=== PATIENT | female | born 1970 | race Caucasian/White ===

== ENCOUNTER 2019-12-19 11:19 | Emergency (ER) | payer MEDICAID, SELFPAY ==
--- NOTE | 2019-12-19 | ECG_ITS ---
Test Reason : HYPERGLYCEMIA Blood Pressure : / mmHG Vent. Rate : 067 BPM Atrial Rate : 067 BPM P-R Int : 206 ms QRS Dur : 090 ms QT Int : 404 ms P-R-T Axes : 052 -33 033 degrees QTc Int : 426 ms Normal sinus rhythm Left axis deviation Abnormal ECG When compared with ECG of 12-JUL-2019 10:59, QRS axis Shifted left Referred By: Zee Delacruz Electronically Signed By:MEGA DE LEON
[2019-12-19 11:25] VITALS: BP 101/65; BP 138/80; PULSE 68; PULSE 69; RESP 16; TEMP 37.3; O2SAT 94; O2SAT 99; BMI 51.7
--- NOTE | 2019-12-19 11:48 | ED_ITS ---
HPI - Abdominal Pain General Chief Complaint: Abdominal Pain Stated Complaint: hyperglycemia Time Seen by Provider: 12/19/19 11:48 Source: patient Mode of arrival: ambulatory Limitations: no limitations History of Present Illness HPI narrative: sent from Cardiology office BS have been elevated due to steroid injections in back has been running high since yesterday, has known AAA - repair on 01/01 but the patient continues to c/o pain and the patient notes that they want to work her up for gallstones vs stone in pancreas and also control blood sugars MD elicited complaint: abdominal pain Onset (ago): week(s) (2) Pain Consistency: constant Location: epigastric, periumbilical and LUQ Severity: moderate Quality: cramping Migration to: no migration Exacerbating factors: movement Relieving factors: nothing Related Data Previous Rx's Medication Instructions Recorded cyclobenzaprine 10 mg PO TID PRN #14 tab 12/19/19 insulin glargine [Lantus Solostar 20 unit SUBCUT QPM #15 ml 12/19/19 U-100 Insulin] Allergies Allergy/AdvReac Type Severity Reaction Status Date / Time haloperidol [From HALDOL] Allergy Unknown UNKNOWN Unverified 12/05/19 19:46 morphine [MORPHINE] Allergy Unknown UNKNOWN Unverified 12/05/19 19:46 tetracycline Allergy Unknown hives Verified 11/07/19 00:00 duramorph/derivative or Allergy Unknown hives Uncoded 11/07/19 00:00 morphi Review of Systems Review of Systems Constitutional : No Weight loss, No Fever, No Chills ENT/Mouth :No sore throat, No Rhinorrhea Eyes: No Eye Pain, No Swelling Cardiovascular : No Chest Pain, No SOB, No Dyspnea on Exertion, No Orthopnea, No Edema Respiratory : No Cough, No Sputum Gastrointestinal : Positive Nausea, Positive Vomiting, positive Diarrhea, po sitive abdominal Pain, No Hematochezia, No Melena Genitourinary : No Dysuria, No Urinary Frequency No Urgency, No Flank Pain Musculoskeletal : No joint pain, No Myalgias, No Joint Swelling Skin : No Skin Lesions, No rash Neuro : No Weakness, No Numbness, No Headache Psych : No Anxiety/Panic, No Depression Heme/Lymph: No Bruising, No Bleeding,No Lymphadenopathy Endocrine : + elevated blood sugars reading HI Physical Exam Vital Signs and I&O and Narrative: Vital Signs and I&O: Vital Signs Temp 99.1 F 12/19/19 11:25 Pulse 69 12/19/19 11:25 Resp 16 12/19/19 11:25 BP 101/65 12/19/19 11:25 Pulse Ox 94 12/19/19 11:25 Intake & Output 12/18/19 12/19/19 12/19/19 18:59 06:59 18:59 Weight 145.367 kg Body Mass Index 51.7 Const: General: cooperative and no acute distress Nutritional Appearance: obese Orientation/consciousness: patient oriented x3 HENMT: Head: Yes normal to inspection Mouth: Normal oral and palatal mucosa present Eyes: General: appearance normal, both eyes and all related structures Pupils: Equal, round and reactive pupils present Neck: Neck: Yes normal visual inspection Resp: Effort & Inspection: normal respiratory effort and able to speak in complete sentences Auscultation: clear to auscultation bilaterally Cardio: Rate: regular rate Rhythm: regular rhythm Peripheral pulses: Peripheral pulses 2+ throughout GI: Palpation (GI): Soft to palpation and Tenderness to palpation present (GI) (mild RUQ no rebound or guarding) Skin: General skin exam: no rashes or lesions noted Neuro: General: patient oriented x3 Cranial nerves: Yes Equal, round and reactive pupils present Motor exam (neuro): 5/5 motor strength present throughout Sensory Exam: Normal double simultaneous stimulation for sensation Extrem: General: Yes no pedal edema Psych: Appearance: grossly normal Mental Status: mental status grossly normal Course Reevaluation(s) Reevaluation #1: appropriate response to insulin down to 300s, no signs of GB infection, not toxic, wants to eat, will discuss with CM for home VNA services for diabetic teaching, I do not think she has the ability to do sliding scale at this time, will start on 20 units lantus and continue metformin, she has glucometer and test strips at home MDM - Abdominal Pain MDM Narrative Medical decision making narrative: patient with known aortic aneurysm due for repair but her BS have been elevated and she c/o epigastric and RUQ pain sent for BBS control as well as CT scan to evaluate for cholecystitis vs pancreatic duct stone, she is not toxic, abdomen is not acute at this time, IVF, IV insulin, dispo per results and findings Lab Data Result diagrams: 12/19/19 13:03 12/19/19 13:03 Labs: Lab Results 12/19/19 12/19/19 12/19/19 Range/Units 11:49 13:03 13:03 WBC 6.4 (4.8-10.8) X10*3/uL RBC 5.26 (4.20-5.50) X10*6/uL Hgb 14.3 (12.0-16.0) g/dl Hct 45.3 (37-47) % MCV 86.1 (80-98) fL MCH 27.2 (27.0-33.0) pg MCHC 31.6 (31.0-35.0) g/dl RDW 13.8 (11.0-16.0) % Plt Count 294 (160-400) X10*3/uL Immature Gran % (Auto) 1.7 H (0.0-0.4) % Neut % (Auto) 54.4 (45-73) % Lymph % (Auto) 31.0 (20-40) % Luce % (Auto) 10.1 (2-11) % Eos % (Auto) 1.9 (0-4) % Baso % (Auto) 0.9 (0-2) % Neut # (Auto) 3.5 (2.0-8.3) X10*3/uL Lymph # (Auto) 2.0 (1.2-4.9) X10*3/uL Luce # (Auto) 0.7 (0.1-1.2) X10*3/uL Eos # (Auto) 0.1 (0.0-0.4) X10*3/uL Baso # (Auto) 0.1 (0.0-0.2) X10*3/uL Abs Immat Gran (auto) 0.11 H (0.00-0.03) X10*3/uL Absolute Nucleated RBC 0.050 H (0.0-0.012) X10*3/uL Nucleated RBC % (auto) 0.8 H (0.0-0.2) /100WBC Hold Blue Top SEE NOTE Sodium (135-145) mmol/L Potassium (3.3-5.1) mmol/l Chloride (96-108) mmol/L Carbon Dioxide (22-29) mmol/L Anion Gap (12-20) BUN (9-16) mg/dL Creatinine (0.5-1.4) mg/dL Estim Creat Clear Calc Estimated GFR POC Glucose 598 H* (60-115) mg/dL Random Glucose (60-115) mg/dL Lactic Acid (0.5-2.0) mmol/L Calcium (8.4-10.2) mg/dL Magnesium (1.6-2.6) mg/dL Total Bilirubin (0.0-1.0) mg/dL Direct Bilirubin (0.0-0.5) mg/dL AST (5-31) U/L ALT (0-31) U/L Alkaline Phosphatase (39-117) U/L Total Protein (6.5-8.0) g/dL Albumin (3.5-5.0) g/dL Lipase (8-78) U/L Urine Color Urine Appearance Urine pH (5.0-8.0) Ur Specific [place] (1.005-1.025) Urine Protein (NEG-TRACE) MG/DL Urine Glucose (UA) (NEG) MG/DL Urine Ketones (NEG) MG/DL Urine Blood (NEG) Urine Nitrite (NEG) Ur Leukocyte Esterase (NEG) Urine RBC (0) /HPF Urine WBC (0-4) /HPF Ur Squamous Epith Cells /LPF Urine Bacteria /LPF Urine Yeast /HPF Acetone, Qual (Negative) 12/19/19 12/19/19 12/19/19 Range/Units 13:03 13:03 13:13 WBC (4.8-10.8) X10*3/uL RBC (4.20-5.50) X10*6/uL Hgb (12.0-16.0) g/dl Hct (37-47) % MCV (80-98) fL MCH (27.0-33.0) pg MCHC (31.0-35.0) g/dl RDW (11.0-16.0) % Plt Count (160-400) X10*3/uL Immature Gran % (Auto) (0.0-0.4) % Neut % (Auto) (45-73) % Lymph % (Auto) (20-40) % Luce % (Auto) (2-11) % Eos % (Auto) (0-4) % Baso % (Auto) (0-2) % Neut # (Auto) (2.0-8.3) X10*3/uL Lymph # (Auto) (1.2-4.9) X10*3/uL Luce # (Auto) (0.1-1.2) X10*3/uL Eos # (Auto) (0.0-0.4) X10*3/uL Baso # (Auto) (0.0-0.2) X10*3/uL Abs Immat Gran (auto) (0.00-0.03) X10*3/uL Absolute Nucleated RBC (0.0-0.012) X10*3/uL Nucleated RBC % (auto) (0.0-0.2) /100WBC Hold Blue Top Sodium 131 L (135-145) mmol/L Potassium 4.9 (3.3-5.1) mmol/l Chloride 93 L (96-108) mmol/L Carbon Dioxide 28 (22-29) mmol/L Anion Gap 15 (12-20) BUN 13 (9-16) mg/dL Creatinine 1.24 (0.5-1.4) mg/dL Estim Creat Clear Calc 82.0 Estimated GFR 46 POC Glucose (60-115) mg/dL Random Glucose 694 H* (60-115) mg/dL Lactic Acid 1.1 (0.5-2.0) mmol/L Calcium 9.5 (8.4-10.2) mg/dL Magnesium 2.1 (1.6-2.6) mg/dL Total Bilirubin 0.2 (0.0-1.0) mg/dL Direct Bilirubin < 0.2 (0.0-0.5) mg/dL AST 12 (5-31) U/L ALT 13 (0-31) U/L Alkaline Phosphatase 101 (39-117) U/L Total Protein 7.1 (6.5-8.0) g/dL Albumin 3.7 (3.5-5.0) g/dL Lipase 22 (8-78) U/L Urine Color YELLOW Urine Appearance CLEAR Urine pH 6.0 (5.0-8.0) Ur Specific [place] <= 1.005 (1.005-1.025) Urine Protein NEG (NEG-TRACE) MG/DL Urine Glucose (UA) >=1000 H (NEG) MG/DL Urine Ketones 15 (NEG) MG/DL Urine Blood TRACE (NEG) Urine Nitrite NEG (NEG) Ur Leukocyte Esterase NEG (NEG) Urine RBC 5-9 H (0) /HPF Urine WBC 5-9 H (0-4) /HPF Ur Squamous Epith Cells 1+ /LPF Urine Bacteria TRACE /LPF Urine Yeast TRACE /HPF Acetone, Qual Small H (Negative) 12/19/19 12/19/19 Range/Units 14:06 15:35 WBC (4.8-10.8) X10*3/uL RBC (4.20-5.50) X10*6/uL Hgb (12.0-16.0) g/dl Hct (37-47) % MCV (80-98) fL MCH (27.0-33.0) pg MCHC (31.0-35.0) g/dl RDW (11.0-16.0) % Plt Count (160-400) X10*3/uL Immature Gran % (Auto) (0.0-0.4) % Neut % (Auto) (45-73) % Lymph % (Auto) (20-40) % Luce % (Auto) (2-11) % Eos % (Auto) (0-4) % Baso % (Auto) (0-2) % Neut # (Auto) (2.0-8.3) X10*3/uL Lymph # (Auto) (1.2-4.9) X10*3/uL Luce # (Auto) (0.1-1.2) X10*3/uL Eos # (Auto) (0.0-0.4) X10*3/uL Baso # (Auto) (0.0-0.2) X10*3/uL Abs Immat Gran (auto) (0.00-0.03) X10*3/uL Absolute Nucleated RBC (0.0-0.012) X10*3/uL Nucleated RBC % (auto) (0.0-0.2) /100WBC Hold Blue Top Sodium (135-145) mmol/L Potassium (3.3-5.1) mmol/l Chloride (96-108) mmol/L Carbon Dioxide (22-29) mmol/L Anion Gap (12-20) BUN (9-16) mg/dL Creatinine (0.5-1.4) mg/dL Estim Creat Clear Calc Estimated GFR POC Glucose 495 H* 388 H* (60-115) mg/dL Random Glucose (60-115) mg/dL Lactic Acid (0.5-2.0) mmol/L Calcium (8.4-10.2) mg/dL Magnesium (1.6-2.6) mg/dL Total Bilirubin (0.0-1.0) mg/dL Direct Bilirubin (0.0-0.5) mg/dL AST (5-31) U/L ALT (0-31) U/L Alkaline Phosphatase (39-117) U/L Total Protein (6.5-8.0) g/dL Albumin (3.5-5.0) g/dL Lipase (8-78) U/L Urine Color Urine Appearance Urine pH (5.0-8.0) Ur Specific [place] (1.005-1.025) Urine Protein (NEG-TRACE) MG/DL Urine Glucose (UA) (NEG) MG/DL Urine Ketones (NEG) MG/DL Urine Blood (NEG) Urine Nitrite (NEG) Ur Leukocyte Esterase (NEG) Urine RBC (0) /HPF Urine WBC (0-4) /HPF Ur Squamous Epith Cells /LPF Urine Bacteria /LPF Urine Yeast /HPF Acetone, Qual (Negative) ECG Data Attestation: I personally reviewed and interpreted this ECG as follows: ECG interpretation date: 12/19/19 ECG interpretation time: 12:47 Interpretation: NSR at 67 normal p waves 1st degree AVB, normal qrs, left axis, no ischemia, normal ST t waves Discharge Plan Discharge Clinical Impression: Gallstones, Hyperglycemia Patient Disposition: Home, Self-Care Instructions: Gallstones (ED), Diabetic Hyperglycemia (ED) Additional Instructions: check your blood sugars before every meal and hour of sleep, continue your medications, will start on lantus injection to control blood sugars, you need to see your doctor and [employer]. if you feel weak and shaky check your blood sugar and eat a sugary carbohydrate meal, call 911, start your lantus tomorrow night 12/19 Prescriptions: New Lantus Solostar U-100 Insulin 100 unit/mL (3 mL) insulin pen 20 unit subcut QPM Qty: 15 RF: 1 cyclobenzaprine 10 mg tablet 10 mg PO TID PRN (Reason: muscle spasm) Qty: 14 RF: 0 Referrals: [place] [Primary Care Provider] - 12/23/19 [facility] Past Medical History Attestation statement: The following information was validated with the patient. Medical History ADHD Aortic aneurysm Arthritis Asthma Diabetes Gallstone HTN (hypertension) Migraine PTSD (post-traumatic stress disorder) Schizo affective schizophrenia Sleep apnea Umbilical hernia Surgical History Tubal ligation status Social History Social History Alcohol intake: former Smoking Status: Current every day smoker Smoked in Last 30 Days: Yes Use of substances other than those prescribed or required for medical reasons: No Any prior treatment program specific to substance use: No Advance Directives: No Advance Directives Information Provided: No
[2019-12-19 12:40] LABS: Glucose, Whole Blood 598 mg/dL (60-115)
[2019-12-19] MEDS: ondansetron HCL 4 MG/2 ML VIAL IVPUSH (13:22)
[2019-12-19 13:24] LABS: Glucose Urine UA >=1000 MG/DL (NEG); Leukocyte Esterase Urine NEG (NEG); Nitrite Urine NEG (NEG); Specific Gravity - Urine <= 1.005 (1.005-1.025); Urine Blood TRACE (NEG); Urine Ketones 15 MG/DL (NEG); Urine Protein NEG (NEG-TRACE)
[2019-12-19 13:25] LABS: Appearance Urine CLEAR; Color Urine YELLOW
[2019-12-19 13:25] LABS: MANUAL DIFF FLAG SCAN
[2019-12-19 13:27] LABS: Basophils Absolute Auto 0.1 X10*3/uL (0.0-0.2); Basophils Percent Auto 0.9 % (0-2); Eosinophils Absolute Auto 0.1 X10*3/uL (0.0-0.4); Eosinophils Percent Auto 1.9 % (0-4); Hematocrit 45.3 % (37-47); Hemoglobin 14.3 g/dl (12.0-16.0); Imm Gran Abs Auto 0.11 X10*3/uL (0.00-0.03); Imm Gran Pct Auto 1.7 % (0.0-0.4); Mean Corpuscular HGB Conc 31.6 g/dl (31.0-35.0); Mean Corpuscular Hemoglobin 27.2 pg (27.0-33.0); Mean Corpuscular Volume 86.1 fL (80-98); Monocytes Absolute Auto 0.7 X10*3/uL (0.1-1.2); Monocytes Percent Auto 10.1 % (2-11); NRBC Pct Auto 0.8 /100WBC (0.0-0.2); Neutrophils Absolute Auto 3.5 X10*3/uL (2.0-8.3); Neutrophils Percent Auto 54.4 % (45-73); Platelet Count 294 X10*3/uL (160-400); Red Blood Count 5.26 X10*6/uL (4.20-5.50); Red Cell Distribution Width 13.8 % (11.0-16.0); White Blood Count 6.4 X10*3/uL (4.8-10.8)
[2019-12-19 13:32] LABS: PLT ABN DIST 1
[2019-12-19 13:33] LABS: SCAN SMEAR FLAG NO
[2019-12-19 13:49] LABS: Squamous Epithelial Cell Urine 1+ /LPF; UACC CULT YES
[2019-12-19 13:52] LABS: Lactic Acid 1.1 mmol/L (0.5-2.0)
[2019-12-19 14:03] LABS: Alanine Aminotransferase 13 U/L (0-31); Albumin Level 3.7 g/dL (3.5-5.0); Alkaline Phosphatase 101 U/L (39-117); Anion Gap 15 (12-20); Aspartate Amino Transferase 12 U/L (5-31); Bilirubin Direct < 0.2 mg/dL (0.0-0.5); Bilirubin Total 0.2 mg/dL (0.0-1.0); Blood Urea Nitrogen 13 mg/dL (9-16); Calcium 9.5 mg/dL (8.4-10.2); Carbon Dioxide 28 mmol/L (22-29); Chloride 93 mmol/L (96-108); Estimated Glomerular Filt Rate 46; Glucose Random 694 mg/dL (60-115); Lipase 22 U/L (8-78); Magnesium 2.1 mg/dL (1.6-2.6); Potassium 4.9 mmol/l (3.3-5.1); Sodium 131 mmol/L (135-145); Total Protein 7.1 g/dL (6.5-8.0)
[2019-12-19 14:09] LABS: Glucose, Whole Blood 495 mg/dL (60-115)
--- NOTE | 2019-12-19 15:00 | CT_ITS ---
EXAMINATION: CT OF THE ABDOMEN AND PELVIS WITHOUT IV CONTRAST CLINICAL INFORMATION: Abdominal pain COMPARISON: Previous CT of the abdomen and pelvis 12/16/2019 TECHNIQUE: Axial images through the abdomen and pelvis without oral or IV contrast. Sagittal and coronal reconstructions on the technologist workstation were performed. Patient dose 128 7 mg/cm. This CT examination was performed using dose optimization techniques as appropriate, variously including the following: *Automated exposure control *Adjustment of mA and/or kV according to patient size (this includes techniques or standardized protocols for targeted exams where dose is matched to indication/reason for exam; i.e. extremities or head) *Use of iterative reconstruction technique FINDINGS: The lung bases are clear. LIVER, GALLBLADDER, AND BILIARY TREE: Liver is within normal size and smooth in contour. There is no focal hepatic parenchymal lesion or intrahepatic ductal dilatation. There is a large gallstone in the gallbladder. The gallbladder does not appear distended. No gallbladder wall thickening or pericholecystic fluid is seen. PANCREAS: Unremarkable. SPLEEN: Normal in size. Several small splenules left upper quadrant, all under 1 cm. ADRENAL GLANDS: Unremarkable. KIDNEYS AND URETERS: The kidneys are normal in size, shape, and attenuation. No hydronephrosis, hydroureter, or calculi seen. No perinephric stranding. BLADDER: Unremarkable. GASTROINTESTINAL TRACT: There is no bowel obstruction or inflammatory changes in the bowel or mesentery. The appendix is normal. There is no ascites or fluid collection. ABDOMINAL WALL: There is a small umbilical hernia containing fat. There are small inguinal hernias containing fat, left greater than right.. LYMPH NODES: No lymphadenopathy. VASCULAR: There is tortuous abdominal aorta with infrarenal abdominal aortic aneurysm again demonstrated measuring approximately 4.7 x 4.8 cm. This is similar to previous exam. The adjacent soft tissues are normal. PELVIC VISCERA: Unremarkable. OSSEOUS STRUCTURES: No acute bony abnormality. IMPRESSION: Stable appearance to the abdominal aortic aneurysm. Large gallstone in the gallbladder. No CT evidence of cholecystitis.
[2019-12-19 15:27] LABS: Acetone, serum QL Small (Negative)
[2019-12-19 15:33] LABS: Bacteria Urine TRACE /LPF
[2019-12-19 15:40] LABS: Glucose, Whole Blood 388 mg/dL (60-115)
[2019-12-19] MEDS: 0.9 % Sodium Chloride 500 ML 1000 ML IV (15:58)
--- NOTE | 2019-12-19 16:40 | MHC.CM.PN ---
Received case management consult from Dr Delacruz. Patient came to er due to hyperglycemia. Patient was recently diagnosed as diabetic. Met with patient in regards to d/c planning. Patient lives alone, ambulates with a walker/cane, and had no services prior to coming to ER. [place] [facility] [place]. Patient is agreeable to VNA referral. [employer] is down at this time. Will reach out to VNA agencies tomorrow to get VNA arranged. Dr Delacruz aware. Continue to monitor for d/c needs.
[2019-12-19] MEDS: Insulin Glargine,Hum.rec.anlog 100 UNIT/ML 10 ML VIAL 20 UNIT SUBCUT (16:50)
--- NOTE | 2019-12-19 17:50 | PC.NURSE ---
PT FEELING BETTER PLAN IS FOR DISCHARGE
[2019-12-19 17:56] LABS: Glucose, Whole Blood 346 mg/dL (60-115)
--- NOTE | 2019-12-20 09:17 | MHC.CM.ED ---
[facility] Referral broadcasted in [facility] [employer]. [facility] accept patient. . fax: [phone].
--- NOTE | 2019-12-20 10:01 | MHC.CM.ED ---
Received telephone call from [facility]. Patient's insurance will not authorize home care. Anjali at [facility] aware and will follow with up patient.
== END 2019-12-19 18:41 | disposition home or self-care (01) ==
PROVIDERS: Emergency Provider Emergency Medicine
DX: K80.80 Other cholelithiasis without obstruction (principal); E11.65 Type 2 diabetes mellitus with hyperglycemia; I10 Essential (primary) hypertension; F17.200 Nicotine dependence, unspecified, uncomplicated
CPT/HCPCS: 36415; 74176; 80048; 80076; 81001; 82009; 82947; 83605; 83690; 83735; 85025; 87086; 93005; 93010; 96374; 96375; 96376; 99284; 99285; J2405

== ENCOUNTER → 2020-01-02 13:15 | Outpatient (BNVA) | payer MEDICAID, SELFPAY | PROVIDERS: PCP Registered Nurse; Visit Provider Surgery Vascular Surgery | DX: I71.4 Abdominal aortic aneurysm, without rupture (principal) | CPT/HCPCS: 99203 ==

== ENCOUNTER 2020-01-11 07:52 | Emergency (ER) | payer MEDICAID, SELFPAY ==
[2020-01-11 08:00] VITALS: BP 102/67; BP 112/76; PULSE 84; RESP 18; TEMP 37; O2SAT 94; O2SAT 95; BMI 53.4
--- NOTE | 2020-01-11 08:40 | XR_ITS ---
EXAMINATION: XR TIBIA AND FIBULA, RIGHT CLINICAL INFORMATION: Right leg pain status post fall. COMPARISON: None TECHNIQUE: AP and lateral views of the right tibia and fibula were obtained. FINDINGS: There is a nondisplaced oblique spiral type fracture of the proximal fibular metadiaphysis. Mild proximal tibiofibular degenerative joint changes are seen. Mild to moderate right knee degenerative joint changes are seen. The distal fibula and tibia are intact. A round BB overlies the posterior soft tissues of the mid calf without surrounding abnormality. XR/XR tibia fibula RT 2V IMPRESSION: 1. Acute, spiral type fracture of the proximal fibular metadiaphysis without significant displacement. 2. Rounded BB overlying the posterior soft tissues of the mid calf without associated abnormality. 3. Mild to moderate right knee and proximal tibiofibular degenerative joint changes.
--- NOTE | 2020-01-11 08:40 | XR_ITS ---
EXAMINATION: XR FOOT, RIGHT CLINICAL INFORMATION: Right foot pain status post fall. COMPARISON: None TECHNIQUE: AP, lateral, and oblique views of the right foot. FINDINGS: There is no acute fracture or dislocation. The tarsal bones are normally aligned. Small plantar and retrocalcaneal spurs are seen. There is mild soft tissue swelling. XR/XR foot RT min 3V IMPRESSION: Mild soft tissue swelling and small degenerative calcaneal spurs. No acute fracture.
[2020-01-11 09:16] VITALS: PULSE 71; RESP 18; O2SAT 94
[2020-01-11] MEDS: traMADoL HCL 50 MG TABLET PO (09:18)
--- NOTE | 2020-01-11 10:45 | PC.NURSE ---
PATIENT WITH FX R FIBULA. MLP AWARE. PLAN IS TO SPLINT AND DC HOME WITH PAIN MEDS AND CRUTCHES. PT DECLINES REHAB.
--- NOTE | 2020-01-11 11:01 | ED_ITS ---
HPI - Extremity Injury (Lower) General Chief Complaint: Extremity Injury, Lower Stated Complaint[facility],KNEE PAIN Time Seen by Provider: 01/11/20 08:31 Source: patient and EMS Mode of arrival: EMS Limitations: no limitations History of Present Illness HPI Narrative: 49-year-old female presenting to the ED via EMS after she sustained a fall while walking down her stairs she reports her knees lock up and today her knee locked up and she went down a few steps possibly 6 twisting her right knee/leg/ankle/foot. Denies head injury or loss of consciousness or being on any blood thinners. Denies any other injuries complaints or concerns at this time. Related Data Home Medications Medication Instructions Recorded Confirmed amitriptyline 10 mg PO BEDTIME 01/10/20 01/10/20 atenolol 25 mg PO DAILY 01/10/20 01/10/20 atorvastatin 20 mg PO BEDTIME 01/10/20 01/10/20 benztropine 1 mg PO TID 01/10/20 01/10/20 budesonide-formoterol [Symbicort] 2 puff INHALATION BID 01/10/20 01/10/20 divalproex 500 mg PO BID 01/10/20 01/10/20 ergocalciferol (vitamin D2) 1,250 mcg PO QWEEK 01/10/20 01/10/20 [Vitamin D2] escitalopram oxalate 10 mg PO DAILY 01/10/20 01/10/20 famotidine 20 mg PO BID 01/10/20 01/10/20 folic acid 1 mg PO DAILY 01/10/20 01/10/20 glimepiride 3 mg PO DAILY 01/10/20 01/10/20 insulin glargine [Lantus Solostar 26 unit SUBCUT QPM 01/10/20 01/10/20 U-100 Insulin] levothyroxine 137 mcg PO DAILY 01/10/20 01/10/20 lisinopril 10 mg PO DAILY 01/10/20 01/10/20 montelukast 10 mg PO BEDTIME 01/10/20 01/10/20 multivitamin 1 tab PO DAILY 01/10/20 01/10/20 olanzapine 15 mg PO BEDTIME 01/10/20 01/10/20 thiamine HCl (vitamin B1) 100 mg PO DAILY 01/10/20 01/10/20 tiotropium bromide [Spiriva with 1 cap INHALATION DAILY 01/10/20 01/10/20 HandiHaler] tramadol 50 mg PO TID PRN 01/10/20 01/10/20 trazodone 150 mg PO BEDTIME 01/10/20 01/10/20 Previous Rx's Medication Instructions Recorded oxycodone-acetaminophen [Percocet] 1 tab PO Q6H PRN #14 tab NS 01/11/20 Allergies Allergy/AdvReac Type Severity Reaction Status Date / Time metformin Allergy Intermediate Diarrhea Verified 01/10/20 09:45 morphine [MORPHINE] Allergy Intermediate Hives Verified 01/10/20 09:45 tetracycline Allergy Intermediate hives Verified 01/10/20 09:45 haloperidol [From HALDOL] AdvReac Intermediate Irritable Verified 01/10/20 09:45 duramorph/derivative or Allergy Intermediate hives Uncoded 01/10/20 09:45 morphi Review of Systems Review of Systems: Constitutional : No Fever, No Chills, No fatigue Eyes: No Eye Pain, No Swelling, No Foreign Body, No Discharge, No Vision Changes Cardiovascular : No Chest Pain, No SOB, No Dyspnea on Exertion, No Orthopnea, No Edema, No Palpitations Respiratory : No Cough, No Sputum, No Wheezing, No Smoke Exposure, No Dyspnea Gastrointestinal : No Nausea, No Vomiting, No Diarrhea, No abdominal Pain Genitourinary : No Dysuria, No Urinary Frequency, No Hematuria, No Urinary Incontinence, No Urgency, No Flank Pain, No Hesitancy Musculoskeletal : No Myalgias, Skin : No Skin Lesions, No rash Neuro : No Weakness, No Numbness, No Paresthesias, No Loss of Consciousness, No Dizziness, No Headache, Psych : No Anxiety/Panic, No Depression, No SI/HI/AH/VH, No Social Issues, Heme/Lymph: No Lymphadenopathy Yes all other systems are reviewed and are negative [facility] Past Medical History Attestation statement: The following information was validated with the patient. Medical History ADHD Aortic aneurysm Arthritis Asthma Back pain Depression Diabetes Gallstone GERD (gastroesophageal reflux disease) Hepatitis Hernia History of posttraumatic stress disorder (PTSD) HTN (hypertension) Hx of fracture of patella Migraine Morbid obesity Myocardial infarction PTSD (post-traumatic stress disorder) Schizo affective schizophrenia Sleep apnea Umbilical hernia Surgical History History of incision and drainage Hx of knee surgery Hx of tubal ligation Tubal ligation status Social History Social History Alcohol intake: former Smoking Status: Current every day smoker Packs Per Day: 0.5 Cigarettes Per Day: 10.0 Years Smoked: 35 Advance Directives: No Advance Directives Information Provided: No Physical Exam Vital Signs: Vital Signs: Vital Signs Temp Pulse Resp BP Pulse Ox 01/11/20 11:18 98.7 F 16 96 01/11/20 09:16 71 18 94 01/11/20 08:00 98.6 F 84 18 102/67 95 Body Mass Index 53.4 vital signs have been reviewed as normal and appeared to be correct. Blood pressure normal. Heart rate normal. Respiration rate normal. Temperature normal. Oxygen saturation normal. Appearance: Alert. Oriented X3. No acute distress. Head: Normal external exam. Normocephalic. Atraumatic. No Henderson signs noted. No raccoon eyes noted Eyes: PERRLA. EOMI. Conjunctiva and sclera normal. Eyelids normal. ENT: EAC normal. TM's Normal. Pharynx normal. Uvula midline. Moist mucous membranes. No trismus noted. No drooling noted. No muffled voice noted. Neck: Normal inspection. Neck supple. FROM. No adenopathy. Thyroid Normal. No meningeal signs. No neck mass noted. CVS: Normal heart rate and rhythm. Heart sound normal. No murmurs noted. Pulses normal throughout. Respiratory: No respiratory distress. Painless inspiration. Breath sounds normal. No wheezes/rales/rhonchi noted. Chest nontender. No accessory muscle usage noted or decreased air movement noted. Abdomen: Soft and nontender. Bowel sounds normal in all 4 quadrants. No distention noted. No organomegaly noted. No visible injury noted. Back: No CVA tenderness. Full range of motion noted. Skin: Skin warm and dry. Normal skin color. Normal skin turgor. No rashes/lesions/lacerations noted. Extremities: Right knee with superficial abrasion no active bleeding no foreign bodies noted with mild tenderness to palpation at the lateral aspect. Tenderness to palpation at the proximal aspect of the right lower extremity with mild soft tissue swelling. No obvious deformities noted. Patient tender to palpation to right ankle at the medial aspect with mild soft tissue swelling no obvious deformities noted. Patient has full range of motion. All tendons and ligaments intact to the right lower extremity. No lower extremity edema. All other Extremities exhibit normal range of motion and nontender. Neuro: Oriented X 3. No motor deficit. No sensory deficit. Reflexes normal. Course Course Course Narrative: 49-year-old female presenting to the ED via EMS after she sustained a fall while walking down her stairs she reports her knees lock up and today her knee locked up and she went down a few steps possibly 6 twisting her right knee/leg/ankle/foot. Denies head injury or loss of consciousness or being on any blood thinners. Denies any other injuries complaints or concerns at this time. - Xray imaging obtained and revealed fracture to right fibular nondisplaced. - will placed in a posterior long-leg splint and placed in crutches in [place] home with symptomatic treatment. I did offer PT/case management although patient refused. Will DC home with instructions to follow up with Orthopedics to call tomorrow for follow-up within 1 week. Patient understands agrees the plan. Procedures Orthopedic Splinting/Casting Injury #1: Side: right Lower Extremity Injury Location: lower leg Lower Extremity Immobilizer: posterior splint Other Orthopedic Equipment: crutches MDM - Extremity Injury (Lower) Medical Records Attestation: I reviewed the patient's medical records. Imaging Data right lower leg: Attestation: I personally reviewed and interpreted this imaging study as follows: Radiologist's impression: IMPRESSION: 1. Acute, spiral type fracture of the proximal fibular metadiaphysis without significant displacement. 2. Rounded BB overlying the posterior soft tissues of the mid calf without associated abnormality. 3. Mild to moderate right knee and proximal tibiofibular degenerative joint changes. Discharge Plan Discharge Clinical Impression: Fall, Closed fibular fracture Patient Disposition: Home, Self-Care Instructions: Leg Fracture (ED), Crutch Instructions (ED), Splint Care (ED) Prescriptions: New oxycodone-acetaminophen [Percocet] 5-325 mg tablet 1 tab PO Q6H PRN (Reason: pain) Qty: 14 RF: 0 No Action multivitamin Tablet 1 tab PO DAILY RF: 0 levothyroxine 137 mcg Tablet 137 mcg PO DAILY RF: 0 atorvastatin 20 mg Tablet 20 mg PO BEDTIME RF: 0 atenolol 25 mg Tablet 25 mg PO DAILY RF: 0 thiamine HCl (vitamin B1) 100 mg Tablet 100 mg PO DAILY RF: 0 divalproex 500 mg Tablet,Delayed Release (Dr/Ec) 500 mg PO BID RF: 0 tramadol 50 mg Tablet 50 mg PO TID PRN (Reason: Pain) RF: 0 glimepiride 2 mg Tablet 3 mg PO DAILY RF: 0 famotidine 20 mg Tablet 20 mg PO BID RF: 0 amitriptyline 10 mg Tablet 10 mg PO BEDTIME RF: 0 trazodone 150 mg Tablet 150 mg PO BEDTIME RF: 0 lisinopril 10 mg Tablet 10 mg PO DAILY RF: 0 benztropine 1 mg Tablet 1 mg PO TID RF: 0 folic acid 1 mg Tablet 1 mg PO DAILY RF: 0 montelukast 10 mg Tablet 10 mg PO BEDTIME RF: 0 olanzapine 15 mg Tablet 15 mg PO BEDTIME RF: 0 ergocalciferol (vitamin D2) [Vitamin D2] 1,250 mcg (50,000 unit) Capsule 1,250 mcg PO QWEEK RF: 0 escitalopram oxalate 10 mg Tablet 10 mg PO DAILY RF: 0 Spiriva with HandiHaler 18 mcg Capsule, W/Inhalation Device 1 cap INHALATION DAILY RF: 0 budesonide-formoterol [Symbicort] 160-4.5 mcg/actuation Hfa Aerosol Inhaler 2 puff INHALATION BID RF: 0 Lantus Solostar U-100 Insulin 100 unit/mL (3 mL) Insulin Pen 26 unit SUBCUT QPM RF: 0 Referrals: Jessica Begum MD [Physician] - 2 days Print Language: Jordanian
[2020-01-11 11:18] VITALS: RESP 16; TEMP 37.1; O2SAT 96
[2020-01-11 14:00] VITALS: BP 101/66; PULSE 78; RESP 20; O2SAT 95
[2020-01-11] MEDS: oxyCODONE HCl Immed Release 5 MG TABLET PO (14:10)
== END 2020-01-11 14:30 | disposition home or self-care (01) ==
PROVIDERS: Emergency Provider Emergency Medicine; PCP Registered Nurse
DX: S82.401A Unspecified fracture of shaft of right fibula, initial encounter for closed fracture (principal); M79.604 Pain in right leg; M79.671 Pain in right foot; W10.9XXA Fall (on) (from) unspecified stairs and steps, initial encounter; Y93.9 Activity, unspecified; Y92.009 Unspecified place in unspecified non-institutional (private) residence as the place of occurrence of the external cause; F17.200 Nicotine dependence, unspecified, uncomplicated; Z71.6 Tobacco abuse counseling; Z79.899 Other long term (current) drug therapy
CPT/HCPCS: 29505; 73590; 73630; 99283; 99284

== ENCOUNTER 2020-01-20 13:20 | Outpatient (REF) | payer MEDICAID, SELFPAY ==
--- NOTE | 2020-01-20 14:22 | XR_ITS ---
EXAMINATION: XR ANKLE, RIGHT CLINICAL INFORMATION: Right ankle pain. COMPARISON: Right foot 01/11/2020 TECHNIQUE: AP, lateral, and mortise views of the right ankle. FINDINGS: There is moderate lateral malleolar soft tissue swelling. The ankle mortise and subtalar joints are normal. There is a loose body anterior and medial to the distal tibia. XR/XR ankle RT min 3V IMPRESSION: Moderate lateral malleolar soft tissue swelling. No visible acute fracture, dislocation or subluxation seen.
== END 2020-01-20 13:21 | disposition home or self-care (01) ==
LOC: HO.HOSX 13:20
PROVIDERS: PCP Registered Nurse; Referring Provider Registered Nurse; Visit Provider Orthopaedic Surgery
DX: S82.409A Unspecified fracture of shaft of unspecified fibula, initial encounter for closed fracture (principal); I10 Essential (primary) hypertension; Z79.899 Other long term (current) drug therapy; Z79.4 Long term (current) use of insulin
CPT/HCPCS: 73610; 99212

== ENCOUNTER → 2020-01-29 13:22 | Outpatient (BNVA) | payer MEDICAID, SELFPAY | PROVIDERS: PCP Registered Nurse; Referring Provider Registered Nurse; Visit Provider Surgery | DX: Z76.89 Persons encountering health services in other specified circumstances (principal) ==

== ENCOUNTER → 2020-02-12 12:00 | Outpatient (BNVA) | payer MEDICAID, SELFPAY | PROVIDERS: PCP Nurse Practitioner Family; Referring Provider Nurse Practitioner Family; Visit Provider Internal Medicine | DX: Z76.89 Persons encountering health services in other specified circumstances (principal) ==

== ENCOUNTER 2020-05-27 13:31 | Outpatient (REF) | payer MEDICAID, SELFPAY ==
--- NOTE | ~2020-05-27 | MM_ITS ---
EXAMINATION: BONE DENSITOMETRY CLINICAL INDICATION: Screening for osteoporosis. COMPARISON: This is the patient's baseline examination. TECHNIQUE: Using a [employer] Back[employer] DXA System (software version: 13.1) manufactured by [employer], dual-energy x-ray absorptiometry was performed of the lumbar spine and left hip. The images are of good technical quality. Summary results are attached. FINDINGS: AP SPINE L1-L3 (excluding L4): The data of L1-L4 has been changed to exclude the L4 vertebral body, because increased degenerative sclerosis at this level may cause overestimation of lumbar spine density. BMD 1.095 g/cm2, Z-score -1.5, T-score -0.6, normal. LEFT FEMUR, NECK: BMD 0.695 g/cm2, Z-score -2.5, T-score -2.5, osteoporosis. LEFT FEMUR, TOTAL: BMD 0.797 g/cm2, Z-score -2.1, T-score -1.7, osteopenia. IDENTIFIED RISK FACTORS: Height loss, recurrent falls, tobacco use (current smoker), secondary osteoporosis. HISTORY OF FRACTURE: Other. MEDICATIONS: Calcium supplements or multivitamin, vitamin D. MM/XR DEXA axial skeleton IMPRESSION: 1. DIAGNOSIS: Osteoporosis based on the lowest T-score value of -2.5 in the femoral neck applying World Health Organization criteria. 2. 10-YEAR FRACTURE RISK PREDICTION, FRAX: Major osteoporotic fracture (clinical spine, forearm, hip or shoulder) 2.8%. Hip fracture 0.9%. 3. Treatment Recommendations: NOF guidelines recommend consideration for treatment in postmenopausal women and men age 50 and older presenting with the following: -A hip or vertebral (clinical or morphometric) fracture. -T-score less than or equal to -2.5 at the femoral neck or spine after appropriate evaluation to exclude secondary causes. -Low bone mass at the hip or spine and a 10-year fracture probability by FRAX of greater than or equal to 3% for hip fracture or greater than or equal to 20% for major osteoporotic fracture based on the [place] adapted WHO algorithm. 4. Other Recommendations: All treatment decisions require clinical judgment and consideration of individual patient factors, including patient preferences, comorbidities, previous drug use, risk factors not captured in the FRAX model (e.g. frailty, falls, vitamin D deficiency, increased bone turnover, interval significant decline in bone density) and possible under or overestimation of fracture risk by FRAX. Additional medical evaluation for secondary cause of low bone mineral density may be appropriate. FUTURE SCAN RECOMMENDATION: People with diagnosed cases of osteoporosis or at high risk for fracture should have regular bone mineral density tests. For patients eligible for Medicare, routine testing is allowed once every 2 years. The testing frequency can be increased to one year for patients who have rapidly progressing disease, those who are receiving or discontinuing medical therapy to restore bone mass, or have additional risk factors.
== END 2020-05-27 13:32 | disposition home or self-care (01) ==
LOC: HO.MAMMO 13:31
PROVIDERS: PCP Registered Nurse; Visit Provider Registered Nurse
DX: Z13.820 Encounter for screening for osteoporosis (principal); S93.05XA Dislocation of left ankle joint, initial encounter; X58.XXXA Exposure to other specified factors, initial encounter; Y93.9 Activity, unspecified; Y92.9 Unspecified place or not applicable; Y99.8 Other external cause status; R29.890 Loss of height; F17.200 Nicotine dependence, unspecified, uncomplicated; Z91.81 History of falling; Z87.81 Personal history of (healed) traumatic fracture
CPT/HCPCS: 77080

== ENCOUNTER 2020-08-10 08:23 | Emergency (ER) | payer MEDICAID, SELFPAY ==
[2020-08-10 08:34] VITALS: BP 105/76; PULSE 88; O2SAT 98
[2020-08-10 08:35] VITALS: BP 112/72; PULSE 81; RESP 19; TEMP 36.6; O2SAT 98; BMI 53.2
--- NOTE | 2020-08-10 08:41 | ED.GENADULT ---
HPI - General Adult General Chief complaint: General Medical Stated complaint: NAUSEA,HIGH BS 569 PER EMS Time Seen by Provider: 08/10/20 08:41 Source: patient Mode of arrival: EMS Limitations: no limitations History of Present Illness HPI narrative: patients sugars have been reading high, with increased thirst, and lightheadedness with falls Onset (ago): week(s) Radiation: non-radiation Severity: moderate Associated symptoms: nausea/vomiting Related Data Home Medications Medication Instructions Recorded Confirmed amitriptyline 10 mg PO BEDTIME 01/10/20 02/12/20 atenolol 25 mg PO DAILY 01/10/20 02/12/20 atorvastatin 20 mg PO BEDTIME 01/10/20 02/12/20 benztropine 1 mg PO TID 01/10/20 02/12/20 budesonide-formoterol [Symbicort] 2 puff INHALATION BID 01/10/20 02/12/20 divalproex 500 mg PO BID 01/10/20 02/12/20 ergocalciferol (vitamin D2) 1,250 mcg PO QWEEK 01/10/20 02/12/20 [Vitamin D2] escitalopram oxalate 10 mg PO DAILY 01/10/20 02/12/20 famotidine 20 mg PO BID 01/10/20 02/12/20 folic acid 1 mg PO DAILY 01/10/20 02/12/20 glimepiride 3 mg PO DAILY 01/10/20 02/12/20 levothyroxine 137 mcg PO DAILY 01/10/20 02/12/20 lisinopril 10 mg PO DAILY 01/10/20 02/12/20 montelukast 10 mg PO BEDTIME 01/10/20 02/12/20 multivitamin 1 tab PO DAILY 01/10/20 02/12/20 olanzapine 15 mg PO BEDTIME 01/10/20 02/12/20 thiamine HCl (vitamin B1) 100 mg PO DAILY 01/10/20 02/12/20 tiotropium bromide [Spiriva with 1 cap INHALATION DAILY 01/10/20 02/12/20 HandiHaler] trazodone 150 mg PO BEDTIME 01/10/20 02/12/20 quetiapine 300 mg tablet 300 mg PO BEDTIME 02/12/20 02/12/20 Previous Rx's Medication Instructions Recorded leg brace #1 ea 01/22/20 tramadol 50 mg tablet 50 mg PO TID PRN #30 tab 02/19/20 tramadol 50 mg tablet 50 mg PO BID PRN #25 tab 04/21/20 tramadol 50 mg tablet 50 mg PO BID PRN #30 tab 06/11/20 insulin glargine [Lantus Solostar 40 unit SUBCUT QPM #15 ml 08/10/20 U-100 Insulin] insulin regular human 1 sliding scale dose SUBCUT 08/10/20 USEASDIRECTD #10 ml Allergies Allergy/AdvReac Type Severity Reaction Status Date / Time metformin Allergy Intermediate Diarrhea Verified 02/12/20 13:18 morphine [MORPHINE] Allergy Intermediate Hives Verified 02/12/20 13:18 tetracycline Allergy Intermediate hives Verified 02/12/20 13:18 haloperidol [From HALDOL] AdvReac Intermediate Irritable Verified 02/12/20 13:18 duramorph/derivative or Allergy Intermediate hives Uncoded 02/12/20 13:18 morphi Review of Systems Constitutional: Constitutional: Reports no additional constitutional complaints Eyes: Eyes: Reports no additional eye complaints ENT: Denies dizziness Cardiovascular: Cardiovascular: Reports no additional cardiovascular complaints Respiratory: Respiratory: Reports as per HPI Gastrointestinal: Gastrointestinal: Reports no additional gastrointestinal complaints Genitourinary: Genitourinary: Reports no additional female genitourinary complaints Musculoskeletal: Musculoskeletal: Reports no additional musculoskeletal complaints Integumentary/Breasts: Skin/Breast: Denies rash Neurologic: Reports system reviewed and no additional complaints, except as documented, Denies dizziness and Denies Sensory deficit (Neuro) Psychiatric: Psychiatric: Denies anxiety PMFSH Past Medical History Medical History ADHD Aortic aneurysm Arthritis Asthma Back pain Depression Diabetes Diabetes Fibula fracture Gallstone GERD (gastroesophageal reflux disease) Goiter Hepatitis Hernia History of posttraumatic stress disorder (PTSD) HTN (hypertension) Hx of fracture of patella Hypothyroidism Migraine Morbid obesity Myocardial infarction PTSD (post-traumatic stress disorder) Schizo affective schizophrenia Sleep apnea Umbilical hernia Vitamin D deficiency Surgical History History of incision and drainage Hx of knee surgery Hx of tubal ligation Tubal ligation status Family History Family History Father Unknown family medical history Mother No problems noted. Sister Ovarian cancer Social History Social History Alcohol intake: former Smoking Status: Current every day smoker Packs Per Day: 0.5 Cigarettes Per Day: 10.0 Years Smoked: 35 Advance Directives: No Advance Directives Information Provided: No Patient : No Physical Exam Vital Signs: Vital Signs: Last Vital Signs Temp 97.6 F 08/10/20 10:42 Pulse 81 08/10/20 08:35 Resp 19 08/10/20 08:35 BP 112/72 08/10/20 08:35 Pulse Ox 98 08/10/20 08:35 Body Mass Index 53.2 Const: Other: morbidly obese female appearing weak Orientation/consciousness: oriented to person and patient oriented x3 Limitations: no limitations HENMT: Head: Yes normal to inspection Ears: external ears normal General nose exam: Normal external nose present Mouth: Normal oral and palatal mucosa present and oropharynx normal Throat: Yes posterior oropharynx normal Eyes: General: appearance normal, both eyes and all related structures Neck: Other: supple Neck: Yes normal visual inspection Chest: Chest palpation & inspection: normal inspection of the chest Resp: Auscultation: clear to auscultation bilaterally Cardio: Jugular venous distension: no JVD Rate: regular rate Rhythm: regular rhythm Heart sounds: S1 normal heart sound present and S2 normal heart sound present GI: Inspection: Yes normal to inspection Palpation (GI): Soft to palpation, nontender and No hepatosplenomegaly present Auscultation: normal bowel sounds : General: Yes no CVA tenderness Back/Spine/Pelvis: Back: no CVA tenderness Skin: General skin exam: no rashes or lesions noted Neuro: General: oriented to person and patient oriented x3 Cranial nerves: Yes CN's II-XII intact bilaterally Motor exam (neuro): 5/5 motor strength present throughout Sensory Exam: No Sensory deficit (Neuro) Extrem: General: Yes normal to inspection Psych: Appearance: grossly normal Course Course Course Narrative: Insulin drip started and hourly glucose checks done. Sugar down to 200, will increase lantus back to 40 units and start a sliding scale Medical Decision Making Lab Data Result diagrams: 08/10/20 09:18 08/10/20 09:18 Labs: Lab Results 08/10/20 08/10/20 08/10/20 Range/Units 08:36 08:37 09:18 WBC 5.5 (4.8-10.8) X10*3/uL RBC 4.58 (4.20-5.50) X10*6/uL Hgb 13.4 (12.0-16.0) g/dl Hct 41.9 (37-47) % MCV 91.5 (80-98) fL MCH 29.3 (27.0-33.0) pg MCHC 32.0 (31.0-35.0) g/dl RDW 15.3 (11.0-16.0) % Plt Count 201 D (160-400) X10*3/uL MPV 13.0 H (9.4-12.3) fL Immature Gran % (Auto) 3.1 H (0.0-0.4) % Neut % (Auto) 38.5 L (45-73) % Lymph % (Auto) 44.4 H (20-40) % [place] % (Auto) 10.4 (2-11) % Eos % (Auto) 2.7 (0-4) % Baso % (Auto) 0.9 (0-2) % Lymph # (Auto) 2.4 (1.2-4.9) X10*3/uL [place] # (Auto) 0.6 (0.1-1.2) X10*3/uL Eos # (Auto) 0.2 (0.0-0.4) X10*3/uL Baso # (Auto) 0.1 (0.0-0.2) X10*3/uL Abs Immat Gran (auto) 0.17 H (0.00-0.03) X10*3/uL Absolute Neuts (auto) 2.1 (2.0-8.3) X10*3/uL Absolute Nucleated RBC 0.020 H (0.0-0.012) X10*3/uL Nucleated RBC % (auto) 0.4 H (0.0-0.2) /100WBC Sodium (135-145) mmol/L Potassium (3.3-5.1) mmol/L Chloride (96-108) mmol/L Carbon Dioxide (22-29) mmol/L Anion Gap (12-20) BUN (9-16) mg/dL Creatinine (0.5-1.4) mg/dL Estim Creat Clear Calc Estimated GFR POC Glucose > 600 H* > 600 H* (60-115) mg/dL Random Glucose (60-115) mg/dL Calcium (8.4-10.2) mg/dL 08/10/20 08/10/20 08/10/20 Range/Units 09:18 10:25 10:50 WBC (4.8-10.8) X10*3/uL RBC (4.20-5.50) X10*6/uL Hgb (12.0-16.0) g/dl Hct (37-47) % MCV (80-98) fL MCH (27.0-33.0) pg MCHC (31.0-35.0) g/dl RDW (11.0-16.0) % Plt Count (160-400) X10*3/uL MPV (9.4-12.3) fL Immature Gran % (Auto) (0.0-0.4) % Neut % (Auto) (45-73) % Lymph % (Auto) (20-40) % [place] % (Auto) (2-11) % Eos % (Auto) (0-4) % Baso % (Auto) (0-2) % Lymph # (Auto) (1.2-4.9) X10*3/uL [place] # (Auto) (0.1-1.2) X10*3/uL Eos # (Auto) (0.0-0.4) X10*3/uL Baso # (Auto) (0.0-0.2) X10*3/uL Abs Immat Gran (auto) (0.00-0.03) X10*3/uL Absolute Neuts (auto) (2.0-8.3) X10*3/uL Absolute Nucleated RBC (0.0-0.012) X10*3/uL Nucleated RBC % (auto) (0.0-0.2) /100WBC Sodium 128 L (135-145) mmol/L Potassium 5.1 (3.3-5.1) mmol/L Chloride 90 L (96-108) mmol/L Carbon Dioxide 28 (22-29) mmol/L Anion Gap 15 (12-20) BUN 21 H D (9-16) mg/dL Creatinine 1.53 H (0.5-1.4) mg/dL Estim Creat Clear Calc 67.0 Estimated GFR 36 POC Glucose 517 H* 452 H* (60-115) mg/dL Random Glucose 666 H* (60-115) mg/dL Calcium 9.6 (8.4-10.2) mg/dL 08/10/20 08/10/20 08/10/20 Range/Units 11:56 13:06 14:02 WBC (4.8-10.8) X10*3/uL RBC (4.20-5.50) X10*6/uL Hgb (12.0-16.0) g/dl Hct (37-47) % MCV (80-98) fL MCH (27.0-33.0) pg MCHC (31.0-35.0) g/dl RDW (11.0-16.0) % Plt Count (160-400) X10*3/uL MPV (9.4-12.3) fL Immature Gran % (Auto) (0.0-0.4) % Neut % (Auto) (45-73) % Lymph % (Auto) (20-40) % [place] % (Auto) (2-11) % Eos % (Auto) (0-4) % Baso % (Auto) (0-2) % Lymph # (Auto) (1.2-4.9) X10*3/uL [place] # (Auto) (0.1-1.2) X10*3/uL Eos # (Auto) (0.0-0.4) X10*3/uL Baso # (Auto) (0.0-0.2) X10*3/uL Abs Immat Gran (auto) (0.00-0.03) X10*3/uL Absolute Neuts (auto) (2.0-8.3) X10*3/uL Absolute Nucleated RBC (0.0-0.012) X10*3/uL Nucleated RBC % (auto) (0.0-0.2) /100WBC Sodium (135-145) mmol/L Potassium (3.3-5.1) mmol/L Chloride (96-108) mmol/L Carbon Dioxide (22-29) mmol/L Anion Gap (12-20) BUN (9-16) mg/dL Creatinine (0.5-1.4) mg/dL Estim Creat Clear Calc Estimated GFR POC Glucose 301 H 237 H 254 H (60-115) mg/dL Random Glucose (60-115) mg/dL Calcium (8.4-10.2) mg/dL 08/10/20 Range/Units 15:14 WBC (4.8-10.8) X10*3/uL RBC (4.20-5.50) X10*6/uL Hgb (12.0-16.0) g/dl Hct (37-47) % MCV (80-98) fL MCH (27.0-33.0) pg MCHC (31.0-35.0) g/dl RDW (11.0-16.0) % Plt Count (160-400) X10*3/uL MPV (9.4-12.3) fL Immature Gran % (Auto) (0.0-0.4) % Neut % (Auto) (45-73) % Lymph % (Auto) (20-40) % [place] % (Auto) (2-11) % Eos % (Auto) (0-4) % Baso % (Auto) (0-2) % Lymph # (Auto) (1.2-4.9) X10*3/uL [place] # (Auto) (0.1-1.2) X10*3/uL Eos # (Auto) (0.0-0.4) X10*3/uL Baso # (Auto) (0.0-0.2) X10*3/uL Abs Immat Gran (auto) (0.00-0.03) X10*3/uL Absolute Neuts (auto) (2.0-8.3) X10*3/uL Absolute Nucleated RBC (0.0-0.012) X10*3/uL Nucleated RBC % (auto) (0.0-0.2) /100WBC Sodium (135-145) mmol/L Potassium (3.3-5.1) mmol/L Chloride (96-108) mmol/L Carbon Dioxide (22-29) mmol/L Anion Gap (12-20) BUN (9-16) mg/dL Creatinine (0.5-1.4) mg/dL Estim Creat Clear Calc Estimated GFR POC Glucose 223 H (60-115) mg/dL Random Glucose (60-115) mg/dL Calcium (8.4-10.2) mg/dL Critical Care Time Critical Care Time Attestation: I spent 40 minutes of critical care, with interventions, assessments, speaking to patient, consultants, and family. Discharge Plan Discharge Clinical Impression: Hyperglycemia Patient Disposition: Home, Self-Care Instructions: Hyperosmolar Hyperglycemic State (ED) Prescriptions: New Lantus Solostar U-100 Insulin 100 unit/mL (3 mL) insulin pen 40 unit subcut QPM Qty: 15 RF: 0 insulin regular human 100 unit/mL solution 1 sliding scale dose subcut USEASDIRECTD Qty: 10 RF: 0 Discontinued Lantus Solostar U-100 Insulin 100 unit/mL (3 mL) insulin pen 50 unit SUBCUT QPM RF: 0 No Action (DME) Ankle Brace Misc See Rx Instructions .ROUTE .MEDSUPPLY Qty: 1 RF: 0 tramadol 50 mg tablet 50 mg PO TID PRN (Reason: pain) Qty: 30 RF: 0 tramadol 50 mg tablet 50 mg PO BID PRN (Reason: pain) Qty: 25 RF: 0 tramadol 50 mg tablet 50 mg PO BID PRN (Reason: Pain) Qty: 30 RF: 0 multivitamin Tablet 1 tab PO DAILY RF: 0 levothyroxine 137 mcg Tablet 137 mcg PO DAILY RF: 0 atorvastatin 20 mg Tablet 20 mg PO BEDTIME RF: 0 atenolol 25 mg Tablet 25 mg PO DAILY RF: 0 thiamine HCl (vitamin B1) 100 mg Tablet 100 mg PO DAILY RF: 0 divalproex 500 mg Tablet,Delayed Release (Dr/Ec) 500 mg PO BID RF: 0 glimepiride 2 mg Tablet 3 mg PO DAILY RF: 0 famotidine 20 mg Tablet 20 mg PO BID RF: 0 amitriptyline 10 mg Tablet 10 mg PO BEDTIME RF: 0 trazodone 150 mg Tablet 150 mg PO BEDTIME RF: 0 lisinopril 10 mg Tablet 10 mg PO DAILY RF: 0 benztropine 1 mg Tablet 1 mg PO TID RF: 0 folic acid 1 mg Tablet 1 mg PO DAILY RF: 0 montelukast 10 mg Tablet 10 mg PO BEDTIME RF: 0 olanzapine 15 mg Tablet 15 mg PO BEDTIME RF: 0 ergocalciferol (vitamin D2) [Vitamin D2] 1,250 mcg (50,000 unit) Capsule 1,250 mcg PO QWEEK RF: 0 escitalopram oxalate 10 mg Tablet 10 mg PO DAILY RF: 0 Spiriva with HandiHaler 18 mcg Capsule, W/Inhalation Device 1 cap INHALATION DAILY RF: 0 budesonide-formoterol [Symbicort] 160-4.5 mcg/actuation Hfa Aerosol Inhaler 2 puff INHALATION BID RF: 0 quetiapine [Seroquel] 300 mg tablet 300 mg PO BEDTIME RF: 0 Referrals: Maria Esther Quiros, OLD[employer] [Primary Care Provider] - 2 days
[2020-08-10 08:44] LABS: Glucose, Whole Blood > 600 mg/dL (60-115)
[2020-08-10 09:01] LABS: Glucose, Whole Blood > 600 mg/dL (60-115)
[2020-08-10 09:22] LABS: MANUAL DIFF FLAG NO
[2020-08-10 09:25] LABS: Basophils Absolute Auto 0.1 X10*3/uL (0.0-0.2); Basophils Percent Auto 0.9 % (0-2); Eosinophils Absolute Auto 0.2 X10*3/uL (0.0-0.4); Eosinophils Percent Auto 2.7 % (0-4); Hematocrit 41.9 % (37-47); Hemoglobin 13.4 g/dl (12.0-16.0); Imm Gran Abs Auto 0.17 X10*3/uL (0.00-0.03); Imm Gran Pct Auto 3.1 % (0.0-0.4); Lymphocytes Absolute Auto 2.4 X10*3/uL (1.2-4.9); Lymphocytes Percent Auto 44.4 % (20-40); Mean Corpuscular Hemoglobin 29.3 pg (27.0-33.0); Mean Corpuscular Volume 91.5 fL (80-98); Monocytes Absolute Auto 0.6 X10*3/uL (0.1-1.2); Monocytes Percent Auto 10.4 % (2-11); NRBC Pct Auto 0.4 /100WBC (0.0-0.2); Neutrophils Absolute Auto 2.1 X10*3/uL (2.0-8.3); Neutrophils Percent Auto 38.5 % (45-73); Platelet Count 201 X10*3/uL (160-400); Red Blood Count 4.58 X10*6/uL (4.20-5.50); Red Cell Distribution Width 15.3 % (11.0-16.0); White Blood Count 5.5 X10*3/uL (4.8-10.8)
[2020-08-10] MEDS: 0.9 % Sodium Chloride 1,000 ML 999 ML IVCONT ×2 (09:25→10:50)
[2020-08-10] MEDS: Insulin Regular, Human 100 UNIT/ML 3 ML VIAL 15 UNIT IVPUSH (09:26)
[2020-08-10] MEDS: Insulin Regular/NS 100 UNIT/100 ML PLAST..BAG 15 UNIT IVCONT ×2 (09:26→09:41)
[2020-08-10 09:59] LABS: Anion Gap 15 (12-20); Blood Urea Nitrogen 21 mg/dL (9-16); Calcium 9.6 mg/dL (8.4-10.2); Carbon Dioxide 28 mmol/L (22-29); Chloride 90 mmol/L (96-108); Estimated Glomerular Filt Rate 36; Potassium 5.1 mmol/L (3.3-5.1); Sodium 128 mmol/L (135-145)
[2020-08-10 10:07] LABS: Glucose Random 666 mg/dL (60-115)
[2020-08-10 10:28] LABS: Glucose, Whole Blood 517 mg/dL (60-115)
[2020-08-10 10:42] VITALS: TEMP 36.4
[2020-08-10 10:55] LABS: Glucose, Whole Blood 452 mg/dL (60-115)
[2020-08-10 11:59] LABS: Glucose, Whole Blood 301 mg/dL (60-115)
[2020-08-10] MEDS: Insulin Glargine,Hum.rec.anlog 100 UNIT/ML 10 ML VIAL SUBCUT (12:31)
[2020-08-10 13:09] LABS: Glucose, Whole Blood 237 mg/dL (60-115)
[2020-08-10 14:05] LABS: Glucose, Whole Blood 254 mg/dL (60-115)
[2020-08-10 15:18] LABS: Glucose, Whole Blood 223 mg/dL (60-115)
== END 2020-08-10 16:01 | disposition home or self-care (01) ==
PROVIDERS: Emergency Provider Emergency Medicine; PCP Registered Nurse
DX: E11.65 Type 2 diabetes mellitus with hyperglycemia (principal); I10 Essential (primary) hypertension; F17.201 Nicotine dependence, unspecified, in remission
CPT/HCPCS: 36415; 80048; 82947; 85025; 96361; 96365; 96366; 96374; 99284; 99291

== ENCOUNTER 2020-11-20 19:47 | Outpatient (REF) | payer MEDICAID, SELFPAY | END 2020-11-20 19:48 | disposition home or self-care (01) | LOC: HO.MRI 19:47 | PROVIDERS: PCP Registered Nurse; Visit Provider General Practice | DX: Z13.89 Encounter for screening for other disorder (principal) ==

== ENCOUNTER → 2021-02-03 11:20 | Outpatient (BNVA) | payer MEDICAID, SELFPAY | PROVIDERS: PCP Registered Nurse; Referring Provider Registered Nurse; Visit Provider Surgery | DX: K80.20 Calculus of gallbladder without cholecystitis without obstruction (principal) | CPT/HCPCS: 99212 ==

== ENCOUNTER → 2021-03-17 09:19 | Outpatient (BNVA) | payer MEDICAID, SELFPAY | PROVIDERS: Visit Provider Internal Medicine ==

== ENCOUNTER → 2021-04-20 11:11 | Outpatient (BNVA) | payer MEDICAID, SELFPAY | PROVIDERS: PCP Registered Nurse; Visit Provider Nurse Practitioner Gerontology | DX: E11.65 Type 2 diabetes mellitus with hyperglycemia (principal); I10 Essential (primary) hypertension; E78.5 Hyperlipidemia, unspecified; E66.01 Morbid (severe) obesity due to excess calories; Z68.44 Body mass index [BMI] 60.0-69.9, adult | CPT/HCPCS: 36415; 71045; 80048; 80076; 80164; 81001; 82803; 82947; 83036; 83605; 83690; 83735; 84484; 85025; 87635; 93005; 94640; 96361; 96372; 96374; 96376; 99212; 99284; J1815 ==

== ENCOUNTER 2021-04-20 12:41 | Emergency (ER) | payer MEDICAID, SELFPAY ==
[2021-04-20] VITALS (7 sets, daily range): BP systolic 91–127; BP diastolic 52–78; PULSE 71–85; RESP 16–22; TEMP 36.6; O2SAT 79–99; BMI 61.1
--- NOTE | ~2021-04-20 | XR_ITS ---
EXAMINATION: XR CHEST CLINICAL INFORMATION: Dyspnea. COMPARISON: Chest x-ray 07/12/2019 TECHNIQUE: Frontal portable view of the chest was obtained. 2:57 PM FINDINGS: Lung volume is low. This causes prominence of the central bronchovascular markings. Allowing for low inspiratory effort there is no significant pulmonary vascular congestion. There is no focal airspace disease. No pleural effusion or pneumothorax. 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 No acute osseous abnormality. XR/XR chest 1V IMPRESSION: Low inspiratory effort. No acute abnormality of the chest.
--- NOTE | 2021-04-20 13:10 | ECG_ITS ---
Test Reason : DIZZINESS Blood Pressure : / mmHG Vent. Rate : 071 BPM Atrial Rate : 071 BPM P-R Int : 212 ms QRS Dur : 090 ms QT Int : 436 ms P-R-T Axes : 062 -63 014 degrees QTc Int : 473 ms Artifact in tracing Sinus rhythm with 1st degree A-V block Left axis deviation cannot exclude old Inferior infarct , age undetermined Abnormal ECG When compared with ECG of 19-DEC-2019 12:31, No significant change was found Referred By: Zee Delacruz Electronically Signed By:CHRISSY GALLARDO
--- NOTE | 2021-04-20 13:13 | ED_ITS ---
HPI - Dizziness General Chief Complaint: Dizziness Stated Complaint: HIGH BS 430 @ MD OFFICE Time Seen by Provider: 04/20/21 13:09 Source: patient Mode of arrival: EMS Limitations: no limitations History of Present Illness HPI Narrative: 51 yo female with hx of obesity, DM, HLD, sleep apnea, HTN, migraines, SC, jessica izoaffective disorder comes in stating she was just on prednisone 5 days ago for bronchitis and since then her BS have been up. She then tells me she had 4 large cups of coffee with sugar this AM and saw her hand tube winder in the office they gave her insulin 10U but her sugars have been in the 400s since being on prednisone. She also notes she has been urinating more but denies any other complaints such as fevers, cough. She is somewhat sleepy during the interview but notes its because of her sugars and medications. MD elicited complaint: dizziness (elevated BS, polyuria) Pertinent past history: other (DM, recently on prednisone for bronchitis) Onset (ago): day(s) (5+) Timing: gradual onset Severity: moderate (BS in 400s) Description: lightheadedness Context: recent illness (recent medication, also had 4 large coffees for breakfast with sugar) History of similar symptoms: Yes Exacerbating factors: nothing Relieving factors: nothing Associated symptoms: malaise, weakness and other (polyuria) Related Data Home Medications Medication Instructions Recorded Confirmed amitriptyline 10 mg tablet 10 mg PO BEDTIME 01/10/20 04/20/21 atorvastatin 20 mg tablet 20 mg PO BEDTIME 01/10/20 04/20/21 benztropine 1 mg tablet 1 mg PO 1200,2100 01/10/20 04/20/21 budesonide-formoterol HFA 160 2 puff INHALATION BID 01/10/20 03/17/21 mcg-4.5 mcg/actuation aerosol inhaler (Symbicort) divalproex 500 mg 500 mg PO 1200 01/10/20 04/20/21 tablet,delayed release famotidine 20 mg tablet 20 mg PO BID 01/10/20 03/17/21 lisinopril 10 mg tablet 10 mg PO BEDTIME 01/10/20 04/20/21 montelukast 10 mg tablet 10 mg PO BEDTIME 01/10/20 04/20/21 multivitamin 1 tab PO DAILY 01/10/20 04/20/21 olanzapine 15 mg tablet 15 mg PO BEDTIME 01/10/20 03/17/21 thiamine HCl (vitamin B1) 100 100 mg PO DAILY 01/10/20 04/20/21 mg tablet tiotropium bromide 18 mcg 1 cap INHALATION DAILY 01/10/20 03/17/21 capsule with inhalation device (Spiriva with HandiHaler) alendronate 70 mg tablet 1 tab PO QWEEK 04/20/21 atenolol 50 mg tablet 1 tab PO 1200 04/20/21 04/20/21 citalopram 10 mg tablet 1 tab PO QAM 04/20/21 04/20/21 divalproex 500 mg 1,000 mg PO BEDTIME 04/20/21 04/20/21 tablet,extended release 24 hr docusate sodium 100 mg capsule 100 mg PO 1200 04/20/21 04/20/21 ergocalciferol (vitamin D2) 50 50 mcg PO DAILY 04/20/21 04/20/21 mcg (2,000 unit) tablet folic acid 1 mg tablet 1 tab PO QAM 04/20/21 04/20/21 furosemide 40 mg tablet 1 tab PO QAM 04/20/21 04/20/21 glimepiride 4 mg tablet 1 tab PO QPM 04/20/21 hydroxyzine HCl 50 mg tablet 1 tab PO TID PRN 04/20/21 lurasidone 60 mg tablet 1 tab PO QAM 04/20/21 04/20/21 (Latuda) melatonin 5 mg tablet 1 - 2 tab PO BEDTIME PRN 04/20/21 prazosin 5 mg capsule 1 cap PO BEDTIME 04/20/21 04/20/21 quetiapine 400 mg tablet 1 tab PO BEDTIME 04/20/21 04/20/21 Previous Rx's Medication Instructions Recorded leg brace (Ankle Brace) #1 ea 01/22/20 insulin glargine 100 unit/mL (3 40 unit (0.4 mL) SUBCUT QPM #15 ml 08/10/20 mL) subcutaneous pen (Lantus Solostar U-100 Insulin) insulin regular human 100 unit/mL 1 sliding scale dose SUBCUT 08/10/20 injection solution USEASDIRECTD #10 ml levothyroxine 137 mcg tablet 137 mcg PO DAILY 30 Days #30 tab 03/17/21 tramadol 50 mg tablet 50 mg PO BID PRN #30 tab 03/18/21 insulin lispro 100 unit/mL 12 - 18 unit (0.12 - 0.18 mL) 04/20/21 subcutaneous pen (Humalog KwikPen SUBCUT TID 30 Days #15 ml (U-100) Insulin) pen needle, diabetic 32 gauge x #125 ea 04/20/2132 (BD Ultra-Fine Mary Pen Needle) Allergies Allergy/AdvReac Type Severity Reaction Status Date / Time metformin Allergy Intermediate Diarrhea Verified 03/17/21 10:52 morphine [MORPHINE] Allergy Intermediate Hives Verified 03/17/21 10:52 tetracycline Allergy Intermediate hives Verified 03/17/21 10:52 haloperidol [From AdvReac Intermediate Irritable Verified 03/17/21 10:52 HALDOL] duramorph/derivative Allergy Intermediate hives Uncoded 03/17/21 10:52 or morphi Review of Systems Verdana 4l Review of Systems: Verdana 4d Verdana 4d Constitutional : No Weight loss, No Fever, No Chills, No Fatigue, No Malaise ENT/Mouth : No sore throat, No Rhinorrhea Eyes: No Eye Pain, No Swelling, No Redness Cardiovascular : No Chest Pain, No SOB, No Dyspnea on Exertion, No Orthopnea,, No Edema, No Palpitations Respiratory : No Cough, No Sputum, No Wheezing Gastrointestinal : No Nausea, No Vomiting, No Diarrhea, No Constipation, No abdominal Pain, No Hematochezia, No Melena Genitourinary : No Dysuria, No Urinary Frequency, No Hematuria, Musculoskeletal : No joint pain, No Myalgias, No Joint Swelling Skin : No Skin Lesions, No rash Neuro : pos Weakness, No Numbness, pos Dizziness, No Headache Psych : No Anxiety/Panic, No Depression Heme/Lymph: No Bruising, No Bleeding,No Lymphadenopathy Endocrine : pos Polyuria, No Polydipsia All other systems reviewed and are negative [facility] Past Medical History Attestation statement: The following information was validated with the patient. Medical History ADHD Aortic aneurysm Arthritis Asthma Back pain Depression Diabetes Diabetes Fibula fracture Gallstone GERD (gastroesophageal reflux disease) Goiter Hepatitis Hernia History of posttraumatic stress disorder (PTSD) HTN (hypertension) Hx of fracture of patella Hypothyroidism Migraine Morbid obesity Myocardial infarction Obesity due to excess calories PTSD (post-traumatic stress disorder) Schizo affective schizophrenia Sleep apnea Umbilical hernia Vitamin D deficiency Surgical History History of incision and drainage Hx of knee surgery Hx of tubal ligation Tubal ligation status Family History Family History Father Unknown family medical history Mother No problems noted. Sister Ovarian cancer Social History Social History Household Members: None Alcohol intake: never Cigarette Packs Per Day: 0.5 Cigarettes Per Day: 10.0 Years Smoked: 35 Advance Directives: No Advance Directives Information Provided: No Physical Exam Verdana 4l Vital Signs: Verdana 4d Verdana 4d Vital Signs: Verdana 4d Verdana 4Bd Last Vital Signs Verdana 4d Tilesetter New 4d Tilesetter New 4d Temp 97.8 F 04/20/21 13:01 [place]etter New 4d Pulse 72 04/20/21 17:11 [place] New 4d Resp 16 04/20/21 17:11 BP 127/67 04/20/21 17:57 Pulse Ox 99 04/20/21 17:11 BMI result Body Mass Index 61.1 Appearance: Alert. Oriented X3. No acute distress. Eyes: Pupils equal, round and reactive to light. ENT: Pharynx normal. Neck: Normal inspection. Neck supple. CVS: Normal heart rate and rhythm. Pulses normal. Respiratory: No respiratory distress. Breath sounds normal. Abdomen: Soft and non-tender. Obese Skin: Skin warm and dry. Normal skin color. Normal skin turgor. Extremities: No lower extremity edema. No calf ttp Neuro: Oriented X 3. No motor deficit. No sensory deficit. Course Course Course Narrative: lactic acidosis likely due to albuterol/hyperglycemia/dehydration and not infection or severe sepsis BS coming down not retaining - she desaturates with sleep wears CPAP when she sleeps ?polypharmacy from multiple psychoactive drugs VBG not retaining, other than HCO3 her BMP is much better than usual, suspect BP not correct had tech readjust cuff and readings much better. does not need O2 unless she is asleep which fits with her MORGAN, she is alert and oriented x 3, much more awake than on arrival BS has come down nicely, based off her hemoglobin A1c - she is not compliant. 92% while standing states this is normal for her and wants to go home MDM - Dizziness MDM Narrative Medical decision making narrative: 51 yo female with hx of obesity, DM, HLD, sleep apnea, HTN, migraines, SC, schizoaffective disorder comes in stating she was just on prednisone 5 days ago for bronchitis and since then her BS have been up to the 400s at home with polyuria and fatigue. She then tells me she had 4 large cups of coffee with sugar this AM and saw her hand tube winder in the office who gave her insulin 10U referred to the ED for symptoms and lightheadedness. Will obtain basic labs, UA, CXR - rule out infectious sources though the prednisone and her diet are definitely contributing factors. IV insulin and NS ordered. Dispo per results and findings. Lab Data Result diagrams: 04/20/21 14:17 04/20/21 17:00 Labs: Lab Results 04/20/21 04/20/21 04/20/21 Range/Units 13:07 14:17 14:17 WBC 8.1 (4.8-10.8) X10*3/uL RBC 5.15 (4.20-5.50) X10*6/uL Hgb 14.9 (12.0-16.0) g/dl Hct 46.6 (37.0-47.0) % MCV 90.5 (80.0-98.0) fL MCH 28.9 (27.0-33.0) pg MCHC 32.0 (31.0-35.0) g/dl RDW 17.8 H (11.0-16.0) % Plt Count 207 (160-400) X10*3/uL MPV 12.8 H (9.4-12.3) fL Immature Gran % (Auto) 1.4 H (0.0-0.4) % Neut % (Auto) 39.7 L (45-73) % Lymph % (Auto) 47.3 H (20-40) % Harding % (Auto) 8.0 (2-11) % Eos % (Auto) 2.5 (0-4) % Baso % (Auto) 1.1 (0-2) % Lymph # (Auto) 3.8 (1.2-4.9) X10*3/uL Harding # (Auto) 0.7 (0.1-1.2) X10*3/uL Eos # (Auto) 0.2 (0.0-0.4) X10*3/uL Baso # (Auto) 0.1 (0.0-0.2) X10*3/uL Abs Immat Gran (auto) 0.11 H (0.00-0.03) X10*3/uL Absolute Neuts (auto) 3.2 (2.0-8.3) x10*3/uL Absolute Nucleated RBC 0.000 (0.0-0.012) X10*3/uL Nucleated RBC % (auto) 0.0 (0.0-0.2) /100WBC Smear Tech's Comments VERIFIED VBG pH (7.32-7.43) VBG pCO2 mmHg VBG pO2 mmHg VBG HCO3 (22-26) mmol/L VBG O2 Saturation % VBG Base Excess mmol/L Sodium (135-145) mmol/L Potassium (3.3-5.1) mmol/L Chloride (96-108) mmol/L Carbon Dioxide (22-29) mmol/L Anion Gap (12-20) BUN (9-16) mg/dL Creatinine (0.5-1.4) mg/dL Estim Creat Clear Calc Estimated GFR POC Glucose 389 H* (60-115) mg/dL Random Glucose (60-115) mg/dL Lactic Acid 2.8 H* (0.5-2.0) mmol/L Lactic Acid F/U @ 2Hr (0.5-2.0) mmol/L Calcium (8.4-10.2) mg/dL Magnesium (1.6-2.6) mg/dL Total Bilirubin (0.0-1.0) mg/dL Direct Bilirubin (0.0-0.5) mg/dL AST (5-31) U/L ALT (0-31) U/L Alkaline Phosphatase (39-117) U/L Troponin I High Sens (<3.5-17.0) ng/L Total Protein (6.5-8.0) g/dL Albumin (3.5-5.0) g/dL Lipase (8-78) U/L Urine Color Urine Appearance Urine pH (5.0-8.0) Ur Specific [place] (1.005-1.025) Urine Protein (NEG-TRACE) MG/DL Urine Glucose (UA) (NEG) MG/DL Urine Ketones (NEG) MG/DL Urine Blood (NEG) Urine Nitrite (NEG) Ur Leukocyte Esterase (NEG) Urine RBC (0) /HPF Urine WBC (0-4) /HPF Ur Squamous Epith Cells /LPF Urine Bacteria /LPF Urine Yeast /HPF Valproic Acid (50.0-100.0) mcg/mL COVID-19 (JEFFRY) (Negative) COVID-19 Clin Com 04/20/21 04/20/21 04/20/21 Range/Units 14:18 14:23 14:34 WBC (4.8-10.8) X10*3/uL RBC (4.20-5.50) X10*6/uL Hgb (12.0-16.0) g/dl Hct (37.0-47.0) % MCV (80.0-98.0) fL MCH (27.0-33.0) pg MCHC (31.0-35.0) g/dl RDW (11.0-16.0) % Plt Count (160-400) X10*3/uL MPV (9.4-12.3) fL Immature Gran % (Auto) (0.0-0.4) % Neut % (Auto) (45-73) % Lymph % (Auto) (20-40) % Harding % (Auto) (2-11) % Eos % (Auto) (0-4) % Baso % (Auto) (0-2) % Lymph # (Auto) (1.2-4.9) X10*3/uL Harding # (Auto) (0.1-1.2) X10*3/uL Eos # (Auto) (0.0-0.4) X10*3/uL Baso # (Auto) (0.0-0.2) X10*3/uL Abs Immat Gran (auto) (0.00-0.03) X10*3/uL Absolute Neuts (auto) (2.0-8.3) x10*3/uL Absolute Nucleated RBC (0.0-0.012) X10*3/uL Nucleated RBC % (auto) (0.0-0.2) /100WBC Smear Tech's Comments VBG pH 7.51 H (7.32-7.43) VBG pCO2 45 mmHg VBG pO2 92 mmHg VBG HCO3 37 H (22-26) mmol/L VBG O2 Saturation 98.0 % VBG Base Excess 12.3 mmol/L Sodium (135-145) mmol/L Potassium (3.3-5.1) mmol/L Chloride (96-108) mmol/L Carbon Dioxide (22-29) mmol/L Anion Gap (12-20) BUN (9-16) mg/dL Creatinine (0.5-1.4) mg/dL Estim Creat Clear Calc Estimated GFR POC Glucose (60-115) mg/dL Random Glucose (60-115) mg/dL Lactic Acid (0.5-2.0) mmol/L Lactic Acid F/U @ 2Hr (0.5-2.0) mmol/L Calcium (8.4-10.2) mg/dL Magnesium (1.6-2.6) mg/dL Total Bilirubin (0.0-1.0) mg/dL Direct Bilirubin (0.0-0.5) mg/dL AST (5-31) U/L ALT (0-31) U/L Alkaline Phosphatase (39-117) U/L Troponin I High Sens 4.8 (<3.5-17.0) ng/L Total Protein (6.5-8.0) g/dL Albumin (3.5-5.0) g/dL Lipase (8-78) U/L Urine Color Urine Appearance Urine pH (5.0-8.0) Ur Specific [place] (1.005-1.025) Urine Protein (NEG-TRACE) MG/DL Urine Glucose (UA) (NEG) MG/DL Urine Ketones (NEG) MG/DL Urine Blood (NEG) Urine Nitrite (NEG) Ur Leukocyte Esterase (NEG) Urine RBC (0) /HPF Urine WBC (0-4) /HPF Ur Squamous Epith Cells /LPF Urine Bacteria /LPF Urine Yeast /HPF Valproic Acid (50.0-100.0) mcg/mL COVID-19 (JEFFRY) Negative (Negative) COVID-19 Clin Com See Note 04/20/21 04/20/21 04/20/21 Range/Units 14:34 14:53 15:56 WBC (4.8-10.8) X10*3/uL RBC (4.20-5.50) X10*6/uL Hgb (12.0-16.0) g/dl Hct (37.0-47.0) % MCV (80.0-98.0) fL MCH (27.0-33.0) pg MCHC (31.0-35.0) g/dl RDW (11.0-16.0) % Plt Count (160-400) X10*3/uL MPV (9.4-12.3) fL Immature Gran % (Auto) (0.0-0.4) % Neut % (Auto) (45-73) % Lymph % (Auto) (20-40) % Harding % (Auto) (2-11) % Eos % (Auto) (0-4) % Baso % (Auto) (0-2) % Lymph # (Auto) (1.2-4.9) X10*3/uL Harding # (Auto) (0.1-1.2) X10*3/uL Eos # (Auto) (0.0-0.4) X10*3/uL Baso # (Auto) (0.0-0.2) X10*3/uL Abs Immat Gran (auto) (0.00-0.03) X10*3/uL Absolute Neuts (auto) (2.0-8.3) x10*3/uL Absolute Nucleated RBC (0.0-0.012) X10*3/uL Nucleated RBC % (auto) (0.0-0.2) /100WBC Smear Tech's Comments VBG pH (7.32-7.43) VBG pCO2 mmHg VBG pO2 mmHg VBG HCO3 (22-26) mmol/L VBG O2 Saturation % VBG Base Excess mmol/L Sodium (135-145) mmol/L Potassium (3.3-5.1) mmol/L Chloride (96-108) mmol/L Carbon Dioxide (22-29) mmol/L Anion Gap (12-20) BUN (9-16) mg/dL Creatinine (0.5-1.4) mg/dL Estim Creat Clear Calc Estimated GFR POC Glucose 308 H (60-115) mg/dL Random Glucose (60-115) mg/dL Lactic Acid (0.5-2.0) mmol/L Lactic Acid F/U @ 2Hr (0.5-2.0) mmol/L Calcium (8.4-10.2) mg/dL Magnesium (1.6-2.6) mg/dL Total Bilirubin (0.0-1.0) mg/dL Direct Bilirubin (0.0-0.5) mg/dL AST (5-31) U/L ALT (0-31) U/L Alkaline Phosphatase (39-117) U/L Troponin I High Sens (<3.5-17.0) ng/L Total Protein (6.5-8.0) g/dL Albumin (3.5-5.0) g/dL Lipase (8-78) U/L Urine Color STRAW Urine Appearance CLEAR Urine pH 6.0 (5.0-8.0) Ur Specific [place] <= 1.005 (1.005-1.025) Urine Protein NEG (NEG-TRACE) MG/DL Urine Glucose (UA) >=1000 H (NEG) MG/DL Urine Ketones NEG (NEG) MG/DL Urine Blood NEG (NEG) Urine Nitrite NEG (NEG) Ur Leukocyte Esterase NEG (NEG) Urine RBC 1-4 (0) /HPF Urine WBC 0-2 (0-4) /HPF Ur Squamous Epith Cells TRACE /LPF Urine Bacteria TRACE /LPF Urine Yeast TRACE /HPF Valproic Acid 78.9 (50.0-100.0) mcg/mL COVID-19 (JEFFRY) (Negative) COVID-19 Clin Com 04/20/21 04/20/21 Range/Units 17:00 17:00 WBC (4.8-10.8) X10*3/uL RBC (4.20-5.50) X10*6/uL Hgb (12.0-16.0) g/dl Hct (37.0-47.0) % MCV (80.0-98.0) fL MCH (27.0-33.0) pg MCHC (31.0-35.0) g/dl RDW (11.0-16.0) % Plt Count (160-400) X10*3/uL MPV (9.4-12.3) fL Immature Gran % (Auto) (0.0-0.4) % Neut % (Auto) (45-73) % Lymph % (Auto) (20-40) % Harding % (Auto) (2-11) % Eos % (Auto) (0-4) % Baso % (Auto) (0-2) % Lymph # (Auto) (1.2-4.9) X10*3/uL Harding # (Auto) (0.1-1.2) X10*3/uL Eos # (Auto) (0.0-0.4) X10*3/uL Baso # (Auto) (0.0-0.2) X10*3/uL Abs Immat Gran (auto) (0.00-0.03) X10*3/uL Absolute Neuts (auto) (2.0-8.3) x10*3/uL Absolute Nucleated RBC (0.0-0.012) X10*3/uL Nucleated RBC % (auto) (0.0-0.2) /100WBC Smear Tech's Comments VBG pH (7.32-7.43) VBG pCO2 mmHg VBG pO2 mmHg VBG HCO3 (22-26) mmol/L VBG O2 Saturation % VBG Base Excess mmol/L Sodium 132 L (135-145) mmol/L Potassium 4.3 (3.3-5.1) mmol/L Chloride 89 L (96-108) mmol/L Carbon Dioxide 37 H (22-29) mmol/L Anion Gap 10 L (12-20) BUN 14 (9-16) mg/dL Creatinine 0.90 (0.5-1.4) mg/dL Estim Creat Clear Calc 127.2 Estimated GFR > 60 POC Glucose (60-115) mg/dL Random Glucose 261 H D (60-115) mg/dL Lactic Acid (0.5-2.0) mmol/L Lactic Acid F/U @ 2Hr 1.9 (0.5-2.0) mmol/L Calcium 8.8 D (8.4-10.2) mg/dL Magnesium 2.1 (1.6-2.6) mg/dL Total Bilirubin 0.3 (0.0-1.0) mg/dL Direct Bilirubin < 0.2 (0.0-0.5) mg/dL AST 10 (5-31) U/L ALT 7 (0-31) U/L Alkaline Phosphatase 64 D (39-117) U/L Troponin I High Sens (<3.5-17.0) ng/L Total Protein 6.1 L (6.5-8.0) g/dL Albumin 3.3 L (3.5-5.0) g/dL Lipase 13 (8-78) U/L Urine Color Urine Appearance Urine pH (5.0-8.0) Ur Specific [place] (1.005-1.025) Urine Protein (NEG-TRACE) MG/DL Urine Glucose (UA) (NEG) MG/DL Urine Ketones (NEG) MG/DL Urine Blood (NEG) Urine Nitrite (NEG) Ur Leukocyte Esterase (NEG) Urine RBC (0) /HPF Urine WBC (0-4) /HPF Ur Squamous Epith Cells /LPF Urine Bacteria /LPF Urine Yeast /HPF Valproic Acid (50.0-100.0) mcg/mL COVID-19 (JEFFRY) (Negative) COVID-19 Clin Com ECG Data Attestation: I personally reviewed and interpreted this ECG as follows: ECG interpretation date: 04/20/21 ECG interpretation time: 13:38 Interpretation: Rate: 71 Rhythm: NSR with 1st degree AVB Adams: left Normal P waves. Normal KRISTI. Normal QRS complex. ST T wave : no SCARLET< nonspecific qTC: normal prior studies: no acute ischemia The study has been interpreted contemporaneously by me. . Discharge Plan Discharge Clinical Impression: Chronic hyperglycemia Sleep apnea Qualifiers: Sleep apnea type: other type Qualified Code(s): G47.39 - Other sleep apnea Patient Disposition: Home, Self-Care Instructions: Sleep Apnea (DC), Diabetic Hyperglycemia (ED) Additional Instructions: return to ED for any worsening symptoms or concerns Prescriptions: No Action (DME) Ankle Brace Misc See Rx Instructions .ROUTE .MEDSUPPLY Qty: 1 0RF Rx Instructions: AIRSELECT, STANDARD, MEDIUM tramadol 50 mg tablet 50 mg PO BID PRN (Reason: Pain) Qty: 30 0RF multivitamin Tablet 1 tab PO DAILY 0RF atorvastatin 20 mg Tablet 20 mg PO BEDTIME 0RF thiamine HCl (vitamin B1) 100 mg Tablet 100 mg PO DAILY 0RF divalproex 500 mg Tablet,Delayed Release (Dr/Ec) 500 mg PO 1200 0RF famotidine 20 mg Tablet 20 mg PO BID 0RF amitriptyline 10 mg Tablet 10 mg PO BEDTIME 0RF lisinopril 10 mg Tablet 10 mg PO BEDTIME 0RF benztropine 1 mg Tablet 1 mg PO 1200,2100 0RF montelukast 10 mg Tablet 10 mg PO BEDTIME 0RF olanzapine 15 mg Tablet 15 mg PO BEDTIME 0RF Spiriva with HandiHaler 18 mcg Capsule, W/Inhalation Device 1 cap INHALATION DAILY 0RF budesonide-formoterol [Symbicort] 160-4.5 mcg/actuation Hfa Aerosol Inhaler 2 puff INHALATION BID 0RF Lantus Solostar U-100 Insulin 100 unit/mL (3 mL) insulin pen 40 unit subcut QPM Qty: 15 0RF insulin regular human 100 unit/mL solution 1 sliding scale dose subcut USEASDIRECTD Qty: 10 0RF Rx Instructions: Glucose 200-250 4units, 250-300 6units, 300-350 8 units, 350-400 10 units, greater than 400 call your doctor furosemide 40 mg tablet 1 tab PO QAM 0RF citalopram 10 mg tablet 1 tab PO QAM 0RF alendronate 70 mg tablet 1 tab PO QWEEK 0RF hydroxyzine HCl 50 mg tablet 1 tab PO TID PRN (Reason: Anxiety) 0RF prazosin 5 mg capsule 1 cap PO BEDTIME 0RF glimepiride 4 mg tablet 1 tab PO QPM 0RF divalproex 500 mg tablet extended release 24 hr 1,000 mg PO BEDTIME 0RF folic acid 1 mg tablet 1 tab PO QAM 0RF atenolol 50 mg tablet 1 tab PO 1200 0RF melatonin 5 mg tablet 1 - 2 tab PO BEDTIME PRN (Reason: insomnia) 0RF Latuda 60 mg tablet 1 tab PO QAM 0RF docusate sodium 100 mg Capsule 100 mg PO 1200 0RF quetiapine 400 mg tablet 1 tab PO BEDTIME 0RF ergocalciferol (vitamin D2) 50 mcg (2,000 unit) Tablet 50 mcg PO DAILY 0RF insulin lispro [Humalog KwikPen Insulin] 100 unit/mL insulin pen 12 - 18 unit subcut TID 30 Days Qty: 15 6RF (DME) pen needle, diabetic [BD Ultra-Fine Mary Pen Needle] 32 gauge x 5/32 needle See Rx Instructions .ROUTE .MEDSUPPLY Qty: 125 6RF Rx Instructions: As directed four times a day levothyroxine 137 mcg tablet 137 mcg PO DAILY 30 Days Qty: 30 6RF Referrals: Physician,Unknown J [Primary Care Provider] - 2 days
[2021-04-20 13:14] LABS: Glucose, Whole Blood 389 mg/dL (60-115)
[2021-04-20] MEDS: Albuterol Sulfate (0.083%) 2.5 MG/3 ML VIAL.NEB INHALE (13:42)
[2021-04-20 14:28] LABS: Venous Blood Gas Refer to POC result
[2021-04-20 14:29] LABS: VBG Base Excess 12.3 mmol/L; VBG HCO3 37 mmol/L (22-26); VBG pCO2 45 mmHg; VBG pH 7.51 (7.32-7.43); VBG pO2 92 mmHg
[2021-04-20 14:29] LABS: Basophils Absolute Auto 0.1 X10*3/uL (0.0-0.2); Basophils Percent Auto 1.1 % (0-2); Eosinophils Absolute Auto 0.2 X10*3/uL (0.0-0.4); Eosinophils Percent Auto 2.5 % (0-4); Hematocrit 46.6 % (37.0-47.0); Hemoglobin 14.9 g/dl (12.0-16.0); Imm Gran Abs Auto 0.11 X10*3/uL (0.00-0.03); Imm Gran Pct Auto 1.4 % (0.0-0.4); Lymphocytes Absolute Auto 3.8 X10*3/uL (1.2-4.9); Lymphocytes Percent Auto 47.3 % (20-40); MANUAL DIFF FLAG SCAN; Mean Corpuscular Hemoglobin 28.9 pg (27.0-33.0); Mean Corpuscular Volume 90.5 fL (80.0-98.0); Mean Platelet Volume 12.8 fL (9.4-12.3); Monocytes Absolute Auto 0.7 X10*3/uL (0.1-1.2); Neutrophils Absolute Auto 3.2 x10*3/uL (2.0-8.3); Neutrophils Percent Auto 39.7 % (45-73); PLT CLUMP 1; Red Blood Count 5.15 X10*6/uL (4.20-5.50); Red Cell Distribution Width 17.8 % (11.0-16.0); SCAN SMEAR FLAG 1
[2021-04-20] MEDS: 0.9 % Sodium Chloride 1,000 ML 999 ML IVCONT (14:30)
[2021-04-20 14:31] LABS: White Blood Count 8.1 X10*3/uL (4.8-10.8)
[2021-04-20] MEDS: Insulin Regular, Human 100 UNIT/ML 3 ML VIAL IVPUSH ×2 (14:41→17:08)
[2021-04-20 14:52] LABS: COVID-19 Test Negative (Negative); IDNOW Serial# 55D5AD1C
[2021-04-20 14:57] LABS: Troponin-I High Sensitivity 4.8 ng/L (<3.5-17.0); Valproate 78.9 mcg/mL (50.0-100.0)
[2021-04-20 14:58] LABS: Lactic Acid 2.8 mmol/L (0.5-2.0)
[2021-04-20 15:01] LABS: Appearance Urine CLEAR; Color Urine STRAW; Glucose Urine UA >=1000 MG/DL (NEG); Leukocyte Esterase Urine NEG (NEG); Nitrite Urine NEG (NEG); Specific Gravity - Urine <= 1.005 (1.005-1.025); Urine Blood NEG (NEG); Urine Ketones NEG (NEG); Urine Protein NEG (NEG-TRACE)
[2021-04-20 15:13] LABS: WBC Urine 0-2 /HPF (0-4)
[2021-04-20 15:15] LABS: Bacteria Urine TRACE /LPF; Squamous Epithelial Cell Urine TRACE /LPF
[2021-04-20 15:18] LABS: Platelet Count 207 X10*3/uL (160-400)
[2021-04-20 15:19] LABS: SLIDE REVIEW VERIFIED
[2021-04-20] MEDS: 0.9 % Sodium Chloride 1,000 ML 999 ML IV (15:36)
[2021-04-20 16:00] LABS: Glucose, Whole Blood 308 mg/dL (60-115)
[2021-04-20 16:24] LABS: Reflex Lactate? Lactic Acid Added
[2021-04-20 17:24] LABS: ~Lactic Acid-LAB USE ONLY 1.9 mmol/L (0.5-2.0)
[2021-04-20 17:31] LABS: Alanine Aminotransferase 7 U/L (0-31); Albumin Level 3.3 g/dL (3.5-5.0); Alkaline Phosphatase 64 U/L (39-117); Anion Gap 10 (12-20); Aspartate Amino Transferase 10 U/L (5-31); Bilirubin Direct < 0.2 mg/dL (0.0-0.5); Bilirubin Total 0.3 mg/dL (0.0-1.0); Blood Urea Nitrogen 14 mg/dL (9-16); Calcium 8.8 mg/dL (8.4-10.2); Carbon Dioxide 37 mmol/L (22-29); Chloride 89 mmol/L (96-108); Creatinine Clr Calc Pharmacy 127.2; Estimated Glomerular Filt Rate > 60; Glucose Random 261 mg/dL (60-115); Magnesium 2.1 mg/dL (1.6-2.6); Total Protein 6.1 g/dL (6.5-8.0)
[2021-04-20 17:52] LABS: Lipase 13 U/L (8-78); Potassium 4.3 mmol/L (3.3-5.1); Sodium 132 mmol/L (135-145)
--- NOTE | 2021-04-20 18:40 | PHA.MEDREC ---
Pharmacy Consult ? Medication Reconciliation Pharmacy has completed the medication reconciliation. SPOKE TO PATIENT AND USED PILL PACK FOR MEDICATIONS
== END 2021-04-20 18:42 | disposition home or self-care (01) ==
PROVIDERS: Emergency Provider Emergency Medicine
DX: E11.65 Type 2 diabetes mellitus with hyperglycemia (principal); G47.39 Other sleep apnea; Z20.822 Contact with and (suspected) exposure to COVID-19; I10 Essential (primary) hypertension; E78.5 Hyperlipidemia, unspecified; I25.2 Old myocardial infarction; Z79.02 Long term (current) use of antithrombotics/antiplatelets; Z79.4 Long term (current) use of insulin; F17.200 Nicotine dependence, unspecified, uncomplicated
CPT/HCPCS: 36415; 71045; 80048; 80076; 80164; 81001; 81003; 82803; 82947; 83605; 83690; 83735; 84484; 85025; 87635; 93005; 94640; 96361; 96374; 96376; 99284

== ENCOUNTER 2021-04-22 05:26 | Emergency (ER) | payer MEDICAID, SELFPAY ==
[2021-04-22] VITALS (10 sets, daily range): BP systolic 87–125; BP diastolic 52–95; PULSE 92–110; RESP 17–20; TEMP 36.4–36.6; O2SAT 92–96; BMI 61.2
--- NOTE | ~2021-04-22 | XR_ITS ---
EXAMINATION: XR CHEST CLINICAL INFORMATION: Cough question opacity. COMPARISON: Chest 04/22/2021 TECHNIQUE: 2 views of the chest were obtained. FINDINGS: The lungs are hypoexpanded with mild diffuse haziness in the right lung likely pleural effusion with underlying atelectasis. The left lung appears relatively clear. The heart size and pulmonary vascularity is normal. No gross bony abnormality.. XR/XR chest 2V IMPRESSION: Diffuse haziness right lung likely pleural effusion with right lower lobe atelectasis. The lungs are hypoexpanded. The findings are new compared to earlier exam at 6:24 AM
--- NOTE | ~2021-04-22 | XR_ITS ---
EXAMINATION: XR CHEST CLINICAL INFORMATION: Cough COMPARISON: 04/20/2021 TECHNIQUE: Frontal view of the chest was obtained. FINDINGS: The lungs are hypoinflated. There may be mild patchy opacity in the right upper lung. No evidence of pneumothorax or significant pleural effusion. Prominent cardiac silhouette may be accentuated by low lung volumes. No acute osseous findings are seen. XR/XR chest 1V IMPRESSION: Possible mild patchy opacity in the right upper lung, suboptimally assessed in the setting of low lung volumes. If possible, upright PA and lateral radiographs with improved inspiratory effort would be helpful.
--- NOTE | ~2021-04-22 | XR_ITS ---
EXAMINATION: XR KNEE, LEFT CLINICAL INFORMATION: Pain, fall COMPARISON: 04/23/2019 TECHNIQUE: Four views of the left knee. FINDINGS: Osseous alignment is anatomic. There is moderate to severe tricompartmental degenerative change with joint space narrowing and hypertrophic osteophyte formation as well as loose bodies. No acute fracture is seen. Multiple screws are redemonstrated in the distal femur along with mild contour deformity. There is also contour deformity of the proximal fibular diaphysis consistent with healed old fracture. Possible small knee effusion. XR/XR knee LT 3V IMPRESSION: No acute osseous findings identified. Chronic appearing and degenerative changes as noted above.
--- NOTE | ~2021-04-22 | CT_ITS ---
EXAMINATION: CT CHEST WITHOUT CONTRAST CLINICAL INFORMATION: Low O2 sats. COMPARISON: Chest x-ray 04/22/2021. TECHNIQUE: Multidetector volumetric CT imaging of the chest was done. Axial MIP volume rendering provided. Sagittal and coronal reformatted images were obtained. This CT examination was performed using dose optimization techniques as appropriate, variously including the following: *Automated exposure control *Adjustment of mA and/or kV according to patient size (this includes techniques or standardized protocols for targeted exams where dose is matched to indication/reason for exam; i.e. 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 LUNGS: The lungs are hypoexpanded with dependent atelectatic changes in both lung bases. Minimal atelectatic changes also seen in the anterior segment of right upper lobe and lateral segment of left lower lobe. MEDIASTINUM: The thyroid lobes are symmetrical and enlarged. The central trachea and the bronchi widely patent. Heart size is enlarged. The great vessels are normal caliber. There is no pericardial effusion seen. No abnormal-sized mediastinal lymphadenopathy seen. PLEURA: Minimal posterior pleural thickening is seen. No evidence of pleural effusion. AXILLA: No lymphadenopathy. UPPER ABDOMEN: Visualized liver, spleen, pancreas and bilateral adrenal glands are unremarkable. There is a solitary radiopaque 2.9 cm gallstone. No wall thickening seen. OSSEOUS STRUCTURES: There is mild S-shaped scoliosis of the dorsal spine. No lytic or sclerotic process seen. CT/CT chest wo con IMPRESSION: Hypoexpanded lungs with dependent bibasilar atelectasis. No consolidation or mass seen. There are atelectatic changes in the lateral segment of the left lower lobe and anterior segment of the right upper lobe. There is no acute cardiopulmonary process. Fleischner guidelines were followed.
--- NOTE | 2021-04-22 05:42 | ECG_ITS ---
Test Reason : FALLS Blood Pressure : / mmHG Vent. Rate : 113 BPM Atrial Rate : 113 BPM P-R Int : 186 ms QRS Dur : 084 ms QT Int : 332 ms P-R-T Axes : 054 -52 079 degrees QTc Int : 455 ms Sinus tachycardia Left anterior fascicular block Inferior infarct (cited on or before 20-APR-2021) Abnormal ECG When compared with ECG of 20-APR-2021 13:30, Vent. rate has increased BY 42 BPM Nonspecific T wave abnormality no longer evident in Inferior leads Nonspecific T wave abnormality no longer evident in Anterior leads Referred By: Niki Cruz Electronically Signed By:CHRISSY GALLARDO
--- NOTE | 2021-04-22 05:44 | ED_ITS ---
HPI - Fall General Chief Complaint: Fall Stated Complaint: FREQUENT FALLS Time Seen by Provider: 04/22/21 05:41 Source: patient Mode of arrival: EMS History of Present Illness HPI Narrative: 51-year-old female with history of obesity, diabetes, hyperlipidemia, MORGAN, hypertension, migraines, mi and schizoaffective disorder who is brought in by EMS for suffering multiple falls in her apartment with feelings of dizziness but denies any shortness of breath, chest pain, nausea, vomiting, diarrhea or abdominal pain. Patient's primary concern right now is the pain in her knees, left greater than right. EMS states that took for traffic line painter to get the patient out of her small, basement apartment. Related Data Home Medications Medication Instructions Recorded Confirmed amitriptyline 10 mg tablet 10 mg PO BEDTIME 01/10/20 04/20/21 atorvastatin 20 mg tablet 20 mg PO BEDTIME 01/10/20 04/20/21 benztropine 1 mg tablet 1 mg PO 1200,2100 01/10/20 04/20/21 budesonide-formoterol HFA 160 2 puff INHALATION BID 01/10/20 04/20/21 mcg-4.5 mcg/actuation aerosol inhaler (Symbicort) divalproex 500 mg 500 mg PO 1200 01/10/20 04/20/21 tablet,delayed release lisinopril 10 mg tablet 10 mg PO BEDTIME 01/10/20 04/20/21 montelukast 10 mg tablet 10 mg PO BEDTIME 01/10/20 04/20/21 multivitamin 1 tab PO DAILY 01/10/20 04/20/21 thiamine HCl (vitamin B1) 100 100 mg PO DAILY 01/10/20 04/20/21 mg tablet tiotropium bromide 18 mcg 1 cap INHALATION DAILY 01/10/20 04/20/21 capsule with inhalation device (Spiriva with HandiHaler) atenolol 50 mg tablet 1 tab PO 1200 04/20/21 04/20/21 citalopram 10 mg tablet 1 tab PO QAM 04/20/21 04/20/21 divalproex 500 mg 1,000 mg PO BEDTIME 04/20/21 04/20/21 tablet,extended release 24 hr docusate sodium 100 mg capsule 100 mg PO 1200 04/20/21 04/20/21 ergocalciferol (vitamin D2) 50 50 mcg PO DAILY 04/20/21 04/20/21 mcg (2,000 unit) tablet folic acid 1 mg tablet 1 tab PO QAM 04/20/21 04/20/21 furosemide 40 mg tablet 1 tab PO QAM 04/20/21 04/20/21 glimepiride 4 mg tablet 1 tab PO QPM 04/20/21 04/20/21 lurasidone 60 mg tablet 1 tab PO QAM 04/20/21 04/20/21 (Latuda) melatonin 5 mg tablet 1 - 2 tab PO BEDTIME PRN 04/20/21 04/20/21 prazosin 5 mg capsule 1 cap PO BEDTIME 04/20/21 04/20/21 quetiapine 400 mg tablet 1 tab PO BEDTIME 04/20/21 04/20/21 Previous Rx's Medication Instructions Recorded leg brace (Ankle Brace) #1 ea 01/22/20 insulin glargine 100 unit/mL (3 40 unit (0.4 mL) SUBCUT QPM #15 ml 08/10/20 mL) subcutaneous pen (Lantus Solostar U-100 Insulin) insulin regular human 100 unit/mL 1 sliding scale dose SUBCUT 08/10/20 injection solution USEASDIRECTD #10 ml levothyroxine 137 mcg tablet 137 mcg PO DAILY 30 Days #30 tab 03/17/21 tramadol 50 mg tablet 50 mg PO BID PRN #30 tab 03/18/21 pen needle, diabetic 32 gauge x #125 ea 04/20/21 (BD Ultra-Fine Mary Pen Needle) Allergies Allergy/AdvReac Type Severity Reaction Status Date / Time metformin Allergy Intermediate Diarrhea Verified 03/17/21 10:52 morphine [MORPHINE] Allergy Intermediate Hives Verified 03/17/21 10:52 tetracycline Allergy Intermediate hives Verified 03/17/21 10:52 haloperidol [From AdvReac Intermediate Irritable Verified 03/17/21 10:52 HALDOL] duramorph/derivative Allergy Intermediate hives Uncoded 03/17/21 10:52 or morphi Review of Systems Verdana 4l Review of Systems: Verdana 4d Pertinent positives and Verdana 4d negatives as stated in HPI 10 point review of systems is otherwise negative. Verdana 4d PMFSH Past Medical History Source: nursing notes reviewed Medical History ADHD Aortic aneurysm Arthritis Asthma Back pain Depression Diabetes Diabetes Fibula fracture Gallstone GERD (gastroesophageal reflux disease) Goiter Hepatitis Hernia History of posttraumatic stress disorder (PTSD) HTN (hypertension) Hx of fracture of patella Hypothyroidism Migraine Morbid obesity Myocardial infarction Obesity due to excess calories PTSD (post-traumatic stress disorder) Schizo affective schizophrenia Sleep apnea Umbilical hernia Vitamin D deficiency Surgical History History of incision and drainage Hx of knee surgery Hx of tubal ligation Tubal ligation status Family History Family History Father Unknown family medical history Mother No problems noted. Sister Ovarian cancer Social History Social History Household Members: None Alcohol intake: never Cigarette Packs Per Day: 0.5 Cigarettes Per Day: 10.0 Years Smoked: 35 Advance Directives: No Advance Directives Information Provided: No Patient : No Physical Exam Verdana 4l Vital Signs: Verdana 4d Verdana 4d Vital Signs: Verdana 4d Verdana 4Bd Last Vital Signs Verdana 4d Sales And Service Officer New 4d Sales And Service Officer New 4d Temp 97.7 F 04/22/21 05:40 Sales And Service Officer New 4d Resp 20 04/22/21 05:40 Sales And Service Officer New 4d BP 98/58 L 04/22/21 05:40 Pulse Ox 92 04/22/21 05:40 Oxygen Flow Rate 3 04/22/21 05:40 BMI result Body Mass Index 61.2 VITAL SIGNS: Reviewed. GENERAL: Morbidly obese,Chronically ill, appears older than stated age in no acute distress. HEAD: Normocephalic/atraumatic EYES: PERRLA, EOMI OROPHARYNX: no oral lesions noted, posterior pharynx clear NECK: Supple, no adenopathy LUNGS: Normal breath sounds. No adventitious sounds or accessory muscle use. SpO2<92> on 3 L nasal cannula CARDIOVASCULAR: Regular rate and rhythm without noted murmurs, no JVD or lower extremity edema. ABDOMEN: Obese, Soft, non-tender, non-distended with bowel sounds. MUSCULOSKELETAL: No tenderness, deformities, or effusions noted on gross ins pection, bilateral knee tenderness on palpation without obvious effusions/erythema EXTREMITIES: No cyanosis, clubbing or edema. SKIN: Inspection of the skin reveals no rashes NEUROLOGIC: Alert and oriented x 4. Strength and sensation to light touch were grossly intact x 4. Course Course Course Narrative: 51-year-old female with history and clinical presentation consistent with symptoms secondary to hyperglycemia and poor health. The noted slight elevation of lactic acid is likely secondary to patient's underlying CPAP requirement while sleeping as it is no evidence of infection, anemia, or changes on EKG. Patient is not in DKA or HHS although there is a noted mild elevation to her creatinine level. Signed out to Dr Delacruz: f/u remaining labs and knee x-rays. fall Lab Data Result diagrams: 04/22/21 05:59 04/22/21 05:59 Labs: Lab Results 04/22/21 04/22/21 04/22/21 Range/Units 05:45 05:59 05:59 WBC 6.8 (4.8-10.8) X10*3/uL RBC 4.95 (4.20-5.50) X10*6/uL Hgb 14.2 (12.0-16.0) g/dl Hct 45.6 (37.0-47.0) % MCV 92.1 (80.0-98.0) fL MCH 28.7 (27.0-33.0) pg MCHC 31.1 (31.0-35.0) g/dl RDW 18.4 H (11.0-16.0) % Plt Count 192 (160-400) X10*3/uL MPV 13.0 H (9.4-12.3) fL Immature Gran % (Auto) 1.6 H (0.0-0.4) % Neut % (Auto) 55.9 (45-73) % Lymph % (Auto) 30.6 (20-40) % [place] % (Auto) 9.3 (2-11) % Eos % (Auto) 1.9 (0-4) % Baso % (Auto) 0.7 (0-2) % Lymph # (Auto) 2.1 (1.2-4.9) X10*3/uL [place] # (Auto) 0.6 (0.1-1.2) X10*3/uL Eos # (Auto) 0.1 (0.0-0.4) X10*3/uL Baso # (Auto) 0.1 (0.0-0.2) X10*3/uL Abs Immat Gran (auto) 0.11 H (0.00-0.03) X10*3/uL Absolute Neuts (auto) 3.8 (2.0-8.3) x10*3/uL Absolute Nucleated RBC 0.000 (0.0-0.012) X10*3/uL Nucleated RBC % (auto) 0.0 (0.0-0.2) /100WBC PT (9.9-13.0) SEC INR (0.9-1.1) VBG pH (7.32-7.43) VBG pCO2 mmHg VBG pO2 mmHg VBG HCO3 (22-26) mmol/L VBG O2 Saturation % VBG Base Excess mmol/L Sodium 131 L (135-145) mmol/L Potassium 4.8 (3.3-5.1) mmol/L Chloride 88 L (96-108) mmol/L Carbon Dioxide 34 H (22-29) mmol/L Anion Gap 14 (12-20) BUN 15 (9-16) mg/dL Creatinine 1.43 H (0.5-1.4) mg/dL Estim Creat Clear Calc 80.2 Estimated GFR 39 POC Glucose 455 H* (60-115) mg/dL Random Glucose 481 H* (60-115) mg/dL Lactic Acid (0.5-2.0) mmol/L Calcium 9.4 D (8.4-10.2) mg/dL Magnesium 2.3 (1.6-2.6) mg/dL Total Bilirubin 0.4 (0.0-1.0) mg/dL AST 16 D (5-31) U/L ALT 12 (0-31) U/L Alkaline Phosphatase 75 (39-117) U/L Troponin I High Sens (<3.5-17.0) ng/L B-Natriuretic Peptide (<100) pg/mL Total Protein 6.5 (6.5-8.0) g/dL Albumin 3.4 L (3.5-5.0) g/dL Lipase 13 (8-78) U/L Urine Color Urine Appearance Urine pH (5.0-8.0) Ur Specific [place] (1.005-1.025) Urine Protein (NEG-TRACE) MG/DL Urine Glucose (UA) (NEG) MG/DL Urine Ketones (NEG) MG/DL Urine Blood (NEG) Urine Nitrite (NEG) Ur Leukocyte Esterase (NEG) Urine RBC (0) /HPF Urine WBC (0-4) /HPF Ur Squamous Epith Cells /LPF Urine Bacteria /LPF Acetone, Qual Negative (Negative) COVID-19 (JEFFRY) (Negative) COVID-19 Clin Com 04/22/21 04/22/21 04/22/21 Range/Units 05:59 05:59 05:59 WBC (4.8-10.8) X10*3/uL RBC (4.20-5.50) X10*6/uL Hgb (12.0-16.0) g/dl Hct (37.0-47.0) % MCV (80.0-98.0) fL MCH (27.0-33.0) pg MCHC (31.0-35.0) g/dl RDW (11.0-16.0) % Plt Count (160-400) X10*3/uL MPV (9.4-12.3) fL Immature Gran % (Auto) (0.0-0.4) % Neut % (Auto) (45-73) % Lymph % (Auto) (20-40) % [place] % (Auto) (2-11) % Eos % (Auto) (0-4) % Baso % (Auto) (0-2) % Lymph # (Auto) (1.2-4.9) X10*3/uL [place] # (Auto) (0.1-1.2) X10*3/uL Eos # (Auto) (0.0-0.4) X10*3/uL Baso # (Auto) (0.0-0.2) X10*3/uL Abs Immat Gran (auto) (0.00-0.03) X10*3/uL Absolute Neuts (auto) (2.0-8.3) x10*3/uL Absolute Nucleated RBC (0.0-0.012) X10*3/uL Nucleated RBC % (auto) (0.0-0.2) /100WBC PT 10.7 (9.9-13.0) SEC INR 0.9 (0.9-1.1) VBG pH (7.32-7.43) VBG pCO2 mmHg VBG pO2 mmHg VBG HCO3 (22-26) mmol/L VBG O2 Saturation % VBG Base Excess mmol/L Sodium (135-145) mmol/L Potassium (3.3-5.1) mmol/L Chloride (96-108) mmol/L Carbon Dioxide (22-29) mmol/L Anion Gap (12-20) BUN (9-16) mg/dL Creatinine (0.5-1.4) mg/dL Estim Creat Clear Calc Estimated GFR POC Glucose (60-115) mg/dL Random Glucose (60-115) mg/dL Lactic Acid 2.3 H* (0.5-2.0) mmol/L Calcium (8.4-10.2) mg/dL Magnesium (1.6-2.6) mg/dL Total Bilirubin (0.0-1.0) mg/dL AST (5-31) U/L ALT (0-31) U/L Alkaline Phosphatase (39-117) U/L Troponin I High Sens 8.3 D (<3.5-17.0) ng/L B-Natriuretic Peptide 18 (<100) pg/mL Total Protein (6.5-8.0) g/dL Albumin (3.5-5.0) g/dL Lipase (8-78) U/L Urine Color Urine Appearance Urine pH (5.0-8.0) Ur Specific [place] (1.005-1.025) Urine Protein (NEG-TRACE) MG/DL Urine Glucose (UA) (NEG) MG/DL Urine Ketones (NEG) MG/DL Urine Blood (NEG) Urine Nitrite (NEG) Ur Leukocyte Esterase (NEG) Urine RBC (0) /HPF Urine WBC (0-4) /HPF Ur Squamous Epith Cells /LPF Urine Bacteria /LPF Acetone, Qual (Negative) COVID-19 (JEFFRY) (Negative) COVID-19 Clin Com 04/22/21 04/22/21 04/22/21 Range/Units 05:59 05:59 06:11 WBC (4.8-10.8) X10*3/uL RBC (4.20-5.50) X10*6/uL Hgb (12.0-16.0) g/dl Hct (37.0-47.0) % MCV (80.0-98.0) fL MCH (27.0-33.0) pg MCHC (31.0-35.0) g/dl RDW (11.0-16.0) % Plt Count (160-400) X10*3/uL MPV (9.4-12.3) fL Immature Gran % (Auto) (0.0-0.4) % Neut % (Auto) (45-73) % Lymph % (Auto) (20-40) % [place] % (Auto) (2-11) % Eos % (Auto) (0-4) % Baso % (Auto) (0-2) % Lymph # (Auto) (1.2-4.9) X10*3/uL [place] # (Auto) (0.1-1.2) X10*3/uL Eos # (Auto) (0.0-0.4) X10*3/uL Baso # (Auto) (0.0-0.2) X10*3/uL Abs Immat Gran (auto) (0.00-0.03) X10*3/uL Absolute Neuts (auto) (2.0-8.3) x10*3/uL Absolute Nucleated RBC (0.0-0.012) X10*3/uL Nucleated RBC % (auto) (0.0-0.2) /100WBC PT (9.9-13.0) SEC INR (0.9-1.1) VBG pH 7.43 (7.32-7.43) VBG pCO2 58 mmHg VBG pO2 67 mmHg VBG HCO3 39 H (22-26) mmol/L VBG O2 Saturation 93.0 % VBG Base Excess 12.2 mmol/L Sodium (135-145) mmol/L Potassium (3.3-5.1) mmol/L Chloride (96-108) mmol/L Carbon Dioxide (22-29) mmol/L Anion Gap (12-20) BUN (9-16) mg/dL Creatinine (0.5-1.4) mg/dL Estim Creat Clear Calc Estimated GFR POC Glucose (60-115) mg/dL Random Glucose (60-115) mg/dL Lactic Acid (0.5-2.0) mmol/L Calcium (8.4-10.2) mg/dL Magnesium (1.6-2.6) mg/dL Total Bilirubin (0.0-1.0) mg/dL AST (5-31) U/L ALT (0-31) U/L Alkaline Phosphatase (39-117) U/L Troponin I High Sens (<3.5-17.0) ng/L B-Natriuretic Peptide (<100) pg/mL Total Protein (6.5-8.0) g/dL Albumin (3.5-5.0) g/dL Lipase (8-78) U/L Urine Color YELLOW Urine Appearance CLEAR Urine pH 6.5 (5.0-8.0) Ur Specific [place] <= 1.005 (1.005-1.025) Urine Protein NEG (NEG-TRACE) MG/DL Urine Glucose (UA) >=1000 H (NEG) MG/DL Urine Ketones NEG (NEG) MG/DL Urine Blood NEG (NEG) Urine Nitrite NEG (NEG) Ur Leukocyte Esterase NEG (NEG) Urine RBC 0-2 (0) /HPF Urine WBC 0 (0-4) /HPF Ur Squamous Epith Cells TRACE /LPF Urine Bacteria NONE /LPF Acetone, Qual (Negative) COVID-19 (JEFFRY) Negative (Negative) COVID-19 Clin Com See Note ECG Data Attestation: I personally reviewed and interpreted this ECG as follows: Prior ECG tracings: available for review (04/20/2021) Interpretation: Sinus tachycardia, HR-113, no STEMI, CO/QRS/QTC are within normal limits. Discharge Plan Discharge Clinical Impression: Dizziness, Falls frequently Patient Disposition: Still a Patient Prescriptions: No Action (DME) Ankle Brace Misc See Rx Instructions .ROUTE .MEDSUPPLY Qty: 1 0RF Rx Instructions: AIRSELECT, STANDARD, MEDIUM tramadol 50 mg tablet 50 mg PO BID PRN (Reason: Pain) Qty: 30 0RF multivitamin Tablet 1 tab PO DAILY 0RF atorvastatin 20 mg Tablet 20 mg PO BEDTIME 0RF thiamine HCl (vitamin B1) 100 mg Tablet 100 mg PO DAILY 0RF divalproex 500 mg Tablet,Delayed Release (Dr/Ec) 500 mg PO 1200 0RF amitriptyline 10 mg Tablet 10 mg PO BEDTIME 0RF lisinopril 10 mg Tablet 10 mg PO BEDTIME 0RF benztropine 1 mg Tablet 1 mg PO 1200,2100 0RF montelukast 10 mg Tablet 10 mg PO BEDTIME 0RF Spiriva with HandiHaler 18 mcg Capsule, W/Inhalation Device 1 cap INHALATION DAILY 0RF budesonide-formoterol [Symbicort] 160-4.5 mcg/actuation Hfa Aerosol Inhaler 2 puff INHALATION BID 0RF Lantus Solostar U-100 Insulin 100 unit/mL (3 mL) insulin pen 40 unit subcut QPM Qty: 15 0RF insulin regular human 100 unit/mL solution 1 sliding scale dose subcut USEASDIRECTD Qty: 10 0RF Rx Instructions: Glucose 200-250 4units, 250-300 6units, 300-350 8 units, 350-400 10 units, greater than 400 call your doctor furosemide 40 mg tablet 1 tab PO QAM 0RF citalopram 10 mg tablet 1 tab PO QAM 0RF prazosin 5 mg capsule 1 cap PO BEDTIME 0RF glimepiride 4 mg tablet 1 tab PO QPM 0RF divalproex 500 mg tablet extended release 24 hr 1,000 mg PO BEDTIME 0RF folic acid 1 mg tablet 1 tab PO QAM 0RF atenolol 50 mg tablet 1 tab PO 1200 0RF melatonin 5 mg tablet 1 - 2 tab PO BEDTIME PRN (Reason: insomnia) 0RF Latuda 60 mg tablet 1 tab PO QAM 0RF docusate sodium 100 mg Capsule 100 mg PO 1200 0RF quetiapine 400 mg tablet 1 tab PO BEDTIME 0RF ergocalciferol (vitamin D2) 50 mcg (2,000 unit) Tablet 50 mcg PO DAILY 0RF (DME) pen needle, diabetic [BD Ultra-Fine Mary Pen Needle] 32 gauge x 5/32 needle See Rx Instructions .ROUTE .MEDSUPPLY Qty: 125 6RF Rx Instructions: As directed four times a day levothyroxine 137 mcg tablet 137 mcg PO DAILY 30 Days Qty: 30 6RF
[2021-04-22 05:49] LABS: Glucose, Whole Blood 455 mg/dL (60-115)
[2021-04-22] MEDS: Ketorolac Tromethamine 30 MG/ML VIAL 15 MG IVPUSH (06:12)
[2021-04-22] MEDS: Acetaminophen 325 MG TABLET 975 MG PO (06:12)
[2021-04-22 06:13] LABS: MANUAL DIFF FLAG NO
[2021-04-22 06:15] LABS: Appearance Urine CLEAR; Color Urine YELLOW; Glucose Urine UA >=1000 MG/DL (NEG); Leukocyte Esterase Urine NEG (NEG); Nitrite Urine NEG (NEG); PH 6.5 (5.0-8.0); Specific Gravity - Urine <= 1.005 (1.005-1.025); Urine Blood NEG (NEG); Urine Ketones NEG (NEG); Urine Protein NEG (NEG-TRACE)
[2021-04-22 06:16] LABS: Venous Blood Gas Refer to POC result
[2021-04-22 06:17] LABS: VBG Base Excess 12.2 mmol/L; VBG HCO3 39 mmol/L (22-26); VBG pCO2 58 mmHg; VBG pH 7.43 (7.32-7.43); VBG pO2 67 mmHg
[2021-04-22 06:18] LABS: Basophils Absolute Auto 0.1 X10*3/uL (0.0-0.2); Basophils Percent Auto 0.7 % (0-2); Eosinophils Absolute Auto 0.1 X10*3/uL (0.0-0.4); Eosinophils Percent Auto 1.9 % (0-4); Hematocrit 45.6 % (37.0-47.0); Hemoglobin 14.2 g/dl (12.0-16.0); Imm Gran Abs Auto 0.11 X10*3/uL (0.00-0.03); Imm Gran Pct Auto 1.6 % (0.0-0.4); Lymphocytes Absolute Auto 2.1 X10*3/uL (1.2-4.9); Lymphocytes Percent Auto 30.6 % (20-40); Mean Corpuscular HGB Conc 31.1 g/dl (31.0-35.0); Mean Corpuscular Hemoglobin 28.7 pg (27.0-33.0); Mean Corpuscular Volume 92.1 fL (80.0-98.0); Monocytes Absolute Auto 0.6 X10*3/uL (0.1-1.2); Monocytes Percent Auto 9.3 % (2-11); Neutrophils Absolute Auto 3.8 x10*3/uL (2.0-8.3); Neutrophils Percent Auto 55.9 % (45-73); Platelet Count 192 X10*3/uL (160-400); Red Blood Count 4.95 X10*6/uL (4.20-5.50); Red Cell Distribution Width 18.4 % (11.0-16.0); White Blood Count 6.8 X10*3/uL (4.8-10.8)
[2021-04-22 06:21] LABS: Acetone, serum QL Negative (Negative)
[2021-04-22 06:29] LABS: COVID-19 Test Negative (Negative); IDNOW Serial# 9DD0AD1C
[2021-04-22 06:32] LABS: Lactic Acid 2.3 mmol/L (0.5-2.0)
[2021-04-22 06:36] LABS: RBC Urine 0-2 /HPF (0); Squamous Epithelial Cell Urine TRACE /LPF; WBC Urine 0 /HPF (0-4)
[2021-04-22 06:38] LABS: B Type Natriuretic Peptide 18 pg/mL (<100); Troponin-I High Sensitivity 8.3 ng/L (<3.5-17.0)
[2021-04-22 06:40] LABS: INTERNATIONAL NORM RATIO 0.9 (0.9-1.1); Prothrombin Time 10.7 SEC (9.9-13.0)
[2021-04-22 06:42] LABS: Alanine Aminotransferase 12 U/L (0-31); Albumin Level 3.4 g/dL (3.5-5.0); Alkaline Phosphatase 75 U/L (39-117); Anion Gap 14 (12-20); Aspartate Amino Transferase 16 U/L (5-31); Bilirubin Total 0.4 mg/dL (0.0-1.0); Blood Urea Nitrogen 15 mg/dL (9-16); Calcium 9.4 mg/dL (8.4-10.2); Carbon Dioxide 34 mmol/L (22-29); Chloride 88 mmol/L (96-108); Creatinine Clr Calc Pharmacy 80.2; Estimated Glomerular Filt Rate 39; Glucose Random 481 mg/dL (60-115); Lipase 13 U/L (8-78); Magnesium 2.3 mg/dL (1.6-2.6); Potassium 4.8 mmol/L (3.3-5.1); Sodium 131 mmol/L (135-145); Total Protein 6.5 g/dL (6.5-8.0)
[2021-04-22] MEDS: 0.9 % Sodium Chloride 1,000 ML 999 ML IV (07:22)
[2021-04-22] MEDS: Insulin Regular, Human 100 UNIT/ML 3 ML VIAL 10 UNIT IVPUSH (07:24)
[2021-04-22 07:57] LABS: Glucose, Whole Blood 414 mg/dL (60-115)
[2021-04-22 08:11] LABS: Reflex Lactate? Lactic Acid Added
[2021-04-22] MEDS: traMADoL HCL 50 MG TABLET PO (08:35)
[2021-04-22 09:43] LABS: Glucose, Whole Blood 412 mg/dL (60-115)
--- NOTE | 2021-04-22 09:43 | PHA.MEDREC ---
Pharmacy Consult ? Medication Reconciliation Pharmacy has completed the medication reconciliation. Patient use [facility] to get medbox. Confirmed with pharmacy what medication on in medbox. Chantel White, FabioD
[2021-04-22] MEDS: Levothyroxine Sodium 112 MCG TABLET PO (10:00)
[2021-04-22] MEDS: Multivitamin TABLET 1 TAB PO (10:00)
[2021-04-22] MEDS: Folic Acid 1 MG TABLET PO (10:00)
[2021-04-22] MEDS: Levothyroxine Sodium 25 MCG TABLET PO (10:01)
[2021-04-22] MEDS: Albuterol Sulfate (0.083%) 2.5 MG/3 ML VIAL.NEB INHALE ×3 (11:17→19:48)
--- NOTE | 2021-04-22 11:37 | PC.NURSE ---
Pt tolerated repositioning with minimal pain. linnens straightened and pure whick placed. 300ml out.
[2021-04-22 12:25] LABS: Glucose, Whole Blood 461 mg/dL (60-115)
[2021-04-22] MEDS: Insulin Lispro 100 UNIT/ML 3 ML VIAL SUBCUT ×3 (12:28→22:59)
[2021-04-22] MEDS: Thiamine HCL 100 MG TABLET PO (12:29)
[2021-04-22] MEDS: Divalproex Sodium 500 MG TABLET.DR PO (12:29)
[2021-04-22] MEDS: Benztropine Mesylate 1 MG TABLET PO ×2 (12:29→22:57)
--- NOTE | 2021-04-22 15:32 | MHC.CM.ED ---
Received case management consult from Dr Delacruz. Patient came to ER due to fall. Physical therapy eval completed. It is being recommended that patient go to a custodial. Per Lyla PT, patient is agreeable. Patient weighs 389lbs. Copy of HCP requested from [facility]. Patient received Pfizer vaccines on 11/20 and 02/24. Due to patient's weight, she will be difficult to place. Referral broadcasted within 50 miles of patient's residence. No bed offers made yet. Continue to monitor for d/c needs.
[2021-04-22 16:55] LABS: Glucose, Whole Blood 523 mg/dL (60-115)
[2021-04-22] MEDS: Prazosin HCL 5 MG CAPSULE PO (21:00)
[2021-04-22] MEDS: Amitriptyline HCl 10 MG TABLET PO (21:30)
--- NOTE | 2021-04-22 22:20 | PC.NURSE ---
Pt crying in room. pt moved to hospital bed for comfort. VS obtained.
[2021-04-22 22:44] LABS: Glucose, Whole Blood 506 mg/dL (60-115)
[2021-04-22] MEDS: Atorvastatin Calcium 20 MG TABLET PO (22:56)
[2021-04-22] MEDS: Divalproex Sodium ER 500 MG TAB.ER.24H 1000 MG PO (22:57)
[2021-04-22] MEDS: QUEtiapine Fumarate 400 MG TABLET PO (22:58)
[2021-04-22] MEDS: Montelukast Sodium 10 MG TABLET PO (22:58)
[2021-04-22] MEDS: Melatonin 3 MG TABLET 6 MG PO (22:58)
[2021-04-22] MEDS: Insulin Glargine,Hum.rec.anlog 100 UNIT/ML 10 ML VIAL 40 UNIT SUBCUT (22:58)
[2021-04-23 01:00] VITALS: BP 106/81; PULSE 84; RESP 18
--- NOTE | 2021-04-23 01:21 | PC.NURSE ---
pt medicated as per emar.
[2021-04-23 01:36] LABS: Glucose, Whole Blood 363 mg/dL (60-115)
[2021-04-23 06:21] VITALS: BP 127/80; PULSE 104; RESP 18
[2021-04-23] MEDS: Levothyroxine Sodium 112 MCG TABLET PO (06:37)
[2021-04-23] MEDS: Levothyroxine Sodium 25 MCG TABLET PO (06:38)
--- NOTE | 2021-04-23 06:39 | PC.NURSE ---
pt medicated as per emar. VS obtained. pt cleaned up, purwick draining clear yellow urine. canister emptied approx 800ml. yellow urine emptied.
[2021-04-23] MEDS: Albuterol Sulfate (0.083%) 2.5 MG/3 ML VIAL.NEB INHALE (07:31)
[2021-04-23 07:32] VITALS: PULSE 105; RESP 18; O2SAT 98
[2021-04-23 07:35] VITALS: BP 117/75; PULSE 105; RESP 20; TEMP 36.9; O2SAT 96
[2021-04-23 07:50] LABS: Glucose, Whole Blood 337 mg/dL (60-115)
[2021-04-23] MEDS: traMADoL HCL 50 MG TABLET PO (08:48)
[2021-04-23] MEDS: Folic Acid 1 MG TABLET PO (08:48)
[2021-04-23] MEDS: Cholecalciferol (Vitamin D3) 25 MCG TABLET 50 MCG PO (08:48)
[2021-04-23] MEDS: Lurasidone HCl 20 MG TABLET 60 MG PO (08:49)
[2021-04-23] MEDS: Fluticasone Propionate Nasal 16 GM SPRAY 1 SPRAY NOSTRIL-B (08:49)
[2021-04-23] MEDS: Insulin Lispro 100 UNIT/ML 3 ML VIAL SUBCUT ×2 (08:59→12:53)
--- NOTE | 2021-04-23 08:59 | MHC.CM.PN ---
Addendum entered by Angie Qiu 04/23/21 12:03: [facility] IS OFFERING PT A STR BED TODAY. PT WILL TRANSPORT AT 1300 HOURS VIA [facility] NURSE AND PT ARE AWARE. Original Note: PT IN ED06 AWAITING SNF PLACEMENT. CM MET WITH PT TO DISCUSS DC PLANNING. PT REPORTS SHE IS INTERESTED IN STR ONLY, SHE STATES SHE HAS A HOME THAT SHE PLANS TO RETURN TO FOLLOWING REHAB. PT REPORTS SHE WOULD LIKE TO STAY IN [place] HOWEVER SHE HAS BEEN TO [facility] IN THE PAST AND WOULD BE WILLING TO GO THERE AGAIN. REFERRALS WERE UPDATED AND SEVERAL FACILITIES WERE ADDED INCLUDING [facility]. [facility] IS CURRENTLY REVIEWING, AWAITING RESPONSES FROM THE REST OF THE [facility]'S
--- NOTE | 2021-04-23 09:10 | PC.NURSE ---
rn to rn report given to cheryl for the overflow unit. pt aware of plan of care for transfer to overflow unit.
[2021-04-23 09:33] VITALS: BP 103/76; PULSE 111; RESP 20; TEMP 37; O2SAT 96
[2021-04-23] MEDS: Multivitamin TABLET 1 TAB PO (10:27)
[2021-04-23] MEDS: Acetaminophen 325 MG TABLET 650 MG PO (11:38)
--- NOTE | 2021-04-23 11:39 | PC.NURSE ---
Plan for [facility] transfer at 1300
[2021-04-23 11:53] VITALS: O2SAT 92
--- NOTE | 2021-04-23 12:02 | PC.NURSE ---
Called [facility] for nurse to nurse, they will call this RN back after assuring authorization was obtained for admission
--- NOTE | 2021-04-23 12:21 | PC.NURSE ---
Report given to Marleen at [facility]
[2021-04-23 12:38] LABS: Glucose, Whole Blood 325 mg/dL (60-115)
== END 2021-04-23 13:42 | disposition skilled nursing facility (03) ==
PROVIDERS: Student in an Organized Health Care Education/Training Program; Emergency Provider Emergency Medicine; PCP Registered Nurse
DX: R42 Dizziness and giddiness (principal); E11.65 Type 2 diabetes mellitus with hyperglycemia; M25.561 Pain in right knee; M25.562 Pain in left knee; R29.6 Repeated falls; R00.0 Tachycardia, unspecified; Z20.822 Contact with and (suspected) exposure to COVID-19; E78.5 Hyperlipidemia, unspecified; I10 Essential (primary) hypertension; E66.01 Morbid (severe) obesity due to excess calories; F17.200 Nicotine dependence, unspecified, uncomplicated; Z79.4 Long term (current) use of insulin; Z79.02 Long term (current) use of antithrombotics/antiplatelets
CPT/HCPCS: 36415; 51701; 71045; 71046; 71250; 73562; 80053; 81001; 82009; 82803; 82947; 83605; 83690; 83735; 83880; 84484; 85025; 85610; 87040; 87635; 93005; 94640; 96361; 96374; 96375; 97162; 99285; J1885

== ENCOUNTER → 2021-05-04 11:33 | Outpatient (BNVA) | payer MEDICAID, SELFPAY | PROVIDERS: PCP Registered Nurse; Visit Provider Registered Nurse Diabetes Educator | DX: E11.9 Type 2 diabetes mellitus without complications (principal) | CPT/HCPCS: 98968 ==

== ENCOUNTER → 2021-06-18 09:51 | Outpatient (BNVA) | payer MEDICAID, SELFPAY | PROVIDERS: PCP Registered Nurse; Visit Provider Registered Nurse Diabetes Educator | DX: E11.9 Type 2 diabetes mellitus without complications (principal) | CPT/HCPCS: 99211 ==

== ENCOUNTER → 2021-07-20 10:53 | Outpatient (BNVA) | payer MEDICAID, SELFPAY | PROVIDERS: PCP Registered Nurse; Visit Provider Nurse Practitioner Gerontology | DX: E11.65 Type 2 diabetes mellitus with hyperglycemia (principal); I10 Essential (primary) hypertension; E78.5 Hyperlipidemia, unspecified; E66.01 Morbid (severe) obesity due to excess calories; Z68.44 Body mass index [BMI] 60.0-69.9, adult; Z79.4 Long term (current) use of insulin | CPT/HCPCS: 82947; 83036; 96372; J1815 ==

== ENCOUNTER → 2021-09-03 10:51 | Outpatient (BNVA) | payer MEDICAID, SELFPAY | PROVIDERS: Visit Provider Registered Nurse Diabetes Educator | DX: E11.9 Type 2 diabetes mellitus without complications (principal); Z71.89 Other specified counseling | CPT/HCPCS: 99211 ==

== ENCOUNTER 2021-09-08 17:30 | Inpatient (IN) | payer MEDICAID, SELFPAY ==
--- NOTE | ~2021-09-08 | XR_ITS ---
EXAMINATION: XR CHEST CLINICAL INFORMATION: Hypoxia COMPARISON: Chest radiograph and chest CT dated 04/22/2021 TECHNIQUE: Frontal view of the chest was obtained. FINDINGS: Then noted are hypoexpanded lungs with some bibasilar atelectasis. Appearances are actually improved slightly when compared to the 04/22/2021 studies. No focal consolidation, CHF pleural effusions are seen. Has been surgical resection of the distal right clavicle. XR/XR chest 1V IMPRESSION: Hypoexpanded lungs with bibasilar atelectasis. No acute finding.
--- NOTE | ~2021-09-08 | CT_ITS ---
EXAMINATION: CT ANGIOGRAM OF THE CHEST WITH AND WITHOUT CONTRAST (CT PULMONARY ANGIOGRAM FOR PE) CLINICAL INFORMATION: Reason for Exam Tachycardic, hypoxic COMPARISON: CT chest 04/22/2021 TECHNIQUE: Prior to contrast administration, noncontrast localization images were obtained. Subsequently, multidetector volumetric imaging was performed from the thoracic inlet to below the diaphragms following the administration of 100 mL Omnipaque 350 intravenous contrast. No contrast reaction reported Sagittal, coronal, and MIP oblique sagittal reformatted images were obtained on the CT workstation, uploaded to PACS, and reviewed. This CT examination was performed using dose optimization techniques as appropriate, variously including the following: *Automated exposure control *Adjustment of mA and/or kV according to patient size (this includes techniques or standardized protocols for targeted exams where dose is matched to indication/reason for exam; i.e. extremities or head) *Use of iterative reconstruction technique Total exam dose-length product 569 mGy-cm FINDINGS: QUALITY OF STUDY/CONTRAST BOLUS: Satisfactory. PULMONARY ARTERIES: No evidence of filling defects to suggest central or segmental pulmonary emboli. THORACIC AORTA: No aneurysm or dissection. LUNG: Respiratory motion artifact limiting evaluation. Streaky and patchy airspace opacities in the left lower lobe, could reflect atelectasis or inflammatory/infectious process. Mild atelectasis in the right lower lobe.. No dense consolidation right lung. PLEURA: No pleural effusion or pneumothorax. MEDIASTINUM: Heart is enlarged, symmetric. Cardiomegaly. No pericardial effusion. No mediastinal or hilar lymphadenopathy. No evidence of septal bowing or right heart strain. CHEST WALL/AXILLA: No axillary or internal mammary lymphadenopathy. OSSEOUS STRUCTURES: No acute or suspicious osseous abnormality. UPPER ABDOMEN: Unremarkable. No reflux of contrast into the hepatic veins to suggest elevated right heart pressures. CT/CT angio chest PE protocol IMPRESSION: 1. No evidence of filling defects to suggest central or segmental pulmonary emboli . 2. Left basilar opacities could reflect atelectasis versus inflammatory/infectious process. VTE: negative
[2021-09-08 17:35] VITALS: BP 126/84; BP 132/84; PULSE 117; PULSE 120; RESP 26; TEMP 37.6; O2SAT 93; O2SAT 97; BMI 66.6
--- NOTE | 2021-09-08 17:44 | ECG_ITS ---
Test Reason : SOB Blood Pressure : / mmHG Vent. Rate : 113 BPM Atrial Rate : 113 BPM P-R Int : 182 ms QRS Dur : 086 ms QT Int : 320 ms P-R-T Axes : 054 -48 088 degrees QTc Int : 438 ms Sinus tachycardia Left anterior fascicular block Cannot rule out Anterior infarct , age undetermined Abnormal ECG When compared with ECG of 22-APR-2021 05:39, No significant change was found Referred By: Felicita Nicholas Electronically Signed By:FRANSICO CALLEJAS MD
[2021-09-08 18:03] VITALS: O2SAT 93
--- NOTE | 2021-09-08 18:07 | ED.SOB ---
HPI - SOB/Dyspnea General Chief Complaint: Dyspnea Stated Complaint: pneumonia Time Seen by Provider: 09/08/21 17:44 Source: patient and EMS Mode of arrival: EMS Limitations: no limitations History of Present Illness HPI Narrative: 51-year-old wheelchair bound female with history of morbid obesity, BMI 66, restrictive lung disease, MORGAN on CPAP, asthma, diabetes, schizoaffective disorder, PTSD, hypothyroidism, AAA who presents to the ER from her PCPs office via EMS with hypoxia. Patient reports she was been feeling short of breath which has been worsening over the last 1 week. She decided to wait it out because she had a PCP appointment today. At her doctor's office she was hypoxic into the 80s, unknown exact saturation. She was placed on supplemental oxygen and EMS was called. Patient reports over the last 1 week she has had difficulty breathing, especially when lying flat. Last night she was wearing her CPAP and woke up gasping for breath. Her oxygen saturation was 71% despite being on her CPAP and having her 4 L bled in. She got up and went to the bathroom and SpO2 improved to high 80s only. She reports intermittent coughing fits where she cannot catch her breath afterwards. She is not bring up any phlegm. She denies fever or chills. She reports right-sided lung pain for the last 1 week as well. MD elicited complaint: shortness of breath, cough and pain with inspiration Pertinent past history: asthma, congestive heart failure and diabetes Onset (ago): week(s) (1) Timing: constant Severity: moderate Exacerbating factors: lying flat and exertion Relieving factors: oxygen, rest and upright position Known history of: asthma, congestive heart failure and diabetes Associated symptoms: pain with inspiration and cough Treatment prior to arrival: oxygen Related Data Home oxygen amount: delivered by CPAP Home Medications Medication Instructions Recorded Confirmed amitriptyline 10 mg tablet 10 mg PO BEDTIME 01/10/20 09/08/21 atorvastatin 20 mg tablet 20 mg PO DAILY 01/10/20 09/08/21 benztropine 1 mg tablet 1 mg PO BID@1200,2100 01/10/20 09/08/21 divalproex 500 mg tablet,delayed 500 mg PO DAILY@1200 01/10/20 09/08/21 release lisinopril 10 mg tablet 10 mg PO BEDTIME 01/10/20 09/08/21 montelukast 10 mg tablet 10 mg PO BEDTIME 01/10/20 09/08/21 multivitamin 1 tab PO DAILY 01/10/20 09/08/21 thiamine HCl (vitamin B1) 100 mg 100 mg PO DAILY@1200 01/10/20 09/08/21 tablet atenolol 50 mg tablet 50 mg PO DAILY@1200 04/20/21 09/08/21 divalproex 500 mg tablet,extended 1,000 mg PO BEDTIME 04/20/21 09/08/21 release 24 hr docusate sodium 100 mg capsule 100 mg PO DAILY@1200 PRN 04/20/21 09/08/21 Constipation folic acid 1 mg tablet 1 tab PO QAM 04/20/21 09/08/21 furosemide 40 mg tablet 1 tab PO DAILY 04/20/21 09/08/21 glimepiride 4 mg tablet 1 tab PO QPM 04/20/21 09/08/21 lurasidone 60 mg tablet (Latuda) 60 mg PO DAILY 04/20/21 09/08/21 melatonin 5 mg tablet 1 - 2 tab PO BEDTIME PRN insomnia 04/20/21 09/08/21 prazosin 5 mg capsule 1 cap PO BEDTIME 04/20/21 09/08/21 quetiapine 400 mg tablet 400 mg PO BEDTIME 04/20/21 09/08/21 albuterol sulfate 1 amp inhalation QID 04/22/21 09/08/21 alendronate 70 mg tablet 1 tab PO MO@0600 04/22/21 09/08/21 diclofenac sodium 1 % topical gel 2 g topical QID PRN Pain 04/22/21 09/08/21 fluticasone propionate 50 1 spray intranasal DAILY 04/22/21 09/08/21 mcg/actuation nasal spray,suspension hydroxyzine HCl 50 mg tablet 1 tab PO TID PRN Anxiety 04/22/21 09/08/21 quetiapine 25 mg tablet 1 tab PO BID PRN anxiety 04/22/21 09/08/21 cholecalciferol (vitamin D3) 50 50 mcg PO DAILY 07/20/21 09/08/21 mcg (2,000 unit) tablet acetaminophen 500 mg tablet 1,000 mg PO Q6H PRN Pain 09/08/21 09/08/21 albuterol sulfate 90 mcg/actuation 2 puff inhalation Q4H PRN 09/08/21 09/08/21 aerosol inhaler (ProAir HFA) Respiratory Distress insulin degludec 200 unit/mL (3 62 unit subcut BEDTIME 09/08/21 09/08/21 mL) subcutaneous pen (Tresiba FlexTouch U-200 insulin) insulin lispro 100 unit/mL 18 - 24 unit subcut TIDWM 09/08/21 09/08/21 subcutaneous pen (Humalog KwikPen (U-100) Insulin) lidocaine 5 % topical patch 1 patch topical DAILY 09/08/21 09/08/21 jwqoy-qzlse-qnwgspk-pramoxine 3.5 1 appl topical BID 09/08/21 09/08/21 mg-500 unit-10,000 unit/g top oint (Triple Antibiotic Plus) sumatriptan succinate 50 mg tablet 50 mg PO DAILY PRN Migraine 09/08/21 09/08/21 Headache tiotropium bromide 1.25 2 puff inhalation DAILY 09/08/21 09/08/21 mcg/actuation mist for inhalation (Spiriva Respimat) white petrolatum 1 appl topical BID PRN Dry Skin 09/08/21 09/08/21 Previous Rx's Medication Instructions Recorded leg brace (Ankle Brace) #1 ea 01/22/20 tramadol 50 mg tablet 50 mg PO BID PRN Pain #30 tabs 07/27/21 levothyroxine 150 mcg capsule 150 mcg PO DAILY #90 caps 08/02/21 pen needle, diabetic 32 gauge x #125 ea 08/02/21 (BD Ultra-Fine Mary Pen Needle) Allergies Allergy/AdvReac Type Severity Reaction Status Date / Time metformin Allergy Intermediate Diarrhea Verified 07/20/21 11:20 morphine [MORPHINE] Allergy Intermediate Hives Verified 07/20/21 11:20 tetracycline Allergy Intermediate hives Verified 07/20/21 11:20 Latex, Natural Rubber Allergy Rash Verified 09/08/21 17:46 haloperidol [From HALDOL] AdvReac Intermediate Irritable Verified 07/20/21 11:20 duramorph/derivative or Allergy Intermediate hives Uncoded 07/20/21 11:20 morphi Review of Systems Review of Systems: Constitutional: No Fever, No Chills ENT/Mouth: No sore throat, No Rhinorrhea, No Swallowing Difficulty Eyes: No Eye Pain, No Swelling, No Redness Cardiovascular: No Chest Pain, + SOB, + Orthopnea, + Edema Respiratory: + Cough, No Sputum, No Wheezing, + dyspnea Gastrointestinal: No Nausea, No Vomiting, No Diarrhea, No abdominal Pain Genitourinary: No Dysuria, No Urinary Frequency, No Hematuria Musculoskeletal: No joint pain, No Myalgias Skin: No Skin Lesions, No rash Neuro: No Weakness, No Numbness, No Dizziness, No Headache Psych:+ Anxiety/Panic, No Depression Heme/Lymph: No Bruising, No Lymphadenopathy Endocrine: No Polyuria, No Polydipsia [facility] Past Medical History Medical History ADHD Aortic aneurysm Arthritis Asthma Back pain Depression Diabetes Diabetes Fibula fracture Gallstone GERD (gastroesophageal reflux disease) Goiter Hepatitis Hernia History of posttraumatic stress disorder (PTSD) HTN (hypertension) Hx of fracture of patella Hypothyroidism Migraine Morbid obesity Myocardial infarction Obesity due to excess calories PTSD (post-traumatic stress disorder) Schizo affective schizophrenia Sleep apnea Umbilical hernia Vitamin D deficiency Surgical History History of incision and drainage Hx of knee surgery Hx of tubal ligation Tubal ligation status Family History Family History Father Unknown family medical history Mother No problems noted. Sister Ovarian cancer Social History Social History Household Members: None Alcohol intake: never Patient Tobacco Use Status: Current everyday Tobacco user Cigarette Packs Per Day: 0.5 Cigarettes Per Day: 10.0 Years Smoked: 35 Use of substances other than those prescribed or required for medical reasons: No Substance Use Type: Marijuana Advance Directives: No Advance Directives Information Provided: No Patient : No Physical Exam Vital Signs: Vital Signs: Last Vital Signs Temp 99.7 F 09/08/21 17:35 Pulse 117 H 09/08/21 17:35 Resp 26 H 09/08/21 17:35 BP 126/84 09/08/21 17:35 Pulse Ox 93 09/08/21 18:03 O2 Del Method 09/08/21 18:03 O2 Flow Rate 3 09/08/21 18:03 Oxygen Flow Rate 3 09/08/21 17:35 BMI result Body Mass Index 66.6 Appearance: Alert, mobidly obese female laying on the strether with O2 mask on her face. Oriented X3. No acute distress. Eyes: Pupils equal, round and reactive to light. ENT: Pharynx normal. Neck: Normal inspection. Neck supple. CVS: tachycardic, regular rhythm, heart rate 1 tense.Pulses normal. Respiratory: Mild respiratory distress, respiratory rate 23-24.. Breath sounds Diminished throughout but no appreciated wheezes, rhonchi or rales. She is able to speaking complete sentences. Abdomen: Obese and nontender. +BS x4 Skin: Skin warm and dry. Normal skin color. Normal skin turgor. No rashes. Extremities: Trace lower extremity edema, nonpitting Neuro: Oriented X 3. No motor deficit. No sensory deficit. Course Course Course Narrative: 51-year-old female with a history of diabetes, morbid obesity, restrictive lung disease, asthma, hypothyroidism, schizoaffective disorder, migraines, HFpEF, HTN, PTSD, MORGAN on CPAP who presents to the ER with 1 weeks worth of worsening shortness of breath. Hypoxic at her PCPs office today. On arrival to the ER she is tachycardic to the 110s and requiring 3 L of oxygen to maintain saturations of 92%. Concern for possible CHF exacerbation with most of her symptoms being worse when she lays flat. There is likely also component of MORGAN/ ohs and restrictive lung disease playing a role given her body habitus. Will check chest x-ray, EKG, BNP, basic lab workup. She has no wheezing on examination will hold off on nebulizer and steroids for now. Reevaluation(s) Reevaluation #1: 7:30 pm CXR showing hypoexpanded lungs with bibasilar atelectasis. She has no leukocytosis. Her BNP is 20. This could be falsely low in the setting of HFpEF. Na+ 129, question hypervolemic. Will give dose of IV lasix. Lactic acid 2.7, unclear etiology. No evidence of infection at this time. She remains tachycardic with an FiO2 need of 3 L. Will get CTA chest to r/o PE. Reevaluation #2: 8:50 pm - CTA chest without PE. Left base opacities noted which could be due to atelectasis vs infectious process. Will cover with rocephin/azithomycin for possible pneumonia. TT hospitalist for admission. MDM - SOB/Dyspnea Medical Records Attestation: I reviewed the patient's medical records. Lab Data Attestation: I reviewed the patient's lab results. Result diagrams: 09/08/21 18:17 09/08/21 18:17 Labs: Lab Results 09/08/21 09/08/21 09/08/21 Range/Units 18:15 18:17 18:17 WBC 7.4 (4.8-10.8) X10*3/uL RBC 4.92 (4.20-5.50) X10*6/uL Hgb 13.8 (12.0-16.0) g/dl Hct 42.2 (37.0-47.0) % MCV 85.8 (80.0-98.0) fL MCH 28.0 (27.0-33.0) pg MCHC 32.7 (31.0-35.0) g/dl RDW 13.6 (11.0-16.0) % Plt Count 350 D (160-400) X10*3/uL MPV 11.3 (9.4-12.3) fL Immature Gran % (Auto) 3.2 H (0.0-0.4) % Neut % (Auto) 54.6 (45-73) % Lymph % (Auto) 29.2 (20-40) % Williams % (Auto) 7.6 (2-11) % Eos % (Auto) 4.6 H (0-4) % Baso % (Auto) 0.8 (0-2) % Lymph # (Auto) 2.2 (1.2-4.9) X10*3/uL Williams # (Auto) 0.6 (0.1-1.2) X10*3/uL Eos # (Auto) 0.3 (0.0-0.4) X10*3/uL Baso # (Auto) 0.1 (0.0-0.2) X10*3/uL Abs Immat Gran (auto) 0.24 H (0.00-0.03) X10*3/uL Absolute Neuts (auto) 4.0 (2.0-8.3) x10*3/uL Absolute Nucleated RBC 0.000 (0.0-0.012) X10*3/uL Nucleated RBC % (auto) 0.0 (0.0-0.2) /100WBC VBG pH 7.39 (7.32-7.43) VBG pCO2 62 mmHg VBG pO2 80 mmHg VBG HCO3 38 H (22-26) mmol/L VBG O2 Saturation 95.0 % VBG Base Excess 10.4 mmol/L Sodium 129 L (135-145) mmol/L Potassium 4.7 (3.3-5.1) mmol/L Chloride 83 L (96-108) mmol/L Carbon Dioxide 33 H (22-29) mmol/L Anion Gap 18 (12-20) BUN 11 (9-16) mg/dL Creatinine 0.93 (0.5-1.4) mg/dL Estim Creat Clear Calc 126.2 Estimated GFR > 60 Random Glucose 275 H (60-115) mg/dL Lactic Acid (0.5-2.0) mmol/L Calcium 10.1 D (8.4-10.2) mg/dL Magnesium 1.4 L* (1.6-2.6) mg/dL Total Bilirubin 0.3 (0.0-1.0) mg/dL Direct Bilirubin < 0.2 (0.0-0.5) mg/dL AST 16 (5-31) U/L ALT 19 (0-31) U/L Alkaline Phosphatase 96 D (39-117) U/L Troponin I High Sens (<3.5-17.0) ng/L B-Natriuretic Peptide (<100) pg/mL Total Protein 7.1 (6.5-8.0) g/dL Albumin 3.8 (3.5-5.0) g/dL Procalcitonin ng/mL TSH (0.32-4.0) uIU/mL Free T4 (0.71-1.85) ng/dL COVID-19 (JEFFRY) (Negative) COVID-19 Clin Com 09/08/21 09/08/21 09/08/21 Range/Units 18:17 18:17 18:17 WBC (4.8-10.8) X10*3/uL RBC (4.20-5.50) X10*6/uL Hgb (12.0-16.0) g/dl Hct (37.0-47.0) % MCV (80.0-98.0) fL MCH (27.0-33.0) pg MCHC (31.0-35.0) g/dl RDW (11.0-16.0) % Plt Count (160-400) X10*3/uL MPV (9.4-12.3) fL Immature Gran % (Auto) (0.0-0.4) % Neut % (Auto) (45-73) % Lymph % (Auto) (20-40) % Williams % (Auto) (2-11) % Eos % (Auto) (0-4) % Baso % (Auto) (0-2) % Lymph # (Auto) (1.2-4.9) X10*3/uL Williams # (Auto) (0.1-1.2) X10*3/uL Eos # (Auto) (0.0-0.4) X10*3/uL Baso # (Auto) (0.0-0.2) X10*3/uL Abs Immat Gran (auto) (0.00-0.03) X10*3/uL Absolute Neuts (auto) (2.0-8.3) x10*3/uL Absolute Nucleated RBC (0.0-0.012) X10*3/uL Nucleated RBC % (auto) (0.0-0.2) /100WBC VBG pH (7.32-7.43) VBG pCO2 mmHg VBG pO2 mmHg VBG HCO3 (22-26) mmol/L VBG O2 Saturation % VBG Base Excess mmol/L Sodium (135-145) mmol/L Potassium (3.3-5.1) mmol/L Chloride (96-108) mmol/L Carbon Dioxide (22-29) mmol/L Anion Gap (12-20) BUN (9-16) mg/dL Creatinine (0.5-1.4) mg/dL Estim Creat Clear Calc Estimated GFR Random Glucose (60-115) mg/dL Lactic Acid 2.7 H* (0.5-2.0) mmol/L Calcium (8.4-10.2) mg/dL Magnesium (1.6-2.6) mg/dL Total Bilirubin (0.0-1.0) mg/dL Direct Bilirubin (0.0-0.5) mg/dL AST (5-31) U/L ALT (0-31) U/L Alkaline Phosphatase (39-117) U/L Troponin I High Sens 12.8 D (<3.5-17.0) ng/L B-Natriuretic Peptide 20 (<100) pg/mL Total Protein (6.5-8.0) g/dL Albumin (3.5-5.0) g/dL Procalcitonin ng/mL TSH (0.32-4.0) uIU/mL Free T4 (0.71-1.85) ng/dL COVID-19 (JEFFRY) Negative (Negative) COVID-19 Clin Com See Note 09/08/21 09/08/21 Range/Units 18:17 18:17 WBC (4.8-10.8) X10*3/uL RBC (4.20-5.50) X10*6/uL Hgb (12.0-16.0) g/dl Hct (37.0-47.0) % MCV (80.0-98.0) fL MCH (27.0-33.0) pg MCHC (31.0-35.0) g/dl RDW (11.0-16.0) % Plt Count (160-400) X10*3/uL MPV (9.4-12.3) fL Immature Gran % (Auto) (0.0-0.4) % Neut % (Auto) (45-73) % Lymph % (Auto) (20-40) % Williams % (Auto) (2-11) % Eos % (Auto) (0-4) % Baso % (Auto) (0-2) % Lymph # (Auto) (1.2-4.9) X10*3/uL Williams # (Auto) (0.1-1.2) X10*3/uL Eos # (Auto) (0.0-0.4) X10*3/uL Baso # (Auto) (0.0-0.2) X10*3/uL Abs Immat Gran (auto) (0.00-0.03) X10*3/uL Absolute Neuts (auto) (2.0-8.3) x10*3/uL Absolute Nucleated RBC (0.0-0.012) X10*3/uL Nucleated RBC % (auto) (0.0-0.2) /100WBC VBG pH (7.32-7.43) VBG pCO2 mmHg VBG pO2 mmHg VBG HCO3 (22-26) mmol/L VBG O2 Saturation % VBG Base Excess mmol/L Sodium (135-145) mmol/L Potassium (3.3-5.1) mmol/L Chloride (96-108) mmol/L Carbon Dioxide (22-29) mmol/L Anion Gap (12-20) BUN (9-16) mg/dL Creatinine (0.5-1.4) mg/dL Estim Creat Clear Calc Estimated GFR Random Glucose (60-115) mg/dL Lactic Acid (0.5-2.0) mmol/L Calcium (8.4-10.2) mg/dL Magnesium (1.6-2.6) mg/dL Total Bilirubin (0.0-1.0) mg/dL Direct Bilirubin (0.0-0.5) mg/dL AST (5-31) U/L ALT (0-31) U/L Alkaline Phosphatase (39-117) U/L Troponin I High Sens (<3.5-17.0) ng/L B-Natriuretic Peptide (<100) pg/mL Total Protein (6.5-8.0) g/dL Albumin (3.5-5.0) g/dL Procalcitonin 0.02 ng/mL TSH 19.65 H (0.32-4.0) uIU/mL Free T4 0.57 L (0.71-1.85) ng/dL COVID-19 (JEFFRY) (Negative) COVID-19 Clin Com ABG Data ABG results: vbg . Interpretation: chronic compensated hypercapnic respiratory failure ECG Data Attestation: I personally reviewed and interpreted this ECG as follows: ECG interpretation date: 09/08/21 ECG interpretation time: 21:06 Prior ECG tracings: available for review Interpretation: sinus tachycardia, heart rate 113, normal [place] interval, no ST segment elevations or depressions. Left anterior fascicular block. No change from prior. Critical Care Time Critical Care Time Critical Care Time: Yes Total Critical Care Time: 44 Attestation: I have personally provided critical care time exclusive of time spent on separately billable procedures. Time includes review of lab data, radiology results, discussion with consultants, and monitoring for potential decompensation. Intervention performed as documented. Discharge Plan Discharge Clinical Impression: Acute respiratory failure with hypoxia, Community acquired pneumonia, Chronic restrictive lung disease Patient Disposition: Admitted As Inpatient
[2021-09-08 18:28] LABS: Venous Blood Gas Refer to POC result
[2021-09-08 18:28] LABS: MANUAL DIFF FLAG NO
[2021-09-08 18:31] LABS: VBG Base Excess 10.4 mmol/L; VBG HCO3 38 mmol/L (22-26); VBG pCO2 62 mmHg; VBG pH 7.39 (7.32-7.43); VBG pO2 80 mmHg
[2021-09-08 18:34] LABS: Basophils Absolute Auto 0.1 X10*3/uL (0.0-0.2); Basophils Percent Auto 0.8 % (0-2); Eosinophils Absolute Auto 0.3 X10*3/uL (0.0-0.4); Eosinophils Percent Auto 4.6 % (0-4); Hematocrit 42.2 % (37.0-47.0); Hemoglobin 13.8 g/dl (12.0-16.0); Imm Gran Abs Auto 0.24 X10*3/uL (0.00-0.03); Imm Gran Pct Auto 3.2 % (0.0-0.4); Lymphocytes Absolute Auto 2.2 X10*3/uL (1.2-4.9); Lymphocytes Percent Auto 29.2 % (20-40); Mean Corpuscular HGB Conc 32.7 g/dl (31.0-35.0); Mean Corpuscular Volume 85.8 fL (80.0-98.0); Mean Platelet Volume 11.3 fL (9.4-12.3); Monocytes Absolute Auto 0.6 X10*3/uL (0.1-1.2); Monocytes Percent Auto 7.6 % (2-11); Neutrophils Percent Auto 54.6 % (45-73); Platelet Count 350 X10*3/uL (160-400); Red Blood Count 4.92 X10*6/uL (4.20-5.50); Red Cell Distribution Width 13.6 % (11.0-16.0); White Blood Count 7.4 X10*3/uL (4.8-10.8)
[2021-09-08 18:54] LABS: Lactic Acid 2.7 mmol/L (0.5-2.0)
[2021-09-08 18:57] LABS: COVID-19 Test Negative (Negative); IDNOW Serial# 55D5AD1C
[2021-09-08 19:01] LABS: Troponin-I High Sensitivity 12.8 ng/L (<3.5-17.0)
[2021-09-08 19:10] LABS: Alanine Aminotransferase 19 U/L (0-31); Albumin Level 3.8 g/dL (3.5-5.0); Alkaline Phosphatase 96 U/L (39-117); Anion Gap 18 (12-20); Aspartate Amino Transferase 16 U/L (5-31); Bilirubin Direct < 0.2 mg/dL (0.0-0.5); Bilirubin Total 0.3 mg/dL (0.0-1.0); Blood Urea Nitrogen 11 mg/dL (9-16); Calcium 10.1 mg/dL (8.4-10.2); Carbon Dioxide 33 mmol/L (22-29); Chloride 83 mmol/L (96-108); Creatinine Clr Calc Pharmacy 126.2; Estimated Glomerular Filt Rate > 60; Glucose Random 275 mg/dL (60-115); Magnesium 1.4 mg/dL (1.6-2.6); Potassium 4.7 mmol/L (3.3-5.1); Sodium 129 mmol/L (135-145); Total Protein 7.1 g/dL (6.5-8.0)
[2021-09-08 19:12] LABS: B Type Natriuretic Peptide 20 pg/mL (<100)
[2021-09-08 19:16] LABS: TSH reflex Free T4 19.65 uIU/mL (0.32-4.0)
[2021-09-08 19:29] LABS: Procalcitonin 0.02 ng/mL
[2021-09-08] MEDS: Magnesium Sulfate/H2O 2 GM/50 ML PIGGYBACK IV (19:45)
[2021-09-08 19:53] LABS: Free T4 (Free Thyroxine) 0.57 ng/dL (0.71-1.85)
[2021-09-08] MEDS: iohexoL 350 MG/ML 100 ML INFUS..BTL IV (20:18)
[2021-09-08 20:23] LABS: Reflex Lactate? Lactic Acid Added
--- NOTE | 2021-09-08 21:07 | PHA.MEDREC ---
MED REC COMPLETE, NO ISSUES Pharmacy Consult ? Medication Reconciliation Pharmacy has completed the medication reconciliation.
[2021-09-08] MEDS: Furosemide 40 MG/4 ML VIAL IVPUSH (21:13)
[2021-09-08] MEDS: cefTRIAXone sodium 1 GM in 0.9 % Sodium Chloride 50 ML IV (21:14)
[2021-09-08] MEDS: Azithromycin 500 MG in 0.9 % Sodium Chloride 250 ML 125 MG IV (22:07)
[2021-09-08 22:48] VITALS: BP 113/65; PULSE 119; RESP 18; O2SAT 94
[2021-09-08 23:07] LABS: Appearance Urine CLEAR; Color Urine YELLOW; Glucose Urine UA NEG (NEG); Leukocyte Esterase Urine NEG (NEG); Nitrite Urine NEG (NEG); Specific Gravity - Urine <= 1.005 (1.005-1.025); UACC Culture Trigger NO; Urine Blood TRACE (NEG); Urine Ketones NEG (NEG); Urine Protein NEG (NEG-TRACE)
--- NOTE | 2021-09-08 23:16 | P.HPHOSP_ITS ---
History of Present Illness Date of Service: 09/08/21 Chief Complaint: Shortness of breath 51-year-old female with a past medical history of hypertension, hyperlipidemia, diabetes, morbid obesity, BMI 66, COPD/restrictive lung disease, MORGAN on CPAP, hypothyroidism, schizoaffective disorder, PTSD, abdominal aortic aneurysm; presented to the hospital today with a chief complaint of shortness of breath. Patient reports that for the past 1 week she has been having shortness of breath which has been gradually worsening; went to her PCP office where she was noted to have hypoxia to 80% on room air; subsequently EMS was called and sent to the hospital for further management. Mentions that her shortness of breath worsens when lying flat. Also on exertion. Denies any chest pain or palpitations. Denies any cough or sputum production. Denies any recent travel or sick contacts. Review of all other systems is negative except mentioned above ER course: Per ER team patient was reportedly saturating 71% at 1 point; placed on supplemental oxygen with improvement in oxygenation; concern for severe restr ictive lung disease/atelectasis/hypoventilation given morbid obesity contributed to her hypoxia. CT chest showed no evidence of pulmonary embolism but noted possible pneumonia. Given empiric antibiotics. Admitted to the hospital for further management. [facility] Medical History ADHD Aortic aneurysm Arthritis Asthma Back pain Depression Diabetes Diabetes Fibula fracture Gallstone GERD (gastroesophageal reflux disease) Goiter Hepatitis Hernia History of posttraumatic stress disorder (PTSD) HTN (hypertension) Hx of fracture of patella Hypothyroidism Migraine Morbid obesity Myocardial infarction Obesity due to excess calories PTSD (post-traumatic stress disorder) Schizo affective schizophrenia Sleep apnea Umbilical hernia Vitamin D deficiency Family History Father Unknown family medical history Mother No problems noted. Sister Ovarian cancer Surgical History History of incision and drainage Hx of knee surgery Hx of tubal ligation Tubal ligation status Social History Household Members: None Alcohol intake: never Patient Tobacco Use Status: Current everyday Tobacco user Cigarette Packs Per Day: 0.5 Cigarettes Per Day: 10.0 Years Smoked: 35 Use of substances other than those prescribed or required for medical reasons: No Substance Use Type: Marijuana Advance Directives: No Advance Directives Information Provided: No Patient : No Meds Allergies Allergy/AdvReac Type Severity Reaction Status Date / Time metformin Allergy Intermediate Diarrhea Verified 07/20/21 11:20 morphine [MORPHINE] Allergy Intermediate Hives Verified 07/20/21 11:20 tetracycline Allergy Intermediate hives Verified 07/20/21 11:20 Latex, Natural Rubber Allergy Rash Verified 09/08/21 17:46 haloperidol [From HALDOL] AdvReac Intermediate Irritable Verified 07/20/21 11:20 duramorph/derivative or Allergy Intermediate hives Uncoded 07/20/21 11:20 morphi Active Medications: Current Medications Acetaminophen (Acetaminophen 325 Mg Tablet) 650 mg PO Q6H PRN PRN Reason: Pain, Mild (Pain Scale 1-3) Albuterol/Ipratropium (Albuterol/Iprat 2.5/0.5mg 3 Ml Ampul.Neb) 3 ml INHALE RQ4H WHILE AWAKE PRN PRN Reason: Shortness of Breath/Wheezing Azithromycin (Azithromycin 500 Mg Tablet) 500 mg PO Q24H SHARI Enoxaparin Sodium (Enoxaparin Sodium 40 Mg/0.4 Ml Syringe) 40 mg SUBCUT Q12H SHARI Ceftriaxone Sodium 1 gm/ (Sodium Chloride) 100 mls @ 200 mls/hr IV Q24H SHARI Melatonin (Melatonin 3 Mg Tablet) 6 mg PO BEDTIME PRN PRN Reason: Insomnia Pharmacy Consult (Consult Rx Perform Med Rec) 1 each MISCELLANE ONCE PRN PRN Reason: Consult order Senna (Sennosides 8.6 Mg Tablet) 17.2 mg PO BEDTIME PRN PRN Reason: Constipation Sodium Chloride (0.9 % Sodium Chloride Flush 3 Ml Syringe) 3 ml IVFLUSH QSHIFT SHARI Home Medications Medication Instructions Recorded Confirmed Last Taken Type amitriptyline 10 mg tablet 10 mg PO BEDTIME 01/10/20 09/08/21 09/07/21 History atorvastatin 20 mg tablet 20 mg PO DAILY 01/10/20 09/08/21 09/08/21 History benztropine 1 mg tablet 1 mg PO BID@1200,2100 01/10/20 09/08/21 09/08/21 History divalproex 500 mg tablet,delayed 500 mg PO DAILY@1200 01/10/20 09/08/21 09/08/21 History release lisinopril 10 mg tablet 10 mg PO BEDTIME 01/10/20 09/08/21 09/07/21 History montelukast 10 mg tablet 10 mg PO BEDTIME 01/10/20 09/08/21 09/07/21 History multivitamin 1 tab PO DAILY 01/10/20 09/08/21 09/08/21 History thiamine HCl (vitamin B1) 100 mg 100 mg PO DAILY@1200 01/10/20 09/08/21 09/08/21 History tablet atenolol 50 mg tablet 50 mg PO DAILY@1200 04/20/21 09/08/21 09/08/21 History divalproex 500 mg tablet,extended 1,000 mg PO BEDTIME 04/20/21 09/08/21 09/07/21 History release 24 hr docusate sodium 100 mg capsule 100 mg PO DAILY@1200 PRN 04/20/21 09/08/21 Unknown History Constipation folic acid 1 mg tablet 1 tab PO QAM 04/20/21 09/08/21 09/08/21 History furosemide 40 mg tablet 1 tab PO DAILY 04/20/21 09/08/21 09/08/21 History glimepiride 4 mg tablet 1 tab PO QPM 04/20/21 09/08/21 09/07/21 History lurasidone 60 mg tablet (Latuda) 60 mg PO DAILY 04/20/21 09/08/21 09/08/21 History melatonin 5 mg tablet 1 - 2 tab PO BEDTIME PRN insomnia 04/20/21 09/08/21 Unknown History prazosin 5 mg capsule 1 cap PO BEDTIME 04/20/21 09/08/21 09/07/21 History quetiapine 400 mg tablet 400 mg PO BEDTIME 04/20/21 09/08/21 09/07/21 History albuterol sulfate 1 amp inhalation QID 04/22/21 09/08/21 09/08/21 History alendronate 70 mg tablet 1 tab PO MO@0600 04/22/21 09/08/21 Unknown History diclofenac sodium 1 % topical gel 2 g topical QID PRN Pain 04/22/21 09/08/21 Unknown History fluticasone propionate 50 1 spray intranasal DAILY 04/22/21 09/08/21 09/08/21 History mcg/actuation nasal spray,suspension hydroxyzine HCl 50 mg tablet 1 tab PO TID PRN Anxiety 04/22/21 09/08/21 Unknown History quetiapine 25 mg tablet 1 tab PO BID PRN anxiety 04/22/21 09/08/21 Unknown History cholecalciferol (vitamin D3) 50 50 mcg PO DAILY 07/20/21 09/08/21 09/08/21 History mcg (2,000 unit) tablet acetaminophen 500 mg tablet 1,000 mg PO Q6H PRN Pain 09/08/21 09/08/21 Unknown History albuterol sulfate 90 mcg/actuation 2 puff inhalation Q4H PRN 09/08/21 09/08/21 Unknown History aerosol inhaler (ProAir HFA) Respiratory Distress insulin degludec 200 unit/mL (3 62 unit subcut BEDTIME 09/08/21 09/08/21 09/07/21 History mL) subcutaneous pen (Tresiba FlexTouch U-200 insulin) insulin lispro 100 unit/mL 18 - 24 unit subcut TIDWM 09/08/21 09/08/21 Unknown History subcutaneous pen (Humalog KwikPen (U-100) Insulin) lidocaine 5 % topical patch 1 patch topical DAILY 09/08/21 09/08/21 Unknown History esytw-cvjlf-weygtar-pramoxine 3.5 1 appl topical BID 09/08/21 09/08/21 09/08/21 History mg-500 unit-10,000 unit/g top oint (Triple Antibiotic Plus) sumatriptan succinate 50 mg tablet 50 mg PO DAILY PRN Migraine 09/08/21 09/08/21 Unknown History Headache tiotropium bromide 1.25 2 puff inhalation DAILY 09/08/21 09/08/21 09/08/21 History mcg/actuation mist for inhalation (Spiriva Respimat) white petrolatum 1 appl topical BID PRN Dry Skin 09/08/21 09/08/21 Unknown Histo ry Physical Exam Vital Signs and Narrative: Vital Signs: Last Vital Signs Temp 99.7 F 09/08/21 17:35 Pulse 119 H 09/08/21 22:48 Resp 18 09/08/21 22:48 BP 113/65 09/08/21 22:48 Pulse Ox 94 09/08/21 22:48 O2 Del Method 09/08/21 22:48 O2 Flow Rate 3.5 09/08/21 22:48 Oxygen Flow Rate 3 09/08/21 17:35 BMI result Body Mass Index 66.6 Gen: Appears be in no acute distress; obese. On supplemental oxygen. Able to speak in full sentences HEENT: NCAT, Moist mucosa. Pulmonary: Diminished breath sounds CVS: Normal S1-S2 Abdomen: BS+, Soft, Nontender Extremities: Warm well perfused Neuro: Alert and awake. Results Labs CBC and Chem 7: 09/08/21 18:17 09/08/21 18:17 Labs: Laboratory Results - last 24 hr 09/08/21 09/08/21 09/08/21 18:15 18:17 18:17 MCV 85.8 MCH 28.0 MCHC 32.7 RDW 13.6 Plt Count 350 D MPV 11.3 Immature Gran % (Auto) 3.2 H Neut % (Auto) 54.6 Lymph % (Auto) 29.2 [place] % (Auto) 7.6 Eos % (Auto) 4.6 H Baso % (Auto) 0.8 Lymph # (Auto) 2.2 [place] # (Auto) 0.6 Eos # (Auto) 0.3 Baso # (Auto) 0.1 Abs Immat Gran (auto) 0.24 H Absolute Neuts (auto) 4.0 Absolute Nucleated RBC 0.000 Nucleated RBC % (auto) 0.0 VBG pH 7.39 VBG pCO2 62 VBG pO2 80 VBG HCO3 38 H VBG O2 Saturation 95.0 VBG Base Excess 10.4 Anion Gap 18 Estim Creat Clear Calc 126.2 Estimated GFR > 60 Random Glucose 275 H Lactic Acid Calcium 10.1 D Magnesium 1.4 L* Total Bilirubin 0.3 Direct Bilirubin < 0.2 AST 16 ALT 19 Alkaline Phosphatase 96 D Troponin I High Sens B-Natriuretic Peptide Total Protein 7.1 Albumin 3.8 Procalcitonin TSH Free T4 Urine Color Urine Appearance Urine pH Ur Specific [place] Urine Protein Urine Glucose (UA) Urine Ketones Urine Blood Urine Nitrite Ur Leukocyte Esterase COVID-19 (JEFFRY) COVID-19 Clin Com 09/08/21 09/08/21 09/08/21 18:17 18:17 18:17 MCV MCH MCHC RDW Plt Count MPV Immature Gran % (Auto) Neut % (Auto) Lymph % (Auto) [place] % (Auto) Eos % (Auto) Baso % (Auto) Lymph # (Auto) [place] # (Auto) Eos # (Auto) Baso # (Auto) Abs Immat Gran (auto) Absolute Neuts (auto) Absolute Nucleated RBC Nucleated RBC % (auto) VBG pH VBG pCO2 VBG pO2 VBG HCO3 VBG O2 Saturation VBG Base Excess Anion Gap Estim Creat Clear Calc Estimated GFR Random Glucose Lactic Acid 2.7 H* Calcium Magnesium Total Bilirubin Direct Bilirubin AST ALT Alkaline Phosphatase Troponin I High Sens 12.8 D B-Natriuretic Peptide 20 Total Protein Albumin Procalcitonin TSH Free T4 Urine Color Urine Appearance Urine pH Ur Specific [place] Urine Protein Urine Glucose (UA) Urine Ketones Urine Blood Urine Nitrite Ur Leukocyte Esterase COVID-19 (JEFFRY) Negative COVID-19 Clin Com See Note 09/08/21 09/08/21 09/08/21 18:17 18:17 23:00 MCV MCH MCHC RDW Plt Count MPV Immature Gran % (Auto) Neut % (Auto) Lymph % (Auto) [place] % (Auto) Eos % (Auto) Baso % (Auto) Lymph # (Auto) [place] # (Auto) Eos # (Auto) Baso # (Auto) Abs Immat Gran (auto) Absolute Neuts (auto) Absolute Nucleated RBC Nucleated RBC % (auto) VBG pH VBG pCO2 VBG pO2 VBG HCO3 VBG O2 Saturation VBG Base Excess Anion Gap Estim Creat Clear Calc Estimated GFR Random Glucose Lactic Acid Calcium Magnesium Total Bilirubin Direct Bilirubin AST ALT Alkaline Phosphatase Troponin I High Sens B-Natriuretic Peptide Total Protein Albumin Procalcitonin 0.02 TSH 19.65 H Free T4 0.57 L Urine Color YELLOW Urine Appearance CLEAR Urine pH 6.0 Ur Specific [place] <= 1.005 Urine Protein NEG Urine Glucose (UA) NEG Urine Ketones NEG Urine Blood TRACE Urine Nitrite NEG Ur Leukocyte Esterase NEG COVID-19 (JEFFRY) COVID-19 Clin Com Imaging Radiologist's Impressions: Impressions Chest X-Ray 09/08/21 18:33 IMPRESSION: Hypoexpanded lungs with bibasilar atelectasis. No acute finding. Chest CTA 09/08/21 20:15 IMPRESSION: 1. No evidence of filling defects to suggest central or segmental pulmonary emboli . 2. Left basilar opacities could reflect atelectasis versus inflammatory/infectious process. VTE: negative Assessment and Plan (1) Community acquired pneumonia: Status: Acute (2) Acute respiratory failure with hypoxia: Status: Acute Plan 51-year-old female with a past medical history of hypertension, hyperlipidemia, diabetes, CAD, CHF, morbid obesity, BMI 66, COPD/restrictive lung disease, MORGAN on CPAP, hypothyroidism, schizoaffective disorder, PTSD, abdominal aortic aneurysm; presented to the hospital today with a chief complaint of shortness of breath. Acute hypoxic respiratory failure: In the setting of pneumonia/atelectasis/restrictive lung disease in the setting of morbid obesity. On supplemental oxygen. Speaks in full sentences. Not in distress. CT chest negative for pulmonary embolism. Beatrice amor Pulmonology consult Community-acquired pneumonia: Continue ceftriaxone azithromycin. Follow up cultures. Hyponatremia: Sodium levels noted to be one hundred twenty-nine. Appears to be low solute state. Normal saline at 50 cc/hour. History of hypothyroidism: Patient TSH elevated to 19. Unclear if levothyroxine dose is recently changed. Will defer to the day team can to confirm with the patient's PCP and adjust levothyroxine dose. History of diabetes: Insulin sliding scale. Lantus 30 units. Hold home insuli n regimen for now. History of CHF: Continue home Lasix History of schizoaffective disorder/PTSD: Continue home Depakote, benztropine, amitriptyline, Latuda, Seroquel History of hypertension/hyperlipidemia: Continue home lisinopril, atenolol, statin DVT prophylaxis: Lovenox 40 mg subQ b.i.d. Code status: Full code Quality Stroke Does the patient have a stroke diagnosis?: No VTE Prior VTE?: No VTE Risk Level:: Medical - moderate - high VTE Device Contraindication: Treatment Not Indicated VTE Drug Contraindication: N/A - Med Ordered
[2021-09-08 23:22] LABS: Amphetamine Screen Urine Not Detected (Not Detect); Barbiturates, Urine Not Detected (Not Detect); Benzodiazepines Screen Urine Not Detected (Not Detect); Cannabinoid Screen Urine Not Detected (Not Detect); Cocaine Screen Urine Not Detected (Not Detect); Fentanyl, urine Not Detected (Not Detect); Opiate Screen Urine Not Detected (Not Detect); Phencyclidine Screen Urine Not Detected (Not Detect)
[2021-09-08 23:23] LABS: ~Lactic Acid-LAB USE ONLY 2.5 mmol/L (0.5-2.0)
[2021-09-08 23:35] LABS: Bacteria Urine 1+ /LPF; Mucus Urine TRACE /LPF; RBC Urine 0-2 /HPF (0); Squamous Epithelial Cell Urine 2+ /LPF; WBC Urine 0 /HPF (0-4)
--- NOTE | 2021-09-08 23:52 | PC.NURSE ---
reported critical lab to MINA Anderson.
[2021-09-09] VITALS (9 sets, daily range): BP systolic 96–141; BP diastolic 55–88; PULSE 89–113; RESP 14–20; TEMP 36.7–37.1; O2SAT 92–95
--- NOTE | 2021-09-09 | ECG_ITS ---
Test Reason : CP Blood Pressure : / mmHG Vent. Rate : 089 BPM Atrial Rate : 089 BPM P-R Int : 210 ms QRS Dur : 086 ms QT Int : 376 ms P-R-T Axes : 067 -45 055 degrees QTc Int : 457 ms Sinus rhythm with 1st degree A-V block Left axis deviation Abnormal ECG When compared with ECG of 08-SEP-2021 17:57, Left anterior fascicular block is no longer Present Referred By: Edwin Deshpande Electronically Signed By:FRANSICO CALLEJAS MD
[2021-09-09] MEDS: Enoxaparin Sodium 40 MG/0.4 ML SYRINGE SUBCUT ×3 (00:46→23:30)
[2021-09-09] MEDS: 0.9 % Sodium Chloride Flush 3 ML SYRINGE IVFLUSH ×3 (00:50→17:08)
[2021-09-09] MEDS: Melatonin 3 MG TABLET 6 MG PO (00:50)
[2021-09-09 01:07] LABS: Reflex Lactate? 2 Y
[2021-09-09 05:09] LABS: MANUAL DIFF FLAG NO
[2021-09-09 05:10] LABS: Basophils Absolute Auto 0.1 X10*3/uL (0.0-0.2); Basophils Percent Auto 0.6 % (0-2); Eosinophils Absolute Auto 0.4 X10*3/uL (0.0-0.4); Eosinophils Percent Auto 5.5 % (0-4); Hematocrit 40.7 % (37.0-47.0); Hemoglobin 13.1 g/dl (12.0-16.0); Imm Gran Pct Auto 2.5 % (0.0-0.4); Lymphocytes Absolute Auto 2.4 X10*3/uL (1.2-4.9); Lymphocytes Percent Auto 30.4 % (20-40); Mean Corpuscular HGB Conc 32.2 g/dl (31.0-35.0); Mean Corpuscular Hemoglobin 27.6 pg (27.0-33.0); Mean Corpuscular Volume 85.9 fL (80.0-98.0); Mean Platelet Volume 11.1 fL (9.4-12.3); Monocytes Absolute Auto 0.8 X10*3/uL (0.1-1.2); Monocytes Percent Auto 10.2 % (2-11); NRBC Pct Auto 0.3 /100WBC (0.0-0.2); Neutrophils Absolute Auto 4.1 x10*3/uL (2.0-8.3); Neutrophils Percent Auto 50.8 % (45-73); Platelet Count 324 X10*3/uL (160-400); Red Blood Count 4.74 X10*6/uL (4.20-5.50); Red Cell Distribution Width 13.6 % (11.0-16.0)
[2021-09-09 05:27] LABS: Anion Gap 15 (12-20); Blood Urea Nitrogen 8 mg/dL (9-16); Calcium 9.5 mg/dL (8.4-10.2); Carbon Dioxide 34 mmol/L (22-29); Chloride 85 mmol/L (96-108); Creatinine Clr Calc Pharmacy 133.4; Estimated Glomerular Filt Rate > 60; Glucose Random 314 mg/dL (60-115); Potassium 4.3 mmol/L (3.3-5.1); Sodium 130 mmol/L (135-145)
[2021-09-09] MEDS: Levothyroxine Sodium 150 MCG TABLET PO (06:32)
[2021-09-09 07:31] LABS: Glucose, Whole Blood 252 mg/dL (60-115)
[2021-09-09] MEDS: Insulin Lispro 100 UNIT/ML 3 ML VIAL SUBCUT ×4 (07:33→21:18)
[2021-09-09] MEDS: Albuterol Sulfate (0.083%) 2.5 MG/3 ML VIAL.NEB INHALE ×2 (08:16→13:58)
[2021-09-09] MEDS: Furosemide 40 MG TABLET PO (08:24)
[2021-09-09] MEDS: hydrOXYzine HCL 50 MG TABLET PO ×2 (08:24→17:07)
[2021-09-09] MEDS: Cholecalciferol (Vitamin D3) 25 MCG TABLET 50 MCG PO (08:24)
[2021-09-09] MEDS: Multivitamin TABLET 1 TAB PO (08:24)
[2021-09-09] MEDS: Folic Acid 1 MG TABLET PO (08:25)
[2021-09-09] MEDS: Atorvastatin Calcium 20 MG TABLET PO (08:31)
[2021-09-09] MEDS: Lurasidone HCl 40 MG TABLET 60 MG PO (09:26)
--- NOTE | 2021-09-09 10:21 | MHC.CM.PN ---
Addendum entered by Angie Qiu 09/09/21 11:37: PER MD ROUNDS, PT LIKELY TO DC TOMORROW Original Note: PT REPORTS SHE LIVES ALONE AND HAS LAW TUTOR AND VNA SERVICES THROUGH [facility] SHE REPORTS SHE HAS A CANE, WALKER AND SCOOTER, SHE ALSO HAS A CPAP AND NEBULIZER. PT REPORTS SHE IS COVID-19 VACCINATED X 3 PCP: SOPHIE SARKAR PT COMPLETED A HCP TODAY NAMING HER S/O, PRATIK NOWAK ([phone]) HER AGENT CURRENT DC PLAN IS HOME WITH RESUMPTION OF SERVICES S/O TO TRANSPORT
[2021-09-09 11:10] LABS: Glucose, Whole Blood 489 mg/dL (60-115)
[2021-09-09] MEDS: Thiamine HCL 100 MG TABLET PO (11:42)
[2021-09-09] MEDS: Divalproex Sodium 500 MG TABLET.DR PO (11:43)
[2021-09-09] MEDS: atenoloL 50 MG TABLET PO (11:43)
[2021-09-09] MEDS: SUMAtriptan succinate 50 MG TABLET PO (11:43)
[2021-09-09] MEDS: Benztropine Mesylate 1 MG TABLET PO ×2 (11:43→21:19)
--- NOTE | 2021-09-09 12:03 | PC.NURSE ---
pt is A&oX3, c/o 12/27 migraine, pt oob with assist to commode, panel monitor intact, pt medicated per order, call barcenas within reach, will continue to monitor.
--- NOTE | 2021-09-09 12:09 | PC.NURSE ---
Addendum entered by Kae Aiken RN 09/09/21 12:13: pt sinus tach on alarm security or surveillance monitor Original Note: pt poc was 489, dr cat notified, pt medicated with 10u insulin per sliding scale no new orders given at this time.
--- NOTE | 2021-09-09 13:09 | HO.PM.IMPN ---
Subjective Subjective Date of Service: 09/09/21 Interval History: cc: sob interval history: gallbladder hurts Cardiovascular Cardiovascular: Reports no additional cardiovascular complaints Respiratory Respiratory: Reports no additional respiratory complaints Physical Exam Vital Signs: Vital Signs: Last Vital Signs Temp 98.7 F 09/09/21 09:37 Pulse 108 H 09/09/21 09:37 Resp 15 09/09/21 09:37 BP 141/88 H 09/09/21 09:37 Pulse Ox 93 09/09/21 09:37 O2 Del Method 09/09/21 09:37 O2 Flow Rate 2 09/09/21 09:37 Oxygen Flow Rate 3 09/08/21 17:35 BMI result Body Mass Index 66.6 General: AO X 3, no acute distress Resp: diminished bilateral, no accessory muscles used CVS: S1,S2,RRR GI: soft, non tender, non distended Neuro: motor grossly intact, alert Psych: appropriate affect, appropriate insight Objective Data Active Medications Acetaminophen (Acetaminophen 325 Mg Tablet) 650 mg PO Q6H PRN PRN Reason: Pain, Mild (Pain Scale 1-3) Albuterol Sulfate (Albuterol Sulfate (0.083%) 2.5 Mg/3 Ml Vial.Neb) 2.5 mg INHALE RQID [facility] Last Admin: 09/09/21 10:55 Dose: Not Given Documented By: VJ Non-Admin Reason: Patient Asleep Albuterol Sulfate (Albuterol Sulfate 90 Mcg 8 Gm Inhaler) 2 puff INHALE Q4H PRN PRN Reason: Respiratory Distress Albuterol/Ipratropium (Albuterol/Iprat 2.5/0.5mg 3 Ml Ampul.Neb) 3 ml INHALE RQ4H WHILE AWAKE PRN PRN Reason: Shortness of Breath/Wheezing Amitriptyline HCl (Amitriptyline Hcl 10 Mg Tablet) 10 mg PO BEDTIME [facility] Atenolol (Atenolol 50 Mg Tablet) 50 mg PO DAILY@1200 SHARI; Protocol Last Admin: 09/09/21 11:43 Dose: 50 mg Documented By: ELI Atorvastatin Calcium (Atorvastatin Calcium 20 Mg Tablet) 20 mg PO DAILY [facility] Last Admin: 09/09/21 08:31 Dose: 20 mg Documented By: YEHUDA Comments: issues with scanner in overflow Benztropine Mesylate (Benztropine Mesylate 1 Mg Tablet) 1 mg PO BID@1200,2100 [facility] Last Admin: 09/09/21 11:43 Dose: 1 mg Documented By: ELI Dextrose (Dextrose 50 % 25 Gm/50 Ml Syringe) 25 gm IVPUSH Q15M PRN; Protocol PRN Reason: per Hypoglycemia Standing Ord. Divalproex Sodium (Divalproex Sodium 500 Mg Tablet.Dr) 500 mg PO DAILY@1200 [facility] Last Admin: 09/09/21 11:43 Dose: 500 mg Documented By: ELI Divalproex Sodium (Divalproex Sodium Er 500 Mg Tab.Er.24h) 1,000 mg PO BEDTIME [facility] Docusate Sodium (Docusate Sodium 100 Mg Capsule) 100 mg PO DAILY@1200 PRN PRN Reason: Constipation Enoxaparin Sodium (Enoxaparin Sodium 40 Mg/0.4 Ml Syringe) 40 mg SUBCUT Q12H [facility] Last Admin: 09/09/21 11:43 Dose: 40 mg Documented By: ELI Fluticasone Propionate (Fluticasone Propionate Nasal 16 Gm [place]) 1 spray NOSTRIL-B DAILY [facility] Last Admin: 09/09/21 08:26 Dose: Not Given Documented By: YEHUDA Non-Admin Reason: Med Not Available Folic Acid (Folic Acid 1 Mg Tablet) 1 mg PO DAILY [facility] Last Admin: 09/09/21 08:25 Dose: 1 mg Documented By: YEHUDA Furosemide (Furosemide 40 Mg Tablet) 40 mg PO DAILY [facility]; Protocol Last Admin: 09/09/21 08:24 Dose: 40 mg Documented By: YEHUDA Glucose (Glucose Gel 15 Gm Gel..Gram.) 15 gm PO Q15M PRN; Protocol PRN Reason: per Hypoglycemia Standing Ord. Hydroxyzine HCl (Hydroxyzine Hcl 50 Mg Tablet) 50 mg PO TID PRN PRN Reason: Anxiety Last Admin: 09/09/21 08:24 Dose: 50 mg Documented By: YEHUDA Insulin Glargine (Insulin Glargine,Hum.Rec.Anlog 100 Unit/Ml 10 Ml Vial) 30 unit SUBCUT BEDTIME [facility] Insulin Human Lispro (Insulin Lispro 100 Unit/Ml 3 Ml Vial) 0 unit SUBCUT QIDACHS [facility]; Protocol Last Admin: 09/09/21 11:42 Dose: 10 unit Documented By: ELI Levothyroxine Sodium (Levothyroxine Sodium 175 Mcg Tablet) 175 mcg PO DAILY@0630 [facility] Lisinopril (Lisinopril 10 Mg Tablet) 10 mg PO BEDTIME [facility]; Protocol Lurasidone HCl (Lurasidone Hcl 40 Mg Tablet) 60 mg PO DAILY [facility] Last Admin: 09/09/21 09:26 Dose: 60 mg Documented By: YEHUDA Melatonin (Melatonin 3 Mg Tablet) 6 mg PO BEDTIME PRN PRN Reason: Insomnia Last Admin: 09/09/21 00:50 Dose: 6 mg Documented By: EV Montelukast Sodium (Montelukast Sodium 10 Mg Tablet) 10 mg PO BEDTIME [facility] Multivitamins/Vitamin C (Multivitamin Tablet) 1 tab PO DAILY [facility] Last Admin: 09/09/21 08:24 Dose: 1 tab Documented By: YEHUDA Pharmacy Consult (Consult Rx Perform Med Rec) 1 each MISCELLANE ONCE PRN PRN Reason: Consult order Prazosin HCl (Prazosin Hcl 5 Mg Capsule) 5 mg PO BEDTIME [facility]; Protocol Quetiapine Fumarate (Quetiapine Fumarate 25 Mg Tablet) 25 mg PO BID PRN PRN Reason: anxiety Quetiapine Fumarate (Quetiapine Fumarate 400 Mg Tablet) 400 mg PO BEDTIME [facility] Senna (Sennosides 8.6 Mg Tablet) 17.2 mg PO BEDTIME PRN PRN Reason: Constipation Sodium Chloride (0.9 % Sodium Chloride Flush 3 Ml Syringe) 3 ml IVFLUSH QSHIFT [facility] Last Admin: 09/09/21 07:33 Dose: 3 ml Documented By: DMITRIOPEEna Sumatriptan Succinate (Sumatriptan Succinate 50 Mg Tablet) 50 mg PO DAILY PRN PRN Reason: Migraine Headache Last Admin: 09/09/21 11:43 Dose: 50 mg Documented By: ELI Thiamine HCl (Thiamine Hcl 100 Mg Tablet) 100 mg PO DAILY@1200 [facility] Last Admin: 09/09/21 11:42 Dose: 100 mg Documented By: ELI Vitamin D (Cholecalciferol (Vitamin D3) 25 Mcg Tablet) 50 mcg PO DAILY [facility] Last Admin: 09/09/21 08:24 Dose: 50 mcg Documented By: HO.FERSTE Labs CBC & Chem 7: 09/09/21 04:44 09/09/21 04:43 Labs: Laboratory Results - last 24 hr 09/08/21 09/08/21 09/08/21 18:15 18:17 18:17 MCV 85.8 MCH 28.0 MCHC 32.7 RDW 13.6 Plt Count 350 D MPV 11.3 Immature Gran % (Auto) 3.2 H Neut % (Auto) 54.6 Lymph % (Auto) 29.2 [place] % (Auto) 7.6 Eos % (Auto) 4.6 H Baso % (Auto) 0.8 Lymph # (Auto) 2.2 [place] # (Auto) 0.6 Eos # (Auto) 0.3 Baso # (Auto) 0.1 Abs Immat Gran (auto) 0.24 H Absolute Neuts (auto) 4.0 Absolute Nucleated RBC 0.000 Nucleated RBC % (auto) 0.0 VBG pH 7.39 VBG pCO2 62 VBG pO2 80 VBG HCO3 38 H VBG O2 Saturation 95.0 VBG Base Excess 10.4 Anion Gap 18 Estim Creat Clear Calc 126.2 Estimated GFR > 60 POC Glucose Random Glucose 275 H Lactic Acid Lactic Acid F/U @ 2Hr Lactic Acid F/U @ 4Hr Calcium 10.1 D Magnesium 1.4 L* Total Bilirubin 0.3 Direct Bilirubin < 0.2 AST 16 ALT 19 Alkaline Phosphatase 96 D Troponin I High Sens B-Natriuretic Peptide Total Protein 7.1 Albumin 3.8 Procalcitonin TSH Free T4 Urine Color Urine Appearance Urine pH Ur Specific [place] Urine Protein Urine Glucose (UA) Urine Ketones Urine Blood Urine Nitrite Ur Leukocyte Esterase Urine RBC Urine WBC Ur Squamous Epith Cells Urine Bacteria Urine Mucus Urine Yeast Urine Opiates Screen Urine Fentanyl Screen Ur Barbiturates Screen Ur Phencyclidine Scrn Ur Amphetamines Screen U Benzodiazepines Scrn Urine Cocaine Screen U Marijuana (THC) Screen COVID-19 (JEFFRY) COVID-19 Clin Com 09/08/21 09/08/21 09/08/21 18:17 18:17 18:17 MCV MCH MCHC RDW Plt Count MPV Immature Gran % (Auto) Neut % (Auto) Lymph % (Auto) [place] % (Auto) Eos % (Auto) Baso % (Auto) Lymph # (Auto) [place] # (Auto) Eos # (Auto) Baso # (Auto) Abs Immat Gran (auto) Absolute Neuts (auto) Absolute Nucleated RBC Nucleated RBC % (auto) VBG pH VBG pCO2 VBG pO2 VBG HCO3 VBG O2 Saturation VBG Base Excess Anion Gap Estim Creat Clear Calc Estimated GFR POC Glucose Random Glucose Lactic Acid 2.7 H* Lactic Acid F/U @ 2Hr Lactic Acid F/U @ 4Hr Calcium Magnesium Total Bilirubin Direct Bilirubin AST ALT Alkaline Phosphatase Troponin I High Sens 12.8 D B-Natriuretic Peptide 20 Total Protein Albumin Procalcitonin TSH Free T4 Urine Color Urine Appearance Urine pH Ur Specific [place] Urine Protein Urine Glucose (UA) Urine Ketones Urine Blood Urine Nitrite Ur Leukocyte Esterase Urine RBC Urine WBC Ur Squamous Epith Cells Urine Bacteria Urine Mucus Urine Yeast Urine Opiates Screen Urine Fentanyl Screen Ur Barbiturates Screen Ur Phencyclidine Scrn Ur Amphetamines Screen U Benzodiazepines Scrn Urine Cocaine Screen U Marijuana (THC) Screen COVID-19 (JEFFRY) Negative COVID-19 Clin Com See Note 09/08/21 09/08/21 09/08/21 18:17 18:17 23:00 MCV MCH MCHC RDW Plt Count MPV Immature Gran % (Auto) Neut % (Auto) Lymph % (Auto) [place] % (Auto) Eos % (Auto) Baso % (Auto) Lymph # (Auto) [place] # (Auto) Eos # (Auto) Baso # (Auto) Abs Immat Gran (auto) Absolute Neuts (auto) Absolute Nucleated RBC Nucleated RBC % (auto) VBG pH VBG pCO2 VBG pO2 VBG HCO3 VBG O2 Saturation VBG Base Excess Anion Gap Estim Creat Clear Calc Estimated GFR POC Glucose Random Glucose Lactic Acid Lactic Acid F/U @ 2Hr Lactic Acid F/U @ 4Hr Calcium Magnesium Total Bilirubin Direct Bilirubin AST ALT Alkaline Phosphatase Troponin I High Sens B-Natriuretic Peptide Total Protein Albumin Procalcitonin 0.02 TSH 19.65 H Free T4 0.57 L Urine Color YELLOW Urine Appearance CLEAR Urine pH 6.0 Ur Specific [place] <= 1.005 Urine Protein NEG Urine Glucose (UA) NEG Urine Ketones NEG Urine Blood TRACE Urine Nitrite NEG Ur Leukocyte Esterase NEG Urine RBC 0-2 Urine WBC 0 Ur Squamous Epith Cells 2+ Urine Bacteria 1+ Urine Mucus TRACE Urine Yeast 1+ Urine Opiates Screen Urine Fentanyl Screen Ur Barbiturates Screen Ur Phencyclidine Scrn Ur Amphetamines Screen U Benzodiazepines Scrn Urine Cocaine Screen U Marijuana (THC) Screen COVID-19 (JEFFRY) COVID-19 Clin Com 09/08/21 09/08/21 09/09/21 23:00 23:05 01:28 MCV MCH MCHC RDW Plt Count MPV Immature Gran % (Auto) Neut % (Auto) Lymph % (Auto) [place] % (Auto) Eos % (Auto) Baso % (Auto) Lymph # (Auto) [place] # (Auto) Eos # (Auto) Baso # (Auto) Abs Immat Gran (auto) Absolute Neuts (auto) Absolute Nucleated RBC Nucleated RBC % (auto) VBG pH VBG pCO2 VBG pO2 VBG HCO3 VBG O2 Saturation VBG Base Excess Anion Gap Estim Creat Clear Calc Estimated GFR POC Glucose Random Glucose Lactic Acid Lactic Acid F/U @ 2Hr 2.5 H* Lactic Acid F/U @ 4Hr 2.0 Calcium Magnesium Total Bilirubin Direct Bilirubin AST ALT Alkaline Phosphatase Troponin I High Sens B-Natriuretic Peptide Total Protein Albumin Procalcitonin TSH Free T4 Urine Color Urine Appearance Urine pH Ur Specific [place] Urine Protein Urine Glucose (UA) Urine Ketones Urine Blood Urine Nitrite Ur Leukocyte Esterase Urine RBC Urine WBC Ur Squamous Epith Cells Urine Bacteria Urine Mucus Urine Yeast Urine Opiates Screen Not Detected Urine Fentanyl Screen Not Detected Ur Barbiturates Screen Not Detected Ur Phencyclidine Scrn Not Detected Ur Amphetamines Screen Not Detected U Benzodiazepines Scrn Not Detected Urine Cocaine Screen Not Detected U Marijuana (THC) Screen Not Detected COVID-19 (JEFFRY) COVID-19 Clin Com 09/09/21 09/09/21 09/09/21 04:43 04:44 07:26 MCV 85.9 MCH 27.6 MCHC 32.2 RDW 13.6 Plt Count 324 MPV 11.1 Immature Gran % (Auto) 2.5 H Neut % (Auto) 50.8 Lymph % (Auto) 30.4 [place] % (Auto) 10.2 Eos % (Auto) 5.5 H Baso % (Auto) 0.6 Lymph # (Auto) 2.4 [place] # (Auto) 0.8 Eos # (Auto) 0.4 Baso # (Auto) 0.1 Abs Immat Gran (auto) 0.20 H Absolute Neuts (auto) 4.1 Absolute Nucleated RBC 0.020 H Nucleated RBC % (auto) 0.3 H VBG pH VBG pCO2 VBG pO2 VBG HCO3 VBG O2 Saturation VBG Base Excess Anion Gap 15 Estim Creat Clear Calc 133.4 Estimated GFR > 60 POC Glucose 252 H Random Glucose 314 H Lactic Acid Lactic Acid F/U @ 2Hr Lactic Acid F/U @ 4Hr Calcium 9.5 Magnesium Total Bilirubin Direct Bilirubin AST ALT Alkaline Phosphatase Troponin I High Sens B-Natriuretic Peptide Total Protein Albumin Procalcitonin TSH Free T4 Urine Color Urine Appearance Urine pH Ur Specific [place] Urine Protein Urine Glucose (UA) Urine Ketones Urine Blood Urine Nitrite Ur Leukocyte Esterase Urine RBC Urine WBC Ur Squamous Epith Cells Urine Bacteria Urine Mucus Urine Yeast Urine Opiates Screen Urine Fentanyl Screen Ur Barbiturates Screen Ur Phencyclidine Scrn Ur Amphetamines Screen U Benzodiazepines Scrn Urine Cocaine Screen U Marijuana (THC) Screen COVID-19 (JEFFRY) COVID-19 [employer] 09/09/21 11:07 MCV MCH MCHC RDW Plt Count MPV Immature Gran % (Auto) Neut % (Auto) Lymph % (Auto) [place] % (Auto) Eos % (Auto) Baso % (Auto) Lymph # (Auto) [place] # (Auto) Eos # (Auto) Baso # (Auto) Abs Immat Gran (auto) Absolute Neuts (auto) Absolute Nucleated RBC Nucleated RBC % (auto) VBG pH VBG pCO2 VBG pO2 VBG HCO3 VBG O2 Saturation VBG Base Excess Anion Gap Estim Creat Clear Calc Estimated GFR POC Glucose 489 H* Random Glucose Lactic Acid Lactic Acid F/U @ 2Hr Lactic Acid F/U @ 4Hr Calcium Magnesium Total Bilirubin Direct Bilirubin AST ALT Alkaline Phosphatase Troponin I High Sens B-Natriuretic Peptide Total Protein Albumin Procalcitonin TSH Free T4 Urine Color Urine Appearance Urine pH Ur Specific [place] Urine Protein Urine Glucose (UA) Urine Ketones Urine Blood Urine Nitrite Ur Leukocyte Esterase Urine RBC Urine WBC Ur Squamous Epith Cells Urine Bacteria Urine Mucus Urine Yeast Urine Opiates Screen Urine Fentanyl Screen Ur Barbiturates Screen Ur Phencyclidine Scrn Ur Amphetamines Screen U Benzodiazepines Scrn Urine Cocaine Screen U Marijuana (THC) Screen COVID-19 (JEFFRY) COVID-19 [employer] Assessment and Plan (1) Acute respiratory failure with hypoxia: Status: Acute Plan 51F presented with sob Acute hypoxic respiratory failure due to MORGAN/ohs Wean O2 as tolerated, follow-up pulmonary No evidence of bacterial infection will discontinue antibiotics Hyponatremia Likely mild, component of pseudohyponatremia from hyperglycemia and diuretic use Monitor BMP Diabetes with hyperglycemia Basal bolus insulin, monitor sugars Super Morbid obesity Weight loss strongly recommended Chronic diastolic CHF Continue Lasix Schizoaffective disorder Depakote, benztropine, amitriptyline, Latuda, Seroquel Hypertension Lisinopril, atenolol Hyperlipidemia Continue statin Hypothyroidism Changed to 150 mcg about 1 month ago, TSH still elevated at 19, will increase to 175 DVT prophylaxis- Lovenox 40mg b.i.d. due to weight Full code reason for continued hospitalization:glucose contorl, work up of hypoxia Quality Stroke Does the patient have a stroke diagnosis?: No VTE Prior VTE?: No VTE Risk Level:: Medical - moderate - high VTE Device Contraindication: Treatment Not Indicated VTE Drug Contraindication: N/A - Med Ordered
--- NOTE | 2021-09-09 13:28 | PC.NURSE ---
pt c/o mid sternal chest pain, pt stated feel like something is crushing my chest , dr. Deshpande was notified, ekg and labs ordered, respiratory called for updraft, pt is now eating her lunch, will continue to monitor.
--- NOTE | 2021-09-09 13:47 | PC.NURSE ---
ekg performed, dr cat notified of ekg
[2021-09-09 14:50] LABS: Troponin-I High Sensitivity 9.6 ng/L (<3.5-17.0)
[2021-09-09] MEDS: Loperamide HCl 2 MG CAPSULE PO (17:07)
[2021-09-09] MEDS: Acetaminophen 325 MG TABLET 650 MG PO (17:07)
--- NOTE | 2021-09-09 17:24 | PM.CNPUL ---
History of Present Illness History of Present Illness Consult date: 09/09/21 Reason for consult: dyspnea and obstructive sleep apnea Chief complaint: Hypoxia Narrative: This 51 years old female has come to the emergency room which chief complaint of increased shortness of breath, and found to have hypoxemia. Previously she had been at a rehab facility, but currently she is coming from home. Denies fever chills or any expectoration. Denies any chest pain. In the last few days she has been more short of breath than usual, She does not have oxygen at home. She does use CPAP regularly every night. In the emergency room was found to have low O2 sat, actually in low 70 and has required oxygen supplementation at 2 L/minute. Past medical history includes mom super morbid obesity for many years, hypothyroidism, chronic Schizophrenia , obstructive sleep apnea, using CPAP at home. Review of Systems Review of Systems: Yes all other systems are reviewed and are negative [facility] Past Medical History Medical History Diabetes Hernia Morbid obesity Family History Family History Father Unknown family medical history Mother No problems noted. Sister Ovarian cancer Surgical History Surgical History History of incision and drainage Hx of knee surgery Hx of tubal ligation Tubal ligation status Social History Social History Household Members: None Alcohol intake: never Patient Tobacco Use Status: Current everyday Tobacco user Cigarette Packs Per Day: 0.5 Cigarettes Per Day: 10.0 Years Smoked: 35 Use of substances other than those prescribed or required for medical reasons: No Substance Use Type: Marijuana Advance Directives: No Advance Directives Information Provided: No Patient : No service: No Current occupational status: unemployed Meds Allergies Allergy/AdvReac Type Severity Reaction Status Date / Time metformin Allergy Intermediate Diarrhea Verified 07/20/21 11:20 morphine [MORPHINE] Allergy Intermediate Hives Verified 07/20/21 11:20 tetracycline Allergy Intermediate hives Verified 07/20/21 11:20 Latex, Natural Rubber Allergy Rash Verified 09/08/21 17:46 haloperidol [From HALDOL] AdvReac Intermediate Irritable Verified 07/20/21 11:20 duramorph/derivative or Allergy Intermediate hives Uncoded 07/20/21 11:20 morphi Active Medications: Current Medications Acetaminophen (Acetaminophen 325 Mg Tablet) 650 mg PO Q6H PRN PRN Reason: Pain, Mild (Pain Scale 1-3) Last Admin: 09/09/21 17:07 Dose: 650 mg Albuterol Sulfate (Albuterol Sulfate (0.083%) 2.5 Mg/3 Ml Vial.Neb) 2.5 mg INHALE RQID [facility] Last Admin: 09/09/21 13:58 Dose: 2.5 mg Albuterol Sulfate (Albuterol Sulfate 90 Mcg 8 Gm Inhaler) 2 puff INHALE Q4H PRN PRN Reason: Respiratory Distress Albuterol/Ipratropium (Albuterol/Iprat 2.5/0.5mg 3 Ml Ampul.Neb) 3 ml INHALE RQ4H WHILE AWAKE PRN PRN Reason: Shortness of Breath/Wheezing Amitriptyline HCl (Amitriptyline Hcl 10 Mg Tablet) 10 mg PO BEDTIME [facility] Atenolol (Atenolol 50 Mg Tablet) 50 mg PO DAILY@1200 SHARI; Protocol Last Admin: 09/09/21 11:43 Dose: 50 mg Atorvastatin Calcium (Atorvastatin Calcium 20 Mg Tablet) 20 mg PO DAILY [facility] Last Admin: 09/09/21 08:31 Dose: 20 mg Benztropine Mesylate (Benztropine Mesylate 1 Mg Tablet) 1 mg PO BID@1200,2100 [facility] Last Admin: 09/09/21 11:43 Dose: 1 mg Dextrose (Dextrose 50 % 25 Gm/50 Ml Syringe) 25 gm IVPUSH Q15M PRN; Protocol PRN Reason: per Hypoglycemia Standing Ord. Divalproex Sodium (Divalproex Sodium 500 Mg Tablet.Dr) 500 mg PO DAILY@1200 [facility] Last Admin: 09/09/21 11:43 Dose: 500 mg Divalproex Sodium (Divalproex Sodium Er 500 Mg Tab.Er.24h) 1,000 mg PO BEDTIME [facility] Docusate Sodium (Docusate Sodium 100 Mg Capsule) 100 mg PO DAILY@1200 PRN PRN Reason: Constipation Enoxaparin Sodium (Enoxaparin Sodium 40 Mg/0.4 Ml Syringe) 40 mg SUBCUT Q12H [facility] Last Admin: 09/09/21 11:43 Dose: 40 mg Fluticasone Propionate (Fluticasone Propionate Nasal 16 Gm [place]) 1 spray NOSTRIL-B DAILY [facility] Last Admin: 09/09/21 08:26 Dose: Not Given Folic Acid (Folic Acid 1 Mg Tablet) 1 mg PO DAILY [facility] Last Admin: 09/09/21 08:25 Dose: 1 mg Furosemide (Furosemide 40 Mg Tablet) 40 mg PO DAILY SHARI; Protocol Last Admin: 09/09/21 08:24 Dose: 40 mg Glucose (Glucose Gel 15 Gm Gel..Gram.) 15 gm PO Q15M PRN; Protocol PRN Reason: per Hypoglycemia Standing Ord. Hydroxyzine HCl (Hydroxyzine Hcl 50 Mg Tablet) 50 mg PO TID PRN PRN Reason: Anxiety Last Admin: 09/09/21 17:07 Dose: 50 mg Insulin Glargine (Insulin Glargine,Hum.Rec.Anlog 100 Unit/Ml 10 Ml Vial) 50 unit SUBCUT BEDTIME [facility] Insulin Human Lispro (Insulin Lispro 100 Unit/Ml 3 Ml Vial) 0 unit SUBCUT QIDACHS [facility]; Protocol Last Admin: 09/09/21 11:42 Dose: 10 unit Levothyroxine Sodium (Levothyroxine Sodium 175 Mcg Tablet) 175 mcg PO DAILY@0630 [facility] Lisinopril (Lisinopril 10 Mg Tablet) 10 mg PO BEDTIME SHARI; Protocol Loperamide HCl (Loperamide Hcl 2 Mg Capsule) 2 mg PO Q6H PRN PRN Reason: idarrhea Last Admin: 09/09/21 17:07 Dose: 2 mg Lurasidone HCl (Lurasidone Hcl 40 Mg Tablet) 60 mg PO DAILY [facility] Last Admin: 09/09/21 09:26 Dose: 60 mg Melatonin (Melatonin 3 Mg Tablet) 6 mg PO BEDTIME PRN PRN Reason: Insomnia Last Admin: 09/09/21 00:50 Dose: 6 mg Montelukast Sodium (Montelukast Sodium 10 Mg Tablet) 10 mg PO BEDTIME [facility] Multivitamins/Vitamin C (Multivitamin Tablet) 1 tab PO DAILY [facility] Last Admin: 09/09/21 08:24 Dose: 1 tab Pharmacy Consult (Consult Rx Perform Med Rec) 1 each MISCELLANE ONCE PRN PRN Reason: Consult order Prazosin HCl (Prazosin Hcl 5 Mg Capsule) 5 mg PO BEDTIME SHARI; Protocol Quetiapine Fumarate (Quetiapine Fumarate 25 Mg Tablet) 25 mg PO BID PRN PRN Reason: anxiety Quetiapine Fumarate (Quetiapine Fumarate 400 Mg Tablet) 400 mg PO BEDTIME [facility] Senna (Sennosides 8.6 Mg Tablet) 17.2 mg PO BEDTIME PRN PRN Reason: Constipation Sodium Chloride (0.9 % Sodium Chloride Flush 3 Ml Syringe) 3 ml IVFLUSH QSHIFT [facility] Last Admin: 09/09/21 17:08 Dose: 3 ml Sumatriptan Succinate (Sumatriptan Succinate 50 Mg Tablet) 50 mg PO DAILY PRN PRN Reason: Migraine Headache Last Admin: 09/09/21 11:43 Dose: 50 mg Thiamine HCl (Thiamine Hcl 100 Mg Tablet) 100 mg PO DAILY@1200 [facility] Last Admin: 09/09/21 11:42 Dose: 100 mg Vitamin D (Cholecalciferol (Vitamin D3) 25 Mcg Tablet) 50 mcg PO DAILY [facility] Last Admin: 09/09/21 08:24 Dose: 50 mcg Home Medications Medication Instructions Recorded Confirmed Last Taken Type amitriptyline 10 mg tablet 10 mg PO BEDTIME 01/10/20 09/08/21 09/07/21 History atorvastatin 20 mg tablet 20 mg PO DAILY 01/10/20 09/08/21 09/08/21 History benztropine 1 mg tablet 1 mg PO BID@1200,2100 01/10/20 09/08/21 09/08/21 History divalproex 500 mg tablet,delayed 500 mg PO DAILY@1200 01/10/20 09/08/21 09/08/21 History release lisinopril 10 mg tablet 10 mg PO BEDTIME 01/10/20 09/08/21 09/07/21 History montelukast 10 mg tablet 10 mg PO BEDTIME 01/10/20 09/08/21 09/07/21 History multivitamin 1 tab PO DAILY 01/10/20 09/08/21 09/08/21 History thiamine HCl (vitamin B1) 100 mg 100 mg PO DAILY@1200 01/10/20 09/08/21 09/08/21 History tablet atenolol 50 mg tablet 50 mg PO DAILY@1200 04/20/21 09/08/21 09/08/21 History divalproex 500 mg tablet,extended 1,000 mg PO BEDTIME 04/20/21 09/08/21 09/07/21 History release 24 hr docusate sodium 100 mg capsule 100 mg PO DAILY@1200 PRN 04/20/21 09/08/21 Unknown History Constipation folic acid 1 mg tablet 1 tab PO QAM 04/20/21 09/08/21 09/08/21 History furosemide 40 mg tablet 1 tab PO DAILY 04/20/21 09/08/21 09/08/21 History glimepiride 4 mg tablet 1 tab PO QPM 04/20/21 09/08/21 09/07/21 History lurasidone 60 mg tablet (Latuda) 60 mg PO DAILY 04/20/21 09/08/21 09/08/21 History melatonin 5 mg tablet 1 - 2 tab PO BEDTIME PRN insomnia 04/20/21 09/08/21 Unknown History prazosin 5 mg capsule 1 cap PO BEDTIME 04/20/21 09/08/21 09/07/21 History quetiapine 400 mg tablet 400 mg PO BEDTIME 04/20/21 09/08/21 09/07/21 History albuterol sulfate 1 amp inhalation QID 04/22/21 09/08/21 09/08/21 History alendronate 70 mg tablet 1 tab PO MO@0600 04/22/21 09/08/21 Unknown History diclofenac sodium 1 % topical gel 2 g topical QID PRN Pain 04/22/21 09/08/21 Unknown History fluticasone propionate 50 1 spray intranasal DAILY 04/22/21 09/08/21 09/08/21 History mcg/actuation nasal spray,suspension hydroxyzine HCl 50 mg tablet 1 tab PO TID PRN Anxiety 04/22/21 09/08/21 Unknown History quetiapine 25 mg tablet 1 tab PO BID PRN anxiety 04/22/21 09/08/21 Unknown History cholecalciferol (vitamin D3) 50 50 mcg PO DAILY 07/20/21 09/08/21 09/08/21 History mcg (2,000 unit) tablet acetaminophen 500 mg tablet 1,000 mg PO Q6H PRN Pain 09/08/21 09/08/21 Unknown History albuterol sulfate 90 mcg/actuation 2 puff inhalation Q4H PRN 09/08/21 09/08/21 Unknown History aerosol inhaler (ProAir HFA) Respiratory Distress insulin degludec 200 unit/mL (3 62 unit subcut BEDTIME 09/08/21 09/08/21 09/07/21 History mL) subcutaneous pen (Tresiba FlexTouch U-200 insulin) insulin lispro 100 unit/mL 18 - 24 unit subcut TIDWM 09/08/21 09/08/21 Unknown History subcutaneous pen (Humalog KwikPen (U-100) Insulin) lidocaine 5 % topical patch 1 patch topical DAILY 09/08/21 09/08/21 Unknown History embmo-zxrsl-fjfrssi-pramoxine 3.5 1 appl topical BID 09/08/21 09/08/21 09/08/21 History mg-500 unit-10,000 unit/g top oint (Triple Antibiotic Plus) sumatriptan succinate 50 mg tablet 50 mg PO DAILY PRN Migraine 09/08/21 09/08/21 Unknown History Headache tiotropium bromide 1.25 2 puff inhalation DAILY 09/08/21 09/08/21 09/08/21 History mcg/actuation mist for inhalation (Spiriva Respimat) white petrolatum 1 appl topical BID PRN Dry Skin 09/08/21 09/08/21 Unknown History Physical Exam Vital Signs: Vital Signs: Last Vital Signs Temp 98.1 F 09/09/21 15:29 Pulse 89 09/09/21 15:29 Resp 15 09/09/21 15:29 BP 107/73 09/09/21 15:29 Pulse Ox 95 09/09/21 15:29 O2 Del Method 09/09/21 15:29 O2 Flow Rate 2 09/09/21 15:29 Oxygen Flow Rate 3 09/08/21 17:35 BMI result Body Mass Index 66.6 Const: Other: This patient is mom grossly obese, with a very round face very short neck, in addition to her generalized obesity. General: comfortable, no acute distress, alert and awake Orientation/consciousness: patient oriented x3 HEENT: Head: Yes normal to inspection General nose exam: No nasal polyps present and No nasal discharge present Face and sinus: Yes sinuses nontender Mouth: oropharynx normal Throat: No posterior oropharynx normal (Oropharynx is very narrow and crowded, Mallampati class 4) Eyes: General: appearance normal, both eyes and all related structures Neck: Neck: Yes no lymphadenopathy, Yes trachea midline, Yes no JVD and Yes other (Very short and obese neck) Thyroid: Thyroid normal Chest: Chest palpation & inspection: normal inspection of the chest, normal palpation of entire chest wall and no tenderness Resp: Other: Percussion note not perceptible because of the thick chest wall, breath sounds are diminished all over especially over the basilar areas. No crepitation or wheezes are heard. Cardio: Palpation: PMI not normal (Not palpable) Rate: regular rate Rhythm: regular rhythm Heart sounds: no gallops and no murmurs GI: Palpation (GI): Soft to palpation, Tenderness to palpation present (GI), No hepatosplenomegaly present and Palpable mass present Auscultation: normal bowel sounds Back/Spine/Pelvis: Thoracic/Lumbar Spine: thoracic and lumbar spine normal to inspection Skin: General skin exam: no rashes or lesions noted Neuro: General: patient oriented x3 and no focal motor deficits Cranial nerves: Yes CN's II-XII intact bilaterally Extrem: General: Yes normal to inspection, Yes no clubbing, cyanosis or edema and Yes no calf tenderness Psych: Speech and movement: Normal speech and movement present Results Laboratory Findings CBC and BMP: 09/09/21 04:44 09/09/21 04:43 Abnormal lab findings: Abnormal Labs 09/08/21 09/08/21 09/08/21 18:15 18:17 18:17 Immature Gran % (Auto) 3.2 H Eos % (Auto) 4.6 H Abs Immat Gran (auto) 0.24 H Absolute Nucleated RBC Nucleated RBC % (auto) VBG HCO3 38 H Sodium 129 L Chloride 83 L Carbon Dioxide 33 H BUN POC Glucose Random Glucose 275 H Lactic Acid Lactic Acid F/U @ 2Hr Magnesium 1.4 L* TSH Free T4 09/08/21 09/08/21 09/08/21 18:17 18:17 23:05 Immature Gran % (Auto) Eos % (Auto) Abs Immat Gran (auto) Absolute Nucleated RBC Nucleated RBC % (auto) VBG HCO3 Sodium Chloride Carbon Dioxide BUN POC Glucose Random Glucose Lactic Acid 2.7 H* Lactic Acid F/U @ 2Hr 2.5 H* Magnesium TSH 19.65 H Free T4 0.57 L 09/09/21 09/09/21 09/09/21 04:43 04:44 07:26 Immature Gran % (Auto) 2.5 H Eos % (Auto) 5.5 H Abs Immat Gran (auto) 0.20 H Absolute Nucleated RBC 0.020 H Nucleated RBC % (auto) 0.3 H VBG HCO3 Sodium 130 L Chloride 85 L Carbon Dioxide 34 H BUN 8 L POC Glucose 252 H Random Glucose 314 H Lactic Acid Lactic Acid F/U @ 2Hr Magnesium TSH Free T4 09/09/21 11:07 Immature Gran % (Auto) Eos % (Auto) Abs Immat Gran (auto) Absolute Nucleated RBC Nucleated RBC % (auto) VBG HCO3 Sodium Chloride Carbon Dioxide BUN POC Glucose 489 H* Random Glucose Lactic Acid Lactic Acid F/U @ 2Hr Magnesium TSH Free T4 Diagnostic Findings Chest x-ray: report reviewed and image reviewed CT scan - chest: report reviewed and image reviewed Assessment and Plan (1) Morbid (severe) obesity due to excess calories: Status: Acute (2) Acute respiratory failure with hypoxia: Status: Acute (3) MORGAN on CPAP: Status: Acute (4) Chronic restrictive lung disease: Status: Acute (5) Mild bibasilar atelectasis: Status: Acute Plan This patient has super morbid obesity, BMI 66.7 She is a case of severe obstructive sleep apnea., claims that she uses her CPAP regularly at home. She also has evidence of hypoventilation with chronic hypercapnia, / compensated chronic respiratory failure. She has bibasilar atelectasis, which is most likely the cause of her hypoxemia. I do not think she has any active pneumonia. Recc . We need to get report of her previous sleep study and also the current to setting of her CPAP. She should be using BiPAP instead of CPAP. She needs to use her BiPAP every night for but least 6-8 hours, and may be a few hours during the daytime as well. Oxygen supplementation by nasal cannula to keep O2 sat above 89%. Patient needs to be encouraged to do deep breathing exercises with incentive spirometry and also pursed lip breathing technique. She needs to be closely followed as outpatient, for her ongoing management. Procedures Date of Service Date of Service: 09/09/21
[2021-09-09 18:21] LABS: Glucose, Whole Blood 348 mg/dL (60-115)
--- NOTE | 2021-09-09 18:48 | PC.NURSE ---
Resumed patient care at 1500- Patient alert and oriented, VVS, 90-94% on 2L, lung sounds diminished throughout. Patient c/o having diarrhea x6. Dr. Deshpande made aware imodium ordered and given per EMAR. Patient also c/o headache/migraine. Tylenol given. Dinner POC 348, given 8 units SSI. All needs met at this time.
--- NOTE | 2021-09-09 19:25 | PC.NURSE ---
Addendum entered by Carissa Roman 09/10/21 06:48: Report given to MINA Ragland Addendum entered by Carissa Roman 09/09/21 21:09: bS [id number] provider notify Addendum entered by Carissa Roman 09/09/21 19:48: pt resting in bed. no signs of acute distress notice. breathing equally unlabored. pt on continuos cardiac monitoring Original Note: report received from MINA Deal
[2021-09-09 20:34] LABS: Glucose, Whole Blood 380 mg/dL (60-115)
[2021-09-09] MEDS: Insulin Glargine,Hum.rec.anlog 100 UNIT/ML 10 ML VIAL 50 UNIT SUBCUT (21:18)
[2021-09-09] MEDS: Prazosin HCL 5 MG CAPSULE PO (21:19)
[2021-09-09] MEDS: QUEtiapine Fumarate 400 MG TABLET PO (21:19)
[2021-09-09] MEDS: Amitriptyline HCl 10 MG TABLET PO (21:19)
[2021-09-09] MEDS: lisinopriL 10 MG TABLET PO (21:19)
[2021-09-09] MEDS: Montelukast Sodium 10 MG TABLET PO (21:19)
[2021-09-09] MEDS: Divalproex Sodium ER 500 MG TAB.ER.24H 1000 MG PO (21:19)
--- NOTE | 2021-09-09 22:42 | PC.RT ---
Assisted pt with home CPAP unit. In good working condition, distilled water added. Pt applied unit for bedtime.
--- NOTE | 2021-09-09 22:42 | PM.EVENT ---
Event Note Date of Service: 09/09/21 Event Note: pt blood work grew gram positive cocci in clusters. likely contaminant but will order vancomycin and rpt cultures
--- NOTE | 2021-09-09 22:57 | PHA.PROG ---
Admission Date/Time: September 08, 2021 22:56 Indication: BACTEREMIA Weight in k.334 kg Adjusted body weight in Kg: [place] body weight in Kg: Obesity Dosing Indication % IBW: Serum Creatinine - Last 168 Hours 09/08/21 09/09/21 18:17 04:43 Creatinine 0.93 0.88 Estimated CrCl and GFR - Last 168 Hours 09/08/21 09/09/21 18:17 04:43 Estim Creat Clear Calc 126.2 133.4 Estimated GFR > 60 > 60 Vancomycin Loading Dose: 2000 Current Vancomycin Dosing Regimen: 1250 MG Q 12 HOURS Vancomycin Monitoring using AUC goal of 400 - 600 range with trough as surrogate marker: Date and Time for next Vancomycin Level to be drawn: Pharmacist Comments on Vancomycin Plan:WILL CHECK A LEVEL AFTER 2 DOSES FOR TOXICITY, PREDICTED AUC 555 Vancomycin dosing will take advantage of [employer] as a clinical decision support tool that uses Bayesian modeling to calculate individual patient's pharmacokinetic parameters and forecast the patient's drug concentration time course with the target goal AUC 24 range of 400 - 600 mg/L/hr.
[2021-09-10 04:57] LABS: Hematocrit 41.4 % (37.0-47.0); Hemoglobin 13.1 g/dl (12.0-16.0); Mean Corpuscular HGB Conc 31.6 g/dl (31.0-35.0); Mean Corpuscular Hemoglobin 28.1 pg (27.0-33.0); Mean Corpuscular Volume 88.8 fL (80.0-98.0); Mean Platelet Volume 12.8 fL (9.4-12.3); NRBC Pct Auto 0.3 /100WBC (0.0-0.2); Platelet Count 145 X10*3/uL (160-400); Red Blood Count 4.66 X10*6/uL (4.20-5.50); Red Cell Distribution Width 13.9 % (11.0-16.0); White Blood Count 6.7 X10*3/uL (4.8-10.8)
[2021-09-10 05:44] VITALS: BP 96/52; PULSE 94; RESP 13; TEMP 36.6; O2SAT 95
[2021-09-10] MEDS: Levothyroxine Sodium 175 MCG TABLET PO (05:56)
[2021-09-10 07:23] LABS: Anion Gap 19 (12-20); Blood Urea Nitrogen 12 mg/dL (9-16); Calcium 8.9 mg/dL (8.4-10.2); Carbon Dioxide 30 mmol/L (22-29); Chloride 84 mmol/L (96-108); Creatinine Clr Calc Pharmacy 66.3; Estimated Glomerular Filt Rate 30; Glucose Fasting 396 mg/dL (60-99); Potassium 4.2 mmol/L (3.3-5.1); Sodium 129 mmol/L (135-145)
[2021-09-10 08:00] VITALS: BP 94/60; PULSE 93; RESP 14; TEMP 36.4; O2SAT 91
[2021-09-10] MEDS: Cholecalciferol (Vitamin D3) 25 MCG TABLET 50 MCG PO (08:02)
[2021-09-10] MEDS: Folic Acid 1 MG TABLET PO (08:02)
[2021-09-10] MEDS: Furosemide 40 MG TABLET PO (08:02)
[2021-09-10] MEDS: Lurasidone HCl 20 MG TABLET 60 MG PO (08:02)
[2021-09-10] MEDS: Fluticasone Propionate Nasal 16 GM SPRAY 1 SPRAY NOSTRIL-B (08:02)
[2021-09-10] MEDS: Atorvastatin Calcium 20 MG TABLET PO (08:02)
[2021-09-10] MEDS: Insulin Lispro 100 UNIT/ML 3 ML VIAL SUBCUT ×6 (08:02→20:12)
[2021-09-10] MEDS: 0.9 % Sodium Chloride Flush 3 ML SYRINGE IVFLUSH ×2 (08:03→20:13)
[2021-09-10] MEDS: Multivitamin TABLET 1 TAB PO (08:03)
[2021-09-10 08:13] LABS: Glucose, Whole Blood 357 mg/dL (60-115)
--- NOTE | 2021-09-10 09:44 | HO.PM.IMPN ---
Subjective Subjective Date of Service: 09/10/21 Interval History: cc: sob interval history: cold Cardiovascular Cardiovascular: Reports no additional cardiovascular complaints Respiratory Respiratory: Reports no additional respiratory complaints Physical Exam Vital Signs: Vital Signs: Last Vital Signs Temp 97.5 F 09/10/21 08:00 Pulse 93 09/10/21 08:00 Resp 14 09/10/21 08:00 BP 94/60 09/10/21 08:00 Pulse Ox 91 L 09/10/21 08:00 O2 Del Method 09/10/21 08:00 O2 Flow Rate 2 09/10/21 08:00 Oxygen Flow Rate 3 09/08/21 17:35 BMI result Body Mass Index 66.6 General: AO X 3, no acute distress Resp: diminished bilateral, no accessory muscles used CVS: S1,S2,RRR GI: soft, non tender, non distended Neuro: motor grossly intact, alert Psych: appropriate affect, appropriate insight Objective Data Active Medications Acetaminophen (Acetaminophen 325 Mg Tablet) 650 mg PO Q6H PRN PRN Reason: Pain, Mild (Pain Scale 1-3) Last Admin: 09/09/21 17:07 Dose: 650 mg Documented By: YOSEPH Albuterol Sulfate (Albuterol Sulfate (0.083%) 2.5 Mg/3 Ml Vial.Neb) 2.5 mg INHALE RQID ON LICENSE OF [facility] Last Admin: 09/10/21 08:16 Dose: Not Given Documented By: VJ Non-Admin Reason: pt unavail Albuterol Sulfate (Albuterol Sulfate 90 Mcg 8 Gm Inhaler) 2 puff INHALE Q4H PRN PRN Reason: Respiratory Distress Albuterol/Ipratropium (Albuterol/Iprat 2.5/0.5mg 3 Ml Ampul.Neb) 3 ml INHALE RQ4H WHILE AWAKE PRN PRN Reason: Shortness of Breath/Wheezing Amitriptyline HCl (Amitriptyline Hcl 10 Mg Tablet) 10 mg PO BEDTIME ON LICENSE OF [facility] Last Admin: 09/09/21 21:19 Dose: 10 mg Documented By: KANNAN-ANICL Atenolol (Atenolol 50 Mg Tablet) 50 mg PO DAILY@1200 SHARI; Protocol Last Admin: 09/09/21 11:43 Dose: 50 mg Documented By: ELI Atorvastatin Calcium (Atorvastatin Calcium 20 Mg Tablet) 20 mg PO DAILY ON LICENSE OF [facility] Last Admin: 09/10/21 08:02 Dose: 20 mg Documented By: RADHA Benztropine Mesylate (Benztropine Mesylate 1 Mg Tablet) 1 mg PO BID@1200,2100 ON LICENSE OF [facility] Last Admin: 09/09/21 21:19 Dose: 1 mg Documented By: GWENDOLYN Dextrose (Dextrose 50 % 25 Gm/50 Ml Syringe) 25 gm IVPUSH Q15M PRN; Protocol PRN Reason: per Hypoglycemia Standing Ord. Divalproex Sodium (Divalproex Sodium 500 Mg Tablet.Dr) 500 mg PO DAILY@1200 ON LICENSE OF [facility] Last Admin: 09/09/21 11:43 Dose: 500 mg Documented By: ELI Divalproex Sodium (Divalproex Sodium Er 500 Mg Tab.Er.24h) 1,000 mg PO BEDTIME ON LICENSE OF [facility] Last Admin: 09/09/21 21:19 Dose: 1,000 mg Documented By: GWENDOLYN Docusate Sodium (Docusate Sodium 100 Mg Capsule) 100 mg PO DAILY@1200 PRN PRN Reason: Constipation Enoxaparin Sodium (Enoxaparin Sodium 40 Mg/0.4 Ml Syringe) 40 mg SUBCUT Q12H ON LICENSE OF [facility] Last Admin: 09/09/21 23:30 Dose: 40 mg Documented By: GWENDOLYN Fluticasone Propionate (Fluticasone Propionate Nasal 16 Gm [place]) 1 spray NOSTRIL-B DAILY ON LICENSE OF [facility] Last Admin: 09/10/21 08:02 Dose: 1 spray Documented By: RADHA Folic Acid (Folic Acid 1 Mg Tablet) 1 mg PO DAILY ON LICENSE OF [facility] Last Admin: 09/10/21 08:02 Dose: 1 mg Documented By: RADHA Glucose (Glucose Gel 15 Gm Gel..Gram.) 15 gm PO Q15M PRN; Protocol PRN Reason: per Hypoglycemia Standing Ord. Hydroxyzine HCl (Hydroxyzine Hcl 50 Mg Tablet) 50 mg PO TID PRN PRN Reason: Anxiety Last Admin: 09/09/21 17:07 Dose: 50 mg Documented By: YOSEPH Sodium Chloride (Ns) 1,000 mls @ 80 mls/hr IVCONT .[id number] ON LICENSE OF [facility] Stop: 09/11/21 10:44 Insulin Glargine (Insulin Glargine,Hum.Rec.Anlog 100 Unit/Ml 10 Ml Vial) 50 unit SUBCUT BEDTIME ON LICENSE OF [facility] Last Admin: 09/09/21 21:18 Dose: 50 unit Documented By: GWENDOLYN Comments: Insulin Human Lispro (Insulin Lispro 100 Unit/Ml 3 Ml Vial) 0 unit SUBCUT QIDACHS SHARI; Protocol Last Admin: 09/10/21 08:02 Dose: 10 unit Documented By: RADHA Levothyroxine Sodium (Levothyroxine Sodium 175 Mcg Tablet) 175 mcg PO DAILY@0630 ON LICENSE OF [facility] Last Admin: 09/10/21 05:56 Dose: 175 mcg Documented By: GWENDOLYN Lisinopril (Lisinopril 10 Mg Tablet) 10 mg PO BEDTIME ON LICENSE OF [facility]; Protocol Last Admin: 09/09/21 21:19 Dose: 10 mg Documented By: GWENDOLYN Loperamide HCl (Loperamide Hcl 2 Mg Capsule) 2 mg PO Q6H PRN PRN Reason: idarrhea Last Admin: 09/09/21 17:07 Dose: 2 mg Documented By: YOSEPH Lurasidone HCl (Lurasidone Hcl 20 Mg Tablet) 60 mg PO DAILY ON LICENSE OF [facility] Last Admin: 09/10/21 08:02 Dose: 60 mg Documented By: RADHA Melatonin (Melatonin 3 Mg Tablet) 6 mg PO BEDTIME PRN PRN Reason: Insomnia Last Admin: 09/09/21 00:50 Dose: 6 mg Documented By: EV Montelukast Sodium (Montelukast Sodium 10 Mg Tablet) 10 mg PO BEDTIME ON LICENSE OF [facility] Last Admin: 09/09/21 21:19 Dose: 10 mg Documented By: GWENDOLYN Multivitamins/Vitamin C (Multivitamin Tablet) 1 tab PO DAILY ON LICENSE OF [facility] Last Admin: 09/10/21 08:03 Dose: 1 tab Documented By: RADHA Pharmacy Consult (Consult Rx Perform Med Rec) 1 each MISCELLANE ONCE PRN PRN Reason: Consult order Pharmacy Consult (Consult Rx Vancomycin Dosing) 1 each MISCELLANE DAILY PRN PRN Reason: Consult order Prazosin HCl (Prazosin Hcl 5 Mg Capsule) 5 mg PO BEDTIME ON LICENSE OF [facility]; Protocol Last Admin: 09/09/21 21:19 Dose: 5 mg Documented By: GWENDOLYN Quetiapine Fumarate (Quetiapine Fumarate 25 Mg Tablet) 25 mg PO BID PRN PRN Reason: anxiety Quetiapine Fumarate (Quetiapine Fumarate 400 Mg Tablet) 400 mg PO BEDTIME ON LICENSE OF [facility] Last Admin: 09/09/21 21:19 Dose: 400 mg Documented By: GWENDOLYN Senna (Sennosides 8.6 Mg Tablet) 17.2 mg PO BEDTIME PRN PRN Reason: Constipation Sodium Chloride (0.9 % Sodium Chloride Flush 3 Ml Syringe) 3 ml IVFLUSH QSHIFT ON LICENSE OF [facility] Last Admin: 09/10/21 08:03 Dose: 3 ml Documented By: RADHA Sumatriptan Succinate (Sumatriptan Succinate 50 Mg Tablet) 50 mg PO DAILY PRN PRN Reason: Migraine Headache Last Admin: 09/09/21 11:43 Dose: 50 mg Documented By: ELI Thiamine HCl (Thiamine Hcl 100 Mg Tablet) 100 mg PO DAILY@1200 ON LICENSE OF [facility] Last Admin: 09/09/21 11:42 Dose: 100 mg Documented By: ELI Vitamin D (Cholecalciferol (Vitamin D3) 25 Mcg Tablet) 50 mcg PO DAILY ON LICENSE OF [facility] Last Admin: 09/10/21 08:02 Dose: 50 mcg Documented By: RADHA Labs CBC & Chem 7: 09/10/21 04:30 09/10/21 06:27 Labs: Laboratory Results - last 24 hr 09/09/21 09/09/21 09/09/21 11:07 14:23 18:15 MCV MCH MCHC RDW Plt Count MPV Absolute Nucleated RBC Nucleated RBC % (auto) Anion Gap Estim Creat Clear Calc Estimated GFR POC Glucose 489 H* 348 H Fasting Glucose Calcium Troponin I High Sens 9.6 09/09/21 09/10/21 09/10/21 20:29 04:30 06:27 MCV 88.8 MCH 28.1 MCHC 31.6 RDW 13.9 Plt Count 145 L D MPV 12.8 H Absolute Nucleated RBC 0.020 H Nucleated RBC % (auto) 0.3 H Anion Gap 19 Estim Creat Clear Calc 66.3 Estimated GFR 30 POC Glucose 380 H* Fasting Glucose 396 H* Calcium 8.9 D Troponin I High Sens 09/10/21 07:51 MCV MCH MCHC RDW Plt Count MPV Absolute Nucleated RBC Nucleated RBC % (auto) Anion Gap Estim Creat Clear Calc Estimated GFR POC Glucose 357 H* Fasting Glucose Calcium Troponin I High Sens Microbiology Microbiology Results: Microbiology 09/08/21 18:17 Blood Culture - Preliminary Blood - Venous Prelim: GPC Gram Stain only 09/08/21 18:24 Blood Culture - Preliminary Blood - Venous No growth after 24 hours. Assessment and Plan (1) Acute respiratory failure with hypoxia: Status: Acute Plan 51F presented with sob Acute hypoxic respiratory failure due to MORGAN/ohs Wean O2 as tolerated, follow-up pulmonary No evidence of bacterial infection MAYLIN suspect prerenal, will hold lasix, start ivf and monitor Hyponatremia Likely mild, component of pseudohyponatremia from hyperglycemia and diuretic use Monitor BMP, will give NS, monitor Diabetes with hyperglycemia Basal bolus insulin, monitor sugars Super Morbid obesity Weight loss strongly recommended Chronic diastolic CHF comfortably lying supine without sob, holding lasix, will gently hydrate for maylin Schizoaffective disorder Depakote, benztropine, amitriptyline, Latuda, Seroquel Hypertension Lisinopril, atenolol Hyperlipidemia Continue statin Hypothyroidism Changed to 150 mcg about 1 month ago, TSH still elevated at 19, increased to 175mcg daily DVT prophylaxis- Lovenox 40mg b.i.d. due to weight Full code reason for continued hospitalization:glucose control, maylin Quality Stroke Does the patient have a stroke diagnosis?: No VTE Prior VTE?: No VTE Risk Level:: Medical - moderate - high VTE Device Contraindication: Treatment Not Indicated VTE Drug Contraindication: N/A - Med Ordered
--- NOTE | 2021-09-10 10:41 | PM.PNPUL ---
Subjective Subjective Date of Service: 09/10/21 Principal diagnosis: MORGAN/Hypovent Interval history: This 51 years old female with morbid obesity and definite diagnosis of MORGAN hypoventilation syndrome, Was admitted with hypoxemia which is corrected by oxygen supplementation 2 L/minute. She is doing well and seems to be at her baseline. Her baseline situation is not very good, she is extremely debilitated an incapacitated, staying in the bed, which is not good for. She is more alert and oriented. She is eager to use her CPAP at night, but actually she should be on BiPAP settings. She wants to try with full face mask, which she has at home is nasal mask which is not adequate for her. Chest auscultation reveals very distant breath sounds, especially diminished over the basilar areas consistent with bibasilar atelectasis. I would recommend that she uses BiPAP at night at least for 8 hours, may also be educated to use it for 2-3 hours during the daytime. BiPAP settings suggested or 15/6 cm. She should also be on oxygen supplementation 2 L/minute along with the BiPAP. Encourage patient to be sitting up in the recliner most of the day. Encouraged her to do deep breathing exercises. Check venous blood gas daily, until pH is normalized and pCO2 is down into low 60s. Objective Data Labs CBC & Chem 7: 09/10/21 04:30 09/10/21 06:27 Labs: Laboratory Results - last 24 hr 09/09/21 09/09/21 09/09/21 11:07 14:23 18:15 WBC RBC Hgb Hct MCV MCH MCHC RDW Plt Count MPV Absolute Nucleated RBC Nucleated RBC % (auto) Sodium Potassium Chloride Carbon Dioxide Anion Gap BUN Creatinine Estim Creat Clear Calc Estimated GFR POC Glucose 489 H* 348 H Fasting Glucose Calcium Troponin I High Sens 9.6 09/09/21 09/10/21 09/10/21 20:29 04:30 06:27 WBC 6.7 RBC 4.66 Hgb 13.1 Hct 41.4 MCV 88.8 MCH 28.1 MCHC 31.6 RDW 13.9 Plt Count 145 L D MPV 12.8 H Absolute Nucleated RBC 0.020 H Nucleated RBC % (auto) 0.3 H Sodium 129 L Potassium 4.2 Chloride 84 L Carbon Dioxide 30 H Anion Gap 19 BUN 12 Creatinine 1.77 H Estim Creat Clear Calc 66.3 Estimated GFR 30 POC Glucose 380 H* Fasting Glucose 396 H* Calcium 8.9 D Troponin I High Sens 09/10/21 07:51 WBC RBC Hgb Hct MCV MCH MCHC RDW Plt Count MPV Absolute Nucleated RBC Nucleated RBC % (auto) Sodium Potassium Chloride Carbon Dioxide Anion Gap BUN Creatinine Estim Creat Clear Calc Estimated GFR POC Glucose 357 H* Fasting Glucose Calcium Troponin I High Sens Microbiology Microbiology Results: Microbiology 09/08/21 18:17 Blood - Venous Blood Culture - Preliminary Prelim: GPC Gram Stain only 09/08/21 18:24 Blood - Venous Blood Culture - Preliminary No growth after 24 hours. Physical Exam Vital Signs: Vital Signs: Last Vital Signs Temp 97.5 F 09/10/21 08:00 Pulse 93 09/10/21 08:00 Resp 14 09/10/21 08:00 BP 94/60 09/10/21 08:00 Pulse Ox 91 L 09/10/21 08:00 O2 Del Method 09/10/21 08:00 O2 Flow Rate 2 09/10/21 08:00 Oxygen Flow Rate 3 09/08/21 17:35 BMI result Body Mass Index 66.6 Procedures Date of Service Date of Service: 09/10/21 Assessment and Plan Assessment and plan (1) Morbid (severe) obesity due to excess calories: Status: Acute (2) MORGAN on CPAP: Status: Acute (3) Mild bibasilar atelectasis: Status: Acute (4) Acute respiratory failure with hypoxia: Status: Acute Plan RECC. I would recommend that she uses BiPAP at night at least for 8 hours, may also be educated to use it for 2-3 hours during the daytime. BiPAP settings suggested or 15/6 cm. She should also be on oxygen supplementation 2 L/minute along with the BiPAP. Encourage patient to be sitting up in the recliner most of the day. Encouraged her to do deep breathing exercises. Check venous blood gas daily, until pH is normalized and pCO2 is down into low 60s. Time Spent With Patient Time: Total time spent is greater than 50% in coordination of care (as documented) at patient's floor/unit and/or counseling patient: Progress Note: Quality Stroke Does the patient have a stroke diagnosis?: No
[2021-09-10 11:48] LABS: Glucose, Whole Blood 369 mg/dL (60-115)
[2021-09-10 12:17] LABS: VBG Base Excess 15.8 mmol/L; VBG HCO3 44 mmol/L (22-26); VBG pCO2 68 mmHg; VBG pH 7.41 (7.32-7.43); VBG pO2 61 mmHg
[2021-09-10 12:20] LABS: Venous Blood Gas Refer to POC result
[2021-09-10] MEDS: Loperamide HCl 2 MG CAPSULE PO (12:50)
[2021-09-10] MEDS: hydrOXYzine HCL 50 MG TABLET PO (12:52)
[2021-09-10 15:10] VITALS: BP 94/59; PULSE 97; RESP 19; TEMP 36.8; O2SAT 96
[2021-09-10] MEDS: Acetaminophen 325 MG TABLET 650 MG PO (15:36)
[2021-09-10] MEDS: Thiamine HCL 100 MG TABLET PO (15:36)
[2021-09-10] MEDS: Enoxaparin Sodium 40 MG/0.4 ML SYRINGE SUBCUT ×2 (15:36→23:53)
[2021-09-10] MEDS: Benztropine Mesylate 1 MG TABLET PO ×2 (15:36→20:11)
[2021-09-10] MEDS: Divalproex Sodium 500 MG TABLET.DR PO (15:40)
[2021-09-10] MEDS: 0.9 % Sodium Chloride 1,000 ML 80 ML IVCONT (15:40)
[2021-09-10 15:44] VITALS: BMI 66.9
[2021-09-10] MEDS: Albuterol Sulfate (0.083%) 2.5 MG/3 ML VIAL.NEB INHALE (15:56)
[2021-09-10 15:57] LABS: Glucose, Whole Blood 371 mg/dL (60-115)
[2021-09-10 15:58] VITALS: PULSE 97; RESP 18; O2SAT 94
[2021-09-10] MEDS: Nicotine 21 MG PATCH.TD24 TRANSDERMA (16:13)
[2021-09-10] MEDS: SUMAtriptan succinate 50 MG TABLET PO (16:13)
[2021-09-10 19:32] VITALS: BP 119/72; PULSE 93; RESP 18; TEMP 36.2; O2SAT 95
[2021-09-10 19:41] LABS: Glucose, Whole Blood 313 mg/dL (60-115)
[2021-09-10] MEDS: QUEtiapine Fumarate 400 MG TABLET PO (20:11)
[2021-09-10] MEDS: lisinopriL 10 MG TABLET PO (20:11)
[2021-09-10] MEDS: Amitriptyline HCl 10 MG TABLET PO (20:11)
[2021-09-10] MEDS: Montelukast Sodium 10 MG TABLET PO (20:11)
[2021-09-10] MEDS: Divalproex Sodium ER 500 MG TAB.ER.24H 1000 MG PO (20:11)
[2021-09-10] MEDS: Prazosin HCL 5 MG CAPSULE PO (20:11)
[2021-09-10] MEDS: Insulin Glargine,Hum.rec.anlog 100 UNIT/ML 10 ML VIAL 50 UNIT SUBCUT (20:12)
[2021-09-10 23:22] VITALS: BP 110/68; PULSE 92; RESP 18; TEMP 36.6; O2SAT 95
[2021-09-11] MEDS: 0.9 % Sodium Chloride 1,000 ML 80 ML IVCONT (03:08)
[2021-09-11] MEDS: Acetaminophen 325 MG TABLET 650 MG PO ×2 (03:44→10:55)
[2021-09-11 04:02] VITALS: BP 105/59; PULSE 93; RESP 22; TEMP 36.5; O2SAT 93
[2021-09-11] MEDS: Levothyroxine Sodium 175 MCG TABLET PO (05:31)
[2021-09-11 05:45] LABS: Hematocrit 37.1 % (37.0-47.0); Hemoglobin 11.8 g/dl (12.0-16.0); Mean Corpuscular HGB Conc 31.8 g/dl (31.0-35.0); Mean Corpuscular Volume 88.1 fL (80.0-98.0); Mean Platelet Volume 11.6 fL (9.4-12.3); Platelet Count 270 X10*3/uL (160-400); Red Blood Count 4.21 X10*6/uL (4.20-5.50); Red Cell Distribution Width 13.7 % (11.0-16.0); White Blood Count 6.7 X10*3/uL (4.8-10.8)
[2021-09-11 06:09] LABS: Anion Gap 14 (12-20); Blood Urea Nitrogen 13 mg/dL (9-16); Calcium 8.9 mg/dL (8.4-10.2); Carbon Dioxide 34 mmol/L (22-29); Chloride 85 mmol/L (96-108); Creatinine Clr Calc Pharmacy 117.7; Estimated Glomerular Filt Rate 59; Glucose Fasting 344 mg/dL (60-99); Sodium 129 mmol/L (135-145)
[2021-09-11 08:00] VITALS: BP 114/64; PULSE 111; RESP 20; TEMP 36.3; O2SAT 92
[2021-09-11 08:01] LABS: Glucose, Whole Blood 316 mg/dL (60-115)
[2021-09-11] MEDS: Cholecalciferol (Vitamin D3) 25 MCG TABLET 50 MCG PO (08:08)
[2021-09-11] MEDS: Insulin Lispro 100 UNIT/ML 3 ML VIAL SUBCUT ×4 (08:08→12:24)
[2021-09-11] MEDS: Multivitamin TABLET 1 TAB PO (08:09)
[2021-09-11] MEDS: Nicotine 21 MG PATCH.TD24 TRANSDERMA (08:09)
[2021-09-11] MEDS: Atorvastatin Calcium 20 MG TABLET PO (08:09)
[2021-09-11] MEDS: Folic Acid 1 MG TABLET PO (08:09)
[2021-09-11] MEDS: Lurasidone HCl 20 MG TABLET 60 MG PO (08:18)
[2021-09-11] MEDS: 0.9 % Sodium Chloride Flush 3 ML SYRINGE IVFLUSH (08:20)
[2021-09-11] MEDS: Albuterol Sulfate (0.083%) 2.5 MG/3 ML VIAL.NEB INHALE (09:16)
[2021-09-11] MEDS: Fluticasone Propionate Nasal 16 GM SPRAY 1 SPRAY NOSTRIL-B (10:22)
--- NOTE | 2021-09-11 10:29 | P.DS_ITS ---
DS: Providers Provider Date of Service: 09/11/21 Date of admission: 09/08/21 22:56 Primary care physician: LOUIE Finley Consults: 09/08/21 23:01 Consult to Pulmonology Routine Consulting Provider: Elian Maradiaga Reason for consultation: Hypoxia DS: Diagnosis Discharge Diagnosis (1) Morbid (severe) obesity due to excess calories: Status: Acute (2) MORGAN on CPAP: Status: Acute (3) Mild bibasilar atelectasis: Status: Acute (4) Acute respiratory failure with hypoxia: Status: Acute DS: Summary Hospital Course Hospital Course: form initial hpi: Chief Complaint: Shortness of breath 51-year-old female with a past medical history of hypertension, hyperlipidemia, diabetes, morbid obesity, BMI 66, COPD/restrictive lung disease, MORGAN on CPAP, hypothyroidism, schizoaffective disorder, PTSD, abdominal aortic aneurysm; presented to the hospital today with a chief complaint of shortness of breath.? Patient reports that for the past 1 week she has been having shortness of breath which has been gradually worsening; went to her PCP office where she was noted to have hypoxia to 80% on room air; subsequently EMS was called and sent to the hospital for further management.? Mentions that her shortness of breath worsens when lying flat.? Also on exertion.? Denies any chest pain or palpitations.? Denies any cough or sputum production.? Denies any recent travel or sick contacts.? Review of all other systems is negative except mentioned above ER course: Per ER team patient was reportedly saturating 71% at 1 point; placed on supplemental oxygen with improvement in oxygenation; concern for severe restrictive lung disease/atelectasis/hypoventilation given morbid obesity contributed to her hypoxia.? CT chest showed no evidence of pulmonary embolism but noted possible pneumonia.? Given empiric antibiotics.? Admitted to the hospital for further management. hospital course: Patient was admitted for acute hypoxic respiratory failure secondary to MORGAN/ohs. She was weaned down to 2 L. She was seen by Pulmonary who recommended using BiPAP at night 12/6 under for couple hours during the day. There was no evidence of bacterial infection. Course was complicated by acute kidney injury and hyponatremia this improved with IV fluids. Patient had diabetes with hy perglycemia and was improved with insulin. She has super morbid obesity weight loss is strongly recommended. For chronic diastolic CHF patient was lying comfortably supine and was likely more on the dry side. On discharge she will continue maintenance Lasix. For schizoaffective disorder she will continue Depakote, benztropine, amitriptyline, Latuda, Seroquel. For hypertension she will continue lisinopril and atenolol. For hyperlipidemia she will continue statin. For hypothyroidism her TSH was still elevated at 19, she had been on 150 mcg for about 1 month, it was increased to 175 mcg and should be followed up in about 1 month. Time Spent with Patient Time attestation: Total time spent providing and/or coordinating discharge services: Discharge coordination time: Greater than 30 minutes Quality: Safe Use of Opioids Does Pt have an Active Cancer Diagnosis on the Problem List?: No Quality: Stroke Does the patient have a stroke diagnosis?: No Physical Exam Vital Signs: Vital Signs: Last Vital Signs Temp 97.3 F 09/11/21 08:00 Pulse 111 H 09/11/21 08:00 Resp 20 09/11/21 08:00 BP 114/64 09/11/21 08:00 Pulse Ox 92 09/11/21 08:00 O2 Del Method 09/11/21 08:00 O2 Flow Rate 2.0 09/11/21 08:00 Oxygen Flow Rate 3 09/08/21 17:35 BMI result Body Mass Index 66.9 General: AO X 3, no acute distress Resp:? diminished bilateral, no accessory muscles used CVS: S1,S2,RRR GI: soft, non tender, non distended Neuro:? motor grossly intact, alert Psych: appropriate affect, appropriate insight? DS: Data Data Completed and Pending Labs on day of discharge: Laboratory Results - last 24 hr 09/10/21 09/10/21 09/10/21 11:44 12:12 15:11 WBC RBC Hgb Hct MCV MCH MCHC RDW Plt Count MPV Absolute Nucleated RBC Nucleated RBC % (auto) VBG pH 7.41 VBG pCO2 68 VBG pO2 61 VBG HCO3 44 H VBG O2 Saturation 88.0 VBG Base Excess 15.8 Sodium Potassium Chloride Carbon Dioxide Anion Gap BUN Creatinine Estim Creat Clear Calc Estimated GFR POC Glucose 369 H* 371 H* Fasting Glucose Calcium 09/10/21 09/11/21 09/11/21 19:29 04:44 04:44 WBC 6.7 RBC 4.21 Hgb 11.8 L Hct 37.1 MCV 88.1 MCH 28.0 MCHC 31.8 RDW 13.7 Plt Count 270 D MPV 11.6 Absolute Nucleated RBC 0.000 Nucleated RBC % (auto) 0.0 VBG pH VBG pCO2 VBG pO2 VBG HCO3 VBG O2 Saturation VBG Base Excess Sodium 129 L Potassium 4.0 Chloride 85 L Carbon Dioxide 34 H Anion Gap 14 BUN 13 Creatinine 1.00 Estim Creat Clear Calc 117.7 Estimated GFR 59 POC Glucose 313 H Fasting Glucose 344 H Calcium 8.9 09/11/21 07:34 WBC RBC Hgb Hct MCV MCH MCHC RDW Plt Count MPV Absolute Nucleated RBC Nucleated RBC % (auto) VBG pH VBG pCO2 VBG pO2 VBG HCO3 VBG O2 Saturation VBG Base Excess Sodium Potassium Chloride Carbon Dioxide Anion Gap BUN Creatinine Estim Creat Clear Calc Estimated GFR POC Glucose 316 H Fasting Glucose Calcium Preliminary micro results at discharge 09/09/21 23:02 Blood Culture - Preliminary Blood - Venous No growth after 24 hours. 09/09/21 23:02 Blood Culture - Preliminary Blood - Venous No growth after 24 hours. 09/08/21 18:24 Blood Culture - Preliminary Blood - Venous No growth after 48 hours. Discharge Plan Discharge Patient Disposition: Home, Self-Care Discharge Diagnosis: jhon Referrals: Toyin Pollard FNP [Primary Care Provider] - 1 Week Discharge Medications: Continued (DME) Ankle Brace Misc See Rx Instructions .ROUTE .MEDSUPPLY Qty: 1 0RF Rx Instructions: AIRSELECT, STANDARD, MEDIUM tramadol 50 mg tablet 50 mg PO BID PRN (Reason: Pain) Qty: 30 0RF levothyroxine 150 mcg capsule 150 mcg PO DAILY Qty: 90 1RF (DME) pen needle, diabetic [BD Ultra-Fine Mary Pen Needle] 32 gauge x 5/32 needle See Rx Instructions .ROUTE .MEDSUPPLY Qty: 125 6RF Rx Instructions: As directed four times a day multivitamin Tablet 1 tab PO DAILY atorvastatin 20 mg Tablet 20 mg PO DAILY thiamine HCl (vitamin B1) 100 mg Tablet 100 mg PO DAILY@1200 divalproex 500 mg Tablet,Delayed Release (Dr/Ec) 500 mg PO DAILY@1200 amitriptyline 10 mg Tablet 10 mg PO BEDTIME lisinopril 10 mg Tablet 10 mg PO BEDTIME benztropine 1 mg Tablet 1 mg PO BID@1200,2100 montelukast 10 mg Tablet 10 mg PO BEDTIME furosemide 40 mg tablet 1 tab PO DAILY prazosin 5 mg capsule 1 cap PO BEDTIME glimepiride 4 mg tablet 1 tab PO QPM divalproex 500 mg tablet extended release 24 hr 1,000 mg PO BEDTIME folic acid 1 mg tablet 1 tab PO QAM atenolol 50 mg tablet 50 mg PO DAILY@1200 melatonin 5 mg tablet 1 - 2 tab PO BEDTIME PRN (Reason: insomnia) Latuda 60 mg tablet 60 mg PO DAILY docusate sodium 100 mg Capsule 100 mg PO DAILY@1200 PRN (Reason: Constipation) quetiapine 400 mg tablet 400 mg PO BEDTIME quetiapine 25 mg tablet 1 tab PO BID PRN (Reason: anxiety) albuterol sulfate 2.5 mg /3 mL (0.083 %) solution for nebulization 1 amp inhalation QID alendronate 70 mg tablet 1 tab PO MO@0600 hydroxyzine HCl 50 mg tablet 1 tab PO TID PRN (Reason: Anxiety) fluticasone propionate 50 mcg/actuation spray,suspension 1 spray intranasal DAILY diclofenac sodium 1 % gel 2 g topical QID PRN (Reason: Pain) Protocol: Apply to: Apply to: KNEE, ANKLE, BACK lidocaine 5 % Adhesive Patch,Medicated 1 patch TOPICAL DAILY Protocol: Apply to: Apply to: KNEES AND BACK Rx Instructions: leave on most painful area for up to 12 hrs albuterol sulfate [ProAir HFA] 90 mcg/actuation Hfa Aerosol Inhaler 2 puff INHALATION Q4H PRN (Reason: Respiratory Distress) Triple Antibiotic Plus 3.5-500-10,000 [id number] Ointment 1 appl TOPICAL BID Protocol: Apply to: Apply to: ELBOW Tresiba FlexTouch U-200 200 unit/mL (3 mL) insulin pen 62 unit subcut BEDTIME acetaminophen 500 mg Tablet 1,000 mg PO Q6H PRN (Reason: Pain) white petrolatum Ointment 1 appl TOPICAL BID PRN (Reason: Dry Skin) sumatriptan succinate 50 mg Tablet 50 mg PO DAILY PRN (Reason: Migraine Headache) Rx Instructions: do not exceed 4 doses per 24 hrs insulin lispro [Humalog KwikPen Insulin] 100 unit/mL insulin pen 18 - 24 unit subcut TIDWM Spiriva Respimat 1.25 mcg/actuation Mist 2 puff INHALATION DAILY cholecalciferol (vitamin D3) 50 mcg (2,000 unit) tablet 50 mcg PO DAILY Discharge Orders: Discharge Order (Routine); Ordered 09/11/21 Ordered By: Edwin Deshpande Diet: advance to usual diet Activity on Discharge: As tolerated Stand Alone Forms: Patient Portal Discharge page Care Plan Goals: recovery Health Concerns: morgan Plan of Treatment: recommend that she uses BiPAP at night at least for 8 hours, may also be educated to use it for 2-3 hours during the daytime. BiPAP settings suggested or 15/6 cm. She should also be on oxygen supplementation 2 L/minute along with the BiPAP.? Encourage patient to be sitting up in the recliner most of the day. Encouraged her to do deep breathing exercises. Assessment: see above
[2021-09-11] MEDS: hydrOXYzine HCL 50 MG TABLET PO (10:55)
[2021-09-11 12:00] VITALS: BP 128/71; PULSE 104; RESP 18; TEMP 36.5; O2SAT 92
[2021-09-11 12:17] LABS: Glucose, Whole Blood 326 mg/dL (60-115)
[2021-09-11] MEDS: Benztropine Mesylate 1 MG TABLET PO (12:23)
[2021-09-11] MEDS: atenoloL 50 MG TABLET PO (12:23)
[2021-09-11] MEDS: Thiamine HCL 100 MG TABLET PO (12:23)
[2021-09-11] MEDS: Divalproex Sodium 500 MG TABLET.DR PO (12:23)
== END 2021-09-11 13:14 | disposition home or self-care (01) | DRG 143 ==
LOC: HO.ED 21:10 → HO.EDOVER 23:31 → HO.IMC 09-10 06:47 → HO.S3 09-11 03:26
PROVIDERS: Internal Medicine; Physician Assistant; Admitting Provider Hospitalist; Emergency Provider Internal Medicine; PCP Registered Nurse; Visit Provider Internal Medicine
DX: E66.2 Morbid (severe) obesity with alveolar hypoventilation (principal); J96.01 Acute respiratory failure with hypoxia; I11.0 Hypertensive heart disease with heart failure; I50.32 Chronic diastolic (congestive) heart failure; E87.1 Hypo-osmolality and hyponatremia; F25.9 Schizoaffective disorder, unspecified; E03.9 Hypothyroidism, unspecified; Z98.51 Tubal ligation status; I25.2 Old myocardial infarction; Z68.44 Body mass index [BMI] 60.0-69.9, adult; Z20.822 Contact with and (suspected) exposure to COVID-19; F17.210 Nicotine dependence, cigarettes, uncomplicated; F43.10 Post-traumatic stress disorder, unspecified; J98.11 Atelectasis; J98.4 Other disorders of lung; Z71.6 Tobacco abuse counseling; E11.65 Type 2 diabetes mellitus with hyperglycemia; Z88.5 Allergy status to narcotic agent; Z88.6 Allergy status to analgesic agent; Z91.040 Latex allergy status; Z79.4 Long term (current) use of insulin; Z79.51 Long term (current) use of inhaled steroids; Z79.890 Hormone replacement therapy; Z79.899 Other long term (current) drug therapy
CPT/HCPCS: 36415; 71045; 71275; 80048; 80076; 80307; 81001; 82803; 82947; 83605; 83735; 83880; 84145; 84439; 84443; 84484; 85025; 85027; 87040; 87076; 87147; 87185; 87205; 87635; 93005; 94640; 96365; 96366; 96375; 99285; J0456; J0696; J1650; J1940; J3370; J3475; Q9967

== ENCOUNTER 2021-09-14 22:37 | Inpatient (IN) | payer MEDICAID, SELFPAY ==
--- NOTE | ~2021-09-14 | XR_ITS ---
EXAMINATION: XR CHEST CLINICAL INFORMATION: Chest pain. COMPARISON: Chest radiograph dated from 09/15/2021. TECHNIQUE: AP view of the chest was obtained. FINDINGS: Stable appearance of the cardiomediastinal silhouette. Numerous EKG wires overlie the chest. Redemonstration of multifocal airspace opacities, similar to minimally increased on the right lung when compared to yesterday. No pleural effusion. No pneumothorax. No acute osseous abnormalities. XR/XR chest 1V IMPRESSION: Multifocal airspace opacities are similar to slightly progressed in the right lung when compared to the study from yesterday.
--- NOTE | ~2021-09-14 | XR_ITS ---
EXAMINATION: XR CHEST CLINICAL INFORMATION: Shortness of breath COMPARISON: Chest radiograph and CT angiography chest 09/08/2021 TECHNIQUE: Frontal view of the chest was obtained. FINDINGS: Since the prior study, there's been a deterioration findings and multifocal infiltrates have progressed in the right lung changes are only minimally worse in the left lung.. Lungs remain hypoinflated. Heart size upper limits of normal. No pleural effusions are seen. XR/XR chest 1V IMPRESSION: Worsening of multifocal pulmonary infiltrates, right greater than left.
[2021-09-14 22:46] VITALS: BP 137/82; PULSE 100; O2SAT 99
[2021-09-14 22:56] VITALS: BP 91/47; PULSE 108; RESP 18; TEMP 36.9; O2SAT 91; BMI 67.3
--- NOTE | 2021-09-14 23:11 | ED.SOB ---
HPI - SOB/Dyspnea General Chief Complaint: General Medical Stated Complaint: SOB Time Seen by Provider: 09/14/21 23:10 Source: patient Mode of arrival: EMS Limitations: no limitations History of Present Illness HPI Narrative: Patient 51 years old with history of hypertension, hyperlipidemia, deep diabetes, morbid obesity BMI 66, COPD/restrictive lung disease, Pickwickian syndrome, MORGAN on CPAP and hypothyroidism, schizophrenia and PTSD just discharged on 09/11 for acute respiratory failure with hypoxia comes back again today as patient while on CPAP noticed her pulse ox dropped to 71% patient was awake and alert at that time slightly is tired patient is supposed to be discharged on 2 L of oxygen which was never done and supposed to change to BiPAP when patient was admitted on 09/08 she had the same situation patient is supposed to be on BiPAP with setting of 01/09 and supposed to be on supplemental oxygen via BiPAP which she does not have. Also patient blood culture grew coagulase-negative Staph fusobacterium on 09/08 culture repeat culture on 09/09 was negative Related Data Home Medications Medication Instructions Recorded Confirmed amitriptyline 10 mg tablet 10 mg PO BEDTIME 01/10/20 09/15/21 atorvastatin 20 mg tablet 20 mg PO DAILY 01/10/20 09/15/21 benztropine 1 mg tablet 1 mg PO BID@1200,2100 01/10/20 09/15/21 divalproex 500 mg tablet,delayed 500 mg PO DAILY@1200 01/10/20 09/15/21 release lisinopril 10 mg tablet 10 mg PO BEDTIME 01/10/20 09/15/21 montelukast 10 mg tablet 10 mg PO BEDTIME 01/10/20 09/15/21 multivitamin 1 tab PO DAILY 01/10/20 09/15/21 thiamine HCl (vitamin B1) 100 mg 100 mg PO DAILY@1200 01/10/20 09/15/21 tablet atenolol 50 mg tablet 50 mg PO DAILY@1200 04/20/21 09/15/21 divalproex 500 mg tablet,extended 1,000 mg PO BEDTIME 04/20/21 09/15/21 release 24 hr docusate sodium 100 mg capsule 100 mg PO DAILY@1200 PRN 04/20/21 09/15/21 Constipation folic acid 1 mg tablet 1 tab PO QAM 04/20/21 09/15/21 furosemide 40 mg tablet 1 tab PO DAILY 04/20/21 09/15/21 glimepiride 4 mg tablet 1 tab PO QPM 04/20/21 09/15/21 lurasidone 60 mg tablet (Latuda) 60 mg PO DAILY 04/20/21 09/15/21 melatonin 5 mg tablet 1 - 2 tab PO BEDTIME PRN insomnia 04/20/21 09/15/21 prazosin 5 mg capsule 1 cap PO BEDTIME 04/20/21 09/15/21 quetiapine 400 mg tablet 400 mg PO BEDTIME 04/20/21 09/15/21 albuterol sulfate 1 amp inhalation QID 04/22/21 09/15/21 alendronate 70 mg tablet 1 tab PO MO@0600 04/22/21 09/15/21 diclofenac sodium 1 % topical gel 2 g topical QID PRN Pain 04/22/21 09/15/21 fluticasone propionate 50 1 spray intranasal DAILY 04/22/21 09/15/21 mcg/actuation nasal spray,suspension hydroxyzine HCl 50 mg tablet 1 tab PO TID PRN Anxiety 04/22/21 09/15/21 quetiapine 25 mg tablet 1 tab PO BID PRN anxiety 04/22/21 09/15/21 cholecalciferol (vitamin D3) 50 50 mcg PO DAILY 07/20/21 09/15/21 mcg (2,000 unit) tablet acetaminophen 500 mg tablet 1,000 mg PO Q6H PRN Pain 09/08/21 09/15/21 albuterol sulfate 90 mcg/actuation 2 puff inhalation Q4H PRN 09/08/21 09/15/21 aerosol inhaler (ProAir HFA) Respiratory Distress insulin degludec 200 unit/mL (3 62 unit subcut BEDTIME 09/08/21 09/15/21 mL) subcutaneous pen (Tresiba FlexTouch U-200 insulin) insulin lispro 100 unit/mL 18 - 24 unit subcut TIDWM 09/08/21 09/15/21 subcutaneous pen (Humalog KwikPen (U-100) Insulin) lidocaine 5 % topical patch 1 patch topical DAILY 09/08/21 09/15/21 ewjwx-dcweq-yammxvo-pramoxine 3.5 1 appl topical BID 06/22/22 06/29/22 mg-500 unit-10,000 unit/g top oint (Triple Antibiotic Plus) sumatriptan succinate 50 mg tablet 50 mg PO DAILY PRN Migraine 09/08/21 09/15/21 Headache tiotropium bromide 1.25 2 puff inhalation DAILY 09/08/21 09/15/21 mcg/actuation mist for inhalation (Spiriva Respimat) white petrolatum 1 appl topical BID PRN Dry Skin 09/08/21 09/15/21 Previous Rx's Medication Instructions Recorded leg brace (Ankle Brace) #1 ea 01/22/20 tramadol 50 mg tablet 50 mg PO BID PRN Pain #30 tabs 07/27/21 pen needle, diabetic 32 gauge x #125 ea 08/02/21 (BD Ultra-Fine Mary Pen Needle) levothyroxine 175 mcg tablet 175 mcg PO DAILY@0630 #30 tabs 09/11/21 Allergies Allergy/AdvReac Type Severity Reaction Status Date / Time metformin Allergy Intermediate Diarrhea Verified 07/20/21 11:20 morphine [MORPHINE] Allergy Intermediate Hives Verified 07/20/21 11:20 tetracycline Allergy Intermediate hives Verified 07/20/21 11:20 Latex, Natural Rubber Allergy Rash Verified 09/08/21 17:46 haloperidol [From HALDOL] AdvReac Intermediate Irritable Verified 07/20/21 11:20 duramorph/derivative or Allergy Intermediate hives Uncoded 07/20/21 11:20 morphi Review of Systems Review of Systems: Yes all other systems are reviewed and are negative PMFSH Past Medical History Medical History (Updated 09/15/21 @ 19:47 by Jacob Morrow MD) AAA (abdominal aortic aneurysm) without rupture ADHD Aortic aneurysm Arthritis Asthma Back pain Chronic restrictive lung disease Depression Diabetes Diabetes DM2 (diabetes mellitus, type 2) Fibula fracture Gallstone GERD (gastroesophageal reflux disease) Goiter Hepatitis Hernia History of posttraumatic stress disorder (PTSD) HLD (hyperlipidemia) HTN (hypertension) Hx of fracture of patella Hypothyroidism Migraine Morbid (severe) obesity due to excess calories Morbid obesity Myocardial infarction Obesity due to excess calories MORGAN on CPAP PTSD (post-traumatic stress disorder) Schizo affective schizophrenia Sleep apnea Umbilical hernia Vitamin D deficiency Surgical History History of incision and drainage Hx of knee surgery Hx of tubal ligation Tubal ligation status Family History Family History Father Unknown family medical history Mother No problems noted. 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) Alcohol intake: never Patient Tobacco Use Status: Current everyday Tobacco user Tobacco use type: Cigarette Cigarette Packs Per Day: 0.5 Cigarettes Per Day: 10.0 Years Smoked: 35 e-Cigarette/Vaping Use: Currently Using Use of substances other than those prescribed or required for medical reasons: No Substance Use Type: Marijuana Advance Directives: Yes Advance Directives on File: Yes Advance Directives Date on File: 09/09/21 Patient : No service: No Current occupational status: unemployed Physical Exam Vital Signs: Vital Signs: Last Vital Signs Temp 99.3 F 09/15/21 17:02 Pulse 105 H 09/15/21 19:41 Resp 18 09/15/21 19:41 BP 141/85 H 09/15/21 17:02 Pulse Ox 89 L 09/15/21 17:02 O2 Del Method 09/15/21 17:02 O2 Flow Rate 9 09/15/21 17:02 Oxygen Flow Rate 4 09/14/21 22:56 BMI result Body Mass Index 67.3 Appearance: Alert. Oriented X3. No acute distress. Morbidly obese Eyes: No pallor or icterus ENT: Pharynx normal. Oral Mucosa moist Neck: Normal inspection. Neck supple. CVS: Normal heart rate and rhythm. Pulses normal. Respiratory: No respiratory distress. Equal air entry bilateral, no wheezing/rales/rhonchi decreased air entry bilateral Abdomen: Soft and nontender. Bowel sounds are present, no mass palpable, no CVA tenderness Skin: Skin warm and dry. Normal skin color. Normal skin turgor. Extremities: No lower extremity edema. No calf tenderness Neuro: Oriented X 3. No motor deficit. No sensory deficit. MDM - SOB/Dyspnea MDM Narrative Medical decision making narrative: 233;Patient morbidly obese with chronic hypoxia patient is supposed to be discharged on BiPAP and 2 L oxygen with BiPAP which according to patient never received and still has CPAP at the time of discharge. Will keep the patient in the ER for observation try to arrange tomorrow BiPAP and oxygen and discharge patient home. Labs are pending chest x-ray with bilateral infiltrates COVID is pending case discussed with hospitalist will admit the patient for bilateral pneumonia with hypoxia 00:45 pt with b/l pneumonia, awaiting for lactic acid , blood c/s reordered, patient had transient low blood pressure 82/54 improved after rechecking to 96/50. Likely error . Medical Records Attestation: I reviewed the patient's medical records. Lab Data Attestation: I reviewed the patient's lab results. Result diagrams: 09/15/21 04:47 09/15/21 00:43 Labs: Lab Results 09/15/21 09/15/21 09/15/21 Range/Units 00:43 00:43 00:43 WBC 10.0 (4.8-10.8) X10*3/uL RBC 4.35 (4.20-5.50) X10*6/uL Hgb 12.2 (12.0-16.0) g/dl Hct 38.1 (37.0-47.0) % MCV 87.6 (80.0-98.0) fL MCH 28.0 (27.0-33.0) pg MCHC 32.0 (31.0-35.0) g/dl RDW 14.5 (11.0-16.0) % Plt Count 236 (160-400) X10*3/uL MPV 11.5 (9.4-12.3) fL Immature Gran % (Auto) 1.3 H (0.0-0.4) % Neut % (Auto) 53.3 (45-73) % Lymph % (Auto) 34.1 (20-40) % [place] % (Auto) 6.6 (2-11) % Eos % (Auto) 3.9 (0-4) % Baso % (Auto) 0.8 (0-2) % Lymph # (Auto) 3.4 (1.2-4.9) X10*3/uL [place] # (Auto) 0.7 (0.1-1.2) X10*3/uL Eos # (Auto) 0.4 (0.0-0.4) X10*3/uL Baso # (Auto) 0.1 (0.0-0.2) X10*3/uL Abs Immat Gran (auto) 0.13 H (0.00-0.03) X10*3/uL Absolute Neuts (auto) 5.3 (2.0-8.3) x10*3/uL Absolute Nucleated RBC 0.320 H (0.0-0.012) X10*3/uL Nucleated RBC % (auto) 3.2 H (0.0-0.2) /100WBC VBG pH (7.32-7.43) VBG pCO2 mmHg VBG pO2 mmHg VBG HCO3 (22-26) mmol/L VBG O2 Saturation % VBG Base Excess mmol/L Sodium 134 L (135-145) mmol/L Potassium 4.0 (3.3-5.1) mmol/L Chloride 87 L (96-108) mmol/L Carbon Dioxide 37 H (22-29) mmol/L Anion Gap 14 (12-20) BUN 13 (9-16) mg/dL Creatinine 1.45 H (0.5-1.4) mg/dL Estim Creat Clear Calc 81.5 Estimated GFR 38 Random Glucose 312 H (60-115) mg/dL Calcium 8.7 (8.4-10.2) mg/dL Total Bilirubin 0.3 (0.0-1.0) mg/dL AST 15 (5-31) U/L ALT 15 (0-31) U/L Alkaline Phosphatase 99 (39-117) U/L Troponin I High Sens 15.6 D (<3.5-17.0) ng/L B-Natriuretic Peptide 172 H (<100) pg/mL Total Protein 6.2 L (6.5-8.0) g/dL Albumin 3.3 L (3.5-5.0) g/dL COVID-19 (JEFFRY) (Negative) COVID-19 Clin Com 09/15/21 09/15/21 Range/Units 00:43 00:48 WBC (4.8-10.8) X10*3/uL RBC (4.20-5.50) X10*6/uL Hgb (12.0-16.0) g/dl Hct (37.0-47.0) % MCV (80.0-98.0) fL MCH (27.0-33.0) pg MCHC (31.0-35.0) g/dl RDW (11.0-16.0) % Plt Count (160-400) X10*3/uL MPV (9.4-12.3) fL Immature Gran % (Auto) (0.0-0.4) % Neut % (Auto) (45-73) % Lymph % (Auto) (20-40) % [place] % (Auto) (2-11) % Eos % (Auto) (0-4) % Baso % (Auto) (0-2) % Lymph # (Auto) (1.2-4.9) X10*3/uL [place] # (Auto) (0.1-1.2) X10*3/uL Eos # (Auto) (0.0-0.4) X10*3/uL Baso # (Auto) (0.0-0.2) X10*3/uL Abs Immat Gran (auto) (0.00-0.03) X10*3/uL Absolute Neuts (auto) (2.0-8.3) x10*3/uL Absolute Nucleated RBC (0.0-0.012) X10*3/uL Nucleated RBC % (auto) (0.0-0.2) /100WBC VBG pH 7.40 (7.32-7.43) VBG pCO2 68 mmHg VBG pO2 107 mmHg VBG HCO3 43 H (22-26) mmol/L VBG O2 Saturation 99.0 % VBG Base Excess 14.6 mmol/L Sodium (135-145) mmol/L Potassium (3.3-5.1) mmol/L Chloride (96-108) mmol/L Carbon Dioxide (22-29) mmol/L Anion Gap (12-20) BUN (9-16) mg/dL Creatinine (0.5-1.4) mg/dL Estim Creat Clear Calc Estimated GFR Random Glucose (60-115) mg/dL Calcium (8.4-10.2) mg/dL Total Bilirubin (0.0-1.0) mg/dL AST (5-31) U/L ALT (0-31) U/L Alkaline Phosphatase (39-117) U/L Troponin I High Sens (<3.5-17.0) ng/L B-Natriuretic Peptide (<100) pg/mL Total Protein (6.5-8.0) g/dL Albumin (3.5-5.0) g/dL COVID-19 (JEFFRY) Negative (Negative) COVID-19 Clin Com See Note ECG Data Attestation: I personally reviewed and interpreted this ECG as follows: Interpretation: sinus tachycardia with heart rate 108 beats per minute left axis deviation no acute ST wave and no acute ischemia Discharge Plan Discharge Clinical Impression: Chronic restrictive lung disease, MORGAN on CPAP, Acute and chronic respiratory failure with hypoxia, Pneumonia Patient Disposition: Admitted As Inpatient
--- NOTE | 2021-09-14 23:21 | ECG_ITS ---
Test Reason : SOB Blood Pressure : / mmHG Vent. Rate : 108 BPM Atrial Rate : 108 BPM P-R Int : 186 ms QRS Dur : 092 ms QT Int : 298 ms P-R-T Axes : 048 -31 062 degrees QTc Int : 399 ms Sinus tachycardia Left axis deviation Low voltage QRS Nonspecific T wave abnormality Abnormal ECG When compared with ECG of 09-SEP-2021 13:33, Nonspecific T wave abnormality now evident in Lateral leads Referred By: Pollo Valladares Electronically Signed By:CHRISSY GALLARDO
[2021-09-14] MEDS: Albuterol Sulfate (0.083%) 2.5 MG/3 ML VIAL.NEB 5 MG INHALE (23:27)
[2021-09-14] MEDS: Albuterol/Iprat 2.5/0.5MG 3 ML AMPUL.NEB INHALE (23:27)
[2021-09-14 23:50] VITALS: PULSE 111; RESP 21; O2SAT 90
[2021-09-15] VITALS (11 sets, daily range): BP systolic 82–154; BP diastolic 54–106; PULSE 91–117; RESP 15–21; TEMP 36.6–37.4; O2SAT 87–100
[2021-09-15] MEDS: cefTRIAXone sodium 2 GM in 0.9 % Sodium Chloride 50 ML IV (00:45)
[2021-09-15 00:48] LABS: MANUAL DIFF FLAG NO
[2021-09-15 00:50] LABS: Basophils Absolute Auto 0.1 X10*3/uL (0.0-0.2); Basophils Percent Auto 0.8 % (0-2); Eosinophils Absolute Auto 0.4 X10*3/uL (0.0-0.4); Eosinophils Percent Auto 3.9 % (0-4); Hematocrit 38.1 % (37.0-47.0); Hemoglobin 12.2 g/dl (12.0-16.0); Imm Gran Abs Auto 0.13 X10*3/uL (0.00-0.03); Imm Gran Pct Auto 1.3 % (0.0-0.4); Lymphocytes Absolute Auto 3.4 X10*3/uL (1.2-4.9); Lymphocytes Percent Auto 34.1 % (20-40); Mean Corpuscular Volume 87.6 fL (80.0-98.0); Mean Platelet Volume 11.5 fL (9.4-12.3); Monocytes Absolute Auto 0.7 X10*3/uL (0.1-1.2); Monocytes Percent Auto 6.6 % (2-11); NRBC Pct Auto 3.2 /100WBC (0.0-0.2); Neutrophils Absolute Auto 5.3 x10*3/uL (2.0-8.3); Neutrophils Percent Auto 53.3 % (45-73); Platelet Count 236 X10*3/uL (160-400); Red Blood Count 4.35 X10*6/uL (4.20-5.50); Red Cell Distribution Width 14.5 % (11.0-16.0)
[2021-09-15 00:52] LABS: VBG Base Excess 14.6 mmol/L; VBG HCO3 43 mmol/L (22-26); VBG pCO2 68 mmHg; VBG pO2 107 mmHg
[2021-09-15 00:54] LABS: Venous Blood Gas Refer to POC result
--- NOTE | 2021-09-15 00:58 | P.HPHOSP_ITS ---
History of Present Illness Date of Service: 09/15/21 Chief Complaint: Shortness of breath This is a 51-year-old female with past medical history of hypertension hyperlipidemia, diabetes, morbid obesity, COPD/restrictive lung disease on CPAP, MORGAN, schizoaffective disorder, hypothyroidism, PTSD, among others who presents to the hospital stating worsening shortness of breath. Patient was discharged from the hospital on 09/11 after being treated for hypoxic respiratory failure secondary to hypoventilation/severe restrictive lung disease, As well as pneumonia. She required oxygen during the hospital stay but was able to be weaned down to 2 L, she was seen by pulmonology who recommended using BiPAP at night as well as for few hours during the day, and was supposed to be sent home on oxygen. Patient reports that she never got her oxygen at home and since being discharged from the hospital she did not feel any better and has been feeling progressively worse. Patient reports increased shortness of breath, cough, as well as sputum production, she has chills, no fever, no chest pain, no abdominal pain nausea or vomiting, no diarrhea constipation, no urinary symptoms and no lower extremity edema. Goes to the ED patient was noted to be hypoxic on her BiPAP machine satting down to mid 80s. She is currently on 4 L of oxygen satting 88% Labs are significant for WBC count of 10, hemoglobin of 12.2, medical 38.1, pH of 7.40, pCO2 of 68, sodium 134, chloride of 87, creatinine of 1.45 with 1 on previous admission, lactic acid of 2.8, BNP of 172, Chest x-ray reveals worsening multifocal pulmonary infiltrates right greater than left Patient will be admitted for further management Review of Systems Review of Systems: Yes all other systems are reviewed and are negative [facility] Medical History AAA (abdominal aortic aneurysm) without rupture Asthma Chronic restrictive lung disease Depression Diabetes DM2 (diabetes mellitus, type 2) Hernia HLD (hyperlipidemia) Hypothyroidism Morbid (severe) obesity due to excess calories Morbid obesity Obesity due to excess calories MORGAN on CPAP Vitamin D deficiency Family History Father Unknown family medical history Mother No problems noted. 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) Alcohol intake: never Patient Tobacco Use Status: Current everyday Tobacco user Tobacco use type: Cigarette Cigarette Packs Per Day: 0.5 Cigarettes Per Day: 10.0 Years Smoked: 35 e-Cigarette/Vaping Use: Currently Using Use of substances other than those prescribed or required for medical reasons: No Substance Use Type: Marijuana Advance Directives: Yes Advance Directives on File: Yes Advance Directives Date on File: 09/09/21 Patient : No service: No Current occupational status: unemployed Meds Allergies Allergy/AdvReac Type Severity Reaction Status Date / Time metformin Allergy Intermediate Diarrhea Verified 07/20/21 11:20 morphine [MORPHINE] Allergy Intermediate Hives Verified 07/20/21 11:20 tetracycline Allergy Intermediate hives Verified 07/20/21 11:20 Latex, Natural Rubber Allergy Rash Verified 09/08/21 17:46 haloperidol [From HALDOL] AdvReac Intermediate Irritable Verified 07/20/21 11:20 duramorph/derivative or Allergy Intermediate hives Uncoded 07/20/21 11:20 morphi Active Medications: Current Medications Azithromycin 500 mg/ Sodium (Chloride) 250 mls @ 125 mls/hr IV ONCE ONE Stop: 09/15/21 02:55 Home Medications Medication Instructions Recorded Confirmed Last Taken Type amitriptyline 10 mg tablet 10 mg PO BEDTIME 01/10/20 09/08/21 09/07/21 History atorvastatin 20 mg tablet 20 mg PO DAILY 01/10/20 09/08/21 09/08/21 History benztropine 1 mg tablet 1 mg PO BID@1200,2100 01/10/20 09/08/21 09/08/21 History divalproex 500 mg tablet,delayed 500 mg PO DAILY@1200 01/10/20 09/08/21 09/08/21 History release lisinopril 10 mg tablet 10 mg PO BEDTIME 01/10/20 09/08/21 09/07/21 History montelukast 10 mg tablet 10 mg PO BEDTIME 01/10/20 09/08/21 09/07/21 History multivitamin 1 tab PO DAILY 01/10/20 09/08/21 09/08/21 History thiamine HCl (vitamin B1) 100 mg 100 mg PO DAILY@1200 01/10/20 09/08/21 09/08/21 History tablet atenolol 50 mg tablet 50 mg PO DAILY@1200 04/20/21 09/08/21 09/08/21 History divalproex 500 mg tablet,extended 1,000 mg PO BEDTIME 04/20/21 09/08/21 09/07/21 History release 24 hr docusate sodium 100 mg capsule 100 mg PO DAILY@1200 PRN 04/20/21 09/08/21 Unknown History Constipation folic acid 1 mg tablet 1 tab PO QAM 04/20/21 09/08/21 09/08/21 History furosemide 40 mg tablet 1 tab PO DAILY 04/20/21 09/08/21 09/08/21 History glimepiride 4 mg tablet 1 tab PO QPM 04/20/21 09/08/21 09/07/21 History lurasidone 60 mg tablet (Latuda) 60 mg PO DAILY 04/20/21 09/08/21 09/08/21 History melatonin 5 mg tablet 1 - 2 tab PO BEDTIME PRN insomnia 04/20/21 09/08/21 Unknown History prazosin 5 mg capsule 1 cap PO BEDTIME 04/20/21 09/08/21 09/07/21 History quetiapine 400 mg tablet 400 mg PO BEDTIME 04/20/21 09/08/21 09/07/21 History albuterol sulfate 1 amp inhalation QID 04/22/21 09/08/21 09/08/21 History alendronate 70 mg tablet 1 tab PO MO@0600 04/22/21 09/08/21 Unknown History diclofenac sodium 1 % topical gel 2 g topical QID PRN Pain 04/22/21 09/08/21 Unknown History fluticasone propionate 50 1 spray intranasal DAILY 04/22/21 09/08/21 09/08/21 History mcg/actuation nasal spray,suspension hydroxyzine HCl 50 mg tablet 1 tab PO TID PRN Anxiety 04/22/21 09/08/21 Unknown History quetiapine 25 mg tablet 1 tab PO BID PRN anxiety 04/22/21 09/08/21 Unknown History cholecalciferol (vitamin D3) 50 50 mcg PO DAILY 07/20/21 09/08/21 09/08/21 History mcg (2,000 unit) tablet acetaminophen 500 mg tablet 1,000 mg PO Q6H PRN Pain 09/08/21 09/08/21 Unknown History albuterol sulfate 90 mcg/actuation 2 puff inhalation Q4H PRN 09/08/21 09/08/21 Unknown History aerosol inhaler (ProAir HFA) Respiratory Distress insulin degludec 200 unit/mL (3 62 unit subcut BEDTIME 09/08/21 09/08/21 09/07/21 History mL) subcutaneous pen (Tresiba FlexTouch U-200 insulin) insulin lispro 100 unit/mL 18 - 24 unit subcut TIDWM 09/08/21 09/08/21 Unknown History subcutaneous pen (Humalog KwikPen (U-100) Insulin) lidocaine 5 % topical patch 1 patch topical DAILY 09/08/21 09/08/21 Unknown History eyqbl-suiwk-ifmuetr-pramoxine 3.5 1 appl topical BID 09/08/21 09/08/21 09/08/21 History mg-500 unit-10,000 unit/g top oint (Triple Antibiotic Plus) sumatriptan succinate 50 mg tablet 50 mg PO DAILY PRN Migraine 09/08/21 09/08/21 Unknown History Headache tiotropium bromide 1.25 2 puff inhalation DAILY 09/08/21 09/08/21 09/08/21 History mcg/actuation mist for inhalation (Spiriva Respimat) white petrolatum 1 appl topical BID PRN Dry Skin 09/08/21 09/08/21 Unknown History Physical Exam Vital Signs and Narrative: Vital Signs: Last Vital Signs Temp 97.9 F 09/15/21 00:03 Pulse 117 H 09/15/21 00:03 Resp 15 09/15/21 00:03 BP 82/54 L 09/15/21 00:03 Pulse Ox 90 L 09/15/21 00:03 O2 Del Method 09/15/21 00:03 O2 Flow Rate 4 09/15/21 00:03 Oxygen Flow Rate 4 09/14/21 22:56 BMI result Body Mass Index 67.3 Const: Other: Significantly obese patient, with short obese neck General: cooperative Orientation/consciousness: patient oriented x3 Eyes: General: appearance normal, both eyes and all related structures Resp: Other: Increased respiratory effort Distant breath sounds, Crackles bilaterally Effort & Inspection: Actively coughing and labored Cardio: Rate: regular rate Rhythm: regular rhythm GI: Palpation (GI): Soft to palpation Auscultation: normal bowel sounds Skin: General skin exam: no rashes or lesions noted Neuro: General: patient oriented x3 Cognition (Neuro): normal cognition Extrem: General: Yes normal to inspection and Yes no pedal edema Results Labs CBC and Chem 7: 09/15/21 04:47 09/15/21 00:43 Labs: Laboratory Results - last 24 hr 09/15/21 09/15/21 00:43 00:48 MCV 87.6 MCH 28.0 MCHC 32.0 RDW 14.5 Plt Count 236 MPV 11.5 Immature Gran % (Auto) 1.3 H Neut % (Auto) 53.3 Lymph % (Auto) 34.1 [place] % (Auto) 6.6 Eos % (Auto) 3.9 Baso % (Auto) 0.8 Lymph # (Auto) 3.4 [place] # (Auto) 0.7 Eos # (Auto) 0.4 Baso # (Auto) 0.1 Abs Immat Gran (auto) 0.13 H Absolute Neuts (auto) 5.3 Absolute Nucleated RBC 0.320 H Nucleated RBC % (auto) 3.2 H VBG pH 7.40 VBG pCO2 68 VBG pO2 107 VBG HCO3 43 H VBG O2 Saturation 99.0 VBG Base Excess 14.6 Imaging Radiologist's Impressions: Impressions Chest X-Ray 09/15/21 00:05 IMPRESSION: Worsening of multifocal pulmonary infiltrates, right greater than left. Assessment and Plan (1) Acute and chronic respiratory failure with hypoxia: Status: Acute (2) Pneumonia: Status: Acute Plan 51-year-old female with past medical history of chronic respiratory failure, on BiPAP at night as well as supposed to be discharged on oxygen presents to the hospital with complaints of worsening shortness of breath found to have worsening pneumonia # acute on chronic hypoxic respiratory failure - patient was discharged from the hospital in July, reports that she was supposed to go home on oxygen but never received oxygen - reports compliance with BiPAP - hypoxic on 4 L of oxygen - continue O2 supplement as required - treat underlying restrictive lung disease/BiPAP at bedtime and 2-3 hours during the day as recommended by some nausea on previous admission # pneumonia - worsening infiltrate on chest x-ray - patient reports increased cough and sputum production - will treat with broad-spectrum IV antibiotic - follow cultures # restrictive lung disease, hypoventilation syndrome - BiPAP at bedtime as well as 2-3 hrs intermittently duering the day # DM - LDSSI - diabetic diet # hypertension - stale - will continue home meds DVT ppx: heparin subq Given the acute hypoxic respiratory failure as well as worsening pneumonia patient required minimum 2 night hospital stay for IV antibiotics and oxygen Quality Stroke Does the patient have a stroke diagnosis?: No VTE Prior VTE?: No VTE Risk Level:: Medical - moderate - high VTE Device Contraindication: Treatment Not Indicated VTE Drug Contraindication: N/A - Med Ordered
[2021-09-15 01:04] LABS: Alanine Aminotransferase 15 U/L (0-31); Albumin Level 3.3 g/dL (3.5-5.0); Alkaline Phosphatase 99 U/L (39-117); Anion Gap 14 (12-20); Aspartate Amino Transferase 15 U/L (5-31); Bilirubin Total 0.3 mg/dL (0.0-1.0); Blood Urea Nitrogen 13 mg/dL (9-16); Calcium 8.7 mg/dL (8.4-10.2); Carbon Dioxide 37 mmol/L (22-29); Chloride 87 mmol/L (96-108); Creatinine Clr Calc Pharmacy 81.5; Estimated Glomerular Filt Rate 38; Glucose Random 312 mg/dL (60-115); Sodium 134 mmol/L (135-145); Total Protein 6.2 g/dL (6.5-8.0)
[2021-09-15 04:47] LABS: COVID-19 Test Negative (Negative)
[2021-09-15] MEDS: Heparin Sodium,Porcine 5,000 UNIT/ML VIAL 5000 UNIT SUBCUT ×3 (04:50→17:33)
[2021-09-15] MEDS: Azithromycin 500 MG in 0.9 % Sodium Chloride 250 ML 125 MG IV (04:50)
[2021-09-15] MEDS: Piperacillin Sodium/Tazobactam 3.375 GM in 0.9 % Sodium Chloride 50 ML IV ×4 (04:50→19:17)
[2021-09-15 04:55] LABS: MANUAL DIFF FLAG NO
[2021-09-15 04:56] LABS: Basophils Absolute Auto 0.1 X10*3/uL (0.0-0.2); Basophils Percent Auto 0.6 % (0-2); Eosinophils Absolute Auto 0.4 X10*3/uL (0.0-0.4); Eosinophils Percent Auto 4.2 % (0-4); Hematocrit 37.6 % (37.0-47.0); Hemoglobin 11.7 g/dl (12.0-16.0); Imm Gran Abs Auto 0.16 X10*3/uL (0.00-0.03); Imm Gran Pct Auto 1.9 % (0.0-0.4); Lymphocytes Absolute Auto 1.9 X10*3/uL (1.2-4.9); Lymphocytes Percent Auto 22.6 % (20-40); Mean Corpuscular HGB Conc 31.1 g/dl (31.0-35.0); Mean Corpuscular Hemoglobin 27.3 pg (27.0-33.0); Mean Corpuscular Volume 87.6 fL (80.0-98.0); Mean Platelet Volume 11.8 fL (9.4-12.3); Monocytes Absolute Auto 0.7 X10*3/uL (0.1-1.2); Monocytes Percent Auto 8.2 % (2-11); Neutrophils Absolute Auto 5.2 x10*3/uL (2.0-8.3); Neutrophils Percent Auto 62.5 % (45-73); Platelet Count 233 X10*3/uL (160-400); Red Blood Count 4.29 X10*6/uL (4.20-5.50); Red Cell Distribution Width 14.7 % (11.0-16.0); White Blood Count 8.3 X10*3/uL (4.8-10.8)
[2021-09-15 04:57] LABS: NRBC Pct Auto 2.7 /100WBC (0.0-0.2)
[2021-09-15 04:58] LABS: VBG Base Excess 12.3 mmol/L; VBG HCO3 38 mmol/L (22-26); VBG pCO2 55 mmHg; VBG pH 7.45 (7.32-7.43); VBG pO2 49 mmHg
[2021-09-15 05:01] LABS: Venous Blood Gas Refer to POC result
[2021-09-15 05:13] LABS: B Type Natriuretic Peptide 172 pg/mL (<100)
--- NOTE | 2021-09-15 05:14 | PC.NURSE ---
Pt began de-satting into the 70's while sleeping with the bipap on. Pt refused to sit upright and continued to lay supine on her bed. O2 was applied via NC at 4 LPM and sat increased to the high 80's/low 90's. Will continue to monitor respiratory status.
[2021-09-15 05:23] LABS: Lactic Acid 2.8 mmol/L (0.5-2.0)
[2021-09-15 05:24] LABS: Troponin-I High Sensitivity 15.6 ng/L (<3.5-17.0)
[2021-09-15 06:52] LABS: Reflex Lactate? Lactic Acid Added
[2021-09-15 07:15] LABS: Venous Blood Gas Refer to POC result
[2021-09-15 07:15] LABS: VBG Base Excess 12.6 mmol/L; VBG HCO3 40 mmol/L (22-26); VBG pCO2 65 mmHg; VBG pH 7.39 (7.32-7.43); VBG pO2 70 mmHg
[2021-09-15 07:27] LABS: ~Lactic Acid-LAB USE ONLY 2.4 mmol/L (0.5-2.0)
--- NOTE | 2021-09-15 07:40 | PHA.MEDREC ---
Pharmacy Consult ? Medication Reconciliation Pharmacy has reviewed the medication reconciliation. Patient was admitted about 5 days ago, complete medical reconciliation was done then by [facility].
[2021-09-15] MEDS: methylPREDNISolone Sod Succ 40 MG/ML VIAL IVPUSH ×2 (07:41→19:17)
[2021-09-15 07:47] LABS: Glucose, Whole Blood 336 mg/dL (60-115)
[2021-09-15] MEDS: Insulin Lispro 100 UNIT/ML 3 ML VIAL SUBCUT ×4 (08:01→21:08)
[2021-09-15] MEDS: Albuterol/Iprat 2.5/0.5MG 3 ML AMPUL.NEB INHALE ×4 (08:50→19:39)
[2021-09-15 09:12] LABS: Reflex Lactate? 2 Y
[2021-09-15 10:01] LABS: ~Lactic Acid-LAB USE ONLY 2.2 mmol/L (0.5-2.0)
--- NOTE | 2021-09-15 10:28 | PHA.PROG ---
Admission Date/Time: September 15, 2021 00:55 Indication: Pneumonia Weight in k.2 kg Adjusted body weight in K.26 kg [place] body weight in K.3 kg Obesity Dosing Indication % IBW: 319 % Serum Creatinine - Last 168 Hours 09/15/21 00:43 Creatinine 1.45 H Estimated CrCl and GFR - Last 168 Hours 09/15/21 00:43 Estim Creat Clear Calc 81.5 Estimated GFR 38 Vancomycin Loading Dose: 2000 mg Current Vancomycin Dosing Regimen: 750 mg Q12H Date and Time for next Vancomycin Level to be drawn: 09/16 @ 1900 Pharmacist Comments on Vancomycin Plan: Patient is morbidly obese therefore requires carefully monitoring as vancomycin can be unpredicatable. Patent was order 2000 mg over night however was documented not given. A second order for vancomycin 2000 mg was enter in the morning for a loading dose and was given at 0900. Maintenance dose vancomycin 750 mg Q12H schedule to start 09/15 @ 2100. Expected AUC 486 with a trough of 15.3. Pharmacy to monitor renal fucntion daily Trough to be drawn prior to 4th dose Pharmacy Vancomycin dosing will take advantage of Datalot as a clinical decision support tool that uses Bayesian modeling to calculate individual patient's pharmacokinetic parameters and forecast the patient's drug concentration time course with the target goal AUC 24 range of 400 - 600 mg/L/hr.
--- NOTE | 2021-09-15 12:19 | PM.EVENT ---
Event Note Date of Service: 09/15/21 Event Note: Patient was seen and evaluated this morning Reports feeling better today after treatment Continue to be in you IV, to wean down oxygen as tolerated Pending evaluation by the pulmonology
[2021-09-15 12:23] LABS: Glucose, Whole Blood 307 mg/dL (60-115)
--- NOTE | 2021-09-15 13:02 | MHC.CM.PN ---
Met with patient to discuss dc planning. She reports she lives alone, (with pet aubriet) and her boyfriend visits frequently. She is on service with [facility] and would like to continue those services. 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 She has a PT1 for transportation and boyfriend drives at times as well. She has a RW with a bench and a w/c. She has CPAP at home, but no oxygen. Anticipate home with resumption of current services. Discussed with MD and RT, plan for O2 continuous monitoring overnight while patient on CPAP and Blood Gas in the morning to determine if patient needs O2 at night with CPAP. Referral sent back to [facility], Ride home by boyfriend or set up through PT1.
[2021-09-15 15:06] LABS: Glucose, Whole Blood 345 mg/dL (60-115)
[2021-09-15 17:08] LABS: Glucose, Whole Blood 405 mg/dL (60-115)
--- NOTE | 2021-09-15 19:40 | P.CONPL_ITS ---
History of Present Illness History of Present Illness Consult date: 09/15/21 Chief complaint: Hypoxic resp failure, worsening PNA Narrative: this is an inpatient pulmonary consultation. The patient is a 51-year-old female with past medical history of hypertension hyperlipidemia, diabetes, morbid obesity, COPD/restrictive lung disease on CPAP, MORGAN, who initially presented to the hospital back in September 08 with worsening shortness of breath.? Patient was discharged from the hospital on 09/11 after being treated for hypoxic respiratory failure secondary to hypoventilation/severe restrictive lung disease,? As well as pneumonia.? She required oxygen during the hospital stay but was able to be weaned down to 2 L, she was seen by pulmonology who recommended using BiPAP at night as well as for few hours during the day, and was supposed to be sent home on oxygen.? Patient reports that she never got her oxygen at home and since being discharged from the hospital she did not feel any better and has been feeling progressively worse.? therefore the patient returned to the hospital with worsening respiratory symptoms. In the ED patient was noted to be hypoxic on her BiPAP machine satting down to mid 80s.? She is currently on 4 L of oxygen satting 88% Labs are significant for WBC count of 10, hemoglobin of 12.2, medical 38.1, pH of 7.40, pCO2 of 68, sodium 134, chloride of 87, creatinine of 1.45 with 1 on previous admission, lactic acid of 2.8, BNP of 172, Chest x-ray reveals worsening multifocal pulmonary infiltrates right greater than left. The patient is also using CPAP at nighttime. I did increase her pressure is because her AHI was still elevated around 12. Review of Systems Review of Systems: Constitutional: No Fever, No Chills ENT/Mouth: No sore throat, No Rhinorrhea, No Swallowing Difficulty Eyes: No Eye Pain, No Swelling, No Redness Cardiovascular: No Chest Pain, + SOB, + Orthopnea, + Edema Respiratory: + Cough, No Sputum, No Wheezing, + dyspnea Gastrointestinal: No Nausea, No Vomiting, No Diarrhea, No abdominal Pain Genitourinary: No Dysuria, No Urinary Frequency, No Hematuria Musculoskeletal: No joint pain, No Myalgias Skin: No Skin Lesions, No rash Neuro: No Weakness, No Numbness, No Dizziness, No Headache Psych:+ Anxiety/Panic, No Depression Heme/Lymph: No Bruising, No Lymphadenopathy Endocrine: No Polyuria, No Polydipsia [facility] Past Medical History Medical History (Updated 09/15/21 @ 19:47 by Jacob Morrow MD) AAA (abdominal aortic aneurysm) without rupture ADHD Aortic aneurysm Arthritis Asthma Back pain Chronic restrictive lung disease Depression Diabetes Diabetes DM2 (diabetes mellitus, type 2) Fibula fracture Gallstone GERD (gastroesophageal reflux disease) Goiter Hepatitis Hernia History of posttraumatic stress disorder (PTSD) HLD (hyperlipidemia) HTN (hypertension) Hx of fracture of patella Hypothyroidism Migraine Morbid (severe) obesity due to excess calories Morbid obesity Myocardial infarction Obesity due to excess calories MORGAN on CPAP PTSD (post-traumatic stress disorder) Schizo affective schizophrenia Sleep apnea Umbilical hernia Vitamin D deficiency Family History Family History Father Unknown family medical history Mother No problems noted. Sister Ovarian cancer Surgical History Surgical History History of incision and drainage Hx of knee surgery Hx of tubal ligation Tubal ligation status Social History Social History Household Members: None Housing: Apartment Are you a primary child care worker to a significant other at home: No Do you presently have visiting nurse or other home services: Yes ([employer]CH[employer]) Alcohol intake: never Patient Tobacco Use Status: Current everyday Tobacco user Tobacco use type: Cigarette Cigarette Packs Per Day: 0.5 Cigarettes Per Day: 10.0 Years Smoked: 35 e-Cigarette/Vaping Use: Currently Using Use of substances other than those prescribed or required for medical reasons: No Substance Use Type: Marijuana Advance Directives: Yes Advance Directives on File: Yes Advance Directives Date on File: 09/09/21 Patient : No service: No Current occupational status: unemployed Meds Allergies Allergy/AdvReac Type Severity Reaction Status Date / Time metformin Allergy Intermediate Diarrhea Verified 07/20/21 11:20 morphine [MORPHINE] Allergy Intermediate Hives Verified 07/20/21 11:20 tetracycline Allergy Intermediate hives Verified 07/20/21 11:20 Latex, Natural Rubber Allergy Rash Verified 09/08/21 17:46 haloperidol [From HALDOL] AdvReac Intermediate Irritable Verified 07/20/21 11:20 duramorph/derivative or Allergy Intermediate hives Uncoded 07/20/21 11:20 morphi Active Medications: Current Medications Acetaminophen (Acetaminophen 325 Mg Tablet) 650 mg PO Q6H PRN PRN Reason: Pain, Mild (Pain Scale 1-3) Albuterol/Ipratropium (Albuterol/Iprat 2.5/0.5mg 3 Ml Ampul.Neb) 3 ml INHALE Q4H PRN PRN Reason: Shortness of Breath/Wheezing Albuterol/Ipratropium (Albuterol/Iprat 2.5/0.5mg 3 Ml Ampul.Neb) 3 ml INHALE RQ4H WHILE AWAKE [facility] Last Admin: 09/15/21 19:39 Dose: 3 ml Docusate Sodium (Docusate Sodium 100 Mg Capsule) 100 mg PO DAILY PRN PRN Reason: Constipation Heparin Sodium (Porcine) (Heparin Sodium,Porcine 5,000 Unit/Ml Vial) 5,000 unit SUBCUT Q8H [facility] Last Admin: 09/15/21 17:33 Dose: 5,000 unit Piperacillin Sod/Tazobactam (Sod 3.375 gm/ Sodium Chloride) 50 mls @ 100 mls/hr IV Q6H [facility] Last Admin: 09/15/21 19:17 Dose: 100 mls/hr Vancomycin HCl 750 mg/ Sodium (Chloride) 265 mls @ 265 mls/hr IV Q12H [facility] Insulin Human Lispro (Insulin Lispro 100 Unit/Ml 3 Ml Vial) 0 unit SUBCUT QIDACHS [facility]; Protocol Last Admin: 09/15/21 17:35 Dose: 10 unit Methylprednisolone Sodium Succinate (Methylprednisolone Sod Succ 40 Mg/Ml Vial) 40 mg IVPUSH Q12H [facility] Last Admin: 09/15/21 19:17 Dose: 40 mg Ondansetron HCl (Ondansetron Hcl 4 Mg/2 Ml Vial) 4 mg IVPUSH Q8H PRN PRN Reason: Nausea and Vomiting Pharmacy Consult (Consult Rx Vancomycin Dosing) 1 each MISCELLANE DAILY PRN PRN Reason: Consult order Home Medications Medication Instructions Recorded Confirmed Last Taken Type amitriptyline 10 mg tablet 10 mg PO BEDTIME 01/10/20 09/15/21 09/07/21 History atorvastatin 20 mg tablet 20 mg PO DAILY 01/10/20 09/15/21 09/08/21 History benztropine 1 mg tablet 1 mg PO BID@1200,2100 01/10/20 09/15/21 09/08/21 History divalproex 500 mg tablet,delayed 500 mg PO DAILY@1200 01/10/20 09/15/21 09/08/21 History release lisinopril 10 mg tablet 10 mg PO BEDTIME 01/10/20 09/15/21 09/07/21 History montelukast 10 mg tablet 10 mg PO BEDTIME 01/10/20 09/15/21 09/07/21 History multivitamin 1 tab PO DAILY 01/10/20 09/15/21 09/08/21 History thiamine HCl (vitamin B1) 100 mg 100 mg PO DAILY@1200 01/10/20 09/15/21 09/08/21 History tablet atenolol 50 mg tablet 50 mg PO DAILY@1200 04/20/21 09/15/21 09/08/21 History divalproex 500 mg tablet,extended 1,000 mg PO BEDTIME 04/20/21 09/15/21 09/07/21 History release 24 hr docusate sodium 100 mg capsule 100 mg PO DAILY@1200 PRN 04/20/21 09/15/21 U nknown History Constipation folic acid 1 mg tablet 1 tab PO QAM 04/20/21 09/15/21 09/08/21 History furosemide 40 mg tablet 1 tab PO DAILY 04/20/21 09/15/21 09/08/21 History glimepiride 4 mg tablet 1 tab PO QPM 04/20/21 09/15/21 09/07/21 History lurasidone 60 mg tablet (Latuda) 60 mg PO DAILY 04/20/21 09/15/21 09/08/21 History melatonin 5 mg tablet 1 - 2 tab PO BEDTIME PRN insomnia 04/20/21 09/15/21 Unknown History prazosin 5 mg capsule 1 cap PO BEDTIME 04/20/21 09/15/21 09/07/21 History quetiapine 400 mg tablet 400 mg PO BEDTIME 04/20/21 09/15/21 09/07/21 History albuterol sulfate 1 amp inhalation QID 04/22/21 09/15/21 09/08/21 History alendronate 70 mg tablet 1 tab PO MO@0600 04/22/21 09/15/21 Unknown History diclofenac sodium 1 % topical gel 2 g topical QID PRN Pain 04/22/21 09/15/21 Unknown History fluticasone propionate 50 1 spray intranasal DAILY 04/22/21 09/15/21 09/08/21 History mcg/actuation nasal spray,suspension hydroxyzine HCl 50 mg tablet 1 tab PO TID PRN Anxiety 04/22/21 09/15/21 Unknown History quetiapine 25 mg tablet 1 tab PO BID PRN anxiety 04/22/21 09/15/21 Unknown History cholecalciferol (vitamin D3) 50 50 mcg PO DAILY 07/20/21 09/15/21 09/08/21 History mcg (2,000 unit) tablet acetaminophen 500 mg tablet 1,000 mg PO Q6H PRN Pain 09/08/21 09/15/21 Unknown History albuterol sulfate 90 mcg/actuation 2 puff inhalation Q4H PRN 09/08/21 09/15/21 Unknown History aerosol inhaler (ProAir HFA) Respiratory Distress insulin degludec 200 unit/mL (3 62 unit subcut BEDTIME 09/08/21 09/15/21 09/07/21 History mL) subcutaneous pen (Tresiba FlexTouch U-200 insulin) insulin lispro 100 unit/mL 18 - 24 unit subcut TIDWM 09/08/21 09/15/21 Unknown History subcutaneous pen (Humalog KwikPen (U-100) Insulin) lidocaine 5 % topical patch 1 patch topical DAILY 09/08/21 09/15/21 Unknown Hist ory kabaz-mpazv-vmpgpjz-pramoxine 3.5 1 appl topical BID 09/08/21 09/15/21 09/08/21 History mg-500 unit-10,000 unit/g top oint (Triple Antibiotic Plus) sumatriptan succinate 50 mg tablet 50 mg PO DAILY PRN Migraine 09/08/21 09/15/21 Unknown History Headache tiotropium bromide 1.25 2 puff inhalation DAILY 09/08/21 09/15/21 09/08/21 History mcg/actuation mist for inhalation (Spiriva Respimat) white petrolatum 1 appl topical BID PRN Dry Skin 09/08/21 09/15/21 Unknown History Physical Exam Vital Signs: Vital Signs: Last Vital Signs Temp 99.3 F 09/15/21 17:02 Pulse 100 09/15/21 17:02 Resp 18 09/15/21 17:02 BP 141/85 H 09/15/21 17:02 Pulse Ox 89 L 09/15/21 17:02 O2 Del Method 09/15/21 17:02 O2 Flow Rate 9 09/15/21 17:02 Oxygen Flow Rate 4 09/14/21 22:56 BMI result Body Mass Index 67.3 Const: General: alert and awake Orientation/consciousness: patient oriented x3 HEENT: Head: Yes normal to inspection General nose exam: No nasal polyps present and No nasal discharge present Face and sinus: Yes sinuses nontender Mouth: oropharynx normal Throat: No posterior oropharynx normal (Oropharynx is very narrow and crowded, Mallampati class 4) Eyes: General: appearance normal, both eyes and all related structures Neck: Neck: Yes no lymphadenopathy, Yes trachea midline, Yes no JVD and Yes other (Very short and obese neck) Thyroid: Thyroid normal Chest: Chest palpation & inspection: normal inspection of the chest, normal palpation of entire chest wall and no tenderness Resp: Other: Percussion note not perceptible because of the thick chest wall, breath sounds are diminished all over especially over the basilar areas. No crepitation or wheezes are heard. Auscultation: crackles on the right and diminished lung sounds Cardio: Palpation: PMI not normal (Not palpable) Rate: regular rate Rhythm: regular rhythm Heart sounds: no gallops and no murmurs GI: Palpation (GI): Soft to palpation, Tenderness to palpation present (GI), No hepatosplenomegaly present and Palpable mass present Auscultation: normal bowel sounds Back/Spine/Pelvis: Thoracic/Lumbar Spine: thoracic and lumbar spine normal to inspection Skin: General skin exam: no rashes or lesions noted Neuro: General: patient oriented x3 and no focal motor deficits Cranial nerves: Yes CN's II-XII intact bilaterally Extrem: General: Yes normal to inspection and Yes no calf tenderness Psych: Speech and movement: Normal speech and movement present Results Laboratory Findings CBC and BMP: 09/15/21 04:47 09/15/21 00:43 Abnormal lab findings: Abnormal Labs 09/15/21 09/15/21 09/15/21 00:43 00:43 00:43 Hgb Immature Gran % (Auto) 1.3 H Eos % (Auto) Abs Immat Gran (auto) 0.13 H Absolute Nucleated RBC 0.320 H Nucleated RBC % (auto) 3.2 H VBG pH VBG HCO3 Sodium 134 L Chloride 87 L Carbon Dioxide 37 H Creatinine 1.45 H POC Glucose Random Glucose 312 H Lactic Acid Lactic Acid F/U @ 2Hr Lactic Acid F/U @ 4Hr B-Natriuretic Peptide 172 H Total Protein 6.2 L Albumin 3.3 L 09/15/21 09/15/21 09/15/21 00:48 04:47 04:47 Hgb 11.7 L Immature Gran % (Auto) 1.9 H Eos % (Auto) 4.2 H Abs Immat Gran (auto) 0.16 H Absolute Nucleated RBC 0.220 H Nucleated RBC % (auto) 2.7 H VBG pH VBG HCO3 43 H Sodium Chloride Carbon Dioxide Creatinine POC Glucose Random Glucose Lactic Acid 2.8 H* Lactic Acid F/U @ 2Hr Lactic Acid F/U @ 4Hr B-Natriuretic Peptide Total Protein Albumin 09/15/21 09/15/21 09/15/21 04:52 07:06 07:11 Hgb Immature Gran % (Auto) Eos % (Auto) Abs Immat Gran (auto) Absolute Nucleated RBC Nucleated RBC % (auto) VBG pH 7.45 H VBG HCO3 38 H 40 H Sodium Chloride Carbon Dioxide Creatinine POC Glucose Random Glucose Lactic Acid Lactic Acid F/U @ 2Hr 2.4 H* Lactic Acid F/U @ 4Hr B-Natriuretic Peptide Total Protein Albumin 09/15/21 09/15/21 09/15/21 07:31 09:35 12:13 Hgb Immature Gran % (Auto) Eos % (Auto) Abs Immat Gran (auto) Absolute Nucleated RBC Nucleated RBC % (auto) VBG pH VBG HCO3 Sodium Chloride Carbon Dioxide Creatinine POC Glucose 336 H 307 H Random Glucose Lactic Acid Lactic Acid F/U @ 2Hr Lactic Acid F/U @ 4Hr 2.2 H* B-Natriuretic Peptide Total Protein Albumin 09/15/21 09/15/21 14:15 17:05 Hgb Immature Gran % (Auto) Eos % (Auto) Abs Immat Gran (auto) Absolute Nucleated RBC Nucleated RBC % (auto) VBG pH VBG HCO3 Sodium Chloride Carbon Dioxide Creatinine POC Glucose 345 H 405 H* Random Glucose Lactic Acid Lactic Acid F/U @ 2Hr Lactic Acid F/U @ 4Hr B-Natriuretic Peptide Total Protein Albumin Microbiology: Microbiology 09/15/21 00:54 Blood - Venous Blood Culture - Final 09/15/21 00:54 Blood - Venous Blood Culture - Final Assessment and Plan (1) Acute and chronic respiratory failure with hypoxia: Status: Acute (2) Pneumonia: Status: Acute Plan Respiratory pathogen panel Strep and Legionella urine ag Continue Zosyn/vanco APPA at night Oxygen to keep pox >90% Procedures Date of Service Date of Service: 09/15/21
--- NOTE | 2021-09-15 20:41 | PC.NURSE ---
pt requesting medication for heartburn aware
[2021-09-15 21:04] LABS: Glucose, Whole Blood 434 mg/dL (60-115)
[2021-09-15] MEDS: vancomycin HCL 750 MG in 0.9 % Sodium Chloride 250 ML 265 MG IV (21:06)
--- NOTE | 2021-09-15 21:38 | PC.NURSE ---
pt note secondary to pt care. this RN attempt to administer pt scheduled meds, pt IV pulled out of pt arm, this RN placed another IV, all safety measures maintained
[2021-09-16] VITALS (10 sets, daily range): BP systolic 117–163; BP diastolic 76–104; PULSE 75–107; RESP 16–24; TEMP 36.7–37.2; O2SAT 89–100
[2021-09-16] MEDS: Piperacillin Sodium/Tazobactam 3.375 GM in 0.9 % Sodium Chloride 50 ML IV ×4 (00:38→19:50)
[2021-09-16] MEDS: Heparin Sodium,Porcine 5,000 UNIT/ML VIAL 5000 UNIT SUBCUT ×3 (00:39→19:52)
--- NOTE | 2021-09-16 00:42 | PC.RT ---
Pt refused to wear CPAP for overnight oximetry test. RN states pt took off CPAP and was then placed back on OxyMask.
--- NOTE | 2021-09-16 00:47 | PC.NURSE ---
pt ripped off cpap stating its suffocating me aware, pt placed on 10L oxymaks. pt states I'm having an anxiety attack I need my pysc meds pt reports taking seroquel at night, aware.
[2021-09-16] MEDS: Divalproex Sodium ER 500 MG TAB.ER.24H 1000 MG PO ×2 (01:07→21:51)
[2021-09-16] MEDS: hydrOXYzine HCL 50 MG TABLET PO ×2 (01:08→19:50)
[2021-09-16] MEDS: QUEtiapine Fumarate 25 MG TABLET PO (01:10)
[2021-09-16] MEDS: Folic Acid 1 MG TABLET PO ×2 (01:10→10:08)
[2021-09-16] MEDS: Prazosin HCL 5 MG CAPSULE PO ×2 (01:29→21:48)
[2021-09-16] MEDS: QUEtiapine Fumarate 400 MG TABLET PO ×2 (01:29→21:50)
[2021-09-16 01:57] LABS: ABG Base Excess 11.6 mmol/L; ABG HCO3 39 mmol/L (22-26); ABG pCO2 65 mmHg (32-45); ABG pH 7.39 (7.35-7.45); ABG pO2 58 mmHg (83-108)
[2021-09-16 01:58] LABS: ABG Refer to POC result
[2021-09-16] MEDS: traMADoL HCL 50 MG TABLET PO ×2 (02:18→10:07)
--- NOTE | 2021-09-16 02:25 | PC.NURSE ---
pt called this RN into room screaming I need help I can't roll over in the bed and I need something to drink! pt moving extremities wildly and crying, this RN and EDT repositioned pt in bed an gave water, pt provided with verbal reassurance and medicated per MAR.
[2021-09-16 04:04] LABS: Creatinine Clr Calc Pharmacy 93.1; Estimated Glomerular Filt Rate 45
[2021-09-16 04:07] LABS: Anion Gap 18 (12-20); Blood Urea Nitrogen 17 mg/dL (9-16); Calcium 8.4 mg/dL (8.4-10.2); Carbon Dioxide 32 mmol/L (22-29); Chloride 85 mmol/L (96-108); Creatinine Clr Calc Pharmacy 93.8; Estimated Glomerular Filt Rate 45; Glucose Random 479 mg/dL (60-115); Potassium 5.6 mmol/L (3.3-5.1); Sodium 129 mmol/L (135-145)
--- NOTE | 2021-09-16 04:17 | PC.NURSE ---
pt BS 475, made aware
[2021-09-16] MEDS: Insulin Lispro 100 UNIT/ML 3 ML VIAL 10 UNIT SUBCUT ×3 (04:30→21:52)
[2021-09-16 06:01] LABS: Glucose, Whole Blood 407 mg/dL (60-115)
[2021-09-16] MEDS: Insulin Lispro 100 UNIT/ML 3 ML VIAL SUBCUT ×3 (07:46→21:53)
[2021-09-16] MEDS: methylPREDNISolone Sod Succ 40 MG/ML VIAL IVPUSH ×2 (07:49→19:52)
--- NOTE | 2021-09-16 08:18 | HE.PHANOTE ---
SINTIA VIRK CONTINUE CURRENT DOSE , TROUGH DUE 09/16 @1900
[2021-09-16] MEDS: Albuterol/Iprat 2.5/0.5MG 3 ML AMPUL.NEB INHALE ×4 (08:52→19:45)
--- NOTE | 2021-09-16 09:52 | PM.PNPUL ---
Subjective Subjective Date of Service: 09/16/21 Interval history: The patient was seen on exam. The patient 7 significant pleuritic discomfort to the left chest. Having significant shortness of breath. She is on a nasal cannula. She tried using the CPAP last night for 4 hours. She took it off ago she was very anxious. Objective Data Labs CBC & Chem 7: 09/15/21 04:47 09/16/21 03:32 Labs: Laboratory Results - last 24 hr 09/15/21 09/15/21 09/15/21 04:47 09:35 12:13 Smear Path Review SEE NOTE O2 Saturation ABG pH at Pt Temp ABG pCO2 at Pt Temp ABG pO2 at Pt Temp ABG HCO3 ABG Base Excess (Actual) Sodium Potassium Chloride Carbon Dioxide Anion Gap BUN Creatinine Estim Creat Clear Calc Estimated GFR POC Glucose 307 H Random Glucose Lactic Acid F/U @ 4Hr 2.2 H* Calcium 09/15/21 09/15/21 09/15/21 14:15 17:05 21:01 Smear Path Review O2 Saturation ABG pH at Pt Temp ABG pCO2 at Pt Temp ABG pO2 at Pt Temp ABG HCO3 ABG Base Excess (Actual) Sodium Potassium Chloride Carbon Dioxide Anion Gap BUN Creatinine Estim Creat Clear Calc Estimated GFR POC Glucose 345 H 405 H* 434 H* Random Glucose Lactic Acid F/U @ 4Hr Calcium 09/16/21 09/16/21 09/16/21 01:52 03:32 03:32 Smear Path Review O2 Saturation 84.0 ABG pH at Pt Temp 7.39 ABG pCO2 at Pt Temp 65 H* ABG pO2 at Pt Temp 58 L ABG HCO3 39 H ABG Base Excess (Actual) 11.6 Sodium 129 L Potassium 5.6 H D Chloride 85 L Carbon Dioxide 32 H Anion Gap 18 BUN 17 H Creatinine 1.26 1.27 Estim Creat Clear Calc 93.8 93.1 Estimated GFR 45 45 POC Glucose Random Glucose 479 H* Lactic Acid F/U @ 4Hr Calcium 8.4 09/16/21 05:52 Smear Path Review O2 Saturation ABG pH at Pt Temp ABG pCO2 at Pt Temp ABG pO2 at Pt Temp ABG HCO3 ABG Base Excess (Actual) Sodium Potassium Chloride Carbon Dioxide Anion Gap BUN Creatinine Estim Creat Clear Calc Estimated GFR POC Glucose 407 H* Random Glucose Lactic Acid F/U @ 4Hr Calcium Microbiology Microbiology Results: Microbiology 09/15/21 04:47 Blood - Venous Blood Culture - Preliminary No growth after 24 hours. 09/15/21 04:47 Blood - Venous Blood Culture - Preliminary No growth after 24 hours. 09/15/21 00:54 Blood - Venous Blood Culture - Final 09/15/21 00:54 Blood - Venous Blood Culture - Final Review of Systems Review of Systems Constitutional: No Fever, No Chills ENT/Mouth: No sore throat, No Rhinorrhea, No Swallowing Difficulty Eyes: No Eye Pain, No Swelling, No Redness Cardiovascular: + Chest Pain, + SOB, + Orthopnea, + Edema Respiratory: + Cough, No Sputum, No Wheezing, + dyspnea Gastrointestinal: No Nausea, No Vomiting, No Diarrhea, No abdominal Pain Genitourinary: No Dysuria, No Urinary Frequency, No Hematuria Musculoskeletal: No joint pain, No Myalgias Skin: No Skin Lesions, No rash Neuro: No Weakness, No Numbness, No Dizziness, No Headache Psych:+ Anxiety/Panic, No Depression Heme/Lymph: No Bruising, No Lymphadenopathy Endocrine: No Polyuria, No Polydipsia Physical Exam Vital Signs: Vital Signs: Last Vital Signs Temp 99.3 F 09/15/21 17:02 Pulse 97 09/16/21 09:12 Resp 19 09/16/21 09:12 BP 130/93 H 09/16/21 08:13 Pulse Ox 92 09/16/21 08:13 O2 Del Method 09/16/21 08:13 O2 Flow Rate 5 09/16/21 08:13 Oxygen Flow Rate 4 09/14/21 22:56 BMI result Body Mass Index 67.3 Const: General: alert and awake; No comfortable Orientation/consciousness: patient oriented x3 HEENT: Head: Yes normal to inspection General nose exam: No nasal polyps present and No nasal discharge present Face and sinus: Yes sinuses nontender Mouth: oropharynx normal Throat: No posterior oropharynx normal (Oropharynx is very narrow and crowded, Mallampati class 4) Eyes: General: appearance normal, both eyes and all related structures Neck: Neck: Yes no lymphadenopathy, Yes trachea midline, Yes no JVD and Yes other (Very short and obese neck) Thyroid: Thyroid normal Chest: Chest palpation & inspection: normal inspection of the chest, normal palpation of entire chest wall and no tenderness Resp: Other: Percussion note not perceptible because of the thick chest wall, breath sounds are diminished all over especially over the basilar areas. No crepitation or wheezes are heard. Auscultation: crackles on the right and diminished lung sounds Cardio: Palpation: PMI not normal (Not palpable) Rate: regular rate Rhythm: regular rhythm Heart sounds: no gallops and no murmurs GI: Palpation (GI): Soft to palpation, Tenderness to palpation present (GI), No hepatosplenomegaly present and Palpable mass present Auscultation: normal bowel sounds Back/Spine/Pelvis: Thoracic/Lumbar Spine: thoracic and lumbar spine normal to inspection Skin: General skin exam: no rashes or lesions noted Neuro: General: patient oriented x3 and no focal motor deficits Cranial nerves: Yes CN's II-XII intact bilaterally Extrem: General: Yes normal to inspection and Yes no calf tenderness Psych: Speech and movement: Normal speech and movement present Procedures Date of Service Date of Service: 09/16/21 Assessment and Plan Assessment and plan (1) Acute and chronic respiratory failure with hypoxia: Status: Acute (2) Pneumonia: Status: Acute (3) Pleuritic chest pain: Status: Acute (4) MORGAN on CPAP: Status: Acute Plan continue broad-spectrum antibiotics I did request a respiratory viral panel in addition to urine Legionella streptococcal antigen. They are still pending Toradol IV x1 for discomfort repeat chest x-ray if is not helpful repeating the CTA may be warranted. The patient is high risk for thromboembolic disease continue CPAP at nighttime. Will benefit from BiPAP based on her chronic respiratory acidosis Time Spent With Patient Time: Total time spent is greater than 50% in coordination of care (as documented) at patient's floor/unit and/or counseling patient: Progress Note: Quality Stroke Does the patient have a stroke diagnosis?: No
[2021-09-16] MEDS: vancomycin HCL 750 MG in 0.9 % Sodium Chloride 250 ML 265 MG IV (10:05)
[2021-09-16] MEDS: Cholecalciferol (Vitamin D3) 25 MCG TABLET 50 MCG PO (10:06)
[2021-09-16] MEDS: Lidocaine 4 % Patch ADH..PATCH 1 PATCH TRANSDERMA (10:08)
[2021-09-16] MEDS: Furosemide 40 MG TABLET PO (10:08)
[2021-09-16] MEDS: Atorvastatin Calcium 20 MG TABLET PO (10:08)
[2021-09-16] MEDS: Multivitamin TABLET 1 TAB PO (10:08)
[2021-09-16] MEDS: Ketorolac Tromethamine 15 MG/ML VIAL IVPUSH (10:10)
[2021-09-16] MEDS: Insulin Glargine,Hum.rec.anlog 100 UNIT/ML 10 ML VIAL 10 UNIT SUBCUT (10:12)
[2021-09-16] MEDS: Levothyroxine Sodium 175 MCG TABLET PO (10:12)
[2021-09-16] MEDS: Sodium Polystyrene Sulfon/Sorb 15 GM/60 ML ORAL.SUSP 30 GM PO (10:12)
[2021-09-16] MEDS: Benzonatate 100 MG CAPSULE 200 MG PO ×3 (13:04→21:51)
[2021-09-16 13:12] LABS: Glucose, Whole Blood 431 mg/dL (60-115)
[2021-09-16] MEDS: atenoloL 50 MG TABLET PO (13:54)
[2021-09-16] MEDS: Thiamine HCL 100 MG TABLET PO (13:54)
[2021-09-16] MEDS: Benztropine Mesylate 1 MG TABLET PO ×2 (13:54→21:50)
[2021-09-16] MEDS: Divalproex Sodium 500 MG TABLET.DR PO (13:55)
[2021-09-16] MEDS: Lurasidone HCl 20 MG TABLET 60 MG PO (14:06)
[2021-09-16] MEDS: Acetaminophen 325 MG TABLET 650 MG PO (15:13)
--- NOTE | 2021-09-16 16:00 | P.PNIM_ITS ---
Subjective Subjective Date of Service: 09/16/21 Interval History: the patient was seen and evaluated this morning Laying in bed, feels mild improvement but still having significant cough Denies any fever, chills or chest pain No reported other overnight events. Systemic review: No fever, chills or weakness No chest pain, palpitation reporting cough and dyspnea with ambulation No abdominal pain, nausea or vomiting No urinary symptoms No any rash or wounds Physical Exam Vital Signs: Vital Signs: Last Vital Signs Temp 98.1 F 09/16/21 15:52 Pulse 80 09/16/21 15:52 Resp 18 09/16/21 15:52 BP 147/104 H 09/16/21 15:52 Pulse Ox 92 09/16/21 15:52 O2 Del Method 09/16/21 15:52 O2 Flow Rate 5 09/16/21 08:13 Oxygen Flow Rate 4 09/14/21 22:56 BMI result Body Mass Index 67.3 Const: Other: Constitutional : Alert, interactive, morbidly obese, not in distress Neck : Normal inspection, Supple Cardiovascular : RRR, no JVP, no lower extremity edema Respiratory : decreased bilateral air entry, no crackles, bilateral scattered wheezes Gastrointestinal: soft, lax, Normal bowel sounds, Non tender Skin : Warm, Dry Neurological : Alert & oriented x3, No focal deficit , CN 2-12 within normal Objective Data Active Medications Acetaminophen (Acetaminophen 325 Mg Tablet) 650 mg PO Q6H PRN PRN Reason: Pain, Mild (Pain Scale 1-3) Last Admin: 09/16/21 15:13 Dose: 650 mg Documented By: YARDE Albuterol/Ipratropium (Albuterol/Iprat 2.5/0.5mg 3 Ml Ampul.Neb) 3 ml INHALE Q4H PRN PRN Reason: Shortness of Breath/Wheezing Albuterol/Ipratropium (Albuterol/Iprat 2.5/0.5mg 3 Ml Ampul.Neb) 3 ml INHALE RQ4H WHILE AWAKE [facility] Last Admin: 09/16/21 15:18 Dose: 3 ml Documented By: FLORY Amitriptyline HCl (Amitriptyline Hcl 10 Mg Tablet) 10 mg PO BEDTIME [facility] Last Admin: 09/16/21 03:32 Dose: Not Given Documented By: TA Non-Admin Reason: Patient Refused Atenolol (Atenolol 50 Mg Tablet) 50 mg PO DAILY@1200 SHARI; Protocol Last Admin: 09/16/21 13:54 Dose: 50 mg Documented By: YARED Atorvastatin Calcium (Atorvastatin Calcium 20 Mg Tablet) 20 mg PO DAILY [facility] Last Admin: 09/16/21 10:08 Dose: 20 mg Documented By: YARED Benzonatate (Benzonatate 100 Mg Capsule) 200 mg PO TID [facility] Last Admin: 09/16/21 15:13 Dose: 200 mg Documented By: YARED Benztropine Mesylate (Benztropine Mesylate 1 Mg Tablet) 1 mg PO BID@1200,2100 [facility] Last Admin: 09/16/21 13:54 Dose: 1 mg Documented By: YARED Divalproex Sodium (Divalproex Sodium 500 Mg Tablet.Dr) 500 mg PO DAILY@1200 [facility] Last Admin: 09/16/21 13:55 Dose: 500 mg Documented By: YARED Divalproex Sodium (Divalproex Sodium Er 500 Mg Tab.Er.24h) 1,000 mg PO BEDTIME [facility] Last Admin: 09/16/21 01:07 Dose: 1,000 mg Documented By: TA Docusate Sodium (Docusate Sodium 100 Mg Capsule) 100 mg PO DAILY PRN PRN Reason: Constipation Folic Acid (Folic Acid 1 Mg Tablet) 1 mg PO DAILY [facility] Last Admin: 09/16/21 10:08 Dose: 1 mg Documented By: YARED Furosemide (Furosemide 40 Mg Tablet) 40 mg PO DAILY [facility]; Protocol Last Admin: 09/16/21 10:08 Dose: 40 mg Documented By: YARED Heparin Sodium (Porcine) (Heparin Sodium,Porcine 5,000 Unit/Ml Vial) 5,000 unit SUBCUT Q8H [facility] Last Admin: 09/16/21 10:09 Dose: 5,000 unit Documented By: YARED Hydroxyzine HCl (Hydroxyzine Hcl 50 Mg Tablet) 50 mg PO TID PRN PRN Reason: Anxiety Last Admin: 09/16/21 01:08 Dose: 50 mg Documented By: TA Piperacillin Sod/Tazobactam (Sod 3.375 gm/ Sodium Chloride) 50 mls @ 100 mls/hr IV Q6H [facility] Last Infusion: 09/16/21 15:07 Dose: 0 mls/hr Documented By: YARED Vancomycin HCl 750 mg/ Sodium (Chloride) 265 mls @ 265 mls/hr IV Q12H SHARI Last Infusion: 09/16/21 14:10 Dose: 0 mls/hr Documented By: YARED Insulin Glargine (Insulin Glargine,Hum.Rec.Anlog 100 Unit/Ml 10 Ml Vial) 50 unit SUBCUT BEDTIME SHARI Insulin Human Lispro (Insulin Lispro 100 Unit/Ml 3 Ml Vial) 0 unit SUBCUT QIDACHS [facility]; Protocol Last Admin: 09/16/21 13:55 Dose: 10 unit Documented By: YARED Levothyroxine Sodium (Levothyroxine Sodium 175 Mcg Tablet) 175 mcg PO DAILY@629 [facility] Last Admin: 09/16/21 10:12 Dose: 175 mcg Documented By: YARED Lidocaine (Lidocaine 4 % Patch Adh..Patch) 1 patch TRANSDERMA DAILY [facility] Last Admin: 09/16/21 10:08 Dose: 1 patch Documented By: YARED Lisinopril (Lisinopril 10 Mg Tablet) 10 mg PO BEDTIME [facility]; Protocol Lurasidone HCl (Lurasidone Hcl 20 Mg Tablet) 60 mg PO DAILY [facility] Last Admin: 09/16/21 14:06 Dose: 60 mg Documented By: YARED Methylprednisolone Sodium Succinate (Methylprednisolone Sod Succ 40 Mg/Ml Vial) 40 mg IVPUSH Q12H [facility] Last Admin: 09/16/21 07:49 Dose: 40 mg Documented By: YARED Montelukast Sodium (Montelukast Sodium 10 Mg Tablet) 10 mg PO BEDTIME [facility] Multivitamins/Vitamin C (Multivitamin Tablet) 1 tab PO DAILY [facility] Last Admin: 09/16/21 10:08 Dose: 1 tab Documented By: YARED Neomycin/Polymyxin/Bacitracin (Neomy/Polymyx/Bacit/Ointment 1 Each Oint.Pack) 1 appl TOPICAL BID [facility] Last Admin: 09/16/21 10:11 Dose: 1 appl Documented By: YARED Ondansetron HCl (Ondansetron Hcl 4 Mg/2 Ml Vial) 4 mg IVPUSH Q8H PRN PRN Reason: Nausea and Vomiting Pharmacy Consult (Consult Rx Vancomycin Dosing) 1 each MISCELLANE DAILY PRN PRN Reason: Consult order Prazosin HCl (Prazosin Hcl 5 Mg Capsule) 5 mg PO BEDTIME [facility]; Protocol Last Admin: 09/16/21 01:29 Dose: 5 mg Documented By: TA Quetiapine Fumarate (Quetiapine Fumarate 25 Mg Tablet) 25 mg PO BID PRN PRN Reason: anxiety Last Admin: 09/16/21 01:10 Dose: 25 mg Documented By: TA Quetiapine Fumarate (Quetiapine Fumarate 400 Mg Tablet) 400 mg PO BEDTIME [facility] Last Admin: 09/16/21 01:29 Dose: 400 mg Documented By: TA Sumatriptan Succinate (Sumatriptan Succinate 50 Mg Tablet) 50 mg PO DAILY PRN PRN Reason: Migraine Headache Thiamine HCl (Thiamine Hcl 100 Mg Tablet) 100 mg PO DAILY@1200 [facility] Last Admin: 09/16/21 13:54 Dose: 100 mg Documented By: YARED Tiotropium [place] (Tiotropium [place] 18 Mcg Cap.W.Dev) 1 puff INHALE RDAILY [facility] Last Admin: 09/16/21 10:12 Dose: Not Given Documented By: YARED Non-Admin Reason: Patient Refused Tramadol HCl (Tramadol Hcl 50 Mg Tablet) 50 mg PO Q6H PRN PRN Reason: Pain, Severe (Pain Scale 7-10) Vitamin D (Cholecalciferol (Vitamin D3) 25 Mcg Tablet) 50 mcg PO DAILY [facility] Last Admin: 09/16/21 10:06 Dose: 50 mcg Documented By: YARED Labs CBC & Chem 7: 09/15/21 04:47 09/16/21 03:32 Labs: Laboratory Results - last 24 hr 09/15/21 09/15/21 09/16/21 17:05 21:01 01:52 O2 Saturation 84.0 ABG pH at Pt Temp 7.39 ABG pCO2 at Pt Temp 65 H* ABG pO2 at Pt Temp 58 L ABG HCO3 39 H ABG Base Excess (Actual) 11.6 Anion Gap Estim Creat Clear Calc Estimated GFR POC Glucose 405 H* 434 H* Random Glucose Calcium 09/16/21 09/16/21 09/16/21 03:32 03:32 05:52 O2 Saturation ABG pH at Pt Temp ABG pCO2 at Pt Temp ABG pO2 at Pt Temp ABG HCO3 ABG Base Excess (Actual) Anion Gap 18 Estim Creat Clear Calc 93.8 93.1 Estimated GFR 45 45 POC Glucose 407 H* Random Glucose 479 H* Calcium 8.4 09/16/21 13:08 O2 Saturation ABG pH at Pt Temp ABG pCO2 at Pt Temp ABG pO2 at Pt Temp ABG HCO3 ABG Base Excess (Actual) Anion Gap Estim Creat Clear Calc Estimated GFR POC Glucose 431 H* Random Glucose Calcium Microbiology Microbiology Results: Microbiology 09/15/21 04:47 Blood Culture - Preliminary Blood - Venous No growth after 24 hours. 09/15/21 04:47 Blood Culture - Preliminary Blood - Venous No growth after 24 hours. Assessment and Plan (1) Acute and chronic respiratory failure with hypoxia: Status: Acute (2) Pneumonia: Status: Acute Plan 51-year-old female with past medical history of chronic respiratory failure, on BiPAP at night as well as supposed to be discharged on oxygen presents to the hospital with complaints of worsening shortness of breath found to have worsening pneumonia # acute on chronic hypoxic respiratory failure # pneumonia was supposed to go home on oxygen but never received oxygen continue O2 supplement as required worsening infiltrate on chest x-ray Continue broad-spectrum IV antibiotic follow cultures pulmonology input appreciated overnight pulse oximetry done # restrictive lung disease, hypoventilation syndrome BiPAP at bedtime as well as 2-3 hrs intermittently duering the day # DM LDSSI diabetic diet # hypertension continue home meds DVT ppx: heparin subq Given the acute hypoxic respiratory failure as well as worsening pneumonia patient required Overnight hospital stay for IV antibiotics and oxygen Quality Stroke Does the patient have a stroke diagnosis?: No VTE Prior VTE?: No VTE Risk Level:: Medical - moderate - high VTE Device Contraindication: Treatment Not Indicated VTE Drug Contraindication: N/A - Med Ordered
[2021-09-16 19:25] LABS: Vancomycin Trough 11.9 mcg/mL (10.0-20.0)
[2021-09-16 19:35] LABS: Glucose, Whole Blood 440 mg/dL (60-115)
--- NOTE | 2021-09-16 19:40 | PHA.PROG ---
Vancomycin Dosing Addendum Indication: Pneumonia Weight in k.2 kg Adjusted body weight in K.26 kg Kress body weight in K.3 kg Obesity Dosing Indication % IBW: 319 % Serum Creatinine - Last 168 Hours 09/15/21 09/16/21 09/16/21 00:43 03:32 03:32 Creatinine 1.45 H 1.26 1.27 Estimated CrCl and GFR - Last 168 Hours 09/15/21 09/16/21 09/16/21 00:43 03:32 03:32 Estim Creat Clear Calc 81.5 93.8 93.1 Estimated GFR 38 45 45 Vancomycin Loading Dose: 2000 mg Current Vancomycin Dosing Regimen: 750 mg Q12H Vancomycin Trough 11.9 mcg/mL (10.0-20.0) 09/16/21 18:58 Pharmacist Comments on Vancomycin Plan: Patient is morbidly obese therefore requires carefully monitoring as vancomycin can be unpredictable. Patient's renal function has slightly improved after initiating vancomycin. Trough today is 11.7 which is therapeutic most likely due to patient's loading dose. However, current regimen is expected to become subtherpatuic decreasing to trough of 8.5. Will increase dose to 1000 mg Q12H. New expected AUC of 448 with a trough of 11.3 Will draw trough in 24 hours to assess for safety. Trough due 09/17/21 @ 1900 Pharmacy to monitor renal function daily Chantel White, Joe Vancomycin dosing will take advantage of [employer] as a clinical decision support tool that uses Bayesian modeling to calculate individual patient's pharmacokinetic parameters and forecast the patient's drug concentration time course with the target goal AUC 24 range of 400 - 600 mg/L/hr.
[2021-09-16 21:18] LABS: Glucose, Whole Blood 446 mg/dL (60-115)
--- NOTE | 2021-09-16 21:29 | PM.EVENT ---
Event Note Date of Service: 09/16/21 Event Note: Pt significantly hyperglyceimic, requiring multiple extra doses of lispro
[2021-09-16] MEDS: vancomycin HCL 1,000 MG in 0.9 % Sodium Chloride 250 ML 270 MG IV (21:49)
[2021-09-16] MEDS: lisinopriL 10 MG TABLET PO (21:50)
[2021-09-16] MEDS: Amitriptyline HCl 10 MG TABLET PO (21:51)
[2021-09-16] MEDS: Montelukast Sodium 10 MG TABLET PO (21:52)
[2021-09-16] MEDS: Insulin Glargine,Hum.rec.anlog 100 UNIT/ML 10 ML VIAL 50 UNIT SUBCUT (21:54)
[2021-09-16] MEDS: NeoMY/Polymyx/Bacit/Ointment 14 GM Tube TOPICAL (23:03)
[2021-09-17] VITALS (10 sets, daily range): BP systolic 136–180; BP diastolic 77–99; PULSE 72–108; RESP 16–24; TEMP 36–36.4; O2SAT 84–95
[2021-09-17] MEDS: Heparin Sodium,Porcine 5,000 UNIT/ML VIAL 5000 UNIT SUBCUT ×3 (00:43→17:07)
[2021-09-17] MEDS: Piperacillin Sodium/Tazobactam 3.375 GM in 0.9 % Sodium Chloride 50 ML IV ×2 (00:43→06:19)
[2021-09-17] MEDS: traMADoL HCL 50 MG TABLET PO ×3 (00:47→20:55)
[2021-09-17 05:53] LABS: Hematocrit 37.4 % (37.0-47.0); Mean Corpuscular HGB Conc 32.1 g/dl (31.0-35.0); Mean Corpuscular Hemoglobin 28.3 pg (27.0-33.0); Mean Corpuscular Volume 88.2 fL (80.0-98.0); NRBC Pct Auto 1.7 /100WBC (0.0-0.2); Platelet Count 266 X10*3/uL (160-400); Red Blood Count 4.24 X10*6/uL (4.20-5.50); Red Cell Distribution Width 14.4 % (11.0-16.0); White Blood Count 7.6 X10*3/uL (4.8-10.8)
[2021-09-17] MEDS: Levothyroxine Sodium 175 MCG TABLET PO (06:18)
[2021-09-17] MEDS: methylPREDNISolone Sod Succ 40 MG/ML VIAL IVPUSH (06:19)
[2021-09-17 06:28] LABS: Anion Gap 13 (12-20); Blood Urea Nitrogen 23 mg/dL (9-16); Calcium 9.1 mg/dL (8.4-10.2); Carbon Dioxide 38 mmol/L (22-29); Chloride 85 mmol/L (96-108); Creatinine Clr Calc Pharmacy 102.8; Estimated Glomerular Filt Rate 50; Glucose Random 394 mg/dL (60-115); Potassium 5.7 mmol/L (3.3-5.1); Sodium 130 mmol/L (135-145)
--- NOTE | 2021-09-17 07:12 | HE.PHANOTE ---
SINTIA VIRK Continue current dose, trough due at 1900
[2021-09-17] MEDS: Albuterol/Iprat 2.5/0.5MG 3 ML AMPUL.NEB INHALE ×4 (07:32→20:45)
[2021-09-17 07:45] LABS: Glucose, Whole Blood 429 mg/dL (60-115)
[2021-09-17] MEDS: Lidocaine 4 % Patch ADH..PATCH 1 PATCH TRANSDERMA (08:35)
[2021-09-17] MEDS: Lurasidone HCl 20 MG TABLET 60 MG PO (08:36)
[2021-09-17] MEDS: Furosemide 40 MG TABLET PO (08:36)
[2021-09-17] MEDS: Atorvastatin Calcium 20 MG TABLET PO (08:36)
[2021-09-17] MEDS: Multivitamin TABLET 1 TAB PO (08:36)
[2021-09-17] MEDS: Folic Acid 1 MG TABLET PO (08:36)
[2021-09-17] MEDS: Cholecalciferol (Vitamin D3) 25 MCG TABLET 50 MCG PO (08:36)
[2021-09-17] MEDS: Benzonatate 100 MG CAPSULE 200 MG PO ×3 (08:37→20:40)
[2021-09-17] MEDS: Insulin Lispro 100 UNIT/ML 3 ML VIAL SUBCUT ×5 (08:37→20:42)
[2021-09-17] MEDS: Insulin Glargine,Hum.rec.anlog 100 UNIT/ML 10 ML VIAL 10 UNIT SUBCUT (08:38)
[2021-09-17] MEDS: NeoMY/Polymyx/Bacit/Ointment 14 GM Tube TOPICAL (08:39)
[2021-09-17] MEDS: vancomycin HCL 1,000 MG in 0.9 % Sodium Chloride 250 ML 270 MG IV (08:39)
--- NOTE | 2021-09-17 09:53 | P.PNPL_ITS ---
Subjective Subjective Date of Service: 09/17/21 Interval history: The patient was seen on exam. Clinically the patient does feel better. She is currently on 4 L nasal cannula. Her chest discomfort is improved. Unfortunately her chest x-ray that she had yesterday appear to be with interval worsening airspace disease. No evidence of any pleural effusions. She did uses CPAP last night with a pressure of 12-20. Her AHI was down to 2 which is reassuring. She is doing well on the 4 L. the patient would like to go home. Objective Data Labs CBC & Chem 7: 09/17/21 05:20 09/17/21 05:20 Labs: Laboratory Results - last 24 hr 09/16/21 09/16/21 09/16/21 13:08 18:58 19:30 WBC RBC Hgb Hct MCV MCH MCHC RDW Plt Count MPV Absolute Nucleated RBC Nucleated RBC % (auto) Sodium Potassium Chloride Carbon Dioxide Anion Gap BUN Creatinine Estim Creat Clear Calc Estimated GFR POC Glucose 431 H* 440 H* Random Glucose Calcium Vancomycin Trough 11.9 09/16/21 09/17/21 09/17/21 21:12 05:20 05:20 WBC 7.6 RBC 4.24 Hgb 12.0 Hct 37.4 MCV 88.2 MCH 28.3 MCHC 32.1 RDW 14.4 Plt Count 266 MPV 12.0 Absolute Nucleated RBC 0.130 H Nucleated RBC % (auto) 1.7 H Sodium Potassium Chloride Carbon Dioxide Anion Gap BUN Creatinine Cancelled Estim Creat Clear Calc Cancelled Estimated GFR Cancelled POC Glucose 446 H* Random Glucose Calcium Vancomycin Trough 09/17/21 09/17/21 05:20 07:27 WBC RBC Hgb Hct MCV MCH MCHC RDW Plt Count MPV Absolute Nucleated RBC Nucleated RBC % (auto) Sodium 130 L Potassium 5.7 H Chloride 85 L Carbon Dioxide 38 H Anion Gap 13 BUN 23 H Creatinine 1.15 Estim Creat Clear Calc 102.8 Estimated GFR 50 POC Glucose 429 H* Random Glucose 394 H* Calcium 9.1 D Vancomycin Trough Microbiology Microbiology Results: Microbiology 09/15/21 04:47 Blood - Venous Blood Culture - Preliminary No growth after 48 hours. 09/15/21 04:47 Blood - Venous Blood Culture - Preliminary No growth after 48 hours. 09/15/21 00:54 Blood - Venous Blood Culture - Final 09/15/21 00:54 Blood - Venous Blood Culture - Final Review of Systems Review of Systems Constitutional: No Fever, No Chills ENT/Mouth: No sore throat, No Rhinorrhea, No Swallowing Difficulty Eyes: No Eye Pain, No Swelling, No Redness Cardiovascular: + Chest Pain, + SOB, + Orthopnea, + Edema Respiratory: + Cough, No Sputum, No Wheezing, + dyspnea Gastrointestinal: No Nausea, No Vomiting, No Diarrhea, No abdominal Pain Genitourinary: No Dysuria, No Urinary Frequency, No Hematuria Musculoskeletal: No joint pain, No Myalgias Skin: No Skin Lesions, No rash Neuro: No Weakness, No Numbness, No Dizziness, No Headache Psych:+ Anxiety/Panic, No Depression Heme/Lymph: No Bruising, No Lymphadenopathy Endocrine: No Polyuria, No Polydipsia Physical Exam Vital Signs: Vital Signs: Last Vital Signs Temp 97.5 F 09/17/21 07:23 Pulse 72 09/17/21 07:35 Resp 23 H 09/17/21 07:35 BP 146/95 H 09/17/21 07:23 Pulse Ox 95 09/17/21 07:23 O2 Del Method 09/17/21 07:23 O2 Flow Rate 6 09/17/21 07:23 Oxygen Flow Rate 4 09/14/21 22:56 BMI result Body Mass Index 67.3 Const: Other: Constitutional : Alert, interactive, morbidly obese, not in distress Neck : Normal inspection, Supple Cardiovascular : RRR, no JVP, no lower extremity edema Respiratory : decreased bilateral air entry, no crackles, bilateral scattered wheezes Gastrointestinal: soft, lax, Normal bowel sounds, Non tender Skin : Warm, Dry Neurological : Alert & oriented x3, No focal deficit , CN 2-12 within normal Procedures Date of Service Date of Service: 09/17/21 Assessment and Plan Assessment and plan (1) MORGAN on CPAP: Status: Acute (2) Acute and chronic respiratory failure with hypoxia: Status: Acute (3) Pneumonia: Status: Acute (4) Mild bibasilar atelectasis: Status: Acute Plan Okay to switch to p.o. antibiotics, Augmentin and doxycycline to complete a total 14 day course Continue oxygen supplementation to maintain a pulse ox above 90% Continue respiratory therapy Continue CPAP at night pressures 12-20 In view of the patient's worsening chest x-ray she will benefit from additional day of IV antibiotics. If however she is reluctant to stay and she would like to go home then she can go home on oral antibiotics and will need a oxygen evaluation for oxygen set up at home the patient will also be set up with an ou tpatient pulmonary follow-up. Time Spent With Patient Time: Total time spent is greater than 50% in coordination of care (as documented) at patient's floor/unit and/or counseling patient: Progress Note: Quality Stroke Does the patient have a stroke diagnosis?: No
[2021-09-17] MEDS: hydrOXYzine HCL 50 MG TABLET PO (10:38)
[2021-09-17 11:53] LABS: Glucose, Whole Blood 476 mg/dL (60-115)
--- NOTE | 2021-09-17 12:18 | P.PNIM_ITS ---
Subjective Subjective Date of Service: 09/17/21 Interval History: the patient was seen and evaluated this morning Laying in bed, feels significant improvement still having significant cough and requiring oxygen supplement Denies any fever, chills or chest pain No reported other overnight events. Systemic review: No fever, chills or weakness No chest pain, palpitation reporting cough and dyspnea with ambulation No abdominal pain, nausea or vomiting No urinary symptoms No any rash or wounds Physical Exam Vital Signs: Vital Signs: Last Vital Signs Temp 97.3 F 09/17/21 11:24 Pulse 87 09/17/21 11:24 Resp 16 09/17/21 11:24 BP 180/97 H 09/17/21 11:24 Pulse Ox 93 09/17/21 11:24 O2 Del Method 09/17/21 11:24 O2 Flow Rate 6 09/17/21 11:24 Oxygen Flow Rate 4 09/14/21 22:56 BMI result Body Mass Index 67.3 Const: Other: Constitutional : Alert, interactive, morbidly obese, not in distress Neck : Normal inspection, Supple Cardiovascular : RRR, no JVP, no lower extremity edema Respiratory : improved but still decreased bilateral air entry, no crackles, bilateral scattered wheezes, oxygen supplement Gastrointestinal: soft, lax, Normal bowel sounds, Non tender Skin : Warm, Dry Neurological : Alert & oriented x3, No focal deficit , CN 2-12 within normal Objective Data Active Medications Acetaminophen (Acetaminophen 325 Mg Tablet) 650 mg PO Q6H PRN PRN Reason: Pain, Mild (Pain Scale 1-3) Last Admin: 09/16/21 15:13 Dose: 650 mg Documented By: YARED Albuterol/Ipratropium (Albuterol/Iprat 2.5/0.5mg 3 Ml Ampul.Neb) 3 ml INHALE Q4H PRN PRN Reason: Shortness of Breath/Wheezing Albuterol/Ipratropium (Albuterol/Iprat 2.5/0.5mg 3 Ml Ampul.Neb) 3 ml INHALE RQ4H WHILE AWAKE [facility] Last Admin: 09/17/21 07:32 Dose: 3 ml Documented By: KETAN Amitriptyline HCl (Amitriptyline Hcl 10 Mg Tablet) 10 mg PO BEDTIME [facility] Last Admin: 09/16/21 21:51 Dose: 10 mg Documented By: BERNARDO Atenolol (Atenolol 50 Mg Tablet) 50 mg PO DAILY@1200 [facility]; Protocol Last Admin: 09/16/21 13:54 Dose: 50 mg Documented By: YARED Atorvastatin Calcium (Atorvastatin Calcium 20 Mg Tablet) 20 mg PO DAILY [facility] Last Admin: 09/17/21 08:36 Dose: 20 mg Documented By: JOSÉ MIGUEL Benzonatate (Benzonatate 100 Mg Capsule) 200 mg PO TID [facility] Last Admin: 09/17/21 08:37 Dose: 200 mg Documented By: JOSÉ MIGUEL Benztropine Mesylate (Benztropine Mesylate 1 Mg Tablet) 1 mg PO BID@1200,2100 [facility] Last Admin: 09/16/21 21:50 Dose: 1 mg Documented By: BERNARDO Divalproex Sodium (Divalproex Sodium 500 Mg Tablet.Dr) 500 mg PO DAILY@1200 [facility] Last Admin: 09/16/21 13:55 Dose: 500 mg Documented By: YARED Divalproex Sodium (Divalproex Sodium Er 500 Mg Tab.Er.24h) 1,000 mg PO BEDTIME [facility] Last Admin: 09/16/21 21:51 Dose: 1,000 mg Documented By: BERNARDO Docusate Sodium (Docusate Sodium 100 Mg Capsule) 100 mg PO DAILY PRN PRN Reason: Constipation Folic Acid (Folic Acid 1 Mg Tablet) 1 mg PO DAILY [facility] Last Admin: 09/17/21 08:36 Dose: 1 mg Documented By: JOSÉ MIGUEL Furosemide (Furosemide 40 Mg Tablet) 40 mg PO DAILY [facility]; Protocol Last Admin: 09/17/21 08:36 Dose: 40 mg Documented By: JOSÉ MIGUEL Heparin Sodium (Porcine) (Heparin Sodium,Porcine 5,000 Unit/Ml Vial) 5,000 unit SUBCUT Q8H [facility] Last Admin: 09/17/21 08:38 Dose: 5,000 unit Documented By: JOSÉ MIGUEL Hydroxyzine HCl (Hydroxyzine Hcl 50 Mg Tablet) 50 mg PO TID PRN PRN Reason: Anxiety Last Admin: 09/17/21 10:38 Dose: 50 mg Documented By: JOSÉ MIGUEL Piperacillin Sod/Tazobactam (Sod 3.375 gm/ Sodium Chloride) 50 mls @ 100 mls/hr IV Q6H [facility] Last Infusion: 09/17/21 07:40 Dose: 0 mls/hr Documented By: JOSÉ MIGUEL Vancomycin HCl 1,000 mg/ (Sodium Chloride) 270 mls @ 270 mls/hr IV Q12H [facility] Last Infusion: 09/17/21 12:03 Dose: 0 mls/hr Documented By: JOSÉ MIGUEL Insulin Glargine (Insulin Glargine,Hum.Rec.Anlog 100 Unit/Ml 10 Ml Vial) 60 unit SUBCUT BEDTIME SHARI Insulin Human Lispro (Insulin Lispro 100 Unit/Ml 3 Ml Vial) 0 unit SUBCUT QIDACHS [facility]; Protocol Last Admin: 09/17/21 08:37 Dose: 10 unit Documented By: JOSÉ MIGUEL Levothyroxine Sodium (Levothyroxine Sodium 175 Mcg Tablet) 175 mcg PO DAILY@0630 [facility] Last Admin: 09/17/21 06:18 Dose: 175 mcg Documented By: BERNARDO Lidocaine (Lidocaine 4 % Patch Adh..Patch) 1 patch TRANSDERMA DAILY [facility] Last Admin: 09/17/21 08:35 Dose: 1 patch Documented By: JOSÉ MIGUEL Lisinopril (Lisinopril 10 Mg Tablet) 10 mg PO BEDTIME [facility]; Protocol Last Admin: 09/16/21 21:50 Dose: 10 mg Documented By: BERNARDO Lurasidone HCl (Lurasidone Hcl 20 Mg Tablet) 60 mg PO DAILY [facility] Last Admin: 09/17/21 08:36 Dose: 60 mg Documented By: JOSÉ MIGUEL Methylprednisolone Sodium Succinate (Methylprednisolone Sod Succ 40 Mg/Ml Vial) 40 mg IVPUSH Q12H [facility] Last Admin: 09/17/21 06:19 Dose: 40 mg Documented By: BERNARDO Montelukast Sodium (Montelukast Sodium 10 Mg Tablet) 10 mg PO BEDTIME [facility] Last Admin: 09/16/21 21:52 Dose: 10 mg Documented By: BERNARDO Multivitamins/Vitamin C (Multivitamin Tablet) 1 tab PO DAILY [facility] Last Admin: 09/17/21 08:36 Dose: 1 tab Documented By: JOSÉ MIGUEL Neomycin/Polymyxin/Bacitracin (Neomy/Polymyx/Bacit/Ointment 14 Gm Tube) 1 gm TOPICAL BID [facility] Last Admin: 09/17/21 08:39 Dose: 1 gm Documented By: JOSÉ MIGUEL Nicotine (Nicotine 14 Mg Patch.Td24) 14 mg TRANSDERMA DAILY [facility] Ondansetron HCl (Ondansetron Hcl 4 Mg/2 Ml Vial) 4 mg IVPUSH Q8H PRN PRN Reason: Nausea and Vomiting Pharmacy Consult (Consult Rx Vancomycin Dosing) 1 each MISCELLANE DAILY PRN PRN Reason: Consult order Prazosin HCl (Prazosin Hcl 5 Mg Capsule) 5 mg PO BEDTIME [facility]; Protocol Last Admin: 09/16/21 21:48 Dose: 5 mg Documented By: BERNARDO Quetiapine Fumarate (Quetiapine Fumarate 25 Mg Tablet) 25 mg PO BID PRN PRN Reason: anxiety Last Admin: 09/16/21 01:10 Dose: 25 mg Documented By: TA Quetiapine Fumarate (Quetiapine Fumarate 400 Mg Tablet) 400 mg PO BEDTIME [facility] Last Admin: 09/16/21 21:50 Dose: 400 mg Documented By: BERNARDO Sumatriptan Succinate (Sumatriptan Succinate 50 Mg Tablet) 50 mg PO DAILY PRN PRN Reason: Migraine Headache Thiamine HCl (Thiamine Hcl 100 Mg Tablet) 100 mg PO DAILY@1200 [facility] Last Admin: 09/16/21 13:54 Dose: 100 mg Documented By: YARED Tiotropium [place] (Tiotropium [place] 18 Mcg Cap.W.Dev) 1 puff INHALE RDAILY [facility] Last Admin: 09/17/21 09:09 Dose: 1 puff Documented By: KETAN Tramadol HCl (Tramadol Hcl 50 Mg Tablet) 50 mg PO Q6H PRN PRN Reason: Pain, Severe (Pain Scale 7-10) Last Admin: 09/17/21 10:38 Dose: 50 mg Documented By: JOSÉ MIGUEL Vitamin D (Cholecalciferol (Vitamin D3) 25 Mcg Tablet) 50 mcg PO DAILY [facility] Last Admin: 09/17/21 08:36 Dose: 50 mcg Documented By: JOSÉ MIGUEL Labs CBC & Chem 7: 09/17/21 05:20 09/17/21 05:20 Labs: Laboratory Results - last 24 hr 09/16/21 09/16/21 09/16/21 13:08 18:58 19:30 MCV MCH MCHC RDW Plt Count MPV Absolute Nucleated RBC Nucleated RBC % (auto) Anion Gap Estim Creat Clear Calc Estimated GFR POC Glucose 431 H* 440 H* Random Glucose Calcium Vancomycin Trough 11.9 09/16/21 09/17/21 09/17/21 21:12 05:20 05:20 MCV 88.2 MCH 28.3 MCHC 32.1 RDW 14.4 Plt Count 266 MPV 12.0 Absolute Nucleated RBC 0.130 H Nucleated RBC % (auto) 1.7 H Anion Gap Estim Creat Clear Calc Cancelled Estimated GFR Cancelled POC Glucose 446 H* Random Glucose Calcium Vancomycin Trough 09/17/21 09/17/21 09/17/21 05:20 07:27 11:22 MCV MCH MCHC RDW Plt Count MPV Absolute Nucleated RBC Nucleated RBC % (auto) Anion Gap 13 Estim Creat Clear Calc 102.8 Estimated GFR 50 POC Glucose 429 H* 476 H* Random Glucose 394 H* Calcium 9.1 D Vancomycin Trough Microbiology Microbiology Results: Microbiology 09/15/21 04:47 Blood Culture - Preliminary Blood - Venous No growth after 48 hours. 09/15/21 04:47 Blood Culture - Preliminary Blood - Venous No growth after 48 hours. Assessment and Plan (1) MORGAN on CPAP: Status: Acute (2) Acute and chronic respiratory failure with hypoxia: Status: Acute (3) Pneumonia: Status: Acute Plan 51-year-old female with past medical history of chronic respiratory failure, on BiPAP at night as well as supposed to be discharged on oxygen presents to the hospital with complaints of worsening shortness of breath found to have worsening pneumonia # acute on chronic hypoxic respiratory failure # pneumonia continue O2 supplement as required worsening infiltrate on chest x-ray at admission DC broad-spectrum IV antibiotic, changed to p.o. Augmentin and doxycycline follow cultures, negative for now pulmonology input appreciated overnight pulse oximetry done , will be discharged on home oxygen # restrictive lung disease, hypoventilation syndrome BiPAP at bedtime as well as 2-3 hrs intermittently duering the day continue nebulizers DC IV steroids , start p.o. prednisone # Hyperglycemia secondary to DM LDSSI increase Lantus insulin to 60 units at bedtime diabetic diet # Hyperkalemia Potassium of 5.7 Give Kayexalate and repeat BMP # hypertension continue home meds DVT ppx: heparin subq Given the acute hypoxic respiratory failure as well as worsening pneumonia patient required Overnight hospital stay continue wean down oxygen prevent possible decompensation Quality Stroke Does the patient have a stroke diagnosis?: No VTE Prior VTE?: No VTE Risk Level:: Medical - moderate - high VTE Device Contraindication: Treatment Not Indicated VTE Drug Contraindication: N/A - Med Ordered
[2021-09-17] MEDS: Furosemide 40 MG/4 ML VIAL IVPUSH (13:02)
[2021-09-17] MEDS: Sodium Polystyrene Sulfon/Sorb 15 GM/60 ML ORAL.SUSP 30 GM PO (13:03)
[2021-09-17] MEDS: Nicotine 14 MG PATCH.TD24 TRANSDERMA (13:03)
[2021-09-17] MEDS: Insulin Lispro 100 UNIT/ML 3 ML VIAL 10 UNIT SUBCUT ×2 (13:05→17:07)
[2021-09-17] MEDS: Benztropine Mesylate 1 MG TABLET PO ×2 (13:07→20:41)
[2021-09-17] MEDS: atenoloL 50 MG TABLET PO (13:07)
[2021-09-17] MEDS: Thiamine HCL 100 MG TABLET PO (13:07)
[2021-09-17] MEDS: Divalproex Sodium 500 MG TABLET.DR PO (13:07)
--- NOTE | 2021-09-17 13:45 | MHC.CM.PN ---
PATIENT IS EXPECTED TO RETURN HOME Monday09/18/21 WITH [employer] RESUMPTION AND RESUMPTION OF [facility]. HOME O2 EVAL COMPLETED AND ARRANGED
[2021-09-17 16:28] LABS: Glucose, Whole Blood 433 mg/dL (60-115)
[2021-09-17] MEDS: Sodium Zirconium Cyclosilicate 5 GM POWD.PACK PO (17:06)
[2021-09-17 18:17] LABS: Vancomycin Trough 15.9 mcg/mL (10.0-20.0)
[2021-09-17] MEDS: Divalproex Sodium ER 500 MG TAB.ER.24H 1000 MG PO (20:40)
[2021-09-17] MEDS: Amitriptyline HCl 10 MG TABLET PO (20:40)
[2021-09-17] MEDS: Amoxicillin/Potassium Clav 875 MG TABLET PO (20:40)
[2021-09-17] MEDS: lisinopriL 10 MG TABLET PO (20:40)
[2021-09-17] MEDS: Montelukast Sodium 10 MG TABLET PO (20:40)
[2021-09-17] MEDS: Azithromycin 500 MG TABLET PO (20:41)
[2021-09-17] MEDS: QUEtiapine Fumarate 400 MG TABLET PO (20:41)
[2021-09-17] MEDS: Insulin Glargine,Hum.rec.anlog 100 UNIT/ML 10 ML VIAL 60 UNIT SUBCUT (20:41)
[2021-09-17] MEDS: Prazosin HCL 5 MG CAPSULE PO (20:41)
[2021-09-17 21:03] LABS: Glucose, Whole Blood 344 mg/dL (60-115)
[2021-09-18] VITALS: BP 127/75; PULSE 81; RESP 16; TEMP 36.2; O2SAT 93
[2021-09-18] MEDS: Heparin Sodium,Porcine 5,000 UNIT/ML VIAL 5000 UNIT SUBCUT ×2 (02:59→08:24)
[2021-09-18 03:53] VITALS: BP 140/87; PULSE 83; RESP 18; TEMP 36.3; O2SAT 92
[2021-09-18] MEDS: Levothyroxine Sodium 175 MCG TABLET PO (06:19)
[2021-09-18 07:38] LABS: Glucose, Whole Blood 301 mg/dL (60-115)
[2021-09-18 07:40] LABS: Anion Gap 12 (12-20); Blood Urea Nitrogen 22 mg/dL (9-16); Calcium 9.2 mg/dL (8.4-10.2); Carbon Dioxide 41 mmol/L (22-29); Chloride 82 mmol/L (96-108); Creatinine Clr Calc Pharmacy 119.3; Estimated Glomerular Filt Rate 59; Glucose Random 323 mg/dL (60-115); Sodium 131 mmol/L (135-145)
[2021-09-18 07:58] VITALS: BP 125/81; PULSE 90; RESP 18; TEMP 36.3; O2SAT 96
[2021-09-18] MEDS: Furosemide 40 MG TABLET PO (08:08)
[2021-09-18] MEDS: Cholecalciferol (Vitamin D3) 25 MCG TABLET 50 MCG PO (08:08)
[2021-09-18] MEDS: predniSONE 20 MG TABLET 40 MG PO (08:08)
[2021-09-18] MEDS: Benzonatate 100 MG CAPSULE 200 MG PO (08:08)
[2021-09-18] MEDS: Multivitamin TABLET 1 TAB PO (08:09)
[2021-09-18] MEDS: Folic Acid 1 MG TABLET PO (08:09)
[2021-09-18] MEDS: Lurasidone HCl 20 MG TABLET 60 MG PO (08:09)
[2021-09-18] MEDS: Atorvastatin Calcium 20 MG TABLET PO (08:10)
[2021-09-18] MEDS: Insulin Lispro 100 UNIT/ML 3 ML VIAL SUBCUT ×2 (08:10→11:46)
[2021-09-18] MEDS: Amoxicillin/Potassium Clav 875 MG TABLET PO (08:10)
[2021-09-18] MEDS: Nicotine 14 MG PATCH.TD24 TRANSDERMA (08:11)
[2021-09-18] MEDS: Lidocaine 4 % Patch ADH..PATCH 1 PATCH TRANSDERMA (08:18)
[2021-09-18] MEDS: NeoMY/Polymyx/Bacit/Ointment 14 GM Tube TOPICAL (08:20)
[2021-09-18] MEDS: traMADoL HCL 50 MG TABLET PO (08:23)
[2021-09-18 08:27] VITALS: PULSE 80; RESP 16; O2SAT 92
[2021-09-18] MEDS: Albuterol/Iprat 2.5/0.5MG 3 ML AMPUL.NEB INHALE ×2 (08:27→11:50)
[2021-09-18] MEDS: acetaZOLAMIDE 250 MG TABLET PO (09:04)
--- NOTE | 2021-09-18 09:37 | MHC.CM.PN ---
CM CONTACTED [facility] AT 9:30AM [phone] TO LET THEM KNOW OF PT'S ANTIC D/C TODAY THEY DO NOT RESPOND VIA [facility] ADN OFFICE IS CLOSED UNTIL MONDAY. ANSWERING SERVICE/PER SON WHO ANSWERED THE PHONE WILL LET A NURSE KNOW. ANTIC D/C TODAY W/RESUMP OF [facility] [employer] [facility] AND [facility], PT'S S.O. WILL BRING PT'S SCOOTER FOR TRANSPORT
[2021-09-18 09:43] LABS: Adenovirus PCR Not Detected (Not Detect.); Bordetella parapertussis PCR Not Detected (Not Detect.); Bordetella pertussis PCR Not Detected (Not Detect.); Chlamydia pneumoniae PCR Not Detected (Not Detect.); Coronavirus 229E PCR Not Detected (Not Detect.); Coronavirus HKU1 PCR Not Detected (Not Detect.); Coronavirus NL63 PCR Not Detected (Not Detect.); Coronavirus OC43 PCR Not Detected (Not Detect.); Human metapneumovirus PCR Not Detected (Not Detect.); Influenza A PCR Not Detected (Not Detect.); Influenza B PCR Not Detected (Not Detect.); Mycoplasma pneumoniae PCR Not Detected (Not Detect.); Parainfluenza 1 PCR Not Detected (Not Detect.); Parainfluenza 2 PCR Not Detected (Not Detect.); Parainfluenza 3 PCR Not Detected (Not Detect.); Parainfluenza 4 PCR Not Detected (Not Detect.); RSV PCR Not Detected (Not Detect.); Rhino/Enterovirus PCR Not Detected (Not Detect.); SARS-CoV-2 PCR Not Detected (Not Detect.)
[2021-09-18] MEDS: Divalproex Sodium 500 MG TABLET.DR PO (11:04)
[2021-09-18] MEDS: Thiamine HCL 100 MG TABLET PO (11:04)
[2021-09-18] MEDS: Furosemide 40 MG/4 ML VIAL IVPUSH (11:04)
[2021-09-18] MEDS: atenoloL 50 MG TABLET PO (11:04)
[2021-09-18] MEDS: Benztropine Mesylate 1 MG TABLET PO (11:04)
[2021-09-18 11:28] LABS: Glucose, Whole Blood 413 mg/dL (60-115)
--- NOTE | 2021-09-18 11:41 | P.F2F_ITS ---
Service Date Service Date: 09/18/21 Encounter Date of encounter: 09/18/21 Reasons for Services Signs and symptoms assessed: Respiratory failure with new oxygen at home Reason for penitentiary: teach disease management Reason for physical therapy: home safety and mobility Homebound: Leaving the home is medically contraindicated at this time without the asist of a device and/or another person due th the listed conditions above and below. Reason homebound: shortness of breath with minimal effort Certification: Based on the above findings, I certify that this patient is confined to the home and needs intermittent penitentiary care, physical therapy and/or speech therapy, or continues to need occupational therapy. The patient is under my care, and I have initiated the establishment of the plan of care. The patient will be followed by a physician who will periodically review the plan of care.
--- NOTE | 2021-09-18 11:42 | PM.DS ---
DS: Providers Provider Date of Service: 09/18/21 Date of admission: 09/15/21 00:55 Primary care physician: Unknown Physician Consults: 09/15/21 07:55 Consult to Pulmonology Routine Consulting Provider: Jacob Morrow Reason for consultation: recurrent respiratory failure, DS: Diagnosis Discharge Diagnosis (1) MORGAN on CPAP: Status: Acute (2) Acute and chronic respiratory failure with hypoxia: Status: Acute (3) Pneumonia: Status: Acute (4) Mild bibasilar atelectasis: Status: Acute (5) Smoker: Status: Acute DS: Summary Hospital Course Hospital Course: admission note HPI This is a 51-year-old female with past medical history of hypertension hyperlipidemia, diabetes, morbid obesity, COPD/restrictive lung disease on CPAP, MORGAN, schizoaffective disorder, hypothyroidism, PTSD, among others who presents to the hospital stating worsening shortness of breath.? Patient was discharged from the hospital on 09/11 after being treated for hypoxic respiratory failure secondary to hypoventilation/severe restrictive lung disease,? As well as pneumonia.? She required oxygen during the hospital stay but was able to be weaned down to 2 L, she was seen by pulmonology who recommended using BiPAP at night as well as for few hours during the day, and was supposed to be sent home on oxygen.? Patient reports that she never got her oxygen at home and since being discharged from the hospital she did not feel any better and has been feeling progressively worse.? Patient reports increased shortness of breath, cough, as well as sputum production, she has chills, no fever, no chest pain, no abdominal pain nausea or vomiting, no diarrhea constipation, no urinary symptoms and no lower extremity edema. Goes to the ED patient was noted to be hypoxic on her BiPAP machine satting down to mid 80s.? She is currently on 4 L of oxygen satting 88% Labs are significant for WBC count of 10, hemoglobin of 12.2, medical 38.1, pH of 7.40, pCO2 of 68, sodium 134, chloride of 87, creatinine of 1.45 with 1 on previous admission, lactic acid of 2.8, BNP of 172, Chest x-ray reveals worsening multifocal pulmonary infiltrates right greater than left Patient will be admitted for further management Hospital course The patient was admitted to the hospital for treatment of acute on chronic hypoxic respiratory failure secondary to worsening pneumonia per chest images. Started on broad-spectrum IV antibiotics and oxygen supplement as the blood cultures remain negative. Evaluated by pulmonology team who recommended to continue antibiotics at time of discharge and to follow-up as outpatient in clinic. She was evaluated for home oxygen and will need 5 L with CPAP at bedtime and up to 10 L upon ambulation. She received IV Lasix for fluid overload in her lower extremities with good response. With increase her home Lasix at time of discharge. Noticed to have hyperkalemia that was corrected with usage of Kayexalate and Lokelma. Had elevated blood sugar level secondary to diabetes and being on steroids. Required more than her usual dose of insulin during the hospital stay. Will be discharged on 1 more week of oral antibiotics, 3 more days of prednisone and nicotine supplement as she was advised to quit smoking. Continue azithromycin and Augmentin as prescribed Finished prednisone as prescribed Use oxygen during the day and nighttime with CPAP Wean down oxygen as tolerated We advise you to quit smoking completely. Nicotine patches and gums prescribed. To follow-up with pulmonology as outpatient. Time Spent with Patient Time attestation: Total time spent providing and/or coordinating discharge services: Discharge coordination time: Greater than 30 minutes Quality: Safe Use of Opioids Does Pt have an Active Cancer Diagnosis on the Problem List?: No Quality: Stroke Does the patient have a stroke diagnosis?: No Physical Exam Vital Signs: Vital Signs: Last Vital Signs Temp 97.4 F 09/18/21 07:58 Pulse 80 09/18/21 08:27 Resp 16 09/18/21 08:27 BP 125/81 09/18/21 07:58 Pulse Ox 96 09/18/21 07:58 O2 Del Method 09/18/21 07:58 O2 Flow Rate 6 09/18/21 07:58 Oxygen Flow Rate 4 09/14/21 22:56 BMI result Body Mass Index 67.3 Const: Other: Constitutional : Alert, interactive, morbidly obese, not in distress Neck : Normal inspection, Supple Cardiovascular : RRR, no JVP, no lower extremity edema Respiratory : fair but overall decreased bilateral air entry, no crackles, Improved bilateral scattered wheezes, oxygen supplement Gastrointestinal: soft, lax, Normal bowel sounds, Non tender Skin : Warm, Dry Neurological : Alert & oriented x3, No focal deficit , CN 2-12 within normal DS: Data Data Completed and Pending Labs on day of discharge: Laboratory Results - last 24 hr 09/17/21 09/17/21 09/17/21 11:22 15:35 17:25 Sodium Potassium Chloride Carbon Dioxide Anion Gap BUN Creatinine Estim Creat Clear Calc Estimated GFR POC Glucose 476 H* 433 H* Random Glucose Calcium Vancomycin Trough Respiratory Panel [place] See Note Adenovirus (Rapid PCR) Not Detected B.pert (TEM-PCR) Not Detected B.parapertussis DNA PCR Not Detected C. pneumoniae DNA (PCR) Not Detected Coronavirus OC43 (PCR) Not Detected Coronavirus HKU1 (PCR) Not Detected Coronavirus 229E (PCR) Not Detected Coronavirus NL63 (PCR) Not Detected Human Metapneumovir PCR Not Detected Influenza A (RT-PCR) Not Detected Influenza B (RT-PCR) Not Detected M. pneumoniae (PCR) Not Detected Parainfluenza 1 (PCR) Not Detected Parainfluenza 2 (PCR) Not Detected Parainfluenza 3 (PCR) Not Detected Parainfluenza 4 (PCR) Not Detected RSV (PCR) Not Detected Entero/Rhino (PCR) Not Detected SARS-CoV-2 RNA (RT-PCR) Not Detected 09/17/21 09/17/21 09/18/21 17:38 20:04 06:02 Sodium 131 L Potassium 4.0 D Chloride 82 L Carbon Dioxide 41 H* Anion Gap 12 BUN 22 H Creatinine 0.99 Estim Creat Clear Calc 119.3 Estimated GFR 59 POC Glucose 344 H Random Glucose 323 H Calcium 9.2 Vancomycin Trough 15.9 Respiratory Panel [place] Adenovirus (Rapid PCR) B.pert (TEM-PCR) B.parapertussis DNA PCR C. pneumoniae DNA (PCR) Coronavirus OC43 (PCR) Coronavirus HKU1 (PCR) Coronavirus 229E (PCR) Coronavirus NL63 (PCR) Human Metapneumovir PCR Influenza A (RT-PCR) Influenza B (RT-PCR) M. pneumoniae (PCR) Parainfluenza 1 (PCR) Parainfluenza 2 (PCR) Parainfluenza 3 (PCR) Parainfluenza 4 (PCR) RSV (PCR) Entero/Rhino (PCR) SARS-CoV-2 RNA (RT-PCR) 09/18/21 09/18/21 09/18/21 06:02 07:14 11:23 Sodium Potassium Chloride Carbon Dioxide Anion Gap BUN Creatinine Cancelled Estim Creat Clear Calc Cancelled Estimated GFR Cancelled POC Glucose 301 H 413 H* Random Glucose Calcium Vancomycin Trough Respiratory Panel [place] Adenovirus (Rapid PCR) B.pert (TEM-PCR) B.parapertussis DNA PCR C. pneumoniae DNA (PCR) Coronavirus OC43 (PCR) Coronavirus HKU1 (PCR) Coronavirus 229E (PCR) Coronavirus NL63 (PCR) Human Metapneumovir PCR Influenza A (RT-PCR) Influenza B (RT-PCR) M. pneumoniae (PCR) Parainfluenza 1 (PCR) Parainfluenza 2 (PCR) Parainfluenza 3 (PCR) Parainfluenza 4 (PCR) RSV (PCR) Entero/Rhino (PCR) SARS-CoV-2 RNA (RT-PCR) Preliminary micro results at discharge 09/15/21 04:47 Blood Culture - Preliminary Blood - Venous No growth after 48 hours. 09/15/21 04:47 Blood Culture - Preliminary Blood - Venous No growth after 48 hours. Discharge Plan Discharge Patient Disposition: Home Health Service Discharge Diagnosis: hypoxic respiratory failure Pneumonia Obstructive sleep apnea Referrals: [facility] [Outside] - 1 Day (RESUMPTION OF SERVICES) Physician,Unknown J [Primary Care Provider] - 1 Week Discharge Medications: New nicotine 14 mg/24 hr Patch 24 Hour 14 mg transdermal DAILY 30 Days Qty: 28 0RF prednisone 20 mg Tablet 40 mg PO DAILY 3 Days Qty: 6 0RF benzonatate 100 mg Capsule 200 mg PO TID 7 Days Qty: 42 0RF amoxicillin-pot clavulanate 875-125 mg Tablet 875 mg PO Q12H 7 Days Qty: 13 0RF azithromycin 500 mg Tablet 500 mg PO Q24H 7 Days Qty: 7 0RF nicotine (polacrilex) 2 mg gum 2 mg buccal Q2H Qty: 50 1RF Continued (DME) Ankle Brace Misc See Rx Instructions .ROUTE .MEDSUPPLY Qty: 1 0RF Rx Instructions: AIRSELECT, STANDARD, MEDIUM tramadol 50 mg tablet 50 mg PO BID PRN (Reason: Pain) Qty: 30 0RF (DME) pen needle, diabetic [BD Ultra-Fine Mary Pen Needle] 32 gauge x 5/32 needle See Rx Instructions .ROUTE .MEDSUPPLY Qty: 125 6RF Rx Instructions: As directed four times a day multivitamin Tablet 1 tab PO DAILY atorvastatin 20 mg Tablet 20 mg PO DAILY thiamine HCl (vitamin B1) 100 mg Tablet 100 mg PO DAILY@1200 divalproex 500 mg Tablet,Delayed Release (Dr/Ec) 500 mg PO DAILY@1200 amitriptyline 10 mg Tablet 10 mg PO BEDTIME lisinopril 10 mg Tablet 10 mg PO BEDTIME benztropine 1 mg Tablet 1 mg PO BID@1200,2100 montelukast 10 mg Tablet 10 mg PO BEDTIME furosemide 40 mg tablet 1 tab PO DAILY prazosin 5 mg capsule 1 cap PO BEDTIME glimepiride 4 mg tablet 1 tab PO QPM divalproex 500 mg tablet extended release 24 hr 1,000 mg PO BEDTIME folic acid 1 mg tablet 1 tab PO QAM atenolol 50 mg tablet 50 mg PO DAILY@1200 melatonin 5 mg tablet 1 - 2 tab PO BEDTIME PRN (Reason: insomnia) Latuda 60 mg tablet 60 mg PO DAILY docusate sodium 100 mg Capsule 100 mg PO DAILY@1200 PRN (Reason: Constipation) quetiapine 400 mg tablet 400 mg PO BEDTIME quetiapine 25 mg tablet 1 tab PO BID PRN (Reason: anxiety) albuterol sulfate 2.5 mg /3 mL (0.083 %) solution for nebulization 1 amp inhalation QID alendronate 70 mg tablet 1 tab PO MO@0600 hydroxyzine HCl 50 mg tablet 1 tab PO TID PRN (Reason: Anxiety) fluticasone propionate 50 mcg/actuation spray,suspension 1 spray intranasal DAILY diclofenac sodium 1 % gel 2 g topical QID PRN (Reason: Pain) Protocol: Apply to: Apply to: KNEE, ANKLE, BACK lidocaine 5 % Adhesive Patch,Medicated 1 patch TOPICAL DAILY Protocol: Apply to: Apply to: KNEES AND BACK Rx Instructions: leave on most painful area for up to 12 hrs albuterol sulfate [ProAir HFA] 90 mcg/actuation Hfa Aerosol Inhaler 2 puff INHALATION Q4H PRN (Reason: Respiratory Distress) Triple Antibiotic Plus 3.5-500-10,000 [id number] Ointment 1 appl TOPICAL BID Protocol: Apply to: Apply to: ELBOW Tresiba FlexTouch U-200 200 unit/mL (3 mL) insulin pen 62 unit subcut BEDTIME acetaminophen 500 mg Tablet 1,000 mg PO Q6H PRN (Reason: Pain) white petrolatum Ointment 1 appl TOPICAL BID PRN (Reason: Dry Skin) sumatriptan succinate 50 mg Tablet 50 mg PO DAILY PRN (Reason: Migraine Headache) Rx Instructions: do not exceed 4 doses per 24 hrs insulin lispro [Humalog KwikPen Insulin] 100 unit/mL insulin pen 18 - 24 unit subcut TIDWM Spiriva Respimat 1.25 mcg/actuation Mist 2 puff INHALATION DAILY levothyroxine 175 mcg Tablet 175 mcg PO DAILY@0630 Qty: 30 0RF cholecalciferol (vitamin D3) 50 mcg (2,000 unit) tablet 50 mcg PO DAILY Discharge Orders: Discharge Order (Routine); Ordered 09/18/21 Ordered By: Jessica Brock Activity on Discharge: As tolerated Stand Alone Forms: Patient Portal Discharge page Care Plan Goals: Read below Health Concerns: Read below Plan of Treatment: Read below Assessment: you were admitted to the hospital for evaluation of difficulty breathing. Found to have worsening pneumonia. Treated with IV antibiotics, steroids and nebulizers with good response as you were evaluated by lung specialist Dr. Morrow who recommended an outpatient follow-up. You were evaluated for home oxygen and found to require oxygen supplement at home. That will be delivered to you today. Continue azithromycin and Augmentin as prescribed Finished prednisone as prescribed Use oxygen during the day and nighttime with CPAP Wean down oxygen as tolerated We advise you to quit smoking completely. Nicotine patches and gums prescribed. To follow-up with pulmonology as outpatient. Discharge Date/Time: 09/18/21 13:26
[2021-09-18] MEDS: Insulin Lispro 100 UNIT/ML 3 ML VIAL 10 UNIT SUBCUT (11:45)
[2021-09-18 11:52] VITALS: PULSE 84; RESP 20; TEMP 36.3; O2SAT 92
[2021-09-18 11:53] VITALS: PULSE 97; RESP 20; O2SAT 95
[2021-09-22 15:50] LABS: Strep Pneumo Ag urine Not Detected (Not Detected)
[2021-09-22 17:33] LABS: Legionella Ag Urine Not Detected (Not Detected)
== END 2021-09-18 13:26 | disposition home health service (06) | DRG 139 ==
LOC: HO.ED 09-15 00:56 → HO.EDOVER 09-15 00:59 → HO.S3 09-16 19:59
PROVIDERS: Hospitalist; Admitting Provider Internal Medicine; Emergency Provider Internal Medicine; PCP Registered Nurse; Visit Provider Student in an Organized Health Care Education/Training Program
DX: J18.9 Pneumonia, unspecified organism (principal); J96.21 Acute and chronic respiratory failure with hypoxia; E87.2 Acidosis; E66.2 Morbid (severe) obesity with alveolar hypoventilation; Z68.44 Body mass index [BMI] 60.0-69.9, adult; Z99.81 Dependence on supplemental oxygen; F43.10 Post-traumatic stress disorder, unspecified; Z91.19 Patient's noncompliance with other medical treatment and regimen; Z98.51 Tubal ligation status; F17.210 Nicotine dependence, cigarettes, uncomplicated; E78.5 Hyperlipidemia, unspecified; E03.9 Hypothyroidism, unspecified; E87.5 Hyperkalemia; E11.65 Type 2 diabetes mellitus with hyperglycemia; I10 Essential (primary) hypertension; Z71.6 Tobacco abuse counseling; Z20.822 Contact with and (suspected) exposure to COVID-19; J98.11 Atelectasis; Z91.040 Latex allergy status; Z88.5 Allergy status to narcotic agent; Z88.8 Allergy status to other drugs, medicaments and biological substances; Z79.51 Long term (current) use of inhaled steroids; Z79.4 Long term (current) use of insulin; Z79.890 Hormone replacement therapy; Z79.899 Other long term (current) drug therapy
CPT/HCPCS: 36415; 36600; 71045; 80048; 80053; 80202; 82565; 82803; 82947; 83605; 83880; 84484; 85025; 85027; 87040; 87449; 87633; 87635; 87899; 93005; 94640; 94644; 96365; 96366; 96367; 99285; J0456; J0696; J1885; J1940; J2543; J2920; J3370

== ENCOUNTER → 2021-11-11 15:08 | Outpatient (BNVA) | payer MEDICAID, SELFPAY | PROVIDERS: PCP Registered Nurse; Visit Provider Hospitalist | DX: R91.8 Other nonspecific abnormal finding of lung field (principal); J18.9 Pneumonia, unspecified organism; J96.11 Chronic respiratory failure with hypoxia; J96.12 Chronic respiratory failure with hypercapnia; J44.9 Chronic obstructive pulmonary disease, unspecified; F17.210 Nicotine dependence, cigarettes, uncomplicated; Z99.81 Dependence on supplemental oxygen | CPT/HCPCS: 99212 ==

== ENCOUNTER 2021-11-30 14:35 | Outpatient (REF) | payer MEDICAID, SELFPAY ==
--- NOTE | ~2021-11-30 | CT_ITS ---
EXAMINATION: CT CHEST WITHOUT CONTRAST CLINICAL INFORMATION: Pulmonary nodules COMPARISON: Previous chest x-ray August [address] most recent August 2021 TECHNIQUE: Multidetector volumetric CT imaging of the chest was done. Axial MIP volume rendering provided. Sagittal and coronal reformatted images were obtained. This CT examination was performed using dose optimization techniques as appropriate, variously including the following: *Automated exposure control *Adjustment of mA and/or kV according to patient size (this includes techniques or standardized protocols for targeted exams where dose is matched to indication/reason for exam; i.e. extremities or head) *Use of iterative reconstruction technique DLP: 854 mGy-cm FINDINGS: Exam is limited due to patient body habitus. LUNGS: There is volume loss to the left hemithorax with shift of the central mediastinal structures. This is similar to previous exam. There are scattered areas of ground glass attenuation and areas of atelectasis or small infiltrate seen. Largest areas are in the left upper lobe. This does not appear appreciably changed. No endobronchial or endotracheal lesion. MEDIASTINUM: The thyroid gland appears prominent. There is mild coronary artery calcification.. The heart is enlarged. No pericardial effusion. No obvious lymphadenopathy. PLEURA: There is no pleural effusion. No pleural mass or thickening. AXILLA: No lymphadenopathy. UPPER ABDOMEN: The liver appears enlarged. OSSEOUS STRUCTURES: There are degenerative changes of the spine, and shoulder joints, and mild scoliosis.. CT/CT chest wo IV con IMPRESSION: Limited exam. Volume loss to the left hemithorax and scattered areas of groundglass attenuation and denser atelectasis or small infiltrates not appreciably changed from August 2021. Enlarged thyroid gland. Fleischner guidelines were followed.
== END 2021-11-30 14:36 | disposition home or self-care (01) ==
LOC: HO.CT 14:35
PROVIDERS: PCP Nurse Practitioner Primary Care; Visit Provider Hospitalist
DX: J18.9 Pneumonia, unspecified organism (principal); R91.8 Other nonspecific abnormal finding of lung field
CPT/HCPCS: 71250

== ENCOUNTER → 2021-12-30 12:37 | Outpatient (BNVA) | payer MEDICAID, SELFPAY | PROVIDERS: PCP Registered Nurse; Visit Provider Physician Assistant | DX: E66.01 Morbid (severe) obesity due to excess calories (principal); E11.9 Type 2 diabetes mellitus without complications; I71.9 Aortic aneurysm of unspecified site, without rupture; K21.9 Gastro-esophageal reflux disease without esophagitis; K75.9 Inflammatory liver disease, unspecified; I10 Essential (primary) hypertension; G43.909 Migraine, unspecified, not intractable, without status migrainosus; I21.9 Acute myocardial infarction, unspecified; F25.9 Schizoaffective disorder, unspecified; G47.30 Sleep apnea, unspecified; J44.9 Chronic obstructive pulmonary disease, unspecified; Z99.81 Dependence on supplemental oxygen; F17.210 Nicotine dependence, cigarettes, uncomplicated; Z71.6 Tobacco abuse counseling; Z68.44 Body mass index [BMI] 60.0-69.9, adult | CPT/HCPCS: 99202 ==

== ENCOUNTER → 2022-01-14 09:21 | Outpatient (BNVA) | payer MEDICAID, SELFPAY | PROVIDERS: PCP Registered Nurse; Visit Provider Hospitalist | DX: Z23 Encounter for immunization (principal); R91.8 Other nonspecific abnormal finding of lung field; J96.11 Chronic respiratory failure with hypoxia; J96.12 Chronic respiratory failure with hypercapnia; J18.9 Pneumonia, unspecified organism; J44.9 Chronic obstructive pulmonary disease, unspecified; F17.210 Nicotine dependence, cigarettes, uncomplicated | CPT/HCPCS: 90471; 90686; 99212 ==

== ENCOUNTER 2022-02-14 | Outpatient (REF) | payer MEDICAID, SELFPAY | END 2022-02-14 00:01 | disposition home or self-care (01) | LOC: CF | PROVIDERS: Visit Provider Internal Medicine | DX: E11.65 Type 2 diabetes mellitus with hyperglycemia (principal); E78.5 Hyperlipidemia, unspecified; I10 Essential (primary) hypertension; E04.2 Nontoxic multinodular goiter; E03.9 Hypothyroidism, unspecified; Z79.899 Other long term (current) drug therapy; Z79.4 Long term (current) use of insulin | CPT/HCPCS: 82947; 99212 ==

== ENCOUNTER 2022-02-14 12:29 | Outpatient (REF) | payer MEDICAID, SELFPAY ==
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
== END 2022-02-14 12:30 | disposition home or self-care (01) ==
LOC: HO.HAP 12:29
PROVIDERS: Visit Provider General Practice
DX: Z46.1 Encounter for fitting and adjustment of hearing aid (principal); H90.3 Sensorineural hearing loss, bilateral
CPT/HCPCS: 82947; 92590; 99212

== ENCOUNTER 2022-02-15 06:28 | Outpatient (REF) | payer MEDICAID, SELFPAY ==
[2022-02-15 07:57] LABS: Cortisol Random 13.2 ug/dL
[2022-02-16 18:28] LABS: Adrenocorticotropic Hormone 32 pg/mL (6-50)
== END 2022-02-15 06:29 | disposition home or self-care (01) ==
LOC: HO.LAB 06:28
PROVIDERS: PCP Registered Nurse; Visit Provider Internal Medicine
DX: E03.9 Hypothyroidism, unspecified (principal)
CPT/HCPCS: 36415; 82024; 82533

== ENCOUNTER 2022-03-09 13:41 | Outpatient (REF) | payer MEDICAID, SELFPAY ==
--- NOTE | 2022-03-09 14:37 | MHC.AU.HA2 ---
Hearing Instrument Fitting- Adult- Binaural Date of Visit: 03/09/22 Hearing Instruments Dispensed: Left Ear: Make, Model, Color, Serial Number: Bruce Hurto P70-R Color: Silver Bennett [id number] [employer] Repair Warranty: 05/17/2025 [employer] Car[employer] Loss and Damage Warranty: 05/17/2025 [facility] Service Plan: 03/09/2023 Battery Size: Rechargeable Roto Rooter Operator/Slim Tube: 1M Earmold/Dome/CShell/SlimTip: Small vented dome Type of Wax Guard: CeruSheild Accessories/Assistive Technology: Phonak Mobile Tester Case Combi Summary of Fitting: Performed feedback account manager education and real ear measurements. Decreased overall gain level to 90% and occlusion compensation to weak due to perceived loudness. Discussed care, use, and rechargeability including manually turning on/off, volume control use, and cleaning. Explained the importance of daily, consistent use and acclimatization period. Paired to cell phone and confirmed successful connection. Recommendations: Elle reported that it is difficult for her to get to appointments and requested future appointments be remote, if possible. Gave information to download Flash Auto Detailing devorah to set up remote support. A hearing instrument follow-up was scheduled to be a remote session. Diagnosis Code(s): Primary Diagnosis: H90.3 Bilateral Sensorineural Hearing Loss Signature: Provider: Caden Del Angel, [facility]
== END 2022-03-09 13:42 | disposition home or self-care (01) ==
LOC: HO.HAP 13:41
PROVIDERS: Visit Provider Registered Nurse
DX: Z46.1 Encounter for fitting and adjustment of hearing aid (principal); H90.3 Sensorineural hearing loss, bilateral
CPT/HCPCS: V5011; V5020; V5241; V5257

== ENCOUNTER → 2022-03-25 12:40 | Outpatient (BNVA) | payer MEDICAID, SELFPAY | PROVIDERS: PCP Registered Nurse; Visit Provider Hospitalist | DX: R91.8 Other nonspecific abnormal finding of lung field (principal); J18.9 Pneumonia, unspecified organism; J44.9 Chronic obstructive pulmonary disease, unspecified; J96.11 Chronic respiratory failure with hypoxia; J96.12 Chronic respiratory failure with hypercapnia; F17.210 Nicotine dependence, cigarettes, uncomplicated | CPT/HCPCS: 99212 ==

== ENCOUNTER 2022-03-25 15:21 | Outpatient (REF) | payer MEDICAID, SELFPAY | END 2022-03-25 15:22 | disposition home or self-care (01) | LOC: HO.HAP 15:21 | PROVIDERS: Visit Provider Registered Nurse | DX: Z13.89 Encounter for screening for other disorder (principal) ==

== ENCOUNTER 2022-04-06 13:30 | Outpatient (REF) | payer MEDICAID, SELFPAY ==
--- NOTE | 2022-04-06 15:16 | MHC.AU.HA3 ---
Hearing Instrument Follow-Up- Binaural Date of Visit: 04/06/22 Left Ear: Make, Model, Color, Serial Number: Samariaak Audeo P70-R Color: Silver Bennett [id number] Layer Up Repair Warranty: 05/17/2025 Layer Up Loss and Damage Warranty: 05/17/2025 [facility] Service Plan: 03/09/2023 Battery Size: Rechargeable Employment Officer/Slim Tube: 1M Earmold/Dome/CShell/SlimTip: Small vented dome Type of Wax Guard: CeruSheild Dispensed By: [facility] Date of Fittin03/09/2022 Follow-Up Summary: Elle reported that about one week ago, the hearing aid began to sound weak. Increased acclimatization manager leasing back to 100% and turned off occlusion compensation. Elle noted significant improvement of sound quality in office. Paired hearing aid to Bix devorah and able to successfully connect to a practice remote session in office. Pawan'ed to Elle how to navigate to a remote session through the devorah for future appointments, if needed. Elle also reported a perceived change in hearing in her right ear, as speech and environmental sounds are now more muffled. Recommendations: Hearing instrument maintenance in 6 months, or sooner if needed. Recommendations (Other): Elle will obtain a doctor's order for an updated hearing test from her primary care physician due to a suspected change in hearing in her right ear. Diagnosis Code(s): Primary Diagnosis: H90.3 Bilateral Sensorineural Hearing Loss Signature: Provider: Caden Del Angel, [facility]
== END 2022-04-06 13:31 | disposition home or self-care (01) ==
LOC: HO.HAP 13:30
PROVIDERS: Visit Provider Registered Nurse
DX: Z13.89 Encounter for screening for other disorder (principal)

== ENCOUNTER → 2022-04-11 08:05 | Outpatient (BNVA) | payer MEDICAID, SELFPAY | PROVIDERS: PCP Registered Nurse; Visit Provider Registered Nurse Diabetes Educator | DX: E11.65 Type 2 diabetes mellitus with hyperglycemia (principal); Z79.4 Long term (current) use of insulin | CPT/HCPCS: 99211 ==

== ENCOUNTER → 2022-07-11 07:31 | Outpatient (BNVA) | payer MEDICAID, SELFPAY | PROVIDERS: PCP Registered Nurse; Visit Provider Internal Medicine | DX: E03.9 Hypothyroidism, unspecified (principal) | CPT/HCPCS: 36415 ==

== ENCOUNTER 2022-07-11 07:40 | Outpatient (REF) | payer MEDICAID, SELFPAY ==
[2022-07-11 11:20] LABS: Free T4 (Free Thyroxine) 0.53 ng/dL (0.71-1.85); Thyroid Stimulating Hormone 30.77 uIU/mL (0.32-4.0)
[2022-07-11 11:21] LABS: Free T4 (Free Thyroxine) 0.75 ng/dL (0.71-1.85); Thyroid Stimulating Hormone 26.91 uIU/mL (0.32-4.0)
[2022-07-11 17:29] LABS: Free T4 (Free Thyroxine) 1.01 ng/dL (0.71-1.85)
== END 2022-07-11 07:41 | disposition home or self-care (01) ==
LOC: HO.10HDL 07:40
PROVIDERS: Hospitalist; Nurse Practitioner Gerontology; Physician Assistant; Visit Provider Internal Medicine
DX: E66.01 Morbid (severe) obesity due to excess calories (principal); E03.9 Hypothyroidism, unspecified; E04.2 Nontoxic multinodular goiter; E11.9 Type 2 diabetes mellitus without complications; J18.9 Pneumonia, unspecified organism; R91.8 Other nonspecific abnormal finding of lung field
CPT/HCPCS: 36415; 84439; 84443

== ENCOUNTER 2022-08-11 15:03 | Outpatient (REF) | payer MEDICAID, SELFPAY | END 2022-08-11 15:04 | disposition home or self-care (01) | LOC: HO.SH 15:03 | PROVIDERS: Visit Provider Registered Nurse | DX: Z01.118 Encounter for examination of ears and hearing with other abnormal findings (principal); H69.93 Unspecified Eustachian tube disorder, bilateral | CPT/HCPCS: 92567 ==

== ENCOUNTER → 2022-08-18 14:52 | Outpatient (BNVA) | payer MEDICAID, SELFPAY | PROVIDERS: PCP Registered Nurse; Visit Provider Hospitalist | DX: J44.0 Chronic obstructive pulmonary disease with (acute) lower respiratory infection (principal); J18.9 Pneumonia, unspecified organism; J96.11 Chronic respiratory failure with hypoxia; J96.12 Chronic respiratory failure with hypercapnia; R91.8 Other nonspecific abnormal finding of lung field; F17.210 Nicotine dependence, cigarettes, uncomplicated; Z99.81 Dependence on supplemental oxygen | CPT/HCPCS: 99212 ==

== ENCOUNTER 2022-09-04 10:44 | Emergency (ER) | payer MEDICAID, SELFPAY ==
--- NOTE | ~2022-09-04 | XR_ITS ---
EXAMINATION: XR CHEST CLINICAL INFORMATION: Reason for Exam chest pain COMPARISON: Chest radiograph 09/16/2021 TECHNIQUE: 2 views of the chest FINDINGS: Lines and tubes: EKG leads overlie the patient. Low lung volumes with perihilar and bibasilar consolidation with air bronchograms possibly reflective of aspiration or infection although in the setting of low lung volumes bronchovascular crowding could be a contributing factor. No pleural effusion. No pneumothorax. Normal cardiomediastinal silhouette. XR/XR chest 2V IMPRESSION: Low lung volumes with perihilar and bibasilar consolidation with air bronchograms possibly reflective of aspiration or infection although in the setting of low lung volumes bronchovascular crowding could be a contributing factor.
--- NOTE | 2022-09-04 10:49 | ECG_ITS ---
Test Reason : CHESTPAIN Blood Pressure : / mmHG Vent. Rate : 079 BPM Atrial Rate : 079 BPM P-R Int : 206 ms QRS Dur : 092 ms QT Int : 394 ms P-R-T Axes : 051 -18 054 degrees QTc Int : 451 ms Normal sinus rhythm Normal ECG When compared with ECG of 15-SEP-2021 00:08, Nonspecific T wave abnormality no longer evident in Lateral leads Referred By: Generic ED Physician Electronically Signed By:CHRISSY GALLARDO
--- NOTE | 2022-09-04 11:11 | ED_ITS ---
HPI - General Adult General Chief complaint: Headache Stated complaint: migraine, chest pain Time Seen by Provider: 09/04/22 11:08 Source: patient Mode of arrival: ambulatory Limitations: physical limitation History of Present Illness HPI narrative: Patient is a 52-year-old female with history of migraines, COPD, MORGAN on CPAP, morbid obesity, T2DM, HLD, prior DE presenting with headache, nausea, and photophobia for the past two days. Has taken her prescribed Imitrex without relief. Reports photophobia but denies double vision, blurred vision, or other vision changes. Denies abdominal pain, vomiting, constipation or diarrhea. Has not tried any OTC medications for her symptoms. Denies any falls or other t rauma. Denies syncope or dizziness. Denies neck pain or stiffness. Denies sudden onset headache, not worst at onset. Patient also reports feeling as though she is having palpitations while sleeping and then has to control her breathing after waking up to decrease sensation of palpitations. Patient wears CPAP and reports compliance with this. States she has also continued to be successful with cessation of smoking cigarettes. Denies current chest pain. MD complaint: headache Onset (ago): day(s) Location: head Radiation: non-radiation Severity: severe Pain Consistency: constant Relieving factors: none Exacerbating factors: other (lights) Associated symptoms: nausea/vomiting (reports nausea, denies vomiting) Treatments prior to arrival: other (imitrex) Related Data Home Medications Medication Instructions Recorded Confirmed amitriptyline 10 mg tablet 10 mg PO BEDTIME 01/10/20 02/14/22 benztropine 1 mg tablet 1 mg PO BID@1200,2100 01/10/20 02/14/22 divalproex 500 mg tablet,delayed 500 mg PO DAILY@1200 01/10/20 02/14/22 release lisinopril 10 mg tablet 10 mg PO BEDTIME 01/10/20 02/14/22 montelukast 10 mg tablet 10 mg PO BEDTIME 01/10/20 02/14/22 multivitamin 1 tab PO DAILY 01/10/20 02/14/22 thiamine HCl (vitamin B1) 100 mg 100 mg PO DAILY@1200 01/10/20 02/14/22 tablet atenolol 50 mg tablet 50 mg PO DAILY@1200 04/20/21 02/14/22 docusate sodium 100 mg capsule 100 mg PO DAILY@1200 PRN 04/20/21 02/14/22 Constipation folic acid 1 mg tablet 1 tab PO QAM 04/20/21 02/14/22 furosemide 40 mg tablet 1 tab PO DAILY 04/20/21 02/14/22 lurasidone 60 mg tablet (Latuda) 60 mg PO DAILY 04/20/21 02/14/22 melatonin 5 mg tablet 1 - 2 tab PO BEDTIME PRN insomnia 04/20/21 02/14/22 prazosin 5 mg capsule 1 cap PO BEDTIME 04/20/21 02/14/22 albuterol sulfate 2.5 mg/3 mL 1 amp inhalation QID 04/22/21 02/14/22 (0.083 %) solution for nebulization alendronate 70 mg tablet 1 tab PO MO@0600 04/22/21 02/14/22 diclofenac sodium 1 % topical gel 2 g topical QID PRN Pain 04/22/21 02/14/22 fluticasone propionate 50 1 spray intranasal DAILY 04/22/21 02/14/22 mcg/actuation nasal spray,suspension hydroxyzine HCl 50 mg tablet 1 tab PO TID PRN Anxiety 04/22/21 02/14/22 cholecalciferol (vitamin D3) 50 50 mcg PO DAILY 07/20/21 02/14/22 mcg (2,000 unit) tablet acetaminophen 500 mg tablet 1,000 mg PO Q6H PRN Pain 09/08/21 02/14/22 albuterol sulfate 90 mcg/actuation 2 puff inhalation Q4H PRN 09/08/21 02/14/22 aerosol inhaler (ProAir HFA) Respiratory Distress lidocaine 5 % topical patch 1 patch topical DAILY 09/08/21 02/14/22 nnhip-ksmdv-inorptd-pramoxine 3.5 1 appl topical BID 09/08/21 02/14/22 mg-500 unit-10,000 unit/g top oint (Triple Antibiotic Plus) sumatriptan succinate 50 mg tablet 50 mg PO DAILY PRN Migraine 09/08/21 02/14/22 Headache white petrolatum 1 appl topical BID PRN Dry Skin 09/08/21 02/14/22 alendronate 70 mg tablet (Fosamax) 70 mg PO QWEEK 12/30/21 02/14/22 calcium carbonate 200 mg calcium 200 mg PO TID 12/30/21 02/14/22 (500 mg) chewable tablet (Antacid (calcium carbonate)) ciprofloxacin 0.2 %-hydrocortisone 3 drp otic (ears) Q12H 12/30/21 02/14/22 1 % ear drops,suspension (Cipro HC) docusate sodium 100 mg capsule 100 mg PO DAILY 12/30/21 02/14/22 (Colace) nystatin 100,000 unit/gram topical topical BID 12/30/21 02/14/22 powder white petrolatum 41 % topical 1 appl topical DAILY PRN 12/30/21 02/14/22 ointment (Aquaphor Baby Healing) white petrolatum 42 % topical topical BID 12/30/21 02/14/22 ointment Oxygen Home Use 03/25/22 nebulizers 03/25/22 quetiapine 25 mg tablet 100 mg PO .AM PRN anxiety 08/18/22 quetiapine 400 mg tablet 600 mg PO BEDTIME 08/18/22 Previous Rx's Medication Instructions Recorded leg brace (Ankle Brace) #1 ea 01/22/20 tramadol 50 mg tablet 50 mg PO BID PRN Pain #30 tabs 07/27/21 nicotine (polacrilex) 2 mg gum 2 mg buccal Q2H #50 ea 09/18/21 nicotine 14 mg/24 hr daily 14 mg transdermal DAILY 30 days 09/18/21 transdermal patch #28 ea iron,carbonyl 65 mg-vitamin C 125 1 tab PO BEDTIME #30 tabs 02/08/22 mg tablet,delayed release (Vitron-C) varenicline 0.5 mg (11)-1 mg (42) See Rx Instructions PO PER PKG DIR 03/25/22 tablets in a dose pack (Chantix #42 ea Starting Month Box) insulin glargine U-300 conc 300 100 unit (0.3333 mL) subcut DAILY 03/28/22 unit/mL (3 mL) subcutaneous pen 30 days #9.999 mL (Toujeo Max U-300 SoloStar) pen needle, diabetic 32 gauge x #125 ea 04/01/22 (BD Ultra-Fine Mary Pen Needle) dulaglutide 0.75 mg/0.5 mL 0.75 mg (0.5 mL) subcut QWEEK 30 05/18/22 subcutaneous pen injector days #2.5 mL (Trulicity) levothyroxine 200 mcg tablet 200 mcg PO DAILY 30 days #30 tabs 06/27/22 levothyroxine 50 mcg tablet 50 mcg PO DAILY 30 days #30 tabs 06/27/22 levothyroxine 200 mcg tablet 1,000 mcg PO ONCE #5 tabs 06/29/22 insulin lispro 100 unit/mL 40 unit (0.4 mL) subcut TIDWMEAL 07/06/22 subcutaneous pen (Humalog KwikPen 30 days #36 mL (U-100) Insulin) atorvastatin 40 mg tablet 40 mg PO DAILY 30 days #30 tabs 07/21/22 budesonide 160 mcg-glycopyr 9 2 inh inhalation BID 30 days #10.7 08/18/22 mcg-formot 4.8 mcg/actuation HFA grams inhaler (Breztri Aerosphere) sumatriptan succinate 50 mg tablet See Rx Instructions PO .COMPLEX 09/04/22 (Imitrex) #10 tabs Allergies Allergy/AdvReac Type Severity Reaction Status Date / Time metformin Allergy Intermediate Diarrhea Verified 08/18/22 15:01 tetracycline Allergy Intermediate hives Verified 08/18/22 15:01 Latex, Natural Rubber Allergy Rash Verified 08/18/22 15:01 haloperidol [From HALDOL] AdvReac Intermediate Irritable Verified 08/18/22 15:01 duramorph/derivative or Allergy Intermediate hives Uncoded 08/18/22 15:01 morphi Review of Systems Review of Systems: As per HPI. Yes all other systems are reviewed and are negative Constitutional: Constitutional: Reports as per HPI Neurologic: Denies Abnormal speech present [facility] Past Medical History Medical History AAA (abdominal aortic aneurysm) without rupture Acute and chronic respiratory failure with hypoxia ADHD Aortic aneurysm Arthritis Asthma Back pain Chronic respiratory failure Chronic restrictive lung disease COPD (chronic obstructive pulmonary disease) Depression Diabetes Diabetes DM2 (diabetes mellitus, type 2) Fibula fracture Gallstone GERD (gastroesophageal reflux disease) Goiter Hepatitis Hernia History of posttraumatic stress disorder (PTSD) HLD (hyperlipidemia) HLD (hyperlipidemia) HTN (hypertension) Hx of fracture of patella Hypothyroidism Hypothyroidism Migraine Morbid (severe) obesity due to excess calories Morbid obesity Multinodular thyroid Myocardial infarction Obesity due to excess calories MORGAN on CPAP Pneumonia Pneumonitis PTSD (post-traumatic stress disorder) Pulmonary nodules Schizo affective schizophrenia Sleep apnea T2DM (type 2 diabetes mellitus) Umbilical hernia Vitamin D deficiency Surgical History History of incision and drainage Hx of knee surgery Hx of tubal ligation Tubal ligation status Family History Family History Father Unknown family medical history Mother Unknown family medical history Sister Ovarian cancer Son No problems noted. Son Depression Son Asthma Bipolar 1 disorder ADHD Daughter No problems noted. Daughter Unknown family medical history Daughter Unknown family medical history Daughter No problems noted. Social History Social History Household Members: None Housing: Apartment Are you a primary technical healthcare consultant to a significant other at home: No Do you presently have visiting nurse or other home services: Yes (vna and [employer]ftsman) Alcohol intake: never Patient Tobacco Use Status: Current everyday Tobacco user Tobacco use type: Cigarette Cigarette Packs Per Day: 6 Years Smoked: 35 Smoked in Last 30 Days: No e-Cigarette/Vaping Use: Currently Using Use of substances other than those prescribed or required for medical reasons: No Substance Use Type: Marijuana Advance Directives: Yes Advance Directives on File: Yes Advance Directives Date on File: 09/13/21 service: No Current occupational status: unemployed Physical Exam ED Vital Signs: Vital Signs - 24 hr 09/04/22 11:20 Temperature 97.6 F Pulse Rate 83 Respiratory Rate 22 H Blood Pressure 131/87 Pulse Oximetry 95 Oxygen Delivery Method Nasal Cannula BMI result Body Mass Index 73.8 Vital signs have been reviewed and appear to be correct. Blood pressure normal. Heart rate normal. Respiratory rate slightly elevated. Temperature normal. Oxygen saturation normal. Const General: no acute distress and alert; No acute distress Nutritional Appearance: obese morbidly obese Orientation/consciousness: patient oriented x3 Limitations: physical limitations HENMT Head: Yes normocephalic and Yes atraumatic Ears: external ears normal General nose exam: Normal external nose present Face and sinus: Yes face symmetric Mouth: oropharynx normal and moist mucous membranes Throat: Yes uvula midline Eyes Pupils: Equal, round and reactive pupils present Neck Neck: Yes normal visual inspection, Yes no meningeal signs and Yes supple Resp Effort & Inspection: normal respiratory effort and able to speak in complete sentences Auscultation: clear to auscultation bilaterally and diminished lung sounds diffuse Cardio Rate: regular rate Rhythm: regular rhythm Heart sounds: S1 normal heart sound present and S2 normal heart sound present GI Palpation (GI): Soft to palpation and nontender Auscultation: normoactive bowel sounds General: Yes no CVA tenderness Back/Spine/Pelvis Back: no CVA tenderness Skin General skin exam: elasticity normal and turgor normal Neuro General: patient oriented x3, tone normal, moves all extremities, no meningeal signs and CN's II-XI intact bilaterally Cranial nerves: Yes Equal, round and reactive pupils present Cognition (Neuro): normal cognition Speech: No Abnormal speech present Motor exam (neuro): Normal motor muscle tone present throughout Sensory Exam: Normal double simultaneous stimulation for sensation Extrem General: Yes full ROM and Yes no calf tenderness Psych Mental Status: mental status grossly normal Affect: normal affect Thought process: Normal thought process present Course Course Course Narrative: 13:01 Labs relatively unchanged from baseline. Patient reports improvement in headache, pain now 7/10. Will order ketorolac and additional fluids, reassess. Troponin negative. 14:00 TSH elevated, free T4 low. Discussed with patient who states she recently did an absorption test. She did not realize that she was supposed to be taking her synthroid 2 hours apart from food, and just recently starting taking this the correct way. She reports that she also occasionally forgets and eats shortly after taking the medication. PCP is aware. Patient states that her headache is better, and she feels ready for discharge home. Discussed with patient that her palpitations are likely related to her MORGAN, and that she could have a leak around her face mask for her CPAP. Instructed her to follow up with executive secretary social welfare regarding this. All results discussed and all questions answered. Return precautions discussed. Patient is requesting refill of Imitrex, will prescribe small supply and advised her to follow up with PCP. Medications Administered Discontinued Medications Generic Name Dose Route Start Last Admin Trade Name Freq PRN Reason Stop Dose Admin Diphenhydramine HCl 25 mg 09/04/22 11:51 09/04/22 12:08 Diphenhydramine Hcl 50 Mg/Ml Vial IVPUSH 09/04/22 11:52 25 mg ONCE ONE Administration Sodium Chloride 250 mls @ 999 mls/hr 09/04/22 12:00 09/04/22 12:45 Ns IV 09/04/22 12:15 Infused .Q16M SHARI Infusion Sodium Chloride 500 mls @ 999 mls/hr 09/04/22 13:15 09/04/22 13:52 Ns IV 09/04/22 13:45 Infused .Q31M SHARI Infusion Ketorolac Tromethamine 15 mg 09/04/22 12:59 09/04/22 13:18 Ketorolac Tromethamine 15 Mg/Ml Vial IVPUSH 09/04/22 13:00 15 mg ONCE ONE Administration Metoclopramide HCl 10 mg 09/04/22 11:51 09/04/22 12:09 Metoclopramide Hcl 10 Mg/2 Ml Vial IVPUSH 09/04/22 11:52 10 mg ONCE ONE Administration Medical Decision Making Medical Decision Making [facility] Narrative: Patient is a 52-year-old female with history of migraines, COPD, MORGAN on CPAP, morbid obesity, T2DM, HLD, prior DE presenting with headache, nausea, and photophobia for the past two days. On exam patient is awake, A+Ox3, VS WNL, requiring 5lpm via NC which is her baseline, normal neurological exam without focal deficits, LS diminished but clear throughout, abd soft and nontender. No red flag findings on exam. Concern for migraine versus tension headache. Unlikely acute angle closure glaucoma, carotid artery dissection, encephalitis, meningitis, pseudotumor cerebrii, SAH/ICH, temporal/giant cell arteritis. EKG is normal sinus rhythm, rate of 79. Regarding palpitations, differential includes ACS, electrolyte abnormality, dysrhythmia. Plan: Labs including troponin, TSH, CXR, pain control, reassess Please refer to course for remaining clinical decision making. Differential Diagnosis Differential Diagnoses: The differential diagnosis associated with the presentation includes As above. Lab Data [facility] Lab Attestation statement: I reviewed the patient's lab results. 09/04/22 11:57 09/04/22 11:58 Labs: Lab Results 09/04/22 09/04/22 09/04/22 Range/Units 11:57 11:58 11:58 WBC 6.9 (4.8-10.8) X10*3/uL RBC 3.82 L (4.20-5.50) X10*6/uL Hgb 10.5 L (12.0-16.0) g/dl Hct 33.8 L (37.0-47.0) % MCV 88.5 (80.0-98.0) fL MCH 27.5 (27.0-33.0) pg MCHC 31.1 (31.0-35.0) g/dl RDW 14.3 (11.0-16.0) % Plt Count 230 (160-400) X10*3/uL MPV 11.5 (9.4-12.3) fL Immature Gran % (Auto) 2.9 H (0.0-0.4) % Neut % (Auto) 50.2 (45-73) % Lymph % (Auto) 34.1 (20-40) % [place] % (Auto) 9.5 (2-11) % Eos % (Auto) 2.6 (0-4) % Baso % (Auto) 0.7 (0-2) % Lymph # (Auto) 2.3 (1.2-4.9) X10*3/uL [place] # (Auto) 0.7 (0.1-1.2) X10*3/uL Eos # (Auto) 0.2 (0.0-0.4) X10*3/uL Baso # (Auto) 0.1 (0.0-0.2) X10*3/uL Abs Immat Gran (auto) 0.20 H (0.00-0.03) X10*3/uL Absolute Neuts (auto) 3.4 (2.0-8.3) x10*3/uL Absolute Nucleated RBC 0.020 H (0.0-0.012) X10*3/uL Nucleated RBC % (auto) 0.3 H (0.0-0.2) /100WBC PT 11.3 (10.0-13.1) SEC INR 1.0 (0.9-1.1) Sodium 131 L (135-145) mmol/L Potassium 4.9 D (3.3-5.1) mmol/L Chloride 83 L (96-108) mmol/L Carbon Dioxide 33 H (22-29) mmol/L Anion Gap 20 (12-20) BUN 17 H (9-16) mg/dL Creatinine 0.92 (0.5-1.4) mg/dL Estim Creat Clear Calc 135.3 Estimated GFR > 60 Random Glucose 228 H (60-115) mg/dL Calcium 9.8 D (8.4-10.2) mg/dL Total Bilirubin 0.3 (0.0-1.0) mg/dL AST 24 (5-31) U/L ALT 12 (0-31) U/L Alkaline Phosphatase 52 (39-117) U/L Troponin I High Sens (<3.5-17.0) ng/L Total Protein 7.5 (6.5-8.0) g/dL Albumin 3.9 (3.5-5.0) g/dL Lipase 7 L (8-78) U/L TSH (0.32-4.0) uIU/mL Free T4 (0.71-1.85) ng/dL Beta HCG, Quant mIU/mL 09/04/22 09/04/22 09/04/22 Range/Units 11:58 11:58 11:58 WBC (4.8-10.8) X10*3/uL RBC (4.20-5.50) X10*6/uL Hgb (12.0-16.0) g/dl Hct (37.0-47.0) % MCV (80.0-98.0) fL MCH (27.0-33.0) pg MCHC (31.0-35.0) g/dl RDW (11.0-16.0) % Plt Count (160-400) X10*3/uL MPV (9.4-12.3) fL Immature Gran % (Auto) (0.0-0.4) % Neut % (Auto) (45-73) % Lymph % (Auto) (20-40) % [place] % (Auto) (2-11) % Eos % (Auto) (0-4) % Baso % (Auto) (0-2) % Lymph # (Auto) (1.2-4.9) X10*3/uL [place] # (Auto) (0.1-1.2) X10*3/uL Eos # (Auto) (0.0-0.4) X10*3/uL Baso # (Auto) (0.0-0.2) X10*3/uL Abs Immat Gran (auto) (0.00-0.03) X10*3/uL Absolute Neuts (auto) (2.0-8.3) x10*3/uL Absolute Nucleated RBC (0.0-0.012) X10*3/uL Nucleated RBC % (auto) (0.0-0.2) /100WBC PT (10.0-13.1) SEC INR (0.9-1.1) Sodium (135-145) mmol/L Potassium (3.3-5.1) mmol/L Chloride (96-108) mmol/L Carbon Dioxide (22-29) mmol/L Anion Gap (12-20) BUN (9-16) mg/dL Creatinine (0.5-1.4) mg/dL Estim Creat Clear Calc Estimated GFR Random Glucose (60-115) mg/dL Calcium (8.4-10.2) mg/dL Total Bilirubin (0.0-1.0) mg/dL AST (5-31) U/L ALT (0-31) U/L Alkaline Phosphatase (39-117) U/L Troponin I High Sens 3.1 (<3.5-17.0) ng/L Total Protein (6.5-8.0) g/dL Albumin (3.5-5.0) g/dL Lipase (8-78) U/L TSH 20.93 H (0.32-4.0) uIU/mL Free T4 0.69 L (0.71-1.85) ng/dL Beta HCG, Quant < 2 mIU/mL Independent Interpretation I performed an independent interpretation of an: EKG and Plain X-Ray Interpretation: EKG: normal sinus rhythm, rate 79 bpm, normal QRS duration, no evidence of STEMI I independently reviewed the x-ray and agree with the radiologist's interpretation. Radiology Impression Discussion of test interpretation with radiology: I have reviewed the radiologist's reading. Radiologist Impression: FINDINGS: Lines and tubes: EKG leads overlie the patient. Low lung volumes with perihilar and bibasilar consolidation with air bronchograms possibly reflective of aspiration or infection although in the setting of low lung volumes bronchovascular crowding could be a contributing factor. No pleural effusion. No pneumothorax. Normal cardiomediastinal silhouette. XR/XR chest 2V IMPRESSION: Low lung volumes with perihilar and bibasilar consolidation with air bronchograms possibly reflective of aspiration or infection although in the setting of low lung volumes bronchovascular crowding could be a contributing factor. External Record Review External record reviewed: Inpatient record, Office record and Outpatient record Prescription Management I considered prescription management with: Pain Medication Chronic Conditions Patient?s care impacted by: Diabetes and Hypertension Discharge Plan Discharge Clinical Impression: Headache, Palpitation Patient Disposition: Home, Self-Care Instructions: Heart Palpitations (DC), Acute Headache (DC) Additional Instructions: Please follow up with your PCP and executive secretary social welfare regarding your palpitations. Your CPAP mask may need adjustment. You are also being referred to a yield analyst for further evaluation of your palpitations. You are being prescribed a small supply of sumatriptan, please follow up with PCP for additional refills. Return to the emergency department for worsening or uncont rolled pain, vision changes, recurrent vomiting, difficulty with normal activities, abnormal behavior, numbness, weakness, lightheadedness, shortness of breath, or any other concerning symptoms. Prescriptions: New sumatriptan succinate [Imitrex] 50 mg tablet See Rx Instructions .ROUTE .COMPLEX Qty: 10 0RF Rx Instructions: take 1 tab at onset of headache; if no relief may repeat 1 tab after at least 2 hrs; max = 2 tabs/24 hr No Action (DME) Ankle Brace Misc See Rx Instructions .ROUTE .MEDSUPPLY Qty: 1 0RF Rx Instructions: AIRSELECT, STANDARD, MEDIUM tramadol 50 mg tablet 50 mg PO BID PRN (Reason: Pain) Qty: 30 0RF Vitron-C 65 mg iron- 125 mg tablet,delayed release (DR/EC) 1 tab PO BEDTIME Qty: 30 5RF Toujeo Max U-300 SoloStar 300 unit/mL (3 mL) insulin pen 100 unit subcut DAILY 30 Days Qty: 9.999 6RF (DME) pen needle, diabetic [BD Ultra-Fine Mary Pen Needle] 32 gauge x 5/32 needle See Rx Instructions .ROUTE .MEDSUPPLY Qty: 125 6RF Rx Instructions: As directed four times a day Trulicity 0.75 mg/0.5 mL pen injector 0.75 mg subcut QWEEK 30 Days Qty: 2.5 11RF levothyroxine 200 mcg tablet 200 mcg PO DAILY 30 Days Qty: 30 3RF levothyroxine 50 mcg tablet 50 mcg PO DAILY 30 Days Qty: 30 3RF levothyroxine 200 mcg tablet 1,000 mcg PO ONCE Qty: 5 0RF insulin lispro [Humalog KwikPen Insulin] 100 unit/mL insulin pen 40 unit subcut TIDWMEAL 30 Days Qty: 36 11RF atorvastatin 40 mg tablet 40 mg PO DAILY 30 Days Qty: 30 11RF multivitamin Tablet 1 tab PO DAILY thiamine HCl (vitamin B1) 100 mg Tablet 100 mg PO DAILY@1200 divalproex 500 mg Tablet,Delayed Release (Dr/Ec) 500 mg PO DAILY@1200 amitriptyline 10 mg Tablet 10 mg PO BEDTIME lisinopril 10 mg Tablet 10 mg PO BEDTIME benztropine 1 mg Tablet 1 mg PO BID@1200,2100 montelukast 10 mg Tablet 10 mg PO BEDTIME furosemide 40 mg tablet 1 tab PO DAILY prazosin 5 mg capsule 1 cap PO BEDTIME folic acid 1 mg tablet 1 tab PO QAM atenolol 50 mg tablet 50 mg PO DAILY@1200 melatonin 5 mg tablet 1 - 2 tab PO BEDTIME PRN (Reason: insomnia) Latuda 60 mg tablet 60 mg PO DAILY docusate sodium 100 mg Capsule 100 mg PO DAILY@1200 PRN (Reason: Constipation) quetiapine 400 mg tablet 600 mg PO BEDTIME albuterol sulfate 2.5 mg /3 mL (0.083 %) solution for nebulization 1 amp inhalation QID alendronate 70 mg tablet 1 tab PO MO@0600 hydroxyzine HCl 50 mg tablet 1 tab PO TID PRN (Reason: Anxiety) fluticasone propionate 50 mcg/actuation spray,suspension 1 spray intranasal DAILY diclofenac sodium 1 % gel 2 g topical QID PRN (Reason: Pain) Protocol: Apply to: Apply to: KNEE, ANKLE, BACK quetiapine 25 mg tablet 100 mg PO .AM PRN (Reason: anxiety) lidocaine 5 % Adhesive Patch,Medicated 1 patch TOPICAL DAILY Protocol: Apply to: Apply to: KNEES AND BACK Rx Instructions: leave on most painful area for up to 12 hrs albuterol sulfate [ProAir HFA] 90 mcg/actuation Hfa Aerosol Inhaler 2 puff INHALATION Q4H PRN (Reason: Respiratory Distress) Triple Antibiotic Plus 3.5-500-10,000 [id number]-[id number] Ointment 1 appl TOPICAL BID Protocol: Apply to: Apply to: ELBOW acetaminophen 500 mg Tablet 1,000 mg PO Q6H PRN (Reason: Pain) white petrolatum Ointment 1 appl TOPICAL BID PRN (Reason: Dry Skin) sumatriptan succinate 50 mg Tablet 50 mg PO DAILY PRN (Reason: Migraine Headache) Rx Instructions: do not exceed 4 doses per 24 hrs nicotine 14 mg/24 hr Patch 24 Hour 14 mg transdermal DAILY 30 Days Qty: 28 0RF nicotine (polacrilex) 2 mg gum 2 mg buccal Q2H Qty: 50 1RF (DME) nebulizers [facility] [place] See Rx Instructions .ROUTE Rx Instructions: As directed (DME) Oxygen Home Use Kit See Rx Instructions .ROUTE Rx Instructions: As directed varenicline [Chantix Starting Month Box] 0.5 mg (11)- 1 mg (42) tablets,dose pack See Rx Instructions PO PER PKG DIR Qty: 42 0RF Rx Instructions: PO PER PKG DIR cholecalciferol (vitamin D3) 50 mcg (2,000 unit) tablet 50 mcg PO DAILY nystatin 100,000 unit/gram powder topical BID white petrolatum 42 % ointment topical BID calcium carbonate [Antacid (calcium carbonate)] 200 mg calcium (500 mg) tablet,chewable 200 mg PO TID docusate sodium [Colace] 100 mg capsule 100 mg PO DAILY Cipro HC 0.2-1 % drops,suspension 3 drp otic (ears) Q12H Aquaphor Baby Healing 41 % ointment 1 appl topical DAILY PRN alendronate [Fosamax] 70 mg tablet 70 mg PO QWEEK Breztri Aerosphere 160-9-4.8 mcg/actuation HFA aerosol inhaler 2 inh inhalation BID 30 Days Qty: 10.7 11RF Referrals: [facility] [place] [facility] [Provider Group]
[2022-09-04 11:20] VITALS: BP 131/87; PULSE 83; RESP 22; TEMP 36.4; O2SAT 95; BMI 73.8
[2022-09-04 12:04] LABS: MANUAL DIFF FLAG NO
[2022-09-04 12:05] LABS: Basophils Absolute Auto 0.1 X10*3/uL (0.0-0.2); Basophils Percent Auto 0.7 % (0-2); Eosinophils Absolute Auto 0.2 X10*3/uL (0.0-0.4); Eosinophils Percent Auto 2.6 % (0-4); Hematocrit 33.8 % (37.0-47.0); Hemoglobin 10.5 g/dl (12.0-16.0); Imm Gran Pct Auto 2.9 % (0.0-0.4); Lymphocytes Absolute Auto 2.3 X10*3/uL (1.2-4.9); Lymphocytes Percent Auto 34.1 % (20-40); Mean Corpuscular HGB Conc 31.1 g/dl (31.0-35.0); Mean Corpuscular Hemoglobin 27.5 pg (27.0-33.0); Mean Corpuscular Volume 88.5 fL (80.0-98.0); Mean Platelet Volume 11.5 fL (9.4-12.3); Monocytes Absolute Auto 0.7 X10*3/uL (0.1-1.2); Monocytes Percent Auto 9.5 % (2-11); NRBC Pct Auto 0.3 /100WBC (0.0-0.2); Neutrophils Absolute Auto 3.4 x10*3/uL (2.0-8.3); Neutrophils Percent Auto 50.2 % (45-73); Platelet Count 230 X10*3/uL (160-400); Red Blood Count 3.82 X10*6/uL (4.20-5.50); Red Cell Distribution Width 14.3 % (11.0-16.0); White Blood Count 6.9 X10*3/uL (4.8-10.8)
[2022-09-04] MEDS: 0.9 % Sodium Chloride 250 ML 999 ML IV (12:08)
[2022-09-04] MEDS: diphenhydrAMINE HCL 50 MG/ML VIAL 25 MG IVPUSH (12:08)
[2022-09-04] MEDS: Metoclopramide HCl 10 MG/2 ML VIAL IVPUSH (12:09)
--- NOTE | 2022-09-04 12:14 | PC.NURSE ---
pt aox4, reporting 9/10 migraine pain x2 days. labs drawn, iv inserted, monitor on. pt on 6L O2 (baseline at home) sat 95% medicated per mar
[2022-09-04 12:24] LABS: Prothrombin Time 11.3 SEC (10.0-13.1); Troponin-I High Sensitivity 3.1 ng/L (<3.5-17.0)
[2022-09-04 12:29] LABS: Alanine Aminotransferase 12 U/L (0-31); Albumin Level 3.9 g/dL (3.5-5.0); Alkaline Phosphatase 52 U/L (39-117); Anion Gap 20 (12-20); Aspartate Amino Transferase 24 U/L (5-31); Bilirubin Total 0.3 mg/dL (0.0-1.0); Blood Urea Nitrogen 17 mg/dL (9-16); Calcium 9.8 mg/dL (8.4-10.2); Carbon Dioxide 33 mmol/L (22-29); Chloride 83 mmol/L (96-108); Creatinine Clr Calc Pharmacy 135.3; Estimated Glomerular Filt Rate > 60; Glucose Random 228 mg/dL (60-115); HCG Quantitative < 2 mIU/mL; Lipase 7 U/L (8-78); Potassium 4.9 mmol/L (3.3-5.1); Sodium 131 mmol/L (135-145); Total Protein 7.5 g/dL (6.5-8.0)
[2022-09-04 12:38] LABS: TSH reflex Free T4 20.93 uIU/mL (0.32-4.0)
[2022-09-04] MEDS: 0.9 % Sodium Chloride 500 ML 999 ML IV (13:18)
[2022-09-04] MEDS: Ketorolac Tromethamine 15 MG/ML VIAL IVPUSH (13:18)
[2022-09-04 13:32] LABS: Free T4 (Free Thyroxine) 0.69 ng/dL (0.71-1.85)
[2022-09-04 14:25] VITALS: BP 123/66; PULSE 78; RESP 20; O2SAT 92
== END 2022-09-04 14:52 | disposition home or self-care (01) ==
PROVIDERS: Registered Nurse Emergency; Emergency Provider Student in an Organized Health Care Education/Training Program
DX: R51.9 Headache, unspecified (principal); R00.2 Palpitations; E11.9 Type 2 diabetes mellitus without complications; E78.5 Hyperlipidemia, unspecified; E66.9 Obesity, unspecified; Z68.45 Body mass index [BMI] 70 or greater, adult; F17.210 Nicotine dependence, cigarettes, uncomplicated; Z79.899 Other long term (current) drug therapy; Z79.4 Long term (current) use of insulin; Z79.02 Long term (current) use of antithrombotics/antiplatelets
CPT/HCPCS: 36415; 71046; 80053; 83690; 84439; 84443; 84484; 84702; 85025; 85610; 93005; 96361; 96374; 96375; 99284; 99285; J1200; J1885; J2765

== ENCOUNTER 2022-09-08 17:59 | Inpatient (IN) | payer MEDICAID, SELFPAY ==
[2022-09-08] VITALS (7 sets, daily range): BP systolic 104–139; BP diastolic 69–90; PULSE 86–105; RESP 16–24; TEMP 36.5–38.8; O2SAT 90–95; BMI 72.7
--- NOTE | ~2022-09-08 | XR_ITS ---
EXAMINATION: XR CHEST CLINICAL INFORMATION: Altered mental status. Shortness of breath. COMPARISON: Chest radiograph 09/04/2022. TECHNIQUE: Frontal view of the chest was obtained. FINDINGS: Very limited essentially nondiagnostic examination secondary to patient body habitus and underexposure of the film. Cardiomediastinal silhouette appears grossly stable. No large lobar pulmonary opacity. No large pleural effusion or pneumothorax. Redemonstration of deformity of the right distal clavicle and right humeral neck. XR/XR chest 1V IMPRESSION: Very limited essentially nondiagnostic examination as above, recommend correlation with the already ordered CTA of the chest.
--- NOTE | ~2022-09-08 | US_ITS ---
EXAMINATION: Ultrasound-guided biopsy liver CLINICAL INFORMATION: Rule out liver abscess COMPARISON: Previous ultrasound and CT of the abdomen 09/12/2022 TECHNIQUE: Procedure and risks and benefits including bleeding and infection were discussed with the patient and informed consent was obtained. Using ultrasound guidance and a coaxial system, access to a hypoechoic area in the left lobe of the liver was obtained. 3 20-gauge core biopsies were obtained. Specimen was sent for pathology and microbiology studies. FINDINGS: Liver echotexture is heterogeneous with hyper and hypoechoic areas. This has a geographic pattern and is most suggestive of fatty infiltration with areas of focal fatty sparing. Large hypoechoic area in the lateral segment of the left lobe of the liver measuring approximately 2.5 x 6 cm was targeted for biopsy. US/US biopsy liver IMPRESSION: Ultrasound guided liver biopsy.
--- NOTE | ~2022-09-08 | US_ITS ---
EXAMINATION: US ABDOMEN LIMITED CLINICAL INFORMATION: Question liver abscess. COMPARISON: Previous CT of the abdomen and pelvis from earlier the same day TECHNIQUE: Real-time imaging of the right upper quadrant abdominal viscera. Limited due to body habitus. FINDINGS: PANCREAS: Not seen due to bowel gas. LIVER: The liver is enlarged. Liver echotexture is increased suggestive of fatty relation. There is heterogeneous appearance of the left lobe of the liver irregularly-shaped geographic areas of decreased attenuation questionable for areas of focal fatty sparing. No biliary duct dilatation. GALLBLADDER: Gallstone measuring 1.9 cm. The gallbladder is otherwise normal. COMMON BILE DUCT: Normal in caliber measuring 0.3 cm in diameter. RIGHT KIDNEY: The right kidney is enlarged. There is a 1.6 x 0.9 x 1.9 cm cyst in the mid to lower pole.. No hydronephrosis. No renal calculi. The kidney measures 14.5 cm in maximum dimension. FREE FLUID: None. US/US abdomen limited IMPRESSION: Limited exam. Enlarged echogenic liver probably representing fatty infiltration. Multiple hypoechoic areas in the left the liver with geographic margins. Appearance is questionable areas of focal fatty sparing. Follow-up liver MRI recommended. Gallstone.
--- NOTE | ~2022-09-08 | CT_ITS ---
EXAMINATION: CT HEAD WITHOUT CONTRAST CLINICAL INFORMATION: Altered mental status. COMPARISON: No similar priors. TECHNIQUE: Contiguous axial imaging was performed from the skull base to vertex without intravenous administration of contrast. This CT examination was performed using dose optimization techniques as appropriate, variously including the following: *Automated exposure control *Adjustment of mA and/or kV according to patient size (this includes techniques or standardized protocols for targeted exams where dose is matched to indication/reason for exam; i.e. extremities or head) *Use of iterative reconstruction technique DLP: 288 mGy-cm FINDINGS: Evaluation is limited by motion and patient body habitus. No discrete acute intracranial hemorrhage or edematous territorial infarction are noted. No evidence of obstructive hydrocephalus or midline shift. No extra-axial collections. No acute soft tissue or osseous abnormalities. Bilateral mastoid opacification. Paranasal sinuses are clear. CT/CT head/brain wo IV con IMPRESSION: Evaluation is limited by motion and patient body habitus. However, accounting for these limitations, no discrete acute intracranial abnormalities are identified. Correlation with an MRI of the brain could be obtained as clinically indicated.
--- NOTE | ~2022-09-08 | CT_ITS ---
EXAMINATION: CT ANGIOGRAM OF THE CHEST WITH AND WITHOUT CONTRAST (CT PULMONARY ANGIOGRAM FOR PE) CLINICAL INFORMATION: Reason for Exam tachcyardic, syncope, hypoxic fever COMPARISON: CT chest without contrast from 11/30/2021 TECHNIQUE: Prior to contrast administration, noncontrast localization images were obtained. Subsequently, multidetector volumetric imaging was performed from the thoracic inlet to below the diaphragms following the administration of 100 mL Omnipaque 350 intravenous contrast. No contrast reaction reported Sagittal, coronal, and MIP oblique sagittal reformatted images were obtained on the CT workstation, uploaded to PACS, and reviewed. This CT examination was performed using dose optimization techniques as appropriate, variously including the following: *Automated exposure control *Adjustment of mA and/or kV according to patient size (this includes techniques or standardized protocols for targeted exams where dose is matched to indication/reason for exam; i.e. extremities or head) *Use of iterative reconstruction technique Total exam dose-length product 2982 mGy-cm FINDINGS: QUALITY OF STUDY/CONTRAST BOLUS: Satisfactory. PULMONARY ARTERIES: While the contrast bolus is of adequate opacity, evaluation is suboptimal due to artifactual from patient body habitus. No large central pulmonary embolus is seen. Evaluation of the subsegmental branches is markedly suboptimal. THORACIC AORTA: No aneurysm. LUNG: Dependent atelectasis seen in the bilateral lower lobes. There is mild air trapping and groundglass changes seen in the left upper lobe which is grossly unchanged compared to the prior exam with some linear scarring present. There are no focal acute airspace lesions PLEURA: No pleural effusion or pneumothorax. MEDIASTINUM: Normal heart size. No pericardial effusion. No hilar or mediastinal lymphadenopathy. No evidence of septal bowing or right heart strain. CORONARY ARTERY CALCIFICATION: None visualized on this study. CHEST WALL/AXILLA: No axillary or internal mammary lymphadenopathy. OSSEOUS STRUCTURES: No acute or suspicious osseous abnormality. UPPER ABDOMEN: Unremarkable. No reflux of contrast into the hepatic veins to suggest elevated right heart pressures. CT/CT angio chest PE protocol IMPRESSION: No evidence of acute pulmonary embolus. Evaluation is suboptimal due to artifact from patient body habitus and therefore evaluation of the subsegmental branches is nondiagnostic. Bibasilar atelectasis. Air trapping and scarring seen in the left upper lobe. VTE: negative
--- NOTE | ~2022-09-08 | CT_ITS ---
EXAMINATION: CT ABDOMEN AND PELVIS WITH CONTRAST CLINICAL INFORMATION: COMPARISON: Previous chest CTA August 2022 and abdominal and pelvic CT scans most recent from 2019 TECHNIQUE: Multidetector volumetric images were obtained from the superior aspect of the liver through the pubic symphysis following administration 85 mL of Omnipaque 350 intravenous contrast. Sagittal and coronal reformatted images were obtained on the technologist's workstation. Oral contrast: Yes This CT examination was performed using dose optimization techniques as appropriate, variously including the following: *Automated exposure control *Adjustment of mA and/or kV according to patient size (this includes techniques or standardized protocols for targeted exams where dose is matched to indication/reason for exam; i.e. extremities or head) *Use of iterative reconstruction technique DLP: 1591 mGy-cm FINDINGS: LUNG BASES: Atelectasis or infiltrates at the lung bases. LIVER, GALLBLADDER, AND BILIARY TREE: The liver is enlarged. There are multiple new peripheral low-attenuation areas seen in the liver. Largest is located in the medial segment of the left lobe of the liver adjacent to the gallbladder. 1 x 2 cm gallstone. The gallbladder is otherwise unremarkable. No biliary duct dilatation. PANCREAS: Unremarkable. SPLEEN: Unremarkable. ADRENAL GLANDS: Unremarkable. KIDNEYS AND URETERS: The kidneys are normal in size, shape, and attenuation. No hydronephrosis, hydroureter, or calculi seen. No perinephric stranding. 1 cm low-attenuation right renal lesion probably representing a cyst. BLADDER: Unremarkable. GASTROINTESTINAL TRACT: Constipation. The small and large bowel are otherwise unremarkable. The appendix is unremarkable. ABDOMINAL WALL: Local hernia containing fat. LYMPH NODES: Normal. VASCULAR: There is an aneurysm of the abdominal aorta. This measures 4.8 x 5.2 cm. This is increased in size from [address] December 2021. PELVIC VISCERA: Unremarkable. OSSEOUS STRUCTURES: Degenerative changes of the spine. Probable bilateral femoral head AVN, left greater than right. CT/CT abdomen pelvis w IV con IMPRESSION: 5 cm abdominal aortic aneurysm. This is increased in size from December 2019 exam. Vascular surgery consultation recommended. Enlarged liver. New peripheral low-attenuation areas in the liver. This may represent atypical appearance of fatty infiltration. Liver infarcts or abscesses should also be considered. Follow-up MR of liver may be helpful. Gallstone. Constipation. Atelectasis or small infiltrates at the lung bases. Findings will be communicated by the [place] work flow epidemiologist. Fleischner guidelines were followed.
--- NOTE | 2022-09-08 18:08 | ECG_ITS ---
Test Reason : SHORTNESS OF BREATH Blood Pressure : / mmHG Vent. Rate : 103 BPM Atrial Rate : 103 BPM P-R Int : 190 ms QRS Dur : 092 ms QT Int : 344 ms P-R-T Axes : 045 -16 047 degrees QTc Int : 450 ms Sinus tachycardia Otherwise normal ECG When compared with ECG of 04-SEP-2022 10:52, No significant change was found Referred By: Tasneem Delacruz Electronically Signed By:CHRISSY GALLARDO
--- NOTE | 2022-09-08 18:16 | ED.AMS ---
HPI - Altered Mental Status General Chief Complaint: Dyspnea Stated Complaint: FALL Time Seen by Provider: 09/08/22 18:01 Source: patient, EMS and old records reviewed Mode of arrival: EMS Limitations: no limitations History of Present Illness HPI narrative: 52 yo female with PMH of HTN, hyperlipidemia, DM, morbid obesity, COPD/restrictive lung disease on CPAP last admission states 10L ambulation and 5L during the day, MORGAN, schizoaffective disorder, hypothyroidism, PTSD who was brought in by EMS after a fall and found to be 76% on 10L NC. She tells us that she had a headache today and took tylenol PM and then reportedly tried to get up and fell. EMS was called. I have tried to reach her partner but his phone was off. She is here on NRB - I am attempting to wean her down she appears sedated I see no signs of head trauma. She just occasionally states ow. MD complaint: confusion and other (hypoxia, fall) Onset (ago): unknown Timing confirmed by: other (EMS) Severity: moderate Consistency of symptoms: waxing and waning Context: other (possibly after taking tylenol PM) Associated symptoms: headaches and difficulty walking Treatments prior to arrival: oxygen Related Data Home Medications Medication Instructions Recorded Confirmed amitriptyline 10 mg tablet 10 mg PO BEDTIME 01/10/20 02/14/22 benztropine 1 mg tablet 1 mg PO BID@1200,2100 01/10/20 02/14/22 lisinopril 10 mg tablet 10 mg PO BEDTIME 01/10/20 02/14/22 montelukast 10 mg tablet 10 mg PO BEDTIME 01/10/20 02/14/22 multivitamin 1 tab PO DAILY 01/10/20 02/14/22 thiamine HCl (vitamin B1) 100 mg 100 mg PO DAILY@1200 01/10/20 02/14/22 tablet atenolol 50 mg tablet 50 mg PO DAILY@1200 04/20/21 02/14/22 docusate sodium 100 mg capsule 100 mg PO DAILY@1200 PRN 04/20/21 02/14/22 Constipation folic acid 1 mg tablet 1 tab PO QAM 04/20/21 02/14/22 furosemide 40 mg tablet 1 tab PO DAILY 04/20/21 02/14/22 lurasidone 60 mg tablet (Latuda) 60 mg PO DAILY@0700 04/20/21 02/14/22 melatonin 5 mg tablet 10 mg PO BEDTIME PRN insomnia 04/20/21 02/14/22 prazosin 5 mg capsule 1 cap PO BEDTIME 04/20/21 02/14/22 alendronate 70 mg tablet 1 tab PO MO@0600 04/22/21 02/14/22 diclofenac sodium 1 % topical gel 2 g topical QID PRN Pain 04/22/21 02/14/22 fluticasone propionate 50 1 spray intranasal DAILY 04/22/21 02/14/22 mcg/actuation nasal spray,suspension hydroxyzine HCl 50 mg tablet 1 tab PO TID PRN Anxiety 04/22/21 02/14/22 cholecalciferol (vitamin D3) 50 50 mcg PO DAILY 07/20/21 02/14/22 mcg (2,000 unit) tablet acetaminophen 500 mg tablet 1,000 mg PO Q6H PRN Pain 09/08/21 02/14/22 albuterol sulfate 90 mcg/actuation 2 puff inhalation Q4H PRN 09/08/21 02/14/22 aerosol inhaler (ProAir HFA) Respiratory Distress lidocaine 5 % topical patch 1 patch topical DAILY 09/08/21 02/14/22 white petrolatum 1 appl topical BID PRN Dry Skin 09/08/21 02/14/22 Oxygen Home Use 03/25/22 nebulizers 03/25/22 quetiapine 25 mg tablet 100 mg PO DAILY PRN anxiety 08/18/22 quetiapine 400 mg tablet 600 mg PO BEDTIME 08/18/22 cetirizine 10 mg tablet 10 mg PO DAILY PRN allergies 09/08/22 divalproex 250 mg tablet,extended 750 mg PO DAILY@1200 09/08/22 release 24 hr divalproex 500 mg tablet,extended 1,000 mg PO BEDTIME 09/08/22 release 24 hr fluticasone furoate 200 1 ea inhalation DAILY 09/08/22 mcg-vilanterol 25 mcg/dose inhalation powder (Breo Ellipta) nicotine (polacrilex) 4 mg gum 4 mg PO Q2H PRN Nicotine Cravings 09/08/22 prazosin 1 mg capsule 1 mg PO BEDTIME 09/08/22 09/08/22 umeclidinium 62.5 mcg/actuation 1 inh inhalation DAILY 09/08/22 blister powder for inhalation (Incruse Ellipta) Previous Rx's Medication Instructions Recorded leg brace (Ankle Brace) #1 ea 01/22/20 tramadol 50 mg tablet 50 mg PO BID PRN Pain #30 tabs 07/27/21 insulin glargine U-300 conc 300 100 unit (0.3333 mL) subcut DAILY 03/28/22 unit/mL (3 mL) subcutaneous pen 30 days #9.999 mL (Toujeo Max U-300 SoloStar) pen needle, diabetic 32 gauge x #125 ea 04/01/22 (BD Ultra-Fine Mary Pen Needle) dulaglutide 0.75 mg/0.5 mL 0.75 mg (0.5 mL) subcut QWEEK 30 05/18/22 subcutaneous pen injector days #2.5 mL (Trulicity) levothyroxine 200 mcg tablet 200 mcg PO DAILY 30 days #30 tabs 06/27/22 levothyroxine 50 mcg tablet 50 mcg PO DAILY 30 days #30 tabs 06/27/22 insulin lispro 100 unit/mL 40 unit (0.4 mL) subcut TIDWMEAL 07/06/22 subcutaneous pen (Humalog KwikPen 30 days #36 mL (U-100) Insulin) atorvastatin 40 mg tablet 40 mg PO DAILY 30 days #30 tabs 07/21/22 budesonide 160 mcg-glycopyr 9 2 inh inhalation BID 30 days #10.7 08/18/22 mcg-formot 4.8 mcg/actuation HFA grams inhaler (Breztri Aerosphere) Allergies Allergy/AdvReac Type Severity Reaction Status Date / Time metformin Allergy Intermediate Diarrhea Verified 08/18/22 15:01 tetracycline Allergy Intermediate hives Verified 08/18/22 15:01 Latex, Natural Rubber Allergy Rash Verified 08/18/22 15:01 haloperidol [From HALDOL] AdvReac Intermediate Irritable Verified 08/18/22 15:01 duramorph/derivative or Allergy Intermediate hives Uncoded 08/18/22 15:01 morphi Review of Systems Review of Systems: ROS unable to be obtained due to altered mental status PMFSH Past Medical History Attestation statement: The following information was validated with the patient. Source: old records reviewed Medical History AAA (abdominal aortic aneurysm) without rupture Acute and chronic respiratory failure with hypoxia ADHD Aortic aneurysm Arthritis Asthma Back pain Chronic respiratory failure Chronic restrictive lung disease COPD (chronic obstructive pulmonary disease) Depression Diabetes Diabetes DM2 (diabetes mellitus, type 2) Fibula fracture Gallstone GERD (gastroesophageal reflux disease) Goiter Hepatitis Hernia History of posttraumatic stress disorder (PTSD) HLD (hyperlipidemia) HLD (hyperlipidemia) HTN (hypertension) Hx of fracture of patella Hypothyroidism Hypothyroidism Migraine Morbid (severe) obesity due to excess calories Morbid obesity Multinodular thyroid Myocardial infarction Obesity due to excess calories MORGAN on CPAP Pneumonia Pneumonitis PTSD (post-traumatic stress disorder) Pulmonary nodules Schizo affective schizophrenia Sleep apnea T2DM (type 2 diabetes mellitus) Umbilical hernia Vitamin D deficiency Surgical History History of incision and drainage Hx of knee surgery Hx of tubal ligation Tubal ligation status Family History Family History Father Unknown family medical history Mother Unknown family medical history Sister Ovarian cancer Son No problems noted. Son Depression Son Asthma Bipolar 1 disorder ADHD Daughter No problems noted. Daughter Unknown family medical history Daughter Unknown family medical history Daughter No problems noted. Social History Social History Household Members: None Housing: Apartment Are you a primary daycare assistant to a significant other at home: No Do you presently have visiting nurse or other home services: Yes (vna and computer patternmaker) Alcohol intake: never Patient Tobacco Use Status: Current everyday Tobacco user Tobacco use type: Cigarette Cigarette Packs Per Day: 6 Years Smoked: 35 e-Cigarette/Vaping Use: Currently Using Substance Use Type: Marijuana Advance Directives: Yes Advance Directives on File: Yes Advance Directives Date on File: 09/13/21 service: No Current occupational status: unemployed Physical Exam ED Vital Signs: Vital Signs - 24 hr 09/08/22 18:20 09/08/22 18:38 09/08/22 18:43 Temperature 101.8 F H Pulse Rate 88 105 H 104 H Respiratory Rate 20 24 H 20 Blood Pressure 139/80 131/90 H Pulse Oximetry 93 93 Oxygen Delivery Method Oxymask Oxymask Oxygen Flow Rate 8 09/08/22 20:26 09/08/22 21:36 Temperature 99.6 F Pulse Rate 103 H Respiratory Rate 18 16 Blood Pressure 104/69 Pulse Oximetry 92 Oxygen Delivery Method Venturi Mask Oxygen Flow Rate 7 BMI result Body Mass Index 72.7 Appearance: Somnolent but wakes to voice Oriented X2 . Moderate acute distress. Eyes: Pupils equal, round and reactive to light. 3mm ENT: Pharynx normal. atraumatic Neck: Normal inspection. Neck supple. CVS: Normal heart rate and rhythm. Pulses normal. Respiratory: Mild respiratory distress. Breath sounds very diminished Abdomen: Soft and nontender. Obese Skin: Skin warm and dry. Normal skin color. Normal skin turgor. Extremities: No lower extremity edema. moved arms and legs no grimace no obvious deformity Neuro: Oriented X 2. No motor deficit. No sensory deficit. Course Course Course Narrative: + fever - IV ceftriaxone and PO tylenol ordered has already had lactic acid and cultures - fever just found 645pm. the patient now reports she has had increased trouble breathing and was walking and tonight she thinks she collapsed. has felt sick not feeling well with cough Reevaluation(s) Reevaluation #1: hx of low Na but this is lower than baseline of 128 Medications Administered Generic Name Dose Route Start Last Admin Trade Name Freq PRN Reason Stop Dose Admin Sodium Chloride 500 mls @ 500 mls/hr 09/08/22 21:09 09/08/22 21:21 Ns IV 09/08/22 22:08 500 mls/hr .Q1H ONE Administration Discontinued Medications Generic Name Dose Route Start Last Admin Trade Name Freq PRN Reason Stop Dose Admin Acetaminophen 650 mg 09/08/22 18:45 09/08/22 18:56 Acetaminophen 325 Mg Tablet PO 09/08/22 18:46 650 mg ONCE ONE Administration Albuterol/Ipratropium 3 ml 09/08/22 18:07 09/08/22 18:18 Albuterol/Iprat 2.5/0.5mg 3 Ml Ampul.Neb INHALE 09/08/22 18:08 3 ml ONCE ONE Administration Ceftriaxone Sodium 1 gm/ 50 mls @ 100 mls/hr 09/08/22 18:45 09/08/22 20:11 Sodium Chloride IV 09/08/22 19:14 Infused ONCE ONE Infusion Azithromycin 500 mg/ Sodium 250 mls @ 125 mls/hr 09/08/22 19:17 09/08/22 20:09 Chloride IV 09/08/22 21:16 125 mls/hr ONCE ONE Administration Iohexol 100 ml 09/08/22 19:55 09/08/22 19:56 Iohexol 350 Mg/Ml 100 Ml Infus..Btl IV 09/08/22 19:56 100 ml ONCE ONE Administration Methylprednisolone Sodium Succinate 60 mg 09/08/22 18:07 09/08/22 18:30 Methylprednisolone Sod Succ 125 Mg/2 Ml Vial IVPUSH 09/08/22 18:08 60 mg ONCE ONE Administration Ondansetron HCl 4 mg 09/08/22 19:43 09/08/22 19:50 Ondansetron Hcl 4 Mg/2 Ml Vial IVPUSH 09/08/22 19:44 4 mg ONCE ONE Administration Medical Decision Making Medical Decision Making MDM Narrative: 52 yo female with PMH of hypertension hyperlipidemia, diabetes, morbid obesity, COPD/restrictive lung disease on CPAP, MORGAN, schizoaffective disorder, hypothyroidism, PTSD here with reported headache today which she suffers from migraines - took a tylenol PM then needed help going to the bathroom and fell. Partner needed help to get her up and the patient was found on the floor hypoxic in 70s she was on her 10L of oxygen. I do not see trauma to the head but the patient is somnolent and oriented x 2 I suspect due to hypercarbia. Labs, CXR ordered if she does not improve I will order CT head. Differential Diagnosis Differential Diagnoses: The differential diagnosis associated with the presentation includes hypercapneic and hypoxic respiratory failure, pneumonia, polypharmacy, aspiration Admission/Observation Consideration of admission/observation: Escalation of care including admission/observation considered Consult Healthcare Provider Management of the patient was discussed with: Hospitalist Lab Data [facility] Lab Attestation statement: I reviewed the patient's lab results. 09/08/22 18:24 09/08/22 18:24 Labs: Lab Results 09/08/22 09/08/22 09/08/22 Range/Units 18:24 18:24 18:24 WBC (4.8-10.8) X10*3/uL RBC (4.20-5.50) X10*6/uL Hgb (12.0-16.0) g/dl Hct (37.0-47.0) % MCV (80.0-98.0) fL MCH (27.0-33.0) pg MCHC (31.0-35.0) g/dl RDW (11.0-16.0) % Plt Count (160-400) X10*3/uL MPV (9.4-12.3) fL Immature Gran % (Auto) (0.0-0.4) % Neut % (Auto) (45-73) % Lymph % (Auto) (20-40) % [place] % (Auto) (2-11) % Eos % (Auto) (0-4) % Baso % (Auto) (0-2) % Lymph # (Auto) (1.2-4.9) X10*3/uL [place] # (Auto) (0.1-1.2) X10*3/uL Eos # (Auto) (0.0-0.4) X10*3/uL Baso # (Auto) (0.0-0.2) X10*3/uL Abs Immat Gran (auto) (0.00-0.03) X10*3/uL Absolute Neuts (auto) (2.0-8.3) x10*3/uL Absolute Nucleated RBC (0.0-0.012) X10*3/uL Nucleated RBC % (auto) (0.0-0.2) /100WBC PT (10.0-13.1) SEC INR (0.9-1.1) VBG pH (7.32-7.43) VBG pCO2 mmHg VBG pO2 mmHg VBG HCO3 (22-26) mmol/L VBG O2 Saturation % VBG Base Excess mmol/L Sodium 122 L (135-145) mmol/L Potassium 4.5 (3.3-5.1) mmol/L Chloride 76 L (96-108) mmol/L Carbon Dioxide 31 H (22-29) mmol/L Anion Gap 20 (12-20) BUN 13 (9-16) mg/dL Creatinine 0.87 (0.5-1.4) mg/dL Estim Creat Clear Calc 146.4 Estimated GFR > 60 Random Glucose 142 H (60-115) mg/dL Lactic Acid (0.5-2.0) mmol/L Calcium 9.9 (8.4-10.2) mg/dL Magnesium 1.7 (1.6-2.6) mg/dL Total Bilirubin 0.5 (0.0-1.0) mg/dL Direct Bilirubin 0.2 (0.0-0.5) mg/dL AST 30 (5-31) U/L ALT 17 (0-31) U/L Alkaline Phosphatase 77 (39-117) U/L Ammonia 52 (13-55) umol/L Total Creatine Kinase 253 H (26-140) U/L B-Natriuretic Peptide 65 (<100) pg/mL Total Protein 7.8 (6.5-8.0) g/dL Albumin 4.0 (3.5-5.0) g/dL Lipase < 4 L (8-78) U/L Procalcitonin 0.18 ng/mL Ethyl Alcohol mg/dL COVID-19 (JEFFRY) (Negative) COVID-19 Clin Com Influenza Type A (LEOBARDO) (Negative) Influenza Type B (LEOBARDO) (Negative) Influenza A & B Note 09/08/22 09/08/22 09/08/22 Range/Units 18:24 18:24 18:24 WBC 10.1 (4.8-10.8) X10*3/uL RBC 4.07 L (4.20-5.50) X10*6/uL Hgb 11.3 L (12.0-16.0) g/dl Hct 34.4 L (37.0-47.0) % MCV 84.5 (80.0-98.0) fL MCH 27.8 (27.0-33.0) pg MCHC 32.8 (31.0-35.0) g/dl RDW 13.8 (11.0-16.0) % Plt Count 196 (160-400) X10*3/uL MPV 11.6 (9.4-12.3) fL Immature Gran % (Auto) 1.4 H (0.0-0.4) % Neut % (Auto) 73.8 H (45-73) % Lymph % (Auto) 12.4 L (20-40) % [place] % (Auto) 11.8 H (2-11) % Eos % (Auto) 0.1 (0-4) % Baso % (Auto) 0.5 (0-2) % Lymph # (Auto) 1.3 (1.2-4.9) X10*3/uL [place] # (Auto) 1.2 (0.1-1.2) X10*3/uL Eos # (Auto) 0.0 (0.0-0.4) X10*3/uL Baso # (Auto) 0.1 (0.0-0.2) X10*3/uL Abs Immat Gran (auto) 0.14 H (0.00-0.03) X10*3/uL Absolute Neuts (auto) 7.4 (2.0-8.3) x10*3/uL Absolute Nucleated RBC 0.020 H (0.0-0.012) X10*3/uL Nucleated RBC % (auto) 0.2 (0.0-0.2) /100WBC PT 12.8 (10.0-13.1) SEC INR 1.1 (0.9-1.1) VBG pH (7.32-7.43) VBG pCO2 mmHg VBG pO2 mmHg VBG HCO3 (22-26) mmol/L VBG O2 Saturation % VBG Base Excess mmol/L Sodium (135-145) mmol/L Potassium (3.3-5.1) mmol/L Chloride (96-108) mmol/L Carbon Dioxide (22-29) mmol/L Anion Gap (12-20) BUN (9-16) mg/dL Creatinine (0.5-1.4) mg/dL Estim Creat Clear Calc Estimated GFR Random Glucose (60-115) mg/dL Lactic Acid 1.9 (0.5-2.0) mmol/L Calcium (8.4-10.2) mg/dL Magnesium (1.6-2.6) mg/dL Total Bilirubin (0.0-1.0) mg/dL Direct Bilirubin (0.0-0.5) mg/dL AST (5-31) U/L ALT (0-31) U/L Alkaline Phosphatase (39-117) U/L Ammonia (13-55) umol/L Total Creatine Kinase (26-140) U/L B-Natriuretic Peptide (<100) pg/mL Total Protein (6.5-8.0) g/dL Albumin (3.5-5.0) g/dL Lipase (8-78) U/L Procalcitonin ng/mL Ethyl Alcohol mg/dL COVID-19 (JEFFRY) (Negative) COVID-19 Clin Com Influenza Type A (LEOBARDO) (Negative) Influenza Type B (LEOBARDO) (Negative) Influenza A & B Note 09/08/22 09/08/22 09/08/22 Range/Units 18:24 18:26 19:07 WBC (4.8-10.8) X10*3/uL RBC (4.20-5.50) X10*6/uL Hgb (12.0-16.0) g/dl Hct (37.0-47.0) % MCV (80.0-98.0) fL MCH (27.0-33.0) pg MCHC (31.0-35.0) g/dl RDW (11.0-16.0) % Plt Count (160-400) X10*3/uL MPV (9.4-12.3) fL Immature Gran % (Auto) (0.0-0.4) % Neut % (Auto) (45-73) % Lymph % (Auto) (20-40) % [place] % (Auto) (2-11) % Eos % (Auto) (0-4) % Baso % (Auto) (0-2) % Lymph # (Auto) (1.2-4.9) X10*3/uL [place] # (Auto) (0.1-1.2) X10*3/uL Eos # (Auto) (0.0-0.4) X10*3/uL Baso # (Auto) (0.0-0.2) X10*3/uL Abs Immat Gran (auto) (0.00-0.03) X10*3/uL Absolute Neuts (auto) (2.0-8.3) x10*3/uL Absolute Nucleated RBC (0.0-0.012) X10*3/uL Nucleated RBC % (auto) (0.0-0.2) /100WBC PT (10.0-13.1) SEC INR (0.9-1.1) VBG pH 7.57 H (7.32-7.43) VBG pCO2 42 mmHg VBG pO2 77 mmHg VBG HCO3 39 H (22-26) mmol/L VBG O2 Saturation 97.0 % VBG Base Excess 15.9 mmol/L Sodium (135-145) mmol/L Potassium (3.3-5.1) mmol/L Chloride (96-108) mmol/L Carbon Dioxide (22-29) mmol/L Anion Gap (12-20) BUN (9-16) mg/dL Creatinine (0.5-1.4) mg/dL Estim Creat Clear Calc Estimated GFR Random Glucose (60-115) mg/dL Lactic Acid (0.5-2.0) mmol/L Calcium (8.4-10.2) mg/dL Magnesium (1.6-2.6) mg/dL Total Bilirubin (0.0-1.0) mg/dL Direct Bilirubin (0.0-0.5) mg/dL AST (5-31) U/L ALT (0-31) U/L Alkaline Phosphatase (39-117) U/L Ammonia (13-55) umol/L Total Creatine Kinase (26-140) U/L B-Natriuretic Peptide (<100) pg/mL Total Protein (6.5-8.0) g/dL Albumin (3.5-5.0) g/dL Lipase (8-78) U/L Procalcitonin ng/mL Ethyl Alcohol < 10 mg/dL COVID-19 (JEFFRY) (Negative) COVID-19 Clin Com Influenza Type A (LEOBARDO) Negative (Negative) Influenza Type B (LEOBARDO) Negative (Negative) Influenza A & B Note See Note 09/08/22 Range/Units 19:07 WBC (4.8-10.8) X10*3/uL RBC (4.20-5.50) X10*6/uL Hgb (12.0-16.0) g/dl Hct (37.0-47.0) % MCV (80.0-98.0) fL MCH (27.0-33.0) pg MCHC (31.0-35.0) g/dl RDW (11.0-16.0) % Plt Count (160-400) X10*3/uL MPV (9.4-12.3) fL Immature Gran % (Auto) (0.0-0.4) % Neut % (Auto) (45-73) % Lymph % (Auto) (20-40) % [place] % (Auto) (2-11) % Eos % (Auto) (0-4) % Baso % (Auto) (0-2) % Lymph # (Auto) (1.2-4.9) X10*3/uL [place] # (Auto) (0.1-1.2) X10*3/uL Eos # (Auto) (0.0-0.4) X10*3/uL Baso # (Auto) (0.0-0.2) X10*3/uL Abs Immat Gran (auto) (0.00-0.03) X10*3/uL Absolute Neuts (auto) (2.0-8.3) x10*3/uL Absolute Nucleated RBC (0.0-0.012) X10*3/uL Nucleated RBC % (auto) (0.0-0.2) /100WBC PT (10.0-13.1) SEC INR (0.9-1.1) VBG pH (7.32-7.43) VBG pCO2 mmHg VBG pO2 mmHg VBG HCO3 (22-26) mmol/L VBG O2 Saturation % VBG Base Excess mmol/L Sodium (135-145) mmol/L Potassium (3.3-5.1) mmol/L Chloride (96-108) mmol/L Carbon Dioxide (22-29) mmol/L Anion Gap (12-20) BUN (9-16) mg/dL Creatinine (0.5-1.4) mg/dL Estim Creat Clear Calc Estimated GFR Random Glucose (60-115) mg/dL Lactic Acid (0.5-2.0) mmol/L Calcium (8.4-10.2) mg/dL Magnesium (1.6-2.6) mg/dL Total Bilirubin (0.0-1.0) mg/dL Direct Bilirubin (0.0-0.5) mg/dL AST (5-31) U/L ALT (0-31) U/L Alkaline Phosphatase (39-117) U/L Ammonia (13-55) umol/L Total Creatine Kinase (26-140) U/L B-Natriuretic Peptide (<100) pg/mL Total Protein (6.5-8.0) g/dL Albumin (3.5-5.0) g/dL Lipase (8-78) U/L Procalcitonin ng/mL Ethyl Alcohol mg/dL COVID-19 (JEFFRY) Negative (Negative) COVID-19 Clin Com See Note Influenza Type A (LEOBARDO) (Negative) Influenza Type B (LEOBARDO) (Negative) Influenza A & B Note ABG Data Attestation ABG: I personally reviewed and interpreted this ABG as follows: (VBG) Independent Interpretation I performed an independent interpretation of an: EKG and Plain X-Ray Interpretation: Rate: 103 Rhythm: sinus tachycardia [place]: left Normal P waves. Normal KRISTI. Normal QRS complex. ST T wave : normal no SCARLET qTC: normal prior studies: no acute ischemia The study has been interpreted contemporaneously by me. . Radiology Impression Discussion of test interpretation with radiology: I have reviewed the radiologist's reading. Independent Historian Clinical information obtained from an independent historian. History obtained from or confirmed by: EMS unable to reach partner - phone number listed is out of service External Record Review External record reviewed: Inpatient record O2 recommendations from last discharge Chronic Conditions Patient?s care impacted by: Other Discharge Plan Discharge Clinical Impression: Acute febrile illness, Hypoxia, Acute hyponatremia Pneumonia Qualifiers: Pneumonia type: due to unspecified organism Laterality: left Lung location: unspecified part of lung Qualified Code(s): J18.9 - Pneumonia, unspecified organism Patient Disposition: Admitted As Inpatient
[2022-09-08] MEDS: Albuterol/Iprat 2.5/0.5MG 3 ML AMPUL.NEB INHALE (18:18)
[2022-09-08 18:30] LABS: MANUAL DIFF FLAG NO
[2022-09-08] MEDS: methylPREDNISolone Sod Succ 125 MG/2 ML VIAL 60 MG IVPUSH (18:30)
[2022-09-08 18:31] LABS: Venous Blood Gas Refer to POC result
[2022-09-08 18:33] LABS: Basophils Absolute Auto 0.1 X10*3/uL (0.0-0.2); Basophils Percent Auto 0.5 % (0-2); Eosinophils Percent Auto 0.1 % (0-4); Hematocrit 34.4 % (37.0-47.0); Hemoglobin 11.3 g/dl (12.0-16.0); Imm Gran Abs Auto 0.14 X10*3/uL (0.00-0.03); Imm Gran Pct Auto 1.4 % (0.0-0.4); Lymphocytes Absolute Auto 1.3 X10*3/uL (1.2-4.9); Lymphocytes Percent Auto 12.4 % (20-40); Mean Corpuscular HGB Conc 32.8 g/dl (31.0-35.0); Mean Corpuscular Hemoglobin 27.8 pg (27.0-33.0); Mean Corpuscular Volume 84.5 fL (80.0-98.0); Mean Platelet Volume 11.6 fL (9.4-12.3); Monocytes Absolute Auto 1.2 X10*3/uL (0.1-1.2); Monocytes Percent Auto 11.8 % (2-11); NRBC Pct Auto 0.2 /100WBC (0.0-0.2); Neutrophils Absolute Auto 7.4 x10*3/uL (2.0-8.3); Neutrophils Percent Auto 73.8 % (45-73); Platelet Count 196 X10*3/uL (160-400); Red Blood Count 4.07 X10*6/uL (4.20-5.50); Red Cell Distribution Width 13.8 % (11.0-16.0); White Blood Count 10.1 X10*3/uL (4.8-10.8)
[2022-09-08 18:34] LABS: VBG Base Excess 15.9 mmol/L; VBG HCO3 39 mmol/L (22-26); VBG pCO2 42 mmHg; VBG pH 7.57 (7.32-7.43); VBG pO2 77 mmHg
[2022-09-08 18:37] LABS: INTERNATIONAL NORM RATIO 1.1 (0.9-1.1); Prothrombin Time 12.8 SEC (10.0-13.1)
[2022-09-08 18:47] LABS: Lactic Acid 1.9 mmol/L (0.5-2.0)
--- NOTE | 2022-09-08 18:49 | PC.NURSE ---
pt becoming more alert and oriented at this time. pt reports just collapsing at home today, reporting LOC. states she was wearing her oxygen today but has been sick at home. awake to verbal stimuli. iv established, labs drawn and sent. pending ct scan.
[2022-09-08 18:50] LABS: Ammonia 52 umol/L (13-55)
[2022-09-08] MEDS: cefTRIAXone sodium 1 GM in 0.9 % Sodium Chloride 50 ML IV (18:53)
[2022-09-08] MEDS: Acetaminophen 325 MG TABLET 650 MG PO (18:56)
--- NOTE | 2022-09-08 18:58 | PC.NURSE ---
antibiotics infusing, medicated per the mar for fever. pt able to swallow Tylenol with no issue
[2022-09-08 18:59] LABS: B Type Natriuretic Peptide 65 pg/mL (<100)
[2022-09-08 19:14] LABS: Alanine Aminotransferase 17 U/L (0-31); Alkaline Phosphatase 77 U/L (39-117); Anion Gap 20 (12-20); Aspartate Amino Transferase 30 U/L (5-31); Bilirubin Direct 0.2 mg/dL (0.0-0.5); Bilirubin Total 0.5 mg/dL (0.0-1.0); Blood Urea Nitrogen 13 mg/dL (9-16); Calcium 9.9 mg/dL (8.4-10.2); Carbon Dioxide 31 mmol/L (22-29); Chloride 76 mmol/L (96-108); Creatinine Clr Calc Pharmacy 146.4; Estimated Glomerular Filt Rate > 60; Ethanol < 10 mg/dL; Glucose Random 142 mg/dL (60-115); Lipase < 4 U/L (8-78); Magnesium 1.7 mg/dL (1.6-2.6); Potassium 4.5 mmol/L (3.3-5.1); Sodium 122 mmol/L (135-145); Total Protein 7.8 g/dL (6.5-8.0)
[2022-09-08 19:19] LABS: Procalcitonin 0.18 ng/mL
[2022-09-08 19:29] LABS: COVID-19 Test Negative (Negative); IDNOW Serial# BCCEAD1C
[2022-09-08 19:31] LABS: IDNOW Serial# 9DB6401D; Influenza A Negative (Negative); Influenza B2 Negative (Negative)
[2022-09-08] MEDS: ondansetron HCL 4 MG/2 ML VIAL IVPUSH (19:50)
[2022-09-08] MEDS: iohexoL 350 MG/ML 100 ML INFUS..BTL IV (19:56)
[2022-09-08] MEDS: Azithromycin 500 MG in 0.9 % Sodium Chloride 250 ML 125 MG IV (20:09)
--- NOTE | 2022-09-08 21:03 | PM.IMHP ---
History of Present Illness Date of Service: 09/08/22 Attending physician on admission: Carolyn Perera Chief Complaint: SOB Pt is a 52-year-old female with a PMH significant for?COPD/restrictive lung disease on CPAP, HTN, HLD, insulin-dependent diabetes type 2, morbid obesity, MORGAN, schizoaffective disorder, hypothyroidism, and PTSD who presents to the ED with?after a fall at and found to be satting at 76% on 10 L NC by EMS. Patient somnolent and on BiPAP at time of interview and examination, incapable of providing accurate HPI or ROS. HPI mainly provided by chart and provider review. Apparently patient had a headache earlier today and took Tylenol p.m. for the pain. Patient then apparently needed help going to the bathroom but fell and partner could not get patient up on her own so called EMS for help. Patient also reports that she has had trouble breathing while walking lately, has felt generally unwell and had a cough. Patient was noted to spike a fever in the ED at around 18:45. In the ED patient was febrile to 101.8, tachycardic up to 105, tachypneic up to 24, satting at 93% O2 on 8 L OxyMask. Labs were significant for H&H of 11.3/34.4, sodium of 122, chloride of 76, lipase <4. Patient tested negative for COVID, influenza type a and B. VBG pH 7.57 with bicarb 39. CXR was very limited and essentially nondiagnostic due to patient body habitus and under exposure of the film. CT?of head likewise limited by motion and patient body habitus, though found no discrete acute intracranial abnormalities. CTA negative for pulmonary embolus but found mild air trapping ground-glass changes in the left upper lobe. EKG demonstrated sinus tachycardia without evidence of ST elevations or depressions. Pt was treated with DuoNebs, Solu-Medrol, ceftriaxone, azithromycin, acetaminophen, ondansetron, and IVF. Pt will be admitted to the hospital for acute on chronic hypoxic respiratory failure in the setting of likely pneumonia. Review of Systems Review of Systems: Patient on BiPAP and somnolent, ROS unable to obtain [facility] Medical History AAA (abdominal aortic aneurysm) without rupture Acute and chronic respiratory failure with hypoxia ADHD Aortic aneurysm Arthritis Asthma Back pain Chronic respiratory failure Chronic restrictive lung disease COPD (chronic obstructive pulmonary disease) Depression Diabetes Diabetes DM2 (diabetes mellitus, type 2) Fibula fracture Gallstone GERD (gastroesophageal reflux disease) Goiter Hepatitis Hernia History of posttraumatic stress disorder (PTSD) HLD (hyperlipidemia) HLD (hyperlipidemia) HTN (hypertension) Hx of fracture of patella Hypothyroidism Hypothyroidism Migraine Morbid (severe) obesity due to excess calories Morbid obesity Multinodular thyroid Myocardial infarction Obesity due to excess calories MORGAN on CPAP Pneumonia Pneumonitis PTSD (post-traumatic stress disorder) Pulmonary nodules Schizo affective schizophrenia Sleep apnea T2DM (type 2 diabetes mellitus) Umbilical hernia Vitamin D deficiency Family History Father Unknown family medical history Mother Unknown family medical history Sister Ovarian cancer Son No problems noted. Son Depression Son Asthma Bipolar 1 disorder ADHD Daughter No problems noted. Daughter Unknown family medical history Daughter Unknown family medical history Daughter No problems noted. Surgical History History of incision and drainage Hx of knee surgery Hx of tubal ligation Tubal ligation status Social History Household Members: None Housing: Apartment Are you a primary animal daycare provider to a significant other at home: No Do you presently have visiting nurse or other home services: Yes (vna and wiping rag washer) Alcohol intake: never Patient Tobacco Use Status: Current everyday Tobacco user Tobacco use type: Cigarette Cigarette Packs Per Day: 6 Years Smoked: 35 e-Cigarette/Vaping Use: Currently Using Substance Use Type: Marijuana Advance Directives: Yes Advance Directives on File: Yes Advance Directives Date on File: 09/13/21 service: No Current occupational status: unemployed Meds Allergies Allergy/AdvReac Type Severity Reaction Status Date / Time metformin Allergy Intermediate Diarrhea Verified 08/18/22 15:01 tetracycline Allergy Intermediate hives Verified 08/18/22 15:01 Latex, Natural Rubber Allergy Rash Verified 08/18/22 15:01 haloperidol [From HALDOL] AdvReac Intermediate Irritable Verified 08/18/22 15:01 duramorph/derivative or Allergy Intermediate hives Uncoded 08/18/22 15:01 morphi Active Medications: Current Medications Azithromycin 500 mg/ Sodium (Chloride) 250 mls @ 125 mls/hr IV ONCE ONE Stop: 09/08/22 21:16 Last Admin: 09/08/22 20:09 Dose: 125 mls/hr Pharmacy Consult (Consult Rx Perform Med Rec) 1 each MISCELLANE ONCE PRN PRN Reason: Consult order Home Medications Medication Instructions Recorded Confirmed Last Taken Type amitriptyline 10 mg tablet 10 mg PO BEDTIME 01/10/20 02/14/22 09/07/21 History benztropine 1 mg tablet 1 mg PO BID@1200,2100 01/10/20 02/14/22 09/08/21 History lisinopril 10 mg tablet 10 mg PO BEDTIME 01/10/20 02/14/22 09/07/21 History montelukast 10 mg tablet 10 mg PO BEDTIME 01/10/20 02/14/22 09/07/21 History multivitamin 1 tab PO DAILY 01/10/20 02/14/22 09/08/21 History thiamine HCl (vitamin B1) 100 mg 100 mg PO DAILY@1200 01/10/20 02/14/22 09/08/21 History tablet atenolol 50 mg tablet 50 mg PO DAILY@1200 04/20/21 02/14/22 09/08/21 History docusate sodium 100 mg capsule 100 mg PO DAILY@1200 PRN 04/20/21 02/14/22 Unknown History Constipation folic acid 1 mg tablet 1 tab PO QAM 04/20/21 02/14/22 09/08/21 History furosemide 40 mg tablet 1 tab PO DAILY 04/20/21 02/14/22 09/08/21 History lurasidone 60 mg tablet (Latuda) 60 mg PO DAILY@0700 04/20/21 02/14/22 09/08/21 History melatonin 5 mg tablet 10 mg PO BEDTIME PRN insomnia 04/20/21 02/14/22 Unknown History prazosin 5 mg capsule 1 cap PO BEDTIME 04/20/21 02/14/22 09/07/21 History alendronate 70 mg tablet 1 tab PO MO@0600 04/22/21 02/14/22 Unknown History diclofenac sodium 1 % topical gel 2 g topical QID PRN Pain 04/22/21 02/14/22 Unknown History fluticasone propionate 50 1 spray intranasal DAILY 04/22/21 02/14/22 09/08/21 History mcg/actuation nasal spray,suspension hydroxyzine HCl 50 mg tablet 1 tab PO TID PRN Anxiety 04/22/21 02/14/22 Unknown History cholecalciferol (vitamin D3) 50 50 mcg PO DAILY 07/20/21 02/14/22 09/08/21 History mcg (2,000 unit) tablet acetaminophen 500 mg tablet 1,000 mg PO Q6H PRN Pain 09/08/21 02/14/22 Unknown History albuterol sulfate 90 mcg/actuation 2 puff inhalation Q4H PRN 09/08/21 02/14/22 Unknown History aerosol inhaler (ProAir HFA) Respiratory Distress lidocaine 5 % topical patch 1 patch topical DAILY 09/08/21 02/14/22 Unknown History white petrolatum 1 appl topical BID PRN Dry Skin 09/08/21 02/14/22 Unknown History Oxygen Home Use 03/25/22 Unknown History nebulizers 03/25/22 Unknown History quetiapine 25 mg tablet 100 mg PO DAILY PRN anxiety 08/18/22 Unknown History quetiapine 400 mg tablet 600 mg PO BEDTIME 08/18/22 Unknown History cetirizine 10 mg tablet 10 mg PO DAILY PRN allergies 09/08/22 Unknown History divalproex 250 mg tablet,extended 750 mg PO DAILY@1200 09/08/22 Unknown History release 24 hr divalproex 500 mg tablet,extended 1,000 mg PO BEDTIME 09/08/22 Unknown History release 24 hr fluticasone furoate 200 1 ea inhalation DAILY 09/08/22 Unknown History mcg-vilanterol 25 mcg/dose inhalation powder (Breo Ellipta) nicotine (polacrilex) 4 mg gum 4 mg PO Q2H PRN Nicotine Cravings 09/08/22 Unknown History prazosin 1 mg capsule 1 mg PO BEDTIME 09/08/22 09/08/22 Unknown History umeclidinium 62.5 mcg/actuation 1 inh inhalation DAILY 09/08/22 Unknown History blister powder for inhalation (Incruse Ellipta) Physical Exam Vital Signs and Narrative: Vital Signs: Last Vital Signs Temp 99.6 F 09/08/22 20:26 Pulse 103 H 09/08/22 20:26 Resp 18 09/08/22 20:26 BP 104/69 09/08/22 20:26 Pulse Ox 92 09/08/22 20:26 O2 Del Method Venturi Mask 09/08/22 20:26 O2 Flow Rate 7 09/08/22 20:26 Oxygen Flow Rate 8 09/08/22 18:38 BMI result Body Mass Index 72.7 Difficult to assess due to pt's somnolence and body habitus General: Patient is somnolent, eyes closed, responds briefly to verbal stimuli, on BiPAP Resp: Difficult to assess due to pt's body habitus and lying on her back and being on BiPAP CVS: S1, S2, body habitus limits auscultation GI: +BS, NT, obese, no distention Skin: No rash Extremities: No pitting edema Results Labs 09/08/22 18:24 09/08/22 18:24 Labs: Laboratory Results - last 24 hr 09/08/22 09/08/22 09/08/22 18:24 18:24 18:24 MCV MCH MCHC RDW Plt Count MPV Immature Gran % (Auto) Neut % (Auto) Lymph % (Auto) Cuming % (Auto) Eos % (Auto) Baso % (Auto) Lymph # (Auto) Cuming # (Auto) Eos # (Auto) Baso # (Auto) Abs Immat Gran (auto) Absolute Neuts (auto) Absolute Nucleated RBC Nucleated RBC % (auto) PT INR VBG pH VBG pCO2 VBG pO2 VBG HCO3 VBG O2 Saturation VBG Base Excess Anion Gap 20 Estim Creat Clear Calc 146.4 Estimated GFR > 60 Random Glucose 142 H Lactic Acid Calcium 9.9 Magnesium 1.7 Total Bilirubin 0.5 Direct Bilirubin 0.2 AST 30 ALT 17 Alkaline Phosphatase 77 Ammonia 52 Total Creatine Kinase 253 H B-Natriuretic Peptide 65 Total Protein 7.8 Albumin 4.0 Lipase < 4 L Procalcitonin 0.18 Ethyl Alcohol COVID-19 (JEFFRY) COVID-19 Clin Com Influenza Type A (LEOBARDO) Influenza Type B (LEOBARDO) Influenza A & B Note 09/08/22 09/08/22 09/08/22 18:24 18:24 18:24 MCV 84.5 MCH 27.8 MCHC 32.8 RDW 13.8 Plt Count 196 MPV 11.6 Immature Gran % (Auto) 1.4 H Neut % (Auto) 73.8 H Lymph % (Auto) 12.4 L Cuming % (Auto) 11.8 H Eos % (Auto) 0.1 Baso % (Auto) 0.5 Lymph # (Auto) 1.3 Cuming # (Auto) 1.2 Eos # (Auto) 0.0 Baso # (Auto) 0.1 Abs Immat Gran (auto) 0.14 H Absolute Neuts (auto) 7.4 Absolute Nucleated RBC 0.020 H Nucleated RBC % (auto) 0.2 PT 12.8 INR 1.1 VBG pH VBG pCO2 VBG pO2 VBG HCO3 VBG O2 Saturation VBG Base Excess Anion Gap Estim Creat Clear Calc Estimated GFR Random Glucose Lactic Acid 1.9 Calcium Magnesium Total Bilirubin Direct Bilirubin AST ALT Alkaline Phosphatase Ammonia Total Creatine Kinase B-Natriuretic Peptide Total Protein Albumin Lipase Procalcitonin Ethyl Alcohol COVID-19 (JEFFRY) COVID-19 Clin Com Influenza Type A (LEOBARDO) Influenza Type B (LEOBARDO) Influenza A & B Note 09/08/22 09/08/22 09/08/22 18:24 18:26 19:07 MCV MCH MCHC RDW Plt Count MPV Immature Gran % (Auto) Neut % (Auto) Lymph % (Auto) Cuming % (Auto) Eos % (Auto) Baso % (Auto) Lymph # (Auto) Cuming # (Auto) Eos # (Auto) Baso # (Auto) Abs Immat Gran (auto) Absolute Neuts (auto) Absolute Nucleated RBC Nucleated RBC % (auto) PT INR VBG pH 7.57 H VBG pCO2 42 VBG pO2 77 VBG HCO3 39 H VBG O2 Saturation 97.0 VBG Base Excess 15.9 Anion Gap Estim Creat Clear Calc Estimated GFR Random Glucose Lactic Acid Calcium Magnesium Total Bilirubin Direct Bilirubin AST ALT Alkaline Phosphatase Ammonia Total Creatine Kinase B-Natriuretic Peptide Total Protein Albumin Lipase Procalcitonin Ethyl Alcohol < 10 COVID-19 (JEFFRY) COVID-19 Clin Com Influenza Type A (LEOBARDO) Negative Influenza Type B (LEOBARDO) Negative Influenza A & B Note See Note 09/08/22 19:07 MCV MCH MCHC RDW Plt Count MPV Immature Gran % (Auto) Neut % (Auto) Lymph % (Auto) Cuming % (Auto) Eos % (Auto) Baso % (Auto) Lymph # (Auto) Cuming # (Auto) Eos # (Auto) Baso # (Auto) Abs Immat Gran (auto) Absolute Neuts (auto) Absolute Nucleated RBC Nucleated RBC % (auto) PT INR VBG pH VBG pCO2 VBG pO2 VBG HCO3 VBG O2 Saturation VBG Base Excess Anion Gap Estim Creat Clear Calc Estimated GFR Random Glucose Lactic Acid Calcium Magnesium Total Bilirubin Direct Bilirubin AST ALT Alkaline Phosphatase Ammonia Total Creatine Kinase B-Natriuretic Peptide Total Protein Albumin Lipase Procalcitonin Ethyl Alcohol COVID-19 (JEFFRY) Negative COVID-19 Clin Com See Note Influenza Type A (LEOBARDO) Influenza Type B (LEOBARDO) Influenza A & B Note Imaging Radiologist's Impressions: Impressions Chest X-Ray 09/08/22 18:44 IMPRESSION: Very limited essentially nondiagnostic examination as above, recommend correlation with the already ordered CTA of the chest. Assessment and Plan (1) Pneumonia: Qualifiers: Laterality: left Lung location: unspecified part of lung Pneumonia type: due to unspecified organism Qualified Code(s): J18.9 - Pneumonia, unspecified organism Status: Acute (2) Morbid (severe) obesity due to excess calories: Status: Acute (3) Acute respiratory failure with hypoxia: Status: Acute Plan Pt is a 52-year-old female with a PMH significant for?COPD/restrictive lung disease on Trilogy, HTN, HLD, insulin-dependent diabetes type 2, morbid obesity, MORGAN, schizoaffective disorder, hypothyroidism, and PTSD who presents to the ED with?after a fall at and found to be satting at 76% on 10 L NC by EMS. Pt will be admitted to the hospital for acute on chronic hypoxic respiratory failure in the setting of likely pneumonia. Acute on chronic hypoxic respiratory failure in the setting of likely pneumonia Patient found satting at 76% O2 on 10 L home O2 by EMS CTA negative for pulmonary embolism, but showed mild air trapping and ground-glass changes in the left upper lobe Patient meets sepsis criteria: Fever, tachypnea, tachycardia Patient given IVF in the ED, and started on broad-spectrum antibiotics Will treat with ceftriaxone and azithromycin, started 09/08/2022 Patient placed on BiPAP, will continue BiPAP at night and as needed Patient on home O2: 10L with ambulation and 5L at rest DuoNebs p.r.n. Pulmonology consult Follow cultures UA still pending Metabolic encephalopathy Likely secondary to pneumonia Treat as above Monitor mentation Hyponatremia Sodium 122 at time of admission Patient given IVF in ED Will check urine sodium, osmolality, and creatinine Follow BMP Insulin-dependent diabetes type [address] Place on sliding scale, Lantus Diabetic diet Hypothyroidism Continue levothyroxine HTN Continue home meds HLD Continue statin Schizoaffective disorder Continue Depakote, benztropine, amitriptyline, Latuda, Seroquel Full Code Attending:?Dr. Perera DVT Prophylaxis: Lovenox Pt will require a hospitalization of at least two nights for treatment of? with . Time Spent With Patient Time: Total time managing care of this patient today ____ minutes. Quality Stroke Does the patient have a stroke diagnosis?: No VTE Prior VTE?: No VTE Risk Level:: Medical - moderate - high VTE Device Contraindication: Treatment Not Indicated VTE Drug Contraindication: N/A - Med Ordered
--- NOTE | 2022-09-08 21:13 | PC.NURSE ---
Pt placed on CPAP per respiratory at this time.
[2022-09-08] MEDS: 0.9 % Sodium Chloride 500 ML IV (21:21)
[2022-09-08 22:09] LABS: Osmolality, Serum 261 mosm/kg (281-305)
--- NOTE | 2022-09-08 22:48 | PHA.MEDREC ---
Pharmacy Consult ? Medication Reconciliation Pharmacy has completed the medication reconciliation. Done using claim history and med box claims. patient unable to speak at time of med rec. called contacts with no response. pay attention to the depakote and seroquel rxs since there are multiple. Claim history was complete from [facility]
[2022-09-08] MEDS: Enoxaparin Sodium 40 MG/0.4 ML SYRINGE SUBCUT (23:35)
[2022-09-08] MEDS: 0.9 % Sodium Chloride Flush 3 ML SYRINGE IVFLUSH (23:37)
[2022-09-09] VITALS (9 sets, daily range): BP systolic 121–137; BP diastolic 62–83; PULSE 70–113; RESP 12–24; TEMP 35.9–37.1; O2SAT 91–97; BMI 72.6
[2022-09-09 04:21] LABS: Amphetamine Screen Urine Not Detected (Not Detect); Barbiturates, Urine Not Detected (Not Detect); Benzodiazepines Screen Urine Not Detected (Not Detect); Cannabinoid Screen Urine Not Detected (Not Detect); Cocaine Screen Urine Not Detected (Not Detect); Fentanyl, urine Not Detected (Not Detect); Opiate Screen Urine Not Detected (Not Detect); Phencyclidine Screen Urine Not Detected (Not Detect)
[2022-09-09 04:27] LABS: Creatinine Urine 22.01 mg/dL; Sodium Urine Random < 20.0 mmol/L
[2022-09-09 05:37] LABS: Osmolality Urine 218 mosm/kg (373-1093)
[2022-09-09 05:59] LABS: MANUAL DIFF FLAG NO
[2022-09-09 06:16] LABS: Anion Gap 14 (12-20); Blood Urea Nitrogen 12 mg/dL (9-16); Calcium 9.6 mg/dL (8.4-10.2); Carbon Dioxide 36 mmol/L (22-29); Chloride 80 mmol/L (96-108); Estimated Glomerular Filt Rate > 60; Glucose Random 252 mg/dL (60-115); Potassium 4.4 mmol/L (3.3-5.1); Sodium 126 mmol/L (135-145)
[2022-09-09 06:23] LABS: Basophils Percent Auto 0.4 % (0-2); Eosinophils Absolute Auto 0.1 X10*3/uL (0.0-0.4); Eosinophils Percent Auto 0.8 % (0-4); Hematocrit 33.6 % (37.0-47.0); Imm Gran Abs Auto 0.22 X10*3/uL (0.00-0.03); Imm Gran Pct Auto 2.4 % (0.0-0.4); Lymphocytes Percent Auto 10.7 % (20-40); Mean Corpuscular HGB Conc 32.7 g/dl (31.0-35.0); Mean Corpuscular Hemoglobin 28.3 pg (27.0-33.0); Mean Corpuscular Volume 86.4 fL (80.0-98.0); Mean Platelet Volume 11.7 fL (9.4-12.3); Monocytes Absolute Auto 0.3 X10*3/uL (0.1-1.2); Monocytes Percent Auto 3.1 % (2-11); Neutrophils Absolute Auto 7.5 x10*3/uL (2.0-8.3); Neutrophils Percent Auto 82.6 % (45-73); Platelet Count 200 X10*3/uL (160-400); Red Blood Count 3.89 X10*6/uL (4.20-5.50); Red Cell Distribution Width 14.1 % (11.0-16.0)
[2022-09-09 07:21] LABS: Glucose, Whole Blood 260 mg/dL (60-115)
--- NOTE | 2022-09-09 08:17 | PC.RT ---
RT called to assess pt currently on bipap. Pt was placed on bipap in ER for hypoxia. Continued to floor and overnight on fio2 of 60%. Concerns of bipap being used in a rescue capacity to be addressed. Pt was awake and coop, aware of her surroundings. Home baseline o2 use ranges from 5 lpm n/c to 10lpm. Given the nature of these flows pt was trialed off on 7 lpm oxymask and linda well with spo2 in the mid 90's. Pt was noted to desat as she would remove oxymask to eat. Oxymask then transitioned to 8 lpm luke cannula with noted desaturations to the low 80s while eating. Luke increased to [address] Lau contacted.
[2022-09-09] MEDS: Insulin Lispro 100 UNIT/ML 3 ML VIAL SUBCUT ×4 (08:30→20:48)
[2022-09-09] MEDS: 0.9 % Sodium Chloride Flush 3 ML SYRINGE IVFLUSH ×2 (08:32→16:58)
--- NOTE | 2022-09-09 08:32 | PM.CNPUL ---
History of Present Illness History of Present Illness Consult date: 09/09/22 Chief complaint: dyspnea Review of Systems Review of Systems: Constitutional: No Fever, No Chills ENT/Mouth: No sore throat, No Rhinorrhea, No Swallowing Difficulty Eyes: No Eye Pain, No Swelling, No Redness Cardiovascular: + Chest Pain, + SOB, + Orthopnea, + Edema Respiratory: + Cough, No Sputum, No Wheezing, + dyspnea Gastrointestinal: No Nausea, No Vomiting, No Diarrhea, No abdominal Pain Genitourinary: No Dysuria, No Urinary Frequency, No Hematuria Musculoskeletal: No joint pain, No Myalgias Skin: No Skin Lesions, No rash Neuro: No Weakness, No Numbness, No Dizziness, No Headache Psych:+ Anxiety/Panic, No Depression Heme/Lymph: No Bruising, No Lymphadenopathy Endocrine: No Polyuria, No Polydipsia [facility] Past Medical History Medical History AAA (abdominal aortic aneurysm) without rupture Acute and chronic respiratory failure with hypoxia ADHD Aortic aneurysm Arthritis Asthma Back pain Chronic respiratory failure Chronic restrictive lung disease COPD (chronic obstructive pulmonary disease) Depression Diabetes Diabetes DM2 (diabetes mellitus, type 2) Fibula fracture Gallstone GERD (gastroesophageal reflux disease) Goiter Hepatitis Hernia History of posttraumatic stress disorder (PTSD) HLD (hyperlipidemia) HLD (hyperlipidemia) HTN (hypertension) Hx of fracture of patella Hypothyroidism Hypothyroidism Migraine Morbid (severe) obesity due to excess calories Morbid obesity Multinodular thyroid Myocardial infarction Obesity due to excess calories MORGAN on CPAP Pneumonia Pneumonitis PTSD (post-traumatic stress disorder) Pulmonary nodules Schizo affective schizophrenia Sleep apnea T2DM (type 2 diabetes mellitus) Umbilical hernia Vitamin D deficiency Family History Family History Father Unknown family medical history Mother Unknown family medical history Sister Ovarian cancer Son No problems noted. Son Depression Son Asthma Bipolar 1 disorder ADHD Daughter No problems noted. Daughter Unknown family medical history Daughter Unknown family medical history Daughter No problems noted. Surgical History Surgical History History of incision and drainage Hx of knee surgery Hx of tubal ligation Tubal ligation status Social History Social History Household Members: None Caregiver staying overnight: No Housing: Apartment Are you a primary rn progressive care unit to a significant other at home: No Do you presently have visiting nurse or other home services: No 75 years or older and lives alone: No Unable to assess alcohol history related to: Unable to respond Alcohol intake: never Patient Tobacco Use Status: Current everyday Tobacco user Tobacco use type: Cigarette Cigarette Packs Per Day: 6 Years Smoked: 35 e-Cigarette/Vaping Use: Currently Using Substance Use Type: Marijuana Advance Directives Date on File: 09/13/21 service: No Current occupational status: unemployed Meds Allergies Allergy/AdvReac Type Severity Reaction Status Date / Time metformin Allergy Intermediate Diarrhea Verified 08/18/22 15:01 tetracycline Allergy Intermediate hives Verified 08/18/22 15:01 Latex, Natural Rubber Allergy Rash Verified 08/18/22 15:01 haloperidol [From HALDOL] AdvReac Intermediate Irritable Verified 08/18/22 15:01 duramorph/derivative or Allergy Intermediate hives Uncoded 08/18/22 15:01 morphi Active Medications: Current Medications Acetaminophen (Acetaminophen 325 Mg Tablet) 650 mg PO Q6H PRN PRN Reason: Pain, Mild (Pain Scale 1-3) Dextrose (Dextrose 50 % 25 Gm/50 Ml Syringe) 25 gm IVPUSH Q15M PRN; Protocol PRN Reason: per Hypoglycemia Standing Ord. Enoxaparin Sodium (Enoxaparin Sodium 40 Mg/0.4 Ml Syringe) 40 mg SUBCUT Q12H [facility] Last Admin: 09/08/22 23:35 Dose: 40 mg Glucose (Glucose Gel 15 Gm Gel..Gram.) 15 gm PO Q15M PRN; Protocol PRN Reason: per Hypoglycemia Standing Ord. Ceftriaxone Sodium 1 gm/ (Sodium Chloride) 50 mls @ 100 mls/hr IV Q24H [facility] Azithromycin 500 mg/ Sodium (Chloride) 250 mls @ 125 mls/hr IV Q24H [facility] Insulin Human Lispro (Insulin Lispro 100 Unit/Ml 3 Ml Vial) 0 unit SUBCUT QIDACHS [facility]; Protocol Last Admin: 09/09/22 08:30 Dose: 6 unit Melatonin (Melatonin 3 Mg Tablet) 6 mg PO BEDTIME PRN PRN Reason: Insomnia Ondansetron HCl (Ondansetron Hcl 4 Mg/2 Ml Vial) 4 mg IVPUSH Q8H PRN PRN Reason: Nausea and Vomiting Pharmacy Consult (Consult Rx Perform Med Rec) 1 each MISCELLANE ONCE PRN PRN Reason: Consult order Sodium Chloride (0.9 % Sodium Chloride Flush 3 Ml Syringe) [facility] Last Admin: 09/09/22 08:32 Dose: 3 ml Home Medications Medication Instructions Recorded Confirmed Last Taken Type amitriptyline 10 mg tablet 10 mg PO BEDTIME 01/10/20 02/14/22 09/07/21 History benztropine 1 mg tablet 1 mg PO BID@1200,2100 01/10/20 02/14/22 09/08/21 History lisinopril 10 mg tablet 10 mg PO BEDTIME 01/10/20 02/14/22 09/07/21 History montelukast 10 mg tablet 10 mg PO BEDTIME 01/10/20 02/14/22 09/07/21 History multivitamin 1 tab PO DAILY 01/10/20 02/14/22 09/08/21 History thiamine HCl (vitamin B1) 100 mg 100 mg PO DAILY@1200 01/10/20 02/14/22 09/08/21 History tablet atenolol 50 mg tablet 50 mg PO DAILY@1200 04/20/21 02/14/22 09/08/21 History docusate sodium 100 mg capsule 100 mg PO DAILY@1200 PRN 04/20/21 02/14/22 Unknown History Constipation folic acid 1 mg tablet 1 tab PO QAM 04/20/21 02/14/22 09/08/21 History furosemide 40 mg tablet 1 tab PO DAILY 04/20/21 02/14/22 09/08/21 History lurasidone 60 mg tablet (Latuda) 60 mg PO DAILY@0700 04/20/21 02/14/22 09/08/21 History melatonin 5 mg tablet 10 mg PO BEDTIME PRN insomnia 04/20/21 02/14/22 Unknown History prazosin 5 mg capsule 1 cap PO BEDTIME 04/20/21 02/14/22 09/07/21 History alendronate 70 mg tablet 1 tab PO MO@0600 04/22/21 02/14/22 Unknown History diclofenac sodium 1 % topical gel 2 g topical QID PRN Pain 04/22/21 02/14/22 Unknown History fluticasone propionate 50 1 spray intranasal DAILY 04/22/21 02/14/22 09/08/21 History mcg/actuation nasal spray,suspension hydroxyzine HCl 50 mg tablet 1 tab PO TID PRN Anxiety 04/22/21 02/14/22 Unknown History cholecalciferol (vitamin D3) 50 50 mcg PO DAILY 07/20/21 02/14/22 09/08/21 History mcg (2,000 unit) tablet acetaminophen 500 mg tablet 1,000 mg PO Q6H PRN Pain 09/08/21 02/14/22 Unknown History albuterol sulfate 90 mcg/actuation 2 puff inhalation Q4H PRN 09/08/21 02/14/22 Unknown History aerosol inhaler (ProAir HFA) Respiratory Distress lidocaine 5 % topical patch 1 patch topical DAILY 09/08/21 02/14/22 Unknown History white petrolatum 1 appl topical BID PRN Dry Skin 09/08/21 02/14/22 Unknown History Oxygen Home Use 03/25/22 Unknown History nebulizers 03/25/22 Unknown History quetiapine 25 mg tablet 100 mg PO DAILY PRN anxiety 08/18/22 Unknown History quetiapine 400 mg tablet 600 mg PO BEDTIME 08/18/22 Unknown History cetirizine 10 mg tablet 10 mg PO DAILY PRN allergies 09/08/22 Unknown History divalproex 250 mg tablet,extended 750 mg PO DAILY@1200 09/08/22 Unknown History release 24 hr divalproex 500 mg tablet,extended 1,000 mg PO BEDTIME 09/08/22 Unknown History release 24 hr fluticasone furoate 200 1 ea inhalation DAILY 09/08/22 Unknown History mcg-vilanterol 25 mcg/dose inhalation powder (Breo Ellipta) nicotine (polacrilex) 4 mg gum 4 mg PO Q2H PRN Nicotine Cravings 09/08/22 Unknown History prazosin 1 mg capsule 1 mg PO BEDTIME 09/08/22 09/08/22 Unknown History umeclidinium 62.5 mcg/actuation 1 inh inhalation DAILY 09/08/22 Unknown History blister powder for inhalation (Incruse Ellipta) Physical Exam Vital Signs: Vital Signs: Last Vital Signs Temp 98.8 F 09/09/22 07:14 Pulse 93 09/09/22 07:14 Resp 12 09/09/22 07:14 BP 121/77 09/09/22 07:14 Pulse Ox 97 09/09/22 07:14 O2 Del Method BiPAP 09/09/22 07:14 O2 Flow Rate 7 09/08/22 20:26 Oxygen Flow Rate 8 09/08/22 18:38 BMI result Body Mass Index 72.6 Const: General: tired appearing Neck: Neck: Yes trachea midline and Yes supple Chest: Chest palpation & inspection: normal inspection of the chest Resp: Effort & Inspection: normal respiratory effort and other (on BIPAP) Auscultation: diminished lung sounds Cardio: Heart sounds: S1 normal heart sound present and S2 normal heart sound present GI: Inspection: Yes obesity Palpation (GI): Soft to palpation Skin: General skin exam: no rashes or lesions noted Extrem: General: No clubbing and No cyanosis Results Laboratory Findings 09/09/22 05:34 09/09/22 05:34 ABG, PT/INR, D-dimer: PT/INR, D-dimer PT 12.8 SEC (10.0-13.1) 09/08/22 18:24 INR 1.1 (0.9-1.1) 09/08/22 18:24 Abnormal lab findings: Abnormal Labs 09/08/22 09/08/22 09/08/22 18:24 18:24 18:26 RBC 4.07 L Hgb 11.3 L Hct 34.4 L Immature Gran % (Auto) 1.4 H Neut % (Auto) 73.8 H Lymph % (Auto) 12.4 L [place] % (Auto) 11.8 H Lymph # (Auto) Abs Immat Gran (auto) 0.14 H Absolute Nucleated RBC 0.020 H VBG pH 7.57 H VBG HCO3 39 H Sodium 122 L Chloride 76 L Carbon Dioxide 31 H POC Glucose Random Glucose 142 H Osmolality Total Creatine Kinase 253 H Lipase < 4 L Urine Osmolality 09/08/22 09/09/22 09/09/22 21:21 03:48 05:34 RBC 3.89 L Hgb 11.0 L Hct 33.6 L Immature Gran % (Auto) 2.4 H Neut % (Auto) 82.6 H Lymph % (Auto) 10.7 L [place] % (Auto) Lymph # (Auto) 1.0 L Abs Immat Gran (auto) 0.22 H Absolute Nucleated RBC VBG pH VBG HCO3 Sodium Chloride Carbon Dioxide POC Glucose Random Glucose Osmolality 261 L Total Creatine Kinase Lipase Urine Osmolality 218 L 06/23/23 06/23/23 05:34 07:09 RBC Hgb Hct Immature Gran % (Auto) Neut % (Auto) Lymph % (Auto) [place] % (Auto) Lymph # (Auto) Abs Immat Gran (auto) Absolute Nucleated RBC VBG pH VBG HCO3 Sodium 126 L Chloride 80 L Carbon Dioxide 36 H POC Glucose 260 H Random Glucose 252 H Osmolality Total Creatine Kinase Lipase Urine Osmolality Assessment and Plan (1) Acute and chronic respiratory failure: Qualifiers: Respiratory failure complication: hypoxia Qualified Code(s): J96.21 - Acute and chronic respiratory failure with hypoxia Status: Acute (2) Acute febrile illness: Status: Acute (3) Pneumonia: Qualifiers: Laterality: left Lung location: unspecified part of lung Pneumonia type: due to unspecified organism Qualified Code(s): J18.9 - Pneumonia, unspecified organism Status: Acute (4) COPD (chronic obstructive pulmonary disease): Status: Acute Plan The patient is presenting with a febrile illness and syncope fall found to have acute on chronic hypoxic respiratory failure. CT scan suggesting airspace disease on the left side although her CO2 has been at baseline. Today she is sleepy while on BiPAP physical to assess her mental status at this time. Currently on treatment for community-acquired pneumonia. REC: Continue abx regimen Respiratory viral panel and bloodwork requested continue BIPAP while sleeping reassess mental status, if no better then recheck ABG Assess for other infectious etiologies if no better Time Spent With Patient Time: Total time managing care of this patient today ____ minutes. Procedures Date of Service Date of Service: 09/09/22
--- NOTE | 2022-09-09 09:42 | MHC.CLN ---
NUTRITION DIABETIC THERAPEUTIC DIET ADDED. DIET=DIABETIC 2000 KCALS, CARDIAC.
[2022-09-09] MEDS: Enoxaparin Sodium 40 MG/0.4 ML SYRINGE SUBCUT ×2 (10:42→22:31)
--- NOTE | 2022-09-09 10:46 | MHC.CM.PN ---
PATIENT HAS [employer] SERVICES IN THE HOME. NO LONGER HAS A BETTER LIFE VNA, SHE FEELS SHE IS ABLE TO MANAGE HER OWN MEDICATIONS. SHE IS OPEN TO SERVICES IF INDICATED AT TIME OF DISCHARGE. PATIENT DOES RELY ON A CPAP BUT DOES NOT RECALL HER SETTINGS. HER MOBILITY SCOOTER IS IN ROOM SHE PLANS TO USE THIS TO GET HOME AT TIME OF DC. [employer] ALSO IN ROOM. COPY OF HCP REQUESTED PATIENT STATES THAT SHE USES [facility] FOR HER MEDICAL NEEDS.
[2022-09-09 11:12] LABS: Glucose, Whole Blood 367 mg/dL (60-115)
[2022-09-09] MEDS: Acetaminophen 325 MG TABLET 650 MG PO ×2 (11:48→20:46)
--- NOTE | 2022-09-09 15:03 | P.PNIM_ITS ---
Subjective Subjective Date of Service: 09/09/22 Interval History: Tolerating BiPAP overnight. After review of chart; patient at baseline appears Review of Systems Denies chest pain Denies shortness of breath Denies nausea vomiting diarrhea Denies fever chills Physical Exam Vital Signs: Vital Signs: Last Vital Signs Temp 98.1 F 09/09/22 12:00 Pulse 99 09/09/22 12:00 Resp 24 H 09/09/22 12:00 BP 137/83 09/09/22 12:00 Pulse Ox 94 09/09/22 12:00 O2 Del Method Nasal Cannula 09/09/22 12:00 O2 Flow Rate 10 09/09/22 12:00 Oxygen Flow Rate 8 09/08/22 18:38 BMI result Body Mass Index 72.6 Const: Other: Obese no acute distress Resp: Other: Diminished bilaterally Cardio: Other: No S4; positive S1-S2; no S3 murmurs rubs or gallops Extrem: Other: Positive edema bilaterally Objective Data Active Medications Acetaminophen (Acetaminophen 325 Mg Tablet) 650 mg PO Q6H PRN PRN Reason: Pain, Mild (Pain Scale 1-3) Last Admin: 09/09/22 11:48 Dose: 650 mg Documented By: TATO Dextrose (Dextrose 50 % 25 Gm/50 Ml Syringe) 25 gm IVPUSH Q15M PRN; Protocol PRN Reason: per Hypoglycemia Standing Ord. Enoxaparin Sodium (Enoxaparin Sodium 40 Mg/0.4 Ml Syringe) 40 mg SUBCUT Q12H COUNT INCLUDES THE [facility] Last Admin: 09/09/22 10:42 Dose: 40 mg Documented By: TATO Glucose (Glucose Gel 15 Gm Gel..Gram.) 15 gm PO Q15M PRN; Protocol PRN Reason: per Hypoglycemia Standing Ord. Ceftriaxone Sodium 1 gm/ (Sodium Chloride) 50 mls @ 100 mls/hr IV Q24H SHARI Azithromycin 500 mg/ Sodium (Chloride) 250 mls @ 125 mls/hr IV Q24H COUNT INCLUDES THE [facility] Insulin Human Lispro (Insulin Lispro 100 Unit/Ml 3 Ml Vial) 0 unit SUBCUT QIDACHS COUNT INCLUDES THE [facility]; Protocol Last Admin: 09/09/22 11:48 Dose: 10 unit Documented By: TATO Melatonin (Melatonin 3 Mg Tablet) 6 mg PO BEDTIME PRN PRN Reason: Insomnia Ondansetron HCl (Ondansetron Hcl 4 Mg/2 Ml Vial) 4 mg IVPUSH Q8H PRN PRN Reason: Nausea and Vomiting Pharmacy Consult (Consult Rx Perform Med Rec) 1 each MISCELLANE ONCE PRN PRN Reason: Consult order Sodium Chloride (0.9 % Sodium Chloride Flush 3 Ml Syringe) [facility] Last Admin: 09/09/22 08:32 Dose: 3 ml Documented By: TATO Sodium Chloride (0.9 % Sodium Chloride Flush 3 Ml Syringe) 3 ml IVFLUSH [facility] Labs 09/09/22 05:34 09/09/22 05:34 Labs: Laboratory Results - last 24 hr 09/08/22 09/08/22 09/08/22 18:24 18:24 18:24 MCV MCH MCHC RDW Plt Count MPV Immature Gran % (Auto) Neut % (Auto) Lymph % (Auto) [place] % (Auto) Eos % (Auto) Baso % (Auto) Lymph # (Auto) [place] # (Auto) Eos # (Auto) Baso # (Auto) Abs Immat Gran (auto) Absolute Neuts (auto) Absolute Nucleated RBC Nucleated RBC % (auto) PT INR VBG pH VBG pCO2 VBG pO2 VBG HCO3 VBG O2 Saturation VBG Base Excess Anion Gap 20 Estim Creat Clear Calc 146.4 Estimated GFR > 60 POC Glucose Random Glucose 142 H Osmolality Lactic Acid Calcium 9.9 Magnesium 1.7 Total Bilirubin 0.5 Direct Bilirubin 0.2 AST 30 ALT 17 Alkaline Phosphatase 77 Ammonia 52 Total Creatine Kinase 253 H B-Natriuretic Peptide 65 Total Protein 7.8 Albumin 4.0 Lipase < 4 L Procalcitonin 0.18 Urine Osmolality Ur Random Sodium Urine Creatinine Urine Opiates Screen Urine Fentanyl Screen Ur Barbiturates Screen Ur Phencyclidine Scrn Ur Amphetamines Screen U Benzodiazepines Scrn Urine Cocaine Screen U Marijuana (THC) Screen Ethyl Alcohol COVID-19 (JEFFRY) COVID-19 Clin Com Influenza Type A (LEOBARDO) Influenza Type B (LEOBARDO) Influenza A & B Note 09/08/22 09/08/22 09/08/22 18:24 18:24 18:24 MCV 84.5 MCH 27.8 MCHC 32.8 RDW 13.8 Plt Count 196 MPV 11.6 Immature Gran % (Auto) 1.4 H Neut % (Auto) 73.8 H Lymph % (Auto) 12.4 L [place] % (Auto) 11.8 H Eos % (Auto) 0.1 Baso % (Auto) 0.5 Lymph # (Auto) 1.3 [place]olls # (Auto) 1.2 Eos # (Auto) 0.0 Baso # (Auto) 0.1 Abs Immat Gran (auto) 0.14 H Absolute Neuts (auto) 7.4 Absolute Nucleated RBC 0.020 H Nucleated RBC % (auto) 0.2 PT 12.8 INR 1.1 VBG pH VBG pCO2 VBG pO2 VBG HCO3 VBG O2 Saturation VBG Base Excess Anion Gap Estim Creat Clear Calc Estimated GFR POC Glucose Random Glucose Osmolality Lactic Acid 1.9 Calcium Magnesium Total Bilirubin Direct Bilirubin AST ALT Alkaline Phosphatase Ammonia Total Creatine Kinase B-Natriuretic Peptide Total Protein Albumin Lipase Procalcitonin Urine Osmolality Ur Random Sodium Urine Creatinine Urine Opiates Screen Urine Fentanyl Screen Ur Barbiturates Screen Ur Phencyclidine Scrn Ur Amphetamines Screen U Benzodiazepines Scrn Urine Cocaine Screen U Marijuana (THC) Screen Ethyl Alcohol COVID-19 (JEFFRY) COVID-19 Clin Com Influenza Type A (LEOBARDO) Influenza Type B (LEOBARDO) Influenza A & B Note 09/08/22 09/08/22 09/08/22 18:24 18:26 19:07 MCV MCH MCHC RDW Plt Count MPV Immature Gran % (Auto) Neut % (Auto) Lymph % (Auto) [place] % (Auto) Eos % (Auto) Baso % (Auto) Lymph # (Auto) [place] # (Auto) Eos # (Auto) Baso # (Auto) Abs Immat Gran (auto) Absolute Neuts (auto) Absolute Nucleated RBC Nucleated RBC % (auto) PT INR VBG pH 7.57 H VBG pCO2 42 VBG pO2 77 VBG HCO3 39 H VBG O2 Saturation 97.0 VBG Base Excess 15.9 Anion Gap Estim Creat Clear Calc Estimated GFR POC Glucose Random Glucose Osmolality Lactic Acid Calcium Magnesium Total Bilirubin Direct Bilirubin AST ALT Alkaline Phosphatase Ammonia Total Creatine Kinase B-Natriuretic Peptide Total Protein Albumin Lipase Procalcitonin Urine Osmolality Ur Random Sodium Urine Creatinine Urine Opiates Screen Urine Fentanyl Screen Ur Barbiturates Screen Ur Phencyclidine Scrn Ur Amphetamines Screen U Benzodiazepines Scrn Urine Cocaine Screen U Marijuana (THC) Screen Ethyl Alcohol < 10 COVID-19 (JEFFRY) COVID-19 Clin Com Influenza Type A (LEOBARDO) Negative Influenza Type B (LEOBARDO) Negative Influenza A & B Note See Note 09/08/22 09/08/22 09/09/22 19:07 21:21 03:48 MCV MCH MCHC RDW Plt Count MPV Immature Gran % (Auto) Neut % (Auto) Lymph % (Auto) [place] % (Auto) Eos % (Auto) Baso % (Auto) Lymph # (Auto) [place] # (Auto) Eos # (Auto) Baso # (Auto) Abs Immat Gran (auto) Absolute Neuts (auto) Absolute Nucleated RBC Nucleated RBC % (auto) PT INR VBG pH VBG pCO2 VBG pO2 VBG HCO3 VBG O2 Saturation VBG Base Excess Anion Gap Estim Creat Clear Calc Estimated GFR POC Glucose Random Glucose Osmolality 261 L Lactic Acid Calcium Magnesium Total Bilirubin Direct Bilirubin AST ALT Alkaline Phosphatase Ammonia Total Creatine Kinase B-Natriuretic Peptide Total Protein Albumin Lipase Procalcitonin Urine Osmolality 218 L Ur Random Sodium Urine Creatinine Urine Opiates Screen Urine Fentanyl Screen Ur Barbiturates Screen Ur Phencyclidine Scrn Ur Amphetamines Screen U Benzodiazepines Scrn Urine Cocaine Screen U Marijuana (THC) Screen Ethyl Alcohol COVID-19 (JEFFRY) Negative COVID-19 Clin Com See Note Influenza Type A (LEOBARDO) Influenza Type B (LEOBARDO) Influenza A & B Note 09/09/22 09/09/22 09/09/22 03:48 03:48 05:34 MCV 86.4 MCH 28.3 MCHC 32.7 RDW 14.1 Plt Count 200 MPV 11.7 Immature Gran % (Auto) 2.4 H Neut % (Auto) 82.6 H Lymph % (Auto) 10.7 L [place] % (Auto) 3.1 Eos % (Auto) 0.8 Baso % (Auto) 0.4 Lymph # (Auto) 1.0 L [place] # (Auto) 0.3 Eos # (Auto) 0.1 Baso # (Auto) 0.0 Abs Immat Gran (auto) 0.22 H Absolute Neuts (auto) 7.5 Absolute Nucleated RBC 0.000 Nucleated RBC % (auto) 0.0 PT INR VBG pH VBG pCO2 VBG pO2 VBG HCO3 VBG O2 Saturation VBG Base Excess Anion Gap Estim Creat Clear Calc Estimated GFR POC Glucose Random Glucose Osmolality Lactic Acid Calcium Magnesium Total Bilirubin Direct Bilirubin AST ALT Alkaline Phosphatase Ammonia Total Creatine Kinase B-Natriuretic Peptide Total Protein Albumin Lipase Procalcitonin Urine Osmolality Ur Random Sodium < 20.0 Urine Creatinine 22.01 Urine Opiates Screen Not Detected Urine Fentanyl Screen Not Detected Ur Barbiturates Screen Not Detected Ur Phencyclidine Scrn Not Detected Ur Amphetamines Screen Not Detected U Benzodiazepines Scrn Not Detected Urine Cocaine Screen Not Detected U Marijuana (THC) Screen Not Detected Ethyl Alcohol COVID-19 (JEFFRY) COVID-19 Clin Com Influenza Type A (LEOBARDO) Influenza Type B ([facility]OBARDO) Influenza A & B Note 09/09/22 09/09/22 09/09/22 05:34 07:09 11:07 MCV MCH MCHC RDW Plt Count MPV Immature Gran % (Auto) Neut % (Auto) Lymph % (Auto) [place] % (Auto) Eos % (Auto) Baso % (Auto) Lymph # (Auto) [place] # (Auto) Eos # (Auto) Baso # (Auto) Abs Immat Gran (auto) Absolute Neuts (auto) Absolute Nucleated RBC Nucleated RBC % (auto) PT INR VBG pH VBG pCO2 VBG pO2 VBG HCO3 VBG O2 Saturation VBG Base Excess Anion Gap 14 Estim Creat Clear Calc 159.0 Estimated GFR > 60 POC Glucose 260 H 367 H* Random Glucose 252 H Osmolality Lactic Acid Calcium 9.6 Magnesium Total Bilirubin Direct Bilirubin AST ALT Alkaline Phosphatase Ammonia Total Creatine Kinase B-Natriuretic Peptide Total Protein Albumin Lipase Procalcitonin Urine Osmolality Ur Random Sodium Urine Creatinine Urine Opiates Screen Urine Fentanyl Screen Ur Barbiturates Screen Ur Phencyclidine Scrn Ur Amphetamines Screen U Benzodiazepines Scrn Urine Cocaine Screen U Marijuana (THC) Screen Ethyl Alcohol COVID-19 (JEFFRY) COVID-19 Clin Com Influenza Type A (LEOBARDO) Influenza Type B (LEOBARDO) Influenza A & B Note Microbiology Microbiology Results: Microbiology 09/08/22 18:23 Blood Culture - Preliminary Blood - Venous Prelim: GNR Gram Stain only 09/08/22 18:23 Blood Culture - Preliminary Blood - Venous Prelim: GNR Gram Stain only Assessment and Plan (1) Pneumonia: Status: Acute (2) Acute and chronic respiratory failure: Status: Acute (3) Acute hyponatremia: Status: Acute (4) T2DM (type 2 diabetes mellitus): Status: Acute Plan Pt is a 52-year-old female with a PMH significant for?COPD/restrictive lung disease on Trilogy, HTN, HLD, insulin-dependent diabetes type 2, morbid obesity, MORGAN, schizoaffective disorder, hypothyroidism, and PTSD who presents to the ED with?after a fall at and found to be satting at 76% on 10 L NC by EMS. Pt will be admitted to the hospital for acute on chronic hypoxic respiratory failure in the setting of likely pneumonia. Of note patient is on 5 L O2 at rest at home and can be on 10 L with ambulation. 1.Acute on chronic hypoxic respiratory in backdrop of pneumonia -ceftriaxone/azithromycin (2) -continue supplemental O2 L flow as per home -Avisbs p.r.n. -continue BiPAP at night 2.Hyponatremia -self correcting -follow renals/divalents 3.Insulin-dependent diabetes type 2 -Resume home insulin dosing -lispro correctional scale -adjust as indicated 4.HTN -acceptable control on current therapies - 5.Schizoaffective disorder -Continue Depakote, benztropine, amitriptyline, Latuda, Seroquel Full Code Lovenox Patient will require ongoing hospitalization for IV antibiotics to treat community-acquired pneumonia Time Spent With Patient Time: Total time managing care of this patient today ____ minutes. Quality Stroke Does the patient have a stroke diagnosis?: No VTE Prior VTE?: No VTE Risk Level:: Medical - moderate - high VTE Device Contraindication: Treatment Not Indicated VTE Drug Contraindication: N/A - Med Ordered
[2022-09-09 15:55] LABS: Glucose, Whole Blood 338 mg/dL (60-115)
[2022-09-09 16:14] LABS: Appearance Urine Clear; Color Urine Yellow; Glucose Urine UA >=1000 mg/dL (Negative); Leukocyte Esterase Urine Negative (Negative); Nitrite Urine Negative (Negative); UMIC TRIGGER UACC YES; Urine Blood Trace (Negative); Urine Ketones Trace mg/dL (Negative); Urine Protein Negative (Neg-Trace)
[2022-09-09 17:25] LABS: Chloride 82 mmol/L (96-108); Potassium 4.1 mmol/L (3.3-5.1); Sodium 132 mmol/L (135-145)
[2022-09-09 17:26] LABS: Adenovirus PCR Not Detected (Not Detect.); Bordetella parapertussis PCR Not Detected (Not Detect.); Bordetella pertussis PCR Not Detected (Not Detect.); Chlamydia pneumoniae PCR Not Detected (Not Detect.); Coronavirus 229E PCR Not Detected (Not Detect.); Coronavirus HKU1 PCR Not Detected (Not Detect.); Coronavirus NL63 PCR Not Detected (Not Detect.); Coronavirus OC43 PCR Not Detected (Not Detect.)
[2022-09-09 17:27] LABS: Human metapneumovirus PCR Not Detected (Not Detect.); Influenza A PCR Not Detected (Not Detect.); Influenza B PCR Not Detected (Not Detect.); Mycoplasma pneumoniae PCR Not Detected (Not Detect.); Parainfluenza 1 PCR Not Detected (Not Detect.); Parainfluenza 2 PCR Not Detected (Not Detect.); Parainfluenza 3 PCR Not Detected (Not Detect.); Parainfluenza 4 PCR Not Detected (Not Detect.); RSV PCR Not Detected (Not Detect.); Rhino/Enterovirus PCR Not Detected (Not Detect.); SARS-CoV-2 PCR Not Detected (Not Detect.)
[2022-09-09 18:54] LABS: Bacteria Urine None Seen (None Seen); Hyaline Casts Urine 0-2 /LPF (0-2); RBC Urine 0-2 /HPF (0-2); WBC Urine 0-5 /HPF (0-5)
[2022-09-09 20:06] LABS: HIV AB/AG Nonreactive (Nonreactive); HIV Num 1 0.06 S/CO (0.00-0.99)
[2022-09-09 20:13] LABS: Glucose, Whole Blood 364 mg/dL (60-115)
[2022-09-09] MEDS: Azithromycin 500 MG in 0.9 % Sodium Chloride 250 ML 125 MG IV (20:43)
[2022-09-09] MEDS: Melatonin 3 MG TABLET 6 MG PO (20:46)
[2022-09-09 21:02] LABS: Anion Gap 19 (12-20)
[2022-09-09 21:54] LABS: Carbon Dioxide 35 mmol/L (22-29)
[2022-09-09] MEDS: cefTRIAXone sodium 1 GM in 0.9 % Sodium Chloride 50 ML IV (22:38)
[2022-09-10] VITALS (10 sets, daily range): BP systolic 98–162; BP diastolic 50–92; PULSE 78–113; RESP 11–20; TEMP 36–38.1; O2SAT 90–96
--- NOTE | 2022-09-10 00:41 | CONS_ITS ---
DATE OF SERVICE: 09/09/2022 Asked to see the patient to assist in evaluation and management of the patient's hyponatremia as reflected by a serum sodium of 122 yesterday at 6 p.m. and then repeat this morning was 126. HISTORY OF PRESENT ILLNESS: In summary, the patient is a 52-year-old morbidly obese female with respiratory COPD and restrictive lung disease, hypertension, hyperlipidemia, diabetes, obstructive sleep apnea, schizoaffective disorder, hypothyroidism, posttraumatic stress disorder, who came to the emergency room, noted to be hypoxic requiring lot of oxygen. The patient had labs done, showed a sodium of 122. The patient admits to a lot of fluid intake on a routine basis. She is overall feeling better now. Her hospital course included the CTA negative for PE. She has been treated for her COPD exacerbation with steroids. PAST MEDICAL HISTORY: As noted above. MEDICATIONS: Her medications on admission are noted in the admitting notes and in particular, she is not on a thiazide diuretic. Current medications are noted in the MAR. ALLERGIES: SHE HAS MULTIPLE ALLERGIES LISTED IN ELECTRONIC MEDICAL RECORD. FAMILY HISTORY: Noncontributory. REVIEW OF SYSTEMS: As noted above. PHYSICAL EXAMINATION: GENERAL: Morbidly obese patient. VITAL SIGNS: Blood pressure 130/74 with a heart rate in the 90s. HEAD: Atraumatic. NECK: Unable to assess for JVD. She has short round neck. LUNGS: Decreased air movements with some wheezes and rhonchi noted. CARDIAC: Distant heart sounds. ABDOMEN: Obese, soft, nontender. EXTREMITIES: Shows 1+ edema. LABORATORY DATA: Showed hemoglobin 11, hematocrit 33.6, white blood cell count 9. This morning sodium 126, potassium 4.4, chloride 80, bicarb 36, blood sugar 252. Yesterday at 6 p.m. her sodium was 122. Reviewing her serum sodiums in the past, they have ranged in the 128 to 135 range. She had urine studies done which showed a urine sodium of less than 20, urine osmolality of 218. The blood sugar when she came into the hospital yesterday was 260. IMPRESSION: A 52-YEAR-OLD MORBIDLY OBESE, THE PATIENT CAME WITH THIS BREATHING EXACERBATION OF HER CHRONIC OBSTRUCTIVE PULMONARY DISEASE WITH HYPONATREMIA AND A HISTORY OF HEAVY FLUID INTAKE. 1. Hyponatremia. This is most likely due to combination of factors including aggressive p.o. fluid intake along with a respiratory decompensation. Respiratory illnesses sometimes can be associated with increased ADH release. She is also on some medications that can be associated with increased ADH release. Her serum sodium is already improving as reflected by the increase in serum sodium. Interestingly when she first got admitted her urine specific gravity was 1.005, also consistent with that she was making very dilute urine and would be consistent with spontaneous correction. 2. Other considerations such as hypothyroidism needs to be ruled out, but seem unlikely as well as adrenal insufficiency but she is on steroids, so we cannot check for adrenal insufficiency. 3. Recommendation at this time includes, I will continue her on p.o. fluid restriction. Monitor serum sodium so we make sure her serum sodium . We will check an a.m. thyroid panel. We will follow the patient with the team. MD RAMONA High/ARABELLA / [id number]
[2022-09-10 06:19] LABS: MANUAL DIFF FLAG NO
[2022-09-10 06:25] LABS: Basophils Percent Auto 0.2 % (0-2); Eosinophils Percent Auto 0.1 % (0-4); Hemoglobin 10.6 g/dl (12.0-16.0); Imm Gran Abs Auto 0.12 X10*3/uL (0.00-0.03); Imm Gran Pct Auto 1.5 % (0.0-0.4); Lymphocytes Absolute Auto 1.1 X10*3/uL (1.2-4.9); Lymphocytes Percent Auto 13.2 % (20-40); Mean Corpuscular HGB Conc 31.2 g/dl (31.0-35.0); Mean Corpuscular Hemoglobin 27.6 pg (27.0-33.0); Mean Corpuscular Volume 88.5 fL (80.0-98.0); Mean Platelet Volume 11.6 fL (9.4-12.3); Monocytes Absolute Auto 1.2 X10*3/uL (0.1-1.2); Neutrophils Absolute Auto 5.8 x10*3/uL (2.0-8.3); Platelet Count 188 X10*3/uL (160-400); Red Blood Count 3.84 X10*6/uL (4.20-5.50); Red Cell Distribution Width 14.3 % (11.0-16.0); White Blood Count 8.3 X10*3/uL (4.8-10.8)
[2022-09-10 06:43] LABS: Alanine Aminotransferase 18 U/L (0-31); Albumin Level 3.9 g/dL (3.5-5.0); Alkaline Phosphatase 66 U/L (39-117); Anion Gap 16 (12-20); Aspartate Amino Transferase 22 U/L (5-31); Bilirubin Total 0.2 mg/dL (0.0-1.0); Blood Urea Nitrogen 22 mg/dL (9-16); Calcium 10.3 mg/dL (8.4-10.2); Carbon Dioxide 38 mmol/L (22-29); Chloride 85 mmol/L (96-108); Creatinine Clr Calc Pharmacy 115.7; Estimated Glomerular Filt Rate 52; Glucose Fasting 235 mg/dL (60-99); Potassium 4.3 mmol/L (3.3-5.1); Sodium 135 mmol/L (135-145); Total Protein 7.4 g/dL (6.5-8.0)
[2022-09-10 07:50] LABS: Glucose, Whole Blood 284 mg/dL (60-115)
[2022-09-10] MEDS: Acetaminophen 325 MG TABLET 650 MG PO ×3 (08:12→23:35)
[2022-09-10] MEDS: Insulin Lispro 100 UNIT/ML 3 ML VIAL SUBCUT ×4 (08:12→23:30)
[2022-09-10] MEDS: 0.9 % Sodium Chloride Flush 3 ML SYRINGE IVFLUSH ×3 (08:13→23:32)
[2022-09-10] MEDS: Enoxaparin Sodium 40 MG/0.4 ML SYRINGE SUBCUT ×2 (09:36→23:29)
[2022-09-10] MEDS: Cholecalciferol (Vitamin D3) 25 MCG TABLET 50 MCG PO (10:57)
[2022-09-10] MEDS: Folic Acid 1 MG TABLET PO (10:58)
[2022-09-10] MEDS: SUMAtriptan succinate 50 MG TABLET PO (10:58)
[2022-09-10] MEDS: Levothyroxine Sodium 50 MCG TABLET PO (10:58)
[2022-09-10] MEDS: Furosemide 40 MG TABLET PO (10:58)
[2022-09-10] MEDS: Atorvastatin Calcium 40 MG TABLET PO (10:58)
[2022-09-10] MEDS: Levothyroxine Sodium 200 MCG TABLET PO (10:58)
--- NOTE | 2022-09-10 10:59 | HO.PM.IMPN ---
Subjective Subjective Date of Service: 09/10/22 Interval History: Feels better this a.m.. Breathing at baseline Review of Systems Denies chest pain Denies shortness of breath Denies nausea vomiting diarrhea Denies fever chills Physical Exam Vital Signs: Vital Signs: Last Vital Signs Temp 98.9 F 09/10/22 09:36 Pulse 106 H 09/10/22 07:29 Resp 20 09/10/22 07:29 BP 134/65 09/10/22 07:29 Pulse Ox 92 09/10/22 07:29 O2 Del Method Nasal Cannula 09/10/22 07:29 O2 Flow Rate 11 09/10/22 07:29 Oxygen Flow Rate 8 09/08/22 18:38 BMI result Body Mass Index 72.6 Const: Other: Obese no acute distress Resp: Other: Diminished bilaterally Cardio: Other: No S4; positive S1-S2; no S3 murmurs rubs or gallops Extrem: Other: Positive edema bilaterally Objective Data Active Medications Acetaminophen (Acetaminophen 325 Mg Tablet) 650 mg PO Q6H PRN PRN Reason: Pain, Mild (Pain Scale 1-3) Last Admin: 09/10/22 08:12 Dose: 650 mg Documented By: TRIPP Albuterol Sulfate (Albuterol Sulfate 90 Mcg 8 Gm Inhaler) 2 puff INHALE Q4H PRN PRN Reason: Respiratory Distress Amitriptyline HCl (Amitriptyline Hcl 10 Mg Tablet) 10 mg PO BEDTIME [facility] Atenolol (Atenolol 50 Mg Tablet) 50 mg PO DAILY@1200 SHARI; Protocol Atorvastatin Calcium (Atorvastatin Calcium 40 Mg Tablet) 40 mg PO DAILY [facility] Last Admin: 09/10/22 10:58 Dose: 40 mg Documented By: TRIPP Benztropine Mesylate (Benztropine Mesylate 1 Mg Tablet) 1 mg PO BID@1200,2100 [facility] Dextrose (Dextrose 50 % 25 Gm/50 Ml Syringe) 25 gm IVPUSH Q15M PRN; Protocol PRN Reason: per Hypoglycemia Standing Ord. Divalproex Sodium (Divalproex Sodium Er 250 Mg Tab.Er.24h) 750 mg PO DAILY@1200 [facility] Divalproex Sodium (Divalproex Sodium Er 500 Mg Tab.Er.24h) 1,000 mg PO BEDTIME [facility] Docusate Sodium (Docusate Sodium 100 Mg Capsule) 100 mg PO DAILY@1200 PRN PRN Reason: Constipation Enoxaparin Sodium (Enoxaparin Sodium 40 Mg/0.4 Ml Syringe) 40 mg SUBCUT Q12H [facility] Last Admin: 09/10/22 09:36 Dose: 40 mg Documented By: TRIPP Fluticasone Propionate (Fluticasone Propionate Nasal 16 Gm [place]) 1 spray NOSTRIL-B DAILY [facility] Last Admin: 09/10/22 10:58 Dose: Not Given Documented By: TRIPP Non-Admin Reason: Patient Refused Folic Acid (Folic Acid 1 Mg Tablet) 1 mg PO DAILY [facility] Last Admin: 09/10/22 10:58 Dose: 1 mg Documented By: TRIPP Furosemide (Furosemide 40 Mg Tablet) 40 mg PO DAILY [facility]; Protocol Last Admin: 09/10/22 10:58 Dose: 40 mg Documented By: TRIPP Glucose (Glucose Gel 15 Gm Gel..Gram.) 15 gm PO Q15M PRN; Protocol PRN Reason: per Hypoglycemia Standing Ord. Hydroxyzine HCl (Hydroxyzine Hcl 50 Mg Tablet) 50 mg PO TID PRN PRN Reason: Anxiety Azithromycin 500 mg/ Sodium (Chloride) 250 mls @ 125 mls/hr IV Q24H [facility] Last Infusion: 09/09/22 22:39 Dose: 0 mls/hr Documented By: JULIANN Ceftriaxone Sodium 2 gm/ (Sodium Chloride) 50 mls @ 100 mls/hr IV Q24H [facility] Insulin Human Lispro (Insulin Lispro 100 Unit/Ml 3 Ml Vial) 0 unit SUBCUT QIDACHS [facility]; Protocol Last Admin: 09/10/22 08:12 Dose: 6 unit Documented By: TRIPP Levothyroxine Sodium (Levothyroxine Sodium 50 Mcg Tablet) 50 mcg PO DAILY@0600 [facility] Last Admin: 09/10/22 10:58 Dose: 50 mcg Documented By: TRIPP Levothyroxine Sodium (Levothyroxine Sodium 200 Mcg Tablet) 200 mcg PO DAILY@0600 [facility] Last Admin: 09/10/22 10:58 Dose: 200 mcg Documented By: TRIPP Lisinopril (Lisinopril 10 Mg Tablet) 10 mg PO BEDTIME [facility]; Protocol Loratadine (Loratadine 10 Mg Tablet) 10 mg PO DAILY PRN PRN Reason: allergies Lurasidone HCl (Lurasidone Hcl 20 Mg Tablet) 60 mg PO DAILY@0700 [facility] Melatonin (Melatonin 3 Mg Tablet) 6 mg PO BEDTIME PRN PRN Reason: Insomnia Last Admin: 09/09/22 20:46 Dose: 6 mg Documented By: JULIANN Montelukast Sodium (Montelukast Sodium 10 Mg Tablet) 10 mg PO BEDTIME [facility] Multivitamins/Vitamin C (Multivitamin Tablet) 1 tab PO DAILY [facility] Ondansetron HCl (Ondansetron Hcl 4 Mg/2 Ml Vial) 4 mg IVPUSH Q8H PRN PRN Reason: Nausea and Vomiting Pharmacy Consult (Consult Rx Perform Med Rec) 1 each MISCELLANE ONCE PRN PRN Reason: Consult order Pharmacy Consult (Consult Rx Perform Med Rec) 1 each MISCELLANE ONCE PRN PRN Reason: Consult order Prazosin HCl (Prazosin Hcl 1 Mg Capsule) 1 mg PO BEDTIME [facility]; Protocol Prazosin HCl (Prazosin Hcl 5 Mg Capsule) 5 mg PO BEDTIME [facility]; Protocol Quetiapine Fumarate (Quetiapine Fumarate 100 Mg Tablet) 100 mg PO DAILY PRN PRN Reason: anxiety Quetiapine Fumarate (Quetiapine Fumarate 300 Mg Tablet) 600 mg PO BEDTIME [facility] Sodium Chloride (0.9 % Sodium Chloride Flush 3 Ml Syringe) [facility] Last Admin: 09/10/22 08:13 Dose: 3 ml Documented By: TRIPP Sodium Chloride (0.9 % Sodium Chloride Flush 3 Ml Syringe) 3 ml IVFLUSH QSHIFT [facility] Last Admin: 09/10/22 08:13 Dose: Not Given Documented By: TRIPP Non-Admin Reason: Duplicate Order Sumatriptan Succinate (Sumatriptan Succinate 50 Mg Tablet) 50 mg PO DAILY MRX1 PRN PRN Reason: Headache Last Admin: 09/10/22 10:58 Dose: 50 mg Documented By: TRIPP Thiamine HCl (Thiamine Hcl 100 Mg Tablet) 100 mg PO DAILY@1200 [facility] Vitamin D (Cholecalciferol (Vitamin D3) 25 Mcg Tablet) 50 mcg PO DAILY [facility] Last Admin: 09/10/22 10:57 Dose: 50 mcg Documented By: TRIPP Labs 09/10/22 06:05 09/10/22 06:05 Labs: Laboratory Results - last 24 hr 09/09/22 09/09/22 09/09/22 11:07 15:36 15:36 MCV MCH MCHC RDW Plt Count MPV Immature Gran % (Auto) Neut % (Auto) Lymph % (Auto) Andrews % (Auto) Eos % (Auto) Baso % (Auto) Lymph # (Auto) Andrews # (Auto) Eos # (Auto) Baso # (Auto) Abs Immat Gran (auto) Absolute Neuts (auto) Absolute Nucleated RBC Nucleated RBC % (auto) Anion Gap 19 Estim Creat Clear Calc Estimated GFR POC Glucose 367 H* Fasting Glucose Calcium Total Bilirubin AST ALT Alkaline Phosphatase Total Protein Albumin Urine Color Urine Appearance Urine pH Ur Specific [place] Urine Protein Urine Glucose (UA) Urine Ketones Urine Blood Urine Nitrite Ur Leukocyte Esterase Urine RBC Urine WBC Ur Squamous Epith Cells Urine Bacteria Hyaline Casts Respiratory Panel [place] Adenovirus (Rapid PCR) B.pert (TEM-PCR) B.parapertussis DNA PCR C. pneumoniae DNA (PCR) Coronavirus OC43 (PCR) Coronavirus HKU1 (PCR) Coronavirus 229E (PCR) Coronavirus NL63 (PCR) HIV 1&2 Ab/P24 Ag 4thGn Nonreactive Human Metapneumovir PCR Influenza A (RT-PCR) Influenza B (RT-PCR) M. pneumoniae (PCR) Parainfluenza 1 (PCR) Parainfluenza 2 (PCR) Parainfluenza 3 (PCR) Parainfluenza 4 (PCR) RSV (PCR) Entero/Rhino (PCR) SARS-CoV-2 RNA (RT-PCR) 09/09/22 09/09/22 09/09/22 15:41 15:41 15:48 MCV MCH MCHC RDW Plt Count MPV Immature Gran % (Auto) Neut % (Auto) Lymph % (Auto) Andrews % (Auto) Eos % (Auto) Baso % (Auto) Lymph # (Auto) Andrews # (Auto) Eos # (Auto) Baso # (Auto) Abs Immat Gran (auto) Absolute Neuts (auto) Absolute Nucleated RBC Nucleated RBC % (auto) Anion Gap Estim Creat Clear Calc Estimated GFR POC Glucose 338 H Fasting Glucose Calcium Total Bilirubin AST ALT Alkaline Phosphatase Total Protein Albumin Urine Color Yellow Urine Appearance Clear Urine pH 6.0 Ur Specific [place] 1.020 Urine Protein Negative Urine Glucose (UA) >=1000 H Urine Ketones Trace Urine Blood Trace H Urine Nitrite Negative Ur Leukocyte Esterase Negative Urine RBC 0-2 Urine WBC 0-5 Ur Squamous Epith Cells 3-5 Urine Bacteria None Seen Hyaline Casts 0-2 Respiratory Panel [place] See Note Adenovirus (Rapid PCR) Not Detected B.pert (TEM-PCR) Not Detected B.parapertussis DNA PCR Not Detected C. pneumoniae DNA (PCR) Not Detected Coronavirus OC43 (PCR) Not Detected Coronavirus HKU1 (PCR) Not Detected Coronavirus 229E (PCR) Not Detected Coronavirus NL63 (PCR) Not Detected HIV 1&2 Ab/P24 Ag 4thGn Human Metapneumovir PCR Not Detected Influenza A (RT-PCR) Not Detected Influenza B (RT-PCR) Not Detected M. pneumoniae (PCR) Not Detected Parainfluenza 1 (PCR) Not Detected Parainfluenza 2 (PCR) Not Detected Parainfluenza 3 (PCR) Not Detected Parainfluenza 4 (PCR) Not Detected RSV (PCR) Not Detected Entero/Rhino (PCR) Not Detected SARS-CoV-2 RNA (RT-PCR) Not Detected 09/09/22 09/10/22 09/10/22 20:06 06:05 06:05 MCV 88.5 MCH 27.6 MCHC 31.2 RDW 14.3 Plt Count 188 MPV 11.6 Immature Gran % (Auto) 1.5 H Neut % (Auto) 70.0 Lymph % (Auto) 13.2 L Andrews % (Auto) 15.0 H Eos % (Auto) 0.1 Baso % (Auto) 0.2 Lymph # (Auto) 1.1 L Andrews # (Auto) 1.2 Eos # (Auto) 0.0 Baso # (Auto) 0.0 Abs Immat Gran (auto) 0.12 H Absolute Neuts (auto) 5.8 Absolute Nucleated RBC 0.000 Nucleated RBC % (auto) 0.0 Anion Gap 16 Estim Creat Clear Calc 115.7 Estimated GFR 52 POC Glucose 364 H* Fasting Glucose 235 H Calcium 10.3 H D Total Bilirubin 0.2 AST 22 ALT 18 Alkaline Phosphatase 66 Total Protein 7.4 Albumin 3.9 Urine Color Urine Appearance Urine pH Ur Specific [place] Urine Protein Urine Glucose (UA) Urine Ketones Urine Blood Urine Nitrite Ur Leukocyte Esterase Urine RBC Urine WBC Ur Squamous Epith Cells Urine Bacteria Hyaline Casts Respiratory Panel [place] Adenovirus (Rapid PCR) B.pert (TEM-PCR) B.parapertussis DNA PCR C. pneumoniae DNA (PCR) Coronavirus OC43 (PCR) Coronavirus HKU1 (PCR) Coronavirus 229E (PCR) Coronavirus NL63 (PCR) HIV 1&2 Ab/P24 Ag 4thGn Human Metapneumovir PCR Influenza A (RT-PCR) Influenza B (RT-PCR) M. pneumoniae (PCR) Parainfluenza 1 (PCR) Parainfluenza 2 (PCR) Parainfluenza 3 (PCR) Parainfluenza 4 (PCR) RSV (PCR) Entero/Rhino (PCR) SARS-CoV-2 RNA (RT-PCR) 09/10/22 07:31 MCV MCH MCHC RDW Plt Count MPV Immature Gran % (Auto) Neut % (Auto) Lymph % (Auto) Andrews % (Auto) Eos % (Auto) Baso % (Auto) Lymph # (Auto) Andrews # (Auto) Eos # (Auto) Baso # (Auto) Abs Immat Gran (auto) Absolute Neuts (auto) Absolute Nucleated RBC Nucleated RBC % (auto) Anion Gap Estim Creat Clear Calc Estimated GFR POC Glucose 284 H Fasting Glucose Calcium Total Bilirubin AST ALT Alkaline Phosphatase Total Protein Albumin Urine Color Urine Appearance Urine pH Ur Specific [place] Urine Protein Urine Glucose (UA) Urine Ketones Urine Blood Urine Nitrite Ur Leukocyte Esterase Urine RBC Urine WBC Ur Squamous Epith Cells Urine Bacteria Hyaline Casts Respiratory Panel [place] Adenovirus (Rapid PCR) B.pert (TEM-PCR) B.parapertussis DNA PCR C. pneumoniae DNA (PCR) Coronavirus OC43 (PCR) Coronavirus HKU1 (PCR) Coronavirus 229E (PCR) Coronavirus NL63 (PCR) HIV 1&2 Ab/P24 Ag 4thGn Human Metapneumovir PCR Influenza A (RT-PCR) Influenza B (RT-PCR) M. pneumoniae (PCR) Parainfluenza 1 (PCR) Parainfluenza 2 (PCR) Parainfluenza 3 (PCR) Parainfluenza 4 (PCR) RSV (PCR) Entero/Rhino (PCR) SARS-CoV-2 RNA (RT-PCR) Microbiology Microbiology Results: Microbiology 09/08/22 18:23 Blood Culture - Preliminary Blood - Venous Gram negative george 09/08/22 18:23 Blood Culture - Preliminary Blood - Venous Gram negative george Assessment and Plan (1) Acute and chronic respiratory failure: Status: Acute (2) Pneumonia: Status: Acute (3) Acute hyponatremia: Status: Acute (4) T2DM (type 2 diabetes mellitus): Status: Acute Plan Pt is a 52-year-old female with a PMH significant for?COPD/restrictive lung disease on Trilogy, HTN, HLD, insulin-dependent diabetes type 2, morbid obesity, MORGAN, schizoaffective disorder, hypothyroidism, and PTSD who presents to the ED with?after a fall at and found to be satting at 76% on 10 L NC by EMS. Pt will be admitted to the hospital for acute on chronic hypoxic respiratory failure in the setting of likely pneumonia. Of note patient is on 5 L O2 at rest at home and can be on 10 L with ambulation. 1.Acute on chronic hypoxic respiratory in backdrop of pneumonia -ceftriaxone/azithromycin (3) -continue supplemental O2 L flow as per home -DuoNebs p.r.n. -continue BiPAP at night 2. GNR bacteremia -continue ceftriaxone as white count stable -await cultures 2.Hyponatremia -self correcting -follow renals/divalents 3.Insulin-dependent diabetes type 2 -Resume home insulin dosing -lispro correctional scale -adjust as indicated 4.HTN -acceptable control on current therapies - 5.Schizoaffective disorder -Continue Depakote, benztropine, amitriptyline, Latuda, Seroquel Full Code Lovenox Patient will require ongoing hospitalization for IV antibiotics to treat community-acquired pneumonia Time Spent With Patient Time: Total time managing care of this patient today ____ minutes. Quality Stroke Does the patient have a stroke diagnosis?: No VTE Prior VTE?: No VTE Risk Level:: Medical - moderate - high VTE Device Contraindication: Treatment Not Indicated VTE Drug Contraindication: N/A - Med Ordered
[2022-09-10 11:37] LABS: Glucose, Whole Blood 382 mg/dL (60-115)
[2022-09-10] MEDS: Thiamine HCL 100 MG TABLET PO (12:24)
[2022-09-10] MEDS: Docusate Sodium 100 MG CAPSULE PO (12:24)
[2022-09-10] MEDS: Benztropine Mesylate 1 MG TABLET PO ×2 (12:25→23:29)
[2022-09-10] MEDS: atenoloL 50 MG TABLET PO (12:25)
[2022-09-10] MEDS: Divalproex Sodium ER 250 MG TAB.ER.24H 750 MG PO (12:25)
[2022-09-10] MEDS: hydrOXYzine HCL 50 MG TABLET PO (13:11)
[2022-09-10] MEDS: QUEtiapine Fumarate 100 MG TABLET PO (13:11)
[2022-09-10 16:20] LABS: Glucose, Whole Blood 321 mg/dL (60-115)
[2022-09-10 19:34] LABS: Glucose, Whole Blood 264 mg/dL (60-115)
[2022-09-10 23:01] LABS: Glucose, Whole Blood 235 mg/dL (60-115)
--- NOTE | 2022-09-10 23:15 | PC.RT ---
pt refusing ot wear Bipap tonight. Remains on 6l n/c . no resp distress noted.
[2022-09-10] MEDS: Azithromycin 500 MG in 0.9 % Sodium Chloride 250 ML 125 MG IV (23:25)
[2022-09-10] MEDS: lisinopriL 10 MG TABLET PO (23:26)
[2022-09-10] MEDS: Amitriptyline HCl 10 MG TABLET PO (23:26)
[2022-09-10] MEDS: Divalproex Sodium ER 500 MG TAB.ER.24H 1000 MG PO (23:26)
[2022-09-10] MEDS: Prazosin HCL 1 MG CAPSULE PO (23:27)
[2022-09-10] MEDS: QUEtiapine Fumarate 300 MG TABLET 600 MG PO (23:27)
[2022-09-10] MEDS: Prazosin HCL 5 MG CAPSULE PO (23:30)
[2022-09-10] MEDS: Montelukast Sodium 10 MG TABLET PO (23:31)
[2022-09-10] MEDS: cefTRIAXone sodium 2 GM in 0.9 % Sodium Chloride 50 ML IV (23:32)
[2022-09-11] VITALS (9 sets, daily range): BP systolic 94–123; BP diastolic 52–82; PULSE 77–104; RESP 15–20; TEMP 36.1–37.2; O2SAT 92–99
[2022-09-11] MEDS: Lurasidone HCl 20 MG TABLET 60 MG PO (06:47)
[2022-09-11] MEDS: Levothyroxine Sodium 50 MCG TABLET PO (06:47)
[2022-09-11] MEDS: Levothyroxine Sodium 200 MCG TABLET PO (06:47)
[2022-09-11 07:47] LABS: Glucose, Whole Blood 227 mg/dL (60-115)
[2022-09-11] MEDS: Folic Acid 1 MG TABLET PO (08:30)
[2022-09-11] MEDS: Acetaminophen 325 MG TABLET 650 MG PO ×2 (08:30→20:14)
[2022-09-11] MEDS: Insulin Lispro 100 UNIT/ML 3 ML VIAL SUBCUT ×4 (08:30→20:13)
[2022-09-11] MEDS: Cholecalciferol (Vitamin D3) 25 MCG TABLET 50 MCG PO (08:30)
[2022-09-11] MEDS: Multivitamin TABLET 1 TAB PO (08:30)
[2022-09-11] MEDS: Atorvastatin Calcium 40 MG TABLET PO (08:31)
[2022-09-11] MEDS: Furosemide 40 MG TABLET PO (08:31)
[2022-09-11] MEDS: Enoxaparin Sodium 40 MG/0.4 ML SYRINGE SUBCUT ×2 (11:01→22:09)
--- NOTE | 2022-09-11 11:27 | HO.PM.IMPN ---
Subjective Subjective Date of Service: 09/11/22 Interval History: Remains afebrile. Breathing at baseline Review of Systems Denies chest pain Denies shortness of breath Denies nausea vomiting diarrhea Denies fever chills Physical Exam Vital Signs: Vital Signs: Last Vital Signs Temp 98.5 F 09/11/22 11:13 Pulse 83 09/11/22 11:13 Resp 20 09/11/22 11:13 BP 106/62 09/11/22 11:13 Pulse Ox 95 09/11/22 11:13 O2 Del Method Nasal Cannula 09/11/22 11:13 O2 Flow Rate 8 09/11/22 11:13 Oxygen Flow Rate 8 09/08/22 18:38 BMI result Body Mass Index 72.6 Const: Other: Obese no acute distress Resp: Other: Diminished bilaterally Cardio: Other: No S4; positive S1-S2; no S3 murmurs rubs or gallops Extrem: Other: Positive edema bilaterally Objective Data Active Medications Acetaminophen (Acetaminophen 325 Mg Tablet) 650 mg PO Q6H PRN PRN Reason: Pain, Mild (Pain Scale 1-3) Last Admin: 09/11/22 08:30 Dose: 650 mg Documented By: TRIPP Albuterol Sulfate (Albuterol Sulfate 90 Mcg 8 Gm Inhaler) 2 puff INHALE Q4H PRN PRN Reason: Respiratory Distress Amitriptyline HCl (Amitriptyline Hcl 10 Mg Tablet) 10 mg PO BEDTIME [facility] Last Admin: 09/10/22 23:26 Dose: 10 mg Documented By: JULIANN Atenolol (Atenolol 50 Mg Tablet) 50 mg PO DAILY@1200 [facility]; Protocol Last Admin: 09/10/22 12:25 Dose: 50 mg Documented By: TRIPP Atorvastatin Calcium (Atorvastatin Calcium 40 Mg Tablet) 40 mg PO DAILY [facility] Last Admin: 09/11/22 08:31 Dose: 40 mg Documented By: TRIPP Benztropine Mesylate (Benztropine Mesylate 1 Mg Tablet) 1 mg PO BID@1200,2100 [facility] Last Admin: 09/10/22 23:29 Dose: 1 mg Documented By: JULIANN Dextrose (Dextrose 50 % 25 Gm/50 Ml Syringe) 25 gm IVPUSH Q15M PRN; Protocol PRN Reason: per Hypoglycemia Standing Ord. Divalproex Sodium (Divalproex Sodium Er 250 Mg Tab.Er.24h) 750 mg PO DAILY@1200 [facility] Last Admin: 09/10/22 12:25 Dose: 750 mg Documented By: TRIPP Divalproex Sodium (Divalproex Sodium Er 500 Mg Tab.Er.24h) 1,000 mg PO BEDTIME [facility] Last Admin: 09/10/22 23:26 Dose: 1,000 mg Documented By: JULIANN Docusate Sodium (Docusate Sodium 100 Mg Capsule) 100 mg PO DAILY@1200 PRN PRN Reason: Constipation Last Admin: 09/10/22 12:24 Dose: 100 mg Documented By: TRIPP Enoxaparin Sodium (Enoxaparin Sodium 40 Mg/0.4 Ml Syringe) 40 mg SUBCUT Q12H [facility] Last Admin: 09/11/22 11:01 Dose: 40 mg Documented By: TRIPP Fluticasone Propionate (Fluticasone Propionate Nasal 16 Gm [place]) 1 spray NOSTRIL-B DAILY [facility] Last Admin: 09/11/22 08:32 Dose: Not Given Documented By: TRIPP Non-Admin Reason: Patient Refused Folic Acid (Folic Acid 1 Mg Tablet) 1 mg PO DAILY [facility] Last Admin: 09/11/22 08:30 Dose: 1 mg Documented By: TRIPP Furosemide (Furosemide 40 Mg Tablet) 40 mg PO DAILY [facility]; Protocol Last Admin: 09/11/22 08:31 Dose: 40 mg Documented By: TRIPP Glucose (Glucose Gel 15 Gm Gel..Gram.) 15 gm PO Q15M PRN; Protocol PRN Reason: per Hypoglycemia Standing Ord. Hydroxyzine HCl (Hydroxyzine Hcl 50 Mg Tablet) 50 mg PO TID PRN PRN Reason: Anxiety Last Admin: 09/10/22 13:11 Dose: 50 mg Documented By: TRIPP Azithromycin 500 mg/ Sodium (Chloride) 250 mls @ 125 mls/hr IV Q24H [facility] Last Infusion: 09/11/22 01:55 Dose: 0 mls/hr Documented By: JULIANN Ceftriaxone Sodium 2 gm/ (Sodium Chloride) 50 mls @ 100 mls/hr IV Q24H [facility] Last Infusion: 09/11/22 00:05 Dose: 0 mls/hr Documented By: JULIANN Insulin Human Lispro (Insulin Lispro 100 Unit/Ml 3 Ml Vial) 0 unit SUBCUT QIDACHS [facility]; Protocol Last Admin: 09/11/22 08:30 Dose: 4 unit Documented By: TRIPP Levothyroxine Sodium (Levothyroxine Sodium 50 Mcg Tablet) 50 mcg PO DAILY@0600 [facility] Last Admin: 09/11/22 06:47 Dose: 50 mcg Documented By: JULIANN Levothyroxine Sodium (Levothyroxine Sodium 200 Mcg Tablet) 200 mcg PO DAILY@0600 [facility] Last Admin: 09/11/22 06:47 Dose: 200 mcg Documented By: JULIANN Lisinopril (Lisinopril 10 Mg Tablet) 10 mg PO BEDTIME [facility]; Protocol Last Admin: 09/10/22 23:26 Dose: 10 mg Documented By: JULIANN Loratadine (Loratadine 10 Mg Tablet) 10 mg PO DAILY PRN PRN Reason: allergies Lurasidone HCl (Lurasidone Hcl 20 Mg Tablet) 60 mg PO DAILY@0700 [facility] Last Admin: 09/11/22 06:47 Dose: 60 mg Documented By: JULIANN Melatonin (Melatonin 3 Mg Tablet) 6 mg PO BEDTIME PRN PRN Reason: Insomnia Last Admin: 09/09/22 20:46 Dose: 6 mg Documented By: JULIANN Montelukast Sodium (Montelukast Sodium 10 Mg Tablet) 10 mg PO BEDTIME [facility] Last Admin: 09/10/22 23:31 Dose: 10 mg Documented By: JULIANN Multivitamins/Vitamin C (Multivitamin Tablet) 1 tab PO DAILY [facility] Last Admin: 09/11/22 08:30 Dose: 1 tab Documented By: TRIPP Ondansetron HCl (Ondansetron Hcl 4 Mg/2 Ml Vial) 4 mg IVPUSH Q8H PRN PRN Reason: Nausea and Vomiting Pharmacy Consult (Consult Rx Perform Med Rec) 1 each MISCELLANE ONCE PRN PRN Reason: Consult order Pharmacy Consult (Consult Rx Perform Med Rec) 1 each MISCELLANE ONCE PRN PRN Reason: Consult order Prazosin HCl (Prazosin Hcl 1 Mg Capsule) 1 mg PO BEDTIME [facility]; Protocol Last Admin: 09/10/22 23:27 Dose: 1 mg Documented By: JULIANN Prazosin HCl (Prazosin Hcl 5 Mg Capsule) 5 mg PO BEDTIME [facility]; Protocol Last Admin: 09/10/22 23:30 Dose: 5 mg Documented By: JULIANN Quetiapine Fumarate (Quetiapine Fumarate 100 Mg Tablet) 100 mg PO DAILY PRN PRN Reason: anxiety Last Admin: 09/10/22 13:11 Dose: 100 mg Documented By: TRIPP Quetiapine Fumarate (Quetiapine Fumarate 300 Mg Tablet) 600 mg PO BEDTIME [facility] Last Admin: 09/10/22 23:27 Dose: 600 mg Documented By: JULIANN Sodium Chloride (0.9 % Sodium Chloride Flush 3 Ml Syringe) 3 ml IVFLUSH QSWYFT [facility] Last Admin: 09/11/22 08:31 Dose: Not Given Documented By: TRIPP Non-Admin Reason: Previously Administered Sodium Chloride (0.9 % Sodium Chloride Flush 3 Ml Syringe) 3 ml IVFLUSH QSWYFT [facility] Last Admin: 09/11/22 08:31 Dose: Not Given Documented By: TRIPP Non-Admin Reason: Duplicate Order Sumatriptan Succinate (Sumatriptan Succinate 50 Mg Tablet) 50 mg PO DAILY MRX1 PRN PRN Reason: Headache Last Admin: 09/10/22 10:58 Dose: 50 mg Documented By: TRIPP Thiamine HCl (Thiamine Hcl 100 Mg Tablet) 100 mg PO DAILY@1200 [facility] Last Admin: 09/10/22 12:24 Dose: 100 mg Documented By: TRIPP Vitamin D (Cholecalciferol (Vitamin D3) 25 Mcg Tablet) 50 mcg PO DAILY [facility] Last Admin: 09/11/22 08:30 Dose: 50 mcg Documented By: TRIPP Labs 09/10/22 06:05 09/10/22 06:05 Labs: Laboratory Results - last 24 hr 09/10/22 09/10/22 09/10/22 11:23 16:12 19:28 POC Glucose 382 H* 321 H 264 H 09/10/22 09/11/22 22:56 07:20 POC Glucose 235 H 227 H Microbiology Microbiology Results: Microbiology 09/08/22 18:23 Blood Culture - Final Blood - Venous Escherichia coli 09/08/22 18:23 Blood Culture - Final Blood - Venous Escherichia coli Assessment and Plan (1) E coli bacteremia: Status: Acute (2) Acute and chronic respiratory failure: Status: Acute (3) Acute hyponatremia: Status: Acute (4) T2DM (type 2 diabetes mellitus): Status: Acute Plan Pt is a 52-year-old female with a PMH significant for?COPD/restrictive lung disease on Trilogy, HTN, HLD, insulin-dependent diabetes type 2, morbid obesity, MORGAN, schizoaffective disorder, hypothyroidism, and PTSD who presents to the ED with?after a fall at and found to be satting at 76% on 10 L NC by EMS. Pt will be admitted to the hospital for acute on chronic hypoxic respiratory failure in the setting of likely pneumonia. Of note patient is on 5 L O2 at rest at home and can be on 10 L with ambulation. 1.Acute on chronic hypoxic respiratory in backdrop of pneumonia(given E coli bacteremia unlikely pneumonia) -ceftriaxone/azithromycin (4) -continue supplemental O2 L flow as per home -Beatrice p.r.n. -continue BiPAP at night 2. E coli bacteremia -continue ceftriaxone -CT abdomen pelvis -Id consult in a.m. 2.Hyponatremia -self correcting -follow renals/divalents 3.Insulin-dependent diabetes type 2 -Resume home insulin dosing -lispro correctional scale -adjust as indicated 4.HTN -acceptable control on current therapies - 5.Schizoaffective disorder -Continue Depakote, benztropine, amitriptyline, Latuda, Seroquel Full Code Lovenox Patient will require ongoing hospitalization for IV antibiotics to treat community-acquired pneumonia Time Spent With Patient Time: Total time managing care of this patient today ____ minutes. Quality Stroke Does the patient have a stroke diagnosis?: No VTE Prior VTE?: No VTE Risk Level:: Medical - moderate - high VTE Device Contraindication: Treatment Not Indicated VTE Drug Contraindication: N/A - Med Ordered
[2022-09-11 11:40] LABS: Glucose, Whole Blood 362 mg/dL (60-115)
[2022-09-11] MEDS: Thiamine HCL 100 MG TABLET PO (12:04)
[2022-09-11] MEDS: Divalproex Sodium ER 250 MG TAB.ER.24H 750 MG PO (12:04)
[2022-09-11] MEDS: atenoloL 50 MG TABLET PO (12:04)
[2022-09-11] MEDS: Benztropine Mesylate 1 MG TABLET PO ×2 (12:04→20:16)
[2022-09-11 16:15] LABS: Glucose, Whole Blood 408 mg/dL (60-115)
[2022-09-11] MEDS: 0.9 % Sodium Chloride Flush 3 ML SYRINGE IVFLUSH (17:04)
[2022-09-11] MEDS: Nystatin Powder 15 GM BOTTLE 1 APPL TOPICAL ×2 (17:04→20:16)
[2022-09-11] MEDS: Azithromycin 500 MG in 0.9 % Sodium Chloride 250 ML 125 MG IV (20:03)
[2022-09-11 20:08] LABS: Glucose, Whole Blood 286 mg/dL (60-115)
[2022-09-11] MEDS: Prazosin HCL 1 MG CAPSULE PO (20:15)
[2022-09-11] MEDS: Prazosin HCL 5 MG CAPSULE PO (20:15)
[2022-09-11] MEDS: QUEtiapine Fumarate 300 MG TABLET 600 MG PO (20:15)
[2022-09-11] MEDS: Montelukast Sodium 10 MG TABLET PO (20:15)
[2022-09-11] MEDS: lisinopriL 10 MG TABLET PO (20:15)
[2022-09-11] MEDS: Divalproex Sodium ER 500 MG TAB.ER.24H 1000 MG PO (20:16)
[2022-09-11] MEDS: Amitriptyline HCl 10 MG TABLET PO (20:16)
[2022-09-12] VITALS (8 sets, daily range): BP systolic 100–138; BP diastolic 56–80; PULSE 76–97; RESP 15–20; TEMP 36.3–37; O2SAT 84–98
[2022-09-12] MEDS: cefTRIAXone sodium 2 GM in 0.9 % Sodium Chloride 50 ML IV ×2 (00:08→22:17)
[2022-09-12] MEDS: 0.9 % Sodium Chloride Flush 3 ML SYRINGE IVFLUSH ×2 (00:09→07:59)
[2022-09-12] MEDS: Levothyroxine Sodium 50 MCG TABLET PO (06:45)
[2022-09-12] MEDS: Levothyroxine Sodium 200 MCG TABLET PO (06:45)
[2022-09-12 07:01] LABS: MANUAL DIFF FLAG NO
[2022-09-12 07:06] LABS: Basophils Absolute Auto 0.1 X10*3/uL (0.0-0.2); Eosinophils Absolute Auto 0.1 X10*3/uL (0.0-0.4); Eosinophils Percent Auto 1.6 % (0-4); Hematocrit 30.9 % (37.0-47.0); Hemoglobin 9.7 g/dl (12.0-16.0); Imm Gran Abs Auto 0.16 X10*3/uL (0.00-0.03); Imm Gran Pct Auto 2.8 % (0.0-0.4); Lymphocytes Absolute Auto 2.1 X10*3/uL (1.2-4.9); Lymphocytes Percent Auto 36.9 % (20-40); Mean Corpuscular HGB Conc 31.4 g/dl (31.0-35.0); Mean Corpuscular Hemoglobin 27.8 pg (27.0-33.0); Mean Corpuscular Volume 88.5 fL (80.0-98.0); Mean Platelet Volume 11.8 fL (9.4-12.3); Monocytes Absolute Auto 0.9 X10*3/uL (0.1-1.2); Neutrophils Absolute Auto 2.4 x10*3/uL (2.0-8.3); Neutrophils Percent Auto 41.7 % (45-73); Platelet Count 209 X10*3/uL (160-400); Red Blood Count 3.49 X10*6/uL (4.20-5.50); Red Cell Distribution Width 14.4 % (11.0-16.0); White Blood Count 5.7 X10*3/uL (4.8-10.8)
[2022-09-12 07:16] LABS: Glucose, Whole Blood 226 mg/dL (60-115)
[2022-09-12] MEDS: Fluticasone Propionate Nasal 16 GM SPRAY 1 SPRAY NOSTRIL-B (07:57)
[2022-09-12] MEDS: Lurasidone HCl 20 MG TABLET 60 MG PO (07:58)
[2022-09-12] MEDS: Furosemide 40 MG TABLET PO (07:58)
[2022-09-12] MEDS: Folic Acid 1 MG TABLET PO (07:58)
[2022-09-12] MEDS: Atorvastatin Calcium 40 MG TABLET PO (07:58)
[2022-09-12] MEDS: Multivitamin TABLET 1 TAB PO (07:59)
[2022-09-12] MEDS: Insulin Lispro 100 UNIT/ML 3 ML VIAL SUBCUT ×4 (07:59→20:45)
[2022-09-12] MEDS: Cholecalciferol (Vitamin D3) 25 MCG TABLET 50 MCG PO (07:59)
[2022-09-12] MEDS: Nicotine 14 MG PATCH.TD24 TRANSDERMA (08:35)
[2022-09-12] MEDS: Nicotine Polacrilex 2 MG GUM BUCCAL ×4 (08:35→21:05)
[2022-09-12 08:44] LABS: Alanine Aminotransferase 17 U/L (0-31); Albumin Level 3.6 g/dL (3.5-5.0); Alkaline Phosphatase 61 U/L (39-117); Anion Gap 13 (12-20); Aspartate Amino Transferase 18 U/L (5-31); Bilirubin Total 0.3 mg/dL (0.0-1.0); Blood Urea Nitrogen 16 mg/dL (9-16); Calcium 9.6 mg/dL (8.4-10.2); Chloride 81 mmol/L (96-108); Creatinine Clr Calc Pharmacy 151.5; Estimated Glomerular Filt Rate > 60; Glucose Fasting 215 mg/dL (60-99); Potassium 3.7 mmol/L (3.3-5.1); Sodium 135 mmol/L (135-145); Total Protein 6.9 g/dL (6.5-8.0)
[2022-09-12 09:17] LABS: Carbon Dioxide 43 mmol/L (22-29)
[2022-09-12] MEDS: Enoxaparin Sodium 40 MG/0.4 ML SYRINGE SUBCUT ×2 (09:51→22:17)
[2022-09-12] MEDS: Insulin Glargine,Hum.rec.anlog 100 UNIT/ML 10 ML VIAL 50 UNIT SUBCUT (09:51)
[2022-09-12] MEDS: Acetaminophen 325 MG TABLET 650 MG PO ×2 (10:00→21:07)
[2022-09-12 10:15] LABS: Procalcitonin 0.06 ng/mL
--- NOTE | 2022-09-12 11:22 | P.PNNP_ITS ---
Subjective Subjective Date of Service: 09/12/22 Interval history: Remains afebrile. Breathing at baseline Physical Exam Vital Signs: Vital Signs: Last Vital Signs Temp 97.9 F 09/12/22 07:18 Pulse 83 09/12/22 07:18 Resp 17 09/12/22 07:18 BP 106/56 L 09/12/22 07:18 Pulse Ox 91 L 09/12/22 07:18 O2 Del Method Nasal Cannula 09/12/22 07:18 O2 Flow Rate 8 09/12/22 07:18 Oxygen Flow Rate 8 09/08/22 18:38 BMI result Body Mass Index 72.6 Comfortable Morbidly obese Neck is supple Lung: Air entry equal Heart: S1,S2, normal. No rub Abd: Soft. BS + NS : Alert.No asterexis Ext: + edema Objective Data Labs 09/12/22 06:08 09/12/22 06:08 Labs: Laboratory Results - last 24 hr 09/11/22 09/11/22 09/11/22 11:14 16:10 19:53 WBC RBC Hgb Hct MCV MCH MCHC RDW Plt Count MPV Immature Gran % (Auto) Neut % (Auto) Lymph % (Auto) [place] % (Auto) Eos % (Auto) Baso % (Auto) Lymph # (Auto) [place] # (Auto) Eos # (Auto) Baso # (Auto) Abs Immat Gran (auto) Absolute Neuts (auto) Absolute Nucleated RBC Nucleated RBC % (auto) Sodium Potassium Chloride Carbon Dioxide Anion Gap BUN Creatinine Estim Creat Clear Calc Estimated GFR POC Glucose 362 H* 408 H* 286 H Fasting Glucose Calcium Total Bilirubin AST ALT Alkaline Phosphatase Total Protein Albumin Procalcitonin 09/12/22 09/12/22 09/12/22 06:08 06:08 07:10 WBC 5.7 RBC 3.49 L Hgb 9.7 L Hct 30.9 L MCV 88.5 MCH 27.8 MCHC 31.4 RDW 14.4 Plt Count 209 MPV 11.8 Immature Gran % (Auto) 2.8 H Neut % (Auto) 41.7 L Lymph % (Auto) 36.9 [place] % (Auto) 16.0 H Eos % (Auto) 1.6 Baso % (Auto) 1.0 Lymph # (Auto) 2.1 [place] # (Auto) 0.9 Eos # (Auto) 0.1 Baso # (Auto) 0.1 Abs Immat Gran (auto) 0.16 H Absolute Neuts (auto) 2.4 Absolute Nucleated RBC 0.000 Nucleated RBC % (auto) 0.0 Sodium 135 Potassium 3.7 Chloride 81 L Carbon Dioxide 43 H* Anion Gap 13 BUN 16 Creatinine 0.84 Estim Creat Clear Calc 151.5 Estimated GFR > 60 POC Glucose 226 H Fasting Glucose 215 H Calcium 9.6 D Total Bilirubin 0.3 AST 18 ALT 17 Alkaline Phosphatase 61 Total Protein 6.9 Albumin 3.6 Procalcitonin 0.06 Microbiology Microbiology Results: Microbiology 09/08/22 18:23 Blood - Venous Blood Culture - Final Escherichia coli 09/08/22 18:23 Blood - Venous Blood Culture - Final Escherichia coli Procedures Date of Service Date of Service: 09/12/22 Assessment & Plan Assessment and plan (1) Acute hyponatremia: Status: Acute Plan Hyponatremia due to decreased free water clearance. Serum sodium has normalized. Keep her on oral free water restriction. Avoid thiazide diuretics. Respiratory acidosis with metabolic compensation. Anemia multifactorial. Renal function stable at baseline. Time Spent With Patient Time: Total time managing care of this patient today ____ minutes. Progress Note: Quality Stroke Does the patient have a stroke diagnosis?: No
[2022-09-12] MEDS: iohexoL 350 MG/ML 100 ML INFUS..BTL IV (12:02)
[2022-09-12] MEDS: Barium Sulfate Oral (Vanilla) 450 ML ORAL.SUSP 900 ML PO (12:03)
[2022-09-12 12:05] LABS: Glucose, Whole Blood 313 mg/dL (60-115)
[2022-09-12] MEDS: Benztropine Mesylate 1 MG TABLET PO ×2 (12:07→20:45)
[2022-09-12] MEDS: atenoloL 50 MG TABLET PO (12:07)
[2022-09-12] MEDS: Thiamine HCL 100 MG TABLET PO (12:07)
[2022-09-12] MEDS: Divalproex Sodium ER 250 MG TAB.ER.24H 750 MG PO (12:07)
[2022-09-12 12:21] LABS: Venous Blood Gas Refer to POC result
[2022-09-12 12:21] LABS: VBG Base Excess 27.1 mmol/L; VBG HCO3 52 mmol/L (22-26); VBG pCO2 54 mmHg; VBG pH 7.59 (7.32-7.43); VBG pO2 170 mmHg
--- NOTE | 2022-09-12 13:31 | HO.PM.IMPN ---
Subjective Subjective Date of Service: 09/12/22 Interval History: breathing at baseline no fever Review of Systems Review of Systems: Yes all other systems are reviewed and are negative Physical Exam Vital Signs: Vital Signs: Last Vital Signs Temp 98.6 F 09/12/22 12:00 Pulse 86 09/12/22 12:00 Resp 18 09/12/22 12:00 BP 117/70 09/12/22 12:00 Pulse Ox 92 09/12/22 12:00 O2 Del Method Nasal Cannula 09/12/22 12:00 O2 Flow Rate 8 09/12/22 12:00 Oxygen Flow Rate 8 09/08/22 18:38 BMI result Body Mass Index 72.6 Gen: in no acute distress HEENT: sclera anicteric, moist mucus membranes Neck: supple Lungs: diminished Heart: regular rate and rhythm, no murmurs Abd: soft, non-tender, non-distended, morbid obesity Ext: no edema Skin: warm/well-perfused Neuro: alert and oriented x3, no focal findings Psych: appropriate affect Objective Data Active Medications Acetaminophen (Acetaminophen 325 Mg Tablet) 650 mg PO Q6H PRN PRN Reason: Pain, Mild (Pain Scale 1-3) Last Admin: 09/12/22 10:00 Dose: 650 mg Documented By: KVNG Albuterol Sulfate (Albuterol Sulfate 90 Mcg 8 Gm Inhaler) 2 puff INHALE Q4H PRN PRN Reason: Respiratory Distress Amitriptyline HCl (Amitriptyline Hcl 10 Mg Tablet) 10 mg PO BEDTIME [facility] Last Admin: 09/11/22 20:16 Dose: 10 mg Documented By: CASSIDY Atenolol (Atenolol 50 Mg Tablet) 50 mg PO DAILY@1200 SHARI; Protocol Last Admin: 09/12/22 12:07 Dose: 50 mg Documented By: GENARO Atorvastatin Calcium (Atorvastatin Calcium 40 Mg Tablet) 40 mg PO DAILY [facility] Last Admin: 09/12/22 07:58 Dose: 40 mg Documented By: EGNARO Benztropine Mesylate (Benztropine Mesylate 1 Mg Tablet) 1 mg PO BID@1200,2100 SHARI Last Admin: 09/12/22 12:07 Dose: 1 mg Documented By: GENARO Dextrose (Dextrose 50 % 25 Gm/50 Ml Syringe) 25 gm IVPUSH Q15M PRN; Protocol PRN Reason: per Hypoglycemia Standing Ord. Divalproex Sodium (Divalproex Sodium Er 250 Mg Tab.Er.24h) 750 mg PO DAILY@1200 SHARI Last Admin: 09/12/22 12:07 Dose: 750 mg Documented By: GENARO Divalproex Sodium (Divalproex Sodium Er 500 Mg Tab.Er.24h) 1,000 mg PO BEDTIME [facility] Last Admin: 09/11/22 20:16 Dose: 1,000 mg Documented By: CASSIDY Docusate Sodium (Docusate Sodium 100 Mg Capsule) 100 mg PO DAILY@1200 PRN PRN Reason: Constipation Last Admin: 09/10/22 12:24 Dose: 100 mg Documented By: TRIPP Enoxaparin Sodium (Enoxaparin Sodium 40 Mg/0.4 Ml Syringe) 40 mg SUBCUT Q12H [facility] Last Admin: 09/12/22 09:51 Dose: 40 mg Documented By: GENARO Fluticasone Propionate (Fluticasone Propionate Nasal 16 Gm [place]) 1 spray NOSTRIL-B DAILY [facility] Last Admin: 09/12/22 07:57 Dose: 1 spray Documented By: GENARO Folic Acid (Folic Acid 1 Mg Tablet) 1 mg PO DAILY [facility] Last Admin: 09/12/22 07:58 Dose: 1 mg Documented By: GENARO Furosemide (Furosemide 40 Mg Tablet) 40 mg PO DAILY [facility]; Protocol Last Admin: 09/12/22 07:58 Dose: 40 mg Documented By: GENARO Glucose (Glucose Gel 15 Gm Gel..Gram.) 15 gm PO Q15M PRN; Protocol PRN Reason: per Hypoglycemia Standing Ord. Hydroxyzine HCl (Hydroxyzine Hcl 50 Mg Tablet) 50 mg PO TID PRN PRN Reason: Anxiety Last Admin: 09/10/22 13:11 Dose: 50 mg Documented By: TRIPP Azithromycin 500 mg/ Sodium (Chloride) 250 mls @ 125 mls/hr IV Q24H [facility] Last Infusion: 09/12/22 00:08 Dose: 0 mls/hr Documented By: CASSIDY Ceftriaxone Sodium 2 gm/ (Sodium Chloride) 50 mls @ 100 mls/hr IV Q24H [facility] Last Infusion: 09/12/22 00:40 Dose: 100 mls/hr Documented By: JOE Insulin Glargine (Insulin Glargine,Hum.Rec.Anlog 100 Unit/Ml 10 Ml Vial) 50 unit SUBCUT DAILY [facility] Last Admin: 09/12/22 09:51 Dose: 50 unit Documented By: GENARO Insulin Human Lispro (Insulin Lispro 100 Unit/Ml 3 Ml Vial) 0 unit SUBCUT QIDACHS [facility]; Protocol Last Admin: 09/12/22 12:07 Dose: 8 unit Documented By: GENARO Levothyroxine Sodium (Levothyroxine Sodium 50 Mcg Tablet) 50 mcg PO DAILY@0600 [facility] Last Admin: 09/12/22 06:45 Dose: 50 mcg Documented By: JOE Levothyroxine Sodium (Levothyroxine Sodium 200 Mcg Tablet) 200 mcg PO DAILY@0600 [facility] Last Admin: 09/12/22 06:45 Dose: 200 mcg Documented By: JOE Lisinopril (Lisinopril 10 Mg Tablet) 10 mg PO BEDTIME [facility]; Protocol Last Admin: 09/11/22 20:15 Dose: 10 mg Documented By: CASSIDY Loratadine (Loratadine 10 Mg Tablet) 10 mg PO DAILY PRN PRN Reason: allergies Lurasidone HCl (Lurasidone Hcl 20 Mg Tablet) 60 mg PO DAILY@0700 [facility] Last Admin: 09/12/22 07:58 Dose: 60 mg Documented By: GENARO Melatonin (Melatonin 3 Mg Tablet) 6 mg PO BEDTIME PRN PRN Reason: Insomnia Last Admin: 09/09/22 20:46 Dose: 6 mg Documented By: JULIANN Montelukast Sodium (Montelukast Sodium 10 Mg Tablet) 10 mg PO BEDTIME [facility] Last Admin: 09/11/22 20:15 Dose: 10 mg Documented By: CASSIDY Multivitamins/Vitamin C (Multivitamin Tablet) 1 tab PO DAILY [facility] Last Admin: 09/12/22 07:59 Dose: 1 tab Documented By: GENARO Nicotine (Nicotine 14 Mg Patch.Td24) 14 mg TRANSDERMA DAILY [facility] Last Admin: 09/12/22 08:35 Dose: 14 mg Documented By: GENARO Nicotine Polacrilex (Nicotine Polacrilex 2 Mg Gum) 2 mg BUCCAL Q1H PRN PRN Reason: tob Last Admin: 09/12/22 12:10 Dose: 2 mg Documented By: GENARO Nystatin (Nystatin Powder 15 Gm Bottle) 1 appl TOPICAL TID SHARI; Protocol Last Admin: 09/12/22 08:37 Dose: Not Given Documented By: GENARO Non-Admin Reason: Med Not Available Ondansetron HCl (Ondansetron Hcl 4 Mg/2 Ml Vial) 4 mg IVPUSH Q8H PRN PRN Reason: Nausea and Vomiting Pharmacy Consult (Consult Rx Perform Med Rec) 1 each MISCELLANE ONCE PRN PRN Reason: Consult order Pharmacy Consult (Consult Rx Perform Med Rec) 1 each MISCELLANE ONCE PRN PRN Reason: Consult order Prazosin HCl (Prazosin Hcl 1 Mg Capsule) 1 mg PO BEDTIME [facility]; Protocol Last Admin: 09/11/22 20:15 Dose: 1 mg Documented By: CASSIDY Prazosin HCl (Prazosin Hcl 5 Mg Capsule) 5 mg PO BEDTIME [facility]; Protocol Last Admin: 09/11/22 20:15 Dose: 5 mg Documented By: CASSIDY Quetiapine Fumarate (Quetiapine Fumarate 100 Mg Tablet) 100 mg PO DAILY PRN PRN Reason: anxiety Last Admin: 09/10/22 13:11 Dose: 100 mg Documented By: TRIPP Quetiapine Fumarate (Quetiapine Fumarate 300 Mg Tablet) 600 mg PO BEDTIME [facility] Last Admin: 09/11/22 20:15 Dose: 600 mg Documented By: CASSIDY Sodium Chloride (0.9 % Sodium Chloride Flush 3 Ml Syringe) [facility] Last Admin: 09/12/22 07:59 Dose: 3 ml Documented By: GENARO Sodium Chloride (0.9 % Sodium Chloride Flush 3 Ml Syringe) 3 ml IVFLUSH QSMEFT [facility] Last Admin: 09/12/22 07:59 Dose: Not Given Documented By: GENARO Non-Admin Reason: Duplicate Order Sumatriptan Succinate (Sumatriptan Succinate 50 Mg Tablet) 50 mg PO DAILY MRX1 PRN PRN Reason: Headache Last Admin: 09/10/22 10:58 Dose: 50 mg Documented By: TRIPP Thiamine HCl (Thiamine Hcl 100 Mg Tablet) 100 mg PO DAILY@1200 [facility] Last Admin: 09/12/22 12:07 Dose: 100 mg Documented By: GENARO Vitamin D (Cholecalciferol (Vitamin D3) 25 Mcg Tablet) 50 mcg PO DAILY [facility] Last Admin: 09/12/22 07:59 Dose: 50 mcg Documented By: GENARO Labs 09/12/22 06:08 09/12/22 06:08 Labs: Laboratory Results - last 24 hr 09/11/22 09/11/22 09/12/22 16:10 19:53 06:08 MCV 88.5 MCH 27.8 MCHC 31.4 RDW 14.4 Plt Count 209 MPV 11.8 Immature Gran % (Auto) 2.8 H Neut % (Auto) 41.7 L Lymph % (Auto) 36.9 [place] % (Auto) 16.0 H Eos % (Auto) 1.6 Baso % (Auto) 1.0 Lymph # (Auto) 2.1 [place] # (Auto) 0.9 Eos # (Auto) 0.1 Baso # (Auto) 0.1 Abs Immat Gran (auto) 0.16 H Absolute Neuts (auto) 2.4 Absolute Nucleated RBC 0.000 Nucleated RBC % (auto) 0.0 VBG pH VBG pCO2 VBG pO2 VBG HCO3 VBG O2 Saturation VBG Base Excess Anion Gap Estim Creat Clear Calc Estimated GFR POC Glucose 408 H* 286 H Fasting Glucose Calcium Total Bilirubin AST ALT Alkaline Phosphatase Total Protein Albumin Procalcitonin 09/12/22 09/12/22 09/12/22 06:08 07:10 12:01 MCV MCH MCHC RDW Plt Count MPV Immature Gran % (Auto) Neut % (Auto) Lymph % (Auto) [place] % (Auto) Eos % (Auto) Baso % (Auto) Lymph # (Auto) [place] # (Auto) Eos # (Auto) Baso # (Auto) Abs Immat Gran (auto) Absolute Neuts (auto) Absolute Nucleated RBC Nucleated RBC % (auto) VBG pH VBG pCO2 VBG pO2 VBG HCO3 VBG O2 Saturation VBG Base Excess Anion Gap 13 Estim Creat Clear Calc 151.5 Estimated GFR > 60 POC Glucose 226 H 313 H Fasting Glucose 215 H Calcium 9.6 D Total Bilirubin 0.3 AST 18 ALT 17 Alkaline Phosphatase 61 Total Protein 6.9 Albumin 3.6 Procalcitonin 0.06 09/12/22 12:12 MCV MCH MCHC RDW Plt Count MPV Immature Gran % (Auto) Neut % (Auto) Lymph % (Auto) [place] % (Auto) Eos % (Auto) Baso % (Auto) Lymph # (Auto) [place] # (Auto) Eos # (Auto) Baso # (Auto) Abs Immat Gran (auto) Absolute Neuts (auto) Absolute Nucleated RBC Nucleated RBC % (auto) VBG pH 7.59 H VBG pCO2 54 VBG pO2 170 VBG HCO3 52 H VBG O2 Saturation 100.0 VBG Base Excess 27.1 Anion Gap Estim Creat Clear Calc Estimated GFR POC Glucose Fasting Glucose Calcium Total Bilirubin AST ALT Alkaline Phosphatase Total Protein Albumin Procalcitonin Assessment and Plan (1) E coli bacteremia: Status: Acute (2) Acute hyponatremia: Status: Acute (3) T2DM (type 2 diabetes mellitus): Status: Acute Plan d#5 52yo F with COPD, restrictive lung disease and MORGAN on home NIV, HTN, HLD, DM2, schizoaffective disorder, morbid obesity, hypothyroidism, and PTSD who fell at home and was found to have hypoxia, SaO2 76% on 10L NC (usually on 5-10L via NC) found to have PNA + E coli bacteremia # acute/chronic hypoxic/hypercarbic resp failure due to PNA - continue O2 as per home regimen - hypercarbia is metabolically compesnated - continue biPAP at night, on NIV at home - d#5 ceftriaxone/azithro, PCT low - continue nebs # E coli bacteremia [R amp, gent, levoflox] - ?source. ceftriaxone d#5, ID consult pending. # hypoNa - corrected with fluid restriction # DM2 - add back basal insulin, continue correction-dose lispro # HTN - continue atenolol, lisinopril, furosemide # schizoaffective - continue valproate, benztropine, amitriptyline, quetiapine, lurasidone, prazosin # hypothyroid - LT4 # tob abuse - NRT # VTE ppx: LMWH # dispo: anticipate home with [facility] in next 1-2d In my clinical judgment, the patient requires continued inpatient hospitalization for the following reasons: IV ABX Time Spent With Patient Time: Total time managing care of this patient today ___45_ minutes. Quality Stroke Does the patient have a stroke diagnosis?: No VTE Prior VTE?: No VTE Risk Level:: Medical - moderate - high VTE Device Contraindication: Treatment Not Indicated VTE Drug Contraindication: N/A - Med Ordered
[2022-09-12] MEDS: SUMAtriptan succinate 50 MG TABLET PO (13:55)
--- NOTE | 2022-09-12 14:03 | MHC.CM.PN ---
Home/Resume services is the goal pending ID Consult. CM will follow.
[2022-09-12 15:33] LABS: Glucose, Whole Blood 268 mg/dL (60-115)
[2022-09-12] MEDS: metroNIDAZOLE/NS 500 MG/100 ML PIGGYBACK 100 MG IV ×2 (15:46→22:52)
--- NOTE | 2022-09-12 16:18 | W.PM.IDCN ---
History of Present Illness Data of Consult Service Date: 09/12/22 Requesting physician: Deonte Pitts Primary Care Provider: LOUIE Filney HPI Reason for consult: right lung abscess She presents to hospital with shortness of breath and cough. She has high BMI and is on 10 liters oxygen. She has blood E coli CT scan shows possible liver abscess. Urine culture negative. Review of Systems Review of Systems: Yes all other systems are reviewed and are negative [facility] Past Medical History Medical History AAA (abdominal aortic aneurysm) without rupture Acute and chronic respiratory failure with hypoxia ADHD Aortic aneurysm Arthritis Asthma Back pain Chronic respiratory failure Chronic restrictive lung disease COPD (chronic obstructive pulmonary disease) Depression Diabetes Diabetes DM2 (diabetes mellitus, type 2) Fibula fracture Gallstone GERD (gastroesophageal reflux disease) Goiter Hepatitis Hernia History of posttraumatic stress disorder (PTSD) HLD (hyperlipidemia) HLD (hyperlipidemia) HTN (hypertension) Hx of fracture of patella Hypothyroidism Hypothyroidism Migraine Morbid (severe) obesity due to excess calories Morbid obesity Multinodular thyroid Myocardial infarction Obesity due to excess calories MORGAN on CPAP Pneumonia Pneumonitis PTSD (post-traumatic stress disorder) Pulmonary nodules Schizo affective schizophrenia Sleep apnea T2DM (type 2 diabetes mellitus) Umbilical hernia Vitamin D deficiency Family History Family History Father Unknown family medical history Mother Unknown family medical history Sister Ovarian cancer Son No problems noted. Son Depression Son Asthma Bipolar 1 disorder ADHD Daughter No problems noted. Daughter Unknown family medical history Daughter Unknown family medical history Daughter No problems noted. Family history: reviewed and not pertinent Surgical History Surgical History History of incision and drainage Hx of knee surgery Hx of tubal ligation Tubal ligation status Social History Social History Household Members: None Caregiver staying overnight: No Housing: Apartment Are you a primary patient care associate to a significant other at home: No Do you presently have visiting nurse or other home services: No 75 years or older and lives alone: No Unable to assess alcohol history related to: Unable to respond Alcohol intake: never Patient Tobacco Use Status: Current everyday Tobacco user Tobacco use type: Cigarette Cigarette Packs Per Day: 6 Years Smoked: 35 e-Cigarette/Vaping Use: Currently Using Substance Use Type: Marijuana Advance Directives Date on File: 09/13/21 service: No Current occupational status: unemployed Meds Allergies Allergy/AdvReac Type Severity Reaction Status Date / Time metformin Allergy Intermediate Diarrhea Verified 08/18/22 15:01 tetracycline Allergy Intermediate hives Verified 08/18/22 15:01 Latex, Natural Rubber Allergy Rash Verified 08/18/22 15:01 haloperidol [From HALDOL] AdvReac Intermediate Irritable Verified 08/18/22 15:01 duramorph/derivative or Allergy Intermediate hives Uncoded 08/18/22 15:01 morphi Active Medications: Current Medications Acetaminophen (Acetaminophen 325 Mg Tablet) 650 mg PO Q6H PRN PRN Reason: Pain, Mild (Pain Scale 1-3) Last Admin: 09/12/22 10:00 Dose: 650 mg Albuterol Sulfate (Albuterol Sulfate 90 Mcg 8 Gm Inhaler) 2 puff INHALE Q4H PRN PRN Reason: Respiratory Distress Amitriptyline HCl (Amitriptyline Hcl 10 Mg Tablet) 10 mg PO BEDTIME [facility], [facility] Last Admin: 09/11/22 20:16 Dose: 10 mg Atenolol (Atenolol 50 Mg Tablet) 50 mg PO DAILY@1200 SHARI; Protocol Last Admin: 09/12/22 12:07 Dose: 50 mg Atorvastatin Calcium (Atorvastatin Calcium 40 Mg Tablet) 40 mg PO DAILY [facility], [facility] Last Admin: 09/12/22 07:58 Dose: 40 mg Benztropine Mesylate (Benztropine Mesylate 1 Mg Tablet) 1 mg PO BID@1200,2100 SHARI Last Admin: 09/12/22 12:07 Dose: 1 mg Dextrose (Dextrose 50 % 25 Gm/50 Ml Syringe) 25 gm IVPUSH Q15M PRN; Protocol PRN Reason: per Hypoglycemia Standing Ord. Divalproex Sodium (Divalproex Sodium Er 250 Mg Tab.Er.24h) 750 mg PO DAILY@1200 SHARI Last Admin: 09/12/22 12:07 Dose: 750 mg Divalproex Sodium (Divalproex Sodium Er 500 Mg Tab.Er.24h) 1,000 mg PO BEDTIME [facility], [facility] Last Admin: 09/11/22 20:16 Dose: 1,000 mg Docusate Sodium (Docusate Sodium 100 Mg Capsule) 100 mg PO DAILY@1200 PRN PRN Reason: Constipation Last Admin: 09/10/22 12:24 Dose: 100 mg Enoxaparin Sodium (Enoxaparin Sodium 40 Mg/0.4 Ml Syringe) 40 mg SUBCUT Q12H [facility] Last Admin: 09/12/22 09:51 Dose: 40 mg Fluticasone Propionate (Fluticasone Propionate Nasal 16 Gm Doole) 1 spray NOSTRIL-B DAILY [facility] Last Admin: 09/12/22 07:57 Dose: 1 spray Folic Acid (Folic Acid 1 Mg Tablet) 1 mg PO DAILY [facility] Last Admin: 09/12/22 07:58 Dose: 1 mg Furosemide (Furosemide 40 Mg Tablet) 40 mg PO DAILY [facility], [facility]; Protocol Last Admin: 09/12/22 07:58 Dose: 40 mg Glucose (Glucose Gel 15 Gm Gel..Gram.) 15 gm PO Q15M PRN; Protocol PRN Reason: per Hypoglycemia Standing Ord. Hydroxyzine HCl (Hydroxyzine Hcl 50 Mg Tablet) 50 mg PO TID PRN PRN Reason: Anxiety Last Admin: 09/10/22 13:11 Dose: 50 mg Azithromycin 500 mg/ Sodium (Chloride) 250 mls @ 125 mls/hr IV Q24H [facility] Last Infusion: 09/12/22 00:08 Dose: Infused Ceftriaxone Sodium 2 gm/ (Sodium Chloride) 50 mls @ 100 mls/hr IV Q24H [facility] Last Infusion: 09/12/22 00:40 Dose: Infused Metronidazole (Flagyl) 500 mg in 100 mls @ 100 mls/hr IV Q8H [facility] Last Admin: 09/12/22 15:46 Dose: 100 mls/hr Insulin Glargine (Insulin Glargine,Hum.Rec.Anlog 100 Unit/Ml 10 Ml Vial) 50 unit SUBCUT DAILY [facility] Last Admin: 09/12/22 09:51 Dose: 50 unit Insulin Human Lispro (Insulin Lispro 100 Unit/Ml 3 Ml Vial) 0 unit SUBCUT QIDACHS [facility], [facility]; Protocol Last Admin: 09/12/22 12:07 Dose: 8 unit Levothyroxine Sodium (Levothyroxine Sodium 50 Mcg Tablet) 50 mcg PO DAILY@0600 [facility] Last Admin: 09/12/22 06:45 Dose: 50 mcg Levothyroxine Sodium (Levothyroxine Sodium 200 Mcg Tablet) 200 mcg PO DAILY@0600 [facility] Last Admin: 09/12/22 06:45 Dose: 200 mcg Lisinopril (Lisinopril 10 Mg Tablet) 10 mg PO BEDTIME SHARI; Protocol Last Admin: 09/11/22 20:15 Dose: 10 mg Loratadine (Loratadine 10 Mg Tablet) 10 mg PO DAILY PRN PRN Reason: allergies Lurasidone HCl (Lurasidone Hcl 20 Mg Tablet) 60 mg PO DAILY@0700 [facility] Last Admin: 09/12/22 07:58 Dose: 60 mg Melatonin (Melatonin 3 Mg Tablet) 6 mg PO BEDTIME PRN PRN Reason: Insomnia Last Admin: 09/09/22 20:46 Dose: 6 mg Montelukast Sodium (Montelukast Sodium 10 Mg Tablet) 10 mg PO BEDTIME SHARI Last Admin: 09/11/22 20:15 Dose: 10 mg Multivitamins/Vitamin C (Multivitamin Tablet) 1 tab PO DAILY SHARI Last Admin: 09/12/22 07:59 Dose: 1 tab Nicotine (Nicotine 14 Mg Patch.Td24) 14 mg TRANSDERMA DAILY [facility] Last Admin: 09/12/22 08:35 Dose: 14 mg Nicotine Polacrilex (Nicotine Polacrilex 2 Mg Gum) 2 mg BUCCAL Q1H PRN PRN Reason: tob Last Admin: 09/12/22 12:10 Dose: 2 mg Nystatin (Nystatin Powder 15 Gm Bottle) 1 appl TOPICAL TID [facility]; Protocol Last Admin: 09/12/22 15:53 Dose: Not Given Ondansetron HCl (Ondansetron Hcl 4 Mg/2 Ml Vial) 4 mg IVPUSH Q8H PRN PRN Reason: Nausea and Vomiting Pharmacy Consult (Consult Rx Perform Med Rec) 1 each MISCELLANE ONCE PRN PRN Reason: Consult order Pharmacy Consult (Consult Rx Perform Med Rec) 1 each MISCELLANE ONCE PRN PRN Reason: Consult order Prazosin HCl (Prazosin Hcl 1 Mg Capsule) 1 mg PO BEDTIME SHARI; Protocol Last Admin: 09/11/22 20:15 Dose: 1 mg Prazosin HCl (Prazosin Hcl 5 Mg Capsule) 5 mg PO BEDTIME SHARI; Protocol Last Admin: 09/11/22 20:15 Dose: 5 mg Quetiapine Fumarate (Quetiapine Fumarate 100 Mg Tablet) 100 mg PO DAILY PRN PRN Reason: anxiety Last Admin: 09/10/22 13:11 Dose: 100 mg Quetiapine Fumarate (Quetiapine Fumarate 300 Mg Tablet) 600 mg PO BEDTIME [facility] Last Admin: 09/11/22 20:15 Dose: 600 mg Sodium Chloride (0.9 % Sodium Chloride Flush 3 Ml Syringe) 3 ml IVFLUSH [facility] Last Admin: 09/12/22 15:53 Dose: Not Given Sodium Chloride (0.9 % Sodium Chloride Flush 3 Ml Syringe) 3 ml IVFLUSH [facility] Last Admin: 09/12/22 15:53 Dose: Not Given Sumatriptan Succinate (Sumatriptan Succinate 50 Mg Tablet) 50 mg PO DAILY MRX1 PRN PRN Reason: Headache Last Admin: 09/12/22 13:55 Dose: 50 mg Thiamine HCl (Thiamine Hcl 100 Mg Tablet) 100 mg PO DAILY@1200 [facility] Last Admin: 09/12/22 12:07 Dose: 100 mg Vitamin D (Cholecalciferol (Vitamin D3) 25 Mcg Tablet) 50 mcg PO DAILY [facility] Last Admin: 09/12/22 07:59 Dose: 50 mcg Home Medications Medication Instructions Recorded Confirmed Last Taken Type amitriptyline 10 mg tablet 10 mg PO BEDTIME 01/10/20 09/09/22 09/07/21 History benztropine 1 mg tablet 1 mg PO BID@1200,2100 01/10/20 09/09/22 09/08/21 History lisinopril 10 mg tablet 10 mg PO BEDTIME 01/10/20 09/09/22 09/07/21 History montelukast 10 mg tablet 10 mg PO BEDTIME 01/10/20 09/09/22 09/07/21 History multivitamin 1 tab PO DAILY 01/10/20 09/09/22 09/08/21 History thiamine HCl (vitamin B1) 100 mg 100 mg PO DAILY@1200 01/10/20 09/09/22 09/08/21 History tablet atenolol 50 mg tablet 50 mg PO DAILY@1200 04/20/21 09/09/22 09/08/21 History docusate sodium 100 mg capsule 100 mg PO DAILY@1200 PRN 04/20/21 09/09/22 Unknown History Constipation folic acid 1 mg tablet 1 tab PO QAM 04/20/21 09/09/22 09/08/21 History furosemide 40 mg tablet 1 tab PO DAILY 04/20/21 09/09/22 09/08/21 History lurasidone 60 mg tablet (Latuda) 60 mg PO DAILY@0700 04/20/21 09/09/22 09/08/21 History melatonin 5 mg tablet 10 mg PO BEDTIME PRN insomnia 04/20/21 09/09/22 Unknown History prazosin 5 mg capsule 1 cap PO BEDTIME 04/20/21 09/09/22 09/07/21 History alendronate 70 mg tablet 1 tab PO MO@0600 04/22/21 09/09/22 Unknown History diclofenac sodium 1 % topical gel 2 g topical QID PRN Pain 04/22/21 09/09/22 Unknown History fluticasone propionate 50 1 spray intranasal DAILY 04/22/21 09/09/22 09/08/21 History mcg/actuation nasal spray,suspension hydroxyzine HCl 50 mg tablet 1 tab PO TID PRN Anxiety 04/22/21 09/09/22 Unknown History cholecalciferol (vitamin D3) 50 50 mcg PO DAILY 07/20/21 09/09/22 09/08/21 History mcg (2,000 unit) tablet acetaminophen 500 mg tablet 1,000 mg PO Q6H PRN Pain 09/08/21 09/09/22 Unknown History albuterol sulfate 90 mcg/actuation 2 puff inhalation Q4H PRN 09/08/21 09/09/22 Unknown History aerosol inhaler (ProAir HFA) Respiratory Distress lidocaine 5 % topical patch 1 patch topical DAILY 09/08/21 09/09/22 Unknown History white petrolatum 1 appl topical BID PRN Dry Skin 09/08/21 09/09/22 Unknown History Oxygen Home Use 03/25/22 09/09/22 Unknown History nebulizers 03/25/22 09/09/22 Unknown History quetiapine 25 mg tablet 100 mg PO DAILY PRN anxiety 08/18/22 09/09/22 Unknown History quetiapine 400 mg tablet 600 mg PO BEDTIME 08/18/22 09/09/22 Unknown History cetirizine 10 mg tablet 10 mg PO DAILY PRN allergies 09/08/22 09/09/22 Unknown History divalproex 250 mg tablet,extended 750 mg PO DAILY@1200 09/08/22 09/09/22 Unknown History release 24 hr divalproex 500 mg tablet,extended 1,000 mg PO BEDTIME 09/08/22 09/09/22 Unknown History release 24 hr nicotine (polacrilex) 4 mg gum 4 mg PO Q2H PRN Nicotine Cravings 09/08/22 09/09/22 Unknown History prazosin 1 mg capsule 1 mg PO BEDTIME 09/08/22 09/09/22 Unknown History Physical Exam Vital Signs: Vital Signs: Last Vital Signs Temp 97.9 F 09/12/22 15:15 Pulse 78 09/12/22 15:15 Resp 20 09/12/22 15:15 BP 129/69 09/12/22 15:15 Pulse Ox 95 09/12/22 15:15 O2 Del Method BiPAP 09/12/22 15:15 O2 Flow Rate 8 09/12/22 12:00 Oxygen Flow Rate 8 09/08/22 18:38 BMI result Body Mass Index 72.6 Const: Other: sleepy HEENT: Head: Yes normal to inspection Face and sinus: Yes normal facial exam Mouth: Normal oral and palatal mucosa present Teeth and gingiva: dentition normal Eyes: General: appearance normal, both eyes and all related structures Pupils: Equal, round and reactive pupils present Resp: Effort & Inspection: normal respiratory effort Cardio: Rate: regular rate Rhythm: regular rhythm GI: Palpation (GI): Soft to palpation and nontender : General: Yes no CVA tenderness Back/Spine/Pelvis: Back: no CVA tenderness Skin: General skin exam: no rashes or lesions noted Neuro: General: moves all extremities Cranial nerves: Yes Equal, round and reactive pupils present Extrem: General: Yes normal to inspection Psych: Appearance: grossly normal Results Labs 09/12/22 06:08 09/12/22 06:08 Labs: Short CBC 09/12/22 Range/Units 06:08 WBC 5.7 (4.8-10.8) X10*3/uL Hgb 9.7 L (12.0-16.0) g/dl Hct 30.9 L (37.0-47.0) % Plt Count 209 (160-400) X10*3/uL BMP 09/12/22 06:08 Sodium 135 Potassium 3.7 Chloride 81 L Carbon Dioxide 43 H* BUN 16 Creatinine 0.84 Calcium 9.6 D Liver Function 09/12/22 Range/Units 06:08 Total Bilirubin 0.3 (0.0-1.0) mg/dL AST 18 (5-31) U/L ALT 17 (0-31) U/L Alkaline Phosphatase 61 (39-117) U/L Albumin 3.6 (3.5-5.0) g/dL Microbiology Microbiology Results: Microbiology 09/08/22 18:23 Blood - Venous Blood Culture - Final Escherichia coli 09/08/22 18:23 Blood - Venous Blood Culture - Final Escherichia coli Assessment and Plan (1) E coli bacteremia: Status: Acute She has possible liver abscess She has E coli bacteremia,possible liver (2) Acute and chronic respiratory failure: Qualifiers: Respiratory failure complication: hypoxia Qualified Code(s): J96.21 - Acute and chronic respiratory failure with hypoxia Status: Acute Plan Check MRI abdomen Add Flagyl to Ceftriaxone Stop Zithromax. Time Spent With Patient Time: Total time managing care of this patient today ____ minutes.
[2022-09-12 20:18] LABS: Glucose, Whole Blood 192 mg/dL (60-115)
[2022-09-12 20:19] LABS: Glucose, Whole Blood 202 mg/dL (60-115)
[2022-09-12] MEDS: lisinopriL 10 MG TABLET PO (20:43)
[2022-09-12] MEDS: Divalproex Sodium ER 500 MG TAB.ER.24H 1000 MG PO (20:43)
[2022-09-12] MEDS: QUEtiapine Fumarate 300 MG TABLET 600 MG PO (20:44)
[2022-09-12] MEDS: Prazosin HCL 1 MG CAPSULE PO (20:45)
[2022-09-12] MEDS: Amitriptyline HCl 10 MG TABLET PO (20:45)
[2022-09-12] MEDS: Montelukast Sodium 10 MG TABLET PO (20:45)
--- NOTE | 2022-09-12 21:08 | PC.NURSE ---
Patient taken off bipap to medicate, patient requesting to take it off for a while while awake, states I just slept eight hours . Pt educated to call when ready to sleep so bipap can go back on.
[2022-09-12] MEDS: Nystatin Powder 15 GM BOTTLE 1 APPL TOPICAL (22:17)
[2022-09-13] VITALS (8 sets, daily range): BP systolic 108–130; BP diastolic 57–72; PULSE 76–86; RESP 15–20; TEMP 36.2–36.7; O2SAT 93–97
[2022-09-13] MEDS: metroNIDAZOLE/NS 500 MG/100 ML PIGGYBACK 100 MG IV ×3 (06:33→22:58)
[2022-09-13] MEDS: Levothyroxine Sodium 200 MCG TABLET PO (06:37)
[2022-09-13] MEDS: Levothyroxine Sodium 50 MCG TABLET PO (06:37)
[2022-09-13] MEDS: Lurasidone HCl 20 MG TABLET 60 MG PO (06:37)
[2022-09-13 06:42] LABS: Venous Blood Gas Refer to POC result
[2022-09-13 06:43] LABS: VBG Base Excess 31.7 mmol/L; VBG HCO3 59 mmol/L (22-26); VBG pCO2 67 mmHg; VBG pH 7.55 (7.32-7.43); VBG pO2 204 mmHg
[2022-09-13 06:50] LABS: Hematocrit 32.8 % (37.0-47.0); Hemoglobin 10.2 g/dl (12.0-16.0); Mean Corpuscular HGB Conc 31.1 g/dl (31.0-35.0); Mean Corpuscular Volume 90.1 fL (80.0-98.0); Platelet Count 222 X10*3/uL (160-400); Red Blood Count 3.64 X10*6/uL (4.20-5.50); Red Cell Distribution Width 14.4 % (11.0-16.0); White Blood Count 5.3 X10*3/uL (4.8-10.8)
[2022-09-13 07:10] LABS: Blood Urea Nitrogen 11 mg/dL (9-16); Calcium 9.6 mg/dL (8.4-10.2); Creatinine Clr Calc Pharmacy 187.1; Estimated Glomerular Filt Rate > 60; Glucose Random 179 mg/dL (60-115)
[2022-09-13 07:16] LABS: Anion Gap 17 (12-20)
[2022-09-13 07:25] LABS: Carbon Dioxide 42 mmol/L (22-29); Chloride 84 mmol/L (96-108); Potassium 3.8 mmol/L (3.3-5.1); Sodium 139 mmol/L (135-145)
[2022-09-13] MEDS: Furosemide 40 MG TABLET PO (08:17)
[2022-09-13] MEDS: Nicotine Polacrilex 2 MG GUM BUCCAL (08:17)
[2022-09-13] MEDS: Nicotine 14 MG PATCH.TD24 TRANSDERMA (08:17)
[2022-09-13] MEDS: Atorvastatin Calcium 40 MG TABLET PO (08:17)
[2022-09-13] MEDS: Cholecalciferol (Vitamin D3) 25 MCG TABLET 50 MCG PO (08:17)
[2022-09-13] MEDS: Multivitamin TABLET 1 TAB PO (08:17)
[2022-09-13] MEDS: Insulin Lispro 100 UNIT/ML 3 ML VIAL SUBCUT ×4 (08:18→20:34)
[2022-09-13] MEDS: Folic Acid 1 MG TABLET PO (08:18)
[2022-09-13] MEDS: Insulin Glargine,Hum.rec.anlog 100 UNIT/ML 10 ML VIAL 50 UNIT SUBCUT (08:18)
[2022-09-13] MEDS: Nystatin Powder 15 GM BOTTLE 1 APPL TOPICAL ×3 (08:19→20:45)
[2022-09-13] MEDS: Enoxaparin Sodium 40 MG/0.4 ML SYRINGE SUBCUT (08:19)
[2022-09-13] MEDS: 0.9 % Sodium Chloride Flush 3 ML SYRINGE IVFLUSH ×3 (08:23→20:37)
[2022-09-13] MEDS: Fluticasone Propionate Nasal 16 GM SPRAY 1 SPRAY NOSTRIL-B (08:30)
[2022-09-13 10:54] LABS: Glucose, Whole Blood 198 mg/dL (60-115)
[2022-09-13 11:06] LABS: Glucose, Whole Blood 339 mg/dL (60-115)
[2022-09-13] MEDS: Benztropine Mesylate 1 MG TABLET PO ×2 (12:02→20:33)
[2022-09-13] MEDS: atenoloL 50 MG TABLET PO (12:02)
[2022-09-13] MEDS: Divalproex Sodium ER 250 MG TAB.ER.24H 750 MG PO (12:02)
[2022-09-13] MEDS: Thiamine HCL 100 MG TABLET PO (12:02)
--- NOTE | 2022-09-13 13:17 | HO.PM.IMPN ---
Subjective Subjective Date of Service: 09/13/22 Interval History: pt breathing at baseline, feeling stronger no fever Review of Systems Review of Systems: Yes all other systems are reviewed and are negative Physical Exam Vital Signs: Vital Signs: Last Vital Signs Temp 98.1 F 09/13/22 11:25 Pulse 80 09/13/22 11:25 Resp 20 09/13/22 11:25 BP 126/65 09/13/22 11:25 Pulse Ox 94 09/13/22 11:25 O2 Del Method Nasal Cannula 09/13/22 11:25 O2 Flow Rate 6 09/13/22 11:25 Oxygen Flow Rate 8 09/08/22 18:38 BMI result Body Mass Index 72.6 Gen: in no acute distress HEENT: sclera anicteric, moist mucus membranes Neck: supple Lungs: diminished Heart: regular rate and rhythm, no murmurs Abd: soft, non-tender, non-distended, morbid obesity Ext: no edema Skin: warm/well-perfused Neuro: alert and oriented x3, no focal findings Psych: appropriate affect Objective Data Active Medications Acetaminophen (Acetaminophen 325 Mg Tablet) 650 mg PO Q6H PRN PRN Reason: Pain, Mild (Pain Scale 1-3) Last Admin: 09/12/22 21:07 Dose: 650 mg Documented By: TERRY Albuterol Sulfate (Albuterol Sulfate 90 Mcg 8 Gm Inhaler) 2 puff INHALE Q4H PRN PRN Reason: Respiratory Distress Amitriptyline HCl (Amitriptyline Hcl 10 Mg Tablet) 10 mg PO BEDTIME [facility] Last Admin: 09/12/22 20:45 Dose: 10 mg Documented By: TERRY Atenolol (Atenolol 50 Mg Tablet) 50 mg PO DAILY@1200 [facility]; Protocol Last Admin: 09/13/22 12:02 Dose: 50 mg Documented By: GENARO Atorvastatin Calcium (Atorvastatin Calcium 40 Mg Tablet) 40 mg PO DAILY [facility] Last Admin: 09/13/22 08:17 Dose: 40 mg Documented By: GENARO Benztropine Mesylate (Benztropine Mesylate 1 Mg Tablet) 1 mg PO BID@1200,2100 [facility] Last Admin: 09/13/22 12:02 Dose: 1 mg Documented By: GENARO Dextrose (Dextrose 50 % 25 Gm/50 Ml Syringe) 25 gm IVPUSH Q15M PRN; Protocol PRN Reason: per Hypoglycemia Standing Ord. Divalproex Sodium (Divalproex Sodium Er 250 Mg Tab.Er.24h) 750 mg PO DAILY@1200 [facility] Last Admin: 09/13/22 12:02 Dose: 750 mg Documented By: GENARO Divalproex Sodium (Divalproex Sodium Er 500 Mg Tab.Er.24h) 1,000 mg PO BEDTIME [facility] Last Admin: 09/12/22 20:43 Dose: 1,000 mg Documented By: TERRY Docusate Sodium (Docusate Sodium 100 Mg Capsule) 100 mg PO DAILY@1200 PRN PRN Reason: Constipation Last Admin: 09/10/22 12:24 Dose: 100 mg Documented By: TRIPP Enoxaparin Sodium (Enoxaparin Sodium 40 Mg/0.4 Ml Syringe) 40 mg SUBCUT Q12H [facility] Last Admin: 09/13/22 08:19 Dose: 40 mg Documented By: GENARO Fluticasone Propionate (Fluticasone Propionate Nasal 16 Gm [place]) 1 spray NOSTRIL-B DAILY [facility] Last Admin: 09/13/22 08:30 Dose: 1 spray Documented By: GENARO Folic Acid (Folic Acid 1 Mg Tablet) 1 mg PO DAILY [facility] Last Admin: 09/13/22 08:18 Dose: 1 mg Documented By: GENARO Furosemide (Furosemide 40 Mg Tablet) 40 mg PO DAILY [facility]; Protocol Last Admin: 09/13/22 08:17 Dose: 40 mg Documented By: GENARO Glucose (Glucose Gel 15 Gm Gel..Gram.) 15 gm PO Q15M PRN; Protocol PRN Reason: per Hypoglycemia Standing Ord. Hydroxyzine HCl (Hydroxyzine Hcl 50 Mg Tablet) 50 mg PO TID PRN PRN Reason: Anxiety Last Admin: 09/10/22 13:11 Dose: 50 mg Documented By: TRIPP Ceftriaxone Sodium 2 gm/ (Sodium Chloride) 50 mls @ 100 mls/hr IV Q24H [facility] Last Infusion: 09/12/22 22:50 Dose: 0 mls/hr Documented By: TERRY Metronidazole (Flagyl) 500 mg in 100 mls @ 100 mls/hr IV Q8H [facility] Last Infusion: 09/13/22 08:26 Dose: 0 mls/hr Documented By: GENARO Insulin Glargine (Insulin Glargine,Hum.Rec.Anlog 100 Unit/Ml 10 Ml Vial) 50 unit SUBCUT DAILY [facility] Last Admin: 09/13/22 08:18 Dose: 50 unit Documented By: GENARO Insulin Human Lispro (Insulin Lispro 100 Unit/Ml 3 Ml Vial) 0 unit SUBCUT QIDACHS [facility]; Protocol Last Admin: 09/13/22 12:02 Dose: 8 unit Documented By: GENARO Levothyroxine Sodium (Levothyroxine Sodium 50 Mcg Tablet) 50 mcg PO DAILY@0600 [facility] Last Admin: 09/13/22 06:37 Dose: 50 mcg Documented By: NEAL Levothyroxine Sodium (Levothyroxine Sodium 200 Mcg Tablet) 200 mcg PO DAILY@0600 [facility] Last Admin: 09/13/22 06:37 Dose: 200 mcg Documented By: NEAL Lisinopril (Lisinopril 10 Mg Tablet) 10 mg PO BEDTIME [facility]; Protocol Last Admin: 09/12/22 20:43 Dose: 10 mg Documented By: TERRY Loratadine (Loratadine 10 Mg Tablet) 10 mg PO DAILY PRN PRN Reason: allergies Lurasidone HCl (Lurasidone Hcl 20 Mg Tablet) 60 mg PO DAILY@0700 [facility] Last Admin: 09/13/22 06:37 Dose: 60 mg Documented By: NEAL Melatonin (Melatonin 3 Mg Tablet) 6 mg PO BEDTIME PRN PRN Reason: Insomnia Last Admin: 09/09/22 20:46 Dose: 6 mg Documented By: JULIANN Montelukast Sodium (Montelukast Sodium 10 Mg Tablet) 10 mg PO BEDTIME [facility] Last Admin: 09/12/22 20:45 Dose: 10 mg Documented By: TERRY Multivitamins/Vitamin C (Multivitamin Tablet) 1 tab PO DAILY [facility] Last Admin: 09/13/22 08:17 Dose: 1 tab Documented By: GENARO Nicotine (Nicotine 14 Mg Patch.Td24) 14 mg TRANSDERMA DAILY [facility] Last Admin: 09/13/22 08:17 Dose: 14 mg Documented By: GENARO Nicotine Polacrilex (Nicotine Polacrilex 2 Mg Gum) 2 mg BUCCAL Q1H PRN PRN Reason: tob Last Admin: 09/13/22 08:17 Dose: 2 mg Documented By: GENARO Nystatin (Nystatin Powder 15 Gm Bottle) 1 appl TOPICAL TID [facility]; Protocol Last Admin: 09/13/22 08:19 Dose: 1 appl Documented By: GENARO Ondansetron HCl (Ondansetron Hcl 4 Mg/2 Ml Vial) 4 mg IVPUSH Q8H PRN PRN Reason: Nausea and Vomiting Pharmacy Consult (Consult Rx Perform Med Rec) 1 each MISCELLANE ONCE PRN PRN Reason: Consult order Pharmacy Consult (Consult Rx Perform Med Rec) 1 each MISCELLANE ONCE PRN PRN Reason: Consult order Prazosin HCl (Prazosin Hcl 1 Mg Capsule) 1 mg PO BEDTIME [facility]; Protocol Last Admin: 09/12/22 20:45 Dose: 1 mg Documented By: TERRY Quetiapine Fumarate (Quetiapine Fumarate 100 Mg Tablet) 100 mg PO DAILY PRN PRN Reason: anxiety Last Admin: 09/10/22 13:11 Dose: 100 mg Documented By: TRIPP Quetiapine Fumarate (Quetiapine Fumarate 300 Mg Tablet) 600 mg PO BEDTIME [facility] Last Admin: 09/12/22 20:44 Dose: 600 mg Documented By: TERRY Sodium Chloride (0.9 % Sodium Chloride Flush 3 Ml Syringe) 3 ml IVFLUSH [facility] Last Admin: 09/13/22 08:23 Dose: 3 ml Documented By: GENARO Sodium Chloride (0.9 % Sodium Chloride Flush 3 Ml Syringe) 3 ml IVFLUSH [facility] Last Admin: 09/13/22 08:23 Dose: Not Given Documented By: GENARO Non-Admin Reason: Duplicate Order Sumatriptan Succinate (Sumatriptan Succinate 50 Mg Tablet) 50 mg PO DAILY MRX1 PRN PRN Reason: Headache Last Admin: 09/12/22 13:55 Dose: 50 mg Documented By: GENARO Thiamine HCl (Thiamine Hcl 100 Mg Tablet) 100 mg PO DAILY@1200 [facility] Last Admin: 09/13/22 12:02 Dose: 100 mg Documented By: GENARO Vitamin D (Cholecalciferol (Vitamin D3) 25 Mcg Tablet) 50 mcg PO DAILY [facility] Last Admin: 09/13/22 08:17 Dose: 50 mcg Documented By: GENARO Labs 09/13/22 06:29 09/13/22 06:29 Labs: Laboratory Results - last 24 hr 09/12/22 09/12/22 09/12/22 15:27 20:13 20:16 MCV MCH MCHC RDW Plt Count MPV Absolute Nucleated RBC Nucleated RBC % (auto) VBG pH VBG pCO2 VBG pO2 VBG HCO3 VBG O2 Saturation VBG Base Excess Anion Gap Estim Creat Clear Calc Estimated GFR POC Glucose 268 H 192 H 202 H Random Glucose Calcium 09/13/22 09/13/22 09/13/22 06:29 06:29 06:35 MCV 90.1 MCH 28.0 MCHC 31.1 RDW 14.4 Plt Count 222 MPV 11.0 Absolute Nucleated RBC 0.000 Nucleated RBC % (auto) 0.0 VBG pH 7.55 H VBG pCO2 67 VBG pO2 204 VBG HCO3 59 H VBG O2 Saturation 100.0 VBG Base Excess 31.7 Anion Gap 17 Estim Creat Clear Calc 187.1 Estimated GFR > 60 POC Glucose Random Glucose 179 H Calcium 9.6 09/13/22 09/13/22 07:18 11:02 MCV MCH MCHC RDW Plt Count MPV Absolute Nucleated RBC Nucleated RBC % (auto) VBG pH VBG pCO2 VBG pO2 VBG HCO3 VBG O2 Saturation VBG Base Excess Anion Gap Estim Creat Clear Calc Estimated GFR POC Glucose 198 H 339 H Random Glucose Calcium CT A/P 09/12/22 5 cm abdominal aortic aneurysm. This is increased in size from December 2019 exam. Vascular surgery consultation recommended. Enlarged liver. New peripheral low-attenuation areas in the liver. This may represent atypical appearance of fatty infiltration. Liver infarcts or abscesses should also be considered. Follow-up MR of liver may be helpful. Gallstone. Constipation. Atelectasis or small infiltrates at the lung bases. Assessment and Plan (1) E coli bacteremia: Status: Acute (2) Acute hyponatremia: Status: Acute (3) T2DM (type 2 diabetes mellitus): Status: Acute Plan d#6 52yo F with COPD, restrictive lung disease and MORGAN on home NIV, HTN, HLD, DM2, schizoaffective disorder, morbid obesity, hypothyroidism, and PTSD who fell at home and was found to have hypoxia, SaO2 76% on 10L [place] (usually on 5-10L via NC) found to have PNA + E coli bacteremia # acute/chronic hypoxic/hypercarbic resp failure due to PNA - continue O2 as per home regimen - hypercarbia is metabolically compesnated - continue biPAP at night, on NIV at home - completed 5 days of ceftriaxone + azithromycin - continue nebs # E coli bacteremia [R amp, gent, levoflox] - ?source. ceftriaxone d#6, ID consulted # liver lesions, r/o abscesses - discussed with IR. Pt does not fit in our MRI. They are able to offer a needle biopsy of one of the lesions in the left lobe. Pt agrees to procedure, will make NPO # AAA - 2019->2022 grew from 3 to 5 cm. needs Vascular Surg consult [can be outpt] # hypoNa - corrected with fluid restriction # DM2 - add back basal insulin, continue correction-dose lispro # HTN - continue atenolol, lisinopril, furosemide # schizoaffective - continue valproate, benztropine, amitriptyline, quetiapine, lurasidone, prazosin # hypothyroid - LT4 # tob abuse - NRT # VTE ppx: LMWH held for biopsy # dispo: anticipate home with VNA in next 1-2d In my clinical judgment, the patient requires continued inpatient hospitalization for the following reasons: IV ABX, r/o abscess Time Spent With Patient Time: Total time managing care of this patient today __55__ minutes. Quality Stroke Does the patient have a stroke diagnosis?: No VTE Prior VTE?: No VTE Risk Level:: Medical - moderate - high VTE Device Contraindication: Treatment Not Indicated VTE Drug Contraindication: N/A - Med Ordered
[2022-09-13] MEDS: Acetaminophen 325 MG TABLET 650 MG PO ×2 (14:46→20:33)
[2022-09-13 16:18] LABS: Glucose, Whole Blood 269 mg/dL (60-115)
[2022-09-13 20:02] LABS: Glucose, Whole Blood 243 mg/dL (60-115)
[2022-09-13] MEDS: Montelukast Sodium 10 MG TABLET PO (20:33)
[2022-09-13] MEDS: Prazosin HCL 1 MG CAPSULE PO (20:33)
[2022-09-13] MEDS: Amitriptyline HCl 10 MG TABLET PO (20:33)
[2022-09-13] MEDS: QUEtiapine Fumarate 300 MG TABLET 600 MG PO (20:34)
[2022-09-13] MEDS: Divalproex Sodium ER 500 MG TAB.ER.24H 1000 MG PO (20:34)
[2022-09-13] MEDS: lisinopriL 10 MG TABLET PO (20:34)
[2022-09-13] MEDS: cefTRIAXone sodium 2 GM in 0.9 % Sodium Chloride 50 ML IV (22:20)
[2022-09-14] VITALS (7 sets, daily range): BP systolic 95–125; BP diastolic 54–77; PULSE 69–92; RESP 16–20; TEMP 36.1–37.1; O2SAT 92–99
[2022-09-14] MEDS: metroNIDAZOLE/NS 500 MG/100 ML PIGGYBACK 100 MG IV ×3 (06:31→23:28)
[2022-09-14 06:48] LABS: Hematocrit 32.8 % (37.0-47.0); Hemoglobin 10.2 g/dl (12.0-16.0); Mean Corpuscular HGB Conc 31.1 g/dl (31.0-35.0); Mean Corpuscular Hemoglobin 27.6 pg (27.0-33.0); Mean Corpuscular Volume 88.9 fL (80.0-98.0); Mean Platelet Volume 11.4 fL (9.4-12.3); Platelet Count 240 X10*3/uL (160-400); Red Blood Count 3.69 X10*6/uL (4.20-5.50); Red Cell Distribution Width 14.3 % (11.0-16.0); White Blood Count 6.3 X10*3/uL (4.8-10.8)
[2022-09-14 06:57] LABS: INTERNATIONAL NORM RATIO 1.1 (0.9-1.1); Prothrombin Time 12.3 SEC (10.0-13.1)
[2022-09-14 06:59] LABS: Partial Thromboplastin Time 27.6 SEC (26.0-36.4)
[2022-09-14 07:06] LABS: Glucose, Whole Blood 224 mg/dL (60-115)
[2022-09-14] MEDS: Multivitamin TABLET 1 TAB PO (07:43)
[2022-09-14] MEDS: Lurasidone HCl 20 MG TABLET 60 MG PO (07:43)
[2022-09-14] MEDS: Nicotine Polacrilex 2 MG GUM BUCCAL ×5 (07:43→22:43)
[2022-09-14] MEDS: Acetaminophen 325 MG TABLET 650 MG PO ×2 (07:43→22:40)
[2022-09-14] MEDS: Furosemide 40 MG TABLET PO (07:44)
[2022-09-14] MEDS: Nicotine 14 MG PATCH.TD24 TRANSDERMA (07:44)
[2022-09-14] MEDS: hydrOXYzine HCL 50 MG TABLET PO (07:44)
[2022-09-14] MEDS: Folic Acid 1 MG TABLET PO (07:45)
[2022-09-14] MEDS: QUEtiapine Fumarate 100 MG TABLET PO (07:45)
[2022-09-14] MEDS: Atorvastatin Calcium 40 MG TABLET PO (07:45)
[2022-09-14] MEDS: Insulin Lispro 100 UNIT/ML 3 ML VIAL SUBCUT ×3 (07:45→22:45)
[2022-09-14] MEDS: Cholecalciferol (Vitamin D3) 25 MCG TABLET 50 MCG PO (07:45)
[2022-09-14] MEDS: Loratadine 10 MG TABLET PO (07:45)
[2022-09-14] MEDS: Insulin Glargine,Hum.rec.anlog 100 UNIT/ML 10 ML VIAL 50 UNIT SUBCUT (07:46)
[2022-09-14] MEDS: 0.9 % Sodium Chloride Flush 3 ML SYRINGE IVFLUSH ×5 (07:47→22:46)
[2022-09-14] MEDS: Nystatin Powder 15 GM BOTTLE 1 APPL TOPICAL ×3 (07:47→22:50)
[2022-09-14 10:00] LABS: Glucose, Whole Blood 190 mg/dL (60-115)
--- NOTE | 2022-09-14 10:28 | MHC.CM.PN ---
Per ROUNDS discussion, Patient is having a Liver Biopsy today and is not yet medically cleared for dc; Patient may benefit from a PT eval to assist with disposition. CM will follow.
--- NOTE | 2022-09-14 10:58 | P.PNIM_ITS ---
Subjective Subjective Date of Service: 09/14/22 Interval History: no fever no dyspnea uses BiPAP at night Review of Systems Review of Systems: Yes all other systems are reviewed and are negative Physical Exam Vital Signs: Vital Signs: Last Vital Signs Temp 98.7 F 09/14/22 07:16 Pulse 69 09/14/22 07:16 Resp 20 09/14/22 07:16 BP 99/54 L 09/14/22 07:16 Pulse Ox 97 09/14/22 07:16 O2 Del Method BiPAP 09/14/22 07:16 O2 Flow Rate 6 09/13/22 23:31 Oxygen Flow Rate 8 09/08/22 18:38 BMI result Body Mass Index 72.6 Gen: in no acute distress HEENT: sclera anicteric, moist mucus membranes Neck: supple Lungs: diminished Heart: regular rate and rhythm, no murmurs Abd: soft, non-tender, non-distended, morbid obesity Ext: no edema Skin: warm/well-perfused Neuro: alert and oriented x3, no focal findings Psych: appropriate affect Objective Data Active Medications Acetaminophen (Acetaminophen 325 Mg Tablet) 650 mg PO Q6H PRN PRN Reason: Pain, Mild (Pain Scale 1-3) Last Admin: 09/14/22 07:43 Dose: 650 mg Documented By: MACRINA Albuterol Sulfate (Albuterol Sulfate 90 Mcg 8 Gm Inhaler) 2 puff INHALE Q4H PRN PRN Reason: Respiratory Distress Amitriptyline HCl (Amitriptyline Hcl 10 Mg Tablet) 10 mg PO BEDTIME [facility] Last Admin: 09/13/22 20:33 Dose: 10 mg Documented By: NEAL Atenolol (Atenolol 50 Mg Tablet) 50 mg PO DAILY@1200 [facility]; Protocol Last Admin: 09/13/22 12:02 Dose: 50 mg Documented By: GENARO Atorvastatin Calcium (Atorvastatin Calcium 40 Mg Tablet) 40 mg PO DAILY [facility] Last Admin: 09/14/22 07:45 Dose: 40 mg Documented By: MACRINA Benztropine Mesylate (Benztropine Mesylate 1 Mg Tablet) 1 mg PO BID@1200,2100 [facility] Last Admin: 09/13/22 20:33 Dose: 1 mg Documented By: TERRY Dextrose (Dextrose 50 % 25 Gm/50 Ml Syringe) 25 gm IVPUSH Q15M PRN; Protocol PRN Reason: per Hypoglycemia Standing Ord. Divalproex Sodium (Divalproex Sodium Er 250 Mg Tab.Er.24h) 750 mg PO DAILY@1200 [facility] Last Admin: 09/13/22 12:02 Dose: 750 mg Documented By: GENARO Divalproex Sodium (Divalproex Sodium Er 500 Mg Tab.Er.24h) 1,000 mg PO BEDTIME [facility] Last Admin: 09/13/22 20:34 Dose: 1,000 mg Documented By: TERRY Docusate Sodium (Docusate Sodium 100 Mg Capsule) 100 mg PO DAILY@1200 PRN PRN Reason: Constipation Last Admin: 09/10/22 12:24 Dose: 100 mg Documented By: TRIPP Enoxaparin Sodium (Enoxaparin Sodium 40 Mg/0.4 Ml Syringe) 40 mg SUBCUT Q12H [facility] Last Admin: 09/13/22 08:19 Dose: 40 mg Documented By: GENARO Fluticasone Propionate (Fluticasone Propionate Nasal 16 Gm [place]) 1 spray NOSTRIL-B DAILY [facility] Last Admin: 09/14/22 08:02 Dose: Not Given Documented By: MACRINA Non-Admin Reason: Patient Refused Folic Acid (Folic Acid 1 Mg Tablet) 1 mg PO DAILY [facility] Last Admin: 09/14/22 07:45 Dose: 1 mg Documented By: MACRINA Furosemide (Furosemide 40 Mg Tablet) 40 mg PO DAILY [facility]; Protocol Last Admin: 09/14/22 07:44 Dose: 40 mg Documented By: MACRINA Glucose (Glucose Gel 15 Gm Gel..Gram.) 15 gm PO Q15M PRN; Protocol PRN Reason: per Hypoglycemia Standing Ord. Hydroxyzine HCl (Hydroxyzine Hcl 50 Mg Tablet) 50 mg PO TID PRN PRN Reason: Anxiety Last Admin: 09/14/22 07:44 Dose: 50 mg Documented By: MACRINA Ceftriaxone Sodium 2 gm/ (Sodium Chloride) 50 mls @ 100 mls/hr IV Q24H [facility] Last Infusion: 09/13/22 22:53 Dose: 0 mls/hr Documented By: TERYR Metronidazole (Flagyl) 500 mg in 100 mls @ 100 mls/hr IV Q8H [facility] Last Infusion: 09/14/22 07:59 Dose: 0 mls/hr Documented By: MACRINA Insulin Glargine (Insulin Glargine,Hum.Rec.Anlog 100 Unit/Ml 10 Ml Vial) 50 unit SUBCUT DAILY [facility] Last Admin: 09/14/22 07:46 Dose: 50 unit Documented By: MACRINA Insulin Human Lispro (Insulin Lispro 100 Unit/Ml 3 Ml Vial) 0 unit SUBCUT QIDACHS [facility]; Protocol Last Admin: 09/14/22 10:16 Dose: Not Given Documented By: MACRINA Non-Admin Reason: NPO Levothyroxine Sodium (Levothyroxine Sodium 50 Mcg Tablet) 50 mcg PO DAILY@0600 [facility] Last Admin: 09/14/22 05:47 Dose: Not Given Documented By: TERRY Non-Admin Reason: NPO Levothyroxine Sodium (Levothyroxine Sodium 200 Mcg Tablet) 200 mcg PO DAILY@0600 [facility] Last Admin: 09/14/22 08:01 Dose: Not Given Lisinopril (Lisinopril 10 Mg Tablet) 10 mg PO BEDTIME [facility]; Protocol Last Admin: 09/13/22 20:34 Dose: 10 mg Documented By: TERRY Loratadine (Loratadine 10 Mg Tablet) 10 mg PO DAILY PRN PRN Reason: allergies Last Admin: 09/14/22 07:45 Dose: 10 mg Documented By: MACRINA Lurasidone HCl (Lurasidone Hcl 20 Mg Tablet) 60 mg PO DAILY@0700 [facility] Last Admin: 09/14/22 07:43 Dose: 60 mg Documented By: MACRINA Melatonin (Melatonin 3 Mg Tablet) 6 mg PO BEDTIME PRN PRN Reason: Insomnia Last Admin: 09/09/22 20:46 Dose: 6 mg Documented By: JULIANN Montelukast Sodium (Montelukast Sodium 10 Mg Tablet) 10 mg PO BEDTIME [facility] Last Admin: 09/13/22 20:33 Dose: 10 mg Documented By: TERRY Multivitamins/Vitamin C (Multivitamin Tablet) 1 tab PO DAILY [facility] Last Admin: 09/14/22 07:43 Dose: 1 tab Documented By: MACRINA Nicotine (Nicotine 14 Mg Patch.Td24) 14 mg TRANSDERMA DAILY [facility] Last Admin: 09/14/22 07:44 Dose: 14 mg Documented By: MACRINA Nicotine Polacrilex (Nicotine Polacrilex 2 Mg Gum) 2 mg BUCCAL Q1H PRN PRN Reason: tob Last Admin: 09/14/22 07:43 Dose: 2 mg Documented By: MACRINA Nystatin (Nystatin Powder 15 Gm Bottle) 1 appl TOPICAL TID [facility]; Protocol Last Admin: 09/14/22 07:47 Dose: 1 appl Documented By: MACRINA Ondansetron HCl (Ondansetron Hcl 4 Mg/2 Ml Vial) 4 mg IVPUSH Q8H PRN PRN Reason: Nausea and Vomiting Pharmacy Consult (Consult Rx Perform Med Rec) 1 each MISCELLANE ONCE PRN PRN Reason: Consult order Pharmacy Consult (Consult Rx Perform Med Rec) 1 each MISCELLANE ONCE PRN PRN Reason: Consult order Prazosin HCl (Prazosin Hcl 1 Mg Capsule) 1 mg PO BEDTIME [facility]; Protocol Last Admin: 09/13/22 20:33 Dose: 1 mg Documented By: TERRY Quetiapine Fumarate (Quetiapine Fumarate 100 Mg Tablet) 100 mg PO DAILY PRN PRN Reason: anxiety Last Admin: 09/14/22 07:45 Dose: 100 mg Documented By: MACRINA Quetiapine Fumarate (Quetiapine Fumarate 300 Mg Tablet) 600 mg PO BEDTIME [facility] Last Admin: 09/13/22 20:34 Dose: 600 mg Documented By: TERRY Sodium Chloride (0.9 % Sodium Chloride Flush 3 Ml [facility]ringe) [facility] Last Admin: 09/14/22 07:47 Dose: 3 ml Documented By: MACRINA Sodium Chloride (0.9 % Sodium Chloride Flush 3 Ml Syringe) 3 ml IVFLUSH [facility] Last Admin: 09/14/22 07:47 Dose: 3 ml Documented By: MACRINA Sumatriptan Succinate (Sumatriptan Succinate 50 Mg Tablet) 50 mg PO DAILY MRX1 PRN PRN Reason: Headache Last Admin: 09/12/22 13:55 Dose: 50 mg Documented By: GENARO Thiamine HCl (Thiamine Hcl 100 Mg Tablet) 100 mg PO DAILY@1200 [facility] Last Admin: 09/13/22 12:02 Dose: 100 mg Documented By: GENARO Vitamin D (Cholecalciferol (Vitamin D3) 25 Mcg Tablet) 50 mcg PO DAILY [facility] Last Admin: 09/14/22 07:45 Dose: 50 mcg Documented By: KANNAN-RIVLA Labs 09/14/22 06:10 09/13/22 06:29 Labs: Laboratory Results - last 24 hr 09/13/22 09/13/22 09/13/22 11:02 16:04 19:52 MCV MCH MCHC RDW Plt Count MPV Absolute Nucleated RBC Nucleated RBC % (auto) PT INR APTT POC Glucose 339 H 269 H 243 H 09/14/22 09/14/22 09/14/22 06:10 06:10 07:03 MCV 88.9 MCH 27.6 MCHC 31.1 RDW 14.3 Plt Count 240 MPV 11.4 Absolute Nucleated RBC 0.000 Nucleated RBC % (auto) 0.0 PT 12.3 INR 1.1 APTT 27.6 POC Glucose 224 H 09/14/22 09:57 MCV MCH MCHC RDW Plt Count MPV Absolute Nucleated RBC Nucleated RBC % (auto) PT INR APTT POC Glucose 190 H Assessment and Plan (1) E coli bacteremia: Status: Acute (2) Acute hyponatremia: Status: Acute (3) T2DM (type 2 diabetes mellitus): Status: Acute Plan d#7 52yo F with COPD, restrictive lung disease and MORGAN on home NIV, HTN, HLD, DM2, schizoaffective disorder, morbid obesity, hypothyroidism, and PTSD who fell at home and was found to have hypoxia, SaO2 76% on 10L [place] (usually on 5-10L via [place]) found to have PNA + E coli bacteremia # acute/chronic hypoxic/hypercarbic resp failure due to PNA - continue O2 as per home regimen - hypercarbia is metabolically compesnated - continue biPAP at night, on NIV at home - completed 5 days of ceftriaxone + azithromycin - continue nebs # E coli bacteremia [R amp, gent, levoflox] - ?source. ceftriaxone d#7, ID consulted and recommends ruling out liver abscess # liver lesions, r/o abscesses - discussed with IR. Pt does not fit in our MRI. They are able to offer a needle biopsy of one of the lesions in the left lobe. Pt agrees to procedure, to be done today # AAA - 2019->2022 grew from 3 to 5 cm. needs Vascular Surg consult [can be outpt] # hypoNa - corrected with fluid restriction # DM2 - add back basal insulin, continue correction-dose lispro # HTN - continue atenolol, lisinopril, furosemide # schizoaffective - continue valproate, benztropine, amitriptyline, quetiapine, lurasidone, prazosin # hypothyroid - LT4 # tob abuse - NRT # VTE ppx: LMWH held for biopsy # dispo: anticipate home with VNA in next 1-2d In my clinical judgment, the patient requires continued inpatient hospitalization for the following reasons: IV ABX, r/o abscess Time Spent With Patient Time: Total time managing care of this patient today __40__ minutes. Quality Stroke Does the patient have a stroke diagnosis?: No VTE Prior VTE?: No VTE Risk Level:: Medical - moderate - high VTE Device Contraindication: Treatment Not Indicated VTE Drug Contraindication: N/A - Med Ordered
[2022-09-14] MEDS: Divalproex Sodium ER 250 MG TAB.ER.24H 750 MG PO (11:07)
[2022-09-14] MEDS: Benztropine Mesylate 1 MG TABLET PO ×2 (11:08→22:45)
[2022-09-14] MEDS: Thiamine HCL 100 MG TABLET PO (11:08)
[2022-09-14] MEDS: atenoloL 50 MG TABLET PO (11:08)
--- NOTE | 2022-09-14 12:19 | P.CONGS_ITS ---
History of Present Illness Consult details Consult date: 09/14/22 Reason for consult: other (AAA) Narrative: Morbidly obese 52-year-old female who presented to the hospital with acute on chronic respiratory failure E coli bacteremia and acute febrile illness was wo rked up. Upon workup was noted to have a 5 cm abdominal aortic aneurysm which was noted at the time of CT scan. She now presents for vascular evaluation. Review of Systems Review of Systems: Yes all other systems are reviewed and are negative Constitutional: Comments: Morbidly obese ENT: Reports Normal hearing present Cardiovascular: Cardiovascular: Denies chest pain, Denies chest pain at rest, Denies chest pain with activity and Denies pedal edema Respiratory: Respiratory: Denies cough Musculoskeletal: Musculoskeletal: Denies abnormal gait, Denies muscle cramps and Denies radiating pain into limb Integumentary/Breasts: Skin/Breast: Denies skin ulcer and Denies wounds Neurologic: Reports Normal hearing present and Denies abnormal gait Psychiatric: Psychiatric: Reports no additional psychiatric complaints [facility] Past Medical History Medical History AAA (abdominal aortic aneurysm) without rupture Acute and chronic respiratory failure with hypoxia ADHD Aortic aneurysm Arthritis Asthma Back pain Chronic respiratory failure Chronic restrictive lung disease COPD (chronic obstructive pulmonary disease) Depression Diabetes Diabetes DM2 (diabetes mellitus, type 2) Fibula fracture Gallstone GERD (gastroesophageal reflux disease) Goiter Hepatitis Hernia History of posttraumatic stress disorder (PTSD) HLD (hyperlipidemia) HLD (hyperlipidemia) HTN (hypertension) Hx of fracture of patella Hypothyroidism Hypothyroidism Migraine Morbid (severe) obesity due to excess calories Morbid obesity Multinodular thyroid Myocardial infarction Obesity due to excess calories MORGAN on CPAP Pneumonia Pneumonitis PTSD (post-traumatic stress disorder) Pulmonary nodules Schizo affective schizophrenia Sleep apnea T2DM (type 2 diabetes mellitus) Umbilical hernia Vitamin D deficiency Family History Family History Father Unknown family medical history Mother Unknown family medical history Sister Ovarian cancer Son No problems noted. Son Depression Son Asthma Bipolar 1 disorder ADHD Daughter No problems noted. Daughter Unknown family medical history Daughter Unknown family medical history Daughter No problems noted. Family history: reviewed and not pertinent Surgical History Surgical History History of incision and drainage Hx of knee surgery Hx of tubal ligation Tubal ligation status Social History Social History Household Members: None Caregiver staying overnight: No Housing: Apartment Are you a primary assurance services manager health care to a significant other at home: No Do you presently have visiting nurse or other home services: No 75 years or older and lives alone: No Unable to assess alcohol history related to: Unable to respond Alcohol intake: never Patient Tobacco Use Status: Current everyday Tobacco user Tobacco use type: Cigarette Cigarette Packs Per Day: 6 Years Smoked: 35 e-Cigarette/Vaping Use: Currently Using Substance Use Type: Marijuana Advance Directives Date on File: 09/13/21 service: No Current occupational status: unemployed Meds Allergies Allergy/AdvReac Type Severity Reaction Status Date / Time metformin Allergy Intermediate Diarrhea Verified 08/18/22 15:01 tetracycline Allergy Intermediate hives Verified 08/18/22 15:01 Latex, Natural Rubber Allergy Rash Verified 08/18/22 15:01 haloperidol [From HALDOL] AdvReac Intermediate Irritable Verified 08/18/22 15:01 duramorph/derivative or Allergy Intermediate hives Uncoded 08/18/22 15:01 morphi Active Medications: Current Medications Acetaminophen (Acetaminophen 325 Mg Tablet) 650 mg PO Q6H PRN PRN Reason: Pain, Mild (Pain Scale 1-3) Last Admin: 09/14/22 07:43 Dose: 650 mg Albuterol Sulfate (Albuterol Sulfate 90 Mcg 8 Gm Inhaler) 2 puff INHALE Q4H PRN PRN Reason: Respiratory Distress Amitriptyline HCl (Amitriptyline Hcl 10 Mg Tablet) 10 mg PO BEDTIME [facility] Last Admin: 09/13/22 20:33 Dose: 10 mg Atenolol (Atenolol 50 Mg Tablet) 50 mg PO DAILY@1200 SHARI; Protocol Last Admin: 09/14/22 11:08 Dose: 50 mg Atorvastatin Calcium (Atorvastatin Calcium 40 Mg Tablet) 40 mg PO DAILY [facility] Last Admin: 09/14/22 07:45 Dose: 40 mg Benztropine Mesylate (Benztropine Mesylate 1 Mg Tablet) 1 mg PO BID@1200,2100 SHARI Last Admin: 09/14/22 11:08 Dose: 1 mg Dextrose (Dextrose 50 % 25 Gm/50 Ml Syringe) 25 gm IVPUSH Q15M PRN; Protocol PRN Reason: per Hypoglycemia Standing Ord. Divalproex Sodium (Divalproex Sodium Er 250 Mg Tab.Er.24h) 750 mg PO DAILY@1200 SHARI Last Admin: 09/14/22 11:07 Dose: 750 mg Divalproex Sodium (Divalproex Sodium Er 500 Mg Tab.Er.24h) 1,000 mg PO BEDTIME SHARI Last Admin: 09/13/22 20:34 Dose: 1,000 mg Docusate Sodium (Docusate Sodium 100 Mg Capsule) 100 mg PO DAILY@1200 PRN PRN Reason: Constipation Last Admin: 09/10/22 12:24 Dose: 100 mg Enoxaparin Sodium (Enoxaparin Sodium 40 Mg/0.4 Ml Syringe) 40 mg SUBCUT Q12H [facility] Last Admin: 09/13/22 08:19 Dose: 40 mg Fluticasone Propionate (Fluticasone Propionate Nasal 16 Gm [place]) 1 spray NOSTRIL-B DAILY [facility] Last Admin: 09/14/22 08:02 Dose: Not Given Folic Acid (Folic Acid 1 Mg Tablet) 1 mg PO DAILY [facility] Last Admin: 09/14/22 07:45 Dose: 1 mg Furosemide (Furosemide 40 Mg Tablet) 40 mg PO DAILY [facility]; Protocol Last Admin: 09/14/22 07:44 Dose: 40 mg Glucose (Glucose Gel 15 Gm Gel..Gram.) 15 gm PO Q15M PRN; Protocol PRN Reason: per Hypoglycemia Standing Ord. Hydroxyzine HCl (Hydroxyzine Hcl 50 Mg Tablet) 50 mg PO TID PRN PRN Reason: Anxiety Last Admin: 09/14/22 07:44 Dose: 50 mg Ceftriaxone Sodium 2 gm/ (Sodium Chloride) 50 mls @ 100 mls/hr IV Q24H [facility] Last Infusion: 09/13/22 22:53 Dose: Infused Metronidazole (Flagyl) 500 mg in 100 mls @ 100 mls/hr IV Q8H [facility] Last Infusion: 09/14/22 07:59 Dose: Infused Insulin Glargine (Insulin Glargine,Hum.Rec.Anlog 100 Unit/Ml 10 Ml Vial) 50 unit SUBCUT DAILY [facility] Last Admin: 09/14/22 07:46 Dose: 50 unit Insulin Human Lispro (Insulin Lispro 100 Unit/Ml 3 Ml Vial) 0 unit SUBCUT QIDACHS [facility]; Protocol Last Admin: 09/14/22 10:16 Dose: Not Given Levothyroxine Sodium (Levothyroxine Sodium 50 Mcg Tablet) 50 mcg PO DAILY@0600 [facility] Last Admin: 09/14/22 05:47 Dose: Not Given Levothyroxine Sodium (Levothyroxine Sodium 200 Mcg Tablet) 200 mcg PO DAILY@0600 [facility] Last Admin: 09/14/22 08:01 Dose: Not Given Lisinopril (Lisinopril 10 Mg Tablet) 10 mg PO BEDTIME [facility]; Protocol Last Admin: 09/13/22 20:34 Dose: 10 mg Loratadine (Loratadine 10 Mg Tablet) 10 mg PO DAILY PRN PRN Reason: allergies Last Admin: 09/14/22 07:45 Dose: 10 mg Lurasidone HCl (Lurasidone Hcl 20 Mg Tablet) 60 mg PO DAILY@0700 [facility] Last Admin: 09/14/22 07:43 Dose: 60 mg Melatonin (Melatonin 3 Mg Tablet) 6 mg PO BEDTIME PRN PRN Reason: Insomnia Last Admin: 09/09/22 20:46 Dose: 6 mg Montelukast Sodium (Montelukast Sodium 10 Mg Tablet) 10 mg PO BEDTIME [facility] Last Admin: 09/13/22 20:33 Dose: 10 mg Multivitamins/Vitamin C (Multivitamin Tablet) 1 tab PO DAILY [facility] Last Admin: 09/14/22 07:43 Dose: 1 tab Nicotine (Nicotine 14 Mg Patch.Td24) 14 mg TRANSDERMA DAILY [facility] Last Admin: 09/14/22 07:44 Dose: 14 mg Nicotine Polacrilex (Nicotine Polacrilex 2 Mg Gum) 2 mg BUCCAL Q1H PRN PRN Reason: tob Last Admin: 09/14/22 11:11 Dose: 2 mg Nystatin (Nystatin Powder 15 Gm Bottle) 1 appl TOPICAL TID [facility]; Protocol Last Admin: 09/14/22 07:47 Dose: 1 appl Ondansetron HCl (Ondansetron Hcl 4 Mg/2 Ml Vial) 4 mg IVPUSH Q8H PRN PRN Reason: Nausea and Vomiting Pharmacy Consult (Consult Rx Perform Med Rec) 1 each MISCELLANE ONCE PRN PRN Reason: Consult order Pharmacy Consult (Consult Rx Perform Med Rec) 1 each MISCELLANE ONCE PRN PRN Reason: Consult order Prazosin HCl (Prazosin Hcl 1 Mg Capsule) 1 mg PO BEDTIME [facility]; Protocol Last Admin: 09/13/22 20:33 Dose: 1 mg Quetiapine Fumarate (Quetiapine Fumarate 100 Mg Tablet) 100 mg PO DAILY PRN PRN Reason: anxiety Last Admin: 09/14/22 07:45 Dose: 100 mg Quetiapine Fumarate (Quetiapine Fumarate 300 Mg Tablet) 600 mg PO BEDTIME [facility] Last Admin: 09/13/22 20:34 Dose: 600 mg Sodium Chloride (0.9 % Sodium Chloride Flush 3 Ml Syringe) 3 ml IVFLUSH [facility] Last Admin: 09/14/22 07:47 Dose: 3 ml Sodium Chloride (0.9 % Sodium Chloride Flush 3 Ml Syringe) 3 ml IVFLUSH [facility] Last Admin: 09/14/22 07:47 Dose: 3 ml Sumatriptan Succinate (Sumatriptan Succinate 50 Mg Tablet) 50 mg PO DAILY MRX1 PRN PRN Reason: Headache Last Admin: 09/12/22 13:55 Dose: 50 mg Thiamine HCl (Thiamine Hcl 100 Mg Tablet) 100 mg PO DAILY@1200 [facility] Last Admin: 09/14/22 11:08 Dose: 100 mg Vitamin D (Cholecalciferol (Vitamin D3) 25 Mcg Tablet) 50 mcg PO DAILY [facility] Last Admin: 09/14/22 07:45 Dose: 50 mcg Home Medications Medication Instructions Recorded Confirmed Last Taken Type amitriptyline 10 mg tablet 10 mg PO BEDTIME 01/10/20 09/09/22 09/07/21 History benztropine 1 mg tablet 1 mg PO BID@1200,2100 01/10/20 09/09/22 09/08/21 History lisinopril 10 mg tablet 10 mg PO BEDTIME 01/10/20 09/09/22 09/07/21 History montelukast 10 mg tablet 10 mg PO BEDTIME 01/10/20 09/09/22 09/07/21 History multivitamin 1 tab PO DAILY 01/10/20 09/09/22 09/08/21 History thiamine HCl (vitamin B1) 100 mg 100 mg PO DAILY@1200 01/10/20 09/09/22 09/08/21 History tablet atenolol 50 mg tablet 50 mg PO DAILY@1200 04/20/21 09/09/22 09/08/21 History docusate sodium 100 mg capsule 100 mg PO DAILY@1200 PRN 04/20/21 09/09/22 Unknown History Constipation folic acid 1 mg tablet 1 tab PO QAM 04/20/21 09/09/22 09/08/21 History furosemide 40 mg tablet 1 tab PO DAILY 04/20/21 09/09/22 09/08/21 History lurasidone 60 mg tablet (Latuda) 60 mg PO DAILY@0700 04/20/21 09/09/22 09/08/21 History melatonin 5 mg tablet 10 mg PO BEDTIME PRN insomnia 04/20/21 09/09/22 Unknown History prazosin 5 mg capsule 1 cap PO BEDTIME 04/20/21 09/09/22 09/07/21 History alendronate 70 mg tablet 1 tab PO MO@0600 04/22/21 09/09/22 Unknown History diclofenac sodium 1 % topical gel 2 g topical QID PRN Pain 04/22/21 09/09/22 Unknown History fluticasone propionate 50 1 spray intranasal DAILY 04/22/21 09/09/22 09/08/21 History mcg/actuation nasal spray,suspension hydroxyzine HCl 50 mg tablet 1 tab PO TID PRN Anxiety 04/22/21 09/09/22 Unknown History cholecalciferol (vitamin D3) 50 50 mcg PO DAILY 07/20/21 09/09/22 09/08/21 History mcg (2,000 unit) tablet acetaminophen 500 mg tablet 1,000 mg PO Q6H PRN Pain 09/08/21 09/09/22 Unknown History albuterol sulfate 90 mcg/actuation 2 puff inhalation Q4H PRN 09/08/21 09/09/22 Unknown History aerosol inhaler (ProAir HFA) Respiratory Distress lidocaine 5 % topical patch 1 patch topical DAILY 09/08/21 09/09/22 Unknown History white petrolatum 1 appl topical BID PRN Dry Skin 09/08/21 09/09/22 Unknown History Oxygen Home Use 03/25/22 09/09/22 Unknown History nebulizers 03/25/22 09/09/22 Unknown History quetiapine 25 mg tablet 100 mg PO DAILY PRN anxiety 08/18/22 09/09/22 Unknown History quetiapine 400 mg tablet 600 mg PO BEDTIME 08/18/22 09/09/22 Unknown History cetirizine 10 mg tablet 10 mg PO DAILY PRN allergies 09/08/22 09/09/22 Unknown H istory divalproex 250 mg tablet,extended 750 mg PO DAILY@1200 09/08/22 09/09/22 Unknown History release 24 hr divalproex 500 mg tablet,extended 1,000 mg PO BEDTIME 09/08/22 09/09/22 Unknown History release 24 hr nicotine (polacrilex) 4 mg gum 4 mg PO Q2H PRN Nicotine Cravings 09/08/22 09/09/22 Unknown History prazosin 1 mg capsule 1 mg PO BEDTIME 09/08/22 09/09/22 Unknown History Physical Exam Vital Signs: Vital Signs: Last Vital Signs Temp 97.0 F 09/14/22 11:00 Pulse 77 09/14/22 11:00 Resp 20 09/14/22 11:00 BP 115/60 09/14/22 11:00 Pulse Ox 93 09/14/22 11:00 O2 Del Method Nasal Cannula 09/14/22 11:00 O2 Flow Rate 6 09/14/22 11:00 Oxygen Flow Rate 8 09/08/22 18:38 BMI result Body Mass Index 72.6 Const: General: cooperative, healthy appearing and comfortable Orientation/consciousness: oriented to person, oriented to place and oriented to time HEENT: Head: Yes normal to inspection Neck: Neck: Yes normal visual inspection Carotids: no bruits Chest: Chest palpation & inspection: normal inspection of the chest Resp: Effort & Inspection: normal respiratory effort and able to speak in complete sentences Auscultation: clear to auscultation bilaterally, no crackles, no rales, no rhonchi and no wheezes Cardio: Other: No obvious pulsatile masses Rate: regular rate Rhythm: regular rhythm Heart sounds: S1 normal heart sound present and S2 normal heart sound present Bruits: no carotid bruits Peripheral pulses: Peripheral pulses 2+ throughout GI: Inspection: Yes normal to inspection Skin: Wounds: no wounds Hair: normal Neuro: General: oriented to person, oriented to place and oriented to time Cranial nerves: Yes CN's II-XII intact bilaterally and Yes Normal hearing present Cognition (Neuro): normal cognition Motor exam (neuro): 5/5 motor strength present throughout Extrem: Other: venous exam: No significant superficial varicosities or spider telangiectasias, minimal edema General: No clubbing, No cyanosis and No edema Psych: Appearance: grossly normal Mental Status: mental status grossly normal Speech and movement: Normal speech and movement present Results Labs 09/14/22 06:10 09/13/22 06:29 Labs: Abnormal lab results 09/13/22 09/13/22 09/14/22 Range/Units 16:04 19:52 06:10 RBC 3.69 L (4.20-5.50) X10*6/uL Hgb 10.2 L (12.0-16.0) g/dl Hct 32.8 L (37.0-47.0) % POC Glucose 269 H 243 H (60-115) mg/dL 09/14/22 09/14/22 Range/Units 07:03 09:57 RBC (4.20-5.50) X10*6/uL Hgb (12.0-16.0) g/dl Hct (37.0-47.0) % POC Glucose 224 H 190 H (60-115) mg/dL Short CBC 09/14/22 Range/Units 06:10 WBC 6.3 (4.8-10.8) X10*3/uL Hgb 10.2 L (12.0-16.0) g/dl Hct 32.8 L (37.0-47.0) % Plt Count 240 (160-400) X10*3/uL Urine 09/09/22 Range/Units 15:41 Urine Color Yellow Urine Appearance Clear Urine pH 6.0 (5.0-9.0) Ur Specific [place] 1.020 (1.005-1.025) Urine Protein Negative (Neg-Trace) mg/dL Urine Glucose (UA) >=1000 H (Negative) mg/dL All other labs normal. Assessment and Plan (1) Aortic aneurysm: Status: Acute Plan At the current time her issues are not related to her aortic aneurysm. Would like bacteremia and sepsis to resolve. If aneurysm repair is required would have to be planned at a tertiary care institution as I do not believe are equipment can handle the BMI of roughly 73. Once again stable from a vascular perspective and should aneurysm repair be required will be able to assist in coordinating transfer of care to a tertiary care institution as an outpatient Time Spent With Patient Time: Total time managing care of this patient today ____ minutes. Procedures Date of Service Date of Service: 09/14/22
--- NOTE | 2022-09-14 12:54 | PC.NURSE ---
Patient off of floor at this time via stretcher and IR transport aid.
[2022-09-14 13:33] LABS: Glucose, Whole Blood 193 mg/dL (60-115)
[2022-09-14] MEDS: Lidocaine HCl 1 % MPF 5 ML VIAL SUBCUT (15:12)
[2022-09-14 15:48] LABS: Creatinine Clr Calc Pharmacy 174.3; Estimated Glomerular Filt Rate > 60
[2022-09-14] MEDS: SUMAtriptan succinate 50 MG TABLET PO (15:49)
[2022-09-14 15:50] LABS: Glucose, Whole Blood 218 mg/dL (60-115)
[2022-09-14] MEDS: vancomycin/NS 2,000 MG/500 ML PLAST..BAG 250 MG IV (16:58)
--- NOTE | 2022-09-14 17:07 | PHA.PROG ---
Admission Date/Time: September 08, 2022 21:47 Indication: BACTEREMIA Weight in k.4 kg Adjusted body weight in Kg: [place] body weight in Kg: Obesity Dosing Indication % IBW: Serum Creatinine - Last 168 Hours 09/08/22 09/09/22 09/10/22 18:24 05:34 06:05 Creatinine 0.87 0.80 1.10 09/12/22 09/13/22 09/14/22 06:08 06:29 15:18 Creatinine 0.84 0.68 0.73 Estimated CrCl and GFR - Last 168 Hours 09/08/22 09/09/22 09/10/22 18:24 05:34 06:05 Estim Creat Clear Calc 146.4 159.0 115.7 Estimated GFR > 60 > 60 52 09/12/22 09/13/22 09/14/22 06:08 06:29 15:18 Estim Creat Clear Calc 151.5 187.1 174.3 Estimated GFR > 60 > 60 > 60 Vancomycin Loading Dose: 2000 MG Current Vancomycin Dosing Regimen: 1250MG Q12H Vancomycin Monitoring using AUC goal of 400 - 600 range with trough as surrogate marker: AUC 555, TROUGH 15.5 Date and Time for next Vancomycin Level to be drawn: 09/16 @0500 Pharmacist Comments on Vancomycin Plan: Vancomycin dosing will take advantage of [employer] as a clinical decision support tool that uses Bayesian modeling to calculate individual patient's pharmacokinetic parameters and forecast the patient's drug concentration time course with the target goal AUC 24 range of 400 - 600 mg/L/hr.
[2022-09-14 17:44] LABS: Strep Pneumo Ag urine Not Detected (Not Detected)
[2022-09-14 19:06] LABS: Glucose, Whole Blood 267 mg/dL (60-115)
[2022-09-14 22:17] LABS: Glucose, Whole Blood 257 mg/dL (60-115)
[2022-09-14] MEDS: Divalproex Sodium ER 500 MG TAB.ER.24H 1000 MG PO (22:42)
[2022-09-14] MEDS: Montelukast Sodium 10 MG TABLET PO (22:42)
[2022-09-14] MEDS: lisinopriL 10 MG TABLET PO (22:43)
[2022-09-14] MEDS: QUEtiapine Fumarate 300 MG TABLET 600 MG PO (22:43)
[2022-09-14] MEDS: Amitriptyline HCl 10 MG TABLET PO (22:45)
[2022-09-14] MEDS: Prazosin HCL 1 MG CAPSULE PO (22:46)
[2022-09-14] MEDS: cefTRIAXone sodium 2 GM in 0.9 % Sodium Chloride 50 ML IV (22:47)
[2022-09-15] VITALS (8 sets, daily range): BP systolic 97–136; BP diastolic 53–87; PULSE 77–88; RESP 16–20; TEMP 36.2–36.7; O2SAT 94–98
[2022-09-15 06:46] LABS: Hemoglobin 10.3 g/dl (12.0-16.0); Mean Corpuscular HGB Conc 31.2 g/dl (31.0-35.0); Mean Corpuscular Hemoglobin 28.1 pg (27.0-33.0); Mean Corpuscular Volume 89.9 fL (80.0-98.0); Mean Platelet Volume 10.8 fL (9.4-12.3); Platelet Count 261 X10*3/uL (160-400); Red Blood Count 3.67 X10*6/uL (4.20-5.50); Red Cell Distribution Width 14.5 % (11.0-16.0); White Blood Count 6.2 X10*3/uL (4.8-10.8)
[2022-09-15 06:47] LABS: Venous Blood Gas Refer to POC result
[2022-09-15 06:48] LABS: VBG Base Excess 30.4 mmol/L; VBG HCO3 58 mmol/L (22-26); VBG pCO2 69 mmHg; VBG pH 7.53 (7.32-7.43); VBG pO2 80 mmHg
[2022-09-15 07:14] LABS: Glucose, Whole Blood 195 mg/dL (60-115)
[2022-09-15 07:26] LABS: Anion Gap 14 (12-20); Blood Urea Nitrogen 13 mg/dL (9-16); Calcium 10.2 mg/dL (8.4-10.2); Carbon Dioxide 47 mmol/L (22-29); Chloride 83 mmol/L (96-108); Creatinine Clr Calc Pharmacy 174.3; Estimated Glomerular Filt Rate > 60; Glucose Random 195 mg/dL (60-115); Potassium 3.8 mmol/L (3.3-5.1); Sodium 140 mmol/L (135-145)
[2022-09-15] MEDS: Lurasidone HCl 20 MG TABLET 60 MG PO (07:51)
[2022-09-15] MEDS: metroNIDAZOLE/NS 500 MG/100 ML PIGGYBACK 100 MG IV (07:51)
[2022-09-15] MEDS: Levothyroxine Sodium 200 MCG TABLET PO (07:51)
[2022-09-15] MEDS: Levothyroxine Sodium 50 MCG TABLET PO (07:51)
--- NOTE | 2022-09-15 07:51 | HE.PHANOTE ---
Vancomycin Dosing Renal function stable. Continue current regimen vancomycin 1250 mg Q24H. Level schedule for 09/16 @ 0500. Fabio ArredondoD
[2022-09-15] MEDS: Folic Acid 1 MG TABLET PO (08:29)
[2022-09-15] MEDS: Cholecalciferol (Vitamin D3) 25 MCG TABLET 50 MCG PO (08:29)
[2022-09-15] MEDS: Furosemide 40 MG TABLET PO (08:29)
[2022-09-15] MEDS: Atorvastatin Calcium 40 MG TABLET PO (08:29)
[2022-09-15] MEDS: Multivitamin TABLET 1 TAB PO (08:29)
[2022-09-15] MEDS: Nicotine 14 MG PATCH.TD24 TRANSDERMA (08:30)
[2022-09-15] MEDS: Nicotine Polacrilex 2 MG GUM BUCCAL ×6 (08:30→21:28)
[2022-09-15] MEDS: Insulin Glargine,Hum.rec.anlog 100 UNIT/ML 10 ML VIAL 50 UNIT SUBCUT (08:31)
[2022-09-15] MEDS: Docusate Sodium 100 MG CAPSULE PO (08:31)
[2022-09-15] MEDS: Insulin Lispro 100 UNIT/ML 3 ML VIAL SUBCUT ×4 (08:32→21:19)
[2022-09-15] MEDS: acetaZOLAMIDE 250 MG TABLET PO ×3 (09:06→21:20)
[2022-09-15] MEDS: Nystatin Powder 15 GM BOTTLE 1 APPL TOPICAL ×2 (09:07→21:25)
[2022-09-15] MEDS: Acetaminophen 325 MG TABLET 650 MG PO ×3 (09:09→21:23)
--- NOTE | 2022-09-15 10:45 | P.PNIM_ITS ---
Subjective Subjective Date of Service: 09/15/22 Interval History: liver biopsy done yesterday. minimal pain no fever was off BiPAP a few times last night Review of Systems Review of Systems: Yes all other systems are reviewed and are negative Physical Exam Vital Signs: Vital Signs: Last Vital Signs Temp 97.5 F 09/15/22 08:00 Pulse 84 09/15/22 08:00 Resp 20 09/15/22 08:00 BP 120/66 09/15/22 08:00 Pulse Ox 94 09/15/22 08:00 O2 Del Method Nasal Cannula 09/15/22 08:00 O2 Flow Rate 6 09/15/22 08:00 Oxygen Flow Rate 8 09/08/22 18:38 BMI result Body Mass Index 72.6 Gen: in no acute distress HEENT: sclera anicteric, moist mucus membranes Neck: supple Lungs: diminished Heart: regular rate and rhythm, no murmurs Abd: soft, non-tender, non-distended, morbid obesity Ext: no edema Skin: warm/well-perfused Neuro: alert and oriented x3, no focal findings Psych: appropriate affect Objective Data Active Medications Acetaminophen (Acetaminophen 325 Mg Tablet) 650 mg PO Q6H PRN PRN Reason: Pain, Mild (Pain Scale 1-3) Last Admin: 09/15/22 09:09 Dose: 650 mg Documented By: EDDIE Acetazolamide (Acetazolamide 250 Mg Tablet) 250 mg PO TID [facility] Last Admin: 09/15/22 09:06 Dose: 250 mg Documented By: EDDIE Albuterol Sulfate (Albuterol Sulfate 90 Mcg 8 Gm Inhaler) 2 puff INHALE Q4H PRN PRN Reason: Respiratory Distress Amitriptyline HCl (Amitriptyline Hcl 10 Mg Tablet) 10 mg PO BEDTIME [facility] Last Admin: 09/14/22 22:45 Dose: 10 mg Documented By: JULIANN Atenolol (Atenolol 50 Mg Tablet) 50 mg PO DAILY@1200 SHARI; Protocol Last Admin: 09/14/22 11:08 Dose: 50 mg Documented By: MACRINA Atorvastatin Calcium (Atorvastatin Calcium 40 Mg Tablet) 40 mg PO DAILY [facility] Last Admin: 09/15/22 08:29 Dose: 40 mg Documented By: EDDIE Benztropine Mesylate (Benztropine Mesylate 1 Mg Tablet) 1 mg PO BID@1200,2100 [facility] Last Admin: 09/14/22 22:45 Dose: 1 mg Documented By: JULIANN Cefuroxime Axetil (Cefuroxime Axetil 500 Mg Tablet) 500 mg PO Q12H [facility] Last Admin: 09/15/22 09:06 Dose: 500 mg Documented By: EDDIE Dextrose (Dextrose 50 % 25 Gm/50 Ml Syringe) 25 gm IVPUSH Q15M PRN; Protocol PRN Reason: per Hypoglycemia Standing Ord. Divalproex Sodium (Divalproex Sodium Er 250 Mg Tab.Er.24h) 750 mg PO DAILY@1200 [facility] Last Admin: 09/14/22 11:07 Dose: 750 mg Documented By: MACRINA Divalproex Sodium (Divalproex Sodium Er 500 Mg Tab.Er.24h) 1,000 mg PO BEDTIME [facility] Last Admin: 09/14/22 22:42 Dose: 1,000 mg Documented By: JULIANN Docusate Sodium (Docusate Sodium 100 Mg Capsule) 100 mg PO DAILY@1200 PRN PRN Reason: Constipation Last Admin: 09/15/22 08:31 Dose: 100 mg Documented By: EDDIE Enoxaparin Sodium (Enoxaparin Sodium 40 Mg/0.4 Ml Syringe) 40 mg SUBCUT Q12H [facility] Last Admin: 09/13/22 08:19 Dose: 40 mg Documented By: GENARO Fluticasone Propionate (Fluticasone Propionate Nasal 16 Gm [place]) 1 spray NOSTRIL-B DAILY [facility] Last Admin: 09/15/22 09:07 Dose: Not Given Documented By: EDDIE Non-Admin Reason: Patient Refused Folic Acid (Folic Acid 1 Mg Tablet) 1 mg PO DAILY [facility] Last Admin: 09/15/22 08:29 Dose: 1 mg Documented By: EDDIE Furosemide (Furosemide 40 Mg Tablet) 40 mg PO DAILY [facility]; Protocol Last Admin: 09/15/22 08:29 Dose: 40 mg Documented By: EDDIE Glucose (Glucose Gel 15 Gm Gel..Gram.) 15 gm PO Q15M PRN; Protocol PRN Reason: per Hypoglycemia Standing Ord. Hydroxyzine HCl (Hydroxyzine Hcl 50 Mg Tablet) 50 mg PO TID PRN PRN Reason: Anxiety Last Admin: 09/14/22 07:44 Dose: 50 mg Documented By: MACRINA Insulin Glargine (Insulin Glargine,Hum.Rec.Anlog 100 Unit/Ml 10 Ml Vial) 50 unit SUBCUT DAILY [facility] Last Admin: 09/15/22 08:31 Dose: 50 unit Documented By: EDDIE Insulin Human Lispro (Insulin Lispro 100 Unit/Ml 3 Ml Vial) 0 unit SUBCUT QIDACHS [facility]; Protocol Last Admin: 09/15/22 08:32 Dose: 2 unit Documented By: EDDIE Levothyroxine Sodium (Levothyroxine Sodium 50 Mcg Tablet) 50 mcg PO DAILY@0600 [facility] Last Admin: 09/15/22 07:51 Dose: 50 mcg Documented By: JULIANN Levothyroxine Sodium (Levothyroxine Sodium 200 Mcg Tablet) 200 mcg PO DAILY@0600 [facility] Last Admin: 09/15/22 07:51 Dose: 200 mcg Documented By: JULIANN Lisinopril (Lisinopril 10 Mg Tablet) 10 mg PO BEDTIME [facility]; Protocol Last Admin: 09/14/22 22:43 Dose: 10 mg Documented By: JULIANN Loratadine (Loratadine 10 Mg Tablet) 10 mg PO DAILY PRN PRN Reason: allergies Last Admin: 09/14/22 07:45 Dose: 10 mg Documented By: MACRINA Lurasidone HCl (Lurasidone Hcl 20 Mg Tablet) 60 mg PO DAILY@0700 [facility] Last Admin: 09/15/22 07:51 Dose: 60 mg Documented By: JULIANN Melatonin (Melatonin 3 Mg Tablet) 6 mg PO BEDTIME PRN PRN Reason: Insomnia Last Admin: 09/09/22 20:46 Dose: 6 mg Documented By: JULIANN Metronidazole (Metronidazole 500 Mg Tablet) 500 mg PO Q8H [facility] Montelukast Sodium (Montelukast Sodium 10 Mg Tablet) 10 mg PO BEDTIME [facility] Last Admin: 09/14/22 22:42 Dose: 10 mg Documented By: JULIANN Multivitamins/Vitamin C (Multivitamin Tablet) 1 tab PO DAILY [facility] Last Admin: 09/15/22 08:29 Dose: 1 tab Documented By: EDDIE Nicotine (Nicotine 14 Mg Patch.Td24) 14 mg TRANSDERMA DAILY [facility] Last Admin: 09/15/22 08:30 Dose: 14 mg Documented By: EDDIE Nicotine Polacrilex (Nicotine Polacrilex 2 Mg Gum) 2 mg BUCCAL Q1H PRN PRN Reason: tob Last Admin: 09/15/22 08:30 Dose: 2 mg Documented By: EDDIE Nystatin (Nystatin Powder 15 Gm Bottle) 1 appl TOPICAL TID [facility]; Protocol Last Admin: 09/15/22 09:07 Dose: 1 appl Documented By: EDDIE Ondansetron HCl (Ondansetron Hcl 4 Mg/2 Ml Vial) 4 mg IVPUSH Q8H PRN PRN Reason: Nausea and Vomiting Pharmacy Consult (Consult Rx Perform Med Rec) 1 each MISCELLANE ONCE PRN PRN Reason: Consult order Pharmacy Consult (Consult Rx Perform Med Rec) 1 each MISCELLANE ONCE PRN PRN Reason: Consult order Prazosin HCl (Prazosin Hcl 1 Mg Capsule) 1 mg PO BEDTIME [facility]; Protocol Last Admin: 09/14/22 22:46 Dose: 1 mg Documented By: JULIANN Quetiapine Fumarate (Quetiapine Fumarate 100 Mg Tablet) 100 mg PO DAILY PRN PRN Reason: anxiety Last Admin: 09/14/22 07:45 Dose: 100 mg Documented By: MACRINA Quetiapine Fumarate (Quetiapine Fumarate 300 Mg Tablet) 600 mg PO BEDTIME [facility] Last Admin: 09/14/22 22:43 Dose: 600 mg Documented By: JULIANN Sodium Chloride (0.9 % Sodium Chloride Flush 3 Ml Syringe) 3 ml IVFLUSH [facility] Last Admin: 09/15/22 08:22 Dose: Not Given Documented By: EDDIE Non-Admin Reason: IV Running Sodium Chloride (0.9 % Sodium Chloride Flush 3 Ml Syringe) 3 ml IVFLUSH [facility] Last Admin: 09/15/22 08:22 Dose: Not Given Documented By: EDDIE Non-Admin Reason: IV Running Sumatriptan Succinate (Sumatriptan Succinate 50 Mg Tablet) 50 mg PO DAILY MRX1 PRN PRN Reason: Headache Last Admin: 09/14/22 15:49 Dose: 50 mg Documented By: FILIPE Thiamine HCl (Thiamine Hcl 100 Mg Tablet) 100 mg PO DAILY@1200 [facility] Last Admin: 09/14/22 11:08 Dose: 100 mg Documented By: KANNAN-ERENDIRA Vitamin D (Cholecalciferol (Vitamin D3) 25 Mcg Tablet) 50 mcg PO DAILY [facility] Last Admin: 09/15/22 08:29 Dose: 50 mcg Documented By: NOLAPE Labs 09/15/22 06:38 09/15/22 06:38 Labs: Laboratory Results - last 24 hr 09/09/22 09/14/22 09/14/22 15:41 13:30 15:18 MCV MCH MCHC RDW Plt Count MPV Absolute Nucleated RBC Nucleated RBC % (auto) VBG pH VBG pCO2 VBG pO2 VBG HCO3 VBG O2 Saturation VBG Base Excess Anion Gap Estim Creat Clear Calc 174.3 Estimated GFR > 60 POC Glucose 193 H Random Glucose Calcium Ur Strep pneumoniae Ag Not Detected 09/14/22 09/14/22 09/14/22 15:26 18:36 22:14 MCV MCH MCHC RDW Plt Count MPV Absolute Nucleated RBC Nucleated RBC % (auto) VBG pH VBG pCO2 VBG pO2 VBG HCO3 VBG O2 Saturation VBG Base Excess Anion Gap Estim Creat Clear Calc Estimated GFR POC Glucose 218 H 267 H 257 H Random Glucose Calcium Ur Strep pneumoniae Ag 09/15/22 09/15/22 09/15/22 06:38 06:38 06:41 MCV 89.9 MCH 28.1 MCHC 31.2 RDW 14.5 Plt Count 261 MPV 10.8 Absolute Nucleated RBC 0.000 Nucleated RBC % (auto) 0.0 VBG pH 7.53 H VBG pCO2 69 VBG pO2 80 VBG HCO3 58 H VBG O2 Saturation 96.0 VBG Base Excess 30.4 Anion Gap 14 Estim Creat Clear Calc 174.3 Estimated GFR > 60 POC Glucose Random Glucose 195 H Calcium 10.2 D Ur Strep pneumoniae Ag 09/15/22 07:06 MCV MCH MCHC RDW Plt Count MPV Absolute Nucleated RBC Nucleated RBC % (auto) VBG pH VBG pCO2 VBG pO2 VBG HCO3 VBG O2 Saturation VBG Base Excess Anion Gap Estim Creat Clear Calc Estimated GFR POC Glucose 195 H Random Glucose Calcium Ur Strep pneumoniae Ag Microbiology Microbiology Results: Microbiology 09/13/22 08:15 Blood Culture - Final Blood - Venous Coag negative Staphylococcus 09/14/22 14:37 Gram Stain - Final Liver 09/13/22 08:15 Blood Culture - Preliminary Blood - Venous No growth after 24 hours. Assessment and Plan (1) E coli bacteremia: Status: Acute (2) Acute hyponatremia: Status: Acute (3) T2DM (type 2 diabetes mellitus): Status: Acute Plan d#8 52yo F with COPD, restrictive lung disease and MORGAN on home NIV, HTN, HLD, DM2, schizoaffective disorder, morbid obesity, hypothyroidism, and PTSD who fell at home and was found to have hypoxia, SaO2 76% on 10L NC (usually on 5-10L via NC) found to have PNA + E coli bacteremia # acute/chronic hypoxic/hypercarbic resp failure due to PNA - continue O2 as per home regimen - has profound metabolic alkalosis, probably post-hypercapneic. will give acetazolamide and recheck BMP + VBG in AM - continue biPAP at night; on NIV at home - completed 5 days of ceftriaxone + azithromycin - continue nebs # E coli bacteremia [R amp, gent, levoflox] - unknown source. got 7 days of IV ceftriaxone and just lost IV access; will change to cefuroxime PO to give 7 more days - ID consulted and recommends ruling out liver abscess; biopsy done 09/14; also added metronidazole 09/12- # liver lesions, r/o abscesses but could just be focal fatty sparing - discussed with IR. pt does not fit in our MRI. biopsy of one of the lesions in the left lobe done 09/14/22. follow culture and discuss with IR tomorrow procedural findings # AAA - 2019->2022 grew from 3 to 5 cm. outpt [facility] at [facility] due to her BMI # hypoNa - corrected with fluid restriction # DM2 - basal insulin, correction-dose lispro # HTN - continue atenolol, lisinopril, furosemide # schizoaffective - continue valproate, benztropine, amitriptyline, quetiapine, lurasidone, prazosin # hypothyroid - LT4 # tob abuse - NRT # VTE ppx: LMWH held for biopsy # dispo: anticipate home with VNA likely tomorrow if no evidence of liver abscess In my clinical judgment, the patient requires continued inpatient hospitalization for the following reasons: bacteremia, r/o liver abscess Time Spent With Patient Time: Total time managing care of this patient today ___45_ minutes. Quality Stroke Does the patient have a stroke diagnosis?: No VTE Prior VTE?: No VTE Risk Level:: Medical - moderate - high VTE Device Contraindication: Treatment Not Indicated VTE Drug Contraindication: N/A - Med Ordered
[2022-09-15 11:01] LABS: Glucose, Whole Blood 330 mg/dL (60-115)
[2022-09-15] MEDS: Benztropine Mesylate 1 MG TABLET PO ×2 (11:46→21:21)
[2022-09-15] MEDS: Divalproex Sodium ER 250 MG TAB.ER.24H 750 MG PO (11:46)
[2022-09-15] MEDS: Thiamine HCL 100 MG TABLET PO (11:46)
[2022-09-15] MEDS: atenoloL 50 MG TABLET PO (11:46)
[2022-09-15] MEDS: Albuterol Sulfate 90 MCG 8 GM INHALER 2 PUFF INHALE (12:17)
[2022-09-15] MEDS: Lidocaine 4 % Patch ADH..PATCH 1 PATCH TRANSDERMA (12:54)
[2022-09-15 15:31] LABS: Glucose, Whole Blood 299 mg/dL (60-115)
[2022-09-15] MEDS: metroNIDAZOLE 500 MG TABLET PO (17:04)
[2022-09-15 20:54] LABS: Glucose, Whole Blood 357 mg/dL (60-115)
[2022-09-15] MEDS: Amitriptyline HCl 10 MG TABLET PO (21:20)
[2022-09-15] MEDS: Montelukast Sodium 10 MG TABLET PO (21:22)
[2022-09-15] MEDS: Divalproex Sodium ER 500 MG TAB.ER.24H 1000 MG PO (21:22)
[2022-09-15] MEDS: lisinopriL 10 MG TABLET PO (21:22)
[2022-09-15] MEDS: Prazosin HCL 1 MG CAPSULE PO (21:23)
[2022-09-15] MEDS: QUEtiapine Fumarate 300 MG TABLET 600 MG PO (21:23)
[2022-09-15] MEDS: Melatonin 3 MG TABLET 6 MG PO (21:24)
[2022-09-16] VITALS: BP 107/55; PULSE 92; RESP 20; TEMP 36.2
[2022-09-16] MEDS: metroNIDAZOLE 500 MG TABLET PO ×2 (00:34→07:59)
[2022-09-16 04:00] VITALS: BP 110/57; PULSE 82; RESP 20; TEMP 36.4; O2SAT 99
[2022-09-16 06:03] LABS: Legionella Ag Urine Not Detected (Not Detected)
[2022-09-16 06:44] LABS: Venous Blood Gas Refer to POC result
[2022-09-16 06:44] LABS: VBG Base Excess 17.5 mmol/L; VBG HCO3 45 mmol/L (22-26); VBG pCO2 67 mmHg; VBG pH 7.43 (7.32-7.43); VBG pO2 210 mmHg
[2022-09-16] MEDS: Levothyroxine Sodium 50 MCG TABLET PO (06:48)
[2022-09-16] MEDS: Lurasidone HCl 20 MG TABLET 60 MG PO (06:48)
[2022-09-16] MEDS: Levothyroxine Sodium 200 MCG TABLET PO (06:48)
[2022-09-16 07:15] LABS: Anion Gap 15 (12-20); Blood Urea Nitrogen 16 mg/dL (9-16); Calcium 10.6 mg/dL (8.4-10.2); Carbon Dioxide 36 mmol/L (22-29); Chloride 89 mmol/L (96-108); Creatinine Clr Calc Pharmacy 176.7; Estimated Glomerular Filt Rate > 60; Glucose Random 236 mg/dL (60-115); Potassium 3.7 mmol/L (3.3-5.1); Sodium 136 mmol/L (135-145)
[2022-09-16 07:23] LABS: Glucose, Whole Blood 244 mg/dL (60-115)
[2022-09-16] MEDS: SUMAtriptan succinate 50 MG TABLET PO (07:58)
[2022-09-16] MEDS: Lidocaine 4 % Patch ADH..PATCH 1 PATCH TRANSDERMA (07:59)
[2022-09-16] MEDS: Multivitamin TABLET 1 TAB PO (07:59)
[2022-09-16] MEDS: Folic Acid 1 MG TABLET PO (07:59)
[2022-09-16] MEDS: acetaZOLAMIDE 250 MG TABLET PO (07:59)
[2022-09-16] MEDS: Nicotine 14 MG PATCH.TD24 TRANSDERMA (07:59)
[2022-09-16] MEDS: Atorvastatin Calcium 40 MG TABLET PO (07:59)
[2022-09-16] MEDS: Furosemide 40 MG TABLET PO (07:59)
[2022-09-16] MEDS: Cholecalciferol (Vitamin D3) 25 MCG TABLET 50 MCG PO (07:59)
[2022-09-16 08:00] VITALS: BP 116/65; PULSE 96; RESP 19; TEMP 36.3; O2SAT 93
[2022-09-16] MEDS: Insulin Lispro 100 UNIT/ML 3 ML VIAL SUBCUT ×3 (08:00→11:42)
[2022-09-16] MEDS: Insulin Glargine,Hum.rec.anlog 100 UNIT/ML 10 ML VIAL 50 UNIT SUBCUT (08:00)
[2022-09-16] MEDS: Nystatin Powder 15 GM BOTTLE 1 APPL TOPICAL (08:01)
[2022-09-16] MEDS: Nicotine Polacrilex 2 MG GUM BUCCAL ×3 (08:23→11:36)
--- NOTE | 2022-09-16 10:32 | MHC.CM.PN ---
Per ROUNDS discussion, Cultures are pending and Patient may benefit from a PT eval to assist with disposition. CM will follow.
[2022-09-16 11:15] LABS: Glucose, Whole Blood 377 mg/dL (60-115)
--- NOTE | 2022-09-16 11:22 | P.DS_ITS ---
DS: Providers Provider Date of Service: 09/16/22 Date of admission: 09/08/22 21:47 Primary care physician: LOUIE Finley Consults: 09/08/22 22:25 Consult to Pulmonology Routine Consulting Provider: [facility] [place] [facility] Reason for consultation: Acute on chronic hypoxic resp failure, pt on BiPAP, 10L home O2 09/09/22 07:14 Consult to Nephrology Routine Consulting Provider: Migel Woodward Reason for consultation: Hyponatremia Has provider been notified: No 09/12/22 10:37 Consult to Infectious Diseases Routine Consulting Provider: [facility] [place] Reason for consultation: E coli bacteremia ?source 09/12/22 14:48 Consult to Vascular Surgery Routine Consulting Provider: [facility] [place] [facility] Reason for consultation: 5 cm AAA DS: Diagnosis Discharge Diagnosis (1) E coli bacteremia: Status: Acute (2) Acute hyponatremia: Status: Acute (3) T2DM (type 2 diabetes mellitus): Status: Acute (4) Acute and chronic respiratory failure: Status: Acute (5) Acute febrile illness: Status: Acute (6) Hypoxia: Status: Acute (7) Pneumonia: Status: Acute (8) Morbid (severe) obesity due to excess calories: Status: Acute DS: Summary Hospital Course Hospital Course: Admission note HPI Pt is a 52-year-old female with a PMH significant for?COPD/restrictive lung disease on CPAP, HTN, HLD, insulin-dependent diabetes type 2, morbid obesity, MORGAN, schizoaffective disorder, hypothyroidism, and PTSD who presents to the ED with?after a fall at and found to be satting at 76% on 10 L NC by EMS.? Patient somnolent and on BiPAP at time of interview and examination, incapable of providing accurate HPI or ROS.? HPI mainly provided by chart and provider review.? Apparently patient had a headache earlier today and took Tylenol p.m. for the pain.? Patient then apparently needed help going to the bathroom but fell and partner could not get patient up on her own so called EMS for help.? Patient also reports that she has had trouble breathing while walking lately, has felt generally unwell and had a cough.? Patient was noted to spike a fever in the ED at around 18:45. In the ED patient was febrile to 101.8, tachycardic up to 105, tachypneic up to 24, satting at 93% O2 on 8 L OxyMask. Labs were significant for H&H of 11.3/34.4, sodium of 122, chloride of 76, lipase <4.? Patient tested negative for COVID, influenza type a and B. VBG pH 7.57 with bicarb 39. CXR was very limited and essentially nondiagnostic due to patient body habitus and under exposure of the film. CT?of head likewise limited by motion and patient body habitus, though found no discrete acute intracranial abnormalities.? CTA negative for pulmonary embolus but found mild air trapping ground-glass changes in the left upper lobe. EKG demonstrated sinus tachycardia without evidence of ST elevations or depressions. Pt was treated with DuoNebs, Solu-Medrol, ceftriaxone, azithromycin, acetaminophen, ondansetron, and IVF. Pt will be admitted to the hospital for acute on chronic hypoxic respiratory failure in the setting of likely pneumonia. Hospital course The patient was admitted and treated for acute on chronic hypoxic/hypercarbic resp failure due to PNA with IV antibiotics, BiPAP, O2 supplement. Hypercarbia improved with Bipap and usage of acetazolamide as blood work was repeated in patient. Had biPAP at night; on NIV at home. completed 5 days of ceftriaxone + azithromycin. To continue nebs at time of discharge as she was weaned down to her home O2 level and was able to ambulate with no reported SOB. Noted to have E coli bacteremia with unknown source.?Liver abscess suspected but the culture from that area did not grow any bacteria up to day of discharge. treated with IV ceftriaxone and changed to cefuroxime PO to finish total of 14 days of antibiotics as she was evaluated by ID specialist who recommended Ceftin only on discharge. CT and US reported liver lesions, which had biopsy done to r/o abscesses as could just be focal fatty sparing. The patient does not fit in our MRI >200kg. biopsy of one of the lesions in the left lobe done 09/14/22 with no reported growth in cultures. To do MRI as outpatient, referred to PCP. Noted to have enlarging AAA between 2019->2022 grew from 3 to 5 cm.?will outpt Vasc Surg at tertiary care center\follow with dr Canales as OP due to her BMI. continue oxygen and non-invasive ventilation take cefuroxime 500 mg twice daily for 9 days follow up with primary care doctor within 1 week. PCP to order MRI of the liver to be done at [facility] where weight can be accomodated. See Dr Canales in 2-4 weeks to discuss management of AAA Time Spent with Patient Time attestation: Total time managing care of this patient today ____ minutes. Discharge coordination time: Greater than 30 minutes Quality: Safe Use of Opioids Does Pt have an Active Cancer Diagnosis on the Problem List?: No Quality: Stroke Does the patient have a stroke diagnosis?: No Physical Exam Vital Signs: Vital Signs: Last Vital Signs Temp 97.4 F 09/16/22 08:00 Pulse 96 09/16/22 08:00 Resp 19 09/16/22 08:00 BP 116/65 09/16/22 08:00 Pulse Ox 93 09/16/22 08:00 O2 Del Method Nasal Cannula 09/16/22 08:00 O2 Flow Rate 8 09/16/22 08:00 Oxygen Flow Rate 8 09/08/22 18:38 BMI result Body Mass Index 72.6 Const: Other: Constitutional : Awake, interactive, morbidly obese, not in distress Neck : Normal inspection, Supple Cardiovascular : RRR, no JVP, trace lower extremity edema Respiratory : fair bilateral air entry, no crackles, no wheezes or rhonchi, on oxygen supplement Gastrointestinal: soft, lax, Normal bowel sounds, Non tender Skin : Warm, Dry Neurological : Alert & oriented x3, No focal deficit DS: Data Data Completed and Pending Completed studies during hospitalization [Text1]: Procedures Assistance with Respiratory Ventilation, Less than 24 Consecutive Hours, Continuous Positive Airway Pressure (09/15/21) Pending studies at discharge: Pending at discharge 09/14/22 14:44 Surgical Path [Surgical] [PTH] Routine Labs on day of discharge: Laboratory Results - last 24 hr 09/09/22 09/15/22 09/15/22 15:41 15:27 20:47 VBG pH VBG pCO2 VBG pO2 VBG HCO3 VBG O2 Saturation VBG Base Excess Sodium Potassium Chloride Carbon Dioxide Anion Gap BUN Creatinine Estim Creat Clear Calc Estimated GFR POC Glucose 299 H 357 H* Random Glucose Calcium Ur L.pneumophila Ag Not Detected 09/16/22 09/16/22 09/16/22 06:34 06:37 07:19 VBG pH 7.43 VBG pCO2 67 VBG pO2 210 VBG HCO3 45 H VBG O2 Saturation 100.0 VBG Base Excess 17.5 Sodium 136 Potassium 3.7 Chloride 89 L Carbon Dioxide 36 H Anion Gap 15 BUN 16 Creatinine 0.72 Estim Creat Clear Calc 176.7 Estimated GFR > 60 POC Glucose 244 H Random Glucose 236 H Calcium 10.6 H Ur L.pneumophila Ag 09/16/22 11:09 VBG pH VBG pCO2 VBG pO2 VBG HCO3 VBG O2 Saturation VBG Base Excess Sodium Potassium Chloride Carbon Dioxide Anion Gap BUN Creatinine Estim Creat Clear Calc Estimated GFR POC Glucose 377 H* Random Glucose Calcium Ur L.pneumophila Ag Preliminary micro results at discharge 09/14/22 14:37 Routine Culture - Preliminary Liver No growth to date. Anaerobic Culture - Preliminary No growth to date. 09/13/22 08:15 Blood Culture - Preliminary Blood - Venous No growth after 48 hours. Imaging Chest x-ray: Radiologist's impression: ITS Impressions Chest X-Ray 09/08/22 18:44 IMPRESSION: Very limited essentially nondiagnostic examination as above, recommend correlation with the already ordered CTA of the chest. Chest CTA 09/08/22 19:50 IMPRESSION: No evidence of acute pulmonary embolus. Evaluation is suboptimal due to artifact from patient body habitus and therefore evaluation of the subsegmental branches is nondiagnostic. Bibasilar atelectasis. Air trapping and scarring seen in the left upper lobe. VTE: negative Head CT 09/08/22 19:50 IMPRESSION: Evaluation is limited by motion and patient body habitus. However, accounting for these limitations, no discrete acute intracranial abnormalities are identified. Correlation with an MRI of the brain could be obtained as clinically indicated. Abdomen/Pelvis CT 09/12/22 12:00 IMPRESSION: 5 cm abdominal aortic aneurysm. This is increased in size from December 2019 exam. Vascular surgery consultation recommended. Enlarged liver. New peripheral low-attenuation areas in the liver. This may represent atypical appearance of fatty infiltration. Liver infarcts or abscesses should also be considered. Follow-up MR of liver may be helpful. Gallstone. Constipation. Atelectasis or small infiltrates at the lung bases. Findings will be communicated by the [place] work flow rim roller operator. Fleischner guidelines were followed. Abdomen Ultrasound 09/12/22 17:44 IMPRESSION: Limited exam. Enlarged echogenic liver probably representing fatty infiltration. Multiple hypoechoic areas in the left the liver with geographic margins. Appearance is questionable areas of focal fatty sparing. Follow-up liver MRI recommended. Gallstone. Liver Biopsy Ultrasound 09/14/22 14:45 IMPRESSION: Ultrasound guided liver biopsy. Discharge Plan Discharge Anticipated Discharge Date/Time: 09/13/22 12:47 Patient Disposition: Home, Self-Care Discharge Diagnosis: acute/chronic hypoxic/hypercarbic resp failure due to pneumonia E coli bacteremia abdominal aortic aneurysm Referrals: Austin Canales MD [Physician] - 2 Weeks (5 cm AAA) Toyin Pollard FNP [Primary Care Provider] - 1 Week Discharge Medications: New cefuroxime axetil 500 mg tablet 500 mg PO BID Qty: 18 0RF Continued (DME) Ankle Brace Misc See Rx Instructions .ROUTE .MEDSUPPLY Qty: 1 0RF Rx Instructions: AIRSELECT, STANDARD, MEDIUM tramadol 50 mg tablet 50 mg PO BID PRN (Reason: Pain) Qty: 30 0RF Toujeo Max U-300 SoloStar 300 unit/mL (3 mL) insulin pen 100 unit subcut DAILY 30 Days Qty: 9.999 6RF (DME) pen needle, diabetic [BD Ultra-Fine Mary Pen Needle] 32 gauge x 5/32 needle See Rx Instructions .ROUTE .MEDSUPPLY Qty: 125 6RF Rx Instructions: As directed four times a day Trulicity 0.75 mg/0.5 mL pen injector 0.75 mg subcut QWEEK 30 Days Qty: 2.5 11RF levothyroxine 200 mcg tablet 200 mcg PO DAILY 30 Days Qty: 30 3RF levothyroxine 50 mcg tablet 50 mcg PO DAILY 30 Days Qty: 30 3RF insulin lispro [Humalog KwikPen Insulin] 100 unit/mL insulin pen 40 unit subcut TIDWMEAL 30 Days Qty: 36 11RF atorvastatin 40 mg tablet 40 mg PO DAILY 30 Days Qty: 30 11RF multivitamin Tablet 1 tab PO DAILY thiamine HCl (vitamin B1) 100 mg Tablet 100 mg PO DAILY@1200 amitriptyline 10 mg Tablet 10 mg PO BEDTIME lisinopril 10 mg Tablet 10 mg PO BEDTIME benztropine 1 mg Tablet 1 mg PO BID@1200,2100 montelukast 10 mg Tablet 10 mg PO BEDTIME furosemide 40 mg tablet 1 tab PO DAILY prazosin 5 mg capsule 1 cap PO BEDTIME folic acid 1 mg tablet 1 tab PO QAM atenolol 50 mg tablet 50 mg PO DAILY@1200 melatonin 5 mg tablet 10 mg PO BEDTIME PRN (Reason: insomnia) lurasidone [Latuda] 60 mg tablet 60 mg PO DAILY@0700 Rx Instructions: WITH 350 CALORIE MEAL docusate sodium 100 mg Capsule 100 mg PO DAILY@1200 PRN (Reason: Constipation) quetiapine 400 mg tablet 600 mg PO BEDTIME Rx Instructions: 1 400MG AND 2 100 MG alendronate 70 mg tablet 1 tab PO MO@0600 hydroxyzine HCl 50 mg tablet 1 tab PO TID PRN (Reason: Anxiety) fluticasone propionate 50 mcg/actuation spray,suspension 1 spray intranasal DAILY diclofenac sodium 1 % gel 2 g topical QID PRN (Reason: Pain) Protocol: Apply to: Apply to: KNEE, ANKLE, BACK quetiapine 25 mg tablet 100 mg PO DAILY PRN (Reason: anxiety) lidocaine 5 % Adhesive Patch,Medicated 1 patch TOPICAL DAILY Protocol: Apply to: Apply to: KNEES AND BACK Rx Instructions: leave on most painful area for up to 12 hrs albuterol sulfate [ProAir HFA] 90 mcg/actuation Hfa Aerosol Inhaler 2 puff INHALATION Q4H PRN (Reason: Respiratory Distress) acetaminophen 500 mg Tablet 1,000 mg PO Q6H PRN (Reason: Pain) white petrolatum Ointment 1 appl TOPICAL BID PRN (Reason: Dry Skin) nicotine (polacrilex) 4 mg gum 4 mg PO Q2H PRN (Reason: Nicotine Cravings) prazosin 1 mg capsule 1 mg PO BEDTIME Rx Instructions: tdd 6mg divalproex 500 mg tablet extended release 24 hr 1,000 mg PO BEDTIME divalproex 250 mg tablet extended release 24 hr 750 mg PO DAILY@1200 cetirizine 10 mg tablet 10 mg PO DAILY PRN (Reason: allergies) (DME) nebulizers Misc See Rx Instructions .ROUTE Rx Instructions: As directed (DME) Oxygen Home Use Kit See Rx Instructions .ROUTE Rx Instructions: As directed cholecalciferol (vitamin D3) 50 mcg (2,000 unit) tablet 50 mcg PO DAILY Breztri Aerosphere 160-9-4.8 mcg/actuation HFA aerosol inhaler 2 inh inhalation BID 30 Days Qty: 10.7 11RF Discharge Orders: Discharge Order (Routine); Ordered 09/16/22 Ordered By: Jessica Brock Diet: Diabetic diet Activity on Discharge: As tolerated Stand Alone Forms: Patient Portal Discharge page Care Plan Goals: resolution of infection surveillance/management of abdominal aortic aneurysm Health Concerns: acute/chronic hypoxic/hypercarbic resp failure due to pneumonia E coli bacteremia abdominal aortic aneurysm Plan of Treatment: continue oxygen and non-invasive ventilation take cefuroxime 500 mg twice daily for 9 days Please follow up with your primary care doctor within 1 week. Return to the hospital if you experience recurrent or worsening symptoms. Please ask your PCP to order MRI of the liver to be done at [facility] where your weight can be accomodated. See Dr Canales in 2-4 weeks to discuss management of AAA Assessment: See Discharge Summary. Discharge Date/Time: 09/16/22 11:59
--- NOTE | 2022-09-16 11:31 | MHC.CM.PN ---
Patient has been medically cleared for dc to home today, self care.
[2022-09-16] MEDS: Benztropine Mesylate 1 MG TABLET PO (11:32)
[2022-09-16] MEDS: atenoloL 50 MG TABLET PO (11:32)
[2022-09-16] MEDS: Thiamine HCL 100 MG TABLET PO (11:32)
[2022-09-16] MEDS: Divalproex Sodium ER 250 MG TAB.ER.24H 750 MG PO (11:33)
== END 2022-09-16 11:59 | disposition home or self-care (01) | DRG 139 ==
LOC: HO.ED 20:20 → HO.EDOVER 21:54 → HO.S3 22:06 → HO.IMC 09-09 12:23
PROVIDERS: Emergency Medicine; Family Medicine; Hospitalist; Internal Medicine Nephrology; Radiology Diagnostic Radiology; Admitting Provider Student in an Organized Health Care Education/Training Program; Emergency Provider Emergency Medicine Emergency Medical Services; PCP Registered Nurse; Visit Provider Student in an Organized Health Care Education/Training Program
PROC: 0FB23ZX Excision of Left Lobe Liver, Percutaneous Approach, Diagnostic (ICD-10-PCS; principal; 2022-09-14 13:30)
DX: J18.9 Pneumonia, unspecified organism (principal); J96.21 Acute and chronic respiratory failure with hypoxia; K75.0 Abscess of liver; G93.41 Metabolic encephalopathy; R78.81 Bacteremia; E87.1 Hypo-osmolality and hyponatremia; J44.0 Chronic obstructive pulmonary disease with (acute) lower respiratory infection; Z68.45 Body mass index [BMI] 70 or greater, adult; E78.5 Hyperlipidemia, unspecified; E03.9 Hypothyroidism, unspecified; K21.9 Gastro-esophageal reflux disease without esophagitis; I25.2 Old myocardial infarction; F43.10 Post-traumatic stress disorder, unspecified; J44.1 Chronic obstructive pulmonary disease with (acute) exacerbation; E66.01 Morbid (severe) obesity due to excess calories; F17.210 Nicotine dependence, cigarettes, uncomplicated; Z71.6 Tobacco abuse counseling; J96.22 Acute and chronic respiratory failure with hypercapnia; B96.20 Unspecified Escherichia coli [E. coli] as the cause of diseases classified elsewhere; I71.40 Abdominal aortic aneurysm, without rupture, unspecified; E87.29 Other acidosis; D64.9 Anemia, unspecified; F25.9 Schizoaffective disorder, unspecified; G47.33 Obstructive sleep apnea (adult) (pediatric); Z20.822 Contact with and (suspected) exposure to COVID-19; Z16.11 Resistance to penicillins; Z16.29 Resistance to other single specified antibiotic; Z16.23 Resistance to quinolones and fluoroquinolones; Z99.81 Dependence on supplemental oxygen; Z91.040 Latex allergy status; Z79.51 Long term (current) use of inhaled steroids; Z79.4 Long term (current) use of insulin; Z79.899 Other long term (current) drug therapy
CPT/HCPCS: 36415; 47000; 70450; 71045; 71275; 74177; 76705; 76942; 80048; 80051; 80053; 80076; 80307; 81001; 82140; 82550; 82565; 82803; 82947; 83605; 83690; 83735; 83880; 83930; 83935; 84145; 84300; 85025; 85027; 85610; 85730; 87040; 87070; 87073; 87077; 87147; 87186; 87205; 87389; 87449; 87502; 87633; 87635; 87899; 88307; 88313; 93005; 94640; 94660; 99285; J0456; J0696; J1650; J2405; J2930; J3370; Q9967

== ENCOUNTER 2022-09-29 13:11 | Outpatient (AMB) | payer MEDICAID, SELFPAY ==
--- NOTE | 2022-09-29 13:12 | A.OFFVIS_ITS ---
Intake Intake Visit Reasons: dm Allergies metformin Allergy (Intermediate, Verified 09/29/22 13:46) Diarrhea tetracycline Allergy (Intermediate, Verified 09/29/22 13:46) hives Latex, Natural Rubber Allergy (Verified 09/29/22 13:46) Rash haloperidol [From HALDOL] Adverse Reaction (Intermediate, Verified 09/29/22 13:46) Irritable duramorph/derivative or morphi Allergy (Intermediate, Uncoded 09/29/22 13:46) hives Medication List - Last Reconciled 09/29/22 by Monse Kinsey DO acetaminophen 1,000 mg PO Q6H PRN albuterol sulfate 90 mcg/actuation (ProAir HFA) 2 puffs inhalation Q4H PRN alendronate 1 tab PO MO@0600 amitriptyline 10 mg PO BEDTIME atenolol 50 mg PO DAILY@1200 atorvastatin 40 mg PO DAILY 30 days benztropine 1 mg PO BID@1200,2100 [id number] 160-9-4.8 mcg/actuation (Breztri Aerosphere) 2 inhalations inhalation BID 30 days cetirizine 10 mg PO DAILY PRN cholecalciferol (vitamin D3) 50 mcg PO DAILY diclofenac sodium 1% 2 grams See Protocol topical QID PRN divalproex ER 1,000 mg PO BEDTIME divalproex ER 750 mg PO DAILY@1200 docusate sodium 100 mg PO DAILY@1200 PRN dulaglutide (Trulicity) 0.75 mg (0.5 mL) subcut QWEEK 30 days fluticasone propionate 50 mcg/actuation 1 spray intranasal DAILY folic acid 1 tab PO QAM furosemide 1 tab PO DAILY hydroxyzine HCl 1 tab PO TID PRN insulin glargine U-300 conc (Toujeo Max U-300 SoloStar) 100 units (0.3333 mL) subcut DAILY 30 days insulin lispro (Humalog KwikPen (U-100) Insulin) 40 units (0.4 mL) subcut TIDWMEAL 30 days leg brace (Ankle Brace) AIRSELECT, STANDARD, MEDIUM levothyroxine 200 mcg PO DAILY 30 days levothyroxine 50 mcg PO DAILY 30 days lidocaine 5% 1 patch See Protocol topical DAILY lisinopril 10 mg PO BEDTIME lurasidone (Latuda) 60 mg PO DAILY@0700 melatonin 10 mg PO BEDTIME PRN montelukast 10 mg PO BEDTIME multivitamin 1 tab PO DAILY nebulizers As directed nicotine (polacrilex) 4 mg PO Q2H PRN Oxygen Home Use As directed pen needle, diabetic (BD Ultra-Fine Mary Pen Needle) As directed four times a day prazosin 1 cap PO BEDTIME prazosin 1 mg PO BEDTIME quetiapine 100 mg PO DAILY PRN quetiapine 600 mg PO BEDTIME thiamine HCl (vitamin B1) 100 mg PO DAILY@1200 tramadol 50 mg PO BID PRN white petrolatum 1 appl topical BID PRN HPI HPI Comments History of Present Illness Details 52 YO F with PMHx who is seen in F/U for T2DM and a NTMNG and hypothyroidism. Diabetes will not be addressed today. 1) T2DM: Initially diagnosed with T2DM in 2020. Was initially started on treatment with Metformin. She was unable to tolerate this due to GI distress.. Current regimen Lantus 40 units qHS and Humalog 12 units AC and glimepiride 4 mg PO daily. Uses CGM myJambi Todd. 14 days of data downloaded and interpreted from 02/01/2022 through 02/14/2022. This reveals an average glucose of 282, with GMI 10.1%. She is at goal 3% of the time, above goal 97% of the time, and below goal 0% of the time. Reports low sugars rarely. Treats according to the rule of 15's. Most recent A1C: 8.0% 01/27/2022. A1C is inaccurate due to CKD with GFR of 61. Family history of T2DM in her Sister. Has eyes checked yearly, last eye exam early 2020, denies retinopathy. Denies neuropathy, last foot exam 02/14/2022. Denies nephropathy, on Lisinopril 10 mg PO daily. No recent UAC on file. Has HLD, on Atorvastatin 20 mg PO daily. Last LDL 100 as measured on 01/27/2022. Has CAD. Diet: High in simple carbohydrates. Weight: Stable Has had diabetes education. 2) Thyroid Nodule: After her initial visit with me I had asked her to have a full set of TFTs completed, as well as a CT of the neck and a barium swallow. She initially failed to do this.? She has not had her labs repeated, but did have her CT which revealed an enlarged R lobe of the thyroid with mass effect on the esophagus as well as the hypopharynx.? She was referred to Dr. Read for a surgical thyroidectomy.? He reviewed her US and felt that the gland was not significantly enlarged enough to be causing compressive symptoms and recommended against a surgical thyroidectomy. In terms of her hypothyroidism, she was first diagnosed with Hypothyroidism many years ago. Her dose of Levothyroxine has been steadily increased to her current dose of 250 mcg PO daily.? She is spacing this appropriately from her iron and reports good compliance. She completed a levothyroxine absorption test and this was WNL. After that she did admit to poor compliance. She now reports good compliance with her levothyroxine, but levels have not yet been reassessed. ? 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 CT Neck: 11/18/2019 FINDINGS: ? ? This examination is limited without contrast. The thyroid gland is ? ? enlarged and soft tissue contiguous with the upper pole of the right ? ? thyroid lobe extends lateral and posterior to the hypopharynx lower ? ? cervical esophagus, inseparable from the structures for example on ? ? image 67 of series 2. This could reflect an exophytic thyroid tissue ? ? alternative pathology to be better assessed with postcontrast CT or a ? ? neck MRI with and without IV contrast. Suspected mass effect on the ? ? hypopharynx and cervical esophagus by this soft tissue. The trachea ? ? remains midline and patent. Artifact precludes assessment of the ? ? inferior extent of the thyroid lobe including the substernal region ? ? which is not included on this exam. ? ? Possible retropharyngeal course of the internal carotid arteries ? ? bilaterally that should be further assessed with postcontrast CT ? ? imaging or a neck MRA prior to any cervical surgical intervention. ? ? Superficial mucosal spaces not diagnostically assessed without ? ? contrast. ? ? Reversal of the cervical lordosis and multilevel cervical spondylosis. ? ? Metallic nails project through the skin of the lower lips which can be ? ? clinically correlated for piercings in these areas. If considering a ? ? MRI, MR compatibility would need to be determined. Labs: Laboratory Tests 09/04/22 11:58 TSH 20.93 H Free T4 0.69 L PFSH Medical History AAA (abdominal aortic aneurysm) without rupture Acute and chronic respiratory failure with hypoxia ADHD Aortic aneurysm Arthritis Asthma Back pain Chronic respiratory failure Chronic restrictive lung disease COPD (chronic obstructive pulmonary disease) Depression Diabetes Diabetes DM2 (diabetes mellitus, type 2) Fibula fracture Gallstone GERD (gastroesophageal reflux disease) Goiter Hepatitis Hernia History of posttraumatic stress disorder (PTSD) HLD (hyperlipidemia) HLD (hyperlipidemia) HTN (hypertension) Hx of fracture of patella Hypothyroidism Hypothyroidism Migraine Morbid (severe) obesity due to excess calories Morbid obesity Multinodular thyroid Myocardial infarction Obesity due to excess calories MORGAN on CPAP Pneumonia Pneumonitis PTSD (post-traumatic stress disorder) Pulmonary nodules Schizo affective schizophrenia Sleep apnea T2DM (type 2 diabetes mellitus) Umbilical hernia Vitamin D deficiency Surgical History History of incision and drainage Hx of knee surgery Hx of tubal ligation Tubal ligation status Family History Father Unknown family medical history Mother Unknown family medical history Sister Ovarian cancer Son No problems noted. Son Depression Son Asthma Bipolar 1 disorder ADHD Daughter No problems noted. Daughter Unknown family medical history Daughter Unknown family medical history Daughter No problems noted. Social History Household Members: None Caregiver staying overnight: No Housing: Apartment Are you a primary cattle care worker to a significant other at home: No Do you presently have visiting nurse or other home services: No 75 years or older and lives alone: No Unable to assess alcohol history related to: Unable to respond Alcohol intake: never Patient Tobacco Use Status: Never used Tobacco Tobacco use type: Cigarette Cigarette Packs Per Day: 6 Years Smoked: 35 e-Cigarette/Vaping Use: Currently Using Substance Use Type: Marijuana Advance Directives Date on File: 09/13/21 service: No Current occupational status: unemployed Assessment & Plan Assessment & Plan (1) Hypothyroidism: Code(s): E03.9 - Hypothyroidism, unspecified Plan: Will repeat TFTs now and I will call her with adjustments. She will come back for a dedicated Diabetes visit with Dr. Brennan. All questions were answered. She is in agreement with this plan of care. I spent 20 minutes in reviewing the record, seeing the patient and documenting in the medical record, including 5 minutes on the phone with the Patient. Orders: Orders Free T4 (Free Thyroxine) Today E03.9 - Hypothyroidism, unspecified Thyroid Stimulating Hormone Today E03.9 - Hypothyroidism, unspecified Telehealth Telehealth Location of provider rendering services: practice address Location of patient: address on file Patient Identification confirmed using: Name, : Yes Telehealth method: voice only Patient verbally consented to treatment: Yes Patient verbally consented to billing insurance company: Yes Patient informed of any privacy concerns related to visit: Yes Coding Level of Care Code Est Pt Level 3 (47691) Diagnoses Hypothyroidism E03.9
== END 2022-09-29 16:33 | disposition home or self-care (01) ==
LOC: HO.ENCR 13:11
PROVIDERS: PCP Registered Nurse; Visit Provider Internal Medicine
DX: E03.9 Hypothyroidism, unspecified (principal)
CPT/HCPCS: 99213

== ENCOUNTER → 2022-09-29 13:11 | Outpatient (BNVA) | payer MEDICAID, SELFPAY | PROVIDERS: PCP Registered Nurse; Visit Provider Internal Medicine | DX: E03.9 Hypothyroidism, unspecified (principal); E11.9 Type 2 diabetes mellitus without complications; Z79.4 Long term (current) use of insulin | CPT/HCPCS: 99212 ==

== ENCOUNTER 2022-09-30 13:19 | Outpatient (AMB) | payer MEDICAID, SELFPAY ==
[2022-09-30 13:25] VITALS: PULSE 88; O2SAT 93; BMI 65.7
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
[2022-10-02 23:43] VITALS: PULSE 89; O2SAT 82
== END 2022-09-30 13:45 | disposition home or self-care (01) ==
PROVIDERS: PCP Registered Nurse; Visit Provider Hospitalist
DX: J44.9 Chronic obstructive pulmonary disease, unspecified (principal); R91.8 Other nonspecific abnormal finding of lung field; F17.210 Nicotine dependence, cigarettes, uncomplicated; J96.11 Chronic respiratory failure with hypoxia; J96.12 Chronic respiratory failure with hypercapnia; J18.9 Pneumonia, unspecified organism
CPT/HCPCS: 94618; 99214

== ENCOUNTER → 2022-09-30 13:19 | Outpatient (BNVA) | payer MEDICAID, SELFPAY | PROVIDERS: PCP Registered Nurse; Visit Provider Hospitalist | DX: J44.9 Chronic obstructive pulmonary disease, unspecified (principal); J96.11 Chronic respiratory failure with hypoxia; J96.12 Chronic respiratory failure with hypercapnia; J18.9 Pneumonia, unspecified organism; R91.8 Other nonspecific abnormal finding of lung field; F17.210 Nicotine dependence, cigarettes, uncomplicated | CPT/HCPCS: 94618; 99212 ==

== ENCOUNTER → 2022-10-20 08:27 | Outpatient (BNVA) | payer MEDICAID, SELFPAY | PROVIDERS: PCP Registered Nurse; Visit Provider Internal Medicine ==

== ENCOUNTER 2022-10-24 11:57 | Outpatient (REF) | payer MEDICAID, SELFPAY ==
[2022-10-24 15:11] LABS: Free T4 (Free Thyroxine) 0.65 ng/dL (0.71-1.85)
[2022-10-24 15:12] LABS: Alanine Aminotransferase 12 U/L (0-31); Albumin Level 4.3 g/dL (3.5-5.0); Alkaline Phosphatase 66 U/L (39-117); Anion Gap 14 (12-20); Aspartate Amino Transferase 12 U/L (5-31); Bilirubin Total 0.2 mg/dL (0.0-1.0); Blood Urea Nitrogen 15 mg/dL (9-16); Calcium 10.1 mg/dL (8.4-10.2); Carbon Dioxide 38 mmol/L (22-29); Chloride 90 mmol/L (96-108); Cholesterol 156 mg/dL; Estimated Glomerular Filt Rate > 60; Glucose Random 162 mg/dL (60-115); HDL Cholesterol 44 mg/dL; LDL Cholesterol Calculated 68 mg/dl; Potassium 4.8 mmol/L (3.3-5.1); Sodium 137 mmol/L (135-145); Total Protein 7.8 g/dL (6.5-8.0); Triglycerides 222 mg/dL
[2022-10-24 15:17] LABS: Estimated Average Glucose 203 mg/dL; Hemoglobin A1c % 8.7 %
[2022-10-25 13:24] LABS: LDL Cholesterol Direct 72 mg/dL (<100)
== END 2022-10-24 11:58 | disposition home or self-care (01) ==
LOC: HO.10HDL 11:57
PROVIDERS: Visit Provider Internal Medicine
DX: E11.9 Type 2 diabetes mellitus without complications (principal); E03.9 Hypothyroidism, unspecified; J18.9 Pneumonia, unspecified organism
CPT/HCPCS: 36415; 80053; 80061; 83036; 83721; 84439; 84443

== ENCOUNTER 2022-11-04 11:25 | Outpatient (REF) | payer MEDICAID, SELFPAY ==
--- NOTE | 2022-11-04 12:22 | PFT_ITS ---
Forced vital capacity 39%, FEV1 34%. FEV1/FVC ratio is 72. [id number] 12% and MVV 34%. Post bronchodilator therapy, significant improvement in [id number] is noted. There is disturbance in inspiratory effort and which may be accounting for numbers. Lung volumes: TLC 68%, residual volume 137%, and diffusion capacity is 42%. CONCLUSION: Severe obstructive airway disorder. There is some improvement in the small airway function after bronchodilator therapy indicating some degree of bronchospasm. Clinical correlation is recommended. Elian Maradiaga MD MSB/MODL / [phone]
== END 2022-11-04 11:26 | disposition home or self-care (01) ==
LOC: HO.RESP 11:25
PROVIDERS: Visit Provider Hospitalist
DX: J44.9 Chronic obstructive pulmonary disease, unspecified (principal)
CPT/HCPCS: 94010; 94727; 94729

== ENCOUNTER → 2022-11-04 12:22 | Outpatient (BNV) | payer MEDICAID, SELFPAY | PROVIDERS: Visit Provider Internal Medicine | DX: J44.9 Chronic obstructive pulmonary disease, unspecified (principal); G47.33 Obstructive sleep apnea (adult) (pediatric); R91.8 Other nonspecific abnormal finding of lung field | CPT/HCPCS: 94060; 94727; 94729 ==

== ENCOUNTER 2023-01-06 15:15 | Outpatient (AMB) | payer MEDICAID, SELFPAY ==
[2023-01-06 15:27] VITALS: PULSE 89; O2SAT 94; BMI 65.7
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
== END 2023-01-06 15:54 | disposition home or self-care (01) ==
PROVIDERS: PCP Registered Nurse; Visit Provider Hospitalist
DX: J44.1 Chronic obstructive pulmonary disease with (acute) exacerbation (principal); R91.8 Other nonspecific abnormal finding of lung field; F17.200 Nicotine dependence, unspecified, uncomplicated; J96.11 Chronic respiratory failure with hypoxia; J96.12 Chronic respiratory failure with hypercapnia; J18.9 Pneumonia, unspecified organism
CPT/HCPCS: 99214

== ENCOUNTER → 2023-01-06 15:15 | Outpatient (BNVA) | payer MEDICAID, SELFPAY | PROVIDERS: PCP Registered Nurse; Visit Provider Hospitalist | DX: J44.1 Chronic obstructive pulmonary disease with (acute) exacerbation (principal); J98.4 Other disorders of lung; G47.33 Obstructive sleep apnea (adult) (pediatric); F17.210 Nicotine dependence, cigarettes, uncomplicated; Z99.81 Dependence on supplemental oxygen; Z99.89 Dependence on other enabling machines and devices | CPT/HCPCS: 99212 ==

== ENCOUNTER 2023-02-06 10:11 | Outpatient (RCR) | payer MEDICAID, SELFPAY | END 2023-02-17 15:06 | disposition home or self-care (01) | LOC: HO.PR 10:11 | PROVIDERS: PCP Registered Nurse; Visit Provider Hospitalist | DX: J96.10 Chronic respiratory failure, unspecified whether with hypoxia or hypercapnia (principal); J44.9 Chronic obstructive pulmonary disease, unspecified | CPT/HCPCS: 99215 ==

== ENCOUNTER 2023-03-01 13:58 | Outpatient (REF) | payer MEDICAID, SELFPAY ==
[2023-03-01 14:30] LABS: Appearance Urine Cloudy; Color Urine Yellow; Glucose Urine UA >=1000 mg/dL (Negative); Leukocyte Esterase Urine Moderate (2+) (Negative); Nitrite Urine Negative (Negative); PH 6.5 (5.0-9.0); UMIC TRIGGER UA YES; Urine Blood Small (1+) (Negative); Urine Ketones Negative (Negative); Urine Protein Negative (Neg-Trace)
[2023-03-01 14:56] LABS: Bacteria Urine 4+ (None Seen); Hyaline Casts Urine 0-2 /LPF (0-2); Squamous Epithelial Cell Urine 0-2 /HPF (0-2); WBC Urine >50 /HPF (0-5)
== END 2023-03-01 13:59 | disposition home or self-care (01) ==
LOC: HO.HHCLNP 13:58
PROVIDERS: Visit Provider Registered Nurse
DX: N30.90 Cystitis, unspecified without hematuria (principal)
CPT/HCPCS: 81001; 81003; 87086; 87088; 87186

== ENCOUNTER 2023-03-03 09:03 | Outpatient (REF) | payer MEDICAID, SELFPAY ==
--- NOTE | 2023-03-03 12:53 | MHC.AU.MED ---
Medical Clearance for Hearing Instrumentation Date: 03/03/23 Patient Name: Elle Lopez Date of : 1970 Primary Care Provider: LOUIE Finley We have seen your patient on 03/03/23 and have determined that they are a candidate for amplification (See accompanying report). Specifically, they would benefit from: Hearing aid use in both ears There is a statute that addresses Medical Evaluation Requirements prior to fitting a patient with a hearing aid. According to [place] statute [facility] CMR:6.03(1), (a) General. Except as provided in 265 CMR 6.03(1)(b), a visual education director shall not sell a hearing aid unless the prospective user has presented to the visual education director a written statement signed by a licensed physician that states that the patient's hearing loss has been medically evaluated and the patient may be considered a candidate for a hearing aid. The medical evaluation must have taken place within the preceding six months. Please note: Due to the [place] Statute referenced above, we cannot accept a signature other than that of a licensed physician. MACHINE STAMPER and PA signatures cannot be accepted. I am in agreement with the above recommendation. There is no medical contraindication for hearing instrumentation. Physician Signature Date Physician Name (Printed)
--- NOTE | 2023-03-07 11:39 | MHC.AU.HA3 ---
Hearing Instrument Follow-Up- Binaural Date of Visit: 03/03/23 Left Ear: Make, Model, Color, Serial Number: Bruce Shields P70-R SN: [id number] Color: Silver Bennett In Processing Instructor Repair Warranty: 05/17/2025 In Processing Instructor Loss and Damage Warranty: 05/17/2025 [facility] Service Plan: 03/09/2023 Battery Size: Rechargeable Reclamation Supervisor/Slim Tube: 1M Earmold/Dome/CShell/SlimTip: Small vented dome (no retention tail) Type of Wax Guard: CeruSheild Dispensed By: [facility] Date of Fittin03/09/2022 Follow-Up Summary: Elle reported that her hearing aid is not working. upon arrival due to no charge. Elle reported she charged it fully last night and saw the green light today. After charging in office, hearing aid was functioning. Cleaned hearing aid and vacuumed microphones. Replaced dome and wax guard. A listening check demonstrated hearing aid is amplifying clearly. Elle will monitor battery status and will readdress at next appointment. Given mild hearing loss in right ear, will fit new right hearing aid with slim tip ear mold pending medical clearance. Will also add slim tip ear mold to left hearing aid. See separate Hearing Aid Evaluation report. Recommendations: Hearing instrument follow-up or maintenance as needed. Please contact our clinic with any questions or concerns. Diagnosis Code(s): Primary Diagnosis: H90.A21 SNHL, Unilateral Right Ear, W/Restricted Contralateral Hearing Secondary Diagnosis: H90.A32 Mixed HL, Unilateral, Left Ear, W/Restricted Contralateral Signature: Provider: Caden Del Angel, [facility]
--- NOTE | 2023-03-07 11:52 | MHC.AU.HA1 ---
Hearing Aid Evaluation Date of Visit: 03/03/23 Historical Information: Description of Hearing: Right Ear: Mild hearing loss; Left Ear: Moderate to moderately-severe hearing loss Current personal amplification information: Phonak Audeo P70-R in left ear Summary: Elle was fit with a left-sided hearing aid in February 2022. Although she has a mild hearing loss in her right ear, medical clearance was provided for the left ear only at that time. Since then, Elle has noticed a change in hearing in her right ear. The hearing in her right ear has decreased slightly in the presence of middle ear dysfunction compared to her last evaluation at [facility] in January 2022. However, bone conduction could not be tested to due space constraints with her motorized scooter. Elle will follow up with the ENT for persistent right-sided middle ear dysfunction and for bone conduction testing. In the meantime, medical clearance will be requested from her PCP for a right-sided hearing aid. Impressions were taken, bilaterally, for slim tip ear molds. Will add left ear mold to current hearing aid. Hearing Aid Prescription: Based on the individual?s shared listening needs, communication environments, dexterity, desire for connectivity, and personal preferences, the following prescription for amplification has been made: Right ear: Make, Model, Color: Phonak Audeo P70-R Color: Silver Bennett Battery Size: Rechargeable Electronic Commerce Specialist/Slim Tube: 1M Type of Earmold/Dome/CShell/SlimTip: Phonak SlimTip ear mold Left ear: Current Hearing Aid fit in February 2022 (Will add slim tip ear mold) Make, Model, Color: Phonak Audeo P70-R SN: [id number] Color: Silver Bennett Battery Size: Rechargeable Electronic Commerce Specialist/Slim Tube: 1M Type of Earmold/Dome/CShell/SlimTip: Small vented dome (no retention tail) Accessories/Assistive Technology: Water Systems Engineer Plan of Care: Patient wishes to purchase hearing aids as prescribed Action Taken/Action Needed: Earmold Impressions Taken. Medical Clearance to be requested from PCP/ENT. Hearing Instrument Fitting to be scheduled when materials arrive Comments: Right hearing aid and both left and right slim tip ear molds will be ordered once medical clearance is received. Primary Diagnosis: H90.A21 SNHL, Unilateral Right Ear, W/Restricted Contralateral Hearing Secondary Diagnosis: H90.A32 Mixed HL, Unilateral, Left Ear, W/Restricted Contralateral Signature: Provider: Caden Del Angel, [facility]
== END 2023-03-03 09:04 | disposition home or self-care (01) ==
LOC: HO.SH 09:03
PROVIDERS: Visit Provider Registered Nurse
DX: Z01.118 Encounter for examination of ears and hearing with other abnormal findings (principal); Z46.1 Encounter for fitting and adjustment of hearing aid; H90.A21 Sensorineural hearing loss, unilateral, right ear, with restricted hearing on the contralateral side; H90.A32 Mixed conductive and sensorineural hearing loss, unilateral, left ear with restricted hearing on the contralateral side
CPT/HCPCS: 92552; 92556; 92567; 92590; 92592; 99499

== ENCOUNTER 2023-03-03 10:43 | Outpatient (REF) | payer MEDICAID, SELFPAY ==
[2023-03-03 13:35] LABS: Free T4 (Free Thyroxine) 0.59 ng/dL (0.71-1.85); Thyroid Stimulating Hormone 24.99 uIU/mL (0.32-4.0)
== END 2023-03-03 10:44 | disposition home or self-care (01) ==
LOC: HO.10HDL 10:43
PROVIDERS: Visit Provider Internal Medicine
DX: E03.9 Hypothyroidism, unspecified (principal)
CPT/HCPCS: 36415; 84439; 84443

== ENCOUNTER 2023-03-09 17:28 | Outpatient (REF) | payer MEDICAID, SELFPAY | END 2023-03-09 17:29 | disposition home or self-care (01) | LOC: HO.HHCLNP 17:28 | PROVIDERS: Visit Provider Family Medicine | DX: N30.00 Acute cystitis without hematuria (principal) | CPT/HCPCS: 87086; 87088; 87186 ==

== ENCOUNTER 2023-03-27 17:29 | Outpatient (REF) | payer MEDICAID, SELFPAY | END 2023-03-27 17:30 | disposition home or self-care (01) | LOC: HO.HHCLNP 17:29 | PROVIDERS: Visit Provider Registered Nurse | DX: N30.90 Cystitis, unspecified without hematuria (principal) | CPT/HCPCS: 87086; 87088; 87186 ==

== ENCOUNTER 2023-03-30 10:46 | Outpatient (AMB) | payer MEDICAID, SELFPAY ==
--- NOTE | 2023-03-30 11:05 | MHC.OFFVIS ---
Intake Vital Signs 03/30/23 11:21 Height 5 ft 6 in BMI Reason not done Patient refused/unable BP 92/68 Blood Pressure Location Lt radial Position Sitting Pulse 78 Pulse Source Pulse Oximeter Intake Visit Reasons: DM/CONFIRMED Intake Note: Patient present today to follow up on Type 2 Diabetes Mellitus. Previously managed by Dr. Angel. Patient receives DME supplies through: At the moment patient is not receiving supplies. Last Diabetic Eye exam: 2021 Last Podiatry Visit: Does not see one at the moment Random Glucose: 162mg/dl HgA1C: 10.4% Ham Boner Required: No Accompanied by: Spouse Allergies metformin Allergy (Intermediate, Verified 03/30/23 11:23) Diarrhea tetracycline Allergy (Intermediate, Verified 03/30/23 11:23) hives Latex, Natural Rubber Allergy (Verified 03/30/23 11:23) Rash haloperidol [From HALDOL] Adverse Reaction (Intermediate, Verified 03/30/23 11:23) Irritable duramorph/derivative or morphi Allergy (Intermediate, Uncoded 03/30/23 11:23) hives HPI HPI Comments History of Present Illness Details 52 YO F with PMHx who is seen in F/U for T2DM and a NTMNG and hypothyroidism. The patient last saw Dr. Angel on 09/29/2022 1) T2DM: Initially diagnosed with T2DM in 2020. Was initially started on treatment with Metformin. She was unable to tolerate this due to GI distress.. Current regimen Lantus 100 units qHS and Humalog 40 units AC and stopped glimepiride 4 mg PO daily. Unfortunately, patient did not bring her Todd or glucometer to follow-up visit Reports low sugars rarely. Treats according to the rule of 15's. . Family history of T2DM in her Sister. Has eyes checked yearly, last eye exam 1 1/2 yrs . Needs to make appt , denies retinopathy. Denies neuropathy, last foot exam 02/14/2022. Denies nephropathy, on Lisinopril 10 mg PO daily. No recent UAC on file. Has HLD, on Atorvastatin 20 mg PO daily. Last LDL 100 as measured on 01/27/2022. Has CAD. Diet: High in simple carbohydrates. Weight: Stable Has had diabetes education. 2) Thyroid Nodule: After her initial visit with me I had asked her to have a full set of TFTs completed, as well as a CT of the neck and a barium swallow. She initially failed to do this.? She has not had her labs repeated, but did have her CT which revealed an enlarged R lobe of the thyroid with mass effect on the esophagus as well as the hypopharynx.? She was referred to Dr. Read for a surgical thyroidectomy.? He reviewed her US and felt that the gland was not significantly enlarged enough to be causing compressive symptoms and recommended against a surgical thyroidectomy. In terms of her hypothyroidism, she was first diagnosed with Hypothyroidism many years ago. Her dose of Levothyroxine has been steadily increased to her current dose of 250 mcg PO daily.? She is spacing this appropriately from her iron and reports good compliance. She completed a levothyroxine absorption test and this was WNL. After that she did admit to poor compliance. She now reports good compliance with her levothyroxine, but levels have not yet been reassessed. ? 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 CT Neck: 11/18/2019 FINDINGS: ? ? This examination is limited without contrast. The thyroid gland is ? ? enlarged and soft tissue contiguous with the upper pole of the right ? ? thyroid lobe extends lateral and posterior to the hypopharynx lower ? ? cervical esophagus, inseparable from the structures for example on ? ? image 67 of series 2. This could reflect an exophytic thyroid tissue ? ? alternative pathology to be better assessed with postcontrast CT or a ? ? neck MRI with and without IV contrast. Suspected mass effect on the ? ? hypopharynx and cervical esophagus by this soft tissue. The trachea ? ? remains midline and patent. Artifact precludes assessment of the ? ? inferior extent of the thyroid lobe including the substernal region ? ? which is not included on this exam. ? ? Possible retropharyngeal course of the internal carotid arteries ? ? bilaterally that should be further assessed with postcontrast CT ? ? imaging or a neck MRA prior to any cervical surgical intervention. ? ? Superficial mucosal spaces not diagnostically assessed without ? ? contrast. ? ? Reversal of the cervical lordosis and multilevel cervical spondylosis. ? ? Metallic nails project through the skin of the lower lips which can be ? ? clinically correlated for piercings in these areas. If considering a ? ? MRI, MR compatibility would need to be determined. Labs: Laboratory Tests 09/04/22 11:58 TSH 20.93 H Free T4 0.69 L her levothyroxine was recently switched to Tirosint 300 mcg but she has not been taking the 100 mcg component [facility] Medical History (Updated 01/09/23 @ 08:27 by Jacob Morrow MD) COPD (chronic obstructive pulmonary disease) Hypothyroidism Multinodular thyroid HLD (hyperlipidemia) T2DM (type 2 diabetes mellitus) Pneumonitis Chronic respiratory failure Pulmonary nodules Pneumonia Acute and chronic respiratory failure with hypoxia MORGAN on CPAP Morbid (severe) obesity due to excess calories Chronic restrictive lung disease Obesity due to excess calories DM2 (diabetes mellitus, type 2) HLD (hyperlipidemia) Diabetes Goiter Vitamin D deficiency Hypothyroidism Fibula fracture Hx of fracture of patella Back pain GERD (gastroesophageal reflux disease) Hepatitis History of posttraumatic stress disorder (PTSD) Depression Myocardial infarction AAA (abdominal aortic aneurysm) without rupture Morbid obesity Hernia Umbilical hernia PTSD (post-traumatic stress disorder) ADHD Schizo affective schizophrenia Arthritis Migraine Diabetes HTN (hypertension) Gallstone Aortic aneurysm Sleep apnea Asthma Surgical History Hx of knee surgery Hx of tubal ligation History of incision and drainage Tubal ligation status Family History Father Unknown family medical history Mother Unknown family medical history Sister Ovarian cancer Son No problems noted. Son Depression Son Asthma Bipolar 1 disorder ADHD Daughter No problems noted. Daughter Unknown family medical history Daughter Unknown family medical history Daughter No problems noted. Social History Household Members: None Caregiver staying overnight: No Housing: Apartment Are you a primary healthcare or medical to a significant other at home: No Do you presently have visiting nurse or other home services: No 75 years or older and lives alone: No Unable to assess alcohol history related to: Unable to respond Alcohol intake: never Patient Tobacco Use Status: Never used Tobacco Tobacco use type: Cigarette Cigarette Packs Per Day: 6 Years Smoked: 35 e-Cigarette/Vaping Use: Currently Using Substance Use Type: Marijuana Advance Directives Date on File: 09/13/21 service: No Current occupational status: unemployed Physical Exam Vital Signs: Last Vital Signs Pulse 78 03/30/23 11:21 BP 92/68 03/30/23 11:21 Absence of Cushingoid features. Patient is wheelchair-bound and morbidly obese Absence of acromegalic features. Neck exam reveals nl size thyroid about 15 gms. No thyroid nodules palpable. No carotid bruits present. Lungs CTA. Heart S1 S2, Reg R/R. No M/R/ G. Skin exam reveals absence of vitiligo or acanthosis nigricans. Abdominal exam reveals Soft NT/ND with NA BS. No organomegaly present. Neck Other: . Extrem Other: Visual exam of foot performed. No ulcerations or open lesions. No onchomycosis, no callouses.Pulses 2 + distally Sensation intact to monofilament exam. Vibratory sensation sensed is intact with 128 Hz tuning fork Results AMB Hemoglobin A1c AMB Hemoglobin A1c 10.4 % Last Edit by NOEMI Worrell on 03/30/23 11:57 Results Reviewed Results Reviewed: Laboratory Last Values Glucose (Clinic) 162 mg/dL (60-115) H 03/30/23 11:41 Assessment & Plan Assessment & Plan (1) Diabetes: Comment: new dx 11/2019-glucose usually [id number] being adjusted-currently taking glimiperide and lantus Code(s): E11.9 - Type 2 diabetes mellitus without complications Plan: This is a 53-year-old female with a history of type 2 diabetes being treated with basal-bolus insulin with poor glycemic control and no known microvascular or macrovascular complications. Plan is to talk to the patient about either scanning with the Todd will checking her fingersticks pre and post meals and bring them with her to future appointments. Can not make any adjustments in the insulin regimen today because of lack of data. Explained to patient relationship a poor glycemic control to development and progression of complications. Will have patient check microalbumin to creatinine ratio (2) Hypothyroidism: Code(s): E03.9 - Hypothyroidism, unspecified Plan: Medication was recently changed to Tirosint brand 300 mcg. Recheck TSH and free T4 in 6 weeks time after restarting 300 mcg and urge patient to be compliant with medication Orders: Orders Microalbumin, Random (w Creat) Today E11.9 - Type 2 diabetes mellitus without complications AMB Hemoglobin A1c Today E11.9 - Type 2 diabetes mellitus without complications Medications: Refilled flash glucose sensor (FreeStyle Todd 2 Sensor kit) As directed change every 14 days 2 ea 5RF Coding Level of Care Code Est Pt Level 4 (16280) Diagnoses Diabetes E11.9 Hypothyroidism E03.9
[2023-03-30 11:21] VITALS: BP 92/68; PULSE 78
[2023-03-30 11:49] LABS: Glucose, Whole Blood 162 mg/dL (60-115)
== END 2023-03-30 12:10 | disposition home or self-care (01) ==
PROVIDERS: PCP Registered Nurse; Visit Provider Internal Medicine Endocrinology, Diabetes & Metabolism
DX: E11.9 Type 2 diabetes mellitus without complications (principal); E03.9 Hypothyroidism, unspecified
CPT/HCPCS: 99214

== ENCOUNTER → 2023-03-30 10:46 | Outpatient (BNVA) | payer MEDICAID, SELFPAY | PROVIDERS: PCP Registered Nurse; Visit Provider Internal Medicine Endocrinology, Diabetes & Metabolism | DX: E11.9 Type 2 diabetes mellitus without complications (principal); E03.9 Hypothyroidism, unspecified | CPT/HCPCS: 82947; 83036; 99212 ==

== ENCOUNTER 2023-04-12 10:49 | Outpatient (AMB) | payer MEDICAID, SELFPAY ==
--- NOTE | 2023-04-12 11:21 | A.OFFVIS_ITS ---
Intake Intake Visit Reasons: DM/CONFIRMED Shift Coordinator Required: No Accompanied by: Spouse Allergies metformin Allergy (Intermediate, Verified 03/30/23 11:23) Diarrhea tetracycline Allergy (Intermediate, Verified 03/30/23 11:23) hives Latex, Natural Rubber Allergy (Verified 03/30/23 11:23) Rash haloperidol [From HALDOL] Adverse Reaction (Intermediate, Verified 03/30/23 11:23) Irritable duramorph/derivative or morphi Allergy (Intermediate, Uncoded 03/30/23 11:23) hives HPI Comprehensive Diabetes Asmnt Most Recent Diabetes Results: No Data to Display [facility] Medical History (Updated 01/09/23 @ 08:27 by Jacob Morrow MD) COPD (chronic obstructive pulmonary disease) Hypothyroidism Multinodular thyroid HLD (hyperlipidemia) T2DM (type 2 diabetes mellitus) Pneumonitis Chronic respiratory failure Pulmonary nodules Pneumonia Acute and chronic respiratory failure with hypoxia MORGAN on CPAP Morbid (severe) obesity due to excess calories Chronic restrictive lung disease Obesity due to excess calories DM2 (diabetes mellitus, type 2) HLD (hyperlipidemia) Diabetes Goiter Vitamin D deficiency Hypothyroidism Fibula fracture Hx of fracture of patella Back pain GERD (gastroesophageal reflux disease) Hepatitis History of posttraumatic stress disorder (PTSD) Depression Myocardial infarction AAA (abdominal aortic aneurysm) without rupture Morbid obesity Hernia Umbilical hernia PTSD (post-traumatic stress disorder) ADHD Schizo affective schizophrenia Arthritis Migraine Diabetes HTN (hypertension) Gallstone Aortic aneurysm Sleep apnea Asthma Surgical History Hx of knee surgery Hx of tubal ligation History of incision and drainage Tubal ligation status Family History Father Unknown family medical history Mother Unknown family medical history Sister Ovarian cancer Son No problems noted. Son Depression Son Asthma Bipolar 1 disorder ADHD Daughter No problems noted. Daughter Unknown family medical history Daughter Unknown family medical history Daughter No problems noted. Social History Household Members: None Caregiver staying overnight: No Housing: Apartment Are you a primary skin care instructor to a significant other at home: No Do you presently have visiting nurse or other home services: No 75 years or older and lives alone: No Unable to assess alcohol history related to: Unable to respond Alcohol intake: never Patient Tobacco Use Status: Never used Tobacco Tobacco use type: Cigarette Cigarette Packs Per Day: 6 Years Smoked: 35 e-Cigarette/Vaping Use: Currently Using Substance Use Type: Marijuana Advance Directives Date on File: 09/13/21 service: No Current occupational status: unemployed Assessment & Plan Assessment & Plan (1) Diabetes: Comment: new dx 11/2019-glucose usually [id number] being adjusted-currently taking glimiperide and lantus Code(s): E11.9 - Type 2 diabetes mellitus without complications Plan: Learning objectives: The patient was provided with verbal and written education on the following topics as outlined below. Assess patient education level/literacy/barriers Patient questions/concerns, patient has not restarted using Todd 2 sensor, although she does have approval in patient chart. Message sent to Dr. Brennan to send new prescription to [facility] [place] pharmacy so she can poultry picker Todd 2 sensor. Reviewed with patient how to use Todd 2 sensor Patient also complains that Trulicity 0.75 mg causes pain at injection site, reviewed with patient appropriate injection sites for GLP 1 and insulin. Recommended to patient she let GLP 1 warmup to room temperature before injecting, to see if that alleviates discomfort. In addition discussed with patient switching from Trulicity 0.75 to Mounjaro 2.5mg The patient met all learning objectives and was able to verbalize understanding and provide teach back of education topics discussed . The patient was provided with the opportunity to ask questions and all questions were answered. Topics covered in today?s session included: Insulin/Injectables (If applicable) * Storage/care of insulin?? * Injection sites? * Site rotation? * Onset, peak, duration * Drawing up insulin? * Injecting insulin/other injectables? * Sharps disposal Continuous blood glucose monitoring (if applicable) Assess for concerns re: insurance coverage, cost, barriers to compliance Hypoglycemia and Hyperglycemia * Signs and symptoms? * Causes?? * Treatment? * Preventing hypoglycemia? * When to seek medical attention * Blood glucose targets and how you feel when your blood glucose is in and out of your target ranges. * Monitoring and knowing your A1C. * What can make blood glucose go up and down and preventing high and low blood glucose. * Review of blood sugar targets in expected goal range and outside of expected goal range. * Problem solving and preventing hyper/hypoglycemia. ?Patient was receptive to information provided and participated in the discussion. Asked?appropriate questions and demonstrated good understanding of the topics discussed.? ? Patient Response to instructions: Comprehension of Instructions: fair Readiness to make changes:? pre-contemplation How confident they feel about making changes:poor Patient Instructions: Patient will follow-up with breastfeeding educator in 6 weeks Coding Level of Care Code Est Pt Level 1 (91705) Diagnoses Diabetes E11.9
== END 2023-04-12 11:25 | disposition home or self-care (01) ==
PROVIDERS: PCP Registered Nurse; Visit Provider Registered Nurse Diabetes Educator
DX: E11.9 Type 2 diabetes mellitus without complications (principal)

== ENCOUNTER → 2023-04-12 10:49 | Outpatient (BNVA) | payer MEDICAID, SELFPAY | PROVIDERS: PCP Registered Nurse; Visit Provider Registered Nurse Diabetes Educator | DX: E11.9 Type 2 diabetes mellitus without complications (principal) | CPT/HCPCS: 99211 ==

== ENCOUNTER 2023-05-12 14:50 | Outpatient (REF) | payer MEDICAID, SELFPAY ==
--- NOTE | 2023-05-12 15:48 | MHC.AU.HA2 ---
Hearing Instrument Fitting- Adult- Binaural Date of Visit: 05/12/23 Hearing Instruments Dispensed: Right Ear: Make, Model, Color, Serial Number: Bruce Ahneo [id number]-[id number] Color: Silver Bennett Animation Camera Operator Repair Warranty: 05/23/2026 Animation Camera Operator Loss and Damage Warranty: 05/23/2026 [facility] Service Plan: 05/12/2024 Battery Size: Rechargeable Hydraulic Assembler/Slim Tube: 1M Earmold/Dome/CShell/SlimTip: Acrylic Canal SlimTip SN: [id number] Mary: 07/22/2023 Type of Wax Guard: CeruShield on receiver/laborer; No wax protection on mold Left Ear: Hearing aid fit February 2022; Fit new slim tip ear mold today Make, Model, Color, Serial Number: Bruce Hurto [id number]-[id number] SN: [id number] Color: Silver Bennett Animation Camera Operator Repair Warranty: 05/17/2025 Animation Camera Operator Loss and Damage Warranty: 05/17/2025 [facility] Service Plan: 03/09/2023 Battery Size: Rechargeable Hydraulic Assembler/Slim Tube: 1M Earmold/Dome/CShell/SlimTip: Acrylic Canal SlimTip SN: [id number] Mary: 07/22/2023 Type of Wax Guard: CeruShield on receiver/laborer; No wax protection on mold Accessories/Assistive Technology: Phonak marine firer case combi SN: [id number] Summary of Fitting: Fit new right hearing aid and slim tip ear mold as well as left slim tip ear mold on current hearing aid. Programmed to initial NAL-NL2 settings. Did not have access to real ear equipment as Elle needed to stay in her electric scooter for the appointment, which did not fit in the hearing aid rooms due to space constraints. Used small pablo room for appointment. Elle was happy with overall sound quality and fit of the devices. Some difficulty inserting the hearing aids but will have 's help. Reviewed care and use including cleaning slim tip ear molds, volume control use, rechargeability, and manually turning on/off. Elle had her old marine firer from her left hearing aid, which she reports is not working. Advised to use new marine firer for both hearing aids. Due to difficulty getting to appointments, Elle opted to not schedule a follow up at this time. She will call if any issues arise. Recommendations: Patient does not feel follow-up is necessary at this time. Please call our clinic with any questions or concerns. Diagnosis Code(s): Primary Diagnosis: H90.3 Bilateral Sensorineural Hearing Loss Signature: Provider: Caden Del Angel, CCC-A
== END 2023-05-12 14:51 | disposition home or self-care (01) ==
LOC: HO.HAP 14:50
PROVIDERS: Visit Provider Registered Nurse
DX: Z46.1 Encounter for fitting and adjustment of hearing aid (principal); H90.3 Sensorineural hearing loss, bilateral
CPT/HCPCS: V5011; V5241; V5257; V5264

== ENCOUNTER 2023-05-24 10:08 | Outpatient (AMB) | payer MEDICAID, SELFPAY ==
--- NOTE | 2023-05-24 10:41 | MHC.AMDMED ---
Intake Intake Visit Reasons: 60 min Allergies metformin Allergy (Intermediate, Verified 03/30/23 11:23) Diarrhea tetracycline Allergy (Intermediate, Verified 03/30/23 11:23) hives Latex, Natural Rubber Allergy (Verified 03/30/23 11:23) Rash haloperidol [From HALDOL] Adverse Reaction (Intermediate, Verified 03/30/23 11:23) Irritable duramorph/derivative or morphi Allergy (Intermediate, Uncoded 03/30/23 11:23) hives HPI Comprehensive Diabetes Asmnt Most Recent Diabetes Results: Hemoglobin A1c 5.9 % 07/12/19 Cholesterol 156 mg/dL 10/24/22 HDL Cholesterol 44 mg/dL 10/24/22 Triglycerides 222 mg/dL 10/24/22 Creatinine 0.86 mg/dL (0.5-1.4) 10/24/22 Blood Urea Nitrogen 15 mg/dL (9-16) 10/24/22 Sodium 137 mmol/L (135-145) 10/24/22 Potassium 4.8 mmol/L (3.3-5.1) 10/24/22 Chloride 90 mmol/L (96-108) L 10/24/22 Carbon Dioxide 38 mmol/L (22-29) H 10/24/22 Calcium 10.1 mg/dL (8.4-10.2) 10/24/22 AST 12 U/L (5-31) 10/24/22 ALT 12 U/L (0-31) 10/24/22 Total Protein 7.8 g/dL (6.5-8.0) 10/24/22 Albumin 4.3 g/dL (3.5-5.0) 10/24/22 [facility] Medical History (Updated 01/09/23 @ 08:27 by Jacob Morrow MD) COPD (chronic obstructive pulmonary disease) Hypothyroidism Multinodular thyroid HLD (hyperlipidemia) T2DM (type 2 diabetes mellitus) Pneumonitis Chronic respiratory failure Pulmonary nodules Pneumonia Acute and chronic respiratory failure with hypoxia MORGAN on CPAP Morbid (severe) obesity due to excess calories Chronic restrictive lung disease Obesity due to excess calories DM2 (diabetes mellitus, type 2) HLD (hyperlipidemia) Diabetes Goiter Vitamin D deficiency Hypothyroidism Fibula fracture Hx of fracture of patella Back pain GERD (gastroesophageal reflux disease) Hepatitis History of posttraumatic stress disorder (PTSD) Depression Myocardial infarction AAA (abdominal aortic aneurysm) without rupture Morbid obesity Hernia Umbilical hernia PTSD (post-traumatic stress disorder) ADHD Schizo affective schizophrenia Arthritis Migraine Diabetes HTN (hypertension) Gallstone Aortic aneurysm Sleep apnea Asthma Surgical History Hx of knee surgery Hx of tubal ligation History of incision and drainage Tubal ligation status Family History Father Unknown family medical history Mother Unknown family medical history Sister Ovarian cancer Son No problems noted. Son Depression Son Asthma Bipolar 1 disorder ADHD Daughter No problems noted. Daughter Unknown family medical history Daughter Unknown family medical history Daughter No problems noted. Social History Household Members: None Housing: Apartment Are you a primary care partner to a significant other at home: No Do you presently have visiting nurse or other home services: No Unable to assess alcohol history related to: Unable to respond Alcohol intake: never Patient Tobacco Use Status: Never used Tobacco Tobacco use type: Cigarette Cigarette Packs Per Day: 6 Years Smoked: 35 e-Cigarette/Vaping Use: Currently Using Substance Use Type: Marijuana Advance Directives Date on File: 09/13/21 service: No Current occupational status: unemployed Assessment & Plan Assessment & Plan (1) Diabetes: Comment: new dx 11/2019-glucose usually [id number] being adjusted-currently taking glimiperide and lantus Code(s): E11.9 - Type 2 diabetes mellitus without complications Plan: Personal Continuous Glucose Monitor: Patients CGM information reviewed Reviewed patient's sensor data: Hypoglycemia: ?1% Hyperglycemia:? 3% Time in Range:? 96% Average glucose for the last 2 weeks? 130 mg/dL Patient started on Mounjaro 2.5mg approximately 3 weeks ago Patient's glucose is significantly improved. Patient reports reduction in appetite. Patient has had several postprandial hypoglycemic events Reviewed with patient how to treat hypoglycemia with rule of 15s Recommended to patient she reduce Humalog 40 units before meals, to Humalog 30 units before meals In addition discussed with Dr. Brennan increasing Mounjaro 2 5 mg weekly Reviewed how to interpret trend arrows Reminded patient that to check finger sticks if symptoms do not match sensor reading. Discussed lag time between finger stick and sensor data.? Patient able to insert sensor independently at home without issue.? Medications: New tirzepatide (Mounjaro) 5 mg (0.5 mL) subcut QWEEK 2 mL 6RF Changed From insulin lispro (Humalog KwikPen (U-100) Insulin) 40 units (0.4 mL) subcut TIDWMEAL 30 days 36 mL 11RF E11.9 - Type 2 diabetes mellitus without complications To insulin lispro (Humalog KwikPen (U-100) Insulin) 30 units (0.3 mL) subcut TIDWMEAL 30 days 27 mL 11RF E11.9 - Type 2 diabetes mellitus without complications Discontinued tirzepatide (Mounjaro) Discontinued Reason: Doctor's Order 2.5 mg (0.5 mL) subcut QWEEK 4 weeks 2 mL 0RF Patient Instructions: Patient will follow-up with Diabetes Education nurse in 5 weeks Patient will contact Diabetes Education nurse if hypoglycemia continues Coding Level of Care Code Est Pt Level 1 (88919) Diagnoses Diabetes E11.9
== END 2023-05-24 10:55 | disposition home or self-care (01) ==
PROVIDERS: PCP Registered Nurse; Visit Provider Registered Nurse Diabetes Educator
DX: E11.9 Type 2 diabetes mellitus without complications (principal)

== ENCOUNTER → 2023-05-24 10:08 | Outpatient (BNVA) | payer MEDICAID, SELFPAY | PROVIDERS: PCP Registered Nurse; Visit Provider Registered Nurse Diabetes Educator | DX: E11.9 Type 2 diabetes mellitus without complications (principal) | CPT/HCPCS: 99211 ==

== ENCOUNTER 2023-05-24 10:56 | Outpatient (REF) | payer MEDICAID, SELFPAY ==
[2023-05-24 14:10] LABS: Free T4 (Free Thyroxine) < 0.42 ng/dL (0.71-1.85); Thyroid Stimulating Hormone 47.05 uIU/mL (0.32-4.0)
== END 2023-05-24 10:57 | disposition home or self-care (01) ==
LOC: HO.10HDL 10:56
PROVIDERS: Visit Provider Internal Medicine Endocrinology, Diabetes & Metabolism
DX: E03.9 Hypothyroidism, unspecified (principal)
CPT/HCPCS: 36415; 84439; 84443

== ENCOUNTER 2023-06-05 17:13 | Emergency (ER) | payer MEDICAID, SELFPAY ==
--- NOTE | ~2023-06-05 | XR_ITS ---
EXAMINATION: XR CHEST CLINICAL INFORMATION: Shortness of breath. COMPARISON: CTA chest 09/08/2022. Chest radiograph 09/08/2022. TECHNIQUE: Frontal view of the chest was obtained. FINDINGS: Very limited examination secondary to patient body habitus and poor inspiratory effort. Bibasilar airspace opacities. No significant pleural effusion or pneumothorax. Stable prominence of the cardiomediastinal silhouette that correlates with a combination of cardiomegaly and epicardial fat pad on the prior CTA. Chronic right clavicular and right humeral fractures. XR/XR chest 1V IMPRESSION: 1. Very limited examination secondary to patient body habitus and poor inspiratory effort. 2. Bibasilar airspace opacities are nonspecific and could be related with subsegmental atelectasis, aspiration or pneumonia.
--- NOTE | 2023-06-05 17:25 | ED_ITS ---
HPI - SOB/Dyspnea General Chief Complaint: Dyspnea Stated Complaint: Diff breathing Time Seen by Provider: 06/05/23 17:24 Source: patient and EMS Mode of arrival: EMS Limitations: no limitations History of Present Illness HPI Narrative: Patient 53 years obese history of sleep apnea COPD on home oxygen 6 L at rest and 8 L on ambulation comes here for increased shortness of breath started earlier today use inhaler and nebulizer treatment was saturating 76% on 6 L when EMS arrived patient was on low 80s placed on CPAP improved to 97% after arrival patient is breathing much better on 6 L saturating 92% patient received 1 DuoNeb treatment by EMS it does have a dry cough no fever no chills no chest pain Related Data Home Medications Medication Instructions Recorded Confirmed amitriptyline 10 mg tablet 10 mg PO BEDTIME 01/10/20 09/29/22 benztropine 1 mg tablet 1 mg PO BID@1200,2100 01/10/20 09/29/22 lisinopril 10 mg tablet 10 mg PO BEDTIME 01/10/20 09/29/22 montelukast 10 mg tablet 10 mg PO BEDTIME 01/10/20 09/29/22 multivitamin 1 tab PO DAILY 01/10/20 09/29/22 thiamine HCl (vitamin B1) 100 mg 100 mg PO DAILY@1200 01/10/20 09/29/22 tablet atenolol 50 mg tablet 50 mg PO DAILY@1200 04/20/21 09/29/22 docusate sodium 100 mg capsule 100 mg PO DAILY@1200 PRN 04/20/21 09/29/22 Constipation folic acid 1 mg tablet 1 tab PO QAM 04/20/21 09/29/22 furosemide 40 mg tablet 1 tab PO DAILY 04/20/21 09/29/22 lurasidone 60 mg tablet (Latuda) 60 mg PO DAILY@0700 04/20/21 09/29/22 melatonin 5 mg tablet 10 mg PO BEDTIME PRN insomnia 04/20/21 09/29/22 prazosin 5 mg capsule 1 cap PO BEDTIME 04/20/21 09/29/22 alendronate 70 mg tablet 1 tab PO MO@0600 04/22/21 09/29/22 diclofenac sodium 1 % topical gel 2 g topical QID PRN Pain 04/22/21 09/29/22 fluticasone propionate 50 1 spray intranasal DAILY 04/22/21 09/29/22 mcg/actuation nasal spray,suspension hydroxyzine HCl 50 mg tablet 1 tab PO TID PRN Anxiety 04/22/21 09/29/22 cholecalciferol (vitamin D3) 50 50 mcg PO DAILY 07/20/21 09/29/22 mcg (2,000 unit) tablet acetaminophen 500 mg tablet 1,000 mg PO Q6H PRN Pain 09/08/21 09/29/22 albuterol sulfate 90 mcg/actuation 2 puff inhalation Q4H PRN 09/08/21 09/29/22 aerosol inhaler (ProAir HFA) Respiratory Distress lidocaine 5 % topical patch 1 patch topical DAILY 09/08/21 09/29/22 white petrolatum 1 appl topical BID PRN Dry Skin 09/08/21 09/29/22 Oxygen Home Use 03/25/22 09/29/22 nebulizers 03/25/22 09/29/22 quetiapine 25 mg tablet 100 mg PO DAILY PRN anxiety 08/18/22 09/29/22 quetiapine 400 mg tablet 600 mg PO BEDTIME 08/18/22 09/29/22 cetirizine 10 mg tablet 10 mg PO DAILY PRN allergies 09/08/22 09/29/22 divalproex 250 mg tablet,extended 750 mg PO DAILY@1200 09/08/22 09/29/22 release 24 hr divalproex 500 mg tablet,extended 1,000 mg PO BEDTIME 09/08/22 09/29/22 release 24 hr nicotine (polacrilex) 4 mg gum 4 mg PO Q2H PRN Nicotine Cravings 09/08/22 09/29/22 prazosin 1 mg capsule 1 mg PO BEDTIME 09/08/22 09/29/22 cyclobenzaprine 10 mg tablet 10 mg PO TID 01/06/23 econazole 1 % topical cream appl topical BID 03/30/23 nitrofurantoin 1 cap PO BID 03/30/23 monohydrate/macrocrystals 100 mg capsule phenazopyridine 100 mg tablet 100 mg PO TID PRN bladder muscle 03/30/23 dysfunction Previous Rx's Medication Instructions Recorded leg brace (Ankle Brace) #1 ea 01/22/20 tramadol 50 mg tablet 50 mg PO BID PRN Pain #30 tabs 07/27/21 pen needle, diabetic 32 gauge x #125 ea 04/01/22 (BD Ultra-Fine Mary Pen Needle) atorvastatin 40 mg tablet 40 mg PO DAILY 30 days #30 tabs 07/21/22 budesonide 160 mcg-glycopyr 9 2 inh inhalation BID 30 days #10.7 08/18/22 mcg-formot 4.8 mcg/actuation HFA grams inhaler (Breztri Aerosphere) insulin glargine U-300 conc 300 100 unit (0.3333 mL) subcut DAILY 11/28/22 unit/mL (3 mL) subcutaneous pen #12 mL (Toujeo Max U-300 SoloStar) blood sugar diagnostic (FreeStyle #100 ea 11/29/22 Precision Ronny Strips) azithromycin 500 mg tablet 500 mg PO DAILY 5 days #5 tabs 01/06/23 benzonatate 200 mg capsule 200 mg PO BID PRN cough 30 days 01/06/23 #60 caps fluconazole 100 mg tablet 100 mg PO DAILY 7 days #7 tabs 01/06/23 prednisone 20 mg tablet See Rx Instructions PO DAILY 10 01/06/23 days #15 tabs Tirosint 100 mcg capsule 100 mcg PO DAILY #30 caps 03/06/23 (levothyroxine) Tirosint 200 mcg capsule 200 mcg PO DAILY #30 caps 03/06/23 (levothyroxine) flash glucose sensor (FreeStyle #2 ea 04/05/23 Todd 2 Sensor kit) blood-glucose sensor (FreeStyle #2 ea 04/12/23 Todd 3 Sensor device) insulin lispro 100 unit/mL 30 unit (0.3 mL) subcut TIDWMEAL 05/24/23 subcutaneous pen (Humalog KwikPen 30 days #27 mL (U-100) Insulin) tirzepatide 5 mg/0.5 mL 5 mg (0.5 mL) subcut QWEEK #2 mL 05/24/23 subcutaneous pen injector (Bree) cefuroxime axetil 500 mg tablet 500 mg PO BID 10 days #20 tabs 06/05/23 prednisone 20 mg tablet 60 mg (3 x 20 mg) PO DAILY #15 tabs 06/05/23 Allergies Allergy/AdvReac Type Severity Reaction Status Date / Time metformin Allergy Intermediate Diarrhea Verified 03/30/23 11:23 tetracycline Allergy Intermediate hives Verified 03/30/23 11:23 Latex, Natural Rubber Allergy Rash Verified 03/30/23 11:23 haloperidol [From HALDOL] AdvReac Intermediate Irritable Verified 03/30/23 11:23 duramorph/derivative or Allergy Intermediate hives Uncoded 03/30/23 11:23 morphi Review of Systems 2 Review of Systems: Yes all other systems are reviewed and are negative [facility] Past Medical History Medical History (Updated 06/05/23 @ 20:18 by Pollo Valladares MD) COPD (chronic obstructive pulmonary disease) Hypothyroidism Multinodular thyroid HLD (hyperlipidemia) T2DM (type 2 diabetes mellitus) Pneumonitis Chronic respiratory failure Pulmonary nodules Pneumonia Acute and chronic respiratory failure with hypoxia MORGAN on CPAP Morbid (severe) obesity due to excess calories Chronic restrictive lung disease Obesity due to excess calories DM2 (diabetes mellitus, type 2) HLD (hyperlipidemia) Diabetes Goiter Vitamin D deficiency Hypothyroidism Fibula fracture Hx of fracture of patella Back pain GERD (gastroesophageal reflux disease) Hepatitis History of posttraumatic stress disorder (PTSD) Depression Myocardial infarction AAA (abdominal aortic aneurysm) without rupture Morbid obesity Hernia Umbilical hernia PTSD (post-traumatic stress disorder) ADHD Schizo affective schizophrenia Arthritis Migraine Diabetes HTN (hypertension) Gallstone Aortic aneurysm Sleep apnea Asthma Surgical History Hx of knee surgery Hx of tubal ligation History of incision and drainage Tubal ligation status Family History Family History Father Unknown family medical history Mother Unknown family medical history Sister Ovarian cancer Son No problems noted. Son Depression Son Asthma Bipolar 1 disorder ADHD Daughter No problems noted. Daughter Unknown family medical history Daughter Unknown family medical history Daughter No problems noted. Social History Social History Household Members: None Housing: Apartment Are you a primary career advisor to a significant other at home: No Do you presently have visiting nurse or other home services: No Unable to assess alcohol history related to: Unable to respond Alcohol intake: never Patient Tobacco Use Status: Never used Tobacco Tobacco use type: Cigarette Cigarette Packs Per Day: 6 Years Smoked: 35 e-Cigarette/Vaping Use: Currently Using Substance Use Type: Marijuana Advance Directives: Yes Advance Directives on File: Yes Advance Directives Date on File: 09/13/21 service: No Current occupational status: unemployed Physical Exam 2 Vital Signs: Vital Signs: Last Vital Signs Temp 98.8 F 06/05/23 20:27 Pulse 93 06/05/23 20:27 Resp 20 06/05/23 20:27 BP 128/71 06/05/23 20:27 Pulse Ox 92 06/05/23 20:27 O2 Del Method Nasal Cannula 06/05/23 20:27 O2 Flow Rate 6 06/05/23 20:27 Oxygen Flow Rate 6 06/05/23 17:58 BMI result Body Mass Index 65.7 Appearance: Alert. Oriented X3. Morbidly Obese on 6 L nasal cannula oxygen saturating 92% Eyes: PERRLA, ENT: Pharynx normal. Oral Mucosa moist Neck: Normal inspection. Neck supple. CVS: Normal heart rate and rhythm. Pulses normal. Respiratory: No respiratory distress. Equal air entry bilateral, prolonged expiration no rales Abdomen: Soft and nontender. Skin: Skin warm and dry. Normal skin color. Normal skin turgor. Extremities: No lower extremity edema. No calf tenderness Neuro: Oriented X 3. No motor deficit. Medications Administered Discontinued Medications Generic Name Dose Route Start Last Admin Trade Name Freq PRN Reason Stop Dose Admin Cefuroxime Axetil 500 mg 06/05/23 20:25 06/05/23 20:34 Cefuroxime Axetil 500 Mg Tablet PO 06/05/23 20:26 500 mg ONCE ONE Administration Albuterol Sulfate 5 mg/ 0 mg 06/05/23 18:00 06/05/23 18:03 Albuterol/Ipratropium 3 ml INHALE 06/05/23 18:01 1 each ONCE ONE Administration Dexamethasone Sodium Phosphate 10 mg 06/05/23 17:58 06/05/23 19:18 Dexamethasone Sod Phosphate 10 Mg/Ml Vial IVPUSH 06/05/23 17:59 10 mg ONCE ONE Administration Medical Decision Making Medical Decision Making [facility] Narrative: Patient morbidly obese with sleep apnea and Pickwickian syndrome came for acute shortness of breath improved after nebulizer treatment and oxygen was given Decadron will discharge patient home on prednisone advised to continue her oxygen on prednisone will give a short course of Ceftin Differential Diagnosis Differential Diagnoses: The differential diagnosis associated with the presentation includes COPD/Pickwickian syndrome/MORGAN/pneumonia/chf Admission/Observation Consideration of admission/observation: Escalation of care including admission/observation considered Lab Data MDM Lab Attestation statement: I reviewed the patient's lab results. 06/05/23 18:14 06/05/23 18:14 Labs: Lab Results 06/05/23 06/05/23 Range/Units 18:14 18:15 WBC 4.5 L (4.8-10.8) X10*3/uL RBC 3.72 L (4.20-5.50) X10*6/uL Hgb 10.3 L (12.0-16.0) g/dl Hct 32.6 L (37.0-47.0) % MCV 87.6 (80.0-98.0) fL MCH 27.7 (27.0-33.0) pg MCHC 31.6 (31.0-35.0) g/dl RDW 14.8 (11.0-16.0) % Plt Count 290 (160-400) X10*3/uL MPV 10.9 (9.4-12.3) fL Immature Gran % (Auto) 1.3 H (0.0-0.4) % Neut % (Auto) 56.2 (45-73) % Lymph % (Auto) 38.3 (20-40) % Warrick % (Auto) 3.1 (2-11) % Eos % (Auto) 0.4 (0-4) % Baso % (Auto) 0.7 (0-2) % Lymph # (Auto) 1.7 (1.2-4.9) X10*3/uL Warrick # (Auto) 0.1 (0.1-1.2) X10*3/uL Eos # (Auto) 0.0 (0.0-0.4) X10*3/uL Baso # (Auto) 0.0 (0.0-0.2) X10*3/uL Abs Immat Gran (auto) 0.06 H (0.00-0.03) X10*3/uL Absolute Neuts (auto) 2.5 (2.0-8.3) x10*3/uL Absolute Nucleated RBC 0.000 (0.0-0.012) X10*3/uL Nucleated RBC % (auto) 0.0 (0.0-0.2) /100WBC VBG pH 7.41 (7.32-7.43) VBG pCO2 73 mmHg VBG pO2 99 mmHg VBG HCO3 47 H (22-26) mmol/L VBG O2 Saturation 100.0 % VBG Base Excess 18.7 mmol/L Sodium 132 L (135-145) mmol/L Potassium 4.8 (3.3-5.1) mmol/L Chloride 78 L (96-108) mmol/L Carbon Dioxide 40 H* (22-29) mmol/L Anion Gap 19 (12-20) BUN 17 H (9-16) mg/dL Creatinine 1.20 (0.5-1.4) mg/dL Estim Creat Clear Calc 94.7 Estimated GFR 47 Random Glucose 198 H (60-115) mg/dL Calcium 10.2 (8.4-10.2) mg/dL Total Bilirubin 0.2 (0.0-1.0) mg/dL AST 31 (5-31) U/L ALT 17 (0-31) U/L Alkaline Phosphatase 40 (39-117) U/L Total Protein 7.5 (6.5-8.0) g/dL Albumin 4.3 (3.5-5.0) g/dL COVID-19 (JEFFRY) Negative (Negative) COVID-19 Clin Com See Note Independent Interpretation I performed an independent interpretation of an: Plain X-Ray Radiology Impression Discussion of test interpretation with radiology: I have reviewed the radiologist's reading. Discharge Plan Discharge Clinical Impression: Acute bronchitis with chronic obstructive pulmonary disease (COPD) Patient Disposition: Home, Self-Care Instructions: Acute Bronchitis (ED), COPD (Chronic Obstructive Pulmonary Disease) (ED) Additional Instructions: Continue nebulizer and oxygen as advised Prednisone and antibiotic as prescribed Follow-up with your lung especially Prescriptions: New prednisone 20 mg tablet 60 mg PO DAILY Qty: 15 0RF cefuroxime axetil 500 mg tablet 500 mg PO BID 10 Days Qty: 20 0RF No Action (DME) Ankle Brace Misc See Rx Instructions .ROUTE .MEDSUPPLY Qty: 1 0RF Rx Instructions: AIRSELECT, STANDARD, MEDIUM tramadol 50 mg tablet 50 mg PO BID PRN (Reason: Pain) Qty: 30 0RF (DME) pen needle, diabetic [BD Ultra-Fine Mary Pen Needle] 32 gauge x 5/32 needle See Rx Instructions .ROUTE .MEDSUPPLY Qty: 125 6RF Rx Instructions: As directed four times a day atorvastatin 40 mg tablet 40 mg PO DAILY 30 Days Qty: 30 11RF Toujeo Max U-300 SoloStar 300 unit/mL (3 mL) insulin pen 100 unit subcut DAILY Qty: 12 6RF (DME) FreeStyle Precision Ronny Strips Strip See Rx Instructions .Route Qty: 100 5RF Rx Instructions: As directed checks 4 times a day levothyroxine [Tirosint] 100 mcg capsule 100 mcg PO DAILY Qty: 30 4RF Rx Instructions: take 100 mcg and 200 mcg =300 mcg QD levothyroxine [Tirosint] 200 mcg capsule 200 mcg PO DAILY Qty: 30 5RF Rx Instructions: take 100 mcg and 200 mcg =300 mcg QD (DME) FreeStyle Todd 2 Sensor Kit See Rx Instructions .Route Qty: 2 5RF Rx Instructions: As directed change every 14 days (DME) FreeStyle Todd 3 Sensor Device See Rx Instructions .Route Qty: 2 4RF Rx Instructions: As directed change every 14 days multivitamin Tablet 1 tab PO DAILY thiamine HCl (vitamin B1) 100 mg Tablet 100 mg PO DAILY@1200 amitriptyline 10 mg Tablet 10 mg PO BEDTIME lisinopril 10 mg Tablet 10 mg PO BEDTIME benztropine 1 mg Tablet 1 mg PO BID@1200,2100 montelukast 10 mg Tablet 10 mg PO BEDTIME furosemide 40 mg tablet 1 tab PO DAILY prazosin 5 mg capsule 1 cap PO BEDTIME folic acid 1 mg tablet 1 tab PO QAM atenolol 50 mg tablet 50 mg PO DAILY@1200 melatonin 5 mg tablet 10 mg PO BEDTIME PRN (Reason: insomnia) lurasidone [Latuda] 60 mg tablet 60 mg PO DAILY@0700 Rx Instructions: WITH 350 CALORIE MEAL docusate sodium 100 mg Capsule 100 mg PO DAILY@1200 PRN (Reason: Constipation) quetiapine 400 mg tablet 600 mg PO BEDTIME Rx Instructions: 1 400MG AND 2 100 MG alendronate 70 mg tablet 1 tab PO MO@0600 hydroxyzine HCl 50 mg tablet 1 tab PO TID PRN (Reason: Anxiety) fluticasone propionate 50 mcg/actuation spray,suspension 1 spray intranasal DAILY diclofenac sodium 1 % gel 2 g topical QID PRN (Reason: Pain) Protocol: Apply to: Apply to: KNEE, ANKLE, BACK quetiapine 25 mg tablet 100 mg PO DAILY PRN (Reason: anxiety) lidocaine 5 % Adhesive Patch,Medicated 1 patch TOPICAL DAILY Protocol: Apply to: Apply to: KNEES AND BACK Rx Instructions: leave on most painful area for up to 12 hrs albuterol sulfate [ProAir HFA] 90 mcg/actuation Hfa Aerosol Inhaler 2 puff INHALATION Q4H PRN (Reason: Respiratory Distress) acetaminophen 500 mg Tablet 1,000 mg PO Q6H PRN (Reason: Pain) white petrolatum Ointment 1 appl TOPICAL BID PRN (Reason: Dry Skin) nicotine (polacrilex) 4 mg gum 4 mg PO Q2H PRN (Reason: Nicotine Cravings) prazosin 1 mg capsule 1 mg PO BEDTIME Rx Instructions: tdd 6mg divalproex 500 mg tablet extended release 24 hr 1,000 mg PO BEDTIME divalproex 250 mg tablet extended release 24 hr 750 mg PO DAILY@1200 cetirizine 10 mg tablet 10 mg PO DAILY PRN (Reason: allergies) (DME) nebulizers [facility] See Rx Instructions .Route Rx Instructions: As directed (DME) Oxygen Home Use Kit See Rx Instructions .Route Rx Instructions: As directed cholecalciferol (vitamin D3) 50 mcg (2,000 unit) tablet 50 mcg PO DAILY cyclobenzaprine 10 mg tablet 10 mg PO TID fluconazole 100 mg tablet 100 mg PO DAILY 7 Days Qty: 7 0RF benzonatate 200 mg capsule 200 mg PO BID PRN (Reason: cough) 30 Days Qty: 60 0RF azithromycin 500 mg tablet 500 mg PO DAILY 5 Days Qty: 5 0RF prednisone 20 mg tablet See Rx Instructions PO DAILY 10 Days Qty: 15 0RF Rx Instructions: PO daily; Take 2 tabs daily x 5 days, then 1 tablet daily x 5 days Breztri Aerosphere 160-9-4.8 mcg/actuation HFA aerosol inhaler 2 inh inhalation BID 30 Days Qty: 10.7 11RF nitrofurantoin monohyd/m-cryst 100 mg capsule 1 cap PO BID phenazopyridine 100 mg tablet 100 mg PO TID PRN (Reason: bladder muscle dysfunction) econazole 1 % cream topical BID insulin lispro [Humalog KwikPen Insulin] 100 unit/mL insulin pen 30 unit subcut TIDWMEAL 30 Days Qty: 27 11RF Mounjaro 5 mg/0.5 mL pen injector 5 mg subcut QWEEK Qty: 2 6RF Interventions: ED Discharge Assessment Last Done: 06/05/23 20:27 Discharge Date/Time: 06/05/23 20:37
[2023-06-05 17:58] VITALS: BP 110/80; BP 126/81; PULSE 79; PULSE 86; RESP 16; TEMP 37.1; O2SAT 93; O2SAT 97; BMI 65.7
[2023-06-05] MEDS: Albuterol Sulfate 5 MG, Albuterol/Iprat 2.5/0.5MG 3 ML 3 ML INHALE (18:03)
[2023-06-05 18:05] VITALS: PULSE 82; RESP 26; O2SAT 94
[2023-06-05 18:19] LABS: MANUAL DIFF FLAG NO
[2023-06-05 18:22] LABS: Basophils Percent Auto 0.7 % (0-2); Eosinophils Percent Auto 0.4 % (0-4); Hematocrit 32.6 % (37.0-47.0); Hemoglobin 10.3 g/dl (12.0-16.0); Imm Gran Abs Auto 0.06 X10*3/uL (0.00-0.03); Imm Gran Pct Auto 1.3 % (0.0-0.4); Lymphocytes Absolute Auto 1.7 X10*3/uL (1.2-4.9); Lymphocytes Percent Auto 38.3 % (20-40); Mean Corpuscular HGB Conc 31.6 g/dl (31.0-35.0); Mean Corpuscular Hemoglobin 27.7 pg (27.0-33.0); Mean Corpuscular Volume 87.6 fL (80.0-98.0); Mean Platelet Volume 10.9 fL (9.4-12.3); Monocytes Absolute Auto 0.1 X10*3/uL (0.1-1.2); Monocytes Percent Auto 3.1 % (2-11); Neutrophils Absolute Auto 2.5 x10*3/uL (2.0-8.3); Neutrophils Percent Auto 56.2 % (45-73); Platelet Count 290 X10*3/uL (160-400); Red Blood Count 3.72 X10*6/uL (4.20-5.50); Red Cell Distribution Width 14.8 % (11.0-16.0); White Blood Count 4.5 X10*3/uL (4.8-10.8)
[2023-06-05 18:27] LABS: VBG Base Excess 18.7 mmol/L; VBG HCO3 47 mmol/L (22-26); VBG pCO2 73 mmHg; VBG pH 7.41 (7.32-7.43); VBG pO2 99 mmHg
[2023-06-05 18:28] LABS: Venous Blood Gas Refer to POC result
[2023-06-05 18:39] LABS: COVID-19 Test Negative (Negative); IDNOW Serial# 08D9AD1C
[2023-06-05 18:47] LABS: Alanine Aminotransferase 17 U/L (0-31); Albumin Level 4.3 g/dL (3.5-5.0); Alkaline Phosphatase 40 U/L (39-117); Anion Gap 19 (12-20); Aspartate Amino Transferase 31 U/L (5-31); Bilirubin Total 0.2 mg/dL (0.0-1.0); Blood Urea Nitrogen 17 mg/dL (9-16); Calcium 10.2 mg/dL (8.4-10.2); Carbon Dioxide 40 mmol/L (22-29); Chloride 78 mmol/L (96-108); Creatinine Clr Calc Pharmacy 94.7; Estimated Glomerular Filt Rate 47; Glucose Random 198 mg/dL (60-115); Potassium 4.8 mmol/L (3.3-5.1); Sodium 132 mmol/L (135-145); Total Protein 7.5 g/dL (6.5-8.0)
[2023-06-05] MEDS: dexAMETHasone sod phosphate 10 MG/ML VIAL IVPUSH (19:18)
[2023-06-05 20:18] VITALS: BP 128/71; PULSE 93; RESP 18; O2SAT 93
[2023-06-05 20:20] VITALS: TEMP 37.1
[2023-06-05 20:27] VITALS: BP 128/71; PULSE 93; RESP 20; TEMP 37.1; O2SAT 92
[2023-06-05] MEDS: cefuroxime axetiL 500 MG TABLET PO (20:34)
== END 2023-06-05 20:37 | disposition home or self-care (01) ==
PROVIDERS: Emergency Provider Internal Medicine; PCP Registered Nurse
DX: J44.0 Chronic obstructive pulmonary disease with (acute) lower respiratory infection (principal); J20.9 Acute bronchitis, unspecified; J96.10 Chronic respiratory failure, unspecified whether with hypoxia or hypercapnia; E11.9 Type 2 diabetes mellitus without complications; I10 Essential (primary) hypertension; Z99.81 Dependence on supplemental oxygen; Z11.52 Encounter for screening for COVID-19
CPT/HCPCS: 71045; 80053; 82803; 85025; 87635; 94640; 99284; 99285; J1100

== ENCOUNTER 2023-06-12 18:23 | Outpatient (REF) | payer MEDICAID, SELFPAY ==
[2023-06-13 07:22] LABS: CT PCR NOT DETECTED (Not Detect.); NG PCR NOT DETECTED (Not Detect.)
[2023-06-13 11:56] LABS: BV Int Neg Control Negative (Negative); BV Int Pos Control Positive (Positive)
== END 2023-06-12 18:24 | disposition home or self-care (01) ==
LOC: HO.HHCLNP 18:23
PROVIDERS: Visit Provider Student in an Organized Health Care Education/Training Program
DX: N89.8 Other specified noninflammatory disorders of vagina (principal)
CPT/HCPCS: 0353U; 87480; 87510; 87660

== ENCOUNTER 2023-07-17 16:07 | Outpatient (REF) | payer MEDICAID, SELFPAY ==
[2023-07-17 18:26] LABS: Alanine Aminotransferase 19 U/L (0-31); Albumin Level 4.8 g/dL (3.5-5.0); Alkaline Phosphatase 64 U/L (39-117); Anion Gap 26 (12-20); Aspartate Amino Transferase 28 U/L (5-31); Bilirubin Total 0.3 mg/dL (0.0-1.0); Blood Urea Nitrogen 17 mg/dL (9-16); Calcium 10.3 mg/dL (8.4-10.2); Carbon Dioxide 34 mmol/L (22-29); Chloride 76 mmol/L (96-108); Cholesterol 176 mg/dL (<200); Estimated Glomerular Filt Rate 43; Glucose Random 132 mg/dL (60-115); HDL Cholesterol 65 mg/dL (>40); LDL Cholesterol Calculated 77 mg/dL (<100); Potassium 5.7 mmol/L (3.3-5.1); Sodium 130 mmol/L (135-145); Total Protein 8.5 g/dL (6.5-8.0); Triglycerides 171 mg/dL (<150)
== END 2023-07-17 16:08 | disposition home or self-care (01) ==
LOC: HO.HHCL 16:07
PROVIDERS: Visit Provider General Practice
DX: E11.69 Type 2 diabetes mellitus with other specified complication (principal); Z79.4 Long term (current) use of insulin
CPT/HCPCS: 36415; 80053; 80061

== ENCOUNTER 2023-07-17 16:53 | Emergency (ER) | payer MEDICAID, SELFPAY ==
--- NOTE | ~2023-07-17 | XR_ITS ---
EXAMINATION: XR HAND/WRIST, RIGHT CLINICAL INFORMATION: Right ring finger pain. COMPARISON: No similar priors TECHNIQUE: Four views of the right hand and wrist. FINDINGS: No fracture or subluxation. Mild multifocal degenerative osteoarthritis. Nonspecific diffuse soft tissue thickening. No unexpected radiopaque foreign bodies. XR/XR hand wrist RT IMPRESSION: 1. No acute fracture or malalignment. 2. Mild multifocal degenerative osteoarthritis. 3. Nonspecific diffuse soft tissue thickening.
[2023-07-17 17:11] VITALS: BP 93/45; PULSE 84; RESP 24; TEMP 36.8; O2SAT 87
[2023-07-17 17:15] VITALS: BP 122/64; BP 95/45; PULSE 100; O2SAT 98
[2023-07-17 17:16] VITALS: BP 93/45; PULSE 84; RESP 24; TEMP 36.8; O2SAT 87; BMI 41.9
--- NOTE | 2023-07-17 17:24 | ED.GENADULT ---
HPI - General Adult General Chief complaint: Fall Stated complaint: FALL OUT OF WHEELCHAIR Time Seen by Provider: 07/17/23 17:24 Source: patient, EMS and RN notes reviewed Mode of arrival: EMS Limitations: no limitations History of Present Illness HPI narrative: Patient is a 53-year-old female with history of morbid obesity, COPD on chronic oxygen via nasal cannula, hypothyroidism, T2 DM, chronic respiratory failure, PA x3, depression, PTSD, ADHD, schizoaffective schizophrenia, asthma, migraines presenting to the emergency department with complaint of pain to right 4th and 5th fingers since prior to arrival. Patient states that she was leaving her primary care office after an appointment and was on her scooter. She states that she asked someone to help open the door but the door began to close wall she was going through the doorway on her scooter and it pushed her onto the ground. Due to her obesity, patient was unable to get herself back up to a standing position and onto her scooter. EMS was called and an airbag was used to lift patient off the ground. She denies head strike or loss of consciousness. Denies neck or back pain. States only complaint is pain to right 4th and 5th fingers. MD complaint: finger pain Onset (ago): hour(s) Severity: mild Quality: aching Associated symptoms: denies other symptoms Treatments prior to arrival: none Related Data Home Medications ?Medication ?Instructions ?Recorded ?Confirmed amitriptyline 10 mg tablet 10 mg PO BEDTIME 01/10/20 09/29/22 benztropine 1 mg tablet 1 mg PO BID@1200,2100 01/10/20 09/29/22 lisinopril 10 mg tablet 10 mg PO BEDTIME 01/10/20 09/29/22 montelukast 10 mg tablet 10 mg PO BEDTIME 01/10/20 09/29/22 multivitamin 1 tab PO DAILY 01/10/20 09/29/22 thiamine HCl (vitamin B1) 100 mg 100 mg PO DAILY@1200 01/10/20 09/29/22 tablet atenolol 50 mg tablet 50 mg PO DAILY@1200 04/20/21 09/29/22 docusate sodium 100 mg capsule 100 mg PO DAILY@1200 PRN 04/20/21 09/29/22 Constipation folic acid 1 mg tablet 1 tab PO QAM 04/20/21 09/29/22 furosemide 40 mg tablet 1 tab PO DAILY 04/20/21 09/29/22 lurasidone 60 mg tablet (Latuda) 60 mg PO DAILY@0700 04/20/21 09/29/22 melatonin 5 mg tablet 10 mg PO BEDTIME PRN insomnia 04/20/21 09/29/22 prazosin 5 mg capsule 1 cap PO BEDTIME 04/20/21 09/29/22 alendronate 70 mg tablet 1 tab PO MO@0600 04/22/21 09/29/22 diclofenac sodium 1 % topical gel 2 g topical QID PRN Pain 04/22/21 09/29/22 fluticasone propionate 50 1 spray intranasal DAILY 04/22/21 09/29/22 mcg/actuation nasal spray,suspension hydroxyzine HCl 50 mg tablet 1 tab PO TID PRN Anxiety 04/22/21 09/29/22 cholecalciferol (vitamin D3) 50 50 mcg PO DAILY 07/20/21 09/29/22 mcg (2,000 unit) tablet acetaminophen 500 mg tablet 1,000 mg PO Q6H PRN Pain 09/08/21 09/29/22 albuterol sulfate 90 mcg/actuation 2 puff inhalation Q4H PRN 09/08/21 09/29/22 aerosol inhaler (ProAir HFA) Respiratory Distress lidocaine 5 % topical patch 1 patch topical DAILY 09/08/21 09/29/22 white petrolatum 1 appl topical BID PRN Dry Skin 09/08/21 09/29/22 Oxygen Home Use 03/25/22 09/29/22 nebulizers 03/25/22 09/29/22 quetiapine 25 mg tablet 100 mg PO DAILY PRN anxiety 08/18/22 09/29/22 quetiapine 400 mg tablet 600 mg PO BEDTIME 08/18/22 09/29/22 cetirizine 10 mg tablet 10 mg PO DAILY PRN allergies 09/08/22 09/29/22 divalproex 250 mg tablet,extended 750 mg PO DAILY@1200 09/08/22 09/29/22 release 24 hr divalproex 500 mg tablet,extended 1,000 mg PO BEDTIME 09/08/22 09/29/22 release 24 hr nicotine (polacrilex) 4 mg gum 4 mg PO Q2H PRN Nicotine Cravings 09/08/22 09/29/22 prazosin 1 mg capsule 1 mg PO BEDTIME 09/08/22 09/29/22 cyclobenzaprine 10 mg tablet 10 mg PO TID 01/06/23 econazole 1 % topical cream appl topical BID 03/30/23 nitrofurantoin 1 cap PO BID 03/30/23 monohydrate/macrocrystals 100 mg capsule phenazopyridine 100 mg tablet 100 mg PO TID PRN bladder muscle 03/30/23 dysfunction Previous Rx's ?Medication ?Instructions ?Recorded leg brace (Ankle Brace) #1 ea 01/22/20 tramadol 50 mg tablet 50 mg PO BID PRN Pain #30 tabs 07/27/21 pen needle, diabetic 32 gauge x #125 ea 04/01/22 (BD Ultra-Fine Mary Pen Needle) budesonide 160 mcg-glycopyr 9 2 inh inhalation BID 30 days #10.7 08/18/22 mcg-formot 4.8 mcg/actuation HFA grams inhaler (Breztri Aerosphere) insulin glargine U-300 conc 300 100 unit (0.3333 mL) subcut DAILY 11/28/22 unit/mL (3 mL) subcutaneous pen #12 mL (Toujeo Max U-300 SoloStar) blood sugar diagnostic (FreeStyle #100 ea 11/29/22 Precision Ronny Strips) azithromycin 500 mg tablet 500 mg PO DAILY 5 days #5 tabs 01/06/23 benzonatate 200 mg capsule 200 mg PO BID PRN cough 30 days 01/06/23 #60 caps fluconazole 100 mg tablet 100 mg PO DAILY 7 days #7 tabs 01/06/23 prednisone 20 mg tablet See Rx Instructions PO DAILY 10 01/06/23 days #15 tabs Tirosint 200 mcg capsule 200 mcg PO DAILY #30 caps 03/06/23 (levothyroxine) flash glucose sensor (FreeStyle #2 ea 04/05/23 Todd 2 Sensor kit) blood-glucose sensor (FreeStyle #2 ea 04/12/23 Todd 3 Sensor device) insulin lispro 100 unit/mL 30 unit (0.3 mL) subcut TIDWMEAL 05/24/23 subcutaneous pen (Humalog KwikPen 30 days #27 mL (U-100) Insulin) tirzepatide 5 mg/0.5 mL 5 mg (0.5 mL) subcut QWEEK #2 mL 05/24/23 subcutaneous pen injector (Bree) cefuroxime axetil 500 mg tablet 500 mg PO BID 10 days #20 tabs 06/05/23 prednisone 20 mg tablet 60 mg (3 x 20 mg) PO DAILY #15 tabs 06/05/23 Tirosint 100 mcg capsule 100 mcg PO DAILY #30 caps 06/21/23 (levothyroxine) atorvastatin 40 mg tablet 40 mg PO QAM #90 tabs 06/26/23 Allergies Allergy/AdvReac Type Severity Reaction Status Date / Time metformin Allergy Intermediate Diarrhea Verified 07/17/23 17:18 tetracycline Allergy Intermediate hives Verified 07/17/23 17:18 Latex, Natural Rubber Allergy Rash Verified 07/17/23 17:18 haloperidol [From HALDOL] AdvReac Intermediate Irritable Verified 07/17/23 17:18 Review of Systems Review of Systems: As per HPI. Yes all other systems are reviewed and are negative PMFSH Past Medical History Medical History (Updated 07/17/23 @ 18:27 by Oralia Guzman NP) COPD (chronic obstructive pulmonary disease) Hypothyroidism Multinodular thyroid HLD (hyperlipidemia) T2DM (type 2 diabetes mellitus) Pneumonitis Chronic respiratory failure Pulmonary nodules Pneumonia Acute and chronic respiratory failure with hypoxia MORGAN on CPAP Morbid (severe) obesity due to excess calories Chronic restrictive lung disease Obesity due to excess calories DM2 (diabetes mellitus, type 2) HLD (hyperlipidemia) Diabetes Goiter Vitamin D deficiency Hypothyroidism Fibula fracture Hx of fracture of patella Back pain GERD (gastroesophageal reflux disease) Hepatitis History of posttraumatic stress disorder (PTSD) Depression Myocardial infarction AAA (abdominal aortic aneurysm) without rupture Morbid obesity Hernia Umbilical hernia PTSD (post-traumatic stress disorder) ADHD Schizo affective schizophrenia Arthritis Migraine Diabetes HTN (hypertension) Gallstone Aortic aneurysm Sleep apnea Asthma Surgical History Hx of knee surgery Hx of tubal ligation History of incision and drainage Tubal ligation status Family History Family History Father Unknown family medical history Mother Unknown family medical history Sister Ovarian cancer Son No problems noted. Son Depression Son Asthma Bipolar 1 disorder ADHD Daughter No problems noted. Daughter Unknown family medical history Daughter Unknown family medical history Daughter No problems noted. Social History Social History Household Members: None Housing: Apartment Are you a primary respiratory care practitioner to a significant other at home: No Do you presently have visiting nurse or other home services: No Unable to assess alcohol history related to: Unable to respond Alcohol intake: never Patient Tobacco Use Status: Never used Tobacco Tobacco use type: Cigarette Cigarette Packs Per Day: 6 Years Smoked: 35 Smoked in Last 30 Days: Yes e-Cigarette/Vaping Use: Currently Using Use of substances other than those prescribed or required for medical reasons: No Substance Use Type: Marijuana Advance Directives: Yes Advance Directives on File: Yes Advance Directives Date on File: 09/13/21 Do you have a plan to hurt others: No Plan Patient : No service: No Current occupational status: unemployed Physical Exam ED Vital Signs: Vital Signs - 24 hr 07/17/23 17:11 07/17/23 17:15 07/17/23 17:16 Temperature 98.3 F 98.3 F Pulse Rate 84 84 Respiratory Rate 24 H 24 H Blood Pressure 93/45 L 95/45 L 93/45 L Pulse Oximetry 87 L 87 L Oxygen Delivery Method Nasal Cannula Nasal Cannula Oxygen Flow Rate 5 BMI result Body Mass Index 41.9 Vital signs have been reviewed and appear to be correct. Blood pressure low, appears to be baseline. Heart rate normal. Respiratory rate normal. Temperature normal. Oxygen saturation low, appears to be baseline. Const General: cooperative, no acute distress, alert and awake Nutritional Appearance: obese morbidly obese Orientation/consciousness: patient oriented x3 Limitations: physical limitations [facility] Head: Yes normocephalic and Yes atraumatic Ears: hearing grossly normal bilaterally General nose exam: Normal external nose present Mouth: Normal oral and palatal mucosa present Throat: Yes posterior oropharynx normal and Yes uvula midline Eyes Pupils: Equal, round and reactive pupils present Neck Neck: Yes normal visual inspection and Yes full ROM Chest Chest palpation & inspection: normal inspection of the chest and normal palpation of entire chest wall Resp Effort & Inspection: normal respiratory effort Auscultation: diminished lung sounds diffuse Cardio Rate: regular rate Rhythm: regular rhythm Heart sounds: S1 normal heart sound present and S2 normal heart sound present Peripheral pulses: Peripheral pulses 2+ throughout GI Inspection: Yes normal to inspection Palpation (GI): Soft to palpation and nontender Auscultation: normoactive bowel sounds Back/Spine/Pelvis Cervical Spine: normal cervical lordosis, No Cervical spine tenderness and No step off deformity Thoracic/Lumbar Spine: thoracic and lumbar spine normal to inspection, No thoracic spinal tenderness, No lumbar spinal tenderness and other (ROM limited due to habitus) Skin General skin exam: elasticity normal and turgor normal Neuro General: patient oriented x3, tone normal, moves all extremities, Normal light touch and pain sensation, no focal motor deficits and CN's II-XI intact bilaterally Cranial nerves: Yes Equal, round and reactive pupils present Extrem General: Yes normal to inspection, Yes full ROM, Yes capillary refill normal and Yes normal exam except as noted Right upper extremity: Extremity exam: right hand (minor abrasion dorsal aspect over 4th PIP) Details: normal to inspection, normal capillary refill, neuromotor exam normal, neurosensory exam normal, tenderness Location: of the 4th digit Location: at the PIP joint and of the 5th digit Location: at the PIP joint and normal ROM of fingers Psych Appearance: grossly normal Mental Status: mental status grossly normal Speech and movement: Normal speech and movement present Attitude: cooperative Thought process: Normal thought process present Medical Decision Making Medical Decision Making MDM Narrative: Patient is a 53-year-old female with history of morbid obesity, COPD on chronic oxygen via nasal cannula, hypothyroidism, T2 DM, chronic respiratory failure, PA x3, depression, PTSD, ADHD, schizoaffective schizophrenia, asthma, migraines presenting to the emergency department with complaint of pain to right 4th and 5th fingers since prior to arrival. On exam patient is awake, A+Ox3, VS WNL, afebrile, normal neurological exam without focal deficits, physical exam findings as above. Given reported symptoms and physical exam findings, initial differential includes right 4th and 5th finger contusion, abrasion, strain, sprain, fracture. X-ray notable for no acute fracture R hand. My interpretation is in agreement with the radiologist's interpretation. Patient stating that her is on his way to bring her home. Feel patient is at baseline and stable for discharge home at this time. Instructed patient to follow-up with her primary care provider. Return precautions discussed at bedside. Patient verbalized understanding of and agreement with plan. Differential Diagnosis Differential Diagnoses: The differential diagnosis associated with the presentation includes As per MDM. Independent Interpretation I performed an independent interpretation of an: Plain X-Ray Interpretation: No acute fractures right-hand Radiology Impression Discussion of test interpretation with radiology: I have reviewed the radiologist's reading. Radiologist Impression: XR/XR hand wrist RT IMPRESSION: 1. No acute fracture or malalignment. 2. Mild multifocal degenerative osteoarthritis. 3. Nonspecific diffuse soft tissue thickening. External Record Review External record reviewed: Inpatient record, Office record and Outpatient record Discharge Plan Discharge Clinical Impression: Abrasion of right ring finger Patient Disposition: Home, Self-Care Instructions: Abrasion (ED) Additional Instructions: You were evaluated in the emergency department today for right hand pain after a fall. Your x-ray did not show evidence of any fractures. You do have a minor abrasion noted on exam. We recommend that you clean the area daily with soap and water and assess for signs of infection including increasing redness, swelling, drainage and to return to the emergency department if these occur. Please follow-up with your primary care provider. Return to the emergency department with any new or concerning symptoms. Prescriptions: No Action (DME) Ankle Brace Misc See Rx Instructions .ROUTE .MEDSUPPLY Qty: 1 0RF Rx Instructions: AIRSELECT, STANDARD, MEDIUM tramadol 50 mg tablet 50 mg PO BID PRN (Reason: Pain) Qty: 30 0RF (DME) pen needle, diabetic [BD Ultra-Fine Mary Pen Needle] 32 gauge x 5/32 needle See Rx Instructions .ROUTE .MEDSUPPLY Qty: 125 6RF Rx Instructions: As directed four times a day Toujeo Max U-300 SoloStar 300 unit/mL (3 mL) insulin pen 100 unit subcut DAILY Qty: 12 6RF (DME) FreeStyle Precision Ronny Strips Strip See Rx Instructions .Route Qty: 100 5RF Rx Instructions: As directed checks 4 times a day levothyroxine [Tirosint] 200 mcg capsule 200 mcg PO DAILY Qty: 30 5RF Rx Instructions: take 100 mcg and 200 mcg =300 mcg QD (DME) FreeStyle Todd 2 Sensor Kit See Rx Instructions .Route Qty: 2 5RF Rx Instructions: As directed change every 14 days (DME) FreeStyle Todd 3 Sensor Device See Rx Instructions .Route Qty: 2 4RF Rx Instructions: As directed change every 14 days levothyroxine [Tirosint] 100 mcg capsule 100 mcg PO DAILY Qty: 30 4RF Rx Instructions: take 100 mcg and 200 mcg =300 mcg QD atorvastatin 40 mg tablet 40 mg PO QAM Qty: 90 3RF multivitamin Tablet 1 tab PO DAILY thiamine HCl (vitamin B1) 100 mg Tablet 100 mg PO DAILY@1200 amitriptyline 10 mg Tablet 10 mg PO BEDTIME lisinopril 10 mg Tablet 10 mg PO BEDTIME benztropine 1 mg Tablet 1 mg PO BID@1200,2100 montelukast 10 mg Tablet 10 mg PO BEDTIME furosemide 40 mg tablet 1 tab PO DAILY prazosin 5 mg capsule 1 cap PO BEDTIME folic acid 1 mg tablet 1 tab PO QAM atenolol 50 mg tablet 50 mg PO DAILY@1200 melatonin 5 mg tablet 10 mg PO BEDTIME PRN (Reason: insomnia) lurasidone [Latuda] 60 mg tablet 60 mg PO DAILY@0700 Rx Instructions: WITH 350 CALORIE MEAL docusate sodium 100 mg Capsule 100 mg PO DAILY@1200 PRN (Reason: Constipation) quetiapine 400 mg tablet 600 mg PO BEDTIME Rx Instructions: 1 400MG AND 2 100 MG alendronate 70 mg tablet 1 tab PO MO@0600 hydroxyzine HCl 50 mg tablet 1 tab PO TID PRN (Reason: Anxiety) fluticasone propionate 50 mcg/actuation spray,suspension 1 spray intranasal DAILY diclofenac sodium 1 % gel 2 g topical QID PRN (Reason: Pain) Protocol: Apply to: Apply to: KNEE, ANKLE, BACK quetiapine 25 mg tablet 100 mg PO DAILY PRN (Reason: anxiety) lidocaine 5 % Adhesive Patch,Medicated 1 patch TOPICAL DAILY Protocol: Apply to: Apply to: KNEES AND BACK Rx Instructions: leave on most painful area for up to 12 hrs albuterol sulfate [ProAir HFA] 90 mcg/actuation Hfa Aerosol Inhaler 2 puff INHALATION Q4H PRN (Reason: Respiratory Distress) acetaminophen 500 mg Tablet 1,000 mg PO Q6H PRN (Reason: Pain) white petrolatum Ointment 1 appl TOPICAL BID PRN (Reason: Dry Skin) prednisone 20 mg tablet 60 mg PO DAILY Qty: 15 0RF cefuroxime axetil 500 mg tablet 500 mg PO BID 10 Days Qty: 20 0RF nicotine (polacrilex) 4 mg gum 4 mg PO Q2H PRN (Reason: Nicotine Cravings) prazosin 1 mg capsule 1 mg PO BEDTIME Rx Instructions: tdd 6mg divalproex 500 mg tablet extended release 24 hr 1,000 mg PO BEDTIME divalproex 250 mg tablet extended release 24 hr 750 mg PO DAILY@1200 cetirizine 10 mg tablet 10 mg PO DAILY PRN (Reason: allergies) (DME) nebulizers Misc See Rx Instructions .Route Rx Instructions: As directed (DME) Oxygen Home Use Kit See Rx Instructions .Route Rx Instructions: As directed cholecalciferol (vitamin D3) 50 mcg (2,000 unit) tablet 50 mcg PO DAILY cyclobenzaprine 10 mg tablet 10 mg PO TID fluconazole 100 mg tablet 100 mg PO DAILY 7 Days Qty: 7 0RF benzonatate 200 mg capsule 200 mg PO BID PRN (Reason: cough) 30 Days Qty: 60 0RF azithromycin 500 mg tablet 500 mg PO DAILY 5 Days Qty: 5 0RF prednisone 20 mg tablet See Rx Instructions PO DAILY 10 Days Qty: 15 0RF Rx Instructions: PO daily; Take 2 tabs daily x 5 days, then 1 tablet daily x 5 days Breztri Aerosphere 160-9-4.8 mcg/actuation HFA aerosol inhaler 2 inh inhalation BID 30 Days Qty: 10.7 11RF nitrofurantoin monohyd/m-cryst 100 mg capsule 1 cap PO BID phenazopyridine 100 mg tablet 100 mg PO TID PRN (Reason: bladder muscle dysfunction) econazole 1 % cream topical BID insulin lispro [Humalog KwikPen Insulin] 100 unit/mL insulin pen 30 unit subcut TIDWMEAL 30 Days Qty: 27 11RF Mounjaro 5 mg/0.5 mL pen injector 5 mg subcut QWEEK Qty: 2 6RF Print Language: Setswana
[2023-07-17 18:27] LABS: Glucose, Whole Blood 94 mg/dL (60-115)
[2023-07-17 19:24] VITALS: BP 111/69; PULSE 102; RESP 20; TEMP 37; O2SAT 90
[2023-07-17 19:25] VITALS: BP 111/69; PULSE 102; RESP 20; TEMP 37; O2SAT 90
== END 2023-07-17 19:27 | disposition home or self-care (01) ==
PROVIDERS: Emergency Provider Emergency Medicine
DX: S60.414A Abrasion of right ring finger, initial encounter (principal); M79.601 Pain in right arm; M79.641 Pain in right hand; W05.0XXA Fall from non-moving wheelchair, initial encounter; Y93.9 Activity, unspecified; Y92.9 Unspecified place or not applicable; Y99.8 Other external cause status
CPT/HCPCS: 73110; 73130; 82947; 99283; 99284

== ENCOUNTER 2023-07-19 12:15 | Outpatient (REF) | payer MEDICAID, SELFPAY ==
[2023-07-19 13:38] LABS: Free T4 (Free Thyroxine) 0.51 ng/dL (0.71-1.85); Thyroid Stimulating Hormone 38.18 uIU/mL (0.32-4.0)
[2023-07-20 08:35] LABS: HIV AB/AG Nonreactive (Nonreactive); HIV Num 1 0.05 S/CO (0.00-0.99); ~HepC Num1 0.14 S/CO (0.00-0.79); ~Hepatitis C Antibody Nonreactive (Nonreactive)
== END 2023-07-19 12:16 | disposition home or self-care (01) ==
LOC: HO.10HDL 12:15
PROVIDERS: General Practice; Visit Provider Internal Medicine Endocrinology, Diabetes & Metabolism
DX: Z00.00 Encounter for general adult medical examination without abnormal findings (principal); E03.9 Hypothyroidism, unspecified; E04.2 Nontoxic multinodular goiter; E11.9 Type 2 diabetes mellitus without complications; Z79.4 Long term (current) use of insulin
CPT/HCPCS: 36415; 84439; 84443; 86803; 87389; 99211

== ENCOUNTER 2023-07-19 12:37 | Outpatient (AMB) | payer MEDICAID, SELFPAY ==
--- NOTE | 2023-07-19 12:52 | A.OFFVIS_ITS ---
Intake Intake Visit Reasons: DM 60 min/ Allergies metformin Allergy (Intermediate, Verified 07/17/23 17:18) Diarrhea tetracycline Allergy (Intermediate, Verified 07/17/23 17:18) hives Latex, Natural Rubber Allergy (Verified 07/17/23 17:18) Rash haloperidol [From HALDOL] Adverse Reaction (Intermediate, Verified 07/17/23 17:18) Irritable HPI Comprehensive Diabetes Asmnt Most Recent Diabetes Results: Hemoglobin A1c 5.9 % 07/12/19 Cholesterol 176 mg/dL (<200) 07/17/23 HDL Cholesterol 65 mg/dL (>40) 07/17/23 Triglycerides 171 mg/dL (<150) H 07/17/23 Creatinine 1.29 mg/dL (0.5-1.4) 07/17/23 Blood Urea Nitrogen 17 mg/dL (9-16) H 07/17/23 Sodium 130 mmol/L (135-145) L 07/17/23 Potassium 5.7 mmol/L (3.3-5.1) H 07/17/23 Chloride 76 mmol/L (96-108) L 07/17/23 Carbon Dioxide 34 mmol/L (22-29) H 07/17/23 Calcium 10.3 mg/dL (8.4-10.2) H 07/17/23 AST 28 U/L (5-31) 07/17/23 ALT 19 U/L (0-31) 07/17/23 Total Protein 8.5 g/dL (6.5-8.0) H 07/17/23 Albumin 4.8 g/dL (3.5-5.0) 07/17/23 [facility] Medical History (Updated 07/18/23 @ 00:01 by Background Lizbeth) COPD (chronic obstructive pulmonary disease) Hypothyroidism Multinodular thyroid HLD (hyperlipidemia) T2DM (type 2 diabetes mellitus) Pneumonitis Chronic respiratory failure Pulmonary nodules Pneumonia Acute and chronic respiratory failure with hypoxia MORGAN on CPAP Morbid (severe) obesity due to excess calories Chronic restrictive lung disease Obesity due to excess calories DM2 (diabetes mellitus, type 2) HLD (hyperlipidemia) Diabetes Goiter Vitamin D deficiency Hypothyroidism Fibula fracture Hx of fracture of patella Back pain GERD (gastroesophageal reflux disease) Hepatitis History of posttraumatic stress disorder (PTSD) Depression Myocardial infarction AAA (abdominal aortic aneurysm) without rupture Morbid obesity Hernia Umbilical hernia PTSD (post-traumatic stress disorder) ADHD Schizo affective schizophrenia Arthritis Migraine Diabetes HTN (hypertension) Gallstone Aortic aneurysm Sleep apnea Asthma Surgical History Hx of knee surgery Hx of tubal ligation History of incision and drainage Tubal ligation status Family History Father Unknown family medical history Mother Unknown family medical history Sister Ovarian cancer Son No problems noted. Son Depression Son Asthma Bipolar 1 disorder ADHD Daughter No problems noted. Daughter Unknown family medical history Daughter Unknown family medical history Daughter No problems noted. Social History Household Members: None Caregiver staying overnight: No Housing: Apartment Are you a primary intensive care medicine specialist to a significant other at home: No Do you presently have visiting nurse or other home services: No 75 years or older and lives alone: No Unable to assess alcohol history related to: Unable to respond Alcohol intake: never Patient Tobacco Use Status: Never used Tobacco Tobacco use type: Cigarette Cigarette Packs Per Day: 6 Years Smoked: 35 e-Cigarette/Vaping Use: Currently Using Substance Use Type: Marijuana Advance Directives Date on File: 09/13/21 service: No Current occupational status: unemployed Assessment & Plan Assessment & Plan (1) Diabetes: Comment: new dx 11/2019-glucose usually [id number] being adjusted-currently taking glimiperide and lantus Code(s): E11.9 - Type 2 diabetes mellitus without complications Plan: Personal Continuous Glucose Monitor: Patients CGM information reviewed Reviewed patient's sensor data: Hypoglycemia: ? 10% Hyperglycemia:? 0% Time in Range:? 90% Average glucose for the last 2 weeks?96 mg/dL Patient is taking Mounjaro 5 mg weekly Toujeo max 100 units daily Humalog 20 units before each meal Patient is having mid day hypoglycemia, instructed patient to reduce Toujeo dose from 100 units to 70 units daily. Reviewed how to treat low blood sugars with the rule of 15s, patient reports using fruit juice to treat hypoglycemia Request sent to Dr. Brennan to increase Mounjaro to 7.5 mg weekly Patient able to insert sensor independently at home without issue.? At today's visit as patient's partner to bring [employer] reader to download in 1 month for review Patient does have visit with Dr. Brennan in approximately 2 weeks Patient Instructions: Reduce Toujeo from 100 units to 70 units daily Follow-up with Dr. Brennan on 07/31/2023 In 1 month bring [employer] in for download Coding Level of Care Code Est Pt Level 1 (42102) Diagnoses Diabetes E11.9
== END 2023-07-19 12:59 | disposition home or self-care (01) ==
PROVIDERS: PCP Registered Nurse; Visit Provider Registered Nurse Diabetes Educator
DX: E11.9 Type 2 diabetes mellitus without complications (principal)

== ENCOUNTER 2023-07-19 13:16 | Emergency (ER) | payer MEDICAID, SELFPAY ==
--- NOTE | ~2023-07-19 | XR_ITS ---
EXAMINATION: XR CHEST CLINICAL INFORMATION: Shortness of breath COMPARISON: Previous chest x-ray most recent May 2023 TECHNIQUE: Frontal view of the chest was obtained. FINDINGS: The cardiac silhouette is slightly enlarged. There are increased central bronchovascular markings. Lungs are otherwise clear. No pleural effusion or pneumothorax. Degenerative changes to the spine. Old trauma or surgery to the right distal clavicle. XR/XR chest 1V IMPRESSION: Enlarged cardiac silhouette and increased central bronchovascular markings. Differential would include mild CHF and airways disease. Clinical correlation recommended.
[2023-07-19 14:04] VITALS: BP 124/96; PULSE 81; RESP 20; TEMP 35.7; O2SAT 91; BMI 65.7
--- NOTE | 2023-07-19 14:10 | ED_ITS ---
HPI - General Adult General Chief complaint: Weakness Stated complaint: Leg numbness Time Seen by Provider: 07/19/23 22:49 History of Present Illness HPI narrative: The patient is a 53-year-old woman who was at her endocrinology office today when she felt weak. She felt that she had numbness in both of her feet. She was concerned that something was wrong and she asked her spouse to bring her to the emergency department. The patient is morbidly obese. She is on 24 hour nasal oxygen at home. She wears CPAP a lot at home. The patient gets around using an electronic scooter. She says that 2 days ago she fell while riding on her electronic scooter an injured her right hand. She came to the emergency room and had a negative x-ray and was discharged. Today she went to her endocrinology office for scheduled appointment. When she was leaving she felt unwell with a sense of numbness in both of her feet. There has been a long wait in the emergency room to be seen by an emergency room physician. At this point the symptoms that brought her to the emergency room have resolved. She has no ongoing numbness in her feet. She says that she feels well except that she feels she has a missed multiple medications and this makes her feel very anxious and nervous. She has had no fever, sweats, chills. No cough or sputum. Related Data Home Medications ?Medication ?Instructions ?Recorded ?Confirmed amitriptyline 10 mg tablet 10 mg PO BEDTIME 01/10/20 09/29/22 benztropine 1 mg tablet 1 mg PO BID@1200,2100 01/10/20 09/29/22 lisinopril 10 mg tablet 10 mg PO BEDTIME 01/10/20 09/29/22 montelukast 10 mg tablet 10 mg PO BEDTIME 01/10/20 09/29/22 multivitamin 1 tab PO DAILY 01/10/20 09/29/22 thiamine HCl (vitamin B1) 100 mg 100 mg PO DAILY@1200 01/10/20 09/29/22 tablet atenolol 50 mg tablet 50 mg PO DAILY@1200 04/20/21 09/29/22 docusate sodium 100 mg capsule 100 mg PO DAILY@1200 PRN 04/20/21 09/29/22 Constipation folic acid 1 mg tablet 1 tab PO QAM 04/20/21 09/29/22 furosemide 40 mg tablet 1 tab PO DAILY 04/20/21 09/29/22 lurasidone 60 mg tablet (Latuda) 60 mg PO DAILY@0700 04/20/21 09/29/22 melatonin 5 mg tablet 10 mg PO BEDTIME PRN insomnia 04/20/21 09/29/22 prazosin 5 mg capsule 1 cap PO BEDTIME 04/20/21 09/29/22 alendronate 70 mg tablet 1 tab PO MO@0600 04/22/21 09/29/22 diclofenac sodium 1 % topical gel 2 g topical QID PRN Pain 04/22/21 09/29/22 fluticasone propionate 50 1 spray intranasal DAILY 04/22/21 09/29/22 mcg/actuation nasal spray,suspension hydroxyzine HCl 50 mg tablet 1 tab PO TID PRN Anxiety 04/22/21 09/29/22 cholecalciferol (vitamin D3) 50 50 mcg PO DAILY 07/20/21 09/29/22 mcg (2,000 unit) tablet acetaminophen 500 mg tablet 1,000 mg PO Q6H PRN Pain 09/08/21 09/29/22 albuterol sulfate 90 mcg/actuation 2 puff inhalation Q4H PRN 09/08/21 09/29/22 aerosol inhaler (ProAir HFA) Respiratory Distress lidocaine 5 % topical patch 1 patch topical DAILY 09/08/21 09/29/22 white petrolatum 1 appl topical BID PRN Dry Skin 09/08/21 09/29/22 Oxygen Home Use 03/25/22 09/29/22 nebulizers 03/25/22 09/29/22 quetiapine 25 mg tablet 100 mg PO DAILY PRN anxiety 08/18/22 09/29/22 quetiapine 400 mg tablet 600 mg PO BEDTIME 08/18/22 09/29/22 cetirizine 10 mg tablet 10 mg PO DAILY PRN allergies 09/08/22 09/29/22 divalproex 250 mg tablet,extended 750 mg PO DAILY@1200 09/08/22 09/29/22 release 24 hr divalproex 500 mg tablet,extended 1,000 mg PO BEDTIME 09/08/22 09/29/22 release 24 hr nicotine (polacrilex) 4 mg gum 4 mg PO Q2H PRN Nicotine Cravings 09/08/22 09/29/22 prazosin 1 mg capsule 1 mg PO BEDTIME 09/08/22 09/29/22 cyclobenzaprine 10 mg tablet 10 mg PO TID 01/06/23 econazole 1 % topical cream appl topical BID 03/30/23 nitrofurantoin 1 cap PO BID 03/30/23 monohydrate/macrocrystals 100 mg capsule phenazopyridine 100 mg tablet 100 mg PO TID PRN bladder muscle 03/30/23 dysfunction Previous Rx's ?Medication ?Instructions ?Recorded leg brace (Ankle Brace) #1 ea 01/22/20 tramadol 50 mg tablet 50 mg PO BID PRN Pain #30 tabs 07/27/21 pen needle, diabetic 32 gauge x #125 ea 04/01/22 (BD Ultra-Fine Mary Pen Needle) budesonide 160 mcg-glycopyr 9 2 inh inhalation BID 30 days #10.7 08/18/22 mcg-formot 4.8 mcg/actuation HFA grams inhaler (Breztri Aerosphere) insulin glargine U-300 conc 300 100 unit (0.3333 mL) subcut DAILY 11/28/22 unit/mL (3 mL) subcutaneous pen #12 mL (Toujeo Max U-300 SoloStar) blood sugar diagnostic (FreeStyle #100 ea 11/29/22 Precision Ronny Strips) azithromycin 500 mg tablet 500 mg PO DAILY 5 days #5 tabs 01/06/23 benzonatate 200 mg capsule 200 mg PO BID PRN cough 30 days 01/06/23 #60 caps fluconazole 100 mg tablet 100 mg PO DAILY 7 days #7 tabs 01/06/23 prednisone 20 mg tablet See Rx Instructions PO DAILY 10 01/06/23 days #15 tabs Tirosint 200 mcg capsule 200 mcg PO DAILY #30 caps 03/06/23 (levothyroxine) flash glucose sensor (FreeStyle #2 ea 04/05/23 Todd 2 Sensor kit) blood-glucose sensor (FreeStyle #2 ea 04/12/23 Todd 3 Sensor device) insulin lispro 100 unit/mL 30 unit (0.3 mL) subcut TIDWMEAL 05/24/23 subcutaneous pen (Humalog KwikPen 30 days #27 mL (U-100) Insulin) cefuroxime axetil 500 mg tablet 500 mg PO BID 10 days #20 tabs 06/05/23 prednisone 20 mg tablet 60 mg (3 x 20 mg) PO DAILY #15 tabs 06/05/23 Tirosint 100 mcg capsule 100 mcg PO DAILY #30 caps 06/21/23 (levothyroxine) atorvastatin 40 mg tablet 40 mg PO QAM #90 tabs 06/26/23 tirzepatide 7.5 mg/0.5 mL 7.5 mg (0.5 mL) subcut QWEEK #2 mL 07/19/23 subcutaneous pen injector (Mounjaro) Allergies Allergy/AdvReac Type Severity Reaction Status Date / Time metformin Allergy Intermediate Diarrhea Verified 07/19/23 14:08 tetracycline Allergy Intermediate hives Verified 07/19/23 14:08 Latex, Natural Rubber Allergy Rash Verified 07/19/23 14:08 haloperidol [From HALDOL] AdvReac Intermediate Irritable Verified 07/19/23 14:08 Review of Systems 2 Review of Systems: Yes all other systems are reviewed and are negative PMFSH Past Medical History Medical History (Updated 07/19/23 @ 23:09 by Matthew Steele MD) COPD (chronic obstructive pulmonary disease) Hypothyroidism Multinodular thyroid HLD (hyperlipidemia) T2DM (type 2 diabetes mellitus) Pneumonitis Chronic respiratory failure Pulmonary nodules Pneumonia Acute and chronic respiratory failure with hypoxia MORGAN on CPAP Morbid (severe) obesity due to excess calories Chronic restrictive lung disease Obesity due to excess calories DM2 (diabetes mellitus, type 2) HLD (hyperlipidemia) Diabetes Goiter Vitamin D deficiency Hypothyroidism Fibula fracture Hx of fracture of patella Back pain GERD (gastroesophageal reflux disease) Hepatitis History of posttraumatic stress disorder (PTSD) Depression Myocardial infarction AAA (abdominal aortic aneurysm) without rupture Morbid obesity Hernia Umbilical hernia PTSD (post-traumatic stress disorder) ADHD Schizo affective schizophrenia Arthritis Migraine Diabetes HTN (hypertension) Gallstone Aortic aneurysm Sleep apnea Asthma Surgical History Hx of knee surgery Hx of tubal ligation History of incision and drainage Tubal ligation status Family History Family History Father Unknown family medical history Mother Unknown family medical history Sister Ovarian cancer Son No problems noted. Son Depression Son Asthma Bipolar 1 disorder ADHD Daughter No problems noted. Daughter Unknown family medical history Daughter Unknown family medical history Daughter No problems noted. Social History Social History Household Members: None Caregiver staying overnight: No Housing: Apartment Are you a primary animal care service worker to a significant other at home: No Do you presently have visiting nurse or other home services: No 75 years or older and lives alone: No Unable to assess alcohol history related to: Unable to respond Alcohol intake: never Patient Tobacco Use Status: Never used Tobacco Tobacco use type: Cigarette Cigarette Packs Per Day: 6 Years Smoked: 35 e-Cigarette/Vaping Use: Currently Using Substance Use Type: Marijuana Advance Directives Date on File: 09/13/21 service: No Current occupational status: unemployed Physical Exam ED Vital Signs: Vital Signs - 24 hr 07/19/23 14:04 07/19/23 20:45 07/20/23 01:08 Temperature 96.2 F L 98.9 F 98.2 F Pulse Rate 81 76 76 Respiratory Rate 20 18 16 Blood Pressure 124/96 H 100/60 94/67 Pulse Oximetry 91 L 96 94 Oxygen Delivery Method Nasal Cannula Nasal Cannula Nasal Cannula Oxygen Flow Rate 4 4 BMI result Body Mass Index 65.7 Const Other: The patient is a morbidly obese 53-year-old. Her BMI is 65. She was sleeping when I entered the room. She was wearing nasal oxygen which is baseline for her. She awoke and seemed very anxious and said that I had startled her. She did not seem obviously ill. HENMT Other: Face is symmetrical. Mucous membranes moist. Airway is clear. Eyes Other: Pupils are round equal, conjunctivae clear Neck Other: The patient has a thick neck. No apparent JVD. Resp Other: No wheezes Effort & Inspection: normal respiratory effort Auscultation: clear to auscultation bilaterally Cardio Rate: regular rate Rhythm: regular rhythm Heart sounds: S1 normal heart sound present and S2 normal heart sound present GI Other: Abdomen is soft and nontender Skin Other: Skin is dry and unremarkable Neuro Other: The patient was awake and alert with an anxious affect. Face was symmetrical. Speech is clear. She is moving her extremities symmetrically. She seems to have normal sensation in the feet. Extrem Other: No pitting edema. Course Course Course Narrative: RME- 53-year-old female with past medical history significant for COPD on chronic 5 L, morbid obesity presents for evaluation of ?leg numbness. ? Patient reports feeling lightheaded with leg numbness. Denies any chest pain or shortness of breath. She reports her oxygen was low today in the 80s. Her oxygen saturation is 91% on 6 L. plan for cardiac workup Medical Decision Making Medical Decision Making MDM Narrative: The patient is a 53-year-old woman who came to the hospital after she felt somewhat dizzy and had bilateral numbness in her feet. The patient is chronically ill. While waiting to be seen her symptoms have resolved. She was very eager to go home so that she can take all of her usual medications. She was very anxious that she had missed multiple medications during a 9 hour wait in the emergency room. She felt that her leg symptoms have entirely resolved and that she was comfortable going home. This part of her workup she had an EKG that showed normal sinus rhythm at 82 beats per minute. No definite acute changes on her EKG. Her chest x-ray was read as showing an enlarged cardiac silhouette with increased central bronchovascular markings. The radiologist felt the differential included mild CHF or airways disease. I suspect that these changes are probably more related to chronic airways disease than CHF. Labs showed an unremarkable white count and differential. Her hemoglobin is 9.5, previous hemoglobin 10.3. Her metabolic panel shows chronic carbon dioxide elevation. Troponin is normal. Overall I do not think there is a significant acute process at work. I have some suspicion that there may have been some degree of hyperventilation causing bilateral numbness. Lab Data 07/19/23 14:58 07/19/23 14:58 Labs: Lab Results 07/19/23 Range/Units 14:58 WBC 7.5 (4.8-10.8) X10*3/uL RBC 3.39 L (4.20-5.50) X10*6/uL Hgb 9.5 L (12.0-16.0) g/dl Hct 30.4 L (37.0-47.0) % MCV 89.7 (80.0-98.0) fL MCH 28.0 (27.0-33.0) pg MCHC 31.3 (31.0-35.0) g/dl RDW 17.6 H (11.0-16.0) % Plt Count 199 D (160-400) X10*3/uL MPV 10.4 (9.4-12.3) fL Immature Gran % (Auto) 4.1 H (0.0-0.4) % Neut % (Auto) 57.7 (45-73) % Lymph % (Auto) 28.7 (20-40) % Charlton % (Auto) 7.1 (2-11) % Eos % (Auto) 1.7 (0-4) % Baso % (Auto) 0.7 (0-2) % Lymph # (Auto) 2.2 (1.2-4.9) X10*3/uL Charlton # (Auto) 0.5 (0.1-1.2) X10*3/uL Eos # (Auto) 0.1 (0.0-0.4) X10*3/uL Baso # (Auto) 0.1 (0.0-0.2) X10*3/uL Abs Immat Gran (auto) 0.31 H (0.00-0.03) X10*3/uL Absolute Neuts (auto) 4.3 (2.0-8.3) x10*3/uL Absolute Nucleated RBC 0.020 H (0.0-0.012) X10*3/uL Nucleated RBC % (auto) 0.3 H (0.0-0.2) /100WBC Sodium 133 L (135-145) mmol/L Potassium 4.4 D (3.3-5.1) mmol/L Chloride 79 L (96-108) mmol/L Carbon Dioxide 39 H (22-29) mmol/L Anion Gap 19 (12-20) BUN 15 (9-16) mg/dL Creatinine 1.27 (0.5-1.4) mg/dL Estim Creat Clear Calc 89.5 Estimated GFR 44 Random Glucose 125 H (60-115) mg/dL Calcium 10.2 (8.4-10.2) mg/dL Total Bilirubin 0.2 (0.0-1.0) mg/dL AST 29 (5-31) U/L ALT 20 (0-31) U/L Alkaline Phosphatase 55 (39-117) U/L Troponin I High Sens 2.8 (<3.5-17.0) ng/L B-Natriuretic Peptide 25 (<100) pg/mL Total Protein 7.7 (6.5-8.0) g/dL Albumin 4.6 (3.5-5.0) g/dL Lipase 6 L (8-78) U/L Discharge Plan Discharge Clinical Impression: Numbness and tingling of both feet Patient Disposition: Home, Self-Care Additional Instructions: Your testing in the emergency room today is not showing any acutely concerning findings. Please resume your normal medications. Please plan on following up with your regular doctor. Return to the emergency room if you feel significantly worse. Prescriptions: No Action (DME) Ankle Brace Misc See Rx Instructions .ROUTE .MEDSUPPLY Qty: 1 0RF Rx Instructions: AIRSELECT, STANDARD, MEDIUM tramadol 50 mg tablet 50 mg PO BID PRN (Reason: Pain) Qty: 30 0RF (DME) pen needle, diabetic [BD Ultra-Fine Mary Pen Needle] 32 gauge x 5/32 needle See Rx Instructions .ROUTE .MEDSUPPLY Qty: 125 6RF Rx Instructions: As directed four times a day Toujeo Max U-300 SoloStar 300 unit/mL (3 mL) insulin pen 100 unit subcut DAILY Qty: 12 6RF (DME) FreeStyle Precision Ronny Strips Strip See Rx Instructions .Route Qty: 100 5RF Rx Instructions: As directed checks 4 times a day levothyroxine [Tirosint] 200 mcg capsule 200 mcg PO DAILY Qty: 30 5RF Rx Instructions: take 100 mcg and 200 mcg =300 mcg QD (DME) FreeStyle Todd 2 Sensor Kit See Rx Instructions .Route Qty: 2 5RF Rx Instructions: As directed change every 14 days (DME) FreeStyle Todd 3 Sensor Device See Rx Instructions .Route Qty: 2 4RF Rx Instructions: As directed change every 14 days levothyroxine [Tirosint] 100 mcg capsule 100 mcg PO DAILY Qty: 30 4RF Rx Instructions: take 100 mcg and 200 mcg =300 mcg QD atorvastatin 40 mg tablet 40 mg PO QAM Qty: 90 3RF Mounjaro 7.5 mg/0.5 mL pen injector 7.5 mg subcut QWEEK Qty: 2 5RF multivitamin Tablet 1 tab PO DAILY thiamine HCl (vitamin B1) 100 mg Tablet 100 mg PO DAILY@1200 amitriptyline 10 mg Tablet 10 mg PO BEDTIME lisinopril 10 mg Tablet 10 mg PO BEDTIME benztropine 1 mg Tablet 1 mg PO BID@1200,2100 montelukast 10 mg Tablet 10 mg PO BEDTIME furosemide 40 mg tablet 1 tab PO DAILY prazosin 5 mg capsule 1 cap PO BEDTIME folic acid 1 mg tablet 1 tab PO QAM atenolol 50 mg tablet 50 mg PO DAILY@1200 melatonin 5 mg tablet 10 mg PO BEDTIME PRN (Reason: insomnia) lurasidone [Latuda] 60 mg tablet 60 mg PO DAILY@0700 Rx Instructions: WITH 350 CALORIE MEAL docusate sodium 100 mg Capsule 100 mg PO DAILY@1200 PRN (Reason: Constipation) quetiapine 400 mg tablet 600 mg PO BEDTIME Rx Instructions: 1 400MG AND 2 100 MG alendronate 70 mg tablet 1 tab PO MO@0600 hydroxyzine HCl 50 mg tablet 1 tab PO TID PRN (Reason: Anxiety) fluticasone propionate 50 mcg/actuation spray,suspension 1 spray intranasal DAILY diclofenac sodium 1 % gel 2 g topical QID PRN (Reason: Pain) Protocol: Apply to: Apply to: KNEE, ANKLE, BACK quetiapine 25 mg tablet 100 mg PO DAILY PRN (Reason: anxiety) lidocaine 5 % Adhesive Patch,Medicated 1 patch TOPICAL DAILY Protocol: Apply to: Apply to: KNEES AND BACK Rx Instructions: leave on most painful area for up to 12 hrs albuterol sulfate [ProAir HFA] 90 mcg/actuation Hfa Aerosol Inhaler 2 puff INHALATION Q4H PRN (Reason: Respiratory Distress) acetaminophen 500 mg Tablet 1,000 mg PO Q6H PRN (Reason: Pain) white petrolatum Ointment 1 appl TOPICAL BID PRN (Reason: Dry Skin) prednisone 20 mg tablet 60 mg PO DAILY Qty: 15 0RF cefuroxime axetil 500 mg tablet 500 mg PO BID 10 Days Qty: 20 0RF nicotine (polacrilex) 4 mg gum 4 mg PO Q2H PRN (Reason: Nicotine Cravings) prazosin 1 mg capsule 1 mg PO BEDTIME Rx Instructions: tdd 6mg divalproex 500 mg tablet extended release 24 hr 1,000 mg PO BEDTIME divalproex 250 mg tablet extended release 24 hr 750 mg PO DAILY@1200 cetirizine 10 mg tablet 10 mg PO DAILY PRN (Reason: allergies) (DME) nebulizers Misc See Rx Instructions .Route Rx Instructions: As directed (DME) Oxygen Home Use Kit See Rx Instructions .Route Rx Instructions: As directed cholecalciferol (vitamin D3) 50 mcg (2,000 unit) tablet 50 mcg PO DAILY cyclobenzaprine 10 mg tablet 10 mg PO TID fluconazole 100 mg tablet 100 mg PO DAILY 7 Days Qty: 7 0RF benzonatate 200 mg capsule 200 mg PO BID PRN (Reason: cough) 30 Days Qty: 60 0RF azithromycin 500 mg tablet 500 mg PO DAILY 5 Days Qty: 5 0RF prednisone 20 mg tablet See Rx Instructions PO DAILY 10 Days Qty: 15 0RF Rx Instructions: PO daily; Take 2 tabs daily x 5 days, then 1 tablet daily x 5 days Breztri Aerosphere 160-9-4.8 mcg/actuation HFA aerosol inhaler 2 inh inhalation BID 30 Days Qty: 10.7 11RF nitrofurantoin monohyd/m-cryst 100 mg capsule 1 cap PO BID phenazopyridine 100 mg tablet 100 mg PO TID PRN (Reason: bladder muscle dysfunction) econazole 1 % cream topical BID insulin lispro [Humalog KwikPen Insulin] 100 unit/mL insulin pen 30 unit subcut TIDWMEAL 30 Days Qty: 27 11RF Referrals: Toyin Pollard FNP [Primary Care Provider] - (Bilateral foot numbness, resolved) Interventions: ED Discharge Assessment Last Done: 07/20/23 01:08 Discharge Date/Time: 07/20/23 01:11 Print Language: [place]
--- NOTE | 2023-07-19 14:11 | ECG_ITS ---
Test Reason : PAIN Blood Pressure : / mmHG Vent. Rate : 082 BPM Atrial Rate : 082 BPM P-R Int : 194 ms QRS Dur : 092 ms QT Int : 378 ms P-R-T Axes : 041 -25 022 degrees QTc Int : 441 ms Normal sinus rhythm Low voltage QRS Nonspecific T wave abnormality Abnormal ECG When compared with ECG of 08-SEP-2022 18:48, Nonspecific T wave abnormality now evident in Anterior leads Referred By: Trace Gray Electronically Signed By:CHRISSY GALLARDO
[2023-07-19 15:04] LABS: MANUAL DIFF FLAG NO
[2023-07-19 15:06] LABS: Basophils Absolute Auto 0.1 X10*3/uL (0.0-0.2); Basophils Percent Auto 0.7 % (0-2); Eosinophils Absolute Auto 0.1 X10*3/uL (0.0-0.4); Eosinophils Percent Auto 1.7 % (0-4); Hematocrit 30.4 % (37.0-47.0); Hemoglobin 9.5 g/dl (12.0-16.0); Imm Gran Abs Auto 0.31 X10*3/uL (0.00-0.03); Imm Gran Pct Auto 4.1 % (0.0-0.4); Lymphocytes Absolute Auto 2.2 X10*3/uL (1.2-4.9); Lymphocytes Percent Auto 28.7 % (20-40); Mean Corpuscular HGB Conc 31.3 g/dl (31.0-35.0); Mean Corpuscular Volume 89.7 fL (80.0-98.0); Mean Platelet Volume 10.4 fL (9.4-12.3); Monocytes Absolute Auto 0.5 X10*3/uL (0.1-1.2); Monocytes Percent Auto 7.1 % (2-11); NRBC Pct Auto 0.3 /100WBC (0.0-0.2); Neutrophils Absolute Auto 4.3 x10*3/uL (2.0-8.3); Neutrophils Percent Auto 57.7 % (45-73); Platelet Count 199 X10*3/uL (160-400); Red Blood Count 3.39 X10*6/uL (4.20-5.50); Red Cell Distribution Width 17.6 % (11.0-16.0); White Blood Count 7.5 X10*3/uL (4.8-10.8)
[2023-07-19 15:30] LABS: B Type Natriuretic Peptide 25 pg/mL (<100)
[2023-07-19 15:33] LABS: Troponin-I High Sensitivity 2.8 ng/L (<3.5-17.0)
[2023-07-19 16:02] LABS: Anion Gap 19 (12-20)
[2023-07-19 16:12] LABS: Alanine Aminotransferase 20 U/L (0-31); Albumin Level 4.6 g/dL (3.5-5.0); Alkaline Phosphatase 55 U/L (39-117); Aspartate Amino Transferase 29 U/L (5-31); Bilirubin Total 0.2 mg/dL (0.0-1.0); Blood Urea Nitrogen 15 mg/dL (9-16); Calcium 10.2 mg/dL (8.4-10.2); Carbon Dioxide 39 mmol/L (22-29); Chloride 79 mmol/L (96-108); Creatinine Clr Calc Pharmacy 89.5; Estimated Glomerular Filt Rate 44; Glucose Random 125 mg/dL (60-115); Lipase 6 U/L (8-78); Potassium 4.4 mmol/L (3.3-5.1); Sodium 133 mmol/L (135-145); Total Protein 7.7 g/dL (6.5-8.0)
[2023-07-19 20:45] VITALS: BP 100/60; PULSE 76; RESP 18; TEMP 37.2; O2SAT 96
[2023-07-20 01:08] VITALS: BP 94/67; PULSE 76; RESP 16; TEMP 36.8; O2SAT 94
== END 2023-07-20 01:11 | disposition home or self-care (01) ==
PROVIDERS: Physician Assistant; Emergency Provider Emergency Medicine; PCP Registered Nurse
DX: R20.0 Anesthesia of skin (principal); R20.2 Paresthesia of skin; R53.1 Weakness; R06.02 Shortness of breath; J44.9 Chronic obstructive pulmonary disease, unspecified; J96.21 Acute and chronic respiratory failure with hypoxia; E11.9 Type 2 diabetes mellitus without complications; I10 Essential (primary) hypertension; E78.5 Hyperlipidemia, unspecified; F12.90 Cannabis use, unspecified, uncomplicated; G47.33 Obstructive sleep apnea (adult) (pediatric); E66.01 Morbid (severe) obesity due to excess calories; Z68.44 Body mass index [BMI] 60.0-69.9, adult; Z87.891 Personal history of nicotine dependence; Z99.89 Dependence on other enabling machines and devices; Z99.81 Dependence on supplemental oxygen; Z79.4 Long term (current) use of insulin; Z79.899 Other long term (current) drug therapy; Z79.02 Long term (current) use of antithrombotics/antiplatelets
CPT/HCPCS: 36415; 71045; 80053; 83690; 83880; 84484; 85025; 93005; 99283; 99284

== ENCOUNTER → 2023-07-19 14:11 | Outpatient (BNV) | payer MEDICAID, SELFPAY | PROVIDERS: PCP Registered Nurse; Visit Provider Internal Medicine | DX: R94.31 Abnormal electrocardiogram [ECG] [EKG] (principal) | CPT/HCPCS: 93010 ==

== ENCOUNTER 2023-07-29 16:41 | Emergency (ER) | payer MEDICAID, SELFPAY ==
--- NOTE | ~2023-07-29 | XR_ITS ---
EXAMINATION: XR CHEST CLINICAL INFORMATION: Cough COMPARISON: None available. TECHNIQUE: Frontal view of the chest was obtained. FINDINGS: Markedly low lung volumes accentuate the pulmonary interstitial markings and limits assessment. No confluent consolidation. No significant pleural effusion or pneumothorax. Cardiomediastinal silhouette is unchanged, given differences in lung volumes. XR/XR chest 1V IMPRESSION: Markedly low lung volumes accentuate the pulmonary interstitial markings and limits assessment. No confluent consolidation to suggest pneumonia.
[2023-07-29 16:59] VITALS: BP 122/54; BP 128/76; PULSE 77; PULSE 81; RESP 20; TEMP 36.9; O2SAT 94; O2SAT 98; BMI 96.8
--- NOTE | 2023-07-29 17:12 | ECG_ITS ---
Test Reason : PAIN Blood Pressure : / mmHG Vent. Rate : 076 BPM Atrial Rate : 076 BPM P-R Int : 232 ms QRS Dur : 090 ms QT Int : 404 ms P-R-T Axes : 066 -08 044 degrees QTc Int : 454 ms Sinus rhythm with 1st degree A-V block Low voltage QRS Borderline ECG When compared with ECG of 19-JUL-2023 14:46, UT interval has increased Referred By: Trace Gray Electronically Signed By:Doug Lua
[2023-07-29 17:31] LABS: MANUAL DIFF FLAG NO
[2023-07-29 17:33] LABS: Basophils Percent Auto 0.9 % (0-2); Eosinophils Absolute Auto 0.2 X10*3/uL (0.0-0.4); Eosinophils Percent Auto 3.6 % (0-4); Hemoglobin 9.3 g/dl (12.0-16.0); Imm Gran Abs Auto 0.06 X10*3/uL (0.00-0.03); Imm Gran Pct Auto 1.3 % (0.0-0.4); Lymphocytes Absolute Auto 1.8 X10*3/uL (1.2-4.9); Lymphocytes Percent Auto 39.7 % (20-40); Mean Corpuscular HGB Conc 33.2 g/dl (31.0-35.0); Mean Corpuscular Hemoglobin 29.1 pg (27.0-33.0); Mean Corpuscular Volume 87.5 fL (80.0-98.0); Mean Platelet Volume 10.8 fL (9.4-12.3); Monocytes Absolute Auto 0.5 X10*3/uL (0.1-1.2); Monocytes Percent Auto 11.7 % (2-11); NRBC Pct Auto 0.4 /100WBC (0.0-0.2); Neutrophils Absolute Auto 1.9 x10*3/uL (2.0-8.3); Neutrophils Percent Auto 42.8 % (45-73); Platelet Count 264 X10*3/uL (160-400); Red Cell Distribution Width 18.3 % (11.0-16.0); White Blood Count 4.5 X10*3/uL (4.8-10.8)
[2023-07-29 17:36] LABS: Venous Blood Gas Refer to POC result
[2023-07-29 17:36] LABS: VBG Base Excess 18.7 mmol/L; VBG HCO3 47 mmol/L (22-26); VBG pCO2 80 mmHg; VBG pH 7.38 (7.32-7.43); VBG pO2 52 mmHg
[2023-07-29 18:03] LABS: Alanine Aminotransferase 16 U/L (0-31); Albumin Level 4.2 g/dL (3.5-5.0); Alkaline Phosphatase 44 U/L (39-117); Anion Gap 14 (12-20); Aspartate Amino Transferase 16 U/L (5-31); Bilirubin Total 0.2 mg/dL (0.0-1.0); Blood Urea Nitrogen 14 mg/dL (9-16); Calcium 9.7 mg/dL (8.4-10.2); Carbon Dioxide 39 mmol/L (22-29); Chloride 82 mmol/L (96-108); Creatinine Clr Calc Pharmacy 176.5; Estimated Glomerular Filt Rate > 60; Glucose Random 87 mg/dL (60-115); Lipase 5 U/L (8-78); Potassium 4.6 mmol/L (3.3-5.1); Sodium 130 mmol/L (135-145)
[2023-07-29 18:07] LABS: B Type Natriuretic Peptide 59 pg/mL (<100)
[2023-07-29 18:24] LABS: Influenza A PCR NEGATIVE (Negative); Influenza B PCR NEGATIVE (Negative); Resp Syncy Virus RNA Qual PCR NEGATIVE (Negative); SARS COV2 PCR INHOUSE NEGATIVE (Negative)
[2023-07-29 19:36] VITALS: BP 106/63; PULSE 84; RESP 22; TEMP 36.9; O2SAT 97
--- NOTE | 2023-07-29 19:38 | ED_ITS ---
HPI - General Adult General Chief complaint: Anxiety Stated complaint: anxiety x3days, 6lpm o2 @baseline Time Seen by Provider: 07/29/23 16:58 Source: patient, family, EMS, RN notes reviewed and old records reviewed Mode of arrival: EMS Limitations: no limitations History of Present Illness HPI narrative: 53-year-old female with complex past medical history including COPD on 6 L via nasal cannula at baseline, CPAP at night, thyroidism, hyperlipidemia, morbid obesity, schizoaffective disorder, PTSD, coronary artery disease, hypertension, hepatitis, GERD, diabetes presents for evaluation of ?anxiety. ? Patient reports for the last 3 days she has been having difficulty sleeping. 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 not show any lorazepam or other benzos She denies any cough, shortness of breath, chest pain, abdominal pain, nausea vomiting Patient reports that she sees her psychiatrist on Monday but was unable to wait that long Related Data Home Medications ?Medication ?Instructions ?Recorded ?Confirmed amitriptyline 10 mg tablet 10 mg PO BEDTIME 01/10/20 09/29/22 benztropine 1 mg tablet 1 mg PO BID@1200,2100 01/10/20 09/29/22 lisinopril 10 mg tablet 10 mg PO BEDTIME 01/10/20 09/29/22 montelukast 10 mg tablet 10 mg PO BEDTIME 01/10/20 09/29/22 multivitamin 1 tab PO DAILY 01/10/20 09/29/22 thiamine HCl (vitamin B1) 100 mg 100 mg PO DAILY@1200 01/10/20 09/29/22 tablet atenolol 50 mg tablet 50 mg PO DAILY@1200 04/20/21 09/29/22 docusate sodium 100 mg capsule 100 mg PO DAILY@1200 PRN 04/20/21 09/29/22 Constipation folic acid 1 mg tablet 1 tab PO QAM 04/20/21 09/29/22 furosemide 40 mg tablet 1 tab PO DAILY 04/20/21 09/29/22 lurasidone 60 mg tablet (Latuda) 60 mg PO DAILY@0700 04/20/21 09/29/22 melatonin 5 mg tablet 10 mg PO BEDTIME PRN insomnia 04/20/21 09/29/22 prazosin 5 mg capsule 1 cap PO BEDTIME 04/20/21 09/29/22 alendronate 70 mg tablet 1 tab PO MO@0600 04/22/21 09/29/22 diclofenac sodium 1 % topical gel 2 g topical QID PRN Pain 04/22/21 09/29/22 fluticasone propionate 50 1 spray intranasal DAILY 04/22/21 09/29/22 mcg/actuation nasal spray,suspension hydroxyzine HCl 50 mg tablet 1 tab PO TID PRN Anxiety 04/22/21 09/29/22 cholecalciferol (vitamin D3) 50 50 mcg PO DAILY 07/20/21 09/29/22 mcg (2,000 unit) tablet acetaminophen 500 mg tablet 1,000 mg PO Q6H PRN Pain 09/08/21 09/29/22 albuterol sulfate 90 mcg/actuation 2 puff inhalation Q4H PRN 09/08/21 09/29/22 aerosol inhaler (ProAir HFA) Respiratory Distress lidocaine 5 % topical patch 1 patch topical DAILY 09/08/21 09/29/22 white petrolatum 1 appl topical BID PRN Dry Skin 09/08/21 09/29/22 Oxygen Home Use 03/25/22 09/29/22 nebulizers 03/25/22 09/29/22 quetiapine 25 mg tablet 100 mg PO DAILY PRN anxiety 08/18/22 09/29/22 quetiapine 400 mg tablet 600 mg PO BEDTIME 08/18/22 09/29/22 cetirizine 10 mg tablet 10 mg PO DAILY PRN allergies 09/08/22 09/29/22 divalproex 250 mg tablet,extended 750 mg PO DAILY@1200 09/08/22 09/29/22 release 24 hr divalproex 500 mg tablet,extended 1,000 mg PO BEDTIME 09/08/22 09/29/22 release 24 hr nicotine (polacrilex) 4 mg gum 4 mg PO Q2H PRN Nicotine Cravings 09/08/22 09/29/22 prazosin 1 mg capsule 1 mg PO BEDTIME 09/08/22 09/29/22 cyclobenzaprine 10 mg tablet 10 mg PO TID 01/06/23 econazole 1 % topical cream appl topical BID 03/30/23 nitrofurantoin 1 cap PO BID 03/30/23 monohydrate/macrocrystals 100 mg capsule phenazopyridine 100 mg tablet 100 mg PO TID PRN bladder muscle 03/30/23 dysfunction Previous Rx's ?Medication ?Instructions ?Recorded leg brace (Ankle Brace) #1 ea 01/22/20 tramadol 50 mg tablet 50 mg PO BID PRN Pain #30 tabs 07/27/21 pen needle, diabetic 32 gauge x #125 ea 04/01/22 (BD Ultra-Fine Mary Pen Needle) budesonide 160 mcg-glycopyr 9 2 inh inhalation BID 30 days #10.7 08/18/22 mcg-formot 4.8 mcg/actuation HFA grams inhaler (Breztri Aerosphere) insulin glargine U-300 conc 300 100 unit (0.3333 mL) subcut DAILY 11/28/22 unit/mL (3 mL) subcutaneous pen #12 mL (Toujeo Max U-300 SoloStar) blood sugar diagnostic (FreeStyle #100 ea 11/29/22 Precision Ronny Strips) azithromycin 500 mg tablet 500 mg PO DAILY 5 days #5 tabs 01/06/23 benzonatate 200 mg capsule 200 mg PO BID PRN cough 30 days 01/06/23 #60 caps fluconazole 100 mg tablet 100 mg PO DAILY 7 days #7 tabs 01/06/23 prednisone 20 mg tablet See Rx Instructions PO DAILY 10 01/06/23 days #15 tabs Tirosint 200 mcg capsule 200 mcg PO DAILY #30 caps 03/06/23 (levothyroxine) flash glucose sensor (FreeStyle #2 ea 04/05/23 Todd 2 Sensor kit) blood-glucose sensor (FreeStyle #2 ea 04/12/23 Todd 3 Sensor device) insulin lispro 100 unit/mL 30 unit (0.3 mL) subcut TIDWMEAL 05/24/23 subcutaneous pen (Humalog KwikPen 30 days #27 mL (U-100) Insulin) cefuroxime axetil 500 mg tablet 500 mg PO BID 10 days #20 tabs 06/05/23 prednisone 20 mg tablet 60 mg (3 x 20 mg) PO DAILY #15 tabs 06/05/23 atorvastatin 40 mg tablet 40 mg PO QAM #90 tabs 04/08/24 tirzepatide 7.5 mg/0.5 mL 7.5 mg (0.5 mL) subcut QWEEK #2 mL 07/19/23 subcutaneous pen injector (Bree) Tirosint 150 mcg capsule 150 mcg PO DAILY #30 caps 07/21/23 (levothyroxine) lorazepam 1 mg tablet (Ativan) 1 mg PO BID PRN agitation #6 tabs 07/29/23 Allergies Allergy/AdvReac Type Severity Reaction Status Date / Time metformin Allergy Intermediate Diarrhea Verified 07/29/23 17:01 tetracycline Allergy Intermediate hives Verified 07/29/23 17:01 Latex, Natural Rubber Allergy Rash Verified 07/29/23 17:01 haloperidol [From HALDOL] AdvReac Intermediate Irritable Verified 07/29/23 17:01 Review of Systems 2 Constitutional: Constitutional: Denies body ache(s), Denies chills and Denies headache(s) Eyes: Eyes: Denies blurry vision ENT: Denies headache(s) Cardiovascular: Cardiovascular: Denies chest pain and Denies dyspnea Respiratory: Respiratory: Denies cough and Denies dyspnea Gastrointestinal: Gastrointestinal: Denies abdominal pain, Denies nausea and Denies vomiting Musculoskeletal: Musculoskeletal: Denies back pain Integumentary/Breasts: Skin/Breast: Denies rash Neurologic: Denies headache(s) Psychiatric: Psychiatric: Reports abnormal sleep pattern and Reports anxiety PMFSH Past Medical History Medical History (Updated 07/29/23 @ 20:09 by Trace Gray) COPD (chronic obstructive pulmonary disease) Hypothyroidism Multinodular thyroid HLD (hyperlipidemia) T2DM (type 2 diabetes mellitus) Pneumonitis Chronic respiratory failure Pulmonary nodules Pneumonia Acute and chronic respiratory failure with hypoxia MORGAN on CPAP Morbid (severe) obesity due to excess calories Chronic restrictive lung disease Obesity due to excess calories DM2 (diabetes mellitus, type 2) HLD (hyperlipidemia) Diabetes Goiter Vitamin D deficiency Hypothyroidism Fibula fracture Hx of fracture of patella Back pain GERD (gastroesophageal reflux disease) Hepatitis History of posttraumatic stress disorder (PTSD) Depression Myocardial infarction AAA (abdominal aortic aneurysm) without rupture Morbid obesity Hernia Umbilical hernia PTSD (post-traumatic stress disorder) ADHD Schizo affective schizophrenia Arthritis Migraine Diabetes HTN (hypertension) Gallstone Aortic aneurysm Sleep apnea Asthma Surgical History Hx of knee surgery Hx of tubal ligation History of incision and drainage Tubal ligation status Family History Family History Father Unknown family medical history Mother Unknown family medical history Sister Ovarian cancer Son No problems noted. Son Depression Son Asthma Bipolar 1 disorder ADHD Daughter No problems noted. Daughter Unknown family medical history Daughter Unknown family medical history Daughter No problems noted. Social History Social History Household Members: None Housing: Apartment Are you a primary health and social care teacher to a significant other at home: No Do you presently have visiting nurse or other home services: No Unable to assess alcohol history related to: Unable to respond Alcohol intake: never Patient Tobacco Use Status: Never used Tobacco Tobacco use type: Cigarette Cigarette Packs Per Day: 6 Years Smoked: 35 Smoked in Last 30 Days: No e-Cigarette/Vaping Use: Currently Using Use of substances other than those prescribed or required for medical reasons: No Substance Use Type: Marijuana Advance Directives: Yes Advance Directives on File: Yes Advance Directives Date on File: 09/13/21 Do you have a plan to hurt others: No Plan Patient : No service: No Current occupational status: unemployed Physical Exam ED Vital Signs: Vital Signs - 24 hr 07/29/23 16:59 07/29/23 19:36 Temperature 98.4 F 98.5 F Pulse Rate 81 84 Respiratory Rate 20 22 H Blood Pressure 122/54 L 106/63 Pulse Oximetry 98 97 Oxygen Delivery Method Room Air Nasal Cannula Oxygen Flow Rate 6 BMI result Body Mass Index 96.8 Const General: healthy appearing, comfortable, no acute distress, alert and awake Nutritional Appearance: well nourished and obese morbidly obese Orientation/consciousness: patient oriented x3 HENMT Head: Yes normocephalic and Yes atraumatic Eyes Eyelids: Yes eyelids normal Conjunctivae: conjunctivae normal Sclerae: sclerae normal Corneas: corneas normal Pupils: Equal, round and reactive pupils present EOM: EOMs intact bilaterally Neck Neck: Yes full ROM Resp Other: Breath sounds diminished due to body habitus, but otherwise clear to auscultation Effort & Inspection: normal respiratory effort, able to speak in complete sentences, no audible wheezes and not labored Auscultation: clear to auscultation bilaterally Cardio Rate: regular rate Rhythm: regular rhythm GI Inspection: No distended Palpation (GI): Soft to palpation, not firm, nontender, no guarding and not rigid Skin General skin exam: elasticity normal Neuro General: patient oriented x3 Cranial nerves: Yes CN's II-XII intact bilaterally, Yes Equal, round and reactive pupils present and Yes Bilaterally intact EOM present Cognition (Neuro): normal cognition Extrem Other: Moving all extremities well without any obvious deformities Medications Administered Discontinued Medications Generic Name Dose Route Start Last Admin Trade Name Lianet PRN Reason Stop Dose Admin Lorazepam 1 mg 07/29/23 19:11 07/29/23 19:40 Lorazepam 1 Mg Tablet PO 07/29/23 19:12 1 mg ONCE ONE Administration Medical Decision Making Medical Decision Making [facility] Narrative: 3-year-old female with complex past medical history presents for evaluation of reported anxiety. She is quite comfortable on exam, her vital signs are stable. I ordered basic labs, VBG to evaluate for hypercapnia. The patient is on 6 L via nasal cannula at baseline which she is currently on. A mild anemia consistent with her recent baseline. This is normocytic. Her white count is slightly below normal at 4.5. Patient's sodium is low at 130 which is slightly below her baseline which is likely related to furosemide use. I am hesitant to treat with IV fluids given the heart failure. I discussed the patient fluid restriction is about a way to treat this. Shows bicarb of 47 and a pCO2 of 80, both consistent with her baseline. No overt signs of hypercapnia. The patient's anxiety with Ativan p.r.n. till she sees her doctor in 2 days Differential Diagnosis Differential Diagnoses: The differential diagnosis associated with the presentation includes Anxiety COPD Hypercapnia Pneumonia Bronchitis Upper respiratory infection Lab Data [facility] Lab Attestation statement: I reviewed the patient's lab results. See above 07/29/23 17:25 07/29/23 17:25 Labs: Lab Results 07/29/23 07/29/23 Range/Units 17:25 17:28 WBC 4.5 L (4.8-10.8) X10*3/uL RBC 3.20 L (4.20-5.50) X10*6/uL Hgb 9.3 L (12.0-16.0) g/dl Hct 28.0 L (37.0-47.0) % MCV 87.5 (80.0-98.0) fL MCH 29.1 (27.0-33.0) pg MCHC 33.2 (31.0-35.0) g/dl RDW 18.3 H (11.0-16.0) % Plt Count 264 D (160-400) X10*3/uL MPV 10.8 (9.4-12.3) fL Immature Gran % (Auto) 1.3 H (0.0-0.4) % Neut % (Auto) 42.8 L (45-73) % Lymph % (Auto) 39.7 (20-40) % Rankin % (Auto) 11.7 H (2-11) % Eos % (Auto) 3.6 (0-4) % Baso % (Auto) 0.9 (0-2) % Lymph # (Auto) 1.8 (1.2-4.9) X10*3/uL Rankin # (Auto) 0.5 (0.1-1.2) X10*3/uL Eos # (Auto) 0.2 (0.0-0.4) X10*3/uL Baso # (Auto) 0.0 (0.0-0.2) X10*3/uL Abs Immat Gran (auto) 0.06 H (0.00-0.03) X10*3/uL Absolute Neuts (auto) 1.9 L (2.0-8.3) x10*3/uL Absolute Nucleated RBC 0.020 H (0.0-0.012) X10*3/uL Nucleated RBC % (auto) 0.4 H (0.0-0.2) /100WBC VBG pH 7.38 (7.32-7.43) VBG pCO2 80 mmHg VBG pO2 52 mmHg VBG HCO3 47 H (22-26) mmol/L VBG O2 Saturation 83.0 % VBG Base Excess 18.7 mmol/L Sodium 130 L (135-145) mmol/L Potassium 4.6 (3.3-5.1) mmol/L Chloride 82 L (96-108) mmol/L Carbon Dioxide 39 H (22-29) mmol/L Anion Gap 14 (12-20) BUN 14 (9-16) mg/dL Creatinine 0.85 (0.5-1.4) mg/dL Estim Creat Clear Calc 176.5 Estimated GFR > 60 Random Glucose 87 (60-115) mg/dL Calcium 9.7 (8.4-10.2) mg/dL Total Bilirubin 0.2 (0.0-1.0) mg/dL AST 16 (5-31) U/L ALT 16 (0-31) U/L Alkaline Phosphatase 44 (39-117) U/L B-Natriuretic Peptide 59 (<100) pg/mL Total Protein 7.0 (6.5-8.0) g/dL Albumin 4.2 (3.5-5.0) g/dL Lipase 5 L (8-78) U/L Influenza Type A (PCR) NEGATIVE (Negative) Influenza Type B (PCR) NEGATIVE (Negative) RSV RNA Qual (PCR) NEGATIVE (Negative) SARS-CoV-2 RNA (RT-PCR) NEGATIVE (Negative) Independent Interpretation I performed an independent interpretation of an: Plain X-Ray (Poor exam quality, but otherwise VS abnormalities) Discharge Plan Discharge Clinical Impression: Anxiety Patient Disposition: Home, Self-Care Instructions: Anxiety (ED) Additional Instructions: Your workup in the ED was reassuring. This includes your blood work, viral swabs and chest x-ray. Take Ativan as needed for anxiety Follow-up with your primary doctor and return for new or worsening symptoms Prescriptions: New lorazepam [Ativan] 1 mg tablet 1 mg PO BID PRN (Reason: agitation) Qty: 6 0RF No Action (DME) Ankle Brace Misc See Rx Instructions .ROUTE .MEDSUPPLY Qty: 1 0RF Rx Instructions: AIRSELECT, STANDARD, MEDIUM tramadol 50 mg tablet 50 mg PO BID PRN (Reason: Pain) Qty: 30 0RF (DME) pen needle, diabetic [BD Ultra-Fine Mary Pen Needle] 32 gauge x 5/32 needle See Rx Instructions .ROUTE .MEDSUPPLY Qty: 125 6RF Rx Instructions: As directed four times a day Toujeo Max U-300 SoloStar 300 unit/mL (3 mL) insulin pen 100 unit subcut DAILY Qty: 12 6RF (DME) FreeStyle Precision Ronny Strips Strip See Rx Instructions .Route Qty: 100 5RF Rx Instructions: As directed checks 4 times a day levothyroxine [Tirosint] 200 mcg capsule 200 mcg PO DAILY Qty: 30 5RF Rx Instructions: take 100 mcg and 200 mcg =300 mcg QD (DME) FreeStyle Todd 2 Sensor Kit See Rx Instructions .Route Qty: 2 5RF Rx Instructions: As directed change every 14 days (DME) FreeStyle Todd 3 Sensor Device See Rx Instructions .Route Qty: 2 4RF Rx Instructions: As directed change every 14 days atorvastatin 40 mg tablet 40 mg PO QAM Qty: 90 3RF Mounjaro 7.5 mg/0.5 mL pen injector 7.5 mg subcut QWEEK Qty: 2 5RF levothyroxine [Tirosint] 150 mcg capsule 150 mcg PO DAILY Qty: 30 4RF multivitamin Tablet 1 tab PO DAILY thiamine HCl (vitamin B1) 100 mg Tablet 100 mg PO DAILY@1200 amitriptyline 10 mg Tablet 10 mg PO BEDTIME lisinopril 10 mg Tablet 10 mg PO BEDTIME benztropine 1 mg Tablet 1 mg PO BID@1200,2100 montelukast 10 mg Tablet 10 mg PO BEDTIME furosemide 40 mg tablet 1 tab PO DAILY prazosin 5 mg capsule 1 cap PO BEDTIME folic acid 1 mg tablet 1 tab PO QAM atenolol 50 mg tablet 50 mg PO DAILY@1200 melatonin 5 mg tablet 10 mg PO BEDTIME PRN (Reason: insomnia) lurasidone [Latuda] 60 mg tablet 60 mg PO DAILY@0700 Rx Instructions: WITH 350 CALORIE MEAL docusate sodium 100 mg Capsule 100 mg PO DAILY@1200 PRN (Reason: Constipation) quetiapine 400 mg tablet 600 mg PO BEDTIME Rx Instructions: 1 400MG AND 2 100 MG alendronate 70 mg tablet 1 tab PO MO@0600 hydroxyzine HCl 50 mg tablet 1 tab PO TID PRN (Reason: Anxiety) fluticasone propionate 50 mcg/actuation spray,suspension 1 spray intranasal DAILY diclofenac sodium 1 % gel 2 g topical QID PRN (Reason: Pain) Protocol: Apply to: Apply to: KNEE, ANKLE, BACK quetiapine 25 mg tablet 100 mg PO DAILY PRN (Reason: anxiety) lidocaine 5 % Adhesive Patch,Medicated 1 patch TOPICAL DAILY Protocol: Apply to: Apply to: KNEES AND BACK Rx Instructions: leave on most painful area for up to 12 hrs albuterol sulfate [ProAir HFA] 90 mcg/actuation Hfa Aerosol Inhaler 2 puff INHALATION Q4H PRN (Reason: Respiratory Distress) acetaminophen 500 mg Tablet 1,000 mg PO Q6H PRN (Reason: Pain) white petrolatum Ointment 1 appl TOPICAL BID PRN (Reason: Dry Skin) prednisone 20 mg tablet 60 mg PO DAILY Qty: 15 0RF cefuroxime axetil 500 mg tablet 500 mg PO BID 10 Days Qty: 20 0RF nicotine (polacrilex) 4 mg gum 4 mg PO Q2H PRN (Reason: Nicotine Cravings) prazosin 1 mg capsule 1 mg PO BEDTIME Rx Instructions: tdd 6mg divalproex 500 mg tablet extended release 24 hr 1,000 mg PO BEDTIME divalproex 250 mg tablet extended release 24 hr 750 mg PO DAILY@1200 cetirizine 10 mg tablet 10 mg PO DAILY PRN (Reason: allergies) (DME) nebulizers Misc See Rx Instructions .Route Rx Instructions: As directed (DME) Oxygen Home Use Kit See Rx Instructions .Route Rx Instructions: As directed cholecalciferol (vitamin D3) 50 mcg (2,000 unit) tablet 50 mcg PO DAILY cyclobenzaprine 10 mg tablet 10 mg PO TID fluconazole 100 mg tablet 100 mg PO DAILY 7 Days Qty: 7 0RF benzonatate 200 mg capsule 200 mg PO BID PRN (Reason: cough) 30 Days Qty: 60 0RF azithromycin 500 mg tablet 500 mg PO DAILY 5 Days Qty: 5 0RF prednisone 20 mg tablet See Rx Instructions PO DAILY 10 Days Qty: 15 0RF Rx Instructions: PO daily; Take 2 tabs daily x 5 days, then 1 tablet daily x 5 days Breztri Aerosphere 160-9-4.8 mcg/actuation HFA aerosol inhaler 2 inh inhalation BID 30 Days Qty: 10.7 11RF nitrofurantoin monohyd/m-cryst 100 mg capsule 1 cap PO BID phenazopyridine 100 mg tablet 100 mg PO TID PRN (Reason: bladder muscle dysfunction) econazole 1 % cream topical BID insulin lispro [Humalog KwikPen Insulin] 100 unit/mL insulin pen 30 unit subcut TIDWMEAL 30 Days Qty: 27 11RF Print Language: Setswana
--- NOTE | 2023-07-29 19:38 | MHC.EDTECH ---
This tech assumed care for this patient at 19:00. Introduced myself to the patient,Helped patient to commode and back to the bed safely. Commode has be cleaned and bag replaced, Vitals obtained. Patient is resting comfortably.
[2023-07-29] MEDS: LORazepam 1 MG TABLET PO (19:40)
--- NOTE | 2023-07-29 19:44 | PC.NURSE ---
this rn assumed care of pt, pt resting in stretcher, no acute distress noted. respirations even and unlabored. pt medicated per mar for anxiety , pt tolerated well with water.
[2023-07-29 21:01] VITALS: BP 136/94; PULSE 82; RESP 21; TEMP 36.7; O2SAT 95
--- NOTE | 2023-07-29 21:03 | PC.NURSE ---
ems at bedside to transport pt home.
[2023-07-29 21:31] VITALS: BP 136/94; PULSE 82; RESP 21; TEMP 36.7; O2SAT 95
== END 2023-07-29 21:31 | disposition home or self-care (01) ==
PROVIDERS: Physician Assistant; Emergency Provider Emergency Medicine
DX: F41.9 Anxiety disorder, unspecified (principal); E78.5 Hyperlipidemia, unspecified; I25.10 Atherosclerotic heart disease of native coronary artery without angina pectoris; I10 Essential (primary) hypertension; K21.9 Gastro-esophageal reflux disease without esophagitis; E11.9 Type 2 diabetes mellitus without complications; D64.9 Anemia, unspecified; Z03.818 Encounter for observation for suspected exposure to other biological agents ruled out
CPT/HCPCS: 0241U; 71045; 80053; 82803; 83690; 83880; 85025; 93005; 99283; 99284

== ENCOUNTER → 2023-07-29 17:12 | Outpatient (BNV) | payer MEDICAID, SELFPAY | PROVIDERS: Emergency Provider Emergency Medicine; Visit Provider Internal Medicine Cardiovascular Disease | DX: I44.0 Atrioventricular block, first degree (principal) | CPT/HCPCS: 93010 ==

== ENCOUNTER 2023-08-03 11:18 | Outpatient (REF) | payer MEDICAID, SELFPAY ==
[2023-08-03 12:53] LABS: Amphetamine Screen Urine Not Detected (Not Detect); Barbiturates, Urine Not Detected (Not Detect); Benzodiazepines Screen Urine Not Detected (Not Detect); Buprenorphine Scr Not Detected (Not Detect); Cannabinoid Screen Urine Not Detected (Not Detect); Cocaine Screen Urine Not Detected (Not Detect); Fentanyl, urine Not Detected (Not Detect); Methadone Screen, Urine Not Detected (Not Detect); Opiate Screen Urine Not Detected (Not Detect); Oxycodone Screen Urine Not Detected (Not Detect); Phencyclidine Screen Urine Not Detected (Not Detect)
== END 2023-08-03 11:19 | disposition home or self-care (01) ==
LOC: HO.HHCLNP 11:18
PROVIDERS: Visit Provider Registered Nurse
DX: G89.29 Other chronic pain (principal); F41.9 Anxiety disorder, unspecified
CPT/HCPCS: 80307

== ENCOUNTER 2023-08-22 10:44 | Outpatient (RCR) | payer MEDICAID, SELFPAY ==
--- NOTE | 2023-08-23 12:55 | MHC.PT.EP ---
[facility] [place] [facility] [place] [facility] [place] [facility] [address] Evelina Borja [address] [phone] F: [phone] F: [phone] F: [phone] F: [phone] Physical Therapy Plan of Care Date of Evaluation: 08/22/23 Date of Surgery: Diagnosis: Gait instability Assessment: MARY IS A 53 YO FEMALE WHO ARRIVES IN MOTORIZED WHEELCHAIR ACCOMPANIED BY HER . SHE HAS AN EXTREMELY COMPLEX MEDICAL HISTORY AND IS ON A EXTENSIVE MEDICATION REGIME. SHE REPORTS THAT ABOUT 2 YEARS AGO SHE FRACTURED HER RIGHT FEMUR AND THEN A FEW MONTHS LATER HER LEFT TIBIA AND ANKLE. SHE STATES THAT SINCE THEN HER MOBILITY HAS BEEN STEADILY DECLINING. HAD SOME HOME PT, UNCLEAR OF WHY THIS WAS DISCONTINUED. SHE STATES AT HOME SHE IS ABLE TO STAND FROM W/C FOR ABOUT 1-2 MINUTES AND CAN AMBULATE APROX 5 FEET WITH W/W. USING COMMODE FOR TOILETING. AND CANVASSING MANAGER ASSIST WITH ALMOST ALL CARE TASKS. DURING EVAL, Pt SLIDING OUT OF W/C REQUIRING FREQUENT REPOSITIONING, MINIMAL PARTICIPATION IN ACTIVITY, PERFORMING ALL REPOSITIONING TASKS Pt WAS UNWILLING. MARY HAS EXTREMELY POOR ACTIVITY TOLERANCE AND WOULD BENEFIT FROM HOME CARE AT THIS TIME FOR THE FOLLOWING REASONS: TRANSPORTATION TO HOSPITAL IS EXTREMELY DIFFICULT FOR FAMILY TO PROVIDE, Pt IS UNABLE TO TOLERATE EVEN MINIMAL ACTIVITY AND WILL NOT BE ABLE TO PARTICIPATE IN THE OUT PATIENT SETTING FOR 30-60 MINS OF ACTIVITY, THIS FACILITY DOES NOT HAVE BARIATRIC EQUIPMENT FOR SAFE TRANSFERS AND GAIT TRAINING. HOME THERAPY WOULD BE ABLE TO PROVIDE BETTER ASSISTANCE FOR FUNCTIONAL TRANSFERS, HOME W/C MOBILITY AND STANDING/GAIT TRAINING WITH HOME EQUIPMENT. Pt IS NOT A CANDIDATE FOR SKILLED OUTPt PT AT THIS TIME. RECOMMENDATION IS PT IN THE HOME SETTING. Electronically signed by: ERLINDA ARTIS PT DPT Please sign and return to therapist.
== END 2023-09-15 08:46 | disposition home or self-care (01) ==
LOC: HO.PT 10:44
PROVIDERS: PCP Registered Nurse; Visit Provider Registered Nurse
DX: R26.81 Unsteadiness on feet (principal); E66.01 Morbid (severe) obesity due to excess calories
CPT/HCPCS: 97163

== ENCOUNTER 2023-11-01 02:39 | Inpatient (IN) | payer MEDICAID, SELFPAY ==
[2023-11-01] VITALS (16 sets, daily range): BP systolic 49–147; BP diastolic 32–114; PULSE 67–92; RESP 8–18; TEMP 35.9–37.1; O2SAT 89–99; BMI 79.5
--- NOTE | ~2023-11-01 | XR_ITS ---
Indication: Trauma EXAMINATION: Right ankle, right tib-fib. 2 views of the right ankle are compared to previous study from 01/20/2020. Comminuted fracture of the distal metadiaphysis of the fibula. There is distraction of fracture fragments. Surrounding edema is noted. Mild angulation at the fracture apex noted. 2 views of the more proximal tib-fib demonstrates a rounded foreign body similar to previous study from 01/11/2020. There is degeneration in the right knee but no proximal fracture is seen. There is mixed sclerotic and lucent change involving the proximal tibia of uncertain etiology. Underlying bony lesion cannot be excluded. XR/XR ankle RT min 3V IMPRESSION: Comminuted fracture of the distal fibula as described. Foreign body present on previous study from 2019 in the mid calf region. Developing lucency and sclerosis of the proximal tibia of uncertain etiology. This could represent bone infarct or possibly underlying bony lesion or sequela of degenerative changes. If further evaluation is warranted recommend MR
--- NOTE | ~2023-11-01 | XR_ITS ---
EXAMINATION: XR CHEST CLINICAL INFORMATION: Shortness of breath COMPARISON: 07/29/2023 TECHNIQUE: Frontal view of the chest was obtained. FINDINGS: Very low lung volumes. Right lung is comparable to previous. Density at the right medial base may be an area of atelectasis or infiltrate. The left lung there is felt to be volume loss with probable atelectasis or infiltrate and perihilar opacity which is similar to previous. There is increasing opacity at the left apex this may be consistent with an area of atelectasis or infiltrate. There is no obvious failure. Mild increasing left lateral basilar opacities XR/XR chest 1V IMPRESSION: Low lung volumes and as described volume loss in the left lung with perihilar opacity emanating into the left lower lobe. This appears similar to previous but there is increasing density in the left upper lung consistent with increasing atelectasis or infiltrate. Continued follow-up recommended
--- NOTE | ~2023-11-01 | XR_ITS ---
Indication: Trauma EXAMINATION: Right ankle, right tib-fib. 2 views of the right ankle are compared to previous study from 01/20/2020. Comminuted fracture of the distal metadiaphysis of the fibula. There is distraction of fracture fragments. Surrounding edema is noted. Mild angulation at the fracture apex noted. 2 views of the more proximal tib-fib demonstrates a rounded foreign body similar to previous study from 01/11/2020. There is degeneration in the right knee but no proximal fracture is seen. There is mixed sclerotic and lucent change involving the proximal tibia of uncertain etiology. Underlying bony lesion cannot be excluded. XR/XR tibia fibula RT 2V IMPRESSION: Comminuted fracture of the distal fibula as described. Foreign body present on previous study from 2019 in the mid calf region. Developing lucency and sclerosis of the proximal tibia of uncertain etiology. This could represent bone infarct or possibly underlying bony lesion or sequela of degenerative changes. If further evaluation is warranted recommend MR
--- NOTE | 2023-11-01 03:20 | ED_ITS ---
HPI - General Adult General Chief complaint: Altered Mental Status Stated complaint: uti sepsis r ankle pain Time Seen by Provider: 11/01/23 03:20 History of Present Illness ED Provider: Cedric JO narrative: The patient is a 53-year-old female with morbid obesity. Apparently her boyfriend called an ambulance tonight because he felt that the patient seemed to have been exhibiting an altered mental status since yesterday. Apparently paramedics found the patient lying in urine and that there was a foul odor. The patient says that she fell the other day and injured her right ankle. The patient does not think she has had a fever. She is a poor historian. Related Data Home Medications ?Medication ?Instructions ?Recorded ?Confirmed amitriptyline 10 mg tablet 10 mg PO BEDTIME 01/10/20 09/29/22 benztropine 1 mg tablet 1 mg PO BID@1200,2100 01/10/20 09/29/22 lisinopril 10 mg tablet 10 mg PO BEDTIME 01/10/20 09/29/22 montelukast 10 mg tablet 10 mg PO BEDTIME 01/10/20 09/29/22 multivitamin 1 tab PO DAILY 01/10/20 09/29/22 thiamine HCl (vitamin B1) 100 mg 100 mg PO DAILY@1200 01/10/20 09/29/22 tablet atenolol 50 mg tablet 50 mg PO DAILY@1200 04/20/21 09/29/22 docusate sodium 100 mg capsule 100 mg PO DAILY@1200 PRN 04/20/21 09/29/22 Constipation folic acid 1 mg tablet 1 tab PO QAM 04/20/21 09/29/22 furosemide 40 mg tablet 1 tab PO DAILY 04/20/21 09/29/22 lurasidone 60 mg tablet (Latuda) 60 mg PO DAILY@0700 04/20/21 09/29/22 melatonin 5 mg tablet 10 mg PO BEDTIME PRN insomnia 04/20/21 09/29/22 prazosin 5 mg capsule 1 cap PO BEDTIME 04/20/21 09/29/22 alendronate 70 mg tablet 1 tab PO MO@0600 04/22/21 09/29/22 diclofenac sodium 1 % topical gel 2 g topical QID PRN Pain 04/22/21 09/29/22 fluticasone propionate 50 1 spray intranasal DAILY 04/22/21 09/29/22 mcg/actuation nasal spray,suspension hydroxyzine HCl 50 mg tablet 1 tab PO TID PRN Anxiety 04/22/21 09/29/22 cholecalciferol (vitamin D3) 50 50 mcg PO DAILY 07/20/21 09/29/22 mcg (2,000 unit) tablet acetaminophen 500 mg tablet 1,000 mg PO Q6H PRN Pain 09/08/21 09/29/22 albuterol sulfate 90 mcg/actuation 2 puff inhalation Q4H PRN 09/08/21 09/29/22 aerosol inhaler (ProAir HFA) Respiratory Distress lidocaine 5 % topical patch 1 patch topical DAILY 09/08/21 09/29/22 Oxygen Home Use 03/25/22 09/29/22 nebulizers 03/25/22 09/29/22 quetiapine 25 mg tablet 100 mg PO DAILY PRN anxiety 08/18/22 09/29/22 quetiapine 400 mg tablet 600 mg PO BEDTIME 08/18/22 09/29/22 cetirizine 10 mg tablet 10 mg PO DAILY PRN allergies 09/08/22 09/29/22 divalproex 250 mg tablet,extended 750 mg PO DAILY@1200 09/08/22 09/29/22 release 24 hr divalproex 500 mg tablet,extended 1,000 mg PO BEDTIME 09/08/22 09/29/22 release 24 hr nicotine (polacrilex) 4 mg gum 4 mg PO Q2H PRN Nicotine Cravings 09/08/22 09/29/22 prazosin 1 mg capsule 1 mg PO BEDTIME 09/08/22 09/29/22 cyclobenzaprine 10 mg tablet 10 mg PO TID 01/06/23 econazole 1 % topical cream appl topical BID 03/30/23 nitrofurantoin 1 cap PO BID 03/30/23 monohydrate/macrocrystals 100 mg capsule Previous Rx's ?Medication ?Instructions ?Recorded leg brace (Ankle Brace) #1 ea 01/22/20 tramadol 50 mg tablet 50 mg PO BID PRN Pain #30 tabs 07/27/21 pen needle, diabetic 32 gauge x #125 ea 04/01/22 (BD Ultra-Fine Mary Pen Needle) budesonide 160 mcg-glycopyr 9 2 inh inhalation BID 30 days #10.7 08/18/22 mcg-formot 4.8 mcg/actuation HFA grams inhaler (Breztri Aerosphere) azithromycin 500 mg tablet 500 mg PO DAILY 5 days #5 tabs 01/06/23 fluconazole 100 mg tablet 100 mg PO DAILY 7 days #7 tabs 01/06/23 blood-glucose sensor (FreeStyle #2 ea 04/12/23 Todd 3 Sensor device) insulin lispro 100 unit/mL 30 unit (0.3 mL) subcut TIDWMEAL 05/24/23 subcutaneous pen (Humalog KwikPen 30 days #27 mL (U-100) Insulin) cefuroxime axetil 500 mg tablet 500 mg PO BID 10 days #20 tabs 06/05/23 prednisone 20 mg tablet 60 mg (3 x 20 mg) PO DAILY #15 tabs 06/05/23 atorvastatin 40 mg tablet 40 mg PO QAM #90 tabs 06/26/23 tirzepatide 7.5 mg/0.5 mL 7.5 mg (0.5 mL) subcut QWEEK #2 mL 07/19/23 subcutaneous pen injector (Bree) Tirosint 150 mcg capsule 150 mcg PO DAILY #30 caps 07/21/23 (levothyroxine) lorazepam 1 mg tablet (Ativan) 1 mg PO TID PRN anxiety #6 tabs 07/29/23 blood sugar diagnostic (FreeStyle #100 strips 08/25/23 Precision Ronny Strips) insulin glargine U-300 conc 300 100 unit (0.3333 mL) subcut DAILY 09/05/23 unit/mL (3 mL) subcutaneous pen #12 mL (Toujeo Max U-300 SoloStar) flash glucose sensor (FreeStyle #2 kits 10/02/23 Todd 2 Sensor kit) levothyroxine 200 mcg capsule 200 mcg PO DAILY #30 caps 10/02/23 (Tirosint) Allergies Allergy/AdvReac Type Severity Reaction Status Date / Time metformin Allergy Intermediate Diarrhea Verified 11/01/23 02:57 tetracycline Allergy Intermediate hives Verified 11/01/23 02:57 Latex, Natural Rubber Allergy Rash Verified 11/01/23 02:57 haloperidol [From HALDOL] AdvReac Intermediate Irritable Verified 11/01/23 02:57 Review of Systems 2 Review of Systems: Yes all other systems are reviewed and are negative [facility] Past Medical History Medical History (Updated 11/01/23 @ 06:42 by Matthew Steele MD) COPD (chronic obstructive pulmonary disease) Hypothyroidism Multinodular thyroid HLD (hyperlipidemia) T2DM (type 2 diabetes mellitus) Pneumonitis Chronic respiratory failure Pulmonary nodules Pneumonia Acute and chronic respiratory failure with hypoxia MORGAN on CPAP Morbid (severe) obesity due to excess calories Chronic restrictive lung disease Obesity due to excess calories DM2 (diabetes mellitus, type 2) HLD (hyperlipidemia) Diabetes Goiter Vitamin D deficiency Hypothyroidism Fibula fracture Hx of fracture of patella Back pain GERD (gastroesophageal reflux disease) Hepatitis History of posttraumatic stress disorder (PTSD) Depression Myocardial infarction AAA (abdominal aortic aneurysm) without rupture Morbid obesity Hernia Umbilical hernia PTSD (post-traumatic stress disorder) ADHD Schizo affective schizophrenia Arthritis Migraine Diabetes HTN (hypertension) Gallstone Aortic aneurysm Sleep apnea Asthma Surgical History Hx of knee surgery Hx of tubal ligation History of incision and drainage Tubal ligation status Family History Family History Father Unknown family medical history Mother Unknown family medical history Sister Ovarian cancer Son No problems noted. Son Depression Son Asthma Bipolar 1 disorder ADHD Daughter No problems noted. Daughter Unknown family medical history Daughter Unknown family medical history Daughter No problems noted. Social History Social History Household Members: None Housing: Apartment Are you a primary acute care occupational therapist to a significant other at home: No Do you presently have visiting nurse or other home services: No Unable to assess alcohol history related to: Unable to respond Alcohol intake: never Patient Tobacco Use Status: Never used Tobacco Tobacco use type: Cigarette Cigarette Packs Per Day: 6 Years Smoked: 35 Smoked in Last 30 Days: No e-Cigarette/Vaping Use: Currently Using Use of substances other than those prescribed or required for medical reasons: No Substance Use Type: Marijuana Advance Directives: Yes Advance Directives on File: Yes Advance Directives Date on File: 09/13/21 Do you have a plan to hurt others: No Plan service: No Current occupational status: unemployed Physical Exam ED Vital Signs: Vital Signs - 24 hr 11/01/23 02:49 11/01/23 02:50 11/01/23 03:08 Temperature 97.6 F 97.6 F Pulse Rate 75 75 72 Respiratory Rate 15 8 L Blood Pressure 136/108 H 136/108 H 71/37 L Pulse Oximetry 89 L 95 Oxygen Delivery Method Room Air Nasal Cannula Oxymask Oxygen Flow Rate 6 12 11/01/23 03:45 11/01/23 03:55 11/01/23 05:23 Temperature 96.8 F Pulse Rate 77 70 Respiratory Rate 15 8 L Blood Pressure 49/32 L 146/114 H 108/64 Pulse Oximetry 90 L 92 Oxygen Delivery Method Oxymask CPAP Oxygen Flow Rate 12 11/01/23 05:28 11/01/23 06:00 11/01/23 06:06 Temperature 96.7 F L Pulse Rate 68 Respiratory Rate 12 12 15 Blood Pressure 120/70 Pulse Oximetry 98 Oxygen Delivery Method BiPAP Oxygen Flow Rate 11/01/23 06:50 Temperature Pulse Rate 72 Respiratory Rate 10 L Blood Pressure 120/67 Pulse Oximetry 92 Oxygen Delivery Method Nasal Cannula Oxygen Flow Rate 8 BMI result Body Mass Index 79.5 Const Other: The patient is a morbidly obese 53-year-old. She is 5 ft 6 and 223 kg. BMI is 79.5. She seemed sleepy but responsive. She looks quite chronically ill. She had some bruising in the medial aspect of the right ankle. HENMT Other: No signs of trauma to the head or the face. No raccoon eyes. No dominique sign. Eyes Other: Pupils are round equal, conjunctivae are clear, extraocular movements intact. Neck Other: No C-spine tenderness, moving her neck easily, C-spine is clinically clear. The neck is quite thick. No JVD apparent. Resp Other: Diminished air entry bilaterally. No definite crackles or wheezes. Cardio Other: The patient has a regular rate and rhythm with no murmur. GI Other: Abdomen is large. It is soft and nontender. Skin Other: There is bruising to the medial aspect of the right foot and ankle. The skin is intact. Neuro Other: The patient is awake and alert and seems oriented although she seems somewhat drowsy possibly somewhat intoxicated. Pupils are round equal, extraocular movements intact, face is symmetrical. The patient did not seem to have aphasia or dysarthria. She moves her arms appropriately. She had a lot of pain with moving the right leg. Extrem Other: The patient has a lot of tenderness around the right ankle where there is bruising at the medial aspect of the right foot. Medications Administered Generic Name Dose Route Start Last Admin Trade Name Freq PRN Reason Stop Dose Admin Heparin Sodium (Porcine) 5,000 unit 11/01/23 07:30 11/01/23 08:32 Heparin Sodium,Porcine 5,000 Unit/Ml Vial SUBCUT 5,000 unit Q12H SHARI Administration Sodium Chloride 3 ml 11/01/23 08:00 11/01/23 08:28 0.9 % Sodium Chloride Flush 3 Ml Syringe IVFLUSH Not Given QSHIFT SHARI Discontinued Medications Generic Name Dose Route Start Last Admin Trade Name Freq PRN Reason Stop Dose Admin Ceftriaxone Sodium 2 gm/ 50 mls @ 100 mls/hr 11/01/23 05:13 11/01/23 06:14 Sodium Chloride IV 11/01/23 05:42 Infused ONCE ONE Infusion Lactated Ringer's 1,000 mls @ 999 mls/hr 11/01/23 06:15 11/01/23 08:27 Lr IV 11/01/23 07:15 Infused .Q1H1M SHARI Infusion Medical Decision Making Medical Decision Making [facility] Narrative: The patient is a morbidly obese 53-year-old who comes to the emergency room having injured her right ankle. She also seems somewhat sedated, possibly from drug use. She also had significantly foul-smelling urine. The patient's evaluation is complicated by a somewhat sedated demeanor and her morbid obesity. The patient was able to say that she injured her ankle when she fell. She did not think she hit her head. She does not feel she has had a fever. The patient's labs show a white count of 5.7, hemoglobin 10.2, platelet count 238, differential on the white count shows 55% neutrophils and 32% lymphocytes. Basic metabolic panel shows sodium of 128, potassium 4.7, chloride 76, carbon dioxide of 40. The carbon dioxide of 40 is likely suggestive of chronic obesity hypoventilation syndrome. BUN is 8. Creatinine 1.27. GFR 44. A lactate has been done (although patient was not found to have a fever) her lactate was 2.6. A repeat lactate was 1.9. CRP slightly elevated at 3.43 Urinalysis is suggestive of UTI. She is positive nitrites, 3+ leukocyte esterase and greater than 50 white cells. 4+ bacteria. Urine tox screen is positive for barbiturates. Venous blood gas showed a pH of 7.41 pCO2 of 78, with VBG bicarb of 50. I believe the patient's labs demonstrate a chronic and compensated respiratory acidosis. The patient was given IV ceftriaxone for UTI. The patient had an x-ray of the right ankle that showed a fracture of the distal fibula above the lateral malleolus. The patient was placed on CPAP which she has at home. Her right ankle was splinted with a posterior splint which I applied using cast padding, Orthoglass, and David bandages. Given the patient's obesity, her UTI, and her ankle fracture I felt that the patient would likely require hospitalization. The patient was therefore admitted to the hospitalist service. Orthopedics was notified. Lab Data 11/01/23 03:52 11/01/23 04:01 Labs: Lab Results 11/01/23 11/01/23 11/01/23 Range/Units 03:35 03:52 04:01 WBC 5.7 (4.8-10.8) X10*3/uL RBC 3.74 L (4.20-5.50) X10*6/uL Hgb 10.2 L (12.0-16.0) g/dl Hct 31.2 L (37.0-47.0) % MCV 83.4 (80.0-98.0) fL MCH 27.3 (27.0-33.0) pg MCHC 32.7 (31.0-35.0) g/dl RDW 13.7 (11.0-16.0) % Plt Count 238 (160-400) X10*3/uL MPV 10.1 (9.4-12.3) fL Immature Gran % (Auto) 0.5 H (0.0-0.4) % Neut % (Auto) 55.0 (45-73) % Lymph % (Auto) 32.5 (20-40) % [place] % (Auto) 8.9 (2-11) % Eos % (Auto) 2.4 (0-4) % Baso % (Auto) 0.7 (0-2) % Lymph # (Auto) 1.9 (1.2-4.9) X10*3/uL [place] # (Auto) 0.5 (0.1-1.2) X10*3/uL Eos # (Auto) 0.1 (0.0-0.4) X10*3/uL Baso # (Auto) 0.0 (0.0-0.2) X10*3/uL Abs Immat Gran (auto) 0.03 (0.00-0.03) X10*3/uL Absolute Neuts (auto) 3.1 (2.0-8.3) x10*3/uL Absolute Nucleated RBC 0.000 (0.0-0.012) X10*3/uL Nucleated RBC % (auto) 0.0 (0.0-0.2) /100WBC PT 12.0 (11.1-13.3) SEC INR 1.0 (0.9-1.1) VBG pH 7.41 (7.32-7.43) VBG pCO2 78 mmHg VBG pO2 48 mmHg VBG HCO3 50 H (22-26) mmol/L VBG O2 Saturation 78.0 % VBG Base Excess 21.4 mmol/L Sodium 128 L (135-145) mmol/L Potassium 4.7 (3.3-5.1) mmol/L Chloride 76 L (96-108) mmol/L Carbon Dioxide 40 H* (22-29) mmol/L Anion Gap 17 (12-20) BUN 8 L (9-16) mg/dL Creatinine 1.27 (0.5-1.4) mg/dL Estim Creat Clear Calc 102.2 Estimated GFR 44 Random Glucose 106 (60-115) mg/dL Lactic Acid (0.5-2.0) mmol/L Calcium 9.7 (8.4-10.2) mg/dL Magnesium 2.2 (1.6-2.6) mg/dL Total Bilirubin 0.2 (0.0-1.0) mg/dL Direct Bilirubin < 0.2 (0.0-0.5) mg/dL AST 23 (5-31) U/L ALT 15 (0-31) U/L Alkaline Phosphatase 54 (39-117) U/L Troponin I High Sens 5.2 D (<3.5-17.0) ng/L C-Reactive Protein 3.43 H (< or = 0.50) mg/dL B-Natriuretic Peptide 45 (<100) pg/mL Total Protein 6.8 (6.5-8.0) g/dL Albumin 4.0 (3.5-5.0) g/dL Lipase < 4 L (8-78) U/L Beta HCG, Quant < 2 mIU/mL Urine Color Yellow Urine Appearance Turbid Urine pH 7.0 (5.0-9.0) Ur Specific [place] <= 1.005 (1.005-1.025) Urine Protein Negative (Neg-Trace) mg/dL Urine Glucose (UA) Negative (Negative) mg/dL Urine Ketones Negative (Negative) mg/dL Urine Blood Trace H (Negative) Urine Nitrite Positive H (Negative) Ur Leukocyte Esterase Large (3+) H (Negative) Urine RBC 0-2 (0-2) /HPF Urine WBC >50 H (0-5) /HPF Ur Squamous Epith Cells 0-2 (0-2) /HPF Urine Bacteria 4+ (None Seen) Hyaline Casts 0-2 (0-2) /LPF Urine Opiates Screen Not Detected (Not Detect) Ur Buprenorphine Scrn Not Detected (Not Detect) ng/mL Ur Oxycodone Screen Not Detected (Not Detect) ng/mL Urine Methadone Screen Not Detected (Not Detect) ng/mL Urine Fentanyl Screen Not Detected (Not Detect) Ur Barbiturates Screen POSITIVE H (Not Detect) Ur Phencyclidine Scrn Not Detected (Not Detect) Ur Amphetamines Screen Not Detected (Not Detect) U Benzodiazepines Scrn Not Detected (Not Detect) Urine Cocaine Screen Not Detected (Not Detect) U Marijuana (THC) Screen Not Detected (Not Detect) Ethyl Alcohol < 10 mg/dL Influenza Type A (PCR) NEGATIVE (Negative) Influenza Type B (PCR) NEGATIVE (Negative) RSV RNA Qual (PCR) NEGATIVE (Negative) SARS-CoV-2 RNA (RT-PCR) NEGATIVE (Negative) 11/01/23 Range/Units 05:16 WBC (4.8-10.8) X10*3/uL RBC (4.20-5.50) X10*6/uL Hgb (12.0-16.0) g/dl Hct (37.0-47.0) % MCV (80.0-98.0) fL MCH (27.0-33.0) pg MCHC (31.0-35.0) g/dl RDW (11.0-16.0) % Plt Count (160-400) X10*3/uL MPV (9.4-12.3) fL Immature Gran % (Auto) (0.0-0.4) % Neut % (Auto) (45-73) % Lymph % (Auto) (20-40) % [place] % (Auto) (2-11) % Eos % (Auto) (0-4) % Baso % (Auto) (0-2) % Lymph # (Auto) (1.2-4.9) X10*3/uL [place] # (Auto) (0.1-1.2) X10*3/uL Eos # (Auto) (0.0-0.4) X10*3/uL Baso # (Auto) (0.0-0.2) X10*3/uL Abs Immat Gran (auto) (0.00-0.03) X10*3/uL Absolute Neuts (auto) (2.0-8.3) x10*3/uL Absolute Nucleated RBC (0.0-0.012) X10*3/uL Nucleated RBC % (auto) (0.0-0.2) /100WBC PT (11.1-13.3) SEC INR (0.9-1.1) VBG pH (7.32-7.43) VBG pCO2 mmHg VBG pO2 mmHg VBG HCO3 (22-26) mmol/L VBG O2 Saturation % VBG Base Excess mmol/L Sodium (135-145) mmol/L Potassium (3.3-5.1) mmol/L Chloride (96-108) mmol/L Carbon Dioxide (22-29) mmol/L Anion Gap (12-20) BUN (9-16) mg/dL Creatinine (0.5-1.4) mg/dL Estim Creat Clear Calc Estimated GFR Random Glucose (60-115) mg/dL Lactic Acid 2.6 H* (0.5-2.0) mmol/L Calcium (8.4-10.2) mg/dL Magnesium (1.6-2.6) mg/dL Total Bilirubin (0.0-1.0) mg/dL Direct Bilirubin (0.0-0.5) mg/dL AST (5-31) U/L ALT (0-31) U/L Alkaline Phosphatase (39-117) U/L Troponin I High Sens (<3.5-17.0) ng/L C-Reactive Protein (< or = 0.50) mg/dL B-Natriuretic Peptide (<100) pg/mL Total Protein (6.5-8.0) g/dL Albumin (3.5-5.0) g/dL Lipase (8-78) U/L Beta HCG, Quant mIU/mL Urine Color Urine Appearance Urine pH (5.0-9.0) Ur Specific [place] (1.005-1.025) Urine Protein (Neg-Trace) mg/dL Urine Glucose (UA) (Negative) mg/dL Urine Ketones (Negative) mg/dL Urine Blood (Negative) Urine Nitrite (Negative) Ur Leukocyte Esterase (Negative) Urine RBC (0-2) /HPF Urine WBC (0-5) /HPF Ur Squamous Epith Cells (0-2) /HPF Urine Bacteria (None Seen) Hyaline Casts (0-2) /LPF Urine Opiates Screen (Not Detect) Ur Buprenorphine Scrn (Not Detect) ng/mL Ur Oxycodone Screen (Not Detect) ng/mL Urine Methadone Screen (Not Detect) ng/mL Urine Fentanyl Screen (Not Detect) Ur Barbiturates Screen (Not Detect) Ur Phencyclidine Scrn (Not Detect) Ur Amphetamines Screen (Not Detect) U Benzodiazepines Scrn (Not Detect) Urine Cocaine Screen (Not Detect) U Marijuana (THC) Screen (Not Detect) Ethyl Alcohol mg/dL Influenza Type A (PCR) (Negative) Influenza Type B (PCR) (Negative) RSV RNA Qual (PCR) (Negative) SARS-CoV-2 RNA (RT-PCR) (Negative) Discharge Plan Discharge Clinical Impression: UTI (urinary tract infection), Fracture of right ankle, Hypercapnia Patient Disposition: Admitted As Inpatient
--- NOTE | 2023-11-01 03:21 | ECG_ITS ---
Test Reason : altered Blood Pressure : / mmHG Vent. Rate : 067 BPM Atrial Rate : 067 BPM P-R Int : 228 ms QRS Dur : 098 ms QT Int : 382 ms P-R-T Axes : 051 -36 042 degrees QTc Int : 403 ms Sinus rhythm with 1st degree A-V block Left axis deviation Low voltage QRS Nonspecific ST and T wave abnormality Abnormal ECG When compared with ECG of 29-JUL-2023 18:06, Nonspecific T wave abnormality, worse in Inferior leads Nonspecific T wave abnormality now evident in Lateral leads Referred By: Matthew Steele Electronically Signed By:CHRISSY GALLARDO
--- NOTE | 2023-11-01 03:46 | PC.NURSE ---
MD aware of blood pressures
[2023-11-01 03:53] LABS: Appearance Urine Turbid; Color Urine Yellow; Glucose Urine UA Negative (Negative); Leukocyte Esterase Urine Large (3+) (Negative); Nitrite Urine Positive (Negative); Specific Gravity - Urine <= 1.005 (1.005-1.025); UMIC TRIGGER UACC YES; Urine Blood Trace (Negative); Urine Ketones Negative (Negative); Urine Protein Negative (Neg-Trace)
[2023-11-01 03:55] LABS: MANUAL DIFF FLAG NO
[2023-11-01 03:56] LABS: Basophils Percent Auto 0.7 % (0-2); Eosinophils Absolute Auto 0.1 X10*3/uL (0.0-0.4); Eosinophils Percent Auto 2.4 % (0-4); Hematocrit 31.2 % (37.0-47.0); Hemoglobin 10.2 g/dl (12.0-16.0); Imm Gran Abs Auto 0.03 X10*3/uL (0.00-0.03); Imm Gran Pct Auto 0.5 % (0.0-0.4); Lymphocytes Absolute Auto 1.9 X10*3/uL (1.2-4.9); Lymphocytes Percent Auto 32.5 % (20-40); Mean Corpuscular HGB Conc 32.7 g/dl (31.0-35.0); Mean Corpuscular Hemoglobin 27.3 pg (27.0-33.0); Mean Corpuscular Volume 83.4 fL (80.0-98.0); Mean Platelet Volume 10.1 fL (9.4-12.3); Monocytes Absolute Auto 0.5 X10*3/uL (0.1-1.2); Monocytes Percent Auto 8.9 % (2-11); Neutrophils Absolute Auto 3.1 x10*3/uL (2.0-8.3); Platelet Count 238 X10*3/uL (160-400); Red Blood Count 3.74 X10*6/uL (4.20-5.50); Red Cell Distribution Width 13.7 % (11.0-16.0); White Blood Count 5.7 X10*3/uL (4.8-10.8)
--- NOTE | 2023-11-01 03:59 | PC.NURSE ---
blood pressure cuff size changed, BP improved, MD aware
[2023-11-01 04:00] LABS: Bacteria Urine 4+ (None Seen); Hyaline Casts Urine 0-2 /LPF (0-2); RBC Urine 0-2 /HPF (0-2); Squamous Epithelial Cell Urine 0-2 /HPF (0-2); UACC Culture Trigger YES; WBC Urine >50 /HPF (0-5)
[2023-11-01 04:08] LABS: Amphetamine Screen Urine Not Detected (Not Detect); Barbiturates, Urine POSITIVE (Not Detect); Benzodiazepines Screen Urine Not Detected (Not Detect); Buprenorphine Scr Not Detected (Not Detect); Cannabinoid Screen Urine Not Detected (Not Detect); Cocaine Screen Urine Not Detected (Not Detect); Fentanyl, urine Not Detected (Not Detect); Methadone Screen, Urine Not Detected (Not Detect); Opiate Screen Urine Not Detected (Not Detect); Oxycodone Screen Urine Not Detected (Not Detect); Phencyclidine Screen Urine Not Detected (Not Detect)
[2023-11-01 04:08] LABS: Venous Blood Gas Refer to POC result
[2023-11-01 04:10] LABS: VBG Base Excess 21.4 mmol/L; VBG HCO3 50 mmol/L (22-26); VBG pCO2 78 mmHg; VBG pH 7.41 (7.32-7.43); VBG pO2 48 mmHg
[2023-11-01 04:15] LABS: Troponin-I High Sensitivity 5.2 ng/L (<3.5-17.0)
[2023-11-01 04:28] LABS: B Type Natriuretic Peptide 45 pg/mL (<100)
[2023-11-01 04:31] LABS: Alanine Aminotransferase 15 U/L (0-31); Alkaline Phosphatase 54 U/L (39-117); Anion Gap 17 (12-20); Aspartate Amino Transferase 23 U/L (5-31); Bilirubin Direct < 0.2 mg/dL (0.0-0.5); Bilirubin Total 0.2 mg/dL (0.0-1.0); Blood Urea Nitrogen 8 mg/dL (9-16); C Reactive Protein 3.43 mg/dL (< or = 0.50); Calcium 9.7 mg/dL (8.4-10.2); Carbon Dioxide 40 mmol/L (22-29); Chloride 76 mmol/L (96-108); Creatinine Clr Calc Pharmacy 102.2; Estimated Glomerular Filt Rate 44; Ethanol < 10 mg/dL; Glucose Random 106 mg/dL (60-115); HCG Quantitative < 2 mIU/mL; Lipase < 4 U/L (8-78); Magnesium 2.2 mg/dL (1.6-2.6); Potassium 4.7 mmol/L (3.3-5.1); Sodium 128 mmol/L (135-145); Total Protein 6.8 g/dL (6.5-8.0)
--- NOTE | 2023-11-01 04:36 | PC.NURSE ---
this RN resumed care of pt at 0645. pt presenting w/ altered mental status. aware of name/follows some simple commands but to an extent. unable to follow all commands/answer questions appropriately. speech is incomprehensible at times. pt continuously yelling out to staff. pt currently resides on on 11L via oxymask - resting between 92%-93%. pt is on 8L via NC baseline. wob shown. pt continuously asking everyone to lay her flat. pt educated that laying flat at this time is not beneficial but more so dangerous with her current state and how she is currently presenting. pt repositioned upright to promote patent airway. plan of care ongoing. call barcenas placed within reach.
[2023-11-01 04:43] LABS: Influenza A PCR NEGATIVE (Negative); Influenza B PCR NEGATIVE (Negative); Resp Syncy Virus RNA Qual PCR NEGATIVE (Negative); SARS COV2 PCR INHOUSE NEGATIVE (Negative)
--- NOTE | 2023-11-01 05:03 | PC.NURSE ---
pt placed on CPAP via RT at this time. settings set at 8 @ 35%. pt resting at 88% on CPAP settings. HR 77bpm.
--- NOTE | 2023-11-01 05:35 | PC.NURSE ---
critical lab value - lactic of 2.6 received at this time. dr. wiggins notified/aware.
[2023-11-01 05:36] LABS: Lactic Acid 2.6 mmol/L (0.5-2.0)
[2023-11-01] MEDS: cefTRIAXone sodium 2 GM in 0.9 % Sodium Chloride 50 ML IV (05:44)
--- NOTE | 2023-11-01 05:44 | PC.NURSE ---
new 20gIV placed in pt's right forearm - patent/intact. cultures obtained/sent to lab. abx administered per provider order. pt remains on same CPAP settings - resting in no apparent distress. call barcenas placed within reach.
--- NOTE | 2023-11-01 06:05 | PC.NURSE ---
pt noted to have decreased respirations - approx. 5-6 breaths per minute while on CPAP. RT/MD notified/aware. pt now transitioned to BIPAP - settings placed at 14/7 w/ a rate of 12 @ 35%. otherwise vss and up to date. nsr on the research home economist. pt also noted pt to have vape in hand attempting to inhale/take off CPAP mask prior to being transitioned to BIPAP. vape confiscated/brought to security.
--- NOTE | 2023-11-01 06:06 | MHC.EDTECH ---
pt pulled out a vape while laying in bed on BIPAP and attempted to use vape. Pt attempted to hide the vape but this tech found the vape and placed it in a bag with patient label and brought to security
[2023-11-01] MEDS: Lactated Ringers 1,000 ML 999 ML IV (06:10)
--- NOTE | 2023-11-01 06:10 | PC.NURSE ---
LR administered per provider order.
--- NOTE | 2023-11-01 06:20 | PC.NURSE ---
splint applied to pt's right ankle by d/t xray results. pt tolerated well.
--- NOTE | 2023-11-01 06:48 | PC.NURSE ---
pt removed BIPAP/discontinued on her own. pt more awake/alert/oriented but seemingly restless. pt placed back on 8L via NC (baseline). resting at 88%-92%. wob noted only w/ exertion. otherwise resting in no apparent distress. provider/RT aware of BIPAP removal. plan of care ongoing.
[2023-11-01 07:19] LABS: Reflex Lactate? Lactic Acid Added
--- NOTE | 2023-11-01 07:32 | PM.IMHP ---
History of Present Illness Date of Service: 11/01/23 Chief Complaint: Fall 53 year old women admitted after a fall at home. Apparently her boyfriend said that the patient was more weak than usual and seems altered. She was found lying on the ground at her home with a urine odor. According to the patient she fell a few days ago. She had not taken any new medications or street drugs. She stated that she has balance issues because of her weight but does use and cane and walker. She denied recent illness, sick contacts, fever, chills, nausea. She uses cpap at bedtime and during the day as needed. She came in the ED and was encephalopathic. In the ED, chest x-ray negative for consolidation or effusion, imaging of ankle showed comminuted fracture of the distal fibula, sodium 128, initial lactic acid of 2.6, positive urinalysis, barbiturates positive. She was placed on 8 L OxyMask with oxygen saturation of 99%. CPAP placed as well. She received a dose of Rocephin in the ER. Encephalopathy improved. Plan is to admit for acute on chronic respiratory failure and ankle fracture. Review of Systems Review of Systems: Denies any recent fever chills or decrease in appetite respiratory see HPI cardiovascular denied chest pain gastrointestinal denies any dysphagia abdominal pain nausea vomiting or diarrhea genitourinary denies any dysuria frequency or hematuria musculoskeletal right ankle pain neuropsych denies any weakness or seizures all other systems reviewed are negative [facility] Medical History (Updated 11/01/23 @ 06:42 by Matthew Steele MD) COPD (chronic obstructive pulmonary disease) Hypothyroidism Multinodular thyroid HLD (hyperlipidemia) T2DM (type 2 diabetes mellitus) Pneumonitis Chronic respiratory failure Pulmonary nodules Pneumonia Acute and chronic respiratory failure with hypoxia MORGAN on CPAP Morbid (severe) obesity due to excess calories Chronic restrictive lung disease Obesity due to excess calories DM2 (diabetes mellitus, type 2) HLD (hyperlipidemia) Diabetes Goiter Vitamin D deficiency Hypothyroidism Fibula fracture Hx of fracture of patella Back pain GERD (gastroesophageal reflux disease) Hepatitis History of posttraumatic stress disorder (PTSD) Depression Myocardial infarction AAA (abdominal aortic aneurysm) without rupture Morbid obesity Hernia Umbilical hernia PTSD (post-traumatic stress disorder) ADHD Schizo affective schizophrenia Arthritis Migraine Diabetes HTN (hypertension) Gallstone Aortic aneurysm Sleep apnea Asthma Family History Father Unknown family medical history Mother Unknown family medical history Sister Ovarian cancer Son No problems noted. Son Depression Son Asthma Bipolar 1 disorder ADHD Daughter No problems noted. Daughter Unknown family medical history Daughter Unknown family medical history Daughter No problems noted. Surgical History Hx of knee surgery Hx of tubal ligation History of incision and drainage Tubal ligation status Social History Household Members: None Housing: Apartment Are you a primary veterinarian laboratory animal care to a significant other at home: No Do you presently have visiting nurse or other home services: No Unable to assess alcohol history related to: Unable to respond Alcohol intake: never Patient Tobacco Use Status: Never used Tobacco Tobacco use type: Cigarette Cigarette Packs Per Day: 6 Years Smoked: 35 Smoked in Last 30 Days: No e-Cigarette/Vaping Use: Currently Using Use of substances other than those prescribed or required for medical reasons: No Substance Use Type: Marijuana Advance Directives: Yes Advance Directives on File: Yes Advance Directives Date on File: 09/13/21 Do you have a plan to hurt others: No Plan Nutrition Risks: No Nutritional Risk service: No Current occupational status: unemployed Meds Allergies Allergy/AdvReac Type Severity Reaction Status Date / Time metformin Allergy Intermediate Diarrhea Verified 11/01/23 02:57 tetracycline Allergy Intermediate hives Verified 11/01/23 02:57 Latex, Natural Rubber Allergy Rash Verified 11/01/23 02:57 haloperidol [From HALDOL] AdvReac Intermediate Irritable Verified 11/01/23 02:57 Active Medications: Current Medications Acetaminophen (Acetaminophen 325 Mg Tablet) 650 mg PO Q6H PRN PRN Reason: Pain, Mild (Pain Scale 1-3), fever or headache Calcium Carbonate (Calcium Carbonate 750 Mg Tab.Chew) 750 mg PO Q4H PRN PRN Reason: Heartburn Heparin Sodium (Porcine) (Heparin Sodium,Porcine 5,000 Unit/Ml Vial) 5,000 unit SUBCUT Q12H SHARI Magnesium Hydroxide (Milk Of Magnesia 30 Ml Oral.Susp) 30 ml PO DAILY PRN PRN Reason: Constipation Melatonin (Melatonin 3 Mg Tablet) 6 mg PO BEDTIME PRN PRN Reason: Insomnia Ondansetron HCl (Ondansetron Hcl 4 Mg/2 Ml Vial) 4 mg IVPUSH Q8H PRN PRN Reason: Nausea and Vomiting Polyethylene Glycol (Polyethylene Glycol 3350 17 Gm Powd.Pack) 17 gm PO DAILY PRN PRN Reason: Constipation Sodium Chloride (0.9 % Sodium Chloride Flush 3 Ml Syringe) [facility] Medications ?Medication ?Instructions ?Recorded ?Confirmed ?Last Taken ?Type amitriptyline 10 mg tablet 10 mg PO BEDTIME 01/10/20 11/01/23 10/30/23 History benztropine 1 mg tablet 1 mg PO BID@1200,2100 01/10/20 11/01/23 10/30/23 History lisinopril 10 mg tablet 10 mg PO BEDTIME 01/10/20 11/01/23 10/30/23 History montelukast 10 mg tablet 10 mg PO BEDTIME 01/10/20 11/01/23 10/30/23 History multivitamin 1 tab PO DAILY@1200 01/10/20 11/01/23 10/30/23 History atenolol 50 mg tablet 50 mg PO DAILY@1200 04/20/21 11/01/23 10/30/23 History docusate sodium 100 mg capsule 100 mg PO DAILY PRN Constipation 04/20/21 11/01/23 Unknown History folic acid 1 mg tablet 1 tab PO DAILY 04/20/21 11/01/23 10/31/23 History furosemide 40 mg tablet 1 tab PO DAILY 04/20/21 11/01/23 10/31/23 History lurasidone 60 mg tablet (Latuda) 60 mg PO DAILY@0700 04/20/21 11/01/23 10/31/23 History melatonin 5 mg tablet 10 mg PO BEDTIME PRN insomnia 04/20/21 11/01/23 Unknown History prazosin 5 mg capsule 1 cap PO BEDTIME 04/20/21 11/01/23 10/30/23 History alendronate 70 mg tablet 1 tab PO MO@0600 04/22/21 11/01/23 10/30/23 History diclofenac sodium 1 % topical gel 2 g topical BID Pain 04/22/21 11/01/23 10/31/23 History fluticasone propionate 50 1 spray intranasal DAILY PRN 04/22/21 11/01/23 09/08/21 History mcg/actuation nasal ALLERGIES spray,suspension hydroxyzine HCl 50 mg tablet 1 tab PO TID PRN Anxiety 04/22/21 11/01/23 Unknown History cholecalciferol (vitamin D3) 50 50 mcg PO DAILY 07/20/21 11/01/23 10/31/23 History mcg (2,000 unit) tablet acetaminophen 500 mg tablet 500 mg PO Q6H PRN Pain 09/08/21 11/01/23 Unknown History lidocaine 5 % topical patch 1 patch topical DAILY 09/08/21 11/01/23 Unknown History Oxygen Home Use 03/25/22 09/29/22 Unknown History nebulizers 03/25/22 09/29/22 Unknown History quetiapine 25 mg tablet 100 mg PO DAILY@1200 PRN anxiety 08/18/22 11/01/23 Unknown History quetiapine 400 mg tablet 600 mg PO BEDTIME 08/18/22 11/01/23 10/30/23 History cetirizine 10 mg tablet 10 mg PO DAILY PRN allergies 09/08/22 11/01/23 Unknown History divalproex 250 mg tablet,extended 750 mg PO DAILY@1200 09/08/22 11/01/23 10/30/23 History release 24 hr divalproex 500 mg tablet,extended 1,000 mg PO BEDTIME 09/08/22 11/01/23 10/30/23 History release 24 hr nicotine (polacrilex) 4 mg gum 4 mg PO Q2H PRN Nicotine Cravings 09/08/22 11/01/23 Unknown History prazosin 1 mg capsule 1 mg PO BEDTIME 09/08/22 11/01/23 10/30/23 History econazole 1 % topical cream 1 appl topical BID 03/30/23 11/01/23 Unknown History albuterol sulfate 90 mcg/actuation 2 puff inhalation Q4H PRN 11/01/23 11/01/23 Unknown History aerosol inhaler (Ventolin HFA) Shortness Of Breath Or Wheezing ammonium lactate 12 % lotion 1 appl topical DAILY PRN Dry Skin 11/01/23 11/01/23 Unknown History atorvastatin 40 mg tablet 40 mg PO DAILY 11/01/23 11/01/23 10/31/23 History insulin glargine U-300 conc 300 70 unit subcut DAILY 11/01/23 11/01/23 Unknown History unit/mL (3 mL) subcutaneous pen (Toujeo Max U-300 SoloStar) lorazepam 1 mg tablet 1 mg PO DAILY PRN panic attack 11/01/23 11/01/23 Unknown History naproxen 500 mg tablet 500 mg PO BID 11/01/23 11/01/23 Unknown History nystatin 100,000 unit/gram topical 1 appl topical BID 11/01/23 11/01/23 Unknown History powder rimegepant 75 mg disintegrating 75 mg PO NEEDED migraine 11/01/23 11/01/23 Unknown History tablet (Nurtec ODT) tirzepatide 7.5 mg/0.5 mL 7.5 mg subcut MO 11/01/23 11/01/23 10/30/23 History subcutaneous pen injector (Bree) topiramate 50 mg tablet 50 mg PO DAILY 11/01/23 11/01/23 Unknown History tramadol 50 mg tablet 50 mg PO DAILY PRN Pain 11/01/23 11/01/23 Unknown History Physical Exam Vital Signs and Narrative: Vital Signs: Last Vital Signs Temp 96.7 F L 11/01/23 06:00 Pulse 72 11/01/23 06:50 Resp 10 L 11/01/23 06:50 BP 120/67 11/01/23 06:50 Pulse Ox 92 11/01/23 06:50 O2 Del Method Nasal Cannula 11/01/23 06:50 O2 Flow Rate 8 11/01/23 06:50 BMI result Body Mass Index 79.5 Appearing in no acute distress head is normocephalic atraumatic eyes pupils are PERRLA sclera is anicteric mouth throat mucous membranes are intact and moist neck is supple no lymphadenopathy, no JVD noted lung sounds are clear to auscultation heart regular rate rhythm, clear S1, S2 positive bowel sounds, abdomen is soft, nontender, obese neuro patient is alert x3, no focal deficits Results Labs 11/01/23 03:52 11/01/23 04:01 Labs: Laboratory Results - last 24 hr 11/01/23 11/01/23 11/01/23 03:35 03:52 04:01 MCV 83.4 MCH 27.3 MCHC 32.7 RDW 13.7 Plt Count 238 MPV 10.1 Immature Gran % (Auto) 0.5 H Neut % (Auto) 55.0 Lymph % (Auto) 32.5 [place] % (Auto) 8.9 Eos % (Auto) 2.4 Baso % (Auto) 0.7 Lymph # (Auto) 1.9 [place] # (Auto) 0.5 Eos # (Auto) 0.1 Baso # (Auto) 0.0 Abs Immat Gran (auto) 0.03 Absolute Neuts (auto) 3.1 Absolute Nucleated RBC 0.000 Nucleated RBC % (auto) 0.0 PT 12.0 INR 1.0 VBG pH 7.41 VBG pCO2 78 VBG pO2 48 VBG HCO3 50 H VBG O2 Saturation 78.0 VBG Base Excess 21.4 Anion Gap 17 Estim Creat Clear Calc 102.2 Estimated GFR 44 Random Glucose 106 Lactic Acid Calcium 9.7 Magnesium 2.2 Total Bilirubin 0.2 Direct Bilirubin < 0.2 AST 23 ALT 15 Alkaline Phosphatase 54 Troponin I High Sens 5.2 D C-Reactive Protein 3.43 H B-Natriuretic Peptide 45 Total Protein 6.8 Albumin 4.0 Lipase < 4 L Beta HCG, Quant < 2 Urine Color Yellow Urine Appearance Turbid Urine pH 7.0 Ur Specific [place] <= 1.005 Urine Protein Negative Urine Glucose (UA) Negative Urine Ketones Negative Urine Blood Trace H Urine Nitrite Positive H Ur Leukocyte Esterase Large (3+) H Urine RBC 0-2 Urine WBC >50 H Ur Squamous Epith Cells 0-2 Urine Bacteria 4+ Hyaline Casts 0-2 Urine Opiates Screen Not Detected Ur Buprenorphine Scrn Not Detected Ur Oxycodone Screen Not Detected Urine Methadone Screen Not Detected Urine Fentanyl Screen Not Detected Ur Barbiturates Screen POSITIVE H Ur Phencyclidine Scrn Not Detected Ur Amphetamines Screen Not Detected U Benzodiazepines Scrn Not Detected Urine Cocaine Screen Not Detected U Marijuana (THC) Screen Not Detected Ethyl Alcohol < 10 Influenza Type A (PCR) NEGATIVE Influenza Type B (PCR) NEGATIVE RSV RNA Qual (PCR) NEGATIVE SARS-CoV-2 RNA (RT-PCR) NEGATIVE 11/01/23 05:16 MCV MCH MCHC RDW Plt Count MPV Immature Gran % (Auto) Neut % (Auto) Lymph % (Auto) [place] % (Auto) Eos % (Auto) Baso % (Auto) Lymph # (Auto) [place] # (Auto) Eos # (Auto) Baso # (Auto) Abs Immat Gran (auto) Absolute Neuts (auto) Absolute Nucleated RBC Nucleated RBC % (auto) PT INR VBG pH VBG pCO2 VBG pO2 VBG HCO3 VBG O2 Saturation VBG Base Excess Anion Gap Estim Creat Clear Calc Estimated GFR Random Glucose Lactic Acid 2.6 H* Calcium Magnesium Total Bilirubin Direct Bilirubin AST ALT Alkaline Phosphatase Troponin I High Sens C-Reactive Protein B-Natriuretic Peptide Total Protein Albumin Lipase Beta HCG, Quant Urine Color Urine Appearance Urine pH Ur Specific [place] Urine Protein Urine Glucose (UA) Urine Ketones Urine Blood Urine Nitrite Ur Leukocyte Esterase Urine RBC Urine WBC Ur Squamous Epith Cells Urine Bacteria Hyaline Casts Urine Opiates Screen Ur Buprenorphine Scrn Ur Oxycodone Screen Urine Methadone Screen Urine Fentanyl Screen Ur Barbiturates Screen Ur Phencyclidine Scrn Ur Amphetamines Screen U Benzodiazepines Scrn Urine Cocaine Screen U Marijuana (THC) Screen Ethyl Alcohol Influenza Type A (PCR) Influenza Type B (PCR) RSV RNA Qual (PCR) SARS-CoV-2 RNA (RT-PCR) Imaging Radiologist's Impressions: Impressions Chest X-Ray 11/01/23 03:36 IMPRESSION: Low lung volumes and as described volume loss in the left lung with perihilar opacity emanating into the left lower lobe. This appears similar to previous but there is increasing density in the left upper lung consistent with increasing atelectasis or infiltrate. Continued follow-up recommended Assessment and Plan (1) Fracture of right ankle: Status: Acute Plan 53 year old women admitted for ankle fracture after a fall at home and also noted to have UTI Fall, ankle fx mechanical fall imaging showing comminuted fx of distal fibula pain control as needed seen by orthopedic surgery> no surgical intervention, NWB RLE, splint, f/u ortho 1-2 weeks Acute on chronic respiratory failure secondary to MORGAN and hypoventilation syndrome from obesity On home oxygen and CPAP Continue supplemental oxygen and titrate for oxygen saturation greater than 90% UTI Rocephin follow urine cx encephalopathy. Resolved pt verbalizing reports [place] Hyponatremia seems chronic 128 today urine studies pending Mild fungal infection noted under abdominal folds nystatin HTN lasix, atenolol, lisinopril Compensated respiratory acidosis with hx of MORGAN with supermorbid obesity. BMI 79.5 cpap in the ED, continue at bedtime and as needed Discussed importance of weight management as this may be contributing to worsening of other comorbidities lactic acidosis likely secondary to MORGAN no sepsis CKD3 baseline COPD no exacerbation albuterol as needed DM2 ss, ada diet long acting insulin Smoker NRT HLD statin Mental health Hypothyroidism DVT prophylaxis with heparin full code Quality Stroke Does the patient have a stroke diagnosis?: No VTE Prior VTE?: No VTE Risk Level:: Medical - moderate - high VTE Device Contraindication: Treatment Not Indicated VTE Drug Contraindication: N/A - Med Ordered
[2023-11-01 07:46] LABS: Glucose, Whole Blood 113 mg/dL (60-115)
[2023-11-01 08:20] LABS: ~Lactic Acid-LAB USE ONLY 1.9 mmol/L (0.5-2.0)
[2023-11-01] MEDS: Heparin Sodium,Porcine 5,000 UNIT/ML VIAL 5000 UNIT SUBCUT ×2 (08:32→19:27)
--- NOTE | 2023-11-01 08:53 | PC.NURSE ---
pt transitioned to bariatric bed. pt repositioned to comfort. pt remains on 8L via oxymask at this time - O2 at 92%. pt positioned upright to promote patent airway. no sob/wob noted. at this time. pt pending waiting for bed assignment at this time.
--- NOTE | 2023-11-01 11:11 | PHA.MEDREC ---
Addendum entered by Daryn Noonan [facility] 11/01/23 12:57: She also takes topiramate 50 mg once a day. Addendum entered by Daryn Noonan [facility] 11/01/23 12:54: Went to talk to patient again, she was more alert and was able to say that she uses 70 units of toujeo daily and she's still taking naproxen for her broken leg/ankle. Original Note: Pharmacy Consult ? Medication Reconciliation Pharmacy has completed the medication reconciliation. Spoke to patient, she had slurred speech and was hard to understand. She was able to tell that she uses alendronate and Mounjaro on Mondays, she still uses Breztri inhaler and she last had her medications yesterday (10/31/23) morning. She said she uses [facility] so pharmacy claims was used for med rec.
--- NOTE | 2023-11-01 11:26 | PM.EVENT ---
Event Note Date of Service: 11/01/23 Event Note: case reviewed Images reviewed No acute orthopedic intervention needed at this time - July followup out patient Splint - keep c/d/i NWB RLE f/u with ortho in 1-2 weeks outpatient Time Spent With Patient Time: Total time managing care of this patient today ____ minutes.
--- NOTE | 2023-11-01 13:09 | PC.NURSE ---
Admitting provider ordered elctrolyte urine test, called lab spoke to Livia asked if test could be added on to previous sample. Lab is able to add on test, will run after add on order placed. Add on order placed. Patient refused purewick insertion, grossly incontinent of urine, full bed bath/linen change done with max assist x 3.
[2023-11-01 13:33] LABS: Potassium Urine Random 14.8 mmol/L
[2023-11-01 13:47] LABS: Glucose, Whole Blood 155 mg/dL (60-115)
--- NOTE | 2023-11-01 15:19 | MHC.CM.PN ---
Pt. lives with S.O. some of the time (he does not always stay with her), and he is HCP: Steve Flores. Pt. has one hour a day [employer] services, she does not have VNA or been to [facility]. For DME she has: home O2 and CPAP from [employer], electric w/c, scooter, cane walker with wheels. She said her PCP is Dr. Dietrich at [facility]. She will need ambulance to transport her home. DCP: home with services. CM to follow and assist with DC plan.
[2023-11-01 15:39] LABS: Chloride Urine Random < 20.0 mmol/L; Potassium Urine Random 17.6 mmol/L; Sodium Urine Random < 20.0 mmol/L
[2023-11-01 18:01] LABS: Glucose, Whole Blood 129 mg/dL (60-115)
[2023-11-01] MEDS: Amitriptyline HCl 10 MG TABLET PO (20:30)
[2023-11-01] MEDS: Benztropine Mesylate 1 MG TABLET PO (20:30)
[2023-11-01] MEDS: QUEtiapine Fumarate 300 MG TABLET 600 MG PO (20:30)
[2023-11-01] MEDS: Divalproex Sodium ER 500 MG TAB.ER.24H 1000 MG PO (20:32)
[2023-11-01] MEDS: lisinopriL 10 MG TABLET PO (20:32)
[2023-11-01] MEDS: Montelukast Sodium 10 MG TABLET PO (20:32)
[2023-11-01] MEDS: hydrOXYzine HCL 50 MG TABLET PO (20:47)
[2023-11-01] MEDS: Prazosin HCL 5 MG CAPSULE PO (20:47)
[2023-11-01] MEDS: Prazosin HCL 1 MG CAPSULE PO (20:47)
[2023-11-01 21:01] LABS: Glucose, Whole Blood 133 mg/dL (60-115)
[2023-11-01] MEDS: Nicotine Polacrilex 2 MG GUM 4 MG BUCCAL (21:10)
[2023-11-01] MEDS: traMADoL HCL 50 MG TABLET PO (22:59)
[2023-11-02] VITALS (10 sets, daily range): BP systolic 102–146; BP diastolic 57–79; PULSE 75–106; RESP 14–20; TEMP 36–37.9; O2SAT 90–98
[2023-11-02] MEDS: Acetaminophen 325 MG TABLET 650 MG PO (01:34)
[2023-11-02] MEDS: Morphine Sulfate 2 MG/ML CARTRIDGE 1 MG IVPUSH (04:46)
[2023-11-02] MEDS: Levothyroxine Sodium 150 MCG TABLET PO (04:54)
[2023-11-02] MEDS: Nicotine Polacrilex 2 MG GUM 4 MG BUCCAL ×4 (04:54→20:31)
[2023-11-02 06:45] LABS: Hematocrit 29.6 % (37.0-47.0); Hemoglobin 9.7 g/dl (12.0-16.0); Mean Corpuscular HGB Conc 32.8 g/dl (31.0-35.0); Mean Corpuscular Hemoglobin 26.9 pg (27.0-33.0); Mean Corpuscular Volume 82.2 fL (80.0-98.0); Mean Platelet Volume 10.8 fL (9.4-12.3); Platelet Count 270 X10*3/uL (160-400); Red Cell Distribution Width 14.1 % (11.0-16.0); White Blood Count 4.9 X10*3/uL (4.8-10.8)
[2023-11-02 07:14] LABS: Alanine Aminotransferase 14 U/L (0-31); Albumin Level 3.9 g/dL (3.5-5.0); Alkaline Phosphatase 56 U/L (39-117); Anion Gap 11 (12-20); Aspartate Amino Transferase 21 U/L (5-31); Bilirubin Total 0.2 mg/dL (0.0-1.0); Blood Urea Nitrogen 9 mg/dL (9-16); Calcium 9.4 mg/dL (8.4-10.2); Carbon Dioxide 43 mmol/L (22-29); Chloride 79 mmol/L (96-108); Estimated Glomerular Filt Rate > 60; Glucose Random 121 mg/dL (60-115); Potassium 5.1 mmol/L (3.3-5.1); Sodium 128 mmol/L (135-145); Total Protein 6.7 g/dL (6.5-8.0)
[2023-11-02 07:22] LABS: Glucose, Whole Blood 126 mg/dL (60-115)
[2023-11-02] MEDS: Folic Acid 1 MG TABLET PO (08:07)
[2023-11-02] MEDS: Lurasidone HCl 20 MG TABLET 60 MG PO (08:07)
[2023-11-02] MEDS: Furosemide 40 MG TABLET PO (08:07)
[2023-11-02] MEDS: Cholecalciferol (Vitamin D3) 25 MCG TABLET 50 MCG PO (08:07)
[2023-11-02] MEDS: Atorvastatin Calcium 40 MG TABLET PO (08:07)
[2023-11-02] MEDS: 0.9 % Sodium Chloride Flush 3 ML SYRINGE IVFLUSH ×3 (08:09→15:50)
[2023-11-02] MEDS: Insulin Glargine,Hum.rec.anlog 100 UNIT/ML 10 ML VIAL 56 UNIT SUBCUT (08:10)
[2023-11-02] MEDS: Heparin Sodium,Porcine 5,000 UNIT/ML VIAL 5000 UNIT SUBCUT ×2 (08:10→20:30)
[2023-11-02] MEDS: Nystatin Powder 15 GM BOTTLE 1 APPL TOPICAL ×2 (08:10→20:30)
[2023-11-02] MEDS: Lidocaine 4 % Patch ADH..PATCH 1 PATCH TRANSDERMA (08:10)
[2023-11-02 11:50] LABS: Glucose, Whole Blood 156 mg/dL (60-115)
[2023-11-02] MEDS: Benztropine Mesylate 1 MG TABLET PO ×2 (11:56→20:32)
[2023-11-02] MEDS: Divalproex Sodium ER 250 MG TAB.ER.24H 750 MG PO (11:56)
[2023-11-02] MEDS: Insulin Lispro 100 UNIT/ML 3 ML VIAL SUBCUT (11:56)
[2023-11-02] MEDS: traMADoL HCL 50 MG TABLET PO ×2 (11:56→20:31)
[2023-11-02] MEDS: Multivitamin TABLET 1 TAB PO (11:56)
[2023-11-02] MEDS: acetaZOLAMIDE 250 MG TABLET PO ×2 (11:56→20:31)
[2023-11-02] MEDS: atenoloL 50 MG TABLET PO (11:57)
[2023-11-02] MEDS: cefTRIAXone sodium 1 GM in 0.9 % Sodium Chloride 50 ML IV (11:59)
[2023-11-02] MEDS: Sodium Phosphate,Mono-Dibasic 133 ML ENEMA PR (12:15)
--- NOTE | 2023-11-02 12:35 | P.PNIM_ITS ---
Subjective Subjective Date of Service: 11/02/23 Interval History: Seen and examined this morning Follow-up for right ankle fracture, possible UTI Pain controlled, no shortness of breath, reporting constipation Review of Systems Review of Systems: Yes all other systems are reviewed and are negative Constitutional Constitutional: Denies chills Cardiovascular Cardiovascular: Denies chest pain Physical Exam 2 Vital Signs: Vital Signs: Last Vital Signs Temp 97.9 F 11/02/23 11:31 Pulse 106 H 11/02/23 11:31 Resp 20 11/02/23 11:31 BP 114/66 11/02/23 11:31 Pulse Ox 95 11/02/23 11:31 O2 Del Method Nasal Cannula 11/02/23 11:31 O2 Flow Rate 6 11/02/23 11:31 BMI result Body Mass Index 79.5 Const: General: cooperative, comfortable, alert and awake Nutritional Appearance: obese Orientation/consciousness: patient oriented x3 Resp: Other: dim Effort & Inspection: normal respiratory effort, able to speak in complete sentences, no respiratory distress and no use of accessory muscles Cardio: Rate: regular rate GI: Inspection: No distended and Yes obesity Palpation (GI): Soft to palpation and nontender : Other: Chambers in place draining clear yellow urine Neuro: General: patient oriented x3 and moves all extremities Extrem: Other: RLE splint in place, toes warm Objective Data Active Medications Acetaminophen (Acetaminophen 325 Mg Tablet) 650 mg PO Q6H PRN PRN Reason: Pain, Mild (Pain Scale 1-3), fever or headache Last Admin: 11/02/23 01:34 Dose: 650 mg Documented By: JOSE Acetazolamide (Acetazolamide 250 Mg Tablet) 250 mg PO BID [facility] Stop: 11/04/23 11:34 Last Admin: 11/02/23 11:56 Dose: 250 mg Documented By: LAURA Albuterol Sulfate (Albuterol Sulfate 90 Mcg 8 Gm Inhaler) 2 puff INHALE Q4H PRN PRN Reason: Shortness Of Breath Or Wheezing Amitriptyline HCl (Amitriptyline Hcl 10 Mg Tablet) 10 mg PO BEDTIME [facility] Last Admin: 11/01/23 20:30 Dose: 10 mg Documented By: JOSE Atenolol (Atenolol 50 Mg Tablet) 50 mg PO DAILY@1200 [facility]; Protocol Last Admin: 11/02/23 11:57 Dose: 50 mg Documented By: LAURA Atorvastatin Calcium (Atorvastatin Calcium 40 Mg Tablet) 40 mg PO DAILY [facility] Last Admin: 11/02/23 08:07 Dose: 40 mg Documented By: LAURA Benztropine Mesylate (Benztropine Mesylate 1 Mg Tablet) 1 mg PO BID@1200,2100 [facility] Last Admin: 11/02/23 11:56 Dose: 1 mg Documented By: LAURA Bisacodyl (Bisacodyl 5 Mg Tablet.Dr) 10 mg PO DAILY [facility] Last Admin: 11/02/23 11:52 Dose: Not Given Documented By: LAURA Non-Admin Reason: Patient Refused Calcium Carbonate (Calcium Carbonate 750 Mg Tab.Chew) 750 mg PO Q4H PRN PRN Reason: Heartburn Divalproex Sodium (Divalproex Sodium Er 250 Mg Tab.Er.24h) 750 mg PO DAILY@1200 [facility] Last Admin: 11/02/23 11:56 Dose: 750 mg Documented By: LAURA Divalproex Sodium (Divalproex Sodium Er 500 Mg Tab.Er.24h) 1,000 mg PO BEDTIME [facility] Last Admin: 11/01/23 20:32 Dose: 1,000 mg Documented By: JOSE Docusate Sodium (Docusate Sodium 100 Mg Capsule) 100 mg PO DAILY PRN PRN Reason: Constipation Folic Acid (Folic Acid 1 Mg Tablet) 1 mg PO DAILY [facility] Last Admin: 11/02/23 08:07 Dose: 1 mg Documented By: LAURA Furosemide (Furosemide 40 Mg Tablet) 40 mg PO DAILY [facility]; Protocol Last Admin: 11/02/23 08:07 Dose: 40 mg Documented By: LAURA Glucose (Glucose Gel 15 Gm Gel..Gram.) 15 gm PO Q15M PRN; Protocol PRN Reason: per Hypoglycemia Standing Ord. Heparin Sodium (Porcine) (Heparin Sodium,Porcine 5,000 Unit/Ml Vial) 5,000 unit SUBCUT Q12H [facility] Last Admin: 11/02/23 08:10 Dose: 5,000 unit Documented By: LAURA Hydroxyzine HCl (Hydroxyzine Hcl 50 Mg Tablet) 50 mg PO TID PRN PRN Reason: Anxiety Last Admin: 11/01/23 20:47 Dose: 50 mg Documented By: JOSE Dextrose (D10) 250 mls @ 750 mls/hr IV Q15M PRN; Protocol PRN Reason: per Hypoglycemia Standing Ord. Ceftriaxone Sodium 1 gm/ (Sodium Chloride) 50 mls @ 100 mls/hr IV Q24H [facility] Last Admin: 11/02/23 11:59 Dose: 100 mls/hr Documented By: LAURA Insulin Glargine (Insulin Glargine,Hum.Rec.Anlog 100 Unit/Ml 10 Ml Vial) 56 unit SUBCUT DAILY [facility] Last Admin: 11/02/23 08:10 Dose: 56 unit Documented By: LAURA Insulin Human Lispro (Insulin Lispro 100 Unit/Ml 3 Ml Vial) 0 unit SUBCUT QIDACHS [facility]; Protocol Last Admin: 11/02/23 11:56 Dose: 2 unit Documented By: LAURA Levothyroxine Sodium (Levothyroxine Sodium 150 Mcg Tablet) 150 mcg PO DAILY@0600 [facility] Last Admin: 11/02/23 04:54 Dose: 150 mcg Documented By: KARISHMA Lidocaine (Lidocaine 4 % Patch Adh..Patch) 1 patch TRANSDERMA DAILY [facility] Last Admin: 11/02/23 08:10 Dose: 1 patch Documented By: LAURA Lisinopril (Lisinopril 10 Mg Tablet) 10 mg PO BEDTIME [facility]; Protocol Last Admin: 11/01/23 20:32 Dose: 10 mg Documented By: JOSE Loratadine (Loratadine 10 Mg Tablet) 10 mg PO DAILY PRN PRN Reason: allergies Lorazepam (Lorazepam 1 Mg Tablet) 1 mg PO DAILY PRN PRN Reason: panic attack Lurasidone HCl (Lurasidone Hcl 20 Mg Tablet) 60 mg PO DAILY@0700 [facility] Last Admin: 11/02/23 08:07 Dose: 60 mg Documented By: LAURA Magnesium Hydroxide (Milk Of Magnesia 30 Ml Oral.Susp) 30 ml PO DAILY PRN PRN Reason: Constipation Melatonin (Melatonin 3 Mg Tablet) 6 mg PO BEDTIME PRN PRN Reason: Insomnia Montelukast Sodium (Montelukast Sodium 10 Mg Tablet) 10 mg PO BEDTIME [facility] Last Admin: 11/01/23 20:32 Dose: 10 mg Documented By: JOSE Multivitamins/Vitamin C (Multivitamin Tablet) 1 tab PO DAILY@1200 [facility] Last Admin: 11/02/23 11:56 Dose: 1 tab Documented By: LAURA Nicotine Polacrilex (Nicotine Polacrilex 2 Mg Gum) 4 mg BUCCAL Q2H PRN PRN Reason: Nicotine Cravings Last Admin: 11/02/23 11:56 Dose: 4 mg Documented By: LAURA Nystatin (Nystatin Powder 15 Gm Bottle) 1 appl TOPICAL BID [facility]; Protocol Last Admin: 11/02/23 08:10 Dose: 1 appl Documented By: LAURA Ondansetron HCl (Ondansetron Hcl 4 Mg/2 Ml Vial) 4 mg IVPUSH Q8H PRN PRN Reason: Nausea and Vomiting Polyethylene Glycol (Polyethylene Glycol 3350 17 Gm Powd.Pack) 17 gm PO DAILY PRN PRN Reason: Constipation Prazosin HCl (Prazosin Hcl 1 Mg Capsule) 1 mg PO BEDTIME [facility]; Protocol Last Admin: 11/01/23 20:47 Dose: 1 mg Documented By: JOSE Prazosin HCl (Prazosin Hcl 5 Mg Capsule) 5 mg PO BEDTIME [facility] Last Admin: 11/01/23 20:47 Dose: 5 mg Documented By: JOSE Quetiapine Fumarate (Quetiapine Fumarate 100 Mg Tablet) 100 mg PO DAILY@1200 PRN PRN Reason: anxiety Quetiapine Fumarate (Quetiapine Fumarate 300 Mg Tablet) 600 mg PO BEDTIME [facility] Last Admin: 11/01/23 20:30 Dose: 600 mg Documented By: JOSE Sodium Chloride (0.9 % Sodium Chloride Flush 3 Ml Syringe) 3 ml IVFLUSH QSHIFT [facility] Last Admin: 11/02/23 08:09 Dose: 3 ml Documented By: LAURA Tramadol HCl (Tramadol Hcl 50 Mg Tablet) 50 mg PO Q6H PRN PRN Reason: Pain, Severe (Pain Scale 7-10) Last Admin: 11/02/23 11:56 Dose: 50 mg Documented By: LAURA Vitamin D (Cholecalciferol (Vitamin D3) 25 Mcg Tablet) 50 mcg PO DAILY [facility] Last Admin: 11/02/23 08:07 Dose: 50 mcg Documented By: LAURA Labs 11/02/23 06:16 11/02/23 06:16 Labs: Laboratory Results - last 24 hr 11/01/23 11/01/23 11/01/23 03:35 13:42 14:58 MCV MCH MCHC RDW Plt Count MPV Absolute Nucleated RBC Nucleated RBC % (auto) Anion Gap Estim Creat Clear Calc Estimated GFR POC Glucose 155 H Random Glucose Calcium Total Bilirubin AST ALT Alkaline Phosphatase Total Protein Albumin Ur Random Sodium 49.0 < 20.0 Ur Random Potassium 14.8 17.6 Ur Random Chloride 50.0 < 20.0 11/01/23 11/01/23 11/02/23 17:56 20:51 06:16 MCV 82.2 MCH 26.9 L MCHC 32.8 RDW 14.1 Plt Count 270 MPV 10.8 Absolute Nucleated RBC 0.000 Nucleated RBC % (auto) 0.0 Anion Gap 11 L Estim Creat Clear Calc 138.0 Estimated GFR > 60 POC Glucose 129 H 133 H Random Glucose 121 H Calcium 9.4 Total Bilirubin 0.2 AST 21 ALT 14 Alkaline Phosphatase 56 Total Protein 6.7 Albumin 3.9 Ur Random Sodium Ur Random Potassium Ur Random Chloride 11/02/23 11/02/23 07:18 11:41 MCV MCH MCHC RDW Plt Count MPV Absolute Nucleated RBC Nucleated RBC % (auto) Anion Gap Estim Creat Clear Calc Estimated GFR POC Glucose 126 H 156 H Random Glucose Calcium Total Bilirubin AST ALT Alkaline Phosphatase Total Protein Albumin Ur Random Sodium Ur Random Potassium Ur Random Chloride Microbiology Microbiology Results: Microbiology 11/01/23 05:30 Blood Culture - Preliminary Blood - Venous No growth after 24 hours. 11/01/23 05:16 Blood Culture - Preliminary Blood - Venous No growth after 24 hours. Assessment and Plan (1) Fracture of right ankle: Status: Acute (2) Hypercapnia: Status: Acute (3) UTI (urinary tract infection): Status: Acute Plan 53 year old women admitted for ankle fracture after a fall at home and also noted to have UTI Fall, ankle fx due to mechanical fall imaging showing comminuted fx of distal fibula pain control as needed seen by orthopedic surgery> no surgical intervention, NWB RLE, splint, f/u ortho 1-2 weeks will likely need short-term rehab - PT eval pending Acute on chronic respiratory failure with hypoxia and hypercapnia secondary to MORGAN and hypoventilation syndrome from obesity On home oxygen and CPAP 6L at baseline - on baseline supplemental oxygen Continue supplemental oxygen and titrate for oxygen saturation greater than 90% Increasing bicarb UTI Continue IV Rocephin follow urine cx Blood cultures negative to date encephalopathy. Resolved pt verbalizing reports [place] Hyponatremia seems chronic 128 today urine studies pending Follow BMP Mild fungal infection noted under abdominal folds nystatin HTN lasix, atenolol, lisinopril Compensated respiratory acidosis with hx of MORGAN with supermorbid obesity. BMI 79.5 cpap in the ED, continue at bedtime and as needed Discussed importance of weight management as this may be contributing to worsening of other comorbidities acute lactic acidosis likely secondary to MORGAN/breathing treatments no sepsis CKD3 baseline COPD no exacerbation albuterol as needed DM2 ss, ada diet long acting insulin Smoker NRT HLD statin Mental health Hypothyroidism DVT prophylaxis with heparin full code Requires ongoing inpatient stay for safe disposition, management of UTI with IV antibiotics Quality Stroke Does the patient have a stroke diagnosis?: No VTE Prior VTE?: No VTE Risk Level:: Medical - moderate - high VTE Device Contraindication: Treatment Not Indicated VTE Drug Contraindication: N/A - Med Ordered
[2023-11-02 15:49] LABS: Glucose, Whole Blood 146 mg/dL (60-115)
--- NOTE | 2023-11-02 15:59 | MHC.CM.PN ---
PT rec STR, pt. is non wt bearing for 2 weeks. referrals out, none accepting, pt has barriers of increased care needs due to weight and none wt bearing status. CM expanded referral.
[2023-11-02] MEDS: Divalproex Sodium ER 500 MG TAB.ER.24H 1000 MG PO (20:30)
[2023-11-02] MEDS: QUEtiapine Fumarate 300 MG TABLET 600 MG PO (20:31)
[2023-11-02] MEDS: Amitriptyline HCl 10 MG TABLET PO (20:31)
[2023-11-02] MEDS: Prazosin HCL 5 MG CAPSULE PO (20:32)
[2023-11-02] MEDS: Prazosin HCL 1 MG CAPSULE PO (20:32)
[2023-11-02] MEDS: lisinopriL 10 MG TABLET PO (20:32)
[2023-11-02] MEDS: Montelukast Sodium 10 MG TABLET PO (20:33)
[2023-11-02 20:39] LABS: Glucose, Whole Blood 163 mg/dL (60-115)
[2023-11-03] VITALS (9 sets, daily range): BP systolic 93–114; BP diastolic 55–67; PULSE 75–96; RESP 16–20; TEMP 36.1–36.9; O2SAT 92–97
[2023-11-03 07:04] LABS: Anion Gap 16 (12-20); Blood Urea Nitrogen 11 mg/dL (9-16); Calcium 9.7 mg/dL (8.4-10.2); Carbon Dioxide 37 mmol/L (22-29); Chloride 79 mmol/L (96-108); Creatinine Clr Calc Pharmacy 127.2; Estimated Glomerular Filt Rate 57; Glucose Random 136 mg/dL (60-115); Potassium 4.4 mmol/L (3.3-5.1); Sodium 128 mmol/L (135-145)
[2023-11-03 08:18] LABS: Glucose, Whole Blood 127 mg/dL (60-115)
[2023-11-03] MEDS: Heparin Sodium,Porcine 5,000 UNIT/ML VIAL 5000 UNIT SUBCUT ×2 (08:30→16:07)
[2023-11-03] MEDS: Lurasidone HCl 20 MG TABLET 60 MG PO (08:30)
[2023-11-03] MEDS: Folic Acid 1 MG TABLET PO (08:30)
[2023-11-03] MEDS: bisacodyL 5 MG TABLET.DR 10 MG PO (08:31)
[2023-11-03] MEDS: acetaZOLAMIDE 250 MG TABLET PO ×2 (08:31→20:29)
[2023-11-03] MEDS: Furosemide 40 MG TABLET PO (08:31)
[2023-11-03] MEDS: Cholecalciferol (Vitamin D3) 25 MCG TABLET 50 MCG PO (08:31)
[2023-11-03] MEDS: Atorvastatin Calcium 40 MG TABLET PO (08:31)
[2023-11-03] MEDS: Insulin Glargine,Hum.rec.anlog 100 UNIT/ML 10 ML VIAL 56 UNIT SUBCUT (08:31)
[2023-11-03] MEDS: Nystatin Powder 15 GM BOTTLE 1 APPL TOPICAL ×2 (08:33→20:40)
[2023-11-03] MEDS: 0.9 % Sodium Chloride Flush 3 ML SYRINGE IVFLUSH ×3 (08:33→16:07)
[2023-11-03] MEDS: Lidocaine 4 % Patch ADH..PATCH 1 PATCH TRANSDERMA (08:33)
[2023-11-03] MEDS: Nicotine Polacrilex 2 MG GUM 4 MG BUCCAL ×2 (08:42→20:57)
[2023-11-03 11:41] LABS: Glucose, Whole Blood 160 mg/dL (60-115)
[2023-11-03] MEDS: Divalproex Sodium ER 250 MG TAB.ER.24H 750 MG PO (12:02)
[2023-11-03] MEDS: Insulin Lispro 100 UNIT/ML 3 ML VIAL SUBCUT ×2 (12:02→20:30)
[2023-11-03] MEDS: Multivitamin TABLET 1 TAB PO (12:02)
[2023-11-03] MEDS: atenoloL 50 MG TABLET PO (12:02)
[2023-11-03] MEDS: Benztropine Mesylate 1 MG TABLET PO ×2 (12:03→20:29)
[2023-11-03] MEDS: cefTRIAXone sodium 1 GM in 0.9 % Sodium Chloride 50 ML IV (12:03)
[2023-11-03] MEDS: traMADoL HCL 50 MG TABLET PO ×2 (12:09→20:30)
--- NOTE | 2023-11-03 15:02 | HO.PM.IMPN ---
Subjective Subjective Date of Service: 11/03/23 Interval History: Seen and examined this morning Follow-up for right distal fibula fracture No overnight events Remains nonweightbearing, pain controlled Review of Systems Review of Systems: Yes all other systems are reviewed and are negative Constitutional Constitutional: Denies chills and Denies fever(s) Physical Exam Vital Signs: Vital Signs: Last Vital Signs Temp 98 F 11/03/23 11:34 Pulse 79 11/03/23 11:34 Resp 20 11/03/23 11:34 BP 112/65 11/03/23 11:34 Pulse Ox 93 11/03/23 11:34 O2 Del Method Nasal Cannula 11/03/23 11:34 O2 Flow Rate 6 11/03/23 11:34 FiO2 45 11/03/23 03:58 BMI result Body Mass Index 79.5 Const: General: cooperative, comfortable, alert and awake Nutritional Appearance: obese Orientation/consciousness: patient oriented x3 Resp: Other: dim Effort & Inspection: normal respiratory effort, able to speak in complete sentences, no respiratory distress and no use of accessory muscles Cardio: Rate: regular rate GI: Inspection: No distended and Yes obesity Palpation (GI): Soft to palpation and nontender : Other: Chambers in place draining clear yellow urine Neuro: General: patient oriented x3 and moves all extremities Extrem: Other: RLE splint in place, toes warm Objective Data Active Medications Acetaminophen (Acetaminophen 325 Mg Tablet) 650 mg PO Q6H PRN PRN Reason: Pain, Mild (Pain Scale 1-3), fever or headache Last Admin: 11/02/23 01:34 Dose: 650 mg Documented By: JOSE Acetazolamide (Acetazolamide 250 Mg Tablet) 250 mg PO BID [facility] Stop: 11/04/23 11:34 Last Admin: 11/03/23 08:31 Dose: 250 mg Documented By: KVNG Albuterol Sulfate (Albuterol Sulfate 90 Mcg 8 Gm Inhaler) 2 puff INHALE Q4H PRN PRN Reason: Shortness Of Breath Or Wheezing Amitriptyline HCl (Amitriptyline Hcl 10 Mg Tablet) 10 mg PO BEDTIME [facility] Last Admin: 11/02/23 20:31 Dose: 10 mg Documented By: JOSE Atenolol (Atenolol 50 Mg Tablet) 50 mg PO DAILY@1200 [facility]; Protocol Last Admin: 11/03/23 12:02 Dose: 50 mg Documented By: KVNG Atorvastatin Calcium (Atorvastatin Calcium 40 Mg Tablet) 40 mg PO DAILY [facility] Last Admin: 11/03/23 08:31 Dose: 40 mg Documented By: KVNG Benztropine Mesylate (Benztropine Mesylate 1 Mg Tablet) 1 mg PO BID@1200,2100 [facility] Last Admin: 11/03/23 12:03 Dose: 1 mg Documented By: KVNG Bisacodyl (Bisacodyl 5 Mg Tablet.Dr) 10 mg PO DAILY [facility] Last Admin: 11/03/23 08:31 Dose: 10 mg Documented By: KVNG Calcium Carbonate (Calcium Carbonate 750 Mg Tab.Chew) 750 mg PO Q4H PRN PRN Reason: Heartburn Divalproex Sodium (Divalproex Sodium Er 250 Mg Tab.Er.24h) 750 mg PO DAILY@1200 [facility] Last Admin: 11/03/23 12:02 Dose: 750 mg Documented By: KVNG Divalproex Sodium (Divalproex Sodium Er 500 Mg Tab.Er.24h) 1,000 mg PO BEDTIME [facility] Last Admin: 11/02/23 20:30 Dose: 1,000 mg Documented By: JOSE Docusate Sodium (Docusate Sodium 100 Mg Capsule) 100 mg PO DAILY PRN PRN Reason: Constipation Folic Acid (Folic Acid 1 Mg Tablet) 1 mg PO DAILY [facility] Last Admin: 11/03/23 08:30 Dose: 1 mg Documented By: KVNG Furosemide (Furosemide 40 Mg Tablet) 40 mg PO DAILY [facility]; Protocol Last Admin: 11/03/23 08:31 Dose: 40 mg Documented By: KVNG Glucose (Glucose Gel 15 Gm Gel..Gram.) 15 gm PO Q15M PRN; Protocol PRN Reason: per Hypoglycemia Standing Ord. Heparin Sodium (Porcine) (Heparin Sodium,Porcine 5,000 Unit/Ml Vial) 5,000 unit SUBCUT Q12H [facility] Last Admin: 11/03/23 08:30 Dose: 5,000 unit Documented By: KVNG Hydroxyzine HCl (Hydroxyzine Hcl 50 Mg Tablet) 50 mg PO TID PRN PRN Reason: Anxiety Last Admin: 11/01/23 20:47 Dose: 50 mg Documented By: JOSE Dextrose (D10) 250 mls @ 750 mls/hr IV Q15M PRN; Protocol PRN Reason: per Hypoglycemia Standing Ord. Ceftriaxone Sodium 1 gm/ (Sodium Chloride) 50 mls @ 100 mls/hr IV Q24H [facility] Last Infusion: 11/03/23 12:33 Dose: Infused Documented By: KVNG Insulin Glargine (Insulin Glargine,Hum.Rec.Anlog 100 Unit/Ml 10 Ml Vial) 56 unit SUBCUT DAILY [facility] Last Admin: 11/03/23 08:31 Dose: 56 unit Documented By: KVNG Insulin Human Lispro (Insulin Lispro 100 Unit/Ml 3 Ml Vial) 0 unit SUBCUT QIDACHS [facility]; Protocol Last Admin: 11/03/23 12:02 Dose: 2 unit Documented By: KVNG Levothyroxine Sodium (Levothyroxine Sodium 150 Mcg Tablet) 150 mcg PO DAILY@0600 [facility] Last Admin: 11/03/23 06:46 Dose: Not Given Documented By: JOSE Non-Admin Reason: Patient Refused Lidocaine (Lidocaine 4 % Patch Adh..Patch) 1 patch TRANSDERMA DAILY [facility] Last Admin: 11/03/23 08:33 Dose: 1 patch Documented By: KVNG Lisinopril (Lisinopril 10 Mg Tablet) 10 mg PO BEDTIME [facility]; Protocol Last Admin: 11/02/23 20:32 Dose: 10 mg Documented By: JOSE Loratadine (Loratadine 10 Mg Tablet) 10 mg PO DAILY PRN PRN Reason: allergies Lorazepam (Lorazepam 1 Mg Tablet) 1 mg PO DAILY PRN PRN Reason: panic attack Lurasidone HCl (Lurasidone Hcl 20 Mg Tablet) 60 mg PO DAILY@0700 [facility] Last Admin: 11/03/23 08:30 Dose: 60 mg Documented By: KVNG Magnesium Hydroxide (Milk Of Magnesia 30 Ml Oral.Susp) 30 ml PO DAILY PRN PRN Reason: Constipation Melatonin (Melatonin 3 Mg Tablet) 6 mg PO BEDTIME PRN PRN Reason: Insomnia Montelukast Sodium (Montelukast Sodium 10 Mg Tablet) 10 mg PO BEDTIME [facility] Last Admin: 11/02/23 20:33 Dose: 10 mg Documented By: JOSE Multivitamins/Vitamin C (Multivitamin Tablet) 1 tab PO DAILY@1200 [facility] Last Admin: 11/03/23 12:02 Dose: 1 tab Documented By: KVNG Nicotine Polacrilex (Nicotine Polacrilex 2 Mg Gum) 4 mg BUCCAL Q2H PRN PRN Reason: Nicotine Cravings Last Admin: 11/03/23 08:42 Dose: 4 mg Documented By: KVNG Nystatin (Nystatin Powder 15 Gm Bottle) 1 appl TOPICAL BID [facility]; Protocol Last Admin: 11/03/23 08:33 Dose: 1 appl Documented By: KVNG Ondansetron HCl (Ondansetron Hcl 4 Mg/2 Ml Vial) 4 mg IVPUSH Q8H PRN PRN Reason: Nausea and Vomiting Polyethylene Glycol (Polyethylene Glycol 3350 17 Gm Powd.Pack) 17 gm PO DAILY PRN PRN Reason: Constipation Prazosin HCl (Prazosin Hcl 1 Mg Capsule) 1 mg PO BEDTIME [facility]; Protocol Last Admin: 11/02/23 20:32 Dose: 1 mg Documented By: JOSE Prazosin HCl (Prazosin Hcl 5 Mg Capsule) 5 mg PO BEDTIME [facility] Last Admin: 11/02/23 20:32 Dose: 5 mg Documented By: JOSE Quetiapine Fumarate (Quetiapine Fumarate 100 Mg Tablet) 100 mg PO DAILY@1200 PRN PRN Reason: anxiety Quetiapine Fumarate (Quetiapine Fumarate 300 Mg Tablet) 600 mg PO BEDTIME [facility] Last Admin: 11/02/23 20:31 Dose: 600 mg Documented By: JOSE Sodium Chloride (0.9 % Sodium Chloride Flush 3 Ml Syringe) 3 ml IVFLUSH QSHIFT [facility] Last Admin: 11/03/23 08:33 Dose: 3 ml Documented By: KVNG Tramadol HCl (Tramadol Hcl 50 Mg Tablet) 50 mg PO Q6H PRN PRN Reason: Pain, Severe (Pain Scale 7-10) Last Admin: 11/03/23 12:09 Dose: 50 mg Documented By: KVNG Vitamin D (Cholecalciferol (Vitamin D3) 25 Mcg Tablet) 50 mcg PO DAILY [facility] Last Admin: 11/03/23 08:31 Dose: 50 mcg Documented By: KVNG Labs 11/02/23 06:16 11/03/23 06:24 Labs: Laboratory Results - last 24 hr 11/02/23 11/02/23 11/03/23 15:45 20:23 06:24 Anion Gap 16 Estim Creat Clear Calc 127.2 Estimated GFR 57 POC Glucose 146 H 163 H Random Glucose 136 H Calcium 9.7 11/03/23 11/03/23 08:10 11:37 Anion Gap Estim Creat Clear Calc Estimated GFR POC Glucose 127 H 160 H Random Glucose Calcium Microbiology Microbiology Results: Microbiology 11/01/23 Unknown Urine Culture - Preliminary Urine clean catch - Clean Catch Midstream Escherichia coli Streptococcus viridans group 11/01/23 05:30 Blood Culture - Preliminary Blood - Venous No growth after 48 hours. 11/01/23 05:16 Blood Culture - Preliminary Blood - Venous No growth after 48 hours. Assessment and Plan (1) Fracture of right ankle: Status: Acute (2) UTI (urinary tract infection): Status: Acute (3) COPD (chronic obstructive pulmonary disease): Status: Acute Plan 53 year old women admitted for ankle fracture after a fall at home and also noted to have UTI Right distal fibula fracture due to mechanical fall pain control as needed seen by orthopedic surgery> no surgical intervention, NWB RLE (for 6 wks), splint, f/u ortho 1-2 weeks will likely need short-term rehab - PT eval pending Acute on chronic respiratory failure with hypoxia and hypercapnia. resolved secondary to MORGAN and hypoventilation syndrome from obesity On home oxygen and CPAP 6L at baseline - on baseline supplemental oxygen Continue supplemental oxygen and titrate for oxygen saturation greater than 90% Increasing bicarb, started on diamox, now starting to trend down UTI initially treated with IV Rocephin urine cx growing e.coli - concern for ESBL per lab, will change to IV meropenem until cultures finalized Blood cultures negative to date encephalopathy. Resolved mild Hyponatremia seems chronic 129 Follow BMP Mild fungal infection noted under abdominal folds nystatin HTN lasix, atenolol, lisinopril Compensated respiratory acidosis with hx of MORGAN with supermorbid obesity. BMI 79.5 cpap in the ED, continue at bedtime and as needed Discussed importance of weight management as this may be contributing to worsening of other comorbidities acute lactic acidosis likely secondary to MORGAN/breathing treatments no sepsis CKD3 baseline COPD no exacerbation albuterol as needed DM2 ss, ada diet long acting insulin Smoker NRT HLD statin Mental health Hypothyroidism DVT prophylaxis with heparin full code Requires ongoing inpatient stay for safe disposition, management of UTI with IV antibiotics Quality Stroke Does the patient have a stroke diagnosis?: No VTE Prior VTE?: No VTE Risk Level:: Medical - moderate - high VTE Device Contraindication: Treatment Not Indicated VTE Drug Contraindication: N/A - Med Ordered
[2023-11-03 16:04] LABS: Glucose, Whole Blood 150 mg/dL (60-115)
[2023-11-03] MEDS: LORazepam 1 MG TABLET PO (16:08)
[2023-11-03] MEDS: hydrOXYzine HCL 50 MG TABLET PO ×2 (16:08→20:29)
[2023-11-03] MEDS: Melatonin 3 MG TABLET 6 MG PO (19:34)
[2023-11-03] MEDS: Trolamine Salicylate 10 % Cream 85 GM TUBE 1 APPL TOPICAL (19:34)
[2023-11-03] MEDS: Acetaminophen 325 MG TABLET 650 MG PO (19:34)
[2023-11-03] MEDS: Milk of Magnesia 30 ML ORAL.SUSP PO (19:34)
[2023-11-03] MEDS: Docusate Sodium 100 MG CAPSULE PO (19:34)
[2023-11-03] MEDS: polyethylene glycoL 3350 17 GM POWD.PACK PO (19:34)
[2023-11-03 20:20] LABS: Glucose, Whole Blood 204 mg/dL (60-115)
[2023-11-03] MEDS: Simethicone 80 MG TAB.CHEW 160 MG PO (20:26)
[2023-11-03] MEDS: Divalproex Sodium ER 500 MG TAB.ER.24H 1000 MG PO (20:29)
[2023-11-03] MEDS: Prazosin HCL 5 MG CAPSULE PO (20:29)
[2023-11-03] MEDS: Amitriptyline HCl 10 MG TABLET PO (20:29)
[2023-11-03] MEDS: Prazosin HCL 1 MG CAPSULE PO (20:30)
[2023-11-03] MEDS: Calcium Carbonate 750 MG TAB.CHEW PO (20:30)
[2023-11-03] MEDS: Montelukast Sodium 10 MG TABLET PO (20:30)
[2023-11-03] MEDS: lisinopriL 10 MG TABLET PO (20:30)
[2023-11-03] MEDS: QUEtiapine Fumarate 300 MG TABLET 600 MG PO (20:30)
[2023-11-04] MEDS: 0.9 % Sodium Chloride Flush 3 ML SYRINGE IVFLUSH ×2 (00:53→08:31)
[2023-11-04] MEDS: Heparin Sodium,Porcine 5,000 UNIT/ML VIAL 5000 UNIT SUBCUT ×2 (00:54→08:31)
[2023-11-04 03:27] VITALS: BP 104/54; PULSE 82; RESP 16; TEMP 36.8; O2SAT 93
[2023-11-04 03:40] VITALS: PULSE 79; RESP 16; O2SAT 91
[2023-11-04] MEDS: Acetaminophen 325 MG TABLET 650 MG PO (04:59)
[2023-11-04] MEDS: Nicotine Polacrilex 2 MG GUM 4 MG BUCCAL ×2 (05:02→12:06)
[2023-11-04] MEDS: Levothyroxine Sodium 150 MCG TABLET PO (06:28)
[2023-11-04 07:37] VITALS: BP 129/64; PULSE 81; RESP 18; TEMP 36.9; O2SAT 98
[2023-11-04 07:46] LABS: Glucose, Whole Blood 154 mg/dL (60-115)
[2023-11-04] MEDS: Atorvastatin Calcium 40 MG TABLET PO (08:29)
[2023-11-04] MEDS: Cholecalciferol (Vitamin D3) 25 MCG TABLET 50 MCG PO (08:29)
[2023-11-04] MEDS: Folic Acid 1 MG TABLET PO (08:29)
[2023-11-04] MEDS: bisacodyL 5 MG TABLET.DR 10 MG PO (08:29)
[2023-11-04] MEDS: acetaZOLAMIDE 250 MG TABLET PO (08:29)
[2023-11-04] MEDS: Lurasidone HCl 20 MG TABLET 60 MG PO (08:29)
[2023-11-04] MEDS: Furosemide 40 MG TABLET PO (08:29)
[2023-11-04] MEDS: Insulin Glargine,Hum.rec.anlog 100 UNIT/ML 10 ML VIAL 56 UNIT SUBCUT (08:30)
[2023-11-04] MEDS: Insulin Lispro 100 UNIT/ML 3 ML VIAL SUBCUT (08:30)
[2023-11-04] MEDS: Lidocaine 4 % Patch ADH..PATCH 1 PATCH TRANSDERMA (08:32)
[2023-11-04] MEDS: traMADoL HCL 50 MG TABLET PO (08:33)
[2023-11-04] MEDS: Nystatin Powder 15 GM BOTTLE 1 APPL TOPICAL (08:34)
[2023-11-04 11:18] VITALS: BP 108/70; PULSE 75; RESP 17; TEMP 36.2; O2SAT 93
[2023-11-04 11:45] LABS: Glucose, Whole Blood 146 mg/dL (60-115)
--- NOTE | 2023-11-04 11:50 | MHC.CM.PN ---
Addendum entered by Sharon Torres 11/04/23 15:50: BLS arrived with 1 crew. The dispatcher in [place] did not provide the local dispatcher the patient weight; which is 490lbs. 1st crew waiting on site for the 2nd crew with the Bariatric Stretcher. Addendum entered by Sharon Torres 11/04/23 12:33: Transport is booked via BLS 3pm cone picker. [facility] was notified of the referral in [facility], via phone VM as well as spoke with DIRECTOR [employer]ACE[employer]. DC info sent to agency. Original Note: Met with patient to discuss discharge. The patient does not want to go to [facility]. She want to discharge to home with resumption of [employer] services. A referral was sent to the agency to increase home services with SN. Patient will transport via BLS to home today.
[2023-11-04] MEDS: atenoloL 50 MG TABLET PO (11:53)
[2023-11-04] MEDS: Multivitamin TABLET 1 TAB PO (11:54)
[2023-11-04] MEDS: Divalproex Sodium ER 250 MG TAB.ER.24H 750 MG PO (11:54)
[2023-11-04] MEDS: Benztropine Mesylate 1 MG TABLET PO (11:54)
[2023-11-04] MEDS: hydrOXYzine HCL 50 MG TABLET PO (11:58)
[2023-11-04] MEDS: LORazepam 1 MG TABLET PO (11:58)
--- NOTE | 2023-11-04 13:05 | P.DS_ITS ---
DS: Providers Provider Date of Service: 11/04/23 Date of admission: 11/01/23 07:30 Primary care physician: LOUIE Finley Consults: 11/01/23 07:31 Consult to Orthopedics Routine Consulting Provider: [facility] Reason for consultation: ankle fx DS: Diagnosis Discharge Diagnosis (1) Fracture of right ankle: Status: Acute (2) UTI (urinary tract infection): Status: Acute (3) COPD (chronic obstructive pulmonary disease): Status: Acute DS: Summary Hospital Course Hospital Course: History and physical as per admitting provider. 53 year old women admitted after a fall at home. Apparently her boyfriend said that the patient was more weak than usual and seems altered. She was found lying on the ground at her home with a urine odor. According to the patient she fell a few days ago. She had not taken any new medications or street drugs. She stated that she has balance issues because of her weight but does use and cane and walker. She denied recent illness, sick contacts, fever, chills, nausea. She uses cpap at bedtime and during the day as needed. She came in the ED and was encephalopathic. In the ED, chest x-ray negative for consolidation or effusion, imaging of ankle showed comminuted fracture of the distal fibula, sodium 128, initial lactic acid of 2.6, positive urinalysis, barbiturates positive. She was placed on 8 L OxyMask with oxygen saturation of 99%. CPAP placed as well. She received a dose of Rocephin in the ER. Encephalopathy improved. Plan is to admit for acute on chronic respiratory failure and ankle fracture. 53-year-old woman treated for ankle fracture after a mechanical fall. She was noted to have right distal fibula fracture, was seen by Orthopedic surgery with recommendation for no surgical intervention, nonweightbearing for total of 6 weeks, continue wearing splint and follow up with Orthopedics in the office in 1-2 weeks. Patient was also treated for acute on chronic respiratory failure with hypoxia and hypercapnia secondary to MORGAN and obesity hypoventilation syndrome. Patient is on baseline 6 L of oxygen at home and CPAP at nighttime. She was treated with supplemental oxygen and oxygen saturation stayed above 90%. She was started on Diamox for increase in bicarb. She was also treated for urinary tract infection which turned out to be E coli, ESBL. She was initially treated with IV ertapenem and switched to Bactrim which it was sensitive for and will be for total of 14 days. She was noted to have some encephalopathy likely secondary to the respiratory failure but this did improve significantly after admission. Mild fungal infection noted under abdominal folds. Treated with nystatin powder Hypertension. Continue Lasix labetalol lisinopril. Compensated respiratory acidosis with history of MORGAN with super morbid obesity and BMI of 79.5. Continued CPAP at bedtime. Discussed importance of weight management as this may be contributing to worsening of other comorbidities Acute lactic acidosis. Likely secondary to MORGAN/breathing treatments and not sepsis CKD stage 3. At baseline COPD. No exacerbation during hospitalization. Continue albuterol Diabetes mellitus type 2. Continue home medications Smoking. Treated with nicotine replacement therapy during hospitalization. Educated on the importance of smoking cessation Hyperlipidemia. Continue statin Mental health. Continue home medication Time Attestation Discharge Coordination Time (in mins): 40 Quality: Safe Use of Opioids Does Pt have an Active Cancer Diagnosis on the Problem List?: No Quality: Stroke Does the patient have a stroke diagnosis?: No Physical Exam Vital Signs: Vital Signs: Last Vital Signs Temp 97.2 F 11/04/23 11:18 Pulse 75 11/04/23 11:18 Resp 17 11/04/23 11:18 BP 108/70 11/04/23 11:18 Pulse Ox 93 11/04/23 11:18 O2 Del Method Nasal Cannula 11/04/23 11:18 O2 Flow Rate 7 11/04/23 11:18 FiO2 45 11/03/23 03:58 BMI result Body Mass Index 79.5 Appearing in no acute distress head is normocephalic atraumatic eyes pupils are PERRLA sclera is anicteric mouth throat mucous membranes are intact and moist neck is supple no lymphadenopathy, no JVD noted lung sounds are clear to auscultation heart regular rate rhythm, clear S1, S2 positive bowel sounds, abdomen is soft, nontender, obesity neuro patient is alert x3, no focal deficits DS: Data Data Completed and Pending Completed studies during hospitalization [Text1]: Procedures Assistance with Respiratory Ventilation, Less than 24 Consecutive Hours, Continuous Positive Airway Pressure (09/08/22) Excision of Left Lobe Liver, Percutaneous Approach, Diagnostic (09/08/22) Labs on day of discharge: Laboratory Results - last 24 hr 11/03/23 11/03/23 11/04/23 15:59 20:10 07:36 POC Glucose 150 H 204 H 154 H 11/04/23 11:39 POC Glucose 146 H Preliminary micro results at discharge 11/01/23 05:30 Blood Culture - Preliminary Blood - Venous No growth after 48 hours. 11/01/23 05:16 Blood Culture - Preliminary Blood - Venous No growth after 48 hours. Discharge Plan Discharge Anticipated Discharge Date/Time: 11/04/23 12:52 Patient Disposition: Home Health Service Discharge Diagnosis: ESBL UTI Right distal fibula fracture Acute on chronic respiratory failure with hypoxia and hypercapnia Encephalopathy Hyponatremia Acute lactic acidosis Referrals: [facility] [Outside] - 1 Week Joseluis Fragoso MD [Physician] - 1 Week Toyin Pollard FNP [Primary Care Provider] - 1 Week Discharge Medications: New sulfamethoxazole-trimethoprim [Bactrim DS] 800-160 mg tablet 1 tab PO BID Qty: 28 0RF Continued (DME) Ankle Brace Misc See Rx Instructions .ROUTE .MEDSUPPLY Qty: 1 0RF Rx Instructions: AIRSELECT, STANDARD, MEDIUM (DME) pen needle, diabetic [BD Ultra-Fine Mary Pen Needle] 32 gauge x 5/32 needle See Rx Instructions .ROUTE .MEDSUPPLY Qty: 125 6RF Rx Instructions: As directed four times a day (DME) FreeStyle Todd 3 Sensor Device See Rx Instructions .Route Qty: 2 4RF Rx Instructions: As directed change every 14 days levothyroxine [Tirosint] 150 mcg capsule 150 mcg PO DAILY Qty: 30 4RF (DME) FreeStyle Precision Ronny Strips Strip See Rx Instructions .ROUTE .COMPLEX Qty: 100 5RF Dose Instruction: TEST BLOOD SUGAR 4 TIMES A DAY DIRECTED Rx Instructions: TEST BLOOD SUGAR 4 TIMES A DAY DIRECTED (DME) FreeStyle Todd 2 Sensor Kit See Rx Instructions .ROUTE .COMPLEX Qty: 2 5RF Dose Instruction: USE DIRECTED CHANGE EVERY 14 DAYS Rx Instructions: USE DIRECTED CHANGE EVERY 14 DAYS multivitamin Tablet 1 tab PO DAILY@1200 amitriptyline 10 mg Tablet 10 mg PO BEDTIME lisinopril 10 mg Tablet 10 mg PO BEDTIME benztropine 1 mg Tablet 1 mg PO BID@1200,2100 montelukast 10 mg Tablet 10 mg PO BEDTIME furosemide 40 mg tablet 1 tab PO DAILY prazosin 5 mg capsule 1 cap PO BEDTIME folic acid 1 mg tablet 1 tab PO DAILY atenolol 50 mg tablet 50 mg PO DAILY@1200 melatonin 5 mg tablet 10 mg PO BEDTIME PRN (Reason: insomnia) lurasidone [Latuda] 60 mg tablet 60 mg PO DAILY@0700 Rx Instructions: WITH 350 CALORIE MEAL docusate sodium 100 mg Capsule 100 mg PO DAILY PRN (Reason: Constipation) quetiapine 400 mg tablet 600 mg PO BEDTIME Rx Instructions: 1 400MG AND 2 100 MG alendronate 70 mg tablet 1 tab PO MO@0600 hydroxyzine HCl 50 mg tablet 1 tab PO TID PRN (Reason: Anxiety) fluticasone propionate 50 mcg/actuation spray,suspension 1 spray intranasal DAILY PRN (Reason: ALLERGIES) diclofenac sodium 1 % gel 2 g topical BID Protocol: Apply to: Apply to: KNEE, ANKLE, BACK quetiapine 25 mg tablet 100 mg PO DAILY@1200 PRN (Reason: anxiety) lidocaine 5 % Adhesive Patch,Medicated 1 patch TOPICAL DAILY Protocol: Apply to: Apply to: KNEES AND BACK Rx Instructions: leave on most painful area for up to 12 hrs acetaminophen 500 mg Tablet 500 mg PO Q6H PRN (Reason: Pain) nicotine (polacrilex) 4 mg gum 4 mg PO Q2H PRN (Reason: Nicotine Cravings) prazosin 1 mg capsule 1 mg PO BEDTIME Rx Instructions: tdd 6mg divalproex 500 mg tablet extended release 24 hr 1,000 mg PO BEDTIME divalproex 250 mg tablet extended release 24 hr 750 mg PO DAILY@1200 cetirizine 10 mg tablet 10 mg PO DAILY PRN (Reason: allergies) atorvastatin 40 mg tablet 40 mg PO DAILY Mounjaro 7.5 mg/0.5 mL pen injector 7.5 mg subcut MO Nurtec ODT 75 mg tablet,disintegrating 75 mg PO NEEDED nystatin 100,000 unit/gram powder 1 appl topical BID ammonium lactate 12 % lotion 1 appl topical DAILY PRN (Reason: Dry Skin) lorazepam 1 mg tablet 1 mg PO DAILY PRN (Reason: panic attack) albuterol sulfate [Ventolin HFA] 90 mcg/actuation HFA aerosol inhaler 2 puff INHALATION Q4H PRN (Reason: Shortness Of Breath Or Wheezing) insulin glargine U-300 conc [Toujeo Max U-300 SoloStar] 300 unit/mL (3 mL) insulin pen 70 unit subcut DAILY naproxen 500 mg tablet 500 mg PO BID topiramate 50 mg tablet 50 mg PO DAILY tramadol 50 mg tablet 50 mg PO BID PRN (Reason: Pain) Qty: 60 0RF (DME) nebulizers Misc See Rx Instructions .Route Rx Instructions: As directed (DME) Oxygen Home Use Kit See Rx Instructions .Route Rx Instructions: As directed cholecalciferol (vitamin D3) 50 mcg (2,000 unit) tablet 50 mcg PO DAILY Breztri Aerosphere 160-9-4.8 mcg/actuation HFA aerosol inhaler 2 inh inhalation BID 30 Days Qty: 10.7 11RF econazole 1 % cream 1 appl topical BID insulin lispro [Humalog KwikPen Insulin] 100 unit/mL insulin pen 30 unit subcut TIDWMEAL 30 Days Qty: 27 11RF Discharge Orders: Discharge Order (Routine); Ordered 11/04/23 Ordered By: Savannah Morrow Diet: Advance to usual diet Activity on Discharge: As tolerated Stand Alone Forms: Patient Portal Discharge page Print Language: Japanese Care Plan Goals: Nonweightbearing to right lower extremity for 6 weeks Continue splint Follow up with Orthopedics in 1-2 weeks Health Concerns: ESBL UTI Right distal fibula fracture Acute on chronic respiratory failure with hypoxia and hypercapnia Encephalopathy Hyponatremia Acute lactic acidosis Plan of Treatment: Follow-up with primary care provider as needed Take all medications as prescribed Assessment: See discharge summary
[2023-11-04] MEDS: Sulfamethox/Trimeth 800/160 TABLET 1 TAB PO (16:07)
--- NOTE | 2023-11-04 16:12 | W.MHC.F2F ---
Service Date Service Date: 11/04/23 Encounter Date of encounter: 11/04/23 Reasons for Services Signs and symptoms assessed: Right distal fibula fracture Acute on chronic respiratory failure with hypoxia and hypercapnia UTI-ESBL Encephalopathy Reason for assisted: CV/CP assess and/or care Reason for physical therapy: home safety and mobility and therapeutic exercises Homebound: Leaving the home is medically contraindicated at this time without the asist of a device and/or another person due th the listed conditions above and below. Reason homebound: unsteady gait / fall risk, poor balance / fall risk (fibula fracture ) and weakness related to hospital stay Certification: Based on the above findings, I certify that this patient is confined to the home and needs intermittent assisted care, physical therapy and/or speech therapy, or continues to need occupational therapy. The patient is under my care, and I have initiated the establishment of the plan of care. The patient will be followed by a physician who will periodically review the plan of care. Time Spent With Patient Time: Total time managing care of this patient today ____ minutes.
--- OUTSIDE RECORDS SUMMARY | 2023-11-08 05:59 | XMS_ITS | Continuity of Care Document ---
Author Organization [facility] Address [address] [place] [address]- Care Team Providers Care Slubber Runner Name Role Phone Dawson SLOAN, Becka Primary Care Physician [phone] Encounter [facility] Date(s): 06/07/19 - [facility] [address] [place] [address] [facility] Attending Physician: Shy Arora MD Admitting Physician: Ulysses SLOAN, Shy Referring Physician: Antonia BARRETO, Maria Esther Almeida Allergies, Adverse Reactions, Alerts Substance Reaction Severity Status morphine Active Medications albuterol 0.083% inhalation solution USE 1 AMPULE USING A NEBULIZER FOUR TIMES DAILY Start Date: 04/16/19 Status: Ordered atenolol 50 mg oral tablet TAKE 1 TABLET EVERY DAY Start Date: 04/16/19 Status: Ordered benztropine 1 mg oral tablet TAKE 1 TABLET BY MOUTH TWICE DAILY Start Date: 04/16/19 Status: Ordered CPAP Machine See Instructions, # 1 each, Refills 11, Tot. Refills 11, Maintenance, E0601 AutoCPAP 8-20cm A4604 Heated Tubing/Climate line or A7037 Tubing A7038 or A7039 Filters A7036 Chin strap A7046 Humidifier Chamber A7035 Headgear A7027, A7030, A7031, A... Start Date: 07/03/19 Status: Ordered divalproex sodium 500 mg oral tablet, extended release TAKE 1 TABLET BY MOUTH DAILY Start Date: 04/16/19 Status: Ordered escitalopram 10 mg oral tablet TAKE 1 TABLET BY MOUTH EVERY DAY Start Date: 04/16/19 Status: Ordered Flonase 50 mcg/inh nasal spray 2 times a day, 0 Refills, Maintenance, 07/01/19 7:37:00 EDT Start Date: 07/01/19 Status: Ordered hydrOXYzine hydrochloride 50 mg oral tablet TAKE 1 TABLET THREE TIMES DAILY NEEDED Start Date: 04/16/19 Status: Ordered lisinopril 10 mg oral tablet TAKE 1 TABLET BY MOUTH EVERY DAY Start Date: 04/16/19 Status: Ordered Metoprolol ER Metoprolol ER, 25 mg, By Mouth, Daily, Refills 0, Maintenance, 04/16/19 8:31:00 EST, Compound Start Date: 04/16/19 Status: Ordered naproxen sodium 550 mg oral tablet TAKE 1 TABLET BY MOUTH EVERY TWELVE HOURS NEEDED Start Date: 04/16/19 Status: Ordered O2 Sat Monitor See Instructions, # 1 each, Refills 11, Tot. Refills 11, Maintenance, E0570 Nebulizer A7003 Neb Disp Set A7014 Neb non-Disp Filter A7005 Neb Non-Disp set A7015 Aerosol Mask A7013 Neb Disp Filter Length of need: lifetime 99 months Dx:Asthma J45.9... Start Date: 08/19/19 Status: Ordered olanzapine 5 mg oral tablet TAKE 1 TABLET BY MOUTH DAILY Start Date: 04/16/19 Status: Ordered prazosin 2 mg oral capsule TAKE 1 CAPSULE BY MOUTH AT BEDTIME Start Date: 04/16/19 Status: Ordered Spiriva Respimat 1.25 mcg/inh inhalation aerosol 2 puffs, Inhalation, Daily, # 1 each, 5 Refills, Maintenance, 07/03/19 13:50:00 EDT, Aerosol, [facility], asthma j45.9, 168, cm, 07/01/19 7:35:00 EDT, Height Start Date: 07/03/19 Stop Date: 12/30/19 Status: Ordered Symbicort 160mcg/4.5mcg Inhaler INHALE 2 PUFFS TWICE DAILY IN THE MORNING AND IN THE EVENING RINSE MOUTH AFTER USING. Start Date: 04/16/19 Status: Ordered traZODone 100 mg oral tablet TAKE 1 TABLET BY MOUTH AT BEDTIME Start Date: 04/16/19 Status: Ordered Ventolin 90 mcg Inhaler Inhalation, prn, Refills 0, Maintenance, 04/16/19 8:30:00 EST Start Date: 04/16/19 Status: Ordered Problem List Condition Effective Dates Status Health Status Inform ant Anxiety disorder(Confirmed) Active PTSD (post-traumatic stress disorder)(Confirmed) Active Schizoaffective disorder(Confirmed) Active Social History Social History Type Response Tobacco Use: Current smoker. . Sex
--- OUTSIDE RECORDS SUMMARY | 2023-11-08 05:59 | XMS_ITS | Continuity of Care Document ---
Author Organization [facility] Address [address] [address]- Care Team Providers Care Advertising Sales Assistant Name Role Phone Dawson SLOAN, Becka Primary Care Physician Encounter [facility] [place] Date(s): 04/16/19 - 07/31/19 [facility] [address] [place] [id number] [facility] Attending Physician: Mook Sorensne MD Admitting Physician: Mook Sorensen MD Allergies, Adverse Reactions, Alerts Substance Reaction Severity [...] HOURS NEEDED Start Date: 04/16/19 Status: Ordered olanzapine 5 mg oral tablet TAKE 1 TABLET BY MOUTH DAILY Start Date: 04/16/19 Status: Ordered prazosin 2 mg oral capsule TAKE 1 CAPSULE BY MOUTH AT BEDTIME Start Date: 04/16/19 Status: Ordered Spiriva Respimat 1.25 mcg/inh inhalation aerosol 2 puffs, Inhalation, Daily, # 1 each, 5 Refills, Maintenance, 07/03/19 13:50:00 EDT, Aerosol, [facility], asthma j45.9, 168, cm, 07/01/19 7:35:00 [...]
--- OUTSIDE RECORDS SUMMARY | 2023-11-08 05:59 | XMS_ITS | Continuity of Care Document ---
Author Organization [facility] Address [address] [place] [address]- Care Team Providers Care Director [facility] Name Role Phone Becka Osman MD Primary Care Physician [phone] Encounter [facility] [place] Date(s): 10/06/20 - 11/05/20 [facility] [address] [place] [address]- Allergies, Adverse Reactions, Alerts Substance Reaction Severity Status Haldol Active Latex Active metFORMIN Active Medications acetaminophen 325 mg oral tablet 1-2 tablet, By Mouth, Every 4 hours, PRN, pain Start Date: 02/24/20 Status: Ordered albuterol 0.083% inhalation solution USE 1 AMPULE USING A NEBULIZER FOUR TIMES DAILY Start Date: 04/16/19 Status: Ordered amitriptyline 10 mg oral tablet 10 mg, 1, tablet, By Mouth, Daily at bedtime, Refills 0, Maintenance, 02/11/20 8:54:00 EST, Partialfill upon patient request Start Date: 02/11/20 Status: Ordered atenolol 50 mg oral tablet 50 mg, 1, tablet, By Mouth, Daily, Hold for SBP< 100 Start Date: 04/16/19 Status: Ordered atorvastatin 20 mg oral tablet 1 tablet = 20 mg, By Mouth, Daily, Maintenance, 02/24/20 18:42:00 EST, Tablet, Partial fill upon patient request if the prescription is for a schedule II opioid drug. Start Date: 02/24/20 Status: Ordered benztropine 2 mg oral tablet 1 tablet = 2 mg, By Mouth, 2 times a day, Maintenance, 02/24/20 18:34:00 EST, Tablet, Partial fill upon patient request if the prescription is for a schedule II opioid drug. Start Date: 02/24/20 Status: Ordered cholecalciferol 2000 intl units oral capsule 1 capsule = 2,000 International_Units, By Mouth, Daily, Maintenance, 02/24/20 18:34:00 EST, Capsule, Partial fill upon patient request if the prescription is for a schedule II opioid drug. Start Date: 02/24/20 Status: Ordered CPAP Machine See Instructions, # 1 each, Refills 11, Tot. Refills 11, Maintenance, E0601 AutoCPAP 8-20cm A4604 Heated Tubing/Climate line or A7037 Tubing A7038 or A7039 Filters A7036 Chin strap A7046 Humidifier Chamber A7035 Headgear A7027, A7030, A7031, A... Start Date: 07/03/19 Status: Ordered Daily Multiple Vitamins oral tablet 1 tablet, By Mouth, Daily Start Date: 02/24/20 Status: Ordered divalproex sodium 500 mg oral tablet, extended release 1 tablet = 500 mg, By Mouth, Daily, at noon, Maintenance, 02/24/20 18:35:00 EST, ER Tablet, Partialfill upon patient request if the prescription is for a schedule II opioid drug. Start Date: 02/24/20 Status: Ordered DOK sodium 100 mg oral capsule 1 capsule = 100 mg, By Mouth, Daily Start Date: 02/24/20 Status: Ordered escitalopram 10 mg oral tablet 1 tablet = 10 mg, By Mouth, Daily Start Date: 04/16/19 Status: Ordered Flonase 50 mcg/inh nasal spray 2 times a day, 0 Refills, Maintenance, 07/01/19 7:37:00 EDT Start Date: 07/01/19 Status: Ordered folic acid 1 mg oral tablet 1 mg, 1, tablet, By Mouth, Daily, Maintenance, 02/24/20 18:42:00 EST, Partial fill upon patient request if the prescription is for a schedule II opioid drug. Start Date: 02/24/20 Status: Ordered Fosamax 70 mg oral tablet 1 tablet = 70 mg, By Mouth, Every week, # 12 tablet, 0 Refills, Maintenance, 10/15/20 10:02:00 EDT,Tablet, Partial fill upon patient request if the prescription is for a schedule II opioid drug. Start Date: 10/15/20 Status: Ordered furosemide 40 mg oral tablet 40 mg, 1, tablet, By Mouth, Daily, Refills 0, Maintenance, 03/06/20 10:43:00 EST, Partial fill uponpatient request if the prescription is for a schedule II opioid drug. Start Date: 03/06/20 Status: Ordered glimepiride 1 mg oral tablet 1 tablet = 1 mg, By Mouth, Daily in AM, Maintenance, 02/24/20 18:45:00 EST, Tablet, Partial fill upon patient request if the prescription is for a schedule II opioid drug. Start Date: 02/24/20 Status: Ordered hydrOXYzine hydrochloride 50 mg oral tablet 1 tablet = 50 mg, By Mouth, 3 times a day, PRN as needed Start Date: 04/16/19 Status: Ordered Lantus Solostar Pen 100 units/mL subcutaneous solution = 20 units, Subcutaneous Injection, Daily at bedtime, Maintenance, 02/24/20 18:49:00 EST, Solution,Partial fill upon patient request if the prescription is for a schedule II opioid drug. Start Date: 02/24/20 Status: Ordered Latuda = 50 mg, By Mouth, Daily, 0 Refills, Maintenance, 02/11/20 8:40:00 EST, Partial fill upon patient request Start Date: 02/11/20 Status: Ordered levothyroxine 0.137 mg oral tablet 1 tablet = 137 mcg, By Mouth, Daily, Maintenance, 02/24/20 18:37:00 EST, Tablet, Partial fill upon patient request if the prescription is for a schedule II opioid drug. Start Date: 02/24/20 Status: Ordered lisinopril 10 mg oral tablet 10 mg, 1, tablet, By Mouth, Daily Start Date: 04/16/19 Status: Ordered montelukast 10 mg oral tablet 10 mg, 1, tablet, By Mouth, Daily, Maintenance, 02/24/20 18:42:00 EST, Partial fill upon patient request if the prescription is for a schedule II opioid drug. Start Date: 02/24/20 Status: Ordered Nystatin Powder 1 applicator, Topically, 2 times a day, 0 Refills, Maintenance, Powder Start Date: 03/06/20 Status: Ordered prazosin 2 mg oral capsule 2 capsule = 4 mg, By Mouth, Daily at bedtime Start Date: 04/16/19 Status: Ordered QUEtiapine 300 mg oral tablet 1 tablet = 300 mg, By Mouth, Daily at bedtime, Maintenance, 02/24/20 18:42:00 EST, Tablet, Partial fill upon patient request if the prescription is for a schedule II opioid drug. Start Date: 02/24/20 Status: Ordered Spiriva Respimat 1.25 mcg/inh inhalation aerosol 2 puffs, Inhalation, Daily, # 1 each, 5 Refills, Maintenance, 07/03/19 13:50:00 EDT, Aerosol, [facility], asthma j45.9, 168, cm, 07/01/19 7:35:00 EDT, Height Start Date: 07/03/19 Stop Date: 12/30/19 Status: Ordered Symbicort 160mcg/4.5mcg Inhaler INHALE 2 PUFFS TWICE DAILY IN THE MORNING AND IN THE EVENING RINSE MOUTH AFTER USING. Start Date: 04/16/19 Status: Ordered traMADol 50 mg oral tablet 1 tablet = 50 mg, By Mouth, Every 12 hours, PRN for pain, # 30 tablet, 0 Refills, Maintenance, 10/15/20 10:02:00 EDT, Tablet, Partial fill upon patient request if the prescription is for a schedule II opioid drug. Start Date: 10/15/20 Status: Ordered traZODone 50 mg oral tablet 1-2 tablet, By Mouth, Daily at bedtime Start Date: 02/24/20 Status: Ordered Ventolin 90 mcg Inhaler Inhalation, prn, Refills 0, Maintenance, 04/16/19 8:30:00 EST Start Date: 04/16/19 Status: Ordered Vitamin B1 100 mg oral tablet 100 mg, 1, tablet, By Mouth, Daily Start Date: 02/24/20 Status: Ordered Problem List Condition Effective Dates Status Health Status Inform ant Anxiety disorder(Confirmed) Active Sacroiliac joint dysfunction of both sides(Confirmed) Active PTSD (post-traumatic stress disorder)(Confirmed) Active Schizoaffective disorder(Confirmed) Active Social History Social History Type Response Tobacco Use: Current smoker. . Sex
--- OUTSIDE RECORDS SUMMARY | 2023-11-08 05:59 | XMS_ITS | Continuity of Care Document ---
Author Organization [facility] Address [address] [place] [address]- Care Team Providers Care Wet Roaster Name Role Phone Becka Osman MD Primary Care Physician [place] [facility] [place] [id number] Date(s): 06/17/19 - 06/27/[address] [address]- [facility] Attending Physician: Raimundo Duncan Admitting Physician: Raimundo Duncan Referring Physician: AdmtrRaimundo Allergies, Adverse Reactions, Alerts Substance Reaction Severity Status morphine Active Medications albuterol 0.083% inhalation solution USE 1 AMPULE USING A NEBULIZER FOUR TIMES DAILY Start Date: 04/16/19 Status: Ordered atenolol 50 mg oral tablet TAKE 1 TABLET EVERY DAY Start Date: 04/16/19 Status: Ordered benztropine 1 mg oral tablet TAKE 1 TABLET BY MOUTH TWICE DAILY Start Date: 04/16/19 Status: Ordered divalproex sodium 500 mg oral tablet, extended release TAKE 1 TABLET BY MOUTH DAILY Start Date: 04/16/19 Status: Ordered escitalopram 10 mg oral tablet TAKE 1 TABLET BY MOUTH EVERY DAY Start Date: 04/16/19 Status: Ordered hydrOXYzine hydrochloride 50 mg oral [...] AT BEDTIME Start Date: 04/16/19 Status: Ordered Symbicort 160mcg/4.5mcg Inhaler INHALE 2 PUFFS TWICE DAILY IN THE MORNING AND IN THE EVENING RINSE MOUTH AFTER USING. Start Date: 04/16/19 Status: Ordered traZODone 100 mg oral tablet TAKE 1 TABLET BY MOUTH AT BEDTIME Start Date: 04/16/19 Status: Ordered Ventolin 90 mcg Inhaler Inhalation, prn, Refills 0, Maintenance, 04/16/19 8:30:00 EST Start Date: 04/16/19 Status: Ordered Social History Social History Type Response Tobacco Use: Current smoker. . Sex
--- OUTSIDE RECORDS SUMMARY | 2023-11-08 05:59 | XMS_ITS | Continuity of Care Document ---
Author Organization [facility] Address [address] [place] [address]- Care Team Providers Care Substitute Bus Driver Name Role Phone Becka Osman MD Primary Care Physician Encounter [facility] [place] Date(s): 01/25/21 - 06/13/21 [facility] [address] [place] [address]- Attending Physician: Lauren Cheung DO Admitting Physician: Lauren Cheung DO Allergies, Adverse Reactions, Alerts Substance Reaction Severity Status Haldol Active metFORMIN Active Latex Active Medications acetaminophen 325 mg oral tablet [...] 5 Refills, Maintenance, 07/03/19 13:50:00 EDT, Aerosol, [facility], asthma j45.9, 168, cm, 07/01/19 [...] (post-traumatic stress disorder)(Confirmed) Active Schizoaffective disorder(Confirmed) Active Severe obesity(Confirmed) Active Social History Social History Type Response Tobacco Use: Current smoker. . Sex
--- OUTSIDE RECORDS SUMMARY | 2023-11-08 05:59 | XMS_ITS | Continuity of Care Document ---
Author Organization [facility] Address [address] [place] [address]- Care Team Providers Care Insurance Compliance Analyst Name Role Phone Dawson SLOAN, Becka Primary Care Physician [place] [facility] [place]19 - 07/10/19 [facility] [address] [place] [address]- [facility] Encounter Diagnosis Moderate asthma(Discharge Diagnosis) - 07/03/19 MORGAN (obstructive sleep apnea)(Discharge Diagnosis) - 07/03/19 Attending Physician: Molina Rock MD Allergies, Adverse Reactions, Alerts Substance Reaction [...] 5 Refills, Maintenance, 07/03/19 13:50:00 EDT, Aerosol, [facility], asthma j45.9, 168, cm, 07/01/19 [...] (post-traumatic stress disorder)(Confirmed) Active Schizoaffective disorder(Confirmed) Active Diagnosis Diagnosis Type Effective Dates Health Status Cl inical Service Informant Moderate asthma Discharge Diagnosis 07/03/19 Non-Specified MORGAN (obstructive sleep apnea) Discharge Diagnosis 07/03/19 Social History Social History Type Response Tobacco Use: Current smoker. . Sex
--- OUTSIDE RECORDS SUMMARY | 2023-11-08 05:59 | XMS_ITS | Continuity of Care Document ---
Author Organization [facility] Address Unknown Care Team Providers Care Slasher Runner Name Role Phone Dawson SLOAN, Becka Primary Care Physician [phone] [place] [facility] [place] Date(s): 02/24/21 - 06/05/21 [facility] Attending Physician: Jacek SLOAN, Sabi Referring Physician: Atul BARRETO, Toyin Arauz Allergies, Adverse Reactions, Alerts Substance Reaction Severity [...] 5 Refills, Maintenance, 07/03/19 13:50:00 EDT, Aerosol, [facility], asthma j45.9, 168, cm, 07/01/19 [...]
--- OUTSIDE RECORDS SUMMARY | 2023-11-08 05:59 | XMS_ITS | Continuity of Care Document ---
Author Organization [facility] Address Unknown Care Team Providers Care Experimental Outboard Motors Mechanic Name Role Phone Becka Osman MD Primary Care Physician Encounter [facility] [place] Date(s): 03/18/21 - 06/19/21 [facility] Attending Physician: Jacek SLOAN, Sabi Referring Physician: Monse Kinsey DO Allergies, Adverse Reactions, Alerts Substance Reaction Severity Status metFORMIN Active Latex Active Haldol Active Medications acetaminophen 325 mg oral tablet [...] 5 Refills, Maintenance, 07/03/19 13:50:00 EDT, Aerosol, [facility], asthma j45.9, 168, cm, 07/01/19 7:35:00 [...]
--- OUTSIDE RECORDS SUMMARY | 2023-11-08 05:59 | XMS_ITS | Continuity of Care Document ---
Author Organization [facility] Address Unknown Care Team Providers Care Senior Care Provider Name Role Phone Atul BARRETO, Toyin Arauz Primary Care Physicia n Encounter [facility] [place] ACCT R [id number] Date(s): 09/23/21 - 09/30/21 [facility] Attending Physician: Jacek SLOAN, Sabi Referring Physician: Becka Osman MD Allergies, Adverse Reactions, Alerts Substance Reaction [...] 5 Refills, Maintenance, 07/03/19 13:50:00 EDT, Aerosol, [facility], asthma j45.9, 168, cm, 07/01/19 [...] Active Schizoaffective disorder(Confirmed) Active Severe obesity(Confirmed) Active Vital Signs Most recent to oldest [Reference Range]: 1 Height 170 cm (09/23/21 2:52 PM) Pulse Rate [55-90 bpm] 78 bpm (09/23/21 2:52 PM) Blood Pressure [90-138/55-84 mm Hg] 118/ 78mm Hg (09/23/21 2:52 PM) Respiratory Rate [16-30 br/min] 16 br/mi n (09/23/21 2:52 PM) Temperature [96.8-100.4 DegF] 97.8 DegF (09/23/21 2:52 PM) Blood pressure sites Arm, left (09/23/21 2:52 PM) Temperature Route Temporal (09/23/21 2:52 PM) Social History Social History Type Response Tobacco Use: Current smoker. . Other: 2-3 cigarettes per day. Sex
--- OUTSIDE RECORDS SUMMARY | 2023-11-08 05:59 | XMS_ITS | Continuity of Care Document ---
Author Organization [facility] Address [address] [place] [address] [address] [place] [address]- Care Team Providers Care Ring Conductor Name Role Phone Becka Osman MD Primary Care Physician [place] [facility] [place] 05/23/20 [facility] [address] [place] [address]- Attending Physician: Raimundo Duncan Admitting Physician: Raimundo [...] opioid drug. Start Date: 02/24/20 Status: Ordered chlorhexidine topical 0.12% liquid 15 mL = 0.018 Gm, By Mouth, 3 times a day Start Date: 02/24/20 Status: Ordered cholecalciferol 2000 [...] opioid drug. Start Date: 02/24/20 Status: Ordered divalproex sodium 500 mg oral tablet, extended release 2 tablet = 1,000 mg, By Mouth, Daily at bedtime Start Date: 04/16/19 Status: Ordered DOK sodium 100 mg oral [...] opioid drug. Start Date: 02/24/20 Status: Ordered furosemide 40 mg oral tablet 40 mg, 1, tablet, By Mouth, Daily, Refills 0, Maintenance, 03/06/20 10:43:00 EST, Partial fill uponpatient request if the prescription is for a schedule II opioid drug. Start Date: 03/06/20 Status: Ordered glimepiride 1 mg oral tablet 4 tablet = 4 mg, By Mouth, Daily before dinner Start Date: 02/24/20 Status: Ordered glimepiride 1 mg oral tablet [...] USING. Start Date: 04/16/19 Status: Ordered traZODone 50 mg oral tablet [...]
--- OUTSIDE RECORDS SUMMARY | 2023-11-08 05:59 | XMS_ITS | Continuity of Care Document ---
Author Organization [facility] Address [address] [place] [address]- Care Team Providers Care District Superintendent Name Role Phone Atul BARRETO, Toyin Arauz Primary Care Physicia n Encounter [facility] [place] Date(s): 11/28/22 - 12/30/[address] [address]- Attending Physician: Toyin Pollard NP Admitting Physician: Atul BARRETO, Toyin Arauz Referring Physician: Toyin Pollard NP Allergies, Adverse Reactions, Alerts Substance Reaction Severity [...] 5 Refills, Maintenance, 07/03/19 13:50:00 EDT, Aerosol, [facility], asthma j45.9, 168, cm, 07/01/19 [...] Date: 02/24/20 Status: Ordered Problem List Condition Confirmation Course Effective Dates Status H ealt Status Informant Anxiety disorder Confirmed Active Sacroiliac joint dysfunction of both sides Confirmed Active PTSD (post-traumatic stress disorder) Confirmed Active Schizoaffective disorder Confirmed Active Severe obesity Confirmed Active Social History Social History Type Response Tobacco Use: Current smoker. . Other: 2-3 cigarettes per day. Sex Patient Care team information Care Team Personnel Name: Maribell Mcrae RN Position: S RN Member Role: Primary Care Nurse Name: Onesimo Brown RN [facility]: [facility] RN W/OE and Tasks Member Role: Primary Care Nurse Name: Yvette Salmon RN Position: S ED RN W/OE and Tasks Member Role: Primary Care Nurse Name: Atul BARRETO, Toyin Arauz Position: Reference Physician Member Role: PCP Address: Address: [address] [place] [address]- Care Team Related Persons Name: PRATIK HICKS Address: home [address] [place] [address]
--- OUTSIDE RECORDS SUMMARY | 2023-11-08 05:59 | XMS_ITS | Continuity of Care Document ---
Author Organization [facility] Address [address] [place] [address]- Care Team Providers Care Product Handler Name Role Phone Dawson SLOAN, Becka Primary Care Physician [phone] [place] [facility] [place](s): 07/01/19 - 07/08/19 [facility] [address] [place] [address]- [facility] Attending Physician: Molina Rock MD Allergies, Adverse [...] 5 Refills, Maintenance, 07/03/19 13:50:00 EDT, Aerosol, [facility], asthma j45.9, 168, cm, [...] (post-traumatic stress disorder)(Confirmed) Active Schizoaffective disorder(Confirmed) Active Vital Signs Most recent to oldest [Reference Range]: 1 Height 168 cm (07/01/19 7:35 AM) Weight 139.09 kg (07/01/19 7:35 AM) Body Mass Index [18.5-24.99] 49.28 *>HHI* (07/01/19 7:35 AM) Weight Obtained Via Patient/family state d (07/01/19 7:35 AM) Social History Social History Type Response Tobacco Use: Current smoker. . Sex
--- OUTSIDE RECORDS SUMMARY | 2023-11-08 05:59 | XMS_ITS | Continuity of Care Document ---
Author Organization [facility] Address [address] [place] [address]- Care Team Providers Care Waste Salvager Name Role Phone Atul BARRETO, Toyin Arauz Primary Care Physicia n Encounter [facility] Date(s): 11/10/21 - 12/10/21 [facility] [address] [place] [address] Attending Physician: Raimundo Duncan Admitting Physician: AdmRaimundo hernández Referring Physician: AdmtrRaimundo Allergies, Adverse Reactions, Alerts [...] 5 Refills, Maintenance, 07/03/19 13:50:00 EDT, Aerosol, [facility], asthma j45.9, 168, cm, 07/01/19 7:35:00 [...] . Other: 2-3 cigarettes per day. Sex Care Team Personnel Name: Toyin Pollard NP Address: [address] [place] [address]
--- OUTSIDE RECORDS SUMMARY | 2023-11-08 05:59 | XMS_ITS | Continuity of Care Document ---
Author Organization [facility] Address [address] [place] [address]- Care Team Providers Care Tray Setter Name Role Phone Becka Osman MD Primary Care Physician [phone] [facility] [place] Date(s): 06/14/19 - 07/17/19 [facility] [address] [address]- [facility] Attending Physician: Bishnu Dsouza MD Admitting Physician: Bishnu Dsouza MD Referring Physician: Mook Sorensen MD Allergies, Adverse Reactions, [...] 5 Refills, Maintenance, 07/03/19 13:50:00 EDT, Aerosol, [facility], asthma j45.9, 168, cm, 07/01/19 [...]
--- OUTSIDE RECORDS SUMMARY | 2023-11-08 05:59 | XMS_ITS | Continuity of Care Document ---
Author Organization [facility] Address [address] [place] [address]- Care Team Providers Care Grain Sampler Name Role Phone Atul BARRETO, Toyin Arauz Primary Care Physicia n En[place] [facility] [place] Date(s): 10/03/22 - 11/02/[address] [address]- Attending Physician: Jose Foley MD Admitting Physician: Jose Foley MD Referring Physician: Name Jose SLOAN Allergies, Adverse Reactions, Alerts Substance Reaction Severity [...] 5 Refills, Maintenance, 07/03/19 13:50:00 EDT, Aerosol, [facility], asthma j45.9, 168, cm, [...] Condition Confirmation Course Effective Dates Status H ealth Status Informant Anxiety disorder Confirmed Active Sacroiliac [...] Care Nurse Name: Onesimo Brown RN Position: [facility] ED RN W/OE and Tasks Member Role: Primary Care Nurse Name: Yvette Salmon RN Position: [facility] ED RN W/OE and Tasks Member Role: Primary Care Nurse Name: Atul BARRETO, Toyin Arauz Position: Reference Physician Member Role: PCP Address: Address: [address] [place] [address]- Care Team Related Persons Name: PRATIK HICKS Address: home [address] [place] [address]
--- OUTSIDE RECORDS SUMMARY | 2023-11-08 05:59 | XMS_ITS | Continuity of Care Document ---
Author Organization [facility] Address Unknown Care Team Providers Care Station Helper Name Role Phone Atul BARRETO, Toyin Arauz Primary Care Physicia n Encounter [facility] Date(s): 09/23/21 - 10/23/21 [facility] Attending Physician: Raimundo Duncan Admitting Physician: AdmRaimundo [...] 5 Refills, Maintenance, 07/03/19 13:50:00 EDT, Aerosol, [facility], asthma j45.9, 168, cm, 07/01/19 [...]
--- OUTSIDE RECORDS SUMMARY | 2023-11-08 05:59 | XMS_ITS | Continuity of Care Document ---
Author Organization [facility] Address Unknown Care Team Providers Care Dust Collector Ore Crushing Name Role Phone Atul BARRETO, Toyinwilfrid Arauz Primary Care Physicia n En[place] [facility] [place] [id number] Date(s): 05/21/21 - 10/10/21 [facility] Attending Physician: Sabi Read MD Referring Physician: Monse Kinsey DO Allergies, Adverse [...] 5 Refills, Maintenance, 07/03/19 13:50:00 EDT, Aerosol, [facility], asthma j45.9, 168, cm, 07/01/19 [...]
--- OUTSIDE RECORDS SUMMARY | 2023-11-08 05:59 | XMS_ITS | Continuity of Care Document ---
Author Organization [facility] Address [address] [place] [address]- Care Team Providers Care Customer Success Intern Name Role Phone Atul BARRETO, Toyin Arauz Primary Care Physicia n Encounter [facility] [place] Date(s): 01/17/23 - 03/19/[address] [address]- Encounter Diagnosis Morbid (severe) obesity due to excess calories(Final) - Discharge Disposition: A-D/C Home Attending Physician: Toyin Pollard NP Admitting Physician: Toyin Pollard NP Referring Physician: Toyin Pollard NP Allergies, Adverse [...] 5 Refills, Maintenance, 07/03/19 13:50:00 EDT, Aerosol, [facility], asthma j45.9, 168, cm, 07/01/19 7:35:00 [...] Care team information Care Team Personnel Name: Clementina ENRIQUEZ, Maribell Position: [facility] RN Member Role: Primary Care Nurse Name: Onesimo Brown RN Position: [facility] ED RN W/OE and Tasks Member Role: Primary Care Nurse Name: Yvette Salmon RN Position: [facility] ED RN W/OE and Tasks Member Role: Primary Care Nurse Name: Toyin Pollard NP Position: Reference Physician Member Role: PCP Address: Address: [address] [place] [address]- Care Team Related Persons Name: PRATIK HIKCS Address: home [address] [place] [address]
--- OUTSIDE RECORDS SUMMARY | 2023-11-08 05:59 | XMS_ITS | Continuity of Care Document ---
Author Organization [facility] Address [address] [address]- Care Team Providers Care Jamb Cutter Name Role Phone Becka Osman MD Primary Care Physician [phone] En[facility] [place] [id number] Date(s): 10/19/20 - 12/12/20 [facility] [address] [address]- Attending Physician: Felipa Ivory MD Admitting Physician: Felipa Ivory MD Referring Physician: Antonia BARRETO, Maria Esther Almeida [...] 5 Refills, Maintenance, 07/03/19 13:50:00 EDT, Aerosol, [facility], asthma j45.9, 168, cm, [...]
--- OUTSIDE RECORDS SUMMARY | 2023-11-08 05:59 | XMS_ITS | Continuity of Care Document ---
Author Organization [facility] Address [address] [place] [address]- Care Team Providers Care Senior Php Web Developer Name Role Phone Dawson SLOAN, Becka Primary Care Physician [phone] [id number] Date(s[facility] 08/15/19 - 10/11/19 [facility] [address] [place] [address]- [facility] Attending Physician: Natali SLOAN, Donita Admitting Physician: Natali SLOAN, Donita Referring Physician: Antonia BARRETO, Maria Esther Almeida [...] 5 Refills, Maintenance, 07/03/19 13:50:00 EDT, Aerosol, [facility], asthma j45.9, 168, cm, 07/01/19 7:35:00 EDT, Height Start Date: 07/03/19 Stop Date: 12/30/19 Status: Ordered Symbicort 160mcg/4.5mcg Inhaler INHALE 2 PUFFS TWICE DAILY IN THE MORNING AND IN THE EVENING RINSE MOUTH AFTER USING. Start Date: 04/16/19 Status: Ordered Synthroid By Mouth, Daily, Refills 0, Maintenance, 09/27/19 15:39:00 EDT Start Date: 09/27/19 Status: Ordered traMADol 50 mg oral tablet 1 tablet = 50 mg, By Mouth, 3 times a day, 0 Refills, Maintenance, 09/27/19 15:39:00 EDT Start Date: 09/27/19 Status: Ordered traZODone 100 mg oral tablet TAKE 1 TABLET BY MOUTH AT BEDTIME Start Date: 04/16/19 Status: Ordered twice a week for 6-8 weeks twice a week for 6-8 weeks, See Instructions, # 1 each, Refills 0, Tot. Refills 0, Maintenance, Aqua therapy, 09/27/19 16:28:00 EDT, Supply Start Date: 09/27/19 Status: Ordered Ventolin 90 mcg Inhaler Inhalation, prn, Refills 0, Maintenance, 04/16/19 8:30:00 EST Start Date: 04/16/19 Status: Ordered Vitamin D3 = 50 mg, By Mouth, Daily, 0 Refills, Maintenance, 09/27/19 15:38:00 EDT Start Date: 09/27/19 Status: Ordered Problem List Condition Effective Dates Status Health Status Inform ant Anxiety disorder(Confirmed) Active PTSD (post-traumatic stress disorder)(Confirmed) Active Schizoaffective disorder(Confirmed) Active Social History Social History Type Response Tobacco Use: Current smoker. . Sex
--- OUTSIDE RECORDS SUMMARY | 2023-11-08 05:59 | XMS_ITS | Continuity of Care Document ---
Author Organization [facility] Address [address] [place] [address]- Care Team Providers Care Procurement Forester Name Role Phone Atul BARRETO, Toyin Arauz Primary Care Physicia n [place] [facility] [place] 08/25/21 - 12/10/21 [facility] [address] [place] [address] Attending Physician: Ryan Dietz MD Admitting Physician: Ryan Dietz MD Referring Physician: Natanael Sommers MD Allergies, Adverse Reactions, Alerts Substance Reaction [...] Refills, Maintenance, 07/03/19 13:50:00 EDT, Aerosol, [facility], asthma j45.9, 168, cm, 07/01/19 [...] Team Personnel Name: Toyin Pollard NP Address: [address] [place] [address]
--- OUTSIDE RECORDS SUMMARY | 2023-11-08 05:59 | XMS_ITS | Continuity of Care Document ---
Author Organization [facility] Address [address] [address]- Care Team Providers Care Kiosk Sales Representative Name Role Phone Becka Osman MD Primary Care Physician En[place] [facility] [place] Date(s): 11/08/19 - 12/08/19 [facility] [address] [facility] [address] [place] [address]- [facility] Allergies, Adverse Reactions, Alerts Substance Reaction Severity [...] 5 Refills, Maintenance, 07/03/19 13:50:00 EDT, Aerosol, [facility], asthma j45.9, 168, cm, 07/01/19 [...]
--- OUTSIDE RECORDS SUMMARY | 2023-11-08 05:59 | XMS_ITS | Continuity of Care Document ---
Author Organization [facility] Address [address] [address]- Care Team Providers Care Lead Java Software Engineer Name Role Phone Dawson SLOAN, Becka Primary Care Physician Encounter [facility] [place] Date(s): 07/03/19 - 07/13/19 [facility] [address] [address]- [facility] Attending Physician: Raimundo Duncan Admitting Physician: Admtr, Ar8 Referring Physician: Admtr, Ar8 Allergies, Adverse Reactions, Alerts Substance Reaction Severity [...] 5 Refills, Maintenance, 07/03/19 13:50:00 EDT, Aerosol, [facility], asthma j45.9, 168, cm, 07/01/19 [...]
--- OUTSIDE RECORDS SUMMARY | 2023-11-08 05:59 | XMS_ITS | Continuity of Care Document ---
Author Organization [facility] Address [address] [place] [address] ve [address] [place] [address]- Care Team Providers Care Cash Shortage Investigator Name Role Phone Becka Osman MD Primary Care Physician [place] [facility] [place](s): 02/21/20 - 05/23/20 [facility] [address] [place] [address]- Attending Physician: Jacek SLOAN, Sabi Referring Physician: [...] 5 Refills, Maintenance, 07/03/19 13:50:00 EDT, Aerosol, [facility], asthma j45.9, 168, cm, 07/01/19 [...]
--- OUTSIDE RECORDS SUMMARY | 2023-11-08 05:59 | XMS_ITS | Continuity of Care Document ---
Author Organization [facility] Address [address] [place] [address]- Care Team Providers Care Mis Manager Name Role Phone Becka Osman MD Primary Care Physician [place] [facility] [place](s): 04/16/19 - 08/14/19 [facility] [address] [address]- [facility] Attending Physician: Bishnu Dsouza MD Admitting Physician: [...] 5 Refills, Maintenance, 07/03/19 13:50:00 EDT, Aerosol, [facility], asthma j45.9, 168, cm, [...]
--- OUTSIDE RECORDS SUMMARY | 2023-11-08 05:59 | XMS_ITS | Continuity of Care Document ---
Author Organization [facility] Address [address] [address]- Care Team Providers Care Paraoptometric Name Role Phone Becka Osman MD Primary Care Physician Encounter [facility] [place]s): 11/12/20 - 12/12/20 [facility] [address] [facility] [address] [place] [id number] Attending Physician: Raimundo Duncan Admitting Physician: Raimundo [...] 5 Refills, Maintenance, 07/03/19 13:50:00 EDT, Aerosol, [facility], asthma j45.9, 168, cm, 07/01/19 [...]
--- OUTSIDE RECORDS SUMMARY | 2023-11-08 05:59 | XMS_ITS | Continuity of Care Document ---
Author Organization [facility] Address [address] [address]- Care Team Providers Care Preparation Room Manager Name Role Phone Dawson SLOAN, Becka Primary Care Physician Encounter [facility] [place] Date(s): 08/19/19 - 09/18/19 [facility] [address] [place] [address]- [facility] Attending Physician: Raimundo Duncan Admitting Physician: Admtr, [...] 5 Refills, Maintenance, 07/03/19 13:50:00 EDT, Aerosol, [facility], asthma j45.9, 168, cm, 07/01/19 [...]
--- OUTSIDE RECORDS SUMMARY | 2023-11-08 05:59 | XMS_ITS | Continuity of Care Document ---
Author Organization [facility] Address [address] [place] [address]- Care Team Providers Care Electroplating Technician Name Role Phone Atul BARRETO, Toyin Arauz Primary Care Physicia n Encounter [facility] [place] Date(s): 08/06/21 - 11/14/21 [facility] [address] [place] [address]- Attending Physician: Lauren Cheung DO Admitting Physician: [...] 5 Refills, Maintenance, 07/03/19 13:50:00 EDT, Aerosol, [facility], asthma j45.9, 168, cm, 07/01/19 [...] Team Personnel Name: Toyin Pollard NP Address: [address] [place] [address]
--- OUTSIDE RECORDS SUMMARY | 2023-11-08 05:59 | XMS_ITS | Continuity of Care Document ---
Author Organization [facility] ter Address [address] [place] [address]- Care Team Providers Care Wood Heel Finisher Name Role Phone Dawson SLOAN, Becka Primary Care Physician [phone] Encounter [facility] [place] Date(s): 04/16/19 - 07/03/[address] [address]- [facility] Attending Physician: Mook Sorensen MD Admitting Physician: Mook Sorensen MD Referring Physician: Mook Sorensen MD Allergies, [...] 5 Refills, Maintenance, 07/03/19 13:50:00 EDT, Aerosol, [facility], asthma j45.9, 168, cm, [...]
--- OUTSIDE RECORDS SUMMARY | 2023-11-08 05:59 | XMS_ITS | Continuity of Care Document ---
Author Organization [facility] Address [address] [place] [address]- Care Team Providers Care Wool Mixer Name Role Phone Atul BARRETO, Toyin Arauz Primary Care Physicia n Encounter [facility] [place] Date(s): 01/17/23 - 02/16/[address] [address]- Attending Physician: Raimundo Duncan Admitting Physician: AdmtrRaimundo Referring Physician: Admtr, Ar8 Allergies, Adverse Reactions, [...] 5 Refills, Maintenance, 07/03/19 13:50:00 EDT, Aerosol, [facility], asthma j45.9, 168, cm, 07/01/19 [...] Care Nurse Name: Onesimo Brown RN Position: S ED RN W/OE and Tasks Member Role: Primary Care Nurse Name: Yvette Salmon RN Position: [facility] ED RN W/OE and Tasks Member Role: Primary Care Nurse Name: Atul BARRETO, Toyin Arauz Position: Reference Physician Member Role: PCP Address: Address: [address] [place] [address]- Care Team Related Persons Name: PRATIK HICKS Address: home [address] [place] [address]
--- OUTSIDE RECORDS SUMMARY | 2023-11-08 06:00 | XMS_ITS | Continuity of Care Document ---
Author Organization [facility] ter Address [address] [place] [address]- Care Team Providers Care Component Design Engineer Name Role Phone Becka Osman MD Primary Care Physician Encounter [facility] Date(s): 02/24/20 - 03/06/[address] [address]- Encounter Diagnosis Fall(Final) - 02/24/20 Fall(Final) - 02/25/20 Discharge Disposition: A-Transfer SNF Attending Physician: Nicolasa Chan MD Admitting Physician: Bello Fernandez DO Referring Physician: Not on Staff, Referring MD Allergies, Adverse Reactions, Alerts Substance Reaction [...] Maintenance, Powder Start Date: 03/06/20 Status: Ordered oxyCODONE 5 mg oral tablet 5 mg, Tablet, By Mouth, Every 4 hours, PRN for Pain , Moderate, Routine, 02/24/20 18:53:00 EST Start Date: 02/24/20 Stop Date: 03/07/20 Status: Discontinued oxyCODONE 5 mg oral tablet 5 mg, 1, tablet, By Mouth, Every 4 hours, PRN, for 5 days, # 20 tablet, Refills 0, Tot. Refills 0, Acute 03/11/20 11:09:00 EST, pain, 03/06/20 11:09:00 EST, Print Requisition, Partial fill upon patient request if the prescription is for a schedule II... Start Date: 03/06/20 Stop Date: 03/11/20 Status: Ordered prazosin 2 mg oral capsule [...] 5 Refills, Maintenance, 07/03/19 13:50:00 EDT, Aerosol, [facility], asthma j45.9, 168, cm, 07/01/19 [...] (post-traumatic stress disorder)(Confirmed) Active Schizoaffective disorder(Confirmed) Active Results Radiology Reports * Exam Date Time Procedure Performing Provider Status 03/03/20 2:40 PM Ankle Min 3 Views Left Theodore Christian; Auth (Verified) Notes: (Ankle Min 3 Views Left) Reason For Exam: Other: RESULT: Ankle Min 3 Views Left Ankle Min 3 Views Left Reason: Other:; Clinical Question(s): Position Fixation. COMPARISON: Left ankle radiographs dated and . FINDINGS: An overlying splint partially layers bony detail. Again seen is a medial malleolar fracture which appears comminuted with displacement some of the fracture fragments. There is a distal fibular diaphyseal fracture with near anatomic alignment. There is unchanged mild displacement of a fracture through the posterior malleolus. A small fracture fragment is also seen anterior to the tibial plafond. No evidence of tibiotalar dislocation. Soft tissue swelling is seen lateral greater than medial malleoli, decreased as compared to the prior exam. IMPRESSION: Trimalleolar fracture as above with the widening of the ankle mortise and no evidence of tibiotalardistal at this time. WSN: [id number] Ordering Physician: Shelly Mansfield Dictated By: Sobia Ramos MD Dictated Date/Time: 03/03/20 2:50 pm Reviewed By: Sobia Ramos MD Signed By: Sobia Ramos MD Signed Date/Time: 03/03/20 2:50 pm Transcribed By: JAE Transcribed Date/Time: 03/03/20 2:46 pm * Exam Date Time Procedure Performing Provider Status 02/27/20 11:46 AM Chest Portable EkCandi kaur ; Auth (Verified) Notes: (Chest Portable) Reason For Exam: CHF RESULT: Chest Portable Chest Portable Reason: CHF; Clinical Question(s): CHF COMPARISON: 02/25/2020 FINDINGS: LINES AND TUBES: None. LUNGS AND PLEURA: Improved aeration of the lungs. No pleural effusion. No pneumothorax. HEART, MEDIASTINUM AND DELMI: Heart is normal in size. Normal upper mediastinal and hilar contour. BONES AND SOFT TISSUES: Unchanged right clavicle fracture. IMPRESSION: Improving pulmonary aeration. WSN: [id number] Ordering Physician: Tyshawn Handley Dictated By: July Aiken MD Dictated Date/Time: 02/27/20 2:31 pm Reviewed By: July Aiken MD Signed By: July Aiken MD Signed Date/Time: 02/27/20 2:31 pm Transcribed By: JAE Transcribed Date/Time: 02/27/20 2:30 pm * Exam Date Time Procedure Performing Provider Status 02/25/20 1:16 PM Chest Portable Grelha , Trish; Auth (V erified) Notes: (Chest Portable) Reason For Exam: Persistent hypoxia;Shortness of Breath RESULT: Chest Portable Chest Portable REASON: Acute CHF exacerbation COMPARISON: 02/24/2020. FINDINGS: LINES AND TUBES: None. LUNGS AND PLEURA: Partial resolution of bilateral airspace disease. Residual right perihilar and peripheral lung opacities, although, improved since yesterday morning. Elevated right hemidiaphragm. No obvious pleural effusion, although, right effusion difficult to completely exclude. No pneumothorax or other airleak complications. HEART, MEDIASTINUM AND DELMI: Unchanged. No gross cardiomegaly. BONES AND SOFT TISSUES: Acute, mildly comminuted right distal clavicular fracture. Anterior displacement of distal fracturefragment by greater than the shaft diameter. No other fracture appreciated on this single view portable chest. Right shoulder arthritic changes. IMPRESSION: 1. Rapidly resolving bilateral airspace disease, possible pulmonary edema, with residual right lungopacities. Presence or absence of right pleural effusion difficult to ascertain. 2. Acute, mildly comminuted right clavicular fracture, not previously reported. The results have been sent by [employer] to Dr. Chan on 02/25/2020 at 2:10 p.m. Receipt of Cortext confirmed at 2:11 p.m. I have personally reviewed the images and I agree with this report. WSN: [id number] Ordering Physician: Nicolasa Chan Dictated By: Mario Dunn MD Dictated Date/Time: 02/25/20 2:15 pm Reviewed By: Eulalio Prather MD Signed By: Eulalio Prather MD Signed Date/Time: 02/25/20 2:20 pm Transcribed By: JAE Transcribed Date/Time: 02/25/20 1:28 pm * Exam Date Time Procedure Performing Provider Status 02/24/20 4:07 AM Ankle Min 3 Views Left Guy Galvin son; Auth (Verified) Notes: (Ankle Min 3 Views Left) Reason For Exam: with Pain;Pain RESULT: Ankle Min 3 Views Left Ankle Min 3 Views Left Reason: Pain; with Pain; Clinical Question(s): Other:; post reduction. COMPARISON: February 22 FINDINGS: Bone and soft tissue visualization suboptimal due to overlying cast. Fractures of distal tibia and fibula again noted. Areas of angulation and displacement be remain, but the fracture fragments are in better alignment than on pre reduction study. IMPRESSION: Fractures distal tibia and fibula again noted. Areas of angulation and displacement remain. WSN: [id number] Ordering Physician: Bishnu Guerra Dictated By: Satish Menendez MD Dictated Date/Time: 02/24/20 8:20 am Reviewed By: Satish Menendez MD Signed By: Satish Menendez MD Signed Date/Time: 02/24/20 8:20 am Transcribed By: JAE Transcribed Date/Time: 02/24/20 8:18 am * Exam Date Time Procedure Performing Provider Status 02/24/20 1:45 AM Chest Portable GalvinDesiree watt; Angel h (Verified) Notes: (Chest Portable) Reason For Exam: Shortness of Breath RESULT: Chest Portable Chest Portable Hx of Present Illness: pt reports was walking to the refrigerator at home and slipped and rolled L ankle and it was dangling and I couldn't control it so I had my boyfriend put on a boot I had from my other ankle injury ; Reason: Shortness of Breath; Clinical Question(s): CHF COMPARISON: None. FINDINGS: LINES AND TUBES: None. LUNGS AND PLEURA: Diffuse bilateral airspace disease as well as groundglass opacities No pleural effusion. No pneumothorax. HEART, MEDIASTINUM AND DELMI: Heart is normal in size. Normal upper mediastinal and hilar contour. BONES AND SOFT TISSUES: No acute abnormality. IMPRESSION: Diffuse airspace disease can reflect diffuse pneumonia, or possibly pulmonary edema although there are no pleural effusions. Findings are already known on review of the EMR at time of this dictation. WSN: [id number] Ordering Physician: Bishnu Guerra Dictated By: July Aiken MD Dictated Date/Time: 02/24/20 8:09 am Reviewed By: July Aiken MD Signed By: July Aiken MD Signed Date/Time: 02/24/20 8:09 am Transcribed By: JAE Transcribed Date/Time: 02/24/20 8:07 am * Exam Date Time Procedure Performing Provider Status 02/24/20 6:42 AM Knee 1 or 2 Views Left Guy Galvin son; Auth (Verified) Notes: (Knee 1 or 2 Views Left) Reason For Exam: Trauma RESULT: Knee 1 or 2 Views Left Knee 1 or 2 Views Left, 2 views Reason: Trauma; Clinical Question(s): Fracture Multiple threaded screws related to distal femur, which are likely secondary to prior surgery. These appear unremarkable, no evidence of loosening or abnormality. IMPRESSION: Comminuted fractures proximal fibula. WSN: [id number] Ordering Physician: Akosua Toscano Dictated By: Satish Menendez MD Dictated Date/Time: 02/24/20 8:05 am Reviewed By: Satish Menendez MD Signed By: Satish Menendez MD Signed Date/Time: 02/24/20 8:05 am Transcribed By: JAE Transcribed Date/Time: 02/24/20 8:03 am * Exam Date Time Procedure Performing Provider Status 02/23/20 11:43 PM Ankle Min 3 Views Left Shannan Stanford; Auth (Verified) Notes: (Ankle Min 3 Views Left) Reason For Exam: with Pain;Trauma RESULT: Ankle Min 3 Views Left Ankle Min 3 Views Left CLINICAL INDICATION: Hx of Present Illness: pt reports was walking to the refrigerator at home and slipped and rolled L ankle and it was dangling and I couldn't control it so I had my boyfriend put on a boot I had from my other ankle injury ; Reason: Trauma; with Pain; Clinical Question(s): Fracture; Special Instructions: This is a protocol film and radiologist should call any findings to the Charge Nurse COMPARISONS: None TECHNIQUE: AP, lateral and stress views of the right ankle were obtained. FINDINGS: Posterior dislocation at the right ankle with displaced trimalleolar fracture. The ankle mortise is disrupted. No retained foreign body is identified. Hindfoot midfoot alignment is normal. IMPRESSION: Posterior ankle dislocation and displaced trimalleolar fracture. A [place] message has been communicated via the [employer] system on 02/23/2020 11:54 PM, Message ID [id number]. WSN: [id number] Ordering Physician: Laura Dobson Dictated By: Piter Lawrence MD Dictated Date/Time: 02/23/20 11:54 p Reviewed By: Piter Lawrence MD Signed By: Piter Lawrence MD Signed Date/Time: 02/23/20 11:54 pm Transcribed By: JAE Transcribed Date/Time: 02/23/20 11:45 pm Vital Signs Most recent to oldest [Reference Range]: 1 2 3 Height 170 cm (03/06/20 12:00 PM) 170 cm (03/06/20 7:47 AM) 170 cm (03/06/20 12:01 AM) Weight 141.3 kg (03/05/20 6:44 AM) 142.1 kg (03/03/20 6:02 AM) 143.5 kg (03/01/20 5:58 AM) Oxygen Saturation [94-100 %] 95 % (03/06/20 12:00 PM) 91 % *L* (03/06/20 7:47 AM) 100 % (03/06/20 4:00 AM) Pulse Rate [55-90 bpm] 103 bpm *H* (03/06/20 12:00 PM) 71 bpm (03/06/20 7:47 AM) 88 bpm (03/06/20 4:00 AM) Body Mass Index [18.5-24.99] 51.21 *>HHI* (02/25/20 10:37 PM) Blood Pressure [90-138/55-84 mm Hg] 110/71mm Hg (03/06/20 12:00 PM) 104/69mm Hg (03/06/20 7:47 AM) 108/76mm Hg (03/06/20 4:00 AM) Respiratory Rate [16-30 br/min] 20 br/min (03/06/20 12:00 PM) 18 br/min (03/06/20 7:47 AM) 18 br/min (03/06/20 4:39 AM) Temperature [96.8-100.4 DegF] 97.9 DegF (03/06/20 12:00 PM) 97.7 DegF (03/06/20 7:47 AM) 97.9 DegF (03/06/20 4:00 AM) Liters per Minute 2 L/min (02/27/20 4:00 AM) 2 L/min (02/27/20 1:00 AM) 2 L/min (02/26/20 10:00 PM) Mode of Delivery (Oxygen) Room air (03/06/20 12:00 PM) Room air (03/06/20 7:47 AM) Room air (03/06/20 4:00 AM) Blood pressure sites Arm, left (03/06/20 12:00 PM) Arm, left (03/06/20 7:47 AM) Arm, left (03/06/20 12:01 AM) Temperature Route Oral (03/06/20 12:00 PM) Oral (03/06/20 7:47 AM) Oral (03/06/20 4:00 AM) Dry Weight 148 kg (02/25/20 10:37 PM) Weight Obtained Via Bed scale (03/05/20 6:44 AM) Bed scale (03/03/20 6:02 AM) Bed scale (02/25/20 10:37 PM) Dry Weight Obtained Via Bed scale (02/25/20 10:37 PM) Social History Social History Type Response Tobacco Use: Current smoker. . Sex
--- OUTSIDE RECORDS SUMMARY | 2023-11-08 06:00 | XMS_ITS | Continuity of Care Document ---
Author Organization [facility] Address [address] [place] [address]- Care Team Providers Care Package Yarns Drying Machine Operator Name Role Phone Dawson SLOAN, Becka Primary Care Physician [phone] Encounter [facility] [place] Date(s): 11/04/19 - 12/04/19 [facility] [address] [place] [address] [facility] Attending Physician: Raimundo Duncan Admitting Physician: Raimundo Duncan Referring Physician: Raimundo Duncan Allergies, Adverse Reactions, Alerts Substance Reaction Severity [...] 5 Refills, Maintenance, 07/03/19 13:50:00 EDT, Aerosol, [facility], asthma j45.9, 168, cm, [...]
--- OUTSIDE RECORDS SUMMARY | 2023-11-08 06:00 | XMS_ITS | Continuity of Care Document ---
Author Organization [facility] Address [address] [place] [address]- Care Team Providers Care Financial Foundations Representative Name Role Phone Atul BARRETO, Toyin Arauz Primary Care Physicia n Encounter [facility] [place] ACCT R [id number] Date(s): 10/15/21 - 11/14/21 [facility] [address] [place] [address]- Attending Physician: Raimundo Duncan Admitting Physician: Raimundo [...] Team Personnel Name: Toyin Pollard NP Address: [address] [place] [address]
== END 2023-11-04 16:16 | disposition home health service (06) | DRG 463 ==
LOC: HO.ED 06:42 → HO.EDOVER 13:19 → HO.IMC 19:06
PROVIDERS: Physician Assistant Medical; Admitting Provider Nurse Practitioner Acute Care; Emergency Provider Emergency Medicine; PCP Registered Nurse; Visit Provider Nurse Practitioner Acute Care
DX: N39.0 Urinary tract infection, site not specified (principal); J96.21 Acute and chronic respiratory failure with hypoxia; G93.49 Other encephalopathy; E66.2 Morbid (severe) obesity with alveolar hypoventilation; E87.1 Hypo-osmolality and hyponatremia; E87.21 Acute metabolic acidosis; B36.9 Superficial mycosis, unspecified; E03.9 Hypothyroidism, unspecified; Z68.45 Body mass index [BMI] 70 or greater, adult; E11.22 Type 2 diabetes mellitus with diabetic chronic kidney disease; Z99.81 Dependence on supplemental oxygen; J96.22 Acute and chronic respiratory failure with hypercapnia; J44.9 Chronic obstructive pulmonary disease, unspecified; B96.20 Unspecified Escherichia coli [E. coli] as the cause of diseases classified elsewhere; Z16.12 Extended spectrum beta lactamase (ESBL) resistance; E78.5 Hyperlipidemia, unspecified; I12.9 Hypertensive chronic kidney disease with stage 1 through stage 4 chronic kidney disease, or unspecified chronic kidney disease; F17.210 Nicotine dependence, cigarettes, uncomplicated; S82.831A Other fracture of upper and lower end of right fibula, initial encounter for closed fracture; W19.XXXA Unspecified fall, initial encounter; N18.30 Chronic kidney disease, stage 3 unspecified; F43.10 Post-traumatic stress disorder, unspecified; Z20.822 Contact with and (suspected) exposure to COVID-19; Z71.6 Tobacco abuse counseling; Z91.040 Latex allergy status; Z79.4 Long term (current) use of insulin; Z79.899 Other long term (current) drug therapy
CPT/HCPCS: 0241U; 36415; 71045; 73590; 73610; 80048; 80053; 80076; 80307; 81001; 82436; 82803; 82947; 83605; 83690; 83735; 83880; 84133; 84300; 84484; 84702; 85025; 85027; 85610; 86140; 87040; 87086; 87088; 87186; 93005; 94660; 97162; 99285; C1758; J0696; J1644; J2185; J2270; J7120

== ENCOUNTER → 2023-11-01 03:21 | Outpatient (BNV) | payer MEDICAID, SELFPAY | PROVIDERS: Admitting Provider Nurse Practitioner Acute Care; Emergency Provider Emergency Medicine; PCP Registered Nurse; Visit Provider Internal Medicine | DX: R94.31 Abnormal electrocardiogram [ECG] [EKG] (principal) | CPT/HCPCS: 93010 ==

== ENCOUNTER → 2023-11-01 07:29 | Outpatient (BNV) | payer MEDICAID, SELFPAY | PROVIDERS: Admitting Provider Nurse Practitioner Acute Care; Emergency Provider Emergency Medicine; Visit Provider Nurse Practitioner Acute Care | DX: S82.891A Other fracture of right lower leg, initial encounter for closed fracture (principal); N39.0 Urinary tract infection, site not specified; J44.1 Chronic obstructive pulmonary disease with (acute) exacerbation | CPT/HCPCS: 99223; 99233; 99239; G0180 ==

== ENCOUNTER 2023-11-30 15:11 | Outpatient (AMB) | payer MEDICAID, SELFPAY ==
--- NOTE | 2023-11-30 07:08 | A.OFFVIS_ITS ---
Intake Visit Reasons: T2DM w/Beverly and hypothyroidism/ok per Donna Intake Note: Patient presents today via telephone visit to re-establish treatment for Type 2 Diabetes Mellitus & Hypothyroidism: Last Diabetic eye exam was on: DUE Last Podiatry exam was on: Does not see a Setter Off Most recent HbA1c: OVER DUE Orderlies Teacher Required: No Accompanied by: Self / Same As Patient Allergies metformin Allergy (Intermediate, Verified 12/01/23 13:01) Diarrhea tetracycline Allergy (Intermediate, Verified 12/01/23 13:01) hives Latex, Natural Rubber Allergy (Verified 12/01/23 13:01) Rash haloperidol [From HALDOL] Adverse Reaction (Intermediate, Verified 12/01/23 13:01) Irritable HPI Comments Details: 53 YO F with PMHx who has agreed to this telehealth visit which was set up at her request. Both patient and provider are in the [facility] and patient is in agreement to have the telehealth appt and is in a safe and secure environment. She is homebound. Today's visit is for F/U for T2DM and a NTMNG and hypothyroidism. The patient last saw March 2023 and Alison GUSTAFSON at which time her Toujeo was reduced to 70 units per day and an increase in Mounjaro. 1) T2DM: Initially diagnosed with T2DM in 2020. Was initially started on treatment with Metformin. She was unable to tolerate this due to GI distress. Glimepiride: ineffective Current regimen TOUJEO 300UNIT/ML 70 units qHS Humalog 30 units TID before meals AC Mounjaro 7.5mg weekly She is on a Freestyle Beverly 3 sensor period for 2 weeks beginning November 09 and ending Nov 23, 2023 Freestyle beverly sensor 3 average glucose: [107 ] 14 day continuous glucose sensor report reviewed Glucose Management indicator [ 5.9] % Time CGM active [58 ] % TIme in ranges: 0 % very high (above 250) 0 % high (181-250) 97 % in range (70-180] Three % low (69-55) 0 % very low (below 54) 16.9 Glucose variability [ ] (target <36%) Interpretation of CGMS well-controlled glucose was some lows from 3-5 in the afternoon Treats according to the rule of 15's. Family history of T2DM in her Sister. Has eyes checked yearly, last eye exam 1 1/2 yrs . Needs to make appt denies retinopathy. Denies neuropathy, last foot exam 03/[address] Brennan's appt. She does not see a senior field service engineer. 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 Denies nephropathy, on Lisinopril 10 mg PO daily. No recent UAC on file. She was seen by Nephrology 09/09 Dr. Davis for resolved hyponatremia due to decreased free water clearance. He recommended avoiding thiazide diuretics and free water restriction. Has HLD, on Atorvastatin 20 mg PO daily. Last LDL 77 as measured on 06/2023 Has CAD. She was evaluated by vascular 09/09. She does have an aortic aneurysm and should she need surgical treatment per vascular at [facility] this would need to be done at a tertiary care facility as her BMI exceeds the equipment at [facility] She has fatty liver and one gallstone 1.8cm. She has a AAA; last imagin.7 if 5.8 She has osteoporosis on Aldendronate managed by: Diet: High in simple carbohydrates. Weight: Stable Has had diabetes education. Thyroid most recent TSH 38.18 on 08/10 at which time she was advised by telephone encounter to Increase the Tirosint to 350 ug (200 ug and 150 ug )and recheck TSH and free T4 in 6 wks. She has not yet had this blood work done Information from last appt with Dr. Brennan was carried forward for continuity of care. 2) Thyroid Nodule:After her initial visit in Endocrine visit she was asked her to have a full set of TFTs completed, as well as a CT of the neck and a barium swallow. She initially failed to do this.? She did have her CT which revealed an enlarged R lobe of the thyroid with mass effect on the esophagus as well as the hypopharynx.? She was referred to Dr. Read for a surgical thyroidectomy.? He reviewed her US and felt that the gland was not significantly enlarged enough to be causing compressive symptoms and recommended against a surgical thyroidectomy. In terms of her hypothyroidism, she was first diagnosed with Hypothyroidism many years ago. Her dose of Levothyroxine had been steadily increased to 250 mcg PO daily.? She had reported she was spacing this appropriately from her iron and reports good compliance. She completed a levothyroxine absorption test and this was WNL. After that she did admit to poor compliance. She was switched to Tirosint. ? 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 CT Neck: 11/18/2019FINDINGS: ? ? This examination is limited without contrast. The thyroid gland is ? ? enlarged and soft tissue contiguous with the upper pole of the right ? ? thyroid lobe extends lateral and posterior to the hypopharynx lower ? ? cervical esophagus, inseparable from the structures for example on ? ? image 67 of series 2. This could reflect an exophytic thyroid tissue ? ? alternative pathology to be better assessed with postcontrast CT or a ? ? neck MRI with and without IV contrast. Suspected mass effect on the ? ? hypopharynx and cervical esophagus by this soft tissue. The trachea ? ? remains midline and patent. Artifact precludes assessment of the ? ? inferior extent of the thyroid lobe including the substernal region ? ? which is not included on this exam. ? ? Possible retropharyngeal course of the internal carotid arteries ? ? bilaterally that should be further assessed with postcontrast CT ? ? imaging or a neck MRA prior to any cervical surgical intervention. ? ? Superficial mucosal spaces not diagnostically assessed without ? ? contrast. ? ? Reversal of the cervical lordosis and multilevel cervical spondylosis. ? ? Metallic nails project through the skin of the lower lips which can be ? ? clinically correlated for piercings in these areas. If considering a ? ? MRI, MR compatibility would need to be determined. [facility] Medical History Osteoporosis Hypercapnia COPD (chronic obstructive pulmonary disease) Hypothyroidism Multinodular thyroid HLD (hyperlipidemia) T2DM (type 2 diabetes mellitus) Pneumonitis Chronic respiratory failure Pulmonary nodules Pneumonia Acute and chronic respiratory failure with hypoxia MORGAN on CPAP Morbid (severe) obesity due to excess calories Chronic restrictive lung disease Obesity due to excess calories DM2 (diabetes mellitus, type 2) HLD (hyperlipidemia) Diabetes Goiter Vitamin D deficiency Hypothyroidism Fibula fracture Hx of fracture of patella Back pain GERD (gastroesophageal reflux disease) Hepatitis History of posttraumatic stress disorder (PTSD) Depression Myocardial infarction AAA (abdominal aortic aneurysm) without rupture Morbid obesity Hernia Umbilical hernia PTSD (post-traumatic stress disorder) ADHD Schizo affective schizophrenia Arthritis Migraine Diabetes HTN (hypertension) Gallstone Aortic aneurysm Sleep apnea Asthma Surgical History Hx of knee surgery Hx of tubal ligation History of incision and drainage Tubal ligation status Family History Father Unknown family medical history Mother Unknown family medical history Sister Ovarian cancer Son No problems noted. Son Depression Son Asthma Bipolar 1 disorder ADHD Daughter No problems noted. Daughter Unknown family medical history Daughter Unknown family medical history Daughter No problems noted. Social History Household Members: Spouse Housing: Apartment Are you a primary care coordination manager to a significant other at home: No Do you presently have visiting nurse or other home services: No Unable to assess alcohol history related to: Unable to respond Alcohol intake: never Patient Tobacco Use Status: Current someday Tobacco user Tobacco use type: Cigarette Cigarette Packs Per Day: 6 Years Smoked: 35 e-Cigarette/Vaping Use: Currently Using Substance Use Type: Marijuana Advance Directives Date on File: 09/13/21 service: No Current occupational status: unemployed Telehealth Telehealth Telehealth Platform: [facility] Location of provider rendering services: practice address Location of patient: address on file Patient Identification confirmed using: Name, : Yes Telehealth method: voice only Patient verbally consented to treatment: Yes Patient verbally consented to billing insurance company: Yes Patient informed of any privacy concerns related to visit: Yes Minutes spent on Phone/Video with Pt.: 30 Results Reviewed Results Reviewed: Laboratory Tests 07/20/21 03/30/23 07/17/23 11:02 11:56 16:09 Creatinine Estim Creat Clear Calc Estimated GFR Random Glucose Hgb A1c (Clinic) 13.4 H 10.4 H Calcium Triglycerides 171 H Cholesterol 176 LDL Cholesterol, Calc 77 HDL Cholesterol 65 TSH 07/19/23 11/02/23 12:30 06:16 Creatinine 0.94 Estim Creat Clear Calc 138.0 Estimated GFR > 60 Random Glucose 121 H Hgb A1c (Clinic) Calcium 9.4 Triglycerides Cholesterol LDL Cholesterol, Calc HDL Cholesterol TSH 38.18 H Assessment & Plan Assessment & Plan (1) Diabetes: Code(s): E11.9 - Type 2 diabetes mellitus without complications Category: Medical Plan: 53-year-old type 2 diabetic with multiple comorbidities who participates in telehealth visit today. Based on her freestyle readings her numbers are in good range. She was counseled to continue her current doses of medications and to have blood work done in the lab to check A1c. She will schedule an office visit for 3 months. (2) Hypothyroidism: Code(s): E03.9 - Hypothyroidism, unspecified Category: Medical Plan: Continue current dosing and have TSH free T4 done. Orders: Orders Thyroid Stimulating Hormone 11/30/23 E03.9 - Hypothyroidism, unspecified Creatinine Urine 11/30/23 E11.9 - Type 2 diabetes mellitus without complications Hemoglobin A1c 1 Week E11.9 - Type 2 diabetes mellitus without complications Free T4 (Free Thyroxine) 11/30/23 E03.9 - Hypothyroidism, unspecified Basic Metabolic Panel 11/30/23 E11.9 - Type 2 diabetes mellitus without complications Lipid Panel 11/30/23 E11.9 - Type 2 diabetes mellitus without complications Microalbumin, Random (w Creat) 11/30/23 E11.9 - Type 2 diabetes mellitus without complications Medications: Refilled blood sugar diagnostic (FreeStyle Precision Ronny Strips) TEST BLOOD SUGAR 4 TIMES A DAY DIRECTED 100 strips 5RF Coding Level of Care Code Tele Est Pt Level 4 (01279) Diagnoses Diabetes E11.9 Hypothyroidism E03.9 Time Spent (min) 30 Comment Time spent reviewing labs/provider notes, call time, chart doc
== END 2023-11-30 16:24 | disposition home or self-care (01) ==
LOC: HO.ENCR 15:11
PROVIDERS: PCP Registered Nurse; Visit Provider Nurse Practitioner Adult Health
DX: E11.9 Type 2 diabetes mellitus without complications (principal); E03.9 Hypothyroidism, unspecified
CPT/HCPCS: 99214

== ENCOUNTER → 2023-11-30 15:11 | Outpatient (BNVA) | payer MEDICAID, SELFPAY | PROVIDERS: PCP Registered Nurse; Visit Provider Nurse Practitioner Adult Health ==

== ENCOUNTER 2023-12-01 09:03 | Outpatient (REF) | payer MEDICAID, SELFPAY | END 2023-12-01 09:04 | disposition home or self-care (01) | LOC: HO.HOSX 09:03 | PROVIDERS: Visit Provider Physician Assistant | DX: S82.401D Unspecified fracture of shaft of right fibula, subsequent encounter for closed fracture with routine healing (principal) | CPT/HCPCS: 27786; 99212 ==

== ENCOUNTER 2023-12-01 12:28 | Emergency (ER) | payer MEDICAID, SELFPAY ==
[2023-12-01 12:42] VITALS: BP 113/66; PULSE 72; O2SAT 94
--- NOTE | 2023-12-01 12:49 | ED_ITS ---
HPI - General Adult General Chief complaint: General Medical Stated complaint: r ankle pain Time Seen by Provider: 12/01/23 12:41 Source: patient and EMS Mode of arrival: EMS Limitations: other (very upset and agitated) History of Present Illness ED Provider: BRANDO JO narrative: 53 yo female with PMH of schizoaffective disorder, pneumonia, recent R ankle fracture in splint, HLD, pneumonitis, PTSD, chronic O2 use here after she needed to go to orthopedic appointment she forgot to call her regular [facility] ambulance ride so she called 911. They had to bring her to the ED on arrival she is y elling at us and stating we don't know anything about anything. She then demands to leave and refuses care in the ED. Patient states she only wants her papers and is going to the orthopedics office MD complaint: wants to get to orthopedics office Onset (ago): day(s) (today 1230pm) Location: right and lower extremity Radiation: non-radiation Severity: moderate Relieving factors: none Exacerbating factors: none Associated symptoms: denies other symptoms Treatments prior to arrival: none Related Data Home Medications ?Medication ?Instructions ?Recorded ?Confirmed amitriptyline 10 mg tablet 10 mg PO BEDTIME 01/10/20 11/01/23 benztropine 1 mg tablet 1 mg PO BID@1200,2100 01/10/20 11/01/23 lisinopril 10 mg tablet 10 mg PO BEDTIME 01/10/20 11/01/23 montelukast 10 mg tablet 10 mg PO BEDTIME 01/10/20 11/01/23 multivitamin 1 tab PO DAILY@1200 01/10/20 11/01/23 atenolol 50 mg tablet 50 mg PO DAILY@1200 04/20/21 11/01/23 docusate sodium 100 mg capsule 100 mg PO DAILY PRN Constipation 04/20/21 11/01/23 folic acid 1 mg tablet 1 tab PO DAILY 04/20/21 11/01/23 furosemide 40 mg tablet 1 tab PO DAILY 04/20/21 11/01/23 lurasidone 60 mg tablet (Latuda) 60 mg PO DAILY@0700 04/20/21 11/01/23 melatonin 5 mg tablet 10 mg PO BEDTIME PRN insomnia 04/20/21 11/01/23 prazosin 5 mg capsule 1 cap PO BEDTIME 04/20/21 11/01/23 alendronate 70 mg tablet 1 tab PO MO@0600 04/22/21 11/01/23 diclofenac sodium 1 % topical gel 2 g topical BID Pain 04/22/21 11/01/23 fluticasone propionate 50 1 spray intranasal DAILY PRN 04/22/21 11/01/23 mcg/actuation nasal ALLERGIES spray,suspension hydroxyzine HCl 50 mg tablet 1 tab PO TID PRN Anxiety 04/22/21 11/01/23 cholecalciferol (vitamin D3) 50 50 mcg PO DAILY 07/20/21 11/01/23 mcg (2,000 unit) tablet acetaminophen 500 mg tablet 500 mg PO Q6H PRN Pain 09/08/21 11/01/23 lidocaine 5 % topical patch 1 patch topical DAILY 09/08/21 11/01/23 Oxygen Home Use 03/25/22 09/29/22 nebulizers 03/25/22 09/29/22 quetiapine 25 mg tablet 100 mg PO DAILY@1200 PRN anxiety 08/18/22 11/01/23 quetiapine 400 mg tablet 600 mg PO BEDTIME 08/18/22 11/01/23 cetirizine 10 mg tablet 10 mg PO DAILY PRN allergies 09/08/22 11/01/23 divalproex 250 mg tablet,extended 750 mg PO DAILY@1200 09/08/22 11/01/23 release 24 hr divalproex 500 mg tablet,extended 1,000 mg PO BEDTIME 09/08/22 11/01/23 release 24 hr nicotine (polacrilex) 4 mg gum 4 mg PO Q2H PRN Nicotine Cravings 09/08/22 11/01/23 prazosin 1 mg capsule 1 mg PO BEDTIME 09/08/22 11/01/23 econazole 1 % topical cream 1 appl topical BID 03/30/23 11/01/23 albuterol sulfate 90 mcg/actuation 2 puff inhalation Q4H PRN 11/01/23 11/01/23 aerosol inhaler (Ventolin HFA) Shortness Of Breath Or Wheezing ammonium lactate 12 % lotion 1 appl topical DAILY PRN Dry Skin 11/01/23 11/01/23 atorvastatin 40 mg tablet 40 mg PO DAILY 11/01/23 11/01/23 insulin glargine U-300 conc 300 70 unit subcut DAILY 11/01/23 11/01/23 unit/mL (3 mL) subcutaneous pen (Toujeo Max U-300 SoloStar) lorazepam 1 mg tablet 1 mg PO DAILY PRN panic attack 11/01/23 11/01/23 naproxen 500 mg tablet 500 mg PO BID 11/01/23 11/01/23 nystatin 100,000 unit/gram topical 1 appl topical BID 11/01/23 11/01/23 powder rimegepant 75 mg disintegrating 75 mg PO NEEDED migraine 11/01/23 11/01/23 tablet ([facility] O[facility]) tirzepatide 7.5 mg/0.5 mL 7.5 mg subcut MO 11/01/23 11/01/23 subcutaneous pen injector (Bree) topiramate 50 mg tablet 50 mg PO DAILY 11/01/23 11/01/23 Previous Rx's ?Medication ?Instructions ?Recorded leg brace (Ankle Brace) #1 ea 01/22/20 pen needle, diabetic 32 gauge x #125 ea 04/01/22 (BD Ultra-Fine Mary Pen Needle) budesonide 160 mcg-glycopyr 9 2 inh inhalation BID 30 days #10.7 08/18/22 mcg-formot 4.8 mcg/actuation HFA grams inhaler (Breztri Aerosphere) blood-glucose sensor (FreeStyle #2 ea 04/12/23 Todd 3 Sensor device) insulin lispro 100 unit/mL 30 unit (0.3 mL) subcut TIDWMEAL 05/24/23 subcutaneous pen (Humalog KwikPen 30 days #27 mL (U-100) Insulin) Tirosint 150 mcg capsule 150 mcg PO DAILY #30 caps 07/21/23 (levothyroxine) flash glucose sensor (FreeStyle #2 kits 10/02/23 Todd 2 Sensor kit) sulfamethoxazole 800 1 tab PO BID #28 tabs 11/04/23 mg-trimethoprim 160 mg tablet (Bactrim DS) tramadol 50 mg tablet 50 mg PO BID PRN Pain #60 tabs 11/04/23 blood sugar diagnostic (FreeStyle #100 strips 11/30/23 Precision Ronny Strips) Allergies Allergy/AdvReac Type Severity Reaction Status Date / Time metformin Allergy Intermediate Diarrhea Verified 12/01/23 13:01 tetracycline Allergy Intermediate hives Verified 12/01/23 13:01 Latex, Natural Rubber Allergy Rash Verified 12/01/23 13:01 haloperidol [From HALDOL] AdvReac Intermediate Irritable Verified 12/01/23 13:01 Review of Systems Review of Systems: ROS unable to be obtained due to agitation PMFSH Past Medical History Attestation statement: The following information was validated with the patient. Source: old records reviewed Medical History Osteoporosis Hypercapnia COPD (chronic obstructive pulmonary disease) Hypothyroidism Multinodular thyroid HLD (hyperlipidemia) T2DM (type 2 diabetes mellitus) Pneumonitis Chronic respiratory failure Pulmonary nodules Pneumonia Acute and chronic respiratory failure with hypoxia MORGAN on CPAP Morbid (severe) obesity due to excess calories Chronic restrictive lung disease Obesity due to excess calories DM2 (diabetes mellitus, type 2) HLD (hyperlipidemia) Diabetes Goiter Vitamin D deficiency Hypothyroidism Fibula fracture Hx of fracture of patella Back pain GERD (gastroesophageal reflux disease) Hepatitis History of posttraumatic stress disorder (PTSD) Depression Myocardial infarction AAA (abdominal aortic aneurysm) without rupture Morbid obesity Hernia Umbilical hernia PTSD (post-traumatic stress disorder) ADHD Schizo affective schizophrenia Arthritis Migraine Diabetes HTN (hypertension) Gallstone Aortic aneurysm Sleep apnea Asthma Surgical History Hx of knee surgery Hx of tubal ligation History of incision and drainage Tubal ligation status Family History Family History Father Unknown family medical history Mother Unknown family medical history Sister Ovarian cancer Son No problems noted. Son Depression Son Asthma Bipolar 1 disorder ADHD Daughter No problems noted. Daughter Unknown family medical history Daughter Unknown family medical history Daughter No problems noted. Social History Social History Household Members: Spouse Caregiver staying overnight: No Housing: Apartment Are you a primary healthcare account manager to a significant other at home: No Do you presently have visiting nurse or other home services: No 75 years or older and lives alone: No Unable to assess alcohol history related to: Unable to respond Alcohol intake: never Patient Tobacco Use Status: Current someday Tobacco user Tobacco use type: Cigarette Cigarette Packs Per Day: 6 Years Smoked: 35 e-Cigarette/Vaping Use: Currently Using Substance Use Type: Marijuana Advance Directives Date on File: 09/13/21 service: No Current occupational status: unemployed Physical Exam ED Vital Signs: Vital Signs - 24 hr 12/01/23 12:54 Temperature 98.0 F Pulse Rate 73 Respiratory Rate 18 Blood Pressure 96/57 L Pulse Oximetry 97 Oxygen Delivery Method Nasal Cannula Oxygen Flow Rate 6 BMI result Body Mass Index 78.3 Appearance: Alert. Oriented X3. agitated, rude and aggressive, no acute distress. Eyes: Pupils equal, round and reactive to light. ENT: Pharynx normal. Neck: Normal inspection. Neck supple. CVS: Pulses normal. Respiratory: No respiratory distress. Abdomen: Soft and non-tender. obese Skin: Skin warm and dry. Normal skin color. Neuro: Oriented X 3. No motor deficit. No sensory deficit. Medical Decision Making Medical Decision Making MDM Narrative: 53 yo female with PMH of schizoaffective disorder, pneumonia, recent R ankle fracture in splint, HLD, pneumonitis, PTSD, chronic O2 use here now here demanding we get her to orthopedics clinic she is incredibly rude yelling at us we are trying to help her but she wants no help at this time. She is demanding her papers and is asking to leave and get a wheelchair I can barely get an exam or interview in because she is so angry with us that EMS brought her to the ED and not to the ortho appointment. Differential Diagnosis Differential Diagnoses: The differential diagnosis associated with the presentation includes poor social support Independent Historian Clinical information obtained from an independent historian. History obtained from or confirmed by: EMS External Record Review External record reviewed: Inpatient record Discharge Plan Discharge Clinical Impression: Ankle fracture, right Qualifiers: Encounter type: sequela Fracture type: closed Qualified Code(s): S82.891S - Other fracture of right lower leg, sequela Patient Disposition: Home, Self-Care Instructions: Ankle Fracture (ED) Additional Instructions: please go to your appointment you refused any care in the ED other than wheelchair up to orthopedics return for any worsening symptoms or concerns Prescriptions: No Action (DME) Ankle Brace Misc See Rx Instructions .ROUTE .MEDSUPPLY Qty: 1 0RF Rx Instructions: AIRSELECT, STANDARD, MEDIUM (DME) pen needle, diabetic [BD Ultra-Fine Mary Pen Needle] 32 gauge x 5/32 needle See Rx Instructions .ROUTE .MEDSUPPLY Qty: 125 6RF Rx Instructions: As directed four times a day (DME) FreeStyle Todd 3 Sensor Device See Rx Instructions .Route Qty: 2 4RF Rx Instructions: As directed change every 14 days levothyroxine [Tirosint] 150 mcg capsule 150 mcg PO DAILY Qty: 30 4RF (DME) FreeStyle Todd 2 Sensor Kit See Rx Instructions .ROUTE .COMPLEX Qty: 2 5RF Dose Instruction: USE DIRECTED CHANGE EVERY 14 DAYS Rx Instructions: USE DIRECTED CHANGE EVERY 14 DAYS multivitamin Tablet 1 tab PO DAILY@1200 amitriptyline 10 mg Tablet 10 mg PO BEDTIME lisinopril 10 mg Tablet 10 mg PO BEDTIME benztropine 1 mg Tablet 1 mg PO BID@1200,2100 montelukast 10 mg Tablet 10 mg PO BEDTIME furosemide 40 mg tablet 1 tab PO DAILY prazosin 5 mg capsule 1 cap PO BEDTIME folic acid 1 mg tablet 1 tab PO DAILY atenolol 50 mg tablet 50 mg PO DAILY@1200 melatonin 5 mg tablet 10 mg PO BEDTIME PRN (Reason: insomnia) lurasidone [Latuda] 60 mg tablet 60 mg PO DAILY@0700 Rx Instructions: WITH 350 CALORIE MEAL docusate sodium 100 mg Capsule 100 mg PO DAILY PRN (Reason: Constipation) quetiapine 400 mg tablet 600 mg PO BEDTIME Rx Instructions: 1 400MG AND 2 100 MG alendronate 70 mg tablet 1 tab PO MO@0600 hydroxyzine HCl 50 mg tablet 1 tab PO TID PRN (Reason: Anxiety) fluticasone propionate 50 mcg/actuation spray,suspension 1 spray intranasal DAILY PRN (Reason: ALLERGIES) diclofenac sodium 1 % gel 2 g topical BID Protocol: Apply to: Apply to: KNEE, ANKLE, BACK quetiapine 25 mg tablet 100 mg PO DAILY@1200 PRN (Reason: anxiety) lidocaine 5 % Adhesive Patch,Medicated 1 patch TOPICAL DAILY Protocol: Apply to: Apply to: KNEES AND BACK Rx Instructions: leave on most painful area for up to 12 hrs acetaminophen 500 mg Tablet 500 mg PO Q6H PRN (Reason: Pain) nicotine (polacrilex) 4 mg gum 4 mg PO Q2H PRN (Reason: Nicotine Cravings) prazosin 1 mg capsule 1 mg PO BEDTIME Rx Instructions: tdd 6mg divalproex 500 mg tablet extended release 24 hr 1,000 mg PO BEDTIME divalproex 250 mg tablet extended release 24 hr 750 mg PO DAILY@1200 cetirizine 10 mg tablet 10 mg PO DAILY PRN (Reason: allergies) atorvastatin 40 mg tablet 40 mg PO DAILY Mounjaro 7.5 mg/0.5 mL pen injector 7.5 mg subcut MO Nurtec ODT 75 mg tablet,disintegrating 75 mg PO NEEDED nystatin 100,000 unit/gram powder 1 appl topical BID ammonium lactate 12 % lotion 1 appl topical DAILY PRN (Reason: Dry Skin) lorazepam 1 mg tablet 1 mg PO DAILY PRN (Reason: panic attack) albuterol sulfate [Ventolin HFA] 90 mcg/actuation HFA aerosol inhaler 2 puff INHALATION Q4H PRN (Reason: Shortness Of Breath Or Wheezing) insulin glargine U-300 conc [Toujeo Max U-300 SoloStar] 300 unit/mL (3 mL) insulin pen 70 unit subcut DAILY naproxen 500 mg tablet 500 mg PO BID topiramate 50 mg tablet 50 mg PO DAILY sulfamethoxazole-trimethoprim [Bactrim DS] 800-160 mg tablet 1 tab PO BID Qty: 28 0RF tramadol 50 mg tablet 50 mg PO BID PRN (Reason: Pain) Qty: 60 0RF (DME) nebulizers Misc See Rx Instructions .Route Rx Instructions: As directed (DME) Oxygen Home Use Kit See Rx Instructions .Route Rx Instructions: As directed cholecalciferol (vitamin D3) 50 mcg (2,000 unit) tablet 50 mcg PO DAILY Breztri Aerosphere 160-9-4.8 mcg/actuation HFA aerosol inhaler 2 inh inhalation BID 30 Days Qty: 10.7 11RF econazole 1 % cream 1 appl topical BID insulin lispro [Humalog KwikPen Insulin] 100 unit/mL insulin pen 30 unit subcut TIDWMEAL 30 Days Qty: 27 11RF (DME) FreeStyle Precision Ronny Strips Strip See Rx Instructions .ROUTE .COMPLEX Qty: 100 5RF Dose Instruction: TEST BLOOD SUGAR 4 TIMES A DAY DIRECTED Rx Instructions: TEST BLOOD SUGAR 4 TIMES A DAY DIRECTED Print Language: Welsh
[2023-12-01 12:54] VITALS: BP 96/57; PULSE 73; RESP 18; TEMP 36.7; O2SAT 97
[2023-12-01 12:57] VITALS: BMI 78.3
[2023-12-01 13:28] VITALS: BP 96/57; PULSE 73; RESP 18; TEMP 36.7; O2SAT 97
== END 2023-12-01 13:30 | disposition home or self-care (01) ==
PROVIDERS: Emergency Provider Emergency Medicine; PCP Registered Nurse
DX: S82.891D Other fracture of right lower leg, subsequent encounter for closed fracture with routine healing (principal); X58.XXXD Exposure to other specified factors, subsequent encounter
CPT/HCPCS: 99282

== ENCOUNTER 2023-12-01 13:05 | Outpatient (AMB) | payer MEDICAID, SELFPAY ==
--- NOTE | 2023-12-01 14:21 | MHC.OFFVIS ---
Intake Visit Reasons: FC- Right fibula FX, DOI 11/01/23 Allergies metformin Allergy (Intermediate, Verified 12/01/23 13:01) Diarrhea tetracycline Allergy (Intermediate, Verified 12/01/23 13:01) hives Latex, Natural Rubber Allergy (Verified 12/01/23 13:01) Rash haloperidol [From HALDOL] Adverse Reaction (Intermediate, Verified 12/01/23 13:01) Irritable HPI HPI FC- Right fibula FX, DOI 11/01/23: Details: 53-year-old female who presents in the office today, as a new patient, for an evaluation of right ankle pain. The patient presented to the?ED via EMS on 11/01/23 status post her boyfriend reporting her being in an altered mental status. The patient was found in urine with a foul odor. She reported she had fallen ?the other day? and injured the right ankle. X-rays were obtained.?The patient?s right ankle was splinted with a posterior splint which was?applied by using cast padding, Orthoglass, and EMILIE bandages. She was instructed to remain non-weight bearing. She was admitted to the hospital and discharged on 11/04/23.? ? Patient has a significant medical history of morbid obesity and type 2 diabetes mellitus. ? ? Patient has a weight of 492 and BMI of 79.5 as of 11/01/23.? A1c is 10.4 as of 03/30/23.? PFSH Medical History Osteoporosis Hypercapnia COPD (chronic obstructive pulmonary disease) Hypothyroidism Multinodular thyroid HLD (hyperlipidemia) T2DM (type 2 diabetes mellitus) Pneumonitis Chronic respiratory failure Pulmonary nodules Pneumonia Acute and chronic respiratory failure with hypoxia MORGAN on CPAP Morbid (severe) obesity due to excess calories Chronic restrictive lung disease Obesity due to excess calories DM2 (diabetes mellitus, type 2) HLD (hyperlipidemia) Diabetes Goiter Vitamin D deficiency Hypothyroidism Fibula fracture Hx of fracture of patella Back pain GERD (gastroesophageal reflux disease) Hepatitis History of posttraumatic stress disorder (PTSD) Depression Myocardial infarction AAA (abdominal aortic aneurysm) without rupture Morbid obesity Hernia Umbilical hernia PTSD (post-traumatic stress disorder) ADHD Schizo affective schizophrenia Arthritis Migraine Diabetes HTN (hypertension) Gallstone Aortic aneurysm Sleep apnea Asthma Surgical History Hx of knee surgery Hx of tubal ligation History of incision and drainage Tubal ligation status Family History Father Unknown family medical history Mother Unknown family medical history Sister Ovarian cancer Son No problems noted. Son Depression Son Asthma Bipolar 1 disorder ADHD Daughter No problems noted. Daughter Unknown family medical history Daughter Unknown family medical history Daughter No problems noted. Social History Household Members: Spouse Housing: Apartment Are you a primary career services director to a significant other at home: No Do you presently have visiting nurse or other home services: No Unable to assess alcohol history related to: Unable to respond Alcohol intake: never Patient Tobacco Use Status: Current someday Tobacco user Tobacco use type: Cigarette Cigarette Packs Per Day: 6 Years Smoked: 35 e-Cigarette/Vaping Use: Currently Using Substance Use Type: Marijuana Advance Directives Date on File: 09/13/21 service: No Current occupational status: unemployed Review of Systems Const All systems reviewed & are unremarkable except as noted in HPI and below Physical Exam Const General: cooperative and no acute distress Orientation/consciousness: patient oriented x3 Resp Effort & Inspection: normal respiratory effort and able to speak in complete sentences Cardio Peripheral pulses: Peripheral pulses 2+ throughout Skin General skin exam: no rashes or lesions noted Neuro General: patient oriented x3 Extrem Other: Right ankle: Skin is intact. Mild edema. Patient is able to flex and extend all digits. Reports numbness in all digits. Pedal pulse intact. Office Procedures Casting/Splints 07807-Anrop Leg Cast Application Procedure code (CPT) selection complete Fracture Care Fracture Billing Code: Fracture Billing Code Assessment & Plan Assessment & Plan (1) Right fibular fracture: Code(s): S82.401A - Unspecified fracture of shaft of right fibula, initial encounter for closed fracture Category: Medical Plan Ms. Lopez is a 53-year-old female who presents in the office today, as a new patient, for an evaluation of right ankle pain. The patient presented to the?ED via EMS on 11/01/23 status post her boyfriend reporting her being in an altered mental status. The patient was found in urine with a foul odor. She reported she had fallen ?the other day? and injured the right ankle. X-rays were obtained.?The patient?s right ankle was splinted with a posterior splint which was?applied by using cast padding, Orthoglass, and EMILIE bandages. She was instructed to remain non-weight bearing. She was admitted to the hospital and discharged on 11/04/23.? ? Patient has a significant medical history of morbid obesity and type 2 diabetes mellitus. ? ? Patient has a weight of 492 and BMI of 79.5 as of 11/01/23.? A1c is 10.4 as of 03/30/23.? ? The patient presented to the ED via EMS prior to her appointment in our office. She did not wish to be treated and was discharged due to no emergent medical concerns. She was transported to the x-ray facility where the patient was seen by me. Upon presentation she was in a posterior splint that was clean, dry, and intact. She is in a wheelchair and unable to weight bear or ambulate. ?? ? She was placed into a custom-made short leg cast. She will remain non-weight bearing. Follow-up will be in four weeks with repeat x-rays out of the cast, or sooner if needed. ? ? X-rays of the right ankle which were obtained while in the office today and were reviewed by me, Loraine Greer PA-C, revealed routine healing of a right fibular fracture. ? ? X-rays of the right lower extremity, obtained 11/01/23, revealed:? 1. Comminuted fracture of the distal metadiaphysis of the fibula. There is distraction of fracture fragments. Surrounding edema is noted. Mild angulation at the fracture apex noted.? 2. Two views of the more proximal tib-fib demonstrates a rounded foreign body similar to previous study from 01/11/2020. There is degeneration in the right knee but no proximal fracture is seen.? 3. There is mixed sclerotic and lucent change involving the proximal tibia of uncertain etiology. Underlying bony lesion cannot be excluded.? Orders: Orders XR ankle RT min 3V Today Loraine Greer PA-C M25.579 - Pain in unspecified ankle and joints of unspecified foot XR ankle RT min 3V Today Keira Cottrell PA-C M25.571 - Pain in right ankle and joints of right foot Patient Instructions: Scribed by Felicita Emerson, infertility medical assistant, for Loraine Greer PA-C on 12/01/2023 at 2:27 pm, EST.? Coding Level of Care Code New Pt Level 4 (04800) Complex EM visit Add On G2211 Diagnoses Right fibular fracture S82.401A CPT Codes Casting - CPT: 59820-Jeiom Leg Cast Application ([id number]) Fracture Care - Fracture Billing Code: Fracture Billing Code ([id number])
== END 2023-12-01 14:24 | disposition home or self-care (01) ==
PROVIDERS: PCP Registered Nurse; Visit Provider Physician Assistant
DX: S82.401A Unspecified fracture of shaft of right fibula, initial encounter for closed fracture (principal)
CPT/HCPCS: 27786; 99204

== ENCOUNTER 2023-12-01 13:20 | Outpatient (REF) | payer MEDICAID, SELFPAY ==
--- NOTE | ~2023-12-01 | XR_ITS ---
EXAMINATION: XR ANKLE, RIGHT CLINICAL INFORMATION: Pain right ankle COMPARISON: X-ray right ankle October 2023. TECHNIQUE: AP, lateral, and mortise views of the right ankle. FINDINGS: Demonstration of the subtle comminuted fractures of the distal diaphysis of the fibula located 3.6 cm proximal to the level of the mortise. Alignment unchanged. There is some new callus formation increased compared to prior. No additional fractures. Mild generalized soft tissue swelling Amorphous calcification in the anterior soft tissues proximal to the tibiotalar joint likely unrelated to the fracture perhaps related to old soft tissue trauma. Calcaneal spurs. XR/XR ankle RT min 3V IMPRESSION: Healing distal fibular fracture. No change in alignment. Electronically signed by: Bello Perry MD 12/07/2023 08:03 PM EDT
== END 2023-12-01 13:21 | disposition home or self-care (01) ==
LOC: HO.XRAY 13:20
PROVIDERS: PCP Registered Nurse; Visit Provider Physician Assistant
DX: M25.571 Pain in right ankle and joints of right foot (principal)
CPT/HCPCS: 73610

== ENCOUNTER 2023-12-04 10:09 | Outpatient (REF) | payer MEDICAID, SELFPAY | END 2023-12-04 10:10 | disposition home or self-care (01) | LOC: HO.HAP 10:09 | PROVIDERS: Visit Provider Registered Nurse | DX: Z13.89 Encounter for screening for other disorder (principal) ==

== ENCOUNTER 2023-12-06 09:53 | Outpatient (REF) | payer MEDICAID, SELFPAY | END 2023-12-06 09:54 | disposition home or self-care (01) | LOC: HO.HAP 09:53 | PROVIDERS: Visit Provider Registered Nurse | DX: Z13.89 Encounter for screening for other disorder (principal) ==

== ENCOUNTER 2023-12-15 09:57 | Outpatient (REF) | payer MEDICAID, SELFPAY | END 2023-12-15 09:58 | disposition home or self-care (01) | LOC: HO.HAP 09:57 | PROVIDERS: Visit Provider Registered Nurse | DX: Z46.1 Encounter for fitting and adjustment of hearing aid (principal); H90.3 Sensorineural hearing loss, bilateral | CPT/HCPCS: V5264 ==

== ENCOUNTER 2023-12-21 20:01 | Inpatient (IN) | payer MEDICAID, SELFPAY ==
[2023-12-21] VITALS (8 sets, daily range): BP systolic 87–116; BP diastolic 57–74; PULSE 82–88; RESP 12–16; TEMP 36.6–37.2; O2SAT 72–95; BMI 72.6
--- NOTE | ~2023-12-21 | XR_ITS ---
EXAMINATION: XR CHEST CLINICAL INFORMATION: Shortness of breath COMPARISON: Chest 11/01/2023 TECHNIQUE: Frontal view of the chest was obtained. FINDINGS: The lungs are hypoexpanded with left lower lobe patchy opacity question underlying infiltrates or atelectasis. Heart size is barely visible. Pulmonary vascularity appears normal. No gross bony abnormality. XR/XR chest 1V IMPRESSION: Hypoexpanded lungs with left lower lobe patchy opacity question underlying infiltrate or atelectasis. Similar findings were seen on previous exam 11/01/2023 Electronically signed by: Roderick Dela Cruz MD 12/21/2023 09:57 PM EDT
--- NOTE | 2023-12-21 20:16 | ECG_ITS ---
Test Reason : SOB Blood Pressure : / mmHG Vent. Rate : 084 BPM Atrial Rate : 084 BPM P-R Int : 212 ms QRS Dur : 096 ms QT Int : 326 ms P-R-T Axes : 054 -31 084 degrees QTc Int : 385 ms Sinus rhythm with 1st degree A-V block Left axis deviation Low voltage QRS Nonspecific T wave abnormality Abnormal ECG When compared with ECG of 01-NOV-2023 06:07, No significant change was found Referred By: Mary Busch Electronically Signed By:MEGA DE LEON
[2023-12-21] MEDS: 0.9 % Sodium Chloride 2,000 ML 999 ML IVCONT (20:58)
[2023-12-21] MEDS: cefTRIAXone sodium 1 GM in 0.9 % Sodium Chloride 50 ML IV (20:59)
[2023-12-21 21:01] LABS: MANUAL DIFF FLAG NO
[2023-12-21] MEDS: Azithromycin 500 MG in 0.9 % Sodium Chloride 250 ML 125 MG IV (21:03)
[2023-12-21 21:05] LABS: Basophils Percent Auto 0.6 % (0-2); Eosinophils Absolute Auto 0.1 X10*3/uL (0.0-0.4); Eosinophils Percent Auto 1.7 % (0-4); Hematocrit 28.4 % (37.0-47.0); Hemoglobin 8.7 g/dl (12.0-16.0); Imm Gran Abs Auto 0.23 X10*3/uL (0.00-0.03); Imm Gran Pct Auto 4.2 % (0.0-0.4); Lymphocytes Absolute Auto 1.8 X10*3/uL (1.2-4.9); Lymphocytes Percent Auto 33.4 % (20-40); Mean Corpuscular HGB Conc 30.6 g/dl (31.0-35.0); Mean Corpuscular Hemoglobin 26.3 pg (27.0-33.0); Mean Corpuscular Volume 85.8 fL (80.0-98.0); Mean Platelet Volume 10.7 fL (9.4-12.3); Monocytes Absolute Auto 0.5 X10*3/uL (0.1-1.2); Monocytes Percent Auto 9.4 % (2-11); Neutrophils Absolute Auto 2.8 x10*3/uL (2.0-8.3); Neutrophils Percent Auto 50.7 % (45-73); Platelet Count 251 X10*3/uL (160-400); Red Blood Count 3.31 X10*6/uL (4.20-5.50); Red Cell Distribution Width 18.1 % (11.0-16.0); White Blood Count 5.4 X10*3/uL (4.8-10.8)
[2023-12-21 21:09] LABS: INTERNATIONAL NORM RATIO 1.1 (0.9-1.1); Prothrombin Time 12.8 SEC (10.9-12.4)
[2023-12-21 21:19] LABS: Lactic Acid 1.4 mmol/L (0.5-2.0)
[2023-12-21 21:27] LABS: B Type Natriuretic Peptide 12 pg/mL (<100)
[2023-12-21 21:36] LABS: Alanine Aminotransferase 12 U/L (0-31); Albumin Level 3.8 g/dL (3.5-5.0); Alkaline Phosphatase 47 U/L (39-117); Anion Gap 15 (12-20); Aspartate Amino Transferase 14 U/L (5-31); Bilirubin Direct < 0.2 mg/dL (0.0-0.5); Bilirubin Total 0.2 mg/dL (0.0-1.0); Blood Urea Nitrogen 8 mg/dL (9-16); Calcium 9.6 mg/dL (8.4-10.2); Carbon Dioxide 42 mmol/L (22-29); Chloride 77 mmol/L (96-108); Estimated Glomerular Filt Rate > 60; Glucose Random 143 mg/dL (60-115); Magnesium 1.9 mg/dL (1.6-2.6); Sodium 129 mmol/L (135-145); Total Protein 6.7 g/dL (6.5-8.0)
[2023-12-21 21:37] LABS: Troponin-I High Sensitivity < 2.7 ng/L (<3.5-17.0)
[2023-12-21 21:41] LABS: Influenza A PCR NEGATIVE (Negative); Influenza B PCR NEGATIVE (Negative); Resp Syncy Virus RNA Qual PCR NEGATIVE (Negative); SARS COV2 PCR INHOUSE NEGATIVE (Negative)
[2023-12-21 21:55] LABS: VBG Base Excess 28.2 mmol/L; VBG HCO3 57 mmol/L (22-26); VBG pCO2 79 mmHg; VBG pH 7.45 (7.32-7.43); VBG pO2 77 mmHg
[2023-12-21 21:58] LABS: Venous Blood Gas Refer to POC result
[2023-12-21 22:07] LABS: Appearance Urine Clear; Color Urine Yellow; Glucose Urine UA Negative (Negative); Leukocyte Esterase Urine Negative (Negative); Nitrite Urine Negative (Negative); Specific Gravity - Urine 1.015 (1.005-1.025); Urine Blood Negative (Negative); Urine Ketones Negative (Negative); Urine Protein Negative (Neg-Trace)
[2023-12-21 22:21] LABS: Ethanol < 10 mg/dL
[2023-12-21 22:35] LABS: TSH reflex Free T4 30.14 uIU/mL (0.32-4.0)
[2023-12-21 23:00] LABS: Amphetamine Screen Urine Not Detected (Not Detect); Barbiturates, Urine Not Detected (Not Detect); Benzodiazepines Screen Urine Not Detected (Not Detect); Buprenorphine Scr Not Detected (Not Detect); Cannabinoid Screen Urine Not Detected (Not Detect); Cocaine Screen Urine Not Detected (Not Detect); Fentanyl, urine Not Detected (Not Detect); Methadone Screen, Urine Not Detected (Not Detect); Opiate Screen Urine Not Detected (Not Detect); Phencyclidine Screen Urine Not Detected (Not Detect)
[2023-12-21 23:07] LABS: Free T4 (Free Thyroxine) < 0.42 ng/dL (0.71-1.85)
[2023-12-22] VITALS (31 sets, daily range): BP systolic 83–131; BP diastolic 48–78; PULSE 79–95; RESP 10–23; TEMP 36.1–37; O2SAT 87–95; BMI 78.4; BMI 77.1
[2023-12-22 00:08] LABS: Oxycodone Screen Urine Not Detected (Not Detect)
--- NOTE | 2023-12-22 01:11 | ED.GENADULT ---
HPI - General Adult General Chief complaint: Altered Mental Status Stated complaint: low o2 *78% on Ra now 88% on nrb , uti? Source: EMS Mode of arrival: EMS Limitations: altered mental status History of Present Illness ED Provider: Dr. Mary Busch HPI narrative: Patient comes to the emergency room by EMS. According to EMS, patient's significant other called because the patient was not making any sense and had ?low blood pressure at home. When EMS arrived, patient was saturating 78% on 2 L which is the patient's home oxygen dose. The with the patient on a non-rebreather at 15 L and oxygen increased to 93%. Patient arrived very somnolent, arousable to sternal rub. Patient is very hard of hearing at baseline. When patient came, we tried weaning the patient down off of the non-rebreather but patient's oxygen saturation quickly dropped to the high 70s. Patient was put back on the non-rebreather to keep an oxygen saturation in the high 80s/low 90s. Patient is not able to answer any questions Related Data Home Medications ?Medication ?Instructions ?Recorded ?Confirmed amitriptyline 10 mg tablet 10 mg PO BEDTIME 01/10/20 11/01/23 benztropine 1 mg tablet 1 mg PO BID@1200,2100 01/10/20 11/01/23 lisinopril 10 mg tablet 10 mg PO BEDTIME 01/10/20 11/01/23 montelukast 10 mg tablet 10 mg PO BEDTIME 01/10/20 11/01/23 multivitamin 1 tab PO DAILY@1200 01/10/20 11/01/23 atenolol 50 mg tablet 50 mg PO DAILY@1200 04/20/21 11/01/23 docusate sodium 100 mg capsule 100 mg PO DAILY PRN Constipation 04/20/21 11/01/23 folic acid 1 mg tablet 1 tab PO DAILY 04/20/21 11/01/23 furosemide 40 mg tablet 1 tab PO DAILY 04/20/21 11/01/23 lurasidone 60 mg tablet (Latuda) 60 mg PO DAILY@0700 04/20/21 11/01/23 melatonin 5 mg tablet 10 mg PO BEDTIME PRN insomnia 04/20/21 11/01/23 prazosin 5 mg capsule 1 cap PO BEDTIME 04/20/21 11/01/23 alendronate 70 mg tablet 1 tab PO MO@0600 04/22/21 11/01/23 diclofenac sodium 1 % topical gel 2 g topical BID Pain 04/22/21 11/01/23 fluticasone propionate 50 1 spray intranasal DAILY PRN 04/22/21 11/01/23 mcg/actuation nasal ALLERGIES spray,suspension hydroxyzine HCl 50 mg tablet 1 tab PO TID PRN Anxiety 04/22/21 11/01/23 cholecalciferol (vitamin D3) 50 50 mcg PO DAILY 07/20/21 11/01/23 mcg (2,000 unit) tablet acetaminophen 500 mg tablet 500 mg PO Q6H PRN Pain 09/08/21 11/01/23 lidocaine 5 % topical patch 1 patch topical DAILY 09/08/21 11/01/23 Oxygen Home Use 03/25/22 09/29/22 nebulizers 03/25/22 09/29/22 quetiapine 25 mg tablet 100 mg PO DAILY@1200 PRN anxiety 08/18/22 11/01/23 quetiapine 400 mg tablet 600 mg PO BEDTIME 08/18/22 11/01/23 cetirizine 10 mg tablet 10 mg PO DAILY PRN allergies 09/08/22 11/01/23 divalproex 250 mg tablet,extended 750 mg PO DAILY@1200 09/08/22 11/01/23 release 24 hr divalproex 500 mg tablet,extended 1,000 mg PO BEDTIME 09/08/22 11/01/23 release 24 hr nicotine (polacrilex) 4 mg gum 4 mg PO Q2H PRN Nicotine Cravings 09/08/22 11/01/23 prazosin 1 mg capsule 1 mg PO BEDTIME 09/08/22 11/01/23 econazole 1 % topical cream 1 appl topical BID 03/30/23 11/01/23 albuterol sulfate 90 mcg/actuation 2 puff inhalation Q4H PRN 11/01/23 11/01/23 aerosol inhaler (Ventolin HFA) Shortness Of Breath Or Wheezing ammonium lactate 12 % lotion 1 appl topical DAILY PRN Dry Skin 11/01/23 11/01/23 atorvastatin 40 mg tablet 40 mg PO DAILY 11/01/23 11/01/23 insulin glargine U-300 conc 300 70 unit subcut DAILY 11/01/23 11/01/23 unit/mL (3 mL) subcutaneous pen (Toujeo Max U-300 SoloStar) lorazepam 1 mg tablet 1 mg PO DAILY PRN panic attack 11/01/23 11/01/23 naproxen 500 mg tablet 500 mg PO BID 11/01/23 11/01/23 nystatin 100,000 unit/gram topical 1 appl topical BID 11/01/23 11/01/23 powder rimegepant 75 mg disintegrating 75 mg PO NEEDED migraine 11/01/23 11/01/23 tablet (Nurtec ODT) tirzepatide 7.5 mg/0.5 mL 7.5 mg subcut MO 11/01/23 11/01/23 subcutaneous pen injector (Bree) topiramate 50 mg tablet 50 mg PO DAILY 11/01/23 11/01/23 Previous Rx's ?Medication ?Instructions ?Recorded leg brace (Ankle Brace) #1 ea 01/22/20 pen needle, diabetic 32 gauge x #125 ea 04/01/22 (BD Ultra-Fine Mary Pen Needle) budesonide 160 mcg-glycopyr 9 2 inh inhalation BID 30 days #10.7 08/18/22 mcg-formot 4.8 mcg/actuation HFA grams inhaler (Breztri Aerosphere) blood-glucose sensor (FreeStyle #2 ea 04/12/23 Todd 3 Sensor device) insulin lispro 100 unit/mL 30 unit (0.3 mL) subcut TIDWMEAL 05/24/23 subcutaneous pen (Humalog KwikPen 30 days #27 mL (U-100) Insulin) Tirosint 150 mcg capsule 150 mcg PO DAILY #30 caps 07/21/23 (levothyroxine) flash glucose sensor (FreeStyle #2 kits 10/02/23 Todd 2 Sensor kit) sulfamethoxazole 800 1 tab PO BID #28 tabs 11/04/23 mg-trimethoprim 160 mg tablet (Bactrim DS) tramadol 50 mg tablet 50 mg PO BID PRN Pain #60 tabs 11/04/23 blood sugar diagnostic (FreeStyle #100 strips 11/30/23 Precision Ronny Strips) Allergies Allergy/AdvReac Type Severity Reaction Status Date / Time metformin Allergy Intermediate Diarrhea Verified 12/21/23 20:12 tetracycline Allergy Intermediate hives Verified 12/21/23 20:12 Latex, Natural Rubber Allergy Rash Verified 12/21/23 20:12 haloperidol [From HALDOL] AdvReac Intermediate Irritable Verified 12/21/23 20:12 Review of Systems Review of Systems: Yes Unobtainable due to mental condition and Unobtainable due to mental status [facility] Past Medical History Medical History Osteoporosis Hypercapnia COPD (chronic obstructive pulmonary disease) Hypothyroidism Multinodular thyroid HLD (hyperlipidemia) T2DM (type 2 diabetes mellitus) Pneumonitis Chronic respiratory failure Pulmonary nodules Pneumonia Acute and chronic respiratory failure with hypoxia MORGAN on CPAP Morbid (severe) obesity due to excess calories Chronic restrictive lung disease Obesity due to excess calories DM2 (diabetes mellitus, type 2) HLD (hyperlipidemia) Diabetes Goiter Vitamin D deficiency Hypothyroidism Fibula fracture Hx of fracture of patella Back pain GERD (gastroesophageal reflux disease) Hepatitis History of posttraumatic stress disorder (PTSD) Depression Myocardial infarction AAA (abdominal aortic aneurysm) without rupture Morbid obesity Hernia Umbilical hernia PTSD (post-traumatic stress disorder) ADHD Schizo affective schizophrenia Arthritis Migraine Diabetes HTN (hypertension) Gallstone Aortic aneurysm Sleep apnea Asthma Surgical History Hx of knee surgery Hx of tubal ligation History of incision and drainage Tubal ligation status Family History Family History Father Unknown family medical history Mother Unknown family medical history Sister Ovarian cancer Son No problems noted. Son Depression Son Asthma Bipolar 1 disorder ADHD Daughter No problems noted. Daughter Unknown family medical history Daughter Unknown family medical history Daughter No problems noted. Social History Social History Household Members: Spouse Housing: Apartment Are you a primary lawn caretaker to a significant other at home: No Do you presently have visiting nurse or other home services: No Unable to assess alcohol history related to: Unable to respond Alcohol intake: never Patient Tobacco Use Status: Current someday Tobacco user Tobacco use type: Cigarette Cigarette Packs Per Day: 6 Years Smoked: 35 e-Cigarette/Vaping Use: Currently Using Substance Use Type: Marijuana Advance Directives: Yes Advance Directives on File: Yes Advance Directives Date on File: 09/13/21 Do you have a plan to hurt others: No Plan service: No Current occupational status: unemployed Physical Exam ED Vital Signs: Vital Signs - 24 hr 12/21/23 20:12 12/21/23 20:58 12/21/23 21:53 Temperature 98.9 F 98.8 F 98.6 F Pulse Rate 85 85 84 Respiratory Rate 16 13 12 Blood Pressure 87/57 L 94/63 93/60 Pulse Oximetry 72 L 95 91 L Oxygen Delivery Method Room Air Non-Rebreather Mask Nasal Cannula Oxygen Flow Rate 15 3 12/21/23 22:00 12/21/23 23:35 12/21/23 23:58 Temperature 98.4 F 98.1 F 97.9 F Pulse Rate 85 84 82 Respiratory Rate 13 14 14 Blood Pressure 98/58 L 116/70 100/62 Pulse Oximetry 89 L 90 L 92 Oxygen Delivery Method Nasal Cannula CPAP CPAP Oxygen Flow Rate 5 12/22/23 00:15 Temperature Pulse Rate Respiratory Rate 14 Blood Pressure Pulse Oximetry Oxygen Delivery Method Oxygen Flow Rate BMI result Body Mass Index 72.6 Const Other: Appearance: Somnolent, arousable to painful stimuli Eyes: Pupils equal, round and reactive to light. ENT: Pharynx normal. Neck: Normal inspection. Neck supple. No lymph nodes noted. No crepitus CVS: Normal heart rate and rhythm. Pulses normal. Normal S1 and S2 Respiratory: No respiratory distress. Bilateral rales, more on the left side, no wheezing Abdomen: Soft and nontender. No rigidity. No distention. Skin: Skin warm and dry. Normal skin color. Normal skin turgor. Extremities: No lower extremity edema. No Lacerations. No Rash Neuro: Very somnolent Psych: Very somnolent Course Course Course Narrative: Patient received 2 L of fluid, based on ideal weight of 55 kg, patient is morbidly obese Also, patient received IV antibiotics Patient is too heavy to go to CT scan, only x-rays can be done Medications Administered Discontinued Medications Generic Name Dose Route Start Last Admin Trade Name Freq PRN Reason Stop Dose Admin Sodium Chloride 2,000 mls @ 999 mls/hr 12/21/23 20:32 12/21/23 23:34 Ns IVCONT 12/21/23 22:32 Infused .Q2H1M ONE Infusion Ceftriaxone Sodium 1 gm/ 50 mls @ 100 mls/hr 12/21/23 20:32 10/03/24 21:37 Sodium Chloride IV 12/21/23 21:01 Infused ONCE ONE Infusion Azithromycin 500 mg/ Sodium 250 mls @ 125 mls/hr 12/21/23 20:32 12/21/23 23:05 Chloride IV 12/21/23 22:31 Infused ONCE ONE Infusion Medical Decision Making Medical Decision Making [facility] Narrative: Patient was put on BiPAP, maintaining an oxygen saturation between 90 and 92%. -my interpretation of labs: Patient's hemoglobin 8.7, slightly lower than patient's average, but does have chronic anemia. PH of venous gases 7.45, pCO2 79, bicarb 57. Seems compensated blood pCO2 a bit higher than usual, patient on BiPAP already. Patient's sodium 129, TSH 30, free T4 nearly undetectable. Urine negative for UTI, U tox negative, alcohol level negative, serology negative My interpretation of chest x-ray: Possible left lower lobe pneumonia, difficult to read due to patient's body habitus -we can not do a CT scan of the chest due to patient's weight -we tried weaning the patient off of BiPAP but she did not well without it. Patient was put back on BiPAP -I discussed the patient with Dr. Cifuentes, patient being admitted Focused exam was done at 1 30 a.m. -overall patient is improving, stable vitals, a bit more awake Differential Diagnosis Differential Diagnoses: The differential diagnosis associated with the presentation includes (Pneumonia, respiratory failure) Admission/Observation Consideration of admission/observation: Escalation of care including admission/observation considered Consult Healthcare Provider Management of the patient was discussed with: Hospitalist and Religious Ritual Slaughterer Lab Data [facility] Lab Attestation statement: I reviewed the patient's lab results. 12/21/23 20:53 12/21/23 20:53 Labs: Lab Results 12/21/23 12/21/23 12/21/23 Range/Units 20:52 20:53 21:58 WBC 5.4 (4.8-10.8) X10*3/uL RBC 3.31 L (4.20-5.50) X10*6/uL Hgb 8.7 L (12.0-16.0) g/dl Hct 28.4 L (37.0-47.0) % MCV 85.8 (80.0-98.0) fL MCH 26.3 L (27.0-33.0) pg MCHC 30.6 L (31.0-35.0) g/dl RDW 18.1 H (11.0-16.0) % Plt Count 251 (160-400) X10*3/uL MPV 10.7 (9.4-12.3) fL Immature Gran % (Auto) 4.2 H (0.0-0.4) % Neut % (Auto) 50.7 (45-73) % Lymph % (Auto) 33.4 (20-40) % [place] % (Auto) 9.4 (2-11) % Eos % (Auto) 1.7 (0-4) % Baso % (Auto) 0.6 (0-2) % Lymph # (Auto) 1.8 (1.2-4.9) X10*3/uL [place] # (Auto) 0.5 (0.1-1.2) X10*3/uL Eos # (Auto) 0.1 (0.0-0.4) X10*3/uL Baso # (Auto) 0.0 (0.0-0.2) X10*3/uL Abs Immat Gran (auto) 0.23 H (0.00-0.03) X10*3/uL Absolute Neuts (auto) 2.8 (2.0-8.3) x10*3/uL Absolute Nucleated RBC 0.000 (0.0-0.012) X10*3/uL Nucleated RBC % (auto) 0.0 (0.0-0.2) /100WBC PT 12.8 H (10.9-12.4) SEC INR 1.1 (0.9-1.1) VBG pH 7.45 H (7.32-7.43) VBG pCO2 79 mmHg VBG pO2 77 mmHg VBG HCO3 57 H (22-26) mmol/L VBG O2 Saturation 97.0 % VBG Base Excess 28.2 mmol/L Sodium 129 L (135-145) mmol/L Potassium 5.0 (3.3-5.1) mmol/L Chloride 77 L (96-108) mmol/L Carbon Dioxide 42 H* (22-29) mmol/L Anion Gap 15 (12-20) BUN 8 L (9-16) mg/dL Creatinine 0.90 (0.5-1.4) mg/dL Estim Creat Clear Calc 141.0 Estimated GFR > 60 Random Glucose 143 H (60-115) mg/dL Lactic Acid 1.4 (0.5-2.0) mmol/L Calcium 9.6 (8.4-10.2) mg/dL Magnesium 1.9 (1.6-2.6) mg/dL Total Bilirubin 0.2 (0.0-1.0) mg/dL Direct Bilirubin < 0.2 (0.0-0.5) mg/dL AST 14 (5-31) U/L ALT 12 (0-31) U/L Alkaline Phosphatase 47 (39-117) U/L Troponin I High Sens < 2.7 (<3.5-17.0) ng/L B-Natriuretic Peptide 12 (<100) pg/mL Total Protein 6.7 (6.5-8.0) g/dL Albumin 3.8 (3.5-5.0) g/dL TSH Cancelled 30.14 H Free T4 < 0.42 L (0.71-1.85) ng/dL Urine Color Yellow Urine Appearance Clear Urine pH 6.0 (5.0-9.0) Ur Specific [place] 1.015 (1.005-1.025) Urine Protein Negative (Neg-Trace) mg/dL Urine Glucose (UA) Negative (Negative) mg/dL Urine Ketones Negative (Negative) mg/dL Urine Blood Negative (Negative) Urine Nitrite Negative (Negative) Ur Leukocyte Esterase Negative (Negative) Urine Opiates Screen Not Detected (Not Detect) Ur Buprenorphine Scrn Not Detected (Not Detect) ng/mL Ur Oxycodone Screen Not Detected (Not Detect) ng/mL Urine Methadone Screen Not Detected (Not Detect) ng/mL Urine Fentanyl Screen Not Detected (Not Detect) Ur Barbiturates Screen Not Detected (Not Detect) Ur Phencyclidine Scrn Not Detected (Not Detect) Ur Amphetamines Screen Not Detected (Not Detect) U Benzodiazepines Scrn Not Detected (Not Detect) Urine Cocaine Screen Not Detected (Not Detect) U Marijuana (THC) Screen Not Detected (Not Detect) Ethyl Alcohol Cancelled < 10 Influenza Type A (PCR) NEGATIVE (Negative) Influenza Type B (PCR) NEGATIVE (Negative) RSV RNA Qual (PCR) NEGATIVE (Negative) SARS-CoV-2 RNA (RT-PCR) NEGATIVE (Negative) Independent Interpretation I performed an independent interpretation of an: Plain X-Ray Radiology Impression Discussion of test interpretation with radiology: I have reviewed the radiologist's reading. Radiologist Impression: The lungs are hypoexpanded with left lower lobe patchy opacity question underlying infiltrates or atelectasis. Heart size is barely visible. Pulmonary vascularity appears normal. No gross bony abnormality. XR/XR chest 1V IMPRESSION: Hypoexpanded lungs with left lower lobe patchy opacity question underlying infiltrate or atelectasis. Critical Care Time Critical Care Time Critical Care Time: Yes Total Critical Care Time: 90 Attestation: I have personally provided critical care time. Time includes review of lab data, radiology results, discussion with consultants, and monitoring for potential decompensation. Intervention performed as documented. Discharge Plan Discharge Clinical Impression: Pneumonia, Respiratory failure Patient Disposition: Admitted As Inpatient
[2023-12-22] MEDS: Levothyroxine Sodium 100 MCG/5 ML VIAL IVPUSH (02:02)
--- NOTE | 2023-12-22 02:15 | PC.NURSE ---
Report called to keely in ICU. Patient transferred with Respiratory due to patient on continuous CPAP
--- NOTE | 2023-12-22 02:26 | P.HPCC_ITS ---
History of Present Illness Date of Service: 12/22/23 Attending physician on admission: Sukhdev Crawford Chief Complaint: AMS The patient is a 53-year-old female with a past medical history of COPD? ( on 2 L at home), MORGAN, morbid obesity, schizoaffective disorder, hyperlipidemia, and recent? right fibular fracture with cast placed on 12/01/2023 who presented to the emergency department? via EMS with altered mental status.? According to EMS, patient's significant other called because the patient was not making any sense and had ?low blood pressure at home.? When EMS arrived, patient was saturating 78% on 2 L which is the patient's home oxygen.? She was placed on non- rebreather? for transfer.? On arrival to the emergency department? patient is somnolent, ? arousable to painful stimuli,? ED staff attempted to wean down non-rebreather per patient is satting in the 70s,? required? BiPAP support.? Blood pressure 87/57? on arrival.? Laboratory data significant for venous blood gas? 7.45/79/77/57,? serum sodium 129, chloride 77, bicarb 42, TSH 30,? free T4<.42 ? Imaging:? ?Chest x-ray concerning for pulmonary edema ? ED course: ?Patient received 2 L bolus, ceftriaxone and? azithromycin Review of Systems 2 Review of Systems: Yes Unobtainable due to mental status PMFSH Past Medical History Medical History Osteoporosis Hypercapnia COPD (chronic obstructive pulmonary disease) Hypothyroidism Multinodular thyroid HLD (hyperlipidemia) T2DM (type 2 diabetes mellitus) Pneumonitis Chronic respiratory failure Pulmonary nodules Pneumonia Acute and chronic respiratory failure with hypoxia MORGAN on CPAP Morbid (severe) obesity due to excess calories Chronic restrictive lung disease Obesity due to excess calories DM2 (diabetes mellitus, type 2) HLD (hyperlipidemia) Diabetes Goiter Vitamin D deficiency Hypothyroidism Fibula fracture Hx of fracture of patella Back pain GERD (gastroesophageal reflux disease) Hepatitis History of posttraumatic stress disorder (PTSD) Depression Myocardial infarction AAA (abdominal aortic aneurysm) without rupture Morbid obesity Hernia Umbilical hernia PTSD (post-traumatic stress disorder) ADHD Schizo affective schizophrenia Arthritis Migraine Diabetes HTN (hypertension) Gallstone Aortic aneurysm Sleep apnea Asthma Family History Family History Father Unknown family medical history Mother Unknown family medical history Sister Ovarian cancer Son No problems noted. Son Depression Son Asthma Bipolar 1 disorder ADHD Daughter No problems noted. Daughter Unknown family medical history Daughter Unknown family medical history Daughter No problems noted. Surgical History Surgical History Hx of knee surgery Hx of tubal ligation History of incision and drainage Tubal ligation status Social History Social History Household Members: Unknown / Unable to assess Housing: Unknown / Unable to assess Are you a primary day care supervisor to a significant other at home: No Do you presently have visiting nurse or other home services: No Unable to assess alcohol history related to: Unable to respond Alcohol intake: never Patient Tobacco Use Status: Tobacco use Unknown Tobacco use type: Cigarette Cigarette Packs Per Day: 6 Years Smoked: 35 e-Cigarette/Vaping Use: Currently Using Use of substances other than those prescribed or required for medical reasons: Unable to respond Substance Use Type: Marijuana Currently Displaying Signs/Symptoms of Drug Intoxication Withdrawal: No Advance Directives: Yes Advance Directives on File: Yes Advance Directives Date on File: 09/13/21 Do you have a plan to hurt others: No Plan Recently lost weight without trying: Unsure Patient : No service: No Current occupational status: unemployed Meds Allergies Allergy/AdvReac Type Severity Reaction Status Date / Time metformin Allergy Intermediate Diarrhea Verified 12/21/23 20:12 tetracycline Allergy Intermediate hives Verified 12/21/23 20:12 Latex, Natural Rubber Allergy Rash Verified 12/21/23 20:12 haloperidol [From HALDOL] AdvReac Intermediate Irritable Verified 12/21/23 20:12 Active Medications: Current Medications Enoxaparin Sodium (Enoxaparin Sodium 30 Mg/0.3 Ml Syringe) 30 mg SUBCUT Q24H SHARI Home Medications ?Medication ?Instructions ?Recorded ?Confirmed ?Last Taken ?Type amitriptyline 10 mg tablet 10 mg PO BEDTIME 01/10/20 11/01/23 10/30/23 History benztropine 1 mg tablet 1 mg PO BID@1200,2100 01/10/20 11/01/23 10/30/23 History lisinopril 10 mg tablet 10 mg PO BEDTIME 10/11/01/23 10/30/23 History montelukast 10 mg tablet 10 mg PO BEDTIME 01/10/20 11/01/23 10/30/23 History multivitamin 1 tab PO DAILY@1200 01/10/20 11/01/23 10/30/23 History atenolol 50 mg tablet 50 mg PO DAILY@1200 04/20/21 11/01/23 10/30/23 History docusate sodium 100 mg capsule 100 mg PO DAILY PRN Constipation 04/20/21 11/01/23 Unknown History folic acid 1 mg tablet 1 tab PO DAILY 04/20/21 11/01/23 10/31/23 History furosemide 40 mg tablet 1 tab PO DAILY 04/20/21 11/01/23 10/31/23 History lurasidone 60 mg tablet (Latuda) 60 mg PO DAILY@0700 04/20/21 11/01/23 10/31/23 History melatonin 5 mg tablet 10 mg PO BEDTIME PRN insomnia 04/20/21 11/01/23 Unknown History prazosin 5 mg capsule 1 cap PO BEDTIME 04/20/21 11/01/23 10/30/23 History alendronate 70 mg tablet 1 tab PO MO@0600 04/22/21 11/01/23 10/30/23 History diclofenac sodium 1 % topical gel 2 g topical BID Pain 04/22/21 11/01/23 10/31/23 History fluticasone propionate 50 1 spray intranasal DAILY PRN 04/22/21 11/01/23 09/08/21 History mcg/actuation nasal ALLERGIES spray,suspension hydroxyzine HCl 50 mg tablet 1 tab PO TID PRN Anxiety 04/22/21 11/01/23 Unknown History cholecalciferol (vitamin D3) 50 50 mcg PO DAILY 07/20/21 11/01/23 10/31/23 History mcg (2,000 unit) tablet acetaminophen 500 mg tablet 500 mg PO Q6H PRN Pain 09/08/21 11/01/23 Unknown History lidocaine 5 % topical patch 1 patch topical DAILY 09/08/21 11/01/23 Unknown History Oxygen Home Use 03/25/22 09/29/22 Unknown History nebulizers 03/25/22 09/29/22 Unknown History quetiapine 25 mg tablet 100 mg PO DAILY@1200 PRN anxiety 08/18/22 11/01/23 Unknown History quetiapine 400 mg tablet 600 mg PO BEDTIME 08/18/22 11/01/23 10/30/23 History cetirizine 10 mg tablet 10 mg PO DAILY PRN allergies 09/08/22 11/01/23 Unknown History divalproex 250 mg tablet,extended 750 mg PO DAILY@1200 09/08/22 11/01/23 10/30/23 History release 24 hr divalproex 500 mg tablet,extended 1,000 mg PO BEDTIME 09/08/22 11/01/23 10/30/23 History release 24 hr nicotine (polacrilex) 4 mg gum 4 mg PO Q2H PRN Nicotine Cravings 09/08/22 11/01/23 Unknown History prazosin 1 mg capsule 1 mg PO BEDTIME 09/08/22 11/01/23 10/30/23 History econazole 1 % topical cream 1 appl topical BID 03/30/23 11/01/23 Unknown History albuterol sulfate 90 mcg/actuation 2 puff inhalation Q4H PRN 11/01/23 11/01/23 Unknown History aerosol inhaler (Ventolin HFA) Shortness Of Breath Or Wheezing ammonium lactate 12 % lotion 1 appl topical DAILY PRN Dry Skin 11/01/23 11/01/23 Unknown History atorvastatin 40 mg tablet 40 mg PO DAILY 11/01/23 11/01/23 10/31/23 History insulin glargine U-300 conc 300 70 unit subcut DAILY 11/01/23 11/01/23 Unknown History unit/mL (3 mL) subcutaneous pen (Toujeo Max U-300 SoloStar) lorazepam 1 mg tablet 1 mg PO DAILY PRN panic attack 11/01/23 11/01/23 Unknown History naproxen 500 mg tablet 500 mg PO BID 11/01/23 11/01/23 Unknown History nystatin 100,000 unit/gram topical 1 appl topical BID 11/01/23 11/01/23 Unknown History powder rimegepant 75 mg disintegrating 75 mg PO NEEDED migraine 11/01/23 11/01/23 Unknown History tablet (Nurtec ODT) tirzepatide 7.5 mg/0.5 mL 7.5 mg subcut MO 11/01/23 11/01/23 10/30/23 History subcutaneous pen injector (Bree) topiramate 50 mg tablet 50 mg PO DAILY 11/01/23 11/01/23 Unknown History Physical Exam 2 Vital Signs: Vital Signs: Last Vital Signs Temp 97.9 F 12/22/23 02:00 Pulse 79 12/22/23 02:00 Resp 14 12/22/23 02:00 BP 123/72 12/22/23 02:00 Pulse Ox 88 L 12/22/23 02:00 O2 Del Method CPAP 12/22/23 02:00 O2 Flow Rate 5 12/21/23 22:00 BMI result Body Mass Index 72.6 ?General:? Obtunded, responds to painful stimuli, and some verbal command ?HEENT:? Head is normocephalic, atraumatic, pupils equal round reactive to light accommodation bilaterally.? Extraocular movements appear intact.? Buccal mucosa is dry, Neck is supple ?Cardiac:? Clear S1-S2, no murmurs rubs or gallops. ?Pulmonary:? Rhonchorous throughout.? No wheezing.? on BiPAP ?Abdomen: ? Abdomen soft, non-tender, non-distended. Normal bowel sounds. No pulsatile mass. No hepatosplenomegaly. ?Musculoskeletal:? Moving all 4 extremities randomly. Right lower extremity cast ?Neurologic:? No focal deficits noted.Motor strength as above.?? ?Skin:? Intact, no lesions, clubbing or cyanosis.? No ulcers. Vascular:? 2+ pulses upper and lower extremities distally.? Lower extremity edema noted on left extremity Results Labs 12/22/23 04:35 12/22/23 04:35 Labs: Laboratory Results - last 24 hr 12/21/23 12/21/23 12/21/23 20:52 20:53 21:58 MCV 85.8 MCH 26.3 L MCHC 30.6 L RDW 18.1 H Plt Count 251 MPV 10.7 Immature Gran % (Auto) 4.2 H Neut % (Auto) 50.7 Lymph % (Auto) 33.4 [place] % (Auto) 9.4 Eos % (Auto) 1.7 Baso % (Auto) 0.6 Lymph # (Auto) 1.8 [place] # (Auto) 0.5 Eos # (Auto) 0.1 Baso # (Auto) 0.0 Abs Immat Gran (auto) 0.23 H Absolute Neuts (auto) 2.8 Absolute Nucleated RBC 0.000 Nucleated RBC % (auto) 0.0 PT 12.8 H INR 1.1 VBG pH 7.45 H VBG pCO2 79 VBG pO2 77 VBG HCO3 57 H VBG O2 Saturation 97.0 VBG Base Excess 28.2 Anion Gap 15 Estim Creat Clear Calc 141.0 Estimated GFR > 60 Random Glucose 143 H Lactic Acid 1.4 Calcium 9.6 Magnesium 1.9 Total Bilirubin 0.2 Direct Bilirubin < 0.2 AST 14 ALT 12 Alkaline Phosphatase 47 Troponin I High Sens < 2.7 B-Natriuretic Peptide 12 Total Protein 6.7 Albumin 3.8 TSH Cancelled 30.14 H Free T4 < 0.42 L Urine Color Yellow Urine Appearance Clear Urine pH 6.0 Ur Specific [place] 1.015 Urine Protein Negative Urine Glucose (UA) Negative Urine Ketones Negative Urine Blood Negative Urine Nitrite Negative Ur Leukocyte Esterase Negative Urine Opiates Screen Not Detected Ur Buprenorphine Scrn Not Detected Ur Oxycodone Screen Not Detected Urine Methadone Screen Not Detected Urine Fentanyl Screen Not Detected Ur Barbiturates Screen Not Detected Ur Phencyclidine Scrn Not Detected Ur Amphetamines Screen Not Detected U Benzodiazepines Scrn Not Detected Urine Cocaine Screen Not Detected U Marijuana (THC) Screen Not Detected Ethyl Alcohol Cancelled < 10 Influenza Type A (PCR) NEGATIVE Influenza Type B (PCR) NEGATIVE RSV RNA Qual (PCR) NEGATIVE SARS-CoV-2 RNA (RT-PCR) NEGATIVE Imaging Radiologist's Impressions: Impressions Chest X-Ray 12/21/23 21:00 IMPRESSION: Hypoexpanded lungs with left lower lobe patchy opacity question underlying infiltrate or atelectasis. Similar findings were seen on previous exam 11/01/2023 Electronically signed by: Roderick Dela Cruz MD 12/21/2023 09:57 PM EDT Assessment and Plan (1) Acute respiratory failure with hypoxia and hypercapnia: Status: Acute (2) Pulmonary edema: Status: Acute (3) Right fibular fracture: Status: Acute (4) Hypothyroidism: Status: Acute (5) Hypotension: Status: Acute Plan 53-year-old female with a past medical history of COPD? ( on 2 L at home), MORGAN, morbid obesity, schizoaffective disorder, hyperlipidemia, and recent? right fibular fracture with cast? admitted for acute hypoxic hypercapnic respiratory failure secondary to pulmonary edema Plan: Neuro:? No acute issues. Cardiac:?? Pulmonary edema:? chest x-ray with evidence of some pulmonary congestion. ? No echo in the chart.? Patient?s serum bicarb is elevated,? will diurese with Diamox.? Monitor diuresing.? Echo in the morning Hypotension: From diuresing, no evidence of sepsis. Will start Levo. Pulmonary:?? Acute hypoxic and hypercapnic respiratory failure secondary to pulmonary edema,? unable to do chest CT due to patient body habitus.? Will continue diuresing.? Wean off BiPAP as tolerated Renal:? No acute issues.?? Endo:? ?Hypothyroidism:? patient?s TSH is 30.14 and free T4 <.42,? from chart review? from previous endocrine appointment patient is noncompliant with medication.? Will give IV levothyroxine.? GI:?? No acute issues ID:? ??No acute issues Heme/Onc:? No acute issues. Psych: ? no acute issues Miscellaneous:? No acute issues. Prophylaxis:? lovenox? Diet: NPO while on BIPAP? CODE: FULL CODE Critical care time spent:? 60 minutes Case discussed with attending Dr Crawford
[2023-12-22] MEDS: acetaZOLAMIDE sodium 500 MG VIAL IVPUSH ×3 (02:34→20:19)
[2023-12-22] MEDS: Norepinephrine Bitartrate/D5W 8 MG/250 ML PLAST..BAG 20.66 MG IVCONT (03:10)
[2023-12-22 04:43] LABS: Venous Blood Gas Refer to POC result
[2023-12-22 04:44] LABS: Hemoglobin 8.7 g/dl (12.0-16.0); PLT CLUMP 1
[2023-12-22 04:46] LABS: Hematocrit 27.6 % (37.0-47.0); Mean Corpuscular HGB Conc 31.5 g/dl (31.0-35.0); Mean Corpuscular Hemoglobin 26.9 pg (27.0-33.0); Mean Corpuscular Volume 85.4 fL (80.0-98.0); Mean Platelet Volume 11.1 fL (9.4-12.3); Red Blood Count 3.23 X10*6/uL (4.20-5.50); Red Cell Distribution Width 18.3 % (11.0-16.0); White Blood Count 4.7 X10*3/uL (4.8-10.8)
[2023-12-22 04:52] LABS: VBG HCO3 53 mmol/L (22-26); VBG pCO2 95 mmHg; VBG pH 7.35 (7.32-7.43); VBG pO2 79 mmHg
[2023-12-22 05:06] LABS: B Type Natriuretic Peptide 11 pg/mL (<100)
[2023-12-22 05:09] LABS: Atypical Lymphs Percent Manual 1 % (0-6); Band Neutrophils Percent 28 % (3-5); Basophils Abs Manual 0.1 X10*3/uL (0.0-0.2); Basophils Percent Manual 2 % (0-2); Lymphocytes Absolute Manual 1.5 X10*3/uL (1.2-4.9); Lymphocytes Percent Manual 32 % (20-40); Metamyelocytes Absolute 0.2 X10*3/uL; Metamyelocytes Percent 5 %; Monocytes Absolute Manual 0.4 X10*3/uL (0.1-1.2); Monocytes Percent Manual 8 % (2-11); Myelocytes Percent 1 %; Neutrophils Absolute Manual 2.4 X10*3/uL (2.0-8.3); Neutrophils Percent Manual 23 % (45-73)
[2023-12-22 05:10] LABS: Nucleated Red Blood Cells 1 /100WBC (0-0); RBC Morphology NOTED
[2023-12-22 05:11] LABS: Hypochromasia 1+ (5-14) /OIF; Platelet Estimate DECREASED (NORMAL); Stomatocytes 2+ (15-30) /OIF; Tear Drop Cells 1+ (0-2) /OIF
[2023-12-22 05:12] LABS: Platelet Morphology Comment NOTE
[2023-12-22 05:18] LABS: Alanine Aminotransferase 11 U/L (0-31); Albumin Level 3.8 g/dL (3.5-5.0); Alkaline Phosphatase 48 U/L (39-117); Anion Gap 15 (12-20); Aspartate Amino Transferase 15 U/L (5-31); Bilirubin Total 0.2 mg/dL (0.0-1.0); Blood Urea Nitrogen 8 mg/dL (9-16); Calcium 8.9 mg/dL (8.4-10.2); Carbon Dioxide 43 mmol/L (22-29); Chloride 79 mmol/L (96-108); Creatinine Clr Calc Pharmacy 154.9; Estimated Glomerular Filt Rate > 60; Glucose Random 135 mg/dL (60-115); Magnesium 1.9 mg/dL (1.6-2.6); Phosphorus 5.3 mg/dL (2.7-4.5); Potassium 4.6 mmol/L (3.3-5.1); Sodium 132 mmol/L (135-145); Total Protein 6.7 g/dL (6.5-8.0)
[2023-12-22 05:25] LABS: T4 Thyroxine < 3.0 ug/dL (4.5-12.0)
--- NOTE | 2023-12-22 07:00 | CA_ITS ---
Transthoracic Echocardiogram Patient (Last, First, Middle): Elle Lopez, Gender: Female Date of : 1970 Age: 53 Procedure Date: 12/22/2023 Procedure Type: Transthoracic Echocardiogram Location: ICU Height: 167.64 cm Weight: 216.37 kg BSA: 2.89 m2 Heart Rate: bpm BP: 104 / 59 mmHg Sodium Chlorite Operator: TONNY Referring MD: Meera Coates NP Symptoms: Pulmonary edema Study Quality: Technically Difficult due to body habitus ECG Rhythm: Sinus Conclusions: - Normal left ventricular size and systolic function. There is mildly increased left ventricular wall thickness. The visually estimated ejection fraction is between 55-60%. Regional wall motion abnormalities can not be excluded due to suboptimal endocardial definition. Diastolic function is normal for age. - Normal right ventricular cavity size and systolic function. - There is mild dilatation of the ascending aorta measuring 3.40 cm. Findings Procedure Information Contrast agent, definity, is being given per protocol without apparent complications. Left Ventricle Normal left ventricular size and systolic function. There is mildly increased left ventricular wall thickness. The visually estimated ejection fraction is between 55-60%. Regional wall motion abnormalities can not be excluded due to suboptimal endocardial definition. Diastolic function is normal for age. Right Ventricle Normal right ventricular cavity size and systolic function. Atria The left atrium was not well visualized. Aortic Valve Normal aortic valve structure and function. There is no aortic valve stenosis. There is no aortic valve regurgitation. Mitral Valve Likely normal mitral valve structure and function. There is no mitral valve regurgitation. There is no mitral valve stenosis. Pulmonic Valve The pulmonic valve was not well visualized. Tricuspid Valve Normal tricuspid valve structure. There is no tricuspid valve regurgitation. Normal right atrial pressure. There is no evidence of pulmonary hypertension. Great Vessels There is mild dilatation of the ascending aorta measuring 3.40 cm. Venous The inferior vena cava is normal in size and collapses greater than 50% with inspiration. Pericardium/Pleural There is no evidence of pericardial effusion. Prior Study Comparison No prior study available for comparison. Measurements 2D Linear Measurements IVSd: 1.29 0.6-0.9/0.6-1.0 cm LVIDd: 5.78 3.9-5.3/4.2-5.9 cm LVIDd Index: 2.00 2.4-3.2/2.2-3.1 cm/m2 LVIDs: 4.26 2.0-3.6 cm LVPWd: 1.25 0.7-1.1 cm Ao Root: 3.80 2.1-3.5 cm LA Diam: 3.90 2.7-3.8/3.0-4.0 cm LAIDs Index: 1.35 1.5-2.3 cm/m2 LV Mass: 398.14 67-162/88-224 g LV Mass Index: 137.77 43-95/49-115 g/m2 LVOT Diam: 2.40 3.0+(-)1.3 cm Mitral Valve MV Pk E: 0.91 MV Decel Time: 268.00 E'Lateral: 8.70 E'Medial: 11.50 E/E' Med: 7.90 E/E' Lat: 10.50 PHT: 78.00 MVA PHT: 2.82 Decel [place]: 3.41 Aortic Valve AoV Pk Chris: 1.23 AoV Mn Chris: 0.86 AoV VTI: 0.22 AoV Pk Grad: 6.00 Aov Mn Grad: 4.00 FRANCO Cont.VTI: 3.04 LVOT LVOT Pk Chris: 0.83 LVOT Mn Chris: 0.56 LVOT VTI: 0.15 LVOT Pk Grad: 3.00 LVOT Mn Grad: 1.00 LVOT Diam: 2.40 LVOT Area: 4.52 Diastolic Function MV Pk E: 0.91 E'Medial: 11.50 E/E' Med: 7.90 E' Laterial: 8.70 E/E' Lat: 10.50 Tricuspid Valve TR Pk Chris: 2.24 TR Pk Grad: 20.00 RA Press: 3.00 RVSP: 23.00 Great Vessels Aorta Ao Root-2D: 3.80 2.0-3.7 cm Ao Asc: 3.40 2.1-3.4 cm Pulmonary Valve PV Pk Chris: 0.91 Peak PV Grad: 3.00 Updated in Other Vendor System with Status of Final Doug Lua MD electronically signed on 12/22/2023 3:31:30 PM with status of Final
[2023-12-22 07:28] LABS: Venous Blood Gas Refer to POC result
[2023-12-22 07:29] LABS: VBG Base Excess 24.4 mmol/L; VBG HCO3 55 mmol/L (22-26); VBG pCO2 104 mmHg; VBG pH 7.33 (7.32-7.43); VBG pO2 35 mmHg
[2023-12-22] MEDS: Hydrocortisone Sod Succ/PF 100 MG VIAL IVPUSH (08:26)
[2023-12-22] MEDS: Levothyroxine Sodium 100 MCG/5 ML VIAL 200 MCG IVPUSH (08:26)
[2023-12-22] MEDS: Enoxaparin Sodium 30 MG/0.3 ML SYRINGE 40 MG SUBCUT ×2 (08:27→20:21)
[2023-12-22] MEDS: Insulin Glargine,Hum.rec.anlog 100 UNIT/ML 10 ML VIAL 50 UNIT SUBCUT ×2 (08:27→20:19)
[2023-12-22 08:30] LABS: ABG Base Excess 25.8 mmol/L; ABG HCO3 55 mmol/L (22-26); ABG pCO2 83 mmHg (32-45); ABG pH 7.42 (7.35-7.45); ABG pO2 63 mmHg (83-108)
[2023-12-22 10:55] LABS: ABG Refer to POC result
--- NOTE | 2023-12-22 11:30 | PC.RT ---
Pt taken off Bipap and placed on 4L NC per MD order. Pt SATs 84% ETCO2 reading 60s-70s, MD aware.
[2023-12-22] MEDS: Nystatin Powder 15 GM BOTTLE 1 APPL TOPICAL (11:36)
--- NOTE | 2023-12-22 12:18 | PHA.MEDREC ---
Addendum entered by Kathy Adkins 12/25/23 20:27: Steve never called and phone not in service. Original Note: Pharmacy Consult ? Medication Reconciliation Pharmacy has completed the medication reconciliation. Pt was unable to speak, spoke with significant other (Steve) in person, who will call us when he returns home to confirm medication with bottles at home. Confirmed medications based on claims and pharmacy list. If Steve does not call back during my shift I have asked next med rec team to follow up on Day of the week for alendronate and mounjaro, Breztri inhaler, Tirosint, Topiramate and insulin dosing for Toujeo.
[2023-12-22 12:32] LABS: Glucose, Whole Blood 161 mg/dL (60-115)
[2023-12-22] MEDS: Insulin Lispro 100 UNIT/ML 3 ML VIAL SUBCUT (12:36)
[2023-12-22 13:52] LABS: ABG Base Excess 23.1 mmol/L; ABG HCO3 52 mmol/L (22-26); ABG pCO2 89 mmHg (32-45); ABG pH 7.37 (7.35-7.45); ABG pO2 67 mmHg (83-108)
--- NOTE | 2023-12-22 15:32 | MHC.CM.PN ---
Attempted to meet with pt to discuss d/c planning needs: pt with oxygen mask and difficult to understand: dyspenic at times: Attempted to contact pt's HCP, Steve at numbers listed in EMR under contacts and on HCP - both are no longer in service. Per review of EMR and discussion with ICU care team, pt resides w/Steve and has home O2 (unknown supplier) Pt has limited mobility and requires physical assistance to transfer and change position. Will refer pt for VNA and SNF in the event she requires additional supports. BLS bariatric transport to home HCP on file: PCP LOUIE Avendaño. CM to follow
--- NOTE | 2023-12-22 16:16 | PM.EVENT ---
Event Note Date of Service: 12/22/23 Event Note: The patient is a 53-year-old female with a past medical history of COPD, MORGAN, morbid obesity, schizoaffective disorder, hyperlipidemia, and recent right fibular fracture who presented to the emergency department via EMS with altered mental status.? According to EMS, patient's significant other called because the patient was not making any sense and had ?low blood pressure at home.? When EMS arrived, patient was saturating 78% and She was placed on non-rebreather?and admitted to the ICU for bipap and management of acute on chronic hypercarbic respiratory failure and CHF. She was weaned off BiPAP and downgraded later in the afternoon on the day of admission. further management per ICU note Time Spent With Patient Time: Total time managing care of this patient today ____ minutes.
[2023-12-22 16:32] LABS: Glucose, Whole Blood 140 mg/dL (60-115)
[2023-12-22 16:40] LABS: ABG Refer to POC result
[2023-12-22 22:08] LABS: Glucose, Whole Blood 130 mg/dL (60-115)
[2023-12-23] VITALS (9 sets, daily range): BP systolic 105–131; BP diastolic 54–78; PULSE 86–97; RESP 17–21; TEMP 36–37.1; O2SAT 90–100; BMI 78.3
[2023-12-23 01:20] LABS: Glucose, Whole Blood 105 mg/dL (60-115)
[2023-12-23 05:22] LABS: Glucose, Whole Blood 122 mg/dL (60-115)
[2023-12-23] MEDS: Insulin Lispro 100 UNIT/ML 3 ML VIAL SUBCUT ×2 (05:51→21:53)
[2023-12-23] MEDS: Levothyroxine Sodium 150 MCG TABLET PO (05:51)
[2023-12-23] MEDS: Acetaminophen 325 MG TABLET 975 MG PO (05:51)
[2023-12-23 06:07] LABS: Hemoglobin 8.9 g/dl (12.0-16.0); Mean Corpuscular Hemoglobin 26.8 pg (27.0-33.0); Mean Corpuscular Volume 81.3 fL (80.0-98.0); Mean Platelet Volume 10.7 fL (9.4-12.3); NRBC Pct Auto 0.3 /100WBC (0.0-0.2); Platelet Count 252 X10*3/uL (160-400); Red Blood Count 3.32 X10*6/uL (4.20-5.50); Red Cell Distribution Width 18.2 % (11.0-16.0); White Blood Count 6.3 X10*3/uL (4.8-10.8)
[2023-12-23 06:13] LABS: Venous Blood Gas Refer to POC result
[2023-12-23 06:14] LABS: VBG Base Excess 24.1 mmol/L; VBG HCO3 47 mmol/L (22-26); VBG pCO2 42 mmHg; VBG pH 7.65 (7.32-7.43); VBG pO2 233 mmHg
[2023-12-23 06:28] LABS: Alanine Aminotransferase 11 U/L (0-31); Albumin Level 4.1 g/dL (3.5-5.0); Alkaline Phosphatase 50 U/L (39-117); Anion Gap 16 (12-20); Aspartate Amino Transferase 16 U/L (5-31); Bilirubin Total 0.3 mg/dL (0.0-1.0); Blood Urea Nitrogen 7 mg/dL (9-16); Calcium 9.8 mg/dL (8.4-10.2); Carbon Dioxide 38 mmol/L (22-29); Chloride 81 mmol/L (96-108); Creatinine Clr Calc Pharmacy 151.1; Estimated Glomerular Filt Rate > 60; Glucose Random 118 mg/dL (60-115); Magnesium 1.8 mg/dL (1.6-2.6); Phosphorus 2.4 mg/dL (2.7-4.5); Potassium 3.5 mmol/L (3.3-5.1); Sodium 131 mmol/L (135-145); Total Protein 7.3 g/dL (6.5-8.0)
[2023-12-23 07:08] LABS: Glucose, Whole Blood 110 mg/dL (60-115)
[2023-12-23 07:26] LABS: Atypical Lymph Absolute Manual 0.1 x10*3/uL; Atypical Lymphs Percent Manual 2 % (0-6); Band Neutrophils Percent 23 % (3-5); Lymphocytes Absolute Manual 2.3 X10*3/uL (1.2-4.9); Lymphocytes Percent Manual 36 % (20-40); Metamyelocytes Absolute 0.2 X10*3/uL; Metamyelocytes Percent 3 %; Monocytes Absolute Manual 0.2 X10*3/uL (0.1-1.2); Monocytes Percent Manual 3 % (2-11); Neutrophils Absolute Manual 3.5 X10*3/uL (2.0-8.3); Neutrophils Percent Manual 33 % (45-73); Nucleated Red Blood Cells 1 /100WBC (0-0); RBC Morphology NOTED
[2023-12-23 07:27] LABS: Ovalocytes 1+ (5-14) /OIF
[2023-12-23 07:29] LABS: Stomatocytes 1+ (5-14) /OIF; Target Cells 1+ (5-14) /OIF
[2023-12-23 07:30] LABS: Hypochromasia 1+ (5-14) /OIF
[2023-12-23 07:31] LABS: Platelet Estimate NORMAL (NORMAL); Tear Drop Cells 1+ (0-2) /OIF
[2023-12-23 07:33] LABS: Large Platelet PRESENT; Platelet Morphology Comment NOTED
[2023-12-23] MEDS: acetaZOLAMIDE sodium 500 MG VIAL IVPUSH ×2 (09:31→21:52)
[2023-12-23] MEDS: Insulin Glargine,Hum.rec.anlog 100 UNIT/ML 10 ML VIAL 50 UNIT SUBCUT ×2 (09:31→21:52)
[2023-12-23] MEDS: Furosemide 40 MG TABLET PO (09:31)
[2023-12-23] MEDS: Folic Acid 1 MG TABLET PO (09:31)
[2023-12-23] MEDS: Atorvastatin Calcium 40 MG TABLET PO (09:31)
[2023-12-23] MEDS: Lidocaine 4 % Patch ADH..PATCH 1 PATCH TRANSDERMA (09:32)
[2023-12-23] MEDS: Nystatin Powder 15 GM BOTTLE 1 APPL TOPICAL ×2 (09:33→21:00)
[2023-12-23] MEDS: Enoxaparin Sodium 30 MG/0.3 ML SYRINGE 40 MG SUBCUT ×2 (10:16→21:52)
[2023-12-23 11:05] LABS: Glucose, Whole Blood 117 mg/dL (60-115)
[2023-12-23] MEDS: Benztropine Mesylate 1 MG TABLET PO ×2 (12:43→21:52)
[2023-12-23] MEDS: traMADoL HCL 50 MG TABLET PO (12:43)
[2023-12-23] MEDS: Divalproex Sodium ER 500 MG TAB.ER.24H PO ×2 (12:43→21:52)
--- NOTE | 2023-12-23 15:15 | P.PNIM_ITS ---
Subjective Subjective Date of Service: 12/23/23 Interval History: seen and examined this morning follow up respiratory failure, CO2 narcosis awake and alert this am no sob Review of Systems Review of Systems: Yes all other systems are reviewed and are negative Constitutional Constitutional: Denies chills and Denies fever(s) ENT Ears, Nose, Mouth, and Throat: Denies dizziness Cardiovascular Cardiovascular: Denies chest pain and Denies dyspnea Respiratory Respiratory: Denies dyspnea Gastrointestinal Gastrointestinal: Denies abdominal pain Neurologic Neurologic: Denies dizziness Physical Exam 2 Vital Signs: Vital Signs: Last Vital Signs Temp 98.8 F 12/23/23 11:17 Pulse 89 12/23/23 11:17 Resp 20 12/23/23 15:14 BP 127/70 12/23/23 11:17 Pulse Ox 94 12/23/23 11:17 O2 Del Method Oxymask 12/23/23 11:17 O2 Flow Rate 5 12/23/23 11:17 FiO2 50 12/23/23 08:00 BMI result Body Mass Index 78.3 Const: General: comfortable, alert and awake Nutritional Appearance: obese Orientation/consciousness: patient oriented x3 Resp: Other: diminished, clear Effort & Inspection: normal respiratory effort, able to speak in complete sentences, no respiratory distress and no use of accessory muscles Cardio: Rate: regular rate GI: Inspection: No distended and Yes obesity Palpation (GI): Soft to palpation and nontender Neuro: General: patient oriented x3 and moves all extremities Extrem: Other: right ankle in cast Objective Data Active Medications Acetaminophen (Acetaminophen 325 Mg Tablet) 975 mg PO Q6H PRN PRN Reason: right leg pain Last Admin: 12/23/23 05:51 Dose: 975 mg Documented By: MAKEDA Acetazolamide (Acetazolamide Sodium 500 Mg Vial) 500 mg IVPUSH BID [facility] Last Admin: 12/23/23 09:31 Dose: 500 mg Documented By: ASH Albuterol Sulfate (Albuterol Sulfate 90 Mcg 8 Gm Inhaler) 2 puff INHALE Q4H PRN PRN Reason: Shortness Of Breath Or Wheezing Atorvastatin Calcium (Atorvastatin Calcium 40 Mg Tablet) 40 mg PO DAILY [facility] Last Admin: 12/23/23 09:31 Dose: 40 mg Documented By: ASH Benztropine Mesylate (Benztropine Mesylate 1 Mg Tablet) 1 mg PO BID@1200,2100 [facility] Last Admin: 12/23/23 12:43 Dose: 1 mg Documented By: ASH Divalproex Sodium (Divalproex Sodium Er 500 Mg Tab.Er.24h) 500 mg PO BEDTIME [facility] Divalproex Sodium (Divalproex Sodium Er 500 Mg Tab.Er.24h) 500 mg PO DAILY@1200 [facility] Last Admin: 12/23/23 12:43 Dose: 500 mg Documented By: ASH Docusate Sodium (Docusate Sodium 100 Mg Capsule) 100 mg PO DAILY PRN PRN Reason: Constipation Enoxaparin Sodium (Enoxaparin Sodium 30 Mg/0.3 Ml Syringe) 40 mg SUBCUT BID [facility] Last Admin: 12/23/23 10:16 Dose: 40 mg Documented By: ASH Folic Acid (Folic Acid 1 Mg Tablet) 1 mg PO DAILY [facility] Last Admin: 12/23/23 09:31 Dose: 1 mg Documented By: ASH Furosemide (Furosemide 40 Mg Tablet) 40 mg PO DAILY [facility]; Protocol Last Admin: 12/23/23 09:31 Dose: 40 mg Documented By: ASH Insulin Glargine (Insulin Glargine,Hum.Rec.Anlog 100 Unit/Ml 10 Ml Vial) 50 unit SUBCUT BID [facility] Last Admin: 12/23/23 09:31 Dose: 50 unit Documented By: ASH Insulin Human Lispro (Insulin Lispro 100 Unit/Ml 3 Ml Vial) 0 unit SUBCUT Q6H [facility]; Protocol Last Admin: 12/23/23 12:43 Dose: Not Given Documented By: ASH Non-Admin Reason: No Insulin Coverage Lactic Acid (Ammonium Lactate 12 % Lotion 226 Gm Bottle) 1 appl TOPICAL DAILY PRN; Protocol PRN Reason: Dry Skin Levothyroxine Sodium (Levothyroxine Sodium 150 Mcg Tablet) 150 mcg PO DAILY@0600 [facility] Last Admin: 12/23/23 05:51 Dose: 150 mcg Documented By: MAKEDA Lidocaine (Lidocaine 4 % Patch Adh..Patch) 1 patch TRANSDERMA DAILY [facility] Last Admin: 12/23/23 09:32 Dose: 1 patch Documented By: ASH Lurasidone HCl (Lurasidone Hcl 20 Mg Tablet) 60 mg PO DAILY@0800 [facility] Last Admin: 12/23/23 09:33 Dose: Not Given Documented By: ASH Non-Admin Reason: no 350 romana diet Montelukast Sodium (Montelukast Sodium 10 Mg Tablet) 10 mg PO BEDTIME [facility] Nicotine Polacrilex (Nicotine Polacrilex 2 Mg Gum) 4 mg BUCCAL Q2H PRN PRN Reason: Nicotine Cravings Nystatin (Nystatin Powder 15 Gm Bottle) 1 appl TOPICAL BID [facility]; Protocol Last Admin: 12/23/23 09:33 Dose: 1 appl Documented By: ASH Prazosin HCl (Prazosin Hcl 5 Mg Capsule) 5 mg PO BEDTIME [facility]; Protocol Prazosin HCl (Prazosin Hcl 1 Mg Capsule) 1 mg PO BEDTIME [facility]; Protocol Quetiapine Fumarate (Quetiapine Fumarate 200 Mg Tablet) 200 mg PO BEDTIME [facility] Tramadol HCl (Tramadol Hcl 50 Mg Tablet) 50 mg PO BID PRN PRN Reason: Pain, Moderate(Pain Scale 4-6) Last Admin: 12/23/23 12:43 Dose: 50 mg Documented By: ASH Labs 12/23/23 05:57 12/23/23 05:57 Labs: Laboratory Results - last 24 hr 12/22/23 12/22/23 12/23/23 16:29 20:40 01:15 MCV MCH MCHC RDW Plt Count MPV Immature Gran % (Auto) Neut % (Auto) Lymph % (Auto) Mercer % (Auto) Eos % (Auto) Baso % (Auto) Lymph # (Auto) Mercer # (Auto) Eos # (Auto) Baso # (Auto) Abs Immat Gran (auto) Absolute Neuts (auto) Absolute Nucleated RBC Nucleated RBC % (auto) Neutrophils % (Manual) Band Neutrophils % Lymphocytes % (Manual) Atypical Lymphs % (Man) Monocytes % (Manual) Metamyelocytes % Abs Neuts (Manual) Lymphocytes # (Manual) Atyp Lymphs # (Manual) Monocytes # (Manual) Metamyelocytes # Nucleated RBCs Platelet Estimate Large Platelets Plt Morphology Comment RBC Morphology Hypochromasia Target Cells Tear Drop Cells Ovalocytes Stomatocytes VBG pH VBG pCO2 VBG pO2 VBG HCO3 VBG O2 Saturation VBG Base Excess Anion Gap Estim Creat Clear Calc Estimated GFR POC Glucose 140 H 130 H 105 Random Glucose Calcium Phosphorus Magnesium Total Bilirubin AST ALT Alkaline Phosphatase Total Protein Albumin 12/23/23 12/23/2312/22/24 05:15 05:57 06:06 MCV 81.3 MCH 26.8 L MCHC 33.0 RDW 18.2 H Plt Count 252 MPV 10.7 Immature Gran % (Auto) Cancelled Neut % (Auto) Cancelled Lymph % (Auto) Cancelled Mercer % (Auto) Cancelled Eos % (Auto) Cancelled Baso % (Auto) Cancelled Lymph # (Auto) Cancelled Mercer # (Auto) Cancelled Eos # (Auto) Cancelled Baso # (Auto) Cancelled Abs Immat Gran (auto) Cancelled Absolute Neuts (auto) Cancelled Absolute Nucleated RBC 0.020 H Nucleated RBC % (auto) 0.3 H Neutrophils % (Manual) 33 L Band Neutrophils % 23 H Lymphocytes % (Manual) 36 Atypical Lymphs % (Man) 2 Monocytes % (Manual) 3 Metamyelocytes % 3 Abs Neuts (Manual) 3.5 Lymphocytes # (Manual) 2.3 Atyp Lymphs # (Manual) 0.1 Monocytes # (Manual) 0.2 Metamyelocytes # 0.2 Nucleated RBCs 1 H Platelet Estimate NORMAL Large Platelets PRESENT Plt Morphology Comment NOTED RBC Morphology NOTED Hypochromasia 1+ (5-14) Target Cells 1+ (5-14) Tear Drop Cells 1+ (0-2) Ovalocytes 1+ (5-14) Stomatocytes 1+ (5-14) VBG pH 7.65 H* VBG pCO2 42 VBG pO2 233 VBG HCO3 47 H VBG O2 Saturation 100.0 VBG Base Excess 24.1 Anion Gap 16 Estim Creat Clear Calc 151.1 Estimated GFR > 60 POC Glucose 122 H Random Glucose 118 H Calcium 9.8 D Phosphorus 2.4 L Magnesium 1.8 Total Bilirubin 0.3 AST 16 ALT 11 Alkaline Phosphatase 50 Total Protein 7.3 Albumin 4.1 12/23/23 12/23/23 07:05 11:01 MCV MCH MCHC RDW Plt Count MPV Immature Gran % (Auto) Neut % (Auto) Lymph % (Auto) Mercer % (Auto) Eos % (Auto) Baso % (Auto) Lymph # (Auto) Mercer # (Auto) Eos # (Auto) Baso # (Auto) Abs Immat Gran (auto) Absolute Neuts (auto) Absolute Nucleated RBC Nucleated RBC % (auto) Neutrophils % (Manual) Band Neutrophils % Lymphocytes % (Manual) Atypical Lymphs % (Man) Monocytes % (Manual) Metamyelocytes % Abs Neuts (Manual) Lymphocytes # (Manual) Atyp Lymphs # (Manual) Monocytes # (Manual) Metamyelocytes # Nucleated RBCs Platelet Estimate Large Platelets Plt Morphology Comment RBC Morphology Hypochromasia Target Cells Tear Drop Cells Ovalocytes Stomatocytes VBG pH VBG pCO2 VBG pO2 VBG HCO3 VBG O2 Saturation VBG Base Excess Anion Gap Estim Creat Clear Calc Estimated GFR POC Glucose 110 117 H Random Glucose Calcium Phosphorus Magnesium Total Bilirubin AST ALT Alkaline Phosphatase Total Protein Albumin Microbiology Microbiology Results: Microbiology 12/21/23 20:57 Blood Culture - Preliminary Blood - Venous No growth after 24 hours. 12/21/23 20:57 Blood Culture - Preliminary Blood - Venous No growth after 24 hours. Assessment and Plan (1) Respiratory failure: Status: Acute (2) Acute respiratory failure with hypoxia and hypercapnia: Status: Acute (3) Pulmonary edema: Status: Acute Plan This is a 53-year-old female with history of COPD/restrictive lung disease on CPAP, oxygen at baseline, type 2 diabetes, morbid obesity, MORGAN, schizoaffective hypothyroidism, PTSD who presented to the ED Acute on chronic respiratory failure with hypoxia and hypercapnia secondary to MORGAN/obesity hypoventilation syndrome and pulmonary edema On home oxygen 6L and CPAP at baseline elevated bicarb, started on diamox, now starting to trend down Mental health will re-introduce 50% dose of mental health meds to prevent over-sedation as pt admitted for co2 retention chronic mild Hyponatremia 131 Hypothyroidism likely noncompliant, TSH elevated resume Synthroid HTN lasix atenolol, lisinopril on hold COPD no exacerbation albuterol as needed DM2 ss, ada diet long acting insulin - dose reduced from baseline right ankle fracture continue tramadol HLD statin dvt ppx - lovenox Quality Stroke Does the patient have a stroke diagnosis?: No VTE Prior VTE?: No VTE Risk Level:: Medical - moderate - high VTE Device Contraindication: N/A - Device Ordered VTE Drug Contraindication: N/A - Med Ordered
[2023-12-23 16:26] LABS: Glucose, Whole Blood 140 mg/dL (60-115)
[2023-12-23] MEDS: Trolamine Salicylate 10 % Cream 85 GM TUBE 1 APPL TOPICAL (21:00)
[2023-12-23 21:15] LABS: Glucose, Whole Blood 160 mg/dL (60-115)
[2023-12-23] MEDS: Prazosin HCL 5 MG CAPSULE PO (21:51)
[2023-12-23] MEDS: Prazosin HCL 1 MG CAPSULE PO (21:52)
[2023-12-23] MEDS: QUEtiapine Fumarate 200 MG TABLET PO (21:52)
[2023-12-23] MEDS: Montelukast Sodium 10 MG TABLET PO (21:52)
[2023-12-24] VITALS (7 sets, daily range): BP systolic 104–147; BP diastolic 63–81; PULSE 85–104; RESP 16–23; TEMP 36.1–36.9; O2SAT 91–98
[2023-12-24] MEDS: Levothyroxine Sodium 150 MCG TABLET PO (05:51)
[2023-12-24 07:08] LABS: Glucose, Whole Blood 138 mg/dL (60-115)
[2023-12-24] MEDS: acetaZOLAMIDE sodium 500 MG VIAL IVPUSH (08:00)
[2023-12-24] MEDS: Insulin Glargine,Hum.rec.anlog 100 UNIT/ML 10 ML VIAL 50 UNIT SUBCUT ×2 (08:03→20:50)
[2023-12-24] MEDS: Lurasidone HCl 20 MG TABLET 60 MG PO (08:03)
[2023-12-24] MEDS: Folic Acid 1 MG TABLET PO (08:03)
[2023-12-24] MEDS: Atorvastatin Calcium 40 MG TABLET PO (08:03)
[2023-12-24] MEDS: Furosemide 40 MG TABLET PO (08:04)
[2023-12-24] MEDS: Nystatin Powder 15 GM BOTTLE 1 APPL TOPICAL ×2 (08:04→20:49)
[2023-12-24] MEDS: Lidocaine 4 % Patch ADH..PATCH 1 PATCH TRANSDERMA (08:04)
[2023-12-24] MEDS: Enoxaparin Sodium 30 MG/0.3 ML SYRINGE 40 MG SUBCUT ×2 (10:07→20:50)
--- NOTE | 2023-12-24 10:28 | MHC.CM.PN ---
Per LIZZETH/Patricia, Patient is medically cleared for dc to SNF today. 2 SNFs ([facility] and [facility]) have been following; referrals have been updated and CM awaits response. CM will follow.
[2023-12-24 10:53] LABS: Glucose, Whole Blood 154 mg/dL (60-115)
[2023-12-24] MEDS: Divalproex Sodium ER 500 MG TAB.ER.24H PO (12:08)
[2023-12-24] MEDS: Benztropine Mesylate 1 MG TABLET PO ×2 (12:08→20:52)
[2023-12-24] MEDS: Insulin Lispro 100 UNIT/ML 3 ML VIAL SUBCUT ×3 (12:09→20:50)
[2023-12-24] MEDS: Docusate Sodium 100 MG CAPSULE PO (12:31)
--- NOTE | 2023-12-24 15:30 | P.PNIM_ITS ---
Subjective Subjective Date of Service: 12/24/23 Interval History: Seen and examined this morning Follow-up for acute on chronic respiratory failure Breathing stable, no shortness of breath Review of Systems Review of Systems: Yes all other systems are reviewed and are negative Constitutional Constitutional: Denies chills and Denies fever(s) Cardiovascular Cardiovascular: Denies chest pain and Denies dyspnea Respiratory Respiratory: Denies dyspnea Gastrointestinal Gastrointestinal: Denies abdominal pain, Denies nausea and Denies vomiting Physical Exam 2 Vital Signs: Vital Signs: Last Vital Signs Temp 97.1 F 12/24/23 11:13 Pulse 88 12/24/23 11:13 Resp 20 12/24/23 11:13 BP 114/67 12/24/23 11:13 Pulse Ox 92 12/24/23 11:13 O2 Del Method Nasal Cannula 12/24/23 11:13 O2 Flow Rate 5 12/24/23 11:13 FiO2 50 12/23/23 08:00 BMI result Body Mass Index 78.3 Const: General: comfortable, alert and awake Nutritional Appearance: obese Orientation/consciousness: patient oriented x3 Resp: Other: diminished, clear Effort & Inspection: normal respiratory effort, able to speak in complete sentences, no respiratory distress and no use of accessory muscles Cardio: Rate: regular rate GI: Inspection: No distended and Yes obesity Palpation (GI): Soft to palpation and nontender Neuro: General: patient oriented x3 and moves all extremities Extrem: Other: right ankle in cast Objective Data Active Medications Acetaminophen (Acetaminophen 325 Mg Tablet) 975 mg PO Q6H PRN PRN Reason: right leg pain Last Admin: 12/23/23 05:51 Dose: 975 mg Documented By: MAKEDA Acetazolamide (Acetazolamide Sodium 500 Mg Vial) 500 mg IVPUSH BID [facility] Last Admin: 12/24/23 08:00 Dose: 500 mg Documented By: ASH Albuterol Sulfate (Albuterol Sulfate 90 Mcg 8 Gm Inhaler) 2 puff INHALE Q4H PRN PRN Reason: Shortness Of Breath Or Wheezing Atorvastatin Calcium (Atorvastatin Calcium 40 Mg Tablet) 40 mg PO DAILY [facility] Last Admin: 12/24/23 08:03 Dose: 40 mg Documented By: ASH Benztropine Mesylate (Benztropine Mesylate 1 Mg Tablet) 1 mg PO BID@1200,2100 [facility] Last Admin: 12/24/23 12:08 Dose: 1 mg Documented By: ASH Divalproex Sodium (Divalproex Sodium Er 250 Mg Tab.Er.24h) 750 mg PO BEDTIME [facility] Divalproex Sodium (Divalproex Sodium Er 250 Mg Tab.Er.24h) 750 mg PO DAILY@1200 [facility] Docusate Sodium (Docusate Sodium 100 Mg Capsule) 100 mg PO DAILY PRN PRN Reason: Constipation Last Admin: 12/24/23 12:31 Dose: 100 mg Documented By: ASH Enoxaparin Sodium (Enoxaparin Sodium 30 Mg/0.3 Ml Syringe) 40 mg SUBCUT BID [facility] Last Admin: 12/24/23 10:07 Dose: 40 mg Documented By: ASH Folic Acid (Folic Acid 1 Mg Tablet) 1 mg PO DAILY [facility] Last Admin: 12/24/23 08:03 Dose: 1 mg Documented By: ASH Furosemide (Furosemide 40 Mg Tablet) 40 mg PO DAILY [facility]; Protocol Last Admin: 12/24/23 08:04 Dose: 40 mg Documented By: ASH Insulin Glargine (Insulin Glargine,Hum.Rec.Anlog 100 Unit/Ml 10 Ml Vial) 50 unit SUBCUT BID [facility] Last Admin: 12/24/23 08:03 Dose: 50 unit Documented By: ASH Insulin Human Lispro (Insulin Lispro 100 Unit/Ml 3 Ml Vial) 0 unit SUBCUT QIDACHS [facility]; Protocol Last Admin: 12/24/23 12:09 Dose: 2 unit Documented By: ASH Lactic Acid (Ammonium Lactate 12 % Lotion 226 Gm Bottle) 1 appl TOPICAL DAILY PRN; Protocol PRN Reason: Dry Skin Levothyroxine Sodium (Levothyroxine Sodium 150 Mcg Tablet) 150 mcg PO DAILY@0600 [facility] Last Admin: 12/24/23 05:51 Dose: 150 mcg Documented By: OR[place]O Lidocaine (Lidocaine 4 % Patch Adh..Patch) 1 patch TRANSDERMA DAILY [facility] Last Admin: 12/24/23 08:04 Dose: 1 patch Documented By: ASH Lurasidone HCl (Lurasidone Hcl 20 Mg Tablet) 60 mg PO DAILY@0800 [facility] Last Admin: 12/24/23 08:03 Dose: 60 mg Documented By: ASH Montelukast Sodium (Montelukast Sodium 10 Mg Tablet) 10 mg PO BEDTIME [facility] Last Admin: 12/23/23 21:52 Dose: 10 mg Documented By: OR[place]O Nicotine Polacrilex (Nicotine Polacrilex 2 Mg Gum) 4 mg BUCCAL Q2H PRN PRN Reason: Nicotine Cravings Nystatin (Nystatin Powder 15 Gm Bottle) 1 appl TOPICAL BID [facility]; Protocol Last Admin: 12/24/23 08:04 Dose: 1 appl Documented By: ASH Polyethylene Glycol (Polyethylene Glycol 3350 17 Gm Powd.Pack) 17 gm PO DAILY [facility] Prazosin HCl (Prazosin Hcl 5 Mg Capsule) 5 mg PO BEDTIME [facility]; Protocol Last Admin: 12/23/23 21:51 Dose: 5 mg Documented By: OR[place]O Prazosin HCl (Prazosin Hcl 1 Mg Capsule) 1 mg PO BEDTIME [facility]; Protocol Last Admin: 12/23/23 21:52 Dose: 1 mg Documented By: [place] Quetiapine Fumarate (Quetiapine Fumarate 300 Mg Tablet) 300 mg PO BEDTIME [facility] Tramadol HCl (Tramadol Hcl 50 Mg Tablet) 50 mg PO BID PRN PRN Reason: Pain, Moderate(Pain Scale 4-6) Last Admin: 12/23/23 12:43 Dose: 50 mg Documented By: ASH Trolamine Salicylate (Trolamine Salicylate 10 % Cream 85 Gm Tube) 1 appl TOPICAL BID [facility]; Protocol Last Admin: 12/24/23 10:19 Dose: Not Given Documented By: ASH Non-Admin Reason: Patient Refused Labs 12/23/23 05:57 12/23/23 05:57 Labs: Laboratory Results - last 24 hr 12/23/23 12/23/23 12/24/23 16:23 21:12 06:56 POC Glucose 140 H 160 H 138 H 12/24/23 10:46 POC Glucose 154 H Microbiology Microbiology Results: Microbiology 12/21/23 20:57 Blood Culture - Preliminary Blood - Venous No growth after 48 hours. 12/21/23 20:57 Blood Culture - Preliminary Blood - Venous No growth after 48 hours. Assessment and Plan (1) Pulmonary edema: Status: Acute (2) Acute respiratory failure with hypoxia and hypercapnia: Status: Acute Plan This is a 53-year-old female with history of COPD/restrictive lung disease on CPAP, oxygen at baseline, type 2 diabetes, morbid obesity, MORGAN, schizoaffective hypothyroidism, PTSD who presented to the ED Acute on chronic respiratory failure with hypoxia and hypercapnia secondary to MORGAN/obesity hypoventilation syndrome and pulmonary edema On home oxygen 6L and CPAP at baseline elevated bicarb, started on diamox, stop diamox Mood initially re-introduce 50% dose of depakote to prevent over-sedation as pt admitted for co2 retention - increase to 750 bid increase Seroquel to 300 (baseline 600) Continue Latuda, Minipress, Cogentin Ativan on hold chronic mild Hyponatremia 131 Hypothyroidism likely noncompliant, TSH elevated resume Synthroid HTN lasix atenolol, lisinopril on hold COPD no exacerbation albuterol as needed DM2 ss, ada diet long acting insulin - dose reduced from baseline right ankle fracture continue tramadol fu with ortho on 11/30 - plan for 4 more weeks weight bearing HLD statin dvt ppx - lovenox dispo - possible return home with services vs rehab Quality Stroke Does the patient have a stroke diagnosis?: No VTE Prior VTE?: No VTE Risk Level:: Medical - moderate - high VTE Device Contraindication: N/A - Device Ordered VTE Drug Contraindication: N/A - Med Ordered
[2023-12-24] MEDS: polyethylene glycoL 3350 17 GM POWD.PACK PO (15:54)
[2023-12-24 17:04] LABS: Glucose, Whole Blood 185 mg/dL (60-115)
[2023-12-24] MEDS: Sodium Phosphate,Mono-Dibasic 133 ML ENEMA PR (17:30)
[2023-12-24 20:47] LABS: Glucose, Whole Blood 155 mg/dL (60-115)
[2023-12-24] MEDS: Trolamine Salicylate 10 % Cream 85 GM TUBE 1 APPL TOPICAL (20:49)
[2023-12-24] MEDS: Montelukast Sodium 10 MG TABLET PO (20:51)
[2023-12-24] MEDS: Prazosin HCL 1 MG CAPSULE PO (20:51)
[2023-12-24] MEDS: Divalproex Sodium ER 250 MG TAB.ER.24H 750 MG PO (20:51)
[2023-12-24] MEDS: QUEtiapine Fumarate 300 MG TABLET PO (20:52)
[2023-12-24] MEDS: Prazosin HCL 5 MG CAPSULE PO (20:52)
[2023-12-25] VITALS (11 sets, daily range): BP systolic 96–135; BP diastolic 53–73; PULSE 66–98; RESP 15–20; TEMP 35.9–37.1; O2SAT 90–99
[2023-12-25] MEDS: Levothyroxine Sodium 150 MCG TABLET PO (05:39)
[2023-12-25 07:19] LABS: Glucose, Whole Blood 135 mg/dL (60-115)
[2023-12-25] MEDS: Insulin Glargine,Hum.rec.anlog 100 UNIT/ML 10 ML VIAL 50 UNIT SUBCUT ×2 (08:14→20:32)
[2023-12-25] MEDS: Folic Acid 1 MG TABLET PO (08:15)
[2023-12-25] MEDS: Enoxaparin Sodium 30 MG/0.3 ML SYRINGE 40 MG SUBCUT ×2 (08:15→20:32)
[2023-12-25] MEDS: Atorvastatin Calcium 40 MG TABLET PO (08:15)
[2023-12-25] MEDS: Furosemide 40 MG TABLET PO (08:15)
[2023-12-25] MEDS: Lurasidone HCl 20 MG TABLET 60 MG PO (08:15)
[2023-12-25] MEDS: polyethylene glycoL 3350 17 GM POWD.PACK PO (08:16)
[2023-12-25] MEDS: Nystatin Powder 15 GM BOTTLE 1 APPL TOPICAL ×2 (10:59→20:32)
[2023-12-25 11:11] LABS: Glucose, Whole Blood 179 mg/dL (60-115)
[2023-12-25] MEDS: Divalproex Sodium ER 250 MG TAB.ER.24H 750 MG PO ×2 (11:27→20:31)
[2023-12-25] MEDS: Benztropine Mesylate 1 MG TABLET PO ×2 (11:27→20:31)
[2023-12-25] MEDS: Insulin Lispro 100 UNIT/ML 3 ML VIAL SUBCUT ×3 (11:30→20:32)
--- NOTE | 2023-12-25 11:48 | P.PNIM_ITS ---
Subjective Subjective Date of Service: 12/25/23 Interval History: Seen and examined this morning Follow-up for acute on chronic respiratory failure Breathing stable, no shortness of breath Review of Systems Review of Systems: Yes all other systems are reviewed and are negative Constitutional Constitutional: Denies chills and Denies fever(s) Cardiovascular Cardiovascular: Denies chest pain and Denies dyspnea Respiratory Respiratory: Denies dyspnea Gastrointestinal Gastrointestinal: Denies abdominal pain, Denies nausea and Denies vomiting Physical Exam 2 Vital Signs: Vital Signs: Last Vital Signs Temp 97.5 F 12/25/23 07:51 Pulse 89 12/25/23 07:51 Resp 20 12/25/23 07:51 BP 115/70 12/25/23 07:51 Pulse Ox 90 L 12/25/23 07:51 O2 Del Method Nasal Cannula 12/25/23 07:51 O2 Flow Rate 6 12/25/23 07:51 FiO2 50 12/23/23 08:00 BMI result Body Mass Index 78.3 Appearing in no acute distress lung sounds are clear to auscultation heart regular rate rhythm, clear S1, S2 positive bowel sounds, abdomen is soft, nontender. obese neuro patient is alert x3, no focal deficits Objective Data Active Medications Acetaminophen (Acetaminophen 325 Mg Tablet) 975 mg PO Q6H PRN PRN Reason: right leg pain Last Admin: 12/23/23 05:51 Dose: 975 mg Documented By: MAKEDA Albuterol Sulfate (Albuterol Sulfate 90 Mcg 8 Gm Inhaler) 2 puff INHALE Q4H PRN PRN Reason: Shortness Of Breath Or Wheezing Atorvastatin Calcium (Atorvastatin Calcium 40 Mg Tablet) 40 mg PO DAILY [facility] Last Admin: 12/25/23 08:15 Dose: 40 mg Documented By: ASH Benztropine Mesylate (Benztropine Mesylate 1 Mg Tablet) 1 mg PO BID@1200,2100 [facility] Last Admin: 12/25/23 11:27 Dose: 1 mg Documented By: ASH Divalproex Sodium (Divalproex Sodium Er 250 Mg Tab.Er.24h) 750 mg PO BEDTIME [facility] Last Admin: 12/24/23 20:51 Dose: 750 mg Documented By: MAKEDA Divalproex Sodium (Divalproex Sodium Er 250 Mg Tab.Er.24h) 750 mg PO DAILY@1200 [facility] Last Admin: 12/25/23 11:27 Dose: 750 mg Documented By: ASH Docusate Sodium (Docusate Sodium 100 Mg Capsule) 100 mg PO DAILY PRN PRN Reason: Constipation Last Admin: 12/24/23 12:31 Dose: 100 mg Documented By: ASH Enoxaparin Sodium (Enoxaparin Sodium 30 Mg/0.3 Ml Syringe) 40 mg SUBCUT BID [facility] Last Admin: 12/25/23 08:15 Dose: 40 mg Documented By: ASH Folic Acid (Folic Acid 1 Mg Tablet) 1 mg PO DAILY [facility] Last Admin: 12/25/23 08:15 Dose: 1 mg Documented By: ASH Furosemide (Furosemide 40 Mg Tablet) 40 mg PO DAILY [facility]; Protocol Last Admin: 12/25/23 08:15 Dose: 40 mg Documented By: ASH Insulin Glargine (Insulin Glargine,Hum.Rec.Anlog 100 Unit/Ml 10 Ml Vial) 50 unit SUBCUT BID [facility] Last Admin: 12/25/23 08:14 Dose: 50 unit Documented By: ASH Insulin Human Lispro (Insulin Lispro 100 Unit/Ml 3 Ml Vial) 0 unit SUBCUT QIDACHS [facility]; Protocol Last Admin: 12/25/23 11:30 Dose: 4 unit Documented By: ASH Lactic Acid (Ammonium Lactate 12 % Lotion 226 Gm Bottle) 1 appl TOPICAL DAILY PRN; Protocol PRN Reason: Dry Skin Levothyroxine Sodium (Levothyroxine Sodium 150 Mcg Tablet) 150 mcg PO DAILY@0600 [facility] Last Admin: 12/25/23 05:39 Dose: 150 mcg Documented By: MAKEDA Lidocaine (Lidocaine 4 % Patch Adh..Patch) 1 patch TRANSDERMA DAILY [facility] Last Admin: 12/25/23 08:17 Dose: Not Given Documented By: ASH Non-Admin Reason: patient refused Lurasidone HCl (Lurasidone Hcl 20 Mg Tablet) 60 mg PO DAILY@0800 [facility] Last Admin: 12/25/23 08:15 Dose: 60 mg Documented By: ASH Montelukast Sodium (Montelukast Sodium 10 Mg Tablet) 10 mg PO BEDTIME [facility] Last Admin: 12/24/23 20:51 Dose: 10 mg Documented By: MAKEDA Nicotine Polacrilex (Nicotine Polacrilex 2 Mg Gum) 4 mg BUCCAL Q2H PRN PRN Reason: Nicotine Cravings Nystatin (Nystatin Powder 15 Gm Bottle) 1 appl TOPICAL BID [facility]; Protocol Last Admin: 12/25/23 10:59 Dose: 1 appl Documented By: ASH Polyethylene Glycol (Polyethylene Glycol 3350 17 Gm Powd.Pack) 17 gm PO DAILY [facility] Last Admin: 12/25/23 08:16 Dose: 17 gm Documented By: ASH Prazosin HCl (Prazosin Hcl 5 Mg Capsule) 5 mg PO BEDTIME [facility]; Protocol Last Admin: 12/24/23 20:52 Dose: 5 mg Documented By: MAKEDA Prazosin HCl (Prazosin Hcl 1 Mg Capsule) 1 mg PO BEDTIME [facility]; Protocol Last Admin: 12/24/23 20:51 Dose: 1 mg Documented By: MAKEDA Quetiapine Fumarate (Quetiapine Fumarate 300 Mg Tablet) 300 mg PO BEDTIME [facility] Last Admin: 12/24/23 20:52 Dose: 300 mg Documented By: MAKEDA Tramadol HCl (Tramadol Hcl 50 Mg Tablet) 50 mg PO BID PRN PRN Reason: Pain, Moderate(Pain Scale 4-6) Last Admin: 12/23/23 12:43 Dose: 50 mg Documented By: ASH Trolamine Salicylate (Trolamine Salicylate 10 % Cream 85 Gm Tube) 1 appl TOPICAL BID [facility]; Protocol Last Admin: 12/25/23 10:59 Dose: Not Given Documented By: ASH Non-Admin Reason: Patient Refused Labs 12/23/23 05:57 12/23/23 05:57 Labs: Laboratory Results - last 24 hr 12/24/23 12/24/23 12/25/23 16:52 20:44 07:14 POC Glucose 185 H 155 H 135 H 12/25/23 11:08 POC Glucose 179 H Assessment and Plan (1) Pulmonary edema: Status: Acute (2) Acute respiratory failure with hypoxia and hypercapnia: Status: Acute Plan This is a 53-year-old female with history of COPD/restrictive lung disease on CPAP, oxygen at baseline, type 2 diabetes, morbid obesity, MORGAN, schizoaffective hypothyroidism, PTSD who presented to the ED Acute on chronic respiratory failure with hypoxia and hypercapnia secondary to MORGAN/obesity hypoventilation syndrome and pulmonary edema On home oxygen 6L and CPAP at baseline elevated bicarb, s/p diamox Mood initially re-introduce 50% dose of depakote to prevent over-sedation as pt admitted for co2 retention - increase to 750 bid increase Seroquel to 300 (baseline 600) Continue Latuda, Minipress, Cogentin Ativan on hold chronic mild Hyponatremia 131 Hypothyroidism likely noncompliant, TSH elevated resume Synthroid HTN lasix atenolol, lisinopril on hold COPD no exacerbation albuterol as needed DM2 ss, ada diet long acting insulin - dose reduced from baseline right ankle fracture continue tramadol fu with ortho on 11/30 - plan for 4 more weeks weight bearing HLD statin dvt ppx - lovenox Attending Dr. Robertson dispo - possible return home with services vs rehab Quality Stroke Does the patient have a stroke diagnosis?: No VTE Prior VTE?: No VTE Risk Level:: Medical - moderate - high VTE Device Contraindication: N/A - Device Ordered VTE Drug Contraindication: N/A - Med Ordered
--- NOTE | 2023-12-25 12:39 | MHC.CM.PN ---
This CM met with pt to discuss discharge plans, pt states she doesn't want to go to rehab, she wants to go home. Plan will be for pt to discharge home with new VNA services, anticipating she will be ready for discharge tomorrow 12/25.
[2023-12-25 15:26] LABS: Glucose, Whole Blood 176 mg/dL (60-115)
[2023-12-25 20:22] LABS: Glucose, Whole Blood 178 mg/dL (60-115)
[2023-12-25] MEDS: Prazosin HCL 5 MG CAPSULE PO (20:31)
[2023-12-25] MEDS: Prazosin HCL 1 MG CAPSULE PO (20:31)
[2023-12-25] MEDS: QUEtiapine Fumarate 300 MG TABLET PO (20:31)
[2023-12-25] MEDS: Montelukast Sodium 10 MG TABLET PO (20:31)
[2023-12-26 03:35] VITALS: BP 113/62; PULSE 94; RESP 15; TEMP 36.2; O2SAT 95
[2023-12-26 03:39] VITALS: BP 113/62; PULSE 94; RESP 15; TEMP 36.5; O2SAT 95
[2023-12-26 05:00] VITALS: PULSE 90; RESP 18; O2SAT 98
[2023-12-26] MEDS: Levothyroxine Sodium 150 MCG TABLET PO (05:54)
[2023-12-26 07:39] LABS: Glucose, Whole Blood 156 mg/dL (60-115)
--- NOTE | 2023-12-26 07:59 | PM.DS ---
DS: Providers Provider Date of Service: 12/26/23 Date of admission: 12/22/23 01:19 Primary care physician: LOUIE Finley DS: Diagnosis Discharge Diagnosis (1) Pulmonary edema: Status: Acute (2) Acute respiratory failure with hypoxia and hypercapnia: Status: Acute DS: Summary Hospital Course Hospital Course: History and physical as per admitting provider. The patient is a 53-year-old female with a past medical history of COPD? ( on 2 L at home), MORGAN, morbid obesity, schizoaffective disorder, hyperlipidemia, and recent? right fibular fracture with cast placed on 12/01/2023 who presented to the emergency department? via EMS with altered mental status.? According to EMS, patient's significant other called because the patient was not making any sense and had ?low blood pressure at home.? When EMS arrived, patient was saturating 78% on 2 L which is the patient's home oxygen.? She was placed on non-rebreather? for transfer.?On arrival to the emergency department? patient is somnolent, ? arousable to painful stimuli,? ED staff attempted to wean down non-rebreather per patient is satting in the 70s,? required? BiPAP support.? Blood pressure 87/57? on arrival.?Laboratory data significant for venous blood gas? 7.45/79/77/57,? serum sodium 129, chloride 77, bicarb 42, TSH 30,? free T4<.42 Imaging:?Chest x-ray concerning for pulmonary edema ED course: Patient received 2 L bolus, ceftriaxone and? azithromycin 53-year-old woman treated for acute on chronic respiratory failure with hypoxia and hypercapnia secondary to obesity hypoventilation syndrome and mild pulmonary edema. She was initially admitted to the ICU for BiPAP for oxygen saturation of 78% she was weaned off BiPAP and downgraded later in the day of admission to medical tele floor. She is on 6 L of oxygen at home and CPAP at baseline. She was noted to have an elevated bicarb and has been started Diamox which is completed. She has chronic mild hyponatremia. Initially she had some altered mental status/encephalopathy and her psychiatric medications were put on hold to avoid sedation. Her psychiatric medications have now been restarted and mildly decreased in dose to avoid over-sedation. Patient requested a hospital bed, she will be sent home with a prescription for a bariatric bed, she is aware that she has to take it to a medical supply store. Plan is to discharge patient home and she is in agreement with this. Time Attestation Discharge Coordination Time (in mins): 39 Quality: Safe Use of Opioids Does Pt have an Active Cancer Diagnosis on the Problem List?: No Quality: Stroke Does the patient have a stroke diagnosis?: No Physical Exam Vital Signs: Vital Signs: Last Vital Signs Temp 97.7 F 12/26/23 03:39 Pulse 94 12/26/23 03:39 Resp 18 12/26/23 05:00 BP 113/62 12/26/23 03:39 Pulse Ox 95 12/26/23 03:39 O2 Del Method BiPAP 12/26/23 03:39 O2 Flow Rate 6 12/25/23 19:34 FiO2 50 12/23/23 08:00 BMI result Body Mass Index 78.3 Appearing in no acute distress head is normocephalic atraumatic eyes pupils are PERRLA sclera is anicteric mouth throat mucous membranes are intact and moist neck is supple no lymphadenopathy, no JVD noted lung sounds are clear to auscultation heart regular rate rhythm, clear S1, S2 positive bowel sounds, abdomen is soft, nontender neuro patient is alert x3, no focal deficits DS: Data Data Completed and Pending Completed studies during hospitalization [Text1]: Procedures Assistance with Respiratory Ventilation, Less than 24 Consecutive Hours, Continuous Positive Airway Pressure (11/01/23) Excision of Left Lobe Liver, Percutaneous Approach, Diagnostic (09/08/22) Labs on day of discharge: Laboratory Results - last 24 hr 12/25/23 12/25/23 12/25/23 11:08 15:23 20:15 POC Glucose 179 H 176 H 178 H 12/26/23 07:27 POC Glucose 156 H Preliminary micro results at discharge 12/21/23 20:57 Blood Culture - Preliminary Blood - Venous No growth after 48 hours. 12/21/23 20:57 Blood Culture - Preliminary Blood - Venous No growth after 48 hours. Discharge Plan Discharge Anticipated Discharge Date/Time: 12/26/23 07:54 Patient Disposition: Home Health Service Discharge Diagnosis: Acute on chronic respiratory failure with hypoxia and hypercapnia Obesity hypoventilation syndrome Referrals: Toyin Pollard FNP [Primary Care Provider] - 1 Week Discharge Medications: New quetiapine 300 mg Tablet 300 mg PO BEDTIME Qty: 30 0RF divalproex 250 mg Tablet Extended Release 24 Hr 750 mg PO BEDTIME Qty: 90 0RF (DME) hospital bed Kit See Rx Instructions .Route Qty: 1 0RF Rx Instructions: Bariatric bed Continued (DME) Ankle Brace Misc See Rx Instructions .ROUTE .MEDSUPPLY Qty: 1 0RF Rx Instructions: AIRSELECT, STANDARD, MEDIUM (DME) pen needle, diabetic [BD Ultra-Fine Mary Pen Needle] 32 gauge x 5/32 needle See Rx Instructions .ROUTE .MEDSUPPLY Qty: 125 6RF Rx Instructions: As directed four times a day (DME) FreeStyle Todd 3 Sensor Device See Rx Instructions .Route Qty: 2 4RF Rx Instructions: As directed change every 14 days levothyroxine [Tirosint] 150 mcg capsule 150 mcg PO DAILY Qty: 30 4RF (DME) FreeStyle Todd 2 Sensor Kit See Rx Instructions .ROUTE .COMPLEX Qty: 2 5RF Dose Instruction: USE DIRECTED CHANGE EVERY 14 DAYS Rx Instructions: USE DIRECTED CHANGE EVERY 14 DAYS multivitamin Tablet 1 tab PO DAILY@1200 amitriptyline 10 mg Tablet 10 mg PO BEDTIME lisinopril 10 mg Tablet 10 mg PO BEDTIME benztropine 1 mg Tablet 1 mg PO BID@1200,2100 montelukast 10 mg Tablet 10 mg PO BEDTIME furosemide 40 mg tablet 1 tab PO DAILY prazosin 5 mg capsule 1 cap PO BEDTIME folic acid 1 mg tablet 1 tab PO DAILY atenolol 50 mg tablet 50 mg PO DAILY@1200 melatonin 5 mg tablet 10 mg PO BEDTIME PRN (Reason: insomnia) lurasidone [Latuda] 60 mg tablet 60 mg PO DAILY@0800 Rx Instructions: WITH 350 CALORIE MEAL docusate sodium 100 mg Capsule 100 mg PO DAILY PRN (Reason: Constipation) alendronate 70 mg tablet 1 tab PO MO@0600 hydroxyzine HCl 50 mg tablet 1 - 2 tab PO TID PRN (Reason: Anxiety, Sleep, Agitation) fluticasone propionate 50 mcg/actuation spray,suspension 1 spray intranasal DAILY PRN (Reason: ALLERGIES) diclofenac sodium 1 % gel 2 g topical BID Protocol: Apply to: Apply to: KNEE, ANKLE, BACK lidocaine 5 % Adhesive Patch,Medicated 1 patch TOPICAL DAILY Protocol: Apply to: Apply to: KNEES AND BACK Rx Instructions: leave on most painful area for up to 12 hrs acetaminophen 500 mg Tablet 500 mg PO Q6H PRN (Reason: Pain) quetiapine 100 mg Tablet 100 mg PO DAILY@1200 PRN (Reason: Anxiety) nicotine (polacrilex) 4 mg gum 4 mg PO Q2H PRN (Reason: Nicotine Cravings) prazosin 1 mg capsule 1 mg PO BEDTIME Rx Instructions: tdd 6mg divalproex 250 mg tablet extended release 24 hr 750 mg PO DAILY@1200 cetirizine 10 mg tablet 10 mg PO DAILY PRN (Reason: allergies) atorvastatin 40 mg tablet 40 mg PO DAILY Mounjaro 7.5 mg/0.5 mL pen injector 7.5 mg subcut MO Nurtec ODT 75 mg tablet,disintegrating 75 mg PO NEEDED Rx Instructions: no more than 1 tablet per 24 hours nystatin 100,000 unit/gram powder 1 appl topical BID ammonium lactate 12 % lotion 1 appl topical DAILY PRN (Reason: Dry Skin) Rx Instructions: 1 APPLICATION = 2 GRAMS lorazepam 1 mg tablet 1 mg PO DAILY PRN (Reason: panic attack) albuterol sulfate [Ventolin HFA] 90 mcg/actuation HFA aerosol inhaler 2 puff INHALATION Q4H PRN (Reason: Shortness Of Breath Or Wheezing) insulin glargine U-300 conc [Toujeo Max U-300 SoloStar] 300 unit/mL (3 mL) insulin pen 70 unit subcut DAILY naproxen 500 mg tablet 500 mg PO BID topiramate 50 mg tablet 50 mg PO DAILY tramadol 50 mg tablet 50 mg PO BID PRN (Reason: Pain) Qty: 60 0RF (DME) nebulizers Misc See Rx Instructions .Route Rx Instructions: As directed (DME) Oxygen Home Use Kit See Rx Instructions .Route Rx Instructions: As directed cholecalciferol (vitamin D3) 50 mcg (2,000 unit) tablet 50 mcg PO DAILY Breztri Aerosphere 160-9-4.8 mcg/actuation HFA aerosol inhaler 2 inh inhalation BID 30 Days Qty: 10.7 11RF econazole 1 % cream 1 appl topical BID insulin lispro [Humalog KwikPen Insulin] 100 unit/mL insulin pen 30 unit subcut TIDWMEAL 30 Days Qty: 27 11RF (DME) FreeStyle Precision Ronny Strips Strip See Rx Instructions .ROUTE .COMPLEX Qty: 100 5RF Dose Instruction: TEST BLOOD SUGAR 4 TIMES A DAY DIRECTED Rx Instructions: TEST BLOOD SUGAR 4 TIMES A DAY DIRECTED Discontinued quetiapine 400 mg tablet 600 mg PO BEDTIME Rx Instructions: 1 400MG AND 2 100 MG divalproex 500 mg tablet extended release 24 hr 1,000 mg PO BEDTIME Discharge Orders: Discharge Order (Routine); Ordered 12/26/23 Ordered By: Savannah Morrow Diet: Advance to usual diet Activity on Discharge: As tolerated Stand Alone Forms: Patient Portal Discharge page Print Language: Tristanian Care Plan Goals: Some of her psychiatric medications were mildly decreased to avoid sedation Health Concerns: Acute on chronic respiratory failure with hypoxia and hypercapnia Obesity hypoventilation syndrome Plan of Treatment: Follow-up with primary care provider as needed Take all medications as prescribed Assessment: See discharge summary
[2023-12-26 08:00] VITALS: BP 103/55; PULSE 94; RESP 20; TEMP 36.4; O2SAT 98
[2023-12-26] MEDS: Insulin Glargine,Hum.rec.anlog 100 UNIT/ML 10 ML VIAL 50 UNIT SUBCUT (08:22)
[2023-12-26 08:23] VITALS: BP 113/62
[2023-12-26] MEDS: Insulin Lispro 100 UNIT/ML 3 ML VIAL SUBCUT ×2 (08:23→12:13)
[2023-12-26] MEDS: Lurasidone HCl 20 MG TABLET 60 MG PO (08:23)
[2023-12-26] MEDS: Folic Acid 1 MG TABLET PO (08:23)
[2023-12-26] MEDS: Furosemide 40 MG TABLET PO (08:23)
[2023-12-26] MEDS: Atorvastatin Calcium 40 MG TABLET PO (08:23)
[2023-12-26] MEDS: polyethylene glycoL 3350 17 GM POWD.PACK PO (08:24)
[2023-12-26] MEDS: Lidocaine 4 % Patch ADH..PATCH 1 PATCH TRANSDERMA (08:24)
[2023-12-26] MEDS: Nystatin Powder 15 GM BOTTLE 1 APPL TOPICAL (08:29)
[2023-12-26 09:18] LABS: Blood Urea Nitrogen 6 mg/dL (9-16); Calcium 9.7 mg/dL (8.4-10.2); Creatinine Clr Calc Pharmacy 166.7; Estimated Glomerular Filt Rate > 60; Glucose Random 138 mg/dL (60-115)
[2023-12-26 09:28] LABS: Anion Gap 12 (12-20)
[2023-12-26 09:38] LABS: Carbon Dioxide 40 mmol/L (22-29); Chloride 83 mmol/L (96-108); Potassium 3.2 mmol/L (3.3-5.1); Sodium 132 mmol/L (135-145)
[2023-12-26] MEDS: Enoxaparin Sodium 40 MG/0.4 ML SYRINGE SUBCUT (10:10)
[2023-12-26] MEDS: Albuterol Sulfate 90 MCG 8 GM INHALER 2 PUFF INHALE (10:11)
--- NOTE | 2023-12-26 11:32 | MHC.CM.PN ---
Pt has been medically cleared for DC, she will go home via BLS this afternoon and have [facility] services from [facility].
[2023-12-26 11:59] LABS: Glucose, Whole Blood 144 mg/dL (60-115)
[2023-12-26 12:00] VITALS: BP 109/55; PULSE 94; RESP 18; TEMP 36; O2SAT 94
[2023-12-26] MEDS: Benztropine Mesylate 1 MG TABLET PO (12:14)
[2023-12-26] MEDS: Divalproex Sodium ER 250 MG TAB.ER.24H 750 MG PO (12:14)
--- NOTE | 2023-12-26 13:34 | P.F2F_ITS ---
Service Date Service Date: 12/26/23 Encounter Date of encounter: 12/26/23 Reasons for Services Signs and symptoms assessed: Acute on Chronic hypoxic and hypercarbic respiratory failure MORGAN Obesity hypoventilation syndrome Reason for half-way: CV/CP assess and/or care Homebound: Leaving the home is medically contraindicated at this time without the asist of a device and/or another person due th the listed conditions above and below. Reason homebound: bedbound/chairbound Certification: Based on the above findings, I certify that this patient is confined to the home and needs intermittent half-way care, physical therapy and/or speech therapy, or continues to need occupational therapy. The patient is under my care, and I have initiated the establishment of the plan of care. The patient will be followed by a physician who will periodically review the plan of care. Time Spent With Patient Time: Total time managing care of this patient today ____ minutes.
== END 2023-12-26 16:30 | disposition home health service (06) | DRG 143 ==
LOC: HO.ED 20:53 → HO.EDOVER 12-22 01:40 → HO.ICU 12-22 02:01 → HO.IMC 12-22 18:09
PROVIDERS: Internal Medicine Pulmonary Disease; Physician Assistant Medical; Admitting Provider Registered Nurse Community Health; Emergency Provider Emergency Medicine; PCP Registered Nurse; Visit Provider Nurse Practitioner Acute Care
DX: J81.1 Chronic pulmonary edema (principal); J96.21 Acute and chronic respiratory failure with hypoxia; G93.40 Encephalopathy, unspecified; Z99.81 Dependence on supplemental oxygen; F25.9 Schizoaffective disorder, unspecified; E03.9 Hypothyroidism, unspecified; E87.1 Hypo-osmolality and hyponatremia; J44.9 Chronic obstructive pulmonary disease, unspecified; E11.9 Type 2 diabetes mellitus without complications; E66.2 Morbid (severe) obesity with alveolar hypoventilation; Z68.45 Body mass index [BMI] 70 or greater, adult; E78.5 Hyperlipidemia, unspecified; J96.22 Acute and chronic respiratory failure with hypercapnia; Z20.822 Contact with and (suspected) exposure to COVID-19; Z79.4 Long term (current) use of insulin; Z79.890 Hormone replacement therapy; Z79.899 Other long term (current) drug therapy
CPT/HCPCS: 0241U; 36415; 36600; 71045; 80048; 80053; 80076; 80307; 81003; 82803; 82947; 83605; 83735; 83880; 84100; 84436; 84439; 84443; 84484; 85007; 85025; 85027; 85610; 87040; 93005; 93306; 94660; 97162; 99285; C1758; J0456; J0651; J0696; J1120; J1650; J1720; Q9957

== ENCOUNTER 2023-12-22 01:19 | Outpatient (BNV) | payer MEDICAID, SELFPAY | END 2023-12-22 07:00 | PROVIDERS: Admitting Provider Registered Nurse Community Health; Emergency Provider Emergency Medicine; PCP Registered Nurse; Visit Provider Internal Medicine Cardiovascular Disease | DX: J81.0 Acute pulmonary edema (principal); I77.810 Thoracic aortic ectasia | CPT/HCPCS: 93306 ==

== ENCOUNTER → 2023-12-22 01:19 | Outpatient (BNV) | payer MEDICAID, SELFPAY | PROVIDERS: Admitting Provider Registered Nurse Community Health; Emergency Provider Emergency Medicine; PCP Registered Nurse; Visit Provider Physician Assistant Medical | DX: J96.01 Acute respiratory failure with hypoxia (principal); J96.02 Acute respiratory failure with hypercapnia; J81.1 Chronic pulmonary edema | CPT/HCPCS: 99232; 99239; 99499; G0180 ==

== ENCOUNTER → 2023-12-22 01:19 | Outpatient (BNV) | payer MEDICAID, SELFPAY | PROVIDERS: Admitting Provider Registered Nurse Community Health; Emergency Provider Emergency Medicine; PCP Registered Nurse; Visit Provider Registered Nurse Community Health | DX: J96.01 Acute respiratory failure with hypoxia (principal); J96.02 Acute respiratory failure with hypercapnia; J81.1 Chronic pulmonary edema; S82.401A Unspecified fracture of shaft of right fibula, initial encounter for closed fracture | CPT/HCPCS: 99291 ==

== ENCOUNTER 2023-12-26 14:08 | Outpatient (REF) | payer MEDICAID, SELFPAY | END 2023-12-26 14:09 | disposition home or self-care (01) | LOC: HO.HOSX 14:08 | PROVIDERS: Visit Provider Physician Assistant | DX: Z13.89 Encounter for screening for other disorder (principal) ==

== ENCOUNTER 2023-12-29 12:24 | Outpatient (REF) | payer MEDICAID, SELFPAY | END 2023-12-29 12:25 | disposition home or self-care (01) | LOC: HO.HOSX 12:24 | PROVIDERS: Visit Provider Physician Assistant | DX: Z13.89 Encounter for screening for other disorder (principal) ==

== ENCOUNTER 2024-01-10 14:30 | Outpatient (AMB) | payer MEDICAID, SELFPAY ==
--- NOTE | 2024-01-10 08:34 | A.OFFVIS_ITS ---
Intake Visit Reasons: T2DM/TH ok per Donna/CONFIRMED Allergies metformin Allergy (Intermediate, Verified 12/21/23 20:12) Diarrhea tetracycline Allergy (Intermediate, Verified 12/21/23 20:12) hives Latex, Natural Rubber Allergy (Verified 12/21/23 20:12) Rash haloperidol [From HALDOL] Adverse Reaction (Intermediate, Verified 12/21/23 20:12) Irritable HPI Comments Details: 53 YO F with PMHx who has agreed to this telehealth visit which was set up at her request. Both patient and provider are in the [facility] and patient is in agreement to have the telehealth appt and is in a safe and secure environment. Today's visit is for F/U for T2DM, NTMNG and hypothyroidism. The patient was last seen by myself 6 weeks ago and which time no change in insulin dosing was made as her freestyle numbers were in good range. Blood work was ordered which was done before she restarted tirosingt. She was hospitalized several weeks ago with acute on chronic resp failure. 1) T2DM: Initially diagnosed with T2DM in 2020. Was initially started on treatment with Metformin. She was unable to tolerate this due to GI distress. Glimepiride: ineffective Current regimen TOUJEO 300UNIT/ML 70 units qHS Humalog 14 units TID before meals AC Mounjaro 7.5mg weekly Per patient she is having some readings in the morning 70-80. Her will stop by the clinic tomorrow with her freestyle meter for review I Treats according to the rule of 15's. Family history of T2DM in her Sister. Denies retinopathy: last eye exam 1 1/2 yrs . Needs to make appt Denies neuropathy, last foot exam 03/[address] Brennan's appt. 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 Denies nephropathy, on Lisinopril 10 mg PO daily. No recent UAC on file. She was seen by Nephrology 09/09 Dr. Davis for resolved hyponatremia due to decreased free water clearance. He recommended avoiding thiazide diuretics and free water restriction. Has HLD, on Atorvastatin 20 mg PO daily. Last LDL 77 as measured on 06/2023 Has CAD. She was evaluated by vascular 09/09. She does have an aortic aneurysm and should she need surgical treatment per vascular at [facility] this would need to be done at a tertiary care facility as her BMI exceeds the equipment at [facility] She has fatty liver and one gallstone 1.8cm. She has a AAA; last imagin.7 if 5.8 She has osteoporosis on Aldendronate managed by: not managed by Endo. Diet: High in simple carbohydrates. Weight: Stable Has had diabetes education. Information from last appt with Dr. Brennan was carried forward for continuity of care. Most recent TSH 29.9. She reports she just started tirosint yesterday. 2) Thyroid Nodule:After her initial visit in Endocrine visit she was asked her to have a full set of TFTs completed, as well as a CT of the neck and a barium swallow. She initially failed to do this.? She did have her CT which revealed an enlarged R lobe of the thyroid with mass effect on the esophagus as well as the hypopharynx.? She was referred to Dr. Read for a surgical thyroidectomy.? He reviewed her US and felt that the gland was not significantly enlarged enough to be causing compressive symptoms and recommended against a surgical thyroidectomy. In terms of her hypothyroidism, she was first diagnosed with Hypothyroidism many years ago. Her dose of Levothyroxine had been steadily increased to 250 mcg PO daily.? She had reported she was spacing this appropriately from her iron and reports good compliance. She completed a levothyroxine absorption test and this was WNL. After that she did admit to poor compliance. She was switched to Tirosint. ? 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 CT Neck: 11/18/2019FINDINGS: ? ? This examination is limited without contrast. The thyroid gland is ? ? enlarged and soft tissue contiguous with the upper pole of the right ? ? thyroid lobe extends lateral and posterior to the hypopharynx lower ? ? cervical esophagus, inseparable from the structures for example on ? ? image 67 of series 2. This could reflect an exophytic thyroid tissue ? ? alternative pathology to be better assessed with postcontrast CT or a ? ? neck MRI with and without IV contrast. Suspected mass effect on the ? ? hypopharynx and cervical esophagus by this soft tissue. The trachea ? ? remains midline and patent. Artifact precludes assessment of the ? ? inferior extent of the thyroid lobe including the substernal region ? ? which is not included on this exam. ? ? Possible retropharyngeal course of the internal carotid arteries ? ? bilaterally that should be further assessed with postcontrast CT ? ? imaging or a neck MRA prior to any cervical surgical intervention. ? ? Superficial mucosal spaces not diagnostically assessed without ? ? contrast. ? ? Reversal of the cervical lordosis and multilevel cervical spondylosis. ? ? Metallic nails project through the skin of the lower lips which can be ? ? clinically correlated for piercings in these areas. If considering a ? ? MRI, MR compatibility would need to be determined. [facility] Medical History (Updated 01/03/24 @ 00:02 by Mahesh Nieves) Right fibular fracture Obesity Osteoporosis Hypercapnia COPD (chronic obstructive pulmonary disease) Hypothyroidism Multinodular thyroid HLD (hyperlipidemia) T2DM (type 2 diabetes mellitus) Pneumonitis Chronic respiratory failure Pulmonary nodules Pneumonia Acute and chronic respiratory failure with hypoxia MORGAN on CPAP Morbid (severe) obesity due to excess calories Chronic restrictive lung disease Obesity due to excess calories DM2 (diabetes mellitus, type 2) HLD (hyperlipidemia) Diabetes Goiter Vitamin D deficiency Hypothyroidism Fibula fracture Hx of fracture of patella Back pain GERD (gastroesophageal reflux disease) Hepatitis History of posttraumatic stress disorder (PTSD) Depression Myocardial infarction AAA (abdominal aortic aneurysm) without rupture Morbid obesity Hernia Umbilical hernia PTSD (post-traumatic stress disorder) ADHD Schizo affective schizophrenia Arthritis Migraine Diabetes HTN (hypertension) Gallstone Aortic aneurysm Sleep apnea Asthma Surgical History Hx of knee surgery Hx of tubal ligation History of incision and drainage Tubal ligation status Family History Father Unknown family medical history Mother Unknown family medical history Sister Ovarian cancer Son No problems noted. Son Depression Son Asthma Bipolar 1 disorder ADHD Daughter No problems noted. Daughter Unknown family medical history Daughter Unknown family medical history Daughter No problems noted. Social History Household Members: Unknown / Unable to assess Caregiver staying overnight: No Housing: Unknown / Unable to assess Are you a primary career services representative to a significant other at home: No Do you presently have visiting nurse or other home services: No 75 years or older and lives alone: No Unable to assess alcohol history related to: Unable to respond Alcohol intake: never Patient Tobacco Use Status: Tobacco use Unknown Tobacco use type: Cigarette Cigarette Packs Per Day: 6 Years Smoked: 35 e-Cigarette/Vaping Use: Currently Using Substance Use Type: Marijuana Advance Directives Date on File: 09/13/21 service: No Current occupational status: unemployed Assessment & Plan Assessment & Plan (1) Diabetes: Code(s): E11.9 - Type 2 diabetes mellitus without complications Category: Medical Plan: Patient with type 2 diabetes presents for telehealth visit which was completed as a telephone call. She reports her glucose numbers have been slightly low 70- 80 in the morning and she was advised to decrease her Toujeo to 64 units and continue all other doses the same. She will have her stop by the clinic so that I can view the freestyle reading but she was asked to schedule her next appointment as a regular follow up History of noncompliance with Tirosint and she was counseled that she must take this on a daily basis and that low thyroid could place her at risk for serious complications. She was asked to repeat her thyroid blood work in 4 weeks She was asked to follow up with her primary care provider for low potassium in the hospital and I will see her back in person in a month Orders: Orders TSH reflex Free T4 4 Weeks E11.9 - Type 2 diabetes mellitus without complications Medications: Changed From insulin lispro (Humalog KwikPen (U-100) Insulin) 30 units (0.3 mL) subcut TIDWMEAL 30 days 27 mL 11RF E11.9 - Type 2 diabetes mellitus without complications To insulin lispro (Humalog KwikPen (U-100) Insulin) 14 units (0.14 mL) subcut TIDWMEAL 30 days 15 mL 4RF E11.9 - Type 2 diabetes mellitus without complications Coding Level of Care Code Tele New Pt Level 4 (56286) Complex EM visit Add On G2211 Diagnoses Diabetes E11.9 Time Spent (min) 30 Comment encounter I am just finishing up right now I
== END 2024-01-10 15:51 | disposition home or self-care (01) ==
LOC: HO.ENCR 14:30
PROVIDERS: PCP Registered Nurse; Visit Provider Nurse Practitioner Adult Health
DX: E11.9 Type 2 diabetes mellitus without complications (principal)
CPT/HCPCS: 99214

== ENCOUNTER → 2024-01-10 14:30 | Outpatient (BNVA) | payer MEDICAID, SELFPAY | PROVIDERS: PCP Registered Nurse; Visit Provider Nurse Practitioner Adult Health | DX: E11.9 Type 2 diabetes mellitus without complications (principal) ==

== ENCOUNTER 2024-01-22 12:56 | Emergency (ER) | payer MEDICAID, SELFPAY ==
--- NOTE | ~2024-01-22 | XR_ITS ---
EXAMINATION: XR TIBIA AND FIBULA, RIGHT CLINICAL INFORMATION: Prior fibula fracture cast removed. COMPARISON: X-ray of the right ankle November 2023 and x-rays of the right tibia fibula October 2023 TECHNIQUE: AP and lateral views of the right tibia and fibula were obtained. FINDINGS: The mildly comminuted distal fibular fracture is redemonstrated with unchanged alignment. Slight osseous bridging noted along the lateral aspect of the fracture which is more evident compared to previous. Minimal ossification along the dorsal aspect of the talonavicular joint unchanged likely representing reactive with degenerative changes of the capsule unchanged versus ossicle. Calcaneal spurs unchanged. XR/XR tibia fibula RT 2V IMPRESSION: Healing distal fibular fracture unchanged in alignment compared with prior. Electronically signed by: Bello Perry MD 01/22/2024 04:20 PM SCARLETT SETH
[2024-01-22 13:13] VITALS: BP 100/0; PULSE 82; PULSE 84; RESP 18; TEMP 36.7; O2SAT 96; O2SAT 98; BMI 77.0
--- NOTE | 2024-01-22 13:39 | ED.GENADULT ---
HPI - General Adult General Chief complaint: Extremity Injury, Lower Stated complaint: RT ANKLE PAIN,KNOWN FRACTURE PER EMS Time Seen by Provider: 01/22/24 12:58 Source: patient, EMS and old records reviewed Mode of arrival: EMS Limitations: physical limitation History of Present Illness ED Provider: Megan HPI narrative: Patient is a 53-year-old female with morbid obesity with a BMI of 77, osteoporosis, COPD, hypothyroidism, HLD, T2 DM, chronic respiratory failure, ND x3, AAA, schizoaffective schizophrenia, PTSD presenting to the emergency department with complaint of right ankle pain and numbness to toes due to her cast. Patient missed her follow up appointment with orthopedics due to transportation issues. States she was unable to get onto her scooter for ADA transportation. Denies any recent falls or other trauma. MD complaint: right ankle pain Onset (ago): day(s) Related Data Home Medications ?Medication ?Instructions ?Recorded ?Confirmed amitriptyline 10 mg tablet 10 mg PO BEDTIME 01/10/20 12/22/23 benztropine 1 mg tablet 1 mg PO BID@1200,2100 01/10/20 12/22/23 lisinopril 10 mg tablet 10 mg PO BEDTIME 01/10/20 12/22/23 montelukast 10 mg tablet 10 mg PO BEDTIME 01/10/20 12/22/23 multivitamin 1 tab PO DAILY@1200 01/10/20 12/22/23 atenolol 50 mg tablet 50 mg PO DAILY@1200 04/20/21 12/22/23 docusate sodium 100 mg capsule 100 mg PO DAILY PRN Constipation 04/20/21 12/22/23 folic acid 1 mg tablet 1 tab PO DAILY 04/20/21 12/22/23 furosemide 40 mg tablet 1 tab PO DAILY 04/20/21 12/22/23 lurasidone 60 mg tablet (Latuda) 60 mg PO DAILY@0800 04/20/21 12/22/23 melatonin 5 mg tablet 10 mg PO BEDTIME PRN insomnia 04/20/21 12/22/23 prazosin 5 mg capsule 1 cap PO BEDTIME 04/20/21 12/22/23 alendronate 70 mg tablet 1 tab PO MO@0600 04/22/21 12/22/23 diclofenac sodium 1 % topical gel 2 g topical BID Pain 04/22/21 12/22/23 fluticasone propionate 50 1 spray intranasal DAILY PRN 04/22/21 12/22/23 mcg/actuation nasal ALLERGIES spray,suspension hydroxyzine HCl 50 mg tablet 1 - 2 tab PO TID PRN Anxiety, 04/22/21 12/22/23 Sleep, Agitation cholecalciferol (vitamin D3) 50 50 mcg PO DAILY 07/20/21 12/22/23 mcg (2,000 unit) tablet acetaminophen 500 mg tablet 500 mg PO Q6H PRN Pain 09/08/21 12/22/23 lidocaine 5 % topical patch 1 patch topical DAILY 09/08/21 12/22/23 Oxygen Home Use 03/25/22 09/29/22 nebulizers 03/25/22 09/29/22 cetirizine 10 mg tablet 10 mg PO DAILY PRN allergies 09/08/22 12/22/23 divalproex 250 mg tablet,extended 750 mg PO DAILY@1200 09/08/22 12/22/23 release 24 hr nicotine (polacrilex) 4 mg gum 4 mg PO Q2H PRN Nicotine Cravings 09/08/22 12/22/23 prazosin 1 mg capsule 1 mg PO BEDTIME 09/08/22 12/22/23 econazole 1 % topical cream 1 appl topical BID 03/30/23 11/01/23 albuterol sulfate 90 mcg/actuation 2 puff inhalation Q4H PRN 11/01/23 12/22/23 aerosol inhaler (Ventolin HFA) Shortness Of Breath Or Wheezing ammonium lactate 12 % lotion 1 appl topical DAILY PRN Dry Skin 11/01/23 12/22/23 atorvastatin 40 mg tablet 40 mg PO DAILY 11/01/23 12/22/23 lorazepam 1 mg tablet 1 mg PO DAILY PRN panic attack 11/01/23 12/22/23 naproxen 500 mg tablet 500 mg PO BID 11/01/23 12/22/23 nystatin 100,000 unit/gram topical 1 appl topical BID 11/01/23 12/22/23 powder rimegepant 75 mg disintegrating 75 mg PO NEEDED migraine 11/01/23 12/22/23 tablet (Nurtec ODT) topiramate 50 mg tablet 50 mg PO DAILY 11/01/23 11/01/23 quetiapine 100 mg tablet 100 mg PO DAILY@1200 PRN Anxiety 12/22/23 12/22/23 insulin glargine U-300 conc 300 64 unit subcut DAILY 01/10/24 01/10/24 unit/mL (3 mL) subcutaneous pen (Toujeo Max U-300 SoloStar) Previous Rx's ?Medication ?Instructions ?Recorded leg brace (Ankle Brace) #1 ea 01/22/20 pen needle, diabetic 32 gauge x #125 ea 04/01/22 (BD Ultra-Fine Mary Pen Needle) budesonide 160 mcg-glycopyr 9 2 inh inhalation BID 30 days #10.7 08/18/22 mcg-formot 4.8 mcg/actuation HFA grams inhaler (Breztri Aerosphere) blood-glucose sensor (FreeStyle #2 ea 04/12/23 Todd 3 Sensor device) tramadol 50 mg tablet 50 mg PO BID PRN Pain #60 tabs 11/04/23 blood sugar diagnostic (FreeStyle #100 strips 11/30/23 Precision Ronny Strips) divalproex 250 mg tablet,extended 750 mg (3 x 250 mg) PO BEDTIME #90 12/26/23 release 24 hr tabs hospital bed #1 ea 12/26/23 quetiapine 300 mg tablet 300 mg PO BEDTIME #30 tabs 12/26/23 tirzepatide 7.5 mg/0.5 mL 7.5 mg (0.5 mL) subcut QWEEK 28 12/26/23 subcutaneous pen injector days #2 mL (Mounjaro) Tirosint 150 mcg capsule 150 mcg PO DAILY #30 caps 01/04/24 (levothyroxine) flash glucose sensor (FreeStyle #2 kits 01/04/24 Todd 2 Sensor kit) insulin lispro 100 unit/mL 14 unit (0.14 mL) subcut TIDWMEAL 01/10/24 subcutaneous pen (Humalog KwikPen 30 days #15 mL (U-100) Insulin) Allergies Allergy/AdvReac Type Severity Reaction Status Date / Time metformin Allergy Intermediate Diarrhea Verified 01/22/24 13:14 tetracycline Allergy Intermediate hives Verified 01/22/24 13:14 Latex, Natural Rubber Allergy Rash Verified 01/22/24 13:14 haloperidol [From HALDOL] AdvReac Intermediate Irritable Verified 01/22/24 13:14 Review of Systems Review of Systems: as per hpi Yes all other systems are reviewed and are negative Constitutional: Constitutional: Reports as per HPI [facility] Past Medical History Medical History (Updated 01/22/24 @ 16:23 by Oralia Guzman NP) Right fibular fracture Obesity Osteoporosis Hypercapnia COPD (chronic obstructive pulmonary disease) Hypothyroidism Multinodular thyroid HLD (hyperlipidemia) T2DM (type 2 diabetes mellitus) Pneumonitis Chronic respiratory failure Pulmonary nodules Pneumonia Acute and chronic respiratory failure with hypoxia MORGAN on CPAP Morbid (severe) obesity due to excess calories Chronic restrictive lung disease Obesity due to excess calories DM2 (diabetes mellitus, type 2) HLD (hyperlipidemia) Diabetes Goiter Vitamin D deficiency Hypothyroidism Fibula fracture Hx of fracture of patella Back pain GERD (gastroesophageal reflux disease) Hepatitis History of posttraumatic stress disorder (PTSD) Depression Myocardial infarction AAA (abdominal aortic aneurysm) without rupture Morbid obesity Hernia Umbilical hernia PTSD (post-traumatic stress disorder) ADHD Schizo affective schizophrenia Arthritis Migraine Diabetes HTN (hypertension) Gallstone Aortic aneurysm Sleep apnea Asthma Surgical History Hx of knee surgery Hx of tubal ligation History of incision and drainage Tubal ligation status Family History Family History Father Unknown family medical history Mother Unknown family medical history Sister Ovarian cancer Son No problems noted. Son Depression Son Asthma Bipolar 1 disorder ADHD Daughter No problems noted. Daughter Unknown family medical history Daughter Unknown family medical history Daughter No problems noted. Social History Social History Household Members: Unknown / Unable to assess Housing: Unknown / Unable to assess Are you a primary career guidance technician to a significant other at home: No Do you presently have visiting nurse or other home services: No Unable to assess alcohol history related to: Unable to respond Alcohol intake: never Patient Tobacco Use Status: Tobacco use Unknown Tobacco use type: Cigarette Cigarette Packs Per Day: 6 Years Smoked: 35 e-Cigarette/Vaping Use: Currently Using Substance Use Type: Marijuana Advance Directives: Yes Advance Directives on File: Yes Advance Directives Date on File: 09/13/21 service: No Current occupational status: unemployed Physical Exam ED Vital Signs: Vital Signs - 24 hr 01/22/24 13:13 01/22/24 16:13 Temperature 98.1 F 98.8 F Pulse Rate 82 78 Respiratory Rate 18 20 Blood Pressure 97/56 L Pulse Oximetry 96 96 Oxygen Delivery Method Nasal Cannula Nasal Cannula Oxygen Flow Rate 6.5 BMI result Body Mass Index 77.0 Vital signs have been reviewed and appear to be correct. Blood pressure normal. Heart rate normal. Respiratory rate normal. Temperature normal. Oxygen saturation normal. Const General: cooperative and no acute distress Nutritional Appearance: obese morbidly obese Orientation/consciousness: oriented to person, oriented to place, oriented to time and patient oriented x3 Limitations: no limitations HENMT Head: Yes normocephalic and Yes atraumatic Ears: external ears normal General nose exam: Normal external nose present Face and sinus: Yes face symmetric Mouth: oropharynx normal and moist mucous membranes Throat: Yes uvula midline Eyes Pupils: Equal, round and reactive pupils present Neck Neck: Yes normal visual inspection and Yes supple Resp Effort & Inspection: normal respiratory effort and able to speak in complete sentences Auscultation: clear to auscultation bilaterally Cardio Rate: regular rate Rhythm: regular rhythm Heart sounds: S1 normal heart sound present and S2 normal heart sound present GI Palpation (GI): Soft to palpation and nontender Auscultation: normoactive bowel sounds General: Yes no CVA tenderness Back/Spine/Pelvis Back: no CVA tenderness Skin General skin exam: elasticity normal and turgor normal Neuro General: oriented to person, oriented to place, oriented to time, patient oriented x3, moves all extremities, no focal motor deficits and CN's II-XI intact bilaterally Cranial nerves: Yes Equal, round and reactive pupils present Cognition (Neuro): normal cognition Extrem General: Yes full ROM and Yes no calf tenderness Right lower extremity: ankle (cast) and foot Details: normal capillary refill, toes with normal ROM and motor-sensory exam Details: two point discrimination normal Location: in all toes, light-touch normal Location: in all toes and pin-prick normal Location: in all toes Psych Mental Status: mental status grossly normal Affect: normal affect Thought process: Normal thought process present Procedures Cast Removal Reason for procedure: missed appointment Cut saw used: Yes Cast procedure: removal Post Removal Neuro Exam: intact Post Removal Vascular Exam: intact Patient Tolerated Procedure: well and no complications Medical Decision Making Medical Decision Making MDM Narrative: Patient is a 53-year-old female with morbid obesity with a BMI of 77, osteoporosis, COPD, hypothyroidism, HLD, T2 DM, chronic respiratory failure, ND x3, AAA, schizoaffective schizophrenia, PTSD presenting to the emergency department with complaint of right ankle pain and numbness to toes due to her cast. On exam patient is awake, A+Ox3, VS WNL, afebrile, normal neurological exam without focal deficits, physical exam findings as above. Given reported symptoms and physical exam findings, initial differential includes pain related to fracture, irritation from cast. Do not suspect compartment syndrome or other vascular compromise. Review of EMR shows that patient was supposed to follow up with ortho one month from 11/30 for cast removal and repeat imaging. Case discussed with Dr. Swenson, who recommends removing the cast, repeating x-rays, and discharging patient home in walking boot. Differential Diagnosis Differential Diagnoses: The differential diagnosis associated with the presentation includes As per MDM Consult Healthcare Provider Management of the patient was discussed with: Hot Braider (Dr. Swenson) Independent Interpretation I performed an independent interpretation of an: Plain X-Ray Interpretation: Healing distal fibular fx unchanged from prior Radiology Impression Discussion of test interpretation with radiology: I have reviewed the radiologist's reading. Radiologist Impression: XR/XR tibia fibula RT 2V IMPRESSION: Healing distal fibular fracture unchanged in alignment compared with prior. External Record Review External record reviewed: Inpatient record, Office record and Outpatient record Discharge Plan Discharge Clinical Impression: Ankle pain, right Patient Disposition: Home, Self-Care Additional Instructions: You were evaluated in the emergency department today for right ankle pain. Your cast was removed at the recommendation of Orthopedics. You are being discharged home in a walking boot and should remain nonweightbearing until you follow-up with orthopedics. Please call their office to schedule follow up appointment, they will not call you. Return to the emergency department with new or concerning symptoms. Prescriptions: No Action (DME) Ankle Brace Misc See Rx Instructions .ROUTE .MEDSUPPLY Qty: 1 0RF Rx Instructions: AIRSELECT, STANDARD, MEDIUM (DME) pen needle, diabetic [BD Ultra-Fine Mary Pen Needle] 32 gauge x 5/32 needle See Rx Instructions .ROUTE .MEDSUPPLY Qty: 125 6RF Rx Instructions: As directed four times a day (DME) FreeStyle Todd 3 Sensor Device See Rx Instructions .Route Qty: 2 4RF Rx Instructions: As directed change every 14 days Mounjaro 7.5 mg/0.5 mL pen injector 7.5 mg subcut QWEEK 28 Days Qty: 2 5RF levothyroxine [Tirosint] 150 mcg capsule 150 mcg PO DAILY Qty: 30 4RF (DME) FreeStyle Tdod 2 Sensor Kit See Rx Instructions .ROUTE .COMPLEX Qty: 2 5RF Dose Instruction: USE DIRECTED CHANGE EVERY 14 DAYS Rx Instructions: USE DIRECTED CHANGE EVERY 14 DAYS multivitamin Tablet 1 tab PO DAILY@1200 amitriptyline 10 mg Tablet 10 mg PO BEDTIME lisinopril 10 mg Tablet 10 mg PO BEDTIME benztropine 1 mg Tablet 1 mg PO BID@1200,2100 montelukast 10 mg Tablet 10 mg PO BEDTIME furosemide 40 mg tablet 1 tab PO DAILY prazosin 5 mg capsule 1 cap PO BEDTIME folic acid 1 mg tablet 1 tab PO DAILY atenolol 50 mg tablet 50 mg PO DAILY@1200 melatonin 5 mg tablet 10 mg PO BEDTIME PRN (Reason: insomnia) lurasidone [Latuda] 60 mg tablet 60 mg PO DAILY@0800 Rx Instructions: WITH 350 CALORIE MEAL docusate sodium 100 mg Capsule 100 mg PO DAILY PRN (Reason: Constipation) alendronate 70 mg tablet 1 tab PO MO@0600 hydroxyzine HCl 50 mg tablet 1 - 2 tab PO TID PRN (Reason: Anxiety, Sleep, Agitation) fluticasone propionate 50 mcg/actuation spray,suspension 1 spray intranasal DAILY PRN (Reason: ALLERGIES) diclofenac sodium 1 % gel 2 g topical BID Protocol: Apply to: Apply to: KNEE, ANKLE, BACK lidocaine 5 % Adhesive Patch,Medicated 1 patch TOPICAL DAILY Protocol: Apply to: Apply to: KNEES AND BACK Rx Instructions: leave on most painful area for up to 12 hrs acetaminophen 500 mg Tablet 500 mg PO Q6H PRN (Reason: Pain) quetiapine 100 mg Tablet 100 mg PO DAILY@1200 PRN (Reason: Anxiety) quetiapine 300 mg Tablet 300 mg PO BEDTIME Qty: 30 0RF divalproex 250 mg Tablet Extended Release 24 Hr 750 mg PO BEDTIME Qty: 90 0RF (DME) hospital bed Kit See Rx Instructions .Route Qty: 1 0RF Rx Instructions: Bariatric bed nicotine (polacrilex) 4 mg gum 4 mg PO Q2H PRN (Reason: Nicotine Cravings) prazosin 1 mg capsule 1 mg PO BEDTIME Rx Instructions: tdd 6mg divalproex 250 mg tablet extended release 24 hr 750 mg PO DAILY@1200 cetirizine 10 mg tablet 10 mg PO DAILY PRN (Reason: allergies) atorvastatin 40 mg tablet 40 mg PO DAILY Nurtec ODT 75 mg tablet,disintegrating 75 mg PO NEEDED Rx Instructions: no more than 1 tablet per 24 hours nystatin 100,000 unit/gram powder 1 appl topical BID ammonium lactate 12 % lotion 1 appl topical DAILY PRN (Reason: Dry Skin) Rx Instructions: 1 APPLICATION = 2 GRAMS lorazepam 1 mg tablet 1 mg PO DAILY PRN (Reason: panic attack) albuterol sulfate [Ventolin HFA] 90 mcg/actuation HFA aerosol inhaler 2 puff INHALATION Q4H PRN (Reason: Shortness Of Breath Or Wheezing) naproxen 500 mg tablet 500 mg PO BID topiramate 50 mg tablet 50 mg PO DAILY tramadol 50 mg tablet 50 mg PO BID PRN (Reason: Pain) Qty: 60 0RF (DME) nebulizers [facility] [place] See Rx Instructions .Route Rx Instructions: As directed (DME) Oxygen Home Use Kit See Rx Instructions .Route Rx Instructions: As directed cholecalciferol (vitamin D3) 50 mcg (2,000 unit) tablet 50 mcg PO DAILY insulin lispro [Humalog KwikPen Insulin] 100 unit/mL insulin pen 14 unit subcut TIDWMEAL 30 Days Qty: 15 4RF insulin glargine U-300 conc [Toujeo Max U-300 SoloStar] 300 unit/mL (3 mL) insulin pen 64 unit subcut DAILY Breztri Aerosphere 160-9-4.8 mcg/actuation HFA aerosol inhaler 2 inh inhalation BID 30 Days Qty: 10.7 11RF econazole 1 % cream 1 appl topical BID (DME) FreeStyle Precision Ronny Strips Strip See Rx Instructions .ROUTE .COMPLEX Qty: 100 5RF Dose Instruction: TEST BLOOD SUGAR 4 TIMES A DAY DIRECTED Rx Instructions: TEST BLOOD SUGAR 4 TIMES A DAY DIRECTED Referrals: [facility] [Provider Group] - 1 week (Cast removed in ED, placed in walking boot) Print Language: Luxembourger
--- NOTE | 2024-01-22 15:26 | PC.NURSE ---
Cast removed at bedside with provider, awaiting Xray at this time
[2024-01-22 16:13] VITALS: BP 97/56; PULSE 78; RESP 20; TEMP 37.1; O2SAT 96
[2024-01-22 19:23] VITALS: BP 100/71; PULSE 81; RESP 24; TEMP 36.8; O2SAT 97
[2024-01-22 20:38] VITALS: BP 112/68; PULSE 89; RESP 20; TEMP 36.8; O2SAT 98
== END 2024-01-22 20:39 | disposition home or self-care (01) ==
PROVIDERS: Emergency Provider Student in an Organized Health Care Education/Training Program
DX: M25.571 Pain in right ankle and joints of right foot (principal); E11.9 Type 2 diabetes mellitus without complications; I10 Essential (primary) hypertension; E78.5 Hyperlipidemia, unspecified; F17.210 Nicotine dependence, cigarettes, uncomplicated; F12.90 Cannabis use, unspecified, uncomplicated; E66.9 Obesity, unspecified; Z68.45 Body mass index [BMI] 70 or greater, adult; Z79.02 Long term (current) use of antithrombotics/antiplatelets; Z79.4 Long term (current) use of insulin; Z79.899 Other long term (current) drug therapy; J44.9 Chronic obstructive pulmonary disease, unspecified
CPT/HCPCS: 73590; 99283; 99284

== ENCOUNTER 2024-02-13 08:08 | Outpatient (REF) | payer MEDICAID, SELFPAY | END 2024-02-13 08:09 | disposition home or self-care (01) | LOC: HO.HOSX 08:08 | PROVIDERS: Visit Provider Physician Assistant | DX: Z13.89 Encounter for screening for other disorder (principal) ==

== ENCOUNTER 2024-04-04 16:17 | Emergency (ER) | payer MEDICAID, SELFPAY ==
--- NOTE | ~2024-04-04 | XR_ITS ---
CLINICAL HISTORY: pain 3 view right ankle Comparison: None Findings: Subacute fracture with remodeling at distal fibula diaphysis. Age indeterminate fracture fragments medial malleolus are also likely subacute to chronic with remodeling. Additional small fragments about dorsal talus. Moderate osteoarthritis is favored to represent posttraumatic osteoarthritis of the ankle mortise without dislocation. Large effusion is present. Diffuse soft tissue swelling noted. Please refer to separate report for included foot. IMPRESSION: 1. Likely subacute to chronic fractures given callus formation including distal fibula, distal tibia, and dorsal distal tibia. 2. 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 3. Effusion present with soft tissue swelling. This document has been electronically signed by: Keny Gonzalez MD on 04/04/2024 19:05:17
--- NOTE | ~2024-04-04 | XR_ITS ---
CLINICAL HISTORY: pain 3 view right foot Comparison: Right foot x-rays from 01/11/2020 Findings: New dorsal fragment of the distal calcaneus. Please refer to separate report for additional ankle details with soft tissue swelling and effusion and new deformity of the imaged ankle. Osteoarthritis of the imaged foot is moderate and markedly greater than expected for age. Low bone mineralization suggested. Sclerosis and remodeling about imaged Lisfranc joint without definite acute malalignment. Soft tissue swelling is nonspecific. No radiopaque retained foreign body in the [id number]. IMPRESSION: 1. Fragments about imaged ankle are new when compared to 2020. Please refer to separate report for ankle details and distal fibula fracture. 2. 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 Differential considerations include posttraumatic osteoarthritis. With remodeling about imaged Lisfranc joint by radiographs. Consider CT or MRI, as clinically indicated. 3. Nonspecific soft tissue swelling. This document has been electronically signed by: Keny Gonzalez MD on 04/04/2024 19:08:43
[2024-04-04 16:41] VITALS: BP 109/69; BP 118/68; PULSE 62; PULSE 78; RESP 18; TEMP 36.6; O2SAT 95; O2SAT 99
[2024-04-04 16:50] VITALS: BP 109/69; PULSE 78; RESP 18; TEMP 36.6; O2SAT 94; BMI 72.6
--- NOTE | 2024-04-04 19:34 | ED_ITS ---
HPI - Extremity Injury (Lower) General Chief Complaint: Extremity Injury, Lower Stated Complaint: r ankle pain Time Seen by Provider: 04/04/24 18:02 Source: patient Limitations: no limitations History of Present Illness ED Provider: Layne Chambers PA-C HPI Narrative: 54-year-old female with a history of morbid obesity, osteoporosis, osteoarthritis, hyperlipidemia, hypertension, diabetes, coronary artery disease, acute on chronic respiratory failure on supplemental oxygen at home, tobacco abuse, schizo effective, PTSD, recent right ankle fracture, March 08, 2024 in a walking boot, presents with right ankle pain. Patient states she felt a ?pop?, in the ankle while moving in bed. Related Data Home Medications ?Medication ?Instructions ?Recorded ?Confirmed amitriptyline 10 mg tablet 10 mg PO BEDTIME 01/10/20 12/22/23 benztropine 1 mg tablet 1 mg PO BID@1200,2100 01/10/20 12/22/23 lisinopril 10 mg tablet 10 mg PO BEDTIME 01/10/20 12/22/23 montelukast 10 mg tablet 10 mg PO BEDTIME 01/10/20 12/22/23 multivitamin 1 tab PO DAILY@1200 01/10/20 12/22/23 atenolol 50 mg tablet 50 mg PO DAILY@1200 04/20/21 12/22/23 docusate sodium 100 mg capsule 100 mg PO DAILY PRN Constipation 04/20/21 12/22/23 folic acid 1 mg tablet 1 tab PO DAILY 04/20/21 12/22/23 furosemide 40 mg tablet 1 tab PO DAILY 04/20/21 12/22/23 lurasidone 60 mg tablet (Latuda) 60 mg PO DAILY@0800 04/20/21 12/22/23 melatonin 5 mg tablet 10 mg PO BEDTIME PRN insomnia 04/20/21 12/22/23 prazosin 5 mg capsule 1 cap PO BEDTIME 04/20/21 12/22/23 alendronate 70 mg tablet 1 tab PO MO@0600 04/22/21 12/22/23 diclofenac sodium 1 % topical gel 2 g topical BID Pain 04/22/21 12/22/23 fluticasone propionate 50 1 spray intranasal DAILY PRN 04/22/21 12/22/23 mcg/actuation nasal ALLERGIES spray,suspension hydroxyzine HCl 50 mg tablet 1 - 2 tab PO TID PRN Anxiety, 04/22/21 12/22/23 Sleep, Agitation cholecalciferol (vitamin D3) 50 50 mcg PO DAILY 07/20/21 12/22/23 mcg (2,000 unit) tablet acetaminophen 500 mg tablet 500 mg PO Q6H PRN Pain 09/08/21 12/22/23 lidocaine 5 % topical patch 1 patch topical DAILY 09/08/21 12/22/23 Oxygen Home Use 03/25/22 09/29/22 nebulizers 03/25/22 09/29/22 cetirizine 10 mg tablet 10 mg PO DAILY PRN allergies 09/08/22 12/22/23 divalproex 250 mg tablet,extended 750 mg PO DAILY@1200 09/08/22 12/22/23 release 24 hr nicotine (polacrilex) 4 mg gum 4 mg PO Q2H PRN Nicotine Cravings 09/08/22 12/22/23 prazosin 1 mg capsule 1 mg PO BEDTIME 09/08/22 12/22/23 econazole 1 % topical cream 1 appl topical BID 03/30/23 11/01/23 ammonium lactate 12 % lotion 1 appl topical DAILY PRN Dry Skin 11/01/23 12/22/23 atorvastatin 40 mg tablet 40 mg PO DAILY 11/01/23 12/22/23 lorazepam 1 mg tablet 1 mg PO DAILY PRN panic attack 11/01/23 12/22/23 naproxen 500 mg tablet 500 mg PO BID 11/01/23 12/22/23 nystatin 100,000 unit/gram topical 1 appl topical BID 11/01/23 12/22/23 powder rimegepant 75 mg disintegrating 75 mg PO NEEDED migraine 11/01/23 12/22/23 tablet ([facility] ODT) topiramate 50 mg tablet 50 mg PO DAILY 11/01/23 11/01/23 quetiapine 100 mg tablet 100 mg PO DAILY@1200 PRN Anxiety 12/22/23 12/22/23 insulin glargine U-300 conc 300 64 unit subcut DAILY 01/10/24 01/10/24 unit/mL (3 mL) subcutaneous pen (Toujeo Max U-300 SoloStar) Previous Rx's ?Medication ?Instructions ?Recorded leg brace (Ankle Brace) #1 ea 01/22/20 pen needle, diabetic 32 gauge x #125 ea 04/01/22/32 (BD Ultra-Fine Mary Pen Needle) blood-glucose sensor (FreeStyle #2 ea 04/12/23 Todd 3 Sensor device) tramadol 50 mg tablet 50 mg PO BID PRN Pain #60 tabs 11/04/23 blood sugar diagnostic (FreeStyle #100 strips 11/30/23 Precision Ronny Strips) divalproex 250 mg tablet,extended 750 mg (3 x 250 mg) PO BEDTIME #90 12/26/23 release 24 hr tabs hospital bed #1 ea 12/26/23 quetiapine 300 mg tablet 300 mg PO BEDTIME #30 tabs 12/26/23 tirzepatide 7.5 mg/0.5 mL 7.5 mg (0.5 mL) subcut QWEEK 28 12/26/23 subcutaneous pen injector days #2 mL (Mounjaro) flash glucose sensor (FreeStyle #2 kits 01/04/24 Todd 2 Sensor kit) insulin lispro 100 unit/mL 14 unit (0.14 mL) subcut TIDWMEAL 01/10/24 subcutaneous pen (Humalog KwikPen 30 days #15 mL (U-100) Insulin) albuterol sulfate 90 mcg/actuation 2 puff inhalation Q4H PRN 01/29/24 aerosol inhaler (Ventolin HFA) Shortness Of Breath Or Wheezing 30 days #8.5 grams budesonide 160 mcg-glycopyr 9 2 inh inhalation BID 30 days #10.7 01/29/24 mcg-formot 4.8 mcg/actuation HFA grams inhaler (Breztri Aerosphere) Tirosint 150 mcg capsule 150 mcg PO DAILY #30 caps 04/02/24 (levothyroxine) Allergies Allergy/AdvReac Type Severity Reaction Status Date / Time metformin Allergy Intermediate Diarrhea Verified 04/04/24 17:10 tetracycline Allergy Intermediate hives Verified 01/22/24 13:14 Latex, Natural Rubber Allergy Rash Verified 01/22/24 13:14 haloperidol [From HALDOL] AdvReac Intermediate Irritable Verified 01/22/24 13:14 Review of Systems Review of Systems: Yes all other systems are reviewed and are negative Constitutional: Constitutional: Denies fatigue and Denies fever(s) Cardiovascular: Cardiovascular: Denies chest pain and Denies dyspnea Respiratory: Respiratory: Denies dyspnea Musculoskeletal: Musculoskeletal: Reports arthralgias, Denies joint swelling, Denies numbness and Denies tingling Neurologic: Denies numbness and Denies tingling Endocrine: Endocrine: Denies fatigue [facility] Past Medical History Attestation statement: The following information was validated with the patient. Medical History (Updated 04/05/24 @ 00:02 by Mahesh Nieves) Right fibular fracture Obesity Osteoporosis Hypercapnia COPD (chronic obstructive pulmonary disease) Hypothyroidism Multinodular thyroid HLD (hyperlipidemia) T2DM (type 2 diabetes mellitus) Pneumonitis Chronic respiratory failure Pulmonary nodules Pneumonia Acute and chronic respiratory failure with hypoxia MORGAN on CPAP Morbid (severe) obesity due to excess calories Chronic restrictive lung disease Obesity due to excess calories DM2 (diabetes mellitus, type 2) HLD (hyperlipidemia) Diabetes Goiter Vitamin D deficiency Hypothyroidism Fibula fracture Hx of fracture of patella Back pain GERD (gastroesophageal reflux disease) Hepatitis History of posttraumatic stress disorder (PTSD) Depression Myocardial infarction AAA (abdominal aortic aneurysm) without rupture Morbid obesity Hernia Umbilical hernia PTSD (post-traumatic stress disorder) ADHD Schizo affective schizophrenia Arthritis Migraine Diabetes HTN (hypertension) Gallstone Aortic aneurysm Sleep apnea Asthma Surgical History Hx of knee surgery Hx of tubal ligation History of incision and drainage Tubal ligation status Family History Family History (Reviewed 03/30/23 @ 11:33 by Isabella Frazier [facility]) Father Unknown family medical history Mother Unknown family medical history Sister Ovarian cancer Son No problems noted. Son Depression Son Asthma Bipolar 1 disorder ADHD Daughter No problems noted. Daughter Unknown family medical history Daughter Unknown family medical history Daughter No problems noted. Social History Social History Household Members: Unknown / Unable to assess Caregiver staying overnight: No Housing: Unknown / Unable to assess Are you a primary home care rn to a significant other at home: No Do you presently have visiting nurse or other home services: No 75 years or older and lives alone: No Unable to assess alcohol history related to: Unable to respond Alcohol intake: never Patient Tobacco Use Status: Tobacco use Unknown Tobacco use type: Cigarette Cigarette Packs Per Day: 6 Years Smoked: 35 e-Cigarette/Vaping Use: Currently Using Substance Use Type: Marijuana Advance Directives Date on File: 09/13/21 service: No Current occupational status: unemployed Physical Exam Vital Signs: Vital Signs: Last Vital Signs Temp 97.9 F 04/04/24 22:30 Pulse 80 04/04/24 22:30 Resp 18 04/04/24 22:30 BP 103/64 04/04/24 22:30 Pulse Ox 94 04/04/24 22:30 O2 Del Method Nasal Cannula 04/04/24 22:30 O2 Flow Rate 8 04/04/24 20:01 Oxygen Flow Rate 8 04/04/24 16:50 BMI result Body Mass Index 72.6 Const: Other: Alert, appears older than stated age Orientation/consciousness: patient oriented x3 Resp: Effort & Inspection: normal respiratory effort Cardio: Other: Normal peripheral perfusion Skin: Other: Warm dry no rash Neuro: General: patient oriented x3, no focal motor deficits and CN's II-XI intact bilaterally Extrem: Other: No deformity or overt swelling or ecchymosis noted over the right ankle, there was no pain elicited while taking off her walking boot., the limb is warm and well perfused Psych: Other: Cooperative Medical Decision Making Medical Decision Making MDM Narrative: 54-year-old female with a history of morbid obesity, osteoporosis, osteoarthritis, hyperlipidemia, hypertension, diabetes, coronary artery disease, acute on chronic respiratory failure on supplemental oxygen at home, tobacco abuse, schizo effective, PTSD, recent right ankle fracture, March 08, 2024 in a walking boot, presents with right ankle pain. Patient states she felt a ?pop?, in the ankle while moving in bed. Problem: Essentially bed-bound, morbid obesity, osteoporosis, known right ankle fracture History: Per patient I have considered the following differential diagnoses: Fracture, dislocation Plan: X-rays already ordered of the foot and the ankle, I am holding off on labs, they may not be clinically indicated. I have independently reviewed the following tests: X-ray right foot: IMPRESSION: 1. Fragments about imaged ankle are new when compared to 2019. Please refer to separate report for ankle details and distal fibula fracture. 2. 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 Differential considerations include posttraumatic osteoarthritis. With remodeling about imaged Lisfranc joint by radiographs. Consider CT or MRI, as clinically indicated. 3. Nonspecific soft tissue swelling. This document has been electronically signed by: Keny Gonzalez MD on 04/04/2024 19:08:43 X-ray right ankle:IMPRESSION: 1. Likely subacute to chronic fractures given callus formation including distal fibula, distal tibia, and dorsal distal tibia. 2. 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 3. Effusion present with soft tissue swelling. This document has been electronically signed by: Keny Gonzalez MD on 04/04/2024 19:05:17 Attestation Attending Attestation: I was personally present and available for consultation in the ED. I have reviewed everything on the chart that is available and agree with the documentation provided by the [facility] including discussion about the assessment, treatment plan and discussion. Based on medical record the care appears appropriate. Mikel Villagomez MD [facility] Emergency Medicine Discharge Plan Discharge Clinical Impression: Ankle fracture, right Patient Disposition: Home, Self-Care Instructions: Leg Fracture (ED) Additional Instructions: No new injury was sustained. Keep using your walking boot and follow up with your orthopedic surgeon as directed. Prescriptions: No Action (DME) Ankle Brace Misc See Rx Instructions .ROUTE .MEDSUPPLY Qty: 1 0RF Rx Instructions: AIRSELECT, STANDARD, MEDIUM (DME) pen needle, diabetic [BD Ultra-Fine Mary Pen Needle] 32 gauge x 5/32 needle See Rx Instructions .ROUTE .MEDSUPPLY Qty: 125 6RF Rx Instructions: As directed four times a day (DME) FreeStyle Todd 3 Sensor Device See Rx Instructions .Route Qty: 2 4RF Rx Instructions: As directed change every 14 days Mounjaro 7.5 mg/0.5 mL pen injector 7.5 mg subcut QWEEK 28 Days Qty: 2 5RF (DME) FreeStyle Todd 2 Sensor Kit See Rx Instructions .ROUTE .COMPLEX Qty: 2 5RF Dose Instruction: USE DIRECTED CHANGE EVERY 14 DAYS Rx Instructions: USE DIRECTED CHANGE EVERY 14 DAYS Breztri Aerosphere 160-9-4.8 mcg/actuation HFA aerosol inhaler 2 inh inhalation BID 30 Days Qty: 10.7 2RF albuterol sulfate [Ventolin HFA] 90 mcg/actuation HFA aerosol inhaler 2 puff INHALATION Q4H PRN (Reason: Shortness Of Breath Or Wheezing) 30 Days Qty: 8.5 1RF levothyroxine [Tirosint] 150 mcg capsule 150 mcg PO DAILY Qty: 30 1RF multivitamin Tablet 1 tab PO DAILY@1200 amitriptyline 10 mg Tablet 10 mg PO BEDTIME lisinopril 10 mg Tablet 10 mg PO BEDTIME benztropine 1 mg Tablet 1 mg PO BID@1200,2100 montelukast 10 mg Tablet 10 mg PO BEDTIME furosemide 40 mg tablet 1 tab PO DAILY prazosin 5 mg capsule 1 cap PO BEDTIME folic acid 1 mg tablet 1 tab PO DAILY atenolol 50 mg tablet 50 mg PO DAILY@1200 melatonin 5 mg tablet 10 mg PO BEDTIME PRN (Reason: insomnia) lurasidone [Latuda] 60 mg tablet 60 mg PO DAILY@0800 Rx Instructions: WITH 350 CALORIE MEAL docusate sodium 100 mg Capsule 100 mg PO DAILY PRN (Reason: Constipation) alendronate 70 mg tablet 1 tab PO MO@0600 hydroxyzine HCl 50 mg tablet 1 - 2 tab PO TID PRN (Reason: Anxiety, Sleep, Agitation) fluticasone propionate 50 mcg/actuation spray,suspension 1 spray intranasal DAILY PRN (Reason: ALLERGIES) diclofenac sodium 1 % gel 2 g topical BID Protocol: Apply to: Apply to: KNEE, ANKLE, BACK lidocaine 5 % Adhesive Patch,Medicated 1 patch TOPICAL DAILY Protocol: Apply to: Apply to: KNEES AND BACK Rx Instructions: leave on most painful area for up to 12 hrs acetaminophen 500 mg Tablet 500 mg PO Q6H PRN (Reason: Pain) quetiapine 100 mg Tablet 100 mg PO DAILY@1200 PRN (Reason: Anxiety) quetiapine 300 mg Tablet 300 mg PO BEDTIME Qty: 30 0RF divalproex 250 mg Tablet Extended Release 24 Hr 750 mg PO BEDTIME Qty: 90 0RF (DME) hospital bed Kit See Rx Instructions .Route Qty: 1 0RF Rx Instructions: Bariatric bed nicotine (polacrilex) 4 mg gum 4 mg PO Q2H PRN (Reason: Nicotine Cravings) prazosin 1 mg capsule 1 mg PO BEDTIME Rx Instructions: tdd 6mg divalproex 250 mg tablet extended release 24 hr 750 mg PO DAILY@1200 cetirizine 10 mg tablet 10 mg PO DAILY PRN (Reason: allergies) atorvastatin 40 mg tablet 40 mg PO DAILY Nurtec ODT 75 mg tablet,disintegrating 75 mg PO NEEDED Rx Instructions: no more than 1 tablet per 24 hours nystatin 100,000 unit/gram powder 1 appl topical BID ammonium lactate 12 % lotion 1 appl topical DAILY PRN (Reason: Dry Skin) Rx Instructions: 1 APPLICATION = 2 GRAMS lorazepam 1 mg tablet 1 mg PO DAILY PRN (Reason: panic attack) naproxen 500 mg tablet 500 mg PO BID topiramate 50 mg tablet 50 mg PO DAILY tramadol 50 mg tablet 50 mg PO BID PRN (Reason: Pain) Qty: 60 0RF (DME) nebulizers Misc See Rx Instructions .Route Rx Instructions: As directed (DME) Oxygen Home Use Kit See Rx Instructions .Route Rx Instructions: As directed cholecalciferol (vitamin D3) 50 mcg (2,000 unit) tablet 50 mcg PO DAILY insulin lispro [Humalog KwikPen Insulin] 100 unit/mL insulin pen 14 unit subcut TIDWMEAL 30 Days Qty: 15 4RF insulin glargine U-300 conc [Toujeo Max U-300 SoloStar] 300 unit/mL (3 mL) insulin pen 64 unit subcut DAILY econazole 1 % cream 1 appl topical BID (DME) FreeStyle Precision Ronny Strips Strip See Rx Instructions .ROUTE .COMPLEX Qty: 100 5RF Dose Instruction: TEST BLOOD SUGAR 4 TIMES A DAY DIRECTED Rx Instructions: TEST BLOOD SUGAR 4 TIMES A DAY DIRECTED Interventions: ED Discharge Assessment Last Done: 04/04/24 22:30 Discharge Date/Time: 04/04/24 22:47 Print Language: Wolof
[2024-04-04 20:01] VITALS: BP 103/64; PULSE 80; RESP 18; TEMP 36.6; O2SAT 94
[2024-04-04 22:30] VITALS: BP 103/64; PULSE 80; RESP 18; TEMP 36.6; O2SAT 94
== END 2024-04-04 22:47 | disposition home or self-care (01) ==
PROVIDERS: Emergency Provider Emergency Medicine
DX: S82.891A Other fracture of right lower leg, initial encounter for closed fracture (principal); M25.571 Pain in right ankle and joints of right foot; I25.10 Atherosclerotic heart disease of native coronary artery without angina pectoris; E66.01 Morbid (severe) obesity due to excess calories; J96.90 Respiratory failure, unspecified, unspecified whether with hypoxia or hypercapnia; E11.9 Type 2 diabetes mellitus without complications; F17.210 Nicotine dependence, cigarettes, uncomplicated; X58.XXXA Exposure to other specified factors, initial encounter; Y93.89 Activity, other specified; Y92.89 Other specified places as the place of occurrence of the external cause; Y99.8 Other external cause status; Z68.45 Body mass index [BMI] 70 or greater, adult; Z99.81 Dependence on supplemental oxygen; Z79.4 Long term (current) use of insulin; Z79.899 Other long term (current) drug therapy
CPT/HCPCS: 73610; 73630; 99283; 99284

== ENCOUNTER → 2024-04-04 18:00 | Outpatient (BNV) | payer MEDICAID, SELFPAY | PROVIDERS: Emergency Provider Emergency Medicine; Visit Provider Radiology Neuroradiology | DX: M25.571 Pain in right ankle and joints of right foot (principal); M19.171 Post-traumatic osteoarthritis, right ankle and foot; M25.471 Effusion, right ankle | CPT/HCPCS: 73610; 73630 ==

== ENCOUNTER 2024-05-01 18:23 | Emergency (ER) | payer MEDICAID, SELFPAY ==
--- NOTE | ~2024-05-01 | XR_ITS ---
CLINICAL HISTORY: pain, fx? Pelvis, 1 view COMPARISON: Portions of CT/SR - CT ABDOMEN PELVIS W IV CON - 09/12/22 11:37 EDT FINDINGS: No acute fracture. No dislocation. Unremarkable soft tissues. IMPRESSION: No acute findings. This document has been electronically signed by: Eren Tolbert MD on 05/02/2024 00:07:20
[2024-05-01 18:44] VITALS: BP 110/75; BP 120/90; PULSE 73; PULSE 96; RESP 20; TEMP 37.1; O2SAT 91; O2SAT 96; BMI 65.2
[2024-05-01 18:47] VITALS: BP 110/75; PULSE 73; RESP 20; TEMP 37.1; O2SAT 96
--- OUTSIDE RECORDS SUMMARY | 2024-05-01 19:06 | XMS_ITS | Encounter Summary ---
Author Organization [employer] Address [address] [place] [address] Care Team Providers Care Inbound Sales Advisor Name Role Phone Toyin Pollard Primary Care Provider Satish Brennan MD Unavailable [phone] Jacob Morrow Unavailable [phone] Nicolasa Escobar MD Unavailable Shen Davis MD Unavailable [phone] Encounter Details Date Type Department Care Team (Late st Contact Info) Description 04/22/2024 Telephone [facility] MEDICINE [address] [place], [place] [phone] Toyin Pollard FNP [address] [place], [place] [id number] Social History Tobacco Use Types Packs/Day Years Used Date Smoking Tobacco: Former Cigarettes Passive Smoke Exposure: Past Smokeless Tobacco: Never Alcohol Use Standard Drinks/Week Comments Never 0 (1 standard drink = 0.6 oz pur e alcohol) Depression Answer Date Recorded Patient Health Questionnaire-9 Score 13 08/02/2023 Patient Health Questionnaire-9 Score 13 08/02/2023 Last PHQ-9: Questionnaire Data Not on file 0 08/02/2023 Housing Stability Answer Date Recorded What is your housing situation today? I have cesar andersen 01/02/[address] you li ve. Do you have problems with any of the following? None of the above 01/02/2023 Food Insecurity Answer Date Recorded Within the past 12 months, y ou worried that your food would run out before you got money to buy more: Never True 01/02/2023 Within the past 12 months,th e food you bought just didn't last and you didn't have enough money to get more: Never True Transportation Answer Date Recorded In the past 12 months, has l ack of transportation kept you from medical appts, meetings, work or from getting things needed for daily living? No 01/02/2023 Utilities Answer Date Recorded In the past 12 months, has t he electric, gas, oil or water company threatened to shut off services in your home? No 01/02/2023 Depression Answer Date Recorded Patient Health Questionnaire-2 Score 4 08/02/2023 Comments Unknown Sex and Gender Information Value Date Recorded Sex Assigned at Female 01/17/2022 10:36 AM EDT Legal Sex Female 10:36 AM EDT Gender Identity Female 01/17/2022 10:36 AM EDT Sexual Orientation Straight 01/17/2022 10 :36 AM EDT documented as of this encounter Plan of Treatment Upcoming Encounters Date Type Department Care Team (Late st Contact Info) Description 05/21/2024 2:30 PM EST Clinical Support [facility] MED & PEDS [address] [place] [address] 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, RN [address] [place] [address] documented as of this encounter Goals Goal Patient Goal Type Associated Problems Recent Progress Patient-Stated? Author Hemoglobin A1c < 7 Result Component 6.4(08/02/2023 4:30 PM EDT) No Michelle Alegria, PharmD documented as of this encounter Visit Diagnoses Not on filedocumented in this encounter Additional Health Concerns Assessment Noted Time PHQ-9 Depression Total Score: 13 024 4:37 PM EDT documented as of this encounter Care Teams Inbound Sales Advisor Relationship Specialty Start Date End Date Toyin Pollard FNP [address] [place] [address] PCP - General Family Medicine 01/11/21 Satish Brennan MD [address] [place] [address] Endocrinology 02/22/24 Jacob Morrow [address] [place] [phone] Pulmonary Disease 02/22/24 Nicolasa Escobar MD [address] [place] [address] [address] Neurology 02/22/24 Shen Davis MD [address] [place] [address] Nephrology 02/22/24 Ellyn Connolly Stock SorterSenior Research Project Manager 08/17/23 [facility] 01/11/24 documented as of this encounter
--- OUTSIDE RECORDS SUMMARY | 2024-05-01 19:06 | XMS_ITS | Encounter Summary ---
Author Organization [employer] Address [address] [place] [address] Care Team Providers Care Project Finance Analyst Name Role Phone Toyin Pollard Primary Care Provider Satish Brennan MD Unavailable [phone] Jacob Morrow Unavailable [phone] Nicolasa Escobar MD Unavailable Shen Davis MD Unavailable [phone] Reason for Visit * Reason Comments Med Refill Encounter Details Date Type Department Care Team (Late st Contact Info) Description 04/19/2024 Refill [facility] MEDICINE [address] [place] [address] Toyin Pollard FNP [address] [place], [place] [phone] Dizziness, nonspecific Social History Tobacco Use Types Packs/Day Years [...] Description 05/21/2024 2:30 PM EST Clinical Support [facility] MED & PEDS [address] [place] [address] 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, MIN[place] [address] [place] [address] documented as of this encounter Goals Goal Patient Goal Type Associated Problems Recent Progress Patient-Stated? Author Hemoglobin A1c < 7 Result Component 6.4(08/02/2023 4:30 PM EDT) No Michelle Alegria, PharmD documented as of this encounter Visit Diagnoses Diagnosis Dizziness, nonspecific Dizziness and giddiness documented in this encounter Additional Health Concerns Assessment Noted Time PHQ-9 Depression Total Score: 13 024 4:37 PM EDT documented as of this encounter Care Teams Project Finance Analyst Relationship Specialty Start Date End Date Toyin Pollard FNP [address] [place] [address] PCP - General Family Medicine 01/11/21 Satish Brennan MD [address] [place] [address] Endocrinology 02/22/24 Jacob Morrow [address] [place] [address] Pulmonary Disease 02/22/24 Nicolasa Escobar MD [address] [place] [address] [address] [place] [address] Neurology 02/22/24 Shen Davis MD [address] [place] [address] Nephrology 02/22/24 Ellyn Connolly Workers Compensation CoordinatorManagement Liaison 08/17/23 [facility] 01/11/24 documented as of this encounter
--- OUTSIDE RECORDS SUMMARY | 2024-05-01 19:06 | XMS_ITS | Encounter Summary ---
Author Organization [employer] Address [address] [facility] 7t [place] [address] Care Team Providers Care Top Edge Beveler Name Role Phone Toyin Pollard LOUIE Primary Care Provider [phone] Satish Brennan MD Unavailable [phone] Jacob Morrow Unavailable [phone] Nicolasa Escobar MD Unavailable Shen Davis MD Unavailable [phone] Encounter Details Date Type Department Care Team (Latest Contact Info) Description 04/15/2024 Travel Social History Tobacco Use Types Packs/Day Years [...] Description 05/21/2024 2:30 PM EST Clinical Support [facility] MED & PEDS 505 [place] [address] 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 RN 505 [place] [address] documented as of this encounter Goals Goal Patient Goal Type Associated Problems Recent Progress Patient-Stated? Author Hemoglobin A1c < 7 Result Component 6.4(08/02/2023 4:30 PM EDT) No Michelle Alegria, FabioD documented as of this encounter Visit Diagnoses Not on filedocumented in this encounter Additional Health Concerns Assessment Noted Time PHQ-9 Depression Total Score: 13 024 4:37 PM EDT documented as of this encounter Care Teams Top Edge Beveler Relationship Specialty Start Date End Date Toyin Pollard FNP [address] [place] [address] PCP - General Family Medicine 01/11/21 Satish Brennan MD [address] [place] [address] Endocrinology 02/22/24 Jacob Morrow 5 [place] [address] Pulmonary Disease 02/22/24 Nicolasa Escobar MD [address] [place] [address] Dr [address] [place] [address] Neurology 02/22/24 Shen Davis MD [address] [place] [address] Drive [address] [place] [address] Nephrology 02/22/24 Ellyn Connolly KinesiotherapistGoldbeater 08/17/23 [facility] 01/11/24 documented as of this encounter
--- OUTSIDE RECORDS SUMMARY | 2024-05-01 19:06 | XMS_ITS | Encounter Summary ---
Author Organization [employer] Address [address] [facility] 7t [place] [address] Care Team Providers Care Peoplesoft Functional Analyst Name Role Phone Toyin Pollard Primary Care Provider Satish Brennan MD Unavailable Jacob Morrow Unavailable [phone] Nicolasa Escobar MD Unavailable [phone] Shen Davis MD Unavailable [phone] Reason for Visit * Reason Onset Date Comments Hospital Follow-up 09/19/2022 Encounter Details Date Type Department Care Team (Late st Contact Info) Description 09/19/2022 Telephone [facility] MEDICINE [address] [place] [address] Toyin Pollard FNP 505 [place], [place] [id number] Hospital Follow-up Social History Tobacco Use Types Packs/Day Years Used Date Smoking Tobacco: Unknown Comments Unknown Sex and Gender Information Value Date Recorded Sex Assigned at Female 01/17/2022 10:36 AM EDT Legal Sex Female 10:36 AM EDT Gender Identity Female 01/17/2022 10:36 AM EDT Sexual Orientation Straight 01/17/2022 10 :36 AM EDT documented as of this encounter Miscellaneous Notes * Telephone Encounter - Lele Ponce RN - 09/21/2022 4:17 PM EDT RN consulted with PCP, PCP aware of recent admission. PCP requested in person appointment. Pt was called by RN and patient agreed to come in person on 09/22/22 at 9 am * Telephone Encounter - Clara Simmons - 09/19/2022 1:48 PM EDT Tc from pt requesting a HDF appt. Pt was admitted at [facility] on 09/08/22 and discharged on 09/16/22. Pt was diagnosed with pneumonia. Please contact dionisio at [phone] documented in this encounter Plan of Treatment Upcoming Encounters Date Type Department Care Team (Late st Contact Info) Description 05/21/2024 2:30 PM EST Clinical Support [facility] MED & PEDS 505 [place] [address] 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 RN 505 [place] [address] documented as of this encounter Visit Diagnoses Not on filedocumented in this encounter Care Teams Peoplesoft Functional Analyst Relationship Specialty Start Date End Date Toyin Pollard FNP [address] [place] [address] PCP - General Family Medicine 01/11/21 Satish Brennan MD 10 [facility] 104 [place] [address] Endocrinology 02/22/24 Jacob Morrow 5 [place] [address] Pulmonary Disease 02/22/24 Nicolasa Escobar MD [address] [place] [address] Dr Kameron 140 [place] [address] Neurology 02/22/24 Shen Davis MD [address] [facility] [address] [place] [address] Nephrology 02/22/24 Ellyn Connolly Acquisition AdvisorSolar Lab Technician 08/17/23 [facility] 01/11/24 01/21/24 [facility] 01/11/24 documented as of this encounter
--- OUTSIDE RECORDS SUMMARY | 2024-05-01 19:06 | XMS_ITS | Encounter Summary ---
Author Organization [employer] Address [address] [facility] 7t [place] [address] Care Team Providers Care Grain Mill Products Inspector Name Role Phone Toyin Pollard Primary Care Provider [phone] Satish Brennan MD Unavailable Jacob Morrow Unavailable [phone] Nicolasa Escobar MD Unavailable Shen Davis MD Unavailable [phone] Reason for Visit * Reason Comments Med Refill Encounter Details Date Type Department Care Team (Late st Contact Info) Description 04/30/2024 Refill [facility] MEDICINE 230 [place] [address] Toyin Pollard FNP 505 [place], [place] [phone] Smokes cigarettes Social History Tobacco Use Types Packs/Day Years [...] Description 05/21/2024 2:30 PM EST Clinical Support [facility] MED & PEDS 505 [place] [address] 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, MINA 505 [place] [address] documented as of this encounter Goals Goal Patient Goal Type Associated Problems Recent Progress Patient-Stated? Author Hemoglobin A1c < 7 Result Component 6.4(08/02/2023 4:30 PM EDT) No Michelle Alegria, PharmD documented as of this encounter Visit Diagnoses Diagnosis Smokes cigarettes documented in this encounter Additional Health Concerns Assessment Noted Time PHQ-9 Depression Total Score: 13 024 4:37 PM EDT documented as of this encounter Care Teams Grain Mill Products Inspector Relationship Specialty Start Date End Date Toyin Pollard FNP 230 [place] [address] PCP - General Family Medicine 01/11/21 Satish Brennan MD [address] [place] [address] Endocrinology 02/22/24 Jacob Morrow [address] [facility] [place] [address] Pulmonary Disease 02/22/24 Nicolasa Escobar MD [address] [place] [address] [address] Neurology 02/22/24 Shen Davis MD [address] [place] [address] Nephrology 02/22/24 Ellyn Connolly Spring InternFinancial Recording Clerk 08/17/23 [facility] 01/11/24 documented as of this encounter
--- OUTSIDE RECORDS SUMMARY | 2024-05-01 19:07 | XMS_ITS | Encounter Summary ---
Author Organization [employer] Address [address] [facility] 7t [place] [address] Care Team Providers Care Software Controls Engineer Name Role Phone Toyin Pollard LOUIE Primary Care Provider [phone] Satish Brennan MD Unavailable [phone] Jacbo Morrow Unavailable [phone] Nicolasa Escobar MD Unavailable Shen Davis MD Unavailable [phone] Encounter Details Date Type Department Care Team (Late st Contact Info) Description 06/15/2022 Orders Only [facility] MED & PEDS 505 [place] [address] Ellyn Chery LPN Social History Tobacco Use Types Packs/Day Years Used Date Smoking Tobacco: Never Assessed Comments Unknown Sex and Gender Information Value Date Recorded Sex Assigned at Female 01/17/2022 10:36 AM EDT Legal Sex Female 10:36 AM EDT Gender Identity Female 01/17/2022 10:36 AM EDT Sexual Orientation Straight 01/17/2022 10 :36 AM EDT documented as of this encounter Plan of Treatment Upcoming Encounters Date Type Department Care Team (Late Contact Info) Description 05/21/2024 2:30 PM EST Clinical Support [facility] MED & PEDS 505 [place] [address] 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, RN 505 [place] [address] documented as of this encounter Visit Diagnoses Not on filedocumented in this encounter Care Teams Software Controls Engineer Relationship Specialty Start Date End Date Toyin Pollard FNP 230 [place] [address] PCP - General Family Medicine 01/11/21 Satish Brennan MD [address] [place] [address] Endocrinology 02/22/24 Jacob Morrow 5 [place] [address] Pulmonary Disease 02/22/24 Nicolasa Escobar MD [address] [place] [address] Dr [facility] 140 [place] [address] Neurology 02/22/24 Shen Davis MD [address] [place] [address] Nephrology 02/22/24 Ellyn Connolly Client Care RepresentativeNitric Acid Concentrator Operator 08/17/23 [facility] 01/11/24 01/21/24 [facility] 01/11/24 documented as of this encounter
--- OUTSIDE RECORDS SUMMARY | 2024-05-01 19:07 | XMS_ITS | Encounter Summary ---
Author Organization [employer] Address [address] [facility] 7t [place] [address] Care Team Providers Care Screw Machine Repairer Name Role Phone JuddToyin barry LOUIE Primary Care Provider Satish Brennan MD Unavailable Jacob Morrow Unavailable [phone] Nicolasa Escobar MD Unavailable Shen Davis MD Unavailable [phone] Encounter Details Date Type Department Care Team (Late st Contact Info) Description 07/20/2023 Orders Only [facility] MEDICINE 230 [place], [place] [phone] Agustina Toribio MD 230 [place], [place] [phone] Hyperkalemia (Primary Dx) Social History Tobacco Use Types Packs/Day Years Used Date Smoking Tobacco: Former Cigarettes Passive Smoke Exposure: Past Smokeless Tobacco: Never Alcohol Use Standard Drinks/Week Comments Never 0 (1 standard drink = 0.6 oz pur e alcohol) Depression Answer Date Recorded Patient Health Questionnaire-9 Score 0 09/28/2022 Housing Stability Answer Date Recorded What is [...] Answer Date Recorded Patient Health Questionnaire-2 Score 0 09/28/2022 Comments Unknown Sex and Gender Information Value [...] Description 05/21/2024 2:30 PM EST Clinical Support [facility] MED & PEDS 505 [place] [address] 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 RN 505 [place] [address] Scheduled Orders Name Type Priority Associated Diagnoses Orde r Schedule Basic Metabolic Panel Lab Routine Hyperkalemia Expected: 07/20/2023 (Approximate), Expires: 07/19/2024 documented as of this encounter Goals Goal Patient Goal Type Associated Problems Recent Progress Patient-Stated? Author Hemoglobin A1c < 7 Result Component 6.4(08/02/2023 4:30 PM EDT) No Michelle Alegria, PharmD documented as of this encounter Visit Diagnoses Diagnosis Hyperkalemia- Primary Hyperpotassemia documented in this encounter Additional Health Concerns Assessment Noted Time PHQ-9 Depression Total Score: 0 09/29/19 23 2:03 PM EDT documented as of this encounter Care Teams Screw Machine Repairer Relationship Specialty Start Date End Date Toyin Pollard FNP 230 [place] [address] PCP - General Family Medicine 01/11/21 Satish Brennan MD [address] [place] [address] Endocrinology 02/22/24 Jacob Morrow [address] [place] [address] Pulmonary Disease 02/22/24 Nicolasa Escobar MD [address] [place] [address] [id number] Neurology 02/22/24 Shen Davis MD [address] [place] [address] Nephrology 02/22/24 Ellyn Connolly Photo Offset PrinterBrick And Tile Making Machine Operator 08/17/23 [facility] 01/11/24 01/21/24 [facility] 01/11/24 documented as of this encounter
--- OUTSIDE RECORDS SUMMARY | 2024-05-01 19:07 | XMS_ITS | Encounter Summary ---
Author Organization [employer] Address [address] [facility] 7t [place] [address] Care Team Providers Care Domestic Housekeeper Name Role Phone JuddToyin barry LOUIE Primary Care Provider [phone] Satish Brennan MD Unavailable [phone] Jacob Morrow Unavailable [phone] Nicolasa Escobar MD Unavailable Shen Davis MD Unavailable [phone] Encounter Details Date Type Department Care Team (Late st Contact Info) Description 04/04/2024 Orders Only [facility] External Provider, [facility] Social History Tobacco Use Types Packs/Day Years [...] Upcoming Encounters Date Type Department Care Team ([facility] st Contact Info) Description 05/21/2024 2:30 PM EST Clinical Support [facility] MED & PEDS 505 [place] [address] 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, RN 505 [place] [address] documented as of this encounter Goals Goal Patient Goal Type Associated Problems Recent Progress Patient-Stated? Author Hemoglobin A1c < 7 Result Component 6.4(08/02/2023 4:30 PM EDT) No Michelle Alegria, PharmD documented as of this encounter Procedures Procedure Name Priority Date/Time Associated Diagnosis Comments XR FOOT 3+ VIEWS RIGHT Routine 04/04/2024 7:08 PM EST XR ANKLE 3+ VIEWS RIGHT Routine 04/04/2024 7:05 PM EST documented in this encounter Results * XR Foot 3+ Views Right (04/04/2024 7:08 PM EST) Anatomical Region Laterality Modality Lower Extremities, Foot Right Radiogra phic Imaging 04/04/2024 7:08 PM EST Narrative 04/04/2024 7:10 PM EST ? [facility] [place] [facility] ?[address] ?[place] [address] ?XRay Report ? Signed ? Patient: John,Elle ?MR#: [id number] ?? 57 ? : 1970 ?Acct:[id number] ? Age/Sex: 54 / F ?ADM Date: 04/04/24 ? Loc: HO.ED ? Attending Dr: ? Ordering Physician: Silvia Jose ?? Date of Service: 04/04/24 ?? Procedure(s): XR foot RT min 3V ?? Accession Number(s): [id number] ? cc: [facility]; Silvia Jose ? CLINICAL HISTORY: pain ? 3 view right foot ? Comparison: Right foot x-rays from 01/11/2020 ? Findings: ?? New dorsal fragment of the distal calcaneus. Please refer to separate ?? report for additional ankle details with soft tissue swelling and effusion ?? and new deformity of the imaged ankle. ?? Osteoarthritis of the imaged foot is moderate and markedly greater than ?? expected for age. Low bone mineralization suggested. Sclerosis and ?? remodeling about imaged Lisfranc joint without definite acute ?? malalignment. Soft tissue swelling is nonspecific. No radiopaque retained ?? foreign body in the mnswj-qj-eitw. ? IMPRESSION: ?? 1. Fragments about imaged ankle are new when compared to 2019. Please ?? refer to separate report for ankle details and distal fibula fracture. ?? 2. 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 ?? Differential considerations include posttraumatic osteoarthritis. With ?? remodeling about imaged Lisfranc joint by radiographs. Consider CT or MRI, ?? as clinically indicated. ?? 3. Nonspecific soft tissue swelling. ? This document has been electronically signed by: Keny Gonzalez MD on ?? 04/04/2024 19:08:43 ? Dictated By: ?Keny Gonzalez MD ? Signed By: ?<Electronically signed by Keny Gonzalez MD in OV> ? 04/04/241908 ? DD/ 07 ? TD/TT: 04/04/241907 ? Boiler Fitter: ? Procedure Note Anoop Babcock - 04/04/[address] [address] XRay Report Signed Patient: Elle LopezMR#: [id number] 57 : 1970Acct:[id number] Age/Sex: 54 / FADM Date: 04/04/24 Loc: HO.ED Attending Dr: Ordering Physician: Silvia Jose Date of Service: 04/04/24 Procedure(s): XR foot RT min 3V Accession Number(s): [id number] cc: [facility]; Silvia Jose CLINICAL HISTORY: pain 3 view right foot Comparison: Right foot x-rays from 01/11/2020 Findings: New dorsal fragment of the distal calcaneus. Please refer to separate report for additional ankle details with soft tissue swelling and effusion and new deformity of the imaged ankle. Osteoarthritis of the imaged foot is moderate and markedly greater than expected for age. Low bone mineralization suggested. Sclerosis and remodeling about imaged Lisfranc joint without definite acute malalignment. Soft tissue swelling is nonspecific. No radiopaque retained foreign body in the uflee-xg-hgfu. IMPRESSION: 1. Fragments about imaged ankle are new when compared to 2019. Please refer to separate report for ankle details and distal fibula fracture. 2. 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 Differential considerations include posttraumatic osteoarthritis. With remodeling about imaged Lisfranc joint by radiographs. Consider CT or MRI, as clinically indicated. 3. Nonspecific soft tissue swelling. This document has been electronically signed by: Keny Gonzalez MD on 04/04/2024 19:08:43 Dictated By: Keny Gonzalez MD Signed By: <Electronically signed by Keny Gonzalez MD in OV> 04/04/241908 DD/ 07 TD/TT: 04/04/241907 Boiler Fitter: [facility] External Provider IMG XR PROCEDURES Final Result * XR Ankle 3+ Views Right (04/04/2024 7:05 PM EST) Anatomical Region Laterality Modality Lower Extremities, Ankle Right Radiogr aphic Imaging 04/04/2024 7:05 PM EST Narrative 04/04/2024 7:06 PM EST ? [facility] ?[address] ?[place] [address] ?XRay Report ? Signed ? Patient: John,Elle ?MR#: [id number] ?? 57 ? : 1970 ?Acct:[id number] ? Age/Sex: 54 / F ?ADM Date: 01/16/25 ? Loc: HO.ED ? Attending Dr: ? Ordering Physician: Silvia Jose ?? Date of Service: 04/04/24 ?? Procedure(s): XR ankle RT min 3V ?? Accession Number(s): [id number] ? cc: [facility]; Silvia Jose ? CLINICAL HISTORY: pain ? 3 view right ankle ? Comparison: None ? Findings: ?? Subacute fracture with remodeling at distal fibula diaphysis. Age ?? indeterminate fracture fragments medial malleolus are also likely subacute ?? to chronic with remodeling. Additional small fragments about dorsal talus. ?? Moderate osteoarthritis is favored to represent posttraumatic ?? osteoarthritis of the ankle mortise without dislocation. ?? Large effusion is present. Diffuse soft tissue swelling noted. Please ?? refer to separate report for included foot. ? IMPRESSION: ?? 1. Likely subacute to chronic fractures given callus formation including ?? distal fibula, distal tibia, and dorsal distal tibia. ?? 2. 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 without dislocation. ?? 3. Effusion present with soft tissue swelling. ? This document has been electronically signed by: Keny Gonzalez MD on ?? 04/04/2024 19:05:17 ? Dictated By: ?Keny Gonzalez MD ? Signed By: ?<Electronically signed by Keny Gonzalez MD in OV> ? 04/04/241905 ? DD/ 04 ? TD/TT: 04/04/241904 ? Boiler Fitter: ? Procedure Note Anoop Babcock - 04/04/2024 [place] [address] XRay Report Signed Patient: Elle LopezMR#: [id number] 57 : 1970Acct:[id number] Age/Sex: 54 / FADM Date: 04/04/24 Loc: HO.ED Attending Dr: Ordering Physician: Silvia Jose Date of Service: 04/04/24 Procedure(s): XR ankle RT min 3V Accession Number(s): [id number] cc: [facility]; Silvia Jose CLINICAL HISTORY: pain 3 view right ankle Comparison: None Findings: Subacute fracture with remodeling at distal fibula diaphysis. Age indeterminate fracture fragments medial malleolus are also likely subacute to chronic with remodeling. Additional small fragments about dorsal talus. Moderate osteoarthritis is favored to represent posttraumatic osteoarthritis of the ankle mortise without dislocation. Large effusion is present. Diffuse soft tissue swelling noted. Please refer to separate report for included foot. IMPRESSION: 1. Likely subacute to chronic fractures given callus formation including distal fibula, distal tibia, and dorsal distal tibia. 2. 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 3. Effusion present with soft tissue swelling. This document has been electronically signed by: Keny Gonzalez MD on 04/04/2024 19:05:17 Dictated By: Keny Gonzalez MD Signed By: <Electronically signed by Keny Gonzalez MD in OV> 04/04/241905 DD/ 04 TD/TT: 04/04/241904 Boiler Fitter: [facility] External Provider IMG XR PROCEDURES Final Result documented in this encounter Visit Diagnoses Not on filedocumented in this encounter Additional Health Concerns Assessment Noted Time PHQ-9 Depression Total Score: 13 024 4:37 PM EDT documented as of this encounter Care Teams Domestic Housekeeper Relationship Specialty Start Date End Date Toyin Pollard FNP [address] [place] [address] PCP - General Family Medicine 01/11/21 Satish Brennan MD [address] [facility] [address] [place] [address] Endocrinology 02/22/24 Jacob Morrow 5 [place] [address] Pulmonary Disease 02/22/24 Nicolasa Escobar MD [address] [place] [address] [address] Neurology 02/22/24 Shen Davis MD [address] [facility] [address] [facility] [address] [place] [address] Nephrology 02/22/24 Ellyn Connolly Membership AdministratorOrthopedic Specialist 08/17/23 [facility] 01/11/24 documented as of this encounter
--- OUTSIDE RECORDS SUMMARY | 2024-05-01 19:07 | XMS_ITS | Encounter Summary ---
Author Organization [employer] Address [address] [facility] 7[address] [place] [address] Care Team Providers Care Accounting Manager Name Role Phone Toyin Pollard Primary Care Provider Satish Brennan MD Unavailable Jacob Morrow Unavailable [phone] Nicolasa Escobar MD Unavailable [phone] Shen Davis MD Unavailable [phone] Reason for Visit * Reason Onset Date Comments PT1 11/02/2022 Encounter Details Date Type Department Care Team (Late st Contact Info) Description 11/02/2022 Telephone [facility] MEDICINE 230 [place], [place] [phone] Toyin Pollard FNP 505 [place], [place] [phone] PT1 Social History Tobacco Use Types Packs/Day Years Used Date Smoking Tobacco: Former Cigarettes Smokeless Tobacco: Never Alcohol Use Standard Drinks/Week Comments Never 0 (1 standard drink = 0.6 oz pur e alcohol) Depression Answer Date Recorded Patient Health Questionnaire-9 Score 0 09/28/2022 Depression Answer Date Recorded Patient Health Questionnaire-2 Score 0 09/28/2022 Comments Unknown Sex and Gender Information Value Date Recorded Sex Assigned at Female 01/17/2022 10:36 AM EDT Legal Sex Female 10:36 AM EDT Gender Identity Female 01/17/2022 10:36 AM EDT Sexual Orientation Straight 01/17/2022 10 :36 AM EDT documented as of this encounter Miscellaneous Notes * Telephone Encounter - Hemalatha Minor - 11/02/2022 3:03 PM EDT [facility] a PT1 Location: [facility] Specialty: Provider or clinic appts Date&Time:n/A Woodworking Machine Setter:N/a documented in this encounter Plan of Treatment Upcoming Encounters Date Type Department Care Team (Late st Contact Info) Description 05/21/2024 2:30 PM EST Clinical Support [facility] MED & PEDS 505 [place] [address] 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, RN 505 [place] [address] documented as of this encounter Visit Diagnoses Not on filedocumented in this encounter Additional Health Concerns Assessment Noted Time PHQ-9 Depression Total Score: 0 09/29/19 23 2:03 PM EDT documented as of this encounter Care Teams Accounting Manager Relationship Specialty Start Date End Date Toyin Pollard FNP 230 [place] [address] PCP - General Family Medicine 01/11/21 Satish Brennan MD [address] [place] [address] Endocrinology 02/22/24 Jacob Morrow 5 [place] [address] Pulmonary Disease 02/22/24 Nicolasa Escobar MD [address] [place] [address] Dr Kameron [address] [place] [address] Neurology 02/22/24 Shen Davis MD [address] [place] [address] Nephrology 02/22/24 Ellyn Connolly Adjunct Mathematics InstructorEfficiency Engineer 08/17/23 [facility] 01/11/24 01/21/24 [facility] 01/11/24 documented as of this encounter
--- OUTSIDE RECORDS SUMMARY | 2024-05-01 19:07 | XMS_ITS | Encounter Summary ---
Author Organization [employer] Address [address] [facility] 7t [place] [address] Care Team Providers Care Domestic Maid Name Role Phone JuddToyin barry LOUIE Primary Care Provider [phone] Satish Brennan MD Unavailable Jacob Morrow Unavailable [phone] Nicolasa Escobar MD Unavailable Shen Davis MD Unavailable [phone] Reason for Visit * Reason Onset Date Comments Appointment 12/27/2022 Encounter Details Date Type Department Care Team ([facility] st Contact Info) Description 12/27/2022 Telephone [facility] [address] [place], [place] [phone] Nestor Varela DDS [address] [place], [place] [phone] Appointment Social History Tobacco Use Types Packs/Day Years Used Date Smoking Tobacco: Former Cigarettes Smokeless Tobacco: Never Alcohol Use Standard Drinks/Week Comments Never 0 (1 standard drink = 0.6 oz pur e alcohol) Depression Answer Date Recorded Patient Health Questionnaire-9 Score 0 09/28/2022 Housing Stability Answer Date Recorded What is your housing situation today? I have cesar andersen 12/26/[address] you li ve. Do you have problems with any of the following? None of the above 12/26/2022 Food Insecurity Answer Date Recorded Within the past 12 months, y ou worried that your food would run out before you got money to buy more: Never True 12/26/2022 Within the past 12 months,th e food you bought just didn't last and you didn't have enough money to get more: Never True 11/2022 Transportation Answer Date Recorded In the past 12 months, has l ack of transportation kept you from medical appts, meetings, work or from getting things needed for daily living? No 12/26/2022 Utilities Answer Date Recorded In the past 12 months, has t he electric, gas, oil or water company threatened to shut off services in your home? No 12/26/2022 Depression Answer Date Recorded Patient Health Questionnaire-2 Score 0 09/28/2022 Comments Unknown Sex and Gender Information Value Date Recorded Sex Assigned at Female 01/17/2022 10:36 AM EDT Legal Sex Female 10:36 AM EDT Gender Identity Female 01/17/2022 10:36 AM EDT Sexual Orientation Straight 01/17/2022 10 :36 AM EDT documented as of this encounter Miscellaneous Notes * Telephone Encounter - Tammy Cagle - 12/27/2022 3:56 PM EDT Patient is looking for an appt adjustment of meghan dentures. She states she has never been able to wear them without pain or becoming sore. She would like a Monday morning DR documented in this encounter Plan of Treatment Upcoming Encounters Date Type Department Care Team (Late st Contact Info) Description 05/21/2024 2:30 PM EST Clinical Support [facility] 505 [place] [address] 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, MINA 505 [place] [address] documented as of this encounter Visit Diagnoses Not on filedocumented in this encounter Additional Health Concerns Assessment Noted Time PHQ-9 Depression Total Score: 0 09/29/19 23 2:03 PM EDT documented as of this encounter Care Teams Domestic Maid Relationship Specialty Start Date End Date Toyin Pollard FNP [address] [place] [address] PCP - General Family Medicine 01/11/21 Satish Brennan MD [address] [place] [address] Endocrinology 02/22/24 Jacob Morrow [address] [place] [address] Pulmonary Disease 02/22/24 Nicolasa Escobar MD [address] [place] [address] Dr [facility] 140 [place], [place] [phone] Neurology 02/22/24 Shen Davis MD [address] [place] [address] Nephrology 02/22/24 Ellyn Connolly Poultry Field Service TechnicianArchitectural Engineering Teacher 08/17/23 [facility] 01/11/24 01/21/24 [facility] 01/11/24 documented as of this encounter
--- OUTSIDE RECORDS SUMMARY | 2024-05-01 19:07 | XMS_ITS | Clinical Summary ---
Author Organization [facility] Address [address] [facility] [address] 0 [place] [address] Phone Care Team Providers Care Site Lead Name Role Phone Toyin Pollard LOUIE Primary Care Provider [phone] Social History Tobacco Use Types Packs/Day Years Used Date Smoking Tobacco: Never Assessed Comments Unknown Sex and Gender Information Value Date Recorded Sex Assigned at Not on file Legal Sex Female 8:09 AM EDT Gender Identity Not on file Sexual Orientation Not on file Plan of Treatment Health Maintenance Due Date Last Done Comments Breast Cancer Screening 1971 Hepatitis B Vaccine (1 of 3 - 19+ 3-dose series) 1990 Colorectal Cancer Screening: Annual FOBT 02/17/2020 Colorectal Cancer Screening: Colonoscopy 02/17/2020 Colorectal Cancer Screening: Sigmoidoscopy 02/17/2020 Influenza Vaccine (#1) 2023 Pneumococcal Vaccine: Pediat rics (0 to 5 Years) and At-Risk Patients (6 to 64 Years) Aged Out No longer eligible b ased on patient's age to complete this topic [place] Care Teams Site Lead Relationship Specialty Start Date End Date Toyin Pollard FNP 230 [place] [address] PCP - General 09/13/22
--- OUTSIDE RECORDS SUMMARY | 2024-05-01 19:07 | XMS_ITS | Encounter Summary ---
Author Organization [employer] Address 75 [facility] 7t [place] [address] Care Team Providers Care Naturalist Name Role Phone Toyin Pollard Primary Care Provider Satish Brennan MD Unavailable Jacob Morrow Unavailable [phone] Nicolasa Escobar MD Unavailable Shen Davis MD Unavailable [phone] Reason for Visit * Reason Comments Med Refill Encounter Details Date Type Department Care Team ([facility] st Contact Info) Description 04/14/2024 Refill [facility] 230 [place] [address] Toyin Pollard FNP 505 [place], [place] [phone] Social History Tobacco Use Types Packs/Day Years [...] Description 05/21/2024 2:30 PM EST Clinical Support [facility] 505 [place] [address] 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, MINA 505 [place] [address] documented as of this encounter Goals Goal [...] documented as of this encounter Care Teams Naturalist Relationship Specialty Start Date End Date Toyin Pollard FNP 230 [place] [address] PCP - General Family Medicine 01/11/21 Satish Brennan MD [address] [place] [address] Endocrinology 02/22/24 Jacob Morrow [address] [facility] [place] [address] Pulmonary Disease 02/22/24 Nicolasa Escobar MD [address] [place] [address] Dr Kameron [address] [place] [address] Neurology 02/22/24 Shen Davis MD [address] [place] [address] Nephrology 02/22/24 Ellyn Connolly Surface HydrologistDrafter Detail 08/17/23 [facility] 01/11/24 documented as of this encounter
--- OUTSIDE RECORDS SUMMARY | 2024-05-01 19:07 | XMS_ITS | Encounter Summary ---
Author Organization [employer] Address 75 [facility] 7t [place] [address] Care Team Providers Care Document Controller Name Role Phone Toyin Pollard Primary Care Provider Satish Brennan MD Unavailable Jacob Morrow Unavailable [phone] Nicolasa Escobar MD Unavailable [phone] Shen Davis MD Unavailable [phone] Reason for Visit * Reason Onset Date Comments Durable Medical Equipment 02/19/2024 Encounter Details Date Type Department Care Team (Late st Contact Info) Description 02/19/2024 Telephone [facility] 230 [place], [place] [phone] Toyin Pollard FNP 505 [place], [place] [phone] Durable Medical Equipment Social History Tobacco Use Types Packs/Day Years [...] encounter Miscellaneous Notes * Telephone Encounter - Mona Ivory LPN - 02/20/2024 10:21 AM EST Hr Business Partner did see Rx was sent to [phone] pt has current RX no need for updates, gag writer Parisa at number below. However no answer and mail box full . Pt has appt tomorrow pt should discussthis need sending to PCP as FYI . Tc from [facility] ([employer]) requesting a new order for pt to be sent over for Poise sanitary pads , adult diapers oversized . Any questions please get in contact with [facility] at the callback number above. Callback [phone] * Telephone Encounter - Christina Paul - 02/19/2024 3:28 PM EST Tc from [facility] ([employer]) requesting a new order for pt to be sent over for Poise sanitary pads , adult diapers oversized . Any questions please get in contact with [facility] at the callback number above. Callback [phone] documented in this encounter Plan of Treatment Upcoming Encounters Date Type Department Care Team ([facility] st Contact Info) Description 05/21/2024 2:30 PM EST Clinical Support [facility] MED & PED[facility] 505 [place] [address] 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, RN 505 [place], [place] documented as of this encounter Goals Goal [...] documented as of this encounter Care Teams Document Controller Relationship Specialty Start Date End Date Toyin Pollard FNP [address] [place] [address] PCP - General Family Medicine 01/11/21 Satish Brennan MD [address] [place] [address] Endocrinology 02/22/24 Jacob Morrow 5 [place] [address] Pulmonary Disease 02/22/24 Nicolasa Escobar MD [address] [place] [address] Dr [address] 140 [place] [address] Neurology 02/22/24 Shen Davis MD [address] [facility] [address] [place] [address] Nephrology 02/22/24 Ellyn Connolly Director Of RehabilitationMedical Lab Specialist 5/30/24 [facility] 01/11/24 documented as of this encounter
--- OUTSIDE RECORDS SUMMARY | 2024-05-01 19:07 | XMS_ITS | Encounter Summary ---
Author Organization [employer] Address [address] [place] [address] 7t [place] [address] Care Team Providers Care Chandelier Maker Name Role Phone Toyin Pollard Primary Care Provider Satish Brennan MD Unavailable Jacob Morrow Unavailable [phone] Nicolasa Escobar MD Unavailable Shen Davis MD Unavailable [phone] Encounter Details Date Type Department Care Team (Late st Contact Info) Description 04/26/2022 Abstract [facility] MEDICINE [address] [place], [place] [phone] Toyin Pollard FNP 505 [place] [address] Social History Tobacco Use Types Packs/Day Years [...] Description 05/21/2024 2:30 PM EST Clinical Support [facility] & PEDS 505 [place], [place] [phone] 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, RN 505 [place], [place] [phone] documented as of this encounter Visit Diagnoses Not on filedocumented in this encounter Care Teams Chandelier Maker Relationship Specialty Start Date End Date Toyin Pollard FNP 230 [place] [address] PCP - General Family Medicine 01/11/21 Satish Brennan MD [address] [place] [address] Endocrinology 02/22/24 Jacob Morrow 5 [place] [address] Pulmonary Disease 02/22/24 Nicolasa Escobar MD [address] [place] [address] Neurology 02/22/24 Shen Davis MD [address] [place] [address] Nephrology 02/22/24 Ellyn Connolly Pleating Machine OperatorWater Pipe Installer 08/17/23 [facility] 01/11/24 01/21/24 [facility] 01/11/24 documented as of this encounter
--- OUTSIDE RECORDS SUMMARY | 2024-05-01 19:07 | XMS_ITS | Encounter Summary ---
Author Organization [employer] Address [address] [facility] [address]t [place] [address] Care Team Providers Care Meat Department Manager Name Role Phone Toyin Pollard Primary Care Provider Satish Brennan MD Unavailable Jacob Morrow Unavailable [phone] Nicolasa Escobar MD Unavailable Shen Davis MD Unavailable [phone] Reason for Visit * Reason Comments Med Refill Encounter Details Date Type Department Care Team ([facility] st Contact Info) Description 01/24/2023 Refill [facility]EDS 505 [place], [place] [phone] Toyin Pollard FNP 505 [place], [place] [phone] Pain Social History Tobacco Use Types Packs/Day Years [...] 2:30 PM EST Clinical Support [facility] 505 [place] [address] 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 RN 505 [place] [address] documented as of this encounter Goals Goal Patient Goal Type Associated Problems Recent Progress Patient-Stated? Author Hemoglobin A1c < 7 Result Component 6.4(08/02/2023 4:30 PM EDT) No Michelle Alegria, PharmD documented as of this encounter Visit Diagnoses Diagnosis Pain Generalized pain documented in this encounter Additional Health Concerns Assessment Noted Time PHQ-9 Depression Total Score: 0 09/29/19 23 2:03 PM EDT documented as of this encounter Care Teams Meat Department Manager Relationship Specialty Start Date End Date Toyin Pollard FNP 230 [place] [address] PCP - General Family Medicine 01/11/21 Satish Brennan MD [address] [place] [address] Endocrinology 02/22/24 Jacob Morrow [address] [facility] [address] [place] [address] Pulmonary Disease 02/22/24 Nicolasa Escobar MD [address] [place] [address] [phone] Neurology 02/22/24 Shen Davis MD [address] [facility] [place] [address] Nephrology 02/22/24 Ellyn Connolly Openstack Cloud Consulting ArchitectEnterprise Application Administrator 08/17/23 [facility] 01/11/24 01/21/24 [facility] 01/11/24 documented as of this encounter
--- OUTSIDE RECORDS SUMMARY | 2024-05-01 19:07 | XMS_ITS | Encounter Summary ---
Author Organization [employer] Address [address] [place] [address] 7t [place] [address] Care Team Providers Care Director Of Event Management Name Role Phone Toyin Pollard Primary Care Provider Satish Brennan MD Unavailable Jacob Morrow Unavailable [phone] Nicolasa Escobar MD Unavailable Shen Davis MD Unavailable [phone] Encounter Details Date Type Department Care Team (Late st Contact Info) Description 07/13/2022 Orders Only [facility] MEDICINE 230 [place] [address] Toyin Pollard FNP 505 [place] [address] Social History Tobacco Use Types Packs/Day Years [...] Description 05/21/2024 2:30 PM EST Clinical Support [facility] MED & PEDS 505 [place], [place] [phone] 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, RN 505 [place], [place] [phone] documented as of this encounter Visit Diagnoses Not on filedocumented in this encounter Care Teams Director Of Event Management Relationship Specialty Start Date End Date Toyin Pollard FNP 230 [place] [address] PCP - General Family Medicine 01/11/21 Satish Brennan MD [address] [place] [address] Endocrinology 02/22/24 Jacob Morrow 5 [place] [address] Pulmonary Disease 02/22/24 Nicolasa Escobar MD [address] [place] [address] Neurology 02/22/24 Shen Davis MD [address] [place] [address] Nephrology 02/22/24 Ellyn Connolly Flag MakerCommercial Glazier 08/17/23 [facility] 01/11/24 01/21/24 [facility] 01/11/24 documented as of this encounter
--- OUTSIDE RECORDS SUMMARY | 2024-05-01 19:07 | XMS_ITS | Encounter Summary ---
Author Organization [employer] Address [address] [facility] 7t [place] [address] Care Team Providers Care Autocutter Name Role Phone Toyin Pollard Primary Care Provider Satish Brennan MD Unavailable [phone] Jacob Morrow Unavailable [phone] Nicolasa Escobar MD Unavailable Shen Davis MD Unavailable [phone] Reason for Visit * Reason Onset Date Comments Hospital Follow-up 11/06/2023 Encounter Details Date Type Department Care Team (Late st Contact Info) Description 11/06/[address] [facility] MEDICINE 230 [place] [address] Toyin Pollard FNP 505 [place], [place] [phone] Hospital Follow-up Social History Tobacco Use Types [...] encounter Miscellaneous Notes * Telephone Encounter - Pinky Wallis - 11/06/2023 9:21 AM EDT Tc from pt requesting a F appt. Hospital: [facility] Date of admission: 10/25 Discharge date: 11/03 Diagnosed: Ankle injury documented in this encounter Plan of Treatment Upcoming Encounters Date Type Department Care Team (Late st Contact Info) Description 05/21/2024 2:30 PM EST Clinical Support [facility] 505 [place] [address] 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, MINA 505 [place] [address] documented as of this encounter Goals Goal [...] documented as of this encounter Care Teams Autocutter Relationship Specialty Start Date End Date Toyin Pollard FNP 230 [place] [address] PCP - General Family Medicine 01/11/21 Satish Brennan MD [address] [place] [address] Endocrinology 02/22/24 Jacob Morrow 5 [place] [address] Pulmonary Disease 02/22/24 Nicolasa Escobar MD [address] [place] [address] Neurology 02/22/24 Shen Davis MD [address] [place] [address] Nephrology 02/22/24 Ellyn Connolly Care Process ManagerRadiologic Technology Instructor 08/17/23 [facility] 01/11/24 01/21/24 [facility] 01/11/24 documented as of this encounter
--- OUTSIDE RECORDS SUMMARY | 2024-05-01 19:07 | XMS_ITS | Encounter Summary ---
Author Organization [employer] Address [address] [facility] 7t [place] [address] Care Team Providers Care Alliance Manager Name Role Phone Toyin Pollard Primary Care Provider Satish Brennan MD Unavailable [phone] Jacob Morrow Unavailable [phone] Nicolasa Escobar MD Unavailable Shen Davis MD Unavailable [phone] Encounter Details Date Type Department Care Team (Late st Contact Info) Description 03/29/2023 Orders Only [facility] PEDS [address] [place], [place] [phone] Maritza Daniel FNP [address] [place], [place] [phone] Social History Tobacco Use Types Packs/Day Years [...] Description 05/21/2024 2:30 PM EST Clinical Support [facility] 505 [place] [address] 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, MINA 505 [place] [address] documented as of this encounter Goals Goal [...] documented as of this encounter Care Teams Alliance Manager Relationship Specialty Start Date End Date Toyin Pollard FNP 230 [place] [address] PCP - General Family Medicine 01/11/21 Satish Brennan MD [address] [address] Endocrinology 02/22/24 Jacob Morrow 5 [place] [address] Pulmonary Disease 02/22/24 Nicolasa Escobar MD [address] [facility] [address] [phone] Neurology 02/22/24 Shen Davis MD [address] [facility] [address] [place], [place] [address] Nephrology 02/22/24 Ellyn Connolly Loss Prevention DetectiveMachine Room Operator 08/17/23 [facility] 01/11/24 01/21/24 [facility] 01/11/24 documented as of this encounter
--- OUTSIDE RECORDS SUMMARY | 2024-05-01 19:07 | XMS_ITS | Encounter Summary ---
Author Organization [employer] Address 75 [facility] 7t [place] [address] Care Team Providers Care Athletics Director Name Role Phone Toyin Pollard Primary Care Provider Satish Brennan MD Unavailable [phone] Jacob Morrow Unavailable [phone] Nicolasa Escobar MD Unavailable Shen Davis MD Unavailable [phone] Reason for Visit * Reason Onset Date Comments Nurse Triage 03/08/2023 Encounter Details Date Type Department Care Team (Late st Contact Info) Description 03/08/2023 Telephone [facility] MEDIC[facility] 230 [place], [place] [phone] Toyin Pollard FNP 505 [place], [place] [phone] Nurse Triage Social History Tobacco Use Types Packs/Day Years Used Date Smoking Tobacco: Former Cigarettes Smokeless Tobacco: Never Alcohol Use Standard Drinks/Week Comments Never 0 (1 standard drink = 0.6 oz pur e alcohol) Depression Answer Date Recorded Patient Health Questionnaire-9 Score 0 09/28/2022 Housing Stability Answer Date Recorded What is your housing situation today? I have cesarseble andersen 01/02/[address] you [...] * Telephone Encounter - Pinky Wallis - 03/08/2023 2:14 PM EST Symptom: Urination Pain Outcome: Schedule an urgent appointment (within 1 hour) or talk to a nurse or provider soon Reason: Severe pain now The caller accepted this outcome documented in this encounter Plan of Treatment Upcoming Encounters Date Type Department Care Team ([facility] st Contact Info) Description 05/21/2024 2:30 PM EST Clinical Support [facility] P[facility]S 505 [place] [address] 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, MINA 505 [place] [address] documented as of this encounter Goals Goal [...] documented as of this encounter Care Teams Athletics Director Relationship Specialty Start Date End Date Toyin Pollard FNP 230 [place] [address] PCP - General Family Medicine 01/11/21 Satish Brennan MD [address] [place] [address] Endocrinology 02/22/24 Jacob Morrow 5 [place] [address] Pulmonary Disease 02/22/24 Nicolasa Escobar MD [address] [place] [address] Dr [address] [place] [address] Neurology 02/22/24 Shen Davis MD [address] [place] [address] Nephrology 02/22/24 Ellyn Connolly Lacquer Pin Press OperatorManager Sales Support 08/17/23 [facility] 01/11/24 01/21/24 [facility] 01/11/24 documented as of this encounter
--- OUTSIDE RECORDS SUMMARY | 2024-05-01 19:07 | XMS_ITS | Encounter Summary ---
Author Organization [employer] Address [address] [facility] 7t [place] [address] Care Team Providers Care Finished Cloth Examiner Name Role Phone Toyin Pollard Primary Care Provider Satish Brennan MD Unavailable Jacob Morrow Unavailable [phone] Nicolasa Escobar MD Unavailable Shen Davis MD Unavailable [phone] Reason for Visit * Reason Onset Date Comments Referral 01/08/2024 Encounter Details Date Type Department Care Team ([facility] st Contact Info) Description 01/08/2024 Telephone [facility] MEDICINE 230 [place] [address] Toyin Pollard FNP 505 [place], [place] [phone] Referral Social History Tobacco Use Types Packs/Day Years [...] encounter Miscellaneous Notes * Telephone Encounter - Adina Conti RN - 01/09/2024 2:15 PM EDT FYI * Telephone Encounter - Christina Paul - 01/08/2024 2:01 PM EDT Tc from [facility] from [facility] . [facility] indicates they will process the referral for mpt therapy. documented in this encounter Plan of Treatment Upcoming Encounters Date Type Department Care Team (Late st Contact Info) Description 05/21/2024 2:30 PM EST Clinical Support [facility] MED [facility] PEDS 505 [place] [address] 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, MINA 505 [place] [address] documented as of this encounter Goals Goal Patient Goal Type Associated Problems Recent Progress Patient-Stated? Author Hemoglobin A1c < 7 Result Component 6.4(08/02/2023 4:30 PM EDT) No Michelle Alegria, Joe documented as of this encounter Visit Diagnoses Not on filedocumented in this encounter Additional Health Concerns Assessment Noted Time PHQ-9 Depression Total Score: 13 024 4:37 PM EDT documented as of this encounter Care Teams Finished Cloth Examiner Relationship Specialty Start Date End Date Toyin Pollard FNP 230 [place] [address] PCP - General Family Medicine 01/11/21 Satish Brennan MD [address] [place] [address] Endocrinology 02/22/24 Jacob Morrow 5 [place] [address] Pulmonary Disease 02/22/24 Nicolasa Escobar MD [address] [place] [address] 140 [place] [address] Neurology 02/22/24 Shen Davis MD [address] [place] [address] Nephrology 02/22/24 Ellyn Connolly Spring MakerInteractive Multimedia Designer 08/17/23 [facility] 01/11/24 01/21/24 [facility] 01/11/24 documented as of this encounter
--- OUTSIDE RECORDS SUMMARY | 2024-05-01 19:07 | XMS_ITS | Encounter Summary ---
Author Organization [employer] Address [address] [facility] 7t [place] [address] Care Team Providers Care Livestock Yard Attendant Name Role Phone Toyin Pollard Primary Care Provider Satish Brennan MD Unavailable Jacob Morrow Unavailable [phone] Nicolasa Escobar MD Unavailable Shen aDvis MD Unavailable [phone] Reason for Visit * Reason Onset Date Comments ER Follow-up 06/06/2023 Encounter Details Date Type Department Care Team (Late st Contact Info) Description 06/06/2023 Telephone [facility] [address] [place] [address] Toyin Pollard FNP [address] [place], [place] [id number] ER Follow-up Social History Tobacco Use Types Packs/Day [...] encounter Miscellaneous Notes * Telephone Encounter - Wing Cassandra RN - 06/07/2023 3:25 PM EDT Tc to pt regarding ED visit on 06/04. Pt states she is feeling okay and is on antibiotics and steroids provided by ED. Pt requested appt at [place] and scheduled pt with Dr. Franko Monet for 06/11 at 3:45 pm. Pt verbalized understanding and agreement with plan. * Telephone Encounter - Joseph Lopez - 06/06/2023 3:51 PM EDT Patient calling to report ED visit on : Date: 06/04 Hospital: [facility] [place] Seen for: COPD and bronchitis Patient advised will forward to team nurse for follow up documented in this encounter Plan of Treatment Upcoming Encounters Date Type Department Care Team ([facility] st Contact Info) Description 05/21/2024 2:30 PM EST Clinical Support [facility] & [facility]S [address] [place] [address] 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 RN [address] [place] [address] documented as of this encounter Goals Goal Patient Goal Type Associated Problems Recent Progress Patient-Stated? Author Hemoglobin A1c < 7 Result Component 6.4(08/02/2023 4:30 PM EDT) Michelle Rodarte, Joe documented as of this encounter Visit Diagnoses Not on filedocumented in this encounter Additional Health Concerns Assessment Noted Time PHQ-9 Depression Total Score: 0 09/29/19 23 2:03 PM EDT documented as of this encounter Care Teams Livestock Yard Attendant Relationship Specialty Start Date End Date Toyin Pollard FNP [address] [place] [address] PCP - General Family Medicine 01/11/21 Satish Brennan MD [address] [place] [address] Endocrinology 02/22/24 Jacob Morrow 5 [place] [address] Pulmonary Disease 02/22/24 Nicolasa Escobar MD [address] [place] [address] Dr Kameron [address] [place] [address] Neurology 02/22/24 Shen Davis MD [address] [place] [address] Nephrology 02/22/24 Ellyn Connolly Assistant WinemakerDifferential Tester 08/17/23 [facility] 01/11/24 01/21/24 [facility] 01/11/24 documented as of this encounter
--- OUTSIDE RECORDS SUMMARY | 2024-05-01 19:07 | XMS_ITS | Encounter Summary ---
Author Organization [employer] Address [address] [facility] 7t [place] [address] Care Team Providers Care Green Chain Puller Name Role Phone Toyin Pollard Primary Care Provider Satish Brennan MD Unavailable Jacob Morrow Unavailable [phone] Nicolasa Escobar MD Unavailable Shen Davis MD Unavailable [phone] Reason for Visit * Reason Onset Date Comments Durable Medical Equipment 07/06/2022 Encounter Details Date Type Department Care Team (Late st Contact Info) Description 07/06/2022 Telephone [facility] [address] [place] [address] Toyin Pollard FNP [address] [place], [place] [phone] Durable Medical Equipment Social History Tobacco Use [...] encounter Miscellaneous Notes * Telephone Encounter - Tawanna Paul - 07/06/2022 12:09 PM EDT Script for shower chair generated for signature. * Telephone Encounter - Hemalatha Minor - 07/06/2022 10:16 AM EDT Tc from pt requesting a shower chair . documented in this encounter Plan of Treatment Upcoming Encounters Date Type Department Care Team (Late st Contact Info) Description 05/21/2024 2:30 PM EST Clinical Support [facility] MED & PEDS [address] [place] [address] 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, RN [address] [place] [address] documented as of this encounter Visit Diagnoses Not on filedocumented in this encounter Care Teams Green Chain Puller Relationship Specialty Start Date End Date Toyin Pollard FNP [address] [place] [address] PCP - General Family Medicine 01/11/21 Satish Brennan MD [address] [place] [address] Endocrinology 02/22/24 Jacob Morrow 5 [place] [address] Pulmonary Disease 02/22/24 Nicolasa Escobar MD [address] [place] [address] Dr Melo [address] [place] [address] Neurology 02/22/24 Shen Davis MD [address] [place] [address] Nephrology 02/22/[address] Of [address] ForemanMate First 08/17/23 [facility] 01/11/24 01/21/24 [facility] 01/11/24 documented as of this encounter
--- OUTSIDE RECORDS SUMMARY | 2024-05-01 19:07 | XMS_ITS | Encounter Summary ---
Author Organization [employer] Address 75 [facility] 7t [place] [address] Care Team Providers Care Floor Tech Name Role Phone Toyin Pollard Primary Care Provider Satish Brennan MD Unavailable [phone] Jacob oMrrow Unavailable [phone] Nicolasa Escobar MD Unavailable [phone] Shen Davis MD Unavailable [phone] Reason for Visit * Reason Onset Date Comments Referral 03/09/2022 Encounter Details Date Type Department Care Team ([facility] st Contact Info) Description 03/09/2022 Telephone [facility] MEDICINE [address] [place] [address] Toyin Pollard FNP [address] [place], [place] [phone] Referral Social History Tobacco Use Types Packs/Day Years Used Date Smoking Tobacco: Never Assessed Depression Answer Date Recorded Patient Health Questionnaire-9 [...] Orientation Straight 01/17/2022 10 :36 AM EDT COVID-19 Exposure Response Date Recorded In the last 10 days, have yo u been in contact with someone who was confirmed or suspected to have Coronavirus/COVID-19? No / Unsure 07/20/2022 1:40 PM EDT documented as of this encounter Miscellaneous Notes * Telephone Encounter - Carmela Mcgovern RN - 03/24/2022 8:46 AM EST TC to pt, per PCP note. Advised that PCP wont be increasing her Tramadol medication as pt had requested. Asked pt about her weight loss clinic status. Pt stated Wt loss clinic told her she needs to lose 100# in a year, she's currently down 15#. They call her weekly on the phone for her weight. Pt stated her pain is her gallstones not her weight. Again reviewed the conversation that was had with patient & PCP back in November 05, 2021 - regarding goals and her opioid use. * Telephone Encounter - Yadiel Cartwright - 03/09/2022 11:35 AM EST Tc from [place] ( [facility] ) requesting a new referral for nutrition, pt was referred back in 2019. Please contact at [phone] documented in this encounter Plan of Treatment Upcoming Encounters Date Type Department Care Team (Late st Contact Info) Description 05/21/2024 2:30 PM EST Clinical Support [facility] & PED[facility] [address] [place] [address] 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, MINA [address] [place] [address] documented as of this encounter Goals Goal Patient Goal Type Associated Problems Recent Progress Patient-Stated? Author Hemoglobin A1c < 7 Result Component 6.4(08/02/2023 4:30 PM EDT) Michelle Rodarte, Joe documented as of this encounter Visit Diagnoses Diagnosis Pain Generalized pain documented in this encounter Care Teams Floor Tech Relationship Specialty Start Date End Date Toyin Pollard FNP [address] [place] [address] PCP - General Family Medicine 01/11/21 Satish Brennan MD [address] [place] [address] Endocrinology 02/22/24 Jacob Morrow 5 [place] [address] Pulmonary Disease 02/22/24 Nicolasa Escobar MD [address] [place] [address] Dr Kameron 140 [place] [address] Neurology 02/22/24 Shen Davis MD [address] [place] [address] Nephrology 02/22/24 Ellyn Connolly Plumbing MechanicHead Refrigeration Engineer 08/17/23 [facility] 01/11/24 01/21/24 [facility] 01/11/24 documented as of this encounter
--- OUTSIDE RECORDS SUMMARY | 2024-05-01 19:07 | XMS_ITS | Encounter Summary ---
Author Organization [employer] Address [address] [facility] 7t [place] [address] Care Team Providers Care Vice President Of Compliance Name Role Phone Toyin Pollard LOUIE Primary Care Provider Satish Brennan MD Unavailable Jacob Morrow Unavailable [phone] Nicolasa Escobar MD Unavailable Shen Davis MD Unavailable [phone] Encounter Details Date Type Department Care Team (Late st Contact Info) Description 03/15/2022 Orders Only [facility] [address] [place] [address] Ellyn Chery LPN Social History Tobacco Use [...] EST Clinical Support [facility] [address] [place] [address] 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, RN 505 [place] [address] documented as of this encounter Visit Diagnoses Not on filedocumented in this encounter Care Teams Vice President Of Compliance Relationship Specialty Start Date End Date Toyin Pollard FNP [address] [place] [address] PCP - General Family Medicine 01/11/21 Satish Brennan MD [address] [place] [address] Endocrinology 02/22/24 Jacob Morrow 5 [place] [address] Pulmonary Disease 02/22/24 Nicolasa Escobar MD [address] [place] [address] Dr [facility] [address] [place] [address] Neurology 02/22/24 Shen Davis MD [address] [place] [address] Nephrology 02/22/24 Ellyn Connolly Well Service Pump Equipment OperatorOutside Machinist 08/17/23 [facility] 01/11/24 01/21/24 [facility] 01/11/24 documented as of this encounter
--- OUTSIDE RECORDS SUMMARY | 2024-05-01 19:07 | XMS_ITS | Encounter Summary ---
Author Organization [employer] Address [address] [place] [address] 7t [place] [address] Care Team Providers Care Airport Traffic Controller Name Role Phone Toyin Pollard Primary Care Provider Satish Brennan MD Unavailable [phone] Jacob Morrow Unavailable [phone] Nicolasa Escobar MD Unavailable Shen Davis MD Unavailable [phone] Encounter Details Date Type Department Care Team (Late st Contact Info) Description 04/26/2022 Abstract [facility] MEDICINE [address] [place], [place] [phone] Toyin Pollard FNP [address] [place] [address] Social History Tobacco Use Types Packs/Day Years [...] Description 05/21/2024 2:30 PM EST Clinical Support [facility] MED & PEDS [address] [place], [place] [phone] 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, RN [address] [place], [place] [phone] documented as of this encounter Visit Diagnoses Not on filedocumented in this encounter Care Teams Airport Traffic Controller Relationship Specialty Start Date End Date Toyin Pollard FNP [address] [place] [address] PCP - General Family Medicine 01/11/21 Satish Brennan MD [address] [place] [address] Endocrinology 02/22/24 Jacob Morrow 5 [place] [address] Pulmonary Disease 02/22/24 Nicolasa Escobar MD [address] [place] [address] Neurology 02/22/24 Shen Davis MD [address] [place] [address] Nephrology 02/22/24 Ellyn Connolly Commodities Requirements AnalystCar Lubricator 08/17/23 [facility] 01/11/24 01/21/24 [facility] 01/11/24 documented as of this encounter
--- OUTSIDE RECORDS SUMMARY | 2024-05-01 19:07 | XMS_ITS | Encounter Summary ---
Author Organization [employer] Address [address] [place] [address] 7t [place] [address] Care Team Providers Care Tax Services Specialist Name Role Phone JuddToyin barry LOUIE Primary Care Provider Satish Brennan MD Unavailable Jacob Morrow Unavailable [phone] Nicolasa Escobar MD Unavailable Shen Davis MD Unavailable [phone] Encounter Details Date Type Department Care Team (Late st Contact Info) Description 09/12/2022 Orders Only [facility] MEDICINE [address] [place] [address] Patrica Grimaldo LPN Social History Tobacco Use Types Packs/Day [...] Description 05/21/2024 2:30 PM EST Clinical Support [facility] MED & PEDS [address] [place] [address] 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, RN [address] [place] [address] documented as of this encounter Visit Diagnoses Not on filedocumented in this encounter Care Teams Tax Services Specialist Relationship Specialty Start Date End Date Phalen, Toyin, SWAMPER [address] [place] [address] PCP - General Family Medicine 01/11/21 Satish Brennan MD [address] [place] [address] Endocrinology 02/22/24 Jacob Morrow [address] [facility] [place] [address] Pulmonary Disease 02/22/24 Nicolasa Escobar MD [address] [place] [address] [address] Neurology 02/22/24 Shen Davis MD [address] [place] [address] Nephrology 02/22/24 Ellyn Connolly Hadoop AdminEms Instructor 08/17/23 [facility] 01/11/24 01/21/24 [facility] 01/11/24 documented as of this encounter
--- OUTSIDE RECORDS SUMMARY | 2024-05-01 19:07 | XMS_ITS | Encounter Summary ---
Author Organization [employer] Address [address] [facility] 7t [place] [address] Care Team Providers Care Chef Under Name Role Phone Toyin Pollard PRECISION INSTRUMENT MAKER Primary Care Provider [phone] Satish Brennan MD Unavailable [phone] Jacob Morrow Unavailable [phone] Nicolasa Escobar MD Unavailable Shen Davis MD Unavailable [phone] Encounter Details Date Type Department Care Team ([facility] Contact Info) Description 07/21/2022 Orders Only [facility] MED & PEDS [address] [place] [address] Ellyn Chery LPN Social History Tobacco Use [...] PM EDT documented as of this encounter Plan of Treatment Upcoming Encounters Date Type Department Care Team ([facility] Contact Info) Description 05/21/2024 2:30 PM EST Clinical Support [facility] MED & PEDS [address] [place] [address] 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, MINA [address] [place] [address] documented as of this encounter Visit Diagnoses Not on filedocumented in this encounter Care Teams Chef Under Relationship Specialty Start Date End Date Toyin Pollard FNP [address] [place] [address] PCP - General Family Medicine 01/11/21 Satish Brennan MD [address] [place] [address] Endocrinology 02/22/24 Jacob Morrow 5 [place] [address] Pulmonary Disease 02/22/24 Nicolasa Escobar MD [address] [place] [address] Dr Melo [address] [place] [address] Neurology 02/22/24 Shen Davis MD [address] [place] [address] Nephrology 02/22/24 Ellyn Connolly Infectious Disease PhysicianOracle Webcenter Consultant 08/17/23 [facility] 01/11/24 01/21/24 [facility] 01/11/24 documented as of this encounter
--- OUTSIDE RECORDS SUMMARY | 2024-05-01 19:07 | XMS_ITS | Data Portability ---
Author Organization [place] [facility] Address [address] [place] [id number] Assessment No assessment recorded. Plan of Treatment Reminders Order Date Submit Date Provider Last Modified By Organization Details Last Modified Time Details Appointments None recorded . Lab thyroid panel, serum 2016 017 [facility], [id number] [place], [address], 7 12:52:40 lipid panel, serum 2016 017 [facility], [address] [place], [address], 7 12:52:40 CMP, serum or plasma 2016 017 [facility], [address] [place], [address], 7 12:52:41 CBC w/ auto diff 2016 017 [facility], [id number], [address], 7 12:52:41 urinalys is, complete 2016 017 [facility], [id number], [address], 7 12:52:42 RPR (rapid plasma reagin), serum 2016 017 [facility], [address] [place] [address], [address], 7 12:52:42 HIV (1+2) Ab, rapid, unspecif ied specimen 2016 017 [facility] In-House Test, For Internal Use Only, Do Not Delete/merge, [address] 7 15:14:46 Referral gynecolo gist referral 2016 017 [email or web address] Not available 7 13:35:43 cardiolo gist referral 2016 017 [email or web address] Not available 7 11:17:59 Procedures None recorded . Surgeries None recorded . Imaging None recorded . Medication Orders clonidin e HCl 0.2 mg tablet [address] [facility], [address] [place], [address], 7 13:07:06 clonidin e HCl 0.1 mg tablet [address] [facility] - [facility], [address] [place], [address], 7 13:07:06 atenolol 50 mg tablet 2016 017 INTERFACE [facility] - [facility], [address] [place], [address], 7 13:10:09 cycloben zaprine 10 mg tablet 2016 017 INTERFACE [facility], [address], [place], [address], 7 17:10:12 tramadol 50 mg tablet 2016 [facility], [address] [place], [address], 7 07:59:06 levothyr oxine 75 mcg tablet 2016 017 INTERFACE [facility] - [place], [address] [place], [address], 13:10:09 Patient TargetsNo targets recorded. 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 Referral for Hy pothyroidism Referring Physician: Andrés Phan, Internal Medicine, Encounter Date: 04/20/2016 Results Created Date Observation Date Name Description Value Unit Range Abnormal Flag Note LastModifiedBy Organization Detail LastModifiedTime 05/24/19 17 05/24/2016 thyro id panel , serum T3 uptake 34 % 22-35 normal Not Available [facility] [address] [place], [address], 05/24/2016 12:52:40 05/24/19 17 05/24/2016 thyro id panel , serum T4 (thyroxine), total 5.4 mcg/d L 4.5-12 .0 normal Not Available [facility] [address] [place], [address], 05/24/2016 12:52:40 05/24/19 17 05/24/2016 thyro id panel , serum free T4 index (T7) 1.8 1.4-3. 8 normal Not Available [facility] [address] [place], [address], 05/24/2016 12:52:40 05/24/19 17 05/24/2016 thyro id panel , serum TSH 16.59 mIU/L high Refer ence Range > or = 20 Years 0.40- 4.50 Pregn ting Range s First trime ster 0.26- 2.66 Secon d trime ster 0.55- 2.73 Third trime ster 0.43- 2.91 Not Available [facility] [address] [place], [address], 05/24/2016 12:52:40 05/24/19 17 05/24/2016 lipid panel , serum cholesterol, total 201 mg/dL 125-20 0 high Not Available [facility] [address] [place], [address], 05/24/2016 12:52:40 05/24/19 17 05/24/2016 lipid panel , serum HDL cholesterol 47 mg/dL > or = 46 normal Not Available [facility] [address] [place], [address], 05/24/2016 12:52:40 05/24/19 17 05/24/2016 lipid panel , serum triglyceride s 173 mg/dL <150 high Not Available [facility] [address] [place], [address], 05/24/2016 12:52:40 05/24/19 17 05/24/2016 lipid panel , serum LDL-choleste rol 119 mg/dL _(romana c) <130 normal Phil able range <100 mg/dL for patie nts with CHD or diabe adam and <70 mg/dL for diabe tic patie nts with known heart disea se. Not Available [facility] [address] [place], [address], 05/24/2016 12:52:40 05/24/19 17 05/24/2016 lipid panel , serum chol/HDLC ratio 4.3 (calc ) < or = 5.0 normal Not Available [facility] [address] [place], [address], 05/24/2016 12:52:40 05/24/19 17 05/24/2016 lipid panel , serum non HDL cholesterol 154 mg/dL _(romana c) normal Targe t for non-H DL blaine stero l is 30 mg/dL highe r than LDL blaine stero l targe t. Not Available [facility] [address] [place], [address], 05/24/2016 12:52:40 05/24/19 17 05/24/2016 CMP, serum or plasm a glucose 100 mg/dL 65-99 high Fasti ng refer ence inter shayy Not Available [address], [address], 05/24/2016 12:52:41 05/24/19 17 05/24/2016 CMP, serum or plasm a urea nitrogen (BUN) 12 mg/dL 7-25 normal Not Available [facility] [address] [place] [address] [place], [address], 05/24/2016 12:52:41 05/24/19 17 05/24/2016 CMP, serum or plasm a creatinine 0.74 mg/dL 0.50-1 .10 normal Not Available [address], [address], 05/24/2016 12:52:41 05/24/19 17 05/24/2016 CMP, serum or plasm a eGFR non-afr. indonesian 98 mL/mi n/1.7 3m2 > or = 60 normal Not Available [facility] [address] [place] [address], [address], 05/24/2016 12:52:41 05/24/19 17 05/24/2016 CMP, serum or plasm a eGFR 113 mL/mi n/1.7 3m2 > or = 60 normal Not Available [address] [place], [address], 05/24/2016 12:52:41 05/24/19 17 05/24/2016 CMP, serum or plasm a BUN/creatini ne ratio NOT APPLIC ABLE (calc ) 6-22 Not Available [address] [place], [address], 05/24/2016 12:52:41 05/24/19 17 05/24/2016 CMP, serum or plasm a sodium 136 mmol/ L 135-14 6 normal Not Available [address] [place], [address], 05/24/2016 12:52:41 05/24/19 17 05/24/2016 CMP, serum or plasm a potassium 4.4 mmol/ L 3.5-5. 3 normal Not Available [address] [place], [address], 05/24/2016 12:52:41 05/24/19 17 05/24/2016 CMP, serum or plasm a chloride 101 mmol/ L 98-110 normal Not Available [address] [place], [address], 05/24/2016 12:52:41 05/24/19 17 05/24/2016 CMP, serum or plasm a carbon dioxide 22 mmol/ L 20-31 normal Not Available [address] [place], [address], 05/24/2016 12:52:41 05/24/19 17 05/24/2016 CMP, serum or plasm a calcium 9.3 mg/dL 8.6-10 .2 normal Not Available [address] [place], [address], 05/24/2016 12:52:41 05/24/19 17 05/24/2016 CMP, serum or plasm a protein, total 7.0 g/dL 6.1-8. 1 normal Not Available [facility] [employer] [address] [place], [address], 05/24/2016 12:52:41 05/24/19 17 05/24/2016 CMP, serum or plasm a albumin 4.0 g/dL 3.6-5. 1 normal Not Available [facility] [employer] [address], [address], 05/24/2016 12:52:41 05/24/19 17 05/24/2016 CMP, serum or plasm a globulin 3.0 g/dL_ (calc ) 1.9-3. 7 normal Not Available [facility] [address], [address], 05/24/2016 12:52:41 05/24/19 17 05/24/2016 CMP, serum or plasm a albumin/glob ulin ratio 1.3 (calc ) 1.0-2. 5 normal Not Available [facility] [employer] [address], [address], 05/24/2016 12:52:41 05/24/19 17 05/24/2016 CMP, serum or plasm a bilirubin, total 0.3 mg/dL 0.2-1. 2 normal Not Available [facility] [address], [address], 05/24/2016 12:52:41 05/24/19 17 05/24/2016 CMP, serum or plasm a alkaline phosphatase 55 U/L 33-115 normal Not Available [facility] [employer] [address], [address], 05/24/2016 12:52:41 05/24/19 17 05/24/2016 CMP, serum or plasm a AST 15 U/L 10-35 normal Not Available [facility] [employer] [address] [place], [address], 05/24/2016 12:52:41 05/24/19 17 05/24/2016 CMP, serum or plasm a ALT 13 U/L 6-29 normal Not Available [facility] [address] [place] [address] [place], [address], 05/24/2016 12:52:41 05/24/19 17 05/24/2016 CBC w/ auto diff white blood cell count 9.1 thous and/u L 3.8-10 .8 normal Not Available [facility] [address] [place] [address] [place], [address], 05/24/2016 12:52:41 05/24/19 17 05/24/2016 CBC w/ auto diff red blood cell count 4.78 radha on/uL 3.80-5 .10 normal Not Available [facility] [address] [place] [address] [place], [address], 05/24/2016 12:52:41 05/24/19 17 05/24/2016 CBC w/ auto diff hemoglobin 13.8 g/dL 11.7-1 5.5 normal Not Available [facility] [address] [place] [address] [place], [address], 05/24/2016 12:52:41 05/24/19 17 05/24/2016 CBC w/ auto diff hematocrit 42.7 % 35.0-4 5.0 normal Not Available [facility] [address] [place] [address] [place], [address], 05/24/2016 12:52:41 05/24/19 17 05/24/2016 CBC w/ auto diff MCV 89.5 fL 80.0-1 00.0 normal Not Available [facility] [address] [place] [address] [place], [address], 05/24/2016 12:52:41 05/24/19 17 05/24/2016 CBC w/ auto diff MCH 28.9 pg 27.0-3 3.0 normal Not Available [facility] [address] [place] [address], [address], 05/24/2016 12:52:41 05/24/19 17 05/24/2016 CBC w/ auto diff MCHC 32.3 g/dL 32.0-3 6.0 normal Not Available [address], [address], 05/24/2016 12:52:41 05/24/19 17 05/24/2016 CBC w/ auto diff RDW 13.7 % 11.0-1 5.0 normal Not Available [address], [address], 05/24/2016 12:52:41 05/24/19 17 05/24/2016 CBC w/ auto diff platelet count 305 thous and/u L 140-40 0 normal Not Available [facility] [address] [place] [address], [address], 05/24/2016 12:52:41 05/24/19 17 05/24/2016 CBC w/ auto diff MPV 10.6 fL 7.5-12 .5 normal Not Available [address], [address], 05/24/2016 12:52:41 05/24/19 17 05/24/2016 CBC w/ auto diff absolute neutrophils 5369 cells /uL 1500-7 800 normal Not Available [address], [address], 05/24/2016 12:52:41 05/24/19 17 05/24/2016 CBC w/ auto diff absolute lymphocytes 2739 cells /uL 850-39 00 normal Not Available [address] [place], [address], 05/24/2016 12:52:41 05/24/19 17 05/24/2016 CBC w/ auto diff absolute monocytes 510 cells /uL 200-95 0 normal Not Available [facility] [address] [place] [address] [place], [address], 05/24/2016 12:52:41 05/24/19 17 05/24/2016 CBC w/ auto diff absolute eosinophils 400 cells /uL 15-500 normal Not Available [facility] [address] [place] [address], [address], 05/24/2016 12:52:41 05/24/19 17 05/24/2016 CBC w/ auto diff absolute basophils 82 cells /uL 0-200 normal Not Available [facility] [address] [place] [address], [address], 05/24/2016 12:52:41 05/24/19 17 05/24/2016 CBC w/ auto diff neutrophils 59.0 % normal Not Available [facility] [address] [place] [address], [address], 05/24/2016 12:52:41 05/24/19 17 05/24/2016 CBC w/ auto diff lymphocytes 30.1 % normal Not Available [facility] [address] [place] [address], [address], 05/24/2016 12:52:41 05/24/19 17 05/24/2016 CBC w/ auto diff monocytes 5.6 % normal Not Available [facility] [address] [place] [address], [address], 05/24/2016 12:52:41 05/24/19 17 05/24/2016 CBC w/ auto diff eosinophils 4.4 % normal Not Available [facility] [address] [place] [address], [address], 05/24/2016 12:52:41 05/24/19 17 05/24/2016 CBC w/ auto diff basophils 0.9 % normal Not Available [address], [address], 05/24/2016 12:52:41 05/24/19 17 05/24/2016 urina lysis , compl ete color YELLOW yellow normal Not Available [address], [address], 05/24/2016 12:52:42 05/24/1905/24/2016 urina lysis , compl ete appearance CLEAR clear normal Not Available [address], [address], 05/24/2016 12:52:42 05/24/1905/24/2016 urina lysis , compl ete specific gravity 1.020 1.001- 1.035 normal Not Available [address], [address], 05/24/2016 12:52:42 05/24/19 17 05/24/2016 urina lysis , compl ete pH 6.0 5.0-8. 0 normal Not Available [address], [address], 05/24/2016 12:52:42 05/24/1905/24/2016 urina lysis , compl ete glucose NEGATI VE negati ve normal Not Available [address], [address], 05/24/2016 12:52:42 05/24/1905/24/2016 urina lysis , compl ete bilirubin NEGATI VE negati ve normal Not Available [address], [address], 05/24/2016 12:52:42 05/24/19 17 05/24/2016 urina lysis , compl ete ketones NEGATI VE negati ve normal Not Available [address], [address], 05/24/2016 12:52:42 05/24/19 17 05/24/2016 urina lysis , compl ete occult blood 2+ negati ve abnormal Not Available [address], [address], 05/24/2016 12:52:42 05/24/19 17 05/24/2016 urina lysis , compl ete protein NEGATI VE negati ve normal Not Available [address], [address], 05/24/2016 12:52:42 05/24/19 17 05/24/2016 urina lysis , compl ete nitrite NEGATI VE negati ve normal Not Available [address], [address], 05/24/2016 12:52:42 05/24/19 17 05/24/2016 urina lysis , compl ete leukocyte esterase NEGATI VE negati ve normal Not Available [address], [address], 05/24/2016 12:52:42 05/24/19 17 05/24/2016 urina lysis , compl ete WBC 0-5 /hpf < or = 5 normal Not Available [address], [address], 05/24/2016 12:52:42 05/24/19 17 05/24/2016 urina lysis , compl ete RBC 0-2 /hpf < or = 2 normal Not Available [address] [place], [address], 05/24/2016 12:52:42 05/24/19 17 05/24/2016 urina lysis , compl ete squamous epithelial cells 0-5 /hpf < or = 5 Not Available [address], [address], 05/24/2016 12:52:42 05/24/19 17 05/24/2016 urina lysis , compl ete bacteria NONE SEEN /hpf none seen normal Not Available [address], [address], 05/24/2016 12:52:42 05/24/19 17 05/24/2016 urina lysis , compl ete hyaline cast NONE SEEN /lpf none seen normal Not Available [address], [address], 05/24/2016 12:52:42 05/24/19 17 05/24/2016 RPR (rapi d plasm a reagi n), serum RPR (monitor) w/refl titer REACTI VE non-re active abnormal The RPR is a non-t repon emal- speci fic test; there fore, a trepo nemal -spec ific confi rmato ry test shoul d be perfo rmed unles s prior syphi lis infec tion has been docum ented for this patie nt. Not Available [address], [address], 05/24/2016 12:52:42 05/24/19 17 05/24/2016 RPR titer RPR titer 1:1 high Not Available [address], [address], 05/24/2016 12:52:43 Result Notes None recorded. Problems Name Problem SNOMED Code Status Onset Date Resolution Date Notes Provider Name and Address Organization Details Recorded Time Adult health examination Active 2013 USER: VIJAYA Not Available [facility] 4 11:20:28 Problem Notes None recorded. Procedures Surgical History Date Name Laterality Status Provider Name and Address Organization Details Recorded Time 7 HEDIS 1125F Pain Present completed [facility] 04/20/2016 10:46:03 7 HEDIS 3077F Systolic > or equal to 140 mm Hg completed [facility] 04/20/2016 10:46:06 7 HEDIS 3080F Diastolic > or equal to 90 mm Hg completed [facility] 04/20/2016 10:46:09 Tubal Ligation completed [facility] 04/20/2016 10:43:38 Hernia Repair completed [facility] 04/20/2016 10:43:44 Imaging Results None recorded. Procedure Notes None recorded. Medical Equipment None Reported. Allergies No known drug allergies Medications Name Sig Start Date Stop Date Status Note LastModified by Organization Details LastModified Time cyclobenz aprine 10 mg tablet TAKE 1 TABLET BY MOUTH ONCE A DAY 2016 active Not Available Not Available Not Avai lable clonidine HCl 0.1 mg tablet Take 1 tablet by oral route. 2016 active given at 11:48am rechecki ng @12:48pm Not Available Not Available Not Available tramadol 50 mg tablet Take 1 tablet every 6 hours by oral route for 30 days. 2016 active Not Available Not Available Not Avai lable levothyro xine 75 mcg tablet Take 1 tablet every day by oral route as directed for 30 days. 2016 active Not Available Not Available Not Avai lable clonidine HCl 0.2 mg tablet Take 1 tablet by oral route as directed . 2016 active given at 10:28am BP will reched at 11:28am Not Available Not Available Not Available atenolol 50 mg tablet Take 1 tablet every day by oral route for 30 days. 2016 active Not Available Not Available Not Avai lable amoxicill in 2013 active X; DAYS: 7; THREE TIMES A DAY Not Available Not Available Not Available Synthroid 04/02/ 2014 02/01 /2017 completed CURRENT; DAYS: 30; ONCE A DAY Not Available Not Available Not Available atenolol 04/20 completed CURRENT; DAYS: 30; TWICE A DAY Not Available Not Available Not Available Flexeril 20 mg 04/20 completed Not Available Not Available Not Available Vitals Date Recorded Body weight Body temperature Body height Body mass index (BMI) Heart rate Respiratory rate Systolic blood pressure Diastolic blood pressure Systolic blood pressure Diastolic blood pressure Systolic blood pressure Diastolic blood pressure Provider Name and Address Organization Details Last Updated DateTime 7 289403. 58 g 98 [degF] 165.1 cm 39.8 kg/m2 97 /min 17 /min 166 mm[Hg] 131 mm[Hg] 147 mm[Hg] 117 mm[Hg] 156 mm[Hg] 117 mm[Hg] Radha Ivory [facility] 7 12:24:38 Date Recorded Pain severity - 0-10 verbal numeric rating [Score] - Reported Provider Name and Address Organization Details Last Updated DateTime 04/20/2016 6 Not Available [facility] 8 06:22:32 Social History Question Answer Notes LastModified by Organizat ion Details LastModified Time Tobacco Smoking Status Current Every Day Smoker Radha Ivory [facility] 04/20/2016 10:37:28 What Is Your Level Of Alcohol Consumption? None [email or web address] Information not available 04/20/2016 What Is Your Level Of Caffeine Consumption? None [email or web address] Information not available 04/20/2016 Are You Currently Employed? No [email or web address] Information not available 04/20/2016 What Type Of Diet Are You Following? CARDIAC [email or web address] Information not available 04/20/2016 Do You Have A Directive To Physicians? Yes [email or web address] Information not available 04/20/2016 Education 8 Information no t available 04/20/2016 What Is Your Occupation? No [email or web address] Information not available 04/20/2016 Have You Been Exposed To Chemicals Or Toxins? No [email or web address] Information not available 04/20/2016 Have You Been Exposed To Heavy Metals? No [email or web address] Information not available 04/20/2016 Are There Any Guns Present In Your Home? No [email or web address] Information not available 04/20/2016 Hard Of Hearing Or Deaf In One Or Both Ears? No [email or web address] Information not available 04/20/2016 High Blood Pressure Yes [email or web address] Information not available 04/20/2016 High Cholesterol Yes [email or web address] Informat ion not available 04/20/2016 HIV Risk Factors No [email or web address] Informat ion not available 04/20/2016 Legally Blind In One Or Both Eyes? No [email or web address] Information no t available 04/20/2016 Live Alone Or With Others? With Others [email or web address] Information not available 04/20/2016 Have You Recently Traveled To Any Other Country In [place]? No [email or web address] Information not available 04/20/2016 If Yes, During This Travel Have You Been Exposed To Mosquitoes Bites? No Information not available 04/20/2016 Have You Experienced Any Two Of The Following Symptoms? No [email or web address] Information not available 04/20/2016 Rash No Information no t available 04/20/2016 Conjuctivitis No [email or web address] Information not available 04/20/2016 Low Grade Fever No [email or web address] Informati on not available 04/20/2016 Muscle Pain No [email or web address] Information n ot available 04/20/2016 Number Of Sexual Partners 1 [email or web address] Information not available 04/20/2016 Have You Ever Been Tested For HIV? Yes 2 Months Ago Negative [email or web address] Information not available 04/20/2016 Have You Had A Fall In The Past (6) Months? No [email or web address] Information not available 04/20/2016 Have You Ever Had A Fall That Resulted In Broken Bone? Yes [email or web address] Information not available 04/20/2016 Do You Have A Problem With Your Balance? Yes [email or web address] Information not available 04/20/2016 Do You Get Dizzy When You Stand Up Quickly? Yes [email or web address] Information not available 04/20/2016 Do You Have A Problem Wth Your Memory? Yes [email or web address] Information not available 04/20/2016 Marital Status Informatio n not available 04/20/2016 How Many Children Do You Have? 7 [email or web address] Information not available 04/20/2016 Do You Use Protection During Sex? No Information not available 04/20/2016 Difficulty Reading? Yes [email or web address] Information not available 04/20/2016 What Is Your Relationship Status? [email or web address] Information not available 04/20/2016 Seat Belts Used Routinely No [email or web address] Information not available 04/20/2016 Are You Sexually Active? Yes [email or web address] Information not available 04/20/2016 Sexual Partner Has HIV? No [email or web address] Information not available 04/20/2016 Number Of Sexual Partners 1 [email or web address] Information not available 04/20/2016 Sexual Partner Uses IV Drugs? No Information not available 04/20/2016 Smoke Alarm In Home No [email or web address] Information not available 04/20/2016 At What Age Did You Start Smoking Tobacco? 14 [email or web address] Information not available 04/20/2016 Are You Passively Exposed To Smoke? Yes [email or web address] Information no t available 04/20/2016 How Much Tobacco Do You Smoke? 0.25 PPD [email or web address] Information not available 04/20/2016 General Stress Level High [email or web address] Information not available 04/20/2016 How Many Years Have You Smoked Tobacco? 32 [email or web address] Information not available 04/20/2016 Difficulty Watching TV? No [email or web address] Information not available 04/20/2016 Have You Used IV Drugs? No [email or web address] Information not available 04/20/2016 Have You Recently (within The Last 12 Weeks, Or During A Current ) Traveled To Or Lived In A [place]-affected Area? No [email or web address] Information not available 04/20/2016 Sex: Unknown Functional Status Question Answer Note LastModified by Organizat ion Details LastModified Time Do you have difficulty walking or climbing stairs? No [email or web address] Information not available 04/20/2016 Difficulty driving at night? No Information no t available 04/20/2016 Do you have difficulty doing errands alone? Yes [email or web address] Information not available 04/20/2016 Are you able to care for yourself? Yes [email or web address] Information not available 04/20/2016 Do you have difficulty dressing or bathing? No [email or web address] Information not available 04/20/2016 What is your exercise level? Occasional [email or web address] Information not available 04/20/2016 Mental Status Question Answer Note LastModified by Organization D etails LastModified Time Do you have difficulty concentrating, remembering or making decisions? Yes Information no t available 04/20/2016 Family History Relationship Description Onset Age of this Age Resolved Age Notes LastModified by Organization Details LastModified Time Maternal Grandfather Schizophreni a [email or web address] Not available 2016 10:36:19 Maternal Grandfather Asthma [email or web address] Not available 03/2016 10:36:56 Maternal Grandfather Heart disease [email or web address] Not available 2016 10:37:12 Maternal Grandmother Asthma [email or web address] Not available 03/2016 10:36:49 Maternal Grandmother Heart disease [email or web address] Not available 2016 10:37:18 Medical History No medical history recorded. Gynecological History Statement/Question Response Abnormal Pap N Date of Last Mammogram Flow Heavy Date of LMP 04/17/2016 Sexually Active? Y Menses Monthly Y STIs/STDs Y Sexual Problems? N Age at Menarche 12 Age at First Child 12 Obstetrics History GPAL:G 13 P 8 0 4 8 Type Value Full Term 8 Spontaneous 4 Living 8 Total 13 Past Encounters Encounter ID Performer Location Encounter Start Date Encounter Closed Date Diagnosis/Indication Diagnosis SNOMED-CT Code Diagnosis ICD10 Code Diagnosis Note [id number] [facility] [address] [place] [address] 06/19/2013 00:00:00 [id number] Stephanie barrow MD [facility] [address] [place] [id number] 4 12/30/2015 08:10:23 12/30/2015 10:00:04 [id number] Stephanie barrow MD [facility] [address] [place] [id number] 4 01/29/2016 07:59:02 01/29/2016 15:25:39 [id number] Stephanie barrow MD [facility] [address] [place] [id number] 4 02/26/2016 07:43:57 02/26/2016 09:05:47 [id number] Tawanna Valera [facility] [address] [place] [id number] 4 03/28/2016 08:39:33 03/28/2016 11:20:24 [id number] [facility] [address] [place] [id number] 04/05/2016 09:00:14 04/05/2016 09:13:01 [id number] Beatriz_Ol ler_CM [facility] Mental [facility] [address] [place] [id number] 04/12/2016 09:08:56 04/12/2016 10:07:05 [id number] Stephanie barrow MD [facility] [address] [place] [id number] 04/18/2016 08:32:39 04/18/2016 09:40:55 [id number] Tawanna Valera [facility] [address] [place] [id number] 04/18/2016 08:35:25 04/18/2016 09:11:18 [id number] Andrés Phan MD [facility] [address] [place] [address] 04/20/2016 10:04:27 04/20/2016 13:35:42 Essential hypertension 76770363 I10 Gynecologi c examination 91808321 Z01.419 Hypothyroidism 11013289 E03.9 [id number] Tawanna Valera [facility] [address] [place] [id number] 05/19/2016 09:13:23 05/20/2016 14:05:08 [id number] Beatriz_Ol ler_CM [facility] [address] [place] [id number] 05/19/2016 09:17:16 05/19/2016 09:56:41 [id number] Stephanie brarow MD [facility] [address] [place] [id number] 05/23/2016 09:03:45 05/23/2016 10:08:42 [id number] Tawanna Valera [facility] [address] [place] [id number] 06/07/2016 14:25:04 06/07/2016 15:23:36 Health Concerns Section Related Observation LastModified by Organization Detai ls LastModified Time None Recorded Concern Status LastModified by Organization Details LastModified Time None Recorded Advance Directives Directive None Recorded Payers Encounter Date Sequence Insurance Name Policy Number Policy Weston Covered Member ID Weston Member ID Guarantor Name 04/20/2016 [employer] (MOVED - BILLED) Elle Lopez [id number] Elle Lopez Notes Date Note Type Note Provider Name and Address Organization Details Recorded Time 04/20/2016 text/html the pt is here for check up she is part of [employer] Andrés Phan MD [address] [place], [address], [facility] 04/20/2016 13:11:30 OBGyn Episode No OBEpisode recorded.
--- OUTSIDE RECORDS SUMMARY | 2024-05-01 19:07 | XMS_ITS | Encounter Summary ---
Author Organization [employer] Address [address]t [place] [address] Care Team Providers Care Manufacturing Accountant Name Role Phone Toyin Pollard Primary Care Provider Satish Brennan MD Unavailable [phone] Jacob Morrow Unavailable [phone] Nicolasa Escobar MD Unavailable Shen Davis MD Unavailable [phone] Reason for Visit * Reason Onset Date Comments PT1 01/30/2023 Encounter Details Date Type Department Care Team (Late st Contact Info) Description 01/30/2023 Telephone [facility] MEDICINE [address] [place], [place] [phone] Toyin Pollard FNP [address] [place], [place] [phone] PT1 Social History Tobacco Use Types Packs/Day [...] * Telephone Encounter - Tawanna Paul - 02/02/2023 4:39 PM EST PT-1 submitted for patient. They will receive a letter of approval or denial in the mail. * Telephone Encounter - Pinky Wallis - 01/30/2023 4:01 PM EST Tc from pt requesting PT1 transportation. Date: 03/27/2022 Time: 8:30 Visits: 5 Address: [address] [place] [address] Facility: [facility] Neurology Wheel Chair: Scooter and O2 Boring Machine Set Up Operator Needed: Yes 1 documented in this encounter Plan of Treatment Upcoming Encounters Date Type Department Care Team (Late st Contact Info) Description 05/21/2024 2:30 PM EST Clinical Support [facility] CH[facility] MED & PEDS [address] [place] [address] 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, RN [address] [place], [place] documented as of this encounter Goals [...] documented as of this encounter Care Teams Manufacturing Accountant Relationship Specialty Start Date End Date Toyin Pollard FNP [address] [place] [address] PCP - General Family Medicine 01/11/21 Satish Brennan MD [address] [place] [address] Endocrinology 02/22/24 Jacob Morrow [address] [place] [address] Pulmonary Disease 02/22/24 Nicolasa Escobar MD [address] [place] [address] [facility] [address] [place] [address] Neurology 02/22/24 Shen Davis MD [address] [place] [address] Nephrology 02/22/24 Ellyn Connolly Park Worker SupervisorAssociate Dean 08/17/23 [facility] 01/11/24 01/21/24 [facility] 01/11/24 documented as of this encounter
--- OUTSIDE RECORDS SUMMARY | 2024-05-01 19:07 | XMS_ITS | Encounter Summary ---
Author Organization [employer] Address [address] [facility] [address] [place] [address] Care Team Providers Care Credit Collections Specialist Name Role Phone Toyin Pollard Primary Care Provider Satish Brennan MD Unavailable Jacob Morrow Unavailable [phone] Nicolasa Escobar MD Unavailable Shen Davis MD Unavailable [phone] Reason for Visit * Reason Onset Date Comments FYI 01/10/2024 Encounter Details Date Type Department Care Team (Late st Contact Info) Description 01/10/2024 Telephone [facility] MEDICINE [address] [place], [place] [phone] Toyin Pollard FNP [address] [place], [place] [phone] FYI Social History Tobacco Use Types Packs/Day Years [...] encounter Miscellaneous Notes * Telephone Encounter - Yadiel Cartwright - 01/11/2024 12:48 PM EDT Tc from [facility] with misti JOSEPH would like to inform PCP that they will be discharging pt from their services due to pt already having [facility] with [facility]. Please contact at [phone] * Telephone Encounter - Yadiel Cartwright - 01/10/2024 3:15 PM EDT T[facility] with [facility] would like to inform PCP that they have scheduled a visit with pt on 01/11/24 for admission, Advised will leave message as FYI., if any questions Please contact at [phone] EXT [phone] documented in this encounter Plan of Treatment Upcoming Encounters Date Type Department Care Team (Late st Contact Info) Description 05/21/2024 2:30 PM EST Clinical Support [facility] MED & PEDS [address] [place] [address] 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, RN [address] [place], [place] documented as of this encounter Goals [...] documented as of this encounter Care Teams Credit Collections Specialist Relationship Specialty Start Date End Date Toyin Pollard FNP [address] [place] [address] PCP - General Family Medicine 01/11/21 Satish Brennan MD [address] [place] [address] Endocrinology 02/22/24 Jacob Morrow 5 [place] [address] Pulmonary Disease 02/22/24 Nicolasa Escobar MD [address] [place] [address] Dr [facility] [address] [place] [address] Neurology 02/22/24 Shen Davis MD [address] [place] [address] Nephrology 02/22/24 Ellyn Connolly Radio Communication CoordinatorCollege Admissions Counselor 08/17/23 [facility] 01/11/24 01/21/24 [facility] 01/11/24 documented as of this encounter
--- OUTSIDE RECORDS SUMMARY | 2024-05-01 19:07 | XMS_ITS | Encounter Summary ---
Author Organization [employer] Address [address] [facility] [address] [place] [address] Care Team Providers Care Audio Visual Equipment Rental Clerk Name Role Phone Toyin Pollard Primary Care Provider [phone] Satish Brennan MD Unavailable [phone] Jacob Morrow Unavailable [phone] Nicolasa Escobar MD Unavailable [phone] Shen Davis MD Unavailable [phone] Encounter Details Date Type Department Care Team (Late Contact Info) Description 05/24/[address] [facility] MEDICINE [address] [place] [address] Toyin Pollard FNP [address] [place], [place] [phone] Social History Tobacco Use Types Packs/Day Years [...] suspected to have Coronavirus/COVID-19? No / Unsure 05/13/2022 9:15 AM EST documented as of this encounter Plan of Treatment Upcoming Encounters Date Type Department Care Team (Late Contact Info) Description 05/21/2024 2:30 PM EST Clinical Support [facility] CH[facility] MED & PEDS [address] [place] [address] 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, RN [address] [place] [address] documented as of this encounter Visit Diagnoses Not on filedocumented in this encounter Care Teams Audio Visual Equipment Rental Clerk Relationship Specialty Start Date End Date Toyin Pollard FNP [address] [place] [address] PCP - General Family Medicine 01/11/21 Satish Brennan MD [address] [place] [address] Endocrinology 02/22/24 Jacob Morrow [address] [place] [address] Pulmonary Disease 02/22/24 Nicolasa Escobar MD [address] [place] [address] [address] [facility] [address] [place] [address] Neurology 02/22/24 Shen Davis MD [address] [place] [address] Nephrology 02/22/24 Ellyn Connolly Database ModelerSports Equipment Racker 08/17/23 [facility] 01/11/24 01/21/24 [facility] 01/11/24 documented as of this encounter
--- OUTSIDE RECORDS SUMMARY | 2024-05-01 19:07 | XMS_ITS | Clinical Summary ---
Author Organization [employer] Address [address] [facility] [facility] [address] [place] [address] Care Team Providers Care Consumer Educator Name Role Phone JuddToyin barry LOUIE Primary Care Provider [phone] Satish Brennan MD Unavailable Jacob Morrow Unavailable [phone] Nicolasa Escobar MD Unavailable Shen Davis MD Unavailable [phone] Allergies Active Allergy Reactions Criticality Noted Date Comments Haloperidol Unknown High 03/22/2022 Other reaction(s): Irritable Latex Rash Low 01/14/2021 Metformin Diarrhea,Hives High 01/14/2021 Morphine Itching,Rash Low 02/07/2019 Tetracycline Hives High 03/22/2022 Medications TRUEplus Lancets 33G miscIndications: Type 2 diabetes mellitus with complication ([facility]) 1 Lancet in the morning, at noon, and at bedtime. 100 each 11 022 Active Petrolatum 42 % ointment APPLY TWICE DAILY TO AFFECTED AREA(S) 454 g 1 023 Active FREESTYLE LITE test strip TEST BLOOD SUGAR 3 TIMES A DAY 100 strip 6 023 Active fluticasone (Flonase) 50 MCG/ACT nasal spray INHALE 1 SPRAY IN EACH NOSTRIL ONCE DAILY NEEDED 48 g 4 023 Active atorvastatin (Lipitor) 40 MG tablet Take 1 tablet by mouth in the morning. 023 Active benztropine (Cogentin) 1 MG tablet Take 1 tablet by mouth 2 times daily. Active Breztri Aerosphere 160-9-4.8 MCG/ACT aerosol Inhale 2 puffs 2 times daily. Rinse mouth after using Active divalproex (Depakote ER) 250 MG 24 hr tablet TAKE 1 TABLET BY MOUTH EVERYDAY AT NOON Active divalproex (Depakote ER) 500 MG 24 hr tablet TAKE 1 TABLET BY MOUTH EVERYDAY AT NOON and TAKE 2 TABLETS BY MOUTH EVERY DAY AT BEDTIME Active hydrOXYzine HCl (Atarax) 50 MG tablet TAKE 1 TABLET BY MOUTH THREE TIMES DAILY NEEDED for SLEEP /ANXIETY/ AGITATION Active insulin lispro (HumaLOG) 100 UNIT/ML injection INJECT 40 UNITS SUBCUTANEOUSLY THREE TIMES DAILY WITH MEALS Active BD Pen Needle Mary U/F 32G X 4 MM misc USE DIRECTED FOUR TIMES DAILY Active lurasidone (Latuda) 60 MG tablet TAKE 1 TABLET BY MOUTH EVERY MORNING WITH FOOD (AT LEAST 350 CALORIES) Active prazosin (Minipress) 1 MG capsule Take 1 capsule by mouth at bedtime. With 5 mg cap Active prazosin (Minipress) 5 MG capsule Take 1 capsule by mouth at bedtime. With 1 mg cap Active QUEtiapine (SEROquel) 100 MG tablet TAKE 1 TABLET BY MOUTH EVERY EVENING NEEDED and TAKE 2 TABLETS BY MOUTH EVERY DAY AT BEDTIME Active QUEtiapine (SEROquel) 400 MG tablet Take 1 tablet by mouth at bedtime. Active triamcinolone (Kenalog) 0.1 % ointmentIndicati ons:Other eczema APPLY A THIN LAYER TOPICALLY AFFECTED AREA(S) TWICE DAILY FOR UP TO 2 WEEKS 30 g 1 023 Active Vitron-C 65-125 MG tablet TAKE 1 TABLET BY MOUTH AT BEDTIME Active ASPIRIN 81 MG chewable tablet Take 1 tablet by mouth once daily as directed - Patient purchasing OTC Active cholecalciferol (Vitamin D-3) 50 MCG (1999 UT) tablet TAKE 1 TABLET BY MOUTH EVERY MORNING 90 tablet 3 024 Active lisinopril 10 MG tablet TAKE 1 TABLET BY MOUTH AT BEDTIME 90 tablet 3 024 Active atenolol (Tenormin) 50 MG tablet TAKE 1 TABLET BY MOUTH EVERYDAY AT NOON 90 tablet 3 024 Active acetaminophen (Tylenol Extra Strength) 500 MG tablet Take 1 tablet (500 mg) by mouth every 6 (six) hours if needed for mild pain. 30 tablet 024 2024 Active melatonin 5 MG tablet Take 1-2 tablets (5-10 mg) by mouth if needed at bedtime (insomnia). 90 tablet 3 024 Active cetirizine (ZyrTEC) 10 MG tabletIndication s:Seasonal allergies TAKE 1 TABLET BY MOUTH EVERY DAY NEEDED FOR ALLERGIES 90 tablet 3 024 Active Continuous Glucose Sensor (FreeStyle Todd 2 Sensor) [facility] USE DIRECTED CHANGE EVERY 14 DAYS Active topiramate 50 MG tablet TAKE 1 TABLET BY MOUTH TWICE DAILY IN THE MORNING AND AT BEDTIME 024 Active docusate sodium (Colace) 100 MG capsuleIndicatio ns:Chronic constipation TAKE 1 CAPSULE BY MOUTH ONCE DAILY NEEDED FOR CONSTIPATION 90 capsule 3 024 Active Multiple Vitamin (Multivitamin) tablet TAKE 1 TABLET BY MOUTH EVERYDAY AT NOON WITH FOOD 90 tablet 3 024 Active econazole nitrate 1 % creamIndications :Intertrigo APPLY TO AFFECTED AREA(S) TWICE DAILY FOR 1 TO 2 WEEKS 30 g 2 024 Active lidocaine (Lidoderm) 5 % patch APPLY 1 PATCH TOPICALLY TO SKIN, LEAVE ON FOR 12 HOURS AND OFF FOR 12 HOURS DIRECTED 30 patch 5 Active Tirosint 150 MCG capsule Take 1 capsule by mouth Once per day. TDD 350 mcg Active LORazepam (Ativan) 1 MG tablet Take 1 tablet by mouth if needed each day (panic attack). 024 Active Mounjaro 7.5 MG/0.5ML solution pen-injector Inject 7.5 mg under the skin every 7 (seven) days. Active albuterol (Ventolin HFA) 108 (90 Base) MCG/ACT inhalerIndicatio ns:Chronic obstructive pulmonary disease, unspecified COPD type (CMS/HCC) INHALE 2 PUFFS BY MOUTH EVERY 4 TO 6 HOURS NEEDED 18 g 3 024 Active alendronate (Fosamax) 70 MG tablet take 1 tablet once a week with 6 to 8 oz of water 30 min before first food of day. do not lie down for 30 minutes 12 tablet 3 024 Active ammonium lactate (Lac-Hydrin) 12 % lotion APPLY 2 GRAMS TOPICALLY TO AFFECTED AREA(S) EVERY DAY NEEDED FOR DRY SKIN 225 g 3 024 Active folic acid (Folvite) 1 MG tabletIndication s:Routine health maintenance TAKE 1 TABLET BY MOUTH EVERY MORNING 90 tablet 3 024 Active nystatin (Nyamyc) 708402 UNIT/GM powderIndication s:Tinea APPLY TOPICALLY TO AFFECTED AREA(S) TWICE DAILY 60 g 2 024 Active scopolamine (Transderm-Scop) 1 MG/3DAYS patch 72 hourIndications: Dizziness, nonspecific Place 1 patch on the skin every 3rd (third) day if needed (severe dizziness/motion sickness and nausea). 10 patch 1 024 Active nicotine polacrilex (Nicorette) 4 MG gumIndications:S mokes cigarettes CHEW 1 PIECE OF GUM EVERY 2 HOURS NEEDED FOR SMOKING CESSATION. NO MORE THAN THAN 24 PIECES PER DAY. 50 each 11 024 Active insulin glargine (Toujeo Max SoloStar) 300 UNIT/ML injectionIndicat ions:Type 2 Diabetes Mellitus Inject 64 Units under the skin at bedtime. Endo Active Rimegepant Sulfate (Nurtec) 75 MG tablet dispersibleIndic ations:Migraine without status migrainosus, not intractable, unspecified migraine type DISSOLVE 1 TABLET ON TONGUE NEEDED FOR MIGRAINE. NO MORE THAN 1 TABLET PER 24 HOURS 12 tablet 5 024 Active Alcohol Swabs (Alcohol Prep) 70 % pads USE THREE TIMES DAILY 100 each 11 024 Active amitriptyline (Elavil) 10 MG tabletIndication s:Other migraine without status migrainosus, not intractable TAKE 1 TABLET BY MOUTH AT BEDTIME 90 tablet 1 025 Active furosemide (Lasix) 40 MG tabletIndication s:Hypertension, unspecified type Take 1 tablet (40 mg) by mouth in the morning. 90 tablet 1 025 Active montelukast (Singulair) 10 MG tabletIndication s:Asthma, unspecified asthma severity, unspecified whether complicated, unspecified whether persistent,Seaso nal allergies Take 1 tablet (10 mg) by mouth at bedtime. 90 tablet 1 025 Active traMADol (Ultram) 50 MG tabletIndication s:Pain,Calculus of gallbladder without cholecystitis without obstruction,Long -term current use of opiate analgesic TAKE 1 TABLET BY MOUTH EVERY DAY NEEDED FOR SEVERE PAIN 28 tablet 025 Active Diclofenac Sodium 1 % gel APPLY 2 GRAMS TOPICALLY TO AFFECTED AREA(S) TWICE DAILY NEEDED FOR PAIN 100 g 3 025 Active Diclofenac Sodium 1 % gel APPLY 2 GRAMS TOPICALLY TO AFFECTED AREA(S) TWICE DAILY 100 g 3 024 2024 Discontinued traMADol (Ultram) 50 MG tabletIndication s:Pain,Calculus of gallbladder without cholecystitis without obstruction Take 1 tablet (50 mg) by mouth if needed each day for severe pain. 28 tablet 024 2024 Discontinued Active Problems Problem Noted Date Diagnosed Date Long-term current use of opiate analgesic 2024 Overview (04/12/2024): Medication: Tramadol 50mg daily prn Indication: calculus of gallbladder Complete edentulism 01/20/2023 Other specified hypothyroidism 11/15/2022 Overview (11/15/2022): ?? Followed by [facility] Endo Lab Results Component Value Date TSH 20.93 (H) 09/04/2022 -Continues with Levothyroxine 300mcg daily (prescriber Dr. Kinsey) -Reviewed med use/admin Cervical spondylosis 11/15/2022 Overview (11/15/2022): Cervical MRI 12/27/2020 with the following impression: There is multilevel degenerative spondylosis of the cervical spine with moderate canal stenosis at C5-C6 and mild canal stenosis at C4-C5. No overt cord compression and no abnormal intramedullary signal changes. Uncovertebral joint spurring and facet degenerative change causes varying degrees of neuroforaminal encroachment as described above. For instance, there is moderate to severe bilateral neuroforaminal encroachment at C5-C6. -Referral to PS&S on 11/15/22 Healthcare maintenance 11/10/2022 Overview (08/05/2023): Optometry: followed by [facility], last appt Feb 2021 Mammogram: BIRADS 2 02/21/2019, due. Ordered 11/15/22 Colonoscopy: followed by GI, referral for screening colonoscopy placed 11/15/22. Cologuard negative 03/08/23 Pap: overdue, pt does not recall last pap. Will schedule with [facility] in handicap accessible room Last PE: 07/17/23 Assessment & Plan (07/19/2023 10:15 AM EDT): Labs ordered today, showed hyperkalemia, but with hemolysis Will repeat at next appointment with PCP ADHD 09/28/2022 History of posttraumatic stress disorder (PTSD) 09/28/2022 Migraine 09/28/2022 Assessment & Plan (02/25/2024 6:26 PM EST): - History of migraines, previously using sumatripan. Discontinued with history of PR - Referral to Neuro for further eval and tx 11/15/22 -Nurtec 75mg tablet approval - PA # [id number], exp 02/12/25 - pt reports med effective. Denies med SE Assessment & Plan (08/05/2023 5:08 PM EDT): - History of migraines, previously using sumatripan. Discontinued with history of PR - Referral to Neuro for further eval and tx 11/15/22 -Nurtec 75mg tablet approved May 2023. #[id number] will on 12/17/23 - pt reports med effective. Denies med SE Assessment & Plan (11/15/2022 5:45 PM EDT): - History of migraines, previously using sumatripan. Discontinued with history of PR - PA for Nurtec denied through PCP - Referral to Neuro for further eval and tx 11/15/22 Multinodular thyroid 09/28/2022 Pulmonary nodules 09/28/2022 Smokes cigarettes 09/28/2022 Assessment & Plan (02/22/2024 4:26 PM EST): -Down to 1 cigg/day -Cont NRT gum PRN Umbilical hernia 09/28/2022 Aneurysm of infrarenal abdominal aorta 3 Overview (03/02/2023): -Noted to have enlarging AAA between 2019->2022 grew from 3 to 5 cm. -Patient will follow outpt Vasc Surg at [facility] - Dr. Canales -Incidental measuring on CT Dec 2022 - approx 5.3cm Schizoaffective disorder 04/05/2022 Disorder of both sacroiliac joints 04/05/2022 Anxiety disorder 04/05/2022 History of myocardial infarction 12/01/2021 Chronic hypoxemic respiratory failure 11/15/2021 Allergic rhinitis 05/05/2021 Gallstone 05/05/2021 Assessment & Plan (02/22/2024 4:26 PM EST): PAIN CONTROL - Initially prescribed by surgeon for pain control w/ hx of pain w/ gall bladder as surgeon thought risk of operating was too great, so started treatment with tramadol - Extensive discussion with patient about the risks and harms of joint terminal attack controller opioid use - Pt goal is to lose enough weight so that she is eligible for gall bladder surgery, was referred to Weight management clinic 10/08/21 Assessment & Plan (11/15/2022 5:10 PM EDT): PAIN CONTROL - Initially prescribed by surgeon for pain control w/ hx of pain w/ gall bladder as surgeon thought risk of operating was too great, so started treatment with tramadol - Extensive discussion with patient about the risks and harms of joint terminal attack controller opioid use - Pt goal is to lose enough weight so that she is eligible for gall bladder surgery, was referred to Weight management clinic 10/08/21 Chronic constipation 05/05/2021 COPD (chronic obstructive pulmonary disease) Assessment & Plan (02/25/2024 6:20 PM EST): - Patient continues on supplemental oxygen: 6L/min @ rest or when sitting, and 8L/min when up and moving around. - Following with [facility] Pulmonology - Dr. Morrow - Marycarmen SOB. Denies any fevers, chills, difficulty breathing, cough, or mucous production. Reports that she has enough supplemental O2 at home -Continue with Breztri ([id number]) BID -Albuterol PRN -DME request for neb machine placed 11/15/22 Assessment & Plan (11/15/2022 5:33 PM EDT): - Patient continues on supplemental oxygen: 6L/min @ rest or when sitting, and 8L/min when up and moving around. - Following with [facility] Pulmonology - Dr. Morrow - Marycarmen SOB. Denies any fevers, chills, difficulty breathing, cough, or mucous production. Reports that she has enough supplemental O2 at home -Continue with Breztri ([id number]) BID -Albuterol PRN -DME request for neb machine placed 11/15/22 Coronary arteriosclerosis 05/05/2021 Depressive disorder 05/05/2021 Edema of lower extremity 05/05/2021 GERD (gastroesophageal reflux disease) 2 Moderate persistent asthma without complication 05/05/2021 Tobacco dependence syndrome 05/05/2021 Vitamin D deficiency 05/05/2021 Schizoaffective disorder, bipolar type 2 Assessment & Plan (11/15/2022 5:40 PM EDT): ?? Following with psych, continues with med management through their office Severe obesity 02/09/2021 Assessment & Plan (02/25/2024 6:29 PM EST): BMI Readings from Last 1 Encounters: 08/02/23 91.60 kg/m?? Encouraged good nutrition and continuing to engage with physical therapy Bipolar I disorder 03/07/2020 HTN (hypertension) 03/07/2020 Assessment & Plan (02/25/2024 6:18 PM EST): -EF 55-60% Fall 2023 HLD (hyperlipidemia) 03/07/2020 T2DM (type 2 diabetes mellitus) 03/07/2020 Assessment & Plan (02/25/2024 6:25 PM EST): Following with [facility] Endo Continue Mounjaro & Toujeo, with goal of weight loss leading to bariatric surgery Lab Results Component Value Date HGBA1C 6.4 (A) 08/02/2023 HGBA1C 6.7 (A) 07/17/2023 HGBA1C 10.4 (A) 03/01/2023 HGBA1C TNP 07/20/2022 HGBA1C 7.8 (H) 01/11/2021 HGBA1C 11.9 (H) 11/11/2019 HGBA1C 11.9 (H) 11/11/2019 A1c: congratulated in improvement with A1c levels Eye exam: due, schedule with [facility] Foot exam: referral to podiatry 11/15/22 Dental: encouraged PNA: UTD ACEi/ARB: yes Statin: yes ASA: yes Lifestyle: Encouraged regular movement as able and aerobic exercise for improved glycemic control Encouraged daily foot checks Encouraged lean protein snacks and to avoid foods high in sugar and simple carbohydrates Medications: Per [facility] Endo Toujeo insulin: 64 units at bedtime Humalog 14 units TID AC Mounjaro 7.5mg subcutaneous weekly Treatment Goals: A1c goal: <7% FBG goal: <130 2 hour post prandial goal: <180 Assessment & Plan (08/05/2023 5:09 PM EDT): Following with [facility] Endo Continue Mounjaro & Toujeo, with goal of weight loss leading to bariatric surgery Lab Results Component Value Date HGBA1C 6.4 (A) 08/02/2023 HGBA1C 6.7 (A) 07/17/2023 HGBA1C 10.4 (A) 03/01/2023 HGBA1C 7.8 (H) 01/11/2021 HGBA1C 11.9 (H) 11/11/2019 HGBA1C 11.9 (H) 11/11/2019 A1c: congratulated in improvement with A1c levels Eye exam: due, schedule with [facility] Foot exam: referral to podiatry 11/15/22 Dental: encouraged PNA: UTD ACEi/ARB: yes Statin: yes ASA: yes Lifestyle: Encouraged regular movement as able and aerobic exercise for improved glycemic control Encouraged daily foot checks Encouraged lean protein snacks and to avoid foods high in sugar and simple carbohydrates Medications: Per [facility] End[facility] Treatment Goals: A1c goal: <7% FBG goal: <130 2 hour post prandial goal: <180 Assessment & Plan (07/19/2023 10:16 AM EDT): Following with [facility] Endo Continue Mounjaro with goal of weight loss leading to bariatric surgery Lab Results Component Value Date HGBA1C 10.4 (A) 03/01/2023 A1c: above goal Eye exam: due, schedule with [facility] Foot exam: referral to podiatry 11/15/22 Dental: encouraged PNA: UTD ACEi/ARB: yes Statin: yes ASA: yes Lifestyle: Encouraged regular movement as able and aerobic exercise for improved glycemic control Encouraged daily foot checks Encouraged lean protein snacks and to avoid foods high in sugar and simple carbohydrates Medications: Per [facility] End[facility] Treatment Goals: A1c goal: <7% FBG goal: <130 2 hour post prandial goal: <180 Assessment & Plan (03/02/2023 4:56 PM EST): Following with [facility] Endo Lab Results Component Value Date HGBA1C 10.4 (A) 03/01/2023 A1c: above goal Eye exam: due, schedule with [facility] Foot exam: referral to podiatry 11/15/22 Dental: encouraged PNA: UTD ACEi/ARB: yes Statin: yes ASA: yes Lifestyle: Encouraged regular movement as able and aerobic exercise for improved glycemic control Encouraged daily foot checks Encouraged lean protein snacks and to avoid foods high in sugar and simple carbohydrates Medications: ? ? Per [facility] End[facility] Treatment Goals: A1c goal: <7% FBG goal: <130 2 hour post prandial goal: <180 Assessment & Plan (11/15/2022 5:38 PM EDT): Following with [facility] Endo Lab Results Component Value Date HGBA1C 10.1 (A) 09/28/2022 A1c: above goal Eye exam: due, schedule with [facility] Foot exam: referral to podiatry 11/15/22 Dental: encouraged PNA: UTD ACEi/ARB: yes Statin: yes ASA: does not appear to be taking, although hx of PR. Will refer to [facility] for further eval. Lifestyle: Encouraged regular movement as able and aerobic exercise for improved glycemic control Encouraged daily foot checks Encouraged lean protein snacks and to avoid foods high in sugar and simple carbohydrates Medications: ? ? Per [facility] Endo Treatment Goals: A1c goal: <7% FBG goal: <130 2 hour post prandial goal: <180 Obstructive sleep apnea syndrome 03/07/2020 Resolved Problems Problem Noted Date Diagnosed Date Resolved Date Acute febrile illness 09/28/20222022 Acute hyponatremia 09/28/2022 Aortic aneurysm 09/28/2022 11/15/2022 Pneumonitis 09/28/2022 11/10/2022 E coli bacteremia 09/28/2022 11/10/2022 Fibula fracture 09/28/2022 11/10/2022 Hx of fracture of patella 09/28/2022 Myocardial infarction 09/28/20222022 Back pain 05/05/2021 11/10/2022 Acute hypercapnic respiratory failure 03/07/2020 11/10/2022 Asthma 03/07/2020 11/10/2022 Closed fracture of left ankle 03/07/2020 11/10/2022 COVID-19 03/07/2020 11/10/2022 Hyperkalemia 03/07/2020 11/10/2022 Goiter 03/07/2020 11/10/2022 Syncope and collapse 03/07/2020 023 Encounters Date Type Department Care Team Description 04/30/2024 Refill [facility] [address] [place], [place] [phone] Toyin Pollard FNP Smokes cigarettes 04/22/2024 Telephone [facility] [address], [place] [phone] Toyin Pollard FNP 04/19/2024 Refill [facility] [address], [place] [phone] Toyin Pollard FNP Dizziness, nonspecific 04/15/2024 Travel 04/15/2024 Telephone [facility] [address] [place] [address] 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, [employer]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 04/15/2024 Telephone [facility] [address] [place] [phone] Toyin Pollard FNP 04/14/2024 Refill [facility] [address] [place] [phone] Toyin Pollard FNP 04/12/2024 Refill [facility] [address] [place] [phone] Toyin Pollard FNP Long-term current use of opiate analgesic (Primary Dx); Pain; Calculus of gallbladder without cholecystitis without obstruction 04/04/2024 Orders Only [facility] External Provider, [facility] 03/29/2024 Refill [facility] [address] [place] [phone] Toyin Pollard FNP Hypertension, unspecified type; Asthma, unspecified asthma severity, unspecified whether complicated, unspecified whether persistent; Seasonal allergies 03/27/2024 Refill [facility] [address] [place] [phone] Toyin Pollard FNP Other migraine without status migrainosus, not intractable 03/04/2024 Telephone [facility] [address] [place] [address] Toyin Pollard FNP Nurse Triage 02/29/2024 Telephone [facility] [address] [place] [address] Toyin Pollard FNP TC: Hypokalemia 02/29/2024 Orders Only [facility] [address] [place] [address] Toyin Pollard FNP Chronic hypoxemic respiratory failure (CMS/HCC) (Primary Dx); Type 2 diabetes mellitus with other specified complication, with long-term current use of insulin (CMS/HCC) 02/28/2024 Refill [facility] [address] [place] [address] Toyin Pollard FNP 02/28/2024 Refill [facility] [address] [place] [address] Adonis Plascencia MD Migraine without status migrainosus, not intractable, unspecified migraine type (Primary Dx) 02/21/2024 2:15 PM EST Telemedicine [facility] [address] [place] [address] Toyin Pollard FNP Closed fracture of distal end of right fibula with routine healing, unspecified fracture morphology, subsequent encounter (Primary Dx); Tinea; Pain; Smokes cigarettes; Dizziness, nonspecific; Calculus of gallbladder without cholecystitis without obstruction; Primary hypertension; Chronic hypoxemic respiratory failure (CMS/HCC); Chronic obstructive pulmonary disease, unspecified COPD type (CMS/HCC); Type 2 diabetes mellitus with other specified complication, with long-term current use of insulin (CMS/HCC); Migraine without status migrainosus, not intractable, unspecified migraine type; Severe obesity (CMS/HCC); Stress incontinence of urine 02/21/2024 Travel 02/21/2024 Telephone [facility] [address] [place] [address] Ricky Campos MA Chart Prep 02/19/2024 Telephone [facility] [address] [place] [address] Toyin Pollard FNP Durable Medical Equipment 01/30/2024 Refill [facility] [address] [place] [address] Toyin Pollard FNP Routine health maintenance from Last 3 Months Immunizations Name Administration Dates Next Due Influenza injectable quadriv alent preservative free 01/14/2022,11/30/2021,02/24/2021,02/18 Pfizer Covid-19 Vaccine 12+ 02/24/2021,,04/01/2020 Pneumococcal Conjugate PCV 20 11/10/2022 Pneumococcal Polysaccharide PPSV23 02/19/2020 Tdap 02/19/2020 Zoster, Recombinant 11/05/2021,08/25/2021 Social History Tobacco Use Types Packs/Day Years Used Date Smoking Tobacco: Former Cigarettes Passive Smoke Exposure: Past Smokeless Tobacco: Never Tobacco Cessation:Counseling Given: Not Answered Alcohol Use Standard Drinks/Week Comments Never 0 [...] Orientation Straight 01/17/2022 10 :36 AM EDT Last Filed Vital Signs Vital Sign Reading Time Taken Comments Blood Pressure 111/71 08/28/2023 2:28 PM EDT Pulse 91 08/28/2023 2:28 PM EDT Temperature 36.8 ??C (98.3 ??F) 08/28/2023 2:28 PM ED T Respiratory Rate 22 08/28/2023 2:28 PM EDT Oxygen Saturation 95% 08/28/2023 2:28 PM EDT Inhaled Oxygen Concentration - - Weight 213 kg (469 lb) 08/02/2023 3:01 PM EDT Height 152.4 cm (5') 08/02/2023 3:01 PM EDT Body Mass Index 91.6 08/02/2023 3:01 PM EDT Plan of Treatment Upcoming Encounters Date Type Department Care Team (Late st Contact Info) Description 05/21/2024 2:30 PM EST Clinical Support [facility] [address] [place] [address] 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, RN [address] [place] [address] Health Maintenance Due Date Last Done Comments CT Colonography 1971 Colonoscopy 1971 Dental Prophylaxis 1971 FIT 1971 FOBT 1971 Sigmoidoscopy 1971 Diabetes: Foot Exam 1981 Eye Exam 1981 Alcohol/Substance Use Screening 1983 Hepatitis A Vaccines (1 of 2 - Risk 2-dose series) 1990 Hepatitis B Vaccines (1 of 3 - 19+ 3-dose series) 1990 Pap Smear 02/17/1992 Dental X-Ray: Bitewings 04/23/2020 04/22/2019 Diabetes: Urine Protein Screening 11/11/2020 11/12/2019 Dental X-Ray: Full Mouth 04/23/2022 04/22/2019 Mammogram 05/27/2022 05/27/2020, 02/21/2019 Dental Oral Exam 07/22/2023 01/20/2023, 04/22/2019 SDOH Screening 09/29/2023 09/28/2022 Diabetes: Hemoglobin A1C 11/02/2023 024, 07/17/2023, 03/01/2023, Additional history exists COVID-19 Vaccine ( season) 2023 02/24/2021, 11/20/2020, 04/01/2020 Influenza Vaccine (#1) 2023 2, 11/30/2021, 02/24/2021, Additional history exists Depression Monitoring (PHQ-9) 02/02/2024 08/02/2023, 08/02/2023 Cervical Cancer Screening 02/21/2024 HPV/Cotest 02/21/2024 02/20/2019 Lipid Panel 07/16/2024 07/17/2023 Depression Screening 08/01/2024 08/02/2023, 08/02/19 Tobacco Screening 08/27/2024 08/28/2023 Colorectal Cancer Screening 03/08/2026 FIT DNA/Cologuard 03/08/2026 03/08/2023 DTaP/Tdap/Td Vaccines (2 - Td or Tdap) 02/18/2030 02/19/2020 RSV Patients and Patients Aged 60 years or older (1 - 1-dose 75+ series) 2046 Zoster Vaccines Completed 11/05/2021, 08/25/2021 Pneumococcal Vaccine: 50+ Years Completed 11/10/2022, 02/19/2020 HIV Screening Completed 07/19/2023 Hepatitis C Screening Completed 07/19/2023 HIB Vaccines Aged Out No longer eligi ble based on patient's age to complete this topic HPV Vaccines Aged Out No longer eligi ble based on patient's age to complete this topic IPV Vaccines Aged Out No longer eligi ble based on patient's age to complete this topic Meningococcal Vaccine Aged Out No nkechi latha eligible based on patient's age to complete this topic RSV under 20 months Aged Out No longe r eligible based on patient's age to complete this topic Rotavirus Vaccines Aged Out No longer eligible based on patient's age to complete this topic Goals Goal Patient Goal Type Associated Problems Recent Progress Patient-Stated? Author Hemoglobin A1c < 7 Result Component 6.4(08/02/2023 4:30 PM EDT) No Michelle Alegria PharmD Procedures Procedure Name Priority Date/Time Associated Diagnosis Comments XR FOOT 3+ VIEWS RIGHT Routine 04/04/2024 7:08 PM EST XR ANKLE 3+ VIEWS RIGHT Routine 04/04/2024 7:05 PM EST POCT GLYCATED HEMOGLOBIN, TOTAL Routine 08/02/2023 4:30 PM EDT Type 2 diabetes mellitus with other specified complication, with long-term current use of insulin (CMS/HCC) HEPATITIS C AB W/REFL TO HCV RNA, QN, PCR Routine 07/19/2023 12:30 PM EDT Healthcare maintenance HIV 1/2 ANTIGEN/ANTIBODY, FOURTH GENERATION W/RFL Routine 07/19/2023 12:30 PM EDT Healthcare maintenance LIPID PANEL, STANDARD Routine 07/17/2023 4:09 PM EDT Type 2 diabetes mellitus with other specified complication, with long-term current use of insulin (CMS/HCC) LAB COLOGUARD?? COLON CANCER SCREEN Routine 03/08/2023 3:30 PM EST Encounter for screening for malignant neoplasm of colon PERIODIC ORAL EVALUATION - ESTABLISHED PATIENT Routine 01/20/2023 9:00 AM EDT MAMMOGRAM GENERIC Routine 05/27/2020 2:3 0 PM EST ALBUMIN, RANDOM URINE W/CREATININE Routine 11/12/2019 10:27 AM EDT INTRAORAL - COMPLETE SERIES OF RADIOGRAPHIC IMAGES Routine 04/22/2019 12:00 AM EST ZZZ HISTORICAL HPV MRNA E6/E7 Routine 02/20/2019 8:58 AM EST from Last 3 Months or Most Recently Relevant to Health Maintenance Results * XR Foot 3+ Views Right (04/04/2024 7:08 PM EST) Anatomical Region Laterality Modality Lower Extremities, Foot Right Radiogra [facility] 04/04/2024 7:08 PM EST Narrative 04/04/2024 7:10 PM EST ? [facility] ?[address] ?[place] [address] ?XRay Report ? Signed ? Patient: Elle Lopez ?MR#: [id number] ?? 57 ? : 1970 ?Acct:[id number] ? Age/Sex: 54 / F ?ADM Date: 01/16/25 ? Loc: HO.ED ? Attending Dr: ? Ordering Physician: Silvia Jose ?? Date of Service: 04/04/24 ?? Procedure(s): XR foot RT min 3V ?? Accession Number(s): [id number] ? cc: [facility]; Silvia Jose ? CLINICAL HISTORY: pain ? [...] radiopaque retained ?? foreign body in the usyrk-au-ujna. ? IMPRESSION: ?? 1. Fragments about imaged ankle are new when compared to 2020. Please ?? refer to separate report for [...] by Keny Gonzalez MD in OV> ? 04/04/249 ? DD/ ? TD/TT: 04/04/241907 ? Cane Flume Feeding Machine Operator: ? Procedure Note Dondion, Image - 04/04/2024 [place] [address] XRay Report Signed Patient: Elle LopezMR#: [id number] 57 : 1970Acct:[id number] Age/Sex: 54 / FADM Date: 04/04/24 Loc: HO.ED Attending Dr: Ordering Physician: Silvia Jose Date of Service: 04/04/24 Procedure(s): XR foot RT min 3V Accession Number(s): [id number] cc: [facility]; Silvia Jose CLINICAL HISTORY: pain 3 view [...] No radiopaque retained foreign body in the kypyf-so-tzkh. IMPRESSION: 1. Fragments about imaged ankle are new when compared to 2020. Please refer to separate report for ankle [...] in OV> 04/04/241908 DD/ 07 TD/TT: 04/04/241907 Cane Flume Feeding Machine Operator: [facility] External Provider IMG XR PROCEDURES Final Result * XR Ankle 3+ Views Right (04/04/2024 7:05 PM EST) Anatomical Region Laterality Modality Lower Extremities, Ankle Right Radiogr [facility] 04/04/2024 7:05 PM EST Narrative 04/04/2024 7:06 PM EST ? [facility] ?[address] ?[place] [address] ?XRay Report ? Signed ? Patient: John,Elle ?MR#: [id number] ?? 57 ? : 1970 ?Acct:[id number] ? Age/Sex: 54 / F ?ADM Date: 01/16/25 ? Loc: HO.ED ? Attending Dr: ? Ordering Physician: Silvia Jose ?? Date of Service: 04/04/24 ?? Procedure(s): XR ankle RT min 3V ?? Accession Number(s): [id number] ? cc: [facility]; Silvia Jose ? CLINICAL HISTORY: pain ? [...] by Keny Gonzalez MD in OV> ? 04/04/24 1906 ? DD/ 04 ? TD/TT: 04/04/241904 ? Cane Flume Feeding Machine Operator: ? Procedure Note Sadiq, Image - 04/04/[address] [address] XRay Report Signed Patient: Alis Lopez#: [id number] 57 : 1970Acct:[id number] Age/Sex: 54 / FADM Date: 04/04/24 Loc: HO.ED Attending Dr: Ordering Physician: Silvia Jose Date of Service: 04/04/24 Procedure(s): XR ankle RT min 3V Accession Number(s): [id number] cc: [facility]; Silvia Jose CLINICAL HISTORY: pain 3 view [...] in OV> 04/04/241905 DD/ 04 TD/TT: 04/04/241904 Cane Flume Feeding Machine Operator: [facility] External Provider IMG XR PROCEDURES Final Result * (ABNORMAL) POCT HGB A1C (08/02/2023 4:30 PM EDT) Hemoglobin A1C 6.4(A) 4.0 - 6.0 % QC Media Lot # [id number] Lot# Expiration Date [id number] Blood 08/02/2023 4:30 PM EDT Toyin Pollard TRANSFER ENGINEER POINT OF CARE TEST ENTER/EDIT ORDERABLES Final Result * Hepatitis C Antibody with Reflex to HCV, RNA, Quantitative, Real-Time PCR (07/19/2023 12:30 PM EDT) Pathologist [facility] Hepatitis C Antibody Nonreactive Nonreactive [facility] Comment:Antibodies to HCV no t detected; does not exclude early acuteHCV infection. Blood Venous blood specimen / Unknown 07/19/2023 12:30 PM EDT 07/19/2023 1:00 PM EDT Agustina Toirbio MD LAB BLOOD ORDERABLES Final Res ult [facility] [address] [place] [address] [phone] * HIV-1/2 Antigen and Antibodies, Fourth Generation, with Reflexes (07/19/2023 12:30 PM EDT) HIV AB/AG Nonreactive Nonreactive [facility] Comment:HIV-1 p24 Ag and/or HIV-1/HIV-2 Ab not detected.A test result that is nonreactive does not exclude thepossibility of exposure to or infection with HIV-1 and/orHIV-2. Nonreactive results in this assay for individualswith prior exposure to HIV-1 and/or HIV-2 may be due toantigen and antibody levels that are below the limit ofdetection of this assay.The [employer] HIV Ag/Ab Combo assay result andsupplemental assay results should be interpreted inconjunction with the patient's clinical presentation,history and other laboratory results. If the results areinconsistent with clinical evidence, additional testing issuggested to confirm the result. Blood Venous blood specimen / Unknown 07/19/2023 12:30 PM EDT 07/19/2023 1:00 PM EDT us Agustina Toribio MD LAB BLOOD ORDERABLES Final Res ult [facility] [address] [place] [address] [phone] * (ABNORMAL) Lipid Panel, Standard (07/17/2023 4:09 PM EDT) Triglycerides 171(H) <150 mg/dL [facility] Comment:Desirable Triglyceri de: less than 150 mg/dLBorderline High Triglyceride 150-199 mg/dLHigh Triglyceride: 200-499 mg/dLVery High Triglyceride: greater than or equal to 5OO mg/dL Cholesterol 176 <200 mg/dL [facility] Comment:Desirable Cholestero l: less than 200 mg/dLBorderline High Cholesterol: 200-239 mg/dLHigh Cholesterol: greater than 239 mg/dL LDL Cholesterol Calculated 77 <100 mg/dL [facility] Comment:Desirable LDL: less than 100 mg/dLNear Optimal/Above Optimal LDL: 110- 129 mg/dLBorderline High LDL: 130-159 mg/dLHigh LDL: 160-189 mg/dLVery High LDL: greater than or equal to 190 mg/dL HDL Cholesterol 65 >40 mg/dL [facility] Comment:Desirable HDL: great er than 40 mg/dL Note: This HDL assay may give artificially low results in patients with liver disease. Blood Venous blood specimen / Unknown 07/17/2023 4:09 PM EDT 07/17/2023 5:46 PM EDT us Agustina Toribio MD LAB BLOOD ORDERABLES Final Res ult [facility] [address] [place] [phone] * Cologuard?? colon cancer screening (03/08/2023 3:30 PM EST) Pathologist [facility] Cologuard Result Negative Negative 03/16/20 9:24 AM EST [facility] (CLIA #:[id number]) Comment: NEGATIVE TEST RESULT. A negative Cologuard result indicates a low likelihood that a colorectal cancer (CRC) or advanced adenoma (adenomatous polyps with more advanced pre-malignant features) ??is present. The chance that a person with a negative Cologuard test has a colorectal cancer is less than 1 in 1500 (negative predictive value >99.9%) or has an ??advanced adenoma is less than ??5.3% (negative predictive value 94.7%). These data are based on a prospective cross-sectional study of 10,000 individuals at average risk for colorectal cancer who were screened with both Cologuard and colonoscopy. (Kevin Josue et al, N Engl J Med 2014;370(14):1286- 1297) The normal value (reference range) for this assay is negative. COLOGUARD RE-SCREENING RECOMMENDATION: Periodic colorectal cancer screening is an important part of preventive healthcare for asymptomatic individuals at average risk for colorectal cancer. ??Following a negative Cologuard result, the [place] Cancer Society and U.S. Multi-Society Task Force screening guidelines recommend a Cologuard re-screening interval of 3 years. References: [place] [employer] Society Guideline for Colorectal Cancer Screening: https://www.cancer.org/cancer/ikymn-ltshei-sumnea/xxppiqvfz-gntiqfnyc-ypwayvx/ac s-rec ommendations.html.; Miguel ARTIS, Maria Elena CHEW, Lester DILLON, Colorectal Cancer Screening: Recommendations for Physicians and Patients from the U.S. Multi-Society Task Force on Colorectal Cancer Screening , Am J Gastroenterology 2017; 112:3577-7920. TEST DESCRIPTION: Composite algorithmic analysis of stool DNA-biomarkers with hemoglobin immunoassay. ?? Quantitative values of individual biomarkers are not reportable and are not associated with individual biomarker result reference ranges. Cologuard is intended for colorectal cancer screening of adults of either sex, 45 years or older, who are at average-risk for colorectal cancer (CRC). Cologuard has been approved for use by the U.S. FDA. The performance of Cologuard was established in a cross sectional study of average-risk adults aged 50-84. Cologuard performance in patients ages 45 to 49 years was estimated by sub-group analysis of near-age groups. Colonoscopies performed for a positive result may find as the most clinically significant lesion: colorectal cancer [4.0%], advanced adenoma (including sessile serrated polyps greater than or equal to 1cm diameter) [20%] or non- advanced adenoma [31%]; or no colorectal neoplasia [45%]. These estimates are derived from a prospective cross-sectional screening study of 10,000 individuals at average risk for colorectal cancer who were screened with both Cologuard and colonoscopy. (Kevin Josue et al, N Engl J Med 2014;370(14):4773-7253.) Cologuard may produce a false negative or false positive result (no colorectal cancer or precancerous polyp present at colonoscopy follow up). A negative Cologuard test result does not guarantee the absence of CRC or advanced adenoma (pre-cancer). The current Cologuard screening interval is every 3 years. ([place] [employer] Society and U.S. Multi-Society Task Force). Cologuard performance data in a 10,000 patient pivotal study using colonoscopy as the reference method can be accessed at the following location: www.MicroTransponder.Basic-Fit/results. Additional description of the Cologuard test process, warnings and precautions can be found at www.textPlusogSportStylistrd.com. Stool specimen (specimen) 03/08/2023 3:30 PM EST 03/09/2023 7:12 PM EST Toyin Juddjhonny [facility] DRE FRY Final Result [facility] (CLIA #:[id number]) [place] [place] [address], * Mammography Report 1 (05/27/2020 2:30 PM EST) Anatomical Region Laterality Modality Breast Bilateral Mammography 05/27/2020 2:30 PM EST Narrative 05/27/2020 5:07 PM EST Refer to the Notes tab for result details [facility] Procedure: Mammography Report 1 Procedure Note Provider, Tianna, - 06/11/2022 Refer to the Notes tab for result details [facility] Procedure: Mammography Report 1 Historical Provider IMG BI PROCEDURES Final R esult * (ABNORMAL) ALBUMIN, RANDOM URINE W/CREATININE (11/12/2019 10:27 AM EDT) Creatinine, Urine 16(L) 20 - 275 mg/dL [facility] Microalbumin Urine <0.2 See Note: mg/dL [facility] Comment: Reference Range: ?? Reference Range Not established Microalb/Creat Ratio NOTE <30 mcg/mg creat [facility] Comment: NOTE: The urine albumin value is less than ?? 0.2 mg/dL therefore we are unable to calculate ?? excretion and/or creatinine ratio. ?? The ADA defines abnormalities in albumin excretion as follows: ?? Category ? Result (mcg/mg creatinine) ?? Normal ?<30 Microalbuminuria ? 30-299 ?? Clinical albuminuria ?? > OR = 300 ?? The ADA recommends that at least two of three specimens collected within a 3-6 month period be abnormal before considering a patient to be within a diagnostic category. 11/12/2019 10:2 7 AM EDT Sally Meade MD LAB URINE ORDERABLES Final Resul t Performing Organization Address [facility]/ZIP Co de Phone Number [facility] [address] * HPV mRNA E6/E7 (02/20/2019 8:58 AM EST) HPV mRNA E6/E7 Not Detected NOT DETECTED [facility] Comment: This test was performed using the APTIMA(R) HPV Assay ([employer] This assay detects E6/E7 viral messenger RNA (mRNA) from 14 high-risk HPV types (16,18,31,33,35,39,45,51, 52,56,58,59,66,68). For additional information please refer to: http://education.64 Pixels/faq/HIX859j1 (This link is being provided for informational/ educational purposes only.) The analytical performance characteristics of this assay have been determined by [facility] [facility] [place], [place]. The modifications have not been cleared or approved by the FDA. This assay has been validated pursuant to the CLIA regulations and is used for clinical purposes. Test Performed by [facility], [employer] [facility] [place], [address] [place] [address] Randy Willson M.D., Ph.D., Director of Laboratories , CLIA [id number] Please note: ??Effective 11/30/2015, HPV testing will be performed using [employer]'s APTIMA test which targets mRNA. Detecting mRNA instead of DNA, as in older methods, offers significant improvements in specificity. 02/20/2019 8:58 AM EST us Carina Fontaine CNM HISTORICAL/NON ORDERABLE LABS Final Result Performing Organization Address [facility] Co de Phone Number [facility] [address] from Last 3 Months or Most Recently Relevant to Health Maintenance Insurance [facility] C3 Care Teams Consumer Educator Relationship Specialty Start Date End Date Toyin Pollard FNP [address] [place], [place] PCP - General Family Medicine 01/11/21 Satish Brennan MD [address] [place] [address] Endocrinology 02/22/24 Jacob Morrow [address] [place] [address] Pulmonary Disease 02/22/24 Nicolasa Escobar MD [address] [place] [phone] Neurology 02/22/24 Shen Davis MD [address] [place] [address] Drive [address] [place] [address] Nephrology 02/22/24 Ellyn Connolly Pigment Furnace TenderEnvironmental Services Manager 08/17/23 [facility] 01/11/24
--- OUTSIDE RECORDS SUMMARY | 2024-05-01 19:07 | XMS_ITS | Encounter Summary ---
Author Organization [employer] Address [address] [facility] 7t [place] [address] Care Team Providers Care Merchandise Shopper Name Role Phone Toyin Pollard LOUIE Primary Care Provider Satish Brennan MD Unavailable [phone] Jacob Morrow Unavailable [phone] Nicolasa Escobar MD Unavailable Shen Davis MD Unavailable [phone] Reason for Visit * Reason Comments Med Refill Encounter Details Date Type Department Care Team ([facility] st Contact Info) Description 08/24/2023 Refill [facility] MEDICINE [address] [place], [place] [phone] Agustina Toribio MD [address] [place], [place] [phone] Social History Tobacco Use Types Packs/Day Years [...] 2:30 PM EST Clinical Support [facility] [address] [place] [address] 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, MINA [address] [place] [address] documented as of this encounter Goals Goal [...] documented as of this encounter Care Teams Merchandise Shopper Relationship Specialty Start Date End Date Toyin Pollard FNP [address] [place] [address] PCP - General Family Medicine 01/11/21 Satish Brennan MD [address] [place] [address] Endocrinology 02/22/24 Jacob Morrow [address] [place] [address] Pulmonary Disease 02/22/24 Nicolasa Escobar MD [address] [place] [address] Dr [facility] [address] [place], [place] [phone] Neurology 02/22/24 Shen Davis MD [address] [place] [address] Nephrology 02/22/24 Ellyn Connolly Care Management SpecialistPenology Professor 08/17/23 [facility] 01/11/24 01/21/24 [facility] 01/11/24 documented as of this encounter
--- OUTSIDE RECORDS SUMMARY | 2024-05-01 19:07 | XMS_ITS | Encounter Summary ---
Author Organization [employer] Address [address] [facility] 7t [place] [address] Care Team Providers Care Target Protection Specialist Name Role Phone Toyin Pollard Primary Care Provider Satish Brennan MD Unavailable [phone] Jacob Morrow Unavailable [phone] Nicolasa Escobar MD Unavailable Shen Davis MD Unavailable [phone] Reason for Visit * Reason Onset Date Comments Durable Medical Equipment 12/19/2023 Encounter Details Date Type Department Care Team ([facility] st Contact Info) Description 12/19/2023 Telephone [facility]EDS [address] [place], [place] [phone] Toyin Pollard FNP [address] [place], [place] [phone] Durable Medical Equipment Social History Tobacco Use [...] * Telephone Encounter - Hemalatha Minor - 12/19/2023 10:27 AM EDT Tc from lakshmi case monitor calling to see if DME can be which to mass surgical supply due to [facility] not doing delivery. DME Disposable bed pads documented in this encounter Plan of Treatment Upcoming Encounters Date Type Department Care Team (Late st Contact Info) Description 05/21/2024 2:30 PM EST Clinical Support [facility] MED & PEDS [address] [place] [address] 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, MINA [address] [place] [address] documented as of this encounter Goals Goal Patient Goal Type Associated Problems Recent Progress Patient-Stated? Author Hemoglobin A1c < 7 Result Component 6.4(08/02/2023 4:30 PM EDT) No Michelle Alegria, PharmD documented as of this encounter Visit Diagnoses Not on filedocumented in this encounter Additional Health Concerns Assessment Noted Time PHQ-9 Depression Total Score: 13 08/01/ 024 4:37 PM EDT documented as of this encounter Care Teams Target Protection Specialist Relationship Specialty Start Date End Date Toyin Pollard FNP [address] [place] [address] PCP - General Family Medicine 01/11/21 Satish Brennan MD [address] [place] [address] Endocrinology 02/22/24 Jacob Morrow [address] [place] [address] Pulmonary Disease 02/22/24 Nicolasa Escobar MD [address] [facility] [address] [facility] 140 [place] [address] Neurology 02/22/24 Shen Davis MD [address] [place] [address] Nephrology 02/22/24 Ellyn Connolly WeathercasterInnovation Analyst 08/17/23 [facility] 01/11/24 01/21/24 [facility] 01/11/24 documented as of this encounter
--- OUTSIDE RECORDS SUMMARY | 2024-05-01 19:07 | XMS_ITS | Encounter Summary ---
Author Organization [employer] Address [address] [facility] 7t [place] [address] Care Team Providers Care Waste Treatment Operator Name Role Phone Toyin Pollard LOUIE Primary Care Provider [phone] Satish Brennan MD Unavailable [phone] Jacob Morrow Unavailable [phone] Nicolasa Escobar MD Unavailable [phone] Shen Davis MD Unavailable [phone] Reason for Visit * Reason Comments Med Refill Encounter Details Date Type Department Care Team ([facility] st Contact Info) Description 08/21/2023 Refill [facility] MEDICINE [address] [place], [place] [phone] Agustina Toribio MD [address] [place], [place] [phone] Social History Tobacco Use Types Packs/Day Years [...] 05/21/2024 2:30 PM EST Clinical Support [facility] MED & PED[facility] [address] [place] [address] 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, MINA [address] [place] [address] documented as of this encounter Goals Goal [...] documented as of this encounter Care Teams Waste Treatment Operator Relationship Specialty Start Date End Date Toyin Pollard FNP [address] [place] [address] PCP - General Family Medicine 01/11/21 Satish Brennan MD [address] [place] [address] Endocrinology 02/22/24 Jacob Morrow [address] [place] [address] Pulmonary Disease 02/22/24 Nicolasa Escobar MD [address] [place] [address] Dr [facility] 140 [place], [place] [phone] Neurology 02/22/24 Shen Davis MD [address] [place] [address] Nephrology 02/22/24 Ellyn Connolly Automotive Parts Counter AssociateAcademic Intern 08/17/23 [facility] 01/11/24 01/21/24 [facility] 01/11/24 documented as of this encounter
--- OUTSIDE RECORDS SUMMARY | 2024-05-01 19:07 | XMS_ITS | Encounter Summary ---
Author Organization [employer] Address [address] [facility] 7t [place] [address] Care Team Providers Care Online Facilitator Name Role Phone Toyin Pollard Primary Care Provider Satish Brennan MD Unavailable Jacob Morrow Unavailable [phone] Nicolasa Escobar MD Unavailable Shen Davis MD Unavailable [phone] Reason for Visit * Reason Onset Date Comments FYI 01/25/2024 Encounter Details Date Type Department Care Team (Late st Contact Info) Description 01/25/2024 Telephone [facility] MEDICINE [address] [place], [place] [phone] Toyin Pollard FNP [address] [place], [place] [phone] FYI Social History Tobacco Use Types Packs/Day [...] t he electric, gas, oil or water [employer] threatened to shut off services in your [...] encounter Miscellaneous Notes * Telephone Encounter - Cooper Kurtz - 01/25/2024 1:45 PM EST TC from [facility] with [facility] wanted to report pt Discharged from [facility] on 01/22/24 . Had a Cast on right ankle and was removed due to numbness. Pt now has a boot on . documented in this encounter Plan of Treatment Upcoming Encounters Date Type Department Care Team (Late st Contact Info) Description 05/21/2024 2:30 PM EST Clinical Support [facility] MED & PEDS [address] [place] [address] 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, RN [address] [place] [address] documented as of this encounter Goals Goal [...] documented as of this encounter Care Teams Online Facilitator Relationship Specialty Start Date End Date Toyin Pollard FNP [address] [place] [address] PCP - General Family Medicine 01/11/21 Satihs Brennan MD [address] [place] [address] Endocrinology 02/22/24 Jacob Morrow [address] [place] [address] Pulmonary Disease 02/22/24 Nicolasa Escobar MD [address] [place] [address] [facility] [address] [place] [address] Neurology 02/22/24 Shen Davis MD [address] [place] [address] Nephrology 02/22/24 Ellyn Connolly Group Leader Wafer PolishingFlute Teacher 08/17/23 [facility] 01/11/24 documented as of this encounter
--- OUTSIDE RECORDS SUMMARY | 2024-05-01 19:07 | XMS_ITS | Encounter Summary ---
Author Organization [employer] Address [address] [facility] 7t [place] [address] Care Team Providers Care Farmworker Name Role Phone Toyin Pollard Primary Care Provider Satish Brennan MD Unavailable Jacob Morrow Unavailable [phone] Nicolasa Escobar MD Unavailable Shen Davis MD Unavailable [phone] Reason for Visit * Reason Comments Med Refill Encounter Details Date Type Department Care Team (Late st Contact Info) Description 04/12/2024 Refill [facility] MEDICINE [address] [place] [address] Toyin Pollard FNP [address] [place], [place] [phone] Long-term current use of opiate analgesic (Primary Dx); Pain; Calculus of gallbladder without cholecystitis without obstruction Social History Tobacco Use Types Packs/Day Years [...] is your housing situation today? I have ecsar andersen 01/02/[address] you [...] encounter Miscellaneous Notes * Telephone Encounter - LOUIE Finley - 04/12/2024 5:16 PM EST Please schedule for [facility], thanks! documented in this encounter Plan of Treatment Upcoming Encounters Date Type Department Care Team (Late st Contact Info) Description 05/21/2024 2:30 PM EST Clinical Support [facility] MED & PEDS [address] [place] [address] 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 RN [address] [place] [address] documented as of this encounter Goals Goal Patient Goal Type Associated Problems Recent Progress Patient-Stated? Author Hemoglobin A1c < 7 Result Component 6.4(08/02/2023 4:30 PM EDT) No Michelle Alegria, PharmD documented as of this encounter Visit Diagnoses Diagnosis Long-term current use of opiate analgesic- Primary Encounter for long-term (current) use of other medications Pain Generalized pain Calculus of gallbladder without cholecystitis without obstruction documented in this encounter Additional Health Concerns Assessment Noted Time PHQ-9 Depression Total Score: 13 024 4:37 PM EDT documented as of this encounter Care Teams Farmworker Relationship Specialty Start Date End Date Toyin Pollard FNP [address] [place] [address] PCP - General Family Medicine 01/11/21 Satish Brennan MD [address] [place] [address] Endocrinology 02/22/24 Jacob Morrow 5 [place] [address] Pulmonary Disease 02/22/24 Nicolasa Escobar MD [address] [place] [address] [address] [facility] [address] [place] [address] Neurology 02/22/24 Shen Davis MD [address] [place] [address] Nephrology 02/22/24 Ellyn Connolly Larriman HelperFireproof Door Assembler 08/17/23 [facility] 01/11/24 documented as of this encounter
--- OUTSIDE RECORDS SUMMARY | 2024-05-01 19:07 | XMS_ITS | Encounter Summary ---
Author Organization [employer] Address [address] [facility] 7[address] [place] [address] Care Team Providers Care Behavior Specialist Name Role Phone Toyin Pollard Primary Care Provider Satish Brennan MD Unavailable [phone] Jacob Morrow Unavailable [phone] Nicolasa Escobar MD Unavailable Shen Davis MD Unavailable [phone] Encounter Details Date Type Department Care Team (Late st Contact Info) Description 04/15/2024 Telephone [facility] [address] [place], [place] [phone] Toyin Pollard FNP [address] [place], [place] [phone] Social History Tobacco Use Types Packs/Day Years [...] encounter Miscellaneous Notes * Telephone Encounter - Fifi Morrow - 04/15/2024 9:21 AM EST FYI to PCP - Patient unable to be contacted for MTM The pharmacy team has made >3 attempts to schedule patient for visit with pharmacy staff. At this time no further outreach attempts will be made until a new referral is sent. Voicemail/letter to patient today to notify them; they may also call in at later date if interestedin scheduling an appointment at a future time. documented in this encounter Plan of Treatment Upcoming Encounters Date Type Department Care Team ([facility] st Contact Info) Description 05/21/2024 2:30 PM EST Clinical Support [facility] MED & PEDS [address] [place] [address] Mragret Hector, MINA [address] [place] [address] documented as of this encounter Goals Goal [...] documented as of this encounter Care Teams Behavior Specialist Relationship Specialty Start Date End Date Toyin Pollard FNP [address] [place] [address] PCP - General Family Medicine 01/11/21 Satish Brennan MD [address] [place] [address] Endocrinology 02/22/24 Jacob Morrow 5 [place] [address] Pulmonary Disease 02/22/24 Nicolasa Escobar MD [address] [place] [address] Dr [facility] [address] [place] [address] Neurology 02/22/24 Shen Davis MD [address] [place] [address] Nephrology 02/22/24 Ellyn Connolly Prototype EngineerChange Manager 08/17/23 [facility] 01/11/24 documented as of this encounter
--- OUTSIDE RECORDS SUMMARY | 2024-05-01 19:07 | XMS_ITS | Encounter Summary ---
Author Organization [employer] Address [address] [facility] 7[address] [place] [address] Care Team Providers Care Water Mechanic Name Role Phone Toyin Pollard LOUIE Primary Care Provider Satihs Brennan MD Unavailable Jacob Morrow Unavailable [phone] Nicolasa Escobar MD Unavailable Shen Davis MD Unavailable [phone] Encounter Details Date Type Department Care Team (Late st Contact Info) Description 04/20/2022 Orders Only [facility] MEDICINE [address] [place] [address] Patrica Grimaldo LPN Social History Tobacco Use [...] Description 05/21/2024 2:30 PM EST Clinical Support [facility] MED & PEDS [address] [place] [address] 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, RN [address] [place] [address] documented as of this encounter Visit Diagnoses Not on filedocumented in this encounter Care Teams Water Mechanic Relationship Specialty Start Date End Date Toyin Pollard FNP [address] [place] [address] PCP - General Family Medicine 01/11/21 Satish Brennan MD [address] [place] [address] Endocrinology 02/22/24 Jacob Morrow 5 [place] [address] Pulmonary Disease 02/22/24 Nicolasa Escobar MD [address] [place] [address] [address] Neurology 02/22/24 Shen Davis MD [address] [place] [address] Nephrology 02/22/24 Ellyn Connolly Form TamperPoker Machine Attendant 08/17/23 [facility] 01/11/24 01/21/24 [facility] 01/11/24 documented as of this encounter
--- OUTSIDE RECORDS SUMMARY | 2024-05-01 19:07 | XMS_ITS | Data Portability ---
Author Organization [facility], Main Office Address [address] [place] [address] Care Team Providers Care Safe Deposit Box Rental Clerk Name Role Phone [facility] Primary Care Provider [phone] Assessment No assessment recorded. Plan of Treatment Reminders Order Date Submit Date Provider Last Modified By Organization Details Last Modified Time Details Appointments None record ed. Lab None record ed. Referral None record ed. Procedures None record ed. Surgeries None record ed. Imaging None record ed. Medication Orders None record ed. Patient TargetsNo targets recorded. Patient Instructions Encounter Date Encounter Id Patient Instructions Last Modified By Organization Details Last Modified Time 04/28/2021 [id number] CBCD, CMP in am -last Mg therapeutic on diuretics, no need to repeat Total time spent 25 minutes, >50% in [id number] counseling and coordination of care [email or web address] Not available 04/28/2021 14:36:22 05/12/2021 [id number] F/U Appointments : PCP TBD Total time spent on discharge: 40 minutes No scripts needed [email or web address] Not available 05/12/2021 16:53:45 Reason for Referral None Reported. Problems Name Problem SNOMED Code Status Onset Date Resolution Date Notes Provider Name and Address Organization Details Recorded Time Obstructive sleep apnea syndrome 50455135 Active 2019 Michelle Jeanne [address] [facility], [address], [place], [address], [facility] [employer] 0 08:58:54 Acute hypercapnic respiratory failure 290285100 Active 2019 Michelle Mineral [address] [facility], [address], [place], [address], [facility] [employer] 0 08:59:55 Closed fracture of left ankle 4327117038283 9108 Active [address], [address], [place], [address], [facility] 0 09:03:18 COVID-19 110249291 Active [address], [address], [place], [address], [facility] 0 09:03:58 Hyperkalemi a 56197322 Active [address], [address], [place], [address], [facility] 0 09:05:45 Syncope and collapse 852754524 Active [address], [address], [place], [address], [facility] 0 09:06:17 Hypothyroid ism 38638831 Active [address], [address], [place], [address], [facility] 0 09:07:04 Essential hypertensio n 08059989 Active [address], [address], [place], [address], [facility] 0 09:08:10 Mixed hyperlipide matilde 567057674 Active [address], [address], [place], [address], [facility] 0 09:08:25 Bipolar disorder 28672604 Active [address], [address], [place], [address], [facility] 0 09:09:02 Type 2 diabetes mellitus without complicatio n 645397183 Active [address], [address], [place], [address], [facility] 0 09:13:23 Asthma 735338897 Active [address], [address], [place], [address], [facility] 0 09:13:44 Type 2 diabetes mellitus 33220722 Active 2021 Becka Zafar MD [address], [place], [address], [facility] 2 20:52:53 Morbid obesity 586219385 Active 2021 Becka Zafar MD [address], [address], [place], [address], [facility] 2 20:53:24 Schizoaffec tive disorder, bipolar type 75162674 Active 2021 Becka Zafar MD [address], [address], [place], [address], [facility] 2 21:21:28 Tobacco dependence syndrome 28020245 Active 2021 Becka Zafar MD [address], [address], [place], [address], [facility] 2 21:22:00 Chronic obstructive pulmonary disease 38421808 Active 2021 Becka Zafar MD [address], [address], [place], [address], [facility] 2 21:25:49 Moderate persistent asthma 932583301 Active 2021 Becka Zafar MD [address], [address], [place], [address], [facility] 2 21:25:50 Depressive disorder 63310280 Active 2021 Becka Zafar MD [address], [address], [place], [address], [facility] 2 21:26:11 Chronic constipatio n 733016206 Active 2021 Becka Zafar MD [address], [address], [place], [address], [facility] [employer] [facility] 2 21:26:21 Vitamin D deficiency 16064821 Active 2021 Becka Zafar MD [address], [address], [place], [address], [facility] 2 21:27:35 Gastroesoph ageal reflux disease without esophagitis 932463830 Active 2021 Becka Zafar MD [address], [address], [place], [address], [facility] 2 21:28:05 Coronary arterioscle rosis 31385265 Active 2021 Becka Zafar MD [address], [address], [place], [address], [facility] 2 21:35:19 Allergic rhinitis 16601858 Active 2021 Becka Zafar MD [address] [facility], [address], [place], [address], [facility] 2 21:36:27 Edema of lower extremity 762556771 Active 2021 Becka Zafar MD [address], [place], [address], [facility] 2 21:36:46 Cholelithia sis without obstruction 64756440 Active 2021 Becka Zafar MD [address] [facility], [address], [place], [address], [facility] 2 21:43:26 Chronic back pain 981740653 Active 2021 Becka Zafar MD [address] [place] [address], [address], [place], [address], [facility] 2 21:44:01 Problem Notes None recorded. Medical Equipment None Reported. Allergies Allergen ID Allergen Name Allergen Category Reaction Reaction Severity Criticality Documentation Date Start Date Code Code System Note Provider Name and Address Organization Details Recorded Time metformin medicatio n diarrhea hives Not available Not available Not available 03/07/2020 6809 RxNorm Not Available Not Available Not Available Haldol medicatio n Not available Not available Not available 03/07/2020 20062 9 RxNorm irrit abili ty Not Available Not Available Not Available latex environme nt,medica tion rash Not available Not available 03/07/2020 48551 91 RxNorm Not Available Not Available Not Available 16741 morphine medicatio n rash Not available Not available 04/25/2021 7052 RxNorm Not Available Not Available Not Available 36985 tetracycl ine medicatio n hives Not available Not available 04/25/2021 43850 RxNorm Not Available Not Available Not Available Medications Name Sig Start Date Stop Date Status Note LastModified by Organization Details LastModified Time Latuda 40 mg tablet active [facility] Latuda Not Available Not Available Not Available Vitals Date Recorded Body height Body mass index (BMI) Body weight Heart rate Respiratory rate Body temperature Oxygen saturation Oxygen saturation in Arterial blood by Pulse oximetry Systolic blood pressure Diastolic blood pressure Provider Name and Address Organization Details Last Updated DateTime 2 170.18 cm 59.2 kg/m2 758311. 63 g 65 /min 18 /min 97.2 [degF] 96 % 96 % 119 mm[Hg] 52 mm[Hg] Becka Zafar MD [address] [facility], [facility] [address], [place], [address], [facility] 2 12:35:25 Date Recorded Body height Oxygen saturation Oxygen saturation in Arterial blood by Pulse oximetry Systolic blood pressure Diastolic blood pressure Provider Name and Address Organization Details Last Updated DateTime 2 170.18 cm 90 % 90 % 119 mm[Hg] 52 mm[Hg] SHAISTA LUJAN PA-C [address] [facility], [facility] [address], [place], [address], [facility] 2 13:53:10 Date Recorded Body height Oxygen saturation Oxygen saturation in Arterial blood by Pulse oximetry Systolic blood pressure Diastolic blood pressure Provider Name and Address Organization Details Last Updated DateTime 2 170.18 cm 91 % 91 % 119 mm[Hg] 52 mm[Hg] SHAIST[facility] LUJAN [facility]C [facility] [address], [place], [address], [facility] 2 12:51:39 Date Recorded Body height Respiratory rate Body temperature Heart rate Oxygen saturation Oxygen saturation in Arterial blood by Pulse oximetry Systolic blood pressure Diastolic blood pressure Provider Name and Address Organization Details Last Updated DateTime 2 170.18 cm 18 /min 97.3 [degF] 65 /min 96 % 96 % 119 mm[Hg] 52 mm[Hg] Verenice Adrian wade [facility] 2 12:29:49 Date Recorded Body height Body mass index (BMI) Body weight Heart rate Respiratory rate Body temperature Oxygen saturation Oxygen saturation in Arterial blood by Pulse oximetry Systolic blood pressure Diastolic blood pressure Provider Name and Address Organization Details Last Updated DateTime 2 170.18 cm 59.5 kg/m2 107845. 1 g 71 /min 18 /min 97.1 [degF] 90 % 90 % 128 mm[Hg] 87 mm[Hg] SHAISTA LUJAN PA-C [address], [place], [address], [facility] 2 16:18:59 Social History Question Answer Notes LastModified by Organization Details LastModified Time Tobacco Smoking Status Current Every Day Smoker Michelle Jeanne [address], [place], [address], [facility] 03/07/2020 09:16:33 Do You Have An Advance Directive? Yes [email or web address] Information not available 04/25/2021 What Is Your Level Of Alcohol Consumption? None [email or web address] Information not available 04/25/2021 What Is Your Code Status? Full Code All Treatments [email or web address] Information not available 04/25/2021 Do You Or Have You Ever Used E-cigarettes Or Vape? Never Used Electronic Cigarettes Information not available 03/07/2020 Where Do You Live? [facility] Information not available 05/05/2021 Legal Guardian? No Information not available 05/05/2021 Do You Have A Medical Power Of Photo Mask Inspector? Yes Information not available 03/07/2020 What Was The Date Of Your Most Recent Tobacco Screening? 04/23/2021 [email or web address] Information not available 04/25/2021 Do You Have An Out Of Hospital DNR? No [email or web address] Information not available 04/25/2021 Do You Or Have You Ever Used Smokeless Tobacco? Never Used Smokeless Tobacco Information not available 03/07/2020 How Much Tobacco Do You Smoke? 0.5 PPD [email or web address] Information not available 04/25/2021 Has Tobacco Cessation Counseling Been Provided? Yes Information not available 04/25/2021 On What Date Was Tobacco Cessation Counseling Provided? 04/23/2021 [email or web address] Information not available 04/25/2021 How Many Years Have You Smoked Tobacco? 30 Information not available 03/07/2020 Do You Or Have You Ever Used Any Other Forms Of Tobacco Or Nicotine? No [email or web address] Information not available 04/25/2021 Sex: Unknown Functional Status None recorded. Mental Status None recorded. Family History Relationship Description Onset Age of this Age Resolved Age Notes LastModified by Organization Details LastModified Time Sister Malignant tumor of ovary [email or web address] Not available 2021 19:38:51 Medical History No medical history recorded. Gynecological HistoryNo gynecological history recorded. Obstetrics History GPAL:G 0 P 0 0 0 0 Immunizations Vaccine Type Date Status Note Provider Nam e and Address Organization Details Recorded Time COVID-19, mRNA, LNP-S, PF, 30 mcg/0.3 mL dose 04/01/2020 completed SHAISTA LUJAN PA-C [address] [facility], [address], [place], [address], [facility] 04/25/2021 19:22:57 COVID-19, mRNA, LNP-S, PF, 30 mcg/0.3 mL dose 11/20/2020 completed SHAISTA LUJAN PA-C [address], [address], [place], [address], [facility] 04/25/2021 19:33:52 COVID-19, mRNA, LNP-S, PF, 30 mcg/0.3 mL dose 02/24/2021 completed SHAISTA LUJAN PA-C [address], [address], [place], [address], [facility] 04/25/2021 19:34:02 Past Encounters Encounter ID Performer Location Encounter Start Date Encounter Closed Date Diagnosis/Indication Diagnosis SNOMED-CT Code Diagnosis ICD10 Code Diagnosis Note [id number] Michelle Keenanette [facility] on [address] [place] [address] 03/07/2020 08:38:10 03/27/2020 08:36:17 COVID-19 385300626 U07.1 +02/27/20c ompleted course of remdesivir and decadronf/ u cards outpatient for ECHO after isolationm onitor resp status Acute hype rcapnic respiratory failure 463380461 J96.02 see HPIseconda ry to covid. pulmonary edemadiure sed with lV lasix, Tx above for covid txCPAP Essential hypertension 00344731 I10 atenolol 50 mg qd, with hold parameters lasix 40 mg qdlisinopr il 10 mg qdmonitor BPs Hypothyroidism 80270719 E03.9 on replacemen t. monitor Bipolar disorder 9997478 4 F31.9 amitriptyl ine 10 mg qdbenztrop ine 2 mg BIDdepakot e 500 mg in am 1000 mg at HSescitalo pram 10 mg qdhydroxyz ine 50 mg tid prnprazosi n 4 mg at HSseroquel 300 mg at HStrazodon e 1-2 tabs at HS? med management contributi ng to syncopal episodesps ych eval prn Tobacco user 859092467 Z 72.0 90 pack year Hx. encourage cessation. monitor Obstructiv e sleep apnea syndrome 24766178 G47.33 has CPAPmonito r Hyperkalemia 17871378 E8 7.5 resolved in acute caremonito r labs Closed fra cture of left ankle 7130575305 8204083 S82.892D see HPIortho rec's for non surgical management repeat xray in 1 weekf/o ortho outpatient LLE NWBPT OT to eval and treatoxyco done and APAP prn for pain.monit or Syncope and collapse 309 851925 R55 see HPIunclear etiology? med management monitor for recurrence Type 2 johnny betes mellitus without complication 368437979 E11.9 glimepirid e 1 mg in am 4 mg at dinnerglar gine 20 U at HSmonitor accuchecks TID Mixed hyperlipidemia 267 263249 E78.2 on statin. monitor Asthma 473807703 J45.90 9 symbicort dailyspiri va qdsingulai r qd flonase qdmonitor resp status [id number] Emely Loyola MD [facility] on [address] [place] [address] 03/11/2020 06:27:35 03/27/2020 08:52:50 Asthma 755633083 J45.30 albuterol HFA 2 puffs a4h prnSymbico rt 160-4.5: 2 puffs bidmontelu kast 10 mg dailytiotr opium 2 puffs dailywill monitor Closed fra cture of left ankle 5164517279 7341797 S82.892D oxycodone 5 mg q4h prnPT/OT fu ortho COVID-19 156588778 U07.1 recovering after treatment with remdesivir and dexamethas onewill continue to monitor closely Essential hypertension 44952571 I10 furosemide 40 mg dailylisin opril 10 mg dailyateno lol 50 mg dailywill monitor Hypothyroidism 56240541 E03.8 levothyrox ine 137 mcg dailywill monitor Mixed hyperlipidemia 267 932217 E78.2 atorvastat in 20 mg dailywill monitor Type 2 johnny betes mellitus without complication 413103419 E11.9 Lantus 20U qhsglimepi ride 1 mg in morning and 4 mg in eveningwil l monitor Schizoaffe ctive disorder 23785589 F25.8 benztropin e 2 mg bidquetiap ine 300 mg at hs prazosin 4 mg at hsdivalpro ex 500 mg in afternoon and 1000 mg in eveningLat uda 50 mg dailysee meds for mixed anxiety and depressive disorder Mixed anxi ety and depressive disorder 683683236 F41.8 citalopram 10 mg dailytrazo done 50 mg at hshydroxyz ine 50 mg q8h prnamitrip tyline 10 mg at hssee meds for schizoaffe ctive disorderwi monitor [id number] Kae Combs [facility] on [address] [place] [address] 03/16/2020 16:00:58 03/26/2020 16:02:23 Intertrigo 21732002 L30.4 Add Nystatin power BID for 10 days. Monitor to resolution Closed fra cture of left ankle 8523677685 2945816 S82.892D oxycodone 5 mg q4h prncont PT/OT fu ortho needs to be scheduled COVID-19 376936115 U07.1 recovering after treatment with remdesivir and dexamethas oneresp status stable-not requiring Z6ehvkqon recovered Essential hypertension 05827701 I10 furosemide 40 mg dailylisin opril 10 mg dailyateno lol 50 mg dailyBP stable, monitor Type 2 johnny betes mellitus without complication 897378707 E11.9 Lantus 20U qhsglimepi ride 1 mg in morning and 4 mg in eveningAdd blood sugars BID [id number] Kae Combs [facility] on [address] [place] [address] 03/23/2020 13:03:40 03/27/2020 09:40:26 Closed fracture of left ankle 6690524542 5765986 S82.892D Remains NWB on LLEcont PT/OT Has ortho f/u scheduled 04/01Decrea se oxycodone 5 mg Q6h PRN COVID-19 312900853 U07.1 recovering after treatment with remdesivir and dexamethas oneresp status stable-not requiring H2vwimjap recovered Essential hypertension 40001337 I10 furosemide 40 mg dailylisin opril 10 mg dailyateno lol 50 mg dailyBP stable, monitor Type 2 johnny betes mellitus without complication 508237446 E11.9 Lantus 20U qhsglimepi ride 1 mg in morning and 4 mg in eveningBlo od sugars well controlled Monitor [id number] Kae Combs [facility] on [address] [place] [address] 03/24/2020 14:32:40 03/27/2020 11:02:54 Edema of lower extremity 698445751 R60.0 Increase lasix 40 mg dailyMonit or Loose stool 155286801 R1 9.5 Obtain stool for c. diffIf neg, can add imodium PRNMonitor [id number] Kae Combs [facility] on [address] [place] [address] 04/03/2020 11:00:15 04/06/2020 15:10:08 Closed fracture of left ankle 3459973843 8163643 S82.892D Remains NWB on LLEHas ortho f/u scheduled 2/3Decreas e oxycodone 5 mg Q8h PRN x 3 days then Q12h PRN COVID-19 174995023 U07.1 recovering after treatment with remdesivir and dexamethas oneresp status stable-not requiring Z5tbdzlxe recovered Essential hypertension 64778233 I10 furosemide 40 mg dailylisin opril 10 mg dailyateno lol 50 mg dailyBP stable, monitor Type 2 johnny betes mellitus without complication 535261850 E11.9 Lantus 20 U qhsglimepi ride 1 mg in morning and 4 mg in eveningBlo od sugars well controlled Monitor Edema of l ower extremity 420847165 R60.0 Lasix 40 mg dailyAdd compressio n stocking to RLE [id number] Kae Combs [facility] on [address] [place] [address] 04/07/2020 14:06:25 04/10/2020 13:44:07 Closed fracture of left ankle 8039591388 4884919 S82.892D Remains NWB on LLEHas ortho f/u scheduled 2/3Oxycodo ne Q12h PRN COVID-19 374453674 U07.1 recovering after treatment with remdesivir and dexamethas oneresp status stable-not requiring P6zmbddkx recovered Type 2 johnny betes mellitus without complication 908475113 E11.9 Lantus 20 U qhsglimepi ride 1 mg in morning and 4 mg in eveningBlo od sugars well controlled Monitor Edema of l ower extremity 429390455 R60.0 Lasix 40 mg dailyCompr ession stocking to RLE [id number] STACY SALEH [facility] on [address] [place] [address] 04/10/2020 12:43:03 04/13/2020 16:35:27 Closed fracture of left ankle 3605340052 7101109 S82.892D Remains NWB on LLEHas ortho f/u scheduled 2/3Oxycodo ne Q12h PRN- DO NOT SEND [facility] HOME, D/C ON DISCHARGE COVID-19 602440429 U07.1 recovering after treatment with remdesivir and dexamethas oneresp status stable-not requiring N3njlfkdx recovered Type 2 johnny betes mellitus without complication 789669423 E11.9 Lantus 20 U qhsglimepi ride 1 mg in morning and 4 mg in eveningBlo od sugars well controlled Edema of l ower extremity 188410274 R60.0 Lasix 40 mg dailyCompr ession stocking to RLE Asthma 209427572 J45.30 albuterol HFA 2 puffs a4h prnSymbico rt 160-4.5: 2 puffs bidmontelu kast 10 mg dailytiotr opium 2 puffs daily Essential hypertension 08194574 I10 furosemide 40 mg dailylisin opril 10 mg dailyateno lol 50 mg daily Hypothyroidism 63788956 E03.8 levothyrox ine 137 mcg dailY Mixed hyperlipidemia 267 975076 E78.2 atorvastat in 20 mg daily Schizoaffe ctive disorder 35165549 F25.8 benztropin e 2 mg bidquetiap ine 300 mg at hs prazosin 4 mg at hsdivalpro ex 500 mg in afternoon and 1000 mg in eveningLat uda 50 mg dailysee meds for mixed anxiety and depressive disorder Mixed anxi ety and depressive disorder 124073961 F41.8 citalopram 10 mg dailytrazo done 50 mg at hshydroxyz ine 50 mg q8h prnamitrip tyline 10 mg at hssee meds for schizoaffe ctive disorder [id number] SHAISTA LUJAN PA-C [facility] on [address] [place] [address] 04/23/2021 16:28:13 04/27/2021 13:13:44 Recurrent falls 111705294 R29.6 PT/OT Type 2 johnny betes mellitus without complication 748505911 E11.9 Monitor sugars and adjust meds prnOn EMILIE-I for renal protection Morbid obesity 574180505 E66.01 Outpatient f/u with PCP Essential hypertension 95485006 I10 Monitor BPs and adjust meds prn Hypothyroidism 97543278 E03.9 Consider TSH Obstructiv e sleep apnea syndrome 25416539 G47.33 Needs CPAP Migraine 92990136 G43.90 9 f/u prn Schizoaffe ctive disorder, bipolar type 93552748 F25.0 Consider psych consult Tobacco de pendence syndrome 67550146 F17.200 Counseled 5 minutes on the importance of cessation; not interested in quitting Chronic ob structive pulmonary disease 54119339 J44.9 inhalersf/ u prn Depressive disorder 3548 9007 F32.A No SI/HI/AH/V H Chronic constipation 236 767324 K59.09 scheduled and prn bowel medsf/u prn Vitamin D deficiency 347 06959 E55.9 RepletingO utpatient f/u prn Insomnia c o-occurrent and due to medical condition 2189306673 9105 G47.01 Melatonin Gastroesop hageal reflux disease without esophagitis 777491882 K21.9 Not on medsMonito r and f/u prn Liver enzy mes level above reference range 911686762 R74.01 Normal LFTs on recent labs Coronary arteriosclerosis 90887944 I25.10 Statinclar jonas of supposed to be on ASANot on B-delia Moderate p ersistent asthma 762713715 J45.40 as above Allergic rhinitis 674694 04 J30.9 f/u prn Edema of l ower extremity 218298189 R60.0 f/u prn Advance care planning 71 7482518 Z71.89 Met with patient, who is her own decision-messi wilson, in her room. Reviewed each section of the MOLST and answered questions to her satisfacti on. Form completed, signed, and orders written to reflect the following: Full code with all interventi ons. Total time spent 18 minutes [id number] [facility] on [address] [place] [address] 04/26/2021 14:30:31 05/13/2021 12:50:11 Recurrent falls 911765583 R29.6 PT/OT eval and txsafety precaution s Type 2 johnny betes mellitus without complication 251259903 E11.9 lispro sliding scalelantu s QHSmonitor for s/s of hyper/hypo glycemiaOn EMILIE-I for renal protection Morbid obesity 545460430 E66.01 Outpatient f/u with PCPencoura ge weight loss Essential hypertension 52818006 I10 atenolol 50mg dailylisin opril 10mg qhsMonitor BPs and adjust meds prn Hypothyroidism 51265476 E03.9 monitor TSH prnlevothy roxine 137mcg daily Obstructiv e sleep apnea syndrome 16888035 G47.33 CPAP qhsmonitor sleep pattern Migraine 78815026 G43.90 9 monitor for s/sAPAP prn Schizoaffe ctive disorder, bipolar type 35113379 F25.0 amytripyli ne 10mg qhscitalop cammie 10mg dailyprazo sin 5mg qhsmonitor mood and behaviorps [facility] prn Tobacco de pendence syndrome 87741098 F17.200 encourage cessation Chronic ob structive pulmonary disease 99645110 J44.9 inhalersf/ u prn Moderate p ersistent asthma 119082213 J45.40 monitor resp statusmoni tor labs prn Depressive disorder 3548 9007 F32.A amytripyli ne 10mg qhscitalop cammie 10mg dailyprazo sin 5mg qhsmonitor mood and behaviorps [facility] prn Chronic constipation 236 522479 K59.09 has been experienci ng bouts of diarrheamo nitor bowel pattern Vitamin D deficiency 347 85677 E55.9 monitor levels prn Insomnia c o-occurrent and due to medical condition 1091498414 9105 G47.01 Melatoninm onitor sleep pattern Gastroesop hageal reflux disease without esophagitis 954208011 K21.9 Not on medsmonito r for GI s/s Liver enzy mes level above reference range 125626048 R74.01 Normal LFTs on recent labsmonito r labs prn Coronary arteriosclerosis 98087190 I25.10 atorvastat in 20mg qhsclarify of supposed to be on ASA - ? Allergic rhinitis 303040 04 J30.9 f/u prnmonitor for s/s Edema of l ower extremity 576751316 R60.0 follow weights [id number] Becka Zafar MD [facility] on [address] [place] [address] 04/27/2021 12:32:27 05/13/2021 13:08:56 Recurrent falls [id number] R29.6 Very deconditio deepika.Needs PT/OT for strengthen ing, balance, gait training, safety and function.C ontinue fall precaution s.Monitor for safety. Morbid obesity [id number] E66.01 Z68.43 As above. Essential hypertension 40379128 I10 Good control on lasix 40 mg qd, prazosin 5 mg qd and lisinopril 10 mg qd.Monitor BP and labs. Hypothyroidism 22759370 E03.8 Continue levothyrox ine 137 mcg qd.Monitor TSH yearly. Obstructiv e sleep apnea syndrome 86346486 G47.33 Needs CPAP, will see if we can arrange Migraine 66376261 G43.80 9 No current sxs.Amitri pyline and depakote can both be used for prophylaxi s for this, but is primarily on them for mood stabilizer s.Monitor for sxs. Schizoaffe ctive disorder, bipolar type 89130961 F25.0 Continue citalopram 10 mg qd, amitriptyl ine 10 mg qhs, Seroquel 400 mg qhs, Melatonin 5 mg qhs,Latuda 60 mg qam, Depakote 500 mg po q 12 pm and 1000 mg qhs, and Cogentin 1 mg BID.Monito r mood and behaviors. Psych consult Tobacco de pendence syndrome 54794633 F17.210 Not interested in quittingCo ntinue to encourage cessation. Chronic ob structive pulmonary disease 56128377 J43.8 At baseline.C ontinue Singulair 10 mg qd, Symbicort 160-4.5 mcg 2 puffs BID, Spiriva 18 mcg qd and albuterol MDI 2 puffs q 4 hrs prn.Montio r resp. status. Moderate p ersistent asthma 677973639 J45.40 as above. Depressive disorder 3548 9007 F33.1 As above. Chronic constipation 236 484802 K59.09 Continue scheduled and prn bowel medsMonito r bowel function. Vitamin D deficiency 347 56559 E56.8 Continue Vit D 2000 IU qd.Monitor levels. Gastroesop hageal reflux disease without esophagitis 819428317 K21.9 No current sxs on no medsMonito r and f/u prn Coronary arteriosclerosis 42572287 I25.10 Continue meds as above and atorvastat in 20 mg qd.Conside r addition of cardioprot ective meds as above and also ASA and beta delia.Mo nitor for sxs.F/U with cardio as planned. Allergic rhinitis 722318 04 J30.89 Continue singulair as above.Meme tor sxs Edema of l ower extremity 370116537 R60.0 Continue lasix and lisinopril as above.Meme tor Type 2 johnny betes mellitus 33632973 E11.65 Will restart humulin SSI, will increase dose to compare more closely with previous humalog dose, but not restarting premeal humalog yet.Increa se lantus from 40U to 52U.Contin ue glimepirid e 4 mg qd.Conside r adding GLP-1 or SGLT-2 both for better blood sugar control and cardioprot ective effect.Mon itor accuchecks QIDEncoura ge healthy eating and physical activity. Chronic back pain 633838 002 M54.59 Continue APAP and tramadol as above.F/U with pain clinic as planned.Co ntinue to encourage wt. loss and physical activity. Cholelithi asis without obstruction 94222232 K80.20 Not a candidate for elective surgery per surgeon.Co ntinue tramadol 50 mg BID prn and APAP 650 mg q 6 hrs prn.Monito r sxs. [id number] SHAISTA LUJAN PA-C [facility] on [address] [place] [address] [phone] 3 04/28/2021 13:49:24 05/13/2021 14:05:59 Acute urinary tract infection [id number] N39.0 U/A not overly impressive Will decrease Bactrim to 3-day total since not a complicate d UTI-cautio n since hx hyperkalem ia and concomitan t EMILIE-I-adju st if needed when sensitivit ies are available- benefits of antibiotic s outweigh risks of non-treatm ent in this patientAdd Probiotic bid x 6 daysDifluc an 150 mg po x 1 for the yeast-ok despite increased risk of QT prolongati on with Seroquel, Latuda, and Elavil-1-t herbie dose and had recent normal EKGMonitor and f/u prn Uncontroll ed type 2 diabetes mellitus 607660181 E11.65 Sugars globally elevatedAd d hs fingerstic k with correction al insulinInc rease Lantus from 40 ux qhs to 52 ux qhs (based on total coverage 24 ux x 24 hours at 50%)-given body habitus, might benefit from divided dosingMoni tor sugars and adjust meds prnOn EMILIE-I for renal protection Diarrhea 15922604 R19.7 Hold scheduled bowel meds for loose stoolsCola ce changed from scheduled to prn yesterdayd /c Imodium after 1 week [id number] SHAISTA LUJAN PA-C [facility] on [address] [place] [address] [phone] 3 04/29/2021 12:50:48 05/13/2021 14:30:13 Acute urinary tract infection 099589192 N39.0 Resistant to BactrimLik ellie colonized with E. coli rather than true UTI; however, will finish treating-d /c Bactrim-st art macrobid 100 mg po bid x 5 days for simple UTI-benefi ts of abx outweigh risks of non-treatm ent in this patient-no need to extend probiotic since low-risk c-diff with nitrofuran toinMonito r and f/u prn Uncontroll ed type 2 diabetes mellitus 926259296 E11.65 Lantus increased yesterdayM onitor sugars and adjust meds prnOn EMILIE-I for renal protection [id number] Verenice Cid [facility] on [address] [place] [address] [phone] 3 05/05/2021 12:24:28 05/14/2021 09:59:59 Anxiety 44474610 F41.9 pt reporting anxiety and states she has order for prn seroquel at home; found in home medsholdin g off on seroquel now as she had frequent falls at homeadding hydroxyzin e 25mg po bid prnmonitor for effectmoni tor mood and behaviorps [facility]n [id number] SHAISTA LUJAN PA-C [facility] on [address] [place] [address] [phone] 3 05/12/2021 16:16:13 05/14/2021 11:26:53 Uncontrolled type 2 diabetes mellitus 533019215 E11.65 Consider split-dose basal insulinMon itor sugars and adjust meds prnOn EMILIE-I for renal protection Recurrent falls 09809656 2 R29.6 PT/OT Chronic ob structive pulmonary disease 75777423 J44.9 continue inhalersf/ u prn Health Concerns Section Related Observation LastModified by Organization Detai ls LastModified Time None Recorded Concern Status LastModified by Organization Details LastModified Time None Recorded Advance Directives Directive Y: Payers Encounter Date Sequence Insurance Name Policy Number Policy Weston Covered Member ID Weston Member ID Guarantor Name 04/27/2021 1 [place] [facility] Elle Lopez [id number] Elle Lopez 04/28/2021 1 [place] [facility] Elle Lopez [id number] Elle Lopez 04/29/2021 1 [place] [facility] Elle Lopez [id number] Elle Lopez 05/05/2021 1 [place] [facility] Elle Lopez [id number] Elle Lopez 05/12/2021 1 [place] [facility] Elle Lopez [id number] Elle Lopez Notes Date Note Type Note Provider Name and Address Organization Details Recorded Time 04/27/2021 text/html This is a 51 yo woman who is here for rehab after an ED visit for frequent falls with bilateral knee pain. She is known to us from a stay here 03/06/20-04/11/20 after a left ankle fx. She had also tested positive for COVID on 02/29/20 and got remdesivir and dexamethasone. She presented [facility] on 04[place]22 due to frequent falls. Eval found elevated BS, mild MAYLIN, improved with IV fluid and insulin. No other acute findings. No evidence of DKA. Referred here for STR.Discussed not getting humalog (at home took 12U before meals if BS<400 and 18U if >400, and also used humulin SSI). Also diarrhea, UTI sxs, vaginal bleeding, thinks from them wiping her too hard, hasn't had period in 6 months. Also rash and raw area under right breast and under right side of pannus.Of note, she has chronic issues with SI joint pain and knee pain, has had steroid injections through [facility] pain clinic. Most recently SI joint injection in 01/2021.Since here she has been participating with rehab, but is limited by pain and fatigue.Her PMH includes HTN, uncontrolled AODM (FwB2P89.6), CHF, s/p COVID 02/2020, asthma, bipolar disorder, schizoaffective disorder, anxiety, PTSD, unsteady gait, migraines, ADHD, morbid obesity, MORGAN on CPAP, hypothyroidism, DM, hypertension, chronic back pain-s/p SI joint injections, with cholelithiasis-not surgical candidate per surgeon-being txed with tramadol, and frequent falls. Becka Zafar MD [address] [place] [address], [address], [place], [address], [employer] 05/05/2021 21:44:55 04/28/2021 text/html Pt seen for acut e rounding visit today for dysuria and DM. Pt with PMHx relevant for DM2 without known complication. Meds reviewed and include:Amaryl 1 mg po q 1700Lantus 40 ux SQ qhsCorrectional Humalog-per EMAR review, pt has used 24 ux over last 24 h and uses approximately 20 ux/d coverage C/O dysuria yesterday for which U/A was ordered and for which Bactrim DS po bid x 5 days was added by for suspected UTI. Prn Imodium also added. No new complaints today. No hematuria, abd pain, flank pain, or back pain. No f/c/s. SHAISTA LUJAN PA-C [address] [facility], [address], [place], [address], [employer] 04/28/2021 14:37:05 04/29/2021 text/html Pt seen for acut e rounding visit today for UTI. Pt with dysuria earlier this week at which time she was commenced on Bactrim by . Diabetes meds adjusted yesterday (see note for details.) Pt denies dysuria, hematuria, back/abd/flank pain, f/c/s. SHAISTA LUJAN PA-C [address] [facility], [address], [place], [address], [facility] [employer] 04/29/2021 13:36:17 05/05/2021 text/html Elle is juan luisin linden seen for an acute rounding visit today. Elle is stating that she is experiencing anxiety. She reports having seroquel prn at home but not here. Will trial hydroyzine 25mg bid prn and monitor for effect. Would hold off for now on adding prn seroquel as she was with frequent falls at home. Verenice santiago [facility] [employer] 05/05/2021 12:35:21 05/12/2021 text/html Pt seen today fo r discharge. Admit Date: 04/23/21 Discharge/Service Date: 05/12/21 for 05/13/21 discharge Principle Discharge Diagnosis: Bilateral knee pain; Repeated falls Secondary Discharge Diagnoses: DM2; Morbid obesity; Dyslipidemia; MORGAN; HTN; Migraine headaches; Schizoaffective D/O, Bipolar Type; Tobacco use d/o; COPD; Depression; Chronic constipation; Vit D def; Insomnia; Hypothyroidism; GERD; Goiter; Hepatitis; Hx L fibula fx; PTSD; Umbilical hernia; Hx patella fx; Hx DE; Hx tubal ligation; Hx knee surgery; Hx cordelia stomatitis; Moderate-persistent asthma; Eczema; OA; Cholelithiasis, not a surgical candidate so on tramadol per surgeon; Infrarenal aortic aneurysm; Hx L ankle fracture and dislocation; Hx acute otitis externa L ear; Hx bilateral tubal ligation; Allergic rhinitis; Osteoporosis; ADHD; Chronic back pain; Hx acute hypercapneic respiratory failure; Hx hyperkalemia; Hx syncope; Hx acute COVID-19 infection 02/2020; BLE edema; Hx UTI Hospital Patient Received From: [facility] ED Attending MD: Dr. Cooper Goodson/Shaista Lujan PA-C Medications Started at [facility]: Nystatin powder; Bactrim; Imodium; Diflucan; Probiotic; Macrobid; Hydroxyzine Medications Discontinued at [facility] & Why: Imodium (non-use); Bactrim (Ucx resistant); Macrobid (completed course); Probiotic (completed course); Diflucan (completed course); Thiamine (completed adequate course); Colace (loose stools); Melatonin (non-use) Dose Changes: Correctional insulin adjusted; Lantus increased Med changes prior to admit: none Discharge Medication List:Elavil 10 mg po qhsAtenolol 50 mg po q 1230Lipitor 20 mg po qhsCogentin 1 mg po q 1230 and qhsCelexa 10 mg po q amDepakote ER 500 mg po q 1230 and 1000 mg po qhsFolate 1 mg po q amLasix 40 mg po q amAmaryl 4 mg po q 1700Lantus 52 ux SQ qhsLatuda 60 mg po q amLevoxyl 137 mcg po q amLisinopril 10 mg po qhsSingulair 10 mg po qhsMVI 1 po q amPrazosin 5 mg po qhsSeroquel 400 mg po qhsSpiriva 18 mcg 1 inhalation q amVit D3 2000 ux po q amNystatin powder bid under breastsand to groinSymbicort 160-4.5 mcg 2 puffs bidCorrectional HumalogHydroxyzine 25 mg po q 12 h prn anxiety O2CPAP at hs PCP Head? s Up: Diabetes remains poorly controlled due to dietary non-adherence. Given body habitus, consider split-dose Lantus Post-Acute Summary: Admitted for subacute rehab. Participated and progressed in PT/OT (see their discharge summaries for details.) Tx for acute UTI and cordelia vaginitis. Pain controlled. Lantus increased although pt did not consistently follow a diabetic diet. Prn hydroxyzine added for anxiety with effect. Discharging home tomorrow with meds and services. Home Health Certification: Dx as above; Seen this am by [facility]-registered Shaista Lujan PA-C NPI# [id number]; Last MD visit 04/27/21; senior living for medication management and reconciliation and teaching; diabetes management; PT: home exercise program for gait training and increasing muscle strength and needs home environment assessment to determine need for assistive devices; OT for increased independence with ADLs; Home-bound due to needs assistance to navigate uneven sidewalks and curbs and is unable to propel self in wheelchair Consultants Involved: none Tests/Labs Needing to be Ordered or Followed by PCP: per PCP discretion Services Ordered at Discharge: [facility] Diet: carb controlled, regular texture, thin liquids Activity: wheelchair SHAISTA LUJAN PA-C [address] [facility], [address], [place], [address], [facility] [employer] 05/12/2021 16:58:12 OBGyn Episode No OBEpisode recorded.
--- OUTSIDE RECORDS SUMMARY | 2024-05-01 19:07 | XMS_ITS | Encounter Summary ---
Author Organization [employer] Address [address] [facility] 7t [place] [address] Care Team Providers Care Chemical Pumper Name Role Phone Toyin Pollard LOUIE Primary Care Provider [phone] Satish Brennan MD Unavailable [phone] Jacob Morrow Unavailable [phone] Nicolasa Escobar MD Unavailable Shen Davis MD Unavailable [phone] Encounter Details Date Type Department Care Team ([facility] Contact Info) Description 05/23/2022 Orders Only [facility] [address] [place] [address] Ellyn Chery LPN Social History Tobacco Use [...] Upcoming Encounters Date Type Department Care Team ([facility] Contact Info) Description 05/21/2024 2:30 PM EST Clinical Support [facility] [address] [place] [address] 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, MINA [address] [place] [address] documented as of this encounter Visit Diagnoses Not on filedocumented in this encounter Care Teams Chemical Pumper Relationship Specialty Start Date End Date Toyin Pollard FNP [address] [place] [address] PCP - General Family Medicine 01/11/21 Satish Brennan MD [address] [place] [address] Endocrinology 02/22/24 Jacob Morrow [address] [place] [address] Pulmonary Disease 02/22/24 Nicolasa Escobar MD [address] [place] [address] Dr Melo [address] [place] [address] Neurology 02/22/24 Shen Davis MD [address] [place] [address] Nephrology 02/22/24 Ellyn Connolly BreasterOffice Services Manager 08/17/23 [facility] 01/11/24 01/21/24 [facility] 01/11/24 documented as of this encounter
--- OUTSIDE RECORDS SUMMARY | 2024-05-01 19:07 | XMS_ITS | Encounter Summary ---
Author Organization [employer] Address [address] [facility] 7t [place] [address] Care Team Providers Care Customer Service Supervisor Name Role Phone Toyin Pollard Primary Care Provider Satish Brennan MD Unavailable [phone] Jacob Morrow Unavailable [phone] Nicolasa Escobar MD Unavailable Shen Davis MD Unavailable [phone] Reason for Visit * Reason Onset Date Comments Forms/questionnaires 03/03/2022 Encounter Details Date Type Department Care Team (Late st Contact Info) Description 03/03/2022 Telephone [facility] MEDICINE [address] [place] [address] Toyin Pollard FNP [address] [place], [place] [phone] Forms/questionnaires Social History Tobacco Use Types Packs/Day Years Used Date Smoking Tobacco: Never Assessed Comments Unknown Sex and Gender Information Value Date Recorded Sex Assigned at Female 01/17/2022 10:36 AM EDT Legal Sex Female 10:36 AM EDT Gender Identity Female 01/17/2022 10:36 AM EDT Sexual Orientation Straight 01/17/2022 10 :36 AM EDT documented as of this encounter Miscellaneous Notes * Telephone Encounter - Macarena Smyth LPN - 03/03/2022 3:55 PM EST Sending to Mela Abdul RN since this is [facility] follow up. Thank you. * Telephone Encounter - Hemalatha Minor - 03/03/2022 12:07 PM EST Tc from Naye from [facility] requesting status on 485 form . States they have faxed several times since November and have not yet received back . Informs needs by 03/15/22 if not pt will be discharged from services. Best contact number [phone]. There fax number is [phone] . documented in this encounter Plan of Treatment Upcoming Encounters Date Type Department Care Team (Late st Contact Info) Description 05/21/2024 2:30 PM EST Clinical [facility] [address] [place] [address] 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 RN [address] [place] [address] documented as of this encounter Visit Diagnoses Not on filedocumented in this encounter Care Teams Customer Service Supervisor Relationship Specialty Start Date End Date Toyin Pollard FNP [address] [place] [address] PCP - General Family Medicine 01/11/21 Satish Brennan MD [address] [facility] [address] [place] [address] Endocrinology 02/22/24 Jacob Morrow [address] [place] [address] Pulmonary Disease 02/22/24 Nicolasa Escobar MD [address] [place] [address] Dr Kameron [address] [place] [address] Neurology 02/22/24 Shen Davis MD [address] [place] [address] Nephrology 02/22/24 Ellyn Connolly Machine Tool DesignerElementary School Principal 08/17/23 [facility] 01/11/24 01/21/24 [facility] 01/11/24 documented as of this encounter
--- OUTSIDE RECORDS SUMMARY | 2024-05-01 19:07 | XMS_ITS | Encounter Summary ---
Author Organization [employer] Address [address] [facility] 7t [place] [address] Care Team Providers Care Assembler Dielectric Heater Name Role Phone Toyin Pollard Primary Care Provider Satish Brennan MD Unavailable Jacob Morrow Unavailable [phone] Nicolasa Escobar MD Unavailable Shen Davis MD Unavailable [phone] Reason for Visit * Reason Onset Date Comments MRI order 10/03/2022 FYI 10/03/2022 Encounter Details Date Type Department Care Team (Late st Contact Info) Description 10/03/2022 Telephone [facility] MEDICINE [address] [place], [place] [phone] Toyin Pollard FNP [address] [place], [place] [phone] MRI order ; Social History Tobacco Use Types Packs/Day Years [...] * Telephone Encounter - Yadiel Cartwright - 10/03/2022 2:16 PM EDT Tc from [facility] MRI Dept foam cutting supervisor would like to inform PCP that pt was unable to get MRI done ,due to being a closed scanner , States will be faxing order to [facility] since they have a MRI scanner that is open. Advised will leave message as a FYI if any questions or concerns please contact at [phone] * Telephone Encounter - Azalea Guerrero RN - 10/03/2022 2:05 PM EDT [facility] received updated order. * Telephone Encounter - Clara Simmons - 10/03/2022 9:34 AM EDT Tc from racheal with [facility] requesting a new order for MRI abdomin. States MRI has to be MRI abdomin with and without contrast. She is also requesting a call in regards to ct scan done at [facility]. Please contact racheal at [phone] Fax number: [phone] documented in this encounter Plan of Treatment Upcoming Encounters Date Type Department Care Team (Late st Contact Info) Description 05/21/2024 2:30 PM EST Clinical Support [facility] PEDS [address] [place] [address] 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, RN [address] [place] [address] documented as of this encounter Visit Diagnoses Not on filedocumented in this encounter Additional Health Concerns Assessment Noted Time PHQ-9 Depression Total Score: 0 09/29/19 23 2:03 PM EDT documented as of this encounter Care Teams Assembler Dielectric Heater Relationship Specialty Start Date End Date Toyin Pollard FNP [address] [place] [address] PCP - General Family Medicine 01/11/21 Satish Brennan MD [address] [place] [address] Endocrinology 02/22/24 Jacob Morrow [address] [place] [address] Pulmonary Disease 02/22/24 Nicolasa Escobar MD [address] [address] Neurology 02/22/24 Shen Davis MD [address] [place] [address] Nephrology 02/22/24 Ellyn Connolly Bag TesterMembership Sales Representative 08/17/23 [facility] 01/11/24 01/21/24 [facility] 01/11/24 documented as of this encounter
--- OUTSIDE RECORDS SUMMARY | 2024-05-01 19:07 | XMS_ITS | Encounter Summary ---
Author Organization [employer] Address [address] [facility] 7t [place] [address] Care Team Providers Care Fiscal Clerk Name Role Phone Toyin Pollard LOUIE Primary Care Provider Satish Brennan MD Unavailable [phone] Jacob Morrow Unavailable [phone] Nicolasa Escobar MD Unavailable Shen Davis MD Unavailable [phone] Reason for Visit * Reason Onset Date Comments decorating kiln operator 04/15/2024 Encounter Details Date Type Department Care Team ([facility] st Contact Info) Description 04/15/2024 Telephone [facility] MED & PEDS [address] [place] [address] 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, RN [address] [place] [address] decorating kiln operator Social History Tobacco Use Types Packs/Day Years [...] the past 12 months, has t he [employer], gas, oil or water ePAR threatened to shut off services in your [...] encounter Miscellaneous Notes * Telephone Encounter - 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 RN - 04/15/2024 4:09 PM EST TC to pt to schedule PROJECT PORTFOLIO ANALYST appt, scheduled for 05/21/24 @ 2:30pm. documented in this encounter Plan of Treatment Upcoming Encounters Date Type Department Care Team (Late st Contact Info) Description 05/21/2024 2:30 PM EST Clinical Support [facility] MED & PEDS [address] [place] [address] 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 RN [address] [place] [address] documented as of this encounter Goals Goal [...] documented as of this encounter Care Teams Fiscal Clerk Relationship Specialty Start Date End Date Toyin Pollard FNP [address] [place] [address] PCP - General Family Medicine 01/11/21 Satish Brennan MD [address] [place] [address] Endocrinology 02/22/24 Jacob Morrow 5 [place] [address] Pulmonary Disease 02/22/24 Nicolasa Escobar MD [address] [place] [address] Dr Kamer[address] [place] [address] Neurology 02/22/24 Shen Davis MD [address] [place] [address] Nephrology 02/22/24 Ellyn Connolly Power Switchboard OperatorSignal Operator Technical 08/17/23 [facility] 01/11/24 documented as of this encounter
--- OUTSIDE RECORDS SUMMARY | 2024-05-01 19:07 | XMS_ITS | Encounter Summary ---
Author Organization [employer] Address [address] [facility] [address] [place] [address] Care Team Providers Care Job Estimator Name Role Phone Toyin Pollard Primary Care Provider [phone] Satish Brennan MD Unavailable [phone] Jacob Morrow Unavailable [phone] Nicolasa Escobar MD Unavailable Shen Davis MD Unavailable [phone] Reason for Visit * Reason Onset Date Comments PT1 08/19/2022 Encounter Details Date Type Department Care Team (Late st Contact Info) Description 08/19/2022 Telephone [facility] [address] [place] [address] Toyin Pollard FNP [address] [place], [place] [id number] PT1 Social History Tobacco Use Types Packs/Day [...] encounter Miscellaneous Notes * Telephone Encounter - Jaqueline Marina - 08/19/2022 10:53 AM EDT Tc from patient stating insurance has correct home address but transportation doesn't. Teleservices Representative is resubmitting PT1. PT1 Date: Time: address:[address] [facility] specialty:PCP # visits: peach grower: yes Wheelchair: yes PT1 Date: Time: address: [address] [facility] specialty: Superintendent Institution # visits: peach grower:yes Wheelchair:yes PT1 Date: Time: address: [address] [facility] specialty: Exhibit Technician/ Diabetes # visits: peach grower:yes Wheelchair:yes PT1 Date: Time: address:[address] [facility] specialty: Speech and hearing # visits: peach grower:yes Wheelchair:yes documented in this encounter Plan of Treatment Upcoming Encounters Date Type Department Care Team (Late st Contact Info) Description 05/21/2024 2:30 PM EST Clinical Support [facility] [address] [place] [address] 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, RN [address] [place] [address] documented as of this encounter Visit Diagnoses Not on filedocumented in this encounter Care Teams Job Estimator Relationship Specialty Start Date End Date Toyin Pollard FNP [address] [place] [address] PCP - General Family Medicine 01/11/21 Satish Brennan MD [address] [facility] [address] [place] [address] Endocrinology 02/22/24 Jacob Morrow [address] [place] [address] Pulmonary Disease 02/22/24 Nicolasa Escobar MD [address] [place] [address] [place] [address] Neurology 02/22/24 Shen Davis MD [address] [place] [address] Nephrology 02/22/24 Ellyn Connolly Emd TeacherGlobal Climate Change Analyst 08/17/23 [facility] 01/11/24 01/21/24 [facility] 01/11/24 documented as of this encounter
[2024-05-01 22:14] VITALS: BP 108/64; PULSE 85; RESP 20; O2SAT 95
[2024-05-01] MEDS: methocarbamoL 750 MG TABLET PO (23:26)
[2024-05-01] MEDS: Ketorolac Tromethamine 15 MG/ML VIAL IM (23:27)
--- NOTE | 2024-05-02 01:19 | ED.GENADULT ---
HPI - General Adult General Chief complaint: Back Pain/Injury Stated complaint: 12/27 lower back pain, radiates to legs Time Seen by Provider: 05/01/24 20:10 Source: patient Limitations: no limitations History of Present Illness ED Provider: Layne Chambers PA-C HPI narrative: 54-year-old female with a history of morbid obesity, primarily bed-bound at baseline, diabetes, hepatitis, hypertension, prior STEMI, ADHD, PTSD, schizoaffective who presents with left hip and leg pain. Patient states she woke with her left leg hanging off the bed in an abnormal position. She pulled her leg back into bed, then developed acute onset left hip pain that radiates down the left lower extremity. Pain is described as a burning sensation, consistent with prior sciatica symptoms. Patient denies back pain, weakness of lower extremity, bowel incontinence, urinary retention. Related Data Home Medications ?Medication ?Instructions ?Recorded ?Confirmed amitriptyline 10 mg tablet 10 mg PO BEDTIME 01/10/20 12/22/23 benztropine 1 mg tablet 1 mg PO BID@1200,2100 01/10/20 12/22/23 lisinopril 10 mg tablet 10 mg PO BEDTIME 01/10/20 12/22/23 montelukast 10 mg tablet 10 mg PO BEDTIME 01/10/20 12/22/23 multivitamin 1 tab PO DAILY@1200 01/10/20 12/22/23 atenolol 50 mg tablet 50 mg PO DAILY@1200 04/20/21 12/22/23 docusate sodium 100 mg capsule 100 mg PO DAILY PRN Constipation 04/20/21 12/22/23 folic acid 1 mg tablet 1 tab PO DAILY 04/20/21 12/22/23 furosemide 40 mg tablet 1 tab PO DAILY 04/20/21 12/22/23 lurasidone 60 mg tablet (Latuda) 60 mg PO DAILY@0800 04/20/21 12/22/23 melatonin 5 mg tablet 10 mg PO BEDTIME PRN insomnia 04/20/21 12/22/23 prazosin 5 mg capsule 1 cap PO BEDTIME 04/20/21 12/22/23 alendronate 70 mg tablet 1 tab PO MO@0600 04/22/21 12/22/23 diclofenac sodium 1 % topical gel 2 g topical BID Pain 04/22/21 12/22/23 fluticasone propionate 50 1 spray intranasal DAILY PRN 04/22/21 12/22/23 mcg/actuation nasal ALLERGIES spray,suspension hydroxyzine HCl 50 mg tablet 1 - 2 tab PO TID PRN Anxiety, 04/22/21 12/22/23 Sleep, Agitation cholecalciferol (vitamin D3) 50 50 mcg PO DAILY 07/20/21 12/22/23 mcg (2,000 unit) tablet acetaminophen 500 mg tablet 500 mg PO Q6H PRN Pain 09/08/21 12/22/23 lidocaine 5 % topical patch 1 patch topical DAILY 09/08/21 12/22/23 Oxygen Home Use 03/25/22 09/29/22 nebulizers 03/25/22 09/29/22 cetirizine 10 mg tablet 10 mg PO DAILY PRN allergies 09/08/22 12/22/23 divalproex 250 mg tablet,extended 750 mg PO DAILY@1200 09/08/22 12/22/23 release 24 hr nicotine (polacrilex) 4 mg gum 4 mg PO Q2H PRN Nicotine Cravings 09/08/22 12/22/23 prazosin 1 mg capsule 1 mg PO BEDTIME 09/08/22 12/22/23 econazole nitrate 1 % topical cream 1 appl topical BID 03/30/23 11/01/23 ammonium lactate 12 % lotion 1 appl topical DAILY PRN Dry Skin 11/01/23 12/22/23 atorvastatin 40 mg tablet 40 mg PO DAILY 11/01/23 12/22/23 lorazepam 1 mg tablet 1 mg PO DAILY PRN panic attack 11/01/23 12/22/23 naproxen 500 mg tablet 500 mg PO BID 11/01/23 12/22/23 nystatin 100,000 unit/gram topical 1 appl topical BID 11/01/23 12/22/23 powder rimegepant 75 mg disintegrating 75 mg PO NEEDED migraine 11/01/23 12/22/23 tablet (Nurtec ODT) topiramate 50 mg tablet 50 mg PO DAILY 11/01/23 11/01/23 quetiapine 100 mg tablet 100 mg PO DAILY@1200 PRN Anxiety 12/22/23 12/22/23 insulin glargine U-300 conc 300 64 unit subcut DAILY 01/10/24 01/10/24 unit/mL (3 mL) subcutaneous pen (Toujeo Max U-300 SoloStar) Previous Rx's ?Medication ?Instructions ?Recorded leg brace (Ankle Brace) #1 ea 01/22/20 pen needle, diabetic 32 gauge x #125 ea 04/01/22 (BD Ultra-Fine Mary Pen Needle) blood-glucose sensor (FreeStyle #2 ea 04/12/23 Todd 3 Sensor device) tramadol 50 mg tablet 50 mg PO BID PRN Pain #60 tabs 11/04/23 blood sugar diagnostic (FreeStyle #100 strips 11/30/23 Precision Ronny Strips) divalproex 250 mg tablet,extended 750 mg (3 x 250 mg) PO BEDTIME #90 12/26/23 release 24 hr tabs hospital bed #1 ea 12/26/23 quetiapine 300 mg tablet 300 mg PO BEDTIME #30 tabs 12/26/23 tirzepatide 7.5 mg/0.5 mL 7.5 mg (0.5 mL) subcut QWEEK 28 12/26/23 subcutaneous pen injector days #2 mL (Mounjaro) flash glucose sensor (FreeStyle #2 kits 01/04/24 Todd 2 Sensor kit) insulin lispro 100 unit/mL 14 unit (0.14 mL) subcut TIDWMEAL 01/10/24 subcutaneous pen (Humalog KwikPen 30 days #15 mL (U-100) Insulin) albuterol sulfate 90 mcg/actuation 2 puff inhalation Q4H PRN 01/29/24 aerosol inhaler (Ventolin HFA) Shortness Of Breath Or Wheezing 30 days #8.5 grams budesonide 160 mcg-glycopyr 9 2 inh inhalation BID 30 days #10.7 01/29/24 mcg-formot 4.8 mcg/actuation HFA grams inhaler (Breztri Aerosphere) Tirosint 150 mcg capsule 150 mcg PO DAILY #30 caps 04/02/24 (levothyroxine) ketorolac 10 mg tablet 10 mg PO Q6H PRN pain #20 tabs 05/02/24 methocarbamol 750 mg tablet 1,500 mg (2 x 750 mg) PO TID PRN 05/02/24 pain, moderate #24 tabs Allergies Allergy/AdvReac Type Severity Reaction Status Date / Time metformin Allergy Intermediate Diarrhea Verified 05/01/24 18:46 tetracycline Allergy Intermediate hives Verified 05/01/24 18:46 Latex, Natural Rubber Allergy Rash Verified 05/01/24 18:46 haloperidol [From HALDOL] AdvReac Intermediate Irritable Verified 05/01/24 18:46 Review of Systems Review of Systems: Yes all other systems are reviewed and are negative Constitutional: Constitutional: Denies fatigue and Denies fever(s) Musculoskeletal: Musculoskeletal: Denies back pain, Reports arthralgias, Denies joint swelling, Reports radiating pain into limb and Reports tingling Neurologic: Reports tingling Endocrine: Endocrine: Denies fatigue [facility] Past Medical History Attestation statement: The following information was validated with the patient. Medical History (Updated 05/02/24 @ 01:29 by LIZZETH Mirza) Right fibular fracture Obesity Osteoporosis Hypercapnia COPD (chronic obstructive pulmonary disease) Hypothyroidism Multinodular thyroid HLD (hyperlipidemia) T2DM (type 2 diabetes mellitus) Pneumonitis Chronic respiratory failure Pulmonary nodules Pneumonia Acute and chronic respiratory failure with hypoxia MORGAN on CPAP Morbid (severe) obesity due to excess calories Chronic restrictive lung disease Obesity due to excess calories DM2 (diabetes mellitus, type 2) HLD (hyperlipidemia) Diabetes Goiter Vitamin D deficiency Hypothyroidism Fibula fracture Hx of fracture of patella Back pain GERD (gastroesophageal reflux disease) Hepatitis History of posttraumatic stress disorder (PTSD) Depression Myocardial infarction AAA (abdominal aortic aneurysm) without rupture Morbid obesity Hernia Umbilical hernia PTSD (post-traumatic stress disorder) ADHD Schizo affective schizophrenia Arthritis Migraine Diabetes HTN (hypertension) Gallstone Aortic aneurysm Sleep apnea Asthma Surgical History Hx of knee surgery Hx of tubal ligation History of incision and drainage Tubal ligation status Family History Family History Father Unknown family medical history Mother Unknown family medical history Sister Ovarian cancer Son No problems noted. Son Depression Son Asthma Bipolar 1 disorder ADHD Daughter No problems noted. Daughter Unknown family medical history Daughter Unknown family medical history Daughter No problems noted. Social History Social History Household Members: Unknown / Unable to assess Housing: Unknown / Unable to assess Are you a primary pharmacy customer care specialist to a significant other at home: No Do you presently have visiting nurse or other home services: No Unable to assess alcohol history related to: Unable to respond Alcohol intake: never Patient Tobacco Use Status: Tobacco use Unknown Tobacco use type: Cigarette Cigarette Packs Per Day: 6 Years Smoked: 35 Smoked in Last 30 Days: No e-Cigarette/Vaping Use: Currently Using Use of substances other than those prescribed or required for medical reasons: No Substance Use Type: Marijuana Advance Directives: Yes Advance Directives on File: Yes Advance Directives Date on File: 09/13/21 Do you have a plan to hurt others: No Plan Patient : No service: No Current occupational status: unemployed Physical Exam ED Vital Signs: Vital Signs - 24 hr 05/01/24 18:44 05/01/24 18:47 05/01/24 22:14 Temperature 98.7 F 98.7 F Pulse Rate 73 73 85 Respiratory Rate 20 20 20 Blood Pressure 110/75 110/75 108/64 Pulse Oximetry 96 96 95 Oxygen Delivery Method Room Air Room Air Nasal Cannula Oxygen Flow Rate 8 BMI result Body Mass Index 65.2 Const Other: Awake, appears older than stated age Orientation/consciousness: patient oriented x3 Resp Effort & Inspection: normal respiratory effort Cardio Other: Normal peripheral perfusion Skin Other: Warm dry no rash Neuro General: patient oriented x3, no focal motor deficits and CN's II-XI intact bilaterally Extrem Other: Limited range of motion of both lower extremities, appears to be her baseline secondary to her habitus Psych Other: Cooperative Medications Administered Discontinued Medications Generic Name Dose Route Start Last Admin Trade Name Freq PRN Reason Stop Dose Admin Ketorolac Tromethamine 15 mg 05/01/24 22:50 05/01/24 23:27 Ketorolac Tromethamine 15 Mg/Ml Vial IM 05/01/24 22:51 15 mg ONCE ONE Administration Methocarbamol 750 mg 05/01/24 22:50 05/01/24 23:26 Methocarbamol 750 Mg Tablet PO 05/01/24 22:51 750 mg ONCE ONE Administration Medical Decision Making Medical Decision Making MDM Narrative: 54-year-old female with a history of morbid obesity, primarily bed-bound at baseline, diabetes, hepatitis, hypertension, prior STEMI, ADHD, PTSD, schizoaffective who presents with left hip and leg pain. Patient states she woke with her left leg hanging off the bed in an abnormal position. She pulled her leg back into bed, then developed acute onset left hip pain that radiates down the left lower extremity. Pain is described as a burning sensation, consistent with prior sciatica symptoms. Patient denies back pain, weakness of lower extremity, bowel incontinence, urinary retention. Problem: Morbid obesity bed-bound at baseline, diabetes, psychiatric illness History per patient I have considered the following differential diagnoses: Stress fracture, dislocation, sciatica, cauda equina Plan: Given the patient's habitus, imaging options are limited. I spoke with Radiology who recommends an x-ray, she is unable to fit in our CT scanner. We will be giving Toradol and methocarbamol. She seems comfortable, fracture dislocation are less likely. She is having symptoms of sciatica, without back pain. Thought about cauda equina, however she has no red flag signs symptoms concerning for cord compression at this time. I have independently reviewed the following tests: X-ray pelvis:FINDINGS: No acute fracture. No dislocation. Unremarkable soft tissues. IMPRESSION: No acute findings. This document has been electronically signed by: Eren Tolbert MD on 05/02/2024 00:07:20 Discharge Plan Discharge Clinical Impression: Left sided sciatica Patient Disposition: Home, Self-Care Instructions: Sciatica (ED) Additional Instructions: The x-ray of the hip and pelvis were normal, you are being treated for suspect sciatica. See home care instructions. Use the ketorolac as the anti-inflammatory, take it with food. Use the methocarbamol as needed, this is a muscle relaxant. To note it will cause drowsiness do not drive or operate machinery while taking this medication. Follow up with your primary care provider as needed. Prescriptions: New methocarbamol 750 mg tablet 1,500 mg PO TID PRN (Reason: pain, moderate) Qty: 24 0RF ketorolac 10 mg tablet 10 mg PO Q6H PRN (Reason: pain) Qty: 20 0RF Rx Instructions: maximum total duration of 5 days from all oral, intranasal, or parenteral formulations, patient had an intramuscular dose of Toradol here in the emergency department. No Action (DME) Ankle Brace Misc See Rx Instructions .ROUTE .MEDSUPPLY Qty: 1 0RF Rx Instructions: AIRSELECT, STANDARD, MEDIUM (DME) pen needle, diabetic [BD Ultra-Fine Mary Pen Needle] 32 gauge x 5/32 needle See Rx Instructions .ROUTE .MEDSUPPLY Qty: 125 6RF Rx Instructions: As directed four times a day (DME) FreeStyle Todd 3 Sensor Device See Rx Instructions .Route Qty: 2 4RF Rx Instructions: As directed change every 14 days Mounjaro 7.5 mg/0.5 mL pen injector 7.5 mg subcut QWEEK 28 Days Qty: 2 5RF (DME) FreeStyle Todd 2 Sensor Kit See Rx Instructions .ROUTE .COMPLEX Qty: 2 5RF Dose Instruction: USE DIRECTED CHANGE EVERY 14 DAYS Rx Instructions: USE DIRECTED CHANGE EVERY 14 DAYS Breztri Aerosphere 160-9-4.8 mcg/actuation HFA aerosol inhaler 2 inh inhalation BID 30 Days Qty: 10.7 2RF albuterol sulfate [Ventolin HFA] 90 mcg/actuation HFA aerosol inhaler 2 puff INHALATION Q4H PRN (Reason: Shortness Of Breath Or Wheezing) 30 Days Qty: 8.5 1RF levothyroxine [Tirosint] 150 mcg capsule 150 mcg PO DAILY Qty: 30 1RF multivitamin Tablet 1 tab PO DAILY@1200 amitriptyline 10 mg Tablet 10 mg PO BEDTIME lisinopril 10 mg Tablet 10 mg PO BEDTIME benztropine 1 mg Tablet 1 mg PO BID@1200,2100 montelukast 10 mg Tablet 10 mg PO BEDTIME furosemide 40 mg tablet 1 tab PO DAILY prazosin 5 mg capsule 1 cap PO BEDTIME folic acid 1 mg tablet 1 tab PO DAILY atenolol 50 mg tablet 50 mg PO DAILY@1200 melatonin 5 mg tablet 10 mg PO BEDTIME PRN (Reason: insomnia) lurasidone [Latuda] 60 mg tablet 60 mg PO DAILY@0800 Rx Instructions: WITH 350 CALORIE MEAL docusate sodium 100 mg Capsule 100 mg PO DAILY PRN (Reason: Constipation) alendronate 70 mg tablet 1 tab PO MO@0600 hydroxyzine HCl 50 mg tablet 1 - 2 tab PO TID PRN (Reason: Anxiety, Sleep, Agitation) fluticasone propionate 50 mcg/actuation spray,suspension 1 spray intranasal DAILY PRN (Reason: ALLERGIES) diclofenac sodium 1 % gel 2 g topical BID Protocol: Apply to: Apply to: KNEE, ANKLE, BACK lidocaine 5 % Adhesive Patch,Medicated 1 patch TOPICAL DAILY Protocol: Apply to: Apply to: KNEES AND BACK Rx Instructions: leave on most painful area for up to 12 hrs acetaminophen 500 mg Tablet 500 mg PO Q6H PRN (Reason: Pain) quetiapine 100 mg Tablet 100 mg PO DAILY@1200 PRN (Reason: Anxiety) quetiapine 300 mg Tablet 300 mg PO BEDTIME Qty: 30 0RF divalproex 250 mg Tablet Extended Release 24 Hr 750 mg PO BEDTIME Qty: 90 0RF (DME) hospital bed Kit See Rx Instructions .Route Qty: 1 0RF Rx Instructions: Bariatric bed nicotine (polacrilex) 4 mg gum 4 mg PO Q2H PRN (Reason: Nicotine Cravings) prazosin 1 mg capsule 1 mg PO BEDTIME Rx Instructions: tdd 6mg divalproex 250 mg tablet extended release 24 hr 750 mg PO DAILY@1200 cetirizine 10 mg tablet 10 mg PO DAILY PRN (Reason: allergies) atorvastatin 40 mg tablet 40 mg PO DAILY Nurtec ODT 75 mg tablet,disintegrating 75 mg PO NEEDED Rx Instructions: no more than 1 tablet per 24 hours nystatin 100,000 unit/gram powder 1 appl topical BID ammonium lactate 12 % lotion 1 appl topical DAILY PRN (Reason: Dry Skin) Rx Instructions: 1 APPLICATION = 2 GRAMS lorazepam 1 mg tablet 1 mg PO DAILY PRN (Reason: panic attack) naproxen 500 mg tablet 500 mg PO BID topiramate 50 mg tablet 50 mg PO DAILY tramadol 50 mg tablet 50 mg PO BID PRN (Reason: Pain) Qty: 60 0RF (DME) nebulizers Misc See Rx Instructions .Route Rx Instructions: As directed (DME) Oxygen Home Use Kit See Rx Instructions .Route Rx Instructions: As directed cholecalciferol (vitamin D3) 50 mcg (2,000 unit) tablet 50 mcg PO DAILY insulin lispro [Humalog KwikPen Insulin] 100 unit/mL insulin pen 14 unit subcut TIDWMEAL 30 Days Qty: 15 4RF insulin glargine U-300 conc [Toujeo Max U-300 SoloStar] 300 unit/mL (3 mL) insulin pen 64 unit subcut DAILY econazole nitrate 1 % cream 1 appl topical BID (DME) FreeStyle Precision Ronny Strips Strip See Rx Instructions .ROUTE .COMPLEX Qty: 100 5RF Dose Instruction: TEST BLOOD SUGAR 4 TIMES A DAY DIRECTED Rx Instructions: TEST BLOOD SUGAR 4 TIMES A DAY DIRECTED Print Language: Romanian
[2024-05-02 01:41] VITALS: BP 111/63; PULSE 78; RESP 18; TEMP 36.8; O2SAT 97
[2024-05-02 03:30] VITALS: BP 111/63; PULSE 78; RESP 18; TEMP 36.8; O2SAT 97
== END 2024-05-02 03:30 | disposition home or self-care (01) ==
PROVIDERS: Emergency Provider Emergency Medicine
DX: M54.42 Lumbago with sciatica, left side (principal); R10.2 Pelvic and perineal pain; Z79.899 Other long term (current) drug therapy
CPT/HCPCS: 72170; 96372; 99284; J1885

== ENCOUNTER → 2024-05-01 23:13 | Outpatient (BNV) | payer MEDICAID, SELFPAY | PROVIDERS: Emergency Provider Emergency Medicine; Visit Provider Radiology Diagnostic Radiology | DX: R10.2 Pelvic and perineal pain (principal) | CPT/HCPCS: 72170 ==

== ENCOUNTER 2024-06-28 16:38 | Outpatient (AMB) | payer MEDICAID, SELFPAY ==
--- NOTE | 2024-06-28 10:56 | A.OFFVIS_ITS ---
Intake Visit Reasons: T2DM/Hyperthyroidism Allergies metformin Allergy (Intermediate, Verified 07/24/24 15:59) Diarrhea tetracycline Allergy (Intermediate, Verified 07/24/24 15:59) hives Latex, Natural Rubber Allergy (Verified 07/24/24 15:59) Rash haloperidol (From HALDOL) Adverse Reaction (Intermediate, Verified 07/24/24 15:59) Irritable Medication List - Last Reconciled 08/30/24 by Carly Hardin NP acetaminophen 500 mg PO Q6H PRN albuterol sulfate 90 mcg/actuation (Ventolin HFA) 2 puffs inhalation Q4H PRN 30 days albuterol sulfate 2.5 mg (3 mL) inhalation Q6H PRN 30 days alendronate 1 tab PO MO@0600 amitriptyline 10 mg PO BEDTIME ammonium lactate 12% 1 appl topical DAILY PRN atenolol 50 mg PO DAILY@1200 atorvastatin 40 mg PO DAILY benztropine 1 mg PO BID@1200,2100 blood sugar diagnostic (FreeStyle Lite Strips) As directed qid prn sensor failure, confirm glucose Please dispense as Freestyle PRecision Ronny blood sugar diagnostic (FreeStyle Precision Ronny Strips) TEST BLOOD SUGAR 4 TIMES A DAY DIRECTED hiuwtiliqr-fqdhyjlz-nvlcmuhuiu 160-9-4.8 mcg/actuation (Breztri Aerosphere) 2 inhalations inhalation BID 30 days cetirizine 10 mg PO DAILY PRN cholecalciferol (vitamin D3) 50 mcg PO DAILY diclofenac sodium 1% 2 grams See Protocol topical BID PRN divalproex ER 500 mg PO DAILY@1200 divalproex ER 250 mg PO DAILY@1200 divalproex ER 1,000 mg PO BEDTIME docusate sodium 100 mg PO DAILY PRN econazole nitrate 1% 1 appl topical BID PRN flash glucose sensor (FreeStyle Todd 2 Sensor kit) USE DIRECTED CHANGE EVERY 14 DAYS flash glucose sensor (FreeStyle Todd 2 Sensor kit) As directed every 15 days fluticasone propionate 50 mcg/actuation 1 spray intranasal DAILY PRN folic acid 1 mg PO DAILY furosemide 40 mg PO DAILY hospital bed Bariatric bed hydroxyzine HCl 1 - 2 tabs PO TID PRN insulin glargine U-300 conc (Toujeo Max U-300 SoloStar) 64 units (0.2133 mL) subcut BEDTIME 90 days insulin lispro (Humalog KwikPen (U-100) Insulin) 14 - 24 units subcut TIDWMEAL leg brace (Ankle Brace) AIRSELECT, STANDARD, MEDIUM levothyroxine 150 mcg PO DAILY 90 days lidocaine 5% 2 patches See Protocol topical DAILY lisinopril 10 mg PO BEDTIME lorazepam 1 mg PO DAILY PRN lurasidone (Latuda) 60 mg PO DAILY@0800 melatonin 10 mg PO BEDTIME PRN montelukast 10 mg PO BEDTIME multivitamin 1 tab PO DAILY@1200 naproxen 500 mg PO BID PRN nebulizers As directed nicotine (polacrilex) 4 mg PO Q2H PRN nystatin 1 appl topical BID Oxygen Home Use As directed pen needle, diabetic (BD Ultra-Fine Mary Pen Needle) As directed four times a day prazosin 5 mg PO BEDTIME prazosin 1 mg PO BEDTIME quetiapine 100 mg PO DAILY@1200 PRN quetiapine 300 mg PO BEDTIME rimegepant (Nurtec ODT) 75 mg PO NEEDED PRN scopolamine base 1 patch topical Q3D tirzepatide (Mounjaro) 7.5 mg subcut MO tramadol 50 mg PO BID PRN HPI Comments Details: 53 YO F with PMHx who has agreed to this telehealth visit which was set up at her request. Both patient and provider are in the [facility] and patient is in agreement to have the telehealth appt and is in a safe and secure environment. We were unable to make a video connection so the visit was conducted by telephone due to patient's immobility as she broke 2 of her ankles over the past year and for the most part has been confined to a hospital bed. She is on home O2 Today's visit is for F/U for T2DM, NTMNG and hypothyroidism. The patient was last seen by telephone appt two months ago and which time no change in insulin dosing was made as her freestyle numbers were in good range. Over the past year she has been seen only by telephone visit. Her last in person visit was with Dr. Brennan Blood work was ordered multiple times in the past to evaluate thyroid. She was hospitalized one month ago with uti, electrolytes abnormalities 1) T2DM: Initially diagnosed with T2DM in 2020. Was initially started on treatment with Metformin. She was unable to tolerate this due to GI distress. Glimepiride: ineffective Current regimen TOUJEO 300UNIT/ML 64 units qHS Humalog 14-24 units TID before meals AC Mounjaro 7.5mg weekly She is on a freestyle Todd 2. She reports her sugars have been between 100 and 150. She is not able to access her freestyle meter today as she is bed-bound and in his not near her bed. She reports that she has had no low blood sugars Family history of T2DM in her Sister. Denies retinopathy: last eye exam 1 1/2 yrs . Needs to make appt [facility] Denies neuropathy, last foot exam 03/[address] Brennan's appt. She does not see a patient financial counselor. 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 She reports no significant problems with her feet and no open areas. Denies nephropathy, on Lisinopril 10 mg PO daily. No recent UAC on file. She was seen by Nephrology 09/09 Dr. Davis for resolved hyponatremia due to decreased free water clearance. He recommended avoiding thiazide diuretics and free water restriction. Has HLD, on Atorvastatin 40 mg PO daily. Last LDL 77 as measured on 06/2023 Has CAD. She was evaluated by vascular 09/09. She does have an aortic aneurysm and should she need surgical treatment [place] [facility] [place] would need to be done at a tertiary care facility as her BMI exceeds the equipment at [facility] She has fatty liver and one gallstone 1.8cm. She has a AAA; last imagin.7 if 5.8 last US done several years ago. She has fatty liver and one gallstone 1.8cm. She has osteoporosis on Aldendronate managed by: not managed by Endo. Diet: High in simple carbohydrates. Weight: Stable Has had diabetes education. HIstory per Dr. Brennan 2) Thyroid Nodule:After her initial visit in Endocrine visit she was asked her to have a full set of TFTs completed, as well as a CT of the neck and a barium swallow. She initially failed to do this.? She did have her CT which revealed an enlarged R lobe of the thyroid with mass effect on the esophagus as well as the hypopharynx.? She was referred to Dr. Read for a surgical thyroidectomy.? He reviewed her US and felt that the gland was not significantly enlarged enough to be causing compressive symptoms and recommended against a surgical thyroidectomy. In terms of her hypothyroidism, she was first diagnosed with Hypothyroidism many years ago. Her dose of Levothyroxine is currently 150 mcg. She was on higher doses in the past but at her last visit reported she was taking only 150mcg. ? She had reported she was spacing this appropriately from her iron. She's had poor compliance in the past and as a result TSH was out of range. She completed a levothyroxine absorption test and this was WNL. After that she did admit to poor compliance. She was switched to Tirosint which her insurance has denied. When she was admitted to the hospital one month ago she hadn't been taking thyroid medication and I spoke with hospitalist and advised that she be restarted on her previous dose. At todays' visit she reports she has been taking it every day with no other food or pills. ? 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 CT Neck: 11/18/2019FINDINGS: ? ? This examination is limited without contrast. The thyroid gland is ? ? enlarged and soft tissue contiguous with the upper pole of the right ? ? thyroid lobe extends lateral and posterior to the hypopharynx lower ? ? cervical esophagus, inseparable from the structures for example on ? ? image 67 of series 2. This could reflect an exophytic thyroid tissue ? ? alternative pathology to be better assessed with postcontrast CT or a ? ? neck MRI with and without IV contrast. Suspected mass effect on the ? ? hypopharynx and cervical esophagus by this soft tissue. The trachea ? ? remains midline and patent. Artifact precludes assessment of the ? ? inferior extent of the thyroid lobe including the substernal region ? ? which is not included on this exam. ? ? Possible retropharyngeal course of the internal carotid arteries ? ? bilaterally that should be further assessed with postcontrast CT ? ? imaging or a neck MRA prior to any cervical surgical intervention. ? ? Superficial mucosal spaces not diagnostically assessed without ? ? contrast. ? ? Reversal of the cervical lordosis and multilevel cervical spondylosis. ? ? Metallic nails project through the skin of the lower lips which can be ? ? clinically correlated for piercings in these areas. If considering a ? ? MRI, MR compatibility would need to be determined. [facility] Medical History (Updated 08/06/24 @ 00:01 by Mahesh Nieves) Electrolyte abnormality Adult hypothyroidism Right fibular fracture Obesity Osteoporosis Hypercapnia COPD (chronic obstructive pulmonary disease) Hypothyroidism Multinodular thyroid HLD (hyperlipidemia) T2DM (type 2 diabetes mellitus) Pneumonitis Chronic respiratory failure Pulmonary nodules Pneumonia Acute and chronic respiratory failure with hypoxia MORGAN on CPAP Morbid (severe) obesity due to excess calories Chronic restrictive lung disease Obesity due to excess calories DM2 (diabetes mellitus, type 2) HLD (hyperlipidemia) Diabetes Goiter Vitamin D deficiency Hypothyroidism Fibula fracture Hx of fracture of patella Back pain GERD (gastroesophageal reflux disease) Hepatitis History of posttraumatic stress disorder (PTSD) Depression Myocardial infarction AAA (abdominal aortic aneurysm) without rupture Morbid obesity Hernia Umbilical hernia PTSD (post-traumatic stress disorder) ADHD Schizo affective schizophrenia Arthritis Migraine Diabetes HTN (hypertension) Gallstone Aortic aneurysm Sleep apnea Asthma Surgical History Hx of knee surgery Hx of tubal ligation History of incision and drainage Tubal ligation status Family History Father Unknown family medical history Mother Unknown family medical history Sister Ovarian cancer Son No problems noted. Son Depression Son Asthma Bipolar 1 disorder ADHD Daughter No problems noted. Daughter Unknown family medical history Daughter Unknown family medical history Daughter No problems noted. Social History Household Members: Spouse Caregiver staying overnight: No Housing: Apartment Are you a primary career services director to a significant other at home: No Do you presently have visiting nurse or other home services: Yes (home life per patient) 75 years or older and lives alone: No Unable to assess alcohol history related to: Unable to respond Alcohol intake: never Patient Tobacco Use Status: Former Tobacco user Tobacco use type: Cigarette Cigarette Packs Per Day: 6 Years Smoked: 35 e-Cigarette/Vaping Use: Currently Using Second Hand Smoke Exposure: No Substance Use Type: Marijuana Advance Directives Date on File: 09/13/21 service: No Current occupational status: unemployed Physical Exam Const Other: Deferred. Telephone visit. Patient was in no acute distress and did not appear to have any respiratory difficulty when speaking. She was alert and oriented. Telehealth Telehealth Telehealth Platform: Telephone Location of provider rendering services: practice address Location of patient: address on file Patient Identification confirmed using: Name, : Yes Telehealth method: voice only Patient verbally consented to treatment: Yes Patient verbally consented to billing insurance company: Yes Patient informed of any privacy concerns related to visit: Yes Minutes spent on Phone/Video with Pt.: 30 Assessment & Plan Assessment & Plan (1) Diabetes: Code(s): E11.9 - Type 2 diabetes mellitus without complications Category: Medical Plan: 54-year-old female with diabetes who is currently homebound. Per [place] [facility] review her numbers are in good control. Continue current dosing The patient had an opportunity to ask questions regarding treatment plan. The patient expressed understanding and agreement with the above treatment plan. The patient is aware they should contact our office by phone for worsening glucose readings or for any low blood sugars which may warrant a change in diabetes medication. Compliance is encouraged with medications and any followup testing/consults which may have been ordered. (2) Adult hypothyroidism: Code(s): E03.9 - Hypothyroidism, unspecified Category: Medical Plan: She was counseled on the absolute need to regularly take her thyroid medication on an empty stomach. Her TSH has been elevated in the past and she has been on multiple occasions advised to have additional blood work done. I attempted to do this through her home care agency and was unable to arrange this. She was asked to have her blood work done in the outpatient setting so that we can further adjust her thyroid medication. She was counseled that having an under active thyroid can cause significant problems to her health. She is not able to have an ultrasound in refuses this at this point in time for multinodular goiter. Medications: New insulin glargine U-300 conc (Toujeo Max U-300 SoloStar) 64 units (0.2133 mL) subcut BEDTIME 21 mL 1RF 90 days Changed From insulin lispro 14 units (0.14 mL) subcut TIDWMEAL 30 days 15 mL 4RF E11.9 - Type 2 diabetes mellitus without complications To insulin lispro (Humalog KwikPen (U-100) Insulin) 14-24 units subcutaneously 3 times per day with meals; 18 mL 4RF 30 days E11.9 - Type 2 diabetes mellitus without complications From insulin lispro 14-24 units subcutaneously 3 times per day with meals; 30 days 18 mL 4RF E11.9 - Type 2 diabetes mellitus without complications To insulin lispro (Humalog KwikPen (U-100) Insulin) 14-24 units subcutaneously 3 times per day with meals; 18 mL 4RF 30 days E11.9 - Type 2 diabetes mellitus without complications Coding Level of Care Code Tele Est Pt Level 3 (48383) Complex EM visit Add On G2211 Diagnoses Diabetes E11.9 Adult hypothyroidism E03.9
--- OUTSIDE RECORDS SUMMARY | 2024-06-28 16:41 | XMS_ITS | Encounter Summary ---
Author Organization [employer] Address [address] [facility] 7t [place] [address] Care Team Providers Care Galvanometer Assembler Name Role Phone Toyin Pollard Primary Care Provider Satish Brennan MD Unavailable [phone] Jacob Morrow Unavailable [phone] Nicolasa Escobar MD Unavailable Shen Davis MD Unavailable [phone] Reason for Visit * Reason Onset Date Comments Durable Medical Equipment 12/19/2023 Encounter Details Date Type Department Care Team (Late st Contact Info) Description 12/19/2023 Telephone [facility] MED & PEDS [address] [place], [place] [phone] Toyin Pollard FNP [address] [place], [place] [phone] Durable Medical Equipment Social History Tobacco Use [...] 10:27 AM EDT Tc from lakshmi case operator calling to see if DME can be which to mass surgical supply due to [facility] not doing delivery. DME Disposable bed pads documented in this encounter Plan of Treatment Upcoming Encounters Date Type Department Care Team (Late st Contact Info) Description 08/05/2024 10:30 AM EDT Office Visit [facility] MED & PEDS [address] [place] [address] Toyin Pollard FNP [address] [place] [address] 09/23/2024 11:00 AM EDT Telemedicine [facility] MED & PEDS [address] [place] [address] 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, RN [address] [place] [address] documented as of this encounter Goals Goal [...] documented as of this encounter Care Teams Galvanometer Assembler Relationship Specialty Start Date End Date Toyin Pollard FNP [address] [place] [address] PCP - General Family Medicine 01/11/21 Satish Brennan MD [address] [place] [address] Endocrinology 02/22/24 Jacob Morrow [address] [place] [address] Pulmonary Disease 02/22/24 Nicolasa Escobar MD [address] [place] [address] [address] [place] [address] Neurology 02/22/24 Shen Davis MD [address] [place] [address] Nephrology 02/22/24 Ellyn Connolly Cook BoatVacuum Technician 08/17/23 [facility] 01/11/24 01/21/24 [facility] 01/11/24 documented as of this encounter
--- OUTSIDE RECORDS SUMMARY | 2024-06-28 16:41 | XMS_ITS | Encounter Summary ---
Author Organization [employer] Address [address] [place] [address] 7t [place] [address] Care Team Providers Care Graphic Production Artist Name Role Phone Toyin Pollard Primary Care Provider Satish Brennan MD Unavailable Jacob Morrow Unavailable [phone] Nicolasa Escobar MD Unavailable Shen Davis MD Unavailable [phone] Encounter Details Date Type Department Care Team (Late st Contact Info) Description 09/12/2022 Orders Only [facility] MEDICINE [address] [place] [address] Patrica Grimaldo LPN Social History Tobacco Use [...] Description 08/05/2024 10:30 AM EDT Office Visit [facility] MED & PEDS [address] [place] [address] Toyin Pollard FNP [address] [place] [address] 09/23/2024 11:00 AM EDT Telemedicine [facility] MED & PEDS [address] [place] [address] 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, RN [address] [place] [address] documented as of this encounter Visit Diagnoses Not on filedocumented in this encounter Care Teams Graphic Production Artist Relationship Specialty Start Date End Date Toyin Pollard FNP [address] [place] [address] PCP - General Family Medicine 01/11/21 Satish Brennan MD [address] [place] [address] Endocrinology 02/22/24 Jacob Morrow 5 [place] [address] Pulmonary Disease 02/22/24 Nicolasa Escobar MD [address] [place] [address] [facility] [address] [place] [address] Neurology 02/22/24 Shen Davis MD [address] [place] [address] Nephrology 02/22/24 Ellyn Connolly Wet Process TechnicianManufacturing Finance Manager 08/17/23 [facility] 01/11/24 01/21/24 [facility] 01/11/24 documented as of this encounter
--- OUTSIDE RECORDS SUMMARY | 2024-06-28 16:41 | XMS_ITS | Encounter Summary ---
Author Organization [employer] Address [address] [facility] 7t [place] [address] Care Team Providers Care Package Drier Name Role Phone Toyin Pollard Primary Care Provider [phone] Satish Brennan MD Unavailable Jacob Morrow Unavailable [phone] Nicolasa Escobar MD Unavailable Shen Davis MD Unavailable [phone] Reason for Visit * Reason Onset Date Comments Durable Medical Equipment 02/19/2024 Encounter Details Date Type Department Care Team (Late st Contact Info) Description 02/19/2024 Telephone [facility] MEDICINE [address] [place], [place] [phone] Toyin Pollard FNP [address] [place], [place] [phone] Durable Medical Equipment Social History Tobacco Use [...] Ivory LPN - 02/20/2024 10:21 AM EST Director Global Development did see Rx was sent to [phone] pt has current RX no need for updates, staff writer Parisa at number below. However no answer and mail box full . Pt has appt tomorrow pt should discussthis need sending to PCP as FYI . Tc from [facility] requesting a new order for pt to be sent over for Poise sanitary pads , adult diapers oversized . Any questions please get in contact with [facility] at the callback number above. Callback [phone] * Telephone Encounter - Christina Paul - 02/19/2024 3:28 PM EST Tc from [facility] requesting a new order for pt to be sent over for Poise sanitary pads , adult diapers oversized . Any questions please get in contact with [facility] at the callback number above. Callback [phone] documented in this encounter Plan of Treatment Upcoming Encounters Date Type Department Care Team ([facility] st Contact Info) Description 08/05/2024 10:30 AM EDT Office Visit [facility] MED & PEDS [address] [place] [address] Toyin Pollard FNP [address] [place] [address] 09/23/2024 11:00 AM EDT Telemedicine [facility] MED & PEDS [address] [place] [address] 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, MINA [address] [place], [place] documented as of this encounter Goals [...] documented as of this encounter Care Teams Package Drier Relationship Specialty Start Date End Date Toyin Pollard FNP [address] [place] [address] PCP - General Family Medicine 01/11/21 Satish Brennan MD [address] [place] [address] Endocrinology 02/22/24 Jacob Morrow 5 [place] [address] Pulmonary Disease 02/22/24 Nicolasa Escobar MD [address] [place] [address] [place] [address] Neurology 02/22/24 Shen Davis MD [address] [place] [address] Nephrology 02/22/24 Ellyn Connolly Seed Analysis Laboratory AssistantTravel Coordinator 08/17/23 [facility] 01/11/24 documented as of this encounter
--- OUTSIDE RECORDS SUMMARY | 2024-06-28 16:41 | XMS_ITS | Encounter Summary ---
Author Organization [employer] Address [address] [facility] 7t [place] [address] Care Team Providers Care Fast Food Manager Name Role Phone Toyin Pollard Primary Care Provider [phone] Satish Brennan MD Unavailable Jacob Morrow Unavailable [phone] Nicolasa Escobar MD Unavailable Shen Davis MD Unavailable [phone] Reason for Visit * Reason Onset Date Comments Hospital Follow-up 09/19/2022 Encounter Details Date Type Department Care Team (Late st Contact Info) Description 09/19/2022 Telephone [facility] MEDICINE [address] [place] [address] Toyin Pollard FNP [address] [place], [place] [phone] Hospital Follow-up Social History Tobacco Use Types [...] 9 am * Telephone Encounter - Clara Troy - 09/19/2022 1:48 PM EDT Tc from pt requesting a HDF appt. [place] [facility] [place] and discharged on 09/16/22. Pt was diagnosed with pneumonia. Please contact dionisio at [phone] documented in this encounter Plan of Treatment Upcoming Encounters Date Type Department Care Team (Late st Contact Info) Description 08/05/2024 10:30 AM EDT Office Visit [facility] MED & PEDS [address] [place] [address] Toyin Pollard FNP [address] [place] [address] 09/23/2024 11:00 AM EDT Telemedicine [facility] MED & PEDS [address] [place] [address] 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 RN [address] [place], [place] [phone] documented as of this encounter Visit Diagnoses Not on filedocumented in this encounter Care Teams Fast Food Manager Relationship Specialty Start Date End Date Toyin Pollard FNP [address] [place] [address] PCP - General Family Medicine 01/11/21 Satish Brennan MD [address] [place] [address] Endocrinology 02/22/24 Jacob Morrow [address] [place] [address] Pulmonary Disease 02/22/24 Nicolasa Escobar MD [address] [place] [address] [place] [address] Neurology 02/22/24 Shen Davis MD [address] [place] [address] Nephrology 02/22/24 Ellyn Connolly Enterprise EngineerAssembler Insulator 08/17/23 [facility] 01/11/24 01/21/24 [facility] 01/11/24 documented as of this encounter
--- OUTSIDE RECORDS SUMMARY | 2024-06-28 16:41 | XMS_ITS | Encounter Summary ---
Author Organization [employer] Address [address] [place] [address] 7t [place] [address] Care Team Providers Care Gravity Prospecting Operator Helper Name Role Phone Toyin Pollard Primary Care Provider [phone] Satish Brennan MD Unavailable Jacob Morrow Unavailable [phone] Nicolasa Escobar MD Unavailable [phone] Shen Davis MD Unavailable [phone] Encounter Details Date Type Department Care Team (Late st Contact Info) Description 04/20/2022 Orders Only [facility] 230 [place] [address] Patrica Grimaldo LPN Social History Tobacco Use [...] Description 08/05/2024 10:30 AM EDT Office Visit [facility] MED & PEDS 505 [place] [address] Toyin Pollard FNP 505 [place] [address] 09/23/2024 11:00 AM EDT Telemedicine [facility] MED & PEDS [address] [place] [address] 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, RN [address] [place] [address] documented as of this encounter Visit Diagnoses Not on filedocumented in this encounter Care Teams Gravity Prospecting Operator Helper Relationship Specialty Start Date End Date Toyin Pollard FNP 230 [place] [address] PCP - General Family Medicine 01/11/21 Satish Brennan MD [address] [place] [address] Endocrinology 02/22/24 Jacob Morrow 5 [place] [address] Pulmonary Disease 02/22/24 Nicolasa Escobar MD [address] [place] [address] [address] Neurology 02/22/24 Shen Davis MD [address] [place] [address] Nephrology 02/22/24 Ellyn Connolly Assistant LibrarianSample Driller 08/17/23 [facility] 01/11/24 01/21/24 [facility] 01/11/24 documented as of this encounter
--- OUTSIDE RECORDS SUMMARY | 2024-06-28 16:41 | XMS_ITS | Encounter Summary ---
Author Organization [employer] Address 75 [facility] 7t [place] [address] Care Team Providers Care Grey Goods Tester Name Role Phone Toyin Pollard Primary Care Provider Satish Brennan MD Unavailable [phone] Jacob Morrow Unavailable [phone] Nicolasa Escobar MD Unavailable Shen Davis MD Unavailable [phone] Reason for Visit * Reason Comments Med Refill Encounter Details Date Type Department Care Team (Late st Contact Info) Description 04/12/2024 Refill [facility] MEDICINE 230 [place] [address] Toyin Pollard FNP 505 [place], [place] [phone] Long-term current use of opiate analgesic (Primary [...] 04/12/2024 5:16 PM EST Please schedule for PARING MACHINE OPERATOR, thanks! documented in this encounter Plan of Treatment Upcoming Encounters Date Type Department Care Team (Late st Contact Info) Description 08/05/2024 10:30 AM EDT Office Visit [facility] MED & PEDS 505 [place] [address] Toyin Pollard FNP 505 [place] [address] 09/23/2024 11:00 AM EDT Telemedicine [facility] MED & PEDS 505 [place] [address] 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 RN 505 [place] [address] documented as of this encounter Goals Goal [...] documented as of this encounter Care Teams Grey Goods Tester Relationship Specialty Start Date End Date Toyin Pollard FNP 230 [place] [address] PCP - General Family Medicine 01/11/21 Satish Brennan MD 10 [facility] 104 [place] [address] Endocrinology 02/22/24 Jacob Morrow 5 [place] [address] Pulmonary Disease 02/22/24 Nicolasa Escobar MD [address] [place] [address] Dr [facility] 140 [place] [address] Neurology 02/22/24 Shen Davis MD 10 [facility] 302 [place] [address] Nephrology 02/22/24 Ellyn Connolly Powder Line RepairerElectrical Engineering Intern 08/17/23 [facility] 01/11/24 documented as of this encounter
--- OUTSIDE RECORDS SUMMARY | 2024-06-28 16:41 | XMS_ITS | Encounter Summary ---
Author Organization [employer] Address 75 [facility] 7t [place] [address] Care Team Providers Care Tour Narrator Name Role Phone Toyin Pollard Primary Care Provider Satish Brennan MD Unavailable Jacob Morrow Unavailable [phone] Nicolasa Escobar MD Unavailable Shen Davis MD Unavailable [phone] Reason for Visit * Reason Onset Date Comments transportation needed 05/15/2024 Encounter Details Date Type Department Care Team (Late st Contact Info) Description 05/15/2024 Telephone [facility] MEDICINE 230 [place], [place] [phone] Toyin Pollard FNP 505 [place], [place] [phone] transportation needed Social History Tobacco Use Types Packs/Day Years [...] * Telephone Encounter - Cooper Kurtz - 05/15/2024 2:22 PM EST TC from [facility] Head Usher to pt reports pt needing stretcher transportation for upcoming visit with [facility] 05/21/24 . Glue Spreader believe they are requesting an ambulance service. documented in this encounter Plan of Treatment Upcoming Encounters Date Type Department Care Team (Late st Contact Info) Description 08/05/2024 10:30 AM EDT Office Visit [facility] MED & PEDS 505 [place] [address] Toyin Pollard FNP 505 [place] [address] 09/23/2024 11:00 AM EDT Telemedicine [facility] MED & PEDS 505 [place] [address] 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, RN 505 [place] [address] documented as of this encounter Goals Goal [...] documented as of this encounter Care Teams Tour Narrator Relationship Specialty Start Date End Date Toyin Pollard FNP 230 [place] [address] PCP - General Family Medicine 01/11/21 Satish Brennan MD [address] [facility] [facility] 104 [place] [address] Endocrinology 02/22/24 Jacob Morrow 5 [place] [address] Pulmonary Disease 02/22/24 Nicolasa Escobar MD [address] [place] [address] [address] [place] 140 [place] [address] Neurology 02/22/24 Shen Davis MD [address] [place] [address] Nephrology 02/22/24 Ellyn Connolly Historiography TeacherFilm Drying Machine Operator 08/17/23 [facility] 01/11/24 documented as of this encounter
--- OUTSIDE RECORDS SUMMARY | 2024-06-28 16:41 | XMS_ITS | Encounter Summary ---
Author Organization [employer] Address 75 [facility] 7t [place] [address] Care Team Providers Care Material Requirements Worker Name Role Phone Toyin Pollard Primary Care Provider Satish Brennan MD Unavailable Jacob Morrow Unavailable [phone] Nicolasa Escobar MD Unavailable Shen Davis MD Unavailable [phone] Encounter Details Date Type Department Care Team (Late st Contact Info) Description 04/26/2022 Abstract [facility] MEDICINE [address] [place] [address] Toyin Pollard FNP 505 [place] [address] Social History Tobacco Use Types Packs/Day Years [...] Department Care Team (Late Contact Info) Description 08/05/2024 10:30 AM EDT Office Visit [facility] MED & PEDS 505 [place], [place] [phone] Toyin Pollard FNP 505 [place], [place] [phone] 09/23/2024 11:00 AM EDT Telemedicine [facility] MED & PEDS 505 [place] [address] 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, RN [address] [place] [address] documented as of this encounter Visit Diagnoses Not on filedocumented in this encounter Care Teams Material Requirements Worker Relationship Specialty Start Date End Date Toyin Pollard FNP [address] [place] [address] PCP - General Family Medicine 01/11/21 Satish Brennan MD [address] [place] [address] Endocrinology 02/22/24 Jacob Morrow 5 [place] [address] Pulmonary Disease 02/22/24 Nicolasa Escobar MD [address] [place] [address] Dr [place] 140 [place] [address] Neurology 02/22/24 Shen Davis MD [address] [place] [address] Nephrology 02/22/24 Ellyn Connolly Resource TeacherNeedle Maker 08/17/23 [facility] 01/11/24 01/21/24 [facility] 01/11/24 documented as of this encounter
--- OUTSIDE RECORDS SUMMARY | 2024-06-28 16:41 | XMS_ITS | Encounter Summary ---
Author Organization [employer] Address 75 [facility] 7t [place] [address] Care Team Providers Care Video Specialist Name Role Phone Toyin Pollard Primary Care Provider [phone] Satish Brennan MD Unavailable Jacob Morrow Unavailable [phone] Nicolasa Escobar MD Unavailable [phone] Shen Davis MD Unavailable [phone] Reason for Visit * Reason Onset Date Comments ER Follow-up 06/06/2023 Encounter Details Date Type Department Care Team (Late st Contact Info) Description 06/06/2023 Telephone [facility] MEDICINE 230 [place] [address] Toyin Pollard FNP 505 [place], [place] [phone] ER Follow-up Social History Tobacco Use Types [...] provided by ED. Pt requested appt at [facility] and scheduled pt with Dr. Franko Monet for 06/11 at 3:45 pm. Pt verbalized understanding and agreement with plan. * Telephone Encounter - Joseph Lopez - 06/06/2023 3:51 PM EDT Patient calling to report ED visit on : Date: 06/04 Hospital: [facility] Seen for: COPD and bronchitis Patient advised will forward to team nurse for follow up documented in this encounter Plan of Treatment Upcoming Encounters Date Type Department Care Team ([facility] st Contact Info) Description 08/05/2024 10:30 AM EDT [facility] 505 [place], [place] [phone] Toyin Pollard FNP 505 [place] [address] 09/23/2024 11:00 AM EDT Telemedicine [facility] MED & PEDS 505 [place], [place] [phone] 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, RN 505 [place], [place] documented as of this encounter Goals [...] documented as of this encounter Care Teams Video Specialist Relationship Specialty Start Date End Date Toyin Pollard FNP 230 [place] [address] PCP - General Family Medicine 01/11/21 Satish Brennan MD [address] [place] [address] Endocrinology 02/22/24 Jacob Morrow 5 [place] [address] Pulmonary Disease 02/22/24 Nicolasa Escobar MD [address] [place] [address] [place] [address] Neurology 02/22/24 Shen Davis MD [address] [facility] [address] [place] [address] Nephrology 02/22/24 Ellyn Connolly Linen Room CustodianBag Machine Tender 08/17/23 [facility] 10/24/24 11/3/24 [facility] 01/11/24 documented as of this encounter
--- OUTSIDE RECORDS SUMMARY | 2024-06-28 16:41 | XMS_ITS | Clinical Summary ---
Author Organization [facility] Address [address] [facility] 20 0 [place] [address] Phone Care Team Providers Care Investigation Division Sergeant Name Role Phone Toyin Pollard LOUIE Primary Care Provider [phone] Social History Tobacco Use Types Packs/Day Years [...] Colorectal Cancer Screening: Sigmoidoscopy 02/17/2020 Influenza Vaccine (Season Ended) 2024 Pneumococcal Vaccine: Peds ( 0 to 5 Years) and At-Risk Patients (6 to 49 Years) Aged Out No longer eligible b ased on patient's age to complete this topic [place] Care Teams Investigation Division Sergeant Relationship Specialty Start Date End Date Toyin Pollard FNP [address] [place] [address] PCP - General 09/13/22
--- OUTSIDE RECORDS SUMMARY | 2024-06-28 16:41 | XMS_ITS | Encounter Summary ---
Author Organization [employer] Address 75 [facility] 7t [place] [address] Care Team Providers Care Concrete Stone Finishing Supervisor Name Role Phone Toyin Pollard Primary Care Provider Satish Brennan MD Unavailable [phone] Jacob Morrow Unavailable [phone] Nicolasa Escobar MD Unavailable Shen Davis MD Unavailable [phone] Reason for Visit * Reason Onset Date Comments Referral 01/08/2024 Encounter Details Date Type Department Care Team ([facility] st Contact Info) Description 01/08/2024 Telephone [facility] MEDICINE 230 [place] [address] Toyin Pollard FNP 505 [place], [place] [phone] Referral Social History Tobacco Use Types Packs/Day [...] - 01/08/2024 2:01 PM EDT Tc from [facility] Jennifer from [facility] . Amanda indicates they will process the referral for mpt therapy. documented in this encounter Plan of Treatment Upcoming Encounters Date Type Department Care Team ([facility] st Contact Info) Description 08/05/2024 10:30 AM EDT Office Visit [facility] MED & PEDS 505 [place] [address] Toyin Pollard FNP 505 [place] [address] 09/23/2024 11:00 AM EDT Telemedicine [facility] MED & PEDS 505 [place] [address] 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, RN 505 [place] [address] documented as of this encounter Goals Goal [...] documented as of this encounter Care Teams Concrete Stone Finishing Supervisor Relationship Specialty Start Date End Date Toyin Pollard FNP [address] [place] [address] PCP - General Family Medicine 01/11/21 Satish Brennan MD [address] [facility] [address] [facility] 104 [place] [address] Endocrinology 02/22/24 Jacob Morrow 5 [place] [address] Pulmonary Disease 02/22/24 Nicolasa Escobar MD [address] [place] [address] Neurology 02/22/24 Shen Davis MD [address] [facility] [facility] [address] [facility] [address] [facility] 302 [place] [address] Nephrology 02/22/24 Ellyn Connolly Pocket OperatorWharf Labourer 08/17/23 [facility] 01/11/24 01/21/24 [facility] 01/11/24 documented as of this encounter
--- OUTSIDE RECORDS SUMMARY | 2024-06-28 16:41 | XMS_ITS | Encounter Summary ---
Author Organization [employer] Address 75 [facility] 7t [place] [address] Care Team Providers Care Technical Instructor Course Developer Name Role Phone Toyin Pollard Primary Care Provider Satish Brennan MD Unavailable [phone] Jacob Morrow Unavailable [phone] Nicolasa Escobar MD Unavailable Shen Davis MD Unavailable [phone] Encounter Details Date Type Department Care Team (Late st Contact Info) Description 06/15/2022 Orders Only [facility] MED & PEDS 505 [place] [address] Ellyn Chery LPN Social History Tobacco Use [...] 10:30 AM EDT Office Visit [facility] MED & PEDS 505 [place] [address] Toyin Pollard FNP 505 [place] [address] 09/23/2024 11:00 AM EDT Telemedicine [facility]EDS [address] [place] [address] 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, RN [address] [place] [address] documented as of this encounter Visit Diagnoses Not on filedocumented in this encounter Care Teams Technical Instructor Course Developer Relationship Specialty Start Date End Date Toyin Pollard FNP 230 [place] [address] PCP - General Family Medicine 01/11/21 Satish Brennan MD [address] [place] [address] Endocrinology 02/22/24 Jacob Morrow 5 [place] [address] Pulmonary Disease 02/22/24 Nicolasa Escobar MD [address] [place] [address] Dr [facility] 140 [place] [address] Neurology 02/22/24 Shen Davis MD [address] [place] [address] Nephrology 02/22/24 Ellyn Connolly Tree WardenWatch Adjuster 08/17/23 [facility] 01/11/24 01/21/24 [facility] 01/11/24 documented as of this encounter
--- OUTSIDE RECORDS SUMMARY | 2024-06-28 16:41 | XMS_ITS | Encounter Summary ---
Author Organization [employer] Address 75 [facility] 7t [place] [address] Care Team Providers Care A/C Technician Name Role Phone Toyin Pollard LOUIE Primary Care Provider [phone] Satish Brennan MD Unavailable [phone] Jacob Morrow Unavailable [phone] Nicolasa Escobar MD Unavailable [phone] Shen Davis MD Unavailable [phone] Reason for Visit * Reason Comments Med Refill Encounter Details Date Type Department Care Team (Late st Contact Info) Description 08/21/2023 Refill [facility] MEDICINE 230 [place], [place] [phone] Agustina Toribio MD 230 [place], [place] [phone] Social History Tobacco Use Types Packs/Day Years [...] the past 12 months, has t he [employer], gas, oil or water company threatened to [...] Description 08/05/2024 10:30 AM EDT Office Visit [facility] MED & PEDS 505 [place] [address] Toyin Pollard FNP 505 [place] [address] 09/23/2024 11:00 AM EDT Telemedicine [facility] MED & PEDS 505 [place] [address] 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, MINA 505 [place] [address] documented as of this encounter Goals Goal Patient Goal Type Associated Problems Recent Progress Patient-Stated? Author Hemoglobin A1c < 7 Result Component 6.4(08/02/2023 4:30 PM EDT) Michelle Rodarte, PharmD documented as of this encounter Visit Diagnoses Not on filedocumented in this encounter Additional Health Concerns Assessment Noted Time PHQ-9 Depression Total Score: 13 024 4:37 PM EDT documented as of this encounter Care Teams A/C Technician Relationship Specialty Start Date End Date Phalen, Toyin, INTRAMURAL DIRECTOR 230 [place] [address] PCP - General Family Medicine 01/11/21 Satish Brennan MD [address] [place] [address] Endocrinology 02/22/24 Jacob Morrow [address] [place] [address] Pulmonary Disease 02/22/24 Nicolasa Escobar MD [address] [place] [address] [address] Neurology 02/22/24 Shen Davis MD [address] [place] [address] Nephrology 02/22/24 Ellyn Connolly Radiologist DiagnosticCertified Neurodiagnostic Technologist 08/17/23 [facility] 01/11/24 01/21/24 [facility] 01/11/24 documented as of this encounter
--- OUTSIDE RECORDS SUMMARY | 2024-06-28 16:41 | XMS_ITS | Encounter Summary ---
Author Organization [employer] Address 75 [facility] 7t [place] [address] Care Team Providers Care Histologic Aide Name Role Phone Toyin Pollard Primary Care Provider Satish Brennan MD Unavailable Jacob Morrow Unavailable [phone] Nicolasa Escobar MD Unavailable Shen Davis MD Unavailable [phone] Reason for Visit * Reason Onset Date Comments PT1 01/30/2023 Encounter Details Date Type Department Care Team (Late st Contact Info) Description 01/30/2023 Telephone [facility] MEDICINE 230 [place], [place] [phone] Toyin Pollard FNP 505 [place], [place] [phone] PT1 Social History Tobacco Use Types Packs/Day [...] Date: 03/27/2022 Time: 8:30 Visits: 5 Address: [address] [place] [address] Facility[facility] [place] Wheel Chair: Scooter and O2 Casting Agent Needed: Yes 1 documented in this encounter Plan of Treatment Upcoming Encounters Date Type Department Care Team ([facility] st Contact Info) Description 08/05/2024 10:30 AM EDT Office Visit [facility] MED & PEDS 505 [place] [address] Toyin Pollard FNP 505 [place] [address] 09/23/2024 11:00 AM EDT Telemedicine [facility] MED & PEDS 505 [place] [address] 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, RN [address] [place] [address] documented as of this encounter Goals Goal [...] documented as of this encounter Care Teams Histologic Aide Relationship Specialty Start Date End Date Toyin Pollard FNP [address] [place] [address] PCP - General Family Medicine 01/11/21 Satish Brennan MD [address] [place] [address] Endocrinology 02/22/24 Jacob Morrow 5 [place] [address] Pulmonary Disease 02/22/24 Nicolasa Escobar MD [address] [place] [address] [facility] 140 [place] [address] Neurology 02/22/24 Shen Davis MD [address] [place] [address] Nephrology 02/22/24 Ellyn Connolly Arch Cushion Press OperatorTrade Union Official 08/17/23 [facility] 01/11/24 01/21/24 [facility] 01/11/24 documented as of this encounter
--- OUTSIDE RECORDS SUMMARY | 2024-06-28 16:41 | XMS_ITS | Encounter Summary ---
Author Organization [employer] Address 75 [facility] 7t [place] [address] Care Team Providers Care Embryology Professor Name Role Phone Toyin Pollard Primary Care Provider [phone] Satish Brennan MD Unavailable Jacob Morrow Unavailable [phone] Nicolasa Escobar MD Unavailable Shen Davis MD Unavailable [phone] Reason for Visit * Reason Onset Date Comments PT1 11/02/2022 Encounter Details Date Type Department Care Team (Late st Contact Info) Description 11/02/2022 Telephone [facility] MEDICINE 230 [place], [place] [phone] Toyin Pollard FNP 505 [place], [place] [phone] PT1 Social History Tobacco Use Types Packs/Day [...] with better life requesting a PT1 Location: [facility] Specialty: Provider or clinic appts Date&Time:n/A Window Shade Cutter And Mounter:N/a documented in this encounter Plan of Treatment Upcoming Encounters Date Type Department Care Team (Late st Contact Info) Description 08/05/2024 10:30 AM EDT Office Visit [facility] MED & PEDS 505 [place] [address] Toyin Pollard FNP 505 [place] [address] 09/23/2024 11:00 AM EDT Telemedicine [facility] MED & PEDS 505 [place] [address] 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, RN 505 [place] [address] documented as of this encounter Visit Diagnoses Not on filedocumented in this encounter Additional Health Concerns Assessment Noted Time PHQ-9 Depression Total Score: 0 09/29/19 23 2:03 PM EDT documented as of this encounter Care Teams Embryology Professor Relationship Specialty Start Date End Date Toyin Pollard FNP 230 [place] [address] PCP - General Family Medicine 01/11/21 Satish Brennan MD [address] [place] [address] Endocrinology 02/22/24 Jacob Morrow 5 [place] [address] Pulmonary Disease 02/22/24 Nicolasa Escobar MD [address] [place] [address] [place] [address] Neurology 02/22/24 Shen Davis MD [address] [place] [address] Nephrology 02/22/24 Ellyn Connolly Word Processing SupervisorHotel Casino Floorperson 08/17/23 [facility] 01/11/24 01/21/24 [facility] 01/11/24 documented as of this encounter
--- OUTSIDE RECORDS SUMMARY | 2024-06-28 16:41 | XMS_ITS | Encounter Summary ---
Author Organization [employer] Address [address] [facility] 7t [place] [address] Care Team Providers Care Mechanical Assembly Name Role Phone Toyin Pollard LOUIE Primary Care Provider [phone] Satish Brennan MD Unavailable [phone] Jacob Morrow Unavailable [phone] Nicolasa Escobar MD Unavailable [phone] Shen Davis MD Unavailable [phone] Encounter Details Date Type Department Care Team ([facility] Contact Info) Description 05/23/2022 Orders Only [facility] & [facility]EDS 505 [place] [address] Ellyn Chery LPN Social History Tobacco Use [...] Upcoming Encounters Date Type Department Care Team ([facility] Contact Info) Description 08/05/2024 10:30 AM EDT Office Visit [facility] 505 [place] [address] Toyin Pollard FNP 505 [place] [address] 09/23/2024 11:00 AM EDT Telemedicine [facility] MED & PEDS 505 [place] [address] 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, RN [address] [place] [address] documented as of this encounter Visit Diagnoses Not on filedocumented in this encounter Care Teams Mechanical Assembly Relationship Specialty Start Date End Date Toyin Pollard FNP [address] [place] [address] PCP - General Family Medicine 01/11/21 Satish Brennan MD [address] [facility] [address] [facility] 104 [place] [address] Endocrinology 02/22/24 Jacob Morrow 5 [place] [address] Pulmonary Disease 02/22/24 Nicolasa Escobar MD [address] [place] [address] Neurology 02/22/24 Shen Davis MD [address] [facility] 302 [place] [address] Nephrology 02/22/24 Ellyn Connolly Train Operations SupervisorSenior Maintenance Mechanic 08/17/23 [facility] 01/11/24 01/21/24 [facility] 01/11/24 documented as of this encounter
--- OUTSIDE RECORDS SUMMARY | 2024-06-28 16:41 | XMS_ITS | Encounter Summary ---
Author Organization [employer] Address 75 [facility] 7t [place] [address] Care Team Providers Care Parking Lot Attendant And Cashier Name Role Phone Toyin Pollard Primary Care Provider Satish Brennan MD Unavailable Jacob Morrow Unavailable [phone] Nicolasa Escobar MD Unavailable Shen Davis MD Unavailable [phone] Reason for Visit * Reason Onset Date Comments Hospital Follow-up 11/06/2023 Encounter Details Date Type Department Care Team (Late st Contact Info) Description 11/06/2023 Telephone [facility] MEDICINE 230 [place] [address] Toyin Pollard FNP 505 [place], [place] [phone] Hospital Follow-up Social History Tobacco Use Types [...] from pt requesting a F appt. Hospital: [facility] Date of admission: 10/25 Discharge date: 11/03 Diagnosed: Ankle injury documented in this encounter Plan of Treatment Upcoming Encounters Date Type Department Care Team (Late st Contact Info) Description 08/05/2024 10:30 AM EDT Office Visit [facility] MED & PEDS 505 [place] [address] Toyin Pollard FNP 505 [place] [address] 09/23/2024 11:00 AM EDT Telemedicine [facility] MED & PEDS 505 [place] [address] 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, RN 505 [place] [address] documented as of this encounter Goals Goal [...] documented as of this encounter Care Teams Parking Lot Attendant And Cashier Relationship Specialty Start Date End Date Toyin Pollard FNP [address] [place] [address] PCP - General Family Medicine 01/11/21 Satish Brennan MD [address] [facility] 104 [place] [address] Endocrinology 02/22/24 Jacob Morrow 5 [place] [address] Pulmonary Disease 02/22/24 Nicolasa Escobar MD [address] [place] [address] Dr [address] [place] [address] Neurology 02/22/24 Shen Davis MD [address] [place] [address] Nephrology 02/22/24 Ellyn Connolly Anti Air Warfare Operations OfficerDry Ice Machine Operator 08/17/23 [facility] 01/11/24 01/21/24 [facility] 01/11/24 documented as of this encounter
--- OUTSIDE RECORDS SUMMARY | 2024-06-28 16:41 | XMS_ITS | Encounter Summary ---
Author Organization [employer] Address 75 [facility] 7t [place] [address] Care Team Providers Care Administrative Volunteer Name Role Phone Toyin Pollard LOUIE Primary Care Provider [phone] Satish Brennan MD Unavailable [phone] Jacob Morrow Unavailable [phone] Nicolasa Escobar MD Unavailable Shen Davis MD Unavailable [phone] Reason for Visit * Reason Comments Med Refill Encounter Details Date Type Department Care Team (Late st Contact Info) Description 08/24/2023 Refill [facility] MEDICINE 230 [place], [place] [phone] Agustina Toribio MD 230 [place], [place] [phone] Social History Tobacco Use Types Packs/Day Years [...] the past 12 months, has t he [employer], gas, oil or water company threatened to [...] Description 08/05/2024 10:30 AM EDT Office Visit [facility] MED & PEDS 505 [place] [address] Toyin Pollard FNP 505 [place] [address] 09/23/2024 11:00 AM EDT Telemedicine [facility] MED & PEDS 505 [place] [address] 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, MINA 505 [place] [address] documented as of this encounter Goals Goal [...] documented as of this encounter Care Teams Administrative Volunteer Relationship Specialty Start Date End Date Phalen, Toyin, UTILITIES AND MAINTENANCE SUPERVISOR 230 [place] [address] PCP - General Family Medicine 01/11/21 Satish Brennan MD [address] [place] [address] Endocrinology 02/22/24 Jacob Morrow [address] [facility] [place] [address] Pulmonary Disease 02/22/24 Nicolasa Escobar MD [address] [place] [address] [address] Neurology 02/22/24 Shen Davis MD [address] [place] [address] Nephrology 02/22/24 Ellyn Connolly Jinrikisha DriverLine Patroller 08/17/23 [facility] 01/11/24 01/21/24 [facility] 01/11/24 documented as of this encounter
--- OUTSIDE RECORDS SUMMARY | 2024-06-28 16:41 | XMS_ITS | Encounter Summary ---
Author Organization [employer] Address 75 [facility] 7t [place] [address] Care Team Providers Care Signals Intelligence Analyst Name Role Phone Toyin Pollard Primary Care Provider Satish Brennan MD Unavailable [phone] Jacob Morrow Unavailable [phone] Nicolasa Escobar MD Unavailable Shen Davis MD Unavailable [phone] Encounter Details Date Type Department Care Team (Late st Contact Info) Description 04/22/2024 Telephone [facility] MEDICINE 230 [place], [place] [phone] Toyin Pollard FNP [address] [place], [place] [phone] Social History Tobacco Use Types Packs/Day Years [...] the past 12 months, has t he [employer], gas, oil or water company threatened to [...] Description 08/05/2024 10:30 AM EDT Office Visit [facility] MED & PEDS 505 [place] [address] Toyin Pollard FNP 505 [place] [address] 09/23/2024 11:00 AM EDT Telemedicine [facility] MED & PEDS 505 [place] [address] 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, MINA 505 [place] [address] documented as of this encounter Goals Goal [...] documented as of this encounter Care Teams Signals Intelligence Analyst Relationship Specialty Start Date End Date Toyin Pollard FNP 230 [place] [address] PCP - General Family Medicine 01/11/21 Satish Brennan MD [address] [place] [address] Endocrinology 02/22/24 Jacob Morrow 5 [place] [address] Pulmonary Disease 02/22/24 Nicolasa Escobar MD [address] [facility] 140 [place] [address] Neurology 02/22/24 Shen Davis MD [address] [place] [address] Nephrology 02/22/24 Ellyn Connolly Geospatial ScientistPelt Shearer 08/17/23 [facility] 01/11/24 documented as of this encounter
--- OUTSIDE RECORDS SUMMARY | 2024-06-28 16:41 | XMS_ITS | Encounter Summary ---
Author Organization [employer] Address 75 [facility] 7t [place] [address] Care Team Providers Care Plate Worker Helper Name Role Phone JuddToyin barry LOUIE Primary Care Provider Satish Brennan MD Unavailable [phone] Jacob Morrow Unavailable [phone] Nicolasa Escobar MD Unavailable [phone] Shen Davis MD Unavailable [phone] Reason for Visit * Reason Onset Date Comments Appointment 12/27/2022 Encounter Details Date Type Department Care Team ([facility] st Contact Info) Description 12/27/2022 Telephone [facility] 230 [place], [place] [phone] Nestor Varela DDS 230 [place], [place] [phone] Appointment Social History Tobacco Use Types Packs/Day [...] AM EDT Office Visit [facility] MED & PEDS 505 [place] [address] Toyin Pollard FNP 505 [place] [address] 09/23/2024 11:00 AM EDT Telemedicine [facility] MED & PEDS 505 [place] [address] 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 RN 505 [place] [address] documented as of this encounter Visit Diagnoses Not on filedocumented in this encounter Additional Health Concerns Assessment Noted Time PHQ-9 Depression Total Score: 0 09/29/19 23 2:03 PM EDT documented as of this encounter Care Teams Plate Worker Helper Relationship Specialty Start Date End Date Toyin Pollard FNP 230 [place] [address] PCP - General Family Medicine 01/11/21 Satish Brennan MD [address] [place] [address] Endocrinology 02/22/24 Jacob Morrow 5 [place] [address] Pulmonary Disease 02/22/24 Nicolasa Escobar MD [address] [place] [address] [address] Neurology 02/22/24 Shen Davis MD [address] [place] [address] Nephrology 02/22/24 Ellyn Connolly Critical Care Unit NurseComputer Information Science Professor 08/17/23 [facility] 01/11/24 01/21/24 [facility] 01/11/24 documented as of this encounter
--- OUTSIDE RECORDS SUMMARY | 2024-06-28 16:41 | XMS_ITS | Encounter Summary ---
Author Organization [employer] Address [address] [facility] 7t [place] [address] Care Team Providers Care Cherry Picker Operator Name Role Phone Toyin Pollard Primary Care Provider Satish Brennan MD Unavailable Jacob Morrow Unavailable [phone] Nicolasa Escobar MD Unavailable [phone] Shen Davis MD Unavailable [phone] Encounter Details Date Type Department Care Team (Late st Contact Info) Description 07/13/2022 Orders Only [facility] MEDICINE 230 [place] [address] Toyin Pollard FNP 505 [place], [place] [phone] Social History Tobacco Use Types Packs/Day Years [...] Description 08/05/2024 10:30 AM EDT Office Visit [facility] MED & PEDS 505 [place], [place] [phone] Toyin Pollard FNP 505 [place], [place] [phone] 09/23/2024 11:00 AM EDT Telemedicine [facility] MED & PEDS 505 [place] [address] 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, RN [address] [place] [address] documented as of this encounter Visit Diagnoses Not on filedocumented in this encounter Care Teams Cherry Picker Operator Relationship Specialty Start Date End Date Toyin Pollard FNP [address] [place] [address] PCP - General Family Medicine 01/11/21 Satish Brennan MD [address] [place] [address] Endocrinology 02/22/24 Jacob Morrow 5 [place] [address] Pulmonary Disease 02/22/24 Nicolasa Escobar MD [address] [place] [address] Dr [facility] 140 [place] [address] Neurology 02/22/24 Shen Davis MD [address] [place] [address] Nephrology 02/22/24 Ellyn Connolly Email EngineerSteam Clothes Press Operator 08/17/23 [facility] 01/11/24 01/21/24 [facility] 01/11/24 documented as of this encounter
--- OUTSIDE RECORDS SUMMARY | 2024-06-28 16:41 | XMS_ITS | Encounter Summary ---
Author Organization [employer] Address 75 [facility] 7t [place] [address] Care Team Providers Care Hr Advisor Name Role Phone Toyin Pollard Primary Care Provider Satish Brennan MD Unavailable [phone] Jacob Morrow Unavailable [phone] Nicolasa Escobar MD Unavailable Shen Davis MD Unavailable [phone] Reason for Visit * Reason Onset Date Comments PT1 08/19/2022 Encounter Details Date Type Department Care Team (Late st Contact Info) Description 08/19/2022 Telephone [facility] 230 [place] [address] Toyin Pollard FNP 505 [place], [place] [phone] PT1 Social History Tobacco Use Types Packs/Day [...] has correct home address but transportation doesn't. Hand Glove Cleaner is resubmitting PT1. PT1 Date: Time: address:[address] [facility] specialty:PCP # visits: cylinder press operator apprentice: yes Wheelchair: yes PT1 Date: Time: address: [address] [facility] specialty: Band And Cuff Cutter # visits: cylinder press operator apprentice:yes Wheelchair:yes PT1 Date: Time: address: [address] [facility] specialty: Band Ripsaw Operator/ Diabetes # visits: cylinder press operator apprentice:yes Wheelchair:yes PT1 Date: Time: address:[address] [facility] specialty: Speech and hearing # visits: cylinder press operator apprentice:yes Wheelchair:yes documented in this encounter Plan of Treatment Upcoming Encounters Date Type Department Care Team (Late st Contact Info) Description 08/05/2024 10:30 AM EDT Office Visit [facility] MED & PEDS 505 [place] [address] Toyin Pollard FNP 505 [place] [address] 09/23/2024 11:00 AM EDT Telemedicine [facility] MED & PEDS 505 [place] [address] 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, RN 505 [place] [address] documented as of this encounter Visit Diagnoses Not on filedocumented in this encounter Care Teams Hr Advisor Relationship Specialty Start Date End Date Toyin Pollard FNP 230 [place] [address] PCP - General Family Medicine 01/11/21 Satish Brennan MD [address] [address] Endocrinology 02/22/24 Jacob Morrow 5 [facility] [address] Pulmonary Disease 02/22/24 Nicolasa Escobar MD [address] [place] [address] [address] Neurology 02/22/24 Shen Davis MD [address] [place] [address] Nephrology 02/22/24 Ellyn Connolly Auto DealerCampus Director 08/17/23 [facility] 01/11/24 01/21/24 [facility] 01/11/24 documented as of this encounter
--- OUTSIDE RECORDS SUMMARY | 2024-06-28 16:41 | XMS_ITS | Encounter Summary ---
Author Organization [employer] Address 75 [facility] 7t [place] [address] Care Team Providers Care Container Finishing Inspector Name Role Phone Toyin Pollard Primary Care Provider Satish Brennan MD Unavailable Jacob Morrow Unavailable [phone] Nicolasa Escobar MD Unavailable Shen Davis MD Unavailable [phone] Encounter Details Date Type Department Care Team (Late st Contact Info) Description 04/26/[address] [facility] MEDICINE [address] [place] [address] Toyin Pollard FNP 505 [place] [address] Social History Tobacco Use Types Packs/Day Years [...] Description 08/05/2024 10:30 AM EDT Office Visit [facility] MED & PEDS 505 [place], [place] [phone] Toyin Pollard FNP 505 [place], [place] [phone] 09/23/2024 11:[address] [facility] MED & PEDS 505 [place] [address] 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, RN [address] [place] [address] documented as of this encounter Visit Diagnoses Not on filedocumented in this encounter Care Teams Container Finishing Inspector Relationship Specialty Start Date End Date Toyin Pollard FNP [address] [place] [address] PCP - General Family Medicine 01/11/21 Satish Brennan MD [address] [place] [address] Endocrinology 02/22/24 Jacob Morrow 5 [place] [address] Pulmonary Disease 02/22/24 Nicolasa Escobar MD [address] [place] [address] Dr [address] 140 [place] [address] Neurology 02/22/24 Shen Davis MD [address] [place] [address] Nephrology 02/22/24 Ellyn Connolly Editor Managing NewspaperBroommaker 08/17/23 [facility] 01/11/24 01/21/24 [facility] 01/11/24 documented as of this encounter
--- OUTSIDE RECORDS SUMMARY | 2024-06-28 16:41 | XMS_ITS | Encounter Summary ---
Author Organization [employer] Address 75 [facility] 7t [place] [address] Care Team Providers Care Pneumatic Systems Operator Name Role Phone Toyin Pollard Primary Care Provider Satish Brennan MD Unavailable [phone] Jacob Morrow Unavailable [phone] Nicolasa Escobar MD Unavailable [phone] Shen Davis MD Unavailable [phone] Reason for Visit * Reason Onset Date Comments FYI 01/25/2024 Encounter Details Date Type Department Care Team (Late st Contact Info) Description 01/25/2024 Telephone [facility] MEDICINE 230 [place], [place] [phone] Toyin Pollard FNP 505 [place], [place] [phone] FYI Social History Tobacco Use Types Packs/Day [...] - 01/25/2024 1:45 PM EST TC from [facility] with [facility] wanted to report pt Discharged from [facility] on 01/22/24 . Had a Cast on right ankle and was removed due to numbness. Pt now has a boot on . documented in this encounter Plan of Treatment Upcoming Encounters Date Type Department Care Team (Late st Contact Info) Description 08/05/2024 10:30 AM EDT Office Visit [facility] & PEDS 505 [place] [address] Toyin Pollard FNP 505 [place] [address] 09/23/2024 11:00 AM EDT Telemedicine [facility] MED & PEDS 505 [place] [address] 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 RN 505 [place] [address] documented as of this encounter Goals Goal [...] documented as of this encounter Care Teams Pneumatic Systems Operator Relationship Specialty Start Date End Date Toyin Pollard FNP 230 [place] [address] PCP - General Family Medicine 01/11/21 Satish Brennan MD [address] [place] [address] Endocrinology 02/22/24 Jacob Morrow 5 [place] [address] Pulmonary Disease 02/22/24 Nicolasa Escobar MD [address] [place] [address] Dr Kameron 140 [place] [address] Neurology 02/22/24 Shen Davis MD [address] [place] [address] Nephrology 02/22/24 Ellyn Connolly Electrician ChiefProject Control Manager 08/17/23 [facility] 01/11/24 documented as of this encounter
--- OUTSIDE RECORDS SUMMARY | 2024-06-28 16:41 | XMS_ITS | Encounter Summary ---
Author Organization [employer] Address [address] [place] [address] 7t [place] [address] Care Team Providers Care Pharmaceutical Officer Name Role Phone Toyin Pollard Primary Care Provider [phone] Satish Brennan MD Unavailable [phone] Jacob Morrow Unavailable [phone] Nicolasa Escobar MD Unavailable Shen Davis MD Unavailable [phone] Reason for Visit * Reason Onset Date Comments MRI order 10/03/2022 FYI 10/03/2022 Encounter Details Date Type Department Care Team (Late st Contact Info) Description 10/03/2022 Telephone [facility] MEDICINE 230 [place], [place] [phone] Toyin Pollard FNP [address] [place], [place] [phone] MRI order ; Social History Tobacco Use [...] - 10/03/2022 2:16 PM EDT Tc from [facility] MRI Dept grinding supervisor would like to inform PCP that pt was unable to get MRI done ,due to being a closed scanner , States will be faxing order to [facility] since they have a MRI scanner that is open. Advised will leave message as a FYI if any questions or concerns please contact at [phone] * Telephone Encounter - Azalea Guerrero RN - 10/03/2022 2:05 PM EDT [facility] updated order. * Telephone Encounter - Clara Simmons - 10/03/2022 9:34 AM EDT Tc from racheal with [facility] requesting a new order for MRI abdomin. States MRI has to be MRI abdomin with and without contrast. She is also requesting a call in regards to ct scan done at [facility]. Please contact racheal at [phone] Fax number: [phone] documented in this encounter Plan of Treatment Upcoming Encounters Date Type Department Care Team (Late st Contact Info) Description 08/05/2024 10:30 AM EDT Office Visit [facility] & PEDS 505 [place] [address] Toyin Pollard FNP 505 [place] [address] 09/23/2024 11:00 AM EDT Telemedicine [facility] MED [facility] PEDS 505 [place] [address] 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, MINA [address] [place] [address] documented as of this encounter Visit Diagnoses Not on filedocumented in this encounter Additional Health Concerns Assessment Noted Time PHQ-9 Depression Total Score: 0 09/29/19 23 2:03 PM EDT documented as of this encounter Care Teams Pharmaceutical Officer Relationship Specialty Start Date End Date Toyin Pollard FNP 230 [place] [address] PCP - General Family Medicine 01/11/21 Satish Brennan MD [address] [place] [address] Endocrinology 02/22/24 Jacob Morrow 5 [place] [address] Pulmonary Disease 02/22/24 Nicolasa Escobar MD [address] [place] [address] Dr [address] 140 [place] [address] Neurology 02/22/24 Shen Davis MD [address] [place] [address] Nephrology 02/22/24 Ellyn Connolly Tint LayerPre School Manager 08/17/23 [facility] 01/11/24 01/21/24 [facility] 01/11/24 documented as of this encounter
--- OUTSIDE RECORDS SUMMARY | 2024-06-28 16:41 | XMS_ITS | Encounter Summary ---
Author Organization [employer] Address 75 [facility] 7t [place] [address] Care Team Providers Care Glass Loading Equipment Tender Name Role Phone Toyin Pollard Primary Care Provider [phone] Satish Brennan MD Unavailable [phone] Jacob Morrow Unavailable [phone] Nicolasa Escobar MD Unavailable Shen Davis MD Unavailable [phone] Encounter Details Date Type Department Care Team (Late Contact Info) Description 05/24/2022 Abstract [facility] MEDICINE 230 [place] [address] Toyin Pollard FNP 505 [place], [place] [phone] Social History Tobacco Use Types Packs/Day Years [...] Upcoming Encounters Date Type Department Care Team ([facility] Contact Info) Description 08/05/2024 10:30 AM EDT Office Visit [facility] MED & PEDS 505 [place] [address] Toyin Pollard FNP 505 [place] [address] 09/23/2024 11:00 AM EDT Telemedicine [facility] MED & PEDS 505 [place] [address] 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, MINA [address] [place] [address] documented as of this encounter Visit Diagnoses Not on filedocumented in this encounter Care Teams Glass Loading Equipment Tender Relationship Specialty Start Date End Date Toyin Pollard FNP [address] [place] [address] PCP - General Family Medicine 01/11/21 Satish Brennan MD [address] [place] [address] Endocrinology 02/22/24 Jacob Morrow 5 [place] [address] Pulmonary Disease 02/22/24 Nicolasa Escobar MD [address] [place] [address] Neurology 02/22/24 Shen Davis MD [address] [facility] 302 [place] [address] Nephrology 02/22/24 Ellyn Connolly Polymerization HelperTemplate Cutter 08/17/23 [facility] 01/11/24 01/21/24 [facility] 01/11/24 documented as of this encounter
--- OUTSIDE RECORDS SUMMARY | 2024-06-28 16:41 | XMS_ITS | Clinical Summary ---
Author Organization [employer] Address [address] [facility] [address] [place] [address] Care Team Providers Care Dental Patient Coordinator Name Role Phone JuddToyin barry LOUIE Primary Care Provider Satish Brennan MD Unavailable Jacob Morrow Unavailable [phone] Nicolasa Escobar MD Unavailable [phone] Shen Davis MD Unavailable [phone] Allergies Active Allergy Reactions Criticality Noted Date Comments Haloperidol Unknown High 03/22/2022 Other reaction(s): Irritable Latex Rash Low 01/14/2021 Metformin Diarrhea,Hives High 01/14/2021 Morphine Itching,Rash Low 02/07/2019 Tetracycline Hives High 03/22/2022 Medications TRUEplus Lancets 33G miscIndications: Type 2 diabetes mellitus with complication ([facility]) 1 Lancet in the morning, at noon, [...] SUBCUTANEOUSLY THREE TIMES DAILY WITH MEALS Active lurasidone (Latuda) 60 MG tablet TAKE [...] Take 1 tablet by mouth at bedtime. 023 Active triamcinolone (Kenalog) 0.1 % ointmentIndicati ons:Other eczema APPLY A THIN LAYER TOPICALLY AFFECTED AREA(S) TWICE DAILY FOR UP TO 2 WEEKS 30 g 1 023 Active Vitron-C 65-125 MG tablet TAKE 1 TABLET BY MOUTH AT BEDTIME 023 Active ASPIRIN 81 MG chewable tablet Take 1 tablet by mouth once daily as directed - Patient purchasing OTC Active melatonin 5 MG tablet Take 1-2 tablets (5-10 mg) by mouth if needed at bedtime (insomnia). 90 tablet 3 024 Active Continuous Glucose Sensor (FreeStyle Todd 2 Sensor) [facility] [place] CHANGE EVERY 14 DAYS Active topiramate 50 MG tablet TAKE 1 TABLET BY MOUTH TWICE DAILY IN THE MORNING AND AT BEDTIME Active docusate sodium (Colace) 100 MG capsuleIndicatio ns:Chronic constipation TAKE 1 CAPSULE BY MOUTH ONCE DAILY NEEDED FOR CONSTIPATION 90 capsule 3 024 Active Multiple Vitamin (Multivitamin) tablet TAKE 1 TABLET BY MOUTH EVERYDAY AT NOON WITH FOOD 90 tablet 3 024 Active econazole nitrate 1 % creamIndications :Intertrigo APPLY TO AFFECTED AREA(S) TWICE DAILY FOR 1 TO 2 WEEKS 30 g 2 Active Tirosint 150 MCG capsule Take 1 capsule by mouth Once per day. TDD 350 mcg Active LORazepam (Ativan) 1 MG tablet Take 1 tablet by mouth if needed each day (panic attack). Active Mounjaro 7.5 MG/0.5ML solution pen-injector Inject [...] 30 minutes 12 tablet 3 024 Active folic acid (Folvite) 1 MG tabletIndication s:Routine health maintenance TAKE 1 TABLET BY MOUTH EVERY MORNING 90 tablet 3 024 Active insulin glargine (Toujeo Max SoloStar) [...] at bedtime. 90 tablet 1 025 Active Diclofenac Sodium 1 % gel APPLY 2 GRAMS TOPICALLY TO AFFECTED AREA(S) TWICE DAILY NEEDED FOR PAIN 100 g 025 Active nicotine polacrilex (Nicorette) 4 MG gumIndications:S mokes cigarettes CHEW 1 PIECE OF GUM EVERY 2 HOURS NEEDED FOR SMOKING CESSATION. NO MORE THAN 24 pieces PER DAY 100 each 025 Active atenolol (Tenormin) 50 MG tablet TAKE 1 TABLET BY MOUTH EVERYDAY AT NOON 90 tablet 3 025 Active cholecalciferol VITAMIN D (Vitamin D-3) 50 MCG (2000 UT) tablet TAKE 1 TABLET BY MOUTH EVERY MORNING 90 tablet 025 Active ammonium lactate (Lac-Hydrin) 12 % lotion APPLY 2 GRAMS TOPICALLY TO AFFECTED AREA(S) EVERY DAY NEEDED FOR DRY SKIN 225 g 025 Active lidocaine (Lidoderm) 5 % patch APPLY 1 PATCH TOPICALLY TO SKIN, LEAVE ON FOR 12 HOURS AND OFF FOR 12 HOURS DIRECTED 30 patch 025 Active lisinopril 10 MG tablet TAKE 1 TABLET BY MOUTH AT BEDTIME 90 tablet 025 Active nystatin (Nyamyc) 705342 UNIT/GM powderIndication s:Tinea APPLY TOPICALLY TO AFFECTED AREA(S) TWICE DAILY 60 g 025 Active BD Pen Needle Mary U/F 32G X 4 MM misc Use as instructed 100 each 11 025 Active cetirizine (ZyrTEC) 10 MG tabletIndication s:Seasonal allergies TAKE 1 TABLET BY MOUTH EVERY DAY NEEDED FOR ALLERGIES 90 tablet 3 025 Active traMADol (Ultram) 50 MG tabletIndication s:Pain,Calculus of gallbladder without cholecystitis without obstruction,Long -term current use of opiate analgesic Take 1 tablet (50 mg) by mouth if needed each day for severe pain. Do not start before June 28, 2024. 28 tablet 025 Active scopolamine (Transderm-Scop) 1 MG/3DAYS patch 72 hourIndications: Dizziness, nonspecific Place 1 patch on the skin every 3rd (third) day. 10 patch 025 Active BD Pen Needle Mary U/F 32G X 4 MM misc USE DIRECTED FOUR TIMES DAILY 023 2024 Discontinued(R eorder (will not trigger notification to Pharmacy)) lisinopril 10 MG tablet TAKE 1 TABLET BY MOUTH AT BEDTIME 90 tablet 3 024 2024 Discontinued acetaminophen (Tylenol Extra Strength) 500 MG tablet Take 1 tablet (500 mg) by mouth every 6 (six) hours if needed for mild pain. 30 tablet 024 2024 cetirizine (ZyrTEC) 10 MG tabletIndication s:Seasonal allergies TAKE 1 TABLET BY MOUTH EVERY DAY NEEDED FOR ALLERGIES 90 tablet 3 024 2024 Discontinued nystatin (Nyamyc) 186443 UNIT/GM powderIndication s:Tinea APPLY TOPICALLY TO AFFECTED AREA(S) TWICE DAILY 60 g 2 024 2024 Discontinued traMADol (Ultram) 50 MG tabletIndication s:Pain,Calculus of gallbladder without cholecystitis without obstruction,Long -term current use of opiate analgesic TAKE 1 TABLET BY MOUTH EVERY DAY NEEDED FOR SEVERE PAIN 28 tablet 025 2024 Discontinued scopolamine (Transderm-Scop) 1 MG/3DAYS patch 72 hourIndications: Dizziness, nonspecific PLACE 1 PATCH ON SKIN EVERY 3rd DAY NEEDED FOR SEVERE DIZZINESS, MOTION SICKNESS, AND NAUSEA 10 patch 025 2024 Discontinued(R eorder (will not trigger notification to Pharmacy)) traMADol (Ultram) 50 MG tabletIndication s:Pain,Calculus of gallbladder without cholecystitis without obstruction,Long -term current use of opiate analgesic TAKE 1 TABLET BY MOUTH EVERY DAY NEEDED FOR SEVERE PAIN 28 tablet 025 2024 Discontinued(R eorder (will not trigger notification to Pharmacy)) Active Problems Problem Noted Date Diagnosed Date Long-term current use of opiate analgesic 2024 Overview (06/27/2024): Medication: Tramadol 50mg daily prn Indication: calculus of gallbladder Tier 3 (Q4 month visits - tele ok. Needs utox at least annual) - last reviewed 06/27/24 by PCP MARY LOU Pollard Complete edentulism 01/20/2023 Other specified hypothyroidism 11/15/2022 Overview (11/15/2022): ?? [place] [facility] Lab Results Component Value Date TSH [...] maintenance 11/10/2022 Overview (08/05/2023): Optometry: followed by [facility], last appt Feb 2021 Mammogram: BIRADS 2 02/21/2019, due. Ordered 11/15/22 Colonoscopy: followed by GI, referral for screening colonoscopy placed 11/15/22. Cologuard negative 03/08/23 Pap: overdue, pt does not recall last pap. Will schedule with [facility] in handicap accessible room Last PE: 4/29/24 Assessment & Plan (07/19/2023 10:15 AM EDT): Labs ordered today, showed hyperkalemia, but with hemolysis Will repeat at next appointment with PCP ADHD 09/28/2022 History of posttraumatic stress disorder (PTSD) 09/28/2022 Migraine 09/28/2022 Assessment & Plan (02/25/2024 6:26 PM EST): - History of migraines, previously using sumatripan. Discontinued with history of [place] - Referral to Neuro for further eval and tx 11/15/22 -Nurtec 75mg tablet approval - PA # [id number], exp 02/12/25 - pt reports med effective. Denies med SE Assessment & Plan (08/05/2023 5:08 PM EDT): - History of migraines, previously using sumatripan. Discontinued with history of [place] - Referral to Neuro for further eval and tx 11/15/22 -Nurtec 75mg tablet approved May 2023. #[id number] will on 12/17/23 - pt reports med effective. Denies med SE Assessment & Plan (11/15/2022 5:45 PM EDT): - History of migraines, previously using sumatripan. Discontinued with history of [place] - PA for Nurtec denied through PCP [...] -Patient will follow outpt Vasc Surg at [facility] [place]. Canales -Incidental measuring on CT [...] patient about the risks and harms of terminologist opioid use - Pt goal is to [...] patient about the risks and harms of terminologist opioid use - Pt goal is to lose enough weight so that she is eligible for gall bladder surgery, was referred to Weight management clinic 10/08/21 Chronic constipation 05/05/2021 COPD (chronic obstructive pulmonary disease) Assessment & Plan (02/25/2024 6:20 PM EST): - Patient continues on supplemental oxygen: 6L/min @ rest or when sitting, and 8L/min when up and moving around. - Following with [facility] - Dr. Morrow - Chronic SOB. Denies any fevers, chills, difficulty breathing, cough, or mucous production. Reports that she has enough supplemental O2 at home -Continue with Breztri ([id number]) BID -Albuterol PRN -DME request for neb machine placed 11/15/22 Assessment & Plan (11/15/2022 5:33 PM EDT): - Patient continues on supplemental oxygen: 6L/min @ rest or when sitting, and 8L/min when up and moving around. - Following with [facility] - Dr. Morrow - Chronic SOB. Denies any fevers, chills, difficulty breathing, cough, or mucous production. Reports that she has enough supplemental O2 at home -Continue with Breztri (qbeqsdhmjr-sxqyizgw-iizigufevb) BID -Albuterol PRN -DME request for neb [...] Plan (02/25/2024 6:25 PM EST): Following with [facility] Continue Mounmatthewro & Derreko, with goal of weight loss leading to bariatric surgery Lab Results Component Value Date HGBA1C 6.4 (A) 08/02/2023 HGBA1C 6.7 (A) 07/17/2023 HGBA1C 10.4 (A) 03/01/2023 HGBA1C TNP 07/20/2022 HGBA1C 7.8 (H) 01/11/2021 HGBA1C 11.9 (H) 11/11/2019 HGBA1C 11.9 (H) 11/11/2019 A1c: congratulated in improvement with A1c levels Eye exam: due, schedule with [facility] Foot exam: referral to podiatry 11/15/22 Dental: encouraged PNA: UTD ACEi/ARB: yes Statin: yes ASA: yes Lifestyle: Encouraged regular movement as able and aerobic exercise for improved glycemic control Encouraged daily foot checks Encouraged lean protein snacks and to avoid foods high in sugar and simple carbohydrates Medications: Per [facility] Toujeo insulin: 64 units at bedtime Humalog 14 units TID AC Mounjaro 7.5mg subcutaneous weekly Treatment Goals: A1c goal: <7% FBG goal: <130 2 hour post prandial goal: <180 Assessment & Plan (08/05/2023 5:09 PM EDT): Following with [facility] Continue Mounjaro & Toujeo, with goal of weight loss leading to bariatric surgery Lab Results Component Value Date HGBA1C 6.4 (A) 08/02/2023 HGBA1C 6.7 (A) 07/17/2023 HGBA1C 10.4 (A) 03/01/2023 HGBA1C 7.8 (H) 01/11/2021 HGBA1C 11.9 (H) 11/11/2019 HGBA1C 11.9 (H) 11/11/2019 A1c: congratulated in improvement with A1c levels Eye exam: due, schedule with [facility] Foot exam: referral to podiatry 11/15/22 Dental: encouraged PNA: UTD ACEi/ARB: yes Statin: yes ASA: yes Lifestyle: Encouraged regular movement as able and aerobic exercise for improved glycemic control Encouraged daily foot checks Encouraged lean protein snacks and to avoid foods high in sugar and simple carbohydrates Medications: Per [facility] Treatment Goals: A1c goal: <7% FBG goal: <130 2 hour post prandial goal: <180 Assessment & Plan (07/19/2023 10:16 AM EDT): Following with [facility] Continue Mounjaro with goal of weight loss leading to bariatric surgery Lab Results Component Value Date HGBA1C 10.4 (A) 03/01/2023 A1c: above goal Eye exam: due, schedule with [facility] Foot exam: referral to podiatry 11/15/22 Dental: encouraged PNA: UTD ACEi/ARB: yes Statin: yes ASA: yes Lifestyle: Encouraged regular movement as able and aerobic exercise for improved glycemic control Encouraged daily foot checks Encouraged lean protein snacks and to avoid foods high in sugar and simple carbohydrates Medications: Per [facility] Treatment Goals: A1c goal: <7% FBG goal: <130 2 hour post prandial goal: <180 Assessment & Plan (03/02/2023 4:56 PM EST): Following with [facility] Lab Results Component Value Date HGBA1C 10.4 (A) 03/01/2023 A1c: above goal Eye exam: due, schedule with [facility] Foot exam: referral to podiatry 11/15/22 Dental: encouraged PNA: UTD ACEi/ARB: yes Statin: yes ASA: yes Lifestyle: Encouraged regular movement as able and aerobic exercise for improved glycemic control Encouraged daily foot checks Encouraged lean protein snacks and to avoid foods high in sugar and simple carbohydrates Medications: ? ? Per [facility] Treatment Goals: A1c goal: <7% FBG goal: <130 2 hour post prandial goal: <180 Assessment & Plan (11/15/2022 5:38 PM EDT): Following with [facility] Lab Results Component Value Date HGBA1C 10.1 (A) 09/28/2022 A1c: above goal Eye exam: due, schedule with [facility] Foot exam: referral to podiatry 11/15/22 Dental: encouraged PNA: UTD ACEi/ARB: yes Statin: yes ASA: does not appear to be taking, although hx of [place]. Will refer to [place] for further eval. Lifestyle: Encouraged regular movement as able and aerobic exercise for improved glycemic control Encouraged daily foot checks Encouraged lean protein snacks and to avoid foods high in sugar and simple carbohydrates Medications: ? ? Per [facility] Treatment Goals: A1c goal: <7% FBG [...] Encounters Date Type Department Care Team Description 06/27/2024 10:30 AM EDT Clinical Support [facility] [address] [place] [address] 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, MINA Pain 06/27/2024 Refill [facility] [address] [place] [address] 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, MINA Pain; Calculus of gallbladder without cholecystitis without obstruction; Long-term current use of opiate analgesic; Dizziness, nonspecific 06/27/2024 Travel 06/26/2024 Telephone [facility] [address] [place] [address] Toyin Pollard FNP Ambulance transportation 06/18/2024 Refill [facility] [address] [place] [address] Toyin Pollard FNP Seasonal allergies 06/17/2024 Refill [facility] [address] [place] [address] Toyin Pollard FNP 06/06/2024 Refill [facility] [address] [place] [address] Toyin Pollard FNP Tinea 05/31/2024 Population Health Risk Score [facility] [address] [place] [address] [place] [phone] Provider, Population Health Generic 05/29/2024 Refill [facility] [address] [place] [address] Toyin Pollard FNP Pain; Calculus of gallbladder without cholecystitis without obstruction; Long-term current use of opiate analgesic 05/27/2024 Refill [facility] [address] [place] [address] Toyin Pollard FNP 05/23/2024 Refill [facility] [address] [place] [address] Toyin Pollard FNP 05/22/2024 Telephone [facility] [address] [place] [address] Toyin Pollard FNP Appointment Confirmation 05/22/2024 Telephone [facility] [address] [place] [phone] Toyin Pollard FNP Durable Medical Equipment 05/22/2024 Refill [facility] [address] [place] [address] Toyin Pollard FNP 05/21/2024 Telephone [facility] [address] [place] [address] 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, RN 05/21/2024 Telephone [facility] [address] [place] [address] 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, RN 05/20/2024 Telephone [facility] [address] [place] [address] Toyin Pollard FNP 05/16/2024 Telephone [facility] [address] [place] [address] Toyin Pollard FNP Durable Medical Equipment 05/15/2024 Patient Outreach [facility] [address] [place] [address] Toyin Pollard FNP Care Coordination (CH[facility] outreach for SDOH PT-1 and food needs-referral completed /) 05/15/2024 Telephone [facility] [address] [place] [address] Toyin Pollard FNP transportation needed 05/15/2024 Telephone [facility] [address] [place] [address] Toyin Pollard FNP Nurse Triage 05/15/2024 Refill [facility] [address] [place] [address] Toyin Pollard FNP Dizziness, nonspecific 04/30/2024 Refill [facility] [address] [place] [address] Toyin Pollard FNP Smokes cigarettes 04/22/2024 Telephone [facility] [address] [place] [address] Toyin Pollard FNP 04/19/2024 Refill [facility] [address] [place] [address] Toyin Pollard FNP Dizziness, nonspecific 04/15/2024 Travel 04/15/2024 Telephone [facility] [address] [place] [address] 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, RN excel specialist 04/15/2024 Telephone [facility] [address] [place] [address] Toyin Pollard FNP 04/14/2024 Refill [facility] [address] [place] [address] Toyin Pollard FNP 04/12/2024 Refill [facility] [address] [place] [address] Toyin Pollard FNP Long-term current use of opiate analgesic (Primary Dx); Pain; Calculus of gallbladder without cholecystitis without obstruction 04/04/2024 Orders Only [facility] External Provider, [facility] from Last 3 Months Immunizations Name Administration [...] your housing situation today? I have cesar nathaly 01/02/[address] you li [...] Description 08/05/2024 10:30 AM EDT Office Visit [facility] [address] [place] [address] Toyin Pollard FNP [address] [place] [address] 09/23/2024 11:00 AM EDT Telemedicine [facility] [address] [place] [address] 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 RN [address] [place] [address] Health Maintenance Due Date Last Done Comments [...] Full Mouth 04/23/2022 04/22/2019 Mammogram 05/27/2022 05/27/2020, 1207/2018, 02/21/2019 Dental Oral Exam 07/22/2023 01/20/2023, 04/22/2019 SDOH Screening 09/29/2023 09/28/2022 COVID-19 Vaccine ( season) 2023 02/24/2021, 11/20/2020, 04/01/2020 Influenza Vaccine (#1) 2023 , 11/30/2021, 02/24/2021, Additional history exists Depression Monitoring 02/02/2024 08/02/2023, 024 Diabetes: Hemoglobin A1C 02/02/2024 024, 07/17/2023, 03/01/2023, Additional history exists Cervical Cancer Screening 02/21/2024 HPV/Cotest 02/21/2024 02/20/2019 [...] 4:30 PM EDT) No Michelle Alegria, PharmD Procedures Procedure Name Priority Date/Time Associated Diagnosis Comments POCT BAKARI-14 URINE DRUG SCREEN Routine 06/27/2024 11:20 AM EDT Pain XR PELVIS 1-2 VIEWS Routine 05/02/2024 1 2:07 AM EST XR FOOT 3+ VIEWS RIGHT Routine 04/04/2024 [...] Recently Relevant to Health Maintenance Results * POCT BAKARI-14 Urine Drug Screen (06/27/2024 11:20 AM EDT) TCA, Urine Positive Urine Urine specimen obtained by clean catch procedure / Unknown 06/27/2024 11:20 AM EDT Narrative 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 RN - 06/27/2024 11:20 AM EDT Lot# [id number] Exp: 11-06-25 us Toyin Pollard DESK DIRECTOR POINT OF CARE TEST ENTER/EDIT ORDERABLES Final Result * XR Pelvis 1-2 Views (05/02/2024 12:07 AM EST) Anatomical Region Laterality Modality Body, Pelvis Radiographic Padmini ging 05/02/2024 12:0 7 AM EST Narrative 05/02/2024 12:10 AM EST ? [facility] ?[address] ?[place] [address] ?XRay Report ? Signed ? Patient: Elle Lopez ?MR#: [id number] ?? 57 ? : 1970 ?Acct:[id number] ? Age/Sex: 54 / F ?ADM Date: 05/01/24 ? Loc: HO.ED ? Attending Dr: ? Ordering Physician: Layne Chambers ?? Date of Service: 05/01/24 ?? Procedure(s): XR pelvis 1-2V ?? Accession Number(s): [id number] ? cc: Layne Chambers; [facility] ? CLINICAL HISTORY: pain, fx? Pelvis, 1 view ? COMPARISON: Portions of CT/SR - CT ABDOMEN PELVIS W IV CON - / 11:37 ?? EDT ? FINDINGS: ?? No acute fracture. No dislocation. ?? Unremarkable soft tissues. ? IMPRESSION: ?? No acute findings. ? This document has been electronically signed by: Eren Tolbert MD on ?? 05/02/2024 00:07:20 ? Dictated By: ?Eren Tolbert MD ? Signed By: ?<Electronically signed by Eren Tolbert MD in OV> ?05/02/24 0008 ? DD/ 0007 ? TD/TT: 05/02/247 ? Cloth Drier: ? Procedure Note Sadiq Image - 05/02/2024 [facility] [address] [place] [address]. [place] [address] XRay Report Signed Patient: Elle LopezMR#: [id number] 57 : 1970Acct:[id number] Age/Sex: 54 / FADM Date: 05/01/24 Loc: HO.ED Attending Dr: Ordering Physician: Layne Chambers Date of Service: 05/01/24 Procedure(s): XR pelvis 1-2V Accession Number(s): [id number] cc: Layne Chambers; [facility] CLINICAL HISTORY: pain, fx? Pelvis, 1 view COMPARISON: Portions of CT/SR - CT ABDOMEN PELVIS W IV CON - 09/12/22 11:37 EDT FINDINGS: No acute fracture. No dislocation. Unremarkable soft tissues. IMPRESSION: No acute findings. This document has been electronically signed by: Eren Tolbert MD on 05/02/2024 00:07:20 Dictated By: Eren Tolbert MD Signed By: <Electronically signed by Eren Tolbert MD in OV> 05/02/247 DD/ TD/TT: 05/02/246 Cloth Drier: [facility] External Provider IMG XR PROCEDURES Final Result * XR Foot 3+ Views Right (04/04/2024 7:08 PM EST) Anatomical Region Laterality Modality Lower Extremities, Foot Right Radiogra phic Imaging 04/04/2024 7:08 PM EST Narrative 04/04/2024 7:10 PM EST ? [facility] ?[address] ?[place] [address] ?XRay Report ? Signed ? Patient: John,Elle ?MR#: [id number] ?? 57 ? : 1970 ?Acct:[id number] ? Age/Sex: 54 / F ?ADM Date: 01/16/25 ? Loc: HO.ED ? Attending Dr: ? Ordering Physician: Silvia Jose ?? Date of Service: 04/04/24 ?? Procedure(s): XR foot RT min 3V ?? Accession Number(s): [id number] ? cc: [facility]; Silvia Jose ? CLINICAL HISTORY: pain [...] radiopaque retained ?? foreign body in the hyrzc-iv-znfp. ? IMPRESSION: ?? 1. Fragments about imaged [...] ? Signed By: ?<Electronically signed by Keny Gonzalez, MD in OV> ? 04/04/241908 ? DD/ 07 ? TD/TT: 04/04/241907 ? Cloth Drier: ? Procedure Note Anoop Babcock - 04/04/[address] [address] XRay Report Signed Patient: Elle LopezMR#: [id number] 57 : 1970Acct:[id number] Age/Sex: 54 / FADM Date: 04/04/24 Loc: HO.ED Attending Dr: Ordering Physician: Silvia Jose Date of Service: 04/04/24 Procedure(s): XR foot RT min 3V Accession Number(s): [id number] cc: [facility]; Jose,Silvia PA CLINICAL HISTORY: pain 3 view right foot [...] No radiopaque retained foreign body in the [id number]-px-akvg. IMPRESSION: 1. Fragments about imaged ankle are [...] in OV> 04/04/241908 DD/ 07 TD/TT: 04/04/241907 Cloth Drier: [facility] External Provider IMG XR PROCEDURES Final Result * XR Ankle 3+ Views Right (04/04/2024 7:05 PM EST) Anatomical Region Laterality Modality Lower Extremities, Ankle Right Radiogr aphic Imaging 04/04/2024 7:05 PM EST Narrative 04/04/2024 7:06 PM EST ? [facility] ?[address] ?[place] [address] ?XRay Report ? Signed ? Patient: Elle Lopez ?MR#: [id number] ?? 57 ? : 1970 ?Acct:[id number] ? Age/Sex: 54 / F ?ADM Date: 01/16/25 ? Loc: HO.ED ? Attending Dr: ? Ordering Physician: Silvia Jose ?? Date of Service: 04/04/24 ?? Procedure(s): XR ankle RT min 3V ?? Accession Number(s): [id number] ? cc: [facility]; Silvia Jose ? CLINICAL HISTORY: pain [...] ? DD/ 04 ? TD/TT: 04/04/241904 ? Cloth Drier: ? Procedure Note Sadiq, Image - 04/04/[address] [address] XRay Report Signed Patient: Alis Lopez#: [id number] 57 : 1970Acct:[id number] Age/Sex: 54 / FADM Date: 04/04/24 Loc: HO.ED Attending Dr: Ordering Physician: Silvia Jose Date of Service: 04/04/24 Procedure(s): XR ankle RT min 3V Accession Number(s): [id number] cc: [facility]; Silvia Jose CLINICAL HISTORY: pain 3 [...] Gonzalez MD Signed By: <Electronically signed by Keyn Gonzalez MD in OV> 04/04/241905 DD/ 04 TD/TT: 04/04/241904 Cloth Drier: [facility] External Provider IMG XR PROCEDURES Final Result * (ABNORMAL) POCT HGB A1C (08/02/2023 4:30 PM EDT) [facility] Hemoglobin A1C 6.4(A) 4.0 - 6.0 % QC Media Lot # [id number] Lot# Expiration Date [phone] Blood 08/02/2023 4:30 PM EDT Toyin Pollard DESK DIRECTOR POINT OF CARE TEST ENTER/EDIT ORDERABLES Final Result * Hepatitis C Antibody with Reflex to HCV, RNA, Quantitative, Real-Time PCR (07/19/2023 12:30 PM EDT) [facility] Hepatitis C Antibody Nonreactive Nonreactive [facility] Comment:Antibodies to HCV no t detected; does not exclude early acuteHCV infection. Blood Venous blood specimen / Unknown 07/19/2023 12:30 PM EDT 07/19/2023 1:00 PM EDT Agustina Toribio MD LAB BLOOD ORDERABLES Final Res ult [facility] [address] [place] [phone] * HIV-1/2 Antigen and Antibodies, Fourth Generation, with Reflexes (07/19/2023 12:30 PM EDT) Pathologist [facility] HIV AB/AG Nonreactive Nonreactive [facility] Comment:HIV-1 p24 Ag and/or HIV-1/HIV-2 Ab not detected.A test result that is nonreactive does not exclude thepossibility of exposure to or infection with HIV-1 and/orHIV-2. Nonreactive results in this assay for individualswith prior exposure to HIV-1 and/or HIV-2 may be due toantigen and antibody levels that are below the limit ofdetection of this assay.The [email or web address] HIV Ag/Ab Combo assay result andsupplemental assay results should be interpreted inconjunction with the patient's clinical presentation,history and other laboratory results. If the results areinconsistent with clinical evidence, additional testing issuggested to confirm the result. Blood Venous blood specimen / Unknown 07/19/2023 12:30 PM EDT 07/19/2023 1:00 PM EDT us Agustina Toribio MD LAB BLOOD ORDERABLES Final Res ult [facility] [address] [place] [phone] * (ABNORMAL) Lipid Panel, Standard (07/17/2023 4:09 PM EDT) Triglycerides 171(H) <150 mg/dL [facility] Comment:Desirable Triglyceri de: less than 150 mg/dLBorderline High Triglyceride 150-199 mg/dLHigh Triglyceride: 200-499 mg/dLVery High Triglyceride: greater than or equal to 5OO mg/dL Cholesterol 176 <200 mg/dL [facility] Comment:Desirable Cholestero l: less than 200 mg/dLBorderline High Cholesterol: 200-239 mg/dLHigh Cholesterol: greater than 239 mg/dL LDL Cholesterol Calculated 77 <100 mg/dL [facility] Comment:Desirable LDL: less than 100 mg/dLNear Optimal/Above Optimal LDL: 110- 129 mg/dLBorderline High LDL: 130-159 mg/dLHigh LDL: 160-189 mg/dLVery High LDL: greater than or equal to 190 mg/dL HDL Cholesterol 65 >40 mg/dL [facility] Comment:Desirable HDL: great er than 40 mg/dL Note: This HDL assay may give artificially low results in patients with liver disease. Blood Venous blood specimen / Unknown 07/17/2023 4:09 PM EDT 07/17/2023 5:46 PM EDT us Agustina Toribio MD LAB BLOOD ORDERABLES Final Res ult [facility] [address] [place] [address] [phone] * Cologuard?? colon cancer screening (03/08/2023 3:30 PM EST) Cologuard Result Negative Negative 03/16/20 9:24 AM EST [facility] (CLIA #:[id number]) Comment: NEGATIVE TEST RESULT. A negative Cologuard [...] screened with both Cologuard and colonoscopy. (Kevin Davis al, N Engl J Med 2014;370(14):1286- 1297) The normal value (reference range) for this assay is negative. COLOGUARD RE-SCREENING RECOMMENDATION: Periodic colorectal cancer screening is an important part of preventive healthcare for asymptomatic individuals at average risk for colorectal cancer. ??Following a negative Cologuard result, the [place] Cancer Society and U.S. Multi-Society Task Force screening guidelines recommend a Cologuard re-screening interval of 3 years. References: [place] [employer] Guideline for Colorectal Cancer Screening: https://www.cancer.org/cancer/klxsv-talflp-cpcjts/qnycnofqd-pcjcstgzu-nwjpwui/ac s-rec ommendations.html.; Miguel DK, Maria Elena CR, Lester MaherK, Colorectal Cancer Screening: Recommendations for Physicians and Patients from the U.S. Multi-Society Task Force on Colorectal Cancer Screening , Am J Gastroenterology 2017; 112:7008-2015. TEST DESCRIPTION: Composite algorithmic analysis of stool [...] screened with both Cologuard and colonoscopy. (Kevin Davis al, N Engl J Med 2014;370(14):0201-1667.) Cologuard may produce a false negative or false positive result (no colorectal cancer or precancerous polyp present at colonoscopy follow up). A negative Cologuard test result does not guarantee the absence of CRC or advanced adenoma (pre-cancer). The current Cologuard screening interval is every 3 years. ([place] [employer] and U.S. Multi-Society Task Force). Cologuard performance data in a 10,000 patient pivotal study using colonoscopy as the reference method can be accessed at the following location: www.Scoop.it.Bloglovin/results. Additional description of the Cologuard test process, warnings and precautions can be found at www.Lendinord.com. Stool specimen (specimen) 03/08/2023 3:30 PM EST 03/09/2023 7:12 PM EST Toyin Pollard [facility] MOLECULAR DIAGNOSTICS DRE FRY Final Result [facility] (CLIA #:[id number]) [place] [place] [address], [place] [phone] * Mammography Report 1 (05/27/2020 2:30 PM [...] diagnostic category. 11/12/2019 10:2 7 AM EDT us Sally Meade MD LAB URINE ORDERABLES Final Resul t Performing Organization Address [facility]/ZIP Co de Phone Number [facility] [address] * HPV mRNA E6/E7 (02/20/2019 8:58 AM EST) HPV mRNA E6/E7 Not Detected NOT DETECTED [facility] Comment: This test was performed using the APTIMA(R) HPV Assay ([employer] This assay detects E6/E7 viral messenger RNA (mRNA) from 14 high-risk HPV types (16,18,31,33,35,39,45,51, 52,56,58,59,66,68). For additional information please refer to: http://education.Lob/faq/QXG637d8 (This link is being provided for informational/ educational purposes only.) The analytical performance characteristics of this assay have been determined by [employer] [place], [place]. The modifications have not been cleared or approved by the FDA. This assay has been validated pursuant to the CLIA regulations and is used for clinical purposes. Test Performed by [facility], [employer] [facility], [address] [place] [address] Randy Willson M.D., Ph.D., Director of Laboratories , CLIA [id number] Please note: ??Effective 11/30/2015, HPV testing will be performed using [employer]'s APTIMA test which targets mRNA. Detecting mRNA instead of DNA, as in older methods, offers significant improvements in specificity. 02/20/2019 8:58 AM EST us Carina Fontaine CNM HISTORICAL/NON ORDERABLE LABS Final Result Performing Organization Address [facility] Co de Phone Number [facility] [address] from Last 3 Months or Most Recently Relevant to Health Maintenance Insurance Care Teams Dental Patient Coordinator Relationship Specialty Start Date End Date Toyin Pollard FNP [address] [place] [address] PCP - General Family Medicine 01/11/21 Satish Brennan MD [address] [place] [address] Endocrinology 02/22/24 Jacob Morrow [address] [place] [address] Pulmonary Disease 02/22/24 Nicolasa Escobar MD [address] [place] [address] Dr [facility] [address] [place] [address] Neurology 02/22/24 Shen Davis MD [address] [place] [address] Nephrology 02/22/24 Ellyn Connolly Import/Export AdministratorTherapy Administrative Assistant 08/17/23 [facility] 01/11/24
--- OUTSIDE RECORDS SUMMARY | 2024-06-28 16:41 | XMS_ITS | Encounter Summary ---
Author Organization [email or web address] Address [address] [facility] 7t [place] [address] Care Team Providers Care Belt And Link Shop Supervisor Name Role Phone Toyin Pollard Primary Care Provider Satish Brennan MD Unavailable Jacob Morrow Unavailable [phone] Nicolasa Escobar MD Unavailable [phone] Shen Davis MD Unavailable [phone] Reason for Visit * Reason Onset Date Comments Durable Medical Equipment 07/06/2022 Encounter Details Date Type Department Care Team (Late st Contact Info) Description 07/06/2022 Telephone [facility] MEDICINE 230 [place] [address] Toyin Pollard FNP 505 [place], [place] [phone] Durable Medical Equipment Social History Tobacco Use [...] 08/05/2024 10:30 AM EDT Office Visit [facility] [address] [place] [address] Toyin Pollard FNP 505 [place] [address] 09/23/2024 11:00 AM EDT Telemedicine [facility] [address] [place] [address] 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 RN 505 [place] [address] documented as of this encounter Visit Diagnoses Not on filedocumented in this encounter Care Teams Belt And Link Shop Supervisor Relationship Specialty Start Date End Date Toyin Pollard FNP [address] [place] [address] PCP - General Family Medicine 01/11/21 Satish Brennan MD [address] [facility] 104 [place] [address] Endocrinology 02/22/24 Jacob Morrow 5 [place] [address] Pulmonary Disease 02/22/24 Nicolasa Escobar MD [address] [place] [address] Dr [facility] [address] [place] [address] Neurology 02/22/24 Shen Davis MD [address] [place] [address] Nephrology 02/22/24 Ellyn Connolly Medication NurseWinding Inspector 08/17/23 [facility] 01/11/24 01/21/24 [facility] 01/11/24 documented as of this encounter
--- OUTSIDE RECORDS SUMMARY | 2024-06-28 16:41 | XMS_ITS | Encounter Summary ---
Author Organization [employer] Address [address] [facility] 7t [place] [address] Care Team Providers Care Vice President Supply Chain Name Role Phone Toyin Pollard LOUIE Primary Care Provider [phone] Satish Brennan MD Unavailable [phone] Jacob Morrow Unavailable [phone] Nicolasa Escobar MD Unavailable [phone] Shen Davis MD Unavailable [phone] Encounter Details Date Type Department Care Team ([facility] Contact Info) Description 07/21/2022 Orders Only [facility] [address] [place] [address] Ellyn Chery LPN Social History Tobacco Use [...] Upcoming Encounters Date Type Department Care Team ([facility] Contact Info) Description 08/05/2024 10:30 AM EDT Office Visit [facility] 505 [place] [address] Toyin Pollard FNP 505 [place] [address] 09/23/2024 11:00 AM EDT Telemedicine [facility] [address] [place] [address] 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, RN [address] [place] [address] documented as of this encounter Visit Diagnoses Not on filedocumented in this encounter Care Teams Vice President Supply Chain Relationship Specialty Start Date End Date Toyin Pollard FNP [address] [place] [address] PCP - General Family Medicine 01/11/21 Satish Brennan MD [address] [place] [address] Endocrinology 02/22/24 Jacob Morrow 5 [place] [address] Pulmonary Disease 02/22/24 Nicolasa Escobar MD [address] [place] [address] 140 [place] [address] Neurology 02/22/24 Shen Davis MD [address] [place] [address] Nephrology 02/22/24 Ellyn Connolly Banjo RepairerAviation Medicine Specialist 08/17/23 [facility] 01/11/24 01/21/24 [facility] 01/11/24 documented as of this encounter
--- OUTSIDE RECORDS SUMMARY | 2024-06-28 16:41 | XMS_ITS | Encounter Summary ---
Author Organization [email or web address] Address [address] [facility] 7t [place] [address] Care Team Providers Care Sole Skiver Name Role Phone JuddToyin barry LOUIE Primary Care Provider [phone] Satish Brennan MD Unavailable Jacob Morrow Unavailable [phone] Nicolasa Escobar MD Unavailable Shen Davis MD Unavailable [phone] Encounter Details Date Type Department Care Team (Late st Contact Info) Description 07/20/2023 Orders Only [facility] MEDICINE [address] [place], [place] [phone] Agustina Toribio MD 230 [place], [place] [phone] Hyperkalemia (Primary Dx) Social History Tobacco Use [...] 10:30 AM EDT Office Visit [facility] MED & PEDS 505 [place] [address] Toyin Pollard FNP 505 [place] [address] 09/23/2024 11:00 AM EDT Telemedicine [facility] MED & PEDS 505 [place] [address] 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, RN 505 [place] [address] Scheduled Orders Name Type Priority Associated Diagnoses [...] documented as of this encounter Care Teams Sole Skiver Relationship Specialty Start Date End Date Toyin Pollard FNP 230 [place] [address] PCP - General Family Medicine 01/11/21 Satish Brennan MD [address] [place] [address] Endocrinology 02/22/24 Jacob Morrow 5 [place] [address] Pulmonary Disease 02/22/24 Nicolasa Escobar MD [address] [place] [address] [place] [address] Neurology 02/22/24 Shen Davis MD [address] [place] [address] Nephrology 02/22/24 Ellyn Connolly Adjunct Professor Of EnglishFretted Instrument Repairer 08/17/23 [facility] 01/11/24 01/21/24 [facility] 01/11/24 documented as of this encounter
--- OUTSIDE RECORDS SUMMARY | 2024-06-28 16:41 | XMS_ITS | Encounter Summary ---
Author Organization [employer] Address [address] [facility] 7t [place] [address] Care Team Providers Care Silvering Applicator Name Role Phone Toyin Pollard Primary Care Provider [phone] Satish Brennan MD Unavailable [phone] Jacob Morrow Unavailable [phone] Nicolasa Escobar MD Unavailable Shen Davis MD Unavailable [phone] Reason for Visit * Reason Comments Med Refill Encounter Details Date Type Department Care Team ([facility] st Contact Info) Description 01/24/2023 Refill [facility] 505 [place], [place] [phone] Toyin Pollard FNP 505 [place], [place] [phone] Pain Social History Tobacco Use Types Packs/Day [...] 10:30 AM EDT Office Visit [facility] MED & PEDS 505 [place] [address] Toyin Pollard FNP 505 [place] [address] 09/23/2024 11:00 AM EDT Telemedicine [facility] MED & PEDS 505 [place] [address] 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, MINA 505 [place] [address] documented as of this encounter Goals Goal [...] documented as of this encounter Care Teams Silvering Applicator Relationship Specialty Start Date End Date Toyin Pollard FNP [address] [place] [address] PCP - General Family Medicine 01/11/21 Satish Brennan MD [address] [place] [address] Endocrinology 02/22/24 Jacob Morrow [address] [place] [address] Pulmonary Disease 02/22/24 Nicolasa Escobar MD [address] [place] [address] [address] Neurology 02/22/24 Shen Davis MD [address] [place] [address] Nephrology 02/22/24 Ellyn Connolly Camera MakerContractor Broomcorn Threshing 08/17/23 [facility] 01/11/24 01/21/24 [facility] 01/11/24 documented as of this encounter
--- OUTSIDE RECORDS SUMMARY | 2024-06-28 16:42 | XMS_ITS | Encounter Summary ---
Author Organization [employer] Address [address] [facility] 7t [place] [address] Care Team Providers Care Support Director Name Role Phone Toyin Pollard Primary Care Provider Satish Brennan MD Unavailable [phone] Jacob Morrow Unavailable [phone] Nicolasa Escobar MD Unavailable [phone] Shen Davis MD Unavailable [phone] Reason for Visit * Reason Onset Date Comments Nurse Triage 03/08/2023 Encounter Details Date Type Department Care Team (Late st Contact Info) Description 03/08/2023 Telephone [facility] MEDICINE 230 [place], [place] [phone] Toyin Pollard FNP 505 [place], [place] [phone] Nurse Triage Social History Tobacco Use Types [...] Upcoming Encounters Date Type Department Care Team ([facility] st Contact Info) Description 08/05/2024 10:30 AM EDT Office Visit [facility] MED & PEDS 505 [place] [address] Toyin Pollard FNP 505 [place] [address] 09/23/2024 11:00 AM EDT Telemedicine [facility] MED & PEDS 505 [place] [address] 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 RN 505 [place] [address] documented as of this encounter Goals Goal Patient Goal Type Associated Problems Recent Progress Patient-Stated? Author Hemoglobin A1c < 7 Result Component 6.4(08/02/2023 4:30 PM EDT) No Michelle Alegria, Joe documented as of this encounter Visit Diagnoses Not on filedocumented in this encounter Additional Health Concerns Assessment Noted Time PHQ-9 Depression Total Score: 0 09/29/19 2:03 PM EDT documented as of this encounter Care Teams Support Director Relationship Specialty Start Date End Date Toyin Pollard FNP 230 [place] [address] PCP - General Family Medicine 01/11/21 Satish Brennan MD [address] [facility] [address] [facility] [address] [place] [address] Endocrinology 02/22/24 Jacob Morrow 5 [place] [address] Pulmonary Disease 02/22/24 Nicolasa Escobar MD [address] [place] [address] Dr [address] [place] [address] Neurology 02/22/24 Shen Davis MD [address] [facility] [address] [facility] 302 [place] [address] Nephrology 02/22/24 Ellyn Connolly Employee Services ManagerSupervisor Microfilm Duplicating Unit 08/17/23 [facility] 01/11/24 01/21/24 [facility] 01/11/24 documented as of this encounter
--- OUTSIDE RECORDS SUMMARY | 2024-06-28 16:42 | XMS_ITS | Encounter Summary ---
Author Organization [employer] Address [address] [facility] 7t [place] [address] Care Team Providers Care Body Finisher Name Role Phone Toyin Pollard Primary Care Provider Satish Brennan MD Unavailable Jacob Morrow Unavailable [phone] Nicolasa Escobar MD Unavailable Shen Davis MD Unavailable [phone] Reason for Visit * Reason Onset Date Comments Durable Medical Equipment 05/22/2024 Encounter Details Date Type Department Care Team (Late st Contact Info) Description 05/22/2024 Telephone [facility] MEDICINE 230 [place], [place] [phone] Toyin Pollard FNP 505 [place], [place] [phone] Durable Medical Equipment Social History Tobacco Use [...] Telephone Encounter - Mona Ivory LPN - 06/28/2024 9:27 AM EDT Nurse spoke with [place] regarding message below and re informed that Rx was regenerated and re faxedto [facility]. Again update that insurance covers what's on there formulary for DME. Tc from [place] with [facility] to check status of DME. [phone] * Telephone Encounter - Lynne Flaherty - 06/26/2024 11:24 AM EDT Tc from [place] with [facility] to check status of DME. [phone] * Telephone Encounter - Mona Ivory LPN - 06/18/2024 9:39 AM EDT Call was returned to outpatient case manager No Answer LVM to [facility] -wipes -adult diapers 3xl -Incontinence pads/pt requesting a different brand due to rash. Pt was triaged on 05/15/24 for rash PLEASE return call to [facility] and let her know status [phone] Yorlenis been trying to help pt get DME supplies and been waiting since April. Yorlenis inform pt doesn't have enough source of income to buy supplies as is needed URGENTLY ! * Telephone Encounter - Christina Paul - 06/14/2024 4:16 PM EDT Tc from [facility] requesting DME -wipes -adult diapers 3xl -Incontinence pads/pt requesting a different brand due to rash. Pt was triaged on 05/15/24 for rash PLEASE return call to [facility] and let her know status [phone] Yorlenis been trying to help pt get DME supplies and been waiting since April. Yorlenaniket inform pt doesn't have enough source of income to buy supplies as is needed URGENTLY ! * Telephone Encounter - Mona Ivory LPN - 05/22/2024 1:33 PM EST clinical writer communicated with [facility] to seek clarification regarding the message below. clinical writer was informedthat the patient has received the durable medical equipment (DME), although it is not the specific brand requested, as the items being sent are those covered by the patient's insurance. clinical writer also updated the patient on this information and recommended that the patient contact their insurance provi marc to inquire about coverage details. Tc from [place] with [facility] requesting DME -wipes -adult diapers 3xl -Incontinence pads/pt requesting a different brand due to rash. Pt was triaged on 05/15/24 for rash * Telephone Encounter - Silva Patrick - 05/22/2024 12:18 PM EST Tc from [place] with [facility] requesting DME -wipes -adult diapers 3xl -Incontinence pads/pt requesting a different brand due to rash. Pt was triaged on 05/15/24 for rash documented in this encounter Plan of Treatment Upcoming Encounters Date Type Department Care Team (Late st Contact Info) Description 08/05/2024 10:30 AM EDT Office Visit [facility] MED & PEDS 505 [place] [address] Toyin Pollard FNP 505 [place] [address] 09/23/2024 11:00 AM EDT Telemedicine [facility] 505 [place], [place] [phone] 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 RN 505 [place], [place] [phone] documented as of this encounter Goals Goal [...] documented as of this encounter Care Teams Body Finisher Relationship Specialty Start Date End Date Toyin Pollard FNP [address] [place] [address] PCP - General Family Medicine 01/11/21 Satish Brennan MD [address] [place] [address] Endocrinology 02/22/24 Jacob Morrow 5 [place] [address] Pulmonary Disease 02/22/24 Nicolasa Escobar MD [address] [place] [address] [place] [address] Neurology 02/22/24 Shen Davis MD [address] [place] [address] Drive [address] [place] [address] Nephrology 02/22/24 Ellyn Connolly Rn DialysisShipping Checker 08/17/23 [facility] 01/11/24 documented as of this encounter
--- OUTSIDE RECORDS SUMMARY | 2024-06-28 16:42 | XMS_ITS | Encounter Summary ---
Author Organization [employer] Address [address] [facility] 7t [place] [address] Care Team Providers Care Asbestos Textile Supervisor Name Role Phone Toyin Pollard Primary Care Provider Satish Brennan MD Unavailable [phone] Jacob Morrow Unavailable [phone] Nicolasa Escobar MD Unavailable Shen Davis MD Unavailable [phone] Reason for Visit * Reason Onset Date Comments Forms/questionnaires 03/03/2022 Encounter Details Date Type Department Care Team (Late st Contact Info) Description 03/03/2022 Telephone [facility] [address] [place] [address] Toyin Pollard FNP [address] [place], [place] [phone] Forms/questionnaires Social History Tobacco Use Types Packs/Day [...] 12:07 PM EST Tc from Naye from [facility] requesting status on 485 form . States they have faxed several times since November and have not yet received back . Informs needs by 03/15/22 if not pt will be discharged from services. Best contact number [phone]. There fax number is [phone] . documented in this encounter Plan of Treatment Upcoming Encounters Date Type Department Care Team (Late st Contact Info) Description 08/05/2024 10:30 AM EDT Office Visit [facility] & PEDS [address] [place] [address] Toyin Pollard FNP 505 [place] [address] 09/23/2024 11:00 AM EDT Telemedicine [facility] [address] [place] [address] 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 RN 505 [place] [address] documented as of this encounter Visit Diagnoses Not on filedocumented in this encounter Care Teams Asbestos Textile Supervisor Relationship Specialty Start Date End Date Toyin Pollard FNP [address] [place] [address] PCP - General Family Medicine 01/11/21 Satish Brennan MD [address] [place] [address] Endocrinology 02/22/24 Jacob Morrwo 5 [place] [address] Pulmonary Disease 02/22/24 Nicolasa Escobar MD [address] [place] [address] [place] [address] Neurology 02/22/24 Shen Davis MD [address] [place] [address] Nephrology 02/22/24 Ellyn Connolly Senior Manager Creative ServicesInking Machine Tender 08/17/23 [facility] 01/11/24 01/21/24 [facility] 01/11/24 documented as of this encounter
--- OUTSIDE RECORDS SUMMARY | 2024-06-28 16:42 | XMS_ITS | Encounter Summary ---
Author Organization [employer] Address [address] [facility] 7t [place] [address] Care Team Providers Care Chemical Operations Specialist Name Role Phone Toyin Pollard Primary Care Provider Satish Brennan MD Unavailable [phone] Jacob Morrow Unavailable [phone] Nicolasa Escobar MD Unavailable Shen Davis MD Unavailable [phone] Encounter Details Date Type Department Care Team (Late st Contact Info) Description 03/29/[address] [facility] MED & PEDS [address] [place], [place] [phone] Maritza Daniel FNP [address] [place] [address] Social History Tobacco Use Types Packs/Day Years [...] 08/05/2024 10:30 AM EDT Office Visit [facility] 505 [place] [address] Toyin Pollard FNP 505 [place] [address] 09/23/2024 11:00 AM EDT Telemedicine [facility] 505 [place] [address] 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, RN 505 [place] [address] documented as of this encounter Goals Goal [...] documented as of this encounter Care Teams Chemical Operations Specialist Relationship Specialty Start Date End Date Toyin Pollard FNP [address] [place] [address] PCP - General Family Medicine 01/11/21 Satish Brennan MD [address] [place] [address] Endocrinology 02/22/[address] [place] [address] Pulmonary Disease 02/22/24 Nicolasa Escobar MD [address] [place] [address] Dr [facility] 140 [place] [address] Neurology 02/22/24 Shen Davis MD [address] [place] [address] Nephrology 02/22/24 Ellyn Connolly Covered Button MakerAnimal Rehabilitator 08/17/23 [facility] 01/11/24 01/21/24 [facility] 01/11/24 documented as of this encounter
--- OUTSIDE RECORDS SUMMARY | 2024-06-28 16:42 | XMS_ITS | Encounter Summary ---
Author Organization [employer] Address 75 [facility] 7t [place] [address] Care Team Providers Care Mine Car Dispatcher Name Role Phone Toyin Pollard Primary Care Provider Satish Brennan MD Unavailable [phone] Jacob Morrow Unavailable [phone] Nicolasa Escobar MD Unavailable Shen Davis MD Unavailable [phone] Reason for Visit * Reason Onset Date Comments Durable Medical Equipment 05/16/2024 Encounter Details Date Type Department Care Team (Late st Contact Info) Description 05/16/2024 Telephone [facility] [address] [place], [place] [phone] Toyin Pollard FNP 505 [place], [place] [phone] Durable Medical Equipment Social History Tobacco Use [...] encounter Miscellaneous Notes * Telephone Encounter - Keyur Ramsey - 05/16/2024 12:46 PM EST Tc from [facility] requesting an Oxygen Tank. Would new diaper briefs (3XL) (HART) <----- Brief that dont give pt a rash and she prefers these. documented in this encounter Plan of Treatment Upcoming Encounters Date Type Department Care Team (Late st Contact Info) Description 08/05/2024 10:30 AM EDT Office Visit [facility] MED & PEDS 505 [place] [address] Toyin Pollard FNP 505 [place] [address] 09/23/2024 11:00 AM EDT Telemedicine [facility] MED & PEDS 505 [place] [address] 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, MINA 505 [place] [address] documented as of this encounter Goals Goal [...] documented as of this encounter Care Teams Mine Car Dispatcher Relationship Specialty Start Date End Date Toyin Pollard FNP [address] [place] [address] PCP - General Family Medicine 01/11/21 Satish Brennan MD [address] [place] [address] Endocrinology 02/22/24 Jacob Morrow 5 [place] [address] Pulmonary Disease 02/22/24 Nicolasa Escobar MD [address] [place] [address] Dr [facility] 140 [place] [address] Neurology 02/22/24 Shen Davis MD [address] [place] [address] Nephrology 02/22/24 Ellyn Connolly Paving Bed MakerYarding Supervisor 08/17/23 [facility] 01/11/24 documented as of this encounter
--- OUTSIDE RECORDS SUMMARY | 2024-06-28 16:42 | XMS_ITS | Encounter Summary ---
Author Organization [employer] Address [address] [facility] 7t [place] [address] Care Team Providers Care Powder Hand Name Role Phone Toyin Pollard LOUIE Primary Care Provider Satish Brennan MD Unavailable Jacob Morrow Unavailable [phone] Nicolasa Escobar MD Unavailable Shen Davis MD Unavailable [phone] Reason for Visit * Reason Onset Date Comments Med Refill 06/27/2024 Encounter Details Date Type Department Care Team (Late st Contact Info) Description 06/27/2024 Refill [facility] MED & PEDS 505 [place] [address] 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, RN 505 [place] [address] Pain; Calculus of gallbladder without cholecystitis without obstruction; Long-term current use of opiate analgesic; Dizziness, nonspecific Social History Tobacco Use Types [...] is your housing situation today? I have ceasr andersen 01/02/[address] you [...] * Telephone Encounter - LOUIE Finley - 06/27/2024 2:23 PM EDT Tier 3 (Q4 month visits). At least utox annually, but ok for other visits to be tele. Thanks! * Telephone Encounter - 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 RN - 06/27/2024 11:32 AM EDT Pt came to the visit by ambulance on a stretcher. Utox positive for TCA only, pt takes Amitriptyline. Pill count not performed as pt did not bring pills to the visit, states takes it always 1 pill/day, 3 expected. PE with you 08/05/24. What APPOINTMENT CLERK Tier would you like this patient to be? Tier 1 = HIGH RISK, Monthly APPOINTMENT CLERK visits Tier 2 = MODerate RISK, Q3 Month visits Tier 3 = LOW RISK = Q4-6 month visits documented in this encounter Plan of Treatment Upcoming Encounters Date Type Department Care Team (Late st Contact Info) Description 08/05/2024 10:30 AM EDT Office Visit [facility] & PEDS 505 [place] [address] Toyin Pollard FNP 505 [place], [place] 09/23/2024 11:00 AM EDT Telemedicine [facility] & P[facility] [address] [place] [address] 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 RN 505 [place], [place] [phone] documented as of this encounter Goals Goal Patient Goal Type Associated Problems Recent Progress Patient-Stated? Author Hemoglobin A1c < 7 Result Component 6.4(08/02/2023 4:30 PM EDT) No Michelle Alegria, PharmD documented as of this encounter Visit Diagnoses Diagnosis Pain Generalized pain Calculus of gallbladder without cholecystitis without obstruction Long-term current use of opiate analgesic Encounter for long-term (current) use of other medications Dizziness, nonspecific Dizziness and giddiness documented in this encounter Additional Health Concerns Assessment Noted Time PHQ-9 Depression Total Score: 13 024 4:37 PM EDT documented as of this encounter Care Teams Powder Hand Relationship Specialty Start Date End Date Toyin Pollard FNP [address] [place] [address] PCP - General Family Medicine 01/11/21 Satish Brennan MD [address] [facility] [address] [place] [address] Endocrinology 02/22/24 Jacob Morrow 5 [place], [place] Pulmonary Disease 02/22/24 Nicolasa Escobar MD [address] [place] [address] Kameron Solis [place], [place] [phone] Neurology 02/22/24 Shen Davis MD [address] [place] [address] Nephrology 02/22/24 Ellyn Connolly Rn Coronary Care UnitCopyist 08/17/23 [facility] 01/11/24 documented as of this encounter
--- OUTSIDE RECORDS SUMMARY | 2024-06-28 16:42 | XMS_ITS | Encounter Summary ---
Author Organization [employer] Address [address] [facility] 7t [place] [address] Care Team Providers Care Occupational Therapy Aides Teacher Name Role Phone Toyin Pollard LOUIE Primary Care Provider Satish Brennan MD Unavailable [phone] Jacob Morrow Unavailable [phone] Nicolasa Escobar MD Unavailable [phone] Shen Davis MD Unavailable [phone] Encounter Details Date Type Department Care Team (Latest Contact Info) Description 06/27/2024 Travel Social History Tobacco Use Types Packs/Day [...] 10:30 AM EDT Office Visit [facility] MED & PEDS 505 [place] [address] Toyin Pollard FNP 505 [place] [address] 09/23/2024 11:00 AM EDT Telemedicine [facility] MED & PEDS 505 [place] [address] 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, RN 505 [place] [address] documented as of this encounter Goals Goal [...] documented as of this encounter Care Teams Occupational Therapy Aides Teacher Relationship Specialty Start Date End Date Toyin Pollard FNP 230 [place] [address] PCP - General Family Medicine 01/11/21 Satish Brennan MD [address] [place] [address] Endocrinology 02/22/24 Jacob Morrow [address] [place] [address] Pulmonary Disease 02/22/24 Nicolasa Escobar MD [address] [place] [address] [place] [address] Neurology 02/22/24 Shen Davis MD [address] [place] [address] Nephrology 02/22/24 Ellyn Connolly Coarse Wire DrawerSpanish Interpreter 08/17/23 [facility] 01/11/24 documented as of this encounter
--- OUTSIDE RECORDS SUMMARY | 2024-06-28 16:42 | XMS_ITS | Encounter Summary ---
Author Organization [employer] Address [address] [facility] 7t [place] [address] Care Team Providers Care Air Brake Worker Name Role Phone Toyin Pollard LOUIE Primary Care Provider Satish Brennan MD Unavailable Jacob Morrow Unavailable [phone] Nicolasa Escobar MD Unavailable Shen Davis MD Unavailable [phone] Reason for Visit * Reason Comments controlled substance treatment Encounter Details Date Type Department Care Team ([facility] st Contact Info) Description 06/27/2024 10:30 AM EDT Clinical Support [facility] MED & PEDS 505 [place] [address] 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, RN 505 [place] [address] Pain Social History Tobacco Use Types Packs/Day [...] the past 12 months, has t he [employer], gas, oil or water [employer] threatened to shut off services in your home? No 01/02/2023 Depression Answer Date Recorded Patient Health Questionnaire-2 Score 4 08/02/2023 Comments Unknown Sex and Gender Information Value Date Recorded Sex Assigned at Female 01/17/2022 10:36 AM EDT Legal Sex Female 10:36 AM EDT Gender Identity Female 01/17/2022 10:36 AM EDT Sexual Orientation Straight 01/17/2022 10 :36 AM EDT documented as of this encounter Progress Notes * 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 RN - 06/27/2024 10:30 AM EDT S: HEARING THERAPIST RV. Patient is bed bound. Patient came to the visit by ambulance on a stretcher. Prescribed Tramadol 50mg Q24 PRN. States she has been taking as prescribed, took her last Tramadol pill today. Continues to deny smoking cigarettes, ETOH, marijuana and Illicit drug use. States she is vaping and 1 vape lasts her about 3 weeks . States she is currently not in pain, but c/o vertigo and states she is not comfortable on the stretcher. HEARING THERAPIST Agreement renewed today. O: Pt currently prescribed Tramadol 50mg Q24 PRN. PRODUCTION CLERK verified today. Rx last filled on 06/03/24. Pill count not performed as pt did not bring pills to the visit, 3 expected. Patient states she alwaystakes 1 pill/ day. Last PCP visit was 02/21/24. Pt unable to provide urine sample on her own, straight catheter used. Utox performed, positive for TCA only, patient takes Amitriptyline. A: TELE HEARING THERAPIST Revisit: Chronic Opioid use related to pain. P: Pt to continue taking medication only as prescribed; Next HEARING THERAPIST TELE RV appointment scheduled for 09/23/24 @ 11am. PE with PCP 08/05/24. F/U sooner PRN. Pt verbalized understanding and agreed to plan. documented in this encounter Plan of Treatment Upcoming Encounters Date Type Department Care Team (Late st Contact Info) Description 08/05/2024 10:30 AM EDT Office Visit [facility] MED & PEDS 505 [place] [address] Toyin Pollard FNP 505 [place] [address] 09/23/2024 11:00 AM EDT Telemedicine [facility] MED & PEDS 505 [place], [place] [phone] 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 RN 505 [place], [place] [phone] documented as of this encounter Goals Goal Patient Goal Type Associated Problems Recent Progress Patient-Stated? Author Hemoglobin A1c < 7 Result Component 6.4(08/02/2023 4:30 PM EDT) No Michelle Alegria, PharmD documented as of this encounter Procedures Procedure Name Priority Date/Time Associated Diagnosis Comments POCT BAKARI-14 URINE DRUG SCREEN Routine 06/27/2024 11:20 AM EDT Pain documented in this encounter Results * POCT BAKARI-14 Urine Drug Screen (06/27/2024 11:20 AM EDT) TCA, Urine Positive Urine Urine specimen obtained by clean catch procedure / Unknown 06/27/2024 11:20 AM EDT Narrative 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 RN - 06/27/2024 11:20 AM EDT Lot# [id number] Exp: 11-06-25 Toiyn [place]INT OF CARE TEST ENTER/EDIT ORDERABLES Final Result documented in this encounter Visit Diagnoses Diagnosis Pain Generalized pain documented in this encounter Additional Health Concerns Assessment Noted Time PHQ-9 Depression Total Score: 13 024 4:37 PM EDT documented as of this encounter Care Teams Air Brake Worker Relationship Specialty Start Date End Date Toyin Pollard FNP 230 [place] [address] PCP - General Family Medicine 01/11/21 Satish Brennan MD [address] [place] [address] Endocrinology 02/22/24 Jacob Morrow 5 [place] [address] Pulmonary Disease 02/22/24 Nicolasa Escobar MD [address] [place] [address] Neurology 02/22/24 Shen Davis MD [address] [place] [address] Nephrology 02/22/24 Ellyn Connolly PododermatologistTrimming Cutter 08/17/23 [facility] 01/11/24 documented as of this encounter
--- OUTSIDE RECORDS SUMMARY | 2024-06-28 16:42 | XMS_ITS | Encounter Summary ---
Author Organization [employer] Address 75 [facility] 7t [place] [address] Care Team Providers Care Ion Exchange Operator Name Role Phone Toyin Pollard Primary Care Provider Satish Brennan MD Unavailable Jacob Morrow Unavailable [phone] Nicolasa Escobar MD Unavailable [phone] Shen Davis MD Unavailable [phone] Reason for Visit * Reason Onset Date Comments Ambulance transportation 06/26/2024 Encounter Details Date Type Department Care Team ([facility] st Contact Info) Description 06/26/2024 Telephone [facility] MED & PEDS 505 [place], [place] [phone] Toyin Pollard FNP 505 [place], [place] [phone] Ambulance transportation Social History Tobacco Use Types Packs/Day Years [...] encounter Miscellaneous Notes * Telephone Encounter - Patricia Elizabeth RN - 06/26/2024 12:25 PM EDT TC to [facility]. Stretcher transport booked for cotton picking machine operator at 9:30 AM from pt address to [facility]. TC to pt. Informed of ambulance ride set up and cotton picking machine operator time. Pt verbalized understanding and agreement with plan. * Telephone Encounter - Hemalatha Minor - 06/26/2024 12:13 PM EDT Tc from pt calling to inform needs an Ambulance ride scheduled tomorrow appt . transportation documented in this encounter Plan of Treatment Upcoming Encounters Date Type Department Care Team (Late st Contact Info) Description 08/05/2024 10:30 AM EDT Office Visit [facility] & PEDS [address] [place] [address] Toyin Pollard FNP 505 [place] [address] 09/23/2024 11:00 AM EDT Telemedicine [facility] MED & PEDS 505 [place], [place] [phone] 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, RN [address] [place], [place] documented as of this encounter Goals [...] documented as of this encounter Care Teams Ion Exchange Operator Relationship Specialty Start Date End Date Toyin Pollard FNP [address] [place] [address] PCP - General Family Medicine 01/11/21 Satish Brennan MD [address] [facility] [address] [facility] 104 [place] [address] Endocrinology 02/22/24 Jacob Morrow 5 [place] [address] Pulmonary Disease 02/22/24 Nicolasa Escobar MD [address] [place] [address] Dr Kameron 140 [place] [address] Neurology 02/22/24 Shen Davis MD [address] [place] [address] Nephrology 02/22/24 Ellyn Connolly Port WardenStore Specialist 08/17/23 [facility] 01/11/24 documented as of this encounter
--- OUTSIDE RECORDS SUMMARY | 2024-06-28 16:42 | XMS_ITS | Encounter Summary ---
Author Organization [employer] Address [address] [place] [address] 7t [place] [address] Care Team Providers Care Carpenter Maintenance Name Role Phone Toyin Pollard Primary Care Provider Satish Brennan MD Unavailable [phone] Jacob Morrow Unavailable [phone] Nicolasa Escobar MD Unavailable [phone] Shen Davis MD Unavailable [phone] Encounter Details Date Type Department Care Team (Late st Contact Info) Description 03/15/2022 Orders Only [facility]S [address] [place] [address] Ellyn Chery LPN Social History Tobacco Use [...] EDT Office Visit [facility]S [address] [place] [address] Toyin Pollard FNP 505 [place] [address] 09/23/2024 11:00 AM EDT Telemedicine [facility] MED & PEDS [address] [place] [address] 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, RN [address] [place] [address] documented as of this encounter Visit Diagnoses Not on filedocumented in this encounter Care Teams Carpenter Maintenance Relationship Specialty Start Date End Date Toyin Pollard FNP 230 [place] [address] PCP - General Family Medicine 01/11/21 Satish Brennan MD [address] [place] [address] Endocrinology 02/22/24 Jacob Morrow 5 [place] [address] Pulmonary Disease 02/22/24 Nicolasa Escobar MD [address] [place] [address] Dr [facility] 140 [place] [address] Neurology 02/22/24 Shen Davis MD [address] [place] [address] Nephrology 02/22/24 Ellyn Connolly Limousine Rental ClerkSpeeder Hand 08/17/23 [facility] 01/11/24 01/21/24 [facility] 01/11/24 documented as of this encounter
== END 2024-07-01 11:06 | disposition home or self-care (01) ==
LOC: HO.ENCR 16:38
PROVIDERS: PCP Registered Nurse; Visit Provider Nurse Practitioner Adult Health
DX: E11.9 Type 2 diabetes mellitus without complications (principal); E03.9 Hypothyroidism, unspecified
CPT/HCPCS: 99213

== ENCOUNTER → 2024-06-28 16:38 | Outpatient (BNVA) | payer MEDICAID, SELFPAY | PROVIDERS: PCP Registered Nurse; Visit Provider Nurse Practitioner Adult Health ==

== ENCOUNTER 2024-07-02 10:22 | Outpatient (REF) | payer MEDICAID, SELFPAY ==
--- OUTSIDE RECORDS SUMMARY | 2024-07-02 12:27 | XMS_ITS | Encounter Summary ---
Author Organization [employer] Address 75 [facility] 7[address] [place] [address] Care Team Providers Care Cutter And Presser Name Role Phone Toyin Pollard Primary Care Provider [phone] Satish Brennan MD Unavailable Jacob Morrow Unavailable [phone] Nicolasa Escobar MD Unavailable Shen Davis MD Unavailable [phone] Reason for Visit * Reason Onset Date Comments PT1 10/04/2022 Encounter Details Date Type Department Care Team (Late st Contact Info) Description 10/04/2022 Telephone [facility] MEDICINE 230 [place], [place] [phone] Toyin Pollard FNP 505 [place], [place] [phone] PT1 Social History Tobacco Use Types Packs/Day [...] encounter Miscellaneous Notes * Telephone Encounter - Nabila Conti - 10/07/2022 10:48 AM EDT PT 1 Initiated member will receive a letter from with instructions. * Telephone Encounter - Hemalatha Minor - 10/04/2022 12:12 PM EDT GLENDY Hanna from [facility] requesting a pt1 to Location:[address] [place] [address] [address] [place] [address] Specialty: MRI Date&Time: 10/11/22 @ 9am Solderer Assembler: n/a Pt does uses a scooter documented in this encounter Plan of Treatment Upcoming Encounters Date Type Department Care Team (Late st Contact Info) Description 08/05/2024 10:30 AM EDT Office Visit [facility] MED & PEDS 505 [place] [address] Toyin Pollard FNP 505 [place] [address] 09/23/2024 11:00 AM EDT Telemedicine [facility] MED & PEDS 505 [place] [address] 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, RN 505 [place] [address] documented as of this encounter Visit Diagnoses Not on filedocumented in this encounter Additional Health Concerns Assessment Noted Time PHQ-9 Depression Total Score: 0 09/29/19 23 2:03 PM EDT documented as of this encounter Care Teams Cutter And Presser Relationship Specialty Start Date End Date Toyin Pollard FNP [address] [place] [address] PCP - General Family Medicine 01/11/21 Satihs Brennan MD [address] [place] [address] Endocrinology 02/22/24 Jacob Morrow [address] [place] [address] Pulmonary Disease 02/22/24 Nicolasa Escobar MD [address] [facility] [address] [address] Neurology 02/22/24 Shen Davis MD [address] [facility] [address] [place] [address] Nephrology 02/22/24 Ellyn Connolly Brass PolisherLogistics Officer 08/17/23 [facility] 01/11/24 01/21/24 [facility] 01/11/24 documented as of this encounter
--- OUTSIDE RECORDS SUMMARY | 2024-07-02 12:27 | XMS_ITS | Encounter Summary ---
Author Organization [employer] Address [address] [facility] [address] [place] [address] Care Team Providers Care District Medical Examiner Name Role Phone Toyin Pollard Primary Care Provider Satish Brennan MD Unavailable Jacob Morrow Unavailable [phone] Nicolasa Escobar MD Unavailable Shen Davis MD Unavailable [phone] Encounter Details Date Type Department Care Team (Late st Contact Info) Description 04/22/2024 Telephone [facility] [address] [place], [place] [phone] Toyin Pollard FNP [address] [place], [place] [phone] Social History Tobacco Use Types Packs/Day Years [...] the past 12 months, has t he [employer] gas, oil or water company threatened to [...] 08/05/2024 10:30 AM EDT Office Visit [facility] [address] [place] [address] Toyin Pollard FNP [address] [place] [address] 09/23/2024 11:00 AM EDT Telemedicine [facility] [address] [place] [address] 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, [place] [address] [place] [address] documented as of this encounter Goals Goal [...] documented as of this encounter Care Teams District Medical Examiner Relationship Specialty Start Date End Date Toyin Pollard FNP [address] [place] [address] PCP - General Family Medicine 01/11/21 Satish Brennan MD [address] [place] [address] Endocrinology 02/22/24 Jacob Morrow [address] [place] [address] Pulmonary Disease 02/22/24 Nicolasa Escobar MD [address] [facility] [address] [place] [address] Neurology 02/22/24 Shen Davis MD [address] [place] [address] Nephrology 02/22/24 Ellyn Connolly [employer] Flat[employer] Driver[employer] Composer 08/17/23 [facility] 01/11/24 documented as of this encounter
--- OUTSIDE RECORDS SUMMARY | 2024-07-02 12:27 | XMS_ITS | Encounter Summary ---
Author Organization [employer] Address [address] [facility] [address] [place] [address] Care Team Providers Care Chief Resource Officer Name Role Phone Toyin Pollard Primary Care Provider Satish Brennan MD Unavailable Jacob Morrow Unavailable [phone] Nicolasa Escobar MD Unavailable Shen Davis MD Unavailable [phone] Reason for Visit * Reason Onset Date Comments Hospital Follow-up 11/06/2023 Encounter Details Date Type Department Care Team (Late st Contact Info) Description 11/06/2023 Telephone [facility] [address] [place] [address] Toyin Polladr FNP [address] [place], [place] [phone] Hospital Follow-up Social History Tobacco Use Types [...] from pt requesting a F appt. [place] [facility] [place]: [place]25 Discharge date: 11/03 Diagnosed: Ankle injury documented in this encounter Plan of Treatment Upcoming Encounters Date Type Department Care Team (Late st Contact Info) Description 08/05/2024 10:30 AM EDT Office Visit [facility] [address] [place] [address] Toyin Pollard FNP [address] [place] [address] 09/23/2024 11:00 AM EDT Telemedicine [facility] [address] [place] [address] 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, RN [address] [place] [address] documented as of this encounter Goals Goal [...] documented as of this encounter Care Teams Chief Resource Officer Relationship Specialty Start Date End Date Toyin Pollard FNP [address] [place] [address] PCP - General Family Medicine 01/11/21 Satish Brennan MD [address] [facility] [address] [place] [address] Endocrinology 02/22/24 Jacob Morrow [address] [place] [address] Pulmonary Disease 02/22/24 Nicolasa Escobar MD [address] [place] [address] [address] [place] [address] Neurology 02/22/24 Shen Davis MD [address] [place] [address] Nephrology 02/22/24 Ellyn Connolly Chief RadiologyMold Stamper 08/17/23 [facility] 01/11/24 01/21/24 [facility] 01/11/24 documented as of this encounter
--- OUTSIDE RECORDS SUMMARY | 2024-07-02 12:27 | XMS_ITS | Clinical Summary ---
Author Organization [employer] Address [address] [place] [address] Care Team Providers Care Tubing Mill Setter Name Role Phone JuddToyin barry LOUIE Primary Care Provider Satish Brennan MD Unavailable Jacob Morrow Unavailable [phone] Nicolasa Escobar MD Unavailable [phone] Shen Davis MD Unavailable [phone] Allergies Active Allergy Reactions Criticality Noted Date Comments Haloperidol Unknown High 03/22/2022 Other reaction(s): Irritable Latex Rash Low 01/14/2021 Metformin Diarrhea,Hives High 01/14/2021 Morphine Itching,Rash Low 02/07/2019 Tetracycline Hives High 03/22/2022 Medications TRUEplus Lancets 33G miscIndications: Type 2 diabetes mellitus with complication ([facility]) 1 Lancet in the morning, at [...] Continuous Glucose Sensor (FreeStyle Todd 2 Sensor) [facility] USE DIRECTED CHANGE EVERY 14 DAYS Active [...] BEDTIME 90 tablet 025 Active nystatin (Nyamyc) 090656 UNIT/GM powderIndication s:Tinea APPLY TOPICALLY TO AFFECTED [...] eorder (will not trigger notification to Pharmacy)) acetaminophen (Tylenol Extra Strength) 500 MG tablet Take 1 tablet (500 mg) by mouth every 6 (six) hours if needed for mild pain. 30 tablet 024 2024 cetirizine (ZyrTEC) 10 MG tabletIndication s:Seasonal allergies TAKE 1 TABLET BY MOUTH EVERY DAY NEEDED FOR ALLERGIES 90 tablet 3 024 2024 Discontinued nystatin (Nyamyc) 310174 UNIT/GM powderIndication s:Tinea APPLY TOPICALLY TO AFFECTED AREA(S) TWICE DAILY 60 g 2 024 2024 Discontinued scopolamine (Transderm-Scop) 1 MG/3DAYS patch [...] hypothyroidism 11/15/2022 Overview (11/15/2022): ?? Followed by [facility] Endo Lab Results Component Value Date TSH [...] maintenance 11/10/2022 Overview (08/05/2023): Optometry: followed by [facility], last appt Feb 2021 Mammogram: BIRADS 2 02/21/2019, due. Ordered 11/15/22 Colonoscopy: followed by GI, referral for screening colonoscopy placed 11/15/22. Cologuard negative 03/08/23 Pap: overdue, pt does not recall last pap. Will schedule with [facility] CNM in handicap accessible room Last PE: 07/17/23 Assessment & Plan (07/19/2023 10:15 AM EDT): Labs ordered today, showed hyperkalemia, but with hemolysis Will repeat at next appointment with PCP ADHD 09/28/2022 History of posttraumatic stress disorder (PTSD) 09/28/2022 Migraine 09/28/2022 Assessment & Plan (02/25/2024 6:26 PM EST): - History of migraines, previously using sumatripan. Discontinued with history of UT - Referral to Neuro for further eval and tx 11/15/22 -Nurtec 75mg tablet approval - PA # [id number], exp 02/12/25 - pt reports med effective. Denies med SE Assessment & Plan (08/05/2023 5:08 PM EDT): - History of migraines, previously using sumatripan. Discontinued with history of UT - Referral to Neuro for further eval and tx 11/15/22 -Nurtec 75mg tablet approved May 2023. #[id number] will on 12/17/23 - pt reports med effective. Denies med SE Assessment & Plan (11/15/2022 5:45 PM EDT): - History of migraines, previously using sumatripan. Discontinued with history of UT - PA for Nurtec denied through PCP [...] -Patient will follow outpt Vasc Surg at [facility] - Dr. Canales -Incidental measuring on CT [...] patient about the risks and harms of alf opioid use - Pt goal is to [...] patient about the risks and harms of alf opioid use - Pt goal is to lose enough weight so that she is eligible for gall bladder surgery, was referred to Weight management clinic 10/08/21 Chronic constipation 05/05/2021 COPD (chronic obstructive pulmonary disease) Assessment & Plan (02/25/2024 6:20 PM EST): - Patient continues on supplemental oxygen: 6L/min @ rest or when sitting, and 8L/min when up and moving around. - Following with [facility] Pulmonology - Dr. Morrow - Marycarmen SOB. Denies any fevers, chills, difficulty breathing, cough, or mucous production. Reports that she has enough supplemental O2 at home -Continue with Breztri (gdznexhyzf-sqogfbiw-etbuhtoqcy) BID -Albuterol PRN -DME request for neb machine placed 11/15/22 Assessment & Plan (11/15/2022 5:33 PM EDT): - Patient continues on supplemental oxygen: 6L/min @ rest or when sitting, and 8L/min when up and moving around. - Following with [facility] Pulmonology - Dr. Morrow - Marycarmen SOB. Denies any fevers, chills, difficulty breathing, cough, or mucous production. Reports that she has enough supplemental O2 at home -Continue with Breztri (lydxwpgyxy-ggynawyi-hgiodsbqgi) BID -Albuterol PRN -DME request for neb machine placed 11/15/22 Coronary arteriosclerosis 05/05/2021 Depressive disorder 05/05/2021 Edema of lower extremity 05/05/2021 GERD (gastroesophageal reflux disease) Moderate persistent asthma without complication 05/05/2021 Tobacco [...] Plan (02/25/2024 6:25 PM EST): Following with [facility] Endo Continue Mounmatthewro & Jonatan, with goal of weight loss leading to bariatric surgery Lab Results Component Value Date HGBA1C 6.4 (A) 08/02/2023 HGBA1C 6.7 (A) 07/17/2023 HGBA1C 10.4 (A) 03/01/2023 HGBA1C TNP 07/20/2022 HGBA1C 7.8 (H) 01/11/2021 HGBA1C 11.9 (H) 11/11/2019 HGBA1C 11.9 (H) 11/11/2019 A1c: congratulated in improvement with A1c levels Eye exam: due, schedule with [facility] Eye Care Foot exam: referral to podiatry 11/15/22 Dental: encouraged PNA: UTD ACEi/ARB: yes Statin: yes ASA: yes Lifestyle: Encouraged regular movement as able and aerobic exercise for improved glycemic control Encouraged daily foot checks Encouraged lean protein snacks and to avoid foods high in sugar and simple carbohydrates Medications: Per [facility] Endo Toujeo insulin: 64 units at bedtime Humalog 14 units TID AC Mounjaro 7.5mg subcutaneous weekly Treatment Goals: A1c goal: <7% FBG goal: <130 2 hour post prandial goal: <180 Assessment & Plan (08/05/2023 5:09 PM EDT): Following with [facility] Continue Mounjaro & Tochelseyo, with goal of weight loss leading to bariatric surgery Lab Results Component Value Date HGBA1C 6.4 (A) 08/02/2023 HGBA1C 6.7 (A) 07/17/2023 HGBA1C 10.4 (A) 03/01/2023 HGBA1C 7.8 (H) 01/11/2021 HGBA1C 11.9 (H) 11/11/2019 HGBA1C 11.9 (H) 11/11/2019 A1c: congratulated in improvement with A1c levels Eye exam: due, schedule with [facility] Eye Care Foot exam: referral to podiatry 11/15/22 Dental: encouraged PNA: UTD ACEi/ARB: yes Statin: yes ASA: yes Lifestyle: Encouraged regular movement as able and aerobic exercise for improved glycemic control Encouraged daily foot checks Encouraged lean protein snacks and to avoid foods high in sugar and simple carbohydrates Medications: Per [facility] Treatment Goals: A1c goal: <7% FBG goal: <130 2 hour post prandial goal: <180 Assessment & Plan (07/19/2023 10:16 AM EDT): Following with [facility] Jigna Duranunrigo with goal of weight loss leading to bariatric surgery Lab Results Component Value Date HGBA1C 10.4 (A) 03/01/2023 A1c: above goal Eye exam: due, schedule with [facility] Eye Care Foot exam: referral to podiatry 11/15/22 Dental: encouraged PNA: UTD ACEi/ARB: yes Statin: yes ASA: yes Lifestyle: Encouraged regular movement as able and aerobic exercise for improved glycemic control Encouraged daily foot checks Encouraged lean protein snacks and to avoid foods high in sugar and simple carbohydrates Medications: Per [facility] Treatment Goals: A1c goal: <7% FBG goal: <130 2 hour post prandial goal: <180 Assessment & Plan (03/02/2023 4:56 PM EST): Following with [facility] Endo Lab Results Component Value Date HGBA1C 10.4 (A) 03/01/2023 A1c: above goal Eye exam: due, schedule with [facility] Eye Care Foot exam: referral to podiatry 11/15/22 Dental: encouraged PNA: UTD ACEi/ARB: yes Statin: yes ASA: yes Lifestyle: Encouraged regular movement as able and aerobic exercise for improved glycemic control Encouraged daily foot checks Encouraged lean protein snacks and to avoid foods high in sugar and simple carbohydrates Medications: ? ? Per [facility] Endo Treatment Goals: A1c goal: <7% FBG goal: <130 2 hour post prandial goal: <180 Assessment & Plan (11/15/2022 5:38 PM EDT): Following with [facility] Endo Lab Results Component Value Date HGBA1C 10.1 (A) 09/28/2022 A1c: above goal Eye exam: due, schedule with [facility] Eye [facility] Foot exam: referral to podiatry 11/15/22 Dental: encouraged PNA: UTD ACEi/ARB: yes Statin: yes ASA: does not appear to be taking, although hx of UT. Will refer to [facility] for further eval. Lifestyle: Encouraged regular movement as able and aerobic exercise for improved glycemic control Encouraged daily foot checks Encouraged lean protein snacks and to avoid foods high in sugar and simple carbohydrates Medications: ? ? Per [facility] Endo Treatment Goals: A1c goal: <7% FBG [...] Description 06/27/2024 10:30 AM EDT Clinical Support [facility] [address] [place] [address] 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, MINA Pain 06/27/2024 Refill [facility] [address] [place] [address] 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, MINA Pain; Calculus of gallbladder without cholecystitis without obstruction; Long-term current use of opiate analgesic; Dizziness, nonspecific 06/27/2024 Travel 06/26/2024 Telephone [facility] [address] [place] [address] Toyin Pollard FNP Ambulance transportation 06/18/2024 Refill [facility] [address] [place] [address] Toyin Pollard FNP Seasonal allergies 06/17/2024 Refill [facility] [address] [place] [address] Toyin Pollard FNP 06/06/2024 Refill [facility] [address] [place] [address] Toyin Pollard FNP Tinea 05/31/2024 Population Health Risk Score [facility] [address] [phone] Provider, Population Health Generic 05/29/2024 Refill [facility] [address] [place] [address] Toyin Pollard FNP Pain; Calculus of gallbladder without cholecystitis without obstruction; Long-term current use of opiate analgesic 05/27/2024 Refill [facility] [address] [place] [address] Toyin Pollard FNP 05/23/2024 Refill [facility] [address] [place] [address] Toyin Pollard FNP 05/22/2024 Telephone [facility] [address] [place] [address] Toyin Pollard FNP Appointment Confirmation 05/22/2024 Telephone [facility] [address] [place] [phone] Toyin Pollard FNP Durable Medical Equipment 05/22/2024 Refill [facility] [address] [place] [address] Toyin Pollard FNP 05/21/2024 Telephone [facility] [address] [place] [address] 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, RN 05/21/2024 Telephone [facility] [address] [place] [address] 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, RN 05/20/2024 Telephone [facility] [address] [place] [address] Toyin Pollard FNP 05/16/2024 Telephone [facility] [address] [place] [address] Toyin Pollard FNP Durable Medical Equipment 05/15/2024 Patient Outreach [facility] [address] [place] [phone] Toyin Pollard FNP Care Coordination ([facility] outreach for SDOH PT-1 and food needs-referral completed /) 05/15/2024 Telephone [facility] [address] [place] [address] Toyin Pollard FNP transportation needed 05/15/2024 Telephone [facility] [address] [place] [address] Toyin Pollard FNP Nurse Triage 05/15/2024 Refill [facility] [address] [place] [phone] Phalen, Toyin, PROGRAMMING ENGINEER Dizziness, nonspecific 04/30/2024 Refill [facility] [address] [place] [address] Toyin Pollard, PROGRAMMING ENGINEER Smokes cigarettes 04/22/2024 Telephone [facility] [address] [place] [address] Toyin Pollard, PROGRAMMING ENGINEER 04/19/2024 Refill [facility] [address] [place] [address] Toyin Pollard, PROGRAMMING ENGINEER Dizziness, nonspecific 04/15/2024 Travel 04/15/2024 Telephone [facility] [address] [place] [address] 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, RN admitting representative 04/15/2024 Telephone [facility] [address] [place] [address] Toyin Pollard, PROGRAMMING ENGINEER 04/14/2024 Refill [facility] [address] [place] [address] Toyin Pollard, PROGRAMMING ENGINEER 04/12/2024 Refill [facility] [address] [place] [address] Atul Toyin, PROGRAMMING ENGINEER Long-term current use of opiate analgesic (Primary Dx); Pain; Calculus of gallbladder without cholecystitis without obstruction 04/04/2024 Orders Only [facility] External Provider, [facility] from Last 3 Months Immunizations Name [...] Description 08/05/2024 10:30 AM EDT Office Visit [facility] [address] [place] [address] Toyin Pollard FNP [address] [place] [address] 09/23/2024 11:00 AM EDT Telemedicine [facility] [address] [place], [place] [phone] 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, RN [address] [place], [place] [phone] Health Maintenance Due Date Last Done Comments [...] Result Component 6.4(08/02/2023 4:30 PM EDT) No Piers-RamosMichelle yuen, PharmD Procedures Procedure Name Priority Date/Time Associated [...] RN - 06/27/2024 11:20 AM EDT Lot# [id number] Exp: 11-06-25 us Toyin Pollard PROGRAMMING ENGINEER POINT OF CARE TEST ENTER/EDIT ORDERABLES Final Result * XR Pelvis 1-2 Views (05/02/2024 12:07 AM EST) Anatomical Region Laterality Modality Body, Pelvis Radiographic Padmini ging 05/02/2024 12:0 7 AM EST Narrative 05/02/2024 12:10 AM EST ? [facility] ?[address] ?[place] [address] ?XRay Report ? Signed ? Patient: Elle Lopez ?MR#: [id number] ?? 57 ? : 1970 ?Acct:[id number] ? Age/Sex: 54 / F ?ADM Date: 05/01/24 ? Loc: HO.ED ? Attending Dr: ? Ordering Physician: Layne Chambers ?? Date of Service: 05/01/24 ?? Procedure(s): XR pelvis 1-2V ?? Accession Number(s): [id number] ? cc: Layne Chambers; [facility] ? CLINICAL HISTORY: pain, fx? Pelvis, 1 view ? COMPARISON: Portions of CT/SR - CT ABDOMEN PELVIS W IV CON - 6// 11:37 ?? EDT ? FINDINGS: ?? No acute fracture. No dislocation. ?? Unremarkable soft tissues. ? IMPRESSION: ?? No acute findings. ? This document has been electronically signed by: Eren Tolbert MD on ?? 05/02/2024 00:07:20 ? Dictated By: ?Eren Tolbert MD ? Signed By: ?<Electronically signed by Eren Tolbert MD in OV> ?05/02/247 ? DD/ ? TD/TT: 05/02/246 ? [employer]ating Range Tender: ? Procedure Note Anoop Babcock - 05/02/[address] [address] XRay Report Signed Patient: Elle LopezMR#: [id number] 57 : 1970Acct:[id number] Age/Sex: 54 / FADM Date: 05/01/24 Loc: HO.ED Attending Dr: Ordering Physician: Layne Chambers Date of Service: 05/01/24 Procedure(s): XR pelvis 1-2V Accession Number(s): [id number] cc: Layne Chambers; [facility] CLINICAL HISTORY: pain, fx? Pelvis, 1 view [...] MD in OV> 05/02/247 DD/ TD/TT: 05/02/246 [employer] Impregnating Range Tender: [facility] External Provider IMG XR PROCEDURES Final Result * XR Foot 3+ Views Right (04/04/2024 7:08 PM EST) Anatomical Region Laterality Modality Lower Extremities, Foot Right Radiogra phic Imaging 04/04/2024 7:08 PM EST Narrative 04/04/2024 7:10 PM EST ? [facility] ?[address] ?[place] [address] ?XRay Report ? Signed ? Patient: Elle Lopez ?MR#: [id number] ?? 57 ? : 1970 ?Acct:[id number] ? Age/Sex: 54 / F ?ADM Date: 04/04/24 ? Loc: HO.ED ? Attending Dr: ? Ordering Physician: Silvia Jose PA ?? Date of Service: 04/04/24 ?? Procedure(s): XR foot RT min 3V ?? Accession Number(s): [id number] ? cc: [facility]; Silvia Jose ? CLINICAL HISTORY: pain ? [...] radiopaque retained ?? foreign body in the dowcu-hj-irui. ? IMPRESSION: ?? 1. Fragments about imaged [...] ? DD/ 07 ? TD/TT: 04/04/241907 ? [employer] Imp[employer]ating Range Tender: ? Procedure Note Sadiq, Image - 04/04/[address] [address] XRay Report Signed Patient: Elle LopezMR#: [id number] 57 : 1970Acct:[id number] Age/Sex: 54 / FADM Date: 04/04/24 Loc: HO.ED Attending Dr: Ordering Physician: Silvia Jose Date of Service: 04/04/24 Procedure(s): XR foot RT min 3V Accession Number(s): [id number] cc: [facility]; Silvia Jose CLINICAL HISTORY: pain 3 view [...] No radiopaque retained foreign body in the onqrg-zr-ltfb. IMPRESSION: 1. Fragments about imaged ankle are [...] in OV> 04/04/241908 DD/ 07 TD/TT: 04/04/241907 [employer] Imp[employer]ating Range Tender: [facility] External Provider IMG XR PROCEDURES Final Result * XR Ankle 3+ Views Right (04/04/2024 7:05 PM EST) Anatomical Region Laterality Modality Lower Extremities, Ankle Right Radiogr aphic Imaging 04/04/2024 7:05 PM EST Narrative 04/04/2024 7:06 PM EST ? [facility] ?[address] ?[place] [address] ?XRay Report ? Signed ? Patient: Elle Lopez ?MR#: [id number] ?? 57 ? : 1970 ?Acct:[id number] ? Age/Sex: 54 / F ?ADM Date: 04/04/24 ? Loc: HO.ED ? Attending Dr: ? Ordering Physician: Silvia Jose ?? Date of Service: 04/04/24 ?? Procedure(s): XR ankle RT min 3V ?? Accession Number(s): [id number] ? cc: [facility]; Silvia Jose ? CLINICAL HISTORY: pain ? [...] by Keny Gonzalez MD in OV> ? 04/04/246 ? DD/ 04 ? TD/TT: 04/04/241904 ? [employer] Impregnating Range Tender: ? Procedure Note Donkristalnathalietremaineter, Image - 04/04/[address] [address] XRay Report Signed Patient: Elle LopezMR#: [id number] 57 : 1970Acct:[id number] Age/Sex: 54 / FADM Date: 04/04/24 Loc: HO.ED Attending Dr: Ordering Physician: Silvia Jose Date of Service: 04/04/24 Procedure(s): XR ankle RT min 3V Accession Number(s): [id number] cc: [facility]; Silvia Jose CLINICAL HISTORY: pain 3 view [...] in OV> 04/04/241905 DD/ 04 TD/TT: 04/04/241904 [employer] Impregnating Range Tender: [facility] External Provider IMG XR PROCEDURES Final Result * (ABNORMAL) POCT HGB A1C (08/02/2023 4:30 PM EDT) Hemoglobin A1C 6.4(A) 4.0 - 6.0 % QC Media Lot # [id number] Lot# Expiration Date ,[id number] Blood 08/02/2023 4:30 PM EDT Result [facility] Toyin Pollard PROGRAMMING ENGINEER POINT OF CARE TEST ENTER/EDIT ORDERABLES Final Result * Hepatitis C Antibody with Reflex to HCV, RNA, Quantitative, Real-Time PCR (07/19/2023 12:30 PM EDT) Pathologist [facility] Hepatitis C Antibody Nonreactive Nonreactive [facility] Comment:Antibodies to HCV no t detected; does not exclude early acuteHCV infection. Blood Venous blood specimen / Unknown 07/19/2023 12:30 PM EDT 07/19/2023 1:00 PM EDT Result [facility] Agustina Toribio MD LAB BLOOD ORDERABLES Final Res ult [facility] [address] [place] [phone] * HIV-1/2 Antigen and Antibodies, Fourth Generation, with Reflexes (07/19/2023 12:30 PM EDT) HIV AB/AG Nonreactive Nonreactive [facility] Comment:HIV-1 p24 Ag and/or HIV-1/HIV-2 Ab not detected.A test result that is nonreactive does not exclude thepossibility of exposure to or infection with HIV-1 and/orHIV-2. Nonreactive results in this assay for individualswith prior exposure to HIV-1 and/or HIV-2 may be due toantigen and antibody levels that are below the limit ofdetection of this assay.The [employer] HIV Ag/Ab Combo assay result andsupplemental assay results should be interpreted inconjunction with the patient's clinical presentation,history and other laboratory results. If the results areinconsistent with clinical evidence, additional testing issuggested to confirm the result. Blood Venous blood specimen / Unknown 07/19/2023 12:30 PM EDT 07/19/2023 1:00 PM EDT Agustina Toribio MD LAB BLOOD ORDERABLES Final Res ult [facility] [address] [place] [phone] * (ABNORMAL) Lipid Panel, Standard (07/17/2023 4:09 PM EDT) Triglycerides 171(H) <150 mg/dL [facility] Comment:Desirable Triglyceri de: less than 150 mg/dLBorderline High Triglyceride 150-199 mg/dLHigh Triglyceride: 200-499 mg/dLVery High Triglyceride: greater than or equal to 5OO mg/dL Cholesterol 176 <200 mg/dL [facility] Comment:Desirable Cholestero l: less than 200 mg/dLBorderline High Cholesterol: 200-239 mg/dLHigh Cholesterol: greater than 239 mg/dL LDL Cholesterol Calculated 77 <100 mg/dL [facility] Comment:Desirable LDL: less than 100 mg/dLNear Optimal/Above Optimal LDL: 110- 129 mg/dLBorderline High LDL: 130-159 mg/dLHigh LDL: 160-189 mg/dLVery High LDL: greater than or equal to 190 mg/dL HDL Cholesterol 65 >40 mg/dL [facility] Comment:Desirable HDL: great er than 40 mg/dL Note: This HDL assay may give artificially low results in patients with liver disease. Blood Venous blood specimen / Unknown 07/17/2023 4:09 PM EDT 07/17/2023 5:46 PM EDT us Agustina Toribio MD LAB BLOOD ORDERABLES Final Res ult [facility] [address] [place] [address] [phone] * Cologuard?? colon cancer screening (03/08/2023 3:30 PM EST) Cologuard Result Negative Negative 03/16/20 9:24 AM EST [employer] [facility] (CLIA #:[id number]) Comment: NEGATIVE TEST RESULT. A negative Cologuard [...] screened with both Cologuard and colonoscopy. (Kevin Juarez. et al, N Engl J Med 2014;370(14):1286- 1297) The normal value (reference range) for this assay is negative. COLOGUARD RE-SCREENING RECOMMENDATION: Periodic colorectal cancer screening is an important part of preventive healthcare for asymptomatic individuals at average risk for colorectal cancer. ??Following a negative Cologuard result, the [place] [employer] and U.S. Multi-Society Task Force screening guidelines recommend a Cologuard re-screening interval of 3 years. References: [place] [employer] Guideline for Colorectal Cancer Screening: https://www.cancer.org/cancer/ztliu-faosup-olvndc/azgxseibl-tmaoatled-iryugum/ac s-rec ommendations.html.; Miguel ARTIS, Maria Elena CHEW, Lester MaherK, Colorectal Cancer Screening: Recommendations for Physicians and Patients from the U.S. Multi-Society Task Force on Colorectal Cancer Screening , Am J Gastroenterology 2017; 112:2472-1713. TEST DESCRIPTION: Composite algorithmic analysis of stool [...] Josue et al, N Engl J Med 2014;370(14):1230-8126.) Cologuard may produce a false negative or false positive result (no colorectal cancer or precancerous polyp present at colonoscopy follow up). A negative Cologuard test result does not guarantee the absence of CRC or advanced adenoma (pre-cancer). The current Cologuard screening interval is every 3 years. ([place] [employer] and U.S. Multi-Society Task Force). Cologuard performance data in a 10,000 patient pivotal study using colonoscopy as the reference method can be accessed at the following location: www.[employer]/results. Additional description of the Cologuard test process, warnings and precautions can be found at www.[employer].com. Stool specimen (specimen) 03/08/2023 3:30 PM EST 03/09/2023 7:12 PM EST Toyin Pollard [facility]LE[facility] DI[facility]ST[facility] DRE FRY Final Result [employer] [facility] (CLIA #:[id number]) [place] [address], * Mammography Report 1 (05/27/2020 2:30 PM EST) Anatomical Region Laterality Modality Breast Bilateral Mammography 05/27/2020 2:30 PM EST Narrative 05/27/2020 5:07 PM EST Refer to the Notes tab for result details Legacy Procedure: Mammography Report 1 Procedure Note Provider, Tianna, - 06/11/2022 Refer to the Notes tab for result details Legacy Procedure: Mammography Report 1 us Historical Provider IMG BI PROCEDURES Final R [...] MD LAB URINE ORDERABLES Final Resul t [facility] [address] * HPV mRNA E6/E7 (02/20/2019 8:58 AM EST) HPV mRNA E6/E7 Not Detected NOT DETECTED [facility] Comment: This test was performed using the APTIMA(R) HPV Assay ([employer] This assay detects E6/E7 viral messenger RNA (mRNA) from 14 high-risk HPV types (16,18,31,33,35,39,45,51, 52,56,58,59,66,68). For additional information please refer to: http://education.Spherix/faq/JTA926c1 (This link is being provided for informational/ educational purposes only.) The analytical performance characteristics of this assay have been determined by [facility] [place], [place]. The modifications have not been cleared or approved by the FDA. This assay has been validated pursuant to the CLIA regulations and is used for clinical purposes. Test Performed by [facility], [facility] [place], [address] [place] [address] Randy Willson M.D., Ph.D., Director of Laboratories , CLIA [id number] Please note: ??Effective 11/30/2015, HPV testing will be performed using [employer]'s APTIMA test which targets mRNA. Detecting mRNA instead of DNA, as in older methods, offers significant improvements in specificity. 02/20/2019 8:58 AM EST us Carina Fontaine CNM HISTORICAL/NON ORDERABLE LABS Final Result [facility] [address] from Last 3 Months or Most Recently Relevant to Health Maintenance Insurance [employer] [facility] STAND ADULT Care Teams Tubing Mill Setter Relationship Specialty Start Date End Date Toyin Pollard FNP [address] [place] [address] PCP - General Family Medicine 01/11/21 Satish Brennan MD [address] [place], [place] Endocrinology 02/22/24 Jacob Morrow 5 [place], [place] Pulmonary Disease 02/22/24 Nicolasa Escobar MD [address] [place] [address] Kameron Solis [place], [place] Neurology 02/22/24 Shen Davis MD [address] [place] [address] Nephrology 02/22/24 Ellyn Connolly Director Of Product DesignFeed Mill Supervisor 08/17/23 [facility] 01/11/24
--- OUTSIDE RECORDS SUMMARY | 2024-07-02 12:27 | XMS_ITS | Encounter Summary ---
Author Organization [employer] Address [address] [facility] 7t [place] [address] Care Team Providers Care Parking Manager Name Role Phone Toyin Pollard Primary Care Provider Satish Brennan MD Unavailable Jacob Morrow Unavailable [phone] Nicolasa Escobar MD Unavailable Shen Davis MD Unavailable [phone] Reason for Visit * Reason Onset Date Comments Hospital Follow-up 09/19/2022 Encounter Details Date Type Department Care Team (Late st Contact Info) Description 09/19/2022 Telephone [facility] MEDICINE 230 [place] [address] Toyin Pollard FNP 505 [place], [place] [phone] Hospital Follow-up Social History Tobacco Use Types [...] a HDF appt. Pt was admitted at [facility] on 09/08/22 and discharged on 09/16/22. Pt was diagnosed with pneumonia. Please contact dionisio at [phone] documented in this encounter Plan of Treatment Upcoming Encounters Date Type Department Care Team (Late st Contact Info) Description 08/05/2024 10:30 AM EDT [facility] 505 [place] [address] Toyin Pollard FNP 505 [place] [address] 09/23/2024 11:00 AM EDT Telemedicine [facility] 505 [place] [address] 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 RN 505 [place], [place] [phone] documented as of this encounter Visit Diagnoses Not on filedocumented in this encounter Care Teams Parking Manager Relationship Specialty Start Date End Date Toyin Pollard FNP [address] [place] [address] PCP - General Family Medicine 01/11/21 Satish Brennan MD [address] [place] [address] Endocrinology 02/22/24 Jacob Morrow 5 [place] [address] Pulmonary Disease 02/22/24 Nicolasa Escobar MD [address] [place] [address] [place] [address] Neurology 02/22/[address] [place] [address] Nephrology 02/22/24 Ellyn Connolly Fashion InternAccountant Clerk 08/17/23 [facility] 01/11/24 01/21/24 [facility] 01/11/24 documented as of this encounter
--- OUTSIDE RECORDS SUMMARY | 2024-07-02 12:27 | XMS_ITS | Encounter Summary ---
Author Organization [employer] Address [address] [place] [address] 7t [place] [address] Care Team Providers Care Dough Puncher Name Role Phone Toyin Pollard Primary Care Provider [phone] Satish Brennan MD Unavailable [phone] Jacob Morrow Unavailable [phone] Nicolasa Escobar MD Unavailable Shen Davis MD Unavailable [phone] Reason for Visit * Reason Onset Date Comments MRI order 10/03/2022 FYI 10/03/2022 Encounter Details Date Type Department Care Team (Late st Contact Info) Description 10/03/2022 Telephone [facility] MEDICINE 230 [place], [place] [phone] Toyin Pollard FNP [address] [place], [place] [phone] MRI order ; Social History Tobacco Use [...] - 10/03/2022 2:16 PM EDT Tc from [facility] 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 Advised will leave message as a FYI if any questions or concerns please contact at [phone] * Telephone Encounter - Azalea Guerrero RN - 10/03/2022 2:05 PM EDT [facility] received updated order. * Telephone Encounter - Clara Simmons - 10/03/2022 9:34 AM EDT Tc from racheal with [facility] requesting a new order for MRI abdomin. States MRI has to be MRI abdomin with and without contrast. She is also requesting a call in regards to ct scan done at [facility]. Please contact racheal at [phone] Fax number: [phone] documented in this encounter Plan of Treatment Upcoming Encounters Date Type Department Care Team (Late st Contact Info) Description 08/05/2024 10:30 AM EDT Office Visit [facility]EDS 505 [place] [address] Toyin Pollard FNP 505 [place] [address] 09/23/2024 11:00 AM EDT Telemedicine [facility] 505 [place] [address] 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, MINA [address] [place] [address] documented as of this encounter Visit Diagnoses Not on filedocumented in this encounter Additional Health Concerns Assessment Noted Time PHQ-9 Depression Total Score: 0 09/29/19 23 2:03 PM EDT documented as of this encounter Care Teams Dough Puncher Relationship Specialty Start Date End Date Toyin Pollard FNP 230 [place] [address] PCP - General Family Medicine 01/11/21 Satish Brennan MD [address] [place] [address] Endocrinology 02/22/24 Jacob Morrow 5 [place] [address] Pulmonary Disease 02/22/24 Nicolasa Escobar MD [address] [place] [address] Dr [address] [place] [address] Neurology 02/22/24 Shen Davis MD [address] [place] [address] Nephrology 02/22/24 Ellyn Connolly Rig OperatorResearch And Evaluation Analyst 08/17/23 [facility] 01/11/24 01/21/24 [facility] 01/11/24 documented as of this encounter
--- OUTSIDE RECORDS SUMMARY | 2024-07-02 12:28 | XMS_ITS | Encounter Summary ---
Author Organization [employer] Address [address] [facility] 7t [place] [address] Care Team Providers Care Machinist Apprentice Name Role Phone Toyin Pollard Primary Care Provider [phone] Satish Brennan MD Unavailable Jacob Morrow Unavailable [phone] Nicolasa Escobar MD Unavailable Shen Davis MD Unavailable [phone] Encounter Details Date Type Department Care Team (Late st Contact Info) Description 04/26/2022 Abstract [facility] MEDICINE [address] [place] [address] Toyin Pollard FNP 505 [place] [address] Social History Tobacco Use Types Packs/Day Years [...] Description 08/05/2024 10:30 AM EDT Office Visit [facility] MED & PEDS 505 [place], [place] [phone] Toyin Pollard FNP 505 [place], [place] [phone] 09/23/2024 11:00 AM EDT Telemedicine [facility] MED & PEDS 505 [place] [address] 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, RN [address] [place] [address] documented as of this encounter Visit Diagnoses Not on filedocumented in this encounter Care Teams Machinist Apprentice Relationship Specialty Start Date End Date Toyin Pollard FNP [address] [place] [address] PCP - General Family Medicine 01/11/21 Satish Brennan MD [address] [place] [address] Endocrinology 02/22/24 Jacob Morrow 5 [place] [address] Pulmonary Disease 02/22/24 Nicolasa Escobar MD [address] [place] [address] Dr [address] [place] [address] Neurology 02/22/24 Shen Davis MD [address] [place] [address] Nephrology 02/22/24 Ellyn Connolly Economic Development SpecialistSeasonal Tax Preparer 08/17/23 [facility] 01/11/24 01/21/24 [facility] 01/11/24 documented as of this encounter
--- OUTSIDE RECORDS SUMMARY | 2024-07-02 12:28 | XMS_ITS | Encounter Summary ---
Author Organization [employer] Address [address] [facility] 7t [place] [address] Care Team Providers Care Lay Health Advocate Name Role Phone Toyin Pollard LOUIE Primary Care Provider [phone] Satish Brennan MD Unavailable [phone] Jacob Morrow Unavailable [phone] Nicolasa Escobar MD Unavailable [phone] Shen Davis MD Unavailable [phone] Encounter Details Date Type Department Care Team ([facility] Contact Info) Description 05/23/2022 Orders Only [facility] MED & PEDS 505 [place] [address] Ellyn Chery LPN Social History Tobacco Use [...] Upcoming Encounters Date Type Department Care Team ([facility] Contact Info) Description 08/05/2024 10:30 AM EDT Office Visit [facility] MED & PEDS 505 [place] [address] Toyin Pollard FNP 505 [place] [address] 09/23/2024 11:00 AM EDT Telemedicine [facility] MED & PEDS 505 [place] [address] 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, RN [address] [place] [address] documented as of this encounter Visit Diagnoses Not on filedocumented in this encounter Care Teams Lay Health Advocate Relationship Specialty Start Date End Date Toyin Pollard FNP [address] [place] [address] PCP - General Family Medicine 01/11/21 Satish Brennan MD [address] [facility] [address] [facility] 104 [place] [address] Endocrinology 02/22/24 Jacob Morrow 5 [place] [address] Pulmonary Disease 02/22/24 Nicolasa Escobar MD [address] [place] [address] Neurology 02/22/24 Shen Davis MD [address] [facility] 302 [place] [address] Nephrology 02/22/24 Ellyn Connolly Fixture RelamperForging Machine Operator 08/17/23 [facility] 01/11/24 01/21/24 [facility] 01/11/24 documented as of this encounter
--- OUTSIDE RECORDS SUMMARY | 2024-07-02 12:28 | XMS_ITS | Encounter Summary ---
Author Organization [employer] Address [address] [place] [address] 7t [place] [address] Care Team Providers Care Power Plant Operator Apprentice Name Role Phone Toyin Pollard Primary Care Provider Satish Brennan MD Unavailable [phone] Jacob Morrow Unavailable Nicolasa Escobar MD Unavailable [phone] Shen Davis MD Unavailable [phone] Encounter Details Date Type Department Care Team (Late st Contact Info) Description 04/20/2022 Orders Only [facility] MEDICINE 230 [place] [address] Patrica Grimaldo LPN Social History Tobacco Use [...] Description 08/05/2024 10:30 AM EDT Office Visit [facility] MED & PEDS 505 [place] [address] Toyin Pollard FNP 505 [place] [address] 09/23/2024 11:00 AM EDT Telemedicine [facility] MED & PEDS [address] [place] [address] 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, RN [address] [place] [address] documented as of this encounter Visit Diagnoses Not on filedocumented in this encounter Care Teams Power Plant Operator Apprentice Relationship Specialty Start Date End Date Toyin Pollard FNP 230 [place] [address] PCP - General Family Medicine 01/11/21 Satish Brennan MD [address] [place] [address] Endocrinology 02/22/24 Jacob Morrow 5 [place] [address] Pulmonary Disease 02/22/24 Nicolasa Escobar MD [address] [place] [address] [address] Neurology 02/22/24 Shen Davis MD [address] [place] [address] Nephrology 02/22/24 Ellyn Connolly Verse WriterBoat Painter 08/17/23 [facility] 01/11/24 01/21/24 [facility] 01/11/24 documented as of this encounter
--- OUTSIDE RECORDS SUMMARY | 2024-07-02 12:28 | XMS_ITS | Encounter Summary ---
Author Organization [employer] Address 75 [facility] 7t [place] [address] Care Team Providers Care Head Bander And Liner Operator Name Role Phone Toyin Pollard Primary Care Provider [phone] Satish Brennan MD Unavailable Jacob Morrow Unavailable [phone] Nicolasa Escobar MD Unavailable Shen Davis MD Unavailable [phone] Reason for Visit * Reason Onset Date Comments Durable Medical Equipment 12/19/2023 Encounter Details Date Type Department Care Team (Late st Contact Info) Description 12/19/2023 Telephone [facility] MED & PEDS 505 [place], [place] [phone] Toyin Pollard FNP 505 [place], [place] [phone] Durable Medical Equipment Social History Tobacco Use [...] 10:27 AM EDT Tc from [facility] case management coordinator calling to see if DME can be which to mass surgical supply due to [facility] not doing delivery. DME Disposable bed pads documented in this encounter Plan of Treatment Upcoming Encounters Date Type Department Care Team (Late st Contact Info) Description 08/05/2024 10:30 AM EDT Office Visit [facility] MED & PEDS 505 [place] [address] Toyin Pollard FNP 505 [place] [address] 09/23/2024 11:00 AM EDT Telemedicine [facility] MED & PEDS 505 [place] [address] 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, RN [address] [place] [address] documented as of this encounter Goals Goal [...] documented as of this encounter Care Teams Head Bander And Liner Operator Relationship Specialty Start Date End Date Toyin Pollard FNP 230 [place] [address] PCP - General Family Medicine 01/11/21 Satish Brennan MD [address] [place] [address] Endocrinology 02/22/24 Jacob Morrow 5 [place] [address] Pulmonary Disease 02/22/24 Nicolasa Escobar MD [address] [place] [address] Dr Kameron 140 [place] [address] Neurology 02/22/24 Shen Davis MD [address] [place] [address] Nephrology 02/22/24 Ellyn Connolly Reimbursement AuditorAutomobile Upholstery Trim Installer 08/17/23 [facility] 01/11/24 01/21/24 [facility] 01/11/24 documented as of this encounter
--- OUTSIDE RECORDS SUMMARY | 2024-07-02 12:28 | XMS_ITS | Encounter Summary ---
Author Organization [employer] Address 75 [facility] 7t [place] [address] Care Team Providers Care Bi Tri Operator Name Role Phone Toyin Pollard Primary Care Provider [phone] Satish Brennan MD Unavailable Jacob Morrow Unavailable [phone] Nicolasa Escobar MD Unavailable Shen Davis MD Unavailable [phone] Encounter Details Date Type Department Care Team (Late st Contact Info) Description 07/13/2022 Orders Only [facility] MEDICINE 230 [place] [address] Toyin Pollard FNP 505 [place], [place] [phone] Social History Tobacco Use Types Packs/Day Years [...] 08/05/2024 10:30 AM EDT Office Visit [facility] MED & PEDS 505 [place], [place] [phone] Toyin Pollard FNP 505 [place], [place] [phone] 09/23/2024 11:00 AM EDT Telemedicine [facility] MED & PEDS 505 [place] [address] 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, RN [address] [place] [address] documented as of this encounter Visit Diagnoses Not on filedocumented in this encounter Care Teams Bi Tri Operator Relationship Specialty Start Date End Date Toyin Pollard FNP [address] [place] [address] PCP - General Family Medicine 01/11/21 Satish Brennan MD [address] [place] [address] Endocrinology 02/22/24 Jacob Morrow 5 [place] [address] Pulmonary Disease 02/22/24 Nicolasa Escobar MD [address] [place] [address] [facility] 140 [place] [address] Neurology 02/22/24 Shen Davis MD [address] [place] [address] Nephrology 02/22/24 Ellyn Connolly Sock IronerImmunohematologist 08/17/23 [facility] 01/11/24 01/21/24 [facility] 01/11/24 documented as of this encounter
--- OUTSIDE RECORDS SUMMARY | 2024-07-02 12:28 | XMS_ITS | Encounter Summary ---
Author Organization [employer] Address 75 [facility] 7t [place] [address] Care Team Providers Care Hospice Chaplain Name Role Phone Toyin Pollard Primary Care Provider [phone] Satish Brennan MD Unavailable [phone] Jacob Morrwo Unavailable [phone] Nicolasa Escobar MD Unavailable [phone] Shen Davis MD Unavailable [phone] Encounter Details Date Type Department Care Team (Late st Contact Info) Description 04/26/2022 Abstract [facility] MEDICINE [address] [place] [address] Toyin Pollard FNP 505 [place] [address] Social History Tobacco Use Types Packs/Day Years [...] Description 08/05/2024 10:30 AM EDT Office Visit [facility] MED & PEDS 505 [place], [place] [phone] Toyin Pollard FNP 505 [place], [place] [phone] 09/23/2024 11:00 AM EDT Telemedicine [facility] MED & PEDS 505 [place] [address] 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, RN [address] [place] [address] documented as of this encounter Visit Diagnoses Not on filedocumented in this encounter Care Teams Hospice Chaplain Relationship Specialty Start Date End Date Toyin Pollard FNP [address] [place] [address] PCP - General Family Medicine 01/11/21 Satish Brennan MD [address] [place] [address] Endocrinology 02/22/24 Jacob Morrow 5 [place] [address] Pulmonary Disease 02/22/24 Nicolasa Escobar MD [address] [place] [address] Dr [address] [place] [address] Neurology 02/22/24 Shen Davis MD [address] [place] [address] Nephrology 02/22/24 Ellyn Connolly Fruit Grader OperatorCartridge Belt Puncher 08/17/23 [facility] 01/11/24 01/21/24 [facility] 01/11/24 documented as of this encounter
--- OUTSIDE RECORDS SUMMARY | 2024-07-02 12:28 | XMS_ITS | Encounter Summary ---
Author Organization [email or web address] Address 75 [facility] 7t [place] [address] Care Team Providers Care Carbonation Equipment Operator Name Role Phone Toyin Pollard LOUIE Primary Care Provider [phone] Satish Brennan MD Unavailable [phone] Jacob Morrow Unavailable [phone] Nicolasa Escobar MD Unavailable Shen Davis MD Unavailable [phone] Reason for Visit * Reason Comments Med Refill Encounter Details Date Type Department Care Team (Late st Contact Info) Description 08/24/[address] [facility] MEDICINE 230 [place], [place] [phone] Agustina Toribio MD 230 [place], [place] [phone] Social History Tobacco Use Types Packs/Day Years [...] the past 12 months, has t he [employer], gas, oil or water company threatened to [...] 10:30 AM EDT Office Visit [facility] MED & PEDS 505 [place] [address] Toyin Pollard FNP 505 [place] [address] 09/23/2024 11:00 AM EDT Telemedicine [facility] MED & PEDS 505 [place] [address] 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, MINA 505 [place] [address] documented as of this encounter Goals Goal [...] documented as of this encounter Care Teams Carbonation Equipment Operator Relationship Specialty Start Date End Date Phalen, Toyin, COMPUTER NUMERIC CONTROL SETTER 230 [place] [address] PCP - General Family Medicine 01/11/21 Satish Brennan MD [address] [place] [address] Endocrinology 02/22/24 Jacob Morrow [address] [facility] [place] [address] Pulmonary Disease 02/22/24 iNcolasa Escobar MD [address] [place] [address] [address] Neurology 02/22/24 Shen Davis MD [address] [place] [address] Nephrology 02/22/24 Ellyn Connolly Marketing Education TeacherIndustrial Technologist 08/17/23 [facility] 01/11/24 01/21/24 [facility] 01/11/24 documented as of this encounter
--- OUTSIDE RECORDS SUMMARY | 2024-07-02 12:28 | XMS_ITS | Encounter Summary ---
Author Organization [employer] Address 75 [facility] 7t [place] [address] Care Team Providers Care Line Service Technician Name Role Phone Toyin Pollard Primary Care Provider Satish Brennan MD Unavailable Jacob Morrow Unavailable [phone] Nicolasa Escobar MD Unavailable Shen Davis MD Unavailable [phone] Reason for Visit * Reason Onset Date Comments PT1 01/30/2023 Encounter Details Date Type Department Care Team (Late st Contact Info) Description 01/30/2023 Telephone [facility] MEDICINE 230 [place], [place] [phone] Toyin Pollard FNP 505 [place], [place] [phone] PT1 Social History Tobacco Use Types Packs/Day [...] Date: 03/27/2022 Time: 8:30 Visits: 5 Address: [address] [place] [address] Facility: [facility] Neurology Wheel Chair: Scooter and O2 Warp Drawer Needed: Yes 1 documented in this encounter Plan of Treatment Upcoming Encounters Date Type Department Care Team ([facility] st Contact Info) Description 08/05/2024 10:30 AM EDT Office Visit [facility] MED & PEDS 505 [place] [address] Toyin Pollard FNP 505 [place] [address] 09/23/2024 11:00 AM EDT Telemedicine [facility] MED & PEDS 505 [place] [address] 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, RN [address] [place] [address] documented as of this encounter Goals Goal [...] documented as of this encounter Care Teams Line Service Technician Relationship Specialty Start Date End Date Toyin Pollard FNP [address] [place] [address] PCP - General Family Medicine 01/11/21 Satish Brennan MD [address] [place] [address] Endocrinology 02/22/24 Jacob Morrow 5 [place] [address] Pulmonary Disease 02/22/24 Nicolasa Escobar MD [address] [place] [address] Dr [facility] 140 [place] [address] Neurology 02/22/24 Shen Davis MD [address] [place] [address] Nephrology 02/22/24 Ellyn Connolly Clinical Business ManagerTalent Assistant 08/17/23 [facility] 01/11/24 01/21/24 [facility] 01/11/24 documented as of this encounter
--- OUTSIDE RECORDS SUMMARY | 2024-07-02 12:28 | XMS_ITS | Data Portability ---
Author Organization [place] [facility] Address [address] [place] [id number] Assessment No assessment recorded. Plan of Treatment Reminders Order Date Submit Date Provider Last Modified By Organization Details Last Modified Time Details Appointments None recorded . Lab thyroid panel, serum 2016 017 [facility], [address] [place], [address], 7 12:52:40 lipid panel, serum 2016 017 [facility], [address] [place], [address], 7 12:52:40 CMP, serum or plasma 2016 017 [facility], [address] [place], [address], 7 12:52:41 CBC w/ auto diff 2016 017 [facility], [address] [place], [address], 7 12:52:41 urinalys is, complete 2016 017 [facility], [address] [place], [address], 7 12:52:42 RPR (rapid plasma reagin), serum 2016 017 [facility], [address] [place], [address], 7 12:52:42 HIV (1+2) Ab, rapid, unspecif ied specimen 2016 017 [facility] In-House Test, For Internal Use Only, Do Not Delete/merge, [id number] 7 15:14:46 Referral gynecolo gist referral 2016 017 [email or web address] Not available 7 13:35:43 cardiolo gist referral 2016 017 [email or web address] Not available 7 11:17:59 Procedures None recorded . Surgeries None recorded . Imaging None recorded . Medication Orders clonidin e HCl 0.2 mg tablet [address], [address] [place], [address], 7 13:07:06 clonidin e HCl 0.1 mg tablet [address], [address] [place] [place], [address], 7 13:07:06 atenolol 50 mg tablet 2016 017 [facility], [address] [place], [address], 7 13:10:09 cycloben zaprine 10 mg tablet 2016 017 INTERFACE [facility], [address], [place], [address], 7 17:10:12 tramadol 50 mg tablet 2016 017 [facility], [address] [place], [address], 7 07:59:06 levothyr oxine 75 mcg tablet [address] [facility], [address] [facility], [place], [address], 13:10:09 Patient TargetsNo targets recorded. 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 Referral for Gy necologic examination Referring Physician: Andrés Phan, Internal Medicine, Encounter Date: 04/20/2016 Parish Nurse Referral for Hy pothyroidism Referring Physician: Andrés Phan, Internal Medicine, Encounter Date: 04/20/2016 Results Created Date Observation Date Name Description Value Unit Range Abnormal Flag Note LastModifiedBy Organization Detail LastModifiedTime 05/24/19 17 05/24/2016 thyro id panel , serum T3 uptake 34 % 22-35 normal Not Available [facility] [address] [place], [address], 05/24/2016 12:52:40 05/24/19 17 05/24/2016 thyro id panel , serum T4 (thyroxine), total 5.4 mcg/d L 4.5-12 .0 normal Not Available [facility] [address] [place], [address], 05/24/2016 12:52:40 05/24/19 17 05/24/2016 thyro id panel , serum free T4 index (T7) 1.8 1.4-3. 8 normal Not Available [facility] [address] [place], [address], 05/24/2016 12:52:40 05/24/19 17 05/24/2016 thyro id panel , serum TSH 16.59 mIU/L high Refer ence Range > or = 20 Years 0.40- 4.50 Pregn ting Range s First trime ster 0.26- 2.66 Secon d trime ster 0.55- 2.73 Third trime ster 0.43- 2.91 Not Available [facility] [address] [place], [address], 05/24/2016 12:52:40 05/24/19 17 05/24/2016 lipid panel , serum cholesterol, total 201 mg/dL 125-20 0 high Not Available [facility] [address] [facility] [address] [place], [address], 05/24/2016 12:52:40 05/24/19 17 05/24/2016 lipid panel , serum HDL cholesterol 47 mg/dL > or = 46 normal Not Available [facility] [address] [facility] [address] [place], [address], 05/24/2016 12:52:40 05/24/19 17 05/24/2016 lipid panel , serum triglyceride s 173 mg/dL <150 high Not Available [facility] [address] [facility] [address] [place], [address], 05/24/2016 12:52:40 05/24/1905/24/2016 lipid panel , serum LDL-choleste rol 119 mg/dL _(romana c) <130 normal Phil able range <100 mg/dL for patie nts with CHD or diabe adam and <70 mg/dL for diabe tic patie nts with known heart disea se. Not Available [facility] [place], [address], 05/24/2016 12:52:40 05/24/19 17 05/24/2016 lipid panel , serum chol/HDLC ratio 4.3 (calc ) < or = 5.0 normal Not Available [facility] [address] [place], [address], 05/24/2016 12:52:40 05/24/19 17 05/24/2016 lipid panel , serum non HDL cholesterol 154 mg/dL _(romana c) normal Targe t for non-H DL blaine stero l is 30 mg/dL highe r than LDL blaine stero l targe t. Not Available [facility] [address] [place], [address], 05/24/2016 12:52:40 05/24/19 17 05/24/2016 CMP, serum or plasm a glucose 100 mg/dL 65-99 high Fasti ng refer ence inter shayy Not Available [facility] [address] [place] [address], [address], 05/24/2016 12:52:41 05/24/19 17 05/24/2016 CMP, serum or plasm a urea nitrogen (BUN) 12 mg/dL 7-25 normal Not Available [facility] [address], [address], 05/24/2016 12:52:41 05/24/19 17 05/24/2016 CMP, serum or plasm a creatinine 0.74 mg/dL 0.50-1 .10 normal Not Available [facility] [address] [facility] [address] [place] [address], [address], 05/24/2016 12:52:41 05/24/19 17 05/24/2016 CMP, serum or plasm a eGFR non-afr. puerto rican 98 mL/mi n/1.7 3m2 > or = 60 normal Not Available [facility] [address] [place] [address] [place], [address], 05/24/2016 12:52:41 05/24/19 17 05/24/2016 CMP, serum or plasm a eGFR 113 mL/mi n/1.7 3m2 > or = 60 normal Not Available [facility] [address] [place] [address] [place], [address], 05/24/2016 12:52:41 05/24/19 17 05/24/2016 CMP, serum or plasm a BUN/creatini ne ratio NOT APPLIC ABLE (calc ) 6-22 Not Available [facility] [address] [place], [address], 05/24/2016 12:52:41 05/24/19 17 05/24/2016 CMP, serum or plasm a sodium 136 mmol/ L 135-14 6 normal Not Available [address], [address], 05/24/2016 12:52:41 05/24/19 17 05/24/2016 CMP, serum or plasm a potassium 4.4 mmol/ L 3.5-5. 3 normal Not Available [address], [address], 05/24/2016 12:52:41 05/24/19 17 05/24/2016 CMP, serum or plasm a chloride 101 mmol/ L 98-110 normal Not Available [address], [address], 05/24/2016 12:52:41 05/24/19 17 05/24/2016 CMP, serum or plasm a carbon dioxide 22 mmol/ L 20-31 normal Not Available [facility] [address] [place] [address], [address], 05/24/2016 12:52:41 05/24/19 17 05/24/2016 CMP, serum or plasm a calcium 9.3 mg/dL 8.6-10 .2 normal Not Available [address], [address], 05/24/2016 12:52:41 05/24/19 17 05/24/2016 CMP, serum or plasm a protein, total 7.0 g/dL 6.1-8. 1 normal Not Available [address], [address], 05/24/2016 12:52:41 05/24/19 17 05/24/2016 CMP, serum or plasm a albumin 4.0 g/dL 3.6-5. 1 normal Not Available [facility] [address] [place], [address], 05/24/2016 12:52:41 05/24/19 17 05/24/2016 CMP, serum or plasm a globulin 3.0 g/dL_ (calc ) 1.9-3. 7 normal Not Available [facility] [address] [place] [address] [place], [address], 05/24/2016 12:52:41 05/24/19 17 05/24/2016 CMP, serum or plasm a albumin/glob ulin ratio 1.3 (calc ) 1.0-2. 5 normal Not Available [facility] [address] [place] [address] [place], [address], 05/24/2016 12:52:41 05/24/19 17 05/24/2016 CMP, serum or plasm a bilirubin, total 0.3 mg/dL 0.2-1. 2 normal Not Available [facility] [address] [place] [address] [place], [address], 05/24/2016 12:52:41 05/24/19 17 05/24/2016 CMP, serum or plasm a alkaline phosphatase 55 U/L 33-115 normal Not Available [facility] [address] [place] [address] [place], [address], 05/24/2016 12:52:41 05/24/19 17 05/24/2016 CMP, serum or plasm a AST 15 U/L 10-35 normal Not Available [facility] [address] [place] [address] [place], [address], 05/24/2016 12:52:41 05/24/19 17 05/24/2016 CMP, serum or plasm a ALT 13 U/L 6-29 normal Not Available [facility] [address] [place] [address] [place], [address], 05/24/2016 12:52:41 05/24/19 17 05/24/2016 CBC w/ auto diff white blood cell count 9.1 thous and/u L 3.8-10 .8 normal Not Available [facility] [address] [place] [address], [address], 05/24/2016 12:52:41 05/24/19 17 05/24/2016 CBC w/ auto diff red blood cell count 4.78 radha on/uL 3.80-5 .10 normal Not Available [facility] [address] [place] [address], [address], 05/24/2016 12:52:41 05/24/19 17 05/24/2016 CBC w/ auto diff hemoglobin 13.8 g/dL 11.7-1 5.5 normal Not Available [facility] [address] [place] [address], [address], 05/24/2016 12:52:41 05/24/19 17 05/24/2016 CBC w/ auto diff hematocrit 42.7 % 35.0-4 5.0 normal Not Available [facility] [address] [place] [address], [address], 05/24/2016 12:52:41 05/24/19 17 05/24/2016 CBC w/ auto diff MCV 89.5 fL 80.0-1 00.0 normal Not Available [facility] [address] [place] [address], [address], 05/24/2016 12:52:41 05/24/19 17 05/24/2016 CBC w/ auto diff MCH 28.9 pg 27.0-3 3.0 normal Not Available [facility] [address] [place] [address], [address], 05/24/2016 12:52:41 05/24/19 17 05/24/2016 CBC w/ auto diff MCHC 32.3 g/dL 32.0-3 6.0 normal Not Available [address] [place], [address], 05/24/2016 12:52:41 05/24/19 17 05/24/2016 CBC w/ auto diff RDW 13.7 % 11.0-1 5.0 normal Not Available [address], [address], 05/24/2016 12:52:41 05/24/19 17 05/24/2016 CBC w/ auto diff platelet count 305 thous and/u L 140-40 0 normal Not Available [facility] [address] [place] [address], [address], 05/24/2016 12:52:41 05/24/19 17 05/24/2016 CBC w/ auto diff MPV 10.6 fL 7.5-12 .5 normal Not Available [address], [address], 05/24/2016 12:52:41 05/24/19 17 05/24/2016 CBC w/ auto diff absolute neutrophils 5369 cells /uL 1500-7 800 normal Not Available [facility] [address] [place] [address], [address], 05/24/2016 12:52:41 05/24/19 17 05/24/2016 CBC w/ auto diff absolute lymphocytes 2739 cells /uL 850-39 00 normal Not Available [facility] [address] [place] [address], [address], 05/24/2016 12:52:41 05/24/19 17 05/24/2016 CBC w/ auto diff absolute monocytes 510 cells /uL 200-95 0 normal Not Available [facility] [address] [place] [address], [address], 05/24/2016 12:52:41 05/24/19 17 05/24/2016 CBC w/ auto diff absolute eosinophils 400 cells /uL 15-500 normal Not Available [facility] [address] [place], [address], 05/24/2016 12:52:41 05/24/19 17 05/24/2016 CBC w/ auto diff absolute basophils 82 cells /uL 0-200 normal Not Available [address], [address], 05/24/2016 12:52:41 05/24/19 17 05/24/2016 CBC w/ auto diff neutrophils 59.0 % normal Not Available [address], [address], 05/24/2016 12:52:41 05/24/19 17 05/24/2016 CBC w/ auto diff lymphocytes 30.1 % normal Not Available [address], [address], 05/24/2016 12:52:41 05/24/19 17 05/24/2016 CBC w/ auto diff monocytes 5.6 % normal Not Available [address], [address], 05/24/2016 12:52:41 05/24/19 17 05/24/2016 CBC w/ auto diff eosinophils 4.4 % normal Not Available [address], [address], 05/24/2016 12:52:41 05/24/19 17 05/24/2016 CBC w/ auto diff basophils 0.9 % normal Not Available [facility] [address], [address], 05/24/2016 12:52:41 05/24/1905/24/2016 urina lysis , compl ete color YELLOW yellow normal Not Available [facility] [address], [address], 05/24/2016 12:52:42 05/24/19 17 05/24/2016 urina lysis , compl ete appearance CLEAR clear normal Not Available [place] [address] [place], [address], 05/24/2016 12:52:42 05/24/19 17 05/24/2016 urina lysis , compl ete specific gravity 1.020 1.001- 1.035 normal Not Available [address] [place], [address], 05/24/2016 12:52:42 05/24/19 17 05/24/2016 urina lysis , compl ete pH 6.0 5.0-8. 0 normal Not Available [facility] [address] [place] [address] [place], [address], 05/24/2016 12:52:42 05/24/19 17 05/24/2016 urina lysis , compl ete glucose NEGATI VE negati ve normal Not Available [address] [place], [address], 05/24/2016 12:52:42 05/24/19 17 05/24/2016 urina lysis , compl ete bilirubin NEGATI VE negati ve normal Not Available [address] [place], [address], 05/24/2016 12:52:42 05/24/19 17 05/24/2016 urina lysis , compl ete ketones NEGATI VE negati ve normal Not Available [facility] [place] [address] [place], [address], 05/24/2016 12:52:42 05/24/19 17 05/24/2016 urina lysis , compl ete occult blood 2+ negati ve abnormal Not Available [place] [address] [place], [address], 05/24/2016 12:52:42 05/24/19 17 05/24/2016 urina lysis , compl ete protein NEGATI VE negati ve normal Not Available [address], [address], 05/24/2016 12:52:42 05/24/19 17 05/24/2016 urina lysis , compl ete nitrite NEGATI VE negati ve normal Not Available [address], [address], 05/24/2016 12:52:42 05/24/19 17 05/24/2016 urina lysis , compl ete leukocyte esterase NEGATI VE negati ve normal Not Available [address], [address], 05/24/2016 12:52:42 05/24/19 17 05/24/2016 urina lysis , compl ete WBC 0-5 /hpf < or = 5 normal Not Available [address], [address], 05/24/2016 12:52:42 05/24/19 17 05/24/2016 urina lysis , compl ete RBC 0-2 /hpf < or = 2 normal Not Available [address], [address], 05/24/2016 12:52:42 05/24/19 17 05/24/2016 urina lysis , compl ete squamous epithelial cells 0-5 /hpf < or = 5 Not Available [facility] [address], [address], 05/24/2016 12:52:42 05/24/19 17 05/24/2016 urina lysis , compl ete bacteria NONE SEEN /hpf none seen normal Not Available [address] [place], [address], 05/24/2016 12:52:42 05/24/19 17 05/24/2016 urina lysis , compl ete hyaline cast NONE SEEN /lpf none seen normal Not Available [facility] [address] [facility] [address] [place], [address], 05/24/2016 12:52:42 05/24/19 17 05/24/2016 RPR (rapi [...] ented for this patie nt. Not Available [facility] [address] [place], [address], 05/24/2016 12:52:42 05/24/19 17 05/24/2016 RPR titer RPR titer 1:1 high Not Available [facility] [address] [place], [address], 05/24/2016 12:52:43 Result Notes None recorded. Problems Name Problem SNOMED Code Status Onset Date Resolution Date Notes Provider Name and Address Organization Details Recorded Time Adult health examination Active 2013 USER: VIJAYA Not Available [facility] 4 11:20:28 Problem Notes None recorded. Procedures Surgical History Date Name Laterality Status Provider Name and Address Organization Details Recorded Time 7 HEDIS 1125F Pain Present completed [facility] 04/20/2016 10:46:03 7 HEDIS 3077F Systolic > or equal to 140 mm Hg completed [facility] 04/20/2016 10:46:06 7 HEDIS 3080F Diastolic > or equal to 90 mm Hg completed [facility] 04/20/2016 10:46:09 Tubal Ligation completed [facility] 04/20/2016 10:43:38 Hernia Repair completed [facility] 04/20/2016 10:43:44 Imaging Results None recorded. Procedure [...] Not Available Not Available Not Available [facility] 04/20 completed CURRENT; DAYS: 30; ONCE A DAY [...] Address Organization Details Last Updated DateTime 7 010699. 58 g 98 [degF] 165.1 cm 39.8 kg/m2 97 /min 17 /min 166 mm[Hg] 131 mm[Hg] 147 mm[Hg] 117 mm[Hg] 156 mm[Hg] 117 mm[Hg] Radha Ivory [facility] 7 12:24:38 Date Recorded Pain severity - 0-10 verbal numeric rating [Score] - Reported Provider Name and Address Organization Details Last Updated DateTime 04/20/2016 6 Not Available [facility] 8 06:22:32 Social History Question Answer Notes LastModified by Organizat ion Details LastModified Time Tobacco Smoking Status Current Every Day Smoker Radha santiago [facility] 04/20/2016 10:37:28 What Is Your Level Of Alcohol Consumption? None [email or web address] Information not available 04/20/2016 What Is Your Level Of Caffeine Consumption? None [email or web address] Information not available 04/20/2016 Are You Currently Employed? No [email or web address] Information not available 04/20/2016 What Type Of Diet Are You Following? [email or web address] Information not available 04/20/2016 Do You Have A Directive To Physicians? Yes Information not available 04/20/2016 Education 8 [email or web address] Information no t available 04/20/2016 What Is Your Occupation? No [email or web address] Information not available 04/20/2016 Have You Been Exposed To Chemicals Or Toxins? No [email or web address] Information not available 04/20/2016 Have You Been Exposed To Heavy Metals? No [email or web address] Information not available 04/20/2016 Are There Any Guns Present In Your Home? No [email or web address] Information not available 04/20/2016 Hard Of Hearing Or Deaf In One Or Both Ears? No [email or web address] Information not available 04/20/2016 High Blood Pressure Yes [email or web address] Information not available 04/20/2016 High Cholesterol Yes [email or web address] Informat ion not available 04/20/2016 HIV Risk Factors No [email or web address] Informat ion not available 04/20/2016 Legally Blind In One Or Both Eyes? No Information no t available 04/20/2016 Live Alone Or With Others? With Others Information not available 04/20/2016 Have You Recently Traveled To Any Other Country In [place]? No Information not available 04/20/2016 If Yes, During This Travel Have You Been Exposed To Mosquitoes Bites? No [email or web address] Information not available 04/20/2016 Have You Experienced Any Two Of The Following Symptoms? No [email or web address] Information not available 04/20/2016 Rash No [email or web address] Information no t available 04/20/2016 Conjuctivitis No [email or web address] Information not available 04/20/2016 Low Grade Fever No [email or web address] Informati on not available 04/20/2016 Muscle Pain No [email or web address] Information n ot available 04/20/2016 Number Of Sexual Partners 1 [email or web address] Information not available 04/20/2016 Have You Ever Been Tested For HIV? Yes 2 Months Ago Negative [email or web address] Information not available 04/20/2016 Have You Had A Fall In The Past (6) Months? No [email or web address] Information not available 04/20/2016 Have You Ever Had A Fall That Resulted In Broken Bone? Yes Information not available 04/20/2016 Do You Have A Problem With Your Balance? Yes Information not available 04/20/2016 Do You Get Dizzy When You Stand Up Quickly? Yes Information not available 04/20/2016 Do You Have A Problem Wth Your Memory? Yes [email or web address] Information not available 04/20/2016 Marital Status [email or web address] Informatio n not available 04/20/2016 How Many Children Do You Have? 7 [email or web address] Information not available 04/20/2016 Do You Use Protection During Sex? No [email or web address] Information not available 04/20/2016 Difficulty Reading? Yes [email or web address] Information not available 04/20/2016 What Is Your Relationship Status? [email or web address] Information not available 04/20/2016 Seat Belts Used Routinely No [email or web address] Information not available 04/20/2016 Are You Sexually Active? Yes [email or web address] Information not available 04/20/2016 Sexual Partner Has HIV? No Information not available 04/20/2016 Number Of Sexual Partners 1 [email or web address] Information not available 04/20/2016 Sexual Partner Uses IV Drugs? No Information not available 04/20/2016 Smoke Alarm In Home No [email or web address] Information not available 04/20/2016 At What Age Did You Start Smoking Tobacco? 14 [email or web address] Information not available 04/20/2016 Are You Passively Exposed To Smoke? Yes [email or web address] Information no t available 04/20/2016 How Much Tobacco Do You Smoke? 0.25 PPD [email or web address] Information not available 04/20/2016 General Stress Level High [email or web address] Information not available 04/20/2016 How Many Years Have You Smoked Tobacco? 32 [email or web address] Information not available 04/20/2016 Difficulty Watching TV? No [email or web address] Information not available 04/20/2016 Have You Used IV Drugs? No [email or web address] Information not available 04/20/2016 Have You Recently (within The Last 12 Weeks, Or During A Current ) Traveled To Or Lived In A [place]ika-affected Area? No [email or web address] Information not available 04/20/2016 Sex: Unknown Functional Status Question Answer Note LastModified by Organizat ion Details LastModified Time Do you have difficulty walking or climbing stairs? No Information not available 04/20/[address]y [address] at night? No [email or web address] Information no t available 04/20/2016 Do you have difficulty doing errands alone? Yes [email or web address] Information not available 04/20/2016 Are you able to care for yourself? Yes [email or web address] Information not available 04/20/2016 Do you have difficulty dressing or bathing? No [email or web address] Information not available 04/20/2016 What is your exercise level? Occasional [email or web address] Information not available 04/20/2016 Mental Status Question Answer Note LastModified by Organization D etails LastModified Time Do you have difficulty concentrating, remembering or making decisions? Yes [email or web address] Information no t available 04/20/2016 Family History Relationship Description Onset Age of this Age Resolved Age Notes LastModified by Organization Details LastModified Time Maternal Grandfather Schizophreni a Not available 2016 10:36:19 Maternal Grandfather Asthma [email or web address] Not available 03/2016 10:36:56 Maternal Grandfather Heart disease [email or web address] Not available 2016 10:37:12 Maternal Grandmother Asthma [email or web address] Not available 03/2016 10:36:49 Maternal Grandmother Heart disease [email or web address] Not available 2016 10:37:18 Medical History No [...] SNOMED-CT Code Diagnosis ICD10 Code Diagnosis Note [id number] [facility] [address] [facility] [place] [phone] 06/19/2013 00:00:00 [id number] Stephanie barrow MD [facility] [address] [place] [place] [address] 12/30/2015 08:10:23 12/30/2015 10:00:04 [id number] Stephanie barrow MD [facility] [address] [place] [address] 01/29/2016 07:59:02 01/29/2016 15:25:39 [id number] Stephanie barrow MD [facility] [address] [place] [id number] 02/26/2016 07:43:57 02/26/2016 09:05:47 [id number] Tawanna Valera [facility] Mental [facility] [address] [place] [address] 03/28/2016 08:39:33 03/28/2016 11:20:24 [id number] Tawanna Valera [facility] [address] [place] [address] 04/05/2016 09:00:14 04/05/2016 09:13:01 [id number] Andra_Ol ler_[facility] Mental [facility] [address] [place] [address] 04/12/2016 09:08:56 04/12/2016 10:07:05 [id number] Stephanie barrow MD [facility] Mental Health [address] [place] [address] 04/18/2016 08:32:39 04/18/2016 09:40:55 [id number] SAMARIA Treviño [facility] Mental Health [address] [place] [address] 04/18/2016 08:35:25 04/18/2016 09:11:18 [id number] Andrés Phan MD [facility] MED [address] [place] [address] 04/20/2016 10:04:27 04/20/2016 13:35:42 Essential hypertension 14614092 I10 Gynecologi c examination [id number] Z01.419 Hypothyroidism 20464438 E03.9 [id number] Tawanna Valera [facility] Mental Health [address] [place] [address] 05/19/2016 09:13:23 05/20/2016 14:05:08 [id number] Beatriz_Ol ler_CM [facility] Mental Health [address] [place] [address] 05/19/2016 09:17:16 05/19/2016 09:56:41 [id number] Stephanie barrow MD [facility] Mental Health [address] [place] [address] 05/23/2016 09:03:45 05/23/2016 10:08:42 [id number] Tawanna Valera [facility] Mental Health [address] [address] 06/07/2016 14:25:04 06/07/2016 15:23:36 Health Concerns Section Related Observation LastModified by Organization Detai ls LastModified Time None Recorded Concern Status LastModified by Organization Details LastModified Time None Recorded Advance Directives Directive None Recorded Payers Encounter Date Sequence Insurance Name Policy Number Policy Weston Covered Member ID Weston Member ID Guarantor Name 04/20/2016 BCARE (MOVED - BILLED) Elle Lopez [id number] Elle Lopez Notes Date Note Type Note Provider Name and Address Organization Details Recorded Time 04/20/2016 text/html the pt is here for check up she is part of [employer] Andrés Phan MD [address] [place], [address], [facility] 04/20/2016 13:11:30 OBGyn Episode No OBEpisode recorded.
--- OUTSIDE RECORDS SUMMARY | 2024-07-02 12:28 | XMS_ITS | Encounter Summary ---
Author Organization [employer] Address [address] [facility] 7t [place] [address] Care Team Providers Care Brim Plater Name Role Phone Toyin Pollard Primary Care Provider [phone] Satish Brennan MD Unavailable Jacob Morrow Unavailable [phone] Nicolasa Escobar MD Unavailable Shen Davis MD Unavailable [phone] Reason for Visit * Reason Onset Date Comments transportation needed 05/15/2024 Encounter Details Date Type Department Care Team (Late st Contact Info) Description 05/15/2024 Telephone [facility] MEDICINE [address] [place], [place] [phone] Toyin Pollard FNP [address] [place], [place] [phone] transportation needed Social History Tobacco Use Types [...] - 05/15/2024 2:22 PM EST TC from [facility] Plastic Surgery Assistant to pt reports pt needing stretcher transportation for upcoming visit with [facility] 05/21/24 . Family Literacy Coordinator believe they are requesting an ambulance service. documented in this encounter Plan of Treatment Upcoming Encounters Date Type Department Care Team (Late st Contact Info) Description 08/05/2024 10:30 AM EDT Office Visit [facility] MED & PEDS [address] [place] [address] Toyin Pollard FNP 505 [place] [address] 09/23/2024 11:00 AM EDT Telemedicine [facility] MED & PEDS [address] [place] [address] 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, RN 505 [place] [address] documented as of this encounter Goals Goal [...] documented as of this encounter Care Teams Brim Plater Relationship Specialty Start Date End Date Toyin Pollard FNP [address] [place] [address] PCP - General Family Medicine 01/11/21 Satish Brennan MD [address] [facility] 104 [place] [address] Endocrinology 02/22/24 Jacob Morrow 5 [place] [address] Pulmonary Disease 02/22/24 Nicolasa Escobar MD [address] [place] [address] Dr Kameron 140 [place] [address] Neurology 02/22/24 Shen Davis MD [address] [place] [address] Nephrology 02/22/24 Ellyn Connolly Comb TenderCake Puncher 08/17/23 [facility] 01/11/24 documented as of this encounter
--- OUTSIDE RECORDS SUMMARY | 2024-07-02 12:28 | XMS_ITS | Encounter Summary ---
Author Organization [employer] Address [address] [facility] 7t [place] [address] Care Team Providers Care Category Planner Name Role Phone Toyin Pollard Primary Care Provider Satish Brennan MD Unavailable [phone] Jacob Morrow Unavailable [phone] Nicolasa Escobar MD Unavailable Shen Davis MD Unavailable [phone] Encounter Details Date Type Department Care Team (Late Contact Info) Description 05/24/[address] [facility] MEDICINE 230 [place] [address] Toyin Pollard FNP 505 [place], [place] [phone] Social History Tobacco Use Types Packs/Day Years [...] Upcoming Encounters Date Type Department Care Team ([facility] Contact Info) Description 08/05/2024 10:30 AM EDT Office Visit [facility] MED & PEDS 505 [place] [address] Toyin Pollard FNP 505 [place] [address] 09/23/2024 11:00 AM EDT Telemedicine [facility] MED & PEDS 505 [place] [address] 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, MINA [address] [place] [address] documented as of this encounter Visit Diagnoses Not on filedocumented in this encounter Care Teams Category Planner Relationship Specialty Start Date End Date Toyin Pollard FNP [address] [place] [address] PCP - General Family Medicine 01/11/21 Satish Brennan MD [address] [place] [address] Endocrinology 02/22/24 Jacob Morrow 5 [place] [address] Pulmonary Disease 02/22/24 Nicolasa Escobar MD [address] [place] [address] Neurology 02/22/24 Shen Davis MD [address] [facility] 302 [place] [address] Nephrology 02/22/24 Ellyn Connolly Entry WriterParalegal Specialist 08/17/23 [facility] 01/11/24 01/21/24 [facility] 01/11/24 documented as of this encounter
--- OUTSIDE RECORDS SUMMARY | 2024-07-02 12:28 | XMS_ITS | Encounter Summary ---
Author Organization [employer] Address [address] [facility] 7t [place] [address] Care Team Providers Care Machine Leather Trimmer Name Role Phone Toyin Pollard LOUIE Primary Care Provider [phone] Satish Brennan MD Unavailable [phone] Jacob Morrow Unavailable [phone] Nicolasa Escobar MD Unavailable [phone] Shen Davis MD Unavailable [phone] Encounter Details Date Type Department Care Team ([facility] Contact Info) Description 07/21/2022 Orders Only [facility] MED & PEDS 505 [place] [address] Ellyn Chery LPN Social History Tobacco Use [...] Upcoming Encounters Date Type Department Care Team ([facility] Contact Info) Description 08/05/2024 10:30 AM EDT Office Visit [facility] MED & PEDS 505 [place] [address] Toyin Pollard FNP 505 [place] [address] 09/23/2024 11:00 AM EDT Telemedicine [facility] MED & PEDS [address] [place] [address] 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, RN [address] [place] [address] documented as of this encounter Visit Diagnoses Not on filedocumented in this encounter Care Teams Machine Leather Trimmer Relationship Specialty Start Date End Date Toyin Pollard FNP [address] [place] [address] PCP - General Family Medicine 01/11/21 Satish Brennan MD [address] [place] [address] Endocrinology 02/22/24 Jacob Morrow 5 [place] [address] Pulmonary Disease 02/22/24 Nicolasa Escobar MD [address] [place] [address] 140 [place] [address] Neurology 02/22/24 Shen Davis MD [address] [place] [address] Nephrology 02/22/24 Ellyn Connolly Printer ApprenticeSlot Floorperson 08/17/23 [facility] 01/11/24 01/21/24 [facility] 01/11/24 documented as of this encounter
--- OUTSIDE RECORDS SUMMARY | 2024-07-02 12:28 | XMS_ITS | Encounter Summary ---
Author Organization [employer] Address [address] [facility] 7t [place] [address] Care Team Providers Care Train Reservation Clerk Name Role Phone Toyin Pollard Primary Care Provider Satish Brennan MD Unavailable Jacob Morrow Unavailable [phone] Nicolasa Escobar MD Unavailable [phone] Shen Davis MD Unavailable [phone] Reason for Visit * Reason Comments Med Refill Encounter Details Date Type Department Care Team (Late st Contact Info) Description 04/12/2024 Refill [facility] MEDICINE 230 [place] [address] Toyin Pollard FNP 505 [place], [place] [phone] Long-term current use of opiate analgesic (Primary [...] 04/12/2024 5:16 PM EST Please schedule for AMERICAN BOARD CERTIFIED ORTHOTIST, thanks! documented in this encounter Plan of Treatment Upcoming Encounters Date Type Department Care Team (Late st Contact Info) Description 08/05/2024 10:30 AM EDT Office Visit [facility] MED & PEDS 505 [place] [address] Toyin Pollard FNP 505 [place] [address] 09/23/2024 11:00 AM EDT Telemedicine [facility] MED & PEDS [address] [place] [address] 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 RN 505 [place] [address] documented as of this encounter Goals Goal [...] documented as of this encounter Care Teams Train Reservation Clerk Relationship Specialty Start Date End Date Toyin Pollard FNP 230 [place] [address] PCP - General Family Medicine 01/11/21 Satish Brennan MD 10 [facility] 104 [place] [address] Endocrinology 02/22/24 Jacob Morrow 5 [place] [address] Pulmonary Disease 02/22/24 Nicolasa Escobar MD [address] [place] [address] [facility] 140 [place] [address] Neurology 02/22/24 Shen Davis MD 10 [facility] 302 [place] [address] Nephrology 02/22/24 Ellyn Connloly Medical Sales ConsultantIs/It Project Manager 08/17/23 [facility] 01/11/24 documented as of this encounter
--- OUTSIDE RECORDS SUMMARY | 2024-07-02 12:28 | XMS_ITS | Encounter Summary ---
Author Organization [employer] Address [address] [facility] 7t [place] [address] Care Team Providers Care Work Force Advisor Name Role Phone Toyin Pollard Primary Care Provider Satish Brennan MD Unavailable Jacob Morrow Unavailable [phone] Nicolasa Escobar MD Unavailable Shen Davis MD Unavailable [phone] Reason for Visit * Reason Onset Date Comments ER Follow-up 06/06/2023 Encounter Details Date Type Department Care Team (Late st Contact Info) Description 06/06/2023 Telephone [facility] MEDICINE 230 [place] [address] Toyin Pollard FNP 505 [place], [place] [phone] ER Follow-up Social History Tobacco Use Types [...] provided by ED. Pt requested appt at [facility] and scheduled pt with Dr. Franko Monet for 06/11 at 3:45 pm. Pt verbalized understanding and agreement with plan. * Telephone Encounter - Joseph Lopez - 06/06/2023 3:51 PM EDT Patient calling to report ED visit on : Date: 06/04 [facility] [facility] Seen for: COPD and bronchitis Patient advised will forward to team nurse for follow up documented in this encounter Plan of Treatment Upcoming Encounters Date Type Department Care Team ([facility] st Contact Info) Description 08/05/2024 10:30 AM EDT Office [facility] MED & PEDS 505 [place], [place] [phone] Toyin Pollard FNP 505 [place] [address] 09/23/2024 11:00 AM EDT Telemedicine [facility] MED & PEDS 505 [place], [place] [phone] 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, RN 505 [place], [place] documented as of this encounter Goals [...] documented as of this encounter Care Teams Work Force Advisor Relationship Specialty Start Date End Date Toyin Pollard FNP 230 [place] [address] PCP - General Family Medicine 01/11/21 Satish Brennan MD [address] [place] [address] Endocrinology 02/22/24 Jacob Morrow 5 [place] [address] Pulmonary Disease 02/22/24 Nicolasa Escobar MD [address] [place] [address] [place] [address] Neurology 02/22/24 Shen Davis MD [address] [place] [address] Nephrology 02/22/24 Ellyn Connolly Aircraft ArmorerMica Builder 08/17/23 [facility] 10/24/24 11/3/24 [facility] 01/11/24 documented as of this encounter
--- OUTSIDE RECORDS SUMMARY | 2024-07-02 12:28 | XMS_ITS | Encounter Summary ---
Author Organization [employer] Address [address] [facility] 7t [place] [address] Care Team Providers Care Trim Line Worker Name Role Phone Toyin Pollard Primary Care Provider Satish Brennan MD Unavailable [phone] Jacob Morrow Unavailable [phone] Nicolasa Escobar MD Unavailable Shen Davis MD Unavailable [phone] Reason for Visit * Reason Onset Date Comments Durable Medical Equipment 02/19/2024 Encounter Details Date Type Department Care Team (Late st Contact Info) Description 02/19/2024 Telephone [facility] MEDICINE 230 [place], [place] [phone] Toyin Pollard FNP 505 [place], [place] [phone] Durable Medical Equipment Social History Tobacco Use [...] Ivory LPN - 02/20/2024 10:21 AM EST Tailor Apprentice did see Rx was sent to [phone] pt has current RX no need for updates, leader writer Parisa at number below. However no answer and mail box full . Pt has appt tomorrow pt should discussthis need sending to PCP as FYI . Tc from [facility] ([employer]) requesting a new order for pt to be sent over for Poise sanitary pads , adult diapers oversized . Any questions please get in contact with [facility] at the callback number above. Callback [phone] * Telephone Encounter - Christina Paul - 02/19/2024 3:28 PM EST Tc from [facility] ([employer]) requesting a new order for pt to be sent over for Poise sanitary pads , adult diapers oversized . Any questions please get in contact with [facility] at the callback number above. Callback [phone] documented in this encounter Plan of Treatment Upcoming Encounters Date Type Department Care Team ([facility] st Contact Info) Description 08/05/2024 10:30 AM EDT Office Visit [facility] MED & PEDS 505 [place] [address] Toyin Pollard FNP 505 [place] [address] 09/23/2024 11:00 AM EDT Telemedicine [facility] MED & PEDS 505 [place] [address] 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, MINA 505 [place], [place] documented as of this encounter Goals [...] documented as of this encounter Care Teams Trim Line Worker Relationship Specialty Start Date End Date Toyin Pollard FNP [address] [place] [address] PCP - General Family Medicine 01/11/21 Satish Brennan MD [address] [place] [address] Endocrinology 02/22/24 Jacob Morrow 5 [place] [address] Pulmonary Disease 02/22/24 Nicolasa Escobar MD [address] [place] [address] [place] [address] Neurology 02/22/24 Shen Davis MD [address] [place] [address] Nephrology 02/22/24 Ellyn Connolly Human Resources DesignateBit Sharpener Operator 08/17/23 [facility] 01/11/24 documented as of this encounter
--- OUTSIDE RECORDS SUMMARY | 2024-07-02 12:28 | XMS_ITS | Clinical Summary ---
Author Organization [facility] Address [address] [facility] [address] 0 [place] [address] Phone Care Team Providers Care R D Manager Name Role Phone Toyin Pollard LOUIE Primary Care Provider [phone] Social History Tobacco Use Types Packs/Day Years [...] age to complete this topic [place] Care Teams R D Manager Relationship Specialty Start Date End Date Toyin Pollard FNP [address] [place] [address] PCP - General 09/13/22
--- OUTSIDE RECORDS SUMMARY | 2024-07-02 12:28 | XMS_ITS | Encounter Summary ---
Author Organization [employer] Address 75 [facility] 7t [place] [address] Care Team Providers Care Cement Crusher Operator Name Role Phone Toyin Pollard LOUIE Primary Care Provider Satish Brennan MD Unavailable Jacob Morrow Unavailable [phone] Nicolasa Escobar MD Unavailable Shen Davis MD Unavailable [phone] Reason for Visit * Reason Comments Med Refill Encounter Details Date Type Department Care Team (Late st Contact Info) Description 08/21/2023 Refill [facility] MEDICINE 230 [place], [place] [phone] Agustina Toribio MD 230 [place], [place] [phone] Social History Tobacco Use Types Packs/Day Years [...] the past 12 months, has t he [employer], gas, oil or water company threatened to [...] [facility] 505 [place] [address] Toyin Pollard FNP 505 [place] [address] 09/23/2024 11:00 AM EDT Telemedicine [facility] MED & PEDS 505 [place] [address] 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, MINA 505 [place] [address] documented as of this encounter Goals Goal [...] documented as of this encounter Care Teams Cement Crusher Operator Relationship Specialty Start Date End Date Phalen, Toyin, REBAR BENDER 230 [place] [address] PCP - General Family Medicine 01/11/21 Satish Brennan MD [address] [place] [address] Endocrinology 02/22/24 Jacob Morrow [address] [place] [address] Pulmonary Disease 02/22/24 Nicolasa Escobar MD [address] [place] [address] [address] Neurology 02/22/24 Shen Davis MD [address] [place] [address] Nephrology 02/22/24 Ellyn Connolly Proof Machine Operator SupervisorAviation Consultant 08/17/23 [facility] 01/11/24 01/21/24 [facility] 01/11/24 documented as of this encounter
--- OUTSIDE RECORDS SUMMARY | 2024-07-02 12:28 | XMS_ITS | Encounter Summary ---
Author Organization [employer] Address 75 [facility] 7t [place] [address] Care Team Providers Care Employer Relations Representative Name Role Phone Toyin Pollard Primary Care Provider Satish Brennan MD Unavailable Jacob Morrow Unavailable [phone] Nicolasa Escobar MD Unavailable Shen Davis MD Unavailable [phone] Reason for Visit * Reason Onset Date Comments FYI 01/25/2024 Encounter Details Date Type Department Care Team (Late st Contact Info) Description 01/25/2024 Telephone [facility] MEDICINE 230 [place], [place] [phone] Toyin Pollard FNP 505 [place], [place] [phone] FYI Social History Tobacco Use Types Packs/Day [...] - 01/25/2024 1:45 PM EST TC from [facility] with [facility] wanted to report pt Discharged from [facility] on 01/22/24 . Had a Cast on right ankle and was removed due to numbness. Pt now has a boot on . documented in this encounter Plan of Treatment Upcoming Encounters Date Type Department Care Team (Late st Contact Info) Description 08/05/2024 10:30 AM EDT Office Visit [facility] MED & PEDS 505 [place] [address] Toyin Pollard FNP 505 [place] [address] 09/23/2024 11:00 AM EDT Telemedicine [facility] MED & PEDS 505 [place] [address] 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 RN 505 [place] [address] documented as of this encounter Goals Goal [...] documented as of this encounter Care Teams Employer Relations Representative Relationship Specialty Start Date End Date Toyin Pollard FNP 230 [place] [address] PCP - General Family Medicine 01/11/21 Satish Brennan MD [address] [place] [address] Endocrinology 02/22/24 Jacob Morrow 5 [place] [address] Pulmonary Disease 02/22/24 Nicolasa Escobar MD [address] [place] [address] Dr Kameron 140 [place] [address] Neurology 02/22/24 Shen Davis MD [address] [place] [address] Nephrology 02/22/24 Ellyn Connolly Alterations SupervisorExport Freight Specialist 08/17/23 [facility] 01/11/24 documented as of this encounter
--- OUTSIDE RECORDS SUMMARY | 2024-07-02 12:28 | XMS_ITS | Encounter Summary ---
Author Organization [employer] Address 75 [facility] 7t [place] [address] Care Team Providers Care Ladder Operator Name Role Phone Toyin Pollard Primary Care Provider Satish Brennan MD Unavailable [phone] Jacob Morrow Unavailable [phone] Nicolasa Escobar MD Unavailable Shen Davis MD Unavailable [phone] Reason for Visit * Reason Onset Date Comments PT1 11/02/2022 Encounter Details Date Type Department Care Team (Late st Contact Info) Description 11/02/2022 Telephone [facility] MEDICINE 230 [place], [place] [phone] oTyin Pollard FNP 505 [place], [place] [phone] PT1 Social History Tobacco Use Types Packs/Day [...] with better life requesting a PT1 Location: [facility] Specialty: Provider or clinic appts Date&Time:n/A Paper Products Inspector:N/a documented in this encounter Plan of Treatment Upcoming Encounters Date Type Department Care Team (Late st Contact Info) Description 08/05/2024 10:30 AM EDT Office Visit [facility] MED & PEDS 505 [place] [address] Toyin Pollard FNP 505 [place] [address] 09/23/2024 11:00 AM EDT Telemedicine [facility] MED & PEDS 505 [place] [address] 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, RN 505 [place] [address] documented as of this encounter Visit Diagnoses Not on filedocumented in this encounter Additional Health Concerns Assessment Noted Time PHQ-9 Depression Total Score: 0 09/29/19 23 2:03 PM EDT documented as of this encounter Care Teams Ladder Operator Relationship Specialty Start Date End Date Toyin Pollard FNP 230 [place] [address] PCP - General Family Medicine 01/11/21 Satish Brennan MD [address] [facility] [address] [place] [address] Endocrinology 02/22/24 Jacob Morrow 5 [place] [address] Pulmonary Disease 02/22/24 Nicolasa Escobar MD [address] [place] [address] [place] [address] Neurology 02/22/24 Shen Davis MD [address] [facility] [address] [place] [address] Nephrology 02/22/24 Ellyn Connolly DominatrixFence Post Driver 08/17/23 [facility] 01/11/24 01/21/24 [facility] 01/11/24 documented as of this encounter
--- OUTSIDE RECORDS SUMMARY | 2024-07-02 12:28 | XMS_ITS | Data Portability ---
Author Organization [facility], Main Office Address [address], [address] [place] [address] Care Team Providers Care Rotor Winder Name Role Phone [facility] OTHER [facility] Primary Care Provider Assessment No assessment recorded. Plan of Treatment [...] By Organization Details Last Modified Time 04/28/2021 [id number] CBCD, CMP in am -last Mg therapeutic on diuretics, no need to repeat Total time spent 25 minutes, >50% in [id number]-rd-ygdt counseling and coordination of care [email or web address] Not available 04/28/2021 14:36:22 05/12/2021 [id number] F/U Appointments : PCP TBD Total time spent on discharge: 40 minutes No scripts needed Not available 05/12/2021 16:53:45 Reason for Referral None Reported. Problems Name Problem SNOMED Code Status Onset Date Resolution Date Notes Provider Name and Address Organization Details Recorded Time Obstructive sleep apnea syndrome 36029900 Active 2019 Michelle Mountain Top [address], [address], [place], [address], [facility] 0 08:58:54 Acute hypercapnic respiratory failure 509712138 Active 2019 Michelle Mountain Top [address], [address], [place], [address], [facility] 0 08:59:55 Closed fracture of left ankle [id number] 9108 Active [address], [address], [place], [address], [facility] 0 09:03:18 COVID-19 735851522 Active [address], [address], [place], [address], [facility] - [facility] 0 09:03:58 Hyperkalemi a 97140703 Active [address], [address], [place], [address], [facility] 0 09:05:45 Syncope and collapse 509207342 Active [address], [address], [place], [address], [facility] 0 09:06:17 Hypothyroid ism 53601131 Active [address], [address], [place], [address], [facility] 0 09:07:04 Essential hypertensio n 59426313 Active [address], [address], [place], [address], [facility] 0 09:08:10 Mixed hyperlipide matilde 682799556 Active [address], [address], [place], [address], [facility] 0 09:08:25 Bipolar disorder 28887901 Active [address], [address], [place], [address], [facility] 0 09:09:02 Type 2 diabetes mellitus without complicatio n 273485279 Active [address], [address], [place], [address], [facility] 0 09:13:23 Asthma 672990959 Active [address], [address], [place], [address], [facility] 0 09:13:44 Type 2 diabetes mellitus 64129258 Active 2021 Becka Zafar MD [address], [address], [place], [address], [facility] 2 20:52:53 Morbid obesity 921118345 Active 2021 Becka Zafar MD [address], [address], [place], [address], [facility] - [facility] 2 20:53:24 Schizoaffec tive disorder, bipolar type 88510181 Active 2021 Becka Zafar MD [address], [address], [place], [address], [facility] 2 21:21:28 Tobacco dependence syndrome 82759439 Active 2021 Becka Zafar MD [address], [address], [place], [address], [facility] 2 21:22:00 Chronic obstructive pulmonary disease 68609332 Active 2021 Becka Zafar MD [address], [address], [place], [address], [facility] 2 21:25:49 Moderate persistent asthma 720833476 Active 2021 Becka Zafar MD [address], [address], [place], [address], [facility] 2 21:25:50 Depressive disorder 78706043 Active 2021 Becka Zafar MD [address], [address], [place], [address], [facility] 2 21:26:11 Chronic constipatio n 705207433 Active 2021 Becka Zafar MD [address], [address], [place], [address], [facility] 2 21:26:21 Vitamin D deficiency 39691106 Active 2021 Becka Zafar MD [address], [address], [place], [address], [facility] 2 21:27:35 Gastroesoph ageal reflux disease without esophagitis 919567138 Active 2021 Becka Zafar MD [address], [address], [place], [address], [facility] 2 21:28:05 Coronary arterioscle rosis 53532636 Active 2021 Becka Zafar MD [address], [address], [place], [address], [facility] 2 21:35:19 Allergic rhinitis 73958848 Active 2021 Becka Zafar MD [address], [address], [place], [address], [facility] 2 21:36:27 Edema of lower extremity 476073590 Active 2021 Becka Zafar MD [address], [place], [address], [facility] 2 21:36:46 Cholelithia sis without obstruction 83653651 Active 2021 Becka Zafar MD [address], [address], [place], [address], [facility] 2 21:43:26 Chronic back pain 622733635 Active 2021 Becka Zafar MD [address] [place] [address], [address], [place], [address], [facility] 2 21:44:01 Problem Notes None recorded. [...] Not available Not available Not available 03/07/2020 86219 9 RxNorm irrit abili ty Not Available Not Available Not Available latex environme nt,medica tion rash Not available Not available 03/07/2020 78233 91 RxNorm Not Available Not Available Not Available 05547 morphine medicatio n rash Not available Not available 04/25/2021 7052 RxNorm Not Available Not Available Not Available 61194 tetracycl ine medicatio n hives Not available Not available 04/25/2021 40727 RxNorm Not Available Not Available Not Available Medications Name Sig Start Date Stop Date Status Note LastModified by Organization Details LastModified Time Latuda 40 mg tablet active [facility] Latuda Not Available Not Available Not Available Vitals Date Recorded Body height Body mass index (BMI) Body weight Heart rate Respiratory rate Body temperature Oxygen saturation Oxygen saturation in Arterial blood by Pulse oximetry Systolic blood pressure Diastolic blood pressure Provider Name and Address Organization Details Last Updated DateTime 2 170.18 cm 59.2 kg/m2 801159. 63 g 65 /min 18 /min 97.2 [degF] 96 % 96 % 119 mm[Hg] 52 mm[Hg] Becka Zafar MD [address], [facility] [address], [address], [facility] 2 12:35:25 Date Recorded Body height Oxygen saturation Oxygen saturation in Arterial blood by Pulse oximetry Systolic blood pressure Diastolic blood pressure Provider Name and Address Organization Details Last Updated DateTime 2 170.18 cm 90 % 90 % 119 mm[Hg] 52 mm[Hg] SHAISTA LUJAN PA-C [address], [facility] [address], [place], [address], [facility] 2 13:53:10 Date Recorded Body height Oxygen saturation Oxygen saturation in Arterial blood by Pulse oximetry Systolic blood pressure Diastolic blood pressure Provider Name and Address Organization Details Last Updated DateTime 2 170.18 cm 91 % 91 % 119 mm[Hg] 52 mm[Hg] [facility] [address], [place], [address], [facility] 2 12:51:39 Date Recorded Body height Respiratory rate Body temperature Heart rate Oxygen saturation Oxygen saturation in Arterial blood by Pulse oximetry Systolic blood pressure Diastolic blood pressure Provider Name and Address Organization Details Last Updated DateTime 2 170.18 cm 18 /min 97.3 [degF] 65 /min 96 % 96 % 119 mm[Hg] 52 mm[Hg] Verenice Adrian wade [facility] 2 12:29:49 Date Recorded Body height Body mass index (BMI) Body weight Heart rate Respiratory rate Body temperature Oxygen saturation Oxygen saturation in Arterial blood by Pulse oximetry Systolic blood pressure Diastolic blood pressure Provider Name and Address Organization Details Last Updated DateTime 2 170.18 cm 59.5 kg/m2 905101. 1 g 71 /min 18 /min 97.1 [degF] 90 % 90 % 128 mm[Hg] 87 mm[Hg] SHAISTA LUJAN PA-C [address], [place], [address], [facility] 2 16:18:59 Social History Question Answer Notes LastModified by Organization Details LastModified Time Tobacco Smoking Status Current Every Day Smoker Michelle Jeanne [address] , [address], [place], [address], [facility] 03/07/2020 09:16:33 Do You Have An Advance Directive? Yes [email or web address] Information not available 04/25/2021 What Is Your Level Of Alcohol Consumption? None [email or web address] Information not available 04/25/2021 What Is Your Code Status? Full Code All Treatments [email or web address] Information not available 04/25/2021 Do You Or Have You Ever Used E-cigarettes Or Vape? Never Used Electronic Cigarettes Information not available 03/07/2020 Where Do You Live? [facility] Information not available 05/05/2021 Legal Guardian? No Information not available 05/05/2021 Do You Have A Medical Power Of Decision Support Analyst? Yes Information not available 03/07/2020 What Was The Date Of Your Most Recent Tobacco Screening? 04/23/2021 Information not available 04/25/2021 Do You Have An Out Of Hospital DNR? No [email or web address] Information not available 04/25/2021 Do You Or Have You Ever Used Smokeless Tobacco? Never Used Smokeless Tobacco Information not available 03/07/2020 How Much Tobacco Do You Smoke? 0.5 PPD [email or web address] Information not available 04/25/2021 Has Tobacco Cessation Counseling Been Provided? Yes [email or web address] Information not available 04/25/2021 On What Date Was Tobacco Cessation Counseling Provided? 04/23/2021 [email or web address] Information not available 04/25/2021 How Many Years Have You Smoked Tobacco? 30 Information not available 03/07/2020 Do You Or Have You Ever Used Any Other Forms Of Tobacco Or Nicotine? No [email or web address] Information not available 04/25/2021 Sex: Unknown Functional Status None recorded. Mental Status None recorded. Family History Relationship Description Onset Age of this Age Resolved Age Notes LastModified by Organization Details LastModified Time Sister Malignant tumor of ovary [email or web address] Not available 2021 19:38:51 Medical History No medical history recorded. Gynecological HistoryNo gynecological history recorded. Obstetrics History GPAL:G 0 P 0 0 0 0 Immunizations Vaccine Type Date Status Note Provider Nam e and Address Organization Details Recorded Time COVID-19, mRNA, LNP-S, PF, 30 mcg/0.3 mL dose 04/01/2020 completed SHAISTA LUJAN PA-C [address], [address], [address], [facility] 04/25/2021 19:22:57 COVID-19, mRNA, LNP-S, PF, 30 mcg/0.3 mL dose 11/20/2020 completed SHAISTA LUJAN PA-C [address], [address], [place], [address], [facility] 04/25/2021 19:33:52 COVID-19, mRNA, LNP-S, PF, 30 mcg/0.3 mL dose 02/24/2021 completed SHAISTA LUJAN PA-C [address], [address], [place], [address], [facility] 04/25/2021 19:34:02 Past Encounters Encounter ID Performer Location Encounter Start Date Encounter Closed Date Diagnosis/Indication Diagnosis SNOMED-CT Code Diagnosis ICD10 Code Diagnosis Note [id number] Michelle Keenanette [facility] on [address] [place] [address] 03/07/2020 08:38:10 03/27/2020 08:36:17 COVID-19 262263949 U07.1 +02/27/20c ompleted course of remdesivir and decadronf/ u cards outpatient for ECHO after isolationm onitor resp status Acute hype rcapnic respiratory failure 541926910 J96.02 see HPIseconda ry to covid. pulmonary edemadiure sed with lV lasix, Tx above for covid txCPAP Essential hypertension 89703874 I10 atenolol 50 mg qd, with hold parameters lasix 40 mg qdlisinopr il 10 mg qdmonitor BPs Hypothyroidism 81108838 E03.9 on replacemen t. monitor Bipolar disorder 1425658 4 F31.9 amitriptyl ine 10 mg qdbenztrop ine 2 mg BIDdepakot e 500 mg in am 1000 mg at HSescitalo pram 10 mg qdhydroxyz ine 50 mg tid prnprazosi n 4 mg at HSseroquel 300 mg at HStrazodon e 1-2 tabs at HS? med management contributi ng to syncopal episodesps ych eval prn Tobacco user 916725815 Z 72.0 90 pack year Hx. encourage cessation. monitor Obstructiv e sleep apnea syndrome 46235960 G47.33 has CPAPmonito r Hyperkalemia 80332321 E8 7.5 resolved in acute caremonito r labs Closed fra cture of left ankle 4404924710 9384538 S82.892D see HPIortho rec's for non surgical management repeat xray in 1 weekf/o ortho outpatient LLE NWBPT OT to eval and treatoxyco done and APAP prn for pain.monit or Syncope and collapse 309 798039 R55 see HPIunclear etiology? med management monitor for recurrence Type 2 johnny betes mellitus without complication 966555309 E11.9 glimepirid e 1 mg in am 4 mg at dinnerglar gine 20 U at HSmonitor accuchecks TID Mixed hyperlipidemia 267 554859 E78.2 on statin. monitor Asthma 885841936 J45.90 9 symbicort dailyspiri va qdsingulai r qd flonase qdmonitor resp status [id number] Emely Loyola MD [facility] on [address] [place] [address] 03/11/2020 06:27:35 03/27/2020 08:52:50 Asthma 396818373 J45.30 albuterol HFA 2 puffs a4h prnSymbico rt 160-4.5: 2 puffs bidmontelu kast 10 mg dailytiotr opium 2 puffs dailywill monitor Closed fra cture of left ankle 6147643800 2260650 S82.892D oxycodone 5 mg q4h prnPT/OT fu ortho COVID-19 250780961 U07.1 recovering after treatment with remdesivir and dexamethas onewill continue to monitor closely Essential hypertension 26690109 I10 furosemide 40 mg dailylisin opril 10 mg dailyateno lol 50 mg dailywill monitor Hypothyroidism 74009343 E03.8 levothyrox ine 137 mcg dailywill monitor Mixed hyperlipidemia 267 548023 E78.2 atorvastat in 20 mg dailywill monitor Type 2 johnny betes mellitus without complication 828488200 E11.9 Lantus 20U qhsglimepi ride 1 mg in morning and 4 mg in eveningwil l monitor Schizoaffe ctive disorder 30857535 F25.8 benztropin e 2 mg bidquetiap ine 300 mg at hs prazosin 4 mg at hsdivalpro ex 500 mg in afternoon and 1000 mg in eveningLat uda 50 mg dailysee meds for mixed anxiety and depressive disorder Mixed anxi ety and depressive disorder 370638058 F41.8 citalopram 10 mg dailytrazo done 50 mg at hshydroxyz ine 50 mg q8h prnamitrip tyline 10 mg at hssee meds for schizoaffe ctive disorderwi monitor [id number] Kae Combs [facility] on [address] [place] [address] 03/16/2020 16:00:58 03/26/2020 16:02:23 Intertrigo 13323521 L30.4 Add Nystatin power BID for 10 days. Monitor to resolution Closed fra cture of left ankle 8877863079 3727136 S82.892D oxycodone 5 mg q4h prncont PT/OT fu ortho needs to be scheduled COVID-19 771768220 U07.1 recovering after treatment with remdesivir and dexamethas oneresp status stable-not requiring Y0kbvcjjl recovered Essential hypertension 75821023 I10 furosemide 40 mg dailylisin opril 10 mg dailyateno lol 50 mg dailyBP stable, monitor Type 2 johnny betes mellitus without complication 282278823 E11.9 Lantus 20U qhsglimepi ride 1 mg in morning and 4 mg in eveningAdd blood sugars BID [id number] Kae Combs [facility] on [address] [place] [address] 03/23/2020 13:03:40 03/27/2020 09:40:26 Closed fracture of left ankle 4478889083 1689674 S82.892D Remains NWB on LLEcont PT/OT Has ortho f/u scheduled 04/01Decrea se oxycodone 5 mg Q6h PRN COVID-19 579257821 U07.1 recovering after treatment with remdesivir and dexamethas oneresp status stable-not requiring N0ljyqbaq recovered Essential hypertension 72442090 I10 furosemide 40 mg dailylisin opril 10 mg dailyateno lol 50 mg dailyBP stable, monitor Type 2 johnny betes mellitus without complication 402266632 E11.9 Lantus 20U qhsglimepi ride 1 mg in morning and 4 mg in eveningBlo od sugars well controlled Monitor [id number] Kae Combs [facility] on [address] [place] [address] 03/24/2020 14:32:40 03/27/2020 11:02:54 Edema of lower extremity 172097434 R60.0 Increase lasix 40 mg dailyMonit or Loose stool 801533549 R1 9.5 Obtain stool for c. diffIf neg, can add imodium PRNMonitor [id number] Kae Combs [facility] on [address] [place] [address] 04/03/2020 11:00:15 04/06/2020 15:10:08 Closed fracture of left ankle 5225807007 7128484 S82.892D Remains NWB on LLEHas ortho f/u scheduled 2/3Decreas e oxycodone 5 mg Q8h PRN x 3 days then Q12h PRN COVID-19 943121243 U07.1 recovering after treatment with remdesivir and dexamethas oneresp status stable-not requiring U4uoontsb recovered Essential hypertension 30615394 I10 furosemide 40 mg dailylisin opril 10 mg dailyateno lol 50 mg dailyBP stable, monitor Type 2 johnny betes mellitus without complication 548249107 E11.9 Lantus 20 U qhsglimepi ride 1 mg in morning and 4 mg in eveningBlo od sugars well controlled Monitor Edema of l ower extremity 941603312 R60.0 Lasix 40 mg dailyAdd compressio n stocking to RLE [id number] Kae Combs [facility] on [address] [place] [address] 04/07/2020 14:06:25 04/10/2020 13:44:07 Closed fracture of left ankle 8095279601 4214210 S82.892D Remains NWB on LLEHas ortho f/u scheduled 2/3Oxycodo ne Q12h PRN COVID-19 510021492 U07.1 recovering after treatment with remdesivir and dexamethas oneresp status stable-not requiring N9mrqkpyo recovered Type 2 johnny betes mellitus without complication 773064568 E11.9 Lantus 20 U qhsglimepi ride 1 mg in morning and 4 mg in eveningBlo od sugars well controlled Monitor Edema of l ower extremity 819030236 R60.0 Lasix 40 mg dailyCompr ession stocking to RLE [id number] TSACY SALEH [facility] on [address] [place] [address] 04/10/2020 12:43:03 04/13/2020 16:35:27 Closed fracture of left ankle 8806110166 2171720 S82.892D Remains NWB on LLEHas ortho f/u scheduled 2/3Oxycodo ne Q12h PRN- DO NOT SEND [facility] HOME, D/C ON DISCHARGE COVID-19 900852243 U07.1 recovering after treatment with remdesivir and dexamethas oneresp status stable-not requiring W5jmrnaro recovered Type 2 johnny betes mellitus without complication 269673661 E11.9 Lantus 20 U qhsglimepi ride 1 mg in morning and 4 mg in eveningBlo od sugars well controlled Edema of l ower extremity 411038805 R60.0 Lasix 40 mg dailyCompr ession stocking to RLE Asthma 549589343 J45.30 albuterol HFA 2 puffs a4h prnSymbico rt 160-4.5: 2 puffs bidmontelu kast 10 mg dailytiotr opium 2 puffs daily Essential hypertension 43209805 I10 furosemide 40 mg dailylisin opril 10 mg dailyateno lol 50 mg daily Hypothyroidism 64098899 E03.8 levothyrox ine 137 mcg dailY Mixed hyperlipidemia 267 977258 E78.2 atorvastat in 20 mg daily Schizoaffe ctive disorder 65244790 F25.8 benztropin e 2 mg bidquetiap ine 300 mg at hs prazosin 4 mg at hsdivalpro ex 500 mg in afternoon and 1000 mg in eveningLat uda 50 mg dailysee meds for mixed anxiety and depressive disorder Mixed anxi ety and depressive disorder 161415338 F41.8 citalopram 10 mg dailytrazo done 50 mg at hshydroxyz ine 50 mg q8h prnamitrip tyline 10 mg at hssee meds for schizoaffe ctive disorder [id number] SHAISTA LUJAN PA-C [facility] on [address] [place] [address] 04/23/2021 16:28:13 04/27/2021 13:13:44 Recurrent falls 594762492 R29.6 PT/OT Type 2 johnny betes mellitus without complication 009961243 E11.9 Monitor sugars and adjust meds prnOn EMILIE-I for renal protection Morbid obesity 671954523 E66.01 Outpatient f/u with PCP Essential hypertension 11858390 I10 Monitor BPs and adjust meds prn Hypothyroidism 57379196 E03.9 Consider TSH Obstructiv e sleep apnea syndrome 53355364 G47.33 Needs CPAP Migraine 47655031 G43.90 9 f/u prn Schizoaffe ctive disorder, bipolar type 52830844 F25.0 Consider psych consult Tobacco de pendence syndrome 22316542 F17.200 Counseled 5 minutes on the importance of cessation; not interested in quitting Chronic ob structive pulmonary disease 66635000 J44.9 inhalersf/ u prn Depressive disorder 3548 9007 F32.A No SI/HI/AH/V H Chronic constipation 236 780510 K59.09 scheduled and prn bowel medsf/u prn Vitamin D deficiency 347 41011 E55.9 RepletingO utpatient f/u prn Insomnia c o-occurrent and due to medical condition 1062531192 9105 G47.01 Melatonin Gastroesop hageal reflux disease without esophagitis 757087558 K21.9 Not on medsMonito r and f/u prn Liver enzy mes level above reference range 910056549 R74.01 Normal LFTs on recent labs Coronary arteriosclerosis 76546278 I25.10 Statinclar jonas of supposed to be on ASANot on B-delia Moderate p ersistent asthma 429932045 J45.40 as above Allergic rhinitis 198993 04 J30.9 f/u prn Edema of l ower extremity 415818996 R60.0 f/u prn Advance care planning 71 1744028 Z71.89 Met with patient, who is her own decision-messi wilson, in her room. Reviewed each section of the MOLST and answered questions to her satisfacti on. Form completed, signed, and orders written to reflect the following: Full code with all interventi ons. Total time spent 18 minutes [id number] [facility] on [address] [place] [address] 04/26/2021 14:30:31 05/13/2021 12:50:11 Recurrent falls 571038898 R29.6 PT/OT eval and txsafety precaution s Type 2 johnny betes mellitus without complication 700826966 E11.9 lispro sliding scalelantu s QHSmonitor for s/s of hyper/hypo glycemiaOn EMILIE-I for renal protection Morbid obesity 882095531 E66.01 Outpatient f/u with PCPencoura ge weight loss Essential hypertension 51275772 I10 atenolol 50mg dailylisin opril 10mg qhsMonitor BPs and adjust meds prn Hypothyroidism 62334828 E03.9 monitor TSH prnlevothy roxine 137mcg daily Obstructiv e sleep apnea syndrome 07918246 G47.33 CPAP qhsmonitor sleep pattern Migraine 63273503 G43.90 9 monitor for s/sAPAP prn Schizoaffe ctive disorder, bipolar type 33666992 F25.0 amytripyli ne 10mg qhscitalop cammie 10mg dailyprazo sin 5mg qhsmonitor mood and behaviorps [facility] prn Tobacco de pendence syndrome 12241334 F17.200 encourage cessation Chronic ob structive pulmonary disease 54998829 J44.9 inhalersf/ u prn Moderate p ersistent asthma 183737380 J45.40 monitor resp statusmoni tor labs prn Depressive disorder 3548 9007 F32.A amytripyli ne 10mg qhscitalop cammie 10mg dailyprazo sin 5mg qhsmonitor mood and behaviorps [facility] prn Chronic constipation 236 451300 K59.09 has been experienci ng bouts of diarrheamo nitor bowel pattern Vitamin D deficiency 347 76721 E55.9 monitor levels prn Insomnia c o-occurrent and due to medical condition 5990159812 9105 G47.01 Melatoninm onitor sleep pattern Gastroesop hageal reflux disease without esophagitis 086301781 K21.9 Not on medsmonito r for GI s/s Liver enzy mes level above reference range 623455932 R74.01 Normal LFTs on recent labsmonito r labs prn Coronary arteriosclerosis 46467685 I25.10 atorvastat in 20mg qhsclarify of supposed to be on ASA - ? Allergic rhinitis 310005 04 J30.9 f/u prnmonitor for s/s Edema of l ower extremity 491196972 R60.0 follow weights [id number] Becka Zafar MD [facility] on [address] [place] [address] 04/27/2021 12:32:27 05/13/2021 13:08:56 Recurrent falls 185930287 R29.6 Very deconditio deepika.Needs PT/OT for strengthen ing, balance, gait training, safety and function.C ontinue fall precaution s.Monitor for safety. Morbid obesity 824499808 E66.01 Z68.43 As above. Essential hypertension 03225437 I10 Good control on lasix 40 mg qd, prazosin 5 mg qd and lisinopril 10 mg qd.Monitor BP and labs. Hypothyroidism 17330479 E03.8 Continue levothyrox ine 137 mcg qd.Monitor TSH yearly. Obstructiv e sleep apnea syndrome 92284712 G47.33 Needs CPAP, will see if we can arrange Migraine 21805987 G43.80 9 No current sxs.Amitri pyline and depakote can both be used for prophylaxi s for this, but is primarily on them for mood stabilizer s.Monitor for sxs. Schizoaffe ctive disorder, bipolar type 48221730 F25.0 Continue citalopram 10 mg qd, amitriptyl ine 10 mg qhs, Seroquel 400 mg qhs, Melatonin 5 mg qhs,Latuda 60 mg qam, Depakote 500 mg po q 12 pm and 1000 mg qhs, and Cogentin 1 mg BID.Monito r mood and behaviors. Psych consult Tobacco de pendence syndrome 01193459 F17.210 Not interested in quittingCo ntinue to encourage cessation. Chronic ob structive pulmonary disease 86441666 J43.8 At baseline.C ontinue Singulair 10 mg qd, Symbicort 160-4.5 mcg 2 puffs BID, Spiriva 18 mcg qd and albuterol MDI 2 puffs q 4 hrs prn.Montio r resp. status. Moderate p ersistent asthma [id number] J45.40 as above. Depressive disorder 3548 9007 F33.1 As above. Chronic constipation 236 838255 K59.09 Continue scheduled and prn bowel medsMonito r bowel function. Vitamin D deficiency 347 67674 E56.8 Continue Vit D 2000 IU qd.Monitor levels. Gastroesop hageal reflux disease without esophagitis 983045901 K21.9 No current sxs on no medsMonito r and f/u prn Coronary arteriosclerosis 17823184 I25.10 Continue meds as above and atorvastat in 20 mg qd.Conside r addition of cardioprot ective meds as above and also ASA and beta delia.Mo nitor for sxs.F/U with cardio as planned. Allergic rhinitis 526961 04 J30.89 Continue singulair as above.Meme tor sxs Edema of l ower extremity 781957210 R60.0 Continue lasix and lisinopril as above.Meme tor Type 2 johnny betes mellitus 49342523 E11.65 Will restart humulin SSI, will increase dose to compare more closely with previous humalog dose, but not restarting premeal humalog yet.Increa se lantus from 40U to 52U.Contin ue glimepirid e 4 mg qd.Conside r adding GLP-1 or SGLT-2 both for better blood sugar control and cardioprot ective effect.Mon itor accuchecks QIDEncoura ge healthy eating and physical activity. Chronic back pain 901201 002 M54.59 Continue APAP and tramadol as above.F/U with pain clinic as planned.Co ntinue to encourage wt. loss and physical activity. Cholelithi asis without obstruction 68001887 K80.20 Not a candidate for elective surgery per surgeon.Co ntinue tramadol 50 mg BID prn and APAP 650 mg q 6 hrs prn.Monito r sxs. [id number] SHAISTA LUJAN PA-C [facility] on [address] [place] [address] 52190-023 3 04/28/2021 13:49:24 05/13/2021 14:05:59 Acute urinary tract infection [id number] N39.0 U/A not overly impressive Will decrease [...] prn Uncontroll ed type 2 diabetes mellitus 140507930 E11.65 Sugars globally elevatedAd d hs fingerstic k with correction al insulinInc rease Lantus from 40 ux qhs to 52 ux qhs (based on total coverage 24 ux x 24 hours at 50%)-given body habitus, might benefit from divided dosingMoni tor sugars and adjust meds prnOn EMILIE-I for renal protection Diarrhea 93118782 R19.7 Hold scheduled bowel meds for loose stoolsCola ce changed from scheduled to prn yesterdayd /c Imodium after 1 week [id number] SHAISTA LUJAN PA-C [facility] on [address] [place] [address] 18645-591 3 04/29/2021 12:50:48 05/13/2021 14:30:13 Acute urinary tract infection 991664903 N39.0 Resistant to BactrimLik ellie colonized with E. coli rather than true UTI; however, will finish treating-d /c Bactrim-st art macrobid 100 mg po bid x 5 days for simple UTI-benefi ts of abx outweigh risks of non-treatm ent in this patient-no need to extend probiotic since low-risk c-diff with nitrofuran toinMonito r and f/u prn Uncontroll ed type 2 diabetes mellitus 161417300 E11.65 Lantus increased yesterdayM onitor sugars and adjust meds prnOn EMILIE-I for renal protection [id number] Verenice Cid [facility] on [address] [place] [address] 34075-633 3 05/05/2021 12:24:28 05/14/2021 09:59:59 Anxiety 25917187 F41.9 pt reporting anxiety and states she has order for prn seroquel at home; found in home medsholdin g off on seroquel now as she had frequent falls at homeadding hydroxyzin e 25mg po bid prnmonitor for effectmoni tor mood and behaviorps [facility] [id number] SHAISTA LUJAN PA-C [facility] on [address] [place] [address] 41103-987 3 05/12/2021 16:16:13 05/14/2021 11:26:53 Uncontrolled type 2 diabetes mellitus 041857898 E11.65 Consider split-dose basal insulinMon itor sugars and adjust meds prnOn EMILIE-I for renal protection Recurrent falls 57726088 2 R29.6 PT/OT Chronic ob structive pulmonary disease 70075233 J44.9 continue inhalersf/ u prn Health Concerns Section Related Observation LastModified by Organization Detai ls LastModified Time None Recorded Concern Status LastModified by Organization Details LastModified Time None Recorded Advance Directives Directive Y: Payers Encounter Date Sequence Insurance Name Policy Number Policy Weston Covered Member ID Weston Member ID Guarantor Name 04/27/2021 1 [place] [facility] Elle Lopez [id number] Elle Lopez 04/28/2021 1 [place] [facility] [id number] Elle Lopez 04/29/2021 1 [place] [facility] [id number] Elle Lopez 05/05/2021 1 [place] [facility] Lopez [id number] Elle Lopez 05/12/2021 1 [place] [facility] Elle Lopez [id number] Elle Lopez Notes Date Note Type Note [...] remdesivir and dexamethasone. She presented to the [facility] ED on 04/22 due to frequent falls. [...] knee pain, has had steroid injections through [facility] pain [facility]. Most recently SI joint injection in 01/2021.Since here she has been participating with rehab, but is limited by pain and fatigue.Her PMH includes HTN, uncontrolled AODM (LuM5X48.6), CHF, s/p COVID 02/2020, asthma, bipolar disorder, schizoaffective disorder, anxiety, PTSD, unsteady gait, migraines, ADHD, morbid obesity, MORGAN on CPAP, hypothyroidism, DM, hypertension, chronic back pain-s/p SI joint injections, with cholelithiasis-not surgical candidate per surgeon-being txed with tramadol, and frequent falls. Becka Zafar MD [address] [place] [address], [address], [place], [address], [employer] [facility] 05/05/2021 21:44:55 04/28/2021 text/html Pt seen for [...] pain. No f/c/s. SHAISTA LUJAN PA-C [address] [facility], [address], [place], [address], [employer] [facility] 04/28/2021 14:37:05 04/29/2021 text/html Pt seen for acut e rounding visit today for UTI. Pt with dysuria earlier this week at which time she was commenced on Bactrim by . Diabetes meds adjusted yesterday (see note for details.) Pt denies dysuria, hematuria, back/abd/flank pain, f/c/s. SHAISTA LUJAN PA-C [address] [facility], [address], [place], [address], [facility] 04/29/2021 13:36:17 05/05/2021 text/html Elle is juan luisin linden seen for an acute rounding visit today. Elle is stating that she is experiencing anxiety. She reports having seroquel prn at home but not here. Will trial hydroyzine 25mg bid prn and monitor for effect. Would hold off for now on adding prn seroquel as she was with frequent falls at home. Verenice santiago [facility] 05/05/2021 12:35:21 05/12/2021 text/html Pt seen today [...] PTSD; Umbilical hernia; Hx patella fx; Hx ID; Hx tubal ligation; Hx knee surgery; Hx [...] edema; Hx UTI Hospital Patient Received From: [facility] ED Attending MD: Dr. Cooper Goodson/Shaista Lujan PA-C Medications Started at [facility]: Nystatin powder; Bactrim; Imodium; Diflucan; Probiotic; Macrobid; Hydroxyzine Medications Discontinued at [facility] & Why: Imodium (non-use); Bactrim (Ucx resistant); [...] am by [employer]-registered Shaista Lujan PA-C NPI# [id number]; Last MD visit 04/27/21; [facility] for medication management and reconciliation and teaching; [...] liquids Activity: wheelchair SHAISTA LUJAN PA-C [address] [facility], [address], [place], [address], [facility] 05/12/2021 16:58:12 OBGyn Episode No OBEpisode recorded.
--- OUTSIDE RECORDS SUMMARY | 2024-07-02 12:28 | XMS_ITS | Encounter Summary ---
Author Organization [employer] Address [address] [facility] 7t [place] [address] Care Team Providers Care Senior Policy Associate Name Role Phone Toyin Pollard Primary Care Provider Satish Brennan MD Unavailable Jacob Morrow Unavailable [phone] Nicolasa Escobar MD Unavailable Shen Davis MD Unavailable [phone] Reason for Visit * Reason Onset Date Comments PT1 08/19/2022 Encounter Details Date Type Department Care Team (Late st Contact Info) Description 08/19/2022 Telephone [facility] [address] [place] [address] Toyin Pollard FNP 505 [place], [place] [phone] PT1 Social History Tobacco Use Types Packs/Day [...] has correct home address but transportation doesn't. Diplomatic Officer is resubmitting PT1. PT1 Date: Time: address:[address] [facility] specialty:PCP # visits: head start teacher: yes Wheelchair: yes PT1 Date: Time: address: [address] [facility] specialty: Manager New Product # visits: head start teacher:yes Wheelchair:yes PT1 Date: Time: address: [address] [facility] specialty: Records Management Specialist/ Diabetes # visits: head start teacher:yes Wheelchair:yes PT1 Date: Time: address:[address] [facility] specialty: Speech and hearing # visits: head start teacher:yes Wheelchair:yes documented in this encounter Plan of Treatment Upcoming Encounters Date Type Department Care Team (Late st Contact Info) Description 08/05/2024 10:30 AM EDT Office Visit [facility] 505 [place] [address] Toyin Pollard FNP 505 [place] [address] 09/23/2024 11:00 AM EDT Telemedicine [facility] 505 [place] [address] 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, RN 505 [place] [address] documented as of this encounter Visit Diagnoses Not on filedocumented in this encounter Care Teams Senior Policy Associate Relationship Specialty Start Date End Date Toyin Pollard FNP 230 [place] [address] PCP - General Family Medicine 01/11/21 Satish Brennan MD [address] [address] Endocrinology 02/22/24 Jacob Morrow [facility] [place] [address] Pulmonary Disease 02/22/24 Nicolasa Escobar MD [address] [place] [address] [address] Neurology 02/22/24 Shen Davis MD [address] [place] [address] Nephrology 02/22/24 Ellyn Connolly Print FinisherOperating Cost Clerk 08/17/23 [facility] 01/11/24 01/21/24 [facility] 01/11/24 documented as of this encounter
--- OUTSIDE RECORDS SUMMARY | 2024-07-02 12:28 | XMS_ITS | Encounter Summary ---
Author Organization [employer] Address [address] [facility] 7t [place] [address] Care Team Providers Care Veneer Stacker Name Role Phone JuddToyin barry LOUIE Primary Care Provider [phone] Satish Brennan MD Unavailable Jacob Morrow Unavailable [phone] Nicolasa Escobar MD Unavailable Shen Davis MD Unavailable [phone] Encounter Details Date Type Department Care Team (Late st Contact Info) Description 07/20/2023 Orders Only [facility] 230 [place], [place] [phone] Agustina Toribio MD 230 [place], [place] [phone] Hyperkalemia (Primary Dx) Social History Tobacco Use [...] [facility] 505 [place] [address] Toyin Pollard FNP 505 [place] [address] 09/23/2024 11:00 AM EDT Telemedicine [facility] 505 [place] [address] 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, RN 505 [place] [address] Scheduled Orders Name Type Priority Associated Diagnoses [...] documented as of this encounter Care Teams Veneer Stacker Relationship Specialty Start Date End Date Toyin Pollard FNP 230 [place] [address] PCP - General Family Medicine 01/11/21 Satish Brennan MD [address] [place] [address] Endocrinology 02/22/24 Jacob Morrow 5 [place] [address] Pulmonary Disease 02/22/24 Nicolasa Escobar MD [address] [place] [address] [place] [address] Neurology 02/22/24 Shen Davis MD [address] [place] [address] Nephrology 02/22/24 Ellyn Connolly Airline DispatcherPhysical Therapist Clinic Director 08/17/23 [facility] 01/11/24 01/21/24 [facility] 01/11/24 documented as of this encounter
--- OUTSIDE RECORDS SUMMARY | 2024-07-02 12:28 | XMS_ITS | Encounter Summary ---
Author Organization [email or web address] Address [address] [facility] 7t [place] [address] Care Team Providers Care Hospital Pharmacy Technician Name Role Phone Toyin Pollard Primary Care Provider Satish Brennan MD Unavailable [phone] Jacob Morrow Unavailable [phone] Nicolasa Escobar MD Unavailable [phone] Shen Davis MD Unavailable [phone] Reason for Visit * Reason Comments Med Refill Encounter Details Date Type Department Care Team ([facility] st Contact Info) Description 01/24/2023 Refill [facility] 505 [place], [place] [phone] Toyin Pollard FNP 505 [place], [place] [phone] Pain Social History Tobacco Use Types Packs/Day [...] [facility] 505 [place] [address] Toyin Pollard FNP 505 [place] [address] 09/23/2024 11:00 AM EDT Telemedicine [facility] 505 [place] [address] 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, MINA 505 [place] [address] documented as of this encounter Goals Goal [...] documented as of this encounter Care Teams Hospital Pharmacy Technician Relationship Specialty Start Date End Date Toyin Pollard FNP [address] [place] [address] PCP - General Family Medicine 01/11/21 Satish Brennan MD [address] [place] [address] Endocrinology 02/22/24 Jacob Morrow [address] [facility] [place] [address] Pulmonary Disease 02/22/24 Nicolasa Escobar MD [address] [place] [address] [address] Neurology 02/22/24 Shen Davis MD [address] [place] [address] Nephrology 02/22/24 Ellyn Connolly Cargo WorkerInvestigation Specialist 08/17/23 [facility] 01/11/24 01/21/24 [facility] 01/11/24 documented as of this encounter
--- OUTSIDE RECORDS SUMMARY | 2024-07-02 12:28 | XMS_ITS | Encounter Summary ---
Author Organization [employer] Address [address] [facility] 7t [place] [address] Care Team Providers Care Wire Hanger Name Role Phone Toyin Pollard Primary Care Provider [phone] Satish Brennan MD Unavailable Jacob Morrow Unavailable [phone] Nicolasa Escobar MD Unavailable Shen Davis MD Unavailable [phone] Reason for Visit * Reason Onset Date Comments Referral 01/08/2024 Encounter Details Date Type Department Care Team ([facility] st Contact Info) Description 01/08/2024 Telephone [facility] 230 [place] [address] Toyin Pollard FNP 505 [place], [place] [phone] Referral Social History Tobacco Use Types Packs/Day [...] - 01/08/2024 2:01 PM EDT Tc from [facility] Ejnnifer from [facility] . Amanda indicates they will process the referral for mpt therapy. documented in this encounter Plan of Treatment Upcoming Encounters Date Type Department Care Team ([facility] st Contact Info) Description 08/05/2024 10:30 AM EDT Office Visit [facility] 505 [place] [address] Toyin Pollard FNP 505 [place] [address] 09/23/2024 11:00 AM EDT Telemedicine [facility] 505 [place] [address] 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, RN 505 [place] [address] documented as of this encounter Goals Goal [...] documented as of this encounter Care Teams Wire Hanger Relationship Specialty Start Date End Date Toyin Pollard FNP [address] [place] [address] PCP - General Family Medicine 01/11/21 Satish Brennan MD [address] [facility] 104 [place] [address] Endocrinology 02/22/24 Jacob Morrow 5 [place] [address] Pulmonary Disease 02/22/24 Nicolasa Escobar MD [address] [place] [address] Neurology 02/22/24 Shen Davis MD [address] [facility] 302 [place] [address] Nephrology 02/22/24 Ellyn Connolly Counter Top MakerManager Control 08/17/23 [facility] 01/11/24 01/21/24 [facility] 01/11/24 documented as of this encounter
--- OUTSIDE RECORDS SUMMARY | 2024-07-02 12:28 | XMS_ITS | Encounter Summary ---
Author Organization [employer] Address [address] [place] [address] 7t [place] [address] Care Team Providers Care Tipping Machine Operator Automatic Name Role Phone Toyin Pollard Primary Care Provider Satish Brennan MD Unavailable [phone] Jacob Morrow Unavailable [phone] Nicolasa Escobar MD Unavailable Shen Davis MD Unavailable [phone] Encounter Details Date Type Department Care Team (Late st Contact Info) Description 09/12/2022 Orders Only [facility] 230 [place] [address] Patrica Grimaldo LPN Social History Tobacco Use [...] Description 08/05/2024 10:30 AM EDT Office Visit [facility] 505 [place] [address] Toyin Pollard FNP 505 [place] [address] 09/23/2024 11:00 AM EDT Telemedicine [facility] MED & PEDS [address] [place] [address] Margrte Hector, RN [address] [place] [address] documented as of this encounter Visit Diagnoses Not on filedocumented in this encounter Care Teams Tipping Machine Operator Automatic Relationship Specialty Start Date End Date Toyin Pollard FNP 230 [place] [address] PCP - General Family Medicine 01/11/21 Satish Brennan MD [address] [place] [address] Endocrinology 02/22/24 Jacob Morrow 5 [place] [address] Pulmonary Disease 02/22/24 Nicolasa Escobar MD [address] [place] [address] Dr [facility] 140 [place] [address] Neurology 02/22/24 Shen Davis MD [address] [place] [address] Nephrology 02/22/24 Ellyn Connolly Boilermaker FitterPuppet Master 08/17/23 [facility] 01/11/24 01/21/24 [facility] 01/11/24 documented as of this encounter
--- OUTSIDE RECORDS SUMMARY | 2024-07-02 12:28 | XMS_ITS | Encounter Summary ---
Author Organization [employer] Address [address] [facility] 7t [place] [address] Care Team Providers Care Senior Product Designer Name Role Phone JuddToyin barry LOUIE Primary Care Provider [phone] Satish Brennan MD Unavailable [phone] Jacob Morrow Unavailable [phone] Nicolasa Escobar MD Unavailable Shen Davis MD Unavailable [phone] Reason for Visit * Reason Onset Date Comments Appointment 12/27/2022 Encounter Details Date Type Department Care Team ([facility] st Contact Info) Description 12/27/2022 Telephone [facility] 230 [place], [place] [phone] Nestor Varela DDS 230 [place], [place] [phone] Appointment Social History Tobacco Use Types Packs/Day [...] 08/05/2024 10:30 AM EDT Office Visit [facility] 505 [place] [address] Toyin Pollard FNP 505 [place] [address] 09/23/2024 11:00 AM EDT Telemedicine [facility] 505 [place] [address] 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 RN 505 [place] [address] documented as of this encounter Visit Diagnoses Not on filedocumented in this encounter Additional Health Concerns Assessment Noted Time PHQ-9 Depression Total Score: 0 09/29/19 23 2:03 PM EDT documented as of this encounter Care Teams Senior Product Designer Relationship Specialty Start Date End Date Toyin Pollard FNP 230 [place] [address] PCP - General Family Medicine 01/11/21 Satish Brennan MD [address] [place] [address] Endocrinology 02/22/24 Jacob Morrow 5 [place] [address] Pulmonary Disease 02/22/24 Nicolasa Escobar MD [address] [place] [address] [address] Neurology 02/22/24 Shen Davis MD [address] [place] [address] Nephrology 02/22/24 Ellyn Connolly Engineering Team SupervisorBandoleer Packer 08/17/23 [facility] 01/11/24 01/21/24 [facility] 01/11/24 documented as of this encounter
--- OUTSIDE RECORDS SUMMARY | 2024-07-02 12:28 | XMS_ITS | Encounter Summary ---
Author Organization [employer] Address [address] [facility] 7t [place] [address] Care Team Providers Care Liquor Maker Name Role Phone Toyin Pollard Primary Care Provider Satish Brennan MD Unavailable Jacob Morrow Unavailable [phone] Nicolasa Escobar MD Unavailable Shen Davis MD Unavailable [phone] Reason for Visit * Reason Onset Date Comments Durable Medical Equipment 07/06/2022 Encounter Details Date Type Department Care Team (Late st Contact Info) Description 07/06/2022 Telephone [facility] 230 [place] [address] Toyin Pollard FNP 505 [place], [place] [phone] Durable Medical Equipment Social History Tobacco Use [...] 10:30 AM EDT Office Visit [facility] 505 [place] [address] Toyin Pollard FNP 505 [place] [address] 09/23/2024 11:00 AM EDT Telemedicine [facility] 505 [place] [address] 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 RN 505 [place] [address] documented as of this encounter Visit Diagnoses Not on filedocumented in this encounter Care Teams Liquor Maker Relationship Specialty Start Date End Date Toyin Pollard FNP 230 [place] [address] PCP - General Family Medicine 01/11/21 Satish Brennan MD [address] [facility] 104 [place] [address] Endocrinology 02/22/24 Jacob Morrow 5 [place] [address] Pulmonary Disease 02/22/24 Nicolasa Escobar MD [address] [place] [address] Dr [facility] 140 [place] [address] Neurology 02/22/24 Shen Davis MD [address] [place] [address] Nephrology 02/22/24 Ellyn Connolly Car VarnisherLandscape Management Technician 08/17/23 [facility] 01/11/24 01/21/24 [facility] 01/11/24 documented as of this encounter
--- OUTSIDE RECORDS SUMMARY | 2024-07-02 12:28 | XMS_ITS | Encounter Summary ---
Author Organization [employer] Address [address] [facility] 7t [place] [address] Care Team Providers Care Cooking Teacher Name Role Phone Tyoin Pollard Primary Care Provider Satish Brennan MD Unavailable Jacob Morrow Unavailable [phone] Nicolasa Escobar MD Unavailable Shen Davis MD Unavailable [phone] Encounter Details Date Type Department Care Team (Late st Contact Info) Description 06/15/2022 Orders Only [facility] 505 [place] [address] Ellyn Chery LPN Social History Tobacco Use [...] [facility] 505 [place] [address] Toyin Pollard FNP 505 [place] [address] 09/23/2024 11:00 AM EDT Telemedicine [facility] [address] [place] [address] 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, RN [address] [place] [address] documented as of this encounter Visit Diagnoses Not on filedocumented in this encounter Care Teams Cooking Teacher Relationship Specialty Start Date End Date Toyin Pollard FNP 230 [place] [address] PCP - General Family Medicine 01/11/21 Satish Brennan MD [address] [place] [address] Endocrinology 02/22/24 Jacob Morrow 5 [place] [address] Pulmonary Disease 02/22/24 Nicolasa Escobar MD [address] [place] [address] Dr [facility] 140 [place] [address] Neurology 02/22/24 Shen Davis MD [address] [place] [address] Nephrology 02/22/24 Ellyn Connolly See SupervisorDermatology Teacher 08/17/23 [facility] 01/11/24 01/21/24 [facility] 01/11/24 documented as of this encounter
--- OUTSIDE RECORDS SUMMARY | 2024-07-02 12:29 | XMS_ITS | Encounter Summary ---
Author Organization [employer] Address 75 [facility] 7t [place] [address] Care Team Providers Care Low Emission Automobile Designer Name Role Phone Toyin Pollard Primary Care Provider Satish Brennan MD Unavailable Jacob Morrow Unavailable [phone] Nicolasa Escobar MD Unavailable [phone] Shen Davis MD Unavailable [phone] Encounter Details Date Type Department Care Team (Late st Contact Info) Description 03/29/2023 Orders Only [facility] MED & PEDS [address] [place], [place] [phone] Maritza Daniel FNP [address] [place] [address] Social History Tobacco Use Types Packs/Day Years [...] Description 08/05/2024 10:30 AM EDT Office Visit [facility] MED & PEDS 505 [place] [address] Toyin Pollard FNP 505 [place] [address] 09/23/2024 11:00 AM EDT Telemedicine [facility] MED & PEDS 505 [place] [address] 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, RN 505 [place] [address] documented as of this encounter Goals Goal [...] documented as of this encounter Care Teams Low Emission Automobile Designer Relationship Specialty Start Date End Date Toyin Pollard FNP [address] [place] [address] PCP - General Family Medicine 01/11/21 Satish Brennan MD [address] [place] [address] Endocrinology 02/22/[address] [place] [address] Pulmonary Disease 02/22/24 Nicolasa Escobar MD [address] [place] [address] Dr [facility] 140 [place] [address] Neurology 02/22/24 Shen Davis MD [address] [place] [address] Nephrology 02/22/24 Ellyn Connolly Kitchen SupervisorArchitectural Intern 08/17/23 [facility] 01/11/24 01/21/24 [facility] 01/11/24 documented as of this encounter
--- OUTSIDE RECORDS SUMMARY | 2024-07-02 12:29 | XMS_ITS | Encounter Summary ---
Author Organization [employer] Address [address] [place] [address] 7t [place] [address] Care Team Providers Care Canadian Bacon Tier Name Role Phone Toyin Pollard Primary Care Provider Satish Brennan MD Unavailable [phone] Jacob Morrow Unavailable [phone] Nicolasa Escobar MD Unavailable [phone] Shen Davis MD Unavailable [phone] Encounter Details Date Type Department Care Team (Late st Contact Info) Description 03/15/2022 Orders Only [facility] MED & PEDS 505 [place] [address] Ellyn Chery LPN Social History Tobacco Use [...] Description 08/05/2024 10:30 AM EDT Office Visit [facility] MED & PEDS 505 [place] [address] Toyin Pollard FNP 505 [place] [address] 09/23/2024 11:00 AM EDT Telemedicine [facility] MED & PEDS [address] [place] [address] 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, RN [address] [place] [address] documented as of this encounter Visit Diagnoses Not on filedocumented in this encounter Care Teams Canadian Bacon Tier Relationship Specialty Start Date End Date Toyin Pollard FNP 230 [place] [address] PCP - General Family Medicine 01/11/21 Satish Brennan MD [address] [place] [address] Endocrinology 02/22/24 Jacob Morrow 5 [place] [address] Pulmonary Disease 02/22/24 Nicolasa Escobar MD [address] [place] [address] Dr [facility] 140 [place] [address] Neurology 02/22/24 Shen Davis MD [address] [place] [address] Nephrology 02/22/24 Ellyn Connolly Reporter AnchorFire Loss Prevention Engineer 08/17/23 [facility] 01/11/24 01/21/24 [facility] 01/11/24 documented as of this encounter
--- OUTSIDE RECORDS SUMMARY | 2024-07-02 12:29 | XMS_ITS | Encounter Summary ---
Author Organization [employer] Address 75 [facility] 7t [place] [address] Care Team Providers Care Hub Cutter Name Role Phone Toyin Pollard LOUIE Primary Care Provider Satish Brennan MD Unavailable [phone] Jacob Morrow Unavailable [phone] Nicolasa Escobar MD Unavailable Shen Davis MD Unavailable [phone] Reason for Visit * Reason Comments controlled substance treatment Encounter Details Date Type Department Care Team ([facility] st Contact Info) Description 06/27/2024 10:30 AM EDT Clinical Support [facility] MED & PEDS 505 [place] [address] 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, RN 505 [place] [address] Pain Social History Tobacco Use Types Packs/Day [...] the past 12 months, has t he What's in My Handbag, gas, oil or water [place] threatened to shut off services in your [...] RN - 06/27/2024 10:30 AM EDT S: NUCLEAR FUEL ENRICHMENT TECHNICIAN RV. Patient is bed bound. Patient came [...] she is not comfortable on the stretcher. NUCLEAR FUEL ENRICHMENT TECHNICIAN Agreement renewed today. O: Pt currently prescribed Tramadol 50mg Q24 PRN. FINANCIAL UNDERWRITER verified today. Rx last filled on 06/03/24. Pill count not performed as pt did not bring pills to the visit, 3 expected. Patient states she alwaystakes 1 pill/ day. Last PCP visit was 02/21/24. Pt unable to provide urine sample on her own, straight catheter used. Utox performed, positive for TCA only, patient takes Amitriptyline. 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 P: Pt to continue taking medication only as prescribed; Next NUCLEAR FUEL ENRICHMENT TECHNICIAN TELE RV appointment scheduled for 09/23/24 @ 11am. PE with PCP 08/05/24. F/U sooner PRN. Pt verbalized understanding and agreed to plan. documented in this encounter Plan of Treatment Upcoming Encounters Date Type Department Care Team (Late st Contact Info) Description 08/05/2024 10:30 AM EDT Office Visit [facility] MED & PEDS [address] [place] [address] Toyin Pollard FNP 505 [place] [address] 09/23/2024 11:00 AM EDT Telemedicine [facility] MED & PEDS [address] [place], [place] [phone] 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 RN 505 [place], [place] [phone] documented as of this encounter Goals Goal [...] RN - 06/27/2024 11:20 AM EDT Lot# [id number] Exp: 11-06-25 Toyin [place] POINT OF CARE TEST ENTER/EDIT ORDERABLES Final Result documented in this encounter Visit Diagnoses Diagnosis Pain Generalized pain documented in this encounter Additional Health Concerns Assessment Noted Time PHQ-9 Depression Total Score: 13 024 4:37 PM EDT documented as of this encounter Care Teams Hub Cutter Relationship Specialty Start Date End Date Toyin Pollard FNP 230 [place] [address] PCP - General Family Medicine 01/11/21 Satish Brennan MD [address] [place] [address] Endocrinology 02/22/24 Jacob Morrow 5 [place] [address] Pulmonary Disease 02/22/24 Nicolasa Escobar MD [address] [place] [address] Neurology 02/22/24 Shen Davis MD [address] [place] [address] Nephrology 02/22/24 Ellyn Connolly Homeowner Association ManagerChief Yeoman 08/17/23 [facility] 01/11/24 documented as of this encounter
--- OUTSIDE RECORDS SUMMARY | 2024-07-02 12:29 | XMS_ITS | Encounter Summary ---
Author Organization [employer] Address 75 [facility] 7t [place] [address] Care Team Providers Care Project Admin Name Role Phone Toyin Pollard LOUIE Primary Care Provider Satish Brennan MD Unavailable Jacob Morrow Unavailable [phone] Nicolasa Escobar MD Unavailable Shen Davis MD Unavailable [phone] Reason for Visit * Reason Onset Date Comments Med Refill 06/27/2024 Encounter Details Date Type Department Care Team (Late st Contact Info) Description 06/27/2024 Refill [facility] MED & PEDS 505 [place] [address] 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, RN 505 [place] [address] Pain; Calculus of gallbladder without cholecystitis without [...] 3 expected. PE with you 08/05/24. What RIVET TOSSER Tier would you like this patient to be? Tier 1 = HIGH RISK, Monthly RIVET TOSSER visits Tier 2 = MODerate RISK, Q3 Month visits Tier 3 = LOW RISK = Q4-6 month visits documented in this encounter Plan of Treatment Upcoming Encounters Date Type Department Care Team (Late st Contact Info) Description 08/05/2024 10:30 AM EDT Office Visit [facility] MED & PEDS 505 [place] [address] Toyin Pollard FNP 505 [place], [place] 09/23/2024 11:00 AM EDT Telemedicine [facility] MED & PEDS [address] [place] [address] 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 RN 505 [place], [place] [phone] documented as of this encounter Goals Goal [...] as of this encounter Care Teams Project Admin Relationship Specialty Start Date End Date Toyin Pollard FNP [address] [place] [address] PCP - General Family Medicine 01/11/21 Satish Brennan MD 10 [facility] [address] [place] [address] Endocrinology 02/22/24 Jacob Morrow 5 [place], [place] Pulmonary Disease 02/22/24 Nicolasa Escobar MD [address] [place] [address] K[address] Solis [place], [place] [address] Neurology 02/22/24 Shen Davis MD [address] [place] [address] Nephrology 02/22/24 Ellyn Connolly Journeyman Meat CutterGas Combustion Engineer 08/17/23 [facility] 01/11/24 documented as of this encounter
--- OUTSIDE RECORDS SUMMARY | 2024-07-02 12:29 | XMS_ITS | Encounter Summary ---
Author Organization [employer] Address [address] [facility] 7t [place] [address] Care Team Providers Care Contract Law Specialist Name Role Phone Toyin Pollard LOUIE Primary Care Provider [phone] Satish Brennan MD Unavailable [phone] Jacob Morrow Unavailable [phone] Nicolasa Escobar MD Unavailable Shen Davis MD Unavailable [phone] Encounter Details Date Type Department Care [...] 10:30 AM EDT Office Visit [facility] MED & PEDS 505 [place] [address] Toyin Pollard FNP 505 [place] [address] 09/23/2024 11:00 AM EDT Telemedicine [facility] MED & PEDS 505 [place] [address] 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, RN 505 [place] [address] documented as of this encounter Goals Goal [...] documented as of this encounter Care Teams Contract Law Specialist Relationship Specialty Start Date End Date Toyin Pollard FNP 230 [place] [address] PCP - General Family Medicine 01/11/21 Satish Brennan MD [address] [place] [address] Endocrinology 02/22/24 Jacob Morrow [address] [place] [address] Pulmonary Disease 02/22/24 Nicolasa Escobar MD [address] [place] [address] [place] [address] Neurology 02/22/24 Shen Davis MD [address] [place] [address] Nephrology 02/22/24 Ellyn Connolly Ob TechWelding Technician 08/17/23 [facility] 01/11/24 documented as of this encounter
--- OUTSIDE RECORDS SUMMARY | 2024-07-02 12:29 | XMS_ITS | Encounter Summary ---
Author Organization [employer] Address 75 [facility] 7t [place] [address] Care Team Providers Care Promotions Firm Accounts Manager Name Role Phone Toyin Pollard Primary Care Provider Satish Brennan MD Unavailable [phone] Jacob Morrow Unavailable [phone] Nicolasa Escobar MD Unavailable Shen Davis MD Unavailable [phone] Reason for Visit * Reason Onset Date Comments Forms/questionnaires 03/03/2022 Encounter Details Date Type Department Care Team (Late st Contact Info) Description 03/03/2022 Telephone [facility] MEDICINE 230 [place] [address] Toyin Pollard FNP 505 [place], [place] [phone] Forms/questionnaires Social History Tobacco Use Types Packs/Day [...] 12:07 PM EST Tc from [place] from [facility] requesting status on 485 form . States they have faxed several times since November and have not yet received back . Informs needs by 03/15/22 if not pt will be discharged from services. Best contact number [phone]. There fax number is [phone] . documented in this encounter Plan of Treatment Upcoming Encounters Date Type Department Care Team (Late st Contact Info) Description 08/05/2024 10:30 AM EDT Office Visit [facility] MED & PEDS 505 [place] [address] Toyin Pollard FNP 505 [place] [address] 09/23/2024 11:00 AM EDT Telemedicine [facility] MED & PEDS 505 [place] [address] 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 RN 505 [place] [address] documented as of this encounter Visit Diagnoses Not on filedocumented in this encounter Care Teams Promotions Firm Accounts Manager Relationship Specialty Start Date End Date Toyin Pollard FNP [address] [place] [address] PCP - General Family Medicine 01/11/21 Satish Brennan MD [address] [place] [address] Endocrinology 02/22/24 Jacob Morrow 5 [place] [address] Pulmonary Disease 02/22/24 Nicolasa Escobar MD [address] [place] [address] [place] [address] Neurology 02/22/24 Shen Davis MD [address] [place] [address] Nephrology 02/22/24 Ellyn Connolly Artist'S RepresentativeWheelage Clerk 08/17/23 [facility] 01/11/24 01/21/24 [facility] 01/11/24 documented as of this encounter
--- OUTSIDE RECORDS SUMMARY | 2024-07-02 12:29 | XMS_ITS | Encounter Summary ---
Author Organization [employer] Address [address] [facility] 7t [place] [address] Care Team Providers Care Administrative Coordinator Name Role Phone Toyin Pollard Primary Care Provider Satish Brennan MD Unavailable Jacob Morrow Unavailable [phone] Nicolasa Escobar MD Unavailable Shen Davis MD Unavailable [phone] Reason for Visit * Reason Onset Date Comments Durable Medical Equipment 05/16/2024 Encounter Details Date Type Department Care Team (Late st Contact Info) Description 05/16/2024 Telephone [facility] MEDICINE 230 [place], [place] [phone] Toyin Pollard FNP 505 [place], [place] [phone] Durable Medical Equipment Social History Tobacco Use [...] 10:30 AM EDT Office Visit [facility] MED & PEDS 505 [place] [address] Toyin Pollard FNP 505 [place] [address] 09/23/2024 11:00 AM EDT Telemedicine [facility] MED & PEDS 505 [place] [address] 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, MINA 505 [place] [address] documented as of this encounter Goals Goal [...] as of this encounter Care Teams Administrative Coordinator Relationship Specialty Start Date End Date Toyin Pollard FNP 230 [place] [address] PCP - General Family Medicine 01/11/21 Satish Brennan MD [address] [place] [address] Endocrinology 02/22/24 Jacob Morrow 5 [place] [address] Pulmonary Disease 02/22/24 Nicolasa Escobar MD [address] [place] [address] Dr [facility] 140 [place] [address] Neurology 02/22/24 Shen Davis MD [address] [place] [address] Nephrology 02/22/24 Ellyn Connolly Tourist EscortAssociate Professor Of Counseling 08/17/23 [facility] 01/11/24 documented as of this encounter
--- OUTSIDE RECORDS SUMMARY | 2024-07-02 12:29 | XMS_ITS | Encounter Summary ---
Author Organization [employer] Address 75 [facility] 7t [place] [address] Care Team Providers Care Director Of Research Center Name Role Phone Toyin Pollard Primary Care Provider Satish Brennan MD Unavailable Jacob Morrow Unavailable [phone] Nicolasa Escobar MD Unavailable Shen Davis MD Unavailable [phone] Reason for Visit * Reason Onset Date Comments Nurse Triage 03/08/2023 Encounter Details Date Type Department Care Team (Late st Contact Info) Description 03/08/2023 Telephone [facility] MEDICINE 230 [place], [place] [phone] Toyin Pollard FNP 505 [place], [place] [phone] Nurse Triage Social History Tobacco Use Types [...] Upcoming Encounters Date Type Department Care Team ([facility] st Contact Info) Description 08/05/2024 10:30 AM EDT Office Visit [facility] MED & PEDS 505 [place] [address] Toyin Pollard FNP 505 [place] [address] 09/23/2024 11:00 AM EDT Telemedicine [facility] MED & PEDS 505 [place] [address] 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 RN 505 [place] [address] documented as of this encounter Goals Goal [...] documented as of this encounter Care Teams Director Of Research Center Relationship Specialty Start Date End Date Toyin Pollard FNP 230 [place] [address] PCP - General Family Medicine 01/11/21 Satish Brennan MD [address] [facility] [address] [place] [address] Endocrinology 02/22/24 Jacob Morrow 5 [place] [address] Pulmonary Disease 02/22/24 Nicolasa Escobar MD [address] [place] [address] Dr Kameron [address] [place] [address] Neurology 02/22/24 Shen Davis MD [address] [facility] [address] [facility] [address] [facility] 302 [place] [address] Nephrology 02/22/24 Ellyn Connolly Reservations ManagerCanoe Builder 08/17/23 [facility] 01/11/24 01/21/24 [facility] 01/11/24 documented as of this encounter
--- OUTSIDE RECORDS SUMMARY | 2024-07-02 12:29 | XMS_ITS | Encounter Summary ---
Author Organization [employer] Address 75 [facility] 7t [place] [address] Care Team Providers Care Md Do [facility] Name Role Phone Toyin Pollard Primary Care Provider [phone] Satish Brennan MD Unavailable Jacob Morrow Unavailable [phone] Nicolasa Escobar MD Unavailable Shen Davis MD Unavailable [phone] Reason for Visit * Reason Onset Date Comments Durable Medical Equipment 05/22/2024 Encounter Details Date Type Department Care Team (Late st Contact Info) Description 05/22/2024 Telephone [facility] MEDICINE 230 [place], [place] [phone] Toyin Pollard FNP 505 [place], [place] [phone] Durable Medical Equipment Social History Tobacco Use [...] [facility] to check status of DME. [phone] * Telephone Encounter - Lynne Flaherty - 06/26/2024 11:24 AM EDT Tc from [place] with [facility] to check status of DME. [phone] * Telephone Encounter - Mona Ivory LPN - 06/18/2024 9:39 AM EDT Call was returned to shelter case manager No Answer LVM to return call [facility] requesting DME -wipes -adult diapers 3xl -Incontinence pads/pt requesting a different brand due to rash. Pt was triaged on 05/15/24 for rash PLEASE return call to [facility] and let her know status [phone] Yorlenis been trying to help pt get [...] 05/15/24 for rash PLEASE return call to [facility] and let her know status [phone] Yorlenis been trying to help pt get DME supplies and been waiting since April. Yorlenaniket inform pt doesn't have enough source of income to buy supplies as is needed URGENTLY ! * Telephone Encounter - Mona Ivory LPN - 05/22/2024 1:33 PM EST assembly instructions writer communicated with [facility] to seek clarification regarding the message below. assembly instructions writer was informedthat the patient has received the durable medical equipment (DME), although it is not the specific brand requested, as the items being sent are those covered by the patient's insurance. assembly instructions writer also updated the patient on this information and recommended that the patient contact their insurance provi marc to inquire about coverage details. Tc from [place] with [facility] requesting DME -wipes -adult diapers [...] 10:30 AM EDT Office Visit [facility] MED & PEDS 505 [place] [address] Toyin Pollard FNP 505 [place] [address] 09/23/2024 11:00 AM EDT Telemedicine [facility] MED & PEDS 505 [place], [place] [phone] 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 RN 505 [place], [place] [phone] documented as of this encounter Goals Goal [...] documented as of this encounter Care Teams Md Do [facility] Relationship Specialty Start Date End Date Toyin Pollard FNP [address] [place] [address] PCP - General Family Medicine 01/11/21 Satish Brennan MD [address] [place] [address] Endocrinology 02/22/24 Jacob Morrow 5 [place] [address] Pulmonary Disease 02/22/24 Nicolasa Escobar MD [address] [place] [address] [place] [address] Neurology 02/22/24 Shen Davis MD [address] [place] [address] Drive [address] [place] [address] Nephrology 02/22/24 Ellyn Connolly Rug Dyer HelperBridge Repairer 08/17/23 [facility] 01/11/24 documented as of this encounter
--- NOTE | 2024-07-02 15:32 | MHC.AU.HA3 ---
Hearing Instrument Follow-Up- Binaural Date of Visit: 07/02/24 Right Ear: Be[place], Model, Color, Serial Number: Bruce Shields P70-R SN: [id number] Color: Silver Bennett Senior Asic Engineer Repair Warranty: 05/23/2026 Senior Asic Engineer Loss and Damage Warranty: 05/23/2026 [facility] Service Plan: 05/12/2024 Battery Size: Rechargeable Audioprosthologist/Slim Tube: 1M Earmold/Dome/CShell/SlimTip:Acrylic Canal SlimTip SN: [id number] Mary: 07/22/2023 Type of Wax Guard: CeruStop on clam dredge boat captain; No wax protection on mold Dispensed By: [facility] Date of Fittin05/12/2023 Left Ear: Benito, Model, Color, Serial Number: Bruce Shields P70-R SN: [id number] Color: Silver Bennett Senior Asic Engineer Repair Warranty: 05/17/2025 Senior Asic Engineer Loss and Damage Warranty: 05/17/2025 [facility] Service Plan: 03/09/2023 Battery Size: Rechargeable Audioprosthologist/Slim Tube: 1M Earmold/Dome/CShell/SlimTip: Acrylic Canal SlimTip SN: [id number] Mary: 07/22/2023 Type of Wax Guard: CeruStop on clam dredge boat captain; No wax protection on mold Dispensed By: [facility] Date of Fittin03/09/2022 Follow-Up Summary: Both HAs/EMs dropped off reporting left not working, right intermittent. Noted wax build up in receivers behind wax guards. Changed both receivers to 5.0, will now use CeruStops (previously CeruShields). Vacuumed microphones. Ran through deLeartieste Boutiquemidifier. Listening check demonstrated HAs amplifying clearly. To front office for fruit picker. Recommendations: Hearing instrument follow-up or maintenance as needed. Please contact our clinic with any questions or concerns. Diagnosis Code(s): Primary Diagnosis: H90.3 Bilateral Sensorineural Hearing Loss Signature: Provider: Caden Del Angel, [facility]
== END 2024-07-02 10:23 | disposition home or self-care (01) ==
LOC: HO.HAP 10:22
PROVIDERS: Visit Provider Registered Nurse
DX: Z46.1 Encounter for fitting and adjustment of hearing aid (principal); H90.3 Sensorineural hearing loss, bilateral
CPT/HCPCS: 92593; 99499

== ENCOUNTER 2024-07-02 14:21 | Emergency (ER) | payer MEDICAID, SELFPAY ==
--- NOTE | ~2024-07-02 | XR_ITS ---
EXAMINATION: XR ANKLE, RIGHT CLINICAL INFORMATION: pain, hx of fx COMPARISON: April 04, 2024. TECHNIQUE: 2 views of the right ankle. 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 Degenerative changes in the ankle and tarsal bones. Osteopenia versus osteoporosis. Deformity of the lateral malleolus. No subcutaneous emphysema. Plantar calcaneal spur. XR/XR ankle RT 2V IMPRESSION: Nonunion fracture, distal fibula.. Degenerative changes. Superimposed osteomyelitis cannot be excluded. Electronically signed by: Jose Lopez MD 07/02/2024 03:56 PM EDT
--- NOTE | ~2024-07-02 | XR_ITS ---
EXAMINATION: XR FOOT, RIGHT CLINICAL INFORMATION: pain, hx of fx COMPARISON: April 04, 2024. TECHNIQUE: AP, lateral, and oblique views of the right foot. FINDINGS: Foreshortening/amputation of the distal phalanx, great toe. Osteopenia versus osteoporosis. Cortical irregularity and lucency in the anterior aspect distal diaphysis metaphysis of the fibula. No subcutaneous emphysema. Degenerative changes in the tarsal bones. XR/XR foot RT 2V IMPRESSION: Osteolysis/amputation distal phalanx, great toe. Nonunion fracture, distal fibula. Osteopenia versus osteoporosis. Electronically signed by: Jose Lopez MD 07/02/2024 03:53 PM EDT
--- NOTE | 2024-07-02 14:40 | ED.GENADULT ---
HPI - General Adult General Chief complaint: Urogenital-Female Stated complaint: R ANKLE PAIN,PAIN W/URINATION,HOME 02 PER EMS Time Seen by Provider: 07/02/24 14:40 Source: patient, EMS and old records reviewed Mode of arrival: EMS Limitations: no limitations History of Present Illness ED Provider: Silvia Ramirez PA-C HPI narrative: This is a 54-year-old female, with a past medical history of morbid obesity, COPD on 6.5 L NC baseline, primary bed-bound at baseline, diabetes, hepatitis, hypertension, prior STEMI, ADHD, PTSD, schizoaffective disorder, who presents emergency department via EMS with concerns for right ankle pain and urinary symptoms. Patient reports that in the fall she was diagnosed with a comminuted distal metadiaphysis of the fibula. This was initially caused by a fall. She was seen by Orthopedics in November, where she was placed in a custom made short leg cast, and to remain nonweightbearing. Patient reports that she was in fact placed in a postoperative shoe. She was supposed to follow-up with them in 4 weeks with repeat x-rays however she did not ultimately follow-up with them as she was having a difficulty with transportation given her morbid obesity. She states that she has been nonweightbearing for 6 months. She has had no injury to her foot and ankle. She was supposed to follow-up in 4 weeks with repeat x-rays. The x-rays in the right ankle revealed healing of the right fibular fracture. Patient did not follow-up with Orthopedics at that time. Patient also reports that last week she had a catheter placed as she had routine labs performed. She states that on , 1 day after she had the catheter placed, she developed dysuria, urinary frequency, urgency. Denies any fevers, chills, chest pain, shortness of breath, abdominal pain, nausea, vomiting or diarrhea. No other complaints or concerns at this time. MD complaint: Ankle pain, urinary symptoms Relieving factors: none Exacerbating factors: none Associated symptoms: denies other symptoms Treatments prior to arrival: none Related Data Home Medications ?Medication ?Instructions ?Recorded ?Confirmed amitriptyline 10 mg tablet 10 mg PO BEDTIME 01/10/20 12/22/23 benztropine 1 mg tablet 1 mg PO BID@1200,2100 01/10/20 12/22/23 lisinopril 10 mg tablet 10 mg PO BEDTIME 01/10/20 12/22/23 montelukast 10 mg tablet 10 mg PO BEDTIME 01/10/20 12/22/23 multivitamin 1 tab PO DAILY@1200 01/10/20 12/22/23 atenolol 50 mg tablet 50 mg PO DAILY@1200 04/20/21 12/22/23 docusate sodium 100 mg capsule 100 mg PO DAILY PRN Constipation 04/20/21 12/22/23 folic acid 1 mg tablet 1 tab PO DAILY 04/20/21 12/22/23 furosemide 40 mg tablet 1 tab PO DAILY 04/20/21 12/22/23 lurasidone 60 mg tablet (Latuda) 60 mg PO DAILY@0800 04/20/21 12/22/23 melatonin 5 mg tablet 10 mg PO BEDTIME PRN insomnia 04/20/21 12/22/23 prazosin 5 mg capsule 1 cap PO BEDTIME 04/20/21 12/22/23 alendronate 70 mg tablet 1 tab PO MO@0600 04/22/21 12/22/23 diclofenac sodium 1 % topical gel 2 g topical BID Pain 04/22/21 12/22/23 fluticasone propionate 50 1 spray intranasal DAILY PRN 04/22/21 12/22/23 mcg/actuation nasal ALLERGIES spray,suspension hydroxyzine HCl 50 mg tablet 1 - 2 tab PO TID PRN Anxiety, 04/22/21 12/22/23 Sleep, Agitation cholecalciferol (vitamin D3) 50 50 mcg PO DAILY 07/20/21 12/22/23 mcg (2,000 unit) tablet acetaminophen 500 mg tablet 500 mg PO Q6H PRN Pain 09/08/21 12/22/23 lidocaine 5 % topical patch 1 patch topical DAILY 09/08/21 12/22/23 Oxygen Home Use 03/25/22 09/29/22 nebulizers 03/25/22 09/29/22 cetirizine 10 mg tablet 10 mg PO DAILY PRN allergies 09/08/22 12/22/23 divalproex 250 mg tablet,extended 750 mg PO DAILY@1200 09/08/22 12/22/23 release 24 hr nicotine (polacrilex) 4 mg gum 4 mg PO Q2H PRN Nicotine Cravings 09/08/22 12/22/23 prazosin 1 mg capsule 1 mg PO BEDTIME 09/08/22 12/22/23 econazole nitrate 1 % topical cream 1 appl topical BID 03/30/23 11/01/23 ammonium lactate 12 % lotion 1 appl topical DAILY PRN Dry Skin 11/01/23 12/22/23 lorazepam 1 mg tablet 1 mg PO DAILY PRN panic attack 11/01/23 12/22/23 naproxen 500 mg tablet 500 mg PO BID 11/01/23 12/22/23 nystatin 100,000 unit/gram topical 1 appl topical BID 11/01/23 12/22/23 powder rimegepant 75 mg disintegrating 75 mg PO NEEDED migraine 11/01/23 12/22/23 tablet (Nurtec ODT) topiramate 50 mg tablet 50 mg PO DAILY 11/01/23 11/01/23 quetiapine 100 mg tablet 100 mg PO DAILY@1200 PRN Anxiety 12/22/23 12/22/23 Previous Rx's ?Medication ?Instructions ?Recorded leg brace (Ankle Brace) #1 ea 01/22/20 pen needle, diabetic 32 gauge x #125 ea 04/01/22 (BD Ultra-Fine Mary Pen Needle) blood-glucose sensor (FreeStyle #2 ea 04/12/23 Todd 3 Sensor device) tramadol 50 mg tablet 50 mg PO BID PRN Pain #60 tabs 11/04/23 blood sugar diagnostic (FreeStyle #100 strips 11/30/23 Precision Ronny Strips) divalproex 250 mg tablet,extended 750 mg (3 x 250 mg) PO BEDTIME #90 12/26/23 release 24 hr tabs hospital bed #1 ea 12/26/23 quetiapine 300 mg tablet 300 mg PO BEDTIME #30 tabs 12/26/23 flash glucose sensor (FreeStyle #2 kits 01/04/24 Todd 2 Sensor kit) albuterol sulfate 90 mcg/actuation 2 puff inhalation Q4H PRN 01/29/24 aerosol inhaler (Ventolin HFA) Shortness Of Breath Or Wheezing 30 days #8.5 grams budesonide 160 mcg-glycopyr 9 2 inh inhalation BID 30 days #10.7 01/29/24 mcg-formot 4.8 mcg/actuation HFA grams inhaler (Breztri Aerosphere) Tirosint 150 mcg capsule 150 mcg PO DAILY #30 caps 04/02/24 (levothyroxine) ketorolac 10 mg tablet 10 mg PO Q6H PRN pain #20 tabs 05/02/24 methocarbamol 750 mg tablet 1,500 mg (2 x 750 mg) PO TID PRN 05/02/24 pain, moderate #24 tabs atorvastatin 40 mg tablet 40 mg PO QAM 90 days #90 tabs 06/20/24 blood sugar diagnostic (FreeStyle #100 ea 06/20/24 Lite Strips) tirzepatide 7.5 mg/0.5 mL 7.5 mg (0.5 mL) subcut QWEEK 28 06/25/24 subcutaneous pen injector days #2 mL (Mounjaro) insulin glargine U-300 conc 300 64 unit (0.2133 mL) subcut BEDTIME 06/26/24 unit/mL (3 mL) subcutaneous pen 90 days #21 mL (Toujeo Max U-300 SoloStar) insulin lispro 100 unit/mL See Rx Instructions subcut 06/28/24 subcutaneous pen (Humalog KwikPen TIDWMEAL 30 days #18 mL (U-100) Insulin) nitrofurantoin 100 mg PO Q12H 5 days #10 caps 07/02/24 monohydrate/macrocrystals 100 mg capsule (Macrobid) Allergies Allergy/AdvReac Type Severity Reaction Status Date / Time metformin Allergy Intermediate Diarrhea Verified 07/02/24 14:47 tetracycline Allergy Intermediate hives Verified 07/02/24 14:47 Latex, Natural Rubber Allergy Rash Verified 07/02/24 14:47 haloperidol [From HALDOL] AdvReac Intermediate Irritable Verified 07/02/24 14:47 Review of Systems Review of Systems: Yes all other systems are reviewed and are negative Constitutional: Constitutional: Reports as per [facility] Past Medical History Attestation statement: The following information was validated with the patient. Medical History Right fibular fracture Obesity Osteoporosis Hypercapnia COPD (chronic obstructive pulmonary disease) Hypothyroidism Multinodular thyroid HLD (hyperlipidemia) T2DM (type 2 diabetes mellitus) Pneumonitis Chronic respiratory failure Pulmonary nodules Pneumonia Acute and chronic respiratory failure with hypoxia MORGAN on CPAP Morbid (severe) obesity due to excess calories Chronic restrictive lung disease Obesity due to excess calories DM2 (diabetes mellitus, type 2) HLD (hyperlipidemia) Diabetes Goiter Vitamin D deficiency Hypothyroidism Fibula fracture Hx of fracture of patella Back pain GERD (gastroesophageal reflux disease) Hepatitis History of posttraumatic stress disorder (PTSD) Depression Myocardial infarction AAA (abdominal aortic aneurysm) without rupture Morbid obesity Hernia Umbilical hernia PTSD (post-traumatic stress disorder) ADHD Schizo affective schizophrenia Arthritis Migraine Diabetes HTN (hypertension) Gallstone Aortic aneurysm Sleep apnea Asthma Surgical History Hx of knee surgery Hx of tubal ligation History of incision and drainage Tubal ligation status Family History Family History Father Unknown family medical history Mother Unknown family medical history Sister Ovarian cancer Son No problems noted. Son Depression Son Asthma Bipolar 1 disorder ADHD Daughter No problems noted. Daughter Unknown family medical history Daughter Unknown family medical history Daughter No problems noted. Social History Social History Household Members: Unknown / Unable to assess Housing: Unknown / Unable to assess Are you a primary health care technician to a significant other at home: No Do you presently have visiting nurse or other home services: No Unable to assess alcohol history related to: Unable to respond Alcohol intake: never Patient Tobacco Use Status: Tobacco use Unknown Tobacco use type: Cigarette Cigarette Packs Per Day: 6 Years Smoked: 35 e-Cigarette/Vaping Use: Currently Using Substance Use Type: Marijuana Advance Directives: Yes Advance Directives on File: Yes Advance Directives Date on File: 09/13/21 Patient : No service: No Current occupational status: unemployed Physical Exam ED Vital Signs: Vital Signs - 24 hr 07/02/24 14:46 07/02/24 18:25 Temperature 98.6 F 98.4 F Pulse Rate 80 77 Respiratory Rate 24 H 20 Blood Pressure 104/73 116/78 Pulse Oximetry 96 Oxygen Delivery Method Nasal Cannula Nasal Cannula Oxygen Flow Rate 6.5 BMI result Body Mass Index 74.0 Const General: cooperative, comfortable, no acute distress and poor hygiene Nutritional Appearance: obese Orientation/consciousness: patient oriented x3 Limitations: no limitations HENMT Head: Yes normal to inspection, Yes normocephalic and Yes atraumatic Ears: hearing grossly normal bilaterally General nose exam: Normal external nose present Face and sinus: Yes normal facial exam Mouth: Normal oral and palatal mucosa present, oropharynx normal and moist mucous membranes Throat: Yes posterior oropharynx normal Eyes General: appearance normal, both eyes and all related structures Eyelids: Yes eyelids normal Conjunctivae: conjunctivae normal Sclerae: sclerae normal Pupils: Equal, round and reactive pupils present EOM: EOMs intact bilaterally Neck Neck: Yes normal visual inspection, Yes full ROM and Yes no lymphadenopathy Lymphatic: no lymphadenopathy noted Chest Chest palpation & inspection: normal inspection of the chest Resp Other: On nasal cannula Effort & Inspection: normal respiratory effort and able to speak in complete sentences Auscultation: clear to auscultation bilaterally, no crackles, no rales, no rhonchi and no wheezes Cardio Rate: regular rate Rhythm: regular rhythm Heart sounds: S1 normal heart sound present and S2 normal heart sound present GI Other: Abdomen is soft nontender Inspection: Yes normal to inspection Other: No CVA tenderness Skin General skin exam: no rashes or lesions noted Trauma: no lacerations or abrasions Wounds: no wounds Neuro General: patient oriented x3 and moves all extremities Cranial nerves: Yes Equal, round and reactive pupils present Extrem Other: No calf tenderness pitting edema. Tenderness palpation along the right medial malleolus, nontender right forefoot. No tenderness palpation along the 5th metatarsal. Strong DP pulse. No open wounds or lacerations. No erythema. Able to dorsi and plantar flex the ankle with pain General: Yes normal to inspection Right upper extremity: normal to inspection Left upper extremity: normal to inspection Right lower extremity: normal to inspection Left lower extremity: normal to inspection Course Reevaluation(s) Reevaluation #1: Urine appears to be infected, blood work revealing no leukocytosis, normocytic anemia with an H&H of 9.6/29.3, chemistry with slight hyponatremia, potassium 4.9, chloride 82, carbon dioxide 35, creatinine clearance within normal limits. Patient reports that she drinks ?a lot of water?. She denies any alcohol use. She states that she drinks approximately 8 32 oz bottles of water due to her diabetes. I discussed with patient that she should be admitted for hyponatremia, and urinary tract infection as well as nonhealing right ankle fracture. She adamantly refuses. I discussed the risks and benefits of staying however patient reports that she can not stay. She was aware that her medical condition can declined rapidly, and she will be signing against medical advice. She aware of these consequences, she has the right to refused. Will treat with Macrobid given urine culture in the past was resistant to cephalosporins. We will also medicate with 1 g of sodium chloride. I discussed this with my attending physician Dr. Delacruz. I discussed nonunion fracture, they are recommending staying in boot and to follow-up outpatient. She understands and agrees with plan. Time: 17:05 Medications Administered Discontinued Medications Generic Name Dose Route Start Last Admin Trade Name Freq PRN Reason Stop Dose Admin Nitrofurantoin Macrocrystals 100 mg 07/02/24 17:22 07/02/24 17:41 Nitrofurantoin Monohyd/M-Cryst 100 Mg Capsule PO 07/02/24 17:23 100 mg ONCE ONE Administration Sodium Chloride 1 gm 07/02/24 17:27 07/02/24 17:48 Sodium Chloride Tab 1 Gm Tablet PO 07/02/24 17:28 1 gm ONCE ONE Administration Medical Decision Making Medical Decision Making [facility] Narrative: This is a 54-year-old female who presents emergency department with complaints of ankle pain and dysuria, urinary frequency and urgency. Patient initially brought via EMS due to morbid obesity. She was bed-bound. Patient had a fracture that she was seeing Orthopedics for however she has been unable to get transportation and has not been able to see them in over 6 months. She has been wearing walking boot however states that over the last month she has had increased pain. Differential diagnoses include fracture, contusion, sprain, strain. Also ordered urinalysis as well as blood to rule out any electrolyte derangement or leukocytosis. She has no CVA tenderness. No abdominal pain or back pain to suggest pyelonephritis. Differential Diagnosis Differential Diagnoses: The differential diagnosis associated with the presentation includes Fracture, contusion, sprain, strain, hyponatremia, electrolyte derangement, pyelonephritis-unlikely Admission/Observation Consideration of admission/observation: Escalation of care including admission/observation considered Patient meeting hospital admission level of care however patient adamantly refuses, signing AMA Consult Healthcare Provider Management of the patient was discussed with: Control Panel Tester Keira Cottrell PA-C Lab Data [facility] Lab Attestation statement: I reviewed the patient's lab results. Patient with no leukocytosis, normocytic anemia with an H&H of 9.6/29.3, hyponatremic at 1:27 a.m., chloride 82, carbon dioxide 35, random glucose 133. Positive blood, nitrites, large blood, rbc's and wbc's, consistent with a UTI. 07/02/24 15:33 07/02/24 15:33 Labs: Lab Results 07/02/24 07/02/24 Range/Units 15: 16:10 WBC 8.2 (4.8-10.8) X10*3/uL RBC 3.58 L (4.20-5.50) X10*6/uL Hgb 9.6 L (12.0-16.0) g/dl Hct 29.3 L (37.0-47.0) % MCV 81.8 (80.0-98.0) fL MCH 26.8 L (27.0-33.0) pg MCHC 32.8 (31.0-35.0) g/dl RDW 16.3 H (11.0-16.0) % Plt Count 308 (160-400) X10*3/uL MPV 10.3 (9.4-12.3) fL Immature Gran % (Auto) 1.3 H (0.0-0.4) % Neut % (Auto) 54.1 (45-73) % Lymph % (Auto) 33.6 (20-40) % [place] % (Auto) 7.2 (2-11) % Eos % (Auto) 3.1 (0-4) % Baso % (Auto) 0.7 (0-2) % Lymph # (Auto) 2.7 (1.2-4.9) X10*3/uL [place] # (Auto) 0.6 (0.1-1.2) X10*3/uL Eos # (Auto) 0.3 (0.0-0.4) X10*3/uL Baso # (Auto) 0.1 (0.0-0.2) X10*3/uL Abs Immat Gran (auto) 0.11 H (0.00-0.03) X10*3/uL Absolute Neuts (auto) 4.4 (2.0-8.3) x10*3/uL Absolute Nucleated RBC 0.000 (0.0-0.012) X10*3/uL Nucleated RBC % (auto) 0.0 (0.0-0.2) /100WBC Sodium 127 L (135-145) mmol/L Potassium 4.9 D (3.3-5.1) mmol/L Chloride 82 L (96-108) mmol/L Carbon Dioxide 35 H (22-29) mmol/L Anion Gap 15 (12-20) BUN 9 (9-16) mg/dL Creatinine 0.67 (0.5-1.4) mg/dL Estim Creat Clear Calc 182.1 Estimated GFR > 60 Random Glucose 133 H (60-115) mg/dL Calcium 9.7 (8.4-10.2) mg/dL Total Bilirubin 0.2 (0.0-1.0) mg/dL AST 19 (5-31) U/L ALT 10 (0-31) U/L Alkaline Phosphatase 54 (39-117) U/L Total Protein 7.0 (6.5-8.0) g/dL Albumin 4.0 (3.5-5.0) g/dL Urine Color Dark Yellow Urine Appearance Cloudy Urine pH 7.5 (5.0-9.0) Ur Specific [place] 1.015 (1.005-1.025) Urine Protein Trace (Neg-Trace) mg/dL Urine Glucose (UA) Negative (Negative) mg/dL Urine Ketones Negative (Negative) mg/dL Urine Blood Trace H (Negative) Urine Nitrite Positive H (Negative) Ur Leukocyte Esterase Large (3+) H (Negative) Urine RBC 6-10 H (0-2) /HPF Urine WBC >50 H (0-5) /HPF Ur Squamous Epith Cells 0-2 (0-2) /HPF Urine Bacteria 4+ (None Seen) Hyaline Casts 0-2 (0-2) /LPF Radiology Impression Discussion of test interpretation with radiology: I have reviewed the radiologist's reading. Radiologist Impression: CLINICAL INFORMATION: pain, hx of fx COMPARISON: April 04, 2024. TECHNIQUE: AP, lateral, and oblique views of the right foot. FINDINGS: Foreshortening/amputation of the distal phalanx, great toe. Osteopenia versus osteoporosis. Cortical irregularity and lucency in the anterior aspect distal diaphysis metaphysis of the fibula. No subcutaneous emphysema. Degenerative changes in the tarsal bones. XR/XR foot RT 2V IMPRESSION: Osteolysis/amputation distal phalanx, great toe. Nonunion fracture, distal fibula. Osteopenia versus osteoporosis. Electronically signed by: Jose Lopez MD 07/02/2024 03:53 PM EDT RP EXAMINATION: XR ANKLE, RIGHT CLINICAL INFORMATION: pain, hx of fx COMPARISON: April 04, 2024. TECHNIQUE: 2 views of the right ankle. 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 Degenerative changes in the ankle and tarsal bones. Osteopenia versus osteoporosis. Deformity of the lateral malleolus. No subcutaneous emphysema. Plantar calcaneal spur. XR/XR ankle RT 2V IMPRESSION: Nonunion fracture, distal fibula.. Degenerative changes. Superimposed osteomyelitis cannot be excluded. 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 Your urine was positive for an infection, we are treating you with course of antibiotics, please take prescribed medication as directed. Finish the entire course. We will call you if we need to switch his antibiotic. Your next dose of antibiotic will be due tomorrow morning as you already received your 1st dose. Your blood work shows low sodium, this is critically low and can cause serious life-threatening illness including . I advised you to be admitted to the hospital for further workup however you refused. You were signing against medical advice as you are aware of the risks and benefits of staying to be admitted to the hospital. If you develop any new or worsening symptoms, please immediately seek emergent care. The orthopedist is recommending that you stay in the walking boot. Please follow-up with them outpatient, call to make an appointment. Prescriptions: New nitrofurantoin monohyd/m-cryst [Macrobid] 100 mg capsule 100 mg PO Q12H 5 Days Qty: 10 0RF Rx Instructions: must administer with a meal/food No Action (DME) Ankle Brace Misc See Rx Instructions .ROUTE .MEDSUPPLY Qty: 1 0RF Rx Instructions: AIRSELECT, STANDARD, MEDIUM (DME) pen needle, diabetic [BD Ultra-Fine Mary Pen Needle] 32 gauge x 5/32 needle See Rx Instructions .ROUTE .MEDSUPPLY Qty: 125 6RF Rx Instructions: As directed four times a day (DME) FreeStyle Todd 3 Sensor Device See Rx Instructions .Route Qty: 2 4RF Rx Instructions: As directed change every 14 days (DME) FreeStyle Todd 2 Sensor Kit See Rx Instructions .ROUTE .COMPLEX Qty: 2 5RF Dose Instruction: USE DIRECTED CHANGE EVERY 14 DAYS Rx Instructions: USE DIRECTED CHANGE EVERY 14 DAYS Breztri Aerosphere 160-9-4.8 mcg/actuation HFA aerosol inhaler 2 inh inhalation BID 30 Days Qty: 10.7 2RF albuterol sulfate [Ventolin HFA] 90 mcg/actuation HFA aerosol inhaler 2 puff INHALATION Q4H PRN (Reason: Shortness Of Breath Or Wheezing) 30 Days Qty: 8.5 1RF levothyroxine [Tirosint] 150 mcg capsule 150 mcg PO DAILY Qty: 30 1RF atorvastatin 40 mg tablet 40 mg PO QAM 90 Days Qty: 90 1RF (DME) FreeStyle Lite Strips Strip See Rx Instructions .ROUTE .MEDSUPPLY Qty: 100 1RF Rx Instructions: As directed qid prn sensor failure, confirm glucose Please dispense as Freestyle PRecision Ronny Mounjaro 7.5 mg/0.5 mL pen injector 7.5 mg subcut QWEEK 28 Days Qty: 2 5RF multivitamin Tablet 1 tab PO DAILY@1200 amitriptyline 10 mg Tablet 10 mg PO BEDTIME lisinopril 10 mg Tablet 10 mg PO BEDTIME benztropine 1 mg Tablet 1 mg PO BID@1200,2100 montelukast 10 mg Tablet 10 mg PO BEDTIME furosemide 40 mg tablet 1 tab PO DAILY prazosin 5 mg capsule 1 cap PO BEDTIME folic acid 1 mg tablet 1 tab PO DAILY atenolol 50 mg tablet 50 mg PO DAILY@1200 melatonin 5 mg tablet 10 mg PO BEDTIME PRN (Reason: insomnia) lurasidone [Latuda] 60 mg tablet 60 mg PO DAILY@0800 Rx Instructions: WITH 350 CALORIE MEAL docusate sodium 100 mg Capsule 100 mg PO DAILY PRN (Reason: Constipation) alendronate 70 mg tablet 1 tab PO MO@0600 hydroxyzine HCl 50 mg tablet 1 - 2 tab PO TID PRN (Reason: Anxiety, Sleep, Agitation) fluticasone propionate 50 mcg/actuation spray,suspension 1 spray intranasal DAILY PRN (Reason: ALLERGIES) diclofenac sodium 1 % gel 2 g topical BID Protocol: Apply to: Apply to: KNEE, ANKLE, BACK lidocaine 5 % Adhesive Patch,Medicated 1 patch TOPICAL DAILY Protocol: Apply to: Apply to: KNEES AND BACK Rx Instructions: leave on most painful area for up to 12 hrs acetaminophen 500 mg Tablet 500 mg PO Q6H PRN (Reason: Pain) quetiapine 100 mg Tablet 100 mg PO DAILY@1200 PRN (Reason: Anxiety) quetiapine 300 mg Tablet 300 mg PO BEDTIME Qty: 30 0RF divalproex 250 mg Tablet Extended Release 24 Hr 750 mg PO BEDTIME Qty: 90 0RF (DME) hospital bed Kit See Rx Instructions .Route Qty: 1 0RF Rx Instructions: Bariatric bed nicotine (polacrilex) 4 mg gum 4 mg PO Q2H PRN (Reason: Nicotine Cravings) prazosin 1 mg capsule 1 mg PO BEDTIME Rx Instructions: tdd 6mg divalproex 250 mg tablet extended release 24 hr 750 mg PO DAILY@1200 cetirizine 10 mg tablet 10 mg PO DAILY PRN (Reason: allergies) Nurtec ODT 75 mg tablet,disintegrating 75 mg PO NEEDED Rx Instructions: no more than 1 tablet per 24 hours nystatin 100,000 unit/gram powder 1 appl topical BID ammonium lactate 12 % lotion 1 appl topical DAILY PRN (Reason: Dry Skin) Rx Instructions: 1 APPLICATION = 2 GRAMS lorazepam 1 mg tablet 1 mg PO DAILY PRN (Reason: panic attack) naproxen 500 mg tablet 500 mg PO BID topiramate 50 mg tablet 50 mg PO DAILY tramadol 50 mg tablet 50 mg PO BID PRN (Reason: Pain) Qty: 60 0RF methocarbamol 750 mg tablet 1,500 mg PO TID PRN (Reason: pain, moderate) Qty: 24 0RF ketorolac 10 mg tablet 10 mg PO Q6H PRN (Reason: pain) Qty: 20 0RF Rx Instructions: maximum total duration of 5 days from all oral, intranasal, or parenteral formulations, patient had an intramuscular dose of Toradol here in the emergency department. (DME) nebulizers Misc See Rx Instructions .Route Rx Instructions: As directed (DME) Oxygen Home Use Kit See Rx Instructions .Route Rx Instructions: As directed cholecalciferol (vitamin D3) 50 mcg (2,000 unit) tablet 50 mcg PO DAILY insulin glargine U-300 conc [Toujeo Max U-300 SoloStar] 300 unit/mL (3 mL) insulin pen 64 unit subcut BEDTIME 90 Days Qty: 21 1RF insulin lispro [Humalog KwikPen Insulin] 100 unit/mL insulin pen See Rx Instructions subcut TIDWMEAL 30 Days Qty: 18 4RF Rx Instructions: 14-24 units subcutaneously 3 times per day with meals; econazole nitrate 1 % cream 1 appl topical BID (DME) FreeStyle Precision Ronny Strips Strip See Rx Instructions .ROUTE .COMPLEX Qty: 100 5RF Dose Instruction: TEST BLOOD SUGAR 4 TIMES A DAY DIRECTED Rx Instructions: TEST BLOOD SUGAR 4 TIMES A DAY DIRECTED Referrals: [facility] Orth[facility] Surgeons [Provider Group] Stand Alone Forms: Against Medical Advice Interventions: ED Discharge Assessment Last Done: 07/02/24 18:25 Print Language: Chilean
[2024-07-02 14:44] VITALS: PULSE 80; O2SAT 96
[2024-07-02 14:46] VITALS: BP 104/73; PULSE 80; RESP 24; TEMP 37; BMI 74.0
[2024-07-02 15:37] LABS: MANUAL DIFF FLAG NO
[2024-07-02 15:39] LABS: Basophils Absolute Auto 0.1 X10*3/uL (0.0-0.2); Basophils Percent Auto 0.7 % (0-2); Eosinophils Absolute Auto 0.3 X10*3/uL (0.0-0.4); Eosinophils Percent Auto 3.1 % (0-4); Hematocrit 29.3 % (37.0-47.0); Hemoglobin 9.6 g/dl (12.0-16.0); Imm Gran Abs Auto 0.11 X10*3/uL (0.00-0.03); Imm Gran Pct Auto 1.3 % (0.0-0.4); Lymphocytes Absolute Auto 2.7 X10*3/uL (1.2-4.9); Lymphocytes Percent Auto 33.6 % (20-40); Mean Corpuscular HGB Conc 32.8 g/dl (31.0-35.0); Mean Corpuscular Hemoglobin 26.8 pg (27.0-33.0); Mean Corpuscular Volume 81.8 fL (80.0-98.0); Mean Platelet Volume 10.3 fL (9.4-12.3); Monocytes Absolute Auto 0.6 X10*3/uL (0.1-1.2); Monocytes Percent Auto 7.2 % (2-11); Neutrophils Absolute Auto 4.4 x10*3/uL (2.0-8.3); Neutrophils Percent Auto 54.1 % (45-73); Platelet Count 308 X10*3/uL (160-400); Red Blood Count 3.58 X10*6/uL (4.20-5.50); Red Cell Distribution Width 16.3 % (11.0-16.0); White Blood Count 8.2 X10*3/uL (4.8-10.8)
[2024-07-02 16:03] LABS: Alanine Aminotransferase 10 U/L (0-31); Anion Gap 15 (12-20); Aspartate Amino Transferase 19 U/L (5-31); Bilirubin Total 0.2 mg/dL (0.0-1.0); Blood Urea Nitrogen 9 mg/dL (9-16); Calcium 9.7 mg/dL (8.4-10.2); Carbon Dioxide 35 mmol/L (22-29); Chloride 82 mmol/L (96-108); Creatinine Clr Calc Pharmacy 182.1; Estimated Glomerular Filt Rate > 60; Glucose Random 133 mg/dL (60-115); Potassium 4.9 mmol/L (3.3-5.1); Sodium 127 mmol/L (135-145)
[2024-07-02 16:25] LABS: Appearance Urine Cloudy; Color Urine Dark Yellow; Glucose Urine UA Negative (Negative); Leukocyte Esterase Urine Large (3+) (Negative); Nitrite Urine Positive (Negative); PH 7.5 (5.0-9.0); Specific Gravity - Urine 1.015 (1.005-1.025); UMIC TRIGGER UACC YES; Urine Blood Trace (Negative); Urine Ketones Negative (Negative); Urine Protein Trace mg/dL (Neg-Trace)
[2024-07-02 16:58] LABS: Bacteria Urine 4+ (None Seen); Hyaline Casts Urine 0-2 /LPF (0-2); Squamous Epithelial Cell Urine 0-2 /HPF (0-2); UACC Culture Trigger YES; WBC Urine >50 /HPF (0-5)
[2024-07-02 17:18] LABS: Alkaline Phosphatase 54 U/L (39-117)
[2024-07-02] MEDS: Nitrofurantoin Monohyd/M-Cryst 100 MG CAPSULE PO (17:41)
[2024-07-02] MEDS: Sodium Chloride Tab 1 GM TABLET PO (17:48)
[2024-07-02 18:25] VITALS: BP 116/78; PULSE 77; RESP 20; TEMP 36.9; O2SAT 96
--- OUTSIDE RECORDS SUMMARY | 2024-07-02 18:43 | XMS_ITS | Encounter Summary ---
Author Organization [employer] Address [address] [place] [address] Care Team Providers Care Data Management Consultant Name Role Phone Toyin Pollard Primary Care Provider Satish Brennan MD Unavailable Jacob Morrow Unavailable [phone] Nicolasa Escobar MD Unavailable [phone] Shen Davis MD Unavailable [phone] Reason for Visit * Reason Onset Date Comments PT1 11/02/2022 Encounter Details Date Type Department Care Team (Late st Contact Info) Description 11/02/2022 Telephone [facility] MEDICINE [address] [place], [place] [phone] Toyin Pollard FNP [address] [place], [place] [phone] PT1 Social History Tobacco Use Types Packs/Day [...] with better life requesting a PT1 Location: [facility] Specialty: Provider or clinic appts Date&Time:n/A Custodian Blood Bank:N/a documented in this encounter Plan of Treatment Upcoming Encounters Date Type Department Care Team (Late st Contact Info) Description 08/05/2024 10:30 AM EDT Office Visit [facility] [address] [place] [address] Toyin Pollard FNP [address] [place] [address] 09/23/2024 11:00 AM EDT Telemedicine [facility] [address] [place] [address] 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, RN [address] [place] [address] documented as of this encounter Visit Diagnoses Not on filedocumented in this encounter Additional Health Concerns Assessment Noted Time PHQ-9 Depression Total Score: 0 09/29/19 23 2:03 PM EDT documented as of this encounter Care Teams Data Management Consultant Relationship Specialty Start Date End Date Toyin Pollard FNP [address] [place] [address] PCP - General Family Medicine 01/11/21 Satish Brennan MD [address] [place] [address] Endocrinology 02/22/24 Jacob Morrow 5 [place] [address] Pulmonary Disease 02/22/24 Nicolasa Escobar MD [address] [place] [address] [place] [address] Neurology 02/22/24 Shen Davis MD [address] [place] [address] Nephrology 02/22/24 Ellyn Connolly Fire Extinguisher TechnicianElectronics Teacher 08/17/23 [facility] 01/11/24 01/21/24 [facility] 01/11/24 documented as of this encounter
--- OUTSIDE RECORDS SUMMARY | 2024-07-02 18:43 | XMS_ITS | Encounter Summary ---
Author Organization [employer] Address [address] [facility] [address] [place] [address] Care Team Providers Care Business Intelligence Administrator Name Role Phone Toyin Pollard Primary Care Provider Satish Brennan MD Unavailable [phone] Jacob Morrow Unavailable [phone] Nicolasa Escobar MD Unavailable Shen Davis MD Unavailable [phone] Reason for Visit * Reason Onset Date Comments Hospital Follow-up 09/19/2022 Encounter Details Date Type Department Care Team (Late st Contact Info) Description 09/19/2022 Telephone [facility] MEDICINE [address] [place] [address] Toyin Pollard FNP [address] [place], [place] [phone] Hospital Follow-up Social History Tobacco Use Types [...] a HDF appt. Pt was admitted at [facility] on 09/08/22 and discharged on 09/16/22. Pt was diagnosed with pneumonia. Please contact dionisio at [phone] documented in this encounter Plan of Treatment Upcoming Encounters Date Type Department Care Team (Late st Contact Info) Description 08/05/2024 10:30 AM EDT Office Visit [facility] MED [facility]ED[facility] [address] [place] [address] Toyin Pollard FNP [address] [place] [address] 09/23/2024 11:00 AM EDT Telemedicine [facility] [address] [place] [address] 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 RN [address] [place], [place] [phone] documented as of this encounter Visit Diagnoses Not on filedocumented in this encounter Care Teams Business Intelligence Administrator Relationship Specialty Start Date End Date Toyin Pollard FNP [address] [place] [address] PCP - General Family Medicine 01/11/21 Satish Brennan MD [address] [place] [address] Endocrinology 02/22/24 Jacob Morrow [address] [place] [address] Pulmonary Disease 02/22/24 Nicolasa Escobar MD [address] [place] [address] [place] [address] Neurology 02/22/[address] Shen [address] MD [address] [place] [address] Nephrology 02/22/24 Ellyn Connolly Fermentation OperatorComputer Tape Librarian 08/17/23 [facility] 01/11/24 01/21/24 [facility] 01/11/24 documented as of this encounter
--- OUTSIDE RECORDS SUMMARY | 2024-07-02 18:43 | XMS_ITS | Encounter Summary ---
Author Organization [employer] Address [address] [facility] [address] [place] [address] Care Team Providers Care Carpenter Maintenance Name Role Phone Toyin Pollard Primary Care Provider Satish Brennan MD Unavailable Jacob Morrow Unavailable [phone] Nicolasa Escobar MD Unavailable Shen Davis MD Unavailable [phone] Reason for Visit * Reason Onset Date Comments Hospital Follow-up 11/06/2023 Encounter Details Date Type Department Care Team (Late st Contact Info) Description 11/06/2023 Telephone [facility] MEDICINE [address] [place] [address] Toyin Pollard FNP [address] [place], [place] [phone] Hospital Follow-up Social History Tobacco Use Types [...] from pt requesting a F appt. Hospital: [facility] Date of admission: 10/25 Discharge date: 11/03 Diagnosed: Ankle injury documented in this encounter Plan of Treatment Upcoming Encounters Date Type Department Care Team (Late st Contact Info) Description 08/05/2024 10:30 AM EDT Office Visit [facility] MED & PEDS [address] [place] [address] Toyin Pollard FNP [address] [place] [address] 09/23/2024 11:00 AM EDT Telemedicine [facility] MED & PEDS [address] [place] [address] 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, RN [address] [place] [address] documented as of this encounter Goals Goal [...] documented as of this encounter Care Teams Carpenter Maintenance Relationship Specialty Start Date End Date Toyin Pollard FNP [address] [place] [address] PCP - General Family Medicine 01/11/21 Satish Brennan MD [address] [facility] [address] [place] [address] Endocrinology 02/22/24 Jacob Morrow 5 [place] [address] Pulmonary Disease 02/22/24 Nicolasa Escobar MD [address] [place] [address] [address] [place] [address] Neurology 02/22/24 Shen Davis MD [address] [place] [address] Nephrology 02/22/24 Ellyn Connolly Principal Gifts OfficerPotato Inspector 08/17/23 [facility] 01/11/24 01/21/24 [facility] 01/11/24 documented as of this encounter
--- OUTSIDE RECORDS SUMMARY | 2024-07-02 18:43 | XMS_ITS | Encounter Summary ---
Author Organization [employer] Address [address] [facility] 7[address] [place] [address] Care Team Providers Care Sap Sd Analyst Name Role Phone Toyin Pollard Primary Care Provider Satish Brennan MD Unavailable Jacob Morrow Unavailable [phone] Nicolasa Escobar MD Unavailable Shen Davis MD Unavailable [phone] Encounter Details Date Type Department Care Team (Late st Contact Info) Description 04/22/2024 Telephone [facility] MEDICINE [address] [place], [place] [phone] Toyin Pollard FNP [address] [place], [place] [phone] Social History Tobacco Use Types Packs/Day Years [...] the past 12 months, has t he drop.io, gas, oil or water company threatened to [...] 10:30 AM EDT Office Visit [facility] MED & PEDS [address] [place] [address] Toyin Pollard FNP [address] [place] [address] 09/23/2024 11:00 AM EDT Telemedicine [facility] MED [facility] [address] [place] [address] 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, MINA [address] [place] [address] documented as of this encounter Goals Goal [...] documented as of this encounter Care Teams Sap Sd Analyst Relationship Specialty Start Date End Date Toyin Pollard FNP [address] [place] [address] PCP - General Family Medicine 01/11/21 Satish Brennan MD [address] [place] [address] Endocrinology 02/22/24 Jacob Morrow 5 [place] [address] Pulmonary Disease 02/22/24 Nicolasa Escobar MD [address] [facility] [address] [place] [address] Neurology 02/22/24 Shen Davis MD [address] [place] [address] Nephrology 02/22/24 Ellyn Connolly PnpInformation Technology Manager 08/17/23 [facility] 01/11/24 documented as of this encounter
--- OUTSIDE RECORDS SUMMARY | 2024-07-02 18:43 | XMS_ITS | Encounter Summary ---
Author Organization [employer] Address [address] [facility] [address] [place] [address] Care Team Providers Care Crisis Intervention Counselor Name Role Phone Toyin Pollard Primary Care Provider Satish Brennan MD Unavailable Jacob Morrow Unavailable [phone] Nicolasa Escobar MD Unavailable Shen Davis MD Unavailable [phone] Reason for Visit * Reason Onset Date Comments PT1 10/04/2022 Encounter Details Date Type Department Care Team (Late st Contact Info) Description 10/04/2022 Telephone [facility]ICINE [address] [place], [place] [phone] Toyin Pollard FNP [address] [place], [place] [phone] PT1 Social History Tobacco Use Types Packs/Day [...] Miscellaneous Notes * Telephone Encounter - Nabila Conit - 10/07/2022 10:48 AM EDT PT 1 Initiated member will receive a letter from with instructions. * Telephone Encounter - Hemalatha Minor - 10/04/2022 12:12 PM EDT GLENDY Hanna from [facility] requesting a pt1 to Location:[address] [place] [address] [address] [place] [address] Specialty: MRI Date&Time: 10/11/22 @ 9am Shrink Pit Supervisor: n/a Pt does uses a scooter documented in this encounter Plan of Treatment Upcoming Encounters Date Type Department Care Team (Late st Contact Info) Description 08/05/2024 10:30 AM EDT Office Visit [facility] [place]S [address] [place] [address] Toyin Pollard FNP [address] [place] [address] 09/23/2024 11:00 AM EDT Telemedicine [facility] [place] [facility] [address] [place] [address] 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, RN [address] [place] [address] documented as of this encounter Visit Diagnoses Not on filedocumented in this encounter Additional Health Concerns Assessment Noted Time PHQ-9 Depression Total Score: 0 09/29/19 23 2:03 PM EDT documented as of this encounter Care Teams Crisis Intervention Counselor Relationship Specialty Start Date End Date Toyin Pollard FNP [address] [place] [address] PCP - General Family Medicine 01/11/21 Satish Brennan MD [address] [place] [address] Endocrinology 02/22/24 Jacob Morrow [address] [place] [address] Pulmonary Disease 02/22/24 Nicolasa Escobar MD [address] [address] Neurology 02/22/24 Shen Davis MD [address] [place] [address] Nephrology 02/22/24 Ellyn Connolly Stove Carriage OperatorAvionics Supervisor 08/17/23 [facility] 01/11/24 01/21/24 [facility] 01/11/24 documented as of this encounter
--- OUTSIDE RECORDS SUMMARY | 2024-07-02 18:43 | XMS_ITS | Clinical Summary ---
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 Role Phone JuddToyin barry LOUIE Primary Care Provider Satish Brennan MD Unavailable Jacob Morrow Unavailable [phone] Nicolasa Escobar MD Unavailable [phone] Shen Davis MD Unavailable [phone] Allergies Active Allergy Reactions Criticality Noted Date Comments Haloperidol Unknown High 03/22/2022 Other reaction(s): Irritable Latex Rash Low 01/14/2021 Metformin Diarrhea,Hives High 01/14/2021 Morphine Itching,Rash Low 02/07/2019 Tetracycline Hives High 03/22/2022 Medications TRUEplus Lancets 33G miscIndications: Type 2 diabetes mellitus with complication ([facility]) 1 Lancet in the morning, at noon, [...] Continuous Glucose Sensor (FreeStyle Todd 2 Sensor) [facility] USE DIRECTED CHANGE EVERY 14 DAYS Active [...] BEDTIME 90 tablet 025 Active nystatin (Nyamyc) 185630 UNIT/GM powderIndication s:Tinea APPLY TOPICALLY TO AFFECTED [...] tablet 3 024 2024 Discontinued nystatin (Nyamyc) 770353 UNIT/GM powderIndication s:Tinea APPLY TOPICALLY TO AFFECTED [...] hypothyroidism 11/15/2022 Overview (11/15/2022): ?? Followed by [facility] Endo Lab Results [...] maintenance 11/10/2022 Overview (08/05/2023): Optometry: followed by [facility], last appt Feb 2021 Mammogram: BIRADS 2 02/21/2019, due. Ordered 11/15/22 Colonoscopy: followed by GI, referral for screening colonoscopy placed 11/15/22. Cologuard negative 03/08/23 Pap: overdue, pt does not recall last pap. Will schedule with [facility] CNM in handicap accessible room Last PE: 07/17/23 Assessment & Plan (07/19/2023 10:15 AM EDT): Labs ordered today, showed hyperkalemia, but with hemolysis Will repeat at next appointment with PCP ADHD 09/28/2022 History of posttraumatic stress disorder (PTSD) 09/28/2022 Migraine 09/28/2022 Assessment & Plan (02/25/2024 6:26 PM EST): - History of migraines, previously using sumatripan. Discontinued with history of NC - Referral to Neuro for further eval and tx 11/15/22 -Nurtec 75mg tablet approval - PA # [id number], exp 02/12/25 - pt reports med effective. Denies med SE Assessment & Plan (08/05/2023 5:08 PM EDT): - History of migraines, previously using sumatripan. Discontinued with history of NC - Referral to Neuro for further eval and tx 11/15/22 -Nurtec 75mg tablet approved May 2023. #[id number] will on 12/17/23 - pt reports med effective. Denies med SE Assessment & Plan (11/15/2022 5:45 PM EDT): - History of migraines, previously using sumatripan. Discontinued with history of NC - PA for Nurtec denied through PCP [...] -Patient will follow outpt Vasc Surg at [facility] - Dr. Canales [...] patient about the risks and harms of shelter opioid use - Pt goal is to [...] patient about the risks and harms of shelter opioid use - Pt goal is to lose enough weight so that she is eligible for gall bladder surgery, was referred to Weight management clinic 10/08/21 Chronic constipation 05/05/2021 COPD (chronic obstructive pulmonary disease) Assessment & Plan (02/25/2024 6:20 PM EST): - Patient continues on supplemental oxygen: 6L/min @ rest or when sitting, and 8L/min when up and moving around. - Following with [facility] Pulmonology - Dr. Morrow - Marycarmen SOB. Denies any fevers, chills, difficulty breathing, cough, or mucous production. Reports that she has enough supplemental O2 at home -Continue with Breztri (kgeubwwrkr-[id number]) BID -Albuterol PRN -DME request for neb machine placed 11/15/22 Assessment & Plan (11/15/2022 5:33 PM EDT): - Patient continues on supplemental oxygen: 6L/min @ rest or when sitting, and 8L/min when up and moving around. - Following with [facility] Pulmonology - Dr. Morrow - Marycarmen SOB. Denies any fevers, chills, difficulty breathing, cough, or mucous production. Reports that she has enough supplemental O2 at home -Continue with Breztri (jjszerlowh-mlewkmkl-rboijmwhri) BID -Albuterol PRN -DME request for neb [...] Plan (02/25/2024 6:25 PM EST): Following with [facility] Endo Continue Mounmatthewro & Jonatan, with goal of weight loss leading to bariatric surgery Lab Results Component Value Date HGBA1C 6.4 (A) 08/02/2023 HGBA1C 6.7 (A) 07/17/2023 HGBA1C 10.4 (A) 03/01/2023 HGBA1C TNP 07/20/2022 HGBA1C 7.8 (H) 01/11/2021 HGBA1C 11.9 (H) 11/11/2019 HGBA1C 11.9 (H) 11/11/2019 A1c: congratulated in improvement with A1c levels Eye exam: due, schedule with [facility] Eye Care Foot exam: referral to podiatry 11/15/22 Dental: encouraged PNA: UTD ACEi/ARB: yes Statin: yes ASA: yes Lifestyle: Encouraged regular movement as able and aerobic exercise for improved glycemic control Encouraged daily foot checks Encouraged lean protein snacks and to avoid foods high in sugar and simple carbohydrates Medications: Per [facility] Endo Toujeo insulin: 64 units at bedtime Humalog 14 units TID AC Mounjaro 7.5mg subcutaneous weekly Treatment Goals: A1c goal: <7% FBG goal: <130 2 hour post prandial goal: <180 Assessment & Plan (08/05/2023 5:09 PM EDT): Following with [facility] Continue Mounjaro & Tochelseyo, with goal of weight loss leading to bariatric surgery Lab Results Component Value Date HGBA1C 6.4 (A) 08/02/2023 HGBA1C 6.7 (A) 07/17/2023 HGBA1C 10.4 (A) 03/01/2023 HGBA1C 7.8 (H) 01/11/2021 HGBA1C 11.9 (H) 11/11/2019 HGBA1C 11.9 (H) 11/11/2019 A1c: congratulated in improvement with A1c levels Eye exam: due, schedule with [facility] Eye Care Foot exam: referral to podiatry 11/15/22 Dental: encouraged PNA: UTD ACEi/ARB: yes Statin: yes ASA: yes Lifestyle: Encouraged regular movement as able and aerobic exercise for improved glycemic control Encouraged daily foot checks Encouraged lean protein snacks and to avoid foods high in sugar and simple carbohydrates Medications: Per [facility] Treatment Goals: A1c goal: <7% FBG goal: <130 2 hour post prandial goal: <180 Assessment & Plan (07/19/2023 10:16 AM EDT): Following with [facility] Jigna Duranunrigo with goal of weight loss leading to bariatric surgery Lab Results Component Value Date HGBA1C 10.4 (A) 03/01/2023 A1c: above goal Eye exam: due, schedule with [facility] Eye Care Foot exam: referral to podiatry 11/15/22 Dental: encouraged PNA: UTD ACEi/ARB: yes Statin: yes ASA: yes Lifestyle: Encouraged regular movement as able and aerobic exercise for improved glycemic control Encouraged daily foot checks Encouraged lean protein snacks and to avoid foods high in sugar and simple carbohydrates Medications: Per [facility] Treatment Goals: A1c goal: <7% FBG goal: <130 2 hour post prandial goal: <180 Assessment & Plan (03/02/2023 4:56 PM EST): Following with [facility] Endo Lab Results Component Value Date HGBA1C 10.4 (A) 03/01/2023 A1c: above goal Eye exam: due, schedule with [facility] Eye [facility] Foot exam: referral to podiatry 11/15/22 Dental: encouraged PNA: UTD ACEi/ARB: yes Statin: yes ASA: yes Lifestyle: Encouraged regular movement as able and aerobic exercise for improved glycemic control Encouraged daily foot checks Encouraged lean protein snacks and to avoid foods high in sugar and simple carbohydrates Medications: ? ? Per [facility] Endo Treatment Goals: A1c goal: <7% FBG goal: <130 2 hour post prandial goal: <180 Assessment & Plan (11/15/2022 5:38 PM EDT): Following with [facility] Endo Lab Results Component Value Date HGBA1C 10.1 (A) 09/28/2022 A1c: above goal Eye exam: due, schedule with [facility] Foot exam: referral to podiatry 11/15/22 Dental: encouraged PNA: UTD ACEi/ARB: yes Statin: yes ASA: does not appear to be taking, although hx of NC. Will refer to [facility] for further eval. Lifestyle: Encouraged regular movement as able and aerobic exercise for improved glycemic control Encouraged daily foot checks Encouraged lean protein snacks and to avoid foods high in sugar and simple carbohydrates Medications: ? ? Per [facility] Endo Treatment Goals: [...] Encounters Date Type Department Care Team Description 07/02/2024 Orders Only [facility] External Provider, [facility] 06/27/2024 10:30 AM EDT Clinical Support [facility] [address] [place] [address] 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 RN Pain 06/27/2024 Refill [facility] [address] [place] [address] 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, MINA Pain; Calculus of gallbladder without cholecystitis without obstruction; Long-term current use of opiate analgesic; Dizziness, nonspecific 06/27/2024 Travel 06/26/2024 Telephone [facility] [address] [place] [address] Toyin Pollard FNP Ambulance transportation 06/18/2024 Refill [facility] [address] [place] [address] Toyin Pollard FNP Seasonal allergies 06/17/2024 Refill [facility] [address] [place] [address] Toyin Pollard FNP 06/06/2024 Refill [facility] [address] [place] [address] Toyin Pollard FNP Tinea 05/31/2024 Population Health Risk Score [facility] Department [address] [place] [address] [phone] Provider, Population Health Generic 05/29/2024 Refill [facility] [address] [place] [address] Toyin Pollard FNP Pain; Calculus of gallbladder without cholecystitis without obstruction; Long-term current use of opiate analgesic 05/27/2024 Refill [facility] [address] [place] [address] Toyin Pollard FNP 05/23/2024 Refill [facility] MEDICINE [address] [place] [phone] Toyin Pollard FNP 05/22/2024 Telephone [facility] [address] [place] [address] Toyin Pollard FNP Appointment Confirmation 05/22/2024 Telephone [facility] MEDICINE [address] [place] [phone] Toyin Pollard FNP Durable Medical Equipment 05/22/2024 Refill [facility] [address] [place] [address] Toyin Pollard FNP 05/21/2024 Telephone [facility] [address] [place] [phone] 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, RN 05/21/2024 Telephone [facility] [address] [place] [phone] 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, RN 05/20/2024 Telephone [facility] [address] [place] [address] Toyin Pollard FNP 05/16/[address] [address] Toyin Pollard FNP Durable Medical Equipment 05/15/2024 Patient Outreach [facility] [address] [place] [address] Toyin Pollard FNP Care Coordination ([facility] outreach for SDOH PT-1 and food needs-referral completed /) 05/15/2024 Telephone [facility] MEDICINE [address] [place] [phone] Toyin Pollard FNP transportation needed 05/15/2024 Telephone [facility] MEDICINE [address] [place] [phone] Toyin Pollard FNP Nurse Triage 05/15/2024 Refill [facility] [address] [place] [address] Toyin Pollard, PRODUCT SUPPORT TECHNICIAN Dizziness, nonspecific 04/30/2024 Refill [facility] [address] [place] [address] Toyin Pollard, PRODUCT SUPPORT TECHNICIAN Smokes cigarettes 04/22/2024 Telephone [facility]INE [address] [place] [address] Toyin Pollard, PRODUCT SUPPORT TECHNICIAN 04/19/2024 Refill [facility] [address] [place] [address] Toyin Pollard, PRODUCT SUPPORT TECHNICIAN Dizziness, nonspecific 04/15/2024 Travel 04/15/2024 Telephone [facility] [address] [place] [address] 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, RN cna pct 04/15/2024 Telephone [facility] MEDICINE [address] [place] [address] Toyin Pollard, PRODUCT SUPPORT TECHNICIAN 04/14/2024 Refill [facility] [address] [place] [address] Toyin Pollard, PRODUCT SUPPORT TECHNICIAN 04/12/2024 Refill [facility] [address] [place] [address] Toyin Pollard, PRODUCT SUPPORT TECHNICIAN Long-term current use of opiate analgesic (Primary Dx); Pain; Calculus of gallbladder without cholecystitis without obstruction 04/04/2024 Orders Only [facility] External Provider, [facility] from Last 3 Months Immunizations Name [...] 10:30 AM EDT Office Visit [facility] [address] [place] [address] Toyin Pollard PRODUCT SUPPORT TECHNICIAN [address] [place] [address] 09/23/2024 11:00 AM EDT Telemedicine [facility] [address] [place] [address] 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, RN [address] [place], [place] [phone] Health Maintenance Due Date Last Done Comments [...] Full Mouth 04/23/2022 04/22/2019 Mammogram 05/27/2022 05/27/2020, 12/07/2018, 02/21/2019 Dental Oral Exam 07/22/2023 01/20/2023, 04/22/2019 [...] 4:30 PM EDT) No Michelle Alegria, Joe Procedures Procedure Name Priority Date/Time Associated Diagnosis Comments URINALYSIS, COMPLETE, WITH REFLEX TO CULTURE Routine 07/02/2024 4:10 PM EDT COMPREHENSIVE METABOLIC PANEL Routine 07/02/2024 3:33 PM EDT XR ANKLE 2 VIEWS RIGHT Routine 3:01 PM EDT XR FOOT 1-2 VIEWS RIGHT Routine 07/02/2024 3:01 PM EDT POCT BAKARI-14 URINE DRUG SCREEN Routine 06/27/2024 11:20 AM EDT Pain XR PELVIS 1-2 VIEWS Routine 05/02/2024 1 2:07 AM EST XR FOOT 3+ VIEWS RIGHT Routine 7:08 PM EST XR ANKLE 3+ VIEWS [...] Recently Relevant to Health Maintenance Results * (ABNORMAL) Urinalysis, Complete, with Reflex to Culture (07/02/2024 4:10 PM EDT) Color Urine Dark Yellow [facility] Appearance Urine Cloudy [facility] PH 7.5 5.0 - 9.0 [facility] Glucose Urine UA Negative Negative mg/dL [facility] Urine Blood Trace(A) Negative [facility] Specific [place] - Urine 1.015 1.005 - 1.025 [facility] Urine Protein Trace Neg-Trace mg/dL [facility] Urine Ketones Negative Negative mg/dL [facility] Nitrite Urine Positive(A) Negative [facility] Leukocyte Esterase Urine Large (3+)(A) Negative [facility] RBC Urine 6-10(A) 0 - 2 /HPF [facility] Urine WBC >50(A) 0 - 5 /HPF [facility] Urine Squamous Epithelial Cell 0-2 0 - 2 /HPF [facility] Urine Bacteria 4+ None Seen [facility] Hyaline Casts, Urine 0-2 0 - 2 /LPF [facility] 07/02/2024 4:10 PM EDT 07/02/2024 4:19 PM EDT Narrative [facility] - 07/02/2024 4:59 PM EDT [id number], Clean Catch us Generic External Data Provider LAB URINE ORDERAB LES Final Result [facility] [address] [place] [address] [phone] * (ABNORMAL) Comprehensive Metabolic Panel (07/02/2024 3:33 PM EDT) Sodium 127(L) 135 - 145 mmol/L [facility] Potassium 4.9 3.3 - 5.1 mmol/L [facility] Chloride 82(L) 96 - 108 mmol/L [facility] Carbon Dioxide 35(H) 22 - 29 mmol/L [facility] Anion Gap 15 12 - 20 [facility] Urea Nitrogen (BUN) 9 9 - 16 mg/dL [facility] Creatinine, Serum 0.67 0.5 - 1.4 mg/dL [facility] Creatinine Clr Calc Pharmacy 182.1 [facility] Comment:Provided height and weight: 167.64 cm,208 kg.eGFR (calculated from the MDRD study equation) and eCrCl(calculated from the Cockcroft-Gault equation) are based ondifferent parameters and may not yield comparable results.If eCrCl result is absurd, please check patient'sheight/weight. Estimated Glomerular Filt Rate >60 [facility] Comment:Chronic Kidney Disea se: Estimated GFR < 60 mL/min/[id number] Kidney Disease: Estimated GFR < 15 mL/min/1.73m2 Glucose 133(H) 60 - 115 mg/dL [facility] Calcium 9.7 8.4 - 10.2 mg/dL [facility] Bilirubin, Total 0.2 0.0 - 1.0 mg/dL [facility] Aspartate Amino Transferase 19 5 - 31 U/L [facility] Alanine Aminotransferase 10 0 - 31 U/L [facility] Total Protein 7.0 6.5 - 8.0 g/dL [facility] Albumin Level 4.0 3.5 - 5.0 g/dL [facility] Alkaline Phosphatase 54 39 - 117 U/L [facility] 07/02/2024 3:33 PM EDT 07/02/2024 3:36 PM EDT us Generic External Data Provider LAB BLOOD ORDERAB LES Final Result [facility] [address] [place] [address] [phone] * XR Foot 1-2 Views Right (07/02/2024 3:01 PM EDT) Anatomical Region Laterality Modality Lower Extremities, Foot Right Radiogra phic Imaging 07/02/2024 3:01 PM EDT Narrative 07/02/2024 3:56 PM EDT ? [facility] ?[address] ?[place] [address] ?XRay Report ? Signed ? Patient: Elle Lopez ?MR#: [id number] ?? 57 ? : 1970 ?Acct:[id number] ? Age/Sex: 54 / F ?ADM Date: 07/02/24 ? Loc: HO.ED ? Attending Dr: ? Ordering Physician: Silvia Jose ?? Date of Service: 07/02/24 ?? Procedure(s): XR foot RT 2V ?? Accession Number(s): [id number] ? cc: [facility]; Silvia Jose ? EXAMINATION: ?? XR FOOT, RIGHT ? CLINICAL INFORMATION: ?? pain, hx of fx ? COMPARISON: ?? April 04, 2024. ? TECHNIQUE: ?? AP, lateral, and oblique views of the right foot. ? FINDINGS: ?? Foreshortening/amputation of the distal phalanx, great toe. ?? Osteopenia versus osteoporosis. ?? Cortical irregularity and lucency in the anterior aspect distal ?? diaphysis metaphysis of the fibula. ?? No subcutaneous emphysema. ?? Degenerative changes in the tarsal bones. ? XR/XR foot RT 2V ?? IMPRESSION: ?? Osteolysis/amputation distal phalanx, great toe. ?? Nonunion fracture, distal fibula. ?? Osteopenia versus osteoporosis. ? Electronically signed by: ??Jose Lopez MD ??07/02/2024 03:53 PM ?? EDT RP ? Dictated By: ?Jose Urias MD ? Signed By: ?<Electronically signed by Jose Dumont MD in OV> ? 07/02/24 1553 ? DD/ 1501 ? TD/TT: 07/02/24 1525 ? Outreach Coordinator: ? Procedure Note Sadiq, Image - 07/02/[address] [address] XRay Report Signed Patient: Elle LopezMR#: [id number] [birth year] : 1970Acct:[id number] Age/Sex: 54 / FADM Date: 07/02/24 Loc: HO.ED Attending Dr: Ordering Physician: Silvia Jose Date of Service: 07/02/24 Procedure(s): XR foot RT 2V Accession Number(s): [id number] cc: [facility]; Silvia Jose EXAMINATION: XR FOOT, RIGHT CLINICAL INFORMATION: pain, hx of fx COMPARISON: April 04, 2024. TECHNIQUE: AP, lateral, and oblique views of the right foot. FINDINGS: Foreshortening/amputation of the distal phalanx, great toe. Osteopenia versus osteoporosis. Cortical irregularity and lucency in the anterior aspect distal diaphysis metaphysis of the fibula. No subcutaneous emphysema. Degenerative changes in the tarsal bones. XR/XR foot RT 2V IMPRESSION: Osteolysis/amputation distal phalanx, great toe. Nonunion fracture, distal fibula. Osteopenia versus osteoporosis. Electronically signed by: Jose Lopez MD 07/02/2024 03:53 PM EDT Dictated By: Jose Urias MD Signed By: <Electronically signed by Jose Dumont MDin OV> 07/02/24 1553 DD/ 1501 TD/TT: 07/02/24 1525 Outreach Coordinator: [facility] External Provider IMG XR PROCEDURES Final Result * XR Ankle 2 Views Right (07/02/2024 3:01 PM EDT) Anatomical Region Laterality Modality Lower Extremities, Ankle Right Radiogr aphic Imaging 07/02/2024 3:01 PM EDT Narrative 07/02/2024 3:58 PM EDT ? [place] [facility] ?[address] ?[place] [address] ?XRay Report ? Signed ? Patient: John,Elle ?MR#: [id number] ?? 57 ? : 1970 ?Acct:[id number] ? Age/Sex: 54 / F ?ADM Date: 07/02/24 ? Loc: HO.ED ? Attending Dr: ? Ordering Physician: Silvia Jose ?? Date of Service: 07/02/24 ?? Procedure(s): XR ankle RT 2V ?? Accession Number(s): [id number] ? cc: [facility]; Silvia Jose ? EXAMINATION: ?? XR ANKLE, RIGHT ? CLINICAL INFORMATION: ?? pain, hx of fx ? COMPARISON: ?? April 04, 2024. ? TECHNIQUE: ?? 2 views of the right ankle. ? FINDINGS: ?? Nonunion fracture with the minimal callus formation and distal fibula. ?? Degenerative changes in the ankle and tarsal bones. Osteopenia versus ?? osteoporosis. ?? Deformity of the lateral malleolus. ?? No subcutaneous emphysema. ?? Plantar calcaneal spur. ? XR/XR ankle RT 2V ?? IMPRESSION: ?? Nonunion fracture, distal fibula.. ?? Degenerative changes. ?? Superimposed osteomyelitis cannot be excluded. ? Electronically signed by: ??Jose Lopez MD ??07/02/2024 03:56 PM ?? EDT RP ? Dictated By: ?Jose Urias MD ? Signed By: ?<Electronically signed by Jose Dumont MD in OV> ? 07/02/24 1556 ? DD/ 1501 ? TD/TT: 07/02/24 1525 ? Outreach Coordinator: ? Procedure Note Anoop Babcock - 07/02/[address] [address] XRay Report Signed Patient: Elle LopezMR#: [id number] 57 : 1970Acct:[id number] Age/Sex: 54 / FADM Date: 07/02/24 Loc: HO.ED Attending Dr: Ordering Physician: Silvia Jose Date of Service: 07/02/24 Procedure(s): XR ankle RT 2V Accession Number(s): [id number] cc: [facility]; Silvia Jose EXAMINATION: XR ANKLE, RIGHT CLINICAL INFORMATION: pain, hx of fx COMPARISON: April 04, 2024. TECHNIQUE: 2 views of the right ankle. 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 Degenerative changes in the ankle and tarsal bones. Osteopenia versus osteoporosis. Deformity of the lateral malleolus. No subcutaneous emphysema. Plantar calcaneal spur. XR/XR ankle RT 2V IMPRESSION: Nonunion fracture, distal fibula.. Degenerative changes. Superimposed osteomyelitis cannot be excluded. Electronically signed by: Jose Lopez MD 07/02/2024 03:56 PM EDT RP Dictated By: Jose Urias MD Signed By: <Electronically signed by Jose Dumont MDin OV> 07/02/24 1556 DD/ 1501 TD/TT: 07/02/24 1525 Outreach Coordinator: [facility] External Provider IMG XR PROCEDURES Final Result * POCT BAKARI-14 Urine Drug Screen (06/27/2024 11:20 AM EDT) TCA, Urine Positive Urine Urine specimen obtained by clean catch procedure / Unknown 06/27/2024 11:20 AM EDT Narrative 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, RN - 06/27/2024 11:20 AM EDT Lot# [id number] Exp: 11-06-25 Toyin Pollard PRODUCT SUPPORT TECHNICIAN POINT OF CARE TEST ENTER/EDIT ORDERABLES Final Result * XR Pelvis 1-2 Views (05/02/2024 12:07 AM EST) Anatomical Region Laterality Modality Body, Pelvis Radiographic Padmini ging 05/02/2024 12:0 7 AM EST Narrative 05/02/2024 12:10 AM EST ? [facility] ?[address] ?[place] [address] ?XRay Report ? Signed ? Patient: John,Elle ?MR#: [id number] ?? 57 ? : 1970 ?Acct:[id number] ? Age/Sex: 54 / F ?ADM Date: 05/01/24 ? Loc: HO.ED ? Attending Dr: ? Ordering Physician: Layne Chambers ?? Date of Service: 05/01/24 ?? Procedure(s): XR pelvis 1-2V ?? Accession Number(s): [id number] ? cc: Layne Chambers; [facility] ? CLINICAL HISTORY: pain, fx? Pelvis, 1 view ? COMPARISON: Portions of CT/SR - CT ABDOMEN PELVIS W IV CON - 09/12/22 11:37 ?? EDT ? FINDINGS: ?? No acute fracture. No dislocation. ?? Unremarkable soft tissues. ? IMPRESSION: ?? No acute findings. ? This document has been electronically signed by: Eren Tolbert MD on ?? 05/02/2024 00:07:20 ? Dictated By: ?Eren Tolbert MD ? Signed By: ?<Electronically signed by Eren Tolbert MD in OV> ?05/02/24 0008 ? DD/ ? TD/TT: 05/02/246 ? Outreach Coordinator: ? Procedure Note Dondion, Image - 05/02/2024 [place] [address] XRay Report Signed Patient: Alis Lopez#: [id number] 57 : 1970Acct:[id number] Age/Sex: 54 / FADM Date: 05/01/24 Loc: HO.ED Attending Dr: Ordering Physician: Layne Chambers Date of Service: 05/01/24 Procedure(s): XR pelvis 1-2V Accession Number(s): [id number] cc: Layne Chambers; [facility] CLINICAL HISTORY: pain, fx? Pelvis, 1 [...] signed by Eren Tolbert MD in OV> 05/02/248 DD/ TD/TT: 05/02/246 Outreach Coordinator: [facility] External Provider IMG XR PROCEDURES Final Result * XR Foot 3+ Views Right (04/04/2024 7:08 PM EST) Anatomical Region Laterality Modality Lower Extremities, Foot Right Radiogra phic Imaging 04/04/2024 7:08 PM EST Narrative 04/04/2024 7:10 PM EST ? [facility] ?[address] ?[place] [address] ?XRay Report ? Signed ? Patient: JohnElle ?MR#: [id number] ?? 57 ? : 1970 ?Acct:[id number] ? Age/Sex: 54 / F ?ADM Date: 04/04/24 ? Loc: HO.ED ? Attending Dr: ? Ordering Physician: Silvia Jose ?? Date of Service: 04/04/24 ?? Procedure(s): XR foot RT min 3V ?? Accession Number(s): [id number] ? cc: [facility]; Silvia Jose ? CLINICAL HISTORY: pain [...] radiopaque retained ?? foreign body in the kuofk-rr-adtm. ? IMPRESSION: ?? 1. Fragments about imaged [...] ? DD/ 07 ? TD/TT: 04/04/241907 ? Outreach Coordinator: ? Procedure Note Donotuseinterpreter, Image - 04/04/[address] [address] XRay Report Signed Patient: Elle LopezMR#: [id number] 57 : 1970Acct:[id number] Age/Sex: 54 / FADM Date: 04/04/24 Loc: HO.ED Attending Dr: Ordering Physician: Silvia Jose Date of Service: 04/04/24 Procedure(s): XR foot RT min 3V Accession Number(s): [id number] cc: [facility]; Silvia Jose CLINICAL HISTORY: pain 3 [...] No radiopaque retained foreign body in the ydwrw-do-bkfc. IMPRESSION: 1. Fragments about imaged ankle are [...] in OV> 04/04/241908 DD/ 07 TD/TT: 04/04/241907 Outreach Coordinator: us [facility] External Provider IMG XR PROCEDURES Final Result * XR Ankle 3+ Views Right (04/04/2024 7:05 PM EST) Anatomical Region Laterality Modality Lower Extremities, Ankle Right Radiogr aphic Imaging 04/04/2024 7:05 PM EST Narrative 04/04/2024 7:06 PM EST ? [facility] ?[address] ?[place], [place] [address] ?XRay Report ? Signed ? Patient: Elle Lopez ?MR#: [id number] ?? 57 ? : 1970 ?Acct:[id number] ? Age/Sex: 54 / F ?ADM Date: 04/04/24 ? Loc: HO.ED ? Attending Dr: ? Ordering Physician: Silvia Jose ?? Date of Service: 04/04/24 ?? Procedure(s): XR ankle RT min 3V ?? Accession Number(s): [id number] ? cc: [facility]; Silvia Jose ? CLINICAL HISTORY: pain [...] in OV> ? 04/04/24 1906 ? DD/ 1905 ? TD/TT: 04/04/24 1905 ? Outreach Coordinator: ? Procedure Note Sadiq, Image - 04/04/2024 [place] [address] [place] [address] XRay Report Signed Patient: Elle LopezMR#: [id number] 57 : 1970Acct:[id number] Age/Sex: 54 / FADM Date: 04/04/24 Loc: HO.ED Attending Dr: Ordering Physician: Silvia Jose Date of Service: 04/04/24 Procedure(s): XR ankle RT min 3V Accession Number(s): [id number] cc: [facility]; Silvia Jose CLINICAL HISTORY: pain 3 [...] in OV> 04/04/241905 DD/ 04 TD/TT: 04/04/241904 Outreach Coordinator: us [facility] External Provider IMG XR PROCEDURES Final Result * (ABNORMAL) POCT HGB A1C (08/02/2023 4:30 PM EDT) Hemoglobin A1C 6.4(A) 4.0 - 6.0 % QC Media Lot # [id number] Lot# Expiration Date [id number] Blood 08/02/2023 4:30 PM EDT Toyin Pollard PRODUCT SUPPORT TECHNICIAN POINT OF CARE TEST ENTER/EDIT ORDERABLES Final Result * Hepatitis C Antibody with Reflex to HCV, RNA, Quantitative, Real-Time PCR (07/19/2023 12:30 PM EDT) Hepatitis C Antibody Nonreactive Nonreactive [facility] Comment:Antibodies to HCV no t detected; does not exclude early acuteHCV infection. Blood Venous blood specimen / Unknown 07/19/2023 12:30 PM EDT 07/19/2023 1:00 PM EDT Agustina Toribio MD LAB BLOOD ORDERABLES Final Res ult [facility] [address] [place] [phone] * HIV-1/2 Antigen and Antibodies, Fourth Generation, with Reflexes (07/19/2023 12:30 PM EDT) Pathologist [facility] HIV AB/AG Nonreactive Nonreactive [facility] Comment:HIV-1 p24 Ag and/or HIV-1/HIV-2 Ab not detected.A test result that is nonreactive does not exclude thepossibility of exposure to or infection with HIV-1 and/orHIV-2. Nonreactive results in this assay for individualswith prior exposure to HIV-1 and/or HIV-2 may be due toantigen and antibody levels that are below the limit ofdetection of this assay.The Image Metricsnity HIV Ag/Ab Combo assay result andsupplemental assay results should be interpreted inconjunction with the patient's clinical presentation,history and other laboratory results. If the results areinconsistent with clinical evidence, additional testing issuggested to confirm the result. Blood Venous blood specimen / Unknown 07/19/2023 12:30 PM EDT 07/19/2023 1:00 PM EDT us Agustina Toribio MD LAB BLOOD ORDERABLES Final Res ult [facility] [address] [place] [address] [phone] * (ABNORMAL) Lipid Panel, Standard (07/17/2023 4:09 PM EDT) Triglycerides 171(H) <150 mg/dL [facility] Comment:Desirable Triglyceri de: less than 150 mg/dLBorderline High Triglyceride 150-199 mg/dLHigh Triglyceride: 200-499 mg/dLVery High Triglyceride: greater than or equal to 5OO mg/dL Cholesterol 176 <200 mg/dL [facility] Comment:Desirable Cholestero l: less than 200 mg/dLBorderline High Cholesterol: 200-239 mg/dLHigh Cholesterol: greater than 239 mg/dL LDL Cholesterol Calculated 77 <100 mg/dL [facility] Comment:Desirable LDL: less than 100 mg/dLNear Optimal/Above Optimal LDL: 110- 129 mg/dLBorderline High LDL: 130-159 mg/dLHigh LDL: 160-189 mg/dLVery High LDL: greater than or equal to 190 mg/dL HDL Cholesterol 65 >40 mg/dL [facility] Comment:Desirable HDL: great er than 40 mg/dL Note: This HDL assay may give artificially low results in patients with liver disease. Blood Venous blood specimen / Unknown 07/17/2023 4:09 PM EDT 07/17/2023 5:46 PM EDT us Agustina Toribio MD LAB BLOOD ORDERABLES Final Res ult [facility] [address] [place] [phone] [phone] * Cologuard?? colon cancer screening (03/08/2023 3:30 PM EST) Cologuard Result Negative Negative 03/16/20 9:24 AM EST [facility] (CLIA #:[id number]) Comment: NEGATIVE TEST RESULT. A negative Cologuard [...] cancer. ??Following a negative Cologuard result, the [place] Cancer Society and U.S. Multi-Society Task Force screening guidelines recommend a Cologuard re-screening interval of 3 years. References: [place] Cancer Society Guideline for Colorectal Cancer Screening: https://www.cancer.org/cancer/ptefh-yefhph-zcyeig/zkauewjkt-tsecjjnka-anxgfay/ac s-rec ommendations.html.; Miguel DK, Maria Elena CR, Lester MaherK, Colorectal Cancer Screening: Recommendations for Physicians and Patients from the U.S. Multi-Society Task Force on Colorectal Cancer Screening , Am J Gastroenterology 2017; 112:8484-8748. TEST DESCRIPTION: Composite algorithmic analysis of stool [...] (Kevin Davis al, N Engl J Med 2014;370(14):6080-3470.) Cologuard may produce a false negative or false positive result (no colorectal cancer or precancerous polyp present at colonoscopy follow up). A negative Cologuard test result does not guarantee the absence of CRC or advanced adenoma (pre-cancer). The current Cologuard screening interval is every 3 years. ([place] Cancer Society and U.S. Multi-Society Task Force). Cologuard performance data in a 10,000 patient pivotal study using colonoscopy as the reference method can be accessed at the following location: www.Microco.sm/results. Additional description of the Cologuard test process, warnings and precautions can be found at www.cologLast Sizerd.com. Stool specimen (specimen) 03/08/2023 3:30 PM EST 03/09/2023 7:12 PM EST Toyin Pollard [facility] MOLECULAR DIAGNOSTICS DRE FRY Final Result [facility] (CLIA #:[id number]) [place] [address], * Mammography Report 1 (05/27/2020 2:30 PM [...] MD LAB URINE ORDERABLES Final Resul t [facility] [address] * HPV mRNA E6/E7 (02/20/2019 8:58 AM EST) HPV mRNA E6/E7 Not Detected NOT DETECTED [facility] Comment: This test was performed using the APTIMA(R) HPV Assay ([employer] This assay detects E6/E7 viral messenger RNA (mRNA) from 14 high-risk HPV types (16,18,31,33,35,39,45,51, 52,56,58,59,66,68). For additional information please refer to: http://education.NextStep.io.Digium/faq/YYD403j6 (This link is being provided for informational/ educational purposes only.) The analytical performance characteristics of this assay have been determined by [employer] [place], [place]. The modifications have not been cleared or approved by the FDA. This assay has been validated pursuant to the CLIA regulations and is used for clinical purposes. Test Performed by [facility], [facility], [address] [place] [address] Randy Willson M.D., Ph.D., Director of Laboratories , [place] [id number] Please note: ??Effective 11/30/2015, HPV testing will be performed using [employer]'s APTIMA test which targets mRNA. Detecting mRNA instead of DNA, as in older methods, offers significant improvements in specificity. 02/20/2019 8:58 AM EST us Carina Fontaine CNM HISTORICAL/NON ORDERABLE LABS Final Result [facility] [address] from Last 3 Months or Most Recently Relevant to Health Maintenance Insurance [facility] C[facility] MEDICAID STAND ADULT Care Teams Veneer Production Machine Operator Relationship Specialty Start Date End Date Toyin Pollard FNP [address] [place] [address] PCP - General Family Medicine 01/11/21 Satish Brennan MD [address] [place] [address] Endocrinology 02/22/24 Jacob Morrow [address] [place] [address] Pulmonary Disease 02/22/24 Nicolasa Escobar MD [address] [place] [address] [place] [address] Neurology 02/22/24 Shen Davis MD [address] [place] [address] Nephrology 02/22/24 Ellyn Connolly Manager FoodMail Clerk Bills 08/17/23 [facility] 01/11/24
--- OUTSIDE RECORDS SUMMARY | 2024-07-02 18:43 | XMS_ITS | Encounter Summary ---
Author Organization [employer] Address [address] [place] [address] 7t [place] [address] Care Team Providers Care Infrastructure Software Engineer Name Role Phone Toyin Pollard Primary Care Provider Satish Brennan MD Unavailable Jacob Morrow Unavailable [phone] Nicolasa Escobar MD Unavailable [phone] Shen Davis MD Unavailable [phone] Reason for Visit * Reason Onset Date Comments MRI order 10/03/2022 FYI 10/03/2022 Encounter Details Date Type Department Care Team (Late st Contact Info) Description 10/03/2022 Telephone [facility] [address] [place], [place] [phone] Toyin Pollard FNP [address] [place], [place] [phone] MRI order ; Social History Tobacco Use [...] - 10/03/2022 2:16 PM EDT Tc from [facility] MRI Dept retail shift supervisor would like to inform PCP that pt was unable to get MRI done ,due to being a closed scanner , States will be faxing order to [facility] since they have a MRI scanner that is open. Advised will leave message as a FYI if any questions or concerns please contact at [phone] * Telephone Encounter - Azalea Guerrero RN - 10/03/2022 2:05 PM EDT [facility] received updated order. * Telephone Encounter - Clara Simmons - 10/03/2022 9:34 AM EDT Tc from racheal with [facility] requesting a new order for MRI abdomin. States MRI has to be MRI abdomin with and without contrast. She is also requesting a call in regards to ct scan done at [facility]. Please contact racheal at [phone] Fax number: [phone] documented in this encounter Plan of Treatment Upcoming Encounters Date Type Department Care Team (Late st Contact Info) Description 08/05/2024 10:30 AM EDT Office Visit [facility] MED & PEDS [address] [place] [address] Toyin Pollard FNP [address] [place] [address] 09/23/2024 11:00 AM EDT Telemedicine [facility] PEDS [address] [place] [address] 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, MINA [address] [place] [address] documented as of this encounter Visit Diagnoses Not on filedocumented in this encounter Additional Health Concerns Assessment Noted Time PHQ-9 Depression Total Score: 0 09/29/19 23 2:03 PM EDT documented as of this encounter Care Teams Infrastructure Software Engineer Relationship Specialty Start Date End Date Toyin Pollard FNP [address] [place] [address] PCP - General Family Medicine 01/11/21 Satish Brennan MD [address] [place] [address] Endocrinology 02/22/24 Jacob Morrow 5 [place] [address] Pulmonary Disease 02/22/24 Nicolasa Escobar MD [address] [place] [address] Dr [address]on [address] [place] [address] Neurology 02/22/24 Shen Davis MD [address] [place] [address] Nephrology 02/22/24 Ellyn Connolly [employer] Learning Support TeacherShingle Grader 08/17/23 [facility] 01/11/24 01/21/24 [facility] 01/11/24 documented as of this encounter
--- OUTSIDE RECORDS SUMMARY | 2024-07-02 18:44 | XMS_ITS | Encounter Summary ---
Author Organization [employer] Address [address] [facility] 7t [place] [address] Care Team Providers Care Open Hearth Stockyard Supervisor Name Role Phone JuddToyin barry LOUIE Primary Care Provider [phone] Satish Brennan MD Unavailable [phone] Jcaob Morrow Unavailable [phone] Nicolasa Escobar MD Unavailable Shen Davis MD Unavailable [phone] Encounter Details Date Type Department Care Team (Late st Contact Info) Description 07/20/2023 Orders Only [facility] [address] [place], [place] [phone] Agustina Toribio MD [address] [place], [place] [phone] Hyperkalemia (Primary Dx) Social History Tobacco Use [...] AM EDT Office Visit [facility] PED[facility] [address] [place] [address] Toyin Pollard FNP [address] [place] [address] 09/23/2024 11:00 AM EDT Telemedicine [facility] [address] [place] [address] 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, RN [address] [place] [address] Scheduled Orders Name Type Priority Associated Diagnoses [...] documented as of this encounter Care Teams Open Hearth Stockyard Supervisor Relationship Specialty Start Date End Date Toyin Pollard FNP [address] [place] [address] PCP - General Family Medicine 01/11/21 Satish Brennan MD [address] [place] [address] Endocrinology 02/22/24 Jacob Morrow 5 [place] [address] Pulmonary Disease 02/22/24 Nicolasa Escobar MD [address] [place] [address] [place] [address] Neurology 02/22/24 Shen Davis MD [address] [place] [address] Nephrology 02/22/24 Ellyn Connolly Automotive Parts Counter AssociatePressure Tester 08/17/23 [facility] 01/11/24 01/21/24 [facility] 01/11/24 documented as of this encounter
--- OUTSIDE RECORDS SUMMARY | 2024-07-02 18:44 | XMS_ITS | Encounter Summary ---
Author Organization [employer] Address [address] [facility] 7t [place] [address] Care Team Providers Care Crown Blocker Name Role Phone Toyin Pollard Primary Care Provider Satish Brennan MD Unavailable Jacob Morrow Unavailable [phone] Nicolasa Escobar MD Unavailable Shen Davis MD Unavailable [phone] Reason for Visit * Reason Onset Date Comments Durable Medical Equipment 12/19/2023 Encounter Details Date Type Department Care Team (Late st Contact Info) Description 12/19/2023 Telephone [facility] [address] [place], [place] [phone] Toyin Pollard FNP [address] [place], [place] [phone] Durable Medical Equipment Social History Tobacco Use [...] 12/19/2023 10:27 AM EDT Tc from [facility] caseworker calling to see if DME can be which to mass surgical supply due to [facility] not doing delivery. DME Disposable bed pads documented in this encounter Plan of Treatment Upcoming Encounters Date Type Department Care Team (Late st Contact Info) Description 08/05/2024 10:30 AM EDT Office Visit [facility] [address] [place] [address] Toyin Pollard FNP [address] [place] [address] 09/23/2024 11:00 AM EDT Telemedicine [facility] [address] [place] [address] 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, RN [address] [place] [address] documented as of this encounter Goals Goal [...] documented as of this encounter Care Teams Crown Blocker Relationship Specialty Start Date End Date Toyin Pollard FNP [address] [place] [address] PCP - General Family Medicine 01/11/21 Satish Brennan MD [address] [place] [address] Endocrinology 02/22/24 Jacob Morrow 5 [place] [address] Pulmonary Disease 02/22/24 Nicolasa Escobar MD [address] [place] [address] Dr Kameron [address] [place] [address] Neurology 02/22/24 Shen Davis MD [address] [place] [address] Nephrology 02/22/24 Ellyn Connolly Paper And Pulp Mill WorkerCaser Up 08/17/23 [facility] 01/11/24 01/21/24 [facility] 01/11/24 documented as of this encounter
--- OUTSIDE RECORDS SUMMARY | 2024-07-02 18:44 | XMS_ITS | Encounter Summary ---
Author Organization [employer] Address [address] [facility] 7t [place] [address] Care Team Providers Care Life Insurance Sales Name Role Phone Toyin Pollard Primary Care Provider Satish Brennan MD Unavailable Jacob Morrow Unavailable [phone] Nicolasa Escobar MD Unavailable Shen Davis MD Unavailable [phone] Reason for Visit * Reason Onset Date Comments Durable Medical Equipment 07/06/2022 Encounter Details Date Type Department Care Team (Late st Contact Info) Description 07/06/2022 Telephone [facility] [address] [place] [address] Toyin Pollard FNP [address] [place], [place] [phone] Durable Medical Equipment Social History Tobacco Use [...] [facility] [address] [place] [address] Toyin Pollard FNP [address] [place] [address] 09/23/2024 11:00 AM EDT Telemedicine [facility] MED & PEDS [address] [place] [address] 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 RN [address] [place] [address] documented as of this encounter Visit Diagnoses Not on filedocumented in this encounter Care Teams Life Insurance Sales Relationship Specialty Start Date End Date Toyin Pollard FNP [address] [place] [address] PCP - General Family Medicine 01/11/21 Satish Brennan MD [address] [facility] [address] [place] [address] Endocrinology 02/22/24 Jacob Morrow 5 [place] [address] Pulmonary Disease 02/22/24 Nicolasa Escobar MD [address] [place] [address] Dr Kameron 140 [place] [address] Neurology 02/22/24 Shen Davis MD [address] [place] [address] Nephrology 02/22/24 Ellyn Connolly Refinery Operator Vapor Recovery UnitFlight Control Manager 08/17/23 [facility] 01/11/24 01/21/24 [facility] 01/11/24 documented as of this encounter
--- OUTSIDE RECORDS SUMMARY | 2024-07-02 18:44 | XMS_ITS | Encounter Summary ---
Author Organization [employer] Address [address] [facility] 7t [place] [address] Care Team Providers Care Director Industrial Relations Name Role Phone Toyin Pollard Primary Care Provider Satish Brennan MD Unavailable Jacob Morrow Unavailable [phone] Nicolasa Escobar MD Unavailable [phone] Shen Davis MD Unavailable [phone] Encounter Details Date Type Department Care Team (Late Contact Info) Description 05/24/2022 Abstract [facility] [address] [place] [address] Toyin Pollard FNP [address] [place], [place] [phone] Social History Tobacco Use Types Packs/Day Years [...] Upcoming Encounters Date Type Department Care Team ([facility] Contact Info) Description 08/05/2024 10:30 AM EDT Office [facility] PEDS [address] [place] [address] Toyin Pollard FNP [address] [place] [address] 09/23/2024 11:00 AM EDT Telemedicine [facility] [address] [place] [address] 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, MINA [address] [place] [address] documented as of this encounter Visit Diagnoses Not on filedocumented in this encounter Care Teams Director Industrial Relations Relationship Specialty Start Date End Date Toyin Pollard FNP [address] [place] [address] PCP - General Family Medicine 01/11/21 Satish Brennan MD [address] [place] [address] Endocrinology 02/22/24 Jacob Morrow 5 [place] [address] Pulmonary Disease 02/22/24 Nicolasa Escobar MD [address] [place] [address] Neurology 02/22/24 Shen Davis MD [address] [facility] [address] [place] [address] Nephrology 02/22/24 Ellyn Connolly Demand Generator ManagerTavern Car Attendant 08/17/23 [facility] 01/11/24 01/21/24 [facility] 01/11/24 documented as of this encounter
--- OUTSIDE RECORDS SUMMARY | 2024-07-02 18:44 | XMS_ITS | Encounter Summary ---
Author Organization [employer] Address [address] [facility] 7t [place] [address] Care Team Providers Care Blue Split Trimmer Name Role Phone Toyin Pollard LUOIE Primary Care Provider [phone] Satish Brennan MD Unavailable [phone] Jacob Morrow Unavailable [phone] Nicolasa Escobar MD Unavailable Shen Davis MD Unavailable [phone] Encounter Details Date Type Department Care Team ([facility] Contact Info) Description 05/23/2022 Orders Only [facility] [address] [place] [address] Ellyn Chery LPN Social History Tobacco Use [...] Upcoming Encounters Date Type Department Care Team ([facility] Contact Info) Description 08/05/2024 10:30 AM EDT Office Visit [facility] [address] [place] [address] Toyin Pollard FNP [address] [place] [address] 09/23/2024 11:00 AM EDT Telemedicine [facility] [address] [place] [address] 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, RN [address] [place] [address] documented as of this encounter Visit Diagnoses Not on filedocumented in this encounter Care Teams Blue Split Trimmer Relationship Specialty Start Date End Date Toyin Pollard FNP [address] [place] [address] PCP - General Family Medicine 01/11/21 Satish Brennan MD [address] [facility] [address] [facility] [address] [place] [address] Endocrinology 02/22/24 Jacob Morrow 5 [place] [address] Pulmonary Disease 02/22/24 Nicolasa Escobar MD [address] [place] [address] Neurology 02/22/24 Shen Davis MD [address] [facility] 302 [place] [address] Nephrology 02/22/24 Ellyn Connolly Trailers [employer] SalespersonCritical Care Cns 08/17/23 [facility] 01/11/24 01/21/24 [facility] 01/11/24 documented as of this encounter
--- OUTSIDE RECORDS SUMMARY | 2024-07-02 18:44 | XMS_ITS | Encounter Summary ---
Author Organization [employer] Address 75 [facility] 7t [place] [address] Care Team Providers Care Popcorn Machine Operator Name Role Phone Toyin Pollard Primary Care Provider [phone] Satish Brennan MD Unavailable Jacob Morrow Unavailable [phone] Nicolasa Escobar MD Unavailable [phone] Shen Davis MD Unavailable [phone] Reason for Visit * Reason Onset Date Comments Referral 01/08/2024 Encounter Details Date Type Department Care Team ([facility] st Contact Info) Description 01/08/2024 Telephone [facility] MEDICINE 230 [place] [address] Toyin Pollard FNP 505 [place], [place] [phone] Referral Social History Tobacco Use Types Packs/Day [...] - 01/08/2024 2:01 PM EDT Tc from [facility] Jennifer from [facility] . Amanda indicates they will process the referral for mpt therapy. documented in this encounter Plan of Treatment Upcoming Encounters Date Type Department Care Team ([facility] st Contact Info) Description 08/05/2024 10:30 AM EDT Office Visit [facility] MED & PEDS 505 [place] [address] Toyin Pollard FNP 505 [place] [address] 09/23/2024 11:00 AM EDT Telemedicine [facility] MED & PEDS 505 [place] [address] 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, RN 505 [place] [address] documented as of this encounter Goals Goal [...] documented as of this encounter Care Teams Popcorn Machine Operator Relationship Specialty Start Date End Date Toyin Pollard FNP [address] [place] [address] PCP - General Family Medicine 01/11/21 Satish Brennan MD [address] [facility] 104 [place] [address] Endocrinology 02/22/24 Jacob Morrow 5 [place] [address] Pulmonary Disease 02/22/24 Nicolasa Escobar MD [address] [place] [address] Neurology 02/22/24 Shen Davis MD [address] [facility] 302 [place] [address] Nephrology 02/22/24 Ellyn Connolly Dandy TenderAssistant Store Leader 08/17/23 [facility] 01/11/24 01/21/24 [facility] 01/11/24 documented as of this encounter
--- OUTSIDE RECORDS SUMMARY | 2024-07-02 18:44 | XMS_ITS | Encounter Summary ---
Author Organization [employer] Address 75 [facility] 7t [place] [address] Care Team Providers Care Alteration Tailor Apprentice Name Role Phone Toyin Pollard Primary Care Provider Satish Brennan MD Unavailable [phone] Jacob Morrow Unavailable [phone] Nicolasa Escobar MD Unavailable [phone] Shen Davis MD Unavailable [phone] Reason for Visit * Reason Onset Date Comments ER Follow-up 06/06/2023 Encounter Details Date Type Department Care Team (Late st Contact Info) Description 06/06/2023 Telephone [facility] MEDICINE 230 [place] [address] Toyin Pollard FNP 505 [place], [place] [phone] ER Follow-up Social History Tobacco Use Types [...] provided by ED. Pt requested appt at [place] and scheduled pt with Dr. Franko Monet for 06/11 at 3:45 pm. Pt verbalized understanding and agreement with plan. * Telephone Encounter - Joseph Lopez - 06/06/2023 3:51 PM EDT Patient calling to report ED visit on : Date: 06/04 Hospital: [facility] Seen for: COPD and bronchitis Patient advised will forward to team nurse for follow up documented in this encounter Plan of Treatment Upcoming Encounters Date Type Department Care Team ([facility] st Contact Info) Description 08/05/2024 10:30 AM EDT Office Visit [facility] MED & PEDS 505 [place], [place] [phone] Toyin Pollard FNP 505 [place] [address] 09/23/2024 11:00 AM EDT Telemedicine [facility] MED & PEDS 505 [place], [place] [phone] 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, RN 505 [place], [place] documented as of this encounter Goals [...] documented as of this encounter Care Teams Alteration Tailor Apprentice Relationship Specialty Start Date End Date Toyin Pollard FNP 230 [place] [address] PCP - General Family Medicine 01/11/21 Satish Brennan MD [address] [place] [address] Endocrinology 02/22/24 Jacob Morrow 5 [place] [address] Pulmonary Disease 02/22/24 Nicolasa Escobar MD [address] [place] [address] [place] [address] Neurology 02/22/24 Shen Davis MD [address] [place] [address] Nephrology 02/22/24 Ellyn Connolly Modeling AgentRocket Engine Component Mechanic 08/17/23 [facility] 10/24/24 11/3/24 [facility] 01/11/24 documented as of this encounter
--- OUTSIDE RECORDS SUMMARY | 2024-07-02 18:44 | XMS_ITS | Clinical Summary ---
Author Organization [facility] Address [address] [facility] 20 0 [place] [address] Phone Care Team Providers Care Life Skills Trainer Name Role Phone Toyin Pollard LOUIE Primary Care Provider [phone] Social History Tobacco Use Types Packs/Day Years [...] age to complete this topic [place] Care Teams Life Skills Trainer Relationship Specialty Start Date End Date Toyin Pollard FNP [address] [place] [address] PCP - General 09/13/22
--- OUTSIDE RECORDS SUMMARY | 2024-07-02 18:44 | XMS_ITS | Encounter Summary ---
Author Organization [employer] Address 75 [facility] 7t [place] [address] Care Team Providers Care Gate Attendant Name Role Phone Toyin Pollard LOUIE Primary Care Provider Satish Brennan MD Unavailable [phone] Jacob Morrow Unavailable [phone] Nicolasa Escobar MD Unavailable Shen Davis MD Unavailable [phone] Reason for Visit * Reason Comments Med Refill Encounter Details Date Type Department Care Team (Late st Contact Info) Description 08/21/2023 Refill [facility] MEDICINE 230 [place], [place] [phone] Agustina Toribio MD 230 [place], [place] [phone] Social History Tobacco Use Types Packs/Day Years [...] the past 12 months, has t he [employer], gas, oil or water company threatened to [...] 08/05/2024 10:30 AM EDT Office Visit [facility] MED & PEDS 505 [place] [address] Toyin Pollard FNP 505 [place] [address] 09/23/2024 11:00 AM EDT Telemedicine [facility] MED & PEDS 505 [place] [address] 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, MINA 505 [place] [address] documented as of this encounter Goals Goal [...] documented as of this encounter Care Teams Gate Attendant Relationship Specialty Start Date End Date Phalen, Toyin, RECORD TABULATING CLERK 230 [place] [address] PCP - General Family Medicine 01/11/21 Satish Brennan MD [address] [place] [address] Endocrinology 02/22/24 Jacob Morrow [address] [place] [address] Pulmonary Disease 02/22/24 Nicolasa Escobar MD [address] [place] [address] [address] Neurology 02/22/24 Shen Davis MD [address] [place] [address] Nephrology 02/22/24 Ellyn Connolly Carbide Tool Die MakerBox Lining Machine Feeder 08/17/23 [facility] 01/11/24 01/21/24 [facility] 01/11/24 documented as of this encounter
--- OUTSIDE RECORDS SUMMARY | 2024-07-02 18:44 | XMS_ITS | Encounter Summary ---
Author Organization [employer] Address 75 [facility] 7t [place] [address] Care Team Providers Care Director Of Services Name Role Phone Toyin Pollard Primary Care Provider Satish Brennan MD Unavailable Jacob Morrow Unavailable [phone] Nicolasa Escobar MD Unavailable Shen Davis MD Unavailable [phone] Reason for Visit * Reason Onset Date Comments PT1 01/30/2023 Encounter Details Date Type Department Care Team (Late st Contact Info) Description 01/30/2023 Telephone [facility] MEDICINE 230 [place], [place] [phone] Toyin Polalrd FNP 505 [place], [place] [phone] PT1 Social History Tobacco Use Types Packs/Day [...] Date: 03/27/2022 Time: 8:30 Visits: 5 Address: [address] [place] [address] Facility: [facility] Neurology Wheel Chair: Scooter and O2 Quality Assurance Project Manager Needed: Yes 1 documented in this encounter Plan of Treatment Upcoming Encounters Date Type Department Care Team ([facility] st Contact Info) Description 08/05/2024 10:30 AM EDT Office Visit [facility] MED & PEDS 505 [place] [address] Toyin Pollard FNP 505 [place] [address] 09/23/2024 11:00 AM EDT Telemedicine [facility] MED & PEDS 505 [place] [address] 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, RN [address] [place] [address] documented as of this encounter Goals Goal [...] of this encounter Care Teams Director Of Services Relationship Specialty Start Date End Date Toyin Pollard FNP [address] [place] [address] PCP - General Family Medicine 01/11/21 Satish Brennan MD [address] [place] [address] Endocrinology 02/22/24 Jacob Morrow 5 [place] [address] Pulmonary Disease 02/22/24 Nicolasa Escobar MD [address] [place] [address] Dr [facility] 140 [place] [address] Neurology 02/22/24 Shen Davis MD [address] [place] [address] Nephrology 02/22/24 Ellyn Connolly Branding SpecialistAnthropology Professor 08/17/23 [facility] 01/11/24 01/21/24 [facility] 01/11/24 documented as of this encounter
--- OUTSIDE RECORDS SUMMARY | 2024-07-02 18:44 | XMS_ITS | Encounter Summary ---
Author Organization [employer] Address 75 [facility] 7t [place] [address] Care Team Providers Care Dye Worker Name Role Phone Toyin Pollard LOUIE Primary Care Provider [phone] Satish Brennan MD Unavailable [phone] Jacob Morrow Unavailable [phone] Nicolasa Escobar MD Unavailable Shen Davis MD Unavailable [phone] Encounter Details Date Type Department Care [...] 08/05/2024 10:30 AM EDT Office Visit [facility] MED & PEDS 505 [place] [address] Toyin Pollard FNP 505 [place] [address] 09/23/2024 11:00 AM EDT Telemedicine [facility] MED & PEDS 505 [place] [address] 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, RN 505 [place] [address] documented as of this encounter Goals Goal [...] documented as of this encounter Care Teams Dye Worker Relationship Specialty Start Date End Date Toyin Pollard FNP 230 [place] [address] PCP - General Family Medicine 01/11/21 Satish Brennan MD [address] [place] [address] Endocrinology 02/22/24 Jacob Morrow [address] [place] [address] Pulmonary Disease 02/22/24 Nicolasa Escobar MD [address] [place] [address] [place] [address] Neurology 02/22/24 Shen Davis MD [address] [place] [address] Nephrology 02/22/24 Ellyn Connolly [place] Fishing Crew MemberAvionics Technician 08/17/23 [facility] 01/11/24 documented as of this encounter
--- OUTSIDE RECORDS SUMMARY | 2024-07-02 18:44 | XMS_ITS | Encounter Summary ---
Author Organization [employer] Address 75 [facility] 7t [place] [address] Care Team Providers Care Pig Machine Crane Operator Name Role Phone Toyin Pollard LOUIE Primary Care Provider Satish Brennan MD Unavailable [phone] Jacob Morrow Unavailable [phone] Nicolasa Escobar MD Unavailable Shen Davis MD Unavailable [phone] Reason for Visit * Reason Comments Med Refill Encounter Details Date Type Department Care Team (Late st Contact Info) Description 08/24/2023 Refill [facility] MEDICINE 230 [place], [place] [phone] Agustina Toribio MD 230 [place], [place] [phone] Social History Tobacco Use Types Packs/Day Years [...] the past 12 months, has t he [employer], gas, oil or water company threatened to [...] Description 08/05/2024 10:30 AM EDT Office Visit [facility] MED & PEDS 505 [place] [address] Toyin Pollard FNP 505 [place] [address] 09/23/2024 11:00 AM EDT Telemedicine [facility] MED & PEDS 505 [place] [address] 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, MINA 505 [place] [address] documented as of this encounter Goals Goal [...] documented as of this encounter Care Teams Pig Machine Crane Operator Relationship Specialty Start Date End Date Phalen, Toyin, BEARINGIZER 230 [place] [address] PCP - General Family Medicine 01/11/21 Satish Brennan MD [address] [place] [address] Endocrinology 02/22/24 Jacob Morrow [address] [facility] [address] [place] [address] Pulmonary Disease 02/22/24 Nicolasa Escobar MD [address] [place] [address] [address] Neurology 02/22/24 Shen Davis MD [address] [place] [address] Nephrology 02/22/24 Ellyn Connolly Application EngineerLibrary Science Instructor 08/17/23 [facility] 01/11/24 01/21/24 [facility] 01/11/24 documented as of this encounter
--- OUTSIDE RECORDS SUMMARY | 2024-07-02 18:44 | XMS_ITS | Encounter Summary ---
Author Organization [employer] Address 75 [facility] 7t [place] [address] Care Team Providers Care Rig Supervisor Name Role Phone Toyin Pollard LOUIE Primary Care Provider [phone] Satish Brennan MD Unavailable Jacob Morrow Unavailable [phone] Nicolasa Escobar MD Unavailable Shen Davis MD Unavailable [phone] Encounter Details Date Type Department Care Team ([facility] Contact Info) Description 07/21/2022 Orders Only [facility] MED & PEDS 505 [place] [address] Ellyn Chery LPN Social History Tobacco Use [...] Upcoming Encounters Date Type Department Care Team ([facility] Contact Info) Description 08/05/2024 10:30 AM EDT Office Visit [facility] MED & PEDS 505 [place] [address] Toyin Pollard FNP 505 [place] [address] 09/23/2024 11:00 AM EDT Telemedicine [facility] MED & PEDS [address] [place] [address] 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, RN [address] [place] [address] documented as of this encounter Visit Diagnoses Not on filedocumented in this encounter Care Teams Rig Supervisor Relationship Specialty Start Date End Date Toyin Pollard FNP [address] [place] [address] PCP - General Family Medicine 01/11/21 Satish Brennan MD [address] [place] [address] Endocrinology 02/22/24 Jacob Morrow 5 [place] [address] Pulmonary Disease 02/22/24 Nicolasa Escobar MD [address] [place] [address] 140 [place] [address] Neurology 02/22/24 Shen Davis MD [address] [place] [address] Nephrology 02/22/24 Ellyn Connolly Revenue AnalystBoat Painter 08/17/23 [facility] 01/11/24 01/21/24 [facility] 01/11/24 documented as of this encounter
--- OUTSIDE RECORDS SUMMARY | 2024-07-02 18:44 | XMS_ITS | Encounter Summary ---
Author Organization [employer] Address 75 [facility] 7t [place] [address] Care Team Providers Care Station Usher Name Role Phone JuddToyin barry LOUIE Primary Care Provider [phone] Satish Brennan MD Unavailable Jacob Morrow Unavailable [phone] Nicolasa Escobar MD Unavailable Shen Davis MD Unavailable [phone] Reason for Visit * Reason Onset Date Comments Appointment 12/27/2022 Encounter Details Date Type Department Care Team ([facility] st Contact Info) Description 12/27/2022 Telephone [facility] 230 [place], [place] [phone] Nestor Varela DDS 230 [place], [place] [phone] Appointment Social History Tobacco Use Types Packs/Day [...] [facility] MED & PEDS 505 [place] [address] Toyin Pollard FNP 505 [place] [address] 09/23/2024 11:00 AM EDT Telemedicine [facility] MED & PEDS 505 [place] [address] 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 RN 505 [place] [address] documented as of this encounter Visit Diagnoses Not on filedocumented in this encounter Additional Health Concerns Assessment Noted Time PHQ-9 Depression Total Score: 0 09/29/19 23 2:03 PM EDT documented as of this encounter Care Teams Station Usher Relationship Specialty Start Date End Date Toyin Pollard FNP 230 [place] [address] PCP - General Family Medicine 01/11/21 Satish Brennan MD [address] [place] [address] Endocrinology 02/22/24 Jacob Morrow 5 [place] [address] Pulmonary Disease 02/22/24 Nicolasa Escobar MD [address] [place] [address] [address] Neurology 02/22/24 Shen Davis MD [address] [place] [address] Nephrology 02/22/24 Ellyn Connolly Digital Strategy SpecialistDirector Physical 08/17/23 [facility] 01/11/24 01/21/24 [facility] 01/11/24 documented as of this encounter
--- OUTSIDE RECORDS SUMMARY | 2024-07-02 18:44 | XMS_ITS | Encounter Summary ---
Author Organization [employer] Address 75 [facility] 7t [place] [address] Care Team Providers Care Log Clerk Name Role Phone Toyin Pollard Primary Care Provider Satish Brennna MD Unavailable [phone] Jacob Morrow Unavailable [phone] Nicolasa Escobar MD Unavailable [phone] Shen Davis MD Unavailable [phone] Reason for Visit * Reason Comments Med Refill Encounter Details Date Type Department Care Team ([facility] st Contact Info) Description 01/24/2023 Refill [facility] MED & PEDS 505 [place], [place] [address] Toyin Pollard FNP 505 [place], [place] [phone] Pain Social History Tobacco Use Types Packs/Day [...] [facility] MED & PEDS 505 [place] [address] Toyin Pollard FNP 505 [place] [address] 09/23/2024 11:00 AM EDT Telemedicine [facility] MED & PEDS 505 [place] [address] 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, MINA 505 [place] [address] documented as of this encounter Goals Goal [...] documented as of this encounter Care Teams Log Clerk Relationship Specialty Start Date End Date Toyin Pollard FNP [address] [place] [address] PCP - General Family Medicine 01/11/21 Satish Brennan MD [address] [place] [address] Endocrinology 02/22/24 Jacob Morrow [address] [facility] [place] [address] Pulmonary Disease 02/22/24 Nicolasa Escobar MD [address] [place] [address] [address] Neurology 02/22/24 Shen Davis MD [address] [place] [address] Nephrology 02/22/24 Ellyn Connolly Php Website DeveloperPediatric Ophthalmologist 08/17/23 [facility] 01/11/24 01/21/24 [facility] 01/11/24 documented as of this encounter
--- OUTSIDE RECORDS SUMMARY | 2024-07-02 18:44 | XMS_ITS | Encounter Summary ---
Author Organization [employer] Address [address] [place] [address] 7t [place] [address] Care Team Providers Care Science Faculty Member Name Role Phone Toyin Pollard Primary Care Provider Satish Brennan MD Unavailable [phone] Jacob Morrow Unavailable Nicolasa Escobar MD Unavailable Shen Davis MD Unavailable [phone] Encounter Details Date Type Department Care Team (Late st Contact Info) Description 09/12/2022 Orders Only [facility] MEDICINE 230 [place] [address] Patrica Grimaldo LPN Social History Tobacco Use [...] Description 08/05/2024 10:30 AM EDT Office Visit [facility] MED & PEDS 505 [place] [address] Toyin Pollard FNP 505 [place] [address] 09/23/2024 11:00 AM EDT Telemedicine [facility] MED & PEDS [address] [place] [address] 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, RN [address] [place] [address] documented as of this encounter Visit Diagnoses Not on filedocumented in this encounter Care Teams Science Faculty Member Relationship Specialty Start Date End Date Toyin Pollard FNP 230 [place] [address] PCP - General Family Medicine 01/11/21 Satish Brennan MD [address] [place] [address] Endocrinology 02/22/24 Jacob Morrow 5 [place] [address] Pulmonary Disease 02/22/24 Nicolasa Escobar MD [address] [place] [address] Dr [facility] 140 [place] [address] Neurology 02/22/24 Shen Davis MD [address] [place] [address] Nephrology 02/22/24 Ellyn Connolly Lamination AssemblerAlto Singer 08/17/23 [facility] 01/11/24 01/21/24 [facility] 01/11/24 documented as of this encounter
--- OUTSIDE RECORDS SUMMARY | 2024-07-02 18:44 | XMS_ITS | Encounter Summary ---
Author Organization [employer] Address 75 [facility] 7t [place] [address] Care Team Providers Care Winding Operator Name Role Phone Toyin Pollard Primary Care Provider Satish Brennan MD Unavailable [phone] Jacob Morrow Unavailable [phone] Nicolasa Escobar MD Unavailable Shen Davis MD Unavailable [phone] Reason for Visit * Reason Onset Date Comments Durable Medical Equipment 02/19/2024 Encounter Details Date Type Department Care Team (Late st Contact Info) Description 02/19/[address] [facility] MEDICINE 230 [place], [place] [phone] Toyin Pollard FNP 505 [place], [place] [phone] Durable Medical Equipment Social History Tobacco Use [...] LPN - 02/20/2024 10:21 AM EST Director Business Development did see Rx was sent to [phone] pt has current RX no need for updates, screenplay writer Parisa at number below. However no answer and mail box full . Pt has appt tomorrow pt should discussthis need sending to PCP as FYI . Tc from [facility] requesting a new order for pt to be sent over for Poise sanitary pads , adult diapers oversized . Any questions please get in contact with [facility] at the callback number above. Callback [phone] * Telephone Encounter - Christina Paul - 02/19/2024 3:28 PM EST Tc from [facility] ([employer]) requesting a new order for pt to be sent over for Poise sanitary pads , adult diapers oversized . Any questions please get in contact with [facility] at the callback number above. Callback [phone] documented in this encounter Plan of Treatment Upcoming Encounters Date Type Department Care Team ([facility] st Contact Info) Description 08/05/2024 10:30 AM EDT Office Visit [facility] MED & PEDS 505 [place] [address] Toyin Pollard FNP 505 [place] [address] 09/23/2024 11:00 AM EDT Telemedicine [facility] MED & PEDS 505 [place] [address] 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, MINA 505 [place], [place] documented as of this encounter Goals [...] documented as of this encounter Care Teams Winding Operator Relationship Specialty Start Date End Date Toyin Pollard FNP [address] [place] [address] PCP - General Family Medicine 01/11/21 Satish Brennan MD [address] [place] [address] Endocrinology 02/22/24 Jacob Morrow 5 [place] [address] Pulmonary Disease 02/22/24 Nicolasa Escobar MD [address] [place] [address] [place] [address] Neurology 02/22/24 Shen Davis MD [address] [place] [address] Nephrology 02/22/24 Ellyn Connolly Production Quality ManagerCoremaking Machine Operator 08/17/23 [facility] 01/11/24 documented as of this encounter
--- OUTSIDE RECORDS SUMMARY | 2024-07-02 18:44 | XMS_ITS | Encounter Summary ---
Author Organization [employer] Address 75 [facility] 7t [place] [address] Care Team Providers Care Collections Officer Name Role Phone Toyin Pollard LOUIE Primary Care Provider Satish Brennan MD Unavailable Jacob Morrow Unavailable [phone] Nicolasa Escobar MD Unavailable Shen Davis MD Unavailable [phone] Reason for Visit * Reason Onset Date Comments Med Refill 06/27/2024 Encounter Details Date Type Department Care Team (Late st Contact Info) Description 06/27/2024 Refill [facility] MED & PEDS [address] [place] [address] 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, RN 505 [place] [address] Pain; Calculus of gallbladder without cholecystitis without [...] 3 expected. PE with you 08/05/24. What FIELD ARTILLERY TARGETING TECHNICIAN Tier would you like this patient to be? Tier 1 = HIGH RISK, Monthly FIELD ARTILLERY TARGETING TECHNICIAN visits Tier 2 = MODerate RISK, Q3 Month visits Tier 3 = LOW RISK = Q4-6 month visits documented in this encounter Plan of Treatment Upcoming Encounters Date Type Department Care Team (Late st Contact Info) Description 08/05/2024 10:30 AM EDT Office Visit [facility] MED & PEDS [address] [place] [address] Toyin Pollard FNP 505 [place], [place] 09/23/2024 11:00 AM EDT Telemedicine [facility] MED & PEDS [address] [place] [address] 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 RN 505 [place], [place] [phone] documented as of this encounter Goals Goal [...] documented as of this encounter Care Teams Collections Officer Relationship Specialty Start Date End Date Toyin Pollard FNP [address] [place] [address] PCP - General Family Medicine 01/11/21 Satish Brennan MD 10 [facility] [address] [place] [address] Endocrinology 02/22/24 Jacob Morrow 5 [place], [place] Pulmonary Disease 02/22/24 Nicolasa Escobar MD [address] [place] [address] Kameron Solis [place], [place] [id number] Neurology 02/22/24 Shen Davis MD [address] [facility] [place] [address] Nephrology 02/22/24 Ellyn Connolly Sql Database ProgrammerPreformer Impregnated Fabrics 08/17/23 [facility] 01/11/24 documented as of this encounter
--- OUTSIDE RECORDS SUMMARY | 2024-07-02 18:44 | XMS_ITS | Encounter Summary ---
Author Organization [employer] Address 75 [facility] 7t [place] [address] Care Team Providers Care Assistant Terminal Manager Name Role Phone Toyin Pollard Primary Care Provider Satish Brennan MD Unavailable Jacob Morrow Unavailable [phone] Nicolasa Escobar MD Unavailable Shen Davis MD Unavailable [phone] Reason for Visit * Reason Onset Date Comments Forms/questionnaires 03/03/2022 Encounter Details Date Type Department Care Team (Late st Contact Info) Description 03/03/2022 Telephone [facility] MEDICINE [address] [place] [address] Toyin Pollard FNP 505 [place], [place] [phone] Forms/questionnaires Social History Tobacco Use Types Packs/Day [...] 12:07 PM EST Tc from Naye from [facility] requesting status on 485 form . States they have faxed several times since November and have not yet received back . Informs needs by 03/15/22 if not pt will be discharged from services. Best contact number [phone]. There fax number is [phone] . documented in this encounter Plan of Treatment Upcoming Encounters Date Type Department Care Team (Late st Contact Info) Description 08/05/2024 10:30 AM EDT Office Visit [facility] MED & PEDS [address] [place] [address] Toyin Pollard FNP 505 [place] [address] 09/23/2024 11:00 AM EDT Telemedicine [facility] MED & PEDS [address] [place] [address] 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 RN 505 [place] [address] documented as of this encounter Visit Diagnoses Not on filedocumented in this encounter Care Teams Assistant Terminal Manager Relationship Specialty Start Date End Date Toyin Pollard FNP [address] [place] [address] PCP - General Family Medicine 01/11/21 Satish Brennan MD [address] [place] [address] Endocrinology 02/22/24 Jacob Morrow 5 [place] [address] Pulmonary Disease 02/22/24 Nicolasa Escobar MD [address] [place] [address] [place] [address] Neurology 02/22/24 Shen Davis MD [address] [place] [address] Nephrology 02/22/24 Ellyn Connolly Cigar PackerInformation Security Consultant 08/17/23 [facility] 01/11/24 01/21/24 [facility] 01/11/24 documented as of this encounter
--- OUTSIDE RECORDS SUMMARY | 2024-07-02 18:44 | XMS_ITS | Encounter Summary ---
Author Organization [employer] Address 75 [facility] 7t [place] [address] Care Team Providers Care Tire Cord Weaver Name Role Phone Toyin Pollard Primary Care Provider Satish Brennan MD Unavailable Jacob Morrow Unavailable [phone] Nicolasa Escobar MD Unavailable Shen Davis MD Unavailable [phone] Encounter Details Date Type Department Care Team (Late st Contact Info) Description 03/29/2023 Orders Only [facility] CHC MED & PEDS [address] [place], [place] [phone] Maritza Daniel FNP [address] [place] [address] Social History Tobacco Use Types Packs/Day Years [...] [facility] MED & PEDS 505 [place] [address] Toyin Pollard FNP 505 [place] [address] 09/23/2024 11:00 AM EDT Telemedicine [facility] MED & PEDS [address] [place] [address] 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, RN 505 [place] [address] documented as of this encounter Goals Goal [...] documented as of this encounter Care Teams Tire Cord Weaver Relationship Specialty Start Date End Date Toyin Pollard FNP [address] [place] [address] PCP - General Family Medicine 01/11/21 Satish Brennan MD [address] [place] [address] Endocrinology 02/22/[address] [place] [address] Pulmonary Disease 02/22/24 Nicolasa Escobar MD [address] [place] [address] [facility] [address] [place] [address] Neurology 02/22/24 Shen Davis MD [address] [place] [address] Nephrology 02/22/24 Ellyn Connolly Director Of QualityForensic Manager 08/17/23 [facility] 01/11/24 01/21/24 [facility] 01/11/24 documented as of this encounter
--- OUTSIDE RECORDS SUMMARY | 2024-07-02 18:44 | XMS_ITS | Encounter Summary ---
Author Organization [employer] Address 75 [facility] 7t [place] [address] Care Team Providers Care Ceiling Cleaner Name Role Phone Toyin Pollard Primary Care Provider [phone] Satish Brennan MD Unavailable [phone] Jacob Morrow Unavailable [phone] Nicolasa Escobar MD Unavailable [phone] Shen Davis MD Unavailable [phone] Reason for Visit * Reason Onset Date Comments PT1 08/19/2022 Encounter Details Date Type Department Care Team (Late st Contact Info) Description 08/19/2022 Telephone [facility] MEDICINE 230 [place] [address] Toyin Pollard FNP 505 [place], [place] [phone] PT1 Social History Tobacco Use Types Packs/Day [...] has correct home address but transportation doesn't. Air Export Operations Agent is resubmitting PT1. PT1 Date: Time: address:[address] [facility] specialty:PCP # visits: return to service inspector: yes Wheelchair: yes PT1 Date: Time: address: [address] [facility] specialty: Community Health Director # visits: return to service inspector:yes Wheelchair:yes PT1 Date: Time: address: [address] [facility] specialty: Emergency Preparedness Manager/ Diabetes # visits: return to service inspector:yes Wheelchair:yes PT1 Date: Time: address:[address] [facility] specialty: Speech and hearing # visits: return to service inspector:yes Wheelchair:yes documented in this encounter Plan of Treatment Upcoming Encounters Date Type Department Care Team (Late st Contact Info) Description 08/05/2024 10:30 AM EDT Office Visit [facility] MED & PEDS 505 [place] [address] Toyin Pollard FNP 505 [place] [address] 09/23/2024 11:00 AM EDT Telemedicine [facility] MED & PEDS 505 [place] [address] 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, RN 505 [place] [address] documented as of this encounter Visit Diagnoses Not on filedocumented in this encounter Care Teams Ceiling Cleaner Relationship Specialty Start Date End Date Toyin Pollard FNP [address] [place] [address] PCP - General Family Medicine 01/11/21 Satish Brennan MD [address] [address] Endocrinology 02/22/24 Jacob Morrow 5 [place] [address] Pulmonary Disease 02/22/24 Nicolasa Escobar MD [address] [place] [address] [address] Neurology 02/22/24 Shen Davis MD [address] [place] [address] Nephrology 02/22/24 Ellyn Connolly Accounting CoordinatorPumper Gager 08/17/23 [facility] 01/11/24 01/21/24 [facility] 01/11/24 documented as of this encounter
--- OUTSIDE RECORDS SUMMARY | 2024-07-02 18:44 | XMS_ITS | Encounter Summary ---
Author Organization [employer] Address 75 [facility] 7t [place] [address] Care Team Providers Care Acid Plant Helper Name Role Phone Toyin Pollard Primary Care Provider Satish Brennan MD Unavailable [phone] Jacob Morrow Unavailable [phone] Nicolasa Escobar MD Unavailable Shen Davis MD Unavailable [phone] Encounter Details Date Type Department Care Team (Late st Contact Info) Description 04/26/2022 Abstract [facility] MEDICINE [address] [place] [address] Toyin Pollard FNP 505 [place] [address] Social History Tobacco Use Types Packs/Day Years [...] Description 08/05/2024 10:30 AM EDT Office Visit [facility] CHC MED & PEDS 505 [place], [place] [phone] Toyin Pollard FNP 505 [place], [place] [phone] 09/23/2024 11:00 AM EDT Telemedicine [facility] CHC MED & PEDS 505 [place] [address] 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, RN [address] [place] [address] documented as of this encounter Visit Diagnoses Not on filedocumented in this encounter Care Teams Acid Plant Helper Relationship Specialty Start Date End Date Toyin Pollard FNP [address] [place] [address] PCP - General Family Medicine 01/11/21 Satish Brennan MD [address] [place] [address] Endocrinology 02/22/24 Jacob Morrow 5 [place] [address] Pulmonary Disease 02/22/24 Nicolasa Escobar MD [address] [place] [address] Dr Kameron 140 [place] [address] Neurology 02/22/24 Shen Davis MD [address] [place] [address] Nephrology 02/22/24 Ellyn Connolly Bladder ChangerTube Cutter 08/17/23 [facility] 01/11/24 01/21/24 [facility] 01/11/24 documented as of this encounter
--- OUTSIDE RECORDS SUMMARY | 2024-07-02 18:44 | XMS_ITS | Encounter Summary ---
Author Organization [employer] Address 75 [facility] 7t [place] [address] Care Team Providers Care Night Shift Supervisor Name Role Phone Toyin Pollard Primary Care Provider Satish rBennan MD Unavailable Jacob Morrow Unavailable [phone] Nicolasa Escobar MD Unavailable Shen Davis MD Unavailable [phone] Reason for Visit * Reason Onset Date Comments Durable Medical Equipment 05/22/2024 Encounter Details Date Type Department Care Team (Late st Contact Info) Description 05/22/2024 Telephone [facility] MEDICINE 230 [place], [place] [phone] Toyin Pollard FNP 505 [place], [place] [phone] Durable Medical Equipment Social History Tobacco Use [...] [facility] to check status of DME. [phone] * Telephone Encounter - Lynne Flaherty - 06/26/2024 11:24 AM EDT Tc from [place] with [facility] to check status of DME. [phone] * Telephone Encounter - Mona Ivory LPN - 06/18/2024 9:39 AM EDT Call was returned to manager rn case No Answer LVM to return call [facility] DME -wipes -adult diapers 3xl -Incontinence pads/pt requesting a different brand due to rash. Pt was triaged on 05/15/24 for rash PLEASE return call to [facility] and let her know status [phone] Yorlenis been trying to help pt get [...] 05/15/24 for rash PLEASE return call to [facility] and let her know status [phone] Yorlenis been trying to help pt get DME supplies and been waiting since April. Yorlenaniket inform pt doesn't have enough source of income to buy supplies as is needed URGENTLY ! * Telephone Encounter - Mona Ivory LPN - 05/22/2024 1:33 PM EST specifications writer communicated with [facility] to seek clarification regarding the message below. specifications writer was informedthat the patient has received the durable medical equipment (DME), although it is not the specific brand requested, as the items being sent are those covered by the patient's insurance. specifications writer also updated the patient on this information and recommended that the patient contact their insurance provi marc to inquire about coverage details. Tc from [place] with [facility] requesting DME -wipes -adult diapers 3xl -Incontinence [...] [facility] MED & PEDS [address] [place] [address] Toyin Pollard FNP 505 [place] [address] 09/23/2024 11:00 AM EDT Telemedicine [facility] MED & PEDS [address] [place], [place] [phone] 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 RN 505 [place], [place] [phone] documented as of this encounter Goals Goal [...] documented as of this encounter Care Teams Night Shift Supervisor Relationship Specialty Start Date End Date Toyin Pollard FNP [address] [place] [address] PCP - General Family Medicine 01/11/21 Satish Brennan MD [address] [place] [address] Endocrinology 02/22/24 Jacob Morrow 5 [place] [address] Pulmonary Disease 02/22/24 Nicolasa Escobar MD [address] [place] [address] [place] [address] Neurology 02/22/24 Shen Davis MD [address] [place] [address] Drive [address] [place] [address] Nephrology 02/22/24 Ellyn Connolly Fabrication EngineerPoker Dealer 08/17/23 [facility] 01/11/24 documented as of this encounter
--- OUTSIDE RECORDS SUMMARY | 2024-07-02 18:44 | XMS_ITS | Encounter Summary ---
Author Organization [employer] Address 75 [facility] 7t [place] [address] Care Team Providers Care Concrete Block Maker Name Role Phone Toyin Pollard Primary Care Provider Satish Brennan MD Unavailable [phone] Jacob Morrow Unavailable [phone] Nicolasa Escobar MD Unavailable [phone] Shen Davis MD Unavailable [phone] Encounter Details Date Type Department Care Team (Late st Contact Info) Description 06/15/2022 Orders Only [facility] MED & PEDS [address] [place] [address] Ellyn Chery LPN Social History Tobacco Use [...] [facility] 505 [place] [address] Toyni Pollard FNP 505 [place] [address] 09/23/2024 11:00 AM EDT Telemedicine [facility] CHC MED & PEDS [address] [place] [address] 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, RN [address] [place] [address] documented as of this encounter Visit Diagnoses Not on filedocumented in this encounter Care Teams Concrete Block Maker Relationship Specialty Start Date End Date Toyin Pollard FNP 230 [place] [address] PCP - General Family Medicine 01/11/21 Satish Brennan MD [address] [place] [address] Endocrinology 02/22/24 Jacob Morrow 5 [place] [address] Pulmonary Disease 02/22/24 Nicolasa Escobar MD [address] [place] [address] Dr [facility] 140 [place] [address] Neurology 02/22/24 Shen Davis MD [address] [place] [address] Nephrology 02/22/24 Ellyn Connolly Program TherapistInsole Rasper 08/17/23 [facility] 01/11/24 01/21/24 [facility] 01/11/24 documented as of this encounter
--- OUTSIDE RECORDS SUMMARY | 2024-07-02 18:44 | XMS_ITS | Encounter Summary ---
Author Organization [employer] Address 75 [facility] 7t [place] [address] Care Team Providers Care Lcsw Name Role Phone Toyin Pollard Primary Care Provider [phone] Satish Brennan MD Unavailable Jacob Morrow Unavailable [phone] Nicolasa Escobar MD Unavailable [phone] Shen Davis MD Unavailable [phone] Reason for Visit * Reason Onset Date Comments Nurse Triage 03/08/2023 Encounter Details Date Type Department Care Team (Late st Contact Info) Description 03/08/2023 Telephone [facility] MEDICINE [address] [place], [place] [phone] Toyin Pollard FNP 505 [place], [place] [phone] Nurse Triage Social History Tobacco Use Types [...] Upcoming Encounters Date Type Department Care Team ([facility] st Contact Info) Description 08/05/2024 10:30 AM EDT Office Visit [facility] MED & PEDS 505 [place] [address] Toyin Pollard FNP 505 [place] [address] 09/23/2024 11:00 AM EDT Telemedicine [facility] MED & PEDS 505 [place] [address] 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 RN 505 [place] [address] documented as of this encounter Goals Goal [...] documented as of this encounter Care Teams Lcsw Relationship Specialty Start Date End Date Toyin Pollard FNP [address] [place] [address] PCP - General Family Medicine 01/11/21 Satish Brennan MD [address] [place] [address] Endocrinology 02/22/24 Jacob Morrow 5 [place] [address] Pulmonary Disease 02/22/24 Nicolasa Escobar MD [address] [place] [address] Dr Kameron [address] [place] [address] Neurology 02/22/24 Shen Davis MD [address] [facility] 302 [place] [address] Nephrology 02/22/24 Ellyn Connolly Belly Dump DriverBridge Carpenter 08/17/23 [facility] 01/11/24 01/21/24 [facility] 01/11/24 documented as of this encounter
--- OUTSIDE RECORDS SUMMARY | 2024-07-02 18:44 | XMS_ITS | Encounter Summary ---
Author Organization [employer] Address 75 [facility] 7t [place] [address] Care Team Providers Care Card Lacer Name Role Phone Toyin Pollard Primary Care Provider Satish Brennan MD Unavailable Jacob Morrow Unavailable [phone] Nicolasa Escobar MD Unavailable Shen Davis MD Unavailable [phone] Reason for Visit * Reason Onset Date Comments Durable Medical Equipment 05/16/2024 Encounter Details Date Type Department Care Team (Late st Contact Info) Description 05/16/2024 Telephone [facility] MEDICINE 230 [place], [place] [phone] Toyin Pollard FNP 505 [place], [place] [phone] Durable Medical Equipment Social History Tobacco Use [...] [facility] MED & PEDS 505 [place] [address] Toyin Pollard FNP 505 [place] [address] 09/23/2024 11:00 AM EDT Telemedicine [facility] MED & PEDS 505 [place] [address] 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, MINA 505 [place] [address] documented as of this encounter Goals Goal [...] documented as of this encounter Care Teams Card Lacer Relationship Specialty Start Date End Date Toyin Pollard FNP 230 [place] [address] PCP - General Family Medicine 01/11/21 Satish Brennan MD [address] [place] [address] Endocrinology 02/22/24 Jacob Morrow 5 [place] [address] Pulmonary Disease 02/22/24 Nicolasa Escobar MD [address] [place] [address] Dr [facility] 140 [place] [address] Neurology 02/22/24 Shen Davis MD [address] [place] [address] Nephrology 02/22/24 Ellyn Connolly WholesalerCdl Program Coordinator 08/17/23 [facility] 01/11/24 documented as of this encounter
--- OUTSIDE RECORDS SUMMARY | 2024-07-02 18:44 | XMS_ITS | Encounter Summary ---
Author Organization [employer] Address [address] [place] [address] 7t [place] [address] Care Team Providers Care Burr Bench Hand Name Role Phone Toyin Pollard Primary Care Provider [phone] Satish Brennan MD Unavailable Jacob Morrow Unavailable [phone] Nicolasa Escobar MD Unavailable [phone] Shen Davis MD Unavailable [phone] Encounter Details Date Type Department Care Team (Late st Contact Info) Description 04/20/2022 Orders Only [facility] MEDICINE 230 [place] [address] Patrica Grimaldo LPN Social History Tobacco Use [...] [facility] 505 [place] [address] Toyin Pollard FNP 505 [place] [address] 09/23/2024 11:00 AM EDT Telemedicine [facility] MED & PEDS [address] [place] [address] 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, RN [address] [place] [address] documented as of this encounter Visit Diagnoses Not on filedocumented in this encounter Care Teams Burr Bench Hand Relationship Specialty Start Date End Date Toyin Pollard FNP 230 [place] [address] PCP - General Family Medicine 01/11/21 Satish Brennan MD [address] [place] [address] Endocrinology 02/22/24 Jacob Morrow 5 [place] [address] Pulmonary Disease 02/22/24 Nicolasa Escobar MD [address] [place] [address] [address] Neurology 02/22/24 Shen Davis MD [address] [place] [address] Nephrology 02/22/24 Ellyn Connolly Manufacturing CoordinatorCigar Packer And Picker 08/17/23 [facility] 01/11/24 01/21/24 [facility] 01/11/24 documented as of this encounter
--- OUTSIDE RECORDS SUMMARY | 2024-07-02 18:44 | XMS_ITS | Encounter Summary ---
Author Organization [employer] Address [address] [facility] 7t [place] [address] Care Team Providers Care President And Cmo Name Role Phone JuddToyin barry LOUIE Primary Care Provider [phone] Satish Brennan MD Unavailable [phone] Jacob Morrow Unavailable [phone] Nicolasa Escobar MD Unavailable Shen Davis MD Unavailable [phone] Encounter Details Date Type Department Care Team (Late st Contact Info) Description 07/02/2024 Orders Only [facility] External Provider, [facility] Social History Tobacco Use Types Packs/Day Years [...] Upcoming Encounters Date Type Department Care Team ([facility] st Contact Info) Description 08/05/2024 10:30 AM EDT Office Visit [facility] [address] [place] [address] Toyin Pollard FNP 505 [place] [address] 09/23/2024 11:00 AM EDT Telemedicine [facility] [address] [place] [address] 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, RN 505 [place] [address] documented as of this encounter Goals Goal Patient Goal Type Associated Problems Recent Progress Patient-Stated? Author Hemoglobin A1c < 7 Result Component 6.4(08/02/2023 4:30 PM EDT) No Michelle Alegria, PharmD documented as of this encounter Procedures Procedure Name Priority Date/Time Associated Diagnosis Comments URINALYSIS, COMPLETE, WITH REFLEX TO CULTURE Routine 07/02/2024 4:10 PM EDT COMPREHENSIVE METABOLIC PANEL Routine 07/02/2024 3:33 PM EDT XR FOOT 1-2 VIEWS RIGHT Routine 07/02/2024 3:01 PM EDT XR ANKLE 2 VIEWS RIGHT Routine 3:01 PM EDT documented in this encounter Results * (ABNORMAL) Urinalysis, Complete, with Reflex to Culture (07/02/2024 4:10 PM EDT) Color Urine Dark Yellow [facility] Appearance Urine Cloudy [facility] PH 7.5 5.0 - 9.0 [facility] Glucose Urine UA Negative Negative mg/dL [facility] Urine Blood Trace(A) Negative [facility] Specific [place] - Urine 1.015 1.005 - 1.025 [facility] Urine Protein Trace Neg-Trace mg/dL [facility] Urine Ketones Negative Negative mg/dL [facility] Nitrite Urine Positive(A) Negative [facility] Leukocyte Esterase Urine Large (3+)(A) Negative [facility] RBC Urine 6-10(A) 0 - 2 /HPF [facility] Urine WBC >50(A) 0 - 5 /HPF [facility] Urine Squamous Epithelial Cell 0-2 0 - 2 /HPF [facility] Urine Bacteria 4+ None Seen [facility] Hyaline Casts, Urine 0-2 0 - 2 /LPF [facility] 07/02/2024 4:10 PM EDT 07/02/2024 4:19 PM EDT Narrative [facility] - 07/02/2024 4:59 PM EDT [id number], Clean Catch us Generic External Data Provider LAB URINE ORDERAB LES Final Result [facility] [address] [place] [address] [phone] * (ABNORMAL) Comprehensive Metabolic Panel (07/02/2024 3:33 PM EDT) Sodium 127(L) 135 - 145 mmol/L [facility] Potassium 4.9 3.3 - 5.1 mmol/L [facility] Chloride 82(L) 96 - 108 mmol/L [facility] Carbon Dioxide 35(H) 22 - 29 mmol/L [facility] Anion Gap 15 12 - 20 [facility] Urea Nitrogen (BUN) 9 9 - 16 mg/dL [facility] Creatinine, Serum 0.67 0.5 - 1.4 mg/dL [facility] Creatinine Clr Calc Pharmacy 182.1 [facility] Comment:Provided height and weight: 167.64 cm,208 kg.eGFR (calculated from the MDRD study equation) and eCrCl(calculated from the Cockcroft-Gault equation) are based ondifferent parameters and may not yield comparable results.If eCrCl result is absurd, please check patient'sheight/weight. Estimated Glomerular Filt Rate >60 [facility] Comment:Chronic Kidney Disea se: Estimated GFR < 60 mL/min/1.32j6Sctkng Kidney Disease: Estimated GFR < 15 mL/min/1.73m2 Glucose 133(H) 60 - 115 mg/dL [facility] Calcium 9.7 8.4 - 10.2 mg/dL [facility] Bilirubin, Total 0.2 0.0 - 1.0 mg/dL [facility] Aspartate Amino Transferase 19 5 - 31 U/L [facility] Alanine Aminotransferase 10 0 - 31 U/L [facility] Total Protein 7.0 6.5 - 8.0 g/dL [facility] Albumin Level 4.0 3.5 - 5.0 g/dL [facility] Alkaline Phosphatase 54 39 - 117 U/L [facility] 07/02/2024 3:33 PM EDT 07/02/2024 3:36 PM EDT us Generic External Data Provider LAB BLOOD ORDERAB LES Final Result [facility] [address] [place] [address] [phone] * XR Ankle 2 Views Right (07/02/2024 3:01 PM EDT) Anatomical Region Laterality Modality Lower Extremities, Ankle Right Radiogr aphic Imaging 07/02/2024 3:01 PM EDT Narrative 07/02/2024 3:58 PM EDT ? [facility] ?[address] ?[place] [address] ?XRay Report ? Signed ? Patient: Elle Lopez ?MR#: [id number] ?? 57 ? : 1970 ?Acct:[id number] ? Age/Sex: 54 / F ?ADM Date: 07/02/24 ? Loc: HO.ED ? Attending Dr: ? Ordering Physician: Silvia Jose ?? Date of Service: 07/02/24 ?? Procedure(s): XR ankle RT 2V ?? Accession Number(s): [id number] ? cc: [facility]; Silvia Jose ? EXAMINATION: ?? XR [...] DD/ 1501 ? TD/TT: 07/02/24 1525 ? Sales Operations Analyst: ? Procedure Note Anoop Babcock - 07/02/2024 [place] [address] [place] [address] XRay Report Signed Patient: Elle LopezMR#: [id number] 57 : 1970Acct:[id number] Age/Sex: 54 / FADM Date: 07/02/24 Loc: HO.ED Attending Dr: Ordering Physician: Silvia Jose Date of Service: 07/02/24 Procedure(s): XR ankle RT 2V Accession Number(s): [id number] cc: [facility]; Silvia Jose EXAMINATION: XR ANKLE, RIGHT [...] Jose Lopez MD 07/02/2024 03:56 PM EDT Dictated By: Jose Urias MD Signed By: <Electronically signed by Jose Dumont MDin OV> 07/02/24 1556 DD/ 1501 TD/TT: 07/02/24 1525 Sales Operations Analyst: [facility] External Provider IMG XR PROCEDURES Final Result * XR Foot 1-2 Views Right (07/02/2024 3:01 PM EDT) Anatomical Region Laterality Modality Lower Extremities, Foot Right [facility] 07/02/2024 3:01 PM EDT Narrative 07/02/2024 3:56 PM EDT ? [facility] ?[address] ?[place] [address] ?XRay Report ? Signed ? Patient: John,Elle ?MR#: [id number] ?? 57 ? : 1970 ?Acct:[id number] ? Age/Sex: 54 / F ?ADM Date: 04/15/25 ? Loc: HO.ED ? Attending Dr: ? Ordering Physician: Silvia Jose ?? Date of Service: 07/02/24 ?? Procedure(s): XR foot RT 2V ?? Accession Number(s): [id number] ? cc: [facility]; Silvia Jose ? EXAMINATION: ?? XR [...] DD/ 1501 ? TD/TT: 07/02/24 1525 ? Sales Operations Analyst: ? Procedure Note Sadiq, Image - 07/02/2024 [place] [address] XRay Report Signed Patient: Elle LopezMR#: [id number] 57 : 1970Acct:[id number] Age/Sex: 54 / FADM Date: 07/02/24 Loc: HO.ED Attending Dr: Ordering Physician: Silvia Jose Date of Service: 07/02/24 Procedure(s): XR foot RT 2V Accession Number(s): [id number] cc: [facility]; Silvia Jose EXAMINATION: XR FOOT, RIGHT [...] Jose Lopez MD 07/02/2024 03:53 PM EDT RP Dictated By: Jose Urias MD Signed By: <Electronically signed by Jose Dumont MDin OV> 07/02/24 1553 DD/ 1501 TD/TT: 07/02/24 1525 Sales Operations Analyst: [facility] External Provider IMG XR PROCEDURES Final Result documented in this encounter Visit Diagnoses Not on filedocumented in this encounter Additional Health Concerns Assessment Noted Time PHQ-9 Depression Total Score: 13 024 4:37 PM EDT documented as of this encounter Care Teams President And Cmo Relationship Specialty Start Date End Date Toyin Pollard FNP [address] [place] [address] PCP - General Family Medicine 01/11/21 Satish Brennan MD 10 [facility] 104 [place] [address] Endocrinology 02/22/24 Jacob Morrow 5 [place] [address] Pulmonary Disease 02/22/24 Nicolasa Escobar MD [address] [place] [address] Neurology 02/22/24 Shen Davis MD [address] [place] [address] Drive [address] [place] [address] Nephrology 02/22/24 Ellyn Connolly Commercial Artist LetteringMed Care Manager 08/17/23 [facility] 01/11/24 documented as of this encounter
--- OUTSIDE RECORDS SUMMARY | 2024-07-02 18:44 | XMS_ITS | Encounter Summary ---
Author Organization [employer] Address [address] [facility] 7t [place] [address] Care Team Providers Care Front Elevator Operator Name Role Phone Toyin Pollard Primary Care Provider Satish Brennan MD Unavailable Jacob Morrow Unavailable [phone] Nicolasa Escobar MD Unavailable [phone] Shen Davis MD Unavailable [phone] Reason for Visit * Reason Comments Med Refill Encounter Details Date Type Department Care Team (Late st Contact Info) Description 04/12/2024 Refill [facility] MED[facility]INE [address] [place] [address] Toyin Pollard FNP [address] [place], [place] [phone] Long-term current use of opiate analgesic (Primary [...] 04/12/2024 5:16 PM EST Please schedule for NETWORK SUPPORT SPECIALIST, thanks! documented in this encounter Plan of Treatment Upcoming Encounters Date Type Department Care Team (Late st Contact Info) Description 08/05/2024 10:30 AM EDT Office Visit [facility] [address] [place] [address] Toyin Pollard FNP [address] [place] [address] 09/23/2024 11:00 AM EDT Telemedicine [facility] [address] [place] [address] 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 RN 505 [place] [address] documented as of this encounter Goals Goal [...] documented as of this encounter Care Teams Front Elevator Operator Relationship Specialty Start Date End Date Toyin Pollard FNP [address] [place] [address] PCP - General Family Medicine 01/11/21 Satish Brennan MD 10 [facility] 104 [place] [address] Endocrinology 02/22/24 Jacob Morrow 5 [place] [address] Pulmonary Disease 02/22/24 Nicolasa Escobar MD [address] [place] [address] Dr [facility] 140 [place] [address] Neurology 02/22/24 Shen Davis MD 10 [facility] 302 [place] [address] Nephrology 02/22/24 Ellyn Connolly Operating Cost ClerkSales Ambassador 08/17/23 [facility] 01/11/24 documented as of this encounter
--- OUTSIDE RECORDS SUMMARY | 2024-07-02 18:44 | XMS_ITS | Encounter Summary ---
Author Organization [employer] Address [address] [facility] 7t [place] [address] Care Team Providers Care Sheet Metal Worker Helper Name Role Phone Toyin Pollard Primary Care Provider Satish Brennan MD Unavailable [phone] Jacob Morrow Unavailable [phone] Nicolasa Escobar MD Unavailable [phone] Shen Davis MD Unavailable [phone] Reason for Visit * Reason Onset Date Comments FYI 01/25/2024 Encounter Details Date Type Department Care Team (Late st Contact Info) Description 01/25/2024 Telephone [facility] MEDICINE [address] [place], [place] [phone] Toyin Pollard FNP [address] [place], [place] [phone] FYI Social History Tobacco Use Types Packs/Day [...] - 01/25/2024 1:45 PM EST TC from [facility] wanted to report pt Discharged from [facility] on 01/22/24 . Had a Cast on right ankle and was removed due to numbness. Pt now has a boot on . documented in this encounter Plan of Treatment Upcoming Encounters Date Type Department Care Team (Late st Contact Info) Description 08/05/2024 10:30 AM EDT Office Visit [facility] [address] [place] [address] Toyin Pollard FNP [address] [place] [address] 09/23/2024 11:00 AM EDT Telemedicine [facility] [address] [place] [address] 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 RN 505 [place] [address] documented as of this encounter Goals Goal [...] documented as of this encounter Care Teams Sheet Metal Worker Helper Relationship Specialty Start Date End Date Toyin Pollard FNP [address] [place] [address] PCP - General Family Medicine 01/11/21 Satish Brennan MD [address] [place] [address] Endocrinology 02/22/24 Jacob Morrow 5 [place] [address] Pulmonary Disease 02/22/24 Nicolasa Escobar MD [address] [place] [address] Dr [facility] [address] [place] [address] Neurology 02/22/24 Shen Davis MD [address] [place] [address] Nephrology 02/22/24 Ellyn Connolly Director Of Exhibit DevelopmentDrop Crew Laborer 08/17/23 [facility] 01/11/24 documented as of this encounter
--- OUTSIDE RECORDS SUMMARY | 2024-07-02 18:44 | XMS_ITS | Encounter Summary ---
Author Organization [employer] Address [address] [facility] 7t [place] [address] Care Team Providers Care Refinery Superintendent Name Role Phone Toyin Pollard Primary Care Provider Satish Brennan MD Unavailable Jacob Morrow Unavailable [phone] Nicolasa Escobar MD Unavailable [phone] Shen Davis MD Unavailable [phone] Encounter Details Date Type Department Care Team (Late st Contact Info) Description 04/26/2022 Abstract [facility] MEDICINE [address] [place] [address] Toyin Pollard FNP [address] [place] [address] Social History Tobacco Use Types Packs/Day Years [...] Description 08/05/2024 10:30 AM EDT Office Visit [facility]S [address] [place], [place] [phone] Toyin Pollard FNP [address] [place], [place] [phone] 09/23/2024 11:00 AM EDT Telemedicine [facility] [address] [place] [address] 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, RN [address] [place] [address] documented as of this encounter Visit Diagnoses Not on filedocumented in this encounter Care Teams Refinery Superintendent Relationship Specialty Start Date End Date Toyin Pollard FNP [address] [place] [address] PCP - General Family Medicine 01/11/21 Satish Brennan MD [address] [place] [address] Endocrinology 02/22/24 Jacob Morrow 5 [place] [address] Pulmonary Disease 02/22/24 Nicolasa Escobar MD [address] [place] [address] Dr [address] [address] [place] [address] Neurology 02/22/24 Shen Davis MD [address] [place] [address] Nephrology 02/22/24 Ellyn Connolly Automobile Rental ClerkTanning Drum Operator 08/17/23 [facility] 01/11/24 01/21/24 [facility] 01/11/24 documented as of this encounter
--- OUTSIDE RECORDS SUMMARY | 2024-07-02 18:44 | XMS_ITS | Encounter Summary ---
Author Organization [employer] Address 75 [facility] 7t [place] [address] Care Team Providers Care Fur Plucker Name Role Phone Toyin Pollard Primary Care Provider [phone] Satish Brennan MD Unavailable Jacob Morrow Unavailable [phone] Nicolasa Escobar MD Unavailable Shen Davis MD Unavailable [phone] Reason for Visit * Reason Onset Date Comments transportation needed 05/15/2024 Encounter Details Date Type Department Care Team (Late st Contact Info) Description 05/15/2024 Telephone [facility] MEDICINE 230 [place], [place] [phone] Toyin Pollard FNP 505 [place], [place] [phone] transportation needed Social History Tobacco Use Types [...] - 05/15/2024 2:22 PM EST TC from [facility] Order Picker/Assembler to pt reports pt needing stretcher transportation for upcoming visit with [facility] 05/21/24 . Aircraft Landing Gear Inspector believe they are requesting an ambulance service. documented in this encounter Plan of Treatment Upcoming Encounters Date Type Department Care Team (Late st Contact Info) Description 08/05/2024 10:30 AM EDT Office Visit [facility] MED & PEDS [address] [place] [address] Toyin Pollard FNP [address] [place] [address] 09/23/2024 11:00 AM EDT Telemedicine [facility] MED [facility] PEDS [address] [place] [address] 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, RN 505 [place] [address] documented as of this encounter Goals Goal [...] documented as of this encounter Care Teams Fur Plucker Relationship Specialty Start Date End Date Toyin Pollard FNP [address] [place] [address] PCP - General Family Medicine 01/11/21 Satish Brennan MD [address] [facility] [address] [facility] 104 [place] [address] Endocrinology 02/22/24 Jacob Morrow 5 [place] [address] Pulmonary Disease 02/22/24 Nicolasa Escobar MD [address] [place] [address] Dr [address] 140 [place] [address] Neurology 02/22/24 Shen Davis MD [address] [place] [address] Nephrology 02/22/24 Ellyn Connolly Accelerator TechnicianCube Machine Tender 08/17/23 [facility] 01/11/24 documented as of this encounter
--- OUTSIDE RECORDS SUMMARY | 2024-07-02 18:44 | XMS_ITS | Encounter Summary ---
Author Organization [employer] Address [address] [place] [address] 7t [place] [address] Care Team Providers Care Equal Opportunity Assistant Name Role Phone Toyin oPllard Primary Care Provider Satish Brennan MD Unavailable Jacob Morrow Unavailable [phone] Nicolasa Escobar MD Unavailable Shen Davis MD Unavailable [phone] Encounter Details Date Type Department Care Team (Late st Contact Info) Description 03/15/2022 Orders Only [facility] PEDS 505 [place] [address] Ellyn Chery LPN Social History Tobacco Use [...] [facility] 505 [place] [address] Toyin Pollard FNP 505 [place] [address] 09/23/2024 11:00 AM EDT Telemedicine [facility] MED & PEDS [address] [place] [address] 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, RN [address] [place] [address] documented as of this encounter Visit Diagnoses Not on filedocumented in this encounter Care Teams Equal Opportunity Assistant Relationship Specialty Start Date End Date Tyoin Pollard FNP [address] [place] [address] PCP - General Family Medicine 01/11/21 Satish Brennan MD [address] [place] [address] Endocrinology 02/22/24 Jacob Morrow 5 [place] [address] Pulmonary Disease 02/22/24 Nicolasa Escobar MD [address] [place] [address] [facility] 140 [place] [address] Neurology 02/22/24 Shen Davis MD [address] [place] [address] Nephrology 02/22/24 Ellyn Connolly Airline Ticket AgentMotor Generator Set Operator 08/17/23 [facility] 01/11/24 01/21/24 [facility] 01/11/24 documented as of this encounter
--- OUTSIDE RECORDS SUMMARY | 2024-07-02 18:44 | XMS_ITS | Encounter Summary ---
Author Organization [employer] Address 75 [facility] 7t [place] [address] Care Team Providers Care Group Home Paraprofessional Name Role Phone Toyin Pollard LOUIE Primary Care Provider [phone] Satish Brennan MD Unavailable Jacob Morrow Unavailable [phone] Nicolasa Escobar MD Unavailable Shen Davis MD Unavailable [phone] Reason for Visit * Reason Comments controlled substance treatment Encounter Details Date Type Department Care Team ([facility] st Contact Info) Description 06/27/2024 10:30 AM EDT Clinical Support [facility] MED & PEDS [address] [place] [address] 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, RN 505 [place] [address] Pain Social History Tobacco Use Types Packs/Day [...] the past 12 months, has t he [employer], gas, oil or water [employer] threatened to shut off services in [...] RN - 06/27/2024 10:30 AM EDT S: PRINCIPAL PROCESS ENGINEER RV. Patient is bed bound. Patient came [...] she is not comfortable on the stretcher. PRINCIPAL PROCESS ENGINEER Agreement renewed today. O: Pt currently prescribed Tramadol 50mg Q24 PRN. SENIOR UI WEB DEVELOPER verified today. Rx last filled on 06/03/24. Pill count not performed as pt did not bring pills to the visit, 3 expected. Patient states she alwaystakes 1 pill/ day. Last PCP visit was 02/21/24. Pt unable to provide urine sample on her own, straight catheter used. Utox performed, positive for TCA only, patient takes Amitriptyline. A: TELE PRINCIPAL PROCESS ENGINEER Revisit: Chronic Opioid use related to pain. P: Pt to continue taking medication only as prescribed; Next PRINCIPAL PROCESS ENGINEER TELE RV appointment scheduled for 09/23/24 @ 11am. PE with PCP 08/05/24. F/U sooner PRN. Pt verbalized understanding and agreed to plan. documented in this encounter Plan of Treatment Upcoming Encounters Date Type Department Care Team (Late st Contact Info) Description 08/05/2024 10:30 AM EDT Office Visit [facility] MED & PEDS [address] [place] [address] Toyin Pollard FNP [address] [place] [address] 09/23/2024 11:00 AM EDT Telemedicine [facility] MED & PEDS [address] [place], [place] [phone] 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 RN 505 [place], [place] [phone] documented as of this encounter Goals Goal [...] RN - 06/27/2024 11:20 AM EDT Lot# [id number] Exp: 11-06-25 Toyin [place] OF CARE TEST ENTER/EDIT ORDERABLES Final Result documented in this encounter Visit Diagnoses Diagnosis Pain Generalized pain documented in this encounter Additional Health Concerns Assessment Noted Time PHQ-9 Depression Total Score: 13 024 4:37 PM EDT documented as of this encounter Care Teams Group Home Paraprofessional Relationship Specialty Start Date End Date Toyin Pollard FNP 230 [place] [address] PCP - General Family Medicine 01/11/21 Satish Brennan MD [address] [place] [address] Endocrinology 02/22/24 Jacob Morrow 5 [place] [address] Pulmonary Disease 02/22/24 Nicolasa Escobar MD [address] [place] [address] Neurology 02/22/24 Shen Davis MD [address] [place] [address] Nephrology 02/22/24 Ellyn Connolly Full TimePanel Raiser Operator 08/17/23 [facility] 01/11/24 documented as of this encounter
--- OUTSIDE RECORDS SUMMARY | 2024-07-02 18:44 | XMS_ITS | Encounter Summary ---
Author Organization [employer] Address 75 [facility] 7t [place] [address] Care Team Providers Care Actuarial Associate Name Role Phone Toyin Pollard Primary Care Provider Satish Brennan MD Unavailable Jacob Morrow Unavailable [phone] Nicolasa Escobar MD Unavailable Shen Davis MD Unavailable [phone] Encounter Details Date Type Department Care Team (Late st Contact Info) Description 07/13/2022 Orders Only [facility] MEDICINE [address] [place] [address] Toyin Pollard FNP [address] [place], [place] [phone] Social History Tobacco Use Types Packs/Day Years [...] 10:30 AM EDT Office Visit [facility] MED & PEDS 505 [place], [place] [phone] Toyin Pollard FNP [address] [place], [place] [phone] 09/23/2024 11:00 AM EDT Telemedicine [facility] MED [facility] PEDS 505 [place] [address] 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, RN [address] [place] [address] documented as of this encounter Visit Diagnoses Not on filedocumented in this encounter Care Teams Actuarial Associate Relationship Specialty Start Date End Date Toyin Pollard FNP [address] [place] [address] PCP - General Family Medicine 01/11/21 Satish Brennan MD [address] [place] [address] Endocrinology 02/22/24 Jacob Morrow 5 [place] [address] Pulmonary Disease 02/22/24 Nicolasa Escobar MD [address] [place] [address] Dr [facility] 140 [place] [address] Neurology 02/22/24 Shen Davis MD [address] [place] [address] Nephrology 02/22/24 Ellyn Connolly Arts And Sciences DeanAuction Clerk 08/17/23 [facility] 01/11/24 01/21/24 [facility] 01/11/24 documented as of this encounter
== END 2024-07-02 18:49 | disposition left against medical advice (07) ==
PROVIDERS: Physician Assistant Medical; Emergency Provider Emergency Medicine
DX: N39.0 Urinary tract infection, site not specified (principal); S82.831K Other fracture of upper and lower end of right fibula, subsequent encounter for closed fracture with nonunion; X58.XXXD Exposure to other specified factors, subsequent encounter; E87.1 Hypo-osmolality and hyponatremia; J44.9 Chronic obstructive pulmonary disease, unspecified; E11.9 Type 2 diabetes mellitus without complications; I10 Essential (primary) hypertension; E66.01 Morbid (severe) obesity due to excess calories; Z68.45 Body mass index [BMI] 70 or greater, adult; I25.2 Old myocardial infarction; Z74.01 Bed confinement status; Z99.81 Dependence on supplemental oxygen
CPT/HCPCS: 36415; 51701; 73600; 73620; 80053; 81001; 85025; 87086; 87088; 87186; 99283; 99284

== ENCOUNTER → 2024-07-02 15:01 | Outpatient (BNV) | payer MEDICAID, SELFPAY | PROVIDERS: Emergency Provider Emergency Medicine; Visit Provider Radiology Diagnostic Radiology | DX: S82.401K Unspecified fracture of shaft of right fibula, subsequent encounter for closed fracture with nonunion (principal); M19.071 Primary osteoarthritis, right ankle and foot | CPT/HCPCS: 73600; 73620 ==

== ENCOUNTER 2024-07-03 15:32 | Outpatient (REF) | payer MEDICAID, SELFPAY ==
--- OUTSIDE RECORDS SUMMARY | 2024-07-03 18:01 | XMS_ITS | Encounter Summary ---
Author Organization [employer] Address 75 [facility] 7t [place] [address] Care Team Providers Care Certified Coder Name Role Phone Toyin Pollard Primary Care Provider [phone] Satish Brennan MD Unavailable Jacob Morrow Unavailable [phone] Nicolasa Escobar MD Unavailable Shen Davis MD Unavailable [phone] Reason for Visit * Reason Onset Date Comments Durable Medical Equipment 12/19/2023 Encounter Details Date Type Department Care Team (Late st Contact Info) Description 12/19/2023 Telephone [facility] MED & PEDS 505 [place], [place] [phone] Toyin Pollard FNP 505 [place], [place] [phone] Durable Medical Equipment Social History Tobacco Use [...] 12/19/2023 10:27 AM EDT Tc from [facility] caseworker protective services calling to see if DME can be which to mass surgical supply due to [employer] not doing delivery. DME Disposable bed pads documented in this encounter Plan of Treatment Upcoming Encounters Date Type Department Care Team (Late st Contact Info) Description 08/05/2024 10:30 AM EDT Office Visit [facility] MED & PEDS 505 [place] [address] Toyin Pollard FNP 505 [place] [address] 09/23/2024 11:00 AM EDT Telemedicine [facility] MED & PEDS 505 [place] [address] 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, RN [address] [place] [address] documented as of this encounter Goals Goal [...] documented as of this encounter Care Teams Certified Coder Relationship Specialty Start Date End Date Toyin Pollard FNP 230 [place] [address] PCP - General Family Medicine 01/11/21 Satish Brennan MD [address] [place] [address] Endocrinology 02/22/24 Jacob Morrow 5 [place] [address] Pulmonary Disease 02/22/24 Nicolasa Escobar MD [address] [place] [address] Dr [address] [place] [address] Neurology 02/22/24 Shen Davis MD [address] [place] [address] Nephrology 02/22/24 Ellyn Connolly Train DispatcherWarp Dyeing Tender 08/17/23 [facility] 01/11/24 01/21/24 [facility] 01/11/24 documented as of this encounter
--- OUTSIDE RECORDS SUMMARY | 2024-07-03 18:01 | XMS_ITS | Encounter Summary ---
Author Organization [employer] Address [address] [place] [address] 7t [place] [address] Care Team Providers Care Verification Rep Name Role Phone Toyin Pollard Primary Care Provider Satish Brennan MD Unavailable [phone] Jacob Morrow Unavailable [phone] Nicolasa Escobar MD Unavailable Shen Davis MD Unavailable [phone] Reason for Visit * Reason Onset Date Comments MRI order 10/03/2022 FYI 10/03/2022 Encounter Details Date Type Department Care Team (Late st Contact Info) Description 10/03/2022 Telephone [facility] MEDICINE 230 [place], [place] [phone] Toyin Pollard FNP [address] [place], [place] [phone] MRI order ; Social History Tobacco Use [...] - 10/03/2022 2:16 PM EDT Tc from [facility] MRI Dept it service continuity supervisor would like to inform PCP that pt was unable to get MRI done ,due to being a closed scanner , States will be faxing order to [facility] since they have a MRI scanner that is open. Advised will leave message as a FYI if any questions or concerns please contact at [phone] * Telephone Encounter - Azalea Guerrero RN - 10/03/2022 2:05 PM EDT [facility] received updated order. * Telephone Encounter - Clara Simmons - 10/03/2022 9:34 AM EDT Tc from racheal with [facility] requesting a new order for MRI abdomin. States MRI has to be MRI abdomin with and without contrast. She is also requesting a call in regards to ct scan done at [facility]. Please contact racheal at [phone] Fax number: [phone] documented in this encounter Plan of Treatment Upcoming Encounters Date Type Department Care Team (Late st Contact Info) Description 08/05/2024 10:30 AM EDT Office Visit [facility] MED & PEDS 505 [place] [address] Toyin Pollard FNP 505 [place] [address] 09/23/2024 11:00 AM EDT Telemedicine [facility] MED & PEDS 505 [place] [address] 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, MINA [address] [place] [address] documented as of this encounter Visit Diagnoses Not on filedocumented in this encounter Additional Health Concerns Assessment Noted Time PHQ-9 Depression Total Score: 0 09/29/19 23 2:03 PM EDT documented as of this encounter Care Teams Verification Rep Relationship Specialty Start Date End Date Toyin Pollard FNP 230 [place] [address] PCP - General Family Medicine 01/11/21 Satish Brennan MD [address] [place] [address] Endocrinology 02/22/24 Jacob Morrow 5 [place] [address] Pulmonary Disease 02/22/24 Nicolasa Escobar MD [address] [place] [address] Dr [address]ameron 140 [place] [address] Neurology 02/22/24 Shen Davis MD [address] [place] [address] Nephrology 02/22/24 Ellyn Connolly Alpaca FarmerBariatric Nurse 08/17/23 [facility] 01/11/24 01/21/24 [facility] 01/11/24 documented as of this encounter
--- OUTSIDE RECORDS SUMMARY | 2024-07-03 18:01 | XMS_ITS | Encounter Summary ---
Author Organization [employer] Address 75 [facility] 7t [place] [address] Care Team Providers Care Furniture Refinisher Name Role Phone Toyin Pollard Primary Care Provider Satish Brennan MD Unavailable Jacob Morrow Unavailable [phone] Nicolasa Escobar MD Unavailable Shen Davis MD Unavailable [phone] Encounter Details Date Type Department Care Team (Late st Contact Info) Description 07/13/2022 Orders Only [facility] MEDICINE 230 [place] [address] Toyin Pollard FNP 505 [place], [place] [phone] Social History Tobacco Use Types Packs/Day Years [...] 08/05/2024 10:30 AM EDT Office Visit [facility] MED & PEDS 505 [place], [place] [phone] Toyin Pollard FNP 505 [place], [place] [phone] 09/23/2024 11:00 AM EDT Telemedicine [facility] MED & PEDS 505 [place] [address] 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, RN [address] [place] [address] documented as of this encounter Visit Diagnoses Not on filedocumented in this encounter Care Teams Furniture Refinisher Relationship Specialty Start Date End Date Toyin Pollard FNP [address] [place] [address] PCP - General Family Medicine 01/11/21 Satish Brennan MD [address] [place] [address] Endocrinology 02/22/24 Jacob Morrow 5 [place] [address] Pulmonary Disease 02/22/24 Nicolasa Escobar MD [address] [place] [address] Dr [facility] 140 [place] [address] Neurology 02/22/24 Shen Davis MD [address] [place] [address] Nephrology 02/22/24 Ellyn Connolly Maintenance Mechanic 2Nd ShiftContract Engineer 08/17/23 [facility] 01/11/24 01/21/24 [facility] 01/11/24 documented as of this encounter
--- OUTSIDE RECORDS SUMMARY | 2024-07-03 18:01 | XMS_ITS | Encounter Summary ---
Author Organization [employer] Address 75 [facility] 7t [place] [address] Care Team Providers Care Supervisor Loading Name Role Phone Toyin Pollard Primary Care Provider [phone] Satish Brennan MD Unavailable Jacob Morrow Unavailable [phone] Nicolasa Escobar MD Unavailable Shen Davis MD Unavailable [phone] Encounter Details Date Type Department Care Team (Late st Contact Info) Description 04/22/2024 Telephone [facility] MEDICINE 230 [place], [place] [phone] Toyin Pollard FNP [address] [place], [place] [phone] Social History Tobacco Use Types Packs/Day Years [...] the past 12 months, has t he [employer], gas, oil or water company threatened to [...] [facility] MED & PEDS 505 [place] [address] Toyin Pollard FNP 505 [place] [address] 09/23/2024 11:00 AM EDT Telemedicine [facility] MED & PEDS 505 [place] [address] 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, MINA 505 [place] [address] documented as of this encounter Goals Goal [...] documented as of this encounter Care Teams Supervisor Loading Relationship Specialty Start Date End Date Toyin Pollard FNP 230 [place] [address] PCP - General Family Medicine 01/11/21 Satish Brennan MD [address] [place] [address] Endocrinology 02/22/24 Jacob Morrow 5 [place] [address] Pulmonary Disease 02/22/24 Nicolasa Escobar MD [address] [facility] 140 [place] [address] Neurology 02/22/24 Shen Davis MD [address] [place] [address] Nephrology 02/22/24 Ellyn Connolly Senior AssociateNursery Worker 08/17/23 [facility] 01/11/24 documented as of this encounter
--- OUTSIDE RECORDS SUMMARY | 2024-07-03 18:01 | XMS_ITS | Encounter Summary ---
Author Organization [employer] Address 75 [facility] 7t [place] [address] Care Team Providers Care Director Of Acquisitions Name Role Phone Toyin Pollard Primary Care Provider Satish Brennan MD Unavailable Jacob Morrow Unavailable [phone] Nicolasa Escobar MD Unavailable Shen Davis MD Unavailable [phone] Reason for Visit * Reason Onset Date Comments Durable Medical Equipment 02/19/2024 Encounter Details Date Type Department Care Team (Late st Contact Info) Description 02/19/2024 Telephone [facility] MEDICINE 230 [place], [place] [phone] Toyin Pollard FNP 505 [place], [place] [phone] Durable Medical Equipment Social History Tobacco Use [...] Ivory LPN - 02/20/2024 10:21 AM EST Vp Design did see Rx was sent to [phone] pt has current RX no need for updates, technical writer Parisa at number below. However no answer and mail box full . Pt has appt tomorrow pt should discussthis need sending to PCP as FYI . Tc from [facility] requesting a new order for pt to be sent over for Poise sanitary pads , adult diapers oversized . Any questions please get in contact with [facility] at the callback number above. Callback [phone] * Telephone Encounter - Christina Paul - 02/19/2024 3:28 PM EST Tc from [facility] requesting a new order for pt to be sent over for Poise sanitary pads , adult diapers oversized . Any questions please get in contact with [facility] at the callback number above. Callback [phone] documented in this encounter Plan of Treatment Upcoming Encounters Date Type Department Care Team ([facility] st Contact Info) Description 08/05/2024 10:30 AM EDT Office Visit [facility] MED & PEDS 505 [place] [address] Toyin Pollard FNP 505 [place] [address] 09/23/2024 11:00 AM EDT Telemedicine [facility] MED & PEDS 505 [place] [address] 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, MINA 505 [place], [place] documented as of this encounter Goals [...] of this encounter Care Teams Director Of Acquisitions Relationship Specialty Start Date End Date Toyin Pollard FNP [address] [place] [address] PCP - General Family Medicine 01/11/21 Satish Brennan MD [address] [facility] [address] [place] [address] Endocrinology 02/22/24 Jacob Morrow 5 [place] [address] Pulmonary Disease 02/22/24 Nicolasa Escobar MD [address] [place] [address] [place] [address] Neurology 02/22/24 Shen Davis MD [address] [facility] [address] [place] [address] Nephrology 02/22/24 Ellyn Connolly Software Tools EngineerBarrel Rib Matting Machine Operator 08/17/23 [facility] 01/11/24 documented as of this encounter
--- OUTSIDE RECORDS SUMMARY | 2024-07-03 18:01 | XMS_ITS | Encounter Summary ---
Author Organization [employer] Address 75 [facility] 7t [place] [address] Care Team Providers Care Safety Risk Lead Name Role Phone Toyin Pollard LOUIE Primary Care Provider Satish Brennan MD Unavailable Jacob Morrow Unavailable [phone] Nicolasa Escobar MD Unavailable Shen Davis MD Unavailable [phone] Reason for Visit * Reason Comments Med Refill Encounter Details Date Type Department Care Team (Late st Contact Info) Description 08/21/[address] [facility] MEDICINE 230 [place], [place] [phone] Agustina Toribio MD 230 [place], [place] [phone] Social History Tobacco Use Types Packs/Day Years [...] the past 12 months, has t he [employer], gas, oil or water company threatened to [...] Visit [facility] MED & PEDS 505 [place] [address] Toyin Pollard FNP 505 [place] [address] 09/23/2024 11:00 AM EDT Telemedicine [facility] MED & PEDS 505 [place] [address] 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, MINA 505 [place] [address] documented as of this encounter Goals Goal [...] documented as of this encounter Care Teams Safety Risk Lead Relationship Specialty Start Date End Date Phalen, Toyin, ALARM INVESTIGATOR 230 [place] [address] PCP - General Family Medicine 01/11/21 Satish Brennan MD [address] [place] [address] Endocrinology 02/22/24 Jacob Morrow [address] [place] [address] Pulmonary Disease 02/22/24 Nicolasa Escobar MD [address] [place] [address] [address] Neurology 02/22/24 Shen Davis MD [address] [place] [address] Nephrology 02/22/24 Ellyn Connolly CyberathleteContact Center Assistant 08/17/23 [facility] 01/11/24 01/21/24 [facility] 01/11/24 documented as of this encounter
--- OUTSIDE RECORDS SUMMARY | 2024-07-03 18:01 | XMS_ITS | Encounter Summary ---
Author Organization [employer] Address 75 [facility] 7t [place] [address] Care Team Providers Care Public Health Registrar Name Role Phone Toyin Pollard Primary Care Provider Satish Brennan MD Unavailable Jacob Morrow Unavailable [phone] Nicolasa Escobar MD Unavailable Shen Davis MD Unavailable [phone] Reason for Visit * Reason Onset Date Comments PT1 10/04/2022 Encounter Details Date Type Department Care Team (Late st Contact Info) Description 10/04/2022 Telephone [facility] MEDICINE 230 [place], [place] [phone] Toyin Pollard FNP 505 [place], [place] [phone] PT1 Social History Tobacco Use Types Packs/Day [...] [facility] to Location:[address] [place] [address] [address] [place] [address] Specialty: MRI Date&Time: 10/11/22 @ 9am Student Services Representative: n/a Pt does uses a scooter documented in this encounter Plan of Treatment Upcoming Encounters Date Type Department Care Team (Late st Contact Info) Description 08/05/2024 10:30 AM EDT Office Visit [facility] MED & PEDS 505 [place] [address] Toyin Pollard FNP 505 [place] [address] 09/23/2024 11:00 AM EDT Telemedicine [facility] MED & PEDS 505 [place] [address] 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, RN 505 [place] [address] documented as of this encounter Visit Diagnoses Not on filedocumented in this encounter Additional Health Concerns Assessment Noted Time PHQ-9 Depression Total Score: 0 09/29/19 23 2:03 PM EDT documented as of this encounter Care Teams Public Health Registrar Relationship Specialty Start Date End Date Toyin Pollard FNP [address] [place] [address] PCP - General Family Medicine 01/11/21 Satish Brennan MD [address] [place] [address] Endocrinology 02/22/24 Jacob Morrow [address] [place] [address] Pulmonary Disease 02/22/24 Nicolasa Escobar MD [address] [facility] [address] [address] Neurology 02/22/24 Shen Davis MD [address] [facility] [address] [place] [address] Nephrology 02/22/24 Ellyn Connolly Shutdown CoordinatorAppraisal Manager 08/17/23 [facility] 01/11/24 01/21/24 [facility] 01/11/24 documented as of this encounter
--- OUTSIDE RECORDS SUMMARY | 2024-07-03 18:01 | XMS_ITS | Encounter Summary ---
Author Organization [employer] Address 75 [facility] 7t [place] [address] Care Team Providers Care Manager Interventional Name Role Phone Toyin Pollard Primary Care Provider Satish Brennan MD Unavailable Jacob Morrow Unavailable [phone] Nicolasa Escobar MD Unavailable Shen Davis MD Unavailable [phone] Reason for Visit * Reason Onset Date Comments Durable Medical Equipment 07/06/2022 Encounter Details Date Type Department Care Team (Late st Contact Info) Description 07/06/2022 Telephone [facility] MEDICINE 230 [place] [address] Toyin Pollard FNP 505 [place], [place] [phone] Durable Medical Equipment Social History Tobacco Use [...] [facility] 505 [place] [address] Toyin Pollard FNP 505 [place] [address] 09/23/2024 11:00 AM EDT Telemedicine [facility] MED & PEDS 505 [place] [address] 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 RN 505 [place] [address] documented as of this encounter Visit Diagnoses Not on filedocumented in this encounter Care Teams Manager Interventional Relationship Specialty Start Date End Date Toyin Pollard FNP 230 [place] [address] PCP - General Family Medicine 01/11/21 Satish Brennan MD [address] [facility] 104 [place] [address] Endocrinology 02/22/24 Jacob Morrow 5 [place] [address] Pulmonary Disease 02/22/24 Nicolasa Escobar MD [address] [place] [address] Dr Kameron 140 [place] [address] Neurology 02/22/24 Shen Davis MD [address] [place] [address] Nephrology 02/22/24 Ellyn Connolly Watch Manufacturing SupervisorInformal Waiter/Waitress 08/17/23 [facility] 01/11/24 01/21/24 [facility] 01/11/24 documented as of this encounter
--- OUTSIDE RECORDS SUMMARY | 2024-07-03 18:01 | XMS_ITS | Encounter Summary ---
Author Organization [employer] Address 75 [facility] 7[place] [address] Care Team Providers Care Die Drawing Checker Name Role Phone Toyin Pollard Primary Care Provider Satish Brennan MD Unavailable Jacob Morrow Unavailable [phone] Nicolasa Escobar MD Unavailable Shen Davis MD Unavailable [phone] Reason for Visit * Reason Onset Date Comments PT1 11/02/2022 Encounter Details Date Type Department Care Team (Late st Contact Info) Description 11/02/2022 Telephone [facility] MEDICINE 230 [place], [place] [phone] Toyin Pollard FNP 505 [place], [place] [phone] PT1 Social History Tobacco Use Types Packs/Day [...] with better life requesting a PT1 Location: [facility] Specialty: Provider or clinic appts Date&Time:n/A Experimental Aircraft Mechanic:N/a documented in this encounter Plan of Treatment Upcoming Encounters Date Type Department Care Team (Late st Contact Info) Description 08/05/2024 10:30 AM EDT Office Visit [facility] MED & PEDS 505 [place] [address] Toyin Pollard FNP 505 [place] [address] 09/23/2024 11:00 AM EDT Telemedicine [facility] MED & PEDS 505 [place] [address] 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, RN 505 [place] [address] documented as of this encounter Visit Diagnoses Not on filedocumented in this encounter Additional Health Concerns Assessment Noted Time PHQ-9 Depression Total Score: 0 09/29/19 23 2:03 PM EDT documented as of this encounter Care Teams Die Drawing Checker Relationship Specialty Start Date End Date Toyin Pollard FNP 230 [place] [address] PCP - General Family Medicine 01/11/21 Satish Brennan MD [address] [place] [address] Endocrinology 02/22/24 Jacob Morrow 5 [place] [address] Pulmonary Disease 02/22/24 Nicolasa Escobar MD [address] [place] [address] [place] [address] Neurology 02/22/24 Shen Davis MD [address] [place] [address] Nephrology 02/22/24 Ellyn Connolly Silver Lap Machine TenderRag Cutting Machine Tender 08/17/23 [facility] 01/11/24 01/21/24 [facility] 01/11/24 documented as of this encounter
--- OUTSIDE RECORDS SUMMARY | 2024-07-03 18:01 | XMS_ITS | Encounter Summary ---
Author Organization [employer] Address 75 [facility] 7t [place] [address] Care Team Providers Care Fun House Attendant Name Role Phone Toyin Pollard Primary Care Provider Satish Brennan MD Unavailable [phone] Jacob Morrow Unavailable [phone] Nicolasa Escobar MD Unavailable Shen Davis MD Unavailable [phone] Encounter Details Date Type Department Care Team (Late Contact Info) Description 05/24/2022 Abstract [facility] MEDICINE 230 [place] [address] Toyin Pollard FNP 505 [place], [place] [phone] Social History Tobacco Use Types Packs/Day Years [...] Upcoming Encounters Date Type Department Care Team [facility] Description 08/05/2024 10:30 AM EDT Office Visit [facility] MED & PEDS 505 [place] [address] Toyin Pollard FNP 505 [place] [address] 09/23/2024 11:00 AM EDT Telemedicine [facility] MED & PEDS 505 [place] [address] 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, MINA [address] [place] [address] documented as of this encounter Visit Diagnoses Not on filedocumented in this encounter Care Teams Fun House Attendant Relationship Specialty Start Date End Date Toyin Pollard FNP [address] [place] [address] PCP - General Family Medicine 01/11/21 Satish Brennan MD [address] [place] [address] Endocrinology 02/22/24 Jacob Morrow 5 [place] [address] Pulmonary Disease 02/22/24 Nicolasa Escobar MD [address] [place] [address] Neurology 02/22/24 Shen Davis MD [address] [facility] [address] [place] [address] Nephrology 02/22/24 Ellyn Connolly Vehicle MechanicHip Hop Dance Instructor 08/17/23 [facility] 01/11/24 01/21/24 [facility] 01/11/24 documented as of this encounter
--- OUTSIDE RECORDS SUMMARY | 2024-07-03 18:01 | XMS_ITS | Encounter Summary ---
Author Organization [employer] Address [address] [place] [address] 7t [place] [address] Care Team Providers Care Wind Turbine Service Technician Name Role Phone Toyin Pollard Primary Care Provider Satish Brennan MD Unavailable Jacob Morrow Unavailable [phone] Nicolasa Escobar MD Unavailable Shen Davis MD Unavailable [phone] Encounter Details Date Type Department Care Team (Late st Contact Info) Description 09/12/2022 Orders Only [facility] MEDICINE [address] [place] [address] Patrica Grimaldo LPN Social History Tobacco Use [...] Description 08/05/2024 10:30 AM EDT Office Visit [facility] MED & PEDS 505 [place] [address] Toyin Pollard FNP 505 [place] [address] 09/23/2024 11:00 AM EDT Telemedicine [facility] MED & PEDS [address] [place] [address] Margret Hector, RN [address] [place] [address] documented as of this encounter Visit Diagnoses Not on filedocumented in this encounter Care Teams Wind Turbine Service Technician Relationship Specialty Start Date End Date Toyin Pollard FNP 230 [place] [address] PCP - General Family Medicine 01/11/21 Satish Brennan MD [address] [place] [address] Endocrinology 02/22/24 Jacob Morrow 5 [place] [address] Pulmonary Disease 02/22/24 Nicolasa Escobar MD [address] [place] [address] Dr [facility] 140 [place] [address] Neurology 02/22/24 Shen Davis MD [address] [place] [address] Nephrology 02/22/24 Ellyn Connolly Deck BuilderKinesiologist 08/17/23 [facility] 01/11/24 01/21/24 [facility] 01/11/24 documented as of this encounter
--- OUTSIDE RECORDS SUMMARY | 2024-07-03 18:01 | XMS_ITS | Encounter Summary ---
Author Organization [employer] Address [address] [facility] 7t [place] [address] Care Team Providers Care Deputy Fire Chief Name Role Phone Toyin Pollard Primary Care Provider Satish Brennan MD Unavailable [phone] Jacob Morrow Unavailable [phone] Nicolasa Escobar MD Unavailable Shen Davis MD Unavailable [phone] Reason for Visit * Reason Onset Date Comments transportation needed 05/15/2024 Encounter Details Date Type Department Care Team (Late st Contact Info) Description 05/15/2024 Telephone [facility] MEDICINE 230 [place], [place] [phone] Toyin Pollard FNP 505 [place], [place] [phone] transportation needed Social History Tobacco Use Types [...] - 05/15/2024 2:22 PM EST TC from [facility] Space Technologist to pt reports pt needing stretcher transportation for upcoming visit with [facility] 05/21/24 . Hide Curer believe they are requesting an ambulance service. documented in this encounter Plan of Treatment Upcoming Encounters Date Type Department Care Team (Late st Contact Info) Description 08/05/2024 10:30 AM EDT Office Visit [facility] MED & PEDS 505 [place] [address] Toyin Pollard FNP 505 [place] [address] 09/23/2024 11:00 AM EDT Telemedicine [facility] MED & PEDS 505 [place] [address] Margret Hector, RN 505 [place] [address] documented as of this encounter Goals Goal [...] documented as of this encounter Care Teams Deputy Fire Chief Relationship Specialty Start Date End Date Toyin Pollard FNP 230 [place] [address] PCP - General Family Medicine 01/11/21 Satish Brennan MD [address] [facility] [address] [facility] [address] [facility] 104 [place] [address] Endocrinology 02/22/24 Jacob Morrow 5 [place] [address] Pulmonary Disease 02/22/24 Nicolasa Escobar MD [address] [place] [address] Dr [facility] 140 [place] [address] Neurology 02/22/24 Shen Davis MD [address] [place] [address] Nephrology 02/22/24 Ellyn Connolly Devulcanizer HeadDirector Perioperative 08/17/23 [facility] 01/11/24 documented as of this encounter
--- OUTSIDE RECORDS SUMMARY | 2024-07-03 18:01 | XMS_ITS | Encounter Summary ---
Author Organization [facility] Address [address] [facility] 7t [place] [address] Care Team Providers Care Financial Coach Name Role Phone Toyin Pollard LOUIE Primary Care Provider Satish Brennan MD Unavailable [phone] Jacob Morrow Unavailable [phone] Nicolasa Escobar MD Unavailable [phone] Shen Davis MD Unavailable [phone] Reason for Visit * Reason Comments Med Refill Encounter Details Date Type Department Care Team (Late st Contact Info) Description 08/24/2023 Refill [facility] MEDICINE 230 [place], [place] [phone] Agustina Toribio MD 230 [place], [place] [phone] Social History Tobacco Use Types Packs/Day Years [...] the past 12 months, has t he [employer] gas, oil or water company threatened to [...] [facility] MED & PEDS 505 [place] [address] Toyin Pollard FNP 505 [place] [address] 09/23/2024 11:00 AM EDT Telemedicine [facility] MED & PEDS 505 [place] [address] Margret Hector, MINA 505 [place] [address] documented as of this encounter Goals Goal [...] documented as of this encounter Care Teams Financial Coach Relationship Specialty Start Date End Date Phalen, Toyin, AEROSPACE TECHNICIAN 230 [place] [address] PCP - General Family Medicine 01/11/21 Satish Brennan MD [address] [place] [address] Endocrinology 02/22/24 Jacob Morrow [address] [place] [address] Pulmonary Disease 02/22/24 Nicolasa Escobar MD [address] [place] [address] [address] Neurology 02/22/24 Shen Davis MD [address] [place] [address] Nephrology 02/22/24 Ellyn Connolly Fruit PreserverNatural Sciences Manager 08/17/23 [facility] 01/11/24 01/21/24 [facility] 01/11/24 documented as of this encounter
--- OUTSIDE RECORDS SUMMARY | 2024-07-03 18:01 | XMS_ITS | Encounter Summary ---
Author Organization [employer] Address [address] [facility] 7t [place] [address] Care Team Providers Care Law Writer Name Role Phone JuddToyin barry LOUIE Primary Care Provider Satish Brennan MD Unavailable [phone] Jacob Morrow Unavailable [phone] Nicolasa Escobar MD Unavailable Shen Davis MD Unavailable [phone] Encounter Details Date Type Department Care Team (Late st Contact Info) Description 07/20/2023 Orders Only [facility] MEDICINE 230 [place], [place] [phone] Agustina Toribio MD 230 [place], [place] [phone] Hyperkalemia (Primary Dx) Social History Tobacco Use [...] 10:30 AM EDT Office Visit [facility] MED & PEDS 505 [place] [address] Toyin Pollard FNP 505 [place] [address] 09/23/2024 11:00 AM EDT Telemedicine [facility] MED & PEDS 505 [place] [address] Margret Hector, RN 505 [place] [address] Scheduled Orders Name Type Priority Associated Diagnoses [...] documented as of this encounter Care Teams Law Writer Relationship Specialty Start Date End Date Toyin Pollard FNP 230 [place] [address] PCP - General Family Medicine 01/11/21 Satish Brennan MD [address] [place] [address] Endocrinology 02/22/24 Jacob Morrow 5 [place] [address] Pulmonary Disease 02/22/24 Nicolasa Escobar MD [address] [place] [address] [place] [address] Neurology 02/22/24 Shen Davis MD [address] [place] [address] Nephrology 02/22/24 Ellyn Connolly Strip DeburrerHome Care Associate 08/17/23 [facility] 01/11/24 01/21/24 [facility] 01/11/24 documented as of this encounter
--- OUTSIDE RECORDS SUMMARY | 2024-07-03 18:01 | XMS_ITS | Encounter Summary ---
Author Organization [employer] Address [address] [facility] 7t [place] [address] Care Team Providers Care Academic Director Name Role Phone Toyin Pollard Primary Care Provider [phone] Satish Brennan MD Unavailable Jacob Morrow Unavailable [phone] Nicolasa Escobar MD Unavailable Shen Davis MD Unavailable [phone] Reason for Visit * Reason Onset Date Comments Hospital Follow-up 11/06/2023 Encounter Details Date Type Department Care Team (Late st Contact Info) Description 11/06/2023 Telephone [facility] MEDICINE 230 [place] [address] Toyin Pollard FNP 505 [place], [place] [phone] Hospital Follow-up Social History Tobacco Use Types [...] from pt requesting a F appt. Hospital: [facility] Date of admission: 10/25 Discharge date: 11/03 Diagnosed: Ankle injury documented in this encounter Plan of Treatment Upcoming Encounters Date Type Department Care Team (Late st Contact Info) Description 08/05/2024 10:30 AM EDT Office Visit [facility] MED & PEDS 505 [place] [address] Toyin Pollard FNP 505 [place] [address] 09/23/2024 11:00 AM EDT Telemedicine [facility] MED & PEDS 505 [place] [address] Margret Hector, RN 505 [place] [address] documented as of this encounter Goals Goal [...] documented as of this encounter Care Teams Academic Director Relationship Specialty Start Date End Date Toyin Pollard FNP [address] [place] [address] PCP - General Family Medicine 01/11/21 Satish Brennan MD [address] [facility] [address] [facility] 104 [place] [address] Endocrinology 02/22/24 Jacob Morrow 5 [place] [address] Pulmonary Disease 02/22/24 Nicolasa Escobar MD [address] [place] [address] Dr [address] 140 [place] [address] Neurology 02/22/24 Shen Davis MD [address] [place] [address] Nephrology 02/22/24 Ellyn Connolly Water Purification ChemistIndustrial Technology Teacher 08/17/23 [facility] 01/11/24 01/21/24 [facility] 01/11/24 documented as of this encounter
--- OUTSIDE RECORDS SUMMARY | 2024-07-03 18:01 | XMS_ITS | Encounter Summary ---
Author Organization [employer] Address [address] [facility] 7t [place] [address] Care Team Providers Care Data Systems Manager Name Role Phone Toyin Pollard Primary Care Provider Satish Brennan MD Unavailable [phone] Jacob Morrow Unavailable [phone] Nicolasa Escobar MD Unavailable Shen Davis MD Unavailable [phone] Reason for Visit * Reason Onset Date Comments Referral 01/08/2024 Encounter Details Date Type Department Care Team ([facility] st Contact Info) Description 01/08/2024 Telephone [facility] MEDICINE 230 [place] [address] Toyin Pollard FNP 505 [place], [place] [phone] Referral Social History Tobacco Use Types Packs/Day [...] - 01/08/2024 2:01 PM EDT Tc from [facility] Jennifer from [facility] . Amanda indicates they will process the referral for mpt therapy. documented in this encounter Plan of Treatment Upcoming Encounters Date Type Department Care Team ([facility] st Contact Info) Description 08/05/2024 10:30 AM EDT Office Visit [facility] MED & PEDS 505 [place] [address] Toyin Pollard FNP 505 [place] [address] 09/23/2024 11:00 AM EDT Telemedicine [facility] MED & PEDS 505 [place] [address] Margret Hector, RN 505 [place] [address] documented as of this encounter Goals Goal [...] as of this encounter Care Teams Data Systems Manager Relationship Specialty Start Date End Date Toyin Pollard FNP [address] [place] [address] PCP - General Family Medicine 01/11/21 Satish Brennan MD [address] [facility] [address] [facility] 104 [place] [address] Endocrinology 02/22/24 Jacob Morrow 5 [place] [address] Pulmonary Disease 02/22/24 Nicolasa Escobar MD [address] [place] [address] Neurology 02/22/24 Shen Davis MD [address] [facility] [address] [facility] [address] [facility] 302 [place] [address] Nephrology 02/22/24 Ellyn Connolly Town MarshalManager Center 08/17/23 [facility] 01/11/24 01/21/24 [facility] 01/11/24 documented as of this encounter
--- OUTSIDE RECORDS SUMMARY | 2024-07-03 18:01 | XMS_ITS | Data Portability ---
Author Organization [facility], Main Office Address [address] [place] [address] Care Team Providers Care Second Mate Name Role Phone [facility] OTHER [facility] Primary Care Provider [phone] Assessment No assessment recorded. Plan of Treatment [...] By Organization Details Last Modified Time 04/28/2021 [id number] CBCD, CMP in am -last Mg therapeutic on diuretics, no need to repeat Total time spent 25 minutes, >50% in [id number] counseling and coordination of care [email or web address] Not available 04/28/2021 14:36:22 05/12/2021 [id number] F/U Appointments : PCP TBD Total time spent on discharge: 40 minutes No scripts needed [email or web address] Not available 05/12/2021 16:53:45 Reason for Referral None Reported. Problems Name Problem SNOMED Code Status Onset Date Resolution Date Notes Provider Name and Address Organization Details Recorded Time Obstructive sleep apnea syndrome 23443452 Active 2019 Michelle Omak [address], [address], [place], [address], [facility] 0 08:58:54 Acute hypercapnic respiratory failure 200141535 Active 2019 Michelle Omak [address], [address], [place], [address], [facility] 0 08:59:55 Closed fracture of left ankle 3718490685484 9108 Active [address], [address], [place], [address], [facility] 0 09:03:18 COVID-19 847260536 Active [address], [address], [place], [address], [facility] 0 09:03:58 Hyperkalemi a 41271375 Active [address], [address], [place], [address], [facility] 0 09:05:45 Syncope and collapse 391197379 Active [address], [address], [place], [address], [facility] 0 09:06:17 Hypothyroid ism 37598282 Active [address], [address], [place], [address], [facility] 0 09:07:04 Essential hypertensio n 16254248 Active [address], [address], [place], [address], [facility] 0 09:08:10 Mixed hyperlipide matilde 929038769 Active [address], [address], [place], [address], [facility] 0 09:08:25 Bipolar disorder 41316445 Active [address], [address], [place], [address], [facility] 0 09:09:02 Type 2 diabetes mellitus without complicatio n 853127976 Active [address], [address], [place], [address], [facility] 0 09:13:23 Asthma 710540880 Active [address], [address], [place], [address], [facility] 0 09:13:44 Type 2 diabetes mellitus 20748180 Active 2021 Becka Zafar MD [address], [address], [place], [address], [facility] 2 20:52:53 Morbid obesity 055660595 Active 2021 Becka Zafar MD [address], [address], [place], [address], [facility] 2 20:53:24 Schizoaffec tive disorder, bipolar type 80269593 Active 2021 Becka Zafar MD [address], [address], [place], [address], [facility] 2 21:21:28 Tobacco dependence syndrome 13006871 Active 2021 Becka Zafar MD [address], [address], [place], [address], [facility] 2 21:22:00 Chronic obstructive pulmonary disease 12232359 Active 2021 Becka Zafar MD [address], [address], [place], [address], [facility] 2 21:25:49 Moderate persistent asthma 608222911 Active 2021 Becka Zafar MD [address], [address], [place], [address], [facility] 2 21:25:50 Depressive disorder 00474187 Active 2021 Becka Zafar MD [address], [address], [place], [address], [facility] 2 21:26:11 Chronic constipatio n 064276663 Active 2021 Becka Zafar MD [address], [place], [address], [facility] 2 21:26:21 Vitamin D deficiency 52942824 Active 2021 Becka Zafar MD [address], [address], [place], [address], [facility] 2 21:27:35 Gastroesoph ageal reflux disease without esophagitis 568206664 Active 2021 Becka Zafar MD [address], [address], [place], [address], [facility] 2 21:28:05 Coronary arterioscle rosis 46336904 Active 2021 Becka Zafar MD [address], [place], [address], [facility] 2 21:35:19 Allergic rhinitis 54458822 Active 2021 Becka Zafar MD [address], [address], [place], [address], [facility] 2 21:36:27 Edema of lower extremity 174171439 Active 2021 Becka Zafar MD [address], [place], [address], [facility] 2 21:36:46 Cholelithia sis without obstruction 84330031 Active 2021 Becka Zafar MD [address], [address], [place], [address], [facility] 2 21:43:26 Chronic back pain 414133962 Active 2021 Becka Zafar MD [address] [place] [address], [address], [place], [address], [facility] 2 21:44:01 Problem Notes None recorded. [...] Not available Not available Not available 03/07/2020 39314 9 RxNorm irrit abili ty Not Available Not Available Not Available latex environme nt,medica tion rash Not available Not available 03/07/2020 60494 91 RxNorm Not Available Not Available Not Available 94721 morphine medicatio n rash Not available Not available 04/25/2021 7052 RxNorm Not Available Not Available Not Available 99798 tetracycl ine medicatio n hives Not available Not available 04/25/2021 42541 RxNorm Not Available Not Available Not Available Medications Name Sig Start Date Stop Date Status Note LastModified by Organization Details LastModified Time Latuda 40 mg tablet active [facility] Latuda Not Available Not Available Not Available Vitals Date Recorded Body height Body mass index (BMI) Body weight Heart rate Respiratory rate Body temperature Oxygen saturation Oxygen saturation in Arterial blood by Pulse oximetry Systolic blood pressure Diastolic blood pressure Provider Name and Address Organization Details Last Updated DateTime 2 170.18 cm 59.2 kg/m2 153767. 63 g 65 /min 18 /min 97.2 [degF] 96 % 96 % 119 mm[Hg] 52 mm[Hg] Becka Zafar MD [address], [facility] [address], [place], [address], [facility] 2 12:35:25 Date Recorded Body height Oxygen saturation Oxygen saturation in Arterial blood by Pulse oximetry Systolic blood pressure Diastolic blood pressure Provider Name and Address Organization Details Last Updated DateTime 2 170.18 cm 90 % 90 % 119 mm[Hg] 52 mm[Hg] SHAISTA LUJAN PA-C [address], [facility] [address], [place], [address], [facility] 2 13:53:10 Date Recorded Body height Oxygen saturation Oxygen saturation in Arterial blood by Pulse oximetry Systolic blood pressure Diastolic blood pressure Provider Name and Address Organization Details Last Updated DateTime 2 170.18 cm 91 % 91 % 119 mm[Hg] 52 mm[Hg] [facility] [address], [place], [address], [facility] 2 12:51:39 Date Recorded Body height Respiratory rate Body temperature Heart rate Oxygen saturation Oxygen saturation in Arterial blood by Pulse oximetry Systolic blood pressure Diastolic blood pressure Provider Name and Address Organization Details Last Updated DateTime 2 170.18 cm 18 /min 97.3 [degF] 65 /min 96 % 96 % 119 mm[Hg] 52 mm[Hg] Verenice Adrian wade [facility] 2 12:29:49 Date Recorded Body height Body mass index (BMI) Body weight Heart rate Respiratory rate Body temperature Oxygen saturation Oxygen saturation in Arterial blood by Pulse oximetry Systolic blood pressure Diastolic blood pressure Provider Name and Address Organization Details Last Updated DateTime 2 170.18 cm 59.5 kg/m2 113442. 1 g 71 /min 18 /min 97.1 [degF] 90 % 90 % 128 mm[Hg] 87 mm[Hg] SHAISTA LUJAN PA-C [address], [place], [address], [facility] 2 16:18:59 Social History Question Answer Notes LastModified by Organization Details LastModified Time Tobacco Smoking Status Current Every Day Smoker Michelle Jeanne [address] , [address], [place], [address], [facility] 03/07/2020 09:16:33 Do You Have An Advance Directive? Yes Information not available 04/25/2021 What Is Your Level Of Alcohol Consumption? None [email or web address] Information not available 04/25/2021 What Is Your Code Status? Full Code All Treatments [email or web address] Information not available 04/25/2021 Do You Or Have You Ever Used E-cigarettes Or Vape? Never Used Electronic Cigarettes Information not available 03/07/2020 Where Do You Live? [facility] Information not available 05/05/2021 Legal Guardian? No Information not available 05/05/2021 Do You Have A Medical Power Of Load Test Mechanic? Yes Information not available 03/07/2020 What Was The Date Of Your Most Recent Tobacco Screening? 04/23/2021 [email or web address] Information not available 04/25/2021 Do You Have An Out Of Hospital DNR? No Information not available 04/25/2021 Do You Or Have You Ever Used Smokeless Tobacco? Never Used Smokeless Tobacco Information not available 03/07/2020 How Much Tobacco Do You Smoke? 0.5 PPD [email or web address] Information not available 04/25/2021 Has Tobacco Cessation Counseling Been Provided? Yes [email or web address] Information not available 04/25/2021 On What Date Was Tobacco Cessation Counseling Provided? 04/23/2021 [email or web address] Information not available 04/25/2021 How Many Years Have You Smoked Tobacco? 30 Information not available 03/07/2020 Do You Or Have You Ever Used Any Other Forms Of Tobacco Or Nicotine? No [email or web address] Information not available 04/25/2021 Sex: Unknown Functional Status None recorded. Mental Status None recorded. Family History Relationship Description Onset Age of this Age Resolved Age Notes LastModified by Organization Details LastModified Time Sister Malignant tumor of ovary [email or web address] Not available 2021 19:38:51 Medical History No medical history recorded. Gynecological HistoryNo gynecological history recorded. Obstetrics History GPAL:G 0 P 0 0 0 0 Immunizations Vaccine Type Date Status Note Provider Nam e and Address Organization Details Recorded Time COVID-19, mRNA, LNP-S, PF, 30 mcg/0.3 mL dose 04/01/2020 completed SHAISTA LUJAN PA-C [address], [address], [place], [address], [facility] 04/25/2021 19:22:57 COVID-19, mRNA, LNP-S, PF, 30 mcg/0.3 mL dose 11/20/2020 completed SHAISTA LUJAN PA-C [address], [place], [address], [facility] 04/25/2021 19:33:52 COVID-19, mRNA, LNP-S, PF, 30 mcg/0.3 mL dose 02/24/2021 completed SHAISTA LUJAN PA-C [address], [place], [address], [facility] 04/25/2021 19:34:02 Past Encounters Encounter ID Performer Location Encounter Start Date Encounter Closed Date Diagnosis/Indication Diagnosis SNOMED-CT Code Diagnosis ICD10 Code Diagnosis Note [id number] Michelle Keenanette [facility] [address] [place] [address] 03/07/2020 08:38:10 03/27/2020 08:36:17 COVID-19 705969817 U07.1 +02/27/20c ompleted course of remdesivir and decadronf/ u cards outpatient for ECHO after isolationm onitor resp status Acute hype rcapnic respiratory failure 525632551 J96.02 see HPIseconda ry to covid. pulmonary edemadiure sed with lV lasix, Tx above for covid txCPAP Essential hypertension 19779907 I10 atenolol 50 mg qd, with hold parameters lasix 40 mg qdlisinopr il 10 mg qdmonitor BPs Hypothyroidism 52127142 E03.9 on replacemen t. monitor Bipolar disorder 7176030 4 F31.9 amitriptyl ine 10 mg qdbenztrop ine 2 mg BIDdepakot e 500 mg in am 1000 mg at HSescitalo pram 10 mg qdhydroxyz ine 50 mg tid prnprazosi n 4 mg at HSseroquel 300 mg at HStrazodon e 1-2 tabs at HS? med management contributi ng to syncopal episodesps ych eval prn Tobacco user 526411855 Z 72.0 90 pack year Hx. encourage cessation. monitor Obstructiv e sleep apnea syndrome 73921261 G47.33 has CPAPmonito r Hyperkalemia 00000128 E8 7.5 resolved in acute caremonito r labs Closed fra cture of left ankle 7980330773 0975022 S82.892D see HPIortho rec's for non surgical management repeat xray in 1 weekf/o ortho outpatient LLE NWBPT OT to eval and treatoxyco done and APAP prn for pain.monit or Syncope and collapse 309 305305 R55 see HPIunclear etiology? med management monitor for recurrence Type 2 johnny betes mellitus without complication 269128275 E11.9 glimepirid e 1 mg in am 4 mg at dinnerglar gine 20 U at HSmonitor accuchecks TID Mixed hyperlipidemia 267 291391 E78.2 on statin. monitor Asthma 584949276 J45.90 9 symbicort dailyspiri va qdsingulai r qd flonase qdmonitor resp status [id number] Emely Loyola MD [facility] on [address] [place] [address] 03/11/2020 06:27:35 03/27/2020 08:52:50 Asthma 069579740 J45.30 albuterol HFA 2 puffs a4h prnSymbico rt 160-4.5: 2 puffs bidmontelu kast 10 mg dailytiotr opium 2 puffs dailywill monitor Closed fra cture of left ankle 0303721793 8801154 S82.892D oxycodone 5 mg q4h prnPT/OT fu ortho COVID-19 299659992 U07.1 recovering after treatment with remdesivir and dexamethas onewill continue to monitor closely Essential hypertension 78410082 I10 furosemide 40 mg dailylisin opril 10 mg dailyateno lol 50 mg dailywill monitor Hypothyroidism 97323923 E03.8 levothyrox ine 137 mcg dailywill monitor Mixed hyperlipidemia 267 127246 E78.2 atorvastat in 20 mg dailywill monitor Type 2 johnny betes mellitus without complication 728127805 E11.9 Lantus 20U qhsglimepi ride 1 mg in morning and 4 mg in eveningwil l monitor Schizoaffe ctive disorder 46537641 F25.8 benztropin e 2 mg bidquetiap ine 300 mg at hs prazosin 4 mg at hsdivalpro ex 500 mg in afternoon and 1000 mg in eveningLat uda 50 mg dailysee meds for mixed anxiety and depressive disorder Mixed anxi ety and depressive disorder 910451391 F41.8 citalopram 10 mg dailytrazo done 50 mg at hshydroxyz ine 50 mg q8h prnamitrip tyline 10 mg at hssee meds for schizoaffe ctive disorderwi monitor [id number] Kae Combs [facility] on [address] [place] [address] 03/16/2020 16:00:58 03/26/2020 16:02:23 Intertrigo 21229107 L30.4 Add Nystatin power BID for 10 days. Monitor to resolution Closed fra cture of left ankle 3693902091 2760440 S82.892D oxycodone 5 mg q4h prncont PT/OT fu ortho needs to be scheduled COVID-19 895532596 U07.1 recovering after treatment with remdesivir and dexamethas oneresp status stable-not requiring P9odtgcox recovered Essential hypertension 42356918 I10 furosemide 40 mg dailylisin opril 10 mg dailyateno lol 50 mg dailyBP stable, monitor Type 2 johnny betes mellitus without complication 126846079 E11.9 Lantus 20U qhsglimepi ride 1 mg in morning and 4 mg in eveningAdd blood sugars BID [id number] Kae Combs [facility] on [address] [place] [address] 03/23/2020 13:03:40 03/27/2020 09:40:26 Closed fracture of left ankle 6180016754 7654264 S82.892D Remains NWB on LLEcont PT/OT Has ortho f/u scheduled 04/01Decrea se oxycodone 5 mg Q6h PRN COVID-19 527854126 U07.1 recovering after treatment with remdesivir and dexamethas oneresp status stable-not requiring L6yeaarzr recovered Essential hypertension 63273751 I10 furosemide 40 mg dailylisin opril 10 mg dailyateno lol 50 mg dailyBP stable, monitor Type 2 johnny betes mellitus without complication 625357790 E11.9 Lantus 20U qhsglimepi ride 1 mg in morning and 4 mg in eveningBlo od sugars well controlled Monitor [id number] Kae Combs [facility] on [address] [place] [address] 03/24/2020 14:32:40 03/27/2020 11:02:54 Edema of lower extremity 765587115 R60.0 Increase lasix 40 mg dailyMonit or Loose stool 672696407 R1 9.5 Obtain stool for c. diffIf neg, can add imodium PRNMonitor [id number] Kae Combs [facility] on [address] [place] [address] 04/03/2020 11:00:15 04/06/2020 15:10:08 Closed fracture of left ankle 1709965790 4908935 S82.892D Remains NWB on LLEHas ortho f/u scheduled 2/3Decreas e oxycodone 5 mg Q8h PRN x 3 days then Q12h PRN COVID-19 975845634 U07.1 recovering after treatment with remdesivir and dexamethas oneresp status stable-not requiring M4oletxpg recovered Essential hypertension 84161925 I10 furosemide 40 mg dailylisin opril 10 mg dailyateno lol 50 mg dailyBP stable, monitor Type 2 johnny betes mellitus without complication 433343982 E11.9 Lantus 20 U qhsglimepi ride 1 mg in morning and 4 mg in eveningBlo od sugars well controlled Monitor Edema of l ower extremity 338414437 R60.0 Lasix 40 mg dailyAdd compressio n stocking to RLE [id number] Kae Combs [facility] on [address] [place] [address] 04/07/2020 14:06:25 04/10/2020 13:44:07 Closed fracture of left ankle 7789660228 1936456 S82.892D Remains NWB on LLEHas ortho f/u scheduled 2/3Oxycodo ne Q12h PRN COVID-19 180951715 U07.1 recovering after treatment with remdesivir and dexamethas oneresp status stable-not requiring A4msijjre recovered Type 2 johnny betes mellitus without complication 058506627 E11.9 Lantus 20 U qhsglimepi ride 1 mg in morning and 4 mg in eveningBlo od sugars well controlled Monitor Edema of l ower extremity 928806928 R60.0 Lasix 40 mg dailyCompr ession stocking to RLE [id number] STACY SALEH [facility] on [address] [place] [address] 04/10/2020 12:43:03 04/13/2020 16:35:27 Closed fracture of left ankle 4672133715 3044064 S82.892D Remains NWB on LLEHas ortho f/u scheduled 2/3Oxycodo ne Q12h PRN- DO NOT SEND [facility] HOME, D/C ON DISCHARGE COVID-19 388517500 U07.1 recovering after treatment with remdesivir and dexamethas oneresp status stable-not requiring W9oulmyad recovered Type 2 johnny betes mellitus without complication 227694728 E11.9 Lantus 20 U qhsglimepi ride 1 mg in morning and 4 mg in eveningBlo od sugars well controlled Edema of l ower extremity 701357953 R60.0 Lasix 40 mg dailyCompr ession stocking to RLE Asthma 184940844 J45.30 albuterol HFA 2 puffs a4h prnSymbico rt 160-4.5: 2 puffs bidmontelu kast 10 mg dailytiotr opium 2 puffs daily Essential hypertension 57939259 I10 furosemide 40 mg dailylisin opril 10 mg dailyateno lol 50 mg daily Hypothyroidism 12814700 E03.8 levothyrox ine 137 mcg dailY Mixed hyperlipidemia 267 908011 E78.2 atorvastat in 20 mg daily Schizoaffe ctive disorder 11076949 F25.8 benztropin e 2 mg bidquetiap ine 300 mg at hs prazosin 4 mg at hsdivalpro ex 500 mg in afternoon and 1000 mg in eveningLat uda 50 mg dailysee meds for mixed anxiety and depressive disorder Mixed anxi ety and depressive disorder 750186663 F41.8 citalopram 10 mg dailytrazo done 50 mg at hshydroxyz ine 50 mg q8h prnamitrip tyline 10 mg at hssee meds for schizoaffe ctive disorder [id number] SHAISTA LUJAN PA-C [facility] on [address] [place] [address] 04/23/2021 16:28:13 04/27/2021 13:13:44 Recurrent falls 777951639 R29.6 PT/OT Type 2 johnny betes mellitus without complication 199737682 E11.9 Monitor sugars and adjust meds prnOn EMILIE-I for renal protection Morbid obesity 208458451 E66.01 Outpatient f/u with PCP Essential hypertension 61167331 I10 Monitor BPs and adjust meds prn Hypothyroidism 34578478 E03.9 Consider TSH Obstructiv e sleep apnea syndrome 21325941 G47.33 Needs CPAP Migraine 32923243 G43.90 9 f/u prn Schizoaffe ctive disorder, bipolar type 17619774 F25.0 Consider psych consult Tobacco de pendence syndrome 56671326 F17.200 Counseled 5 minutes on the importance of cessation; not interested in quitting Chronic ob structive pulmonary disease 23402648 J44.9 inhalersf/ u prn Depressive disorder 3548 9007 F32.A No SI/HI/AH/V H Chronic constipation 236 006342 K59.09 scheduled and prn bowel medsf/u prn Vitamin D deficiency 347 51280 E55.9 RepletingO utpatient f/u prn Insomnia c o-occurrent and due to medical condition 4449979873 9105 G47.01 Melatonin Gastroesop hageal reflux disease without esophagitis 778357604 K21.9 Not on medsMonito r and f/u prn Liver enzy mes level above reference range 795412626 R74.01 Normal LFTs on recent labs Coronary arteriosclerosis 83383177 I25.10 Statinclar jonas of supposed to be on ASANot on B-delia Moderate p ersistent asthma 622367324 J45.40 as above Allergic rhinitis 280673 04 J30.9 f/u prn Edema of l ower extremity 472205257 R60.0 f/u prn Advance care planning 71 4018979 Z71.89 Met with patient, who is her own decision-messi wilson, in her room. Reviewed each section of the MOLST and answered questions to her satisfacti on. Form completed, signed, and orders written to reflect the following: Full code with all interventi ons. Total time spent 18 minutes [id number] [facility] on [address] [place] [address] 04/26/2021 14:30:31 05/13/2021 12:50:11 Recurrent falls 724468209 R29.6 PT/OT eval and txsafety precaution s Type 2 johnny betes mellitus without complication 699502410 E11.9 lispro sliding scalelantu s QHSmonitor for s/s of hyper/hypo glycemiaOn EMILIE-I for renal protection Morbid obesity 076629903 E66.01 Outpatient f/u with PCPencoura ge weight loss Essential hypertension 86101333 I10 atenolol 50mg dailylisin opril 10mg qhsMonitor BPs and adjust meds prn Hypothyroidism 74447839 E03.9 monitor TSH prnlevothy roxine 137mcg daily Obstructiv e sleep apnea syndrome 50428537 G47.33 CPAP qhsmonitor sleep pattern Migraine 88449567 G43.90 9 monitor for s/sAPAP prn Schizoaffe ctive disorder, bipolar type 41640270 F25.0 amytripyli ne 10mg qhscitalop cammie 10mg dailyprazo sin 5mg qhsmonitor mood and behaviorps [facility] prn Tobacco de pendence syndrome 46500508 F17.200 encourage cessation Chronic ob structive pulmonary disease 58061340 J44.9 inhalersf/ u prn Moderate p ersistent asthma 134025484 J45.40 monitor resp statusmoni tor labs prn Depressive disorder 3548 9007 F32.A amytripyli ne 10mg qhscitalop cammie 10mg dailyprazo sin 5mg qhsmonitor mood and behaviorps [facility] prn Chronic constipation 236 601275 K59.09 has been experienci ng bouts of diarrheamo nitor bowel pattern Vitamin D deficiency 347 54913 E55.9 monitor levels prn Insomnia c o-occurrent and due to medical condition 4340698484 9105 G47.01 Melatoninm onitor sleep pattern Gastroesop hageal reflux disease without esophagitis 183150780 K21.9 Not on medsmonito r for GI s/s Liver enzy mes level above reference range 330425697 R74.01 Normal LFTs on recent labsmonito r labs prn Coronary arteriosclerosis 32192334 I25.10 atorvastat in 20mg qhsclarify of supposed to be on ASA - ? Allergic rhinitis 954190 04 J30.9 f/u prnmonitor for s/s Edema of l ower extremity 573959784 R60.0 follow weights [id number] Becka Zafar MD [facility] on [address] [place] [address] 04/27/2021 12:32:27 05/13/2021 13:08:56 Recurrent falls 823027625 R29.6 Very deconditio deepika.Needs PT/OT for strengthen ing, balance, gait training, safety and function.C ontinue fall precaution s.Monitor for safety. Morbid obesity 982613338 E66.01 Z68.43 As above. Essential hypertension 27832163 I10 Good control on lasix 40 mg qd, prazosin 5 mg qd and lisinopril 10 mg qd.Monitor BP and labs. Hypothyroidism 02048509 E03.8 Continue levothyrox ine 137 mcg qd.Monitor TSH yearly. Obstructiv e sleep apnea syndrome 37442371 G47.33 Needs CPAP, will see if we can arrange Migraine 02787369 G43.80 9 No current sxs.Amitri pyline and depakote can both be used for prophylaxi s for this, but is primarily on them for mood stabilizer s.Monitor for sxs. Schizoaffe ctive disorder, bipolar type [id number] F25.0 Continue citalopram 10 mg qd, amitriptyl ine 10 mg qhs, Seroquel 400 mg qhs, Melatonin 5 mg qhs,Latuda 60 mg qam, Depakote 500 mg po q 12 pm and 1000 mg qhs, and Cogentin 1 mg BID.Monito r mood and behaviors. Psych consult Tobacco de pendence syndrome 09654936 F17.210 Not interested in quittingCo ntinue to encourage cessation. Chronic ob structive pulmonary disease 70586030 J43.8 At baseline.C ontinue Singulair 10 mg qd, Symbicort 160-4.5 mcg 2 puffs BID, Spiriva 18 mcg qd and albuterol MDI 2 puffs q 4 hrs prn.Montio r resp. status. Moderate p ersistent asthma 962096383 J45.40 as above. Depressive disorder 3548 9007 F33.1 As above. Chronic constipation 236 784667 K59.09 Continue scheduled and prn bowel medsMonito r bowel function. Vitamin D deficiency 347 10863 E56.8 Continue Vit D 2000 IU qd.Monitor levels. Gastroesop hageal reflux disease without esophagitis 136209008 K21.9 No current sxs on no medsMonito r and f/u prn Coronary arteriosclerosis 02305206 I25.10 Continue meds as above and atorvastat in 20 mg qd.Conside r addition of cardioprot ective meds as above and also ASA and beta delia.Mo nitor for sxs.F/U with cardio as planned. Allergic rhinitis 752607 04 J30.89 Continue singulair as above.Meme tor sxs Edema of l ower extremity 224497967 R60.0 Continue lasix and lisinopril as above.Meme tor Type 2 johnny betes mellitus 94579295 E11.65 Will restart humulin SSI, will increase dose to compare more closely with previous humalog dose, but not restarting premeal humalog yet.Increa se lantus from 40U to 52U.Contin ue glimepirid e 4 mg qd.Conside r adding GLP-1 or SGLT-2 both for better blood sugar control and cardioprot ective effect.Mon itor accuchecks QIDEncoura ge healthy eating and physical activity. Chronic back pain 509291 002 M54.59 Continue APAP and tramadol as above.F/U with pain clinic as planned.Co ntinue to encourage wt. loss and physical activity. Cholelithi asis without obstruction [id number] K80.20 Not a candidate for elective surgery per surgeon.Co ntinue tramadol 50 mg BID prn and APAP 650 mg q 6 hrs prn.Monito r sxs. [id number] SHAISTA LUJAN PA-C [facility] on [address] [place] [address] [phone] 3 04/28/2021 13:49:24 05/13/2021 14:05:59 Acute urinary tract infection [id number] N39.0 U/A not overly impressive Will decrease [...] prn Uncontroll ed type 2 diabetes mellitus 519952787 E11.65 Sugars globally elevatedAd d hs fingerstic k with correction al insulinInc rease Lantus from 40 ux qhs to 52 ux qhs (based on total coverage 24 ux x 24 hours at 50%)-given body habitus, might benefit from divided dosingMoni tor sugars and adjust meds prnOn EMILIE-I for renal protection Diarrhea 79404902 R19.7 Hold scheduled bowel meds for loose stoolsCola ce changed from scheduled to prn yesterdayd /c Imodium after 1 week [id number] SHAISTA LUJAN PA-C [facility] on [address] [place] [address] [phone] 3 04/29/2021 12:50:48 05/13/2021 14:30:13 Acute urinary tract infection 831325639 N39.0 Resistant to BactrimLik ellie colonized with E. coli rather than true UTI; however, will finish treating-d /c Bactrim-st art macrobid 100 mg po bid x 5 days for simple UTI-benefi ts of abx outweigh risks of non-treatm ent in this patient-no need to extend probiotic since low-risk c-diff with nitrofuran toinMonito r and f/u prn Uncontroll ed type 2 diabetes mellitus [id number] E11.65 Lantus increased yesterdayM onitor sugars and adjust meds prnOn EMILIE-I for renal protection [id number] Verenice Cid [facility] on [address] [place] [address] [phone] 3 05/05/2021 12:24:28 05/14/2021 09:59:59 Anxiety 93659373 F41.9 pt reporting anxiety and states she has order for prn seroquel at home; found in home medsholdin g off on seroquel now as she had frequent falls at homeadding hydroxyzin e 25mg po bid prnmonitor for effectmoni tor mood and behaviorps [facility] [id number] SHAISTA LUJAN PA-C [facility] on [address] [place] [address] [phone] 3 05/12/2021 16:16:13 05/14/2021 11:26:53 Uncontrolled type 2 diabetes mellitus [id number] E11.65 Consider split-dose basal insulinMon itor sugars and adjust meds prnOn EMILIE-I for renal protection Recurrent falls 09631222 2 R29.6 PT/OT Chronic ob structive pulmonary disease 30617529 J44.9 continue inhalersf/ u prn Health Concerns Section Related Observation LastModified by Organization Detai ls LastModified Time None Recorded Concern Status LastModified by Organization Details LastModified Time None Recorded Advance Directives Directive Y: Payers Encounter Date Sequence Insurance Name Policy Number Policy Weston Covered Member ID Weston Member ID Guarantor Name 04/27/2021 1 [place] [facility] Elle Lopez [id number] Elle Lopez 04/28/2021 1 [place] [facility] Elle Lopez [id number] Elle Lopez 04/29/2021 1 [place] [facility] Elle Lopez [id number] Elle Lopez 05/05/2021 1 [place] [facility] Elle Lopez [id number] Elle Lopez 05/12/2021 1 [place] [facility] Elle Lopez [id number] Elle Lopez Notes Date Note Type Note [...] remdesivir and dexamethasone. She presented to the [facility] ED on 04/22 due to frequent falls. [...] knee pain, has had steroid injections through [facility] pain clinic. Most recently SI joint injection in 01/2021.Since here she has been participating with rehab, but is limited by pain and fatigue.Her PMH includes HTN, uncontrolled AODM (HxC6C04.6), CHF, s/p COVID 02/2020, asthma, bipolar disorder, schizoaffective disorder, anxiety, PTSD, unsteady gait, migraines, ADHD, morbid obesity, MORGAN on CPAP, hypothyroidism, DM, hypertension, chronic back pain-s/p SI joint injections, with cholelithiasis-not surgical candidate per surgeon-being txed with tramadol, and frequent falls. Becka Zafar MD [address] [place] [address], [address], [place], [address], [employer] 05/05/2021 21:44:55 04/28/2021 text/html Pt seen for [...] pain. No f/c/s. SHAISTA LUJAN PA-C [address], [address], [place], [address], [employer] 04/28/2021 14:37:05 04/29/2021 text/html Pt seen for acut e rounding visit today for UTI. Pt with dysuria earlier this week at which time she was commenced on Bactrim by . Diabetes meds adjusted yesterday (see note for details.) Pt denies dysuria, hematuria, back/abd/flank pain, f/c/s. SHAISTA LUJAN PA-C [address], [address], [place], [address], [employer] 04/29/2021 13:36:17 05/05/2021 text/html Elle is juan luisin linden seen for an acute rounding visit today. Elle is stating that she is experiencing anxiety. She reports having seroquel prn at home but not here. Will trial hydroyzine 25mg bid prn and monitor for effect. Would hold off for now on adding prn seroquel as she was with frequent falls at home. Verenice santiago [employer] 05/05/2021 12:35:21 05/12/2021 text/html Pt seen today [...] PTSD; Umbilical hernia; Hx patella fx; Hx MN; Hx tubal ligation; Hx knee surgery; Hx [...] edema; Hx UTI Hospital Patient Received From: [facility] ED Attending MD: Dr. Cooper Goodson/Shaista Lujan PA-C Medications Started at [facility]: Nystatin powder; Bactrim; Imodium; Diflucan; Probiotic; Macrobid; Hydroxyzine Medications Discontinued at [facility] & Why: Imodium (non-use); Bactrim (Ucx resistant); [...] am by [facility]-registered Shaista Lujan PA-C NPI# [id number]; Last MD visit 04/27/21; [facility] for medication management and reconciliation and teaching; [...] liquids Activity: wheelchair SHAISTA LUJAN PA-C [address], [address], [place], [address], [facility] [employer] 05/12/2021 16:58:12 OBGyn Episode No OBEpisode recorded.
--- OUTSIDE RECORDS SUMMARY | 2024-07-03 18:01 | XMS_ITS | Encounter Summary ---
Author Organization [employer] Address [address] [place] [address] Care Team Providers Care Culinary Intern Name Role Phone Toyin Pollard Primary Care Provider [phone] Satish Brennan MD Unavailable [phone] Jacob Morrow Unavailable [phone] Nicolasa Escobar MD Unavailable Shen Daivs MD Unavailable [phone] Reason for Visit * Reason Onset Date Comments ER Follow-up 06/06/2023 Encounter Details Date Type Department Care Team (Late st Contact Info) Description 06/06/2023 Telephone [facility] [address] [place] [address] Toyin Pollard FNP [address] [place], [place] [phone] ER Follow-up Social History Tobacco Use Types [...] provided by ED. Pt requested appt at [facility] and scheduled pt with Dr. Franko Monet for 06/11 at 3:45 pm. Pt verbalized understanding and agreement with plan. * Telephone Encounter - Joseph Lopez - 06/06/2023 3:51 PM EDT Patient calling to report ED visit on : Date: 06/04 Hospital: [facility] Seen for: COPD and bronchitis Patient advised will forward to team nurse for follow up documented in this encounter Plan of Treatment Upcoming Encounters Date Type Department Care Team ([facility] st Contact Info) Description 08/05/2024 10:30 AM EDT Office Visit [facility] [address] [place], [place] [phone] Toyin Pollard FNP [address] [place] [address] 09/23/2024 11:00 AM EDT Telemedicine [facility] [address] [place], [place] [phone] Margret Hector, RN [address] [place], [place] documented as of this encounter [...] documented as of this encounter Care Teams Culinary Intern Relationship Specialty Start Date End Date Toyin Pollard FNP [address] [place] [address] PCP - General Family Medicine 01/11/21 Satish Brennan MD [address] [place] [address] Endocrinology 02/22/24 Jacob Morrow [address] [place] [address] Pulmonary Disease 02/22/24 Nicolasa Escobar MD [address] [place] [address] [place] [address] Neurology 02/22/24 Shen Davis MD [address] [place] [address] Nephrology 02/22/24 Ellyn Connolly [employer] 08/17/23 [facility] 10/24/24 11/3/24 [facility] 01/11/24 documented as of this encounter
--- OUTSIDE RECORDS SUMMARY | 2024-07-03 18:01 | XMS_ITS | Clinical Summary ---
Author Organization [employer] Address [address] [facility] [address] [place] [address] Care Team Providers Care Product Info Specialist Name Role Phone JuddToyin barry LOUIE Primary Care Provider [phone] Satish Brennan MD Unavailable [phone] Jacob Morrow Unavailable [phone] Nicolasa Escobar MD Unavailable Shen Davis MD Unavailable [phone] Allergies Active Allergy Reactions Criticality Noted Date Comments Haloperidol Unknown High 03/22/2022 Other reaction(s): Irritable Latex Rash Low 01/14/2021 Metformin Diarrhea,Hives High 01/14/2021 Morphine Itching,Rash Low 02/07/2019 Tetracycline Hives High 03/22/2022 Medications TRUEplus Lancets 33G miscIndications: Type 2 diabetes mellitus with complication ([facility]) 1 Lancet in the morning, at [...] Continuous Glucose Sensor (FreeStyle Todd 2 Sensor) [facility] [place]ED CHANGE EVERY 14 DAYS [...] BEDTIME 90 tablet 025 Active nystatin (Nyamyc) 091775 UNIT/GM powderIndication s:Tinea APPLY TOPICALLY TO AFFECTED [...] tablet 3 024 2024 Discontinued nystatin (Nyamyc) 157549 UNIT/GM powderIndication s:Tinea APPLY TOPICALLY TO AFFECTED [...] hypothyroidism 11/15/2022 Overview (11/15/2022): ?? Followed by [facility] Endo Lab Results Component [...] maintenance 11/10/2022 Overview (08/05/2023): Optometry: followed by [facility], last appt Feb 2021 Mammogram: BIRADS 2 02/21/2019, due. Ordered 11/15/22 Colonoscopy: followed by GI, referral for screening colonoscopy placed 11/15/22. Cologuard negative 03/08/23 Pap: overdue, pt does not recall last pap. Will schedule with [facility] CNM in handicap accessible room Last PE: 07/17/23 Assessment & Plan (07/19/2023 10:15 AM EDT): Labs ordered today, showed hyperkalemia, but with hemolysis Will repeat at next appointment with PCP ADHD 09/28/2022 History of posttraumatic stress disorder (PTSD) 09/28/2022 Migraine 09/28/2022 Assessment & Plan (02/25/2024 6:26 PM EST): - History of migraines, previously using sumatripan. Discontinued with history of OH - Referral to Neuro for further eval and tx 11/15/22 -Nurtec 75mg tablet approval - PA # [id number], exp 02/12/25 - pt reports med effective. Denies med SE Assessment & Plan (08/05/2023 5:08 PM EDT): - History of migraines, previously using sumatripan. Discontinued with history of OH - Referral to Neuro for further eval and tx 11/15/22 -Nurtec 75mg tablet approved May 2023. #[id number] will on 12/17/23 - pt reports med effective. Denies med SE Assessment & Plan (11/15/2022 5:45 PM EDT): - History of migraines, previously using sumatripan. Discontinued with history of OH - PA for Nurtec denied through PCP [...] -Patient will follow outpt Vasc Surg at [facility] - Dr. Canales -Incidental [...] up and moving around. - Following with [facility] Pulmonology - Dr. Morrow - Marycarmen SOB. Denies any fevers, chills, difficulty breathing, cough, or mucous production. Reports that she has enough supplemental O2 at home -Continue with Breztri (axnksopcez-mzzntdjk-bdxnboahzl) BID -Albuterol PRN -DME request for neb machine placed 11/15/22 Assessment & Plan (11/15/2022 5:33 PM EDT): - Patient continues on supplemental oxygen: 6L/min @ rest or when sitting, and 8L/min when up and moving around. - Following with [facility] Pulmonology - Dr. Morrow - Marycarmen SOB. Denies any fevers, chills, difficulty breathing, cough, or mucous production. Reports that she has enough supplemental O2 at home -Continue with Breztri (ietuskyhsk-jofjeqri-bxrxuwdflj) BID -Albuterol PRN -DME request for neb [...] Plan (02/25/2024 6:25 PM EST): Following with [facility] Endo Continue Mounmatthewro & Jonatan, with goal of weight loss leading to bariatric surgery Lab Results Component Value Date HGBA1C 6.4 (A) 08/02/2023 HGBA1C 6.7 (A) 07/17/2023 HGBA1C 10.4 (A) 03/01/2023 HGBA1C TNP 07/20/2022 HGBA1C 7.8 (H) 01/11/2021 HGBA1C 11.9 (H) 11/11/2019 HGBA1C 11.9 (H) 11/11/2019 A1c: congratulated in improvement with A1c levels Eye exam: due, schedule with [facility] Eye [facility] Foot exam: referral to podiatry 11/15/22 Dental: encouraged PNA: UTD ACEi/ARB: yes Statin: yes ASA: yes Lifestyle: Encouraged regular movement as able and aerobic exercise for improved glycemic control Encouraged daily foot checks Encouraged lean protein snacks and to avoid foods high in sugar and simple carbohydrates Medications: Per [facility] Endo Toujeo insulin: 64 units at bedtime Humalog 14 units TID AC Mounjaro 7.5mg subcutaneous weekly Treatment Goals: A1c goal: <7% FBG goal: <130 2 hour post prandial goal: <180 Assessment & Plan (08/05/2023 5:09 PM EDT): Following with [facility] Continue Mounjaro & Tochelseyo, with goal of weight loss leading to bariatric surgery Lab Results Component Value Date HGBA1C 6.4 (A) 08/02/2023 HGBA1C 6.7 (A) 07/17/2023 HGBA1C 10.4 (A) 03/01/2023 HGBA1C 7.8 (H) 01/11/2021 HGBA1C 11.9 (H) 11/11/2019 HGBA1C 11.9 (H) 11/11/2019 A1c: congratulated in improvement with A1c levels Eye exam: due, schedule with [facility] Foot exam: referral to podiatry 11/15/22 Dental: encouraged PNA: UTD ACEi/ARB: yes Statin: yes ASA: yes Lifestyle: Encouraged regular movement as able and aerobic exercise for improved glycemic control Encouraged daily foot checks Encouraged lean protein snacks and to avoid foods high in sugar and simple carbohydrates Medications: Per [facility] Treatment Goals: A1c goal: <7% FBG goal: <130 2 hour post prandial goal: <180 Assessment & Plan (07/19/2023 10:16 AM EDT): Following with [facility] Jigna Duranunrigo with goal of weight loss leading to bariatric surgery Lab Results Component Value Date HGBA1C 10.4 (A) 03/01/2023 A1c: above goal Eye exam: due, schedule with [facility] Eye [facility] Foot exam: referral to podiatry 11/15/22 Dental: encouraged PNA: UTD ACEi/ARB: yes Statin: yes ASA: yes Lifestyle: Encouraged regular movement as able and aerobic exercise for improved glycemic control Encouraged daily foot checks Encouraged lean protein snacks and to avoid foods high in sugar and simple carbohydrates Medications: Per [facility] Treatment Goals: A1c goal: <7% FBG goal: <130 2 hour post prandial goal: <180 Assessment & Plan (03/02/2023 4:56 PM EST): Following with [facility] Endo Lab Results Component Value Date HGBA1C 10.4 (A) 03/01/2023 A1c: above goal Eye exam: due, schedule with [facility] Eye [facility] Foot exam: referral to podiatry 11/15/22 Dental: encouraged PNA: UTD ACEi/ARB: yes Statin: yes ASA: yes Lifestyle: Encouraged regular movement as able and aerobic exercise for improved glycemic control Encouraged daily foot checks Encouraged lean protein snacks and to avoid foods high in sugar and simple carbohydrates Medications: ? ? Per [facility] Endo Treatment Goals: A1c goal: <7% FBG goal: <130 2 hour post prandial goal: <180 Assessment & Plan (11/15/2022 5:38 PM EDT): Following with [facility] Endo Lab Results Component Value Date HGBA1C 10.1 (A) 09/28/2022 A1c: above goal Eye exam: due, schedule with [facility] Foot exam: referral to podiatry 11/15/22 Dental: encouraged PNA: UTD ACEi/ARB: yes Statin: yes ASA: does not appear to be taking, although hx of OH. Will refer to [facility] for further eval. Lifestyle: Encouraged regular movement as able and aerobic exercise for improved glycemic control Encouraged daily foot checks Encouraged lean protein snacks and to avoid foods high in sugar and simple carbohydrates Medications: ? ? Per [facility] Endo Treatment Goals: A1c [...] Department Care Team Description 07/02/2024 Orders Only [facility] External Provider, [facility] 06/27/2024 10:30 AM EDT Clinical Support [facility] [address] [place] [address] Margret Hector RN Pain 06/27/2024 Refill [facility] [address] [place] [address] Margret Hector, MINA Pain; Calculus of gallbladder without cholecystitis without obstruction; Long-term current use of opiate analgesic; Dizziness, nonspecific 06/27/2024 Travel 06/26/2024 Telephone [facility] [address] [place] [address] Toyin Pollard FNP Ambulance transportation 06/18/2024 Refill [facility] [address] [place] [address] Toyin Pollard FNP Seasonal allergies 06/17/2024 Refill [facility] [address] [place] [address] Toyin Pollard FNP 06/06/2024 Refill [facility] [address] [place] [address] Toyin Pollard FNP Tinea 05/31/2024 Population Health Risk Score [facility] [address] [place] [address] [phone] Provider, Population Health Generic 05/29/2024 Refill [facility] [address] [place] [address] Toyin Pollard FNP Pain; Calculus of gallbladder without cholecystitis without obstruction; Long-term current use of opiate analgesic 05/27/2024 Refill [facility] [address] [place] [address] Toyin Pollard FNP 05/23/2024 Refill [facility] [address] [place] [address] Toyin Pollard FNP 05/22/2024 Telephone [facility] [address] [place] [address] Toyin Pollard FNP Appointment Confirmation 05/22/2024 Telephone [facility] [address] [place] [phone] Toyin Pollard FNP Durable Medical Equipment 05/22/2024 Refill [facility] [address] [place] [address] Toyin Pollard FNP 05/21/2024 Telephone [facility] [address] [place] [address] Margret Hector, RN 05/21/2024 Telephone [facility] [address] [place] [phone] Margret Hector, RN 05/20/2024 Telephone [facility] [address] [place] [address] Toyin Pollard FNP 05/16/[address] [address] Toyin Pollard FNP Durable Medical Equipment 05/15/2024 Patient Outreach [facility] [address] [place] [address] Toyin Pollard FNP Care Coordination (CHW outreach for SDOH PT-1 and food needs-referral completed /) 05/15/2024 Telephone [facility] [address] [place] [address] Toyin Pollard FNP transportation needed 05/15/2024 Telephone [facility] [address] [place] [address] Toyin Pollard FNP Nurse Triage 05/15/2024 Refill [facility] [address] [place] [address] Toyin Pollard, FIELD ASSOCIATE Dizziness, nonspecific 04/30/2024 Refill [facility] [address] [place] [address] Toyin Pollard, FIELD ASSOCIATE Smokes cigarettes 04/22/2024 Telephone [facility] [address] [place] [address] Toyin Pollard, FIELD ASSOCIATE 04/19/2024 Refill [facility] [address] [place] [address] Toyin Pollard, FIELD ASSOCIATE Dizziness, nonspecific 04/15/2024 Travel 04/15/2024 Telephone [facility] [address] [place] [address] Margret Hector, RN sql etl developer 04/15/2024 Telephone [facility] [address] [place] [address] Toyin Pollard, FIELD ASSOCIATE 04/14/2024 Refill [facility] [address] [place] [address] Toyin Pollard, FIELD ASSOCIATE 04/12/2024 Refill [facility] [address] [place] [address] Toyin Pollard, FIELD ASSOCIATE Long-term current use of opiate analgesic (Primary Dx); Pain; Calculus of gallbladder without cholecystitis without obstruction 04/04/2024 Orders Only [facility] External Provider, [facility] from Last 3 Months Immunizations Name Administration [...] [facility] [address] [place] [address] Toyin Pollard FIELD ASSOCIATE [address] [place] [address] 09/23/2024 11:00 AM EDT Telemedicine [facility] [address] [place] [address] Margret Hector, RN [address] [place], [place] [phone] Health Maintenance Due Date Last Done Comments [...] 6.4(08/02/2023 4:30 PM EDT) No Michelle Alegria, Jeo Procedures Procedure Name Priority Date/Time Associated Diagnosis Comments CULTURE, URINE, ROUTINE Routine 07/02/2024 5:05 PM EDT URINALYSIS, COMPLETE, WITH REFLEX TO CULTURE Routine [...] 4:10 PM EDT) Color Urine Dark Yellow [facility] Appearance Urine Cloudy [facility] PH 7.5 5.0 - 9.0 [facility] Glucose Urine UA Negative Negative mg/dL [facility] Urine Blood Trace(A) Negative [facility] Specific [place] - Urine 1.015 1.005 - 1.025 [facility] Urine Protein Trace Neg-Trace mg/dL [facility] Urine Ketones Negative Negative mg/dL [facility] Nitrite Urine Positive(A) Negative [facility] Leukocyte Esterase Urine Large (3+)(A) Negative [facility] RBC Urine 6-10(A) 0 - 2 /HPF [facility] Urine WBC >50(A) 0 - 5 /HPF [facility] Urine Squamous Epithelial Cell 0-2 0 - 2 /HPF [facility] Urine Bacteria 4+ None Seen [facility] Hyaline Casts, Urine 0-2 0 - 2 /LPF [facility] 07/02/2024 4:10 PM EDT 07/02/2024 4:19 PM EDT Narrative [facility] - 07/02/2024 4:59 PM EDT [id number], Clean Catch us Generic External Data Provider LAB URINE ORDERAB LES Final Result [facility] [address] [place] [address] [phone] * (ABNORMAL) Comprehensive Metabolic Panel (07/02/2024 3:33 PM EDT) Sodium 127(L) 135 - 145 mmol/L [facility] Potassium 4.9 3.3 - 5.1 mmol/L [facility] Chloride 82(L) 96 - 108 mmol/L [facility] Carbon Dioxide 35(H) 22 - 29 mmol/L [facility] Anion Gap 15 12 - 20 [facility] Urea Nitrogen (BUN) 9 9 - 16 mg/dL [facility] Creatinine, Serum 0.67 0.5 - 1.4 mg/dL [facility] Creatinine Clr Calc Pharmacy 182.1 [facility] Comment:Provided height and weight: 167.64 cm,208 kg.eGFR (calculated from the MDRD study equation) and eCrCl(calculated from the Cockcroft-Gault equation) are based ondifferent parameters and may not yield comparable results.If eCrCl result is absurd, please check patient'sheight/weight. Estimated Glomerular Filt Rate >60 [facility] Comment:Chronic Kidney Disea se: Estimated GFR < 60 mL/min/1.97v8Lefgvv Kidney Disease: Estimated GFR < 15 mL/min/1.73m2 Glucose 133(H) 60 - 115 mg/dL [facility] Calcium 9.7 8.4 - 10.2 mg/dL [facility] Bilirubin, Total 0.2 0.0 - 1.0 mg/dL [facility] Aspartate Amino Transferase 19 5 - 31 U/L [facility] Alanine Aminotransferase 10 0 - 31 U/L [facility] Total Protein 7.0 6.5 - 8.0 g/dL [facility] Albumin Level 4.0 3.5 - 5.0 g/dL [facility] Alkaline Phosphatase 54 39 - 117 U/L [facility] 07/02/2024 3:33 PM EDT 07/02/2024 3:36 PM EDT us Generic External Data Provider LAB BLOOD ORDERAB LES Final Result [facility] [address] [place] [address] [phone] * XR Foot 1-2 Views Right (07/02/2024 3:01 PM EDT) Anatomical Region Laterality Modality Lower Extremities, Foot Right Radiogra phic Imaging 07/02/2024 3:01 PM EDT Narrative 07/02/2024 3:56 PM EDT ? [facility] ?[address] ?[place] [address] ?XRay Report ? Signed ? Patient: John,Elle ?MR#: [id number] ?? 57 ? : 1970 ?Acct:[id number] ? Age/Sex: 54 / F ?ADM Date: 07/02/24 ? Loc: HO.ED ? Attending Dr: ? Ordering Physician: Silvia Jose ?? Date of Service: 07/02/24 ?? Procedure(s): XR foot RT 2V ?? Accession Number(s): [id number] ? cc: [facility]; Silvia Jose ? EXAMINATION: ?? XR [...] DD/ 1501 ? TD/TT: 07/02/24 1525 ? Grounds Maintenance Supervisor: ? Procedure Note Donotuseinterpreter, Image - 07/02/[address] [address] XRay Report Signed Patient: Elle LopezMR#: [id number] 57 : 1970Acct:[id number] Age/Sex: 54 / FADM Date: 07/02/24 Loc: HO.ED Attending Dr: Ordering Physician: Silvia Jose Date of Service: 07/02/24 Procedure(s): XR foot RT 2V Accession Number(s): [id number] cc: [facility]; Silvia Jose EXAMINATION: XR FOOT, RIGHT [...] 07/02/24 1553 DD/ 1501 TD/TT: 07/02/24 1525 Grounds Maintenance Supervisor: us [facility] External Provider IMG XR PROCEDURES Final Result * XR Ankle 2 Views Right (07/02/2024 3:01 PM EDT) Anatomical Region Laterality Modality Lower Extremities, Ankle Right Radiogr aphic Imaging 07/02/2024 3:01 PM EDT Narrative 07/02/2024 3:58 PM EDT ? [place] [facility] ?[address] ?[place] [address] ?XRay Report ? Signed ? Patient: John,Elle ?MR#: [id number] ?? 57 ? : 1970 ?Acct:[id number] ? Age/Sex: 54 / F ?ADM Date: 07/02/24 ? Loc: HO.ED ? Attending Dr: ? Ordering Physician: Silvia Jose ?? Date of Service: 07/02/24 ?? Procedure(s): XR ankle RT 2V ?? Accession Number(s): [id number] ? cc: [facility]; Silvia Jose ? EXAMINATION: ?? XR [...] Lopez MD ??07/02/2024 03:56 PM ?? EDT ? Dictated By: ?Jose Urias MD ? Signed By: ?<Electronically signed by Jose Dumont MD in OV> ? 07/02/24 1556 ? DD/ 1501 ? TD/TT: 07/02/24 1525 ? Grounds Maintenance Supervisor: ? Procedure Note Sadiq, Image - 07/02/[address] [address] XRay Report Signed Patient: Elle Lopez#: [id number] 57 : 1970Acct:[id number] Age/Sex: 54 / FADM Date: 07/02/24 Loc: HO.ED Attending Dr: Ordering Physician: Silvia Jose Date of Service: 07/02/24 Procedure(s): XR ankle RT 2V Accession Number(s): [id number] cc: [facility]; Silvia Jose EXAMINATION: XR ANKLE, RIGHT [...] 07/02/24 1556 DD/ 1501 TD/TT: 07/02/24 1525 Grounds Maintenance Supervisor: us [facility] External Provider IMG XR PROCEDURES Final Result * POCT BAKARI-14 Urine Drug Screen (06/27/2024 11:20 AM EDT) TCA, Urine Positive Urine Urine specimen obtained by clean catch procedure / Unknown 06/27/2024 11:20 AM EDT Narrative Margret Hector, MINA - 06/27/2024 11:20 AM EDT Lot# [id number] Exp: 11-06-25 Toyin Pollard FIELD ASSOCIATE POINT OF CARE TEST ENTER/EDIT ORDERABLES Final Result * XR Pelvis 1-2 Views (05/02/2024 12:07 AM EST) Anatomical Region Laterality Modality Body, Pelvis Radiographic Padmini ging 05/02/2024 12:0 7 AM EST Narrative 05/02/2024 12:10 AM EST ? [place] [facility] ?[address] ?[place] [address] ?XRay Report ? Signed ? Patient: John,Elle ?MR#: [id number] ?? 57 ? : 1970 ?Acct:[id number] ? Age/Sex: 54 / F ?ADM Date: 05/01/24 ? Loc: HO.ED ? Attending Dr: ? Ordering Physician: Layne Chambers ?? Date of Service: 05/01/24 ?? Procedure(s): XR pelvis 1-2V ?? Accession Number(s): [id number] ? cc: Layne Chambers; [facility] ? CLINICAL HISTORY: pain, fx? Pelvis, [...] 0008 ? DD/ ? TD/TT: 05/02/246 ? Grounds Maintenance Supervisor: ? Procedure Note Sadiq, Image - 05/02/2024 [place] [address] XRay Report Signed Patient: Alis Lopez#: [id number] 57 : 1970Acct:[id number] Age/Sex: 54 / FADM Date: 05/01/24 Loc: HO.ED Attending Dr: Ordering Physician: Layne Chambers Date of Service: 05/01/24 Procedure(s): XR pelvis 1-2V Accession Number(s): [id number] cc: Layne Chambers; [facility] CLINICAL HISTORY: pain, fx? Pelvis, 1 [...] MD in OV> 05/02/247 DD/ TD/TT: 05/02/246 Grounds Maintenance Supervisor: [facility] External Provider IMG XR PROCEDURES Final Result * XR Foot 3+ Views Right (04/04/2024 7:08 PM EST) Anatomical Region Laterality Modality Lower Extremities, Foot Right Radiogra phic Imaging 04/04/2024 7:08 PM EST Narrative 04/04/2024 7:10 PM EST ? [facility] ?[address] ?[place] [address] ?XRay Report ? Signed ? Patient: Elle Lopez ?MR#: [id number] ?? 57 ? : 1970 ?Acct:[id number] ? Age/Sex: 54 / F ?ADM Date: 04/04/24 ? Loc: HO.ED ? Attending Dr: ? Ordering Physician: Silvia Jose ?? Date of Service: 04/04/24 ?? Procedure(s): XR foot RT min 3V ?? Accession Number(s): [id number] ? cc: [facility]; Silvia Jose ? CLINICAL HISTORY: pain [...] radiopaque retained ?? foreign body in the kmnmv-zt-qhlj. ? IMPRESSION: ?? 1. Fragments about imaged [...] ? 04/04/241908 ? DD/ 07 ? TD/TT: 04/04/24 1908 ? Grounds Maintenance Supervisor: ? Procedure Note Donotnathalieinterpreter, Image - 04/04/[address] [address] XRay Report Signed Patient: Elle LopezMR#: [id number] 57 : 1970Acct:[id number] Age/Sex: 54 / FADM Date: 04/04/24 Loc: HO.ED Attending Dr: Ordering Physician: Silvia Jose Date of Service: 04/04/24 Procedure(s): XR foot RT min 3V Accession Number(s): [id number] cc: [facility]; Silvia Jose CLINICAL HISTORY: pain 3 [...] No radiopaque retained foreign body in the uvxsg-zw-wiyq. IMPRESSION: 1. Fragments about imaged ankle are [...] in OV> 04/04/241908 DD/ 07 TD/TT: 04/04/241907 Grounds Maintenance Supervisor: [facility] External Provider IMG XR PROCEDURES Final Result * XR Ankle 3+ Views Right (04/04/2024 7:05 PM EST) Anatomical Region Laterality Modality Lower Extremities, Ankle Right Radiogr aphic Imaging 04/04/2024 7:05 PM EST Narrative 04/04/2024 7:06 PM EST ? [facility] ?[address] ?[place], [place] [address] ?XRay Report ? Signed ? Patient: Elle Lopez ?MR#: [id number] ?? 57 ? : 1970 ?Acct:[id number] ? Age/Sex: 54 / F ?ADM Date: 04/04/24 ? Loc: HO.ED ? Attending Dr: ? Ordering Physician: Silvia Jose ?? Date of Service: 04/04/24 ?? Procedure(s): XR ankle RT min 3V ?? Accession Number(s): [id number] ? cc: [facility]; Silvia Jose ? CLINICAL HISTORY: pain [...] ? DD/ 04 ? TD/TT: 04/04/241904 ? Grounds Maintenance Supervisor: ? Procedure Note Donotuseinterpreter, Image - 04/04/[address] [address] XRay Report Signed Patient: Elle LopezMR#: [id number] 57 : 1970Acct:[id number] Age/Sex: 54 / FADM Date: 04/04/24 Loc: HO.ED Attending Dr: Ordering Physician: Silvia Jose Date of Service: 04/04/24 Procedure(s): XR ankle RT min 3V Accession Number(s): [id number] cc: [facility]; Silvia Jose CLINICAL HISTORY: pain 3 [...] in OV> 04/04/241905 DD/ 04 TD/TT: 04/04/241904 Grounds Maintenance Supervisor: us [facility] External Provider IMG XR PROCEDURES Final Result * (ABNORMAL) POCT HGB A1C (08/02/2023 4:30 PM EDT) Hemoglobin A1C 6.4(A) 4.0 - 6.0 % QC Media Lot # [id number] Lot# Expiration Date Blood 08/02/2023 4:30 PM EDT Toyin Pollard FIELD ASSOCIATE POINT OF CARE TEST ENTER/EDIT ORDERABLES Final Result * Hepatitis C Antibody with Reflex to HCV, RNA, Quantitative, Real-Time PCR (07/19/2023 12:30 PM EDT) Hepatitis C Antibody Nonreactive Nonreactive [facility] Comment:Antibodies to HCV no t detected; does not exclude early acuteHCV infection. Blood Venous blood specimen / Unknown 07/19/2023 12:30 PM EDT 07/19/2023 1:00 PM EDT Agustina Toribio MD LAB BLOOD ORDERABLES Final Res ult [facility] [address] [place] [phone] * HIV-1/2 Antigen and Antibodies, Fourth Generation, with Reflexes (07/19/2023 12:30 PM EDT) HIV AB/AG Nonreactive Nonreactive [facility] Comment:HIV-1 p24 Ag and/or HIV-1/HIV-2 Ab not detected.A test result that is nonreactive does not exclude thepossibility of exposure to or infection with HIV-1 and/orHIV-2. Nonreactive results in this assay for individualswith prior exposure to HIV-1 and/or HIV-2 may be due toantigen and antibody levels that are below the limit ofdetection of this assay.The RadPadniAugure HIV Ag/Ab Combo assay result andsupplemental assay results should be interpreted inconjunction with the patient's clinical presentation,history and other laboratory results. If the results areinconsistent with clinical evidence, additional testing issuggested to confirm the result. Blood Venous blood specimen / Unknown 07/19/2023 12:30 PM EDT 07/19/2023 1:00 PM EDT Agustina Toribio MD LAB BLOOD ORDERABLES Final Res ult Performing Organization Address [facility] [[email or web address]] de Phone Number [facility] [address] [place] [address] [phone] * (ABNORMAL) Lipid Panel, Standard (07/17/2023 4:09 PM EDT) Triglycerides 171(H) <150 mg/dL [facility] Comment:Desirable Triglyceri de: less than 150 mg/dLBorderline High Triglyceride 150-199 mg/dLHigh Triglyceride: 200-499 mg/dLVery High Triglyceride: greater than or equal to 5OO mg/dL Cholesterol 176 <200 mg/dL [facility] Comment:Desirable Cholestero l: less than 200 mg/dLBorderline High Cholesterol: 200-239 mg/dLHigh Cholesterol: greater than 239 mg/dL LDL Cholesterol Calculated 77 <100 mg/dL [facility] Comment:Desirable LDL: less than 100 mg/dLNear Optimal/Above Optimal LDL: 110- 129 mg/dLBorderline High LDL: 130-159 mg/dLHigh LDL: 160-189 mg/dLVery High LDL: greater than or equal to 190 mg/dL HDL Cholesterol 65 >40 mg/dL [facility] Comment:Desirable HDL: great er than 40 mg/dL Note: This HDL assay may give artificially low results in patients with liver disease. Blood Venous blood specimen / Unknown 07/17/2023 4:09 PM EDT 07/17/2023 5:46 PM EDT Agustina Toribio MD LAB BLOOD ORDERABLES Final Res ult Performing Organization Address [facility] Co de Phone Number [facility] [address] [place] [address] [phone] * Cologuard?? colon cancer screening (03/08/2023 3:30 PM EST) Cologuard Result Negative Negative 03/16/20 9:24 AM EST [facility] (CLIA #:[id number]) Comment: NEGATIVE TEST RESULT. A negative Cologuard [...] cancer. ??Following a negative Cologuard result, the [place] Cancer Society and U.S. Multi-Society Task Force screening guidelines recommend a Cologuard re-screening interval of 3 years. References: [place] [employer] Guideline for Colorectal Cancer Screening: https://www.cancer.org/cancer/aadvs-qrktoa-rtoedl/clxukkrey-xbtcowpwk-fndkmrk/ac s-rec ommendations.html.; Miguel DK, Maria Elena CR, Lester MaherK, Colorectal Cancer Screening: Recommendations for Physicians and Patients from the U.S. Multi-Society Task Force on Colorectal Cancer Screening , Am J Gastroenterology 2017; 112:0117-1022. TEST DESCRIPTION: Composite algorithmic analysis of stool [...] (Kevin Davis al, N Engl J Med 2014;370(14):1000-8719.) Cologuard may produce a false negative or false positive result (no colorectal cancer or precancerous polyp present at colonoscopy follow up). A negative Cologuard test result does not guarantee the absence of CRC or advanced adenoma (pre-cancer). The current Cologuard screening interval is every 3 years. ([place] Cancer Society and U.S. Multi-Society Task Force). Cologuard performance data in a 10,000 patient pivotal study using colonoscopy as the reference method can be accessed at the following location: www.Medicina/results. Additional description of the Cologuard test process, warnings and precautions can be found at www.cologuard.com. Stool specimen (specimen) 03/08/2023 3:30 PM EST 03/09/2023 7:12 PM EST Toyin Pollard [facility] DI[facility]ST[facility] DRE FRY Final Result [facility] (CLIA #:[id number]) [place] [address], * Mammography Report 1 (05/27/2020 2:30 PM EST) Anatomical Region Laterality Modality Breast Bilateral Mammography 05/27/2020 2:30 PM EST Narrative 05/27/2020 5:07 PM EST Refer to the Notes tab for result details Legacy Procedure: Mammography Report 1 Procedure Note Provider, MD Tianna - 06/11/2022 Refer to the Notes tab [...] MD LAB URINE ORDERABLES Final Resul t [facility] [address] * HPV mRNA E6/E7 (02/20/2019 8:58 AM EST) Pathologist [facility] HPV mRNA E6/E7 Not Detected NOT DETECTED [facility] Comment: This test was performed using the APTIMA(R) HPV Assay ([employer] This assay detects E6/E7 viral messenger RNA (mRNA) from 14 high-risk HPV types (16,18,31,33,35,39,45,51, 52,56,58,59,66,68). For additional information please refer to: http://education.Vouch/faq/CWZ350d8 (This link is being provided for informational/ educational purposes only.) The analytical performance characteristics of this assay have been determined by [facility] [place], [place]. The modifications have not been cleared or approved by the FDA. This assay has been validated pursuant to the CLIA regulations and is used for clinical purposes. Test Performed by [facility], [facility], [address] [place] [id number] Randy Willson M.D., Ph.D., Director of Laboratories , CLIA [id number] Please note: ??Effective 11/30/2015, HPV testing will be performed using [employer]'s APTIMA test which targets mRNA. Detecting mRNA instead of DNA, as in older methods, offers significant improvements in specificity. 02/20/2019 8:58 AM EST Carina Fontaine CNM HISTORICAL/NON ORDERABLE LABS Final Result [facility] [address] from Last 3 Months or Most Recently Relevant to Health Maintenance Insurance [facility] C[facility] MED[facility] STAND ADULT Care Teams Product Info Specialist Relationship Specialty Start Date End Date Toyin Pollard FNP [address] [place] [address] PCP - General Family Medicine 01/11/21 Satish Brennan MD [address] [place] [address] Endocrinology 02/22/24 Jacob Morrow [address] [place] [address] Pulmonary Disease 02/22/24 Nicolasa Escobar MD [address] [place] [address] Dr [address] [place] [address] Neurology 02/22/24 Shen Davis MD [address] [place] [address] Nephrology 02/22/24 Ellyn Connolly Oleomargarine MakerSales Marketing 08/17/23 [facility] 01/11/24
--- OUTSIDE RECORDS SUMMARY | 2024-07-03 18:01 | XMS_ITS | Encounter Summary ---
Author Organization [employer] Address [address] [place] [address] 7t [place] [address] Care Team Providers Care Tree Killer Name Role Phone Toyin Pollard Primary Care Provider Satish Brennan MD Unavailable Jacob Morrow Unavailable [phone] Nicolasa Escobar MD Unavailable Shen Davis MD Unavailable [phone] Encounter Details Date Type Department Care Team (Late st Contact Info) Description 06/15/2022 Orders Only [facility] [address] [place] [address] Ellyn Chery LPN Social History Tobacco Use [...] [facility] [address] [place] [address] Toyin Pollard FNP [address] [place] [address] 09/23/2024 11:00 AM EDT Telemedicine [facility] [address] [place] [address] Margret Hector, RN [address] [place] [address] documented as of this encounter Visit Diagnoses Not on filedocumented in this encounter Care Teams Tree Killer Relationship Specialty Start Date End Date Toyin Pollard FNP [address] [place] [address] PCP - General Family Medicine 01/11/21 Satish Brennan MD [address] [place] [address] Endocrinology 02/22/24 Jacob Morrow [address] [place] [address] Pulmonary Disease 02/22/24 Nicolasa Escobar MD [address] [place] [address] [facility] [address] [place] [address] Neurology 02/22/24 Shen Davis MD [address] [place] [address] Nephrology 02/22/24 Ellyn Connolly News Video EditorUx Interaction Designer 08/17/23 [facility] 01/11/24 01/21/24 [facility] 01/11/24 documented as of this encounter
--- OUTSIDE RECORDS SUMMARY | 2024-07-03 18:01 | XMS_ITS | Encounter Summary ---
Author Organization [employer] Address [address] [facility] 7t [place] [address] Care Team Providers Care Heat Treating Bluer Name Role Phone Toyin Pollard LOUIE Primary Care Provider [phone] Satish Brennan MD Unavailable [phone] Jacob Morrow Unavailable [phone] Nicolasa Escobar MD Unavailable Shen Davis MD Unavailable [phone] Encounter Details Date Type Department Care Team ([facility] Contact Info) Description 05/23/2022 Orders Only [facility] P[facility] [address] [place] [address] Ellyn Chery LPN Social History Tobacco Use [...] Upcoming Encounters Date Type Department Care Team ([facility] Contact Info) Description 08/05/2024 10:30 AM EDT Office Visit [facility] [address] [place] [address] Toyin Pollard FNP [address] [place] [address] 09/23/2024 11:00 AM EDT Telemedicine [facility] [address] [place] [address] Margret Hector, RN [address] [place] [address] documented as of this encounter Visit Diagnoses Not on filedocumented in this encounter Care Teams Heat Treating Bluer Relationship Specialty Start Date End Date Toyin Pollard FNP [address] [place] [address] PCP - General Family Medicine 01/11/21 Satish Brennan MD [address] [facility] [address] [place] [address] Endocrinology 02/22/24 Jacob Morrow 5 [place] [address] Pulmonary Disease 02/22/24 Nicolasa Escobar MD [address] [place] [address] Neurology 02/22/24 Shen Davis MD [address] [facility] [address] [place] [address] Nephrology 02/22/24 Ellyn Connolly Supervisor DockTool Grinder Operator External 08/17/23 [facility] 01/11/24 01/21/24 [facility] 01/11/24 documented as of this encounter
--- OUTSIDE RECORDS SUMMARY | 2024-07-03 18:01 | XMS_ITS | Encounter Summary ---
Author Organization [employer] Address [address] [facility] 7t [place] [address] Care Team Providers Care Cardiothoracic Anesthesia Technician Name Role Phone Toyin Pollard Primary Care Provider Satish Brennan MD Unavailable Jacob Morrow Unavailable [phone] Nicolasa Escobar MD Unavailable [phone] Shen Davis MD Unavailable [phone] Reason for Visit * Reason Onset Date Comments FYI 01/25/2024 Encounter Details Date Type Department Care Team (Late st Contact Info) Description 01/25/2024 Telephone [facility] [address] [place], [place] [phone] Toyin Pollard FNP [address] [place], [place] [phone] FYI Social History Tobacco Use Types Packs/Day [...] - 01/25/2024 1:45 PM EST TC from [facility] with [facility] wanted to report pt Discharged from [facility] on 01/22/24 . Had a Cast on right ankle and was removed due to numbness. Pt now has a boot on . documented in this encounter Plan of Treatment Upcoming Encounters Date Type Department Care Team (Late st Contact Info) Description 08/05/2024 10:30 AM EDT Office Visit [facility] [address] [place] [address] Toyin Pollard FNP [address] [place] [address] 09/23/2024 11:00 AM EDT Telemedicine [facility] [address] [place] [address] Margret Hector RN [address] [place] [address] documented as of this encounter Goals Goal [...] documented as of this encounter Care Teams Cardiothoracic Anesthesia Technician Relationship Specialty Start Date End Date Toyin Pollard FNP [address] [place] [address] PCP - General Family Medicine 01/11/21 Satish Brennan MD [address] [place] [address] Endocrinology 02/22/24 Jacob Morrow 5 [place] [address] Pulmonary Disease 02/22/24 Nicolasa Escobar MD [address] [place] [address] Dr [address] [place] [address] Neurology 02/22/24 Shen Davis MD [address] [place] [address] Nephrology 02/22/24 Ellyn Connolly Buckle SorterNegative Cutter 08/17/23 [facility] 01/11/24 documented as of this encounter
--- OUTSIDE RECORDS SUMMARY | 2024-07-03 18:01 | XMS_ITS | Encounter Summary ---
Author Organization [employer] Address [address] [facility] 7t [place] [address] Care Team Providers Care Digital Data Analyst Name Role Phone Toyin Pollard Primary Care Provider [phone] Satish Brennan MD Unavailable [phone] Jacob Morrow Unavailable [phone] Nicolasa Escobar MD Unavailable [phone] Shen Davis MD Unavailable [phone] Reason for Visit * Reason Comments Med Refill Encounter Details Date Type Department Care Team (Late st Contact Info) Description 04/12/2024 Refill [facility] [address] [place] [address] Toyin Pollard FNP [address] [place], [place] [phone] Long-term current use of opiate analgesic (Primary [...] 04/12/2024 5:16 PM EST Please schedule for PLANT MAINTENANCE MECHANIC, thanks! documented in this encounter Plan of Treatment Upcoming Encounters Date Type Department Care Team (Late st Contact Info) Description 08/05/2024 10:30 AM EDT Office Visit [facility] [address] [place] [address] Toyin Pollard FNP [address] [place] [address] 09/23/2024 11:00 AM EDT Telemedicine [facility] [address] [place] [address] Margret Hector RN [address] [place] [address] documented as of this encounter Goals Goal [...] documented as of this encounter Care Teams Digital Data Analyst Relationship Specialty Start Date End Date Toyin Pollard FNP [address] [place] [address] PCP - General Family Medicine 01/11/21 Satish Brennan MD 10 [facility] 104 [place] [address] Endocrinology 02/22/24 Jacob Morrow 5 [place] [address] Pulmonary Disease 02/22/24 Nicolasa Escobar MD [address] [place] [address] Dr [facility] 140 [place] [address] Neurology 02/22/24 Shen Davis MD 10 [facility] [address] [place] [address] Nephrology 02/22/24 Ellyn Connolly Double Bottom DriverMulti Punch Operator 08/17/23 [facility] 01/11/24 documented as of this encounter
--- OUTSIDE RECORDS SUMMARY | 2024-07-03 18:01 | XMS_ITS | Encounter Summary ---
Author Organization [employer] Address 75 [facility] 7t [place] [address] Care Team Providers Care Vice President Of Brand Management Name Role Phone Toyin Pollard Primary Care Provider Satish Brennan MD Unavailable [phone] Jacob Morrow Unavailable [phone] Nicolasa Escobar MD Unavailable Shen Davis MD Unavailable [phone] Reason for Visit * Reason Onset Date Comments PT1 08/19/2022 Encounter Details Date Type Department Care Team (Late st Contact Info) Description 08/19/2022 Telephone [facility] [address] [place] [address] Toyin Pollard FNP [address] [place], [place] [phone] PT1 Social History Tobacco Use Types Packs/Day [...] has correct home address but transportation doesn't. Playground Aide is resubmitting PT1. PT1 Date: Time: address:[address] [facility] specialty:PCP # visits: gas meter installer helper: yes Wheelchair: yes PT1 Date: Time: address: [address] [facility] specialty: Biomedical Engineering Professor # visits: gas meter installer helper:yes Wheelchair:yes PT1 Date: Time: address: [address] [facility] specialty: Carpenter Helper Hardwood Flooring/ Diabetes # visits: gas meter installer helper:yes Wheelchair:yes PT1 Date: Time: address:[address] [facility] specialty: Speech and hearing # visits: gas meter installer helper:yes Wheelchair:yes documented in this encounter Plan of Treatment Upcoming Encounters Date Type Department Care Team (Late st Contact Info) Description 08/05/2024 10:30 AM EDT Office Visit [facility] MED [facility] PEDS [address] [place] [address] Toyin Pollard FNP [address] [place] [address] 09/23/2024 11:00 AM EDT Telemedicine [facility] [address] [place] [address] Margret Hector, RN [address] [place] [address] documented as of this encounter Visit Diagnoses Not on filedocumented in this encounter Care Teams Vice President Of Brand Management Relationship Specialty Start Date End Date Toyin Pollard FNP [address] [place] [address] PCP - General Family Medicine 01/11/21 Satish Brennan MD [address] [address] Endocrinology 02/22/24 Jacob Morrow [facility] [place] [address] Pulmonary Disease 02/22/24 Nicolasa Escobar MD [address] [place] [address] [address] Neurology 02/22/24 Shen Davis MD [address] [facility] [address] [place] [address] Nephrology 02/22/24 Ellyn Connolly Underground Utility LocatorRefrigerating Machine Operator 08/17/23 [facility] 01/11/24 01/21/24 [facility] 01/11/24 documented as of this encounter
--- OUTSIDE RECORDS SUMMARY | 2024-07-03 18:01 | XMS_ITS | Encounter Summary ---
Author Organization [employer] Address [address] [facility] 7t [place] [address] Care Team Providers Care Job Checker Name Role Phone Toyin Pollard Primary Care Provider [phone] Satish Brennan MD Unavailable [phone] Jacob Morrow Unavailable [phone] Nicolasa Escobar MD Unavailable Shen Davis MD Unavailable [phone] Reason for Visit * Reason Onset Date Comments Hospital Follow-up 09/19/2022 Encounter Details Date Type Department Care Team (Late st Contact Info) Description 09/19/2022 Telephone [facility] [address] [place] [address] Toyin Pollard FNP [address] [place], [place] [phone] Hospital Follow-up Social History Tobacco Use Types [...] a HDF appt. Pt was admitted at [facility] on 09/08/22 and discharged on 09/16/22. Pt was diagnosed with pneumonia. Please contact dionisio at [phone] documented in this encounter Plan of Treatment Upcoming Encounters Date Type Department Care Team (Late st Contact Info) Description 08/05/2024 10:30 AM EDT Office Visit [facility] MED & PEDS 505 [place] [address] Toyin Pollard FNP [address] [place] [address] 09/23/2024 11:00 AM EDT Telemedicine [facility] MED & PEDS [address] [place] [address] Margret Hector RN 505 [place], [place] [phone] documented as of this encounter Visit Diagnoses Not on filedocumented in this encounter Care Teams Job Checker Relationship Specialty Start Date End Date Toyin Pollard FNP [address] [place] [address] PCP - General Family Medicine 01/11/21 Satish Brennan MD [address] [facility] [address] [place] [address] Endocrinology 02/22/24 Jacob Morrow 5 [place] [address] Pulmonary Disease 02/22/24 Nicolasa Escobar MD [address] [place] [address] [place] [address] Neurology 02/22/24 Shen Davis MD [address] [place] [address] Nephrology 02/22/24 Ellyn Connolly Pattern FitterCleaner Carpet And Upholstery 08/17/23 [facility] 01/11/24 01/21/24 [facility] 01/11/24 documented as of this encounter
--- OUTSIDE RECORDS SUMMARY | 2024-07-03 18:02 | XMS_ITS | Encounter Summary ---
Author Organization [employer] Address [address] [facility] 7t [place] [address] Care Team Providers Care Client Strategist Name Role Phone JuddToyin barry LOUIE Primary Care Provider Staish Brennan MD Unavailable [phone] Jacob Morrow Unavailable [phone] Nicolasa Escobar MD Unavailable Shen Davis MD Unavailable [phone] Encounter Details Date Type Department Care Team (Late st Contact Info) Description 07/02/2024 Orders Only [facility] External Provider, [facility] Social History Tobacco Use Types Packs/Day [...] [facility] [address] [place] [address] Toyin Pollard FNP [address] [place] [address] 09/23/2024 11:00 AM EDT Telemedicine [facility] [address] [place] [address] Margret Hector, RN [address] [place] [address] Pending Results Name Type Priority Associated Diagnoses Date /Time Culture, Urine, Routine Microbiology Routine 07/02/2024 5:05 PM EDT documented as of this encounter Goals Goal [...] 4:10 PM EDT) Color Urine Dark Yellow [facility] Appearance Urine Cloudy [facility] PH 7.5 5.0 - 9.0 [facility] Glucose Urine UA Negative Negative mg/dL [facility] Urine Blood Trace(A) Negative [facility] Specific [place] - Urine 1.015 1.005 - 1.025 [facility] Urine Protein Trace Neg-Trace mg/dL [facility] Urine Ketones Negative Negative mg/dL [facility] Nitrite Urine Positive(A) Negative [facility] Leukocyte Esterase Urine Large (3+)(A) Negative [facility] RBC Urine 6-10(A) 0 - 2 /HPF [facility] Urine WBC >50(A) 0 - 5 /HPF [facility] Urine Squamous Epithelial Cell 0-2 0 - 2 /HPF [facility] Urine Bacteria 4+ None Seen [facility] Hyaline Casts, Urine 0-2 0 - 2 /LPF [facility] 07/02/2024 4:10 PM EDT 07/02/2024 4:19 PM EDT Narrative [facility] - 07/02/2024 4:59 PM EDT [id number], Clean Catch us Generic External Data Provider LAB URINE ORDERAB LES Final Result [facility] [address] [place] [address] [phone] * (ABNORMAL) Comprehensive Metabolic Panel (07/02/2024 3:33 PM EDT) Sodium 127(L) 135 - 145 mmol/L [facility] Potassium 4.9 3.3 - 5.1 mmol/L [facility] Chloride 82(L) 96 - 108 mmol/L [facility] Carbon Dioxide 35(H) 22 - 29 mmol/L [facility] Anion Gap 15 12 - 20 [facility] Urea Nitrogen (BUN) 9 9 - 16 mg/dL [facility] Creatinine, Serum 0.67 0.5 - 1.4 mg/dL [facility] Creatinine Clr Calc Pharmacy 182.1 [facility] Comment:Provided height and weight: 167.64 cm,208 kg.eGFR (calculated from the MDRD study equation) and eCrCl(calculated from the Cockcroft-Gault equation) are based ondifferent parameters and may not yield comparable results.If eCrCl result is absurd, please check patient'sheight/weight. Estimated Glomerular Filt Rate >60 [facility] Comment:Chronic Kidney Disea se: Estimated GFR < 60 mL/min/1.04f1Sidpnp Kidney Disease: Estimated GFR < 15 mL/min/1.73m2 Glucose 133(H) 60 - 115 mg/dL [facility] Calcium 9.7 8.4 - 10.2 mg/dL [facility] Bilirubin, Total 0.2 0.0 - 1.0 mg/dL [facility] Aspartate Amino Transferase 19 5 - 31 U/L [facility] Alanine Aminotransferase 10 0 - 31 U/L [facility] Total Protein 7.0 6.5 - 8.0 g/dL [facility] Albumin Level 4.0 3.5 - 5.0 g/dL [facility] Alkaline Phosphatase 54 39 - 117 U/L [facility] 07/02/2024 3:33 PM EDT 07/02/2024 3:36 PM EDT us Generic External Data Provider LAB BLOOD ORDERAB LES Final Result [facility] [address] [place] [address] [phone] * XR Ankle 2 Views Right (07/02/2024 3:01 PM EDT) Anatomical Region Laterality Modality Lower Extremities, Ankle Right Radiogr aphic Imaging 07/02/2024 3:01 PM EDT Narrative 07/02/2024 3:58 PM EDT ? [facility] ?[address] ?[place] [address] ?XRay Report ? Signed ? Patient: Elle Lopez ?MR#: [id number] ?? 57 ? : 1970 ?Acct:[id number] ? Age/Sex: 54 / F ?ADM Date: 07/02/24 ? Loc: HO.ED ? Attending Dr: ? Ordering Physician: Silvia Jose ?? Date of Service: 07/02/24 ?? Procedure(s): XR ankle RT 2V ?? Accession Number(s): [id number] ? cc: [facility]; Silvia Jose ? EXAMINATION: ?? XR [...] DD/ 1501 ? TD/TT: 07/02/24 1525 ? Dietary Internship: ? Procedure Note Donotuseinterpreter, Image - 07/02/[address] [address] XRay Report Signed Patient: Elle LopezMR#: [id number] 57 : 1970Acct:[id number] Age/Sex: 54 / FADM Date: 07/02/24 Loc: HO.ED Attending Dr: Ordering Physician: Silvia Jose Date of Service: 07/02/24 Procedure(s): XR ankle RT 2V Accession Number(s): [id number] cc: [facility]; Silvia Jose EXAMINATION: XR ANKLE, RIGHT [...] 07/02/24 1556 DD/ 1501 TD/TT: 07/02/24 1525 Dietary Internship: us [facility] External Provider IMG XR PROCEDURES Final Result * XR Foot 1-2 Views Right (07/02/2024 3:01 PM EDT) Anatomical Region Laterality Modality Lower Extremities, Foot Right Radiogra phic Imaging 07/02/2024 3:01 PM EDT Narrative 07/02/2024 3:56 PM EDT ? [facility] ?[address] ?[place] [address] ?XRay Report ? Signed ? Patient: John,Elle ?MR#: [id number] ?? 57 ? : 1970 ?Acct:[id number] ? Age/Sex: 54 / F ?ADM Date: 07/02/24 ? Loc: HO.ED ? Attending Dr: ? Ordering Physician: Silvia Jose ?? Date of Service: 07/02/24 ?? Procedure(s): XR foot RT 2V ?? Accession Number(s): [id number] ? cc: [facility]; Silvia Jose ? EXAMINATION: ?? XR [...] Lopez MD ??07/02/2024 03:53 PM ?? EDT ? Dictated By: ?Jose Urias MD ? Signed By: ?<Electronically signed by Jose Dumont MD in OV> ? 07/02/24 1553 ? DD/ 1501 ? TD/TT: 07/02/24 1525 ? Dietary Internship: ? Procedure Note Sadiq, Anoop - 07/02/[address] [address] XRay Report Signed Patient: Alis Lopez#: [id number] 57 : 1970Acct:[id number] Age/Sex: 54 / FADM Date: 07/02/24 Loc: HO.ED Attending Dr: Ordering Physician: Silvia Jose Date of Service: 07/02/24 Procedure(s): XR foot RT 2V Accession Number(s): [id number] cc: [facility]; Silvia Jose EXAMINATION: XR FOOT, RIGHT [...] 07/02/24 1553 DD/ 1501 TD/TT: 07/02/24 1525 Dietary Internship: [facility] External Provider IMG XR PROCEDURES Final Result documented in this encounter Visit Diagnoses Not on filedocumented in this encounter Additional Health Concerns Assessment Noted Time PHQ-9 Depression Total Score: 13 024 4:37 PM EDT documented as of this encounter Care Teams Client Strategist Relationship Specialty Start Date End Date Toyin Pollard FNP [address] [place] [address] PCP - General Family Medicine 01/11/21 Satish Brennan MD [address] [place] [address] Endocrinology 02/22/24 Jacob Morrow [address] [place] [address] Pulmonary Disease 02/22/24 Nicolasa Escobar MD [address] [place] [address] Neurology 02/22/24 Shen Davis MD [address] [facility] [place] [address] Nephrology 02/22/24 Ellyn Connolly Paediatric Thoracic PhysicianFarm Crew Member 08/17/23 [facility] 01/11/24 documented as of this encounter
--- OUTSIDE RECORDS SUMMARY | 2024-07-03 18:02 | XMS_ITS | Encounter Summary ---
Author Organization [employer] Address [address] [facility] 7t [place] [address] Care Team Providers Care Industrial Gas Fitter Name Role Phone Toyin Pollard Primary Care Provider [phone] Satish Brennan MD Unavailable [phone] Jacob Morrow Unavailable [phone] Nicolasa Escobar MD Unavailable Shen Davis MD Unavailable [phone] Reason for Visit * Reason Onset Date Comments Durable Medical Equipment 05/22/2024 Encounter Details Date Type Department Care Team (Late st Contact Info) Description 05/22/2024 Telephone [facility] MEDICINE [address] [place], [place] [phone] Toyin Pollard FNP [address] [place], [place] [phone] Durable Medical Equipment Social History Tobacco Use [...] [facility] to check status of DME. [phone] * Telephone Encounter - Lynne Flaherty - 06/26/2024 11:24 AM EDT Tc from [place] with [facility] to check status of DME. [phone] * Telephone Encounter - Mona Ivory LPN - 06/18/2024 9:39 AM EDT Call was returned to disease case manager No Answer LVM to return call [facility] DME -wipes -adult diapers 3xl -Incontinence pads/pt requesting a different brand due to rash. Pt was triaged on 05/15/24 for rash PLEASE return call to [facility] and let her know status [phone] Yorlenis been trying to help pt get [...] 05/15/24 for rash PLEASE return call to [facility] and let her know status [phone] Yorlenis been trying to help pt get DME supplies and been waiting since April. Yorlenaniket inform pt doesn't have enough source of income to buy supplies as is needed URGENTLY ! * Telephone Encounter - Mona Ivory LPN - 05/22/2024 1:33 PM EST policy writer sales communicated with [facility] to seek clarification regarding the message below. policy writer sales was informedthat the patient has received the durable medical equipment (DME), although it is not the specific brand requested, as the items being sent are those covered by the patient's insurance. policy writer sales also updated the patient on this information and recommended that the patient contact their insurance provi marc to inquire about coverage details. Tc from [place] with [facility] requesting DME -wipes -adult diapers 3xl -Incontinence [...] [facility] [address] [place] [address] Toyin Pollard FNP [address] [place] [address] 09/23/2024 11:00 AM EDT Telemedicine [facility] MED [facility] [address] [place], [place] [phone] Margret Hector RN [address] [place], [place] [phone] documented as of this encounter Goals Goal [...] documented as of this encounter Care Teams Industrial Gas Fitter Relationship Specialty Start Date End Date Toyin Pollard FNP [address] [place] [address] PCP - General Family Medicine 01/11/21 Satish Brennan MD [address] [place] [address] Endocrinology 02/22/24 Jacob Morrow [address] [place] [address] Pulmonary Disease 02/22/24 Nicolasa Escobar MD [address] [place] [address] [place] [address] Neurology 02/22/24 Shen Davis MD [address] [place] [address] Drive [address] [place] [address] Nephrology 02/22/24 Ellyn Connolly Emergency Service RestorerDip Guider Stoves 08/17/23 [facility] 01/11/24 documented as of this encounter
--- OUTSIDE RECORDS SUMMARY | 2024-07-03 18:02 | XMS_ITS | Encounter Summary ---
Author Organization [employer] Address [address] [facility] 7t [place] [address] Care Team Providers Care Marine Electrician Name Role Phone Toyin Pollard Primary Care Provider [phone] Satish Brennan MD Unavailable Jacob Morrow Unavailable [phone] Nicolasa Escobar MD Unavailable [phone] Shen Davis MD Unavailable [phone] Encounter Details Date Type Department Care Team (Late st Contact Info) Description 03/29/2023 Orders Only [facility]EDS [address] [place], [place] [phone] Maritza Daniel FNP [address] [place] [address] Social History Tobacco Use Types Packs/Day Years [...] [facility] [address] [place] [address] Toyin Pollard FNP [address] [place] [address] 09/23/2024 11:00 AM EDT Telemedicine [facility] [address] [place] [address] Margret Hector, RN [address] [place] [address] documented as of this encounter Goals Goal [...] documented as of this encounter Care Teams Marine Electrician Relationship Specialty Start Date End Date Toyin Pollard FNP [address] [place] [address] PCP - General Family Medicine 01/11/21 Satish Brennan MD [address] [place] [address] Endocrinology 02/22/[address] [place] [address] Pulmonary Disease 02/22/24 Nicolasa Escobar MD [address] [place] [address] Dr [facility] [address] [place] [address] Neurology 02/22/24 Shen Davis MD [address] [place] [address] Nephrology 02/22/24 Ellyn Connolly Oil DelivererMusic Theory Professor 08/17/23 [facility] 01/11/24 01/21/24 [facility] 01/11/24 documented as of this encounter
--- OUTSIDE RECORDS SUMMARY | 2024-07-03 18:02 | XMS_ITS | Data Portability ---
Author Organization [place] [facility] Address [address] [place] [id number] Assessment No assessment recorded. Plan of Treatment Reminders Order Date Submit Date Provider Last Modified By Organization Details Last Modified Time Details Appointments None recorded . Lab thyroid panel, serum 2016 017 [employer] [facility], [address] [place], [address], 7 12:52:40 lipid panel, serum 2016 017 [facility], [address] [place], [address], 7 12:52:40 CMP, serum or plasma 2016 017 [employer], [address] [place], [address], 7 12:52:41 CBC w/ auto diff 2016 017 [employer] [facility], [address] [place], [address], 7 12:52:41 urinalys is, complete 2016 017 [employer] [facility], [address] [place], [address], 7 12:52:42 RPR (rapid plasma reagin), serum 2016 017 [employer], [address] [place], [address], 7 12:52:42 HIV (1+2) Ab, rapid, unspecif ied specimen 2016 017 [facility] In-House Test, For Internal Use Only, Do Not Delete/merge, [id number] 7 15:14:46 Referral gynecolo gist referral 2016 017 [email or web address] Not available 7 13:35:43 cardiolo gist referral 2016 017 [email or web address] Not available 7 11:17:59 Procedures None recorded . Surgeries None recorded . Imaging None recorded . Medication Orders clonidin e HCl 0.2 mg tablet [address], [address] [place], [address], 7 13:07:06 clonidin e HCl 0.1 mg tablet [address], [address] [place] [place], [address], 7 13:07:06 atenolol 50 mg tablet 2016 017 [facility], [address] [place], [address], 7 13:10:09 cycloben zaprine 10 mg tablet 2016 017 INTERFACE [facility], [address], [place], [address], 7 17:10:12 tramadol 50 mg tablet 2016 017 [facility], [address] [place], [address], 7 07:59:06 levothyr oxine 75 mcg tablet 2016 017 INTERFACE [facility] [place], [address] [facility], [place], [address], 13:10:09 Patient TargetsNo targets recorded. Patient Instructions Encounter Date Encounter Id Patient Instructions Last Modified By Organization Details Last Modified Time 04/20/2016 [id number] high blood pressure: care instructions Not available 04/20/2016 13:07:06 learning about high blood pressure Not available 04/20/2016 13:07:06 hypothyroidism: care instructions [email or web address] Not available 04/20/2016 13:34:50 Reason for Referral [employer] Referral for Gy necologic examination Referring Physician: Andrés Phna, Internal Medicine, Encounter Date: 04/20/2016 Director Of Market Analysis Referral for Hy pothyroidism Referring Physician: Andrés Phan, Internal Medicine, Encounter Date: 04/20/2016 Results Created Date Observation Date Name Description Value Unit Range Abnormal Flag Note LastModifiedBy Organization Detail LastModifiedTime 05/24/19 17 05/24/2016 thyro id panel , serum T3 uptake 34 % 22-35 normal Not Available [employer] [facility] [address] [place], [address], 05/24/2016 12:52:40 05/24/19 17 05/24/2016 thyro id panel , serum T4 (thyroxine), total 5.4 mcg/d L 4.5-12 .0 normal Not Available [employer] [facility] [address] [place], [address], 05/24/2016 12:52:40 05/24/19 17 05/24/2016 thyro id panel , serum free T4 index (T7) 1.8 1.4-3. 8 normal Not Available [employer] [facility] [address] [place], [address], 05/24/2016 12:52:40 05/24/19 17 05/24/2016 thyro id panel , serum TSH 16.59 mIU/L high Refer ence Range > or = 20 Years 0.40- 4.50 Pregn tnig Range s First trime ster 0.26- 2.66 Secon d trime ster 0.55- 2.73 Third trime ster 0.43- 2.91 Not Available [employer] [facility] [address] [place], [address], 05/24/2016 12:52:40 05/24/19 17 05/24/2016 lipid panel , serum cholesterol, total 201 mg/dL 125-20 0 high Not Available [facility] [employer] [facility] [address] [place], [address], 05/24/2016 12:52:40 05/24/19 17 05/24/2016 lipid panel , serum HDL cholesterol 47 mg/dL > or = 46 normal Not Available [facility] [employer] [facility] [address] [place], [address], 05/24/2016 12:52:40 05/24/19 17 05/24/2016 lipid panel , serum triglyceride s 173 mg/dL <150 high Not Available [facility] [employer] [facility] [address] [place], [address], 05/24/2016 12:52:40 05/24/1905/24/2016 lipid panel , serum LDL-choleste rol 119 mg/dL _(romana c) <130 normal Phil able range <100 mg/dL for patie nts with CHD or diabe adam and <70 mg/dL for diabe tic patie nts with known heart disea se. Not Available [employer] [facility] [place], [address], 05/24/2016 12:52:40 05/24/19 17 05/24/2016 lipid panel , serum chol/HDLC ratio 4.3 (calc ) < or = 5.0 normal Not Available [employer] [facility] [address] [place], [address], 05/24/2016 12:52:40 05/24/19 17 05/24/2016 lipid panel , serum non HDL cholesterol 154 mg/dL _(romana c) normal Targe t for non-H DL blaine stero l is 30 mg/dL highe r than LDL blaine stero l targe t. Not Available [employer] [facility] [address] [place], [address], 05/24/2016 12:52:40 05/24/19 17 05/24/2016 CMP, serum or plasm a glucose 100 mg/dL 65-99 high Fasti ng refer ence inter shayy Not Available [facility] [address] [place] [address], [address], 05/24/2016 12:52:41 05/24/19 17 05/24/2016 CMP, serum or plasm a urea nitrogen (BUN) 12 mg/dL 7-25 normal Not Available [employer] [address], [address], 05/24/2016 12:52:41 05/24/19 17 05/24/2016 CMP, serum or plasm a creatinine 0.74 mg/dL 0.50-1 .10 normal Not Available [facility] [employer] [facility] [address] [place] [address], [address], 05/24/2016 12:52:41 05/24/19 17 05/24/2016 CMP, serum or plasm a eGFR non-afr. belarusian 98 mL/mi n/1.7 3m2 > or = 60 normal Not Available [employer] [facility] [address] [place] [address] [place], [address], 05/24/2016 12:52:41 05/24/19 17 05/24/2016 CMP, serum or plasm a eGFR 113 mL/mi n/1.7 3m2 > or = 60 normal Not Available [employer] [facility] [address] [place] [address] [place], [address], 05/24/2016 12:52:41 05/24/19 17 05/24/2016 CMP, serum or plasm a BUN/creatini ne ratio NOT APPLIC ABLE (calc ) 6-22 Not Available [facility] [address] [place], [address], 05/24/2016 12:52:41 05/24/19 17 05/24/2016 CMP, serum or plasm a sodium 136 mmol/ L 135-14 6 normal Not Available [address], [address], 05/24/2016 12:52:41 05/24/19 17 05/24/2016 CMP, serum or plasm a potassium 4.4 mmol/ L 3.5-5. 3 normal Not Available [address], [address], 05/24/2016 12:52:41 05/24/19 17 05/24/2016 CMP, serum or plasm a chloride 101 mmol/ L 98-110 normal Not Available [address], [address], 05/24/2016 12:52:41 05/24/19 17 05/24/2016 CMP, serum or plasm a carbon dioxide 22 mmol/ L 20-31 normal Not Available [facility] [address] [place] [address], [address], 05/24/2016 12:52:41 05/24/19 17 05/24/2016 CMP, serum or plasm a calcium 9.3 mg/dL 8.6-10 .2 normal Not Available [address], [address], 05/24/2016 12:52:41 05/24/19 17 05/24/2016 CMP, serum or plasm a protein, total 7.0 g/dL 6.1-8. 1 normal Not Available [address], [address], 05/24/2016 12:52:41 05/24/19 17 05/24/2016 CMP, serum or plasm a albumin 4.0 g/dL 3.6-5. 1 normal Not Available [employer] [facility] [address] [place], [address], 05/24/2016 12:52:41 05/24/19 17 05/24/2016 CMP, serum or plasm a globulin 3.0 g/dL_ (calc ) 1.9-3. 7 normal Not Available [employer] [facility] [address] [place] [address] [place], [address], 05/24/2016 12:52:41 05/24/19 17 05/24/2016 CMP, serum or plasm a albumin/glob ulin ratio 1.3 (calc ) 1.0-2. 5 normal Not Available [employer] [facility] [address] [place] [address] [place], [address], 05/24/2016 12:52:41 05/24/19 17 05/24/2016 CMP, serum or plasm a bilirubin, total 0.3 mg/dL 0.2-1. 2 normal Not Available [employer] [facility] [address] [place] [address] [place], [address], 05/24/2016 12:52:41 05/24/19 17 05/24/2016 CMP, serum or plasm a alkaline phosphatase 55 U/L 33-115 normal Not Available [facility] [employer] [facility] [address] [place] [address] [place], [address], 05/24/2016 12:52:41 05/24/19 17 05/24/2016 CMP, serum or plasm a AST 15 U/L 10-35 normal Not Available [employer] [facility] [address] [place] [address] [place], [address], 05/24/2016 12:52:41 05/24/19 17 05/24/2016 CMP, serum or plasm a ALT 13 U/L 6-29 normal Not Available [employer] [facility] [address] [place] [address] [place], [address], 05/24/2016 12:52:41 05/24/19 17 05/24/2016 CBC w/ auto diff white blood cell count 9.1 thous and/u L 3.8-10 .8 normal Not Available [facility] [address] [place] [address], [address], 05/24/2016 12:52:41 05/24/19 17 05/24/2016 CBC w/ auto diff red blood cell count 4.78 radha on/uL 3.80-5 .10 normal Not Available [facility] [address] [place] [address], [address], 05/24/2016 12:52:41 05/24/19 17 05/24/2016 CBC w/ auto diff hemoglobin 13.8 g/dL 11.7-1 5.5 normal Not Available [facility] [address] [place] [address], [address], 05/24/2016 12:52:41 05/24/19 17 05/24/2016 CBC w/ auto diff hematocrit 42.7 % 35.0-4 5.0 normal Not Available [facility] [address] [place] [address], [address], 05/24/2016 12:52:41 05/24/19 17 05/24/2016 CBC w/ auto diff MCV 89.5 fL 80.0-1 00.0 normal Not Available [facility] [address] [place] [address], [address], 05/24/2016 12:52:41 05/24/19 17 05/24/2016 CBC w/ auto diff MCH 28.9 pg 27.0-3 3.0 normal Not Available [facility] [address] [place] [address], [address], 05/24/2016 12:52:41 05/24/19 17 05/24/2016 CBC w/ auto diff MCHC 32.3 g/dL 32.0-3 6.0 normal Not Available [address] [place], [address], 05/24/2016 12:52:41 05/24/19 17 05/24/2016 CBC w/ auto diff RDW 13.7 % 11.0-1 5.0 normal Not Available [address], [address], 05/24/2016 12:52:41 05/24/19 17 05/24/2016 CBC w/ auto diff platelet count 305 thous and/u L 140-40 0 normal Not Available [facility] [address] [place] [address], [address], 05/24/2016 12:52:41 05/24/19 17 05/24/2016 CBC w/ auto diff MPV 10.6 fL 7.5-12 .5 normal Not Available [address], [address], 05/24/2016 12:52:41 05/24/19 17 05/24/2016 CBC w/ auto diff absolute neutrophils 5369 cells /uL 1500-7 800 normal Not Available [facility] [address] [place] [address], [address], 05/24/2016 12:52:41 05/24/19 17 05/24/2016 CBC w/ auto diff absolute lymphocytes 2739 cells /uL 850-39 00 normal Not Available [facility] [address] [place] [address], [address], 05/24/2016 12:52:41 05/24/19 17 05/24/2016 CBC w/ auto diff absolute monocytes 510 cells /uL 200-95 0 normal Not Available [employer] [facility] [address] [place] [address], [address], 05/24/2016 12:52:41 05/24/19 17 05/24/2016 CBC w/ auto diff absolute eosinophils 400 cells /uL 15-500 normal Not Available [employer] [address] [place], [address], 05/24/2016 12:52:41 05/24/19 17 05/24/2016 CBC w/ auto diff absolute basophils 82 cells /uL 0-200 normal Not Available [address], [address], 05/24/2016 12:52:41 05/24/19 17 05/24/2016 CBC w/ auto diff neutrophils 59.0 % normal Not Available [address], [address], 05/24/2016 12:52:41 05/24/19 17 05/24/2016 CBC w/ auto diff lymphocytes 30.1 % normal Not Available [address], [address], 05/24/2016 12:52:41 05/24/19 17 05/24/2016 CBC w/ auto diff monocytes 5.6 % normal Not Available [address], [address], 05/24/2016 12:52:41 05/24/19 17 05/24/2016 CBC w/ auto diff eosinophils 4.4 % normal Not Available [address], [address], 05/24/2016 12:52:41 05/24/19 17 05/24/2016 CBC w/ auto diff basophils 0.9 % normal Not Available [facility] [address], [address], 05/24/2016 12:52:41 05/24/1905/24/2016 urina lysis , compl ete color YELLOW yellow normal Not Available [facility] [address], [address], 05/24/2016 12:52:42 05/24/19 17 05/24/2016 urina lysis , compl ete appearance CLEAR clear normal Not Available [place] [address] [place], [address], 05/24/2016 12:52:42 05/24/19 17 05/24/2016 urina lysis , compl ete specific gravity 1.020 1.001- 1.035 normal Not Available [address] [place], [address], 05/24/2016 12:52:42 05/24/19 17 05/24/2016 urina lysis , compl ete pH 6.0 5.0-8. 0 normal Not Available [facility] [address] [place] [address] [place], [address], 05/24/2016 12:52:42 05/24/19 17 05/24/2016 urina lysis , compl ete glucose NEGATI VE negati ve normal Not Available [address] [place], [address], 05/24/2016 12:52:42 05/24/19 17 05/24/2016 urina lysis , compl ete bilirubin NEGATI VE negati ve normal Not Available [address] [place], [address], 05/24/2016 12:52:42 05/24/19 17 05/24/2016 urina lysis , compl ete ketones NEGATI VE negati ve normal Not Available [facility] [place] [address] [place], [address], 05/24/2016 12:52:42 05/24/19 17 05/24/2016 urina lysis , compl ete occult blood 2+ negati ve abnormal Not Available [place] [address] [place], [address], 05/24/2016 12:52:42 05/24/19 17 05/24/2016 urina lysis , compl ete protein NEGATI VE negati ve normal Not Available [address], [address], 05/24/2016 12:52:42 05/24/19 17 05/24/2016 urina lysis , compl ete nitrite NEGATI VE negati ve normal Not Available [address], [address], 05/24/2016 12:52:42 05/24/19 17 05/24/2016 urina lysis , compl ete leukocyte esterase NEGATI VE negati ve normal Not Available [address], [address], 05/24/2016 12:52:42 05/24/19 17 05/24/2016 urina lysis , compl ete WBC 0-5 /hpf < or = 5 normal Not Available [address], [address], 05/24/2016 12:52:42 05/24/19 17 05/24/2016 urina lysis , compl ete RBC 0-2 /hpf < or = 2 normal Not Available [address], [address], 05/24/2016 12:52:42 05/24/19 17 05/24/2016 urina lysis , compl ete squamous epithelial cells 0-5 /hpf < or = 5 Not Available [facility] [address], [address], 05/24/2016 12:52:42 05/24/19 17 05/24/2016 urina lysis , compl ete bacteria NONE SEEN /hpf none seen normal Not Available [address] [place], [address], 05/24/2016 12:52:42 05/24/19 17 05/24/2016 urina lysis , compl ete hyaline cast NONE SEEN /lpf none seen normal Not Available [facility] [employer] [facility] [address] [place], [address], 05/24/2016 12:52:42 05/24/19 17 05/24/2016 RPR (rapi [...] ented for this patie nt. Not Available [employer] [facility] [address] [place], [address], 05/24/2016 12:52:42 05/24/19 17 05/24/2016 RPR titer RPR titer 1:1 high Not Available [employer] [facility] [address] [place], [address], 05/24/2016 12:52:43 Result Notes None recorded. Problems Name Problem SNOMED Code Status Onset Date Resolution Date Notes Provider Name and Address Organization Details Recorded Time Adult health examination Active 2013 USER: VIJAYA Not Available [facility] 4 11:20:28 Problem Notes None recorded. Procedures Surgical History Date Name Laterality Status Provider Name and Address Organization Details Recorded Time 7 HEDIS 1125F Pain Present completed [facility] 04/20/2016 10:46:03 7 HEDIS 3077F Systolic > or equal to 140 mm Hg completed [facility] 04/20/2016 10:46:06 7 HEDIS 3080F Diastolic > or equal to 90 mm Hg completed [facility] 04/20/2016 10:46:09 Tubal Ligation completed [facility] 04/20/2016 10:43:38 Hernia Repair completed [facility] 04/20/2016 10:43:44 Imaging Results None recorded. [...] Address Organization Details Last Updated DateTime 7 986688. 58 g 98 [degF] 165.1 cm 39.8 kg/m2 97 /min 17 /min 166 mm[Hg] 131 mm[Hg] 147 mm[Hg] 117 mm[Hg] 156 mm[Hg] 117 mm[Hg] Radha Ivory [facility] 7 12:24:38 Date Recorded Pain severity - 0-10 verbal numeric rating [Score] - Reported Provider Name and Address Organization Details Last Updated DateTime 04/20/2016 6 Not Available [employer] 8 06:22:32 Social History Question Answer Notes LastModified by Organizat ion Details LastModified Time Tobacco Smoking Status Current Every Day Smoker Radha santiago [facility] 04/20/2016 10:37:28 What Is Your Level Of Alcohol Consumption? None Information not available 04/20/2016 What Is Your Level Of Caffeine Consumption? None Information not available 04/20/2016 Are You Currently Employed? No [email or web address] Information not available 04/20/2016 What Type Of Diet Are You Following? CARDIAC [email or web address] Information not available 04/20/2016 Do You Have A Directive To Physicians? Yes Information not available 04/20/2016 Education 8 [email or web address] Information no t available 04/20/2016 What Is Your Occupation? No [email or web address] Information not available 04/20/2016 Have You Been Exposed To Chemicals Or Toxins? No [email or web address] Information not available 04/20/2016 Have You Been Exposed To Heavy Metals? No [email or web address] Information not available 04/20/2016 Are There Any Guns Present In Your Home? No [email or web address] Information not available 04/20/2016 Hard Of Hearing Or Deaf In One Or Both Ears? No [email or web address] Information not available 04/20/2016 High Blood Pressure Yes [email or web address] Information not available 04/20/2016 High Cholesterol Yes [email or web address] Informat ion not available 04/20/2016 HIV Risk Factors No [email or web address] Informat ion not available 04/20/2016 Legally Blind In One Or Both Eyes? No [email or web address] Information no t available 04/20/2016 Live Alone Or With Others? With Others [email or web address] Information not available 04/20/2016 Have You Recently Traveled To Any Other Country In [place]? No [email or web address] Information not available 04/20/2016 If Yes, During This Travel Have You Been Exposed To Mosquitoes Bites? No [email or web address] Information not available 04/20/2016 Have You Experienced Any Two Of The Following Symptoms? No [email or web address] Information not available 04/20/2016 Rash No Information no t available 04/20/2016 Conjuctivitis No [email or web address] Information not available 04/20/2016 Low Grade Fever No [email or web address] Informati on not available 04/20/2016 Muscle Pain No [email or web address] Information n ot available 04/20/2016 Number Of Sexual Partners 1 [email or web address] Information not available 04/20/2016 Have You Ever Been Tested For HIV? Yes 2 Months Ago Negative [email or web address] Information not available 04/20/2016 Have You Had A Fall In The Past (6) Months? No [email or web address] Information not available 04/20/2016 Have You Ever Had A Fall That Resulted In Broken Bone? Yes Information not available 04/20/2016 Do You Have A Problem With Your Balance? Yes [email or web address] Information not available 04/20/2016 Do You Get Dizzy When You Stand Up Quickly? Yes [email or web address] Information not available 04/20/2016 Do You Have A Problem Wth Your Memory? Yes [email or web address] Information not available 04/20/2016 Marital Status [email or web address] Informatio n not available 04/20/2016 How Many Children Do You Have? 7 [email or web address] Information not available 04/20/2016 Do You Use Protection During Sex? No [email or web address] Information not available 04/20/2016 Difficulty Reading? Yes [email or web address] Information not available 04/20/2016 What Is Your Relationship Status? [email or web address] Information not available 04/20/2016 Seat Belts Used Routinely No [email or web address] Information not available 04/20/2016 Are You Sexually Active? Yes [email or web address] Information not available 04/20/2016 Sexual Partner Has HIV? No Information not available 04/20/2016 Number Of Sexual Partners 1 [email or web address] Information not available 04/20/2016 Sexual Partner Uses IV Drugs? No Information not available 04/20/2016 Smoke Alarm In Home No [email or web address] Information not available 04/20/2016 At What Age Did You Start Smoking Tobacco? 14 fqokflg27 Information not available 04/20/2016 Are You Passively Exposed To Smoke? Yes Information no t available 04/20/2016 How Much Tobacco Do You Smoke? 0.25 PPD [email or web address] Information not available 04/20/2016 General Stress Level High jlydrrl10 Information not available 04/20/2016 How Many Years Have You Smoked Tobacco? 32 [email or web address] Information not available 04/20/2016 Difficulty Watching TV? No [email or web address] Information not available 04/20/2016 Have You Used IV Drugs? No whrolvt88 Information not available 04/20/2016 Have You Recently (within The Last 12 Weeks, Or During A Current ) Traveled To Or Lived In A [place]-affected Area? No [email or web address] Information not available 04/20/2016 Sex: Unknown Functional Status Question Answer Note LastModified by Organizat ion Details LastModified Time Do you have difficulty walking or climbing stairs? No [email or web address] Information not available 04/20/[address]y [address] at night? No [email or web address] Information no t available 04/20/2016 Do you have difficulty doing errands alone? Yes [email or web address] Information not available 04/20/2016 Are you able to care for yourself? Yes umjfabl66 Information not available 04/20/2016 Do you have difficulty dressing or bathing? No Information not available 04/20/2016 What is your exercise level? Occasional olqcehs53 Information not available 04/20/2016 Mental Status Question Answer Note LastModified by Organization D etails LastModified Time Do you have difficulty concentrating, remembering or making decisions? Yes [email or web address] Information no t available 04/20/2016 Family History Relationship Description Onset Age of this Age Resolved Age Notes LastModified by Organization Details LastModified Time Maternal Grandfather Schizophreni a Not available 2016 10:36:19 Maternal Grandfather Asthma [email or web address] Not available 03/2016 10:36:56 Maternal Grandfather Heart disease Not available 2016 10:37:12 Maternal Grandmother Asthma [email or web address] Not available 03/2016 10:36:49 Maternal Grandmother Heart disease [email or web address] Not available 2016 10:37:18 Medical History No [...] SNOMED-CT Code Diagnosis ICD10 Code Diagnosis Note [id number] [facility] [address] [facility] [place] [id number] 06/19/2013 00:00:00 [id number] Stephanie barrow MD [facility] Mental [facility] [address] [place] [phone] 12/30/2015 08:10:23 12/30/2015 10:00:04 [id number] Stephanie barrow MD [facility] Mental [facility] [address] [place] [phone] 01/29/2016 07:59:02 01/29/2016 15:25:39 [id number] Stephanie barrow MD [facility] Mental Health [address] [place] [address] 02/26/2016 07:43:57 02/26/2016 09:05:47 [id number] Tawanna Valera [facility] Mental Health [address] [place] [address] 03/28/2016 08:39:33 03/28/2016 11:20:24 [id number] Tawanna Valera [facility] Mental Health [address] [place] [address] 04/05/2016 09:00:14 04/05/2016 09:13:01 [id number] Andra_Ol ler_[facility] Mental Health [address] [place] [address] 04/12/2016 09:08:56 04/12/2016 10:07:05 [id number] Stephanie barrow MD [facility] Mental Health [address] [place] [address] 04/18/2016 08:32:39 04/18/2016 09:40:55 [id number] SAMARIA Treviño [facility] Mental Health [address] [place] [address] 04/18/2016 08:35:25 04/18/2016 09:11:18 [id number] Andrés Phan MD [facility] MED [address] [place] [address] 04/20/2016 10:04:27 04/20/2016 13:35:42 Essential hypertension 59222384 I10 Gynecologi c examination 00904875 Z01.419 Hypothyroidism 47481616 E03.9 [id number] Tawanna Valera [facility] Mental Health [address] [place] [address] 05/19/2016 09:13:23 05/20/2016 14:05:08 [id number] Beatriz_Ol ler_CM [facility] Mental Health [address] [place] [address] 05/19/2016 09:17:16 05/19/2016 09:56:41 [id number] Stephanie barrow MD [facility] Mental Health [address] [place] [address] 05/23/2016 09:03:45 05/23/2016 10:08:42 [id number] Tawanna Valera [facility] Mental Health [address] [address] 06/07/2016 14:25:04 06/07/2016 15:23:36 Health Concerns Section Related Observation LastModified by Organization Detai ls LastModified Time None Recorded Concern Status LastModified by Organization Details LastModified Time None Recorded Advance Directives Directive None Recorded Payers Encounter Date Sequence Insurance Name Policy Number Policy Weston Covered Member ID Weston Member ID Guarantor Name 04/20/2016 [employer] (MOVED - BILLED) Elle Lopez [id number] Elle Lopez Notes Date Note Type Note Provider Name and Address Organization Details Recorded Time 04/20/2016 text/html the pt is here for check up she is part of [employer] Andrés Phan MD [address] [place], [address], [facility] 04/20/2016 13:11:30 OBGyn Episode No OBEpisode recorded.
--- OUTSIDE RECORDS SUMMARY | 2024-07-03 18:02 | XMS_ITS | Encounter Summary ---
Author Organization [employer] Address [address] [facility] 7t [place] [address] Care Team Providers Care Outsole Handler Name Role Phone Toyin Pollard Primary Care Provider Satish Brennan MD Unavailable Jacob Morrow Unavailable [phone] Nicolasa Escobar MD Unavailable [phone] Shen Davis MD Unavailable [phone] Reason for Visit * Reason Onset Date Comments Forms/questionnaires 03/03/2022 Encounter Details Date Type Department Care Team (Late st Contact Info) Description 03/03/2022 Telephone [facility] MEDICINE [address] [place] [address] Toyin Pollard FNP [address] [place], [place] [phone] Forms/questionnaires Social History Tobacco Use Types Packs/Day [...] 12:07 PM EST Tc from Naye from [facility] requesting status on 485 form . States they have faxed several times since November and have not yet received back . Informs needs by 03/15/22 if not pt will be discharged from services. Best contact number [phone]. There fax number is [phone] . documented in this encounter Plan of Treatment Upcoming Encounters Date Type Department Care Team (Late st Contact Info) Description 08/05/2024 10:30 AM EDT Office Visit [facility] MED & PEDS [address] [place] [address] Toyin Plolard FNP 505 [place] [address] 09/23/2024 11:00 AM EDT Telemedicine [facility] MED & PEDS [address] [place] [address] Margret Hector RN 505 [place] [address] documented as of this encounter Visit Diagnoses Not on filedocumented in this encounter Care Teams Outsole Handler Relationship Specialty Start Date End Date Toyin Pollard FNP [address] [place] [address] PCP - General Family Medicine 01/11/21 Satish Brennan MD [address] [place] [address] Endocrinology 02/22/24 Jacob Morrow 5 [place] [address] Pulmonary Disease 02/22/24 Nicolasa Escobar MD [address] [place] [address] [place] [address] Neurology 02/22/24 Shen Davis MD [address] [place] [address] Nephrology 02/22/24 Ellyn Connolly Orchid GrowerLife Support Technician 08/17/23 [facility] 01/11/24 01/21/24 [facility] 01/11/24 documented as of this encounter
--- OUTSIDE RECORDS SUMMARY | 2024-07-03 18:02 | XMS_ITS | Encounter Summary ---
Author Organization [employer] Address 75 [facility] 7t [place] [address] Care Team Providers Care Compliance Advisor Name Role Phone Toyin Pollard Primary Care Provider Satish Brennan MD Unavailable [phone] Jacob Morrow Unavailable [phone] Nicolasa Escobar MD Unavailable Shen Davis MD Unavailable [phone] Reason for Visit * Reason Comments Med Refill Encounter Details Date Type Department Care Team ([facility] st Contact Info) Description 01/24/2023 Refill [facility] MED & PEDS 505 [place], [place] [phone] Toyin Pollard FNP 505 [place], [place] [phone] Pain Social History Tobacco Use Types Packs/Day [...] AM EDT Office Visit [facility] MED & PEDS 505 [place] [address] Toyin Pollard FNP 505 [place] [address] 09/23/2024 11:00 AM EDT Telemedicine [facility] MED & PEDS 505 [place] [address] Margret Hector, MINA 505 [place] [address] documented as of this encounter Goals Goal Patient Goal Type Associated Problems Recent Progress Patient-Stated? Author Hemoglobin A1c < 7 Result Component 6.4(08/02/2023 4:30 PM EDT) No Michelel Alegria, PharmD documented as of this encounter Visit Diagnoses Diagnosis Pain Generalized pain documented in this encounter Additional Health Concerns Assessment Noted Time PHQ-9 Depression Total Score: 0 09/29/19 23 2:03 PM EDT documented as of this encounter Care Teams Compliance Advisor Relationship Specialty Start Date End Date Toyin Pollard FNP [address] [place] [address] PCP - General Family Medicine 01/11/21 Satish Brennan MD [address] [place] [address] Endocrinology 02/22/24 Jacob Morrow [address] [facility] [address] [place] [address] Pulmonary Disease 02/22/24 Nicolasa Escobar MD [address] [place] [address] [address] Neurology 02/22/24 Shen Davis MD [address] [place] [address] Nephrology 02/22/24 Ellyn Connolly Security CoordinatorMachine Inspector 08/17/23 [facility] 01/11/24 01/21/24 [facility] 01/11/24 documented as of this encounter
--- OUTSIDE RECORDS SUMMARY | 2024-07-03 18:02 | XMS_ITS | Encounter Summary ---
Author Organization [employer] Address 75 [facility] 7t [place] [address] Care Team Providers Care Gate Clerk Name Role Phone Toyin Pollard Primary Care Provider [phone] Satish Brennan MD Unavailable [phone] Jacob Morrow Unavailable [phone] Nicolasa Escobar MD Unavailable [phone] Shen Davis MD Unavailable [phone] Encounter Details Date Type Department Care Team (Late st Contact Info) Description 04/26/2022 Abstract [facility] MEDICINE [address] [place] [address] Toyin Pollard FNP 505 [place] [address] Social History Tobacco Use Types Packs/Day Years [...] AM EDT Office Visit [facility] MED & PEDS 505 [place], [place] [phone] Toyin Pollard FNP 505 [place], [place] [phone] 09/23/2024 11:00 AM EDT Telemedicine [facility] CH[facility] MED & PEDS 505 [place] [address] Margret Hector, RN [address] [place] [address] documented as of this encounter Visit Diagnoses Not on filedocumented in this encounter Care Teams Gate Clerk Relationship Specialty Start Date End Date Toyin Pollard FNP [address] [place] [address] PCP - General Family Medicine 01/11/21 Satish Brennan MD [address] [place] [address] Endocrinology 02/22/24 Jacob Morrow 5 [place] [address] Pulmonary Disease 02/22/24 Nicolasa Escobar MD [address] [place] [address] Dr [address] [place] [address] Neurology 02/22/24 Shen Davis MD [address] [place] [address] Nephrology 02/22/24 Ellyn Connolly Provider ScribeAssociate Director Of Nursing 08/17/23 [facility] 01/11/24 01/21/24 [facility] 01/11/24 documented as of this encounter
--- OUTSIDE RECORDS SUMMARY | 2024-07-03 18:02 | XMS_ITS | Encounter Summary ---
Author Organization [employer] Address [address] [place] [address] 7t [place] [address] Care Team Providers Care Glass Handler Name Role Phone Toyin Pollard Primary Care Provider Satish Brennan MD Unavailable Jacob Morrow Unavailable [phone] Nicolasa Escobar MD Unavailable Shen Davsi MD Unavailable [phone] Encounter Details Date Type Department Care Team (Late st Contact Info) Description 03/15/2022 Orders Only [facility] MED & PEDS 505 [place] [address] Ellyn Chery LPN Social History Tobacco Use [...] AM EDT Office Visit [facility] MED & PEDS 505 [place] [address] Toyin Pollard FNP 505 [place] [address] 09/23/2024 11:[address] [facility] MED & PEDS [address] [place] [address] Margret Hector, RN [address] [place] [address] documented as of this encounter Visit Diagnoses Not on filedocumented in this encounter Care Teams Glass Handler Relationship Specialty Start Date End Date Toyin Pollard FNP 230 [place] [address] PCP - General Family Medicine 01/11/21 Satish Brennan MD [address] [place] [address] Endocrinology 02/22/24 Jaocb Morrow 5 [place] [address] Pulmonary Disease 02/22/24 Nicolasa Escobar MD [address] [place] [address] Dr [facility] 140 [place] [address] Neurology 02/22/24 Shen Davis MD [address] [place] [address] Nephrology 02/22/24 Ellyn Connolly Lead CargomanProperty Staff Accountant 08/17/23 [facility] 01/11/24 01/21/24 [facility] 01/11/24 documented as of this encounter
--- OUTSIDE RECORDS SUMMARY | 2024-07-03 18:02 | XMS_ITS | Encounter Summary ---
Author Organization [employer] Address 75 [facility] 7t [place] [address] Care Team Providers Care Independent Consultant Name Role Phone Toyin Pollard Primary Care Provider [phone] Satish Brennan MD Unavailable Jacob Morrow Unavailable [phone] Nicolasa Escobar MD Unavailable Shen Davis MD Unavailable [phone] Reason for Visit * Reason Onset Date Comments PT1 01/30/2023 Encounter Details Date Type Department Care Team (Late st Contact Info) Description 01/30/2023 Telephone [facility] MEDICINE 230 [place], [place] [phone] Toyin Pollard FNP 505 [place], [place] [phone] PT1 Social History Tobacco Use Types Packs/Day [...] Date: 03/27/2022 Time: 8:30 Visits: 5 Address: [address] [place] [address] Facility: [facility] Neurology Wheel Chair: Scooter and O2 Crime Scene Investigator Needed: Yes 1 documented in this encounter Plan of Treatment Upcoming Encounters Date Type Department Care Team ([facility] st Contact Info) Description 08/05/2024 10:30 AM EDT Office Visit [facility] MED & PEDS 505 [place] [address] Toyin Pollard FNP 505 [place] [address] 09/23/2024 11:00 AM EDT Telemedicine [facility] MED & PEDS 505 [place] [address] Margret Hector, RN [address] [place] [address] documented as of this encounter Goals Goal [...] documented as of this encounter Care Teams Independent Consultant Relationship Specialty Start Date End Date Toyin Pollard FNP [address] [place] [address] PCP - General Family Medicine 01/11/21 Satish Brennan MD [address] [place] [address] Endocrinology 02/22/24 Jacob Morrow 5 [place] [address] Pulmonary Disease 02/22/24 Nicolasa Escobar MD [address] [place] [address] Dr [facility] 140 [place] [address] Neurology 02/22/24 Shen Davis MD [address] [place] [address] Nephrology 02/22/24 Ellyn Connolly Boat Canvas Maker And InstallerAirways Control Specialist 08/17/23 [facility] 01/11/24 01/21/24 [facility] 01/11/24 documented as of this encounter
--- OUTSIDE RECORDS SUMMARY | 2024-07-03 18:02 | XMS_ITS | Encounter Summary ---
Author Organization [employer] Address 75 [facility] 7t [place] [address] Care Team Providers Care Log Stacker Operator Name Role Phone Toyin Pollard Primary Care Provider [phone] Satish Brennan MD Unavailable Jacob Morrow Unavailable [phone] Nicolasa Escobar MD Unavailable Shen Davis MD Unavailable [phone] Encounter Details Date Type Department Care Team (Late st Contact Info) Description 04/26/2022 Abstract [facility] MEDICINE [address] [place] [address] Toyin Pollard FNP 505 [place] [address] Social History Tobacco Use Types Packs/Day Years [...] Description 08/05/2024 10:30 AM EDT Office Visit [facility] MED & PEDS 505 [place], [place] [phone] Toyin Pollard FNP 505 [place], [place] [phone] 09/23/2024 11:00 AM EDT Telemedicine [facility] CH[facility] MED & PEDS 505 [place] [address] Margret Hector, RN [address] [place] [address] documented as of this encounter Visit Diagnoses Not on filedocumented in this encounter Care Teams Log Stacker Operator Relationship Specialty Start Date End Date Toyin Pollard FNP [address] [place] [address] PCP - General Family Medicine 01/11/21 Satish Brennan MD [address] [place] [address] Endocrinology 02/22/24 Jacob Morrow 5 [place] [address] Pulmonary Disease 02/22/24 Nicolasa Escobar MD [address] [place] [address] Dr [address] [place] [address] Neurology 02/22/24 Shen Davis MD [address] [place] [address] Nephrology 02/22/24 Ellyn Connolly Explosive Ordnance Disposal TechnicianOutboard Motorboat Operator 08/17/23 [facility] 01/11/24 01/21/24 [facility] 01/11/24 documented as of this encounter
--- OUTSIDE RECORDS SUMMARY | 2024-07-03 18:02 | XMS_ITS | Clinical Summary ---
Author Organization [facility] Address [address] [facility] 20 0 [place] [address] Phone Care Team Providers Care Cotton Bag Sewer Name Role Phone Toyin Pollard LOUIE Primary Care Provider [phone] Social History Tobacco Use Types Packs/Day Years [...] (1 of 3 - 19+ 3-dose series) 02/16 Colorectal Cancer Screening: Annual FOBT 02/17/2020 Colorectal Cancer Screening: Colonoscopy 02/17/2020 Colorectal Cancer Screening: Sigmoidoscopy 02/17/2020 Pneumococcal Vaccine: 50+ Years (1 of 1 - PCV) 021 Influenza Vaccine (Season Ended) 2024 [place] Medicaid [place] Care Teams Cotton Bag Sewer Relationship Specialty Start Date End Date Toyin Pollard FNP [address] [place] [address] PCP - General 09/13/22
--- OUTSIDE RECORDS SUMMARY | 2024-07-03 18:02 | XMS_ITS | Encounter Summary ---
Author Organization [employer] Address 75 [facility] 7t [place] [address] Care Team Providers Care Roller Inspector Name Role Phone Toyin Pollard LOUIE Primary Care Provider [phone] Satish Brennan MD Unavailable Jacob Morrow Unavailable [phone] Nicolasa Escobar MD Unavailable Shen Davis MD Unavailable [phone] Encounter Details Date Type Department Care Team ([facility] Contact Info) Description 07/21/2022 Orders Only [facility] MED & PEDS 505 [place] [address] Ellyn Chery LPN Social History Tobacco Use [...] [facility] 505 [place] [address] Toyin Pollard FNP 505 [place] [address] 09/23/2024 11:00 AM EDT Telemedicine [facility] MED & PEDS [address] [place] [address] Margret Hector, RN [address] [place] [address] documented as of this encounter Visit Diagnoses Not on filedocumented in this encounter Care Teams Roller Inspector Relationship Specialty Start Date End Date Toyin Pollard FNP [address] [place] [address] PCP - General Family Medicine 01/11/21 Satish Brennan MD [address] [place] [address] Endocrinology 02/22/24 Jacob Morrow 5 [place] [address] Pulmonary Disease 02/22/24 Nicolasa Escobar MD [address] [place] [address] 140 [place] [address] Neurology 02/22/24 Shen Davis MD [address] [place] [address] Nephrology 02/22/24 Ellyn Connolly Service Establishment AttendantShow Design Supervisor 08/17/23 [facility] 01/11/24 01/21/24 [facility] 01/11/24 documented as of this encounter
--- OUTSIDE RECORDS SUMMARY | 2024-07-03 18:02 | XMS_ITS | Encounter Summary ---
Author Organization [employer] Address 75 [facility] 7t [place] [address] Care Team Providers Care Seed Core Operator Name Role Phone Toyin Pollard Primary Care Provider Satish Brennan MD Unavailable Jacob Morrow Unavailable [phone] Nicolasa Escobar MD Unavailable Shen Davis MD Unavailable [phone] Reason for Visit * Reason Onset Date Comments Nurse Triage 03/08/2023 Encounter Details Date Type Department Care Team (Late st Contact Info) Description 03/08/2023 Telephone [facility] MEDICINE 230 [place], [place] [phone] Toyin Pollard FNP 505 [place], [place] [phone] Nurse Triage Social History Tobacco Use Types [...] [facility] MED & PEDS 505 [place] [address] Toyin Pollard FNP 505 [place] [address] 09/23/2024 11:00 AM EDT Telemedicine [facility] MED & PEDS 505 [place] [address] Margret Hector RN 505 [place] [address] documented as of this encounter Goals Goal [...] documented as of this encounter Care Teams Seed Core Operator Relationship Specialty Start Date End Date Toyin Pollard FNP 230 [place] [address] PCP - General Family Medicine 01/11/21 Satish Brennan MD [address] [facility] [address] [place] [address] Endocrinology 02/22/24 Jacob Morrow 5 [place] [address] Pulmonary Disease 02/22/24 Nicolasa Escobar MD [address] [place] [address] Dr [address] [place] [address] Neurology 02/22/24 Shen Davis MD [address] [facility] [address] [facility] 302 [place] [address] Nephrology 02/22/24 Ellyn Connolly Consumer LenderReweaver 08/17/23 [facility] 01/11/24 01/21/24 [facility] 01/11/24 documented as of this encounter
--- OUTSIDE RECORDS SUMMARY | 2024-07-03 18:02 | XMS_ITS | Encounter Summary ---
Author Organization [employer] Address [address] [place] [address] 7t [place] [address] Care Team Providers Care Dial Painter Name Role Phone Toyin Pollard Primary Care Provider [phone] Satish Brennan MD Unavailable Jacob Morrow Unavailable [phone] Nicolasa Escobar MD Unavailable Shen Davis MD Unavailable [phone] Encounter Details Date Type Department Care Team (Late st Contact Info) Description 04/20/2022 Orders Only [facility] MEDICINE 230 [place] [address] Patrica Grimaldo LPN Social History Tobacco Use [...] [facility] MED & PEDS 505 [place] [address] Toyin Pollard FNP 505 [place] [address] 09/23/2024 11:00 AM EDT Telemedicine [facility] MED & PEDS [address] [place] [address] Margret Hector, RN [address] [place] [address] documented as of this encounter Visit Diagnoses Not on filedocumented in this encounter Care Teams Dial Painter Relationship Specialty Start Date End Date Toyin Pollard FNP 230 [place] [address] PCP - General Family Medicine 01/11/21 Satish Brennan MD [address] [place] [address] Endocrinology 02/22/24 Jacob Morrow 5 [place] [address] Pulmonary Disease 02/22/24 Nicolasa Escobar MD [address] [place] [address] [address] Neurology 02/22/24 Shen Davis MD [address] [place] [address] Nephrology 02/22/24 Ellyn Connolly Project Development ManagerLandscaping Crew Leader 08/17/23 [facility] 01/11/24 01/21/24 [facility] 01/11/24 documented as of this encounter
--- OUTSIDE RECORDS SUMMARY | 2024-07-03 18:02 | XMS_ITS | Encounter Summary ---
Author Organization [employer] Address 75 [facility] 7t [place] [address] Care Team Providers Care Pipe Insulator Name Role Phone JuddToyin barry LOUIE Primary Care Provider Satish Brennan MD Unavailable [phone] Jacob Morrow Unavailable [phone] Nicolasa Escobar MD Unavailable Shen Davis MD Unavailable [phone] Reason for Visit * Reason Onset Date Comments Appointment 12/27/2022 Encounter Details Date Type Department Care Team ([facility] st Contact Info) Description 12/27/[address] [facility] 230 [place], [place] [phone] Nestor Varela DDS 230 [place], [place] [phone] Appointment Social History Tobacco Use Types Packs/Day [...] [facility] MED & PEDS 505 [place] [address] Toyin Pollard FNP 505 [place] [address] 09/23/2024 11:00 AM EDT Telemedicine [facility] MED & PEDS 505 [place] [address] Margret Hector RN 505 [place] [address] documented as of this encounter Visit Diagnoses Not on filedocumented in this encounter Additional Health Concerns Assessment Noted Time PHQ-9 Depression Total Score: 0 09/29/19 23 2:03 PM EDT documented as of this encounter Care Teams Pipe Insulator Relationship Specialty Start Date End Date Toyin Pollard FNP 230 [place] [address] PCP - General Family Medicine 01/11/21 Satish Brennan MD [address] [place] [address] Endocrinology 02/22/24 Jacob Morrow 5 [place] [address] Pulmonary Disease 02/22/24 Nicolasa Escobar MD [address] [place] [address] [address] Neurology 02/22/24 Shen Davis MD [address] [place] [address] Nephrology 02/22/24 Ellyn Connolly Skiver HandStoryboard Artist 08/17/23 [facility] 01/11/24 01/21/24 [facility] 01/11/24 documented as of this encounter
--- OUTSIDE RECORDS SUMMARY | 2024-07-03 18:02 | XMS_ITS | Encounter Summary ---
Author Organization [employer] Address [address] [facility] 7t [place] [address] Care Team Providers Care Galvanometer Assembler Name Role Phone Toyin Pollard Primary Care Provider [phone] Satish Brennan MD Unavailable Jacob Morrow Unavailable [phone] Nicolasa Escobar MD Unavailable Shen Davis MD Unavailable [phone] Reason for Visit * Reason Onset Date Comments Durable Medical Equipment 05/16/2024 Encounter Details Date Type Department Care Team (Late st Contact Info) Description 05/16/2024 Telephone [facility] MED[facility] [address] [place], [place] [phone] Toyin Pollard FNP 505 [place], [place] [phone] Durable Medical Equipment Social History Tobacco Use [...] AM EDT Office Visit [facility] MED & PEDS 505 [place] [address] Toyin Pollard FNP 505 [place] [address] 09/23/2024 11:00 AM EDT Telemedicine [facility] MED & PEDS 505 [place] [address] Margret Hector, MINA 505 [place] [address] documented as of this encounter Goals Goal [...] Date End Date Toyin Pollard FNP [address] [place] [address] PCP - General Family Medicine 01/11/21 Satish Brennan MD [address] [place] [address] Endocrinology 02/22/24 Jacob Morrow 5 [place] [address] Pulmonary Disease 02/22/24 Nicolasa Escobar MD [address] [place] [address] Dr [facility] 140 [place] [address] Neurology 02/22/24 Shen Davis MD [address] [place] [address] Nephrology 02/22/24 Ellyn Connolly V Belt InspectorSericulturist 08/17/23 [facility] 01/11/24 documented as of this encounter
== END 2024-07-03 15:33 | disposition home or self-care (01) ==
LOC: HO.SH 15:32
PROVIDERS: Visit Provider Registered Nurse
DX: Z46.1 Encounter for fitting and adjustment of hearing aid (principal); H90.3 Sensorineural hearing loss, bilateral; H90.A32 Mixed conductive and sensorineural hearing loss, unilateral, left ear with restricted hearing on the contralateral side
CPT/HCPCS: 92593; 99499

== ENCOUNTER 2024-07-15 09:02 | Outpatient (REF) | payer MEDICAID, SELFPAY ==
--- OUTSIDE RECORDS SUMMARY | 2024-07-15 09:50 | XMS_ITS | Encounter Summary ---
Author Organization [employer] Address 75 [facility] 7t [place] [address] Care Team Providers Care Engineering Designer Name Role Phone Toyin Pollard Primary Care Provider Satish Brennan MD Unavailable Jacob Morrow Unavailable [phone] Nicolasa Escobar MD Unavailable [phone] Shen Davis MD Unavailable [phone] Reason for Visit * Reason Onset Date Comments transportation needed 05/15/2024 Encounter Details Date Type Department Care Team (Late st Contact Info) Description 05/15/2024 Telephone [facility] 230 [place], [place] [phone] Toyin Pollard FNP 505 [place], [place] [phone] transportation needed Social History Tobacco Use Types [...] - 05/15/2024 2:22 PM EST TC from [facility] Mica Laminating Machine Feeder to pt reports pt needing stretcher transportation for upcoming visit with [facility] 05/21/24 . Psychotherapist believe they are requesting an ambulance service. documented in this encounter Plan of Treatment Upcoming Encounters Date Type Department Care Team (Late st Contact Info) Description 08/05/2024 10:30 AM EDT Office Visit [facility] MED & PEDS 505 [place] [address] Toyin Pollard FNP 505 [place] [address] 09/23/2024 11:00 AM EDT Telemedicine [facility] MED & PEDS 505 [place] [address] Margret Hector, RN 505 [place] [address] documented as of this encounter Goals Goal [...] documented as of this encounter Care Teams Engineering Designer Relationship Specialty Start Date End Date Toyin Pollard FNP 230 [place] [address] PCP - General Family Medicine 01/11/21 Satish Brennan MD [address] [facility] 104 [place] [address] Endocrinology 02/22/24 Jacob Morrow 5 [place] [address] Pulmonary Disease 02/22/24 Nicolasa Escobar MD [address] [place] [address] Dr [facility] 140 [place] [address] Neurology 02/22/24 Shen Davis MD [address] [place] [address] Nephrology 02/22/24 Ellyn Connolly Polysomnography TechCustomer Experience Analyst 08/17/23 [facility] 01/11/24 documented as of this encounter
--- OUTSIDE RECORDS SUMMARY | 2024-07-15 09:50 | XMS_ITS | Encounter Summary ---
Author Organization [employer] Address 75 [facility] 7t [place] [address] Care Team Providers Care Accuracy Expert Name Role Phone Toyin Pollard LOUIE Primary Care Provider [phone] Satish Brennan MD Unavailable [phone] Jacob Morrow Unavailable [phone] Nicolasa Escobar MD Unavailable Shen Davis MD Unavailable [phone] Encounter Details Date Type Department Care Team ([facility] Contact Info) Description 05/23/2022 Orders Only [facility] MED & PEDS 505 [place] [address] Ellyn Chery LPN Social History Tobacco Use [...] Upcoming Encounters Date Type Department Care Team ([facility] Contact Info) Description 08/05/2024 10:30 AM EDT Office Visit [facility] MED & PEDS 505 [place] [address] Toyin Pollard FNP 505 [place] [address] 09/23/2024 11:00 AM EDT Telemedicine [facility] MED & PEDS 505 [place] [address] Margret Hector, RN [address] [place] [address] documented as of this encounter Visit Diagnoses Not on filedocumented in this encounter Care Teams Accuracy Expert Relationship Specialty Start Date End Date Toyin Pollard FNP [address] [place] [address] PCP - General Family Medicine 01/11/21 Satish Brennan MD [address] [facility] 104 [place] [address] Endocrinology 02/22/24 Jacob Morrow 5 [place] [address] Pulmonary Disease 02/22/24 Nicolasa Escobar MD [address] [place] [address] Neurology 02/22/24 Shen Davis MD [address] [facility] 302 [place] [address] Nephrology 02/22/24 Ellyn Connolly Loss Prevention/Safety District ManagerMarine Engine Machinist Apprentice 08/17/23 [facility] 01/11/24 01/21/24 [facility] 01/11/24 documented as of this encounter
--- OUTSIDE RECORDS SUMMARY | 2024-07-15 09:50 | XMS_ITS | Encounter Summary ---
Author Organization [employer] Address 75 [facility] 7t [place] [address] Care Team Providers Care Unclaimed Property Officer Name Role Phone Toyin Pollard Primary Care Provider Satish Brennan MD Unavailable [phone] Jacob Morrow Unavailable [phone] Nicolasa Escobar MD Unavailable Shen Davis MD Unavailable [phone] Encounter Details Date Type Department Care Team (Late st Contact Info) Description 04/22/2024 Telephone [facility] MEDICINE 230 [place], [place] [phone] Toyin Pollard FNP [address] [place], [place] [phone] Social History Tobacco Use Types Packs/Day Years [...] the past 12 months, has t he [email or web address], gas, oil or water company threatened to [...] [facility] MED & PEDS 505 [place] [address] Toyin Pollard FNP 505 [place] [address] 09/23/2024 11:00 AM EDT Telemedicine [facility] MED & PEDS 505 [place] [address] Margret Hector, MINA 505 [place] [address] documented as of this encounter Goals Goal [...] documented as of this encounter Care Teams Unclaimed Property Officer Relationship Specialty Start Date End Date Toyin Pollard FNP 230 [place] [address] PCP - General Family Medicine 01/11/21 Satish Brennan MD [address] [place] [address] Endocrinology 02/22/24 Jacob Morrow 5 [place] [address] Pulmonary Disease 02/22/24 Nicolasa Escobar MD [address] [facility] 140 [place] [address] Neurology 02/22/24 Shen Davis MD [address] [place] [address] Nephrology 02/22/24 Ellyn Connolly X Ray ConsultantSole Splitter 08/17/23 [facility] 01/11/24 documented as of this encounter
--- OUTSIDE RECORDS SUMMARY | 2024-07-15 09:50 | XMS_ITS | Encounter Summary ---
Author Organization [employer] Address 75 [facility] 7t [place] [address] Care Team Providers Care Sound Truck Operator Name Role Phone Toyin Pollard Primary Care Provider Satish Brennan MD Unavailable [phone] Jacob Morrow Unavailable [phone] Nicolasa Escobar MD Unavailable [phone] Shen Davis MD Unavailable [phone] Reason for Visit * Reason Onset Date Comments ER Follow-up 06/06/2023 Encounter Details Date Type Department Care Team (Late st Contact Info) Description 06/06/[address] [facility] MEDICINE 230 [place] [address] Toyin Pollard FNP 505 [place], [place] [phone] ER Follow-up Social History Tobacco Use Types [...] provided by ED. Pt requested appt at [facility] and scheduled pt with Dr. Franko Monet for 06/11 at 3:45 pm. Pt verbalized understanding and agreement with plan. * Telephone Encounter - Joseph Lopez - 06/06/2023 3:51 PM EDT Patient calling to report ED visit on : Date: 06/04 Hospital: [facility] Seen for: COPD and bronchitis Patient advised will forward to team nurse for follow up documented in this encounter Plan of Treatment Upcoming Encounters Date Type Department Care Team ([facility] st Contact Info) Description 08/05/2024 10:30 AM EDT Office Visit [facility] MED & PEDS 505 [place], [place] [phone] Toyin Pollard FNP 505 [place] [address] 09/23/2024 11:00 AM EDT Telemedicine [facility] MED [facility] PEDS 505 [place], [place] [phone] Margret Hector, RN 505 [place], [place] documented as of this encounter Goals [...] documented as of this encounter Care Teams Sound Truck Operator Relationship Specialty Start Date End Date Toyin Pollard FNP 230 [place] [address] PCP - General Family Medicine 01/11/21 Satish Brennan MD [address] [place] [address] Endocrinology 02/22/24 Jacob Morrow 5 [place] [address] Pulmonary Disease 02/22/24 Nicolasa Escobar MD [address] [place] [address] [place] [address] Neurology 02/22/24 Shen Davis MD [address] [place] [address] Nephrology 02/22/24 Ellyn Connolly Recording Studio Setup WorkerOil Processing Technician 08/17/23 [facility] 10/24/24 11/3/24 [facility] 01/11/24 documented as of this encounter
--- OUTSIDE RECORDS SUMMARY | 2024-07-15 09:50 | XMS_ITS | Encounter Summary ---
Author Organization [employer] Address 75 [facility] 7t [place] [address] Care Team Providers Care Elementary Classroom Teacher Name Role Phone Toyin Pollard Primary Care Provider Satish Brennan MD Unavailable Jacob Morrow Unavailable [phone] Nicolasa Escobar MD Unavailable Shen Davis MD Unavailable [phone] Reason for Visit * Reason Onset Date Comments Durable Medical Equipment 12/19/2023 Encounter Details Date Type Department Care Team (Late st Contact Info) Description 12/19/2023 Telephone [facility] MED [facility] PEDS 505 [place], [place] [phone] Toyin Pollard FNP 505 [place], [place] [phone] Durable Medical Equipment Social History Tobacco Use [...] 10:27 AM EDT Tc from [facility] case investigator calling to see if DME can be which to mass surgical supply due to [facility] not doing delivery. DME Disposable bed pads documented in this encounter Plan of Treatment Upcoming Encounters Date Type Department Care Team (Late st Contact Info) Description 08/05/2024 10:30 AM EDT Office Visit [facility] MED & PEDS 505 [place] [address] Toyin Pollard FNP 505 [place] [address] 09/23/2024 11:00 AM EDT Telemedicine [facility] MED & PEDS 505 [place] [address] Margret Hector, RN [address] [place] [address] documented as of this encounter Goals Goal [...] documented as of this encounter Care Teams Elementary Classroom Teacher Relationship Specialty Start Date End Date Toyin Pollard FNP 230 [place] [address] PCP - General Family Medicine 01/11/21 Satish Brennan MD [address] [place] [address] Endocrinology 02/22/24 Jacob Morrow 5 [place] [address] Pulmonary Disease 02/22/24 Nicolasa Escobar MD [address] [place] [address] Dr [facility] 140 [place] [address] Neurology 02/22/24 Shen Davis MD [address] [place] [address] Nephrology 02/22/24 Ellyn Connolly Seam SewerBridge Tender 08/17/23 [facility] 01/11/24 01/21/24 [facility] 01/11/24 documented as of this encounter
--- OUTSIDE RECORDS SUMMARY | 2024-07-15 09:50 | XMS_ITS | Encounter Summary ---
Author Organization [employer] Address 75 [facility] 7t [place] [address] Care Team Providers Care Textile Artist Name Role Phone Toyin Pollard Primary Care Provider Satish Brennan MD Unavailable Jacob Morrow Unavailable [phone] Nicolasa Escobar MD Unavailable Shen Davis MD Unavailable [phone] Reason for Visit * Reason Onset Date Comments Hospital Follow-up 11/06/2023 Encounter Details Date Type Department Care Team (Late st Contact Info) Description 11/06/2023 Telephone [facility] MEDICINE 230 [place] [address] Toyin Pollard FNP 505 [place], [place] [phone] Hospital Follow-up Social History Tobacco Use Types [...] from pt requesting a F appt. Hospital: [facility] Date of admission: 10/25 Discharge date: 11/03 Diagnosed: Ankle injury documented in this encounter Plan of Treatment Upcoming Encounters Date Type Department Care Team (Late st Contact Info) Description 08/05/2024 10:30 AM EDT Office Visit [facility] MED & PEDS 505 [place] [address] Toyin Pollard FNP 505 [place] [address] 09/23/2024 11:00 AM EDT Telemedicine [facility] MED & PEDS 505 [place] [address] Margret Hector, RN 505 [place] [address] documented as of this encounter Goals Goal [...] documented as of this encounter Care Teams Textile Artist Relationship Specialty Start Date End Date Toyin Pollard FNP [address] [place] [address] PCP - General Family Medicine 01/11/21 Satish Brennan MD [address] [facility] [address] [facility] 104 [place] [address] Endocrinology 02/22/24 Jacob Morrow 5 [place] [address] Pulmonary Disease 02/22/24 Nicolasa Escobar MD [address] [place] [address] Dr [place] 140 [place] [address] Neurology 02/22/24 Shen Davis MD [address] [place] [address] Nephrology 02/22/24 Ellyn Connolly Market Development AnalystFilm And Video Editor 08/17/23 [facility] 01/11/24 01/21/24 [facility] 01/11/24 documented as of this encounter
--- OUTSIDE RECORDS SUMMARY | 2024-07-15 09:50 | XMS_ITS | Encounter Summary ---
Author Organization [email or web address] Address 75 [facility] 7t [place] [address] Care Team Providers Care Manager Green Name Role Phone Toyin Pollard Primary Care Provider Satish Brennan MD Unavailable Jacob Morrow Unavailable [phone] Nicolsaa Escobar MD Unavailable Shen Davis MD Unavailable [phone] Encounter Details Date Type Department Care Team (Late st Contact Info) Description 06/15/2022 Orders Only [facility] MED & PEDS 505 [place] [address] Ellyn Chery LPN Social History Tobacco Use [...] [facility] MED & PEDS 505 [place] [address] Toyin Pollard FNP 505 [place] [address] 09/23/2024 11:00 AM EDT Telemedicine [facility] MED & PEDS [address] [place] [address] Margret Hector, RN [address] [place] [address] documented as of this encounter Visit Diagnoses Not on filedocumented in this encounter Care Teams Manager Green Relationship Specialty Start Date End Date Toyin Pollard FNP 230 [place] [address] PCP - General Family Medicine 01/11/21 Satish Brennan MD [address] [place] [address] Endocrinology 02/22/24 Jacob Morrow 5 [place] [address] Pulmonary Disease 02/22/24 Nicolasa Escobar MD [address] [place] [address] Dr [facility] 140 [place] [address] Neurology 02/22/24 Shen Davis MD [address] [place] [address] Nephrology 02/22/24 Ellyn Connolly Art Class ModelPlant Physiologist 08/17/23 [facility] 01/11/24 01/21/24 [facility] 01/11/24 documented as of this encounter
--- OUTSIDE RECORDS SUMMARY | 2024-07-15 09:50 | XMS_ITS | Encounter Summary ---
Author Organization [employer] Address [address] [facility] 7t [place] [address] Care Team Providers Care Admissions Recruiter Name Role Phone Toyin Pollard Primary Care Provider Satish Brennan MD Unavailable Jacob Morrow Unavailable [phone] Nicolasa Escobar MD Unavailable [phone] Shen Davis MD Unavailable [phone] Reason for Visit * Reason Onset Date Comments PT1 11/02/2022 Encounter Details Date Type Department Care Team (Late st Contact Info) Description 11/02/2022 Telephone [facility] MEDICINE 230 [place], [place] [phone] Toyin Pollard FNP 505 [place], [place] [phone] PT1 Social History Tobacco Use Types Packs/Day [...] with better life requesting a PT1 Location: [facility] Specialty: Provider or clinic appts Date&Time:n/A Funding Analyst:N/a documented in this encounter Plan of Treatment Upcoming Encounters Date Type Department Care Team (Late st Contact Info) Description 08/05/2024 10:30 AM EDT Office Visit [facility] MED & PEDS 505 [place] [address] Toyin Pollard FNP 505 [place] [address] 09/23/2024 11:00 AM EDT Telemedicine [facility] MED & PEDS 505 [place] [address] Margret Hector, RN 505 [place] [address] documented as of this encounter Visit Diagnoses Not on filedocumented in this encounter Additional Health Concerns Assessment Noted Time PHQ-9 Depression Total Score: 0 09/29/19 23 2:03 PM EDT documented as of this encounter Care Teams Admissions Recruiter Relationship Specialty Start Date End Date Toyin Pollard FNP 230 [place] [address] PCP - General Family Medicine 01/11/21 Satish Brennan MD [address] [place] [address] Endocrinology 02/22/24 Jacob Morrow 5 [place] [address] Pulmonary Disease 02/22/24 Nicolasa Escobar MD [address] [place] [address] [place] [address] Neurology 02/22/24 Shen Davis MD [address] [place] [address] Nephrology 02/22/24 Ellyn Connolly Pro Shop AttendantCampus Director 08/17/23 [facility] 01/11/24 01/21/24 [facility] 01/11/24 documented as of this encounter
--- OUTSIDE RECORDS SUMMARY | 2024-07-15 09:50 | XMS_ITS | Encounter Summary ---
Author Organization [employer] Address 75 [facility] 7t [place] [address] Care Team Providers Care Curing Room Worker Name Role Phone Toyin Pollard Primary Care Provider [phone] Satish Brennan MD Unavailable [phone] Jacob Morrow Unavailable [phone] Nicolasa Escobar MD Unavailable Shen Davis MD Unavailable [phone] Reason for Visit * Reason Onset Date Comments Referral 01/08/2024 Encounter Details Date Type Department Care Team ([facility] st Contact Info) Description 01/08/2024 Telephone [facility] MEDICINE 230 [place] [address] Toyin Pollard FNP 505 [place], [place] [phone] Referral Social History Tobacco Use Types Packs/Day [...] - 01/08/2024 2:01 PM EDT Tc from [facility] Jennifer from [facility] . mAanda indicates they will process the referral for mpt therapy. documented in this encounter Plan of Treatment Upcoming Encounters Date Type Department Care Team ([facility] st Contact Info) Description 08/05/2024 10:30 AM EDT Office Visit [facility] MED & PEDS 505 [place] [address] Toyin Pollard FNP 505 [place] [address] 09/23/2024 11:00 AM EDT Telemedicine [facility] MED & PEDS 505 [place] [address] Margret Hector, RN 505 [place] [address] documented as of this encounter Goals Goal [...] documented as of this encounter Care Teams Curing Room Worker Relationship Specialty Start Date End Date Toyin Pollard FNP [address] [place] [address] PCP - General Family Medicine 01/11/21 Satish Brennan MD [address] [facility] [address] [facility] 104 [place] [address] Endocrinology 02/22/24 Jacob Morrow 5 [place] [address] Pulmonary Disease 02/22/24 Nicolasa Escobar MD [address] [place] [address] Neurology 02/22/24 Shen Davis MD [address] [facility] [address] [facility] 302 [place] [address] Nephrology 02/22/24 Ellyn Connolly Summer Child CaregiverCrematory Operator 08/17/23 [facility] 01/11/24 01/21/24 [facility] 01/11/24 documented as of this encounter
--- OUTSIDE RECORDS SUMMARY | 2024-07-15 09:50 | XMS_ITS | Encounter Summary ---
Author Organization [employer] Address 75 [facility] 7t [place] [address] Care Team Providers Care Metal Smelter Name Role Phone Toyin Pollard Primary Care Provider Satish Brennan MD Unavailable Jacob Morrow Unavailable [phone] Nicolasa Escobar MD Unavailable Shen Davis MD Unavailable [phone] Encounter Details Date Type Department Care Team (Late Contact Info) Description 05/24/2022 Abstract [facility] MEDICINE 230 [place] [address] Toyin Pollard FNP 505 [place], [place] [phone] Social History Tobacco Use Types Packs/Day Years [...] Upcoming Encounters Date Type Department Care Team ([facility] Contact Info) Description 08/05/2024 10:30 AM EDT Office Visit [facility] MED & PEDS 505 [place] [address] Toyin Pollard FNP 505 [place] [address] 09/23/2024 11:00 AM EDT Telemedicine [facility] MED & PEDS 505 [place] [address] Margret Hector, MINA [address] [place] [address] documented as of this encounter Visit Diagnoses Not on filedocumented in this encounter Care Teams Metal Smelter Relationship Specialty Start Date End Date Toyin Pollard FNP [address] [place] [address] PCP - General Family Medicine 01/11/21 Satish Brennan MD [address] [place] [address] Endocrinology 02/22/24 Jacob Morrow 5 [place] [address] Pulmonary Disease 02/22/24 Nicolasa Escobar MD [address] [place] [address] Neurology 02/22/24 Shen Davis MD [address] [facility] 302 [place] [address] Nephrology 02/22/24 Ellyn Connolly Restorative CoordinatorCommunity Product Specialist 08/17/23 [facility] 01/11/24 01/21/24 [facility] 01/11/24 documented as of this encounter
--- OUTSIDE RECORDS SUMMARY | 2024-07-15 09:50 | XMS_ITS | Encounter Summary ---
Author Organization [employer] Address [address] [place] [address] Care Team Providers Care Range Conservationist Name Role Phone Toyin Pollard Primary Care Provider Satish Brennan MD Unavailable Jacob Morrow Unavailable [phone] Nicolasa Escobar MD Unavailable Shen Davis MD Unavailable [phone] Reason for Visit * Reason Onset Date Comments Durable Medical Equipment 07/06/2022 Encounter Details Date Type Department Care Team (Late st Contact Info) Description 07/06/2022 Telephone [facility] [address] [place] [address] Toyin Pollard FNP [address] [place], [place] [id number] Durable Medical Equipment Social History Tobacco Use [...] [facility] [address] [place] [address] Toyin Pollard FNP [address] [place] [address] 09/23/2024 11:00 AM EDT Telemedicine [facility] [address] [place] [address] Margret Hector RN [address] [place] [address] documented as of this encounter Visit Diagnoses Not on filedocumented in this encounter Care Teams Range Conservationist Relationship Specialty Start Date End Date Toyin Pollard FNP [address] [place] [address] PCP - General Family Medicine 01/11/21 Satish Brennan MD [address] [facility] [address] [place] [address] Endocrinology 02/22/24 Jacob Morrow [address] [place] [address] Pulmonary Disease 02/22/24 Nicolasa Escobar MD [address] [place] [address] Dr [address] [place] [address] Neurology 02/22/24 Sehn Davis MD [address] [place] [address] Nephrology 02/22/24 Ellyn Connolly Tool LiaisonOcularist 08/17/23 [facility] 01/11/24 01/21/24 [facility] 01/11/24 documented as of this encounter
--- OUTSIDE RECORDS SUMMARY | 2024-07-15 09:50 | XMS_ITS | Encounter Summary ---
Author Organization [employer] Address [address] [place] [address] Care Team Providers Care Radiator Cleaner Name Role Phone Toyin Pollard Primary Care Provider [phone] Satish Brennan MD Unavailable [phone] Jacob Morrow Unavailable [phone] Nicolasa Escobar MD Unavailable Shen Davis MD Unavailable [phone] Reason for Visit * Reason Onset Date Comments MRI order 10/03/2022 FYI 10/03/2022 Encounter Details Date Type Department Care Team (Late st Contact Info) Description 10/03/[address] [facility] [address] [place], [place] [id number] Toyin Pollard FNP [address] [place], [place] [phone] MRI order ; Social History Tobacco Use [...] - 10/03/2022 2:16 PM EDT Tc from [facility] MRI Dept microwave supervisor would like to inform PCP that pt was unable to get MRI done ,due to being a closed scanner , States will be faxing order to [facility] since they have a MRI scanner that is open. Advised will leave message as a FYI if any questions or concerns please contact at [phone] * Telephone Encounter - Azalea Guerrero RN - 10/03/2022 2:05 PM EDT [facility] received updated order. * Telephone Encounter - Clara Simmons - 10/03/2022 9:34 AM EDT Tc from racheal with [facility] requesting a new order for MRI abdomin. States MRI has to be MRI abdomin with and without contrast. She is also requesting a call in regards to ct scan done at [facility]. Please contact racheal at [phone] Fax number: [phone] documented in this encounter Plan of Treatment Upcoming Encounters Date Type Department Care Team (Late st Contact Info) Description 08/05/2024 10:30 AM EDT Office Visit [facility] [address] [place] [address] Toyin Pollard FNP [address] [place] [address] 09/23/2024 11:00 AM EDT Telemedicine [facility] [address] [place] [address] Margret Hector, MIN[place] [address] [place] [address] documented as of this encounter Visit Diagnoses Not on filedocumented in this encounter Additional Health Concerns Assessment Noted Time PHQ-9 Depression Total Score: 0 09/29/19 23 2:03 PM EDT documented as of this encounter Care Teams Radiator Cleaner Relationship Specialty Start Date End Date Toyin Pollard FNP [address] [place] [address] PCP - General Family Medicine 01/11/21 Satish Brennan MD [address] [place] [address] Endocrinology 02/22/24 Jacob Morrow [address] [place] [address] Pulmonary Disease 02/22/24 Nicolasa Escobar MD [address] [place] [address] Dr [address] [place] [address] Neurology 02/22/24 Shen Davis MD [address] [place] [address] Nephrology 02/22/24 Ellyn Connolly Sign Language TeacherGeophysical Laboratory Supervisor 08/17/23 [facility] 01/11/24 01/21/24 [facility] 01/11/24 documented as of this encounter
--- OUTSIDE RECORDS SUMMARY | 2024-07-15 09:50 | XMS_ITS | Clinical Summary ---
Author Organization [employer] Address [address] [facility] [address] [place] [address] Care Team Providers Care Lining Ironer Name Role Phone JuddToyin barry LOUIE Primary Care Provider [phone] Satish Brennan MD Unavailable Jacob Morrow Unavailable [phone] Nicolasa Escobar MD Unavailable Shen Davis MD Unavailable [phone] Allergies Active Allergy Reactions Criticality Noted Date Comments Haloperidol Unknown High 03/22/2022 Other reaction(s): Irritable Latex Rash Low 01/14/2021 Metformin Diarrhea,Hives High 01/14/2021 Morphine Itching,Rash Low 02/07/2019 Tetracycline Hives High 03/22/2022 Medications TRUEplus Lancets 33G miscIndications: Type 2 diabetes mellitus with complication ([facility]/HCC) 1 Lancet in the morning, at noon, [...] Continuous Glucose Sensor (FreeStyle Todd 2 Sensor) [facility] [place] USE DIRECTED CHANGE EVERY 14 DAYS Active [...] BEDTIME 90 tablet 025 Active nystatin (Nyamyc) 835501 UNIT/GM powderIndication s:Tinea APPLY TOPICALLY TO AFFECTED [...] eorder (will not trigger notification to Pharmacy)) cetirizine (ZyrTEC) 10 MG tabletIndication s:Seasonal allergies TAKE 1 TABLET BY MOUTH EVERY DAY NEEDED FOR ALLERGIES 90 tablet 3 024 2024 Discontinued scopolamine (Transderm-Scop) 1 MG/3DAYS [...] hypothyroidism 11/15/2022 Overview (11/15/2022): ?? Followed by [facility] Endo Lab Results Component Value Date TSH [...] maintenance 11/10/2022 Overview (08/05/2023): Optometry: followed by [facility], last appt Feb 2021 Mammogram: BIRADS 2 02/21/2019, due. Ordered 11/15/22 Colonoscopy: followed by GI, referral for screening colonoscopy placed 11/15/22. Cologuard negative 03/08/23 Pap: overdue, pt does not recall last pap. Will schedule with [facility] CNM in handicap accessible room Last PE: 07/17/23 Assessment & Plan (07/19/2023 10:15 AM EDT): Labs ordered today, showed hyperkalemia, but with hemolysis Will repeat at next appointment with PCP ADHD 09/28/2022 History of posttraumatic stress disorder (PTSD) 09/28/2022 Migraine 09/28/2022 Assessment & Plan (02/25/2024 6:26 PM EST): - History of migraines, previously using sumatripan. Discontinued with history of KS - Referral to Neuro for further eval and tx 11/15/22 -Nurtec 75mg tablet approval - PA # [id number], exp 02/12/25 - pt reports med effective. Denies med SE Assessment & Plan (08/05/2023 5:08 PM EDT): - History of migraines, previously using sumatripan. Discontinued with history of KS - Referral to Neuro for further eval and tx 11/15/22 -Nurtec 75mg tablet approved May 2023. #[id number] will on 12/17/23 - pt reports med effective. Denies med SE Assessment & Plan (11/15/2022 5:45 PM EDT): - History of migraines, previously using sumatripan. Discontinued with history of KS - PA for Nurtec denied through PCP [...] -Patient will follow outpt Vasc Surg at [facility] - Dr. Canales -Incidental measuring on CT [...] patient about the risks and harms of residential opioid use - Pt goal is to [...] patient about the risks and harms of residential opioid use - Pt goal is to lose enough weight so that she is eligible for gall bladder surgery, was referred to Weight management clinic 10/08/21 Chronic constipation 05/05/2021 COPD (chronic obstructive pulmonary disease) Assessment & Plan (02/25/2024 6:20 PM EST): - Patient continues on supplemental oxygen: 6L/min @ rest or when sitting, and 8L/min when up and moving around. - Following with [facility] Pulmonology - Dr. Morrow - Chronic SOB. Denies any fevers, chills, difficulty breathing, cough, or mucous production. Reports that she has enough supplemental O2 at home -Continue with Breztri (yunvlvrxft-aqnmtjna-tnkkvnfqdn) BID -Albuterol PRN -DME request for neb machine placed 11/15/22 Assessment & Plan (11/15/2022 5:33 PM EDT): - Patient continues on supplemental oxygen: 6L/min @ rest or when sitting, and 8L/min when up and moving around. - Following with [facility] Pulmonology - Dr. Morrow - Marycarmen SOB. Denies any fevers, chills, difficulty breathing, cough, or mucous production. Reports that she has enough supplemental O2 at home -Continue with Breztri (nlnkaurdjn-amxffgeq-vwcteevuhn) BID -Albuterol PRN -DME request for neb [...] Plan (02/25/2024 6:25 PM EST): Following with [facility] Endo Continue Mounjaro & Toujeo, with goal of weight loss leading to bariatric surgery Lab Results Component Value Date HGBA1C 6.4 (A) 08/02/2023 HGBA1C 6.7 (A) 07/17/2023 HGBA1C 10.4 (A) 03/01/2023 HGBA1C TNP 07/20/2022 HGBA1C 7.8 (H) 01/11/2021 HGBA1C 11.9 (H) 11/11/2019 HGBA1C 11.9 (H) 11/11/2019 A1c: congratulated in improvement with A1c levels Eye exam: due, schedule with [facility] Foot exam: referral to podiatry 11/15/22 Dental: encouraged PNA: UTD ACEi/ARB: yes Statin: yes ASA: yes Lifestyle: Encouraged regular movement as able and aerobic exercise for improved glycemic control Encouraged daily foot checks Encouraged lean protein snacks and to avoid foods high in sugar and simple carbohydrates Medications: Per [facility] Endo Toujeo insulin: 64 units at bedtime Humalog 14 units TID AC Mounjaro 7.5mg subcutaneous weekly Treatment Goals: A1c goal: <7% FBG goal: <130 2 hour post prandial goal: <180 Assessment & Plan (08/05/2023 5:09 PM EDT): Following with [facility] Endo Continue Bree & Jonatan, with goal of weight loss leading to bariatric surgery Lab Results Component Value Date HGBA1C 6.4 (A) 08/02/2023 HGBA1C 6.7 (A) 07/17/2023 HGBA1C 10.4 (A) 03/01/2023 HGBA1C 7.8 (H) 01/11/2021 HGBA1C 11.9 (H) 11/11/2019 HGBA1C 11.9 (H) 11/11/2019 A1c: congratulated in improvement with A1c levels Eye exam: due, schedule with [facility] Foot exam: referral to podiatry 11/15/22 Dental: encouraged PNA: UTD ACEi/ARB: yes Statin: yes ASA: yes Lifestyle: Encouraged regular movement as able and aerobic exercise for improved glycemic control Encouraged daily foot checks Encouraged lean protein snacks and to avoid foods high in sugar and simple carbohydrates Medications: Per [facility] Endo Treatment Goals: A1c goal: <7% FBG goal: <130 2 hour post prandial goal: <180 Assessment & Plan (07/19/2023 10:16 AM EDT): Following with [facility] Endo Continue Bree with goal of weight loss leading to bariatric surgery Lab Results Component Value Date HGBA1C 10.4 (A) 03/01/2023 A1c: above goal Eye exam: due, schedule with [facility] Foot exam: referral to podiatry 11/15/22 Dental: encouraged PNA: UTD ACEi/ARB: yes Statin: yes ASA: yes Lifestyle: Encouraged regular movement as able and aerobic exercise for improved glycemic control Encouraged daily foot checks Encouraged lean protein snacks and to avoid foods high in sugar and simple carbohydrates Medications: Per [facility] Endo Treatment Goals: A1c goal: <7% FBG goal: <130 2 hour post prandial goal: <180 Assessment & Plan (03/02/2023 4:56 PM EST): Following with [facility] Endo Lab Results Component Value Date HGBA1C 10.4 (A) 03/01/2023 A1c: above goal Eye exam: due, schedule with [facility] Foot exam: referral to podiatry 11/15/22 Dental: encouraged PNA: UTD ACEi/ARB: yes Statin: yes ASA: yes Lifestyle: Encouraged regular movement as able and aerobic exercise for improved glycemic control Encouraged daily foot checks Encouraged lean protein snacks and to avoid foods high in sugar and simple carbohydrates Medications: ? ? Per [facility] Endo Treatment Goals: A1c goal: <7% FBG goal: <130 2 hour post prandial goal: <180 Assessment & Plan (11/15/2022 5:38 PM EDT): Following with [facility] Endo Lab Results Component Value Date HGBA1C 10.1 (A) 09/28/2022 A1c: above goal Eye exam: due, schedule with [facility] Foot exam: referral to podiatry 11/15/22 Dental: encouraged PNA: UTD ACEi/ARB: yes Statin: yes ASA: does not appear to be taking, although hx of KS. Will refer to [facility] for further eval. Lifestyle: Encouraged regular movement as able and aerobic exercise for improved glycemic control Encouraged daily foot checks Encouraged lean protein snacks and to avoid foods high in sugar and simple carbohydrates Medications: ? ? Per [facility] Endo Treatment Goals: A1c goal: <7% FBG [...] Encounters Date Type Department Care Team Description 07/11/2024 Telephone [facility] [address] [place] [address] Toyin Pollard FNP Record Request; Lab Orders 07/09/2024 Orders Only [facility] [address] [place] [address] Francisco Javier Fields MD Stress incontinence of urine (Primary Dx) 07/06/2024 Refill [facility] [address] [place] [address] Toyin Pollard FNP Migraine without status migrainosus, not intractable, unspecified migraine type 07/05/2024 Telephone [facility] [address] [place] [address] Toyin Pollard FNP ER Follow-up 07/02/2024 Orders Only [facility] External Provider, [facility] 06/27/2024 10:30 AM EDT Clinical Support [facility] [address] [place] [address] Margret Hector, MINA Pain 06/27/2024 Refill [facility] [address] [place] [address] Margret Hector, RN Pain; Calculus of gallbladder without cholecystitis without obstruction; Long-term current use of opiate analgesic; Dizziness, nonspecific 06/27/2024 Travel 06/26/2024 Telephone [facility] [address] [place] [address] Toyin Pollard FNP Ambulance transportation 06/18/2024 Refill [facility] [address] [place] [address] Toyin Pollard FNP Seasonal allergies 06/17/2024 Refill [facility] [address] [place] [address] Toyin Pollard FNP 06/06/2024 Refill [facility] [address] [place] [address] Toyin Pollard FNP Tinea 05/31/2024 Population Health Risk Score [facility] () Department [address] [place] [phone] Provider, Population Health Generic 05/29/2024 Refill [facility] [address] [place] [address] Toyin Pollard FNP Pain; Calculus of gallbladder without cholecystitis without obstruction; Long-term current use of opiate analgesic 05/27/2024 Refill [facility] [address] [place] [address] Toyin Pollard FNP 05/23/2024 Refill [facility] [address] [place] [address] Toyin Pollard FNP 05/22/2024 Telephone [facility] [address] [place] [address] Toyin Pollard FNP Appointment Confirmation 05/22/2024 Telephone [facility] [address] [place] [phone] Toyin Pollard FNP Durable Medical Equipment 05/22/2024 Refill [facility] [address] [place] [address] Toyin Pollard FNP 05/21/2024 Telephone [facility] [address] [place] [address] Margret Hector, MINA 05/21/2024 Telephone [facility] [address] [place] [address] Margret Hector, RN 05/20/2024 Telephone [facility] [address] [place] [address] Toyin Pollard FNP 05/16/2024 Telephone [facility] [address] [place] [address] Toyin Pollard FNP Durable Medical Equipment 05/15/2024 Patient Outreach [facility] [address] [place] [address] Toyin Pollard FNP Care Coordination (CHW outreach for SDOH PT-1 and food needs-referral completed /) 05/15/2024 Telephone [facility] [address] [place] [address] Toyin Pollard FNP transportation needed 05/15/2024 Telephone [facility] [address] [place] [address] Toyin Pollard FNP Nurse Triage 05/15/2024 Refill [facility] [address] [place] [address] Toyin Pollard FNP Dizziness, nonspecific 04/30/2024 Refill [facility] [address] [place] [address] Toyin Pollard FNP Smokes cigarettes 04/22/2024 Telephone [facility] [address] [place] [address] Toyin Pollard FNP 04/19/2024 Refill [facility] [address] [place] [address] Toyin Pollard FNP Dizziness, nonspecific from Last 3 Months Immunizations Name Administration [...] [facility] [address] [place] [address] Toyin Pollard FNP [address] [place] [address] 09/23/2024 11:00 AM EDT Telemedicine [facility] [address] [place] [address] Margret Hector, RN [address] [place] [address] Health Maintenance Due Date Last Done Comments [...] 2023 2, 11/30/2021, 02/24/2021, Additional history exists Diabetes: Hemoglobin A1C 02/02/2024 024, 07/17/2023, 03/01/2023, Additional history exists Cervical Cancer Screening 02/21/2024 HPV/Cotest 02/21/2024 02/20/2019 Lipid Panel 07/16/2024 07/17/2023 Depression Screening 08/01/2024 08/02/2023, 08/02/19 24 Tobacco Screening 08/27/2024 08/28/2023 Colorectal Cancer Screening [...] VIEWS Routine 05/02/2024 1 2:07 AM EST POCT GLYCATED HEMOGLOBIN, TOTAL Routine 08/02/2023 [...] Recently Relevant to Health Maintenance Results * Culture, Urine, Routine (07/02/2024 5:05 PM EDT) Urine Urine specimen obtained by clean catch procedure / Unknown 07/02/2024 5:05 PM EDT 07/02/2024 5:05 PM EDT Comment:[facility] - 07/04/2024 7:42 AM EDT Escherichia coli ESBL Note: NOTE: Extended-Spectrum Beta-Lactamase enzyme present Quant > 100,000 cfu/mL Escherichia coli: Ampicillin >=32(R) Escherichia coli: Cefazolin (Urine) >=32(R) Escherichia coli: Cefepime >=32(R) Escherichia coli: Ceftriaxone >=64(R) Escherichia coli: Ciprofloxacin >=4(R) Escherichia coli: Ertapenem <=0.12(S) Escherichia coli: Gentamicin >=16(R) Escherichia coli: Nitrofurantoin <=16(S) Escherichia coli: Trimethoprim/Sulfamethoxazole >=320(R) Specimen Source: Urine clean catch us Generic External Data Provider LAB MICROBIOLOGY - GENERAL ORDERABLES Final Result [facility] [address] [place] [phone] * (ABNORMAL) Urinalysis, Complete, with Reflex to Culture (07/02/2024 4:10 PM EDT) Color Urine Dark Yellow [facility] Appearance Urine Cloudy [facility] PH 7.5 5.0 - 9.0 [facility] Glucose Urine UA Negative Negative mg/dL [facility] Urine Blood Trace(A) Negative [facility] Specific [place] - Urine 1.015 1.005 - 1.025 [facility] Urine Protein Trace Neg-Trace mg/dL [facility] Urine Ketones Negative Negative mg/dL [facility] Nitrite Urine Positive(A) Negative [facility] Leukocyte Esterase Urine Large (3+)(A) Negative [facility] RBC Urine 6-10(A) 0 - 2 /HPF [facility] Urine WBC >50(A) 0 - 5 /HPF [facility] Urine Squamous Epithelial Cell 0-2 0 - 2 /HPF [facility] Urine Bacteria 4+ None Seen [facility] Hyaline Casts, Urine 0-2 0 - 2 /LPF [facility] 07/02/2024 4:10 PM EDT 07/02/2024 4:19 PM EDT Narrative [facility] - 07/02/2024 4:59 PM EDT [id number], Clean Catch us Generic External Data Provider LAB URINE ORDERAB LES Final Result [facility] [address] [place] [address] [phone] * (ABNORMAL) Comprehensive Metabolic Panel (07/02/2024 3:33 PM EDT) Sodium 127(L) 135 - 145 mmol/L [facility] Potassium 4.9 3.3 - 5.1 mmol/L [facility] Chloride 82(L) 96 - 108 mmol/L [facility] Carbon Dioxide 35(H) 22 - 29 mmol/L [facility] Anion Gap 15 12 - 20 [facility] Urea Nitrogen (BUN) 9 9 - 16 mg/dL [facility] Creatinine, Serum 0.67 0.5 - 1.4 mg/dL [facility] Creatinine Clr Calc Pharmacy 182.1 [facility] Comment:Provided height and weight: 167.64 cm,208 kg.eGFR (calculated from the MDRD study equation) and eCrCl(calculated from the Cockcroft-Gault equation) are based ondifferent parameters and may not yield comparable results.If eCrCl result is absurd, please check patient'sheight/weight. Estimated Glomerular Filt Rate >60 [facility] Comment:Chronic Kidney Disea se: Estimated GFR < 60 mL/min/1.10h3Wiixth Kidney Disease: Estimated GFR < 15 mL/min/1.73m2 Glucose 133(H) 60 - 115 mg/dL [facility] Calcium 9.7 8.4 - 10.2 mg/dL [facility] Bilirubin, Total 0.2 0.0 - 1.0 mg/dL [facility] Aspartate Amino Transferase 19 5 - 31 U/L [facility] Alanine Aminotransferase 10 0 - 31 U/L [facility] Total Protein 7.0 6.5 - 8.0 g/dL [facility] Albumin Level 4.0 3.5 - 5.0 g/dL [facility] Alkaline Phosphatase 54 39 - 117 U/L [facility] 07/02/2024 3:33 PM EDT 07/02/2024 3:36 PM EDT us Generic External Data Provider LAB BLOOD ORDERAB LES Final Result [facility] [address] [place] [address] [phone] * XR Foot 1-2 Views Right (07/02/2024 3:01 PM EDT) Anatomical Region Laterality Modality Lower Extremities, Foot Right Radiogra phic Imaging 07/02/2024 3:01 PM EDT Narrative 07/02/2024 3:56 PM EDT ? [facility] ?[address] ?[place] [address] ?XRay Report ? Signed ? Patient: Elle Lopez ?MR#: [id number] ?? 57 ? : 1970 ?Acct:[id number] ? Age/Sex: 54 / F ?ADM Date: 07/02/24 ? Loc: HO.ED ? Attending Dr: ? Ordering Physician: Silvia Jose ?? Date of Service: 07/02/24 ?? Procedure(s): XR foot RT 2V ?? Accession Number(s): [id number] ? cc: [facility]; Silvia Jose ? EXAMINATION: ?? XR [...] DD/ 1501 ? TD/TT: 07/02/24 1525 ? Machine Tool Builder: ? Procedure Note Donotnathalieinterpreter, Image - 07/02/[address] [address] XRay Report Signed Patient: Elle LopezMR#: [id number] 57 : 1970Acct:[id number] Age/Sex: 54 / FADM Date: 07/02/24 Loc: HO.ED Attending Dr: Ordering Physician: Silvia Jose Date of Service: 07/02/24 Procedure(s): XR foot RT 2V Accession Number(s): [id number] cc: [facility]; Silvia Jose EXAMINATION: XR FOOT, RIGHT [...] 07/02/24 1553 DD/ 1501 TD/TT: 07/02/24 1525 Machine Tool Builder: us [facility] External Provider IMG XR PROCEDURES Final Result * XR Ankle 2 Views Right (07/02/2024 3:01 PM EDT) Anatomical Region Laterality Modality Lower Extremities, Ankle Right Radiogr aphic Imaging 07/02/2024 3:01 PM EDT Narrative 07/02/2024 3:58 PM EDT ? [facility] ?[address] ?[place] [address] ?XRay Report ? Signed ? Patient: Elle Lopez ?MR#: [id number] ?? 57 ? : 1970 ?Acct:[id number] ? Age/Sex: 54 / F ?ADM Date: 07/02/24 ? Loc: HO.ED ? Attending Dr: ? Ordering Physician: Silvia Jose ?? Date of Service: 07/02/24 ?? Procedure(s): XR ankle RT 2V ?? Accession Number(s): [id number] ? cc: [facility]; Silvia Jose ? EXAMINATION: ?? XR [...] DD/ 1501 ? TD/TT: 07/02/24 1525 ? Machine Tool Builder: ? Procedure Note Sadiq, Image - 04/15/[address] [address] XRay Report Signed Patient: Elle LopezMR#: [id number] 57 : 1970Acct:[id number] Age/Sex: 54 / FADM Date: 07/02/24 Loc: HO.ED Attending Dr: Ordering Physician: Silvia Jose Date of Service: 07/02/24 Procedure(s): XR ankle RT 2V Accession Number(s): [id number] cc: [facility]; Silvia Jose EXAMINATION: XR ANKLE, RIGHT [...] 07/02/24 1556 DD/ 1501 TD/TT: 07/02/24 1525 Machine Tool Builder: [facility] External Provider IMG XR PROCEDURES Final Result * POCT BAKARI-14 Urine Drug Screen (06/27/2024 11:20 AM EDT) TCA, Urine Positive Urine Urine specimen obtained by clean catch procedure / Unknown 06/27/2024 11:20 AM EDT Narrative Margret Hector RN - 06/27/2024 11:20 AM EDT Lot# [id number] Exp: 11-06-25 Toyin Pollard CUSTOMER ACQUISITION SPECIALIST POINT OF CARE TEST ENTER/EDIT ORDERABLES Final Result * XR Pelvis 1-2 Views (05/02/2024 12:07 AM EST) Anatomical Region Laterality Modality Body, Pelvis Radiographic Padmini ging 05/02/2024 12:0 7 AM EST Narrative 05/02/2024 12:10 AM EST ? [facility] ?[address] ?[place] [address] ?XRay Report ? Signed ? Patient: Elle Lopez ?MR#: [id number] ?? 57 ? : 1970 ?Acct:[id number] ? Age/Sex: 54 / F ?ADM Date: 05/01/24 ? Loc: HO.ED ? Attending Dr: ? Ordering Physician: Layne Chambers ?? Date of Service: 05/01/24 ?? Procedure(s): XR pelvis 1-2V ?? Accession Number(s): [id number] ? cc: Layne Chambers; [facility] ? CLINICAL HISTORY: pain, fx? Pelvis, 1 view ? COMPARISON: Portions of CT/SR - CT ABDOMEN PELVIS W IV CON - //23 11:37 ?? EDT ? FINDINGS: ?? No acute fracture. No dislocation. ?? Unremarkable soft tissues. ? IMPRESSION: ?? No acute findings. ? This document has been electronically signed by: Eren Tolbert MD on ?? 05/02/2024 00:07:20 ? Dictated By: ?Eren Tolbert MD ? Signed By: ?<Electronically signed by Eren Tolbert MD in OV> ?05/02/24 0008 ? DD/ 0007 ? TD/TT: 05/02/24 0007 ? Machine Tool Builder: ? Procedure Note Sadiq, Anoop - 05/02/[address] [address] XRay Report Signed Patient: Elle Lopez#: [id number] 57 : 1970Acct:[id number] Age/Sex: 54 / FADM Date: 05/01/24 Loc: HO.ED Attending Dr: Ordering Physician: Layne Chambers Date of Service: 05/01/24 Procedure(s): XR pelvis 1-2V Accession Number(s): [id number] cc: Layne Chambers; [facility] CLINICAL HISTORY: pain, fx? Pelvis, 1 [...] MD in OV> 05/02/247 DD/ TD/TT: 05/02/246 Machine Tool Builder: [facility] External Provider IMG XR PROCEDURES Final Result * (ABNORMAL) POCT HGB A1C (08/02/2023 4:30 PM EDT) Hemoglobin A1C 6.4(A) 4.0 - 6.0 % QC Media Lot # [id number] Lot# Expiration Date [id number] Blood 08/02/2023 4:30 PM EDT Toyin Pollard CUSTOMER ACQUISITION SPECIALIST POINT OF CARE TEST ENTER/EDIT ORDERABLES Final Result * Hepatitis C Antibody with Reflex to HCV, RNA, Quantitative, Real-Time PCR (07/19/2023 12:30 PM EDT) Hepatitis C Antibody Nonreactive Nonreactive [facility] Comment:Antibodies to HCV no t detected; does not exclude early acuteHCV infection. Blood Venous blood specimen / Unknown 07/19/2023 12:30 PM EDT 07/19/2023 1:00 PM EDT Agustina Toribio MD LAB BLOOD ORDERABLES Final Res ult [facility] [address] [place] [phone] * HIV-1/2 Antigen and Antibodies, Fourth Generation, with Reflexes (07/19/2023 12:30 PM EDT) Pathologist [facility] HIV AB/AG Nonreactive Nonreactive [facility] Comment:HIV-1 p24 Ag and/or HIV-1/HIV-2 Ab not detected.A test result that is nonreactive does not exclude thepossibility of exposure to or infection with HIV-1 and/orHIV-2. Nonreactive results in this assay for individualswith prior exposure to HIV-1 and/or HIV-2 may be due toantigen and antibody levels that are below the limit ofdetection of this assay.[employer] HIV Ag/Ab Combo assay result andsupplemental assay results should be interpreted inconjunction with the patient's clinical presentation,history and other laboratory results. If the results areinconsistent with clinical evidence, additional testing issuggested to confirm the result. Blood Venous blood specimen / Unknown 07/19/2023 12:30 PM EDT 07/19/2023 1:00 PM EDT us Agustina Toribio MD LAB BLOOD ORDERABLES Final Res ult [facility] [address] [place] [phone] * (ABNORMAL) Lipid Panel, Standard (07/17/2023 4:09 PM EDT) Pathologist [facility] Triglycerides 171(H) <150 mg/dL [facility] Comment:Desirable Triglyceri de: less than 150 mg/dLBorderline High Triglyceride 150-199 mg/dLHigh Triglyceride: 200-499 mg/dLVery High Triglyceride: greater than or equal to 5OO mg/dL Cholesterol 176 <200 mg/dL [facility] Comment:Desirable Cholestero l: less than 200 mg/dLBorderline High Cholesterol: 200-239 mg/dLHigh Cholesterol: greater than 239 mg/dL LDL Cholesterol Calculated 77 <100 mg/dL [facility] Comment:Desirable LDL: less than 100 mg/dLNear Optimal/Above Optimal LDL: 110- 129 mg/dLBorderline High LDL: 130-159 mg/dLHigh LDL: 160-189 mg/dLVery High LDL: greater than or equal to 190 mg/dL HDL Cholesterol 65 >40 mg/dL [facility] Comment:Desirable HDL: great er than 40 mg/dL Note: This HDL assay may give artificially low results in patients with liver disease. Blood Venous blood specimen / Unknown 07/17/2023 4:09 PM EDT 07/17/2023 5:46 PM EDT us Agustina Toribio MD LAB BLOOD ORDERABLES Final Res ult [facility] [address] [place] [phone] * Cologuard?? colon cancer screening (03/08/2023 3:30 PM EST) Cologuard Result Negative Negative 03/16/20 9:24 AM EST [employer] (CLIA #:[id number]) Comment: NEGATIVE TEST RESULT. A negative Cologuard [...] cancer. ??Following a negative Cologuard result, the [place] Cancer Society and U.S. Multi-Society Task Force screening guidelines recommend a Cologuard re-screening interval of 3 years. References: [place] [employer] Guideline for Colorectal Cancer Screening: https://www.cancer.org/cancer/ihyne-tmkcaw-zjfwxo/guxgvctyw-lwlkbkfhe-nfuxuwh/ac s-rec ommendations.html.; Miguel DK, Maria Elena CHEW, Lester DILLON, Colorectal Cancer Screening: Recommendations for Physicians and Patients from the U.S. Multi-Society Task Force on Colorectal Cancer Screening , Am J Gastroenterology 2017; 112:2347-9652. TEST DESCRIPTION: Composite algorithmic analysis of stool [...] Josue et al, N Engl J Med 2014;370(14):8352-5517.) Cologuard may produce a false negative or false positive result (no colorectal cancer or precancerous polyp present at colonoscopy follow up). A negative Cologuard test result does not guarantee the absence of CRC or advanced adenoma (pre-cancer). The current Cologuard screening interval is every 3 years. ([place] Cancer Society and U.S. Multi-Society Task Force). Cologuard performance data in a 10,000 patient pivotal study using colonoscopy as the reference method can be accessed at the following location: www.[employer]/results. Additional description of the Cologuard test process, warnings and precautions can be found at www.cologuard.com. Stool specimen (specimen) 03/08/2023 3:30 PM EST 03/09/2023 7:12 PM EST Toyin Pollard [facility] MOLECULAR DIAGNOSTICS DRE FRY Final Result [employer] (CLIA #:[id number]) [place] [address], * Mammography Report 1 (05/27/2020 2:30 PM [...] ORDERABLES Final Resul t Performing Organization Address [facility]/ZIP Co de Phone Number [facility] [address] * HPV mRNA E6/E7 (02/20/2019 8:58 AM EST) HPV mRNA E6/E7 Not Detected NOT DETECTED [facility] Comment: This test was performed using the APTIMA(R) HPV Assay ([employer] This assay detects E6/E7 viral messenger RNA (mRNA) from 14 high-risk HPV types (16,18,31,33,35,39,45,51, 52,56,58,59,66,68). For additional information please refer to: http://education.sabio labs/faq/YPG503n6 (This link is being provided for informational/ educational purposes only.) The analytical performance characteristics of this assay have been determined by [employer] [place], [place]. The modifications have not been cleared or approved by the FDA. This assay has been validated pursuant to the CLIA regulations and is used for clinical purposes. Test Performed by [facility], [facility], [address] [place] [address] Randy Willson M.D., Ph.D., Director of Laboratories , CLIA [id number] Please note: ??Effective 11/30/2015, HPV testing will be performed using [facility]'s APTIMA test which targets mRNA. Detecting mRNA instead of DNA, as in older methods, offers significant improvements in specificity. 02/20/2019 8:58 AM EST us Carina Fontaine CNM HISTORICAL/NON ORDERABLE LABS Final Result Performing Organization Address [facility] de Phone Number [facility] [address] [place] [address], [place] from Last 3 Months or Most Recently Relevant to Health Maintenance Insurance Care Teams Lining Ironer Relationship Specialty Start Date End Date Toyin Pollard FNP [address] [place] [address] PCP - General Family Medicine 01/11/21 Satish Brennan MD [address] [place] [address] Endocrinology 02/22/24 Jacob Morrow [address] [place] [address] Pulmonary Disease 02/22/24 Nicolasa Escobar MD [address] [place] [address] [address] Neurology 02/22/24 Shen Davis MD [address] [place] [address] Nephrology 02/22/24 Ellyn Connolly Body Corporate ManagerFarm Forestry And Garden Workers 08/17/23 [facility] 01/11/24
--- OUTSIDE RECORDS SUMMARY | 2024-07-15 09:50 | XMS_ITS | Encounter Summary ---
Author Organization [employer] Address 75 [facility] 7t [place] [address] Care Team Providers Care Financial Services Rep Name Role Phone Toyin Pollard LOUIE Primary Care Provider [phone] Satish Brennan MD Unavailable Jacob Mororw Unavailable [phone] Nicolasa Escobar MD Unavailable Shen Davis MD Unavailable [phone] Reason for Visit * Reason Comments Med Refill Encounter Details Date Type Department Care Team (Late st Contact Info) Description 08/24/2023 Refill [facility] [address] [place], [place] [phone] Agustina Toribio MD 230 [place], [place] [phone] Social History Tobacco Use Types Packs/Day Years [...] the past 12 months, has t he [employer], gas, oil or water company threatened to [...] [facility] [address] [place] [address] Toyin Pollard FNP 505 [place] [address] 09/23/2024 11:00 AM EDT Telemedicine [facility] 505 [place] [address] Margret Hector, MINA 505 [place] [address] documented as of this encounter Goals Goal [...] as of this encounter Care Teams Financial Services Rep Relationship Specialty Start Date End Date Phalen, Toyin, RUBBER GOODS INSPECTOR [address] [place] [address] PCP - General Family Medicine 01/11/21 Satish Brennan MD [address] [place] [address] Endocrinology 02/22/24 Jacob Morrow [address] [place] [address] Pulmonary Disease 02/22/24 Nicolasa Escobar MD [address] [place] [address] [address] Neurology 02/22/24 Shen Davis MD [address] [place] [address] Nephrology 02/22/24 Ellyn Connolly Implementation SpecialistSales Attendant Building Materials 08/17/23 [facility] 01/11/24 01/21/24 [facility] 01/11/24 documented as of this encounter
--- OUTSIDE RECORDS SUMMARY | 2024-07-15 09:50 | XMS_ITS | Encounter Summary ---
Author Organization [employer] Address 75 [facility] 7t [place] [address] Care Team Providers Care Arc Welder Name Role Phone Toyin Pollard Primary Care Provider [phone] Satish Brennan MD Unavailable [phone] Jacob Morrow Unavailable [phone] Nicolasa Escobar MD Unavailable Shen Davis MD Unavailable [phone] Reason for Visit * Reason Onset Date Comments Hospital Follow-up 09/19/2022 Encounter Details Date Type Department Care Team (Late st Contact Info) Description 09/19/[address] [facility] 230 [place] [address] Toyin Pollard FNP 505 [place], [place] [phone] Hospital Follow-up Social History Tobacco Use Types [...] a HDF appt. Pt was admitted at [facility] on 09/08/22 and discharged on 09/16/22. Pt was diagnosed with pneumonia. Please contact dionisio at [phone] documented in this encounter Plan of Treatment Upcoming Encounters Date Type Department Care Team (Late st Contact Info) Description 08/05/2024 10:30 AM EDT Office Visit [facility] MED & PEDS 505 [place] [address] Toyin Pollard FNP 505 [place] [address] 09/23/2024 11:00 AM EDT Telemedicine [facility] P[facility]S 505 [place] [address] Margret Hector RN 505 [place], [place] [phone] documented as of this encounter Visit Diagnoses Not on filedocumented in this encounter Care Teams Arc Welder Relationship Specialty Start Date End Date Toyin Pollard FNP [address] [place] [address] PCP - General Family Medicine 01/11/21 Satish Brennan MD [address] [place] [address] Endocrinology 02/22/24 Jacob Morrow 5 [place] [address] Pulmonary Disease 02/22/24 Nicolasa Escobar MD [address] [place] [address] [place] [address] Neurology 02/22/[address] [place] [address] Nephrology 02/22/24 Ellyn Connolly RoastermanBusiness Segment Manager 08/17/23 [facility] 01/11/24 01/21/24 [facility] 01/11/24 documented as of this encounter
--- OUTSIDE RECORDS SUMMARY | 2024-07-15 09:50 | XMS_ITS | Encounter Summary ---
Author Organization [employer] Address 75 [facility] 7t [place] [address] Care Team Providers Care Singe Machine Operator Name Role Phone Toyin Pollard Primary Care Provider Satish Brennan MD Unavailable Jacob Morrow Unavailable [phone] Nicolasa Escobar MD Unavailable Shen Davis MD Unavailable [phone] Reason for Visit * Reason Onset Date Comments PT1 10/04/2022 Encounter Details Date Type Department Care Team (Late st Contact Info) Description 10/04/2022 Telephone [facility] 230 [place], [place] [phone] Toyin Pollard FNP 505 [place], [place] [phone] PT1 Social History Tobacco Use Types Packs/Day [...] 10/04/2022 12:12 PM EDT GLENDY Hanna from [facility] requesting a pt1 to Location:[address] [place] [address] [address] [place] [address] Specialty: MRI Date&Time: 10/11/22 @ 9am Manufacturing Clerk: n/a Pt does uses a scooter documented in this encounter Plan of Treatment Upcoming Encounters Date Type Department Care Team (Late st Contact Info) Description 08/05/2024 10:30 AM EDT Office Visit [facility]ED[facility] 505 [place] [address] Toyin Pollard FNP 505 [place] [address] 09/23/2024 11:00 AM EDT Telemedicine [facility] 505 [place] [address] Margret Hector, RN 505 [place] [address] documented as of this encounter Visit Diagnoses Not on filedocumented in this encounter Additional Health Concerns Assessment Noted Time PHQ-9 Depression Total Score: 0 09/29/19 23 2:03 PM EDT documented as of this encounter Care Teams Singe Machine Operator Relationship Specialty Start Date End Date Toyin Pollard FNP [address] [place] [address] PCP - General Family Medicine 01/11/21 Satish Brennan MD [address] [place] [address] Endocrinology 02/22/24 Jacob Morrow [address] [place] [address] Pulmonary Disease 02/22/24 Nicolasa Escobar MD [address] [facility] [address] [address] Neurology 02/22/24 Shen Davis MD [address] [place] [address] Nephrology 02/22/24 Ellyn Connolly Form Tamping Machine OperatorBroadcast News Producer 08/17/23 [facility] 01/11/24 01/21/24 [facility] 01/11/24 documented as of this encounter
--- OUTSIDE RECORDS SUMMARY | 2024-07-15 09:51 | XMS_ITS | Encounter Summary ---
Author Organization [employer] Address 75 [facility] 7t [place] [address] Care Team Providers Care Allied Health Professional Name Role Phone Toyin Pollard Primary Care Provider Satish Brennan MD Unavailable [phone] Jacob Morrow Unavailable [phone] Nicolasa Escobar MD Unavailable [phone] Shen Davis MD Unavailable [phone] Reason for Visit * Reason Onset Date Comments Nurse Triage 03/08/2023 Encounter Details Date Type Department Care Team (Late st Contact Info) Description 03/08/2023 Telephone [facility] MED[facility] 230 [place], [place] [phone] Toyin Pollard FNP 505 [place], [place] [phone] Nurse Triage Social History Tobacco Use Types Packs/Day Years Used Date Smoking Tobacco: Former Cigarettes Smokeless Tobacco: Never Alcohol Use Standard Drinks/Week Comments Never 0 (1 standard drink = 0.6 oz pur e alcohol) Depression Answer Date Recorded Patient Health Questionnaire-9 Score 0 09/28/2022 Housing Stability Answer Date Recorded What is your housing situation today? I have cesarseble adnersen 01/02/[address] you li [...] Upcoming Encounters Date Type Department Care Team ([facility] st Contact Info) Description 08/05/2024 10:30 AM EDT Office Visit [facility]S 505 [place] [address] Toyin Pollard FNP 505 [place] [address] 09/23/2024 11:00 AM EDT Telemedicine [facility] 505 [place] [address] Margret Hector RN 505 [place] [address] documented as of this encounter Goals Goal [...] documented as of this encounter Care Teams Allied Health Professional Relationship Specialty Start Date End Date Toyin Pollard FNP 230 [place] [address] PCP - General Family Medicine 01/11/21 Satish Brennan MD [address] [facility] [address] [facility] [address] [place] [address] Endocrinology 02/22/24 Jacob Morrow 5 [place] [address] Pulmonary Disease 02/22/24 Nicolasa Escobar MD [address] [place] [address] Dr [place] [address] [place] [address] Neurology 02/22/24 Shen Davis MD [address] [facility] [address] [facility] 302 [place] [address] Nephrology 02/22/24 Ellyn Connolly Settlement ProcessorDock Builder 08/17/23 [facility] 01/11/24 01/21/24 [facility] 01/11/24 documented as of this encounter
--- OUTSIDE RECORDS SUMMARY | 2024-07-15 09:51 | XMS_ITS | Encounter Summary ---
Author Organization [employer] Address 75 [facility] 7t [place] [address] Care Team Providers Care Licensed Club Manager Name Role Phone Toyin Pollard Primary Care Provider Satish Brennan MD Unavailable Jacob Morrow Unavailable [phone] Nicolasa Escobar MD Unavailable [phone] Shen Davis MD Unavailable [phone] Encounter Details Date Type Department Care Team (Late st Contact Info) Description 07/13/2022 Orders Only [facility] MEDICINE 230 [place] [address] Toyin Pollard FNP 505 [place], [place] [phone] Social History Tobacco Use Types Packs/Day Years [...] Description 08/05/2024 10:30 AM EDT Office Visit [facility]EDS 505 [place], [place] [phone] Toyin Pollard FNP 505 [place], [place] [phone] 09/23/2024 11:00 AM EDT Telemedicine [facility]S 505 [place] [address] Margret Hector, RN [address] [place] [address] documented as of this encounter Visit Diagnoses Not on filedocumented in this encounter Care Teams Licensed Club Manager Relationship Specialty Start Date End Date Toyin Pollard FNP [address] [place] [address] PCP - General Family Medicine 01/11/21 Satish Brennan MD [address] [place] [address] Endocrinology 02/22/24 Jacob Morrow 5 [place] [address] Pulmonary Disease 02/22/24 Nicolasa Escobar MD [address] [place] [address] Dr [facility] 140 [place] [address] Neurology 02/22/24 Shen Davis MD [address] [place] [address] Nephrology 02/22/24 Ellyn Connolly Email DeveloperGrinder And Honer Operator Automatic 08/17/23 [facility] 01/11/24 01/21/24 [facility] 01/11/24 documented as of this encounter
--- OUTSIDE RECORDS SUMMARY | 2024-07-15 09:51 | XMS_ITS | Encounter Summary ---
Author Organization [employer] Address 75 [facility] 7t [place] [address] Care Team Providers Care Mgmt Specialist Name Role Phone Toyin Pollard Primary Care Provider [phone] Satish Brennan MD Unavailable Jacob Morrow Unavailable [phone] Nicolasa Escobar MD Unavailable Shen Davis MD Unavailable [phone] Reason for Visit * Reason Onset Date Comments Durable Medical Equipment 02/19/2024 Encounter Details Date Type Department Care Team (Late st Contact Info) Description 02/19/2024 Telephone [facility] MEDICINE 230 [place], [place] [phone] Toyin Pollard FNP 505 [place], [place] [phone] Durable Medical Equipment Social History Tobacco Use [...] Ivory LPN - 02/20/2024 10:21 AM EST Occupational Therapy Director did see Rx was sent to [phone] pt has current RX no need for updates, credit underwriter Parisa at number below. However no answer and mail box full . Pt has appt tomorrow pt should discussthis need sending to PCP as FYI . Tc from [facility] ([employer]) requesting a new order for pt to be sent over for Poise sanitary pads , adult diapers oversized . Any questions please get in contact with [facility] at the callback number above. Callback [phone] * Telephone Encounter - Christina Paul - 02/19/2024 3:28 PM EST Tc from [facility] ([employer]) requesting a new order for pt to be sent over for Poise sanitary pads , adult diapers oversized . Any questions please get in contact with [facility] at the callback number above. Callback [phone] documented in this encounter Plan of Treatment Upcoming Encounters Date Type Department Care Team ([facility] st Contact Info) Description 08/05/2024 10:30 AM EDT Office Visit [facility] MED & PEDS 505 [place] [address] Toyin Pollard FNP 505 [place] [address] 09/23/2024 11:00 AM EDT Telemedicine [facility] PEDS 505 [place] [address] Margret Hector, MINA 505 [place], [place] documented as of this encounter [...] documented as of this encounter Care Teams Mgmt Specialist Relationship Specialty Start Date End Date Toyin Pollard FNP [address] [place] [address] PCP - General Family Medicine 01/11/21 Satish Brennan MD [address] [place] [address] Endocrinology 02/22/24 Jacob Morrow 5 [place] [address] Pulmonary Disease 02/22/24 Nicolasa Escobar MD [address] [place] [address] [place] [address] Neurology 02/22/24 Shen Davis MD [address] [place] [address] Nephrology 02/22/24 Ellyn Connolly Credentials SpecialistManager Motor 08/17/23 [facility] 01/11/24 documented as of this encounter
--- OUTSIDE RECORDS SUMMARY | 2024-07-15 09:51 | XMS_ITS | Encounter Summary ---
Author Organization [employer] Address 75 [facility] 7t [place] [address] Care Team Providers Care Chemical Project Engineer Name Role Phone Toyin Pollard Primary Care Provider [phone] Satish Brennan MD Unavailable [phone] Jacob Morrow Unavailable [phone] Nicolasa Escobar MD Unavailable Shen Davis MD Unavailable [phone] Encounter Details Date Type Department Care Team (Late st Contact Info) Description 03/29/2023 Orders Only [facility] PEDS [address] [place], [place] [phone] Maritza Daniel FNP [address] [place], [place] [phone] Social History Tobacco Use Types Packs/Day Years [...] [facility] MED [facility] PEDS 505 [place] [address] Toyin Pollard FNP 505 [place] [address] 09/23/2024 11:00 AM EDT Telemedicine [facility] MED & PEDS 505 [place] [address] Margret Hector, RN 505 [place] [address] documented as of this encounter Goals Goal [...] as of this encounter Care Teams Chemical Project Engineer Relationship Specialty Start Date End Date Toyin Pollard FNP [address] [place] [address] PCP - General Family Medicine 01/11/21 Satish Brennan MD [address] [place] [address] Endocrinology 02/22/[address] [place] [address] Pulmonary Disease 02/22/24 Nicolasa Escobar MD [address] [place] [address] Dr [facility] 140 [place] [address] Neurology 02/22/24 Shen Davis MD [address] [place] [address] Nephrology 02/22/24 Ellyn Connolly Key FilerPrecision Lens Grinder 08/17/23 [facility] 01/11/24 01/21/24 [facility] 01/11/24 documented as of this encounter
--- OUTSIDE RECORDS SUMMARY | 2024-07-15 09:51 | XMS_ITS | Encounter Summary ---
Author Organization [employer] Address 75 [facility] 7t [place] [address] Care Team Providers Care Rn Acute Name Role Phone Toyni Pollard Primary Care Provider [phone] Satish Brennan MD Unavailable Jacob Morrow Unavailable [phone] Nicolasa Escobar MD Unavailable Shen Davis MD Unavailable [phone] Reason for Visit * Reason Onset Date Comments Forms/questionnaires 03/03/2022 Encounter Details Date Type Department Care Team (Late st Contact Info) Description 03/03/2022 Telephone [facility] MEDICINE 230 [place] [address] Toyin Pollard FNP 505 [place], [place] [phone] Forms/questionnaires Social History Tobacco Use Types Packs/Day [...] 12:07 PM EST Tc from Naye from [facility] requesting status on 485 form . States they have faxed several times since November and have not yet received back . Informs needs by 03/15/22 if not pt will be discharged from services. Best contact number [phone]. There fax number is [phone] . documented in this encounter Plan of Treatment Upcoming Encounters Date Type Department Care Team (Late st Contact Info) Description 08/05/2024 10:30 AM EDT Office Visit [facility] MED & PEDS 505 [place] [address] Toyin Pollard FNP 505 [place] [address] 09/23/2024 11:00 AM EDT Telemedicine [facility] MED & PEDS 505 [place] [address] Margret Hector RN 505 [place] [address] documented as of this encounter Visit Diagnoses Not on filedocumented in this encounter Care Teams Rn Acute Relationship Specialty Start Date End Date Toyin Pollard FNP [address] [place] [address] PCP - General Family Medicine 01/11/21 Satish Brennan MD [address] [place] [address] Endocrinology 02/22/24 Jacob Morrow 5 [place] [address] Pulmonary Disease 02/22/24 Nicolasa Escobar MD [address] [place] [address] [place] [address] Neurology 02/22/24 Shen Davis MD [address] [facility] [address] [place] [address] Nephrology 02/22/24 Ellyn Connolly SlabberPaper And Prints Restorer 08/17/23 [facility] 01/11/24 01/21/24 [facility] 01/11/24 documented as of this encounter
--- OUTSIDE RECORDS SUMMARY | 2024-07-15 09:51 | XMS_ITS | Encounter Summary ---
Author Organization [employer] Address 75 [facility] 7t [place] [address] Care Team Providers Care Acoustical Tile Carpenters Supervisor Name Role Phone Toyin Pollard LOUIE Primary Care Provider Satish Brennan MD Unavailable [phone] Jacob Morrow Unavailable [phone] Nicolasa Escobar MD Unavailable Shen Davis MD Unavailable [phone] Encounter Details Date Type Department Care Team (Late st Contact Info) Description 07/09/2024 Orders Only [facility] MED & PEDS 505 [place], [place] [phone] Francisco Javier Fields MD 505 [place], [place] [phone] Stress incontinence of urine (Primary Dx) Social History Tobacco Use Types [...] the past 12 months, has t he [employer], gas, oil or water company threatened to [...] [facility] MED & PEDS 505 [place] [address] Toyin Pollard FNP 505 [place] [address] 09/23/2024 11:00 AM EDT Telemedicine [facility] MED & PEDS 505 [place] [address] Margret Hector, MINA 505 [place] [address] Scheduled Orders Name Type Priority Associated Diagnoses Orde r Schedule Urinalysis, Complete, with Reflex to Culture Lab Routine Stress incontinence of urine Expected: 07/09/2024 (Approximate), Expires: 07/09/2025 documented as of this encounter Goals Goal Patient Goal Type Associated Problems Recent Progress Patient-Stated? Author Hemoglobin A1c < 7 Result Component 6.4(08/02/2023 4:30 PM EDT) No Michelle Alegria, PharmD documented as of this encounter Visit Diagnoses Diagnosis Stress incontinence of urine- Primary documented in this encounter Additional Health Concerns Assessment Noted Time PHQ-9 Depression Total Score: 13 024 4:37 PM EDT documented as of this encounter Care Teams Acoustical Tile Carpenters Supervisor Relationship Specialty Start Date End Date Toyin Pollard FNP 230 [place] [address] PCP - General Family Medicine 01/11/21 Satish Brennan MD [address] [place] [address] Endocrinology 02/22/24 Jacob Morrow 5 [place] [address] Pulmonary Disease 02/22/24 Nicolasa Escobar MD [address] [place] [address] Dr [address]on [address] [place] [address] Neurology 02/22/24 Shen Davis MD [address] [place] [address] Nephrology 02/22/24 Ellyn Connolly Farm MechanicBoiler Riveter 08/17/23 [facility] 01/11/24 documented as of this encounter
--- OUTSIDE RECORDS SUMMARY | 2024-07-15 09:51 | XMS_ITS | Encounter Summary ---
Author Organization [employer] Address 75 [facility] 7t [place] [address] Care Team Providers Care Manager Occupational Name Role Phone Toyin Pollard Primary Care Provider [phone] Satish Brennan MD Unavailable Jacob Morrow Unavailable [phone] Nicolasa Escobar MD Unavailable [phone] Shen Davis MD Unavailable [phone] Reason for Visit * Reason Onset Date Comments PT1 01/30/2023 Encounter Details Date Type Department Care Team (Late st Contact Info) Description 01/30/2023 Telephone [facility] MEDICINE 230 [place], [place] [phone] Toyin Pollard FNP 505 [place], [place] [phone] PT1 Social History Tobacco Use Types Packs/Day [...] Date: 03/27/2022 Time: 8:30 Visits: 5 Address: [address] [place] [address] Facility: [facility] Wheel Chair: Scooter and O2 Spectrographer Needed: Yes 1 documented in this encounter Plan of Treatment Upcoming Encounters Date Type Department Care Team ([facility] st Contact Info) Description 08/05/2024 10:30 AM EDT Office Visit [facility] MED & PEDS 505 [place] [address] Toyin Pollard FNP 505 [place] [address] 09/23/2024 11:00 AM EDT Telemedicine [facility] MED & PEDS 505 [place] [address] Margret Hector, RN [address] [place] [address] documented as of this encounter Goals Goal [...] documented as of this encounter Care Teams Manager Occupational Relationship Specialty Start Date End Date Toyin Pollard FNP [address] [place] [address] PCP - General Family Medicine 01/11/21 Satish Brennan MD [address] [place] [address] Endocrinology 02/22/24 Jacob Morrow 5 [place] [address] Pulmonary Disease 02/22/24 Nicolasa Escobar MD [address] [place] [address] Dr [facility] 140 [place] [address] Neurology 02/22/24 Shen Davis MD [address] [place] [address] Nephrology 02/22/24 Ellyn Connolly Public Health ProfessorSenior Research Analyst 08/17/23 [facility] 01/11/24 01/21/24 [facility] 01/11/24 documented as of this encounter
--- OUTSIDE RECORDS SUMMARY | 2024-07-15 09:51 | XMS_ITS | Encounter Summary ---
Author Organization [employer] Address 75 [facility] 7t [place] [address] Care Team Providers Care Cotton Ball Machine Tender Name Role Phone Toyin Pollard Primary Care Provider [phone] Satish Brennan MD Unavailable Jacob Morrow Unavailable [phone] Nicolasa Escobar MD Unavailable Shen Davis MD Unavailable [phone] Reason for Visit * Reason Onset Date Comments PT1 08/19/2022 Encounter Details Date Type Department Care Team (Late st Contact Info) Description 08/19/2022 Telephone [facility] MEDICINE 230 [place] [address] Toyin Pollard FNP 505 [place], [place] [phone] PT1 Social History Tobacco Use Types Packs/Day [...] has correct home address but transportation doesn't. Gas Generator Operator is resubmitting PT1. PT1 Date: Time: address:[address] [facility] specialty:PCP # visits: triage registered nurse: yes Wheelchair: yes PT1 Date: Time: address: [address] [facility] specialty: Culinary Chef # visits: triage registered nurse:yes Wheelchair:yes PT1 Date: Time: address: [address] [facility] specialty: Lead Material Handler/ Diabetes # visits: triage registered nurse:yes Wheelchair:yes PT1 Date: Time: address:[address] [facility] specialty: Speech and hearing # visits: triage registered nurse:yes Wheelchair:yes documented in this encounter Plan of Treatment Upcoming Encounters Date Type Department Care Team (Late st Contact Info) Description 08/05/2024 10:30 AM EDT Office Visit [facility] MED & PEDS 505 [place] [address] Toyin Pollard FNP 505 [place] [address] 09/23/2024 11:00 AM EDT Telemedicine [facility] MED & PEDS 505 [place] [address] Margret Hector, RN 505 [place] [address] documented as of this encounter Visit Diagnoses Not on filedocumented in this encounter Care Teams Cotton Ball Machine Tender Relationship Specialty Start Date End Date Toyin Pollard FNP 230 [place] [address] PCP - General Family Medicine 01/11/21 Satish Brennan MD [address] [address] Endocrinology 02/22/24 Jacob Morrow [facility] [place] [address] Pulmonary Disease 02/22/24 Nicolasa Escobar MD [address] [place] [address] [address] Neurology 02/22/24 Shen Davis MD [address] [place] [address] Nephrology 02/22/24 Ellyn Connolly C D StripperUnhairer 08/17/23 [facility] 01/11/24 01/21/24 [facility] 01/11/24 documented as of this encounter
--- OUTSIDE RECORDS SUMMARY | 2024-07-15 09:51 | XMS_ITS | Encounter Summary ---
Author Organization [employer] Address 75 [facility] 7t [place] [address] Care Team Providers Care Mining Plant Operator Name Role Phone Toyin Pollard Primary Care Provider Satish Brennan MD Unavailable Jacob Morrow Unavailable [phone] Nicolasa Escobar MD Unavailable [phone] Shen Davis MD Unavailable [phone] Reason for Visit * Reason Onset Date Comments FYI 01/25/2024 Encounter Details Date Type Department Care Team (Late st Contact Info) Description 01/25/2024 Telephone [facility] MEDICINE 230 [place], [place] [phone] Toyin Pollard FNP 505 [place], [place] [phone] FYI Social History Tobacco Use Types Packs/Day [...] - 01/25/2024 1:45 PM EST TC from [facility] with [facility] wanted to report pt Discharged from [facility] on 01/22/24 . Had a Cast on right ankle and was removed due to numbness. Pt now has a boot on . documented in this encounter Plan of Treatment Upcoming Encounters Date Type Department Care Team (Late st Contact Info) Description 08/05/2024 10:30 AM EDT Office Visit [facility] MED & PEDS 505 [place] [address] Toyin Pollard FNP 505 [place] [address] 09/23/2024 11:00 AM EDT Telemedicine [facility] MED & PEDS 505 [place] [address] Margret Hector RN 505 [place] [address] documented as of this encounter Goals Goal [...] documented as of this encounter Care Teams Mining Plant Operator Relationship Specialty Start Date End Date Toyin Pollard FNP 230 [place] [address] PCP - General Family Medicine 01/11/21 Satish Brennan MD [address] [place] [address] Endocrinology 02/22/24 Jacob Morrow 5 [place] [address] Pulmonary Disease 02/22/24 Nicolasa Escobar MD [address] [place] [address] Dr [address]on 140 [place] [address] Neurology 02/22/24 Shen Davis MD [address] [place] [address] Nephrology 02/22/24 Ellyn Connolly Spark TesterValve Repairer 08/17/23 [facility] 01/11/24 documented as of this encounter
--- OUTSIDE RECORDS SUMMARY | 2024-07-15 09:51 | XMS_ITS | Encounter Summary ---
Author Organization [employer] Address 75 [facility] 7t [place] [address] Care Team Providers Care Director Information Security Name Role Phone Toyin Pollard Primary Care Provider Satish Brennan MD Unavailable [phone] Jacob Morrow Unavailable [phone] Nicolasa Escobar MD Unavailable [phone] Shen Davis MD Unavailable [phone] Encounter Details Date Type Department Care Team (Late st Contact Info) Description 04/26/2022 Abstract [facility] MEDICINE [address] [place] [address] Toyin Pollard FNP 505 [place] [address] Social History Tobacco Use Types Packs/Day Years [...] Description 08/05/2024 10:30 AM EDT Office Visit [facility] MED & PEDS 505 [place], [place] [phone] Toyin Pollard FNP 505 [place], [place] [phone] 09/23/2024 11:00 AM EDT Telemedicine [facility] MED & PEDS 505 [place] [address] Margret Hector, RN [address] [place] [address] documented as of this encounter Visit Diagnoses Not on filedocumented in this encounter Care Teams Director Information Security Relationship Specialty Start Date End Date Toyin Pollard FNP [address] [place] [address] PCP - General Family Medicine 01/11/21 Satish Brennan MD [address] [place] [address] Endocrinology 02/22/24 Jacob Morrow 5 [place] [address] Pulmonary Disease 02/22/24 Nicolasa Escobar MD [address] [place] [address] Dr [address] 140 [place] [address] Neurology 02/22/24 Shen Davis MD [address] [place] [address] Nephrology 02/22/24 Ellyn Connolly Waterworks SupervisorQuarter Backer 08/17/23 [facility] 01/11/24 01/21/24 [facility] 01/11/24 documented as of this encounter
--- OUTSIDE RECORDS SUMMARY | 2024-07-15 09:51 | XMS_ITS | Encounter Summary ---
Author Organization [employer] Address [address] [place] [address] 7t [place] [address] Care Team Providers Care Lubrication Worker Name Role Phone Toyin Pollard Primary Care Provider Satish Brennan MD Unavailable Jacob Morrow Unavailable [phone] Nicolasa Escobar MD Unavailable Shen Davis MD Unavailable [phone] Encounter Details Date Type Department Care Team (Late st Contact Info) Description 09/12/2022 Orders Only [facility] MEDICINE 230 [place] [address] Patrica Grimaldo LPN Social History Tobacco Use [...] Description 08/05/2024 10:30 AM EDT Office Visit [facility] MED & PEDS 505 [place] [address] Toyin Pollard FNP 505 [place] [address] 09/23/2024 11:00 AM EDT Telemedicine [facility] MED & PEDS [address] [place] [address] Margret Hector, RN [address] [place] [address] documented as of this encounter Visit Diagnoses Not on filedocumented in this encounter Care Teams Lubrication Worker Relationship Specialty Start Date End Date Toyin Pollard FNP 230 [place] [address] PCP - General Family Medicine 01/11/21 Satish Brennan MD [address] [place] [address] Endocrinology 02/22/24 Jacob Morrow 5 [place] [address] Pulmonary Disease 02/22/24 Nicolasa Escobar MD [address] [place] [address] Dr [facility] 140 [place] [address] Neurology 02/22/24 Shen Davis MD [address] [place] [address] Nephrology 02/22/24 Ellyn Connolly Assistant Dean Of StudentsHealthcare Representative 08/17/23 [facility] 01/11/24 01/21/24 [facility] 01/11/24 documented as of this encounter
--- OUTSIDE RECORDS SUMMARY | 2024-07-15 09:51 | XMS_ITS | Encounter Summary ---
Author Organization [employer] Address 75 [facility] 7t [place] [address] Care Team Providers Care Mat Weaver Name Role Phone Toyin Pollard Primary Care Provider [phone] Satish Brennan MD Unavailable Jacob Morrow Unavailable [phone] Nicolasa Escobar MD Unavailable Shen Davis MD Unavailable [phone] Reason for Visit * Reason Comments Med Refill Encounter Details Date Type Department Care Team ([facility] st Contact Info) Description 07/06/2024 Refill [facility] MED & PEDS 505 [place], [place] [phone] Toyin Pollard FNP 505 [place], [place] [phone] Migraine without status migrainosus, not intractable, unspecified migraine type Social History Tobacco Use Types Packs/Day Years [...] 10:30 AM EDT Office Visit [facility] MED & PEDS 505 [place] [address] Toyin Pollard FNP 505 [place] [address] 09/23/2024 11:00 AM EDT Telemedicine [facility] MED & PEDS 505 [place] [address] Margret Hector, RN 505 [place] [address] documented as of this encounter Goals Goal Patient Goal Type Associated Problems Recent Progress Patient-Stated? Author Hemoglobin A1c < 7 Result Component 6.4(08/02/2023 4:30 PM EDT) No Michelle Alegria, PharmD documented as of this encounter Visit Diagnoses Diagnosis Migraine without status migrainosus, not intractable, unspecified migraine type documented in this encounter Additional Health Concerns Assessment Noted Time PHQ-9 Depression Total Score: 13 05/15/2 024 4:37 PM EDT documented as of this encounter Care Teams Mat Weaver Relationship Specialty Start Date End Date Toyin Pollard FNP 230 [place] [address] PCP - General Family Medicine 01/11/21 Satish Brennan MD [address] [place] [address] Endocrinology 02/22/24 Jacob Morrow 5 [place] [address] Pulmonary Disease 02/22/24 Nicolasa Escobar MD [address] [place] [address] Neurology 02/22/24 Shen Davis MD [address] [place] [address] Nephrology 02/22/24 Ellyn Connolly Manager CategoryCredit Card Analyst 08/17/23 [facility] 01/11/24 documented as of this encounter
--- OUTSIDE RECORDS SUMMARY | 2024-07-15 09:51 | XMS_ITS | Encounter Summary ---
Author Organization [employer] Address 75 [facility] 7t [place] [address] Care Team Providers Care Pattern Wheel Maker Name Role Phone Toyin Pollard Primary Care Provider [phone] Satish Brennan MD Unavailable Jacob Morrow Unavailable [phone] Nicolasa Escobar MD Unavailable [phone] Shen Davis MD Unavailable [phone] Reason for Visit * Reason Comments Med Refill Encounter Details Date Type Department Care Team ([facility] st Contact Info) Description 01/24/2023 Refill [facility] MED & PEDS 505 [place], [place] [phone] Toyin Pollard FNP 505 [place], [place] [phone] Pain Social History Tobacco Use Types Packs/Day [...] [facility] MED & PEDS 505 [place] [address] Toyin Pollard FNP 505 [place] [address] 09/23/2024 11:00 AM EDT Telemedicine [facility] MED & PEDS 505 [place] [address] Margret Hector, MINA 505 [place] [address] documented as of this encounter Goals Goal [...] documented as of this encounter Care Teams Pattern Wheel Maker Relationship Specialty Start Date End Date Toyin Pollard FNP [address] [place] [address] PCP - General Family Medicine 01/11/21 Satish Brennan MD [address] [place] [address] Endocrinology 02/22/[address] [address] Pulmonary Disease 02/22/24 Nicolasa Escobar MD [address] [place] [address] [address] Neurology 02/22/24 Shen Davis MD [address] [place] [address] Nephrology 02/22/24 Ellyn Connolly Rn Pediatric IcuSprayer Insecticide 08/17/23 [facility] 01/11/24 01/21/24 [facility] 01/11/24 documented as of this encounter
--- OUTSIDE RECORDS SUMMARY | 2024-07-15 09:51 | XMS_ITS | Encounter Summary ---
Author Organization [employer] Address 75 [facility] 7t [place] [address] Care Team Providers Care Nuclear Fuel Processing Technician Name Role Phone Toyin Pollard Primary Care Provider Satish Brennan MD Unavailable Jacob Morrow Unavailable [phone] Nicolasa Escobar MD Unavailable Shen Davis MD Unavailable [phone] Encounter Details Date Type Department Care Team (Late st Contact Info) Description 03/15/2022 Orders Only [facility] MED & PEDS 505 [place] [address] Ellyn Chery LPN Social History Tobacco Use [...] [facility] 505 [place] [address] Toyin Pollard FNP 505 [place] [address] 09/23/2024 11:00 AM EDT Telemedicine [facility] CHC MED & PEDS [address] [place] [address] Margret Hector, RN [address] [place] [address] documented as of this encounter Visit Diagnoses Not on filedocumented in this encounter Care Teams Nuclear Fuel Processing Technician Relationship Specialty Start Date End Date Toyin Pollard FNP 230 [place] [address] PCP - General Family Medicine 01/11/21 Satish Brennan MD [address] [place] [address] Endocrinology 02/22/24 Jacob Morrow 5 [place] [address] Pulmonary Disease 02/22/24 Nicolasa Escobar MD [address] [place] [address] Dr [facility] 140 [place] [address] Neurology 02/22/24 Shen Davis MD [address] [place] [address] Nephrology 02/22/24 Ellyn Connolly Celery StripperAddiction Psychiatrist 08/17/23 [facility] 01/11/24 01/21/24 [facility] 01/11/24 documented as of this encounter
--- OUTSIDE RECORDS SUMMARY | 2024-07-15 09:51 | XMS_ITS | Encounter Summary ---
Author Organization [employer] Address [address] [facility] 7t [place] [address] Care Team Providers Care Student Services Director Name Role Phone Toyin Pollard Primary Care Provider Satish Brennan MD Unavailable Jacob Morrow Unavailable [phone] Nicolasa Escobar MD Unavailable Shen Davis MD Unavailable [phone] Reason for Visit * Reason Onset Date Comments ER Follow-up 07/05/2024 Encounter Details Date Type Department Care Team ([facility] Contact Info) Description 07/05/2024 Telephone [facility] CH[facility] MED & PEDS 505 [place], [place] [phone] Toyin Pollard FNP 505 [place] [address] ER Follow-up Social History Tobacco Use Types [...] encounter Miscellaneous Notes * Telephone Encounter - Anjali Murphy RN - 07/10/2024 11:03 AM EDT VNA nurse called and requested 2 urine kits and 2 specimen containers for urine collection for patient. Instructed NA nurse to stop at director of front office to obtain specimen kits. * Telephone Encounter - Kayla Frias RN - 07/09/2024 12:07 PM EDT TC to pt. Pt is states the she went to the ED and discharged with UTI and abx. Pt finished abx today and still complaining of UTI symptoms. Pt thinks that she can provide a sample if the VNA nurse helps her to the bedside commode. Pt is otherwise bed bound without help. Pt also has labs ordered butwould not fit in the room to get her labs drawn. Pt needs the person going to her home to hit the number [phone]# so she can let them in. RN called a [facility] service and could not get ahold of a nurse. Call x2 from medical receptionist medical assistant, message left. TC to [facility] lab to get a home draw for pt labs. TC back to pt to let her know that [facility] will be there Monday to draw her labs and we are trying to talk toher JOSEPH about her urine sample. RN explained S&S for pt to go to the ED. Pt verbalized understanding and agreement with the plan of care. Amanda JOSEPH nurse called us back and states that she is unsure if they provide that service and that she will talk to the clinical team and call us back. LISSETH sent to Dr. Fields and he ordered urine sample for pt. * Telephone Encounter - Silva Patrick - 07/05/2024 12:13 PM EDT Tc from [facility] calling to report ED visit on : Date: 07/02/24 Hospital: [facility] Seen for: Low salt level Symptomatic No Contact pt at [phone] documented in this encounter Plan of Treatment Upcoming Encounters Date Type Department Care Team (Late st Contact Info) Description 08/05/2024 10:30 AM EDT Office Visit [facility] MED & PEDS 505 [place] [address] Toyin Pollard FNP 505 [place] [address] 09/23/2024 11:00 AM EDT Telemedicine [facility] MED & PEDS 505 [place] [address] Margret Hector, MINA 505 [place] [address] documented as of this encounter Goals Goal [...] documented as of this encounter Care Teams Student Services Director Relationship Specialty Start Date End Date Toyin Pollard FNP 230 [place] [address] PCP - General Family Medicine 01/11/21 Satish Brennan MD [address] [place] [address] Endocrinology 02/22/24 Jacob Morrow 5 [place] [address] Pulmonary Disease 02/22/24 Nicolasa Escobar MD [address] [place] [address] Dr [facility] 140 [place] [address] Neurology 02/22/24 Shen Davis MD [address] [place] [address] Nephrology 02/22/24 Ellyn Connolly Alliance ConsultantHelp Desk Support 08/17/23 [facility] 01/11/24 documented as of this encounter
--- OUTSIDE RECORDS SUMMARY | 2024-07-15 09:51 | XMS_ITS | Encounter Summary ---
Author Organization [employer] Address [address] [facility] 7t [place] [address] Care Team Providers Care Marble And Granite Polisher Name Role Phone Toyin Pollard Primary Care Provider [phone] Satish Brennan MD Unavailable Jacob Morrow Unavailable [phone] Nicolasa Escobar MD Unavailable Shen Davis MD Unavailable [phone] Reason for Visit * Reason Comments Med Refill Encounter Details Date Type Department Care Team (Late st Contact Info) Description 04/12/2024 Refill [facility] MEDICINE 230 [place] [address] Toyin Pollard FNP 505 [place], [place] [phone] Long-term current use of opiate analgesic (Primary [...] 04/12/2024 5:16 PM EST Please schedule for ROBOTICS APPLICATION ENGINEER, thanks! documented in this encounter Plan of Treatment Upcoming Encounters Date Type Department Care Team (Late st Contact Info) Description 08/05/2024 10:30 AM EDT Office Visit [facility] MED & PEDS 505 [place] [address] Toyin Pollard FNP 505 [place] [address] 09/23/2024 11:00 AM EDT Telemedicine [facility] MED & PEDS 505 [place] [address] Margret Hector RN 505 [place] [address] documented as of this encounter Goals Goal [...] documented as of this encounter Care Teams Marble And Granite Polisher Relationship Specialty Start Date End Date Toyin Pollard FNP 230 [place] [address] PCP - General Family Medicine 01/11/21 Satish Brennan MD [address] [facility] 104 [place] [address] Endocrinology 02/22/24 Jacob Morrow 5 [place] [address] Pulmonary Disease 02/22/24 Nicolasa Escobar MD [address] [place] [address] Dr [facility] 140 [place] [address] Neurology 02/22/24 Shen Davis MD [facility] 302 [place] [address] Nephrology 02/22/24 Ellyn Connolly Kaiako Kura TuaruaService Delivery Supervisor 08/17/23 [facility] 01/11/24 documented as of this encounter
--- OUTSIDE RECORDS SUMMARY | 2024-07-15 09:51 | XMS_ITS | Encounter Summary ---
Author Organization [employer] Address [address] [facility] 7t [place] [address] Care Team Providers Care Sawmill Or Timber Yard Worker Name Role Phone JuddToyin barry LOUIE Primary Care Provider Satish Brennan MD Unavailable [phone] Jacob Morrow Unavailable [phone] Nicolasa Escobar MD Unavailable Shen Davis MD Unavailable [phone] Encounter Details Date Type Department Care Team (Late st Contact Info) Description 07/20/2023 Orders Only [facility] MEDICINE [address] [place], [place] [phone] Agustina Toribio MD 230 [place], [place] [phone] Hyperkalemia (Primary Dx) Social History Tobacco Use [...] [facility] 505 [place] [address] Toyin Pollard FNP 505 [place] [address] 09/23/2024 11:00 AM EDT Telemedicine [facility] MED & PEDS 505 [place] [address] Margret Hector, RN 505 [place] [address] Scheduled Orders Name Type Priority Associated Diagnoses [...] documented as of this encounter Care Teams Sawmill Or Timber Yard Worker Relationship Specialty Start Date End Date Toyin Pollard FNP 230 [place] [address] PCP - General Family Medicine 01/11/21 Satish Brennan MD [address] [place] [address] Endocrinology 02/22/24 Jacob Morrow 5 [place] [address] Pulmonary Disease 02/22/24 Nicolasa Escobar MD [address] [place] [address] [place] [address] Neurology 02/22/24 Shen aDvis MD [address] [place] [address] Nephrology 02/22/24 Ellyn Connolly Radio Program CheckerArmy Senior Officer 08/17/23 [facility] 01/11/24 01/21/24 [facility] 01/11/24 documented as of this encounter
--- OUTSIDE RECORDS SUMMARY | 2024-07-15 09:51 | XMS_ITS | Encounter Summary ---
Author Organization [employer] Address [address] [facility] 7t [place] [address] Care Team Providers Care Drug Safety Data Management Specialist Name Role Phone Toyin Pollard LOUIE Primary Care Provider [phone] Satish Brennan MD Unavailable [phone] Jacob Morrow Unavailable [phone] Nicolasa Escobar MD Unavailable Shen Davis MD Unavailable [phone] Encounter Details Date Type Department Care Team ([facility] Contact Info) Description 07/21/2022 Orders Only [facility] MED & PEDS 505 [place] [address] Ellyn Chery LPN Social History Tobacco Use [...] Encounters Date Type Department Care Team ([facility] Contact Info) Description 08/05/2024 10:30 AM EDT Office Visit [facility] MED & PEDS 505 [place] [address] Toyin Pollard FNP 505 [place] [address] 09/23/2024 11:00 AM EDT Telemedicine [facility] MED & PEDS [address] [place] [address] Margret Hector, RN [address] [place] [address] documented as of this encounter Visit Diagnoses Not on filedocumented in this encounter Care Teams Drug Safety Data Management Specialist Relationship Specialty Start Date End Date Toyin Pollard FNP [address] [place] [address] PCP - General Family Medicine 01/11/21 Satish Brennan MD [address] [place] [address] Endocrinology 02/22/24 Jacob Morrow 5 [place] [address] Pulmonary Disease 02/22/24 Nicolasa Escobar MD [address] [place] [address] 140 [place] [address] Neurology 02/22/24 Shen Davis MD [address] [place] [address] Nephrology 02/22/24 Ellyn Connolly Tar Heater OperatorExtract Mixer 08/17/23 [facility] 01/11/24 01/21/24 [facility] 01/11/24 documented as of this encounter
--- OUTSIDE RECORDS SUMMARY | 2024-07-15 09:51 | XMS_ITS | Encounter Summary ---
Author Organization [employer] Address [address] [facility] 7t [place] [address] Care Team Providers Care Sports Medicine Trainer Name Role Phone Toyin Pollard Primary Care Provider Satish Brennan MD Unavailable Jacob Morrow Unavailable [phone] Nicolasa Escobar MD Unavailable Shen Davis MD Unavailable [phone] Encounter Details Date Type Department Care Team (Late st Contact Info) Description 04/26/2022 Abstract [facility] MEDICINE [address] [place] [address] Toyin Pollard FNP 505 [place] [address] Social History Tobacco Use Types Packs/Day Years [...] Description 08/05/2024 10:30 AM EDT Office Visit [facility] MED [facility] PEDS 505 [place], [place] [phone] Toyin Pollard FNP 505 [place], [place] [phone] 09/23/2024 11:00 AM EDT Telemedicine [facility] MED & PEDS 505 [place] [address] Margret Hector, RN [address] [place] [address] documented as of this encounter Visit Diagnoses Not on filedocumented in this encounter Care Teams Sports Medicine Trainer Relationship Specialty Start Date End Date Toyin Pollard FNP [address] [place] [address] PCP - General Family Medicine 01/11/21 Satish Brennan MD [address] [place] [address] Endocrinology 02/22/24 Jacob Morrow 5 [place] [address] Pulmonary Disease 02/22/24 Nicolasa Escobar MD [address] [place] [address] Dr Kameron 140 [place] [address] Neurology 02/22/24 Shen Davis MD [address] [place] [address] Nephrology 02/22/24 Ellyn Connolly Olive Brine TesterMixer Operator Raw Salt 08/17/23 [facility] 01/11/24 01/21/24 [facility] 01/11/24 documented as of this encounter
--- OUTSIDE RECORDS SUMMARY | 2024-07-15 09:51 | XMS_ITS | Encounter Summary ---
Author Organization [employer] Address [address] [place] [address] 7t [place] [address] Care Team Providers Care Category Development Analyst Name Role Phone Toyin Pollard Primary Care Provider Satish Brennan MD Unavailable [phone] Jacob Morrow Unavailable [phone] Nicolasa Escobar MD Unavailable Shen Davis MD Unavailable [phone] Encounter Details Date Type Department Care Team (Late st Contact Info) Description 04/20/2022 Orders Only [facility] MEDICINE 230 [place] [address] Patrica Grimaldo LPN Social History Tobacco Use [...] [facility] MED & PEDS 505 [place] [address] Toyin Pollard FNP 505 [place] [address] 09/23/2024 11:00 AM EDT Telemedicine [facility] MED & PEDS [address] [place] [address] Margret Hector, RN [address] [place] [address] documented as of this encounter Visit Diagnoses Not on filedocumented in this encounter Care Teams Category Development Analyst Relationship Specialty Start Date End Date Toyin Pollard FNP 230 [place] [address] PCP - General Family Medicine 01/11/21 Satish Brennan MD [address] [place] [address] Endocrinology 02/22/24 Jacob Morrow 5 [place] [address] Pulmonary Disease 02/22/24 Nicolasa Escobar MD [address] [place] [address] [address] Neurology 02/22/24 Shen Davis MD [address] [place] [address] Nephrology 02/22/24 Ellyn Connolly Polisher Eyeglass FramesRestaurant Front Manager 08/17/23 [facility] 01/11/24 01/21/24 [facility] 01/11/24 documented as of this encounter
--- OUTSIDE RECORDS SUMMARY | 2024-07-15 09:51 | XMS_ITS | Encounter Summary ---
Author Organization [employer] Address [address] [facility] 7t [place] [address] Care Team Providers Care American History Professor Name Role Phone Toyin Pollard Primary Care Provider [phone] Satish Brennan MD Unavailable [phone] Jacob Morrow Unavailable [phone] Nicolasa Escobar MD Unavailable Shen Davis MD Unavailable [phone] Reason for Visit * Reason Onset Date Comments Durable Medical Equipment 05/16/2024 Encounter Details Date Type Department Care Team (Late st Contact Info) Description 05/16/2024 Telephone [facility] MEDICINE 230 [place], [place] [phone] Toyin Pollard FNP 505 [place], [place] [phone] Durable Medical Equipment Social History Tobacco Use [...] [facility] 505 [place] [address] Toyin Pollard FNP 505 [place] [address] 09/23/2024 11:00 AM EDT Telemedicine [facility] & [facility]EDS 505 [place] [address] Margret Hector, MINA 505 [place] [address] documented as of this encounter Goals Goal [...] documented as of this encounter Care Teams American History Professor Relationship Specialty Start Date End Date Toyin Pollard FNP 230 [place] [address] PCP - General Family Medicine 01/11/21 Satish Brennan MD [address] [place] [address] Endocrinology 02/22/24 Jacob Morrow 5 [place] [address] Pulmonary Disease 02/22/24 Nicolasa Escobar MD [address] [place] [address] Dr [facility] 140 [place] [address] Neurology 02/22/24 Shen Davis MD [address] [place] [address] Nephrology 02/22/24 Ellyn Connolly Finishing Lab TechnicianFlume Ride Operator 08/17/23 [facility] 01/11/24 documented as of this encounter
--- OUTSIDE RECORDS SUMMARY | 2024-07-15 09:51 | XMS_ITS | Encounter Summary ---
Author Organization [employer] Address [address] [facility] 7t [place] [address] Care Team Providers Care Relay Assembler Name Role Phone Toyin Pollard Primary Care Provider Satish Brennan MD Unavailable [phone] Jacob Morrow Unavailable [phone] Nicolasa Escobar MD Unavailable Shen Davis MD Unavailable [phone] Reason for Visit * Reason Onset Date Comments Record Request 07/11/2024 Lab Orders 07/11/2024 Encounter Details Date Type Department Care Team ([facility] st Contact Info) Description 07/11/2024 Telephone [facility] MED & PEDS 505 [place], [place] [phone] Toyin Pollard FNP 505 [place], [place] [phone] Record Request; Lab Orders Social History Tobacco Use Types Packs/Day Years [...] encounter Miscellaneous Notes * Telephone Encounter - Kayla Frias RN - 07/12/2024 9:57 AM EDT TC to pt. No answer. Voicemail left with clinic number. * Telephone Encounter - Lynne Flaherty - 07/11/2024 3:03 PM EDT Tc from pt requesting a call back regarding prior message. * Telephone Encounter - Kayla Frias RN - 07/11/2024 11:58 AM EDT TC from a [facility] requesting lab slip for urine. RN explained they did not need the lab slip and they could just bring in the urine and they said he home health nurse was requesting it. RN asked if they had the urine sample and they stated they were not able to get it yet and the nurse was going to the [facility] home tomorrow. RN faxed lab slip for UA. documented in this encounter Plan of Treatment Upcoming Encounters Date Type Department Care Team (Late st Contact Info) Description 08/05/2024 10:30 AM EDT Office Visit [facility] MED & PEDS 505 [place] [address] Toyin Pollard FNP 505 [place] [address] 09/23/2024 11:00 AM EDT Telemedicine [facility] MED & PEDS 505 [place], [place] [phone] Margret Hector RN 505 [place] [address] documented as of this encounter Goals Goal [...] documented as of this encounter Care Teams Relay Assembler Relationship Specialty Start Date End Date Toyin Pollard FNP [address] [place] [address] PCP - General Family Medicine 01/11/21 Satish Brennan MD [address] [place] [address] Endocrinology 02/22/24 aJcob Morrow 5 [place] [address] Pulmonary Disease 02/22/24 Nicolasa Escobar MD [address] [place] [address] [place] [address] Neurology 02/22/24 Shen Davis MD [address] [place] [address] Nephrology 02/22/24 Ellyn Connolly Family Day CarerPacking Tractor Machine Operator 08/17/23 [facility] 01/11/24 documented as of this encounter
--- OUTSIDE RECORDS SUMMARY | 2024-07-15 09:51 | XMS_ITS | Encounter Summary ---
Author Organization [employer] Address [address] [facility] 7t [place] [address] Care Team Providers Care Last Repairer Helper Name Role Phone Toyin Pollard LOUIE Primary Care Provider Satish Brennan MD Unavailable Jacob Morrow Unavailable [phone] Nicolasa Escobar MD Unavailable Shen Davis MD Unavailable [phone] Reason for Visit * Reason Comments Med Refill Encounter Details Date Type Department Care Team (Late st Contact Info) Description 08/21/2023 Refill [facility] MEDICINE 230 [place], [place] [phone] Agustina Toribio MD 230 [place], [place] [phone] Social History Tobacco Use Types Packs/Day Years [...] the past 12 months, has t he [employer] gas, oil or water company threatened to [...] [facility] MED & PEDS 505 [place] [address] Toyin Pollard FNP 505 [place] [address] 09/23/2024 11:00 AM EDT Telemedicine [facility] MED & PEDS 505 [place] [address] Margret Hector, MINA 505 [place] [address] documented as of this encounter Goals Goal [...] documented as of this encounter Care Teams Last Repairer Helper Relationship Specialty Start Date End Date Phalen, Toyin, MACHINE SET UP TECHNICIAN 230 [place] [address] PCP - General Family Medicine 01/11/21 Satish Brennan MD [address] [place] [address] Endocrinology 02/22/24 Jacob Morrow [address] [facility] [place] [address] Pulmonary Disease 02/22/24 Nicolasa Escobar MD [address] [place] [address] [address] Neurology 02/22/24 Shen Davis MD [address] [place] [address] Nephrology 02/22/24 Ellyn Connolly FloorhandMetal Numerical Control Programmer 08/17/23 [facility] 01/11/24 01/21/24 [facility] 01/11/24 documented as of this encounter
--- OUTSIDE RECORDS SUMMARY | 2024-07-15 09:51 | XMS_ITS | Clinical Summary ---
Author Organization [facility] Address [address] [facility] [address] 0 [place] [address] Phone Care Team Providers Care Melter Supervisor Oxygen Furnace Name Role Phone Toyin Pollrad LOUIE Primary Care Provider [phone] Social History Tobacco Use Types Packs/Day Years [...] Influenza Vaccine (Season Ended) 2024 Insurance Medicaid [place] Care Teams Melter Supervisor Oxygen Furnace Relationship Specialty Start Date End Date Toyin Pollard FNP [address] [place] [address] PCP - General 09/13/22
--- OUTSIDE RECORDS SUMMARY | 2024-07-15 09:51 | XMS_ITS | Encounter Summary ---
Author Organization [employer] Address [address] [facility] 7t [place] [address] Care Team Providers Care Wet Wash Assembler Name Role Phone JuddToyin barry LOUIE Primary Care Provider Satish Brennan MD Unavailable [phone] Jacob Morrow Unavailable [phone] Nicolasa Escobar MD Unavailable Shen Davis MD Unavailable [phone] Reason for Visit * Reason Onset Date Comments Appointment 12/27/2022 Encounter Details Date Type Department Care Team ([facility] st Contact Info) Description 12/27/2022 Telephone [facility] 230 [place], [place] [phone] Nestor Varela DDS 230 [place], [place] [phone] Appointment Social History Tobacco Use Types Packs/Day [...] [facility] MED & PEDS 505 [place] [address] Toyin Pollard FNP 505 [place] [address] 09/23/2024 11:00 AM EDT Telemedicine [facility] MED & PEDS 505 [place] [address] Margret Hector RN 505 [place] [address] documented as of this encounter Visit Diagnoses Not on filedocumented in this encounter Additional Health Concerns Assessment Noted Time PHQ-9 Depression Total Score: 0 09/29/19 23 2:03 PM EDT documented as of this encounter Care Teams Wet Wash Assembler Relationship Specialty Start Date End Date Toyin Pollard FNP 230 [place] [address] PCP - General Family Medicine 01/11/21 Satish Brennan MD [address] [place] [address] Endocrinology 02/22/24 Jacob Morrow 5 [place] [address] Pulmonary Disease 02/22/24 Nicolasa Escobar MD [address] [place] [address] [address] Neurology 02/22/24 Shen Davis MD [address] [place] [address] Nephrology 02/22/24 Ellyn Cnonolly Office Service CoordinatorRip Tailer 08/17/23 [facility] 01/11/24 01/21/24 [facility] 01/11/24 documented as of this encounter
[2024-07-15 14:27] LABS: Appearance Urine Turbid; Color Urine Yellow; Glucose Urine UA Negative (Negative); Leukocyte Esterase Urine Large (3+) (Negative); Nitrite Urine Negative (Negative); Specific Gravity - Urine 1.015 (1.005-1.025); UMIC TRIGGER UACC YES; Urine Blood Trace (Negative); Urine Ketones Negative (Negative); Urine Protein 30 (1+) mg/dL (Neg-Trace)
[2024-07-15 15:06] LABS: Bacteria Urine 4+ (None Seen); Hyaline Casts Urine 0-2 /LPF (0-2); Other Crystals Urine Present; UACC Culture Trigger YES; WBC Urine >50 /HPF (0-5)
== END 2024-07-15 09:03 | disposition home or self-care (01) ==
LOC: HO.CHCLNP 09:02
PROVIDERS: Visit Provider Internal Medicine
DX: N39.3 Stress incontinence (female) (male) (principal)
CPT/HCPCS: 81001; 87086; 87088; 87186

== ENCOUNTER 2024-07-16 13:16 | Outpatient (AMB) | payer MEDICAID, SELFPAY ==
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
[2024-07-16 13:18] VITALS: BP 110/64; PULSE 84; O2SAT 98
--- OUTSIDE RECORDS SUMMARY | 2024-07-16 15:21 | XMS_ITS | Encounter Summary ---
Author Organization [employer] Address [address] [place] [address] [address] [place] [address] Care Team Providers Care Fisher Trot Line Name Role Phone Toyin Pollard Primary Care Provider Satish Brennan MD Unavailable [phone] Jacob Morrow Unavailable [phone] Nicolasa Escobar MD Unavailable Shen Davis MD Unavailable [phone] Reason for Visit * Reason Onset Date Comments MRI order 10/03/2022 FYI 10/03/2022 Encounter Details Date Type Department Care Team (Late st Contact Info) Description 10/03/2022 Telephone [facility] MEDICINE [address] [place], [place] [phone] Toyin Pollard FNP [address] [place], [place] [phone] MRI order ; Social History Tobacco Use [...] - 10/03/2022 2:16 PM EDT Tc from [facility] MRI Dept dirt supervisor would like to inform PCP that pt was unable to get MRI done ,due to being a closed scanner , States will be faxing order to [facility] since they have a MRI scanner that is open. Advised will leave message as a FYI if any questions or concerns please contact at [phone] * Telephone Encounter - Azalea Guerrero RN - 10/03/2022 2:05 PM EDT [facility] received updated order. * Telephone Encounter - Clara Simmons - 10/03/2022 9:34 AM EDT Tc from [facility] requesting a new order for MRI abdomin. States MRI has to be MRI abdomin with and without contrast. She is also requesting a call in regards to ct scan done at [facility]. Please contact racheal at [phone] Fax number: [phone] documented in this encounter Plan of Treatment Upcoming Encounters Date Type Department Care Team (Late st Contact Info) Description 08/05/2024 10:30 AM EDT Office Visit [facility] MED & PEDS [address] [place] [address] Toyin Pollard FNP [address] [place] [address] 09/23/2024 11:00 AM EDT Telemedicine [facility] MED & PEDS [address] [place] [address] Margret Hector, MINA [address] [place] [address] documented as of this encounter Visit Diagnoses Not on filedocumented in this encounter Additional Health Concerns Assessment Noted Time PHQ-9 Depression Total Score: 0 09/29/19 23 2:03 PM EDT documented as of this encounter Care Teams Fisher Trot Line Relationship Specialty Start Date End Date Toyin Pollard FNP [address] [place] [address] PCP - General Family Medicine 01/11/21 Satish Brennan MD [address] [place] [address] Endocrinology 02/22/24 Jacob Morrow [address] [place] [address] Pulmonary Disease 02/22/24 Nicolasa Escobar MD [address] [place] [address] [address] [place] [address] Neurology 02/22/24 Shen Davis MD [address] [place] [address] Nephrology 02/22/24 Ellyn Connolly Alarm Security Or Surveillance MonitorRetail Greeting Card Merchandiser 08/17/23 [facility] 01/11/24 01/21/24 [facility] 01/11/24 documented as of this encounter
--- OUTSIDE RECORDS SUMMARY | 2024-07-16 15:21 | XMS_ITS | Encounter Summary ---
Author Organization [facility] [facility] [employer] Address [address] [place] [address] Care Team Providers Care Vacuum Cleaner Operator Name Role Phone Toyin Pollard Primary Care Provider [phone] Satish Brennan MD Unavailable Jacob Morrow Unavailable [phone] Nicolasa Escobar MD Unavailable Shen Davis MD Unavailable [phone] Reason for Visit * Reason Onset Date Comments Durable Medical Equipment 12/19/2023 Encounter Details Date Type Department Care Team (Late st Contact Info) Description 12/19/2023 Telephone [facility] MED & PEDS [address] [place], [place] [phone] Toyin Pollard FNP [address] [place], [place] [phone] Durable Medical Equipment Social History Tobacco Use [...] 12/19/2023 10:27 AM EDT Tc from [facility] calling to see if DME can be which to [facility] due to [facility] not doing delivery. DME Disposable bed pads documented in this encounter Plan of Treatment Upcoming Encounters Date Type Department Care Team (Late st Contact Info) Description 08/05/2024 10:30 AM EDT Office Visit [facility] MED & PEDS [address] [place] [address] Toyin Pollard FNP [address] [place] [address] 09/23/2024 11:00 AM EDT Telemedicine [facility] MED & PEDS [address] [place] [address] Margret Hector, RN [address] [place] [address] documented as of this encounter Goals Goal [...] documented as of this encounter Care Teams Vacuum Cleaner Operator Relationship Specialty Start Date End Date Toyin Pollard FNP [address] [place] [address] PCP - General Family Medicine 01/11/21 Satish Brennan MD [address] [place] [address] Endocrinology 02/22/24 Jacob Morrow [address] [place] [address] Pulmonary Disease 02/22/24 Nicolasa Escobar MD [address] [place] [address] [address] [place] [address] Neurology 02/22/24 Shen Davis MD [address] [place] [address] Nephrology 02/22/24 Ellyn Connolly Pathology CollectorSupervisor Ski Production 08/17/23 [facility] 01/11/24 01/21/24 [facility] 01/11/24 documented as of this encounter
--- OUTSIDE RECORDS SUMMARY | 2024-07-16 15:21 | XMS_ITS | Clinical Summary ---
Author Organization [employer] Address [address] [facility] [address] [place] [address] Care Team Providers Care Career Development Counselor Name Role Phone JuddToyin barry LOUIE Primary Care Provider [phone] Satish Brennan MD Unavailable Jacob Morrow Unavailable [phone] Nicolasa Escobar MD Unavailable Shen Davis MD Unavailable [phone] Allergies Active Allergy Reactions Criticality Noted Date Comments Haloperidol Unknown High 03/22/2022 Other reaction(s): Irritable Latex Rash Low 01/14/2021 Metformin Diarrhea,Hives High 01/14/2021 Morphine Itching,Rash Low 02/07/2019 Tetracycline Hives High 03/22/2022 Medications TRUEplus Lancets 33G miscIndications: Type 2 diabetes mellitus with complication ([facility]) 1 Lancet in the morning, at noon, [...] Continuous Glucose Sensor (FreeStyle Todd 2 Sensor) [facility] USE DIRECTED CHANGE EVERY 14 DAYS Active [...] BEDTIME 90 tablet 025 Active nystatin (Nyamyc) 288209 UNIT/GM powderIndication s:Tinea APPLY TOPICALLY TO AFFECTED [...] hypothyroidism 11/15/2022 Overview (11/15/2022): ?? Followed by [facility] Lab Results Component Value Date TSH [...] maintenance 11/10/2022 Overview (08/05/2023): Optometry: followed by [facility], last appt Feb 2021 Mammogram: BIRADS 2 02/21/2019, due. Ordered 11/15/22 Colonoscopy: followed by GI, referral for screening colonoscopy placed 11/15/22. Cologuard negative 03/08/23 Pap: overdue, pt does not recall last pap. Will schedule with [facility] CNM in handicap accessible room Last PE: 07/17/23 Assessment & Plan (07/19/2023 10:15 AM EDT): Labs ordered today, showed hyperkalemia, but with hemolysis Will repeat at next appointment with PCP ADHD 09/28/2022 History of posttraumatic stress disorder (PTSD) 09/28/2022 Migraine 09/28/2022 Assessment & Plan (02/25/2024 6:26 PM EST): - History of migraines, previously using sumatripan. Discontinued with history of AK - Referral to Neuro for further eval and tx 11/15/22 -Nurtec 75mg tablet approval - PA # [id number], exp 02/12/25 - pt reports med effective. Denies med SE Assessment & Plan (08/05/2023 5:08 PM EDT): - History of migraines, previously using sumatripan. Discontinued with history of AK - Referral to Neuro for further eval and tx 11/15/22 -Nurtec 75mg tablet approved May 2023. #[id number] will on 12/17/23 - pt reports med effective. Denies med SE Assessment & Plan (11/15/2022 5:45 PM EDT): - History of migraines, previously using sumatripan. Discontinued with history of AK - PA for Nurtec denied through PCP [...] -Patient will follow outpt Vasc Surg at [facility] - Dr. Canales -Incidental measuring on CT [...] patient about the risks and harms of halfway opioid use - Pt goal is to [...] patient about the risks and harms of halfway opioid use - Pt goal is to lose enough weight so that she is eligible for gall bladder surgery, was referred to Weight management clinic 10/08/21 Chronic constipation 05/05/2021 COPD (chronic obstructive pulmonary disease) Assessment & Plan (02/25/2024 6:20 PM EST): - Patient continues on supplemental oxygen: 6L/min @ rest or when sitting, and 8L/min when up and moving around. - Following with [facility] Pulmonology - Dr. Morrow - Chronic SOB. Denies any fevers, chills, difficulty breathing, cough, or mucous production. Reports that she has enough supplemental O2 at home -Continue with Breztri ([id number]) BID -Albuterol PRN -DME request for neb machine placed 11/15/22 Assessment & Plan (11/15/2022 5:33 PM EDT): - Patient continues on supplemental oxygen: 6L/min @ rest or when sitting, and 8L/min when up and moving around. - Following with [facility] Pulmonology - Dr. Morrow - Marycarmen SOB. Denies any fevers, chills, difficulty breathing, cough, or mucous production. Reports that she has enough supplemental O2 at home -Continue with Breztri ([id number]) BID -Albuterol PRN -DME request for neb [...] Plan (02/25/2024 6:25 PM EST): Following with [facility] Endo Continue Mounjaro & Toujeo, with goal of weight loss leading to bariatric surgery Lab Results Component Value Date HGBA1C 6.4 (A) 08/02/2023 HGBA1C 6.7 (A) 07/17/2023 HGBA1C 10.4 (A) 03/01/2023 HGBA1C TNP 07/20/2022 HGBA1C 7.8 (H) 01/11/2021 HGBA1C 11.9 (H) 11/11/2019 HGBA1C 11.9 (H) 11/11/2019 A1c: congratulated in improvement with A1c levels Eye exam: due, schedule with [facility] Eye Care Foot exam: referral to podiatry 11/15/22 Dental: encouraged PNA: UTD ACEi/ARB: yes Statin: yes ASA: yes Lifestyle: Encouraged regular movement as able and aerobic exercise for improved glycemic control Encouraged daily foot checks Encouraged lean protein snacks and to avoid foods high in sugar and simple carbohydrates Medications: Per [facility] Endo Toujeo insulin: 64 units at bedtime Humalog 14 units TID AC Mounjaro 7.5mg subcutaneous weekly Treatment Goals: A1c goal: <7% FBG goal: <130 2 hour post prandial goal: <180 Assessment & Plan (08/05/2023 5:09 PM EDT): Following with [facility] Endo Continue Bree & Jonatan, with goal of weight loss leading to bariatric surgery Lab Results Component Value Date HGBA1C 6.4 (A) 08/02/2023 HGBA1C 6.7 (A) 07/17/2023 HGBA1C 10.4 (A) 03/01/2023 HGBA1C 7.8 (H) 01/11/2021 HGBA1C 11.9 (H) 11/11/2019 HGBA1C 11.9 (H) 11/11/2019 A1c: congratulated in improvement with A1c levels Eye exam: due, schedule with [facility] Eye Care Foot exam: referral to podiatry 11/15/22 Dental: encouraged PNA: UTD ACEi/ARB: yes Statin: yes ASA: yes Lifestyle: Encouraged regular movement as able and aerobic exercise for improved glycemic control Encouraged daily foot checks Encouraged lean protein snacks and to avoid foods high in sugar and simple carbohydrates Medications: Per [facility] Treatment Goals: A1c goal: <7% FBG goal: <130 2 hour post prandial goal: <180 Assessment & Plan (07/19/2023 10:16 AM EDT): Following with [facility] Endo Continue Bree with goal of weight loss leading to bariatric surgery Lab Results Component Value Date HGBA1C 10.4 (A) 03/01/2023 A1c: above goal Eye exam: due, schedule with [facility] Eye Care Foot exam: referral to podiatry 11/15/22 Dental: encouraged PNA: UTD ACEi/ARB: yes Statin: yes ASA: yes Lifestyle: Encouraged regular movement as able and aerobic exercise for improved glycemic control Encouraged daily foot checks Encouraged lean protein snacks and to avoid foods high in sugar and simple carbohydrates Medications: Per [facility] Endo Treatment Goals: A1c goal: <7% FBG goal: <130 2 hour post prandial goal: <180 Assessment & Plan (03/02/2023 4:56 PM EST): Following with [facility] Endo Lab Results Component Value Date HGBA1C 10.4 (A) 03/01/2023 A1c: above goal Eye exam: due, schedule with [facility] Eye Care Foot exam: referral to podiatry 11/15/22 Dental: encouraged PNA: UTD ACEi/ARB: yes Statin: yes ASA: yes Lifestyle: Encouraged regular movement as able and aerobic exercise for improved glycemic control Encouraged daily foot checks Encouraged lean protein snacks and to avoid foods high in sugar and simple carbohydrates Medications: ? ? Per [facility] Endo Treatment Goals: A1c goal: <7% FBG goal: <130 2 hour post prandial goal: <180 Assessment & Plan (11/15/2022 5:38 PM EDT): Following with [facility]o Lab Results Component Value Date HGBA1C 10.1 (A) 09/28/2022 A1c: above goal Eye exam: due, schedule with [facility] Eye Care Foot exam: referral to podiatry 11/15/22 Dental: encouraged PNA: UTD ACEi/ARB: yes Statin: yes ASA: does not appear to be taking, although hx of AK. Will refer to [facility] for further eval. Lifestyle: Encouraged regular movement as able and aerobic exercise for improved glycemic control Encouraged daily foot checks Encouraged lean protein snacks and to avoid foods high in sugar and simple carbohydrates Medications: ? ? Per [facility] Endo Treatment Goals: A1c goal: <7% FBG [...] Encounters Date Type Department Care Team Description 07/15/2024 Orders Only [facility] [address] [place] [address] Francisco Javier Fields MD 07/11/2024 Telephone [facility] [address] [place], [place] [phone] Toyin Pollard FNP Record Request; Lab Orders 07/09/2024 Orders Only [facility] [address] [place] [address], [place] [phone] Francisco Javier Fields MD Stress incontinence of urine (Primary Dx) 07/06/2024 Refill [facility] [address] [place] [address] Toyin Pollard FNP Migraine without status migrainosus, not intractable, unspecified migraine type 07/05/2024 Telephone [facility] [address] [place] [address] Toyin Pollard FNP ER Follow-up 07/02/2024 Orders Only [facility] External Provider, [facility] 06/27/2024 10:30 AM EDT Clinical Support [facility] [address] [place] [address] Margret Hector, MINA Pain 06/27/2024 Refill [facility] [address] [place] [address] Margret Hector, MINA Pain; Calculus of gallbladder without cholecystitis without obstruction; Long-term current use of opiate analgesic; Dizziness, nonspecific 06/27/2024 Travel 06/26/2024 Telephone [facility] [address] [place] [address] Toyin Pollard FNP Ambulance transportation 06/18/2024 Refill [facility] [address] [place] [address] Toyin Pollard FNP Seasonal allergies 06/17/2024 Refill [facility] [address] [place] [address] Toyin Pollard FNP 06/06/2024 Refill C MEDICINE [address] [place] [address] Toyin Pollard FNP Tinea 05/31/2024 Population Health Risk Score Community [facility] ([facility]) Department [address] [place] [phone] Provider, Population Health Generic 05/29/2024 Refill C MEDICINE [address] [place] [address] Toyin Pollard FNP Pain; Calculus of gallbladder without cholecystitis without obstruction; Long-term current use of opiate analgesic 05/27/2024 Refill [facility] PEDS [address] [place] [address] Toyin Pollard FNP 05/23/2024 Refill [facility] MEDICINE [address] [place] [address] Toyin Pollard FNP 05/22/2024 Telephone [facility] [address] [place] [address] Toyin Pollard FNP Appointment Confirmation 05/22/2024 Telephone [facility] MED[facility] [address] [place] [address] Toyin Pollard FNP Durable Medical Equipment 05/22/2024 Refill [facility] [address] [place] [address] Toyin Pollard FNP 05/21/2024 Telephone [facility] [address] [place] [address] Margret Hector, RN 05/21/2024 Telephone [facility] [address] [place] [address] Margret Hector, RN 05/20/2024 Telephone [facility] [address] [place] [address] Toyin Pollard FNP 05/16/2024 Telephone [facility] MED[facility] [address] [place] [address] Toyin Pollard FNP Durable Medical Equipment 05/15/2024 Patient Outreach [facility] [address] [place], [place] [phone] Toyin Pollard FNP Care Coordination (CHW outreach for SDOH PT-1 and food needs-referral completed /) 05/15/2024 Telephone [facility] MEDICINE [address] [place] [phone] Toyin Pollard FNP transportation needed 05/15/2024 Telephone [facility] [address] [place] [phone] Toyin Pollard FNP Nurse Triage 05/15/2024 Refill [facility] [address] [place] [phone] Toyin Pollard FNP Dizziness, nonspecific 04/30/2024 Refill [facility] [address] [place] [phone] Toyin Pollard FNP Smokes cigarettes 04/22/[address] [address] Toyin Pollard FNP 04/19/2024 Refill [facility] [address] [place] [phone] Toyin Pollard FNP Dizziness, nonspecific from Last [...] [facility] [address] [facility] [place] [address] Toyin Pollard, JUICE MIXER [address] [place] [address] 09/23/2024 11:00 AM EDT Telemedicine [facility] [address] [place] [address] Margret Hector, RN [address] [place] [address] Health Maintenance Due Date Last Done Comments [...] 2023 , 11/30/2021, 02/24/2021, Additional history exists Diabetes: Hemoglobin [...] URINALYSIS, COMPLETE, WITH REFLEX TO CULTURE Routine 07/15/2024 9:00 AM EDT Stress incontinence of urine CULTURE, URINE, ROUTINE Routine 07/15/2024 12:00 AM EDT CULTURE, URINE, ROUTINE Routine 07/02/2024 5:05 PM EDT URINALYSIS, COMPLETE, WITH REFLEX TO CULTURE Routine 07/02/2024 4:10 PM EDT COMPREHENSIVE METABOLIC PANEL Routine 07/02/2024 3:33 PM EDT XR ANKLE 2 VIEWS RIGHT Routine 07/02/2024 3:01 PM EDT XR FOOT 1-2 VIEWS [...] (ABNORMAL) Urinalysis, Complete, with Reflex to Culture (07/15/2024 9:00 AM EDT) Only the most recent of2 resultswithin the time period is included. Color Urine Yellow [facility] Appearance Urine Turbid [facility] PH 6.0 5.0 - 9.0 [facility] Glucose Urine UA Negative Negative mg/dL [facility] Urine Blood Trace(A) Negative [facility] Specific [place] - Urine 1.015 1.005 - 1.025 [facility] Urine Protein 30 (1+)(A) Neg-Trace mg/dL [facility] Urine Ketones Negative Negative mg/dL [facility] Nitrite Urine Negative Negative [facility] Leukocyte Esterase Urine Large (3+)(A) Negative [facility] RBC Urine 11-20(A) 0 - 2 /HPF [facility] Urine WBC >50(A) 0 - 5 /HPF [facility] Urine Squamous Epithelial Cell 3-5 0 - 2 /HPF [facility] Other Crystals Urine Present [facility] Urine Bacteria 4+ None Seen [facility] Hyaline Casts, Urine 0-2 0 - 2 /LPF [facility] Urine 07/15/2024 9:00 AM EDT 07/15/2024 1:59 PM EDT [facility] - 07/15/2024 3:07 PM EDT [id number], Clean Catch us Francisco Javier Fields MD LAB URINE ORDERABLES Final Result [facility] [address] [place] [address] [phone] * Culture, Urine, Routine (07/02/2024 5:05 PM EDT) Urine Urine specimen obtained by clean catch procedure / Unknown 07/02/2024 5:05 PM EDT 07/02/2024 5:05 PM EDT Comment:UACC [facility] - 07/04/2024 7:42 AM EDT Escherichia [...] LAB MICROBIOLOGY - GENERAL ORDERABLES Final Result [facility] [address] [place] [phone] * (ABNORMAL) Comprehensive Metabolic Panel (07/02/2024 3:33 PM EDT) Sodium 127(L) 135 - 145 mmol/L [facility] Potassium 4.9 3.3 - 5.1 mmol/L [facility] Chloride 82(L) 96 - 108 mmol/L [facility] Carbon Dioxide 35(H) 22 - 29 mmol/L [facility] Anion Gap 15 12 - 20 [facility] Urea Nitrogen (BUN) 9 9 - 16 mg/dL [facility] Creatinine, Serum 0.67 0.5 - 1.4 mg/dL [facility] Creatinine Clr Calc Pharmacy 182.1 [facility] Comment:Provided height and weight: 167.64 cm,208 kg.eGFR (calculated from the MDRD study equation) and eCrCl(calculated from the Cockcroft-Gault equation) are based ondifferent parameters and may not yield comparable results.If eCrCl result is absurd, please check patient'sheight/weight. Estimated Glomerular Filt Rate >60 [facility] Comment:Chronic Kidney Disea se: Estimated GFR < 60 mL/min/1.88p6Ggnurr Kidney Disease: Estimated GFR < 15 mL/min/1.73m2 Glucose 133(H) 60 - 115 mg/dL [facility] Calcium 9.7 8.4 - 10.2 mg/dL [facility] Bilirubin, Total 0.2 0.0 - 1.0 mg/dL [facility] Aspartate Amino Transferase 19 5 - 31 U/L [facility] Alanine Aminotransferase 10 0 - 31 U/L [facility] Total Protein 7.0 6.5 - 8.0 g/dL [facility] Albumin Level 4.0 3.5 - 5.0 g/dL [facility] Alkaline Phosphatase 54 39 - 117 U/L [facility] 07/02/2024 3:33 PM EDT 07/02/2024 3:36 PM EDT us Generic External Data Provider LAB BLOOD ORDERAB LES Final Result [facility] [address] [place] [address] [phone] * XR Foot 1-2 Views Right (07/02/2024 3:01 PM EDT) Anatomical Region Laterality Modality Lower Extremities, Foot Right Radiogra phic Imaging 07/02/2024 3:01 PM EDT Narrative 07/02/2024 3:56 PM EDT ? [facility] ?[address] ?[place] [address] ?XRay Report ? Signed ? Patient: Elle Lopez ?MR#: [id number] ?? 57 ? : 1970 ?Acct:[id number] ? Age/Sex: 54 / F ?ADM Date: 04/15/25 ? Loc: HO.ED ? Attending Dr: ? Ordering Physician: Silvia Jose ?? Date of Service: 07/02/24 ?? Procedure(s): XR foot RT 2V ?? Accession Number(s): [id number] ? cc: [facility]; Silvia Jose ? EXAMINATION: ?? XR [...] DD/ 1501 ? TD/TT: 07/02/24 1525 ? Water Pollution Specialist: ? Procedure Note Sadiq, Image - 07/02/[address] [address] XRay Report Signed Patient: Elle LopezMR#: [id number] 57 : 1970Acct:[id number] Age/Sex: 54 / FADM Date: 07/02/24 Loc: HO.ED Attending Dr: Ordering Physician: Silvia Jose Date of Service: 07/02/24 Procedure(s): XR foot RT 2V Accession Number(s): [id number] cc: [facility]; Silvia Jose EXAMINATION: XR FOOT, RIGHT [...] 07/02/24 1553 DD/ 1501 TD/TT: 07/02/24 1525 Water Pollution Specialist: [facility] External Provider IMG XR PROCEDURES Final Result * XR Ankle 2 Views Right (07/02/2024 3:01 PM EDT) Anatomical Region Laterality Modality Lower Extremities, Ankle Right Radiogr aphic Imaging 07/02/2024 3:01 PM EDT Narrative 07/02/2024 3:58 PM EDT ? [facility] ?[address] ?[place] [address] ?XRay Report ? Signed ? Patient: Elle Lopez ?MR#: [id number] ?? 57 ? : 1970 ?Acct:[id number] ? Age/Sex: 54 / F ?ADM Date: 07/02/24 ? Loc: HO.ED ? Attending Dr: ? Ordering Physician: Silvia Jose ?? Date of Service: 07/02/24 ?? Procedure(s): XR ankle RT 2V ?? Accession Number(s): [id number] ? cc: [facility]; Silvia Jose ? EXAMINATION: ?? XR [...] DD/ 1501 ? TD/TT: 07/02/24 1525 ? Water Pollution Specialist: ? Procedure Note Donserinatremaineter, Image - 07/02/[address] [address] XRay Report Signed Patient: Elle LopezMR#: [id number] 57 : 1970Acct:[id number] Age/Sex: 54 / FADM Date: 07/02/24 Loc: HO.ED Attending Dr: Ordering Physician: Silvia Jose Date of Service: 07/02/24 Procedure(s): XR ankle RT 2V Accession Number(s): [id number] cc: [facility]; Silvia Jose EXAMINATION: XR ANKLE, RIGHT [...] 07/02/24 1556 DD/ 1501 TD/TT: 07/02/24 1525 Water Pollution Specialist: [facility] External Provider IMG XR PROCEDURES Final Result * POCT BAKARI-14 Urine Drug Screen (06/27/2024 11:20 AM EDT) TCA, Urine Positive Urine Urine specimen obtained by clean catch procedure / Unknown 06/27/2024 11:20 AM EDT Narrative Margret Hector RN - 06/27/2024 11:20 AM EDT Lot# [id number] Exp: 11-06-25 us Toyin Juddjhonny JUICE MIXER POINT OF CARE TEST ENTER/EDIT ORDERABLES Final Result * XR Pelvis 1-2 Views (05/02/2024 12:07 AM EST) Anatomical Region Laterality Modality Body, Pelvis Radiographic Padmini ging 05/02/2024 12:0 7 AM EST Narrative 05/02/2024 12:10 AM EST ? [facility] ?[address] ?[place] [address] ?XRay Report ? Signed ? Patient: Elle Lopez ?MR#: [id number] ?? 57 ? : 1970 ?Acct:[id number] ? Age/Sex: 54 / F ?ADM Date: 05/01/24 ? Loc: HO.ED ? Attending Dr: ? Ordering Physician: Layne Chambers ?? Date of Service: 05/01/24 ?? Procedure(s): XR pelvis 1-2V ?? Accession Number(s): [id number] ? cc: Layne Chambers; [facility] ? CLINICAL HISTORY: pain, fx? Pelvis, 1 view ? COMPARISON: Portions of CT/SR - CT ABDOMEN PELVIS W IV CON - 6/26/23 11:37 ?? EDT ? FINDINGS: ?? No acute fracture. No dislocation. ?? Unremarkable soft tissues. ? IMPRESSION: ?? No acute findings. ? This document has been electronically signed by: Eren Tolbert MD on ?? 05/02/2024 00:07:20 ? Dictated By: ?Eren Tolbert MD ? Signed By: ?<Electronically signed by Eren Tolbert MD in OV> ?05/02/247 ? DD/ ? TD/TT: 05/02/246 ? Water Pollution Specialist: ? Procedure Note Donotuseinterpreter, Image - 05/02/[address] [address] XRay Report Signed Patient: Elle LopezMR#: [id number] 57 : 1970Acct:[id number] Age/Sex: 54 / FADM Date: 05/01/24 Loc: HO.ED Attending Dr: Ordering Physician: Layne Chambers Date of Service: 05/01/24 Procedure(s): XR pelvis 1-2V Accession Number(s): [id number] cc: Layne Chambers; [facility] CLINICAL HISTORY: pain, fx? Pelvis, 1 [...] MD in OV> 05/02/247 DD/ TD/TT: 05/02/246 Water Pollution Specialist: [facility] External Provider IMG XR PROCEDURES Final Result * (ABNORMAL) POCT HGB A1C (08/02/2023 4:30 PM EDT) [facility] Hemoglobin A1C 6.4(A) 4.0 - 6.0 % QC Media Lot # [id number] Lot# Expiration Date [id number] Blood 08/02/2023 4:30 PM EDT Result [facility] Toyin Pollard JUICE MIXER POINT OF CARE TEST ENTER/EDIT ORDERABLES Final Result * Hepatitis C Antibody with Reflex to HCV, RNA, Quantitative, Real-Time PCR (07/19/2023 12:30 PM EDT) Hepatitis C Antibody Nonreactive Nonreactive [facility] Comment:Antibodies to HCV no t detected; does not exclude early acuteHCV infection. Blood Venous blood specimen / Unknown 07/19/2023 12:30 PM EDT 07/19/2023 1:00 PM EDT Agustina Toribio MD LAB BLOOD ORDERABLES Final Res ult Performing Organization Address City/[facility]/ZIP Co de Phone Number [facility] [address] [place] [address] [phone] * HIV-1/2 Antigen and Antibodies, Fourth Generation, with Reflexes (07/19/2023 12:30 PM EDT) Pathologist [facility] [place] HIV AB/AG Nonreactive Nonreactive [facility] Comment:HIV-1 p24 Ag and/or HIV-1/HIV-2 Ab not detected.A test result that is nonreactive does not exclude thepossibility of exposure to or infection with HIV-1 and/orHIV-2. Nonreactive results in this assay for individualswith prior exposure to HIV-1 and/or HIV-2 may be due toantigen and antibody levels that are below the limit ofdetection of this assay.The [employer] HIV Ag/Ab Combo assay result andsupplemental assay results should be interpreted inconjunction with the patient's clinical presentation,history and other laboratory results. If the results areinconsistent with clinical evidence, additional testing issuggested to confirm the result. Blood Venous blood specimen / Unknown 07/19/2023 12:30 PM EDT 07/19/2023 1:00 PM EDT Agustina Toribio MD LAB BLOOD ORDERABLES Final Res ult Performing Organization Address City/[facility]/ZIP Co de Phone Number [facility] [address] [place] [address] [phone] * (ABNORMAL) Lipid Panel, Standard (07/17/2023 4:09 PM EDT) Triglycerides 171(H) <150 mg/dL [facility] Comment:Desirable Triglyceri de: less than 150 mg/dLBorderline High Triglyceride 150-199 mg/dLHigh Triglyceride: 200-499 mg/dLVery High Triglyceride: greater than or equal to 5OO mg/dL Cholesterol 176 <200 mg/dL [facility] Comment:Desirable Cholestero l: less than 200 mg/dLBorderline High Cholesterol: 200-239 mg/dLHigh Cholesterol: greater than 239 mg/dL LDL Cholesterol Calculated 77 <100 mg/dL [facility] Comment:Desirable LDL: less than 100 mg/dLNear Optimal/Above Optimal LDL: 110- 129 mg/dLBorderline High LDL: 130-159 mg/dLHigh LDL: 160-189 mg/dLVery High LDL: greater than or equal to 190 mg/dL HDL Cholesterol 65 >40 mg/dL [facility] Comment:Desirable HDL: great er than 40 mg/dL Note: This HDL assay may give artificially low results in patients with liver disease. Blood Venous blood specimen / Unknown 07/17/2023 4:09 PM EDT 07/17/2023 5:46 PM EDT us Agustina Toribio MD LAB BLOOD ORDERABLES Final Res ult [facility] [address] [place] [phone] * Cologuard?? colon cancer screening (03/08/2023 3:30 PM EST) Cologuard Result Negative Negative 03/16/20 23 9:24 AM EST [facility] (CLIA #:[id number]) Comment: NEGATIVE TEST RESULT. A negative Cologuard [...] cancer. ??Following a negative Cologuard result, the [place] [employer] Society and U.S. Multi-Society Task Force screening guidelines recommend a Cologuard re-screening interval of 3 years. References: [place] [employer] Guideline for Colorectal Cancer Screening: https://www.cancer.org/cancer/kstgc-rpydea-jjlfxy/pyidbytlc-dtjhbnqny-olsenym/ac s-rec ommendations.html.; Miguel ARTIS, Maria Elena CHEW, Lester MaherK, Colorectal Cancer Screening: Recommendations for Physicians and Patients from the U.S. Multi-Society Task Force on Colorectal Cancer Screening , Am J Gastroenterology 2017; 112:7327-4645. TEST DESCRIPTION: Composite algorithmic analysis of stool [...] screened with both Cologuard and colonoscopy. (Kevin Garcia, N Engl J Med 2014;370(14):5238-9297.) Cologuard may produce a false negative or false positive result (no colorectal cancer or precancerous polyp present at colonoscopy follow up). A negative Cologuard test result does not guarantee the absence of CRC or advanced adenoma (pre-cancer). The current Cologuard screening interval is every 3 years. ([place] [employer] Society and U.S. Multi-Society Task Force). Cologuard performance data in a 10,000 patient pivotal study using colonoscopy as the reference method can be accessed at the following location: www.Wowboard/results. Additional description of the Cologuard test process, warnings and precautions can be found at www.cologuard.[employer]. Stool specimen (specimen) 03/08/2023 3:30 PM EST 03/09/2023 7:12 PM EST Toyin Pollard [facility] MOLECULAR DIAGNOSTICS DRE FRY Final Result [facility] (CLIA #:[id number]) [place] [address], * Mammography Report 1 (05/27/2020 2:30 PM [...] Creatinine, Urine 16(L) 20 - 275 mg/dL [facility] Microalbumin Urine <0.2 See Note: [...] MD LAB URINE ORDERABLES Final Resul t [facility] [address] * HPV mRNA E6/E7 (02/20/2019 8:58 AM EST) HPV mRNA E6/E7 Not Detected NOT DETECTED [facility] Comment: This test was performed using the APTIMA(R) HPV Assay ([employer] This assay detects E6/E7 viral messenger RNA (mRNA) from 14 high-risk HPV types (16,18,31,33,35,39,45,51, 52,56,58,59,66,68). For additional information please refer to: http://education.NetScientific.[employer]/faq/XYK028t3 (This link is being provided for informational/ educational purposes only.) The analytical performance characteristics of this assay have been determined by [facility] [place]. The modifications have not been cleared or approved by the FDA. This assay has been validated pursuant to the CLIA regulations and is used for clinical purposes. Test Performed by [facility] [place], [facility] [place], [address] [place] [address] Randy Willson M.D., Ph.D., Director of Laboratories , CLIA [id number] Please note: ??Effective 11/30/2015, HPV testing will be performed using [facility]'s APTIMA test which targets mRNA. Detecting mRNA instead of DNA, as in older methods, offers significant improvements in specificity. 02/20/2019 8:58 AM EST Carina Fontaine CNM HISTORICAL/NON ORDERABLE LABS Final Result [facility] [address] from Last 3 Months or Most Recently Relevant to Health Maintenance Insurance [facility] C3 DENTAL-[facility] MEDICAID STAND ADULT Care Teams Career Development Counselor Relationship Specialty Start Date End Date Toyin Pollard FNP [address] [place] [address] PCP - General Family Medicine 01/11/21 Satish Brennan MD [address] [place], [place] Endocrinology 02/22/24 Jacob Morrow 5 [place] [address] Pulmonary Disease 02/22/24 Nicolasa Escobar MD [address] [facility] [address] [place] [address] Neurology 02/22/24 Shen Davis MD [address] [place], [place] Nephrology 02/22/24 Ellyn Connolly Automatic Beading Lathe OperatorJava Websphere Developer 08/17/23 [facility] 01/11/24
--- OUTSIDE RECORDS SUMMARY | 2024-07-16 15:21 | XMS_ITS | Encounter Summary ---
Author Organization [employer] Address [address] [facility] 7t [place] [address] Care Team Providers Care Welding Machine Operator Thermit Name Role Phone Toyin Pollard Primary Care Provider Satish Brennan MD Unavailable Jacob Morrow Unavailable [phone] Nicolasa Escobar MD Unavailable Shen Davis MD Unavailable [phone] Reason for Visit * Reason Onset Date Comments Durable Medical Equipment 07/06/2022 Encounter Details Date Type Department Care Team (Late st Contact Info) Description 07/06/2022 Telephone [facility] MED[facility] [address] [place] [address] Toyin Pollard FNP [address] [place], [place] [phone] Durable Medical Equipment Social History Tobacco Use [...] for signature. * Telephone Encounter - Hemalatha Mnior - 07/06/2022 10:16 AM EDT Tc from pt requesting a shower chair . documented in this encounter Plan of Treatment Upcoming Encounters Date Type Department Care Team (Late st Contact Info) Description 08/05/2024 10:30 AM EDT Office Visit [facility] [address] [place] [address] Toyin Pollard FNP [address] [place] [address] 09/23/2024 11:00 AM EDT Telemedicine [facility] [address] [place] [address] Margret Hector RN 505 [place] [address] documented as of this encounter Visit Diagnoses Not on filedocumented in this encounter Care Teams Welding Machine Operator Thermit Relationship Specialty Start Date End Date Toyin Pollard FNP [address] [place] [address] PCP - General Family Medicine 01/11/21 Satish Brennan MD [address] [facility] [address] [place] [address] Endocrinology 02/22/24 Jacob Morrow 5 [place] [address] Pulmonary Disease 02/22/24 Nicolasa Escobar MD [address] [place] [address] Dr [address] [place] [address] Neurology 02/22/24 Shen Davis MD [address] [place] [address] Nephrology 02/22/24 Ellyn Connolly Delphi ProgrammerSecured Entrance Monitor 08/17/23 [facility] 01/11/24 01/21/24 [facility] 01/11/24 documented as of this encounter
--- OUTSIDE RECORDS SUMMARY | 2024-07-16 15:21 | XMS_ITS | Encounter Summary ---
Author Organization [employer] Address [address] [facility] 7t [place] [address] Care Team Providers Care Vp Emerging Media Name Role Phone Toyin Pollard Primary Care Provider [phone] Satish Brennan MD Unavailable [phone] Jacob Morrow Unavailable [phone] Nicolasa Escobar MD Unavailable Shen Davis MD Unavailable [phone] Reason for Visit * Reason Onset Date Comments Hospital Follow-up 11/06/2023 Encounter Details Date Type Department Care Team (Late st Contact Info) Description 11/06/2023 Telephone [facility] MEDICINE 230 [place] [address] Toyin Pollard FNP [address] [place], [place] [phone] Hospital Follow-up Social History Tobacco Use Types [...] from pt requesting a F appt. Hospital: [facility] Date of admission: 10/25 Discharge date: 11/03 Diagnosed: Ankle injury documented in this encounter Plan of Treatment Upcoming Encounters Date Type Department Care Team (Late st Contact Info) Description 08/05/2024 10:30 AM EDT Office Visit [facility] [address] [place] [address] Toyin Pollard FNP 505 [place] [address] 09/23/2024 11:00 AM EDT Telemedicine [facility] [address] [place] [address] Margret Hector, RN 505 [place] [address] documented as of this encounter Goals Goal [...] documented as of this encounter Care Teams Vp Emerging Media Relationship Specialty Start Date End Date Toyin Pollard FNP [address] [place] [address] PCP - General Family Medicine 01/11/21 Satish Brennan MD [address] [facility] 104 [place] [address] Endocrinology 02/22/24 Jacob Morrow 5 [place] [address] Pulmonary Disease 02/22/24 Nicolasa Escobar MD [address] [place] [address] [address] [place] [address] Neurology 02/22/24 Shen Davis MD [address] [place] [address] Nephrology 02/22/24 Ellyn Connolly Sort WorkerCustomer Support Analyst 08/17/23 [facility] 01/11/24 01/21/24 [facility] 01/11/24 documented as of this encounter
--- OUTSIDE RECORDS SUMMARY | 2024-07-16 15:21 | XMS_ITS | Encounter Summary ---
Author Organization [employer] Address [address] [facility] 7t [place] [address] Care Team Providers Care Porcelain Finisher Name Role Phone Toyin Pollard LOUIE Primary Care Provider [phone] Satish Brennan MD Unavailable [phone] Jacob Morrow Unavailable [phone] Nicolasa Escobar MD Unavailable Shen Davis MD Unavailable [phone] Encounter Details Date Type Department Care Team ([facility] Contact Info) Description 05/23/2022 Orders Only [facility] [address] [place] [address] Ellyn Chery LPN Social History Tobacco Use [...] Upcoming Encounters Date Type Department Care Team ([facility] Contact Info) Description 08/05/2024 10:30 AM EDT Office Visit [facility] [address] [place] [address] Toyin Pollard FNP 505 [place] [address] 09/23/2024 11:00 AM EDT Telemedicine [facility] [address] [place] [address] Margret Hectro, RN [address] [place] [address] documented as of this encounter Visit Diagnoses Not on filedocumented in this encounter Care Teams Porcelain Finisher Relationship Specialty Start Date End Date Toyin Pollard FNP [address] [place] [address] PCP - General Family Medicine 01/11/21 Satish Brennan MD [address] [facility] [address] [facility] 104 [place] [address] Endocrinology 02/22/24 Jacob Morrow 5 [place] [address] Pulmonary Disease 02/22/24 Nicolasa Escobar MD [address] [place] [address] Neurology 02/22/24 Shen Davis MD [address] [facility] 302 [place] [address] Nephrology 02/22/24 Ellyn Connolly Data Deliverables ManagerDisplay Fabricator 08/17/23 [facility] 01/11/24 01/21/24 [facility] 01/11/24 documented as of this encounter
--- OUTSIDE RECORDS SUMMARY | 2024-07-16 15:21 | XMS_ITS | Encounter Summary ---
Author Organization [employer] Address [address] [facility] 7[address] [place] [address] Care Team Providers Care Quality Project Manager Name Role Phone Toyin Pollard Primary Care Provider Satish Brennan MD Unavailable Jacob Morrow Unavailable [phone] Nicolasa Escobar MD Unavailable Shen Davis MD Unavailable [phone] Reason for Visit * Reason Onset Date Comments PT1 10/04/2022 Encounter Details Date Type Department Care Team (Late st Contact Info) Description 10/04/2022 Telephone [facility] MEDICINE [address] [place], [place] [phone] Toyin Pollard FNP [address] [place], [place] [phone] PT1 Social History Tobacco Use Types Packs/Day [...] 10/04/2022 12:12 PM EDT GLENDY Hanna from [facility] requesting a pt1 to Location:[address] [place] [address] [address] [place] [address] Specialty: MRI Date&Time: 10/11/22 @ 9am Inspector Balance Truing: n/a Pt does uses a scooter documented in this encounter Plan of Treatment Upcoming Encounters Date Type Department Care Team (Late st Contact Info) Description 08/05/2024 10:30 AM EDT Office Visit [facility] [address] [place] [address] Toyin Pollard FNP [address] [place] [address] 09/23/2024 11:00 AM EDT Telemedicine [facility] [address] [place] [address] Margret Hector, RN 505 [place] [address] documented as of this encounter Visit Diagnoses Not on filedocumented in this encounter Additional Health Concerns Assessment Noted Time PHQ-9 Depression Total Score: 0 09/29/19 23 2:03 PM EDT documented as of this encounter Care Teams Quality Project Manager Relationship Specialty Start Date End Date Toyin Pollard FNP [address] [place] [address] PCP - General Family Medicine 01/11/21 Satish Brennan MD [address] [place] [address] Endocrinology 02/22/24 Jacob Morrow [address] [place] [address] Pulmonary Disease 02/22/24 Nicolasa Escobar MD [address] [address] Neurology 02/22/24 Shen Davis MD [address] [place] [address] Nephrology 02/22/24 Ellyn Connolly Space EngineerWet Process Head Miller 08/17/23 [facility] 01/11/24 01/21/24 [facility] 01/11/24 documented as of this encounter
--- OUTSIDE RECORDS SUMMARY | 2024-07-16 15:21 | XMS_ITS | Encounter Summary ---
Author Organization [employer] Address [address] [facility] 7t [place] [address] Care Team Providers Care Training Developer Name Role Phone Toyin Pollard Primary Care Provider Satish Brennan MD Unavailable Jacob Morrow Unavailable [phone] Nicolasa Escobar MD Unavailable Shen Davis MD Unavailable [phone] Encounter Details Date Type Department Care Team (Late st Contact Info) Description 04/22/2024 Telephone [facility] MEDICINE [address] [place], [place] [phone] Toyin Pollard FNP [address] [place], [place] [phone] Social History Tobacco Use Types Packs/Day Years [...] the past 12 months, has t he [employer], gas, oil or water company threatened to [...] [facility] [address] [place] [address] Toyin Pollard FNP [address] [place] [address] 09/23/2024 11:00 AM EDT Telemedicine [facility] 505 [place] [address] Margret Hector, MIN[place] 505 [place] [address] documented as of this encounter Goals Goal [...] documented as of this encounter Care Teams Training Developer Relationship Specialty Start Date End Date Toyin Pollard FNP [address] [place] [address] PCP - General Family Medicine 01/11/21 Satish Brennan MD [address] [place] [address] Endocrinology 02/22/24 Jacob Morrow 5 [place] [address] Pulmonary Disease 02/22/24 Nicolasa Escobar MD [address] [facility] 140 [place] [address] Neurology 02/22/24 Shen Davis MD [address] [place] [address] Nephrology 02/22/24 Ellyn Connolly Baker BenchCloth Winding Supervisor 08/17/23 [facility] 01/11/24 documented as of this encounter
--- OUTSIDE RECORDS SUMMARY | 2024-07-16 15:21 | XMS_ITS | Data Portability ---
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 Problems Name Problem SNOMED Code Status Onset Date Resolution Date Notes Provider Name and Address Organization Details Recorded Time Obstructive sleep apnea syndrome 50117213 Active 2019 Michelle Wittenberg [address], [address], [place], [address], [facility] [employer] 0 08:58:54 Acute hypercapnic respiratory failure 776641202 Active 2019 Michelle Wittenberg [address], [address], [place], [address], [facility] [employer] 0 08:59:55 Closed fracture of left ankle 9068972014277 9108 Active [address], [address], [place], [address], [facility] 0 09:03:18 COVID-19 197312763 Active [address], [address], [place], [address], [facility] - [facility] 0 09:03:58 Hyperkalemi a 71467892 Active [address], [address], [place], [address], [facility] 0 09:05:45 Syncope and collapse 762525032 Active [address], [address], [place], [address], [facility] 0 09:06:17 Hypothyroid ism 30188887 Active [address], [address], [place], [address], [employer] [facility] 0 09:07:04 Essential hypertensio n 04420253 Active [address], [address], [place], [address], [facility] 0 09:08:10 Mixed hyperlipide matilde 751710864 Active [address], [address], [place], [address], [facility] 0 09:08:25 Bipolar disorder 62440494 Active [address], [address], [place], [address], [facility] 0 09:09:02 Type 2 diabetes mellitus without complicatio n 301820912 Active [address], [address], [place], [address], [facility] 0 09:13:23 Asthma 854777973 Active [address], [address], [place], [address], [facility] 0 09:13:44 Type 2 diabetes mellitus 92821268 Active 2021 Becka Zafar MD [address], [address], [place], [address], [facility] 2 20:52:53 Morbid obesity 903099266 Active 2021 Becka Zafar MD [address], [address], [place], [address], [facility] - [facility] 2 20:53:24 Schizoaffec tive disorder, bipolar type 96013810 Active 2021 Becka Zafar MD [address], [address], [place], [address], [facility] 2 21:21:28 Tobacco dependence syndrome 62315357 Active 2021 Becka Zafar MD [address], [address], [place], [address], [facility] 2 21:22:00 Chronic obstructive pulmonary disease 56171260 Active 2021 Becka Zafar MD [address], [address], [place], [address], [facility] 2 21:25:49 Moderate persistent asthma 124318288 Active 2021 Becka Zafar MD [address], [address], [place], [address], [facility] 2 21:25:50 Depressive disorder 25063060 Active 2021 Becka Zafar MD [address], [address], [place], [address], [facility] 2 21:26:11 Chronic constipatio n 031523247 Active 2021 Becka Zafar MD [address], [address], [place], [address], [facility] 2 21:26:21 Vitamin D deficiency 48535322 Active 2021 Becka Zafar MD [address], [address], [place], [address], [facility] 2 21:27:35 Gastroesoph ageal reflux disease without esophagitis 323913278 Active 2021 Becka Zafar MD [address], [address], [place], [address], [facility] 2 21:28:05 Coronary arterioscle rosis 72660574 Active 2021 Becka Zafar MD [address], [address], [place], [address], [facility] 2 21:35:19 Allergic rhinitis 40591207 Active 2021 Becka Zafar MD [address], [address], [place], [address], [facility] 2 21:36:27 Edema of lower extremity 960216902 Active 2021 Becka Zafar MD [address], [place], [address], [facility] 2 21:36:46 Cholelithia sis without obstruction 67306923 Active 2021 Becka Zafar MD [address], [address], [place], [address], [facility] 2 21:43:26 Chronic back pain 743072919 Active 2021 Becka Zafar MD [address] [place] [address], [address], [place], [address], [facility] 2 21:44:01 Problem Notes None recorded. [...] Not available Not available Not available 03/07/2020 75600 9 RxNorm irrit abili ty Not Available Not Available Not Available latex environme nt,medica tion rash Not available Not available 03/07/2020 90079 91 RxNorm Not Available Not Available Not Available 99597 morphine medicatio n rash Not available Not available 04/25/2021 7052 RxNorm Not Available Not Available Not Available 30157 tetracycl ine medicatio n hives Not available Not available 04/25/2021 96805 RxNorm Not Available Not Available Not Available Medications Name Sig Start Date Stop Date Status Note LastModified by Organization Details LastModified Time Latuda 40 mg tablet active [facility] Latuda Not Available Not Available Not Available Vitals Date Recorded Body height Body mass index (BMI) Body weight Heart rate Respiratory rate Body temperature Oxygen saturation Oxygen saturation in Arterial blood by Pulse oximetry Systolic blood pressure Diastolic blood pressure Provider Name and Address Organization Details Last Updated DateTime 2 170.18 cm 59.2 kg/m2 557848. 63 g 65 /min 18 /min 97.2 [degF] 96 % 96 % 119 mm[Hg] 52 mm[Hg] Becka Zafar MD [address], [facility] [address], [address], [facility] 2 12:35:25 Date Recorded Body height Oxygen saturation Oxygen saturation in Arterial blood by Pulse oximetry Systolic blood pressure Diastolic blood pressure Provider Name and Address Organization Details Last Updated DateTime 2 170.18 cm 90 % 90 % 119 mm[Hg] 52 mm[Hg] SHAISTA LUJAN PA-C [address], [facility] [address], [place], [address], [facility] 2 13:53:10 Date Recorded Body height Oxygen saturation Oxygen saturation in Arterial blood by Pulse oximetry Systolic blood pressure Diastolic blood pressure Provider Name and Address Organization Details Last Updated DateTime 2 170.18 cm 91 % 91 % 119 mm[Hg] 52 mm[Hg] [facility] [address], [place], [address], [facility] 2 12:51:39 Date Recorded Body height Respiratory rate Body temperature Heart rate Oxygen saturation Oxygen saturation in Arterial blood by Pulse oximetry Systolic blood pressure Diastolic blood pressure Provider Name and Address Organization Details Last Updated DateTime 2 170.18 cm 18 /min 97.3 [degF] 65 /min 96 % 96 % 119 mm[Hg] 52 mm[Hg] Verenice Adrian [facility] 2 12:29:49 Date Recorded Body height Body mass index (BMI) Body weight Heart rate Respiratory rate Body temperature Oxygen saturation Oxygen saturation in Arterial blood by Pulse oximetry Systolic blood pressure Diastolic blood pressure Provider Name and Address Organization Details Last Updated DateTime 2 170.18 cm 59.5 kg/m2 438980. 1 g 71 /min 18 /min 97.1 [degF] 90 % 90 % 128 mm[Hg] 87 mm[Hg] SHAISTA LUJAN PA-C [address], [place], [address], [facility] 2 16:18:59 Social History Question Answer Notes LastModified by Organization Details LastModified Time Tobacco Smoking Status Current Every Day Smoker Michelle Jeanne [address] , [address], [place], [address], [facility] 03/07/2020 09:16:33 Do You Have An Advance Directive? Yes [email or web address] Information not available 04/25/2021 What Is Your Level Of Alcohol Consumption? None Information not available 04/25/2021 What Is Your Code Status? Full Code All Treatments [email or web address] Information not available 04/25/2021 Do You Or Have You Ever Used E-cigarettes Or Vape? Never Used Electronic Cigarettes Information not available 03/07/2020 Where Do You Live? [facility] Information not available 05/05/2021 Legal Guardian? No Information not available 05/05/2021 Do You Have A Medical Power Of Sign Language Instructor? Yes Information not available 03/07/2020 What Was The Date Of Your Most Recent Tobacco Screening? 04/23/2021 [email or web address] Information not available 04/25/2021 Do You Have An Out Of Hospital DNR? No [email or web address] Information not available 04/25/2021 Do You Or Have You Ever Used Smokeless Tobacco? Never Used Smokeless Tobacco Information not available 03/07/2020 How Much Tobacco Do You Smoke? 0.5 PPD Information not available 04/25/2021 Has Tobacco Cessation Counseling Been Provided? Yes [email or web address] Information not available 04/25/2021 On What Date Was Tobacco Cessation Counseling Provided? 04/23/2021 [email or web address] Information not available 04/25/2021 How Many Years Have You Smoked Tobacco? 30 Information not available 03/07/2020 Do You Or Have You Ever Used Any Other Forms Of Tobacco Or Nicotine? No [email or web address] Information not available 04/25/2021 Sex: Unknown Functional Status None recorded. Mental Status None recorded. Family History Relationship Description Onset Age of this Age Resolved Age Notes LastModified by Organization Details LastModified Time Sister Malignant neoplasm of ovary [email or web address] Not available 2021 19:38:51 Medical History No medical history recorded. Gynecological HistoryNo gynecological history recorded. Obstetrics History GPAL:G 0 P 0 0 0 0 Immunizations Vaccine Type Date Status Note Provider Nam e and Address Organization Details Recorded Time COVID-19, mRNA, LNP-S, PF, 30 mcg/0.3 mL dose 04/01/2020 completed SHAISTA LUJAN PA-C [address], [address], [place], [address], [facility] 04/25/2021 19:22:57 COVID-19, mRNA, LNP-S, PF, 30 mcg/0.3 mL dose 11/20/2020 completed SHAISTA LUJAN PA-C [address], [address], [place], [address], [facility] 04/25/2021 19:33:52 COVID-19, mRNA, LNP-S, PF, 30 mcg/0.3 mL dose 02/24/2021 completed SHAISTA LUJAN PA-C [address], [address], [place], [address], [facility] 04/25/2021 19:34:02 Past Encounters Encounter ID Performer Location Encounter Start Date Encounter Closed Date Diagnosis/Indication Diagnosis SNOMED-CT Code Diagnosis ICD10 Code Diagnosis Note [id number] Michelle Keenanette [facility] on [address] [place] [address] 03/07/2020 08:38:10 03/27/2020 08:36:17 COVID-19 661690688 U07.1 +02/27/20c ompleted course of remdesivir and decadronf/ u cards outpatient for ECHO after isolationm onitor resp status Acute hype rcapnic respiratory failure 865865746 J96.02 see HPIseconda ry to covid. pulmonary edemadiure sed with lV lasix, Tx above for covid txCPAP Essential hypertension 63359079 I10 atenolol 50 mg qd, with hold parameters lasix 40 mg qdlisinopr il 10 mg qdmonitor BPs Hypothyroidism 67715295 E03.9 on replacemen t. monitor Bipolar disorder 4776633 4 F31.9 amitriptyl ine 10 mg qdbenztrop ine 2 mg BIDdepakot e 500 mg in am 1000 mg at HSescitalo pram 10 mg qdhydroxyz ine 50 mg tid prnprazosi n 4 mg at HSseroquel 300 mg at HStrazodon e 1-2 tabs at HS? med management contributi ng to syncopal episodesps ych eval prn Tobacco user 551741484 Z 72.0 90 pack year Hx. encourage cessation. monitor Obstructiv e sleep apnea syndrome 19125838 G47.33 has CPAPmonito r Hyperkalemia 33032094 E8 7.5 resolved in acute caremonito r labs Closed fra cture of left ankle 2242326688 1605670 S82.892D see HPIortho rec's for non surgical management repeat xray in 1 weekf/o ortho outpatient LLE NWBPT OT to eval and treatoxyco done and APAP prn for pain.monit or Syncope and collapse 309 536097 R55 see HPIunclear etiology? med management monitor for recurrence Type 2 johnny betes mellitus without complication 841298986 E11.9 glimepirid e 1 mg in am 4 mg at dinnerglar gine 20 U at HSmonitor accuchecks TID Mixed hyperlipidemia 267 429680 E78.2 on statin. monitor Asthma 149298625 J45.90 9 symbicort dailyspiri va qdsingulai r qd flonase qdmonitor resp status [id number] Emely Loyola MD [facility] on [address] [place] [address] 03/11/2020 06:27:35 03/27/2020 08:52:50 Asthma 339062507 J45.30 albuterol HFA 2 puffs a4h prnSymbico rt 160-4.5: 2 puffs bidmontelu kast 10 mg dailytiotr opium 2 puffs dailywill monitor Closed fra cture of left ankle 4821489893 0359548 S82.892D oxycodone 5 mg q4h prnPT/OT fu ortho COVID-19 093371221 U07.1 recovering after treatment with remdesivir and dexamethas onewill continue to monitor closely Essential hypertension 07033286 I10 furosemide 40 mg dailylisin opril 10 mg dailyateno lol 50 mg dailywill monitor Hypothyroidism 70592494 E03.8 levothyrox ine 137 mcg dailywill monitor Mixed hyperlipidemia 267 581522 E78.2 atorvastat in 20 mg dailywill monitor Type 2 johnny betes mellitus without complication 193697757 E11.9 Lantus 20U qhsglimepi ride 1 mg in morning and 4 mg in eveningwil l monitor Schizoaffe ctive disorder 52007941 F25.8 benztropin e 2 mg bidquetiap ine 300 mg at hs prazosin 4 mg at hsdivalpro ex 500 mg in afternoon and 1000 mg in eveningLat uda 50 mg dailysee meds for mixed anxiety and depressive disorder Mixed anxi ety and depressive disorder 327654777 F41.8 citalopram 10 mg dailytrazo done 50 mg at hshydroxyz ine 50 mg q8h prnamitrip tyline 10 mg at hssee meds for schizoaffe ctive disorderwi monitor [id number] Kae Combs [facility] on [address] [place] [address] 03/16/2020 16:00:58 03/26/2020 16:02:23 Intertrigo 01290020 L30.4 Add Nystatin power BID for 10 days. Monitor to resolution Closed fra cture of left ankle 9429599377 6748667 S82.892D oxycodone 5 mg q4h prncont PT/OT fu ortho needs to be scheduled COVID-19 659633950 U07.1 recovering after treatment with remdesivir and dexamethas oneresp status stable-not requiring W5susgbqa recovered Essential hypertension 69093089 I10 furosemide 40 mg dailylisin opril 10 mg dailyateno lol 50 mg dailyBP stable, monitor Type 2 johnny betes mellitus without complication 327632955 E11.9 Lantus 20U qhsglimepi ride 1 mg in morning and 4 mg in eveningAdd blood sugars BID [id number] Kae Combs [facility] on [address] [place] [address] 03/23/2020 13:03:40 03/27/2020 09:40:26 Closed fracture of left ankle 4175895551 1304547 S82.892D Remains NWB on LLEcont PT/OT Has ortho f/u scheduled 04/01Decrea se oxycodone 5 mg Q6h PRN COVID-19 660296852 U07.1 recovering after treatment with remdesivir and dexamethas oneresp status stable-not requiring X8xganvim recovered Essential hypertension 66872099 I10 furosemide 40 mg dailylisin opril 10 mg dailyateno lol 50 mg dailyBP stable, monitor Type 2 johnny betes mellitus without complication 546985629 E11.9 Lantus 20U qhsglimepi ride 1 mg in morning and 4 mg in eveningBlo od sugars well controlled Monitor [id number] Kae Combs [facility] on [address] [place] [address] 03/24/2020 14:32:40 03/27/2020 11:02:54 Edema of lower extremity 366941220 R60.0 Increase lasix 40 mg dailyMonit or Loose stool 556827196 R1 9.5 Obtain stool for c. diffIf neg, can add imodium PRNMonitor [id number] Kae Combs [facility] on [address] [place] [address] 04/03/2020 11:00:15 04/06/2020 15:10:08 Closed fracture of left ankle 4987468976 8035251 S82.892D Remains NWB on LLEHas ortho f/u scheduled 2/3Decreas e oxycodone 5 mg Q8h PRN x 3 days then Q12h PRN COVID-19 335913653 U07.1 recovering after treatment with remdesivir and dexamethas oneresp status stable-not requiring N1dzakgvt recovered Essential hypertension 62116894 I10 furosemide 40 mg dailylisin opril 10 mg dailyateno lol 50 mg dailyBP stable, monitor Type 2 johnny betes mellitus without complication 975221673 E11.9 Lantus 20 U qhsglimepi ride 1 mg in morning and 4 mg in eveningBlo od sugars well controlled Monitor Edema of l ower extremity 093693752 R60.0 Lasix 40 mg dailyAdd compressio n stocking to RLE [id number] Kae Combs [facility] on [address] [place] [id number] 04/07/2020 14:06:25 04/10/2020 13:44:07 Closed fracture of left ankle 6512412752 1622881 S82.892D Remains NWB on LLEHas ortho f/u scheduled 2/3Oxycodo ne Q12h PRN COVID-19 069482108 U07.1 recovering after treatment with remdesivir and dexamethas oneresp status stable-not requiring Q9avraleq recovered Type 2 johnny betes mellitus without complication 941687455 E11.9 Lantus 20 U qhsglimepi ride 1 mg in morning and 4 mg in eveningBlo od sugars well controlled Monitor Edema of l ower extremity 512473099 R60.0 Lasix 40 mg dailyCompr ession stocking to RLE [id number] STACY SALEH [facility] on [address] [place] [address] 04/10/2020 12:43:03 04/13/2020 16:35:27 Closed fracture of left ankle 9741841807 9372943 S82.892D Remains NWB on LLEHas ortho f/u scheduled 2/3Oxycodo ne Q12h PRN- DO NOT SEND [facility] HOME, D/C ON DISCHARGE COVID-19 737761128 U07.1 recovering after treatment with remdesivir and dexamethas oneresp status stable-not requiring W7qajahww recovered Type 2 johnny betes mellitus without complication 946420798 E11.9 Lantus 20 U qhsglimepi ride 1 mg in morning and 4 mg in eveningBlo od sugars well controlled Edema of l ower extremity 645318037 R60.0 Lasix 40 mg dailyCompr ession stocking to RLE Asthma 003225746 J45.30 albuterol HFA 2 puffs a4h prnSymbico rt 160-4.5: 2 puffs bidmontelu kast 10 mg dailytiotr opium 2 puffs daily Essential hypertension 62939763 I10 furosemide 40 mg dailylisin opril 10 mg dailyateno lol 50 mg daily Hypothyroidism 35888697 E03.8 levothyrox ine 137 mcg dailY Mixed hyperlipidemia 267 206603 E78.2 atorvastat in 20 mg daily Schizoaffe ctive disorder 82819083 F25.8 benztropin e 2 mg bidquetiap ine 300 mg at hs prazosin 4 mg at hsdivalpro ex 500 mg in afternoon and 1000 mg in eveningLat uda 50 mg dailysee meds for mixed anxiety and depressive disorder Mixed anxi ety and depressive disorder 842970459 F41.8 citalopram 10 mg dailytrazo done 50 mg at hshydroxyz ine 50 mg q8h prnamitrip tyline 10 mg at hssee meds for schizoaffe ctive disorder [id number] SHAISTA LUJAN PA-C [facility] on [address] [place] [address] 04/23/2021 16:28:13 04/27/2021 13:13:44 Recurrent falls 184603854 R29.6 PT/OT Type 2 johnny betes mellitus without complication 323090109 E11.9 Monitor sugars and adjust meds prnOn EMILIE-I for renal protection Morbid obesity 064077403 E66.01 Outpatient f/u with PCP Essential hypertension 10095093 I10 Monitor BPs and adjust meds prn Hypothyroidism 88294312 E03.9 Consider TSH Obstructiv e sleep apnea syndrome 93374825 G47.33 Needs CPAP Migraine 77238066 G43.90 9 f/u prn Schizoaffe ctive disorder, bipolar type 14224861 F25.0 Consider psych consult Tobacco de pendence syndrome 97033316 F17.200 Counseled 5 minutes on the importance of cessation; not interested in quitting Chronic ob structive pulmonary disease 45303794 J44.9 inhalersf/ u prn Depressive disorder 3548 9007 F32.A No SI/HI/AH/V H Chronic constipation 236 784461 K59.09 scheduled and prn bowel medsf/u prn Vitamin D deficiency 347 28773 E55.9 RepletingO utpatient f/u prn Insomnia c o-occurrent and due to medical condition 4814607577 9105 G47.01 Melatonin Gastroesop hageal reflux disease without esophagitis 352051638 K21.9 Not on medsMonito r and f/u prn Liver enzy mes level above reference range 552446776 R74.01 Normal LFTs on recent labs Coronary arteriosclerosis 44215067 I25.10 Statinclar jonas of supposed to be on ASANot on B-delia Moderate p ersistent asthma 572628343 J45.40 as above Allergic rhinitis 472365 04 J30.9 f/u prn Edema of l ower extremity 138647977 R60.0 f/u prn Advance care planning 71 2315037 Z71.89 Met with patient, who is her own decision-messi wilson, in her room. Reviewed each section of the MOLST and answered questions to her satisfacti on. Form completed, signed, and orders written to reflect the following: Full code with all interventi ons. Total time spent 18 minutes [id number] [facility] on [address] [place] [address] 04/26/2021 14:30:31 05/13/2021 12:50:11 Recurrent falls 723208463 R29.6 PT/OT eval and txsafety precaution s Type 2 johnny betes mellitus without complication 501776448 E11.9 lispro sliding scalelantu s QHSmonitor for s/s of hyper/hypo glycemiaOn EMILIE-I for renal protection Morbid obesity 501109859 E66.01 Outpatient f/u with PCPencoura ge weight loss Essential hypertension 40834706 I10 atenolol 50mg dailylisin opril 10mg qhsMonitor BPs and adjust meds prn Hypothyroidism 77857991 E03.9 monitor TSH prnlevothy roxine 137mcg daily Obstructiv e sleep apnea syndrome 29547858 G47.33 CPAP qhsmonitor sleep pattern Migraine 42159536 G43.90 9 monitor for s/sAPAP prn Schizoaffe ctive disorder, bipolar type 07356296 F25.0 amytripyli ne 10mg qhscitalop cammie 10mg dailyprazo sin 5mg qhsmonitor mood and behaviorps [facility] prn Tobacco de pendence syndrome 21241326 F17.200 encourage cessation Chronic ob structive pulmonary disease 15337609 J44.9 inhalersf/ u prn Moderate p ersistent asthma 780206687 J45.40 monitor resp statusmoni tor labs prn Depressive disorder 3548 9007 F32.A amytripyli ne 10mg qhscitalop cammie 10mg dailyprazo sin 5mg qhsmonitor mood and behaviorps [facility] prn Chronic constipation 236 969362 K59.09 has been experienci ng bouts of diarrheamo nitor bowel pattern Vitamin D deficiency 347 70748 E55.9 monitor levels prn Insomnia c o-occurrent and due to medical condition 7318523588 9105 G47.01 Melatoninm onitor sleep pattern Gastroesop hageal reflux disease without esophagitis 250603663 K21.9 Not on medsmonito r for GI s/s Liver enzy mes level above reference range 563368278 R74.01 Normal LFTs on recent labsmonito r labs prn Coronary arteriosclerosis 71498376 I25.10 atorvastat in 20mg qhsclarify of supposed to be on ASA - ? Allergic rhinitis 627818 04 J30.9 f/u prnmonitor for s/s Edema of l ower extremity 576069447 R60.0 follow weights [id number] Becka Zafar MD [facility] on [address] [place] [address] 04/27/2021 12:32:27 05/13/2021 13:08:56 Recurrent falls 990333932 R29.6 Very deconditio deepika.Needs PT/OT for strengthen ing, balance, gait training, safety and function.C ontinue fall precaution s.Monitor for safety. Morbid obesity 099144900 E66.01 Z68.43 As above. Essential hypertension 48792784 I10 Good control on lasix 40 mg qd, prazosin 5 mg qd and lisinopril 10 mg qd.Monitor BP and labs. Hypothyroidism 52125096 E03.8 Continue levothyrox ine 137 mcg qd.Monitor TSH yearly. Obstructiv e sleep apnea syndrome 10196898 G47.33 Needs CPAP, will see if we can arrange Migraine 17266905 G43.80 9 No current sxs.Amitri pyline and depakote can both be used for prophylaxi s for this, but is primarily on them for mood stabilizer s.Monitor for sxs. Schizoaffe ctive disorder, bipolar type 34515659 F25.0 Continue citalopram 10 mg qd, amitriptyl ine 10 mg qhs, Seroquel 400 mg qhs, Melatonin 5 mg qhs,Latuda 60 mg qam, Depakote 500 mg po q 12 pm and 1000 mg qhs, and Cogentin 1 mg BID.Monito r mood and behaviors. Psych consult Tobacco de pendence syndrome 95076272 F17.210 Not interested in quittingCo ntinue to encourage cessation. Chronic ob structive pulmonary disease 79806156 J43.8 At baseline.C ontinue Singulair 10 mg qd, Symbicort 160-4.5 mcg 2 puffs BID, Spiriva 18 mcg qd and albuterol MDI 2 puffs q 4 hrs prn.Montio r resp. status. Moderate p ersistent asthma 448557859 J45.40 as above. Depressive disorder 3548 9007 F33.1 As above. Chronic constipation 236 031307 K59.09 Continue scheduled and prn bowel medsMonito r bowel function. Vitamin D deficiency 347 32885 E56.8 Continue Vit D 2000 IU qd.Monitor levels. Gastroesop hageal reflux disease without esophagitis 764042386 K21.9 No current sxs on no medsMonito r and f/u prn Coronary arteriosclerosis 34478479 I25.10 Continue meds as above and atorvastat in 20 mg qd.Conside r addition of cardioprot ective meds as above and also ASA and beta delia.Mo nitor for sxs.F/U with cardio as planned. Allergic rhinitis 440915 04 J30.89 Continue singulair as above.Meme tor sxs Edema of l ower extremity 325417869 R60.0 Continue lasix and lisinopril as above.Meme tor Type 2 johnny betes mellitus 94462703 E11.65 Will restart humulin SSI, will increase dose to compare more closely with previous humalog dose, but not restarting premeal humalog yet.Increa se lantus from 40U to 52U.Contin ue glimepirid e 4 mg qd.Conside r adding GLP-1 or SGLT-2 both for better blood sugar control and cardioprot ective effect.Mon itor accuchecks QIDEncoura ge healthy eating and physical activity. Chronic back pain 960149 002 M54.59 Continue APAP and tramadol as above.F/U with pain clinic as planned.Co ntinue to encourage wt. loss and physical activity. Cholelithi asis without obstruction 61596443 K80.20 Not a candidate for elective surgery per surgeon.Co ntinue tramadol 50 mg BID prn and APAP 650 mg q 6 hrs prn.Monito r sxs. [id number] SHAISTA LUJAN PA-C [facility] on [address] [place] [address] [id number] 3 04/28/2021 13:49:24 05/13/2021 14:05:59 Acute urinary tract infection 473390150 N39.0 U/A not overly impressive Will decrease [...] prn Uncontroll ed type 2 diabetes mellitus 099157441 E11.65 Sugars globally elevatedAd d hs fingerstic k with correction al insulinInc rease Lantus from 40 ux qhs to 52 ux qhs (based on total coverage 24 ux x 24 hours at 50%)-given body habitus, might benefit from divided dosingMoni tor sugars and adjust meds prnOn EMILIE-I for renal protection Diarrhea 10003071 R19.7 Hold scheduled bowel meds for loose stoolsCola ce changed from scheduled to prn yesterdayd /c Imodium after 1 week [id number] SHAISTA LUJAN PA-C [facility] on [address] [place] [address] 85748-407 3 04/29/2021 12:50:48 05/13/2021 14:30:13 Acute urinary tract infection 736522091 N39.0 Resistant to BactrimLik ellie colonized with E. coli rather than true UTI; however, will finish treating-d /c Bactrim-st art macrobid 100 mg po bid x 5 days for simple UTI-benefi ts of abx outweigh risks of non-treatm ent in this patient-no need to extend probiotic since low-risk c-diff with nitrofuran toinMonito r and f/u prn Uncontroll ed type 2 diabetes mellitus 347507105 E11.65 Lantus increased yesterdayM onitor sugars and adjust meds prnOn EMILIE-I for renal protection [id number] Verenice Cid [facility] on [address] [place] [address] 21958-449 3 05/05/2021 12:24:28 05/14/2021 09:59:59 Anxiety 64664908 F41.9 pt reporting anxiety and states she has order for prn seroquel at home; found in home medsholdin g off on seroquel now as she had frequent falls at homeadding hydroxyzin e 25mg po bid prnmonitor for effectmoni tor mood and behaviorps [facility] [id number] SHAISTA LUJAN PA-C [facility] on [address] [place] [address] [id number] 3 05/12/2021 16:16:13 05/14/2021 11:26:53 Uncontrolled type 2 diabetes mellitus 386236514 E11.65 Consider split-dose basal insulinMon itor sugars and adjust meds prnOn EMILIE-I for renal protection Recurrent falls 06847357 2 R29.6 PT/OT Chronic ob structive pulmonary disease 37013559 J44.9 continue inhalersf/ u prn Health Concerns Section Related Observation LastModified by Organization Detai ls LastModified Time None Recorded Concern Status LastModified by Organization Details LastModified Time None Recorded Advance Directives Directive Y: Payers Encounter Date Sequence Insurance Name Policy Number Policy Weston Covered Member ID Weston Member ID Guarantor Name 04/27/2021 1 [place] [facility] Elle Lopez [id number] Elle Lopez 04/28/2021 1 [place] [facility] [id number] Elle Lopez 04/29/2021 1 [place] [facility] Elle Lopez [id number] Elle Lopez 05/05/2021 1 [place] [facility] Elle Lopez [id number] Elle Lopez 05/12/2021 1 [place] [facility] Elle Lopez [id number] Elle Lopez Notes Date Note Type Note [...] remdesivir and dexamethasone. She presented to the [facility] ED on 04/22 due to frequent falls. [...] knee pain, has had steroid injections through [facility] pain clinic. Most recently SI joint injection in 01/2021.Since here she has been participating with rehab, but is limited by pain and fatigue.Her PMH includes HTN, uncontrolled AODM (QhG1D04.6), CHF, s/p COVID 02/2020, asthma, bipolar disorder, schizoaffective disorder, anxiety, PTSD, unsteady gait, migraines, ADHD, morbid obesity, MORGAN on CPAP, hypothyroidism, DM, hypertension, chronic back pain-s/p SI joint injections, with cholelithiasis-not surgical candidate per surgeon-being txed with tramadol, and frequent falls. Becka Zafar MD [address] [place] [address], [address], [place], [address], Scan 05/05/2021 21:44:55 04/28/2021 text/html Pt seen for [...] pain. No f/c/s. SHAISTA LUJAN PA-C [address], [address], [place], [address], Scan 04/28/2021 14:37:05 04/29/2021 text/html Pt seen for acut e rounding visit today for UTI. Pt with dysuria earlier this week at which time she was commenced on Bactrim by . Diabetes meds adjusted yesterday (see note for details.) Pt denies dysuria, hematuria, back/abd/flank pain, f/c/s. SHAISTA LUJAN PA-C [address], [address], [place], [address], [employer] 04/29/2021 13:36:17 05/05/2021 text/html Elle is juan luisin linden seen for an acute rounding visit today. Elle is stating that she is experiencing anxiety. She reports having seroquel prn at home but not here. Will trial hydroyzine 25mg bid prn and monitor for effect. Would hold off for now on adding prn seroquel as she was with frequent falls at home. Verenice santiago [employer] 05/05/2021 12:35:21 05/12/2021 text/html Pt seen today [...] PTSD; Umbilical hernia; Hx patella fx; Hx IA; Hx tubal ligation; Hx knee surgery; Hx [...] edema; Hx UTI Hospital Patient Received From: [facility] ED Attending MD: Dr. Cooper Goodson/Shaista Lujan PA-C Medications Started at [facility]: Nystatin powder; Bactrim; Imodium; Diflucan; Probiotic; Macrobid; Hydroxyzine Medications Discontinued at [facility] & Why: Imodium (non-use); Bactrim (Ucx [...] am by [employer]-registered Shaista Lujan PA-C NPI# [id number]; Last MD visit 04/27/21; shelter for medication management and reconciliation and teaching; [...] liquids Activity: wheelchair SHAISTA LUJAN PA-C [address], [address], [place], [address], [facility] [employer] 05/12/2021 16:58:12 OBGyn Episode No OBEpisode recorded.
--- OUTSIDE RECORDS SUMMARY | 2024-07-16 15:21 | XMS_ITS | Encounter Summary ---
Author Organization [email or web address] Address [address] [facility] 7t [place] [address] Care Team Providers Care Harness Repairer Name Role Phone Toyin Pollard Primary Care Provider Satish Brennan MD Unavailable Jacob Morrow Unavailable [phone] Nicolasa Escobar MD Unavailable Shen Davis MD Unavailable [phone] Encounter Details Date Type Department Care Team (Late st Contact Info) Description 06/15/2022 Orders Only [facility] [address] [place] [address] Ellyn Chery LPN Social History Tobacco Use [...] - [facility] [address] [place] [address] Toyin Pollard FNP 505 [place] [address] 09/23/2024 11:00 AM EDT Telemedicine [facility] MED & PEDS [address] [place] [address] Margret Hector, RN [address] [place] [address] documented as of this encounter Visit Diagnoses Not on filedocumented in this encounter Care Teams Harness Repairer Relationship Specialty Start Date End Date Toyin Pollard FNP 230 [place] [address] PCP - General Family Medicine 01/11/21 Satish Brennan MD [address] [place] [address] Endocrinology 02/22/24 Jacob Morrow 5 [place] [address] Pulmonary Disease 02/22/24 Nicolasa Escobar MD [address] [place] [address] Dr [facility] [address] [place] [address] Neurology 02/22/24 Shen Davis MD [address] [place] [address] Nephrology 02/22/24 Ellyn Connolly Litigation SpecialistForge Operator 08/17/23 [facility] 01/11/24 01/21/24 [facility] 01/11/24 documented as of this encounter
--- OUTSIDE RECORDS SUMMARY | 2024-07-16 15:21 | XMS_ITS | Encounter Summary ---
Author Organization [employer] Address 75 [facility] 7[address] [place] [address] Care Team Providers Care Loader Technician Name Role Phone Toyin Pollard Primary Care Provider Satish Brennan MD Unavailable [phone] Jacob Morrow Unavailable [phone] Nicolasa Escobar MD Unavailable Shen Davis MD Unavailable [phone] Reason for Visit * Reason Onset Date Comments PT1 11/02/2022 Encounter Details Date Type Department Care Team (Late st Contact Info) Description 11/02/2022 Telephone [facility] [address] [place], [place] [phone] Toyin Pollard FNP [address] [place], [place] [phone] PT1 Social History Tobacco Use Types Packs/Day [...] with better life requesting a PT1 Location: [facility] Specialty: Provider or clinic appts Date&Time:n/A Shag Truck Driver:N/a documented in this encounter Plan of Treatment Upcoming Encounters Date Type Department Care Team (Late st Contact Info) Description 08/05/2024 10:30 AM EDT Office Visit [facility] MED & PEDS 505 [place] [address] Toyin Pollard FNP 505 [place] [address] 09/23/2024 11:00 AM EDT Telemedicine [facility] MED & PEDS 505 [place] [address] Margret Hector, RN 505 [place] [address] documented as of this encounter Visit Diagnoses Not on filedocumented in this encounter Additional Health Concerns Assessment Noted Time PHQ-9 Depression Total Score: 0 09/29/19 23 2:03 PM EDT documented as of this encounter Care Teams Loader Technician Relationship Specialty Start Date End Date Toyin Pollard FNP [address] [place] [address] PCP - General Family Medicine 01/11/21 Satish Brennan MD [address] [place] [address] Endocrinology 02/22/24 Jacob Morrow 5 [place] [address] Pulmonary Disease 02/22/24 Nicolasa Escobar MD [address] [place] [address] [place] [address] Neurology 02/22/24 Shen Davis MD [address] [place] [address] Nephrology 02/22/24 Ellyn Connolly CioHydroelectric Production Technician 08/17/23 [facility] 01/11/24 01/21/24 [facility] 01/11/24 documented as of this encounter
--- OUTSIDE RECORDS SUMMARY | 2024-07-16 15:21 | XMS_ITS | Encounter Summary ---
Author Organization [email or web address] Address 75 [facility] 7t [place] [address] Care Team Providers Care Blankmaker Name Role Phone Toyin Pollard Primary Care Provider [phone] Satish Brennan MD Unavailable Jacob Morrow Unavailable [phone] Nicolasa Escobar MD Unavailable [phone] Shen Davis MD Unavailable [phone] Reason for Visit * Reason Onset Date Comments ER Follow-up 06/06/2023 Encounter Details Date Type Department Care Team (Late st Contact Info) Description 06/06/[address] [facility] MEDICINE 230 [place] [address] Toyin Pollard FNP 505 [place], [place] [phone] ER Follow-up Social History Tobacco Use Types [...] provided by ED. Pt requested appt at [place] and scheduled pt with Dr. Franko Monet for 06/11 at 3:45 pm. Pt verbalized understanding and agreement with plan. * Telephone Encounter - Joseph Lopez - 06/06/2023 3:51 PM EDT Patient calling to report ED visit on : Date: 06/04 Hospital: [facility] Seen for: COPD and bronchitis Patient advised will forward to team nurse for follow up documented in this encounter Plan of Treatment Upcoming Encounters Date Type Department Care Team ([facility] st Contact Info) Description 08/05/2024 10:30 AM EDT Office Visit [facility] MED & PEDS 505 [place], [place] [phone] Toyin Pollard FNP 505 [place] [address] 09/23/2024 11:00 AM EDT Telemedicine [facility] MED & PEDS [address] [place], [place] [phone] Margret Hector, RN [address] [place], [place] documented as of this encounter Goals [...] documented as of this encounter Care Teams Blankmaker Relationship Specialty Start Date End Date Toyin Pollard FNP 230 [place] [address] PCP - General Family Medicine 01/11/21 Satish Brennan MD [address] [place] [address] Endocrinology 02/22/24 Jacob Morrow 5 [place] [address] Pulmonary Disease 02/22/24 Nicolasa Escboar MD [address] [place] [address] [place] [address] Neurology 02/22/24 Shen Davis MD [address] [place] [address] Nephrology 02/22/24 Ellyn Connolly Senior Risk ManagerArt Tracer 08/17/23 [facility] 10/24/24 11/3/24 [facility] 01/11/24 documented as of this encounter
--- OUTSIDE RECORDS SUMMARY | 2024-07-16 15:21 | XMS_ITS | Encounter Summary ---
Author Organization [employer] Address [address] [facility] 7t [place] [address] Care Team Providers Care Crime Lab Technician Name Role Phone Toyin Pollard Primary Care Provider Satish Brennan MD Unavailable Jacob Morrow Unavailable [phone] Nicolsaa Escobar MD Unavailable Shen Davis MD Unavailable [phone] Reason for Visit * Reason Onset Date Comments Hospital Follow-up 09/19/2022 Encounter Details Date Type Department Care Team (Late st Contact Info) Description 09/19/2022 Telephone [facility] MEDICINE 230 [place] [address] Toyin Pollard FNP [address] [place], [place] [phone] Hospital Follow-up Social History Tobacco Use Types [...] a HDF appt. Pt was admitted at [facility] on 09/08/22 and discharged on 09/16/22. Pt was diagnosed with pneumonia. Please contact dionisio at [phone] documented in this encounter Plan of Treatment Upcoming Encounters Date Type Department Care Team (Late st Contact Info) Description 08/05/2024 10:30 AM EDT Office Visit [facility] MED & PEDS 505 [place] [address] Toyin Pollard FNP [address] [place] [address] 09/23/2024 11:00 AM EDT Telemedicine [facility] MED & PEDS 505 [place] [address] Margret Hector RN 505 [place], [place] [phone] documented as of this encounter Visit Diagnoses Not on filedocumented in this encounter Care Teams Crime Lab Technician Relationship Specialty Start Date End Date Toyin Pollard FNP [address] [place] [address] PCP - General Family Medicine 01/11/21 Satish Brennan MD [address] [place] [address] Endocrinology 02/22/24 Jacob Morrow 5 [place] [address] Pulmonary Disease 02/22/24 Nicolasa Escobar MD [address] [place] [address] [place] [address] Neurology 02/22/[address] [place] [address] Nephrology 02/22/24 Ellyn Connolly Spray StainerWater Mechanic 08/17/23 [facility] 01/11/24 01/21/24 [facility] 01/11/24 documented as of this encounter
--- OUTSIDE RECORDS SUMMARY | 2024-07-16 15:21 | XMS_ITS | Encounter Summary ---
Author Organization [employer] Address [address] [facility] 7t [place] [address] Care Team Providers Care Compressor Station Chief Engineer Name Role Phone Toyin Pollard Primary Care Provider Satish Brennan MD Unavailable [phone] Jacob Morrow Unavailable [phone] Nicolasa Escobar MD Unavailable [phone] Shen Davis MD Unavailable [phone] Reason for Visit * Reason Onset Date Comments Referral 01/08/2024 Encounter Details Date Type Department Care Team ([facility] st Contact Info) Description 01/08/2024 Telephone [facility] MEDICINE [address] [place] [address] Toyin Pollard FNP [address] [place], [place] [phone] Referral Social History Tobacco Use Types Packs/Day [...] - 01/08/2024 2:01 PM EDT Tc from [facility] Jennifer from [facility] . Amanda indicates they will process the referral for mpt therapy. documented in this encounter Plan of Treatment Upcoming Encounters Date Type Department Care Team ([facility] st Contact Info) Description 08/05/2024 10:30 AM EDT Office Visit [facility] MED & PEDS 505 [place] [address] Toyin Pollard FNP [address] [place] [address] 09/23/2024 11:00 AM EDT Telemedicine [facility] MED & PEDS [address] [place] [address] Margret Hector, RN 505 [place] [address] documented as of this encounter Goals Goal [...] documented as of this encounter Care Teams Compressor Station Chief Engineer Relationship Specialty Start Date End Date Toyin Pollard FNP [address] [place] [address] PCP - General Family Medicine 01/11/21 Satish Brennan MD [address] [facility] [address] [facility] 104 [place] [address] Endocrinology 02/22/24 Jacob Morrow 5 [place] [address] Pulmonary Disease 02/22/24 Nicolasa Escobar MD [address] [place] [address] Neurology 02/22/24 Shen Davis MD [address] [facility] [address] [facility] [address] [facility] 302 [place] [address] Nephrology 02/22/24 Ellyn Connolly Engraver SealsStarter Mechanic 08/17/23 [facility] 01/11/24 01/21/24 [facility] 01/11/24 documented as of this encounter
--- OUTSIDE RECORDS SUMMARY | 2024-07-16 15:22 | XMS_ITS | Encounter Summary ---
Author Organization [employer] Address [address] [facility] 7t [place] [address] Care Team Providers Care Lambskin Trimmer Name Role Phone Toyin Pollard LOUIE Primary Care Provider Satish Brennan MD Unavailable [phone] Jacob Morrow Unavailable [phone] Nicolasa Escobar MD Unavailable Shen Davis MD Unavailable [phone] Reason for Visit * Reason Comments Med Refill Encounter Details Date Type Department Care Team ([facility] st Contact Info) Description 08/24/2023 Refill [facility] MEDICINE 230 [place], [place] [phone] Agustina Toribio MD 230 [place], [place] [phone] Social History Tobacco Use Types Packs/Day Years [...] the past 12 months, has t he [employer], gas, oil or water company threatened to [...] [facility] 505 [place] [address] Toyin Pollard FNP 505 [place] [address] 09/23/2024 11:00 AM EDT Telemedicine [facility] MED & PEDS 505 [place] [address] aMrgret Hector, MINA 505 [place] [address] documented as of this encounter Goals Goal [...] documented as of this encounter Care Teams Lambskin Trimmer Relationship Specialty Start Date End Date Phalen, Toyin, APPLICATIONS SUPPORT ENGINEER [address] [place] [address] PCP - General Family Medicine 01/11/21 Satish Brennan MD [address] [place] [address] Endocrinology 02/22/24 Jacob Morrow [address] [facility] [place] [address] Pulmonary Disease 02/22/24 Nicolasa Escobar MD [address] [place] [address] [address] Neurology 02/22/24 Shen Davis MD [address] [place] [address] Nephrology 02/22/24 Ellyn Connolly Souvenir AssemblerPrint Buyer 08/17/23 [facility] 01/11/24 01/21/24 [facility] 01/11/24 documented as of this encounter
--- OUTSIDE RECORDS SUMMARY | 2024-07-16 15:22 | XMS_ITS | Encounter Summary ---
Author Organization [employer] Address [address] [facility] 7t [place] [address] Care Team Providers Care Jig Fitter Name Role Phone Toyin Pollard LOUIE Primary Care Provider Satish Brennan MD Unavailable Jacob Morrow Unavailable [phone] Nicolasa Escobar MD Unavailable [phone] Shen Davis MD Unavailable [phone] Encounter Details Date Type Department Care Team ([facility] st Contact Info) Description 07/15/2024 Orders Only [facility] MED & PEDS 505 [place], [place] [phone] Francisco Javier Fields MD 505 [place], [place] [phone] Social History Tobacco Use Types Packs/Day Years [...] the past 12 months, has t he [employer], gas, oil or water [employer] threatened to shut off services in your [...] [facility] MED & PED[facility] 505 [place] [address] Toyin Pollard FNP 505 [place] [address] 09/23/2024 11:00 AM EDT Telemedicine [facility] MED & PEDS 505 [place] [address] Margret Hector, MINA 505 [place] [address] Pending Results Name Type Priority Associated Diagnoses Date /Time Culture, Urine, Routine Microbiology Routine 07/15/2024 12:00 AM EDT documented as of this encounter Goals Goal Patient Goal Type Associated Problems Recent Progress Patient-Stated? Author Hemoglobin A1c < 7 Result Component 6.4(08/02/2023 4:30 PM EDT) No Michelle Alegria, PharmD documented as of this encounter Procedures Procedure Name Priority Date/Time Associated Diagnosis Comments CULTURE, URINE, ROUTINE Routine 07/15/2024 12:00 AM EDT documented in this encounter Visit Diagnoses Not on filedocumented in this encounter Additional Health Concerns Assessment Noted Time PHQ-9 Depression Total Score: 13 024 4:37 PM EDT documented as of this encounter Care Teams Jig Fitter Relationship Specialty Start Date End Date Toyin Pollard FNP 230 [place] [address] PCP - General Family Medicine 01/11/21 Satish Brennan MD [address] [place] [address] Endocrinology 02/22/24 Jacob Morrow 5 [place] [address] Pulmonary Disease 02/22/24 Nicolasa Escobar MD [address] [place] [address] [address] [place] [address] [place] [address] Neurology 02/22/24 Shen Davis MD [address] [place] [address] Nephrology 02/22/24 Ellyn Connolly Corporate Law SpecialistLive Ammunition Inspector 08/17/23 [facility] 01/11/24 documented as of this encounter
--- OUTSIDE RECORDS SUMMARY | 2024-07-16 15:22 | XMS_ITS | Encounter Summary ---
Author Organization [employer] Address [address] [facility] 7t [place] [address] Care Team Providers Care Machine Shop Worker Name Role Phone Toyin Pollard Primary Care Provider [phone] Satish Brennan MD Unavailable Jacob Morrow Unavailable [phone] Nicolasa Escobar MD Unavailable [phone] Shen Davis MD Unavailable [phone] Reason for Visit * Reason Onset Date Comments Nurse Triage 03/08/2023 Encounter Details Date Type Department Care Team (Late st Contact Info) Description 03/08/2023 Telephone [facility] MEDICINE [address] [place], [place] [phone] Toyin Pollard FNP [address] [place], [place] [phone] Nurse Triage Social History Tobacco Use Types Packs/Day Years Used Date Smoking Tobacco: Former Cigarettes Smokeless Tobacco: Never Alcohol Use Standard Drinks/Week Comments Never 0 (1 standard drink = 0.6 oz pur e alcohol) Depression Answer Date Recorded Patient Health Questionnaire-9 Score 0 09/28/2022 Housing Stability Answer Date Recorded What is your housing situation today? I have csearseble andersen 01/02/[address] you [...] Upcoming Encounters Date Type Department Care Team ([facility] st Contact Info) Description 08/05/2024 10:30 AM EDT Office Visit [facility] MED & PEDS [address] [place] [address] Toyin Pollard FNP [address] [place] [address] 09/23/2024 11:00 AM EDT Telemedicine [facility] MED [facility] [address] [place] [address] Margret Hector RN 505 [place] [address] documented as of this encounter Goals Goal [...] documented as of this encounter Care Teams Machine Shop Worker Relationship Specialty Start Date End Date Toyin Pollard FNP [address] [place] [address] PCP - General Family Medicine 01/11/21 Satish Brennan MD [address] [place] [address] Endocrinology 02/22/24 Jacob Morrow 5 [place] [address] Pulmonary Disease 02/22/24 Nicolasa Escobar MD [address] [place] [address] Dr Kameron [address] [place] [address] Neurology 02/22/24 Shen Davis MD [address] [facility] [address] [place] [address] Nephrology 02/22/24 Ellyn Connolly Fuel Efficient Aircraft DesignerProduction Laborer 08/17/23 [facility] 01/11/24 01/21/24 [facility] 01/11/24 documented as of this encounter
--- OUTSIDE RECORDS SUMMARY | 2024-07-16 15:22 | XMS_ITS | Encounter Summary ---
Author Organization [employer] Address [address] [facility] 7t [place] [address] Care Team Providers Care Direct Sales Representative Name Role Phone Toyin Pollard Primary Care Provider [phone] Satish Brennan MD Unavailable Jacob Morrow Unavailable [phone] Nicolasa Escobar MD Unavailable Shen Davis MD Unavailable [phone] Reason for Visit * Reason Comments Med Refill Encounter Details Date Type Department Care Team ([facility] st Contact Info) Description 07/06/2024 Refill [facility]EDS [address] [place], [place] [phone] Toyin Pollard FNP [address] [place], [place] [phone] Migraine without status migrainosus, not intractable, unspecified [...] [facility] [address] [place] [address] Toyin Pollard FNP [address] [place] [address] 09/23/2024 11:00 AM EDT [facility]medicine [facility] [address] [place] [address] Margret Hector, RN [address] [place] [address] documented as of this encounter Goals Goal [...] documented as of this encounter Care Teams Direct Sales Representative Relationship Specialty Start Date End Date Toyin Pollard FNP [address] [place] [address] PCP - General Family Medicine 01/11/21 Satish Brennan MD [address] [place] [address] Endocrinology 02/22/24 Jacob Morrow 5 [place] [address] Pulmonary Disease 02/22/24 Nicolasa Escobar MD [address] [place] [address] Neurology 02/22/24 Shen Davis MD [address] [place] [address] Nephrology 02/22/24 Ellyn Connolly Stone Circular SawyerCrown Assembly Machine Set Up Mechanic 08/17/23 [facility] 01/11/24 documented as of this encounter
--- OUTSIDE RECORDS SUMMARY | 2024-07-16 15:22 | XMS_ITS | Encounter Summary ---
Author Organization [employer] Address [address] [facility] 7t [place] [address] Care Team Providers Care Physician Chief Of Pathology Name Role Phone Toyin Pollard Primary Care Provider Satish Brennan MD Unavailable [phone] Jacob Morrow Unavailable [phone] Nicolasa Escobar MD Unavailable Shen Davis MD Unavailable [phone] Reason for Visit * Reason Onset Date Comments Durable Medical Equipment 02/19/2024 Encounter Details Date Type Department Care Team (Late st Contact Info) Description 02/19/2024 Telephone [facility] MEDICINE [address] [place], [place] [phone] Toyin Pollard FNP [address] [place], [place] [phone] Durable Medical Equipment Social History Tobacco Use [...] Ivory LPN - 02/20/2024 10:21 AM EST Front Edger did see Rx was sent to [phone] pt has current RX no need for updates, abstract writer Parisa at number below. However no answer and mail box full . Pt has appt tomorrow pt should discussthis need sending to PCP as FYI . Tc from [facility] ([facility]) requesting a new order for pt to be sent over for Poise sanitary pads , adult diapers oversized . Any questions please get in contact with [facility] at the callback number above. Callback [phone] * Telephone Encounter - Christina Paul - 02/19/2024 3:28 PM EST Tc from [facility] ([facility]) requesting a new order for pt to be sent over for Poise sanitary pads , adult diapers oversized . Any questions please get in contact with [facility] at the callback number above. Callback [phone] documented in this encounter Plan of Treatment Upcoming Encounters Date Type Department Care Team ([facility] st Contact Info) Description 08/05/2024 10:30 AM EDT Office Visit [facility] MED & PEDS [address] [place] [address] Toyin Pollard FNP [address] [place] [address] 09/23/2024 11:00 AM EDT Telemedicine [facility] MED & PEDS [address] [place] [address] Margret Hector, MINA [address] [place], [place] documented as of this encounter Goals [...] documented as of this encounter Care Teams Physician Chief Of Pathology Relationship Specialty Start Date End Date Toyin Pollard FNP [address] [place] [address] PCP - General Family Medicine 01/11/21 Satish Brennan MD [address] [place] [address] Endocrinology 02/22/24 Jacob Morrow 5 [place] [address] Pulmonary Disease 02/22/24 Nicolasa Escobar MD [address] [place] [address] [place] [address] Neurology 02/22/24 Shen Davis MD [address] [place] [address] Nephrology 02/22/24 Ellyn Connolly Nuclear Medicine OfficerScientific Investigator 08/17/23 [facility] 01/11/24 documented as of this encounter
--- OUTSIDE RECORDS SUMMARY | 2024-07-16 15:22 | XMS_ITS | Encounter Summary ---
Author Organization [employer] Address [address] [facility] 7t [place] [address] Care Team Providers Care Rn First Assistant Name Role Phone Toyin Pollard Primary Care Provider Satish Brennan MD Unavailable Jacob Morrow Unavailable [phone] Nicolasa Escobar MD Unavailable [phone] Shen Davis MD Unavailable [phone] Reason for Visit * Reason Onset Date Comments Record Request 07/11/2024 Lab Orders 07/11/2024 Encounter Details Date Type Department Care Team ([facility] st Contact Info) Description 07/11/2024 Telephone [facility] MED [facility]S [address] [place], [place] [phone] Toyin Pollard FNP [address] [place], [place] [phone] Record Request; Lab Orders Social History Tobacco [...] 07/11/2024 11:58 AM EDT [facility] for urine. RN explained they did not need the lab slip and they could just bring in the urine and they said he home health nurse was requesting it. RN asked if they had the urine sample and they stated they were not able to get it yet and the nurse was going to the [facility] home tomorrow. RN faxed lab slip for UA. documented in this encounter Plan of Treatment Upcoming Encounters Date Type Department Care Team (Late st Contact Info) Description 08/05/2024 10:30 AM EDT Office Visit [facility] MED & PEDS [address] [place] [address] Toyin Pollard FNP [address] [place] [address] 09/23/2024 11:00 AM EDT Telemedicine [facility] MED & PEDS [address] [place], [place] [phone] Margret Hector RN 505 [place] [address] documented as of this encounter Goals Goal [...] documented as of this encounter Care Teams Rn First Assistant Relationship Specialty Start Date End Date Toyin Pollard FNP [address] [place] [address] PCP - General Family Medicine 01/11/21 Satish Brennan MD [address] [place] [address] Endocrinology 02/22/24 Jacob Morrow 5 [place] [address] Pulmonary Disease 02/22/24 Nicolasa Escobar MD [address] [place] [address] [place] [address] Neurology 02/22/24 Shen Davis MD [address] [facility] [place] [address] Nephrology 02/22/24 Ellyn Connolly Cyber Systems AdministratorHouse Mover Supervisor 08/17/23 [facility] 01/11/24 documented as of this encounter
--- OUTSIDE RECORDS SUMMARY | 2024-07-16 15:22 | XMS_ITS | Encounter Summary ---
Author Organization [employer] Address [address] [place] [address] 7t [place] [address] Care Team Providers Care Client Finance Analyst Name Role Phone Toyin Pollard Primary Care Provider Satish Brennan MD Unavailable Jacob Morrow Unavailable [phone] Nicolasa Escobar MD Unavailable Shen Davis MD Unavailable [phone] Encounter Details Date Type Department Care Team (Late st Contact Info) Description 04/20/2022 Orders Only [facility] MED[facility] [address] [place] [address] Patrica Grimaldo LPN Social History Tobacco Use [...] [facility] [address] [place] [address] Toyin Pollard FNP [address] [place] [address] 09/23/2024 11:00 AM EDT Telemedicine [facility] MED & PEDS [address] [place] [address] Margret Hector, RN [address] [place] [address] documented as of this encounter Visit Diagnoses Not on filedocumented in this encounter Care Teams Client Finance Analyst Relationship Specialty Start Date End Date Toyin Pollard FNP [address] [place] [address] PCP - General Family Medicine 01/11/21 Satish Brennan MD [address] [place] [address] Endocrinology 02/22/24 Jacob Morrow 5 [place] [address] Pulmonary Disease 02/22/24 Nicolasa Escobar MD [address] [place] [address] [address] Neurology 02/22/24 Shen Davis MD [address] [place] [address] Nephrology 02/22/24 Ellyn Connolly Pitch GathererPayroll Assistant 08/17/23 [facility] 01/11/24 01/21/24 [facility] 01/11/24 documented as of this encounter
--- OUTSIDE RECORDS SUMMARY | 2024-07-16 15:22 | XMS_ITS | Data Portability ---
[facility] Address [address] [place] [id number] Assessment No assessment recorded. Plan of Treatment Reminders Order Date Submit Date Provider Last Modified By Organization Details Last Modified Time Details Appointments None recorded . Lab thyroid panel, serum 2016 017 [facility], [address] [place], [address], 7 12:52:40 lipid panel, serum 2016 017 [facility], [address] [place], [address], 7 12:52:40 CMP, serum or plasma 2016 017 [facility], [address] [place], [address], 7 12:52:41 CBC w/ auto diff 2016 017 [facility], [address] [place], [address], 7 12:52:41 urinalys is, complete 2016 017 [facility], [address] [place], [address], 7 12:52:42 RPR (rapid plasma reagin), serum 2016 017 [facility], [address] [place], [address], 7 12:52:42 HIV (1+2) Ab, rapid, unspecif ied specimen 2016 017 [facility] In-House Test, For Internal Use Only, Do Not Delete/merge, [address] 7 15:14:46 Referral gynecolo gist referral 2016 017 [email or web address] Not available 7 13:35:43 cardiolo gist referral 2016 017 [email or web address] Not available 7 11:17:59 Procedures None recorded . Surgeries None recorded . Imaging None recorded . Medication Orders clonidin e HCl 0.2 mg tablet [address], [address] [place], [address], 7 13:07:06 clonidin e HCl 0.1 mg tablet [address], [address] [place], [address], 7 13:07:06 atenolol 50 mg tablet 2016 017 [facility], [address] [place], [address], 7 13:10:09 cycloben zaprine 10 mg tablet 2016 017 [facility], [address], [place], [address], 7 17:10:12 tramadol 50 mg tablet 2016 017 [facility], [address] [place], [address], 7 07:59:06 levothyr oxine 75 mcg tablet 2016 017 [facility]FACE [facility], [address] [facility], [place], [address], 13:10:09 Patient TargetsNo targets recorded. 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 Referral for Gy necologic examination Referring Physician: Andrés Phan, Internal Medicine, Encounter Date: 04/20/2016 Culinary Artist Referral for Hy pothyroidism Referring Physician: Andrés Phan, Internal Medicine, Encounter Date: 04/20/2016 Results Created Date Observation Date Name Description Value Unit Range Abnormal Flag Note LastModifiedBy Organization Detail LastModifiedTime 05/24/19 17 05/24/2016 thyro id panel , serum T3 uptake 34 % 22-35 normal Not Available [facility] [address] [place], [address], 05/24/2016 12:52:40 05/24/19 17 05/24/2016 thyro id panel , serum T4 (thyroxine), total 5.4 mcg/d L 4.5-12 .0 normal Not Available [facility] [address] [place], [address], 05/24/2016 12:52:40 05/24/19 17 05/24/2016 thyro id panel , serum free T4 index (T7) 1.8 1.4-3. 8 normal Not Available [facility] [address] [place], [address], 05/24/2016 12:52:40 05/24/19 17 05/24/2016 thyro id panel , serum TSH 16.59 mIU/L high Refer ence Range > or = 20 Years 0.40- 4.50 Pregn ting Range s First trime ster 0.26- 2.66 Secon d trime ster 0.55- 2.73 Third trime ster 0.43- 2.91 Not Available [facility] [address] [place], [address], 05/24/2016 12:52:40 05/24/19 17 05/24/2016 lipid panel , serum cholesterol, total 201 mg/dL 125-20 0 high Not Available [facility] [address] [place], [address], 05/24/2016 12:52:40 05/24/19 17 05/24/2016 lipid panel , serum HDL cholesterol 47 mg/dL > or = 46 normal Not Available [facility] [address] [place], [address], 05/24/2016 12:52:40 05/24/19 17 05/24/2016 lipid panel , serum triglyceride s 173 mg/dL <150 high Not Available [facility] [address] [place], [address], 05/24/2016 12:52:40 05/24/1905/24/2016 lipid panel , serum LDL-choleste rol 119 mg/dL _(romana c) <130 normal Phil able range <100 mg/dL for patie nts with CHD or diabe adam and <70 mg/dL for diabe tic patie nts with known heart disea se. Not Available [facility] [place], [address], 05/24/2016 12:52:40 05/24/19 17 05/24/2016 lipid panel , serum chol/HDLC ratio 4.3 (calc ) < or = 5.0 normal Not Available [facility] [address] [place], [address], 05/24/2016 12:52:40 05/24/19 17 05/24/2016 lipid panel , serum non HDL cholesterol 154 mg/dL _(romana c) normal Targe t for non-H DL blaine stero l is 30 mg/dL highe r than LDL blaine stero l targe t. Not Available [facility] [address] [place], [address], 05/24/2016 12:52:40 05/24/19 17 05/24/2016 CMP, serum or plasm a glucose 100 mg/dL 65-99 high Fasti ng refer ence inter shayy Not Available [facility] [address] [place] [address], [address], 05/24/2016 12:52:41 05/24/19 17 05/24/2016 CMP, serum or plasm a urea nitrogen (BUN) 12 mg/dL 7-25 normal Not Available [facility] [address], [address], 05/24/2016 12:52:41 05/24/19 17 05/24/2016 CMP, serum or plasm a creatinine 0.74 mg/dL 0.50-1 .10 normal Not Available [facility] [address] [place] [address], [address], 05/24/2016 12:52:41 05/24/19 17 05/24/2016 CMP, serum or plasm a eGFR non-afr. citizen [place] 98 mL/mi n/1.7 3m2 > or = 60 normal Not Available [facility] [address] [place] [address] [place], [address], 05/24/2016 12:52:41 05/24/19 17 05/24/2016 CMP, serum or plasm a eGFR 113 mL/mi n/1.7 3m2 > or = 60 normal Not Available [facility] [address] [place] [address] [place], [address], 05/24/2016 12:52:41 05/24/19 17 05/24/2016 CMP, serum or plasm a BUN/creatini ne ratio NOT APPLIC ABLE (calc ) 6-22 Not Available [facility] [address] [place], [address], 05/24/2016 12:52:41 05/24/19 17 05/24/2016 CMP, serum or plasm a sodium 136 mmol/ L 135-14 6 normal Not Available [address], [address], 05/24/2016 12:52:41 05/24/19 17 05/24/2016 CMP, serum or plasm a potassium 4.4 mmol/ L 3.5-5. 3 normal Not Available [address], [address], 05/24/2016 12:52:41 05/24/19 17 05/24/2016 CMP, serum or plasm a chloride 101 mmol/ L 98-110 normal Not Available [address], [address], 05/24/2016 12:52:41 05/24/19 17 05/24/2016 CMP, serum or plasm a carbon dioxide 22 mmol/ L 20-[address] [facility] [address] [place] [address], [address], 05/24/2016 12:52:41 05/24/19 17 05/24/2016 CMP, serum or plasm a calcium 9.3 mg/dL 8.6-10 .2 normal Not Available [address], [address], 05/24/2016 12:52:41 05/24/19 17 05/24/2016 CMP, serum or plasm a protein, total 7.0 g/dL 6.1-8. 1 normal Not Available [address], [address], 05/24/2016 12:52:41 05/24/19 17 05/24/2016 CMP, serum or plasm a albumin 4.0 g/dL 3.6-5. 1 normal Not Available [facility] [address] [place], [address], 05/24/2016 12:52:41 05/24/19 17 05/24/2016 CMP, serum or plasm a globulin 3.0 g/dL_ (calc ) 1.9-3. 7 normal Not Available [facility] [address] [place] [address] [place], [address], 05/24/2016 12:52:41 05/24/19 17 05/24/2016 CMP, serum or plasm a albumin/glob ulin ratio 1.3 (calc ) 1.0-2. 5 normal Not Available [facility] [address] [place] [address] [place], [address], 05/24/2016 12:52:41 05/24/19 17 05/24/2016 CMP, serum or plasm a bilirubin, total 0.3 mg/dL 0.2-1. 2 normal Not Available [facility] [address] [place] [address] [place], [address], 05/24/2016 12:52:41 05/24/19 17 05/24/2016 CMP, serum or plasm a alkaline phosphatase 55 U/L 33-115 normal Not Available [facility] [address] [place] [address] [place], [address], 05/24/2016 12:52:41 05/24/19 17 05/24/2016 CMP, serum or plasm a AST 15 U/L 10-35 normal Not Available [facility] [address] [place] [address] [place], [address], 05/24/2016 12:52:41 05/24/19 17 05/24/2016 CMP, serum or plasm a ALT 13 U/L 6-29 normal Not Available [facility] [address] [place] [address] [place], [address], 05/24/2016 12:52:41 05/24/19 17 05/24/2016 CBC w/ auto diff white blood cell count 9.1 thous and/u L 3.8-10 .[address] [facility] [address] [place] [address], [address], 05/24/2016 12:52:41 05/24/19 17 05/24/2016 CBC w/ auto diff red blood cell count 4.78 radha on/uL 3.80-5 .[address] [facility] [address] [place] [address], [address], 05/24/2016 12:52:41 05/24/19 17 05/24/2016 CBC w/ auto diff hemoglobin 13.8 g/dL 11.7-1 5.[address] [facility] [address] [place] [address], [address], 05/24/2016 12:52:41 05/24/19 17 05/24/2016 CBC w/ auto diff hematocrit 42.7 % 35.0-4 5.[address] [facility] [address] [place] [address], [address], 05/24/2016 12:52:41 05/24/19 17 05/24/2016 CBC w/ auto diff MCV 89.5 fL 80.0-1 [address] [facility] [address] [place] [address], [address], 05/24/2016 12:52:41 05/24/19 17 05/24/2016 CBC w/ auto diff MCH 28.9 pg 27.0-3 3.[address] [facility] [address] [place] [address], [address], 05/24/2016 12:52:41 05/24/19 17 05/24/2016 CBC w/ auto diff MCHC 32.3 g/dL 32.0-3 6.0 normal Not Available [address] [place], [address], 05/24/2016 12:52:41 05/24/19 17 05/24/2016 CBC w/ auto diff RDW 13.7 % 11.0-1 5.0 normal Not Available [address], [address], 05/24/2016 12:52:41 05/24/19 17 05/24/2016 CBC w/ auto diff platelet count 305 thous and/u L 140-40 [address] [facility] [address] [place] [address], [address], 05/24/2016 12:52:41 05/24/19 17 05/24/2016 CBC w/ auto diff MPV 10.6 fL 7.5-12 .5 normal Not Available [address], [address], 05/24/2016 12:52:41 05/24/19 17 05/24/2016 CBC w/ auto diff absolute neutrophils 5369 cells /uL 1500-[address] [facility] [address] [place] [address], [address], 05/24/2016 12:52:41 05/24/19 17 05/24/2016 CBC w/ auto diff absolute lymphocytes 2739 cells /uL 850-39 [address] [facility] [address] [place] [address], [address], 05/24/2016 12:52:41 05/24/19 17 05/24/2016 CBC w/ auto diff absolute monocytes 510 cells /uL 200-95 0 normal Not Available [facility] [address] [place] [address], [address], 05/24/2016 12:52:41 05/24/19 17 05/24/2016 CBC w/ auto diff absolute eosinophils 400 cells /uL 15-500 normal Not Available [facility] [address] [place], [address], 05/24/2016 12:52:41 05/24/19 17 05/24/2016 CBC w/ auto diff absolute basophils 82 cells /uL 0-200 normal Not Available [address], [address], 05/24/2016 12:52:41 05/24/19 17 05/24/2016 CBC w/ auto diff neutrophils 59.0 % normal Not Available [address], [address], 05/24/2016 12:52:41 05/24/19 17 05/24/2016 CBC w/ auto diff lymphocytes 30.1 % normal Not Available [address], [address], 05/24/2016 12:52:41 05/24/19 17 05/24/2016 CBC w/ auto diff monocytes 5.6 % normal Not Available [address], [address], 05/24/2016 12:52:41 05/24/19 17 05/24/2016 CBC w/ auto diff eosinophils 4.4 % normal Not Available [address], [address], 05/24/2016 12:52:41 05/24/19 17 05/24/2016 CBC w/ auto diff basophils 0.9 % normal Not Available [facility] [address], [address], 05/24/2016 12:52:41 05/24/1905/24/2016 urina lysis , compl ete color YELLOW yellow normal Not Available [facility] [address], [address], 05/24/2016 12:52:42 05/24/19 17 05/24/2016 urina lysis , compl ete appearance CLEAR clear normal Not Available [place] [address] [place], [address], 05/24/2016 12:52:42 05/24/19 17 05/24/2016 urina lysis , compl ete specific gravity 1.020 1.001- 1.035 normal Not Available [address] [place], [address], 05/24/2016 12:52:42 05/24/19 17 05/24/2016 urina lysis , compl ete pH 6.0 5.0-8. 0 normal Not Available [facility] [address] [place] [address] [place], [address], 05/24/2016 12:52:42 05/24/19 17 05/24/2016 urina lysis , compl ete glucose NEGATI VE negati ve normal Not Available [address] [place], [address], 05/24/2016 12:52:42 05/24/19 17 05/24/2016 urina lysis , compl ete bilirubin NEGATI VE negati ve normal Not Available [address] [place], [address], 05/24/2016 12:52:42 05/24/19 17 05/24/2016 urina lysis , compl ete ketones NEGATI VE negati ve normal Not Available [facility] [place] [address] [place], [address], 05/24/2016 12:52:42 05/24/19 17 05/24/2016 urina lysis , compl ete occult blood 2+ negati ve abnormal Not Available [place] [address] [place], [address], 05/24/2016 12:52:42 05/24/19 17 05/24/2016 urina lysis , compl ete protein NEGATI VE negati ve normal Not Available [address], [address], 05/24/2016 12:52:42 05/24/19 17 05/24/2016 urina lysis , compl ete nitrite NEGATI VE negati ve normal Not Available [address], [address], 05/24/2016 12:52:42 05/24/19 17 05/24/2016 urina lysis , compl ete leukocyte esterase NEGATI VE negati ve normal Not Available [address], [address], 05/24/2016 12:52:42 05/24/19 17 05/24/2016 urina lysis , compl ete WBC 0-5 /hpf < or = 5 normal Not Available [address], [address], 05/24/2016 12:52:42 05/24/19 17 05/24/2016 urina lysis , compl ete RBC 0-2 /hpf < or = 2 normal Not Available [address], [address], 05/24/2016 12:52:42 05/24/19 17 05/24/2016 urina lysis , compl ete squamous epithelial cells 0-5 /hpf < or = 5 Not Available [facility] [address], [address], 05/24/2016 12:52:42 05/24/19 17 05/24/2016 urina lysis , compl ete bacteria NONE SEEN /hpf none seen normal Not Available [address] [place], [address], 05/24/2016 12:52:42 05/24/19 17 05/24/2016 urina lysis , compl ete hyaline cast NONE SEEN /lpf none seen normal Not Available [facility] [address] [place], [address], 05/24/2016 12:52:42 05/24/19 17 05/24/2016 RPR (rapi [...] ented for this patie nt. Not Available [facility] [address] [place], [address], 05/24/2016 12:52:42 05/24/19 17 05/24/2016 RPR titer RPR titer 1:1 high Not Available [facility] [address] [place], [address], 05/24/2016 12:52:43 Result Notes None recorded. Problems Name Problem SNOMED Code Status Onset Date Resolution Date Notes Provider Name and Address Organization Details Recorded Time Adult health examination Active 2013 USER: [email or web address] Not Available [facility] 4 11:20:28 Problem Notes None recorded. Procedures Surgical History Date Name Laterality Status Provider Name and Address Organization Details Recorded Time 7 HEDIS 1125F Pain Present completed [facility] 04/20/2016 10:46:03 7 HEDIS 3077F Systolic > or equal to 140 mm Hg completed [facility] 04/20/2016 10:46:06 7 HEDIS 3080F Diastolic > or equal to 90 mm Hg completed [facility] 04/20/2016 10:46:09 Tubal Ligation completed [facility] 04/20/2016 10:43:38 Hernia Repair completed [facility] 04/20/2016 10:43:44 Imaging Results None recorded. Procedure [...] Address Organization Details Last Updated DateTime 7 279287. 58 g 98 [degF] 165.1 cm 39.8 kg/m2 97 /min 17 /min 166 mm[Hg] 131 mm[Hg] 147 mm[Hg] 117 mm[Hg] 156 mm[Hg] 117 mm[Hg] Radha Ivory [facility] 7 12:24:38 Date Recorded Pain severity - 0-10 verbal numeric rating [Score] - Reported Provider Name and Address Organization Details Last Updated DateTime 04/20/2016 6 Not Available [facility] 8 06:22:32 Social History Question Answer Notes LastModified by Organizat ion Details LastModified Time Tobacco Smoking Status Current Every Day Smoker Radha santiago [facility] 04/20/2016 10:37:28 What Is Your Level Of Alcohol Consumption? None [email or web address] Information not available 04/20/2016 What Is Your Level Of Caffeine Consumption? None [email or web address] Information not available 04/20/2016 Are You Currently Employed? No [email or web address] Information not available 04/20/2016 What Type Of Diet Are You Following? CARDIAC Information not available 04/20/2016 Do You Have A Directive To Physicians? Yes [email or web address] Information not available 04/20/2016 Education 8 Information no t available 04/20/2016 What Is Your Occupation? No [email or web address] Information not available 04/20/2016 Have You Been Exposed To Chemicals Or Toxins? No [email or web address] Information not available 04/20/2016 Have You Been Exposed To Heavy Metals? No [email or web address] Information not available 04/20/2016 Are There Any Guns Present In Your Home? No Information not available 04/20/2016 Hard Of Hearing Or Deaf In One Or Both Ears? No [email or web address] Information not available 04/20/2016 High Blood Pressure Yes [email or web address] Information not available 04/20/2016 High Cholesterol Yes [email or web address] Informat ion not available 04/20/2016 HIV Risk Factors No [email or web address] Informat ion not available 04/20/2016 Legally Blind In One Or Both Eyes? No [email or web address] Information no t available 04/20/2016 Live Alone Or With Others? With Others [email or web address] Information not available 04/20/2016 Have You Recently Traveled To Any Other Country In [place]? No [email or web address] Information not available 04/20/2016 If Yes, During This Travel Have You Been Exposed To Mosquitoes Bites? No [email or web address] Information not available 04/20/2016 Have You Experienced Any Two Of The Following Symptoms? No [email or web address] Information not available 04/20/2016 Rash No [email or web address] Information no t available 04/20/2016 Conjuctivitis No [email or web address] Information not available 04/20/2016 Low Grade Fever No [email or web address] Informati on not available 04/20/2016 Muscle Pain No rtxzucc32 Information n ot available 04/20/2016 Number Of Sexual Partners 1 [email or web address] Information not available 04/20/2016 Have You Ever Been Tested For HIV? Yes 2 Months Ago Negative [email or web address] Information not available 04/20/2016 Have You Had A Fall In The Past (6) Months? No [email or web address] Information not available 04/20/2016 Have You Ever Had A Fall That Resulted In Broken Bone? Yes croooxz09 Information not available 04/20/2016 Do You Have A Problem With Your Balance? Yes [email or web address] Information not available 04/20/2016 Do You Get Dizzy When You Stand Up Quickly? Yes Information not available 04/20/2016 Do You Have A Problem Wth Your Memory? Yes ciqxekp88 Information not available 04/20/2016 Marital Status Informatio n not available 04/20/2016 How Many Children Do You Have? 7 [email or web address] Information not available 04/20/2016 Do You Use Protection During Sex? No [email or web address] Information not available 04/20/2016 Difficulty Reading? Yes [email or web address] Information not available 04/20/2016 What Is Your Relationship Status? Information not available 04/20/2016 Seat Belts Used Routinely No Information not available 04/20/2016 Are You Sexually Active? Yes [email or web address] Information not available 04/20/2016 Sexual Partner Has HIV? No gymomjv41 Information not available 04/20/2016 Number Of Sexual Partners 1 [email or web address] Information not available 04/20/2016 Sexual Partner Uses IV Drugs? No xepkvhh41 Information not available 04/20/2016 Smoke Alarm In Home No nzyfujz86 Information not available 04/20/2016 At What Age Did You Start Smoking Tobacco? 14 npruebf27 Information not available 04/20/2016 Are You Passively Exposed To Smoke? Yes swcdbjo51 Information no t available 04/20/2016 How Much Tobacco Do You Smoke? 0.25 PPD [email or web address] Information not available 04/20/2016 General Stress Level High Information not available 04/20/2016 How Many Years Have You Smoked Tobacco? 32 luizrdh58 Information not available 04/20/2016 Difficulty Watching TV? No dklpeel85 Information not available 04/20/2016 Have You Used IV Drugs? No qnmucfx35 Information not available 04/20/2016 Have You Recently (within The Last 12 Weeks, Or During A Current ) Traveled To Or Lived In A [place]-affected Area? No pvjrjtu71 Information not available 04/20/2016 Sex: Unknown Functional Status Question Answer Note LastModified by Organizat ion Details LastModified Time Do you have difficulty walking or climbing stairs? No tovwium54 Information not available 04/20/[address]y [address] at night? No ltmvwne78 Information no t available 04/20/2016 Do you have difficulty doing errands alone? Yes [email or web address] Information not available 04/20/2016 Are you able to care for yourself? Yes lukyuwq61 Information not available 04/20/2016 Do you have difficulty dressing or bathing? No oxiaonw80 Information not available 04/20/2016 What is your exercise level? Occasional [email or web address] Information not available 04/20/2016 Mental Status Question Answer Note LastModified by Organization D etails LastModified Time Do you have difficulty concentrating, remembering or making decisions? Yes jqzeynx66 Information no t available 04/20/2016 Family History Relationship Description Onset Age of this Age Resolved Age Notes LastModified by Organization Details LastModified Time Maternal Grandfather Schizophreni a wrgidkz70 Not available 2016 10:36:19 Maternal Grandfather Asthma [email or web address] Not available 03/2016 10:36:56 Maternal Grandfather Heart disease [email or web address] Not available 2016 10:37:12 Maternal Grandmother Asthma [email or web address] Not available 03/2016 10:36:49 Maternal Grandmother Heart disease [email or web address] Not available 2016 10:37:18 Medical History No [...] SNOMED-CT Code Diagnosis ICD10 Code Diagnosis Note [id number] [facility] [address] [facility] [place] [address] 06/19/2013 00:00:00 [id number] Stephanie barrow MD [facility] Mental Health [address] [place] [address] 12/30/2015 08:10:23 12/30/2015 10:00:04 [id number] Stephanie barrow MD [facility] Mental Health [address] [place] [address] 01/29/2016 07:59:02 01/29/2016 15:25:39 [id number] Stephanie barrow MD [facility] Mental Health [address] [place] [address] 02/26/2016 07:43:57 02/26/2016 09:05:47 [id number] Tawanna Valera [facility] Mental Health [address] [place] [address] 03/28/2016 08:39:33 03/28/2016 11:20:24 [id number] Tawanna Valera [facility] Mental Health [address] [place] [address] [place] [address] 04/05/2016 09:00:14 04/05/2016 09:13:01 [id number] Andra_Ol ler_[facility] Mental Health [address] [place] [address] [place] [address] 04/12/2016 09:08:56 04/12/2016 10:07:05 [id number] Stephanie barrow MD [facility] Mental Health [address] [place] [address] [place] [address] 04/18/2016 08:32:39 04/18/2016 09:40:55 [id number] SAMARIA Treviño [facility] Mental Health [address] [place] [address] [place] [address] 04/18/2016 08:35:25 04/18/2016 09:11:18 [id number] Andrés Phan MD [facility] [address] [place] [address] 04/20/2016 10:04:27 04/20/2016 13:35:42 Essential hypertension 83105634 I10 Gynecologi c examination 27226852 Z01.419 Hypothyroidism 10108198 E03.9 [id number] Tawanna Valera [facility] Mental Health [address] [place] [address] 4 05/19/2016 09:13:23 05/20/2016 14:05:08 [id number] Beatriz_Ol ler_CM [facility] Mental Health [address] [place] [address] 4 05/19/2016 09:17:16 05/19/2016 09:56:41 [id number] Stephanie barrow MD [facility] Mental Health [address] [place] [address]87 4 05/23/2016 09:03:45 05/23/2016 10:08:42 [id number] Tawanna Valera [facility] Mental Health [address] [address] 4 06/07/2016 14:25:04 06/07/2016 15:23:36 Health Concerns Section Related Observation LastModified by Organization Detai ls LastModified Time None Recorded Concern Status LastModified by Organization Details LastModified Time None Recorded Advance Directives Directive None Recorded Payers Encounter Date Sequence Insurance Name Policy Number Policy Weston Covered Member ID Weston Member ID Guarantor Name 04/20/2016 [employer] (MOVED - BILLED) Elle Lopez [id number] Elle Lopez Notes Date Note Type Note Provider Name and Address Organization Details Recorded Time 04/20/2016 text/html the pt is here for check up she is part of [employer] Andrés Phan MD [address] [place], [address], [facility] 04/20/2016 13:11:30 OBGyn Episode No OBEpisode recorded.
--- OUTSIDE RECORDS SUMMARY | 2024-07-16 15:22 | XMS_ITS | Encounter Summary ---
Author Organization [employer] Address [address] [facility] 7t [place] [address] Care Team Providers Care Spot Man Name Role Phone Toyin Pollard Primary Care Provider Satish Brennan MD Unavailable [phone] Jacob Morrow Unavailable [phone] Nicolasa Escobar MD Unavailable Shen Davis MD Unavailable [phone] Reason for Visit * Reason Onset Date Comments Forms/questionnaires 03/03/2022 Encounter Details Date Type Department Care Team (Late st Contact Info) Description 03/03/2022 Telephone [facility] MEDICINE [address] [place] [address] Toyin Pollard FNP [address] [place], [place] [phone] Forms/questionnaires Social History Tobacco Use Types Packs/Day [...] PM EST Tc from Naye from [facility] requesting status on 485 form . States they have faxed several times since November and have not yet received back . Informs needs by 03/15/22 if not pt will be discharged from services. Best contact number [phone]. There fax number is [phone] . documented in this encounter Plan of Treatment Upcoming Encounters Date Type Department Care Team (Late st Contact Info) Description 08/05/2024 10:30 AM EDT Office Visit [facility] 505 [place] [address] Toyin Pollard FNP [address] [place] [address] 09/23/2024 11:00 AM EDT Telemedicine [facility] 505 [place] [address] Margret Hector RN 505 [place] [address] documented as of this encounter Visit Diagnoses Not on filedocumented in this encounter Care Teams Spot Man Relationship Specialty Start Date End Date Toyin Pollard FNP [address] [place] [address] PCP - General Family Medicine 01/11/21 Satish Brennan MD [address] [place] [address] Endocrinology 02/22/24 Jacob Morrow 5 [place] [address] Pulmonary Disease 02/22/24 Nicolasa Escobar MD [address] [place] [address] [place] [address] Neurology 02/22/24 Shen Davis MD [address] [place] [address] Nephrology 02/22/24 Ellyn Connolly Gasoline Pump InstallerPatent Lawyer 08/17/23 [facility] 01/11/24 01/21/24 [facility] 01/11/24 documented as of this encounter
--- OUTSIDE RECORDS SUMMARY | 2024-07-16 15:22 | XMS_ITS | Encounter Summary ---
Author Organization [employer] Address [address] [facility] 7t [place] [address] Care Team Providers Care Electronics Engineer Name Role Phone Toyin Pollard LOUIE Primary Care Provider [phone] Satish Brennan MD Unavailable Jacob Morrow Unavailable [phone] Nicolasa Escobar MD Unavailable Shen Davis MD Unavailable [phone] Encounter Details Date Type Department Care Team (Late st Contact Info) Description 07/09/2024 Orders Only [facility] MED & PEDS 505 [place], [place] [phone] Francisco Javier Fields MD 505 [place], [place] [phone] Stress incontinence of urine (Primary Dx) Social [...] [facility] 505 [place] [address] Toyin Pollard FNP 505 [place] [address] 09/23/2024 11:00 AM EDT Telemedicine [facility] 505 [place] [address] Margret Hector, MINA 505 [place] [address] documented as of this encounter Goals Goal Patient Goal Type Associated Problems Recent Progress Patient-Stated? Author Hemoglobin A1c < 7 Result Component 6.4(08/02/2023 4:30 PM EDT) No Michelle Alegria, PharmD documented as of this encounter Procedures Procedure Name Priority Date/Time Associated Diagnosis Comments URINALYSIS, COMPLETE, WITH REFLEX TO CULTURE Routine 07/15/2024 9:00 AM EDT Stress incontinence of urine documented in this encounter Results * (ABNORMAL) Urinalysis, Complete, with Reflex to Culture (07/15/2024 9:00 AM EDT) Color Urine Yellow [facility] Appearance Urine Turbid [facility] PH 6.0 5.0 - 9.0 [facility] Glucose Urine UA Negative Negative mg/dL [facility] Urine Blood Trace(A) Negative [facility] Specific [place] - Urine 1.015 1.005 - 1.025 [facility] Urine Protein 30 (1+)(A) Neg-Trace mg/dL [facility] Urine Ketones Negative Negative mg/dL [facility] Nitrite Urine Negative Negative [facility] Leukocyte Esterase Urine Large (3+)(A) Negative [facility] RBC Urine 11-20(A) 0 - 2 /HPF [facility] Urine WBC >50(A) 0 - 5 /HPF [facility] Urine Squamous Epithelial Cell 3-5 0 - 2 /HPF [facility] Other Crystals Urine Present [facility] Urine Bacteria 4+ None Seen [facility] Hyaline Casts, Urine 0-2 0 - 2 /LPF [facility] Urine 07/15/2024 9:00 AM EDT 07/15/2024 1:59 PM EDT Narrative [facility] - 07/15/2024 3:07 PM EDT [id number], Clean Catch us Francisco Javier Fields MD LAB URINE ORDERABLES Final Result [facility] [address] [place] [address] [phone] documented in this encounter Visit Diagnoses Diagnosis Stress incontinence of urine- Primary documented in this encounter Additional Health Concerns Assessment Noted Time PHQ-9 Depression Total Score: 13 05/15/2 024 4:37 PM EDT documented as of this encounter Care Teams Electronics Engineer Relationship Specialty Start Date End Date Toyin Pollard FNP [address] [place] [address] PCP - General Family Medicine 01/11/21 Satish Brennan MD [address] [place] [address] Endocrinology 02/22/24 Jacob Morrow 5 [place] [address] Pulmonary Disease 02/22/24 Nicolasa Escobar MD [address] [place] [address] 140 [place] [address] Neurology 02/22/24 Shen Davis MD [address] [place] [address] Nephrology 02/22/24 Ellyn Connolly Fruit Or Nut GrowerWelding Systems And Equipment Repairer 08/17/23 [facility] 01/11/24 documented as of this encounter
--- OUTSIDE RECORDS SUMMARY | 2024-07-16 15:22 | XMS_ITS | Encounter Summary ---
Author Organization [employer] Address [address] [facility] 7t [place] [address] Care Team Providers Care Computer Repair Technician Name Role Phone Toyin Pollard Primary Care Provider [phone] Satish Brennan MD Unavailable Jacob Morrow Unavailable [phone] Nicolasa Escobar MD Unavailable Shen Davis MD Unavailable [phone] Encounter Details Date Type Department Care Team (Late st Contact Info) Description 04/26/2022 Abstract [facility] MEDICINE [address] [place] [address] Toyin Pollard FNP 505 [place] [address] Social History Tobacco Use Types Packs/Day Years [...] Description 08/05/2024 10:30 AM EDT Office Visit [facility] & PEDS 505 [place], [place] [phone] Toyin Pollard FNP 505 [place], [place] [phone] 09/23/2024 11:00 AM EDT Telemedicine [facility] & PEDS 505 [place] [address] Margret Hector, RN [address] [place] [address] documented as of this encounter Visit Diagnoses Not on filedocumented in this encounter Care Teams Computer Repair Technician Relationship Specialty Start Date End Date Toyin Pollard FNP [address] [place] [address] PCP - General Family Medicine 01/11/21 Satish Brennan MD [address] [place] [address] Endocrinology 02/22/24 Jacob Morrow 5 [place] [address] Pulmonary Disease 02/22/24 Nicolasa Escobar MD [address] [place] [address] Dr [address] [place] [address] Neurology 02/22/24 Shen Davis MD [address] [place] [address] Nephrology 02/22/24 Ellyn Connolly Location ManProfessor/Nurse Anesthetist 08/17/23 [facility] 01/11/24 01/21/24 [facility] 01/11/24 documented as of this encounter
--- OUTSIDE RECORDS SUMMARY | 2024-07-16 15:22 | XMS_ITS | Encounter Summary ---
Author Organization [employer] Address 75 [facility] 7t [place] [address] Care Team Providers Care Bookkeeping Manager Name Role Phone Toyin Pollard Primary Care Provider Satish Brennan MD Unavailable [phone] Jacob Morrow Unavailable [phone] Nicolasa Escobar MD Unavailable [phone] Shen Davis MD Unavailable [phone] Reason for Visit * Reason Onset Date Comments Durable Medical Equipment 05/16/2024 Encounter Details Date Type Department Care Team (Late st Contact Info) Description 05/16/2024 Telephone [facility] 230 [place], [place] [phone] Toyin Pollard FNP 505 [place], [place] [phone] Durable Medical Equipment Social History Tobacco Use [...] [facility] 505 [place] [address] Toyin Pollard FNP 505 [place] [address] 09/23/2024 11:00 AM EDT Telemedicine [facility] 505 [place] [address] Margret Hector, MINA 505 [place] [address] documented as of this encounter Goals Goal [...] documented as of this encounter Care Teams Bookkeeping Manager Relationship Specialty Start Date End Date Toyin Pollard FNP 230 [place] [address] PCP - General Family Medicine 01/11/21 Satish Brennan MD [address] [place] [address] Endocrinology 02/22/24 Jacob Morrow 5 [place] [address] Pulmonary Disease 02/22/24 Nicolasa Escobar MD [address] [place] [address] Dr [facility] 140 [place] [address] Neurology 02/22/24 Shen Davis MD [address] [place] [address] Nephrology 02/22/24 Ellyn Connolly Explosives HandlerBellhop 08/17/23 [facility] 01/11/24 documented as of this encounter
--- OUTSIDE RECORDS SUMMARY | 2024-07-16 15:22 | XMS_ITS | Encounter Summary ---
Author Organization [employer] Address [address] [facility] 7t [place] [address] Care Team Providers Care Grocery Specialist Name Role Phone Toyin Pollard LOUIE Primary Care Provider Satish Brennan MD Unavailable [phone] Jacob Morrow Unavailable [phone] Nicolasa Escobar MD Unavailable [phone] Shen Davis MD Unavailable [phone] Reason for Visit * Reason Comments Med Refill Encounter Details Date Type Department Care Team (Late st Contact Info) Description 08/21/2023 Refill [facility] MEDICINE [address] [place], [place] [phone] Agustina Toribio MD 230 [place], [place] [phone] Social History Tobacco Use Types Packs/Day Years [...] the past 12 months, has t he [employer], gas, oil or water company threatened to [...] Description 08/05/2024 10:30 AM EDT Office Visit [facility] MED & PEDS 505 [place] [address] Toyin Pollard FNP 505 [place] [address] 09/23/2024 11:00 AM EDT Telemedicine [facility] & PEDS 505 [place] [address] Margret Hector, MINA 505 [place] [address] documented as of this encounter Goals Goal [...] documented as of this encounter Care Teams Grocery Specialist Relationship Specialty Start Date End Date Phalen, Toyin, AROMATHERAPIST [address] [place] [address] PCP - General Family Medicine 01/11/21 Satish Brennan MD [address] [place] [address] Endocrinology 02/22/24 Jacob Morrow [address] [place] [address] Pulmonary Disease 02/22/24 Nicolasa Escobar MD [address] [place] [address] [address] Neurology 02/22/24 Shen Davis MD [address] [place] [address] Nephrology 02/22/24 Ellyn Connolly Calculating Machine OperatorUser Experience Designer 08/17/23 [facility] 01/11/24 01/21/24 [facility] 01/11/24 documented as of this encounter
--- OUTSIDE RECORDS SUMMARY | 2024-07-16 15:22 | XMS_ITS | Encounter Summary ---
Author Organization [email or web address] Address 75 [facility] 7t [place] [address] Care Team Providers Care Hard Tile Setter Apprentice Name Role Phone JuddToyin barry LOUIE Primary Care Provider [phone] Satish Brennan MD Unavailable Jacob Morrow Unavailable [phone] Nicolasa Escobar MD Unavailable Shen Davis MD Unavailable [phone] Reason for Visit * Reason Onset Date Comments Appointment 12/27/2022 Encounter Details Date Type Department Care Team ([facility] st Contact Info) Description 12/27/2022 Telephone [facility] 230 [place], [place] [phone] Nestor Varela DDS 230 [place], [place] [phone] Appointment Social History Tobacco Use Types Packs/Day [...] [facility] MED & PEDS 505 [place] [address] Toyin Pollard FNP 505 [place] [address] 09/23/2024 11:00 AM EDT Telemedicine [facility] MED & PEDS 505 [place] [address] Margret Hector RN 505 [place] [address] documented as of this encounter Visit Diagnoses Not on filedocumented in this encounter Additional Health Concerns Assessment Noted Time PHQ-9 Depression Total Score: 0 09/29/19 23 2:03 PM EDT documented as of this encounter Care Teams Hard Tile Setter Apprentice Relationship Specialty Start Date End Date Toyin Pollard FNP 230 [place] [address] PCP - General Family Medicine 01/11/21 Satish Brennan MD [address] [place] [address] Endocrinology 02/22/24 Jacob Morrow 5 [place] [address] Pulmonary Disease 02/22/24 Nicolasa Escobar MD [address] [place] [address] [address] Neurology 02/22/24 Shen Davis MD [address] [place] [address] Nephrology 02/22/24 Ellyn Connolly Marine OilerDirector Of Sales 08/17/23 [facility] 01/11/24 01/21/24 [facility] 01/11/24 documented as of this encounter
--- OUTSIDE RECORDS SUMMARY | 2024-07-16 15:22 | XMS_ITS | Encounter Summary ---
Author Organization [employer] Address 75 [facility] 7t [place] [address] Care Team Providers Care Telesales Specialist Name Role Phone Toyin Pollard Primary Care Provider Satish Brennan MD Unavailable Jacob Morrow Unavailable [phone] Nicolasa Escobar MD Unavailable Shen Davis MD Unavailable [phone] Encounter Details Date Type Department Care Team (Late st Contact Info) Description 03/29/2023 Orders Only [facility] & PEDS [address] [place], [place] [phone] Maritza Daniel FNP [address] [place] [address] Social History Tobacco Use Types Packs/Day Years [...] [facility] 505 [place] [address] Toyin Pollard FNP 505 [place] [address] 09/23/2024 11:00 AM EDT Telemedicine [facility] 505 [place] [address] Margret Hector, RN 505 [place] [address] documented as of this encounter Goals Goal [...] documented as of this encounter Care Teams Telesales Specialist Relationship Specialty Start Date End Date Toyin Pollard FNP [address] [place] [address] PCP - General Family Medicine 01/11/21 Satish Brennan MD [address] [place] [address] Endocrinology 02/22/[address] [place] [address] Pulmonary Disease 02/22/24 Nicolasa Escobar MD [address] [place] [address] Dr [facility] 140 [place] [address] Neurology 02/22/24 Shen Davis MD [address] [place] [address] Nephrology 02/22/24 Ellyn Connolly Installers MechanicalBrass Cleaner 08/17/23 [facility] 01/11/24 01/21/24 [facility] 01/11/24 documented as of this encounter
--- OUTSIDE RECORDS SUMMARY | 2024-07-16 15:22 | XMS_ITS | Encounter Summary ---
Author Organization [employer] Address [address] [facility] 7t [place] [address] Care Team Providers Care Flight Engineer Manager Name Role Phone Toyin Pollard Primary Care Provider Satish Brennan MD Unavailable [phone] Jacob Morrow Unavailable [phone] Nicolasa Escobar MD Unavailable Shen Davis MD Unavailable [phone] Encounter Details Date Type Department Care Team (Late Contact Info) Description 05/24/2022 Abstract [facility] MEDICINE 230 [place] [address] Toyin Pollard FNP 505 [place], [place] [phone] Social History Tobacco Use Types Packs/Day Years [...] Upcoming Encounters Date Type Department Care Team ([facility] Contact Info) Description 08/05/2024 10:30 AM EDT Office Visit [facility] PEDS 505 [place] [address] Toyin Pollard FNP 505 [place] [address] 09/23/2024 11:00 AM EDT Telemedicine [facility] PEDS 505 [place] [address] Margret Hector, MINA [address] [place] [address] documented as of this encounter Visit Diagnoses Not on filedocumented in this encounter Care Teams Flight Engineer Manager Relationship Specialty Start Date End Date Toyin Pollard FNP [address] [place] [address] PCP - General Family Medicine 01/11/21 Satish Brennan MD [address] [place] [address] Endocrinology 02/22/24 Jacob Morrow 5 [place] [address] Pulmonary Disease 02/22/24 Nicolasa Escobar MD [address] [place] [address] Neurology 02/22/24 Shen Davis MD [address] [facility] 302 [place] [address] Nephrology 02/22/24 Ellyn Connolly Chief Communications OfficerMilk Truck Driver 08/17/23 [facility] 01/11/24 01/21/24 [facility] 01/11/24 documented as of this encounter
--- OUTSIDE RECORDS SUMMARY | 2024-07-16 15:22 | XMS_ITS | Clinical Summary ---
Author Organization [facility] Address [address] [facility] [address] [place] [address] Phone Care Team Providers Care Dictaphone Mechanic Name Role Phone Toyin Pollard LOUIE Primary Care Provider [phone] Social History Tobacco Use Types Packs/Day Years [...] Influenza Vaccine (Season Ended) 2024 Insurance [place] Care Teams Dictaphone Mechanic Relationship Specialty Start Date End Date Toyin Pollard FNP [address] [place] [address] PCP - General 09/13/22
--- OUTSIDE RECORDS SUMMARY | 2024-07-16 15:22 | XMS_ITS | Encounter Summary ---
Author Organization [employer] Address 75 [facility] 7t [place] [address] Care Team Providers Care Director Telecommunications Name Role Phone Toyin Pollard Primary Care Provider Satish Brennan MD Unavailable Jacob Morrow Unavailable [phone] Nicolasa Escobar MD Unavailable Shen Davis MD Unavailable [phone] Encounter Details Date Type Department Care Team (Late st Contact Info) Description 03/15/2022 Orders Only [facility] MED & PEDS 505 [place] [address] Ellyn Chery LPN Social History Tobacco Use [...] [facility] 505 [place] [address] Toyin Pollard FNP 505 [place] [address] 09/23/2024 11:[address] [facility] MED [facility] PEDS [address] [place] [address] Margret Hector, RN [address] [place] [address] documented as of this encounter Visit Diagnoses Not on filedocumented in this encounter Care Teams Director Telecommunications Relationship Specialty Start Date End Date Toyin Pollard FNP 230 [place] [address] PCP - General Family Medicine 01/11/21 Satish Brennan MD [address] [place] [address] Endocrinology 02/22/24 Jacob Morrow 5 [place] [address] Pulmonary Disease 02/22/24 Nicolasa Escobar MD [address] [place] [address] Dr [facility] 140 [place] [address] Neurology 02/22/24 Shen Davis MD [address] [place] [address] Nephrology 02/22/24 Ellyn Connolly Real Estate Office SupervisorAssisted Living Home Director 08/17/23 [facility] 01/11/24 01/21/24 [facility] 01/11/24 documented as of this encounter
--- OUTSIDE RECORDS SUMMARY | 2024-07-16 15:22 | XMS_ITS | Encounter Summary ---
Author Organization [employer] Address 75 [facility] 7t [place] [address] Care Team Providers Care Iso Coordinator Name Role Phone Toyin Pollard Primary Care Provider [phone] Satish Brennan MD Unavailable Jacob Morrow Unavailable [phone] Nicolasa Escobar MD Unavailable [phone] Shen Davis MD Unavailable [phone] Encounter Details Date Type Department Care Team (Late Contact Info) Description 07/13/2022 Orders Only [facility] MEDICINE [address] [place] [address] Toyin Pollard FNP 505 [place], [place] [phone] Social History Tobacco Use Types Packs/Day Years [...] Description 08/05/2024 10:30 AM EDT Office Visit [facility] MED & PEDS 505 [place], [place] [phone] Toyin Pollard FNP 505 [place], [place] [phone] 09/23/2024 11:00 AM EDT Telemedicine [facility] MED & PEDS 505 [place] [address] Margret Hector, RN [address] [place] [address] documented as of this encounter Visit Diagnoses Not on filedocumented in this encounter Care Teams Iso Coordinator Relationship Specialty Start Date End Date Toyin Pollard FNP [address] [place] [address] PCP - General Family Medicine 01/11/21 Satish Brennan MD [address] [place] [address] Endocrinology 02/22/24 Jacob Morrow 5 [place] [address] Pulmonary Disease 02/22/24 Nicolasa Escobar MD [address] [place] [address] Dr [facility] 140 [place] [address] Neurology 02/22/24 Shen Davis MD [address] [place] [address] Nephrology 02/22/24 Ellyn Connolly Pork Cutlet MakerCloud Software Engineer 08/17/23 [facility] 01/11/24 01/21/24 [facility] 01/11/24 documented as of this encounter
--- OUTSIDE RECORDS SUMMARY | 2024-07-16 15:22 | XMS_ITS | Encounter Summary ---
Author Organization [employer] Address 75 [facility] 7t [place] [address] Care Team Providers Care Home And Family Living Professor Name Role Phone JuddToyin barry LOUIE Primary Care Provider [phone] Satish Brennan MD Unavailable [phone] Jacob Morrow Unavailable [phone] Nicolasa Escobar MD Unavailable [phone] Shen Davis MD Unavailable [phone] Encounter Details Date Type Department Care Team (Late st Contact Info) Description 07/20/2023 Orders Only [facility] [address] [place], [place] [phone] Agustina Toribio MD 230 [place], [place] [phone] Hyperkalemia (Primary Dx) Social History Tobacco Use [...] [facility] 505 [place] [address] Toyin Pollard FNP 505 [place] [address] 09/23/2024 11:00 AM EDT Telemedicine [facility] MED & PEDS 505 [place] [address] Margret Hector, RN 505 [place] [address] Scheduled Orders Name Type Priority Associated Diagnoses [...] documented as of this encounter Care Teams Home And Family Living Professor Relationship Specialty Start Date End Date Toyin Pollard FNP 230 [place] [address] PCP - General Family Medicine 01/11/21 Satish Brennan MD [address] [place] [address] Endocrinology 02/22/24 Jacob Morrow 5 [place] [address] Pulmonary Disease 02/22/24 Nicolasa Escobar MD [address] [place] [address] [place] [address] Neurology 02/22/24 Shen Davis MD [address] [place] [address] Nephrology 02/22/24 Ellyn Connolly Pre Sales ArchitectGrease Refining Supervisor 08/17/23 [facility] 01/11/24 01/21/24 [facility] 01/11/24 documented as of this encounter
--- OUTSIDE RECORDS SUMMARY | 2024-07-16 15:22 | XMS_ITS | Encounter Summary ---
Author Organization [employer] Address 75 [facility] 7t [place] [address] Care Team Providers Care Silver Wrapper Name Role Phone Toyin Pollard Primary Care Provider [phone] Satish Brennan MD Unavailable Jacob Morrow Unavailable [phone] Nicolasa Escobar MD Unavailable Shen Davis MD Unavailable [phone] Encounter Details Date Type Department Care Team (Late st Contact Info) Description 04/26/2022 Abstract [facility] MEDICINE [address] [place] [address] Toyin Pollard FNP 505 [place] [address] Social History Tobacco Use Types Packs/Day Years [...] 08/05/2024 10:30 AM EDT Office Visit [facility]EDS 505 [place], [place] [phone] Toyin Pollard FNP 505 [place], [place] [phone] 09/23/2024 11:00 AM EDT Telemedicine [facility]S 505 [place] [address] Margret Hector, RN [address] [place] [address] documented as of this encounter Visit Diagnoses Not on filedocumented in this encounter Care Teams Silver Wrapper Relationship Specialty Start Date End Date Toyin Pollard FNP [address] [place] [address] PCP - General Family Medicine 01/11/21 Satish Brennan MD [address] [place] [address] Endocrinology 02/22/24 Jacob Morrow 5 [place] [address] Pulmonary Disease 02/22/24 Nicolasa Escobar MD [address] [place] [address] Dr Kameron 140 [place] [address] Neurology 02/22/24 Shen Davis MD [address] [place] [address] Nephrology 02/22/24 Ellyn Connolly Habitat Conservation PlannerPerinatal Social Worker 08/17/23 [facility] 01/11/24 01/21/24 [facility] 01/11/24 documented as of this encounter
--- OUTSIDE RECORDS SUMMARY | 2024-07-16 15:22 | XMS_ITS | Encounter Summary ---
Author Organization [employer] Address 75 [facility] 7t [place] [address] Care Team Providers Care Pipe Crew Foreman Name Role Phone Toyin Pollard Primary Care Provider [phone] Satish Brennan MD Unavailable Jacob Morrow Unavailable [phone] Nicolasa Escobar MD Unavailable Shen Davis MD Unavailable [phone] Reason for Visit * Reason Onset Date Comments PT1 01/30/2023 Encounter Details Date Type Department Care Team (Late st Contact Info) Description 01/30/2023 Telephone [facility] MEDICINE 230 [place], [place] [phone] Toyin Pollard FNP 505 [place], [place] [phone] PT1 Social History Tobacco Use Types Packs/Day [...] 03/27/2022 Time: 8:30 Visits: 5 Address: [address] [place] [address] [place] [facility] [place] Wheel Chair: Scooter and O2 Bag Repairer Needed: Yes 1 documented in this encounter Plan of Treatment Upcoming Encounters Date Type Department Care Team ([facility] st Contact Info) Description 08/05/2024 10:30 AM EDT Office Visit [facility] MED & PEDS 505 [place] [address] Toyin Pollard FNP 505 [place] [address] 09/23/2024 11:00 AM EDT Telemedicine [facility] MED & PEDS 505 [place] [address] Margret Hcetor, RN [address] [place] [address] documented as of this encounter Goals Goal [...] as of this encounter Care Teams Pipe Crew Foreman Relationship Specialty Start Date End Date Toyin Pollard FNP [address] [place] [address] PCP - General Family Medicine 01/11/21 Satish Brennan MD [address] [place] [address] Endocrinology 02/22/24 Jacob Morrow 5 [place] [address] Pulmonary Disease 02/22/24 Nicolasa Escobar MD [address] [place] [address] [facility] 140 [place] [address] Neurology 02/22/24 Shen Davis MD [address] [place] [address] Nephrology 02/22/24 Ellyn Connolly Wedger And GluerMonumental Stonemason 08/17/23 [facility] 01/11/24 01/21/24 [facility] 01/11/24 documented as of this encounter
--- OUTSIDE RECORDS SUMMARY | 2024-07-16 15:22 | XMS_ITS | Encounter Summary ---
Author Organization [employer] Address 75 [facility] 7t [place] [address] Care Team Providers Care High School Social Science Teacher Name Role Phone Toyin Pollard Primary Care Provider [phone] Satish Brennan MD Unavailable Jacob Morrow Unavailable [phone] Nicolasa Escobar MD Unavailable Shen Davis MD Unavailable [phone] Reason for Visit * Reason Comments Med Refill Encounter Details Date Type Department Care Team (Late st Contact Info) Description 04/12/2024 Refill [facility] MEDICINE 230 [place] [address] Toyin Pollard FNP 505 [place], [place] [phone] Long-term current use of opiate analgesic (Primary [...] 04/12/2024 5:16 PM EST Please schedule for MAKEUP EDITOR, thanks! documented in this encounter Plan of Treatment Upcoming Encounters Date Type Department Care Team (Late st Contact Info) Description 08/05/2024 10:30 AM EDT Office Visit [facility] MED & PEDS 505 [place] [address] Toyin Pollard FNP 505 [place] [address] 09/23/2024 11:00 AM EDT Telemedicine [facility] MED & PEDS 505 [place] [address] Margret Hector RN 505 [place] [address] documented as of this encounter Goals Goal [...] documented as of this encounter Care Teams High School Social Science Teacher Relationship Specialty Start Date End Date Toyin Pollard FNP 230 [place] [address] PCP - General Family Medicine 01/11/21 Satish Brennan MD 10 [facility] 104 [place] [address] Endocrinology 02/22/24 Jacob Morrow 5 [place] [address] Pulmonary Disease 02/22/24 Nicolasa Escobar MD [address] [place] [address] Dr [facility] 140 [place] [address] Neurology 02/22/24 Shen Davis MD 10 [facility] 302 [place] [address] Nephrology 02/22/24 Ellyn Connolly Bar AttendantService Now Developer 08/17/23 [facility] 01/11/24 documented as of this encounter
--- OUTSIDE RECORDS SUMMARY | 2024-07-16 15:22 | XMS_ITS | Encounter Summary ---
Author Organization [employer] Address 75 [facility] 7t [place] [address] Care Team Providers Care Synchronizer Name Role Phone Toyin Pollard Primary Care Provider [phone] Satish Brennan MD Unavailable Jacob Morrow Unavailable [phone] Nicolasa Escobar MD Unavailable [phone] Shen Davis MD Unavailable [phone] Reason for Visit * Reason Onset Date Comments PT1 08/19/2022 Encounter Details Date Type Department Care Team (Late st Contact Info) Description 08/19/2022 Telephone [facility] MEDICINE 230 [place] [address] Toyin Pollard FNP 505 [place], [place] [phone] PT1 Social History Tobacco Use Types Packs/Day [...] has correct home address but transportation doesn't. Milk Pasteurizer is resubmitting PT1. PT1 Date: Time: address:[address] [facility] specialty:PCP # visits: affiliate marketing specialist: yes Wheelchair: yes PT1 Date: Time: address: [address] [facility] specialty: Squeegee Operator # visits: affiliate marketing specialist:yes Wheelchair:yes PT1 Date: Time: address: [address] [facility] specialty: Baggage [place]/ Diabetes # visits: affiliate marketing specialist:yes Wheelchair:yes PT1 Date: Time: address:[address] [facility] specialty: Speech and hearing # visits: affiliate marketing specialist:yes Wheelchair:yes documented in this encounter Plan of Treatment Upcoming Encounters Date Type Department Care Team (Late st Contact Info) Description 08/05/2024 10:30 AM EDT Office Visit [facility] MED & PEDS 505 [place] [address] Toyin Pollard FNP 505 [place] [address] 09/23/2024 11:00 AM EDT Telemedicine [facility] MED & PEDS 505 [place] [address] Margret Hector, RN 505 [place] [address] documented as of this encounter Visit Diagnoses Not on filedocumented in this encounter Care Teams Synchronizer Relationship Specialty Start Date End Date Toyin Pollard FNP 230 [place] [address] PCP - General Family Medicine 01/11/21 Satish Brennan MD [address] [address] Endocrinology 02/22/24 Jacob Morrow 5 [facility] [place] [address] Pulmonary Disease 02/22/24 Nicolasa Escobar MD [address] [place] [address] [address] Neurology 02/22/24 Shen Davis MD [address] [place] [address] Nephrology 02/22/24 Ellyn Connolly Security AttendantFixer Supervisor 08/17/23 [facility] 01/11/24 01/21/24 [facility] 01/11/24 documented as of this encounter
--- OUTSIDE RECORDS SUMMARY | 2024-07-16 15:22 | XMS_ITS | Encounter Summary ---
Author Organization [employer] Address 75 [facility] 7t [place] [address] Care Team Providers Care Service Plumber Name Role Phone Toyin Pollard Primary Care Provider Satish Brennan MD Unavailable Jacob Morrow Unavailable [phone] Nicolasa Escobar MD Unavailable Shen Davis MD Unavailable [phone] Reason for Visit * Reason Onset Date Comments transportation needed 05/15/2024 Encounter Details Date Type Department Care Team (Late st Contact Info) Description 05/15/2024 Telephone [facility] MEDICINE 230 [place], [place] [phone] Toyin Pollard FNP 505 [place], [place] [phone] transportation needed Social History Tobacco Use Types [...] - 05/15/2024 2:22 PM EST TC from [facility] Scenery Builder to pt reports pt needing stretcher transportation for upcoming visit with [facility] 05/21/24 . Dev Technical Mgr believe they are requesting an ambulance service. documented in this encounter Plan of Treatment Upcoming Encounters Date Type Department Care Team (Late st Contact Info) Description 08/05/2024 10:30 AM EDT Office Visit [facility] MED & PEDS 505 [place] [address] Toyin Pollard FNP 505 [place] [address] 09/23/2024 11:00 AM EDT Telemedicine [facility] MED & PEDS 505 [place] [address] Margret Hector, RN 505 [place] [address] documented as of this encounter Goals Goal [...] documented as of this encounter Care Teams Service Plumber Relationship Specialty Start Date End Date Toyin Pollard FNP 230 [place] [address] PCP - General Family Medicine 01/11/21 Satish Brennan MD [address] [facility] [address] [facility] 104 [place] [address] Endocrinology 02/22/24 Jacob Morrow 5 [place] [address] Pulmonary Disease 02/22/24 Nicolasa Escobar MD [address] [place] [address] Dr Kameron 140 [place] [address] Neurology 02/22/24 Shen Davis MD [address] [facility] [address] [place] [address] Nephrology 02/22/24 Ellyn Connolly Ed TechHealthcare Consultant 08/17/23 [facility] 01/11/24 documented as of this encounter
--- OUTSIDE RECORDS SUMMARY | 2024-07-16 15:22 | XMS_ITS | Encounter Summary ---
Author Organization [employer] Address 75 [facility] 7t [place] [address] Care Team Providers Care Manager Shell Name Role Phone Toyin Pollard LOUIE Primary Care Provider [phone] Satish Brennan MD Unavailable [phone] Jacob Morrow Unavailable [phone] Nicolasa Escobar MD Unavailable Shen Davis MD Unavailable [phone] Encounter Details Date Type Department Care Team ([facility] Contact Info) Description 07/21/2022 Orders Only [facility] MED & PEDS 505 [place] [address] Ellyn Chery LPN Social History Tobacco Use [...] Upcoming Encounters Date Type Department Care Team ([facility] Contact Info) Description 08/05/2024 10:30 AM EDT Office Visit [facility] MED & PEDS 505 [place] [address] Toyin Pollard FNP 505 [place] [address] 09/23/2024 11:00 AM EDT Telemedicine [facility] MED & PEDS [address] [place] [address] Margret Hector, RN [address] [place] [address] documented as of this encounter Visit Diagnoses Not on filedocumented in this encounter Care Teams Manager Shell Relationship Specialty Start Date End Date Toyin Pollard FNP [address] [place] [address] PCP - General Family Medicine 01/11/21 Satish Brennan MD [address] [place] [address] Endocrinology 02/22/24 Jacob Morrow 5 [place] [address] Pulmonary Disease 02/22/24 Nicolasa Escobar MD [address] [place] [address] 140 [place] [address] Neurology 02/22/24 Shen Davis MD [address] [place] [address] Nephrology 02/22/24 Ellyn Connolly Argon TesterWaterworks Supervisor 08/17/23 [facility] 01/11/24 01/21/24 [facility] 01/11/24 documented as of this encounter
--- OUTSIDE RECORDS SUMMARY | 2024-07-16 15:22 | XMS_ITS | Encounter Summary ---
Author Organization [employer] Address [address] [place] [address] 7t [place] [address] Care Team Providers Care Bias Cutting Machine Operator Name Role Phone Toyin Pollard Primary Care Provider [phone] Satish Brennan MD Unavailable Jacob Morrow Unavailable [phone] Nicolasa Escobar MD Unavailable Shen Davis MD Unavailable [phone] Encounter Details Date Type Department Care Team (Late st Contact Info) Description 09/12/[address] [facility] MEDICINE 230 [place] [address] Patrica Grimaldo LPN Social History Tobacco Use [...] 08/05/2024 10:30 AM EDT Office [address] [facility] MED & PEDS 505 [place] [address] Toyin Pollard FNP 505 [place] [address] 09/23/2024 11:00 AM EDT Telemedicine [facility] MED & PEDS [address] [place] [address] Margret Hector, RN [address] [place] [address] documented as of this encounter Visit Diagnoses Not on filedocumented in this encounter Care Teams Bias Cutting Machine Operator Relationship Specialty Start Date End Date Toyin Pollard FNP 230 [place] [address] PCP - General Family Medicine 01/11/21 Satish Brennan MD [address] [place] [address] Endocrinology 02/22/24 Jacob Morrow 5 [place] [address] Pulmonary Disease 02/22/24 Nicolasa Escobar MD [address] [place] [address] Dr [facility] 140 [place] [address] Neurology 02/22/24 Shen Davis MD [address] [place] [address] Nephrology 02/22/24 Ellyn Connolly General Purchasing AgentKettle Skimmer 08/17/23 [facility] 01/11/24 01/21/24 [facility] 01/11/24 documented as of this encounter
--- OUTSIDE RECORDS SUMMARY | 2024-07-16 15:22 | XMS_ITS | Encounter Summary ---
Author Organization [employer] Address 75 [facility] 7t [place] [address] Care Team Providers Care Metal Bonder Name Role Phone Toyin Pollard Primary Care Provider Satish Brennan MD Unavailable [phone] Jacob Morrow Unavailable [phone] Nicolasa Escobar MD Unavailable Shen Davis MD Unavailable [phone] Reason for Visit * Reason Onset Date Comments FYI 01/25/2024 Encounter Details Date Type Department Care Team (Late st Contact Info) Description 01/25/2024 Telephone [facility]INE 230 [place], [place] [phone] Toyin Pollard FNP 505 [place], [place] [phone] FYI Social History Tobacco Use Types Packs/Day [...] - 01/25/2024 1:45 PM EST TC from [facility] with [facility] wanted to report pt Discharged from [facility] on 01/22/24 . Had a Cast on right ankle and was removed due to numbness. Pt now has a boot on . documented in this encounter Plan of Treatment Upcoming Encounters Date Type Department Care Team (Late st Contact Info) Description 08/05/2024 10:30 AM EDT [facility] 505 [place] [address] Toyin Pollard FNP 505 [place] [address] 09/23/2024 11:00 AM EDT Telemedicine [facility] 505 [place] [address] Margret Hector RN 505 [place] [address] documented as of this encounter Goals Goal [...] documented as of this encounter Care Teams Metal Bonder Relationship Specialty Start Date End Date Toyin Pollard FNP 230 [place] [address] PCP - General Family Medicine 01/11/21 Satish Brennan MD [address] [place] [address] Endocrinology 02/22/24 Jacob Morrow 5 [place] [address] Pulmonary Disease 02/22/24 Nicolasa Escobar MD [address] [place] [address] Dr Kameron 140 [place] [address] Neurology 02/22/24 Shen Davis MD [address] [place] [address] Nephrology 02/22/24 Ellyn Connolly Venetian Blind InstallerEditorial Project Manager 08/17/23 [facility] 01/11/24 documented as of this encounter
--- OUTSIDE RECORDS SUMMARY | 2024-07-16 15:22 | XMS_ITS | Encounter Summary ---
Author Organization [employer] Address 75 [facility] 7t [place] [address] Care Team Providers Care Double Cut Sawyer Name Role Phone Toyin Pollard Primary Care Provider [phone] Satish Brennan MD Unavailable Jacob Morrow Unavailable [phone] Nicolasa Escobar MD Unavailable Shen Davis MD Unavailable [phone] Reason for Visit * Reason Comments Med Refill Encounter Details Date Type Department Care Team ([facility] st Contact Info) Description 01/24/2023 Refill [facility] MED & PEDS 505 [place], [place] [phone] Toyin Pollard FNP 505 [place], [place] [phone] Pain Social History Tobacco Use Types Packs/Day [...] [facility] 505 [place] [address] Toyin Pollard FNP 505 [place] [address] 09/23/2024 11:00 AM EDT Telemedicine [facility] 505 [place] [address] Margret Hector, MINA 505 [place] [address] documented as of this encounter Goals Goal [...] documented as of this encounter Care Teams Double Cut Sawyer Relationship Specialty Start Date End Date Toyin Pollard FNP [address] [place] [address] PCP - General Family Medicine 01/11/21 Satish Brennan MD [address] [place] [address] Endocrinology 02/22/24 Jacob Morrow [address] [facility] [place] [address] Pulmonary Disease 02/22/24 Nicolasa Escobar MD [address] [place] [address] [address] Neurology 02/22/24 Shen Davis MD [address] [place] [address] Nephrology 02/22/24 Ellyn Connolly Room Service Food ServerPipe Buffer 08/17/23 [facility] 01/11/24 01/21/24 [facility] 01/11/24 documented as of this encounter
== END 2024-07-16 13:52 | disposition home or self-care (01) ==
LOC: HO.HPS 13:17
PROVIDERS: PCP Registered Nurse; Referring Provider Registered Nurse; Visit Provider Hospitalist
DX: J44.1 Chronic obstructive pulmonary disease with (acute) exacerbation (principal); R91.8 Other nonspecific abnormal finding of lung field; F17.200 Nicotine dependence, unspecified, uncomplicated; J96.11 Chronic respiratory failure with hypoxia; J96.12 Chronic respiratory failure with hypercapnia; J18.9 Pneumonia, unspecified organism
CPT/HCPCS: 99214

== ENCOUNTER → 2024-07-16 13:16 | Outpatient (BNVA) | payer MEDICAID, SELFPAY | PROVIDERS: PCP Registered Nurse; Referring Provider Registered Nurse; Visit Provider Hospitalist | DX: J44.1 Chronic obstructive pulmonary disease with (acute) exacerbation (principal); G47.33 Obstructive sleep apnea (adult) (pediatric); R91.8 Other nonspecific abnormal finding of lung field; J96.11 Chronic respiratory failure with hypoxia; J96.12 Chronic respiratory failure with hypercapnia; J18.9 Pneumonia, unspecified organism; Z99.89 Dependence on other enabling machines and devices; Z99.81 Dependence on supplemental oxygen; Z87.891 Personal history of nicotine dependence | CPT/HCPCS: 99212 ==

== ENCOUNTER 2024-07-24 15:36 | Inpatient (IN) | payer MEDICAID, SELFPAY ==
--- NOTE | ~2024-07-24 | XR_ITS ---
CLINICAL HISTORY: hypoxia 1 view chest x-ray Comparison: CR/SR - XR CHEST 1V - 12/21/23 21:04 EDT Findings: Mild bilateral atelectasis. No significant pleural effusion or pneumothorax. Low lung volumes. Similar prominent/enlarged cardiac silhouette. No acute fracture. Rotation limits evaluation. IMPRESSION: Mild bilateral atelectasis. This document has been electronically signed by: Brock Ulloa MD on 07/24/2024 20:55:11
[2024-07-24 15:41] VITALS: BP 116/70; PULSE 80; O2SAT 94
[2024-07-24 15:59] VITALS: BP 108/68; PULSE 76; RESP 18; TEMP 36.8; O2SAT 95; BMI 79.7
[2024-07-24 16:02] VITALS: O2SAT 93
--- OUTSIDE RECORDS SUMMARY | 2024-07-24 16:31 | XMS_ITS | Clinical Summary ---
Author Organization [employer] Address [address] [place] [address] Care Team Providers Care Wage Analyst Name Role Phone JuddjhonnyToyin Primary Care Provider [phone] Satish Brennan MD Unavailable Jacob Morrow Unavailable [phone] Nicolasa Escobar MD Unavailable Shen Davis MD Unavailable [phone] Allergies Active Allergy Reactions Criticality Noted Date Comments Haloperidol Unknown High 03/22/2022 Other reaction(s): Irritable Latex Rash Low 01/14/2021 Metformin Diarrhea,Hives High 01/14/2021 Morphine Itching,Rash Low 02/07/2019 Tetracycline Hives High 03/22/2022 Medications TRUEplus Lancets 33G miscIndications: Type 2 diabetes mellitus with complication (CMS/FORMERLY [facility]) 1 Lancet in the morning, at [...] Continuous Glucose Sensor (FreeStyle Todd 2 Sensor) misc USE DIRECTED CHANGE EVERY 14 DAYS Active [...] AT NOON WITH FOOD 90 tablet 3 Active econazole nitrate 1 % creamIndications :Intertrigo [...] BY MOUTH AT BEDTIME 90 tablet 3 025 Active nystatin (Nyamyc) 728362 UNIT/GM powderIndication s:Tinea APPLY TOPICALLY TO AFFECTED [...] hourIndications: Dizziness, nonspecific PLACE 1 PATCH ON THE SKIN EVERY 3RD DAY 10 patch 025 Active scopolamine (Transderm-Scop) 1 MG/3DAYS patch [...] eorder (will not trigger notification to Pharmacy)) scopolamine (Transderm-Scop) 1 MG/3DAYS patch 72 hourIndications: Dizziness, nonspecific Place 1 patch on the skin every 3rd (third) day. 10 patch 025 2024 Discontinued(R eorder (will not trigger notification to Pharmacy)) fosfomycin (Monurol) 3 g packet Take 3 g by mouth 1 (one) time for 1 dose. 3 g 025 2024 Active Problems Problem Noted Date Diagnosed Date [...] maintenance 11/10/2022 Overview (08/05/2023): Optometry: followed by [facility], last appt Feb 2021 Mammogram: BIRADS 2 02/21/2019, due. Ordered 11/15/22 Colonoscopy: followed by GI, referral for screening colonoscopy placed 11/15/22. Cologuard negative 03/08/23 Pap: overdue, pt does not recall last pap. Will schedule with [facility] CNM in handicap accessible room Last PE: 07/17/23 Assessment & Plan (07/19/2023 10:15 AM EDT): Labs ordered today, showed hyperkalemia, but with hemolysis Will repeat at next appointment with PCP ADHD 09/28/2022 History of posttraumatic stress disorder (PTSD) 09/28/2022 Migraine 09/28/2022 Assessment & Plan (02/25/2024 6:26 PM EST): - History of migraines, previously using sumatripan. Discontinued with history of ME - Referral to Neuro for further eval and tx 11/15/22 -Nurtec 75mg tablet approval - PA # [id number], exp 02/12/25 - pt reports med effective. Denies med SE Assessment & Plan (08/05/2023 5:08 PM EDT): - History of migraines, previously using sumatripan. Discontinued with history of ME - Referral to Neuro for further eval and tx 11/15/22 -Nurtec 75mg tablet approved May 2023. #[id number] will on 12/17/23 - pt reports med effective. Denies med SE Assessment & Plan (11/15/2022 5:45 PM EDT): - History of migraines, previously using sumatripan. Discontinued with history of ME - PA for Nurtec denied through PCP [...] patient about the risks and harms of senior living opioid use - Pt goal is to [...] patient about the risks and harms of senior living opioid use - Pt goal is to [...] supplemental O2 at home -Continue with Breztri (uupyeozsfu-xiwvelvz-asfpfuamcr) BID -Albuterol PRN -DME request for neb [...] supplemental O2 at home -Continue with Breztri (kvvjyrdfvx-ikjwlzbe-jexaffyjih) BID -Albuterol PRN -DME request for neb [...] Following with [facility] Barb Benito Mounjaro & Jonatan, with goal of weight loss leading to bariatric surgery Lab Results Component Value Date HGBA1C 6.4 (A) 08/02/2023 HGBA1C 6.7 (A) 07/17/2023 HGBA1C 10.4 (A) 03/01/2023 HGBA1C TNP 07/20/2022 HGBA1C 7.8 (H) 01/11/2021 HGBA1C 11.9 (H) 11/11/2019 HGBA1C 11.9 (H) 11/11/2019 A1c: congratulated in improvement with A1c levels Eye exam: due, schedule with [facility] Foot exam: referral to podiatry 11/15/22 Dental: encouraged PNA: UTD ACEi/ARB: yes Statin: yes ASA: yes Lifestyle: Encouraged regular movement as able and aerobic exercise for improved glycemic control Encouraged daily foot checks Encouraged lean protein snacks and to avoid foods high in sugar and simple carbohydrates Medications: Per [facility] Barb Cheung insulin: 64 units at bedtime Humalog 14 units TID AC Mounjaro 7.5mg subcutaneous weekly Treatment Goals: A1c goal: <7% FBG goal: <130 2 hour post prandial goal: <180 Assessment & Plan (08/05/2023 5:09 PM EDT): Following with [facility] Endo Continue Bree & Jonatan, with goal of weight loss leading to bariatric surgery Lab Results Component Value Date HGBA1C 6.4 (A) 08/02/2023 HGBA1C 6.7 (A) 07/17/2023 HGBA1C 10.4 (A) 03/01/2023 HGBA1C 7.8 (H) 01/11/2021 HGBA1C 11.9 (H) 11/11/2019 HGBA1C 11.9 (H) 11/11/2019 A1c: congratulated in improvement with A1c levels Eye exam: due, schedule with [facility] Foot exam: referral to podiatry [...] Plan (07/19/2023 10:16 AM EDT): Following with [facility] Endo Continue Bree with goal of weight loss leading to bariatric surgery Lab Results Component Value Date HGBA1C 10.4 (A) 03/01/2023 A1c: above goal Eye exam: due, schedule with [facility] Foot exam: referral to podiatry [...] above goal Eye exam: due, schedule with [facility] Foot exam: referral to podiatry [...] above goal Eye exam: due, schedule with [facility] Foot exam: referral to podiatry 11/15/22 Dental: encouraged PNA: UTD ACEi/ARB: yes Statin: yes ASA: does not appear to be taking, although hx of ME. Will refer to [facility] for further eval. [...] Encounters Date Type Department Care Team Description 07/24/2024 Telephone [facility] MED & PEDS [address] [place] [address] Toyin Pollard FNP PCP Contact 07/23/2024 Telephone [facility] [address] [place] [address] Toyin Pollard FNP 07/22/2024 Telephone [facility] [address] [place] [address] Toyin Pollard FNP Care Coordination 07/22/2024 Refill [facility] [address] [place] [address] Toyin Pollard FNP Dizziness, nonspecific 07/16/2024 Orders Only [facility] [address] [place] [address] Toyin Pollard FNP 07/16/2024 Telephone [facility] MEDICINE [address] [place] [address] Toyin Pollard FNP Results 07/15/2024 Orders Only [facility] [address] [place] [address] Francisco Javier Fields MD 07/11/2024 Telephone [facility] [address] [place] [address] Toyin Pollard FNP Record Request; Lab Orders 07/09/2024 Orders Only [facility] [address] [place] [address] Francisco Javier Fields MD Stress incontinence of urine (Primary Dx) 07/06/2024 Refill [facility] [address], [place] [phone] Toyin Pollard FNP Migraine without status migrainosus, not intractable, unspecified migraine type 07/05/2024 Telephone [facility] [address] [place] [address] Toyin Pollard FNP ER Follow-up 07/02/2024 Orders Only [facility] External Provider, [facility] 06/27/2024 10:30 AM EDT Clinical Support [facility] PEDS [address] [place] [address] Margret Hector, [place] Pain 06/27/2024 Refill [facility] [address] [place] [address] Margret Hector, [place] Pain; Calculus of gallbladder without cholecystitis without obstruction; Long-term current use of opiate analgesic; Dizziness, nonspecific 06/27/2024 Travel 06/26/2024 Telephone [facility] [address] [place] [address] Toyin Pollard FNP Ambulance transportation 06/18/2024 Refill [facility] MEDICINE [address] [place] [address] Toyin Pollard FNP Seasonal allergies 06/17/2024 Refill [facility] [address] [place] [address] Toyin Pollard FNP 06/06/2024 Refill [facility] MEDICINE [address] [place] [address] Toyin Pollard FNP Tinea 05/31/2024 Population Health Risk Score [facility] [address] [place] [phone] Provider, Population Health Generic 05/29/2024 Refill C MEDICINE [address] [place] [address] Toyin Pollard FNP Pain; Calculus of gallbladder without cholecystitis without obstruction; Long-term current use of opiate analgesic 05/27/2024 Refill [facility] [address] [place] [address] Toyin Pollard FNP 05/23/2024 Refill [facility] MEDICINE [address] [place] [address] Toyin Pollard FNP 05/22/2024 Telephone [facility] [address] [place] [address] Toyin Pollard FNP Appointment Confirmation 05/22/2024 Telephone [facility] MEDICINE [address] [place] [address] Toyin Pollard FNP Durable Medical Equipment 05/22/2024 Refill [facility] [address] [place] [address] Toyin Pollard FNP 05/21/2024 Telephone [facility] MED [facility] PED[facility] [address] [place] [address] Margret Hector, [place] 05/21/2024 Telephone [facility] [address] [place] [address] Margret Hector, [place] 05/20/2024 Telephone [facility] [address] [place] [address] Toyin Pollard FNP 05/16/2024 Telephone [facility] MEDICINE [address] [place] [address] Toyin Pollard FNP Durable Medical Equipment 05/15/2024 Patient Outreach [facility] MED [facility] PEDS [address] [place] [address] Toyin Pollard FNP Care Coordination (CHW outreach for SDOH PT-1 and food needs-referral completed /) 05/15/2024 Telephone [facility] MEDICINE [address] [place] [address] Toyin Pollard FNP transportation needed 05/15/2024 Telephone [facility] MEDICINE [address] [place] [address] Toyin Pollard FNP Nurse Triage 05/15/2024 Refill [facility] MEDICINE [address] [place] [phone] Toyin Pollard FNP Dizziness, nonspecific 04/30/2024 Refill [facility] MEDICINE [address] [place] [address] Toyin Pollard FNP Smokes cigarettes from Last 3 Months Immunizations Name Administration Dates Next Due Influenza injectable quadriv alent preservative free 01/14/2022,11/30/2021,02/24/2021,02/18 Pfizer Covid-19 Vaccine 12+ 02/24/2021, 1,04/01/2020 Pneumococcal Conjugate PCV 20 11/10/2022 Pneumococcal Polysaccharide [...] [facility] [address] [place] [address] Toyin Pollard FNP [address] [place] [address] 09/23/2024 11:00 AM EDT Telemedicine [facility] MED [facility] PED[facility] [address] [place] [address] Margret Hector, RN [address] [place] [address] Health Maintenance Due Date Last Done Comments [...] time period is included. Color Urine Yellow [facility] Appearance Urine Turbid [facility] PH 6.0 5.0 - 9.0 [facility] Glucose Urine UA Negative Negative mg/dL [facility] Urine Blood Trace(A) Negative [facility] Specific [place] - Urine 1.015 1.005 - 1.025 [facility] Urine Protein 30 (1+)(A) Neg-Trace mg/dL [facility] Urine Ketones Negative Negative mg/dL [facility] Nitrite Urine Negative Negative [facility] Leukocyte Esterase Urine Large (3+)(A) Negative [facility] RBC Urine 11-20(A) 0 - 2 /HPF [facility] Urine WBC >50(A) 0 - 5 /HPF [facility] Urine Squamous Epithelial Cell 3-5 0 - 2 /HPF [facility] Other Crystals Urine Present [facility] Urine Bacteria 4+ None Seen [facility] Hyaline Casts, Urine 0-2 0 - 2 /LPF [facility] Urine 07/15/2024 9:00 AM EDT 07/15/2024 1:59 PM EDT [facility] - 07/15/2024 3:07 PM EDT [id number], Clean Catch Francisco Javier Fields MD LAB URINE ORDERABLES Final Result Performing Organization Address [facility] Co de Phone Number [facility] [address] [place] [phone] * Culture, Urine, Routine (07/15/2024 12:00 AM EDT) Only the most recent of2 resultswithin the time period is included. Urine Urine specimen obtained by clean catch procedure / Unknown 07/15/2024 07/15/2024 Comment:[facility] - 07/17/2024 8:03 AM EDT Escherichia coli ESBL Note: NOTE: Extended-Spectrum Beta-Lactamase enzyme present Quant > 100,000 cfu/mL Escherichia coli: Ampicillin >=32(R) Escherichia coli: Cefazolin (Urine) >=32(R) Escherichia coli: Cefepime >=32(R) Escherichia coli: Ceftriaxone >=64(R) Escherichia coli: Ciprofloxacin >=4(R) Escherichia coli: Ertapenem <=0.12(S) Escherichia coli: Gentamicin >=16(R) Escherichia coli: Nitrofurantoin 128(R) Escherichia coli: Trimethoprim/Sulfamethoxazole >=320(R) Specimen Source: Urine clean catch us Francisco Javier Fields MD LAB MICROBIOLOGY - GENERAL ORDERABLES Final Result Performing Organization Address [facility]/ZIP Co de Phone Number [facility] [address] [place] [phone] * (ABNORMAL) Comprehensive Metabolic Panel (07/02/2024 3:33 PM EDT) Sodium 127(L) 135 - 145 mmol/L [facility] Potassium 4.9 3.3 - 5.1 mmol/L [facility] Chloride 82(L) 96 - 108 mmol/L [facility] Carbon Dioxide 35(H) 22 - 29 mmol/L [facility] Anion Gap 15 12 - 20 [facility] Urea Nitrogen (BUN) 9 9 - 16 mg/dL [facility] Creatinine, Serum 0.67 0.5 - 1.4 mg/dL [facility] Creatinine Clr Calc Pharmacy 182.1 [facility] Comment:Provided height and weight: 167.64 cm,208 kg.eGFR (calculated from the MDRD study equation) and eCrCl(calculated from the Cockcroft-Gault equation) are based ondifferent parameters and may not yield comparable results.If eCrCl result is absurd, please check patient'sheight/weight. Estimated Glomerular Filt Rate >60 [facility] Comment:Chronic Kidney Disea se: Estimated GFR < 60 mL/min/1.41o3Kuxvhc Kidney Disease: Estimated GFR < 15 mL/min/1.73m2 Glucose 133(H) 60 - 115 mg/dL [facility] Calcium 9.7 8.4 - 10.2 mg/dL [facility] Bilirubin, Total 0.2 0.0 - 1.0 mg/dL [facility] Aspartate Amino Transferase 19 5 - 31 U/L [facility] Alanine Aminotransferase 10 0 - 31 U/L [facility] Total Protein 7.0 6.5 - 8.0 g/dL [facility] Albumin Level 4.0 3.5 - 5.0 g/dL [facility] Alkaline Phosphatase 54 39 - 117 U/L [facility] 07/02/2024 3:33 PM EDT 07/02/2024 3:36 PM EDT us Generic External Data Provider LAB BLOOD ORDERAB LES Final Result [facility] [address] [place] [address] [phone] * XR Foot 1-2 Views Right (07/02/2024 3:01 PM EDT) Anatomical Region Laterality Modality Lower Extremities, Foot Right Radiogra phic Imaging 07/02/2024 3:01 PM EDT Narrative 07/02/2024 3:56 PM EDT ? [facility] ?[address] ?[place] [address] ?XRay Report ? Signed ? Patient: John,Elle ?MR#: [id number] ?? 57 ? : 1970 ?Acct:[id number] ? Age/Sex: 54 / F ?ADM Date: 07/02/24 ? Loc: HO.ED ? Attending Dr: ? Ordering Physician: Silvia Jose ?? Date of Service: 07/02/24 ?? Procedure(s): XR foot RT 2V ?? Accession Number(s): [id number] ? cc: [facility]; Silvia Jose ? EXAMINATION: ?? XR FOOT, [...] DD/ 1501 ? TD/TT: 07/02/24 1525 ? Doctor Of Naturopathic Medicine: ? Procedure Note Anoop Babcock - 07/02/[address] [address] XRay Report Signed Patient: Elle Lopez#: [id number] 57 : 1970Acct:[id number] Age/Sex: 54 / FADM Date: 07/02/24 Loc: HO.ED Attending Dr: Ordering Physician: Silvia Jose Date of Service: 07/02/24 Procedure(s): XR foot RT 2V Accession Number(s): [id number] cc: [facility]; Silvia Jose EXAMINATION: XR FOOT, RIGHT CLINICAL [...] 07/02/24 1553 DD/ 1501 TD/TT: 07/02/24 1525 Doctor Of Naturopathic Medicine: us [facility] External Provider IMG XR PROCEDURES Final Result * XR Ankle 2 Views Right (07/02/2024 3:01 PM EDT) Anatomical Region Laterality Modality Lower Extremities, Ankle Right Radiogr aphic Imaging 07/02/2024 3:01 PM EDT Narrative 07/02/2024 3:58 PM EDT ? [facility] ?[address] ?[place] [address] ?XRay Report ? Signed ? Patient: John,Elle ?MR#: [id number] ?? 57 ? : 1970 ?Acct:[id number] ? Age/Sex: 54 / F ?ADM Date: 04/15/25 ? Loc: HO.ED ? Attending Dr: ? Ordering Physician: Silvia Jose ?? Date of Service: 07/02/24 ?? Procedure(s): XR ankle RT 2V ?? Accession Number(s): [id number] ? cc: [facility]; Silvia Jose ? EXAMINATION: ?? XR ANKLE, [...] DD/ 1501 ? TD/TT: 07/02/24 1525 ? Doctor Of Naturopathic Medicine: ? Procedure Note Anoop Babcock - 07/02/2024 [place] [address] XRay Report Signed Patient: Elle LopezMR#: [id number] 57 : 1970Acct:[id number] Age/Sex: 54 / FADM Date: 07/02/24 Loc: HO.ED Attending Dr: Ordering Physician: Silvia Jose Date of Service: 07/02/24 Procedure(s): XR ankle RT 2V Accession Number(s): [id number] cc: [facility]; Silvia Jose EXAMINATION: XR ANKLE, RIGHT CLINICAL [...] 07/02/24 1556 DD/ 1501 TD/TT: 07/02/24 1525 Doctor Of Naturopathic Medicine: [facility] External Provider IMG XR PROCEDURES Final Result * POCT BAKARI-14 Urine Drug Screen (06/27/2024 11:20 AM EDT) TCA, Urine Positive Urine Urine specimen obtained by clean catch procedure / Unknown 06/27/2024 11:20 AM EDT Narrative Margret Hector RN - 06/27/2024 11:20 AM EDT Lot# [id number] Exp: 11-06-25 Toyin Pollard [employer]TER OPERATOR POINT OF CARE TEST ENTER/EDIT ORDERABLES Final Result * XR Pelvis 1-2 Views (05/02/2024 12:07 AM EST) Anatomical Region Laterality Modality Body, Pelvis Radiographic Padmini ging 05/02/2024 12:0 7 AM EST Narrative 05/02/2024 12:10 AM EST ? [facility] ?[address] ?[place] [address] ?XRay Report ? Signed ? Patient: John,Elle ?MR#: [id number] ?? 57 ? : 1970 ?Acct:[id number] ? Age/Sex: 54 / F ?ADM Date: 02/12/25 ? Loc: HO.ED ? Attending Dr: ? Ordering Physician: Layne Chambers ?? Date of Service: 05/01/24 ?? Procedure(s): XR pelvis 1-2V ?? Accession Number(s): [id number] ? cc: Layne Chambers; [facility] ? CLINICAL HISTORY: pain, fx? Pelvis, 1 [...] 0008 ? DD/ ? TD/TT: 05/02/246 ? Doctor Of Naturopathic Medicine: ? Procedure Note Donricater, Image - 05/02/2024 [place] [address] XRay Report Signed Patient: Elle LopezMR#: [id number] 57 : 1970Acct:[id number] Age/Sex: 54 / FADM Date: 05/01/24 Loc: HO.ED Attending Dr: Ordering Physician: Layne Chambers Date of Service: 05/01/24 Procedure(s): XR pelvis 1-2V Accession Number(s): [id number] cc: Layne Chambers; [facility] CLINICAL HISTORY: pain, fx? Pelvis, 1 view [...] MD in OV> 05/02/247 DD/ TD/TT: 05/02/246 Doctor Of Naturopathic Medicine: us [facility] External Provider IMG XR PROCEDURES Final Result * (ABNORMAL) POCT HGB A1C (08/02/2023 4:30 PM EDT) [facility] Hemoglobin A1C 6.4(A) 4.0 - 6.0 % QC Media Lot # [id number] Lot# Expiration Date [id number] Blood 08/02/2023 4:30 PM EDT Result [facility] Toyinwilfrid Whaleyjhonny [employer]TER OPERATOR POINT OF CARE TEST ENTER/EDIT ORDERABLES Final Result * Hepatitis C Antibody with Reflex to HCV, RNA, Quantitative, Real-Time PCR (07/19/2023 12:30 PM EDT) [facility] Hepatitis C Antibody Nonreactive Nonreactive [facility] Comment:Antibodies to HCV no t detected; does not exclude early acuteHCV infection. Blood Venous blood specimen / Unknown 07/19/2023 12:30 PM EDT 07/19/2023 1:00 PM EDT Result [facility] Agustina Toribio MD LAB BLOOD ORDERABLES Final Res ult [facility] [address] [place] [phone] * HIV-1/2 Antigen and Antibodies, Fourth Generation, with Reflexes (07/19/2023 12:30 PM EDT) [facility] HIV AB/AG Nonreactive Nonreactive [facility] Comment:HIV-1 p24 Ag and/or HIV-1/HIV-2 Ab not detected.A test result that is nonreactive does not exclude thepossibility of exposure to or infection with HIV-1 and/orHIV-2. Nonreactive results in this assay for individualswith prior exposure to HIV-1 and/or HIV-2 may be due toantigen and antibody levels that are below the limit ofdetection of this assay.The [employer] HIV Ag/Ab Combo assay result andsupplemental assay results should be interpreted inconjunction with the patient's clinical presentation,history and other laboratory results. If the results areinconsistent with clinical evidence, additional testing issuggested to confirm the result. Blood Venous blood specimen / Unknown 07/19/2023 12:30 PM EDT 07/19/2023 1:00 PM EDT Agustina Toribio MD LAB BLOOD ORDERABLES Final Res ult Performing Organization Address [facility] Co de Phone Number [facility] [address] [place] [phone] * (ABNORMAL) Lipid Panel, Standard (07/17/2023 4:09 PM EDT) Triglycerides 171(H) <150 mg/dL [facility] Comment:Desirable Triglyceri de: less than 150 mg/dLBorderline High Triglyceride 150-199 mg/dLHigh Triglyceride: 200-499 mg/dLVery High Triglyceride: greater than or equal to 5OO mg/dL Cholesterol 176 <200 mg/dL [facility] Comment:Desirable Cholestero l: less than 200 mg/dLBorderline High Cholesterol: 200-239 mg/dLHigh Cholesterol: greater than 239 mg/dL LDL Cholesterol Calculated 77 <100 mg/dL [facility] Comment:Desirable LDL: less than 100 mg/dLNear Optimal/Above Optimal LDL: 110- 129 mg/dLBorderline High LDL: 130-159 mg/dLHigh LDL: 160-189 mg/dLVery High LDL: greater than or equal to 190 mg/dL HDL Cholesterol 65 >40 mg/dL [facility] Comment:Desirable HDL: great er than 40 mg/dL Note: This HDL assay may give artificially low results in patients with liver disease. Blood Venous blood specimen / Unknown 07/17/2023 4:09 PM EDT 07/17/2023 5:46 PM EDT us Agustina Toribio MD LAB BLOOD ORDERABLES Final Res ult Performing Organization Address [facility]/ZIP Co de Phone Number [facility] [address] [place] [phone] * Cologuard?? colon cancer screening (03/08/2023 3:30 PM EST) Pathologist [facility] Cologuard Result Negative Negative 03/16/20 9:24 AM EST [facility] (CLIA #:[id number]) Comment: NEGATIVE TEST RESULT. A negative Cologuard [...] cancer. ??Following a negative Cologuard result, the [place] [employer] and U.S. Multi-Society Task Force screening guidelines recommend a Cologuard re-screening interval of 3 years. References: [place] [employer] Guideline for Colorectal Cancer Screening: https://www.cancer.org/cancer/mvpwb-wmxctq-pzfchv/qmutexlam-oeqdemmxm-yryzwei/ac s-rec ommendations.html.; Miguel ARTIS, Maria Elena CHEW, Lester MaherK, Colorectal Cancer Screening: Recommendations for Physicians and Patients from the U.S. Multi-Society Task Force on Colorectal Cancer Screening , Am J Gastroenterology 2017; 112:0429-8913. TEST DESCRIPTION: Composite algorithmic analysis of stool [...] Josue et al, N Engl J Med 2014;370(14):7127-4074.) Cologuard may produce a false negative or false positive result (no colorectal cancer or precancerous polyp present at colonoscopy follow up). A negative Cologuard test result does not guarantee the absence of CRC or advanced adenoma (pre-cancer). The current Cologuard screening interval is every 3 years. ([employer] Cancer Society and U.S. Multi-Society Task Force). Cologuard performance data in a 10,000 patient pivotal study using colonoscopy as the reference method can be accessed at the following location: www.[employer]/results. Additional description of the Cologuard test process, warnings and precautions can be found at www.cologuard.com. Stool specimen (specimen) 03/08/2023 3:30 PM EST 03/09/2023 7:12 PM EST Toyin Pollard [facility] LAB MOLECULAR DIAGNOSTICS DRE FRY Final Result [employer] (CLIA #:[id number]) [place] [address] [place] [address], * Mammography Report 1 (05/27/2020 2:30 PM [...] RANDOM URINE W/CREATININE (11/12/2019 10:27 AM EDT) Pathologist [facility] Creatinine, Urine 16(L) 20 - 275 mg/dL [...] MD LAB URINE ORDERABLES Final Resul t [facility] [address] * HPV mRNA E6/E7 (02/20/2019 8:58 AM EST) Pathologist [facility] HPV mRNA E6/E7 Not Detected NOT DETECTED [facility] Comment: This test was performed using the APTIMA(R) HPV Assay ([employer] This assay detects E6/E7 viral messenger RNA (mRNA) from 14 high-risk HPV types (16,18,31,33,35,39,45,51, 52,56,58,59,66,68). For additional information please refer to: http://education.AYLI[employer]/faq/JLQ054a2 (This link is being provided for informational/ educational purposes only.) The analytical performance characteristics of this assay have been determined by [employer] [place], [place]. The modifications have not been cleared or approved by the FDA. This assay has been validated pursuant to the CLIA regulations and is used for clinical purposes. Test Performed by [facility], [employer] [place], [address] [place] [address] Randy Willson M.D., Ph.D., Director of Laboratories , CLIA [id number] Please note: ??Effective 11/30/2015, HPV testing will be performed using [employer]'s APTIMA test which targets mRNA. Detecting mRNA instead of DNA, as in older methods, offers significant improvements in specificity. 02/20/2019 8:58 AM EST Carina Fontaine CNM HISTORICAL/NON ORDERABLE LABS Final Result [facility] Anywhere [address] from Last 3 Months or Most Recently Relevant to Health Maintenance Insurance [facility] C[facility] [place] ST[place] ADULT Care Teams Wage Analyst Relationship Specialty Start Date End Date Toyin Pollard FNP [address] [place] [address] PCP - General Family Medicine 01/11/21 Satish Brennan MD [address] [place], [place] Endocrinology 02/22/24 Jacob [place]row 5 [place], [place] Pulmonary Disease 02/22/24 Nicolasa Escobar MD [address] [place] [address] Neurology 02/22/24 Shen Davis MD [address] [place] [address] Nephrology 02/22/24 Ellyn Connolly Finishing Room SupervisorBasket Turner 08/17/23 [facility] 01/11/24
--- OUTSIDE RECORDS SUMMARY | 2024-07-24 16:31 | XMS_ITS | Encounter Summary ---
Author Organization [employer] Address [address] [facility] 7t [place] [address] Care Team Providers Care Supervisor Particleboard Name Role Phone Toyin Pollard Primary Care Provider [phone] Satish Brennan MD Unavailable Jacob Morrow Unavailable [phone] Nicolasa Escobar MD Unavailable Shen Davis MD Unavailable [phone] Reason for Visit * Reason Onset Date Comments Hospital Follow-up 09/19/2022 Encounter Details Date Type Department Care Team (Late st Contact Info) Description 09/19/2022 Telephone [facility] MEDICINE 230 [place] [address] Toyin Pollard FNP 505 [place], [place] [phone] Hospital Follow-up Social History Tobacco Use Types [...] a HDF appt. Pt was admitted at [facility] on 09/08/22 and discharged on 09/16/22. Pt was diagnosed with pneumonia. Please contact dionisio at [phone] documented in this encounter Plan of Treatment Upcoming Encounters Date Type Department Care Team (Late st Contact Info) Description 08/05/2024 10:30 AM EDT Office Visit [facility] MED & PEDS 505 [place] [address] Toyin Pollard FNP 505 [place] [address] 09/23/2024 11:00 AM EDT Telemedicine [facility] MED & PEDS 505 [place] [address] Margret Hector RN 505 [place] [address] documented as of this encounter Visit Diagnoses Not on filedocumented in this encounter Care Teams Supervisor Particleboard Relationship Specialty Start Date End Date Toyin Pollard FNP [address] [place] [address] PCP - General Family Medicine 01/11/21 Satish Brennan MD [address] [place] [address] Endocrinology 02/22/24 Jacob Morrow 5 [place] [address] Pulmonary Disease 02/22/24 Nicolasa Escobar MD [address] [place] [address] Dr [address] [place] [address] Neurology 02/22/24 Shen Davis MD [address] [place] [address] Nephrology 02/22/24 Ellyn Connolly Associate Professor Of ArtTrolley Cleaner 08/17/23 [facility] 01/11/24 01/21/24 [facility] 01/11/24 documented as of this encounter
--- OUTSIDE RECORDS SUMMARY | 2024-07-24 16:31 | XMS_ITS | Encounter Summary ---
Author Organization [employer] Address [address] [facility] 7t [place] [address] Care Team Providers Care Frame Stripper And Crusher Name Role Phone Toyin Pollard Primary Care Provider Satish Brennan MD Unavailable Jacob Morrow Unavailable [phone] Nicolasa Escobar MD Unavailable Shen Davis MD Unavailable [phone] Reason for Visit * Reason Onset Date Comments MRI order 10/03/2022 FYI 10/03/2022 Encounter Details Date Type Department Care Team (Late st Contact Info) Description 10/03/2022 Telephone [facility] MEDICINE 230 [place], [place] [phone] Toyin Pollard FNP [address] [place], [place] [phone] MRI order ; Social History Tobacco Use [...] - 10/03/2022 2:16 PM EDT Tc from [facility] MRI Dept mold making supervisor would like to inform PCP that pt was unable to get MRI done ,due to being a closed scanner , States will be faxing order to [facility] since they have a MRI scanner that is open. Advised will leave message as a FYI if any questions or concerns please contact at [phone] * Telephone Encounter - Azalea Guerrero RN - 10/03/2022 2:05 PM EDT [facility] received updated order. * Telephone Encounter - Clara Simmons - 10/03/2022 9:34 AM EDT Tc from racheal with [facility] requesting a new order for MRI abdomin. States MRI has to be MRI abdomin with and without contrast. She is also requesting a call in regards to ct scan done at [facility]. Please contact racheal at [phone] Fax number: [phone] documented in this encounter Plan of Treatment Upcoming Encounters Date Type Department Care Team (Late st Contact Info) Description 08/05/2024 10:30 AM EDT Office Visit [facility] MED & PEDS 505 [place] [address] Toyin Pollard FNP 505 [place] [address] 09/23/2024 11:00 AM EDT Telemedicine [facility] MED & PEDS 505 [place] [address] Margret Hector, RN [address] [place] [address] documented as of this encounter Visit Diagnoses Not on filedocumented in this encounter Additional Health Concerns Assessment Noted Time PHQ-9 Depression Total Score: 0 09/29/19 23 2:03 PM EDT documented as of this encounter Care Teams Frame Stripper And Crusher Relationship Specialty Start Date End Date Toyin Pollard FNP 230 [place] [address] PCP - General Family Medicine 01/11/21 Satish Brennan MD [address] [place] [address] Endocrinology 02/22/24 Jacob Morrow 5 [place] [address] Pulmonary Disease 02/22/24 Nicolasa Escobar MD [address] [place] [address] Dr Kameron [address] [place] [address] Neurology 02/22/24 Shen Davis MD [address] [place] [address] Nephrology 02/22/24 Ellyn Connolly Facilities AssistantField Artillery Crewmember 08/17/23 [facility] 01/11/24 01/21/24 [facility] 01/11/24 documented as of this encounter
--- OUTSIDE RECORDS SUMMARY | 2024-07-24 16:31 | XMS_ITS | Encounter Summary ---
Author Organization [employer] Address [address] [facility] 7t [place] [address] Care Team Providers Care Helmet Coverer Name Role Phone Toyin Pollard Primary Care Provider Satish Brennan MD Unavailable Jacob [place]row Unavailable [phone] Nicolasa Escobar MD Unavailable Shen Davis MD Unavailable [phone] Reason for Visit * Reason Onset Date Comments Hospital Follow-up 11/06/2023 Encounter Details Date Type Department Care Team (Late st Contact Info) Description 11/06/2023 Telephone [facility] MEDICINE 230 [place], [place] [phone] Toyin Pollard FNP 505 [place], [place] [phone] Hospital Follow-up Social History Tobacco Use Types [...] t he electric, gas, oil or water [employer] threatened to shut off services in your [...] from pt requesting a F appt. Hospital: [facility] Date of admission: 10/25 Discharge date: 11/03 Diagnosed: Ankle injury documented in this encounter Plan of Treatment Upcoming Encounters Date Type Department Care Team (Late st Contact Info) Description 08/05/2024 10:30 AM EDT Office Visit [facility] MED & PEDS 505 [place] [address] Toyin Pollard FNP 505 [place] [address] 09/23/2024 11:00 AM EDT Telemedicine [facility] MED & PEDS 505 [place] [address] Margret Hector, MINA 505 [place] [address] documented as of this encounter Goals Goal [...] documented as of this encounter Care Teams Helmet Coverer Relationship Specialty Start Date End Date Toyin Pollard FNP [address] [place] [address] PCP - General Family Medicine 01/11/21 Satish Brennan MD [address] [place] [address] Endocrinology 02/22/24 Jacob Morrow 5 [place] [address] Pulmonary Disease 02/22/24 Nicolasa Escobar MD [address] [place] [address] Dr Kameron 140 [place] [address] Neurology 02/22/24 Shen Davis MD [address] [place] [address] Nephrology 02/22/24 Ellyn Connolly Cotton ClasserColor Paste Mixing Supervisor 08/17/23 [facility] 01/11/24 01/21/24 [facility] 01/11/24 documented as of this encounter
--- OUTSIDE RECORDS SUMMARY | 2024-07-24 16:31 | XMS_ITS | Encounter Summary ---
Author Organization [employer] Address [address] [facility] 7t [place] [address] Care Team Providers Care Photographer Scientific Name Role Phone Toyin Pollard Primary Care Provider [phone] Satish Brennan MD Unavailable Jacob [place]row Unavailable [phone] Nicolasa Escobar MD Unavailable Shen Davis MD Unavailable [phone] Encounter Details Date Type Department Care Team (Late st Contact Info) Description 04/22/2024 Telephone [facility] MEDICINE 230 [place], [place] [phone] Toyin Pollard FNP [address] [place], [place] [phone] Social History Tobacco Use Types Packs/Day Years [...] the past 12 months, has t he [employer], gas, oil or water company threatened to [...] [facility] MED & PEDS 505 [place] [address] Toyin Pollard FNP 505 [place] [address] 09/23/2024 11:00 AM EDT Telemedicine [facility] [facility] MED & PEDS 505 [place] [address] Margret Hector RN 505 [place] [address] documented as of this encounter Goals Goal [...] documented as of this encounter Care Teams Photographer Scientific Relationship Specialty Start Date End Date Toyin Pollard FNP 230 [place] [address] PCP - General Family Medicine 01/11/21 Satish Brennan MD [address] [place] [address] Endocrinology 02/22/24 Jacob Morrow 5 [place] [address] Pulmonary Disease 02/22/24 Nicolasa Escobar MD [address] [address] Neurology 02/22/24 Shen Davis MD [address] [place] [address] Nephrology 02/22/24 Ellyn Connolly Roving WinderCivil Lawyer 08/17/23 [facility] 01/11/24 documented as of this encounter
--- OUTSIDE RECORDS SUMMARY | 2024-07-24 16:31 | XMS_ITS | Encounter Summary ---
Author Organization [employer] Address [address] [facility] 7t [place] [address] Care Team Providers Care Lands Resource Manager Name Role Phone Toyin Pollard Primary Care Provider Satish Brennan MD Unavailable Jacob [place]row Unavailable [phone] Nicolasa Escobar MD Unavailable Shen Davis MD Unavailable [phone] Reason for Visit * Reason Onset Date Comments PT1 10/04/2022 Encounter Details Date Type Department Care Team (Late st Contact Info) Description 10/04/2022 Telephone [facility] MEDICINE 230 [place] [address] Toyin Pollard FNP 505 [place], [place] [phone] PT1 Social History Tobacco Use Types Packs/Day [...] Miscellaneous Notes * Telephone Encounter - Nabila Gallito - 10/07/2022 10:48 AM EDT PT 1 Initiated member will receive a letter from with instructions. * Telephone Encounter - Hemalatha Minor - 10/04/2022 12:12 PM EDT GLENDY Hanna from [facility] requesting a pt1 to Location:[address] [facility] [address] [place] [address] Specialty: MRI Date&Time: 10/11/22 @ 9am Inside Sales Executive: n/a Pt does uses a scooter documented in this encounter Plan of Treatment Upcoming Encounters Date Type Department Care Team (Late st Contact Info) Description 08/05/2024 10:30 AM EDT Office Visit [facility] MED & PEDS 505 [place] [address] Toyin Pollard FNP 505 [place] [address] 09/23/2024 11:00 AM EDT Telemedicine [facility] MED & PEDS 505 [place] [address] Margret Hector, RN 505 [place] [address] documented as of this encounter Visit Diagnoses Not on filedocumented in this encounter Additional Health Concerns Assessment Noted Time PHQ-9 Depression Total Score: 0 09/29/19 23 2:03 PM EDT documented as of this encounter Care Teams Lands Resource Manager Relationship Specialty Start Date End Date Toyin Pollard FNP 230 [place] [address] PCP - General Family Medicine 01/11/21 Satish Brennan MD [address] [place] [address] Endocrinology 02/22/24 Jacob Morrow [address] [place] [address] Pulmonary Disease 02/22/24 Nicolasa Escobar MD [address] [place] [address] [address] Neurology 02/22/24 Shen Davis MD [address] [place] [address] Nephrology 02/22/24 Ellyn Connolly Warehouse StockerManager Business Management 08/17/23 [facility] 01/11/24 01/21/24 [facility] 01/11/24 documented as of this encounter
--- OUTSIDE RECORDS SUMMARY | 2024-07-24 16:32 | XMS_ITS | Encounter Summary ---
Author Organization [employer] Address [address] [facility] 7t [place] [address] Care Team Providers Care Revenue Investigator Name Role Phone Toyin Pollard Primary Care Provider Satish Brennan MD Unavailable Jacob Morrow Unavailable [phone] Nicolasa Escobar MD Unavailable [phone] Shen Davis MD Unavailable [phone] Encounter Details Date Type Department Care Team (Late st Contact Info) Description 04/20/2022 Orders Only [facility] MEDICINE 230 [place], [place] [phone] Patrica Grimaldo LPN Social History Tobacco Use [...] Description 08/05/2024 10:30 AM EDT Office Visit [facility] MED & PEDS 505 [place] [address] Toyin Pollard FNP 505 [place] [address] 09/23/2024 11:00 AM EDT Telemedicine [facility] MED & PEDS [address] [place] [address] Margret Hector, RN [address] [place] [address] documented as of this encounter Visit Diagnoses Not on filedocumented in this encounter Care Teams Revenue Investigator Relationship Specialty Start Date End Date Toyin Pollard FNP 230 [place] [address] PCP - General Family Medicine 01/11/21 Satish Brennan MD [address] [place] [address] Endocrinology 02/22/24 Jacob Morrow 5 [place] [address] Pulmonary Disease 02/22/24 Nicolasa Escobar MD [address] [place] [address] Dr [address]ameron 140 [place] [address] Neurology 02/22/24 Shen Davis MD [address] [place] [address] Nephrology 02/22/24 Ellyn Connolly BailiffJewelry Bearing Maker 08/17/23 [facility] 01/11/24 01/21/24 [facility] 01/11/24 documented as of this encounter
--- OUTSIDE RECORDS SUMMARY | 2024-07-24 16:32 | XMS_ITS | Encounter Summary ---
Author Organization [employer] Address [address] [facility] 7t [place] [address] Care Team Providers Care Process Improvement Manager Name Role Phone Toyin Pollard Primary Care Provider [phone] Satish Brennan MD Unavailable Jacob Morrow Unavailable [phone] Nicolasa Escobar MD Unavailable Shen Davis MD Unavailable [phone] Encounter Details Date Type Department Care Team ([facility] Contact Info) Description 05/24/2022 Abstract [facility] MEDICINE 230 [place] [address] Toyin Pollard FNP 505 [place], [place] [phone] Social History Tobacco Use Types Packs/Day Years [...] Upcoming Encounters Date Type Department Care Team ([facility] Contact Info) Description 08/05/2024 10:30 AM EDT Office Visit [facility] MED & PEDS 505 [place] [address] Toyin Pollard FNP 505 [place] [address] 09/23/2024 11:00 AM EDT Telemedicine [facility] MED & PEDS 505 [place] [address] Margret Hector, MINA [address] [place] [address] documented as of this encounter Visit Diagnoses Not on filedocumented in this encounter Care Teams Process Improvement Manager Relationship Specialty Start Date End Date Toyin Pollard FNP [address] [place] [address] PCP - General Family Medicine 01/11/21 Satish Brennan MD [address] [facility] 104 [place] [address] Endocrinology 02/22/24 aJcob Morrow 5 [place] [address] Pulmonary Disease 02/22/24 Nicolasa Escobar MD [address] [place] [address] Neurology 02/22/24 Shen Davis MD [address] [facility] 302 [place] [address] Nephrology 02/22/24 Ellyn Connolly Storeroom ClerkContemporary Or Modern Dancer 08/17/23 [facility] 01/11/24 01/21/24 [facility] 01/11/24 documented as of this encounter
--- OUTSIDE RECORDS SUMMARY | 2024-07-24 16:32 | XMS_ITS | Encounter Summary ---
Author Organization [employer] Address [address] [facility] 7t [place] [address] Care Team Providers Care Handling Tech Name Role Phone Toyin Pollard Primary Care Provider Satish Brennan MD Unavailable [phone] Jacob Morrow Unavailable [phone] Nicolasa Escobar MD Unavailable Shen Davis MD Unavailable [phone] Reason for Visit * Reason Onset Date Comments Care Coordination 07/22/2024 Encounter Details Date Type Department Care Team ([facility] st Contact Info) Description 07/22/2024 Telephone [facility] MED & PEDS 505 [place], [place] [phone] Toyin Pollard FNP 505 [place], [place] [phone] Care Coordination Social History Tobacco Use Types Packs/Day Years [...] the past 12 months, has t he [employer], gas, oil or water [employer] threatened to shut off services in your [...] Telephone Encounter - Kayla Frias RN - 07/22/2024 2:59 PM EDT TC to pt. No answer. Voicemail left with clinic number to call back. documented in this encounter Plan of Treatment Upcoming Encounters Date Type Department Care Team (Late st Contact Info) Description 08/05/2024 10:30 AM EDT Office Visit [facility] MED & PEDS 505 [place] [address] Toyin Pollard FNP 505 [place] [address] 09/23/2024 11:00 AM EDT Telemedicine [facility] MED & PEDS 505 [place] [address] Margret Hector RN 505 [place] [address] documented as of this encounter Goals Goal [...] documented as of this encounter Care Teams Handling Tech Relationship Specialty Start Date End Date Toyin Pollard FNP 230 [place] [address] PCP - General Family Medicine 01/11/21 Satish Brennan MD [address] [place] [address] Endocrinology 02/22/24 Jacob Morrow 5 [place] [address] Pulmonary Disease 02/22/24 Nicolasa Escobar MD [address] [place] [address] Dr [address]on [address] [place] [address] Neurology 02/22/24 Shen Davis MD [address] [place] [address] Nephrology 02/22/24 Ellyn Connolly Hop WeigherAcquisitions Editor 08/17/23 [facility] 01/11/24 documented as of this encounter
--- OUTSIDE RECORDS SUMMARY | 2024-07-24 16:32 | XMS_ITS | Encounter Summary ---
Author Organization [employer] Address [address] [facility] 7t [place] [address] Care Team Providers Care Tool Maintenance Technician Name Role Phone Toyin Pollard Primary Care Provider Satish Brennan MD Unavailable Jacob Morrow Unavailable [phone] Nicolasa Escobar MD Unavailable Shen Davis MD Unavailable [phone] Reason for Visit * Reason Onset Date Comments Durable Medical Equipment 02/19/2024 Encounter Details Date Type Department Care Team (Late st Contact Info) Description 02/19/2024 Telephone [facility] MEDICINE 230 [place] [address] Toyin Pollard FNP 505 [place], [place] [phone] Durable Medical Equipment Social History Tobacco Use [...] t he electric, gas, oil or water [employer] threatened to shut off services in your [...] Ivory LPN - 02/20/2024 10:21 AM EST Chamber Walker did see Rx was sent to [phone] pt has current RX no need for updates, teletypewriter installer Parisa at number below. However no answer and mail box full . Pt has appt tomorrow pt should discussthis need sending to PCP as FYI . Tc from [facility]) requesting a new order for pt to be sent over for Poise sanitary pads , adult diapers oversized . Any questions please get in contact with [facility] at the callback number above. Callback [phone] * Telephone Encounter - Christina Paul - 02/19/2024 3:28 PM EST Tc from [facility] ([employer]) requesting a new order for pt to be sent over for Poise sanitary pads , adult diapers oversized . Any questions please get in contact with [facility] at the callback number above. Callback [phone] documented in this encounter Plan of Treatment Upcoming Encounters Date Type Department Care Team ([facility] st Contact Info) Description 08/05/2024 10:30 AM EDT Office Visit [facility] MED & PEDS 505 [place] [address] Toyin Pollard FNP 505 [place] [address] 09/23/2024 11:00 AM EDT Telemedicine [facility] MED & PEDS 505 [place] [address] Margret Hector RN 505 [place], [place] documented as of this encounter Goals [...] documented as of this encounter Care Teams Tool Maintenance Technician Relationship Specialty Start Date End Date Toyin Pollard FNP [address] [place] [address] PCP - General Family Medicine 01/11/21 Satish Brennan MD [address] [place] [address] Endocrinology 02/22/24 Jacob Morrow 5 [place] [address] Pulmonary Disease 02/22/24 Nicolasa Escobar MD [address] [place] [address] [place] [address] Neurology 02/22/24 Shne Davis MD [address] [place] [address] Nephrology 02/22/24 Ellyn Connolly Geophysical Prospecting SurveyorGrain Elevator Superintendent 08/17/23 [facility] 01/11/24 documented as of this encounter
--- OUTSIDE RECORDS SUMMARY | 2024-07-24 16:32 | XMS_ITS | Encounter Summary ---
Author Organization [employer] Address [address] [facility] 7t [place] [address] Care Team Providers Care Hospital Chief Executive Officer Name Role Phone Juddjhonny Toyin FNP Primary Care Provider [phone] Satish Brennan MD Unavailable Jacob Morrow Unavailable [phone] Nicolasa Escobar MD Unavailable [phone] Shen Davis MD Unavailable [phone] Reason for Visit * Reason Onset Date Comments Appointment 12/27/2022 Encounter Details Date Type Department Care Team (Late st Contact Info) Description 12/27/2022 Telephone [facility] [address] [place], [place] [phone] Nestor Varela DDS [address] [place], [place] [phone] Appointment Social History Tobacco Use Types Packs/Day [...] Visit [facility] 505 [place] [address] Toyin Pollard FNP 505 [place] [address] 09/23/2024 11:00 AM EDT Telemedicine [facility] 505 [place] [address] Margret Hector RN 505 [place] [address] documented as of this encounter Visit Diagnoses Not on filedocumented in this encounter Additional Health Concerns Assessment Noted Time PHQ-9 Depression Total Score: 0 09/29/19 2:03 PM EDT documented as of this encounter Care Teams Hospital Chief Executive Officer Relationship Specialty Start Date End Date Toyin Pollard FNP [address] [place] [address] PCP - General Family Medicine 01/11/21 Satish Brennan MD [address] [place] [address] Endocrinology 02/22/24 Jacob Morrow 5 [place] [address] Pulmonary Disease 02/22/24 Nicolasa Escobar MD [address] [place] [address] Dr [facility] 140 [place] [address] Neurology 02/22/24 Shen Davis MD [address] [place] [address] Nephrology 02/22/24 Ellyn Connolly Pastry Sous ChefTravertine Installer 08/17/23 [facility] 01/11/24 01/21/24 [facility] 01/11/24 documented as of this encounter
--- OUTSIDE RECORDS SUMMARY | 2024-07-24 16:32 | XMS_ITS | Encounter Summary ---
Author Organization [employer] Address 75 [facility] 7t [place] [address] Care Team Providers Care Siding Mechanic Name Role Phone JuddToyin barry LOUIE Primary Care Provider [phone] Satish Brennan MD Unavailable Jacob Morrow Unavailable [phone] Nicolasa Escobar MD Unavailable Shen Davis MD Unavailable [phone] Encounter Details Date Type Department Care Team ([facility] Contact Info) Description 07/21/2022 Orders Only [facility] [address] [place] [address] Ellyn Chery LPN Social History Tobacco Use [...] Upcoming Encounters Date Type Department Care Team ([facility] Contact Info) Description 08/05/2024 10:30 AM EDT Office Visit [facility] [address] [place] [address] Toyin Pollard FNP 505 [place] [address] 09/23/2024 11:00 AM EDT Telemedicine [facility] [address] [place] [address] Margret Hector, RN 505 [place] [address] documented as of this encounter Visit Diagnoses Not on filedocumented in this encounter Care Teams Siding Mechanic Relationship Specialty Start Date End Date Toyin Pollard FNP [address] [place] [address] PCP - General Family Medicine 01/11/21 Satish Brennan MD [address] [facility] 104 [place] [address] Endocrinology 02/22/24 Jacob Morrow 5 [place] [address] Pulmonary Disease 02/22/24 Nicolasa Escobar MD [address] [place] [address] Neurology 02/22/24 Shen Davis MD [address] [facility] 302 [place] [address] Nephrology 02/22/24 Ellyn Connolly Life ConsultantFarm Implement Mechanic 08/17/23 [facility] 01/11/24 01/21/24 [facility] 01/11/24 documented as of this encounter
--- OUTSIDE RECORDS SUMMARY | 2024-07-24 16:32 | XMS_ITS | Encounter Summary ---
Author Organization [employer] Address 75 [facility] 7t [place] [address] Care Team Providers Care General Road Supervisor Name Role Phone Toyin Pollard Primary Care Provider Satish Brennan MD Unavailable Jacob Morrow Unavailable Nicolasa Escobar MD Unavailable Shen Davis MD Unavailable [phone] Reason for Visit * Reason Onset Date Comments Forms/questionnaires 03/03/2022 Encounter Details Date Type Department Care Team ([facility] st Contact Info) Description 03/03/2022 Telephone [facility] 230 [place] [address] Toyin Pollard FNP 505 [place], [place] [phone] Forms/questionnaires Social History Tobacco Use Types Packs/Day [...] to Mela Abdul RN since this is A follow up. Thank you. * Telephone Encounter - Hemalatha Minor - 03/03/2022 12:07 PM EST Tc from N[facility] from [facility] requesting status on 485 form . States they have faxed several times since November and have not yet received back . Informs needs by 03/15/22 if not pt will be discharged from services. Best contact number [phone]. There fax number is [phone] . documented in this encounter Plan of Treatment Upcoming Encounters Date Type Department Care Team (Late st Contact Info) Description 08/05/2024 10:30 AM EDT Office Visit [facility] 505 [place] [address] Toyin Pollard FNP 505 [place] [address] 09/23/2024 11:00 AM EDT Telemedicine [facility] 505 [place] [address] Margret Hector RN 505 [place] [address] documented as of this encounter Visit Diagnoses Not on filedocumented in this encounter Care Teams General Road Supervisor Relationship Specialty Start Date End Date Toyin Pollard FNP [address] [place] [address] PCP - General Family Medicine 01/11/21 Satish Brennan MD [address] [facility] [address] [place] [address] Endocrinology 02/22/24 Jacob Morrow 5 [place] [address] Pulmonary Disease 02/22/24 Nicolasa Escobar MD [address] [place] [address] [place] [address] Neurology 02/22/24 Shen Davis MD [address] [place] [address] Drive [address] [place] [address] Nephrology 02/22/24 Ellyn Connolly Dietary WorkerStation Supervisor 08/17/23 [facility] 01/11/24 01/21/24 [facility] 01/11/24 documented as of this encounter
--- OUTSIDE RECORDS SUMMARY | 2024-07-24 16:32 | XMS_ITS | Encounter Summary ---
Author Organization [employer] Address 75 [facility] 7t [place] [address] Care Team Providers Care Irrigation Equipment Installer Name Role Phone Toyin Pollard Primary Care Provider Satish Brennan MD Unavailable [phone] Jacob Morrow Unavailable [phone] Nicolasa Escobar MD Unavailable Shen Davis MD Unavailable [phone] Reason for Visit * Reason Onset Date Comments PT1 01/30/2023 Encounter Details Date Type Department Care Team (Late st Contact Info) Description 01/30/2023 Telephone [facility] 230 [place] [address] Toyin Pollard FNP 505 [place], [place] [phone] PT1 Social History Tobacco Use Types Packs/Day [...] Date: 03/27/2022 Time: 8:30 Visits: 5 Address: [address] [place] [address] Facility: [facility] Wheel Chair: Scooter and O2 Manager Housekeeping Needed: Yes 1 documented in this encounter Plan of Treatment Upcoming Encounters Date Type Department Care Team (Late st Contact Info) Description 08/05/2024 10:30 AM EDT Office Visit [facility] 505 [place] [address] Toyin Pollard FNP [address] [place] [address] 09/23/2024 11:00 AM EDT Telemedicine [facility] 505 [place] [address] Margret Hector, RN [address] [place] [address] documented as of this encounter Goals Goal [...] documented as of this encounter Care Teams Irrigation Equipment Installer Relationship Specialty Start Date End Date Toyin Pollard FNP [address] [place] [address] PCP - General Family Medicine 01/11/21 Satish Brennan MD [address] [place] [address] Endocrinology 02/22/24 Jacob Morrow 5 [place] [address] Pulmonary Disease 02/22/24 Nicolasa Escobar MD [address] [place] [address] Dr [facility] 140 [place] [address] Neurology 02/22/24 Shen Davis MD [address] [place] [address] Nephrology 02/22/24 Ellyn Connolly Plate And Weld InspectorService Team Leader 08/17/23 [facility] 01/11/24 01/21/24 [facility] 01/11/24 documented as of this encounter
--- OUTSIDE RECORDS SUMMARY | 2024-07-24 16:32 | XMS_ITS | Encounter Summary ---
Author Organization [employer] Address 75 [facility] 7t [place] [address] Care Team Providers Care Tariff Publishing Agent Name Role Phone JuddJohn barrywilfrid PAL[place] Primary Care Provider [phone] Satish Brennan MD Unavailable Jacob Morrow Unavailable [phone] Nicolasa Escobar MD Unavailable Shen Davis MD Unavailable [phone] Reason for Visit * Reason Comments Med Refill Encounter Details Date Type Department Care Team ([facility] st Contact Info) Description 08/21/2023 Refill [facility] 230 [place], [place] [phone] Agustina Toribio MD 230 [place], [place] [phone] Social History Tobacco Use Types Packs/Day Years [...] the past 12 months, has t he [employer], gas, oil or water company threatened to [...] [facility] 505 [place] [address] Toyin Pollard FNP 505 [place] [address] 09/23/2024 11:00 AM EDT Telemedicine [facility] 505 [place] [address] Margret Hector, MINA 505 [place] [address] documented as of this encounter Goals Goal [...] documented as of this encounter Care Teams Tariff Publishing Agent Relationship Specialty Start Date End Date Atul ToyinLOUIE yuen 230 [place] [address] PCP - General Family Medicine 01/11/21 Satish Brennan MD [address] [place] [address] Endocrinology 02/22/24 Jacob Morrow [address] [place] [address] Pulmonary Disease 02/22/24 Nicolasa Escobar MD [address] [place] [address] Dr [facility] 140 [place] [address] Neurology 02/22/24 Shen Davis MD [address] [place] [address] Nephrology 02/22/24 Ellyn Connolly Crane AssemblerPre Sales Technical Engineer 08/17/23 [facility] 01/11/24 01/21/24 [facility] 01/11/24 documented as of this encounter
--- OUTSIDE RECORDS SUMMARY | 2024-07-24 16:32 | XMS_ITS | Encounter Summary ---
Author Organization [employer] Address 75 [facility] 7t [place] [address] Care Team Providers Care Respiratory Manager Name Role Phone Toyin Pollard Primary Care Provider Satish Brennan MD Unavailable [phone] Jacob Morrow Unavailable [phone] Nicolasa Escobar MD Unavailable Shen Davis MD Unavailable [phone] Reason for Visit * Reason Onset Date Comments PT1 08/19/2022 Encounter Details Date Type Department Care Team (Late st Contact Info) Description 08/19/2022 Telephone [facility] 230 [place] [address] Toyin Pollard FNP 505 [place], [place] [phone] PT1 Social History Tobacco Use Types Packs/Day [...] has correct home address but transportation doesn't. Production Lead is resubmitting PT1. PT1 Date: Time: address:[address] [facility] specialty:PCP # visits: installment account checker: yes Wheelchair: yes PT1 Date: Time: address: [address] [facility] specialty: Lens Examiner # visits: installment account checker:yes Wheelchair:yes PT1 Date: Time: address: [address] [facility] specialty: Industrial Engineering Technologist/ Diabetes # visits: installment account checker:yes Wheelchair:yes PT1 Date: Time: address:[address] [facility] specialty: Speech and hearing # visits: installment account checker:yes Wheelchair:yes documented in this encounter Plan of Treatment Upcoming Encounters Date Type Department Care Team (Late st Contact Info) Description 08/05/2024 10:30 AM EDT Office Visit [facility] 505 [place] [address] Toyin Pollard FNP 505 [place] [address] 09/23/2024 11:00 AM EDT Telemedicine [facility] 505 [place] [address] Margret Hector, RN 505 [place] [address] documented as of this encounter Visit Diagnoses Not on filedocumented in this encounter Care Teams Respiratory Manager Relationship Specialty Start Date End Date Toyin Pollard FNP 230 [place] [address] PCP - General Family Medicine 01/11/21 Satish Brennan MD [address] [address] Endocrinology 02/22/24 Jacob Morrow 5 [place] [address] Pulmonary Disease 02/22/24 Nicolasa Escobar MD [address] [place] [address] Dr [facility] 140 [place] [address] Neurology 02/22/24 Shen Davis MD [address] [facility] [address] [place] [address] Nephrology 02/22/24 Ellyn Connolly Sample FinisherYarder Operator 08/17/23 [facility] 01/11/24 01/21/24 [facility] 01/11/24 documented as of this encounter
--- OUTSIDE RECORDS SUMMARY | 2024-07-24 16:32 | XMS_ITS | Encounter Summary ---
Author Organization [employer] Address 75 [facility] 7t [place] [address] Care Team Providers Care Management Department Chair Name Role Phone Toyin Pollard Primary Care Provider Satish Brennan MD Unavailable Jacob Morrow Unavailable [phone] Nicolasa Escobar MD Unavailable Shen Davis MD Unavailable [phone] Encounter Details Date Type Department Care Team (Late Contact Info) Description 07/13/2022 Orders Only [facility] 230 [place] [address] Toyin Pollard FNP 505 [place] [address] Social History Tobacco Use Types Packs/Day Years [...] 10:30 AM EDT Office Visit [facility] 505 [place], [place] [phone] Toyin Pollard FNP 505 [place], [place] [phone] 09/23/2024 11:00 AM EDT Telemedicine [facility] 505 [place] [address] Margret Hector, RN [address] [place] [address] documented as of this encounter Visit Diagnoses Not on filedocumented in this encounter Care Teams Management Department Chair Relationship Specialty Start Date End Date Toyin Pollard FNP [address] [place] [address] PCP - General Family Medicine 01/11/21 Satish Brennan MD [address] [place] [address] Endocrinology 02/22/24 Jacob Morrow 5 [place] [address] Pulmonary Disease 02/22/24 Nicolasa Escobar MD [address] [place] [address] Dr [facility] 140 [place] [address] Neurology 02/22/24 Shen Davis MD [address] [place] [address] Nephrology 02/22/24 Ellyn Connolly Parking InspectorCosmetic Surgeon 08/17/23 [facility] 01/11/24 01/21/24 [facility] 01/11/24 documented as of this encounter
--- OUTSIDE RECORDS SUMMARY | 2024-07-24 16:32 | XMS_ITS | Encounter Summary ---
Author Organization [employer] Address 75 [facility] 7t [place] [address] Care Team Providers Care Senior Science Consultant Name Role Phone Toyin Pollard Primary Care Provider Satish Brennan MD Unavailable Jacob Morrow Unavailable [phone] Nicolasa Escobar MD Unavailable Shen Davis MD Unavailable [phone] Reason for Visit * Reason Onset Date Comments Nurse Triage 03/08/2023 Encounter Details Date Type Department Care Team (Late st Contact Info) Description 03/08/2023 Telephone [facility] 230 [place] [address] Toyin Pollard FNP 505 [place], [place] [phone] Nurse Triage Social History Tobacco Use Types [...] Upcoming Encounters Date Type Department Care Team ([facility] st Contact Info) Description 08/05/2024 10:30 AM EDT Office Visit [facility] 505 [place] [address] Toyin Pollard FNP 505 [place] [address] 09/23/2024 11:00 AM EDT Telemedicine [facility] 505 [place] [address] Margret Hector, RN 505 [place] [address] documented as of this encounter Goals Goal [...] as of this encounter Care Teams Senior Science Consultant Relationship Specialty Start Date End Date Toyin Pollard FNP 230 [place] [address] PCP - General Family Medicine 01/11/21 Satish Brennan MD [address] [place] [address] Endocrinology 02/22/24 Jacob Morrow 5 [place] [address] Pulmonary Disease 02/22/24 Nicolasa Escobar MD [address] [place] [address] [address] [facility] 140 [place] [address] Neurology 02/22/24 Shen Davis MD [address] [place] [address] Nephrology 02/22/24 Ellyn Connolly Elementary Assistant TeacherCommunity Facilitator 08/17/23 [facility] 01/11/24 01/21/24 [facility] 01/11/24 documented as of this encounter
--- OUTSIDE RECORDS SUMMARY | 2024-07-24 16:32 | XMS_ITS | Data Portability ---
Author Organization [place] [facility] Address [address] [place] [id number] Assessment No assessment recorded. Plan of Treatment Reminders Order Date Submit Date Provider Last Modified By Organization Details Last Modified Time Details Appointments None recorded . Lab thyroid panel, serum 2016 017 [facility], [address] [place], [address], 7 12:52:40 lipid panel, serum 2016 017 [facility], [address] [place], [address], 7 12:52:40 CMP, serum or plasma 2016 017 [facility], [address] [place], [address], 7 12:52:41 CBC w/ auto diff 2016 017 [facility], [address] [place], [address], 7 12:52:41 urinalys is, complete 2016 017 [facility], [address] [place], [address], 7 12:52:42 RPR (rapid plasma reagin), serum 2016 017 [facility], [address] [place], [address], 7 12:52:42 HIV (1+2) Ab, rapid, unspecif ied specimen 2016 017 [facility] In-House Test, For Internal Use Only, Do Not Delete/merge, [id number] 7 15:14:46 Referral gynecolo gist referral 2016 017 [email or web address] Not available 7 13:35:43 cardiolo gist referral 2016 017 [email or web address] Not available 7 11:17:59 Procedures None recorded . Surgeries None recorded . Imaging None recorded . Medication Orders clonidin e HCl 0.2 mg tablet [address], [address] [place], [address], 7 13:07:06 clonidin e HCl 0.1 mg tablet [address], [address] [place], [address], 7 13:07:06 atenolol 50 mg tablet 2016 017 [facility], [address] [place], [address], 7 13:10:09 cycloben zaprine 10 mg tablet 2016 017 [facility], [address], [place], [address], 7 17:10:12 tramadol 50 mg tablet 2016 017 [facility], [address] [place], [address], 7 07:59:06 levothyr oxine 75 mcg tablet 2016 017 INTERFACE [facility], [address] [facility], [place], [address], 13:10:09 Patient TargetsNo targets recorded. 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 Referral for Gy necologic examination Referring Physician: Andrés Phan, Internal Medicine, Encounter Date: 04/20/2016 Business Solutions Director Referral for Hy pothyroidism Referring Physician: Andrés Phan, Internal Medicine, Encounter Date: 04/20/2016 Results Created Date Observation Date Name Description Value Unit Range Abnormal Flag Note LastModifiedBy Organization Detail LastModifiedTime 05/24/19 17 05/24/2016 thyro id panel , serum T3 uptake 34 % 22-35 normal Not Available [facility] [address] [place], [address], 05/24/2016 12:52:40 05/24/19 17 05/24/2016 thyro id panel , serum T4 (thyroxine), total 5.4 mcg/d L 4.5-12 .0 normal Not Available [facility] [address] [place], [address], 05/24/2016 12:52:40 05/24/19 17 05/24/2016 thyro id panel , serum free T4 index (T7) 1.8 1.4-3. 8 normal Not Available [facility] [address] [place], [address], 05/24/2016 12:52:40 05/24/19 17 05/24/2016 thyro id panel , serum TSH 16.59 mIU/L high Refer ence Range > or = 20 Years 0.40- 4.50 Pregn ting Range s First trime ster 0.26- 2.66 Secon d trime ster 0.55- 2.73 Third trime ster 0.43- 2.91 Not Available [facility] [address] [place], [address], 05/24/2016 12:52:40 05/24/19 17 05/24/2016 lipid panel , serum cholesterol, total 201 mg/dL 125-20 0 high Not Available [facility] [address] [place], [address], 05/24/2016 12:52:40 05/24/19 17 05/24/2016 lipid panel , serum HDL cholesterol 47 mg/dL > or = 46 normal Not Available [facility] [address] [place], [address], 05/24/2016 12:52:40 05/24/19 17 05/24/2016 lipid panel , serum triglyceride s 173 mg/dL <150 high Not Available [facility] [address] [place], [address], 05/24/2016 12:52:40 05/24/1905/24/2016 lipid panel , serum LDL-choleste rol 119 mg/dL _(romaan c) <130 normal Phil able range <100 mg/dL for patie nts with CHD or diabe adam and <70 mg/dL for diabe tic patie nts with known heart disea se. Not Available [facility] [place], [address], 05/24/2016 12:52:40 05/24/19 17 05/24/2016 lipid panel , serum chol/HDLC ratio 4.3 (calc ) < or = 5.0 normal Not Available [facility] [address] [place], [address], 05/24/2016 12:52:40 05/24/19 17 05/24/2016 lipid panel , serum non HDL cholesterol 154 mg/dL _(romana c) normal Targe t for non-H DL blaine stero l is 30 mg/dL highe r than LDL blaine stero l targe t. Not Available [facility] [address] [place], [address], 05/24/2016 12:52:40 05/24/19 17 05/24/2016 CMP, serum or plasm a glucose 100 mg/dL 65-99 high Fasti ng refer ence inter shayy Not Available [facility] [address] [place] [address], [address], 05/24/2016 12:52:41 05/24/19 17 05/24/2016 CMP, serum or plasm a urea nitrogen (BUN) 12 mg/dL 7-25 normal Not Available [facility] [address], [address], 05/24/2016 12:52:41 05/24/19 17 05/24/2016 CMP, serum or plasm a creatinine 0.74 mg/dL 0.50-1 .10 normal Not Available [facility] [address] [place] [address], [address], 05/24/2016 12:52:41 05/24/19 17 05/24/2016 CMP, serum or plasm a eGFR non-afr. russian 98 mL/mi n/1.7 3m2 > or = 60 normal Not Available [facility] [address] [place] [address] [place], [address], 05/24/2016 12:52:41 05/24/19 17 05/24/2016 CMP, serum or plasm a eGFR 113 mL/mi n/1.7 3m2 > or = 60 normal Not Available [facility] [address] [place] [address] [place], [address], 05/24/2016 12:52:41 05/24/19 17 05/24/2016 CMP, serum or plasm a BUN/creatini ne ratio NOT APPLIC ABLE (calc ) 6-22 Not Available [facility] [address] [place], [address], 05/24/2016 12:52:41 05/24/19 17 05/24/2016 CMP, serum or plasm a sodium 136 mmol/ L 135-14 6 normal Not Available [address], [address], 05/24/2016 12:52:41 05/24/19 17 05/24/2016 CMP, serum or plasm a potassium 4.4 mmol/ L 3.5-5. 3 normal Not Available [address], [address], 05/24/2016 12:52:41 05/24/19 17 05/24/2016 CMP, serum or plasm a chloride 101 mmol/ L 98-110 normal Not Available [address], [address], 05/24/2016 12:52:41 05/24/19 17 05/24/2016 CMP, serum or plasm a carbon dioxide 22 mmol/ L 20-[address] [facility] [address] [place] [address], [address], 05/24/2016 12:52:41 05/24/19 17 05/24/2016 CMP, serum or plasm a calcium 9.3 mg/dL 8.6-10 .2 normal Not Available [address], [address], 05/24/2016 12:52:41 05/24/19 17 05/24/2016 CMP, serum or plasm a protein, total 7.0 g/dL 6.1-8. 1 normal Not Available [address], [address], 05/24/2016 12:52:41 05/24/19 17 05/24/2016 CMP, serum or plasm a albumin 4.0 g/dL 3.6-5. 1 normal Not Available [facility] [address] [place], [address], 05/24/2016 12:52:41 05/24/19 17 05/24/2016 CMP, serum or plasm a globulin 3.0 g/dL_ (calc ) 1.9-3. 7 normal Not Available [facility] [address] [place] [address] [place], [address], 05/24/2016 12:52:41 05/24/19 17 05/24/2016 CMP, serum or plasm a albumin/glob ulin ratio 1.3 (calc ) 1.0-2. 5 normal Not Available [facility] [address] [place] [address] [place], [address], 05/24/2016 12:52:41 05/24/19 17 05/24/2016 CMP, serum or plasm a bilirubin, total 0.3 mg/dL 0.2-1. 2 normal Not Available [facility] [address] [place] [address] [place], [address], 05/24/2016 12:52:41 05/24/19 17 05/24/2016 CMP, serum or plasm a alkaline phosphatase 55 U/L 33-115 normal Not Available [facility] [address] [place] [address] [place], [address], 05/24/2016 12:52:41 05/24/19 17 05/24/2016 CMP, serum or plasm a AST 15 U/L 10-35 normal Not Available [facility] [address] [place] [address] [place], [address], 05/24/2016 12:52:41 05/24/19 17 05/24/2016 CMP, serum or plasm a ALT 13 U/L 6-29 normal Not Available [facility] [address] [place] [address] [place], [address], 05/24/2016 12:52:41 05/24/19 17 05/24/2016 CBC w/ auto diff white blood cell count 9.1 thous and/u L 3.8-10 .[address] [facility] [address] [place] [address], [address], 05/24/2016 12:52:41 05/24/19 17 05/24/2016 CBC w/ auto diff red blood cell count 4.78 radha on/uL 3.80-5 .[address] [facility] [address] [place] [address], [address], 05/24/2016 12:52:41 05/24/19 17 05/24/2016 CBC w/ auto diff hemoglobin 13.8 g/dL 11.7-1 5.[address] [facility] [address] [place] [address], [address], 05/24/2016 12:52:41 05/24/19 17 05/24/2016 CBC w/ auto diff hematocrit 42.7 % 35.0-4 5.[address] [facility] [address] [place] [address], [address], 05/24/2016 12:52:41 05/24/19 17 05/24/2016 CBC w/ auto diff MCV 89.5 fL 80.0-1 [address] [facility] [address] [place] [address], [address], 05/24/2016 12:52:41 05/24/19 17 05/24/2016 CBC w/ auto diff MCH 28.9 pg 27.0-3 3.[address] [facility] [address] [place] [address], [address], 05/24/2016 12:52:41 05/24/19 17 05/24/2016 CBC w/ auto diff MCHC 32.3 g/dL 32.0-3 6.0 normal Not Available [address] [place], [address], 05/24/2016 12:52:41 05/24/19 17 05/24/2016 CBC w/ auto diff RDW 13.7 % 11.0-1 5.0 normal Not Available [address], [address], 05/24/2016 12:52:41 05/24/19 17 05/24/2016 CBC w/ auto diff platelet count 305 thous and/u L 140-40 [address] [facility] [address] [place] [address], [address], 05/24/2016 12:52:41 05/24/19 17 05/24/2016 CBC w/ auto diff MPV 10.6 fL 7.5-12 .5 normal Not Available [address], [address], 05/24/2016 12:52:41 05/24/19 17 05/24/2016 CBC w/ auto diff absolute neutrophils 5369 cells /uL 1500-[address] [facility] [address] [place] [address], [address], 05/24/2016 12:52:41 05/24/19 17 05/24/2016 CBC w/ auto diff absolute lymphocytes 2739 cells /uL 850-39 [address] [facility] [address] [place] [address], [address], 05/24/2016 12:52:41 05/24/19 17 05/24/2016 CBC w/ auto diff absolute monocytes 510 cells /uL 200-95 0 normal Not Available [facility] [address] [place] [address], [address], 05/24/2016 12:52:41 05/24/19 17 05/24/2016 CBC w/ auto diff absolute eosinophils 400 cells /uL 15-500 normal Not Available [facility] [address] [place], [address], 05/24/2016 12:52:41 05/24/19 17 05/24/2016 CBC w/ auto diff absolute basophils 82 cells /uL 0-200 normal Not Available [address], [address], 05/24/2016 12:52:41 05/24/19 17 05/24/2016 CBC w/ auto diff neutrophils 59.0 % normal Not Available [address], [address], 05/24/2016 12:52:41 05/24/19 17 05/24/2016 CBC w/ auto diff lymphocytes 30.1 % normal Not Available [address], [address], 05/24/2016 12:52:41 05/24/19 17 05/24/2016 CBC w/ auto diff monocytes 5.6 % normal Not Available [address], [address], 05/24/2016 12:52:41 05/24/19 17 05/24/2016 CBC w/ auto diff eosinophils 4.4 % normal Not Available [address], [address], 05/24/2016 12:52:41 05/24/19 17 05/24/2016 CBC w/ auto diff basophils 0.9 % normal Not Available [facility] [address], [address], 05/24/2016 12:52:41 05/24/1905/24/2016 urina lysis , compl ete color YELLOW yellow normal Not Available [facility] [address], [address], 05/24/2016 12:52:42 05/24/19 17 05/24/2016 urina lysis , compl ete appearance CLEAR clear normal Not Available [place] [address] [place], [address], 05/24/2016 12:52:42 05/24/19 17 05/24/2016 urina lysis , compl ete specific gravity 1.020 1.001- 1.035 normal Not Available [address] [place], [address], 05/24/2016 12:52:42 05/24/19 17 05/24/2016 urina lysis , compl ete pH 6.0 5.0-8. 0 normal Not Available [facility] [address] [place] [address] [place], [address], 05/24/2016 12:52:42 05/24/19 17 05/24/2016 urina lysis , compl ete glucose NEGATI VE negati ve normal Not Available [address] [place], [address], 05/24/2016 12:52:42 05/24/19 17 05/24/2016 urina lysis , compl ete bilirubin NEGATI VE negati ve normal Not Available [address] [place], [address], 05/24/2016 12:52:42 05/24/19 17 05/24/2016 urina lysis , compl ete ketones NEGATI VE negati ve normal Not Available [facility] [place] [address] [place], [address], 05/24/2016 12:52:42 05/24/19 17 05/24/2016 urina lysis , compl ete occult blood 2+ negati ve abnormal Not Available [place] [address] [place], [address], 05/24/2016 12:52:42 05/24/19 17 05/24/2016 urina lysis , compl ete protein NEGATI VE negati ve normal Not Available [address], [address], 05/24/2016 12:52:42 05/24/19 17 05/24/2016 urina lysis , compl ete nitrite NEGATI VE negati ve normal Not Available [address], [address], 05/24/2016 12:52:42 05/24/19 17 05/24/2016 urina lysis , compl ete leukocyte esterase NEGATI VE negati ve normal Not Available [address], [address], 05/24/2016 12:52:42 05/24/19 17 05/24/2016 urina lysis , compl ete WBC 0-5 /hpf < or = 5 normal Not Available [address], [address], 05/24/2016 12:52:42 05/24/19 17 05/24/2016 urina lysis , compl ete RBC 0-2 /hpf < or = 2 normal Not Available [address], [address], 05/24/2016 12:52:42 05/24/19 17 05/24/2016 urina lysis , compl ete squamous epithelial cells 0-5 /hpf < or = 5 Not Available [facility] [address], [address], 05/24/2016 12:52:42 05/24/19 17 05/24/2016 urina lysis , compl ete bacteria NONE SEEN /hpf none seen normal Not Available [address] [place], [address], 05/24/2016 12:52:42 05/24/19 17 05/24/2016 urina lysis , compl ete hyaline cast NONE SEEN /lpf none seen normal Not Available [facility] [address] [place], [address], 05/24/2016 12:52:42 05/24/19 17 05/24/2016 RPR (rapi [...] ented for this patie nt. Not Available [facility] [address] [place], [address], 05/24/2016 12:52:42 05/24/19 17 05/24/2016 RPR titer RPR titer 1:1 high Not Available [facility] [address] [place], [address], 05/24/2016 12:52:43 Result Notes None recorded. Problems Name Problem SNOMED Code Status Onset Date Resolution Date Notes Provider Name and Address Organization Details Recorded Time Adult health examination Active 2013 USER: [email or web address] Not Available Pending sale to [facility] 4 11:20:28 Problem Notes None recorded. Procedures Surgical History Date Name Laterality Status Provider Name and Address Organization Details Recorded Time 7 HEDIS 1125F Pain Present completed [facility] 04/20/2016 10:46:03 7 HEDIS 3077F Systolic > or equal to 140 mm Hg completed [facility] 04/20/2016 10:46:06 7 HEDIS 3080F Diastolic > or equal to 90 mm Hg completed [facility] 04/20/2016 10:46:09 Tubal Ligation completed [facility] 04/20/2016 10:43:38 Hernia Repair completed [facility] 04/20/2016 10:43:44 Imaging Results None recorded. [...] Address Organization Details Last Updated DateTime 7 291604. 58 g 98 [degF] 165.1 cm 39.8 kg/m2 97 /min 17 /min 166 mm[Hg] 131 mm[Hg] 147 mm[Hg] 117 mm[Hg] 156 mm[Hg] 117 mm[Hg] Radha Ivory [facility] 7 12:24:38 Date Recorded Pain severity - 0-10 verbal numeric rating [Score] - Reported Provider Name and Address Organization Details Last Updated DateTime 04/20/2016 6 Not Available [facility] 8 06:22:32 Social History Question Answer Notes LastModified by Organizat ion Details LastModified Time Tobacco Smoking Status Current Every Day Smoker Radha santiago [facility] 04/20/2016 10:37:28 What Is Your Level Of Alcohol Consumption? None [email or web address] Information not available 04/20/2016 What Is Your Level Of Caffeine Consumption? None [email or web address] Information not available 04/20/2016 Are You Currently Employed? No [email or web address] Information not available 04/20/2016 What Type Of Diet Are You Following? CARDIAC [email or web address] Information not available 04/20/2016 Do You Have A Directive To Physicians? Yes [email or web address] Information not available 04/20/2016 Education 8 [email or web address] Information no t available 04/20/2016 What Is Your Occupation? No [email or web address] Information not available 04/20/2016 Have You Been Exposed To Chemicals Or Toxins? No [email or web address] Information not available 04/20/2016 Have You Been Exposed To Heavy Metals? No [email or web address] Information not available 04/20/2016 Are There Any Guns Present In Your Home? No [email or web address] Information not available 04/20/2016 Hard Of Hearing Or Deaf In One Or Both Ears? No [email or web address] Information not available 04/20/2016 High Blood Pressure Yes [email or web address] Information not available 04/20/2016 High Cholesterol Yes [email or web address] Informat ion not available 04/20/2016 HIV Risk Factors No Informat ion not available 04/20/2016 Legally Blind In One Or Both Eyes? No [email or web address] Information no t available 04/20/2016 Live Alone Or With Others? With Others [email or web address] Information not available 04/20/2016 Have You Recently Traveled To Any Other Country In [place]? No [email or web address] Information not available 04/20/2016 If Yes, During This Travel Have You Been Exposed To Mosquitoes Bites? No [email or web address] Information not available 04/20/2016 Have You Experienced Any Two Of The Following Symptoms? No [email or web address] Information not available 04/20/2016 Rash No [email or web address] Information no t available 04/20/2016 Conjuctivitis No [email or web address] Information not available 04/20/2016 Low Grade Fever No [email or web address] Informati on not available 04/20/2016 Muscle Pain No Information n ot available 04/20/2016 Number Of Sexual Partners 1 [email or web address] Information not available 04/20/2016 Have You Ever Been Tested For HIV? Yes 2 Months Ago Negative [email or web address] Information not available 04/20/2016 Have You Had A Fall In The Past (6) Months? No [email or web address] Information not available 04/20/2016 Have You Ever Had A Fall That Resulted In Broken Bone? Yes Information not available 04/20/2016 Do You Have A Problem With Your Balance? Yes Information not available 04/20/2016 Do You Get Dizzy When You Stand Up Quickly? Yes [email or web address] Information not available 04/20/2016 Do You Have A Problem Wth Your Memory? Yes [email or web address] Information not available 04/20/2016 Marital Status [email or web address] Informatio n not available 04/20/2016 How Many Children Do You Have? 7 [email or web address] Information not available 04/20/2016 Do You Use Protection During Sex? No Information not available 04/20/2016 Difficulty Reading? Yes [email or web address] Information not available 04/20/2016 What Is Your Relationship Status? [email or web address] Information not available 04/20/2016 Seat Belts Used Routinely No [email or web address] Information not available 04/20/2016 Are You Sexually Active? Yes [email or web address] Information not available 04/20/2016 Sexual Partner Has HIV? No Information not available 04/20/2016 Number Of Sexual Partners 1 Information not available 04/20/2016 Sexual Partner Uses IV Drugs? No [email or web address] Information not available 04/20/2016 Smoke Alarm In Home No [email or web address] Information not available 04/20/2016 At What Age Did You Start Smoking Tobacco? 14 [email or web address] Information not available 04/20/2016 Are You Passively Exposed To Smoke? Yes Information no t available 04/20/2016 How Much Tobacco Do You Smoke? 0.25 PPD [email or web address] Information not available 04/20/2016 General Stress Level High [email or web address] Information not available 04/20/2016 How Many Years Have You Smoked Tobacco? 32 [email or web address] Information not available 04/20/2016 Difficulty Watching TV? No [email or web address] Information not available 04/20/2016 Have You Used IV Drugs? No [email or web address] Information not available 04/20/2016 Have You Recently (within The Last 12 Weeks, Or During A Current ) Traveled To Or Lived In A Z[place]-affected Area? No [email or web address] Information not available 04/20/2016 Sex: Unknown Functional Status Question Answer Note LastModified by Organizat ion Details LastModified Time Do you have difficulty walking or climbing stairs? No [email or web address] Information not available 04/20/[address]y driving at night? No [email or web address] Information no t available 04/20/2016 Do you have difficulty doing errands alone? Yes [email or web address] Information not available 04/20/2016 Are you able to care for yourself? Yes Information not available 04/20/2016 Do you have difficulty dressing or bathing? No Information not available 04/20/2016 What is your exercise level? Occasional [email or web address] Information not available 04/20/2016 Mental Status Question Answer Note LastModified by Organization D etails LastModified Time Do you have difficulty concentrating, remembering or making decisions? Yes [email or web address] Information no t available 04/20/2016 Family History Relationship Description Onset Age of this Age Resolved Age Notes LastModified by Organization Details LastModified Time Maternal Grandfather Schizophreni a Not available 2016 10:36:19 Maternal Grandfather Asthma [email or web address] Not available 03/2016 10:36:56 Maternal Grandfather Heart disease [email or web address] Not available 2016 10:37:12 Maternal Grandmother Asthma [email or web address] Not available 03/2016 10:36:49 Maternal Grandmother Heart disease Not available 2016 10:37:18 Medical History No [...] SNOMED-CT Code Diagnosis ICD10 Code Diagnosis Note [id number] [facility] [address] [place] [address] 06/19/2013 00:00:00 [id number] Stephanie barrow MD [facility] [address] [place] [address] 12/30/2015 08:10:23 12/30/2015 10:00:04 [id number] Stephanie barrow MD [facility] [address] [place] [address] 01/29/2016 07:59:02 01/29/2016 15:25:39 [id number] Stephanie barrow MD [facility] [address] [place] [address] 02/26/2016 07:43:57 02/26/2016 09:05:47 [id number] MARI ALTMAN MCP [facility] [address] [place] [id number] 03/28/2016 08:39:33 03/28/2016 11:20:24 [id number] MARI ALTMAN MCP [facility] Mental [facility] [address] [place] [address] 04/05/2016 09:00:14 04/05/2016 09:13:01 [id number] Andra_Ol ler_[facility] Mental Health [address] [place] [address] 04/12/2016 09:08:56 04/12/2016 10:07:05 [id number] Stephanie barrow MD [facility] Mental Health [address] [place] [address] 04/18/2016 08:32:39 04/18/2016 09:40:55 [id number] MARI ALTMAN [facility] Mental Health [address] [place] [address] 04/18/2016 08:35:25 04/18/2016 09:11:18 [id number] Andrés Phan MD [facility] [address] [place] [address] [place] [address] 04/20/2016 10:04:27 04/20/2016 13:35:42 Essential hypertension [id number] I10 Gynecologi c examination 39705064 Z01.419 Hypothyroidism 44584210 E03.9 [id number] MARI ALTMAN [facility] Mental Health [address] [place] [address] 4 05/19/2016 09:13:23 05/20/2016 14:05:08 [id number] Emmanuel Berman [facility] Mental Health [address] [place] [address] 4 05/19/2016 09:17:16 05/19/2016 09:56:41 [id number] Stephanie barrow MD [facility] Mental Health [address] [place] [address] 4 05/23/2016 09:03:45 05/23/2016 10:08:42 [id number] MARI ALTMAN [facility] Mental Health [address] [address] 06/07/2016 14:25:04 06/07/2016 15:23:36 Health Concerns Section Related Observation LastModified by Organization Detai ls LastModified Time None Recorded Concern Status LastModified by Organization Details LastModified Time None Recorded Advance Directives Directive None Recorded Payers Insurance Date Sequence Insurance Name Policy Number Policy Weston Covered Member ID Weston Member ID Guarantor Name 12/30/2015 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
--- OUTSIDE RECORDS SUMMARY | 2024-07-24 16:32 | XMS_ITS | Encounter Summary ---
Author Organization [employer] Address [address] [facility] 7t [place] [address] Care Team Providers Care Graphic Art Designer Name Role Phone Toyin Pollard Primary Care Provider Satish Brennan MD Unavailable [phone] Jacob Morrow Unavailable [phone] Nicolasa Escobar MD Unavailable [phone] Shen Davis MD Unavailable [phone] Reason for Visit * Reason Onset Date Comments ER Follow-up 06/06/2023 Encounter Details Date Type Department Care Team (Late st Contact Info) Description 06/06/2023 Telephone [facility] MEDICINE [address] [place], [place] [phone] Toyin Pollard FNP [address] [place], [place] [phone] ER Follow-up Social History Tobacco Use Types [...] provided by ED. Pt requested appt at [place] and scheduled pt with Dr. Franko Monet for 06/11 at 3:45 pm. Pt verbalized understanding and agreement with plan. * Telephone Encounter - Joseph Lopez - 06/06/2023 3:51 PM EDT Patient calling to report ED visit on : Date: 06/04 Hospital: [facility] Seen for: COPD and bronchitis Patient advised will forward to team nurse for follow up documented in this encounter Plan of Treatment Upcoming Encounters Date Type Department Care Team (Late st Contact Info) Description 08/05/2024 10:30 AM EDT Office Visit [facility] MED & PEDS [address] [place], [place] [phone] Toyin Pollard FNP [address] [place], [place] [phone] 09/23/2024 11:00 AM EDT Telemedicine [facility] MED & PEDS [address] [place] [address] Margret Hector, RN [address] [place], [place] documented as of this encounter Goals [...] documented as of this encounter Care Teams Graphic Art Designer Relationship Specialty Start Date End Date Toyin Pollard FNP [address] [place] [address] PCP - General Family Medicine 01/11/21 Satish Brennan MD [address] [place] [address] Endocrinology 02/22/24 Jacob Morrow [address] [place] [address] Pulmonary Disease 02/22/24 Nicolasa Escobar MD [address] [place] [address] Dr [facility] [place] [address] Neurology 02/22/24 Shen Davis MD [address] [place] [address] Nephrology 02/22/24 Ellyn Connolly Jewelry Sales CoordinatorLead Informatica Developer 08/17/23 [facility] 01/11/24 01/21/24 [facility] 01/11/24 documented as of this encounter
--- OUTSIDE RECORDS SUMMARY | 2024-07-24 16:32 | XMS_ITS | Encounter Summary ---
Author Organization [employer] Address [address] [facility] 7t [place] [address] Care Team Providers Care Salvage Engineering Technician Name Role Phone Toyin Pollard Primary Care Provider Satish Brennan MD Unavailable Jacob Morrow Unavailable [phone] Nicolasa Escobar MD Unavailable Shen Davis MD Unavailable [phone] Reason for Visit * Reason Onset Date Comments PCP Contact 07/24/2024 Encounter Details Date Type Department Care Team ([facility] st Contact Info) Description 07/24/2024 Telephone [facility] CHC MED & PEDS [address] [place], [place] [phone] Toyin Pollard FNP [address] [place], [place] [phone] PCP Contact Social History Tobacco Use Types Packs/Day Years [...] Telephone Encounter - Patricia Elizabeth RN - 07/24/2024 2:49 PM EDT Author notified by Toyin PAL[place] that pt needs to have ambulance transport to hospital due to persistent UTI, positive for ESBL and not responding to oral treatment, and needs to go to ER to receive intravenous treatment as pt is still having symptoms called. EMS called, pt condition report given to dispatch who said ambulance will be on it's way. documented in this encounter Plan of Treatment Upcoming Encounters Date Type Department Care Team ([facility] st Contact Info) Description 08/05/2024 10:30 AM EDT Office Visit [facility] MED & PEDS [address] [place] [address] Toyin Pollard FNP [address] [place] [address] 09/23/2024 11:00 AM EDT Telemedicine [facility] MED & PEDS [address] [place] [address] Margret Hector, RN [address] [place] [address] documented as of this encounter Goals Goal [...] documented as of this encounter Care Teams Salvage Engineering Technician Relationship Specialty Start Date End Date Toyin Pollard FNP [address] [place] [address] PCP - General Family Medicine 01/11/21 Satish Brennan MD [address] [place] [address] Endocrinology 02/22/24 Jacob Morrow 5 [place] [address] Pulmonary Disease 02/22/24 Nicolasa Escobar MD [address] [place] [address] [address] [place] [address] Neurology 02/22/24 Shen Davis MD [address] [facility] [address] [place] [address] Nephrology 02/22/24 Ellyn Connolly Scheduling AssistantNetwork Contract Manager 08/17/23 [facility] 01/11/24 documented as of this encounter
--- OUTSIDE RECORDS SUMMARY | 2024-07-24 16:32 | XMS_ITS | Encounter Summary ---
Author Organization [employer] Address [address] [facility] 7t [place] [address] Care Team Providers Care Lime Burner Name Role Phone Toyin Pollard Primary Care Provider Satish Brennan MD Unavailable Jacob Morrow Unavailable [phone] Nicolasa Escobar MD Unavailable Shen Davis MD Unavailable [phone] Encounter Details Date Type Department Care Team ([facility] Contact Info) Description 07/23/2024 Telephone [facility] CHC MED & PEDS [address] [place], [place] [phone] Toyin Pollard FNP [address] [place], [place] [phone] Social History Tobacco Use Types Packs/Day Years [...] the past 12 months, has t he [employer], gas, oil or water company threatened to [...] * Telephone Encounter - LOUIE Finley - 07/24/2024 1:29 PM EDT If she is still symptomatic, she needs to proceed to [facility] ED for IV/IM antibiotics. Please callher and fax over results from urine culture to [facility] ED. Please keep me posted, thank you! * Telephone Encounter - Gretel Amor RN - 07/23/2024 2:24 PM EDT ----- Message from Toyin Pollard sent at 07/22/2024 6:52 AM EDT ----- She was tx with dose of fosfomycin for ESBL UTI last week. Please call to ask if her symptoms have resolved. If not, will need to tx with additional abx. Thank you. TC placed to pt to assess previous treatment of UTI pt states she is still having painful urinationand increased frequency. Patient also requesting oral medication for yeast to be prescribed with antibiotic. [facility] pharmacy was verified as pt pharmacy documented in this encounter Plan of Treatment Upcoming Encounters Date Type Department Care Team (Late st Contact Info) Description 08/05/2024 10:30 AM EDT Office Visit [facility] MED & PEDS [address] [place] [address] Toyin Pollard FNP [address] [place] [address] 09/23/2024 11:00 AM EDT Telemedicine [facility] MED & PEDS [address] [place], [place] [phone] Margret Hector RN [address] [place], [place] documented as of this encounter Goals Goal Patient Goal Type Associated Problems Recent Progress Patient-Stated? Author Hemoglobin A1c < 7 Result Component 6.4(08/02/2023 4:30 PM EDT) Michelle Rodarte, FabioD documented as of this encounter Visit Diagnoses Not on filedocumented in this encounter Additional Health Concerns Assessment Noted Time PHQ-9 Depression Total Score: 13 024 4:37 PM EDT documented as of this encounter Care Teams Lime Burner Relationship Specialty Start Date End Date Toyin Pollard FNP [address] [place] [address] PCP - General Family Medicine 01/11/21 Satish Brennan MD [address] [facility] [address] [place] [address] Endocrinology 02/22/24 Jacob Morrow 5 [place] [address] Pulmonary Disease 02/22/24 Nicolasa Escobar MD [address] [place] [address] Kameron Solis [place], [place] [phone] Neurology 02/22/24 Shen Davis MD [address] [place] [address] Nephrology 02/22/24 Ellyn Connolly Sawmilling OperatorGeopolitics Teacher 08/17/23 [facility] 01/11/24 documented as of this encounter
--- OUTSIDE RECORDS SUMMARY | 2024-07-24 16:32 | XMS_ITS | Encounter Summary ---
Author Organization [employer] Address [address] [facility] 7t [place] [address] Care Team Providers Care Remote Sensing Surveyor Name Role Phone Toyin Pollard Primary Care Provider Satish Brennan MD Unavailable [phone] Jacob Morrow Unavailable [phone] Nicolasa Escobar MD Unavailable [phone] Shen Davis MD Unavailable [phone] Reason for Visit * Reason Onset Date Comments Durable Medical Equipment 07/06/2022 Encounter Details Date Type Department Care Team (Late st Contact Info) Description 07/06/2022 Telephone [facility] MEDICINE [address] [place] [address] Toyin Pollard FNP [address] [place], [place] [phone] Durable Medical Equipment Social History Tobacco Use [...] [facility] MED & PEDS [address] [place] [address] Toyin Pollard FNP [address] [place] [address] 09/23/2024 11:00 AM EDT Telemedicine [facility] MED & PEDS [address] [place] [address] Margret Hector RN [address] [place] [address] documented as of this encounter Visit Diagnoses Not on filedocumented in this encounter Care Teams Remote Sensing Surveyor Relationship Specialty Start Date End Date Toyin Pollard FNP [address] [place] [address] PCP - General Family Medicine 01/11/21 Satish Brennan MD [address] [facility] [address] [place] [address] Endocrinology 02/22/24 Jacob Morrow 5 [place] [address] Pulmonary Disease 02/22/24 Nicolasa Escobar MD [address] [place] [address] [facility] [address] [place] [address] Neurology 02/22/24 Shen Davis MD [address] [place] [address] Nephrology 02/22/24 Ellyn Connolly Lubrication ServicerGeomorphology Teacher 08/17/23 [facility] 01/11/24 01/21/24 [facility] 01/11/24 documented as of this encounter
--- OUTSIDE RECORDS SUMMARY | 2024-07-24 16:32 | XMS_ITS | Encounter Summary ---
Author Organization [employer] Address [address] [facility] 7t [place] [address] Care Team Providers Care Mounter Automatic Name Role Phone Toyin Pollard Primary Care Provider Satish Brennan MD Unavailable Jacob Morrow Unavailable [phone] Nicolasa Escobar MD Unavailable Shen Davis MD Unavailable [phone] Encounter Details Date Type Department Care Team (Late st Contact Info) Description 03/15/2022 Orders Only [facility] MED & PEDS [address] [place] [address] Ellyn Chery LPN Social History Tobacco Use [...] [facility] MED & PEDS [address] [place] [address] Toyin Pollard FNP [address] [place] [address] 09/23/2024 11:00 AM EDT Telemedicine [facility] MED & PEDS [address] [place] [address] Margret Hector, RN [address] [place] [address] documented as of this encounter Visit Diagnoses Not on filedocumented in this encounter Care Teams Mounter Automatic Relationship Specialty Start Date End Date Toyin Pollard FNP [address] [place] [address] PCP - General Family Medicine 01/11/21 Satish Brennan MD [address] [place] [address] Endocrinology 02/22/24 Jacob Morrow 5 [place] [address] Pulmonary Disease 02/22/24 Nicolasa Escobar MD [address] [place] [address] [facility] [address] [place] [address] Neurology 02/22/24 Shen Davis MD [address] [place] [address] Nephrology 02/22/[address] Maintenance TechnicianReading Coach 08/17/23 [facility] 01/11/24 01/21/24 [facility] 01/11/24 documented as of this encounter
--- OUTSIDE RECORDS SUMMARY | 2024-07-24 16:32 | XMS_ITS | Data Portability ---
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 [...] By Organization Details Last Modified Time 04/28/2021 [id number] CBCD, CMP in am -last Mg therapeutic on diuretics, no need to repeat Total time spent 25 minutes, >50% in [id number] counseling and coordination of care Not available 04/28/2021 14:36:22 05/12/2021 [id number] F/U Appointments : PCP TBD Total time spent on discharge: 40 minutes No scripts needed [email or web address] Not available 05/12/2021 16:53:45 Reason for Referral None Reported. Problems Name Problem SNOMED Code Status Onset Date Resolution Date Notes Provider Name and Address Organization Details Recorded Time Obstructive sleep apnea syndrome 51490855 Active 2019 Michelle Jeanne [address] [facility], [address], [place], [address], [facility] 0 08:58:54 Acute hypercapnic respiratory failure 007896132 Active 2019 Michelle [place] [address] [facility], [address], [place], [address], [facility] 0 08:59:55 Closed fracture of left ankle [id number] 9108 Active [address], [address], [place], [address], [facility] 0 09:03:18 COVID-19 924117914 Active [address], [address], [place], [address], [facility] 0 09:03:58 Hyperkalemi a 62590467 Active [address], [address], [place], [address], [facility] 0 09:05:45 Syncope and collapse 048311968 Active [address], [address], [place], [address], [facility] 0 09:06:17 Hypothyroid ism 57337173 Active [address], [address], [place], [address], [facility] 0 09:07:04 Essential hypertensio n 46363797 Active [address], [address], [place], [address], [facility] 0 09:08:10 Mixed hyperlipide matilde 712265040 Active [address], [address], [place], [address], [facility] 0 09:08:25 Bipolar disorder 94327460 Active [address], [address], [place], [address], [facility] 0 09:09:02 Type 2 diabetes mellitus without complicatio n 954496669 Active [address], [address], [place], [address], [facility] 0 09:13:23 Asthma 283725337 Active [address], [address], [place], [address], [facility] 0 09:13:44 Type 2 diabetes mellitus 31381865 Active 2021 Becka Zafar MD [address], [address], [place], [address], [facility] 2 20:52:53 Morbid obesity 692992599 Active 2021 Becka Zafar MD [address], [address], [place], [address], [facility] 2 20:53:24 Schizoaffec tive disorder, bipolar type 89718243 Active 2021 Becka Zafar MD [address], [address], [place], [address], [facility] 2 21:21:28 Tobacco dependence syndrome 15298458 Active 2021 Becka Zafar MD [address], [address], [place], [address], [facility] 2 21:22:00 Chronic obstructive pulmonary disease 10736260 Active 2021 Becka Zafar MD [address], [address], [place], [address], [facility] 2 21:25:49 Moderate persistent asthma 070994810 Active 2021 Becka Zafar MD [address], [address], [place], [address], [facility] 2 21:25:50 Depressive disorder 70041581 Active 2021 Becka Zafar MD [address], [address], [place], [address], [facility] 2 21:26:11 Chronic constipatio n 762670033 Active 2021 Becka Zafar MD [address], [address], [place], [address], [facility] 2 21:26:21 Vitamin D deficiency 15645407 Active 2021 Becka Zafar MD [address], [address], [place], [address], [facility] 2 21:27:35 Gastroesoph ageal reflux disease without esophagitis 477901530 Active 2021 Becka Zafar MD [address], [place], [address], [facility] 2 21:28:05 Coronary arterioscle rosis 89038763 Active 2021 Becka Zafar MD [address], [address], [place], [address], [facility] 2 21:35:19 Allergic rhinitis 57002204 Active 2021 Becka Zafar MD [address] [facility], [address], [place], [address], [facility] 2 21:36:27 Edema of lower extremity 187933578 Active 2021 Becka Zafar MD [address] [facility], [address], [place], [address], [facility] 2 21:36:46 Cholelithia sis without obstruction 40794164 Active 2021 Becka Zafar MD [address] [facility], [address], [place], [address], [facility] 2 21:43:26 Chronic back pain 284170583 Active 2021 Becka Zafar MD [address] [place] [address], [address], [place], [address], [facility] 2 21:44:01 Problem Notes None recorded. Medical Equipment None Reported. Allergies Allergen ID Allergen Name Allergen Category Reaction Reaction Severity Criticality Documentation Date Start Date Code Code System Note Provider Name and Address Organization Details Recorded Time metformin medicatio n diarrhea hives Not available Not available Not available 03/07/2020 6809 RxNorm Michelle Jeanne [address] [facility], [address], [place], [address], [facility] 0 08:57:57 14095 Haldol medicatio n Not available Not available Not available 03/07/2020 37439 9 RxNorm irrit abili ty SHAISTA LUJAN PA-C [address], [address], [place], [address], [facility] 2 20:03:39 00280 latex environme nt,medica tion rash Not available Not available 03/07/2020 86868 91 RxNorm Michelle Jeanne [address] [facility], [address], [place], [address], [facility] 0 08:58:14 51164 morphine medicatio n rash Not available Not available 04/25/2021 7052 RxNorm SHAISTA LUJAN PA-C [address] [facility], [address], [place], [address], [facility] 2 19:21:55 17451 tetracycl ine medicatio n hives Not available Not available 04/25/2021 30121 RxNorm SHAISTA LUJAN PA-C [address] [facility], [address], [place], [address], [facility] 2 19:22:06 Medications Name Sig Start Date Stop Date Status Note LastModified by Organization Details LastModified Time Latuda 40 mg tablet active [facility] Latuda Not Available Not Available Not Available Vitals Date Recorded Body height Body mass index (BMI) Body weight Heart rate Respiratory rate Body temperature Oxygen saturation Oxygen saturation in Arterial blood by Pulse oximetry Systolic blood pressure Diastolic blood pressure Provider Name and Address Organization Details Last Updated DateTime 2 170.18 cm 59.2 kg/m2 656246. 63 g 65 /min 18 /min 97.2 [degF] 96 % 96 % 119 mm[Hg] 52 mm[Hg] Becka Zafar MD [address] [facility], [address], [place], [address], [facility] 2 12:35:25 Date Recorded Body height Oxygen saturation Oxygen saturation in Arterial blood by Pulse oximetry Systolic blood pressure Diastolic blood pressure Provider Name and Address Organization Details Last Updated DateTime 2 170.18 cm 90 % 90 % 119 mm[Hg] 52 mm[Hg] SHAISTA LUJAN PA-C [address] [facility], [address], [place], [address], [facility] 2 13:53:10 Date Recorded Body height Oxygen saturation Oxygen saturation in Arterial blood by Pulse oximetry Systolic blood pressure Diastolic blood pressure Provider Name and Address Organization Details Last Updated DateTime 2 170.18 cm 91 % 91 % 119 mm[Hg] 52 mm[Hg] SHAISTA LUJAN PA-C [address] [facility], [address], [place], [address], [facility] 2 12:51:39 Date Recorded Body height Respiratory rate Body temperature Heart rate Oxygen saturation Oxygen saturation in Arterial blood by Pulse oximetry Systolic blood pressure Diastolic blood pressure Provider Name and Address Organization Details Last Updated DateTime 2 170.18 cm 18 /min 97.3 [degF] 65 /min 96 % 96 % 119 mm[Hg] 52 mm[Hg] Verenice wade [facility] 2 12:29:49 Date Recorded Body height Body mass index (BMI) Body weight Heart rate Respiratory rate Body temperature Oxygen saturation Oxygen saturation in Arterial blood by Pulse oximetry Systolic blood pressure Diastolic blood pressure Provider Name and Address Organization Details Last Updated DateTime 2 170.18 cm 59.5 kg/m2 111164. 1 g 71 /min 18 /min 97.1 [degF] 90 % 90 % 128 mm[Hg] 87 mm[Hg] SHAISTA LUJAN PA-C [address] [facility], [address], [place], [address], [facility] 2 16:18:59 Social History Question Answer Notes LastModified by Organization Details LastModified Time Tobacco Smoking Status Current Every Day Smoker Michelle Angel [address] [facility], [address], [place], [address], [facility] 03/07/2020 09:16:33 Do You Have An Advance Directive? Yes [email or web address] Information not available 04/25/2021 What Is Your Level Of Alcohol Consumption? None [email or web address] Information not available 04/25/2021 What Is Your Code Status? Full Code All Treatments [email or web address] Information not available 04/25/2021 Do You Or Have You Ever Used E-cigarettes Or Vape? Never Used Electronic Cigarettes Information not available 03/07/2020 Where Do You Live? [facility] Information not available 05/05/2021 Legal Guardian? No Information not available 05/05/2021 Do You Have A Medical Power Of Arrt Technologist? Yes Information not available 03/07/2020 What Was The Date Of Your Most Recent Tobacco Screening? 04/23/2021 [email or web address] Information not available 04/25/2021 Do You Have An Out Of Hospital DNR? No [email or web address] Information not available 04/25/2021 Do You Or Have You Ever Used Smokeless Tobacco? Never Used Smokeless Tobacco Information not available 03/07/2020 How Much Tobacco Do You Smoke? 0.5 PPD [email or web address] Information not available 04/25/2021 Has Tobacco Cessation Counseling Been Provided? Yes [email or web address] Information not available 04/25/2021 On What Date Was Tobacco Cessation Counseling Provided? 04/23/2021 Information not available 04/25/2021 How Many Years Have You Smoked Tobacco? 30 Information not available 03/07/2020 Do You Or Have You Ever Used Any Other Forms Of Tobacco Or Nicotine? No [email or web address] Information not available 04/25/2021 Sex: Unknown Functional Status None recorded. Mental Status None recorded. Family History Relationship Description Onset Age of this Age Resolved Age Notes LastModified by Organization Details LastModified Time Sister Malignant neoplasm of ovary [email or web address] Not available 2021 19:38:51 Medical History No medical history recorded. Gynecological HistoryNo gynecological history recorded. Obstetrics History GPAL:G 0 P 0 0 0 0 Immunizations Vaccine Type Date Status Note Provider Nam e and Address Organization Details Recorded Time COVID-19, mRNA, LNP-S, PF, 30 mcg/0.3 mL dose 04/01/2020 completed SHAISTA LUJAN PA-C [address] [facility], [address], [place], [address], [facility] 04/25/2021 19:22:57 COVID-19, mRNA, LNP-S, PF, 30 mcg/0.3 mL dose 11/20/2020 completed SHAISTA LUJAN PA-C [address] [facility], [address], [place], [address], [facility] 04/25/2021 19:33:52 COVID-19, mRNA, LNP-S, PF, 30 mcg/0.3 mL dose 02/24/2021 completed SHAISTA LUJAN PA-C [address] [facility], [address], [place], [address], [facility] 04/25/2021 19:34:02 Past Encounters Encounter ID Performer Location Encounter Start Date Encounter Closed Date Diagnosis/Indication Diagnosis SNOMED-CT Code Diagnosis ICD10 Code Diagnosis Note [id number] Michelle Angel [facility] on [address] [place] [address] 03/07/2020 08:38:10 03/27/2020 08:36:17 COVID-19 868498703 U07.1 +02/27/20c ompleted course of remdesivir and decadronf/ u cards outpatient for ECHO after isolationm onitor resp status Acute hype rcapnic respiratory failure 441983909 J96.02 see HPIseconda ry to covid. pulmonary edemadiure sed with lV lasix, Tx above for covid txCPAP Essential hypertension 39231819 I10 atenolol 50 mg qd, with hold parameters lasix 40 mg qdlisinopr il 10 mg qdmonitor BPs Hypothyroidism 56602191 E03.9 on replacemen t. monitor Bipolar disorder 3874323 4 F31.9 amitriptyl ine 10 mg qdbenztrop ine 2 mg BIDdepakot e 500 mg in am 1000 mg at HSescitalo pram 10 mg qdhydroxyz ine 50 mg tid prnprazosi n 4 mg at HSseroquel 300 mg at HStrazodon e 1-2 tabs at HS? med management contributi ng to syncopal episodesps ych eval prn Tobacco user 249644147 Z 72.0 90 pack year Hx. encourage cessation. monitor Obstructiv e sleep apnea syndrome 95672491 G47.33 has CPAPmonito r Hyperkalemia 74881830 E8 7.5 resolved in acute caremonito r labs Closed fra cture of left ankle 2644887677 3165062 S82.892D see HPIortho rec's for non surgical management repeat xray in 1 weekf/o ortho outpatient LLE NWBPT OT to eval and treatoxyco done and APAP prn for pain.monit or Syncope and collapse 309 466674 R55 see HPIunclear etiology? med management monitor for recurrence Type 2 johnny betes mellitus without complication 787576565 E11.9 glimepirid e 1 mg in am 4 mg at dinnerglar gine 20 U at HSmonitor accuchecks TID Mixed hyperlipidemia 267 410307 E78.2 on statin. monitor Asthma 690019714 J45.90 9 symbicort dailyspiri va qdsingulai r qd flonase qdmonitor resp status [id number] Emely Loyola MD [facility] on [address] [place] [address] 03/11/2020 06:27:35 03/27/2020 08:52:50 Asthma 759222281 J45.30 albuterol HFA 2 puffs a4h prnSymbico rt 160-4.5: 2 puffs bidmontelu kast 10 mg dailytiotr opium 2 puffs dailywill monitor Closed fra cture of left ankle 3389977449 2060840 S82.892D oxycodone 5 mg q4h prnPT/OT fu ortho COVID-19 086826911 U07.1 recovering after treatment with remdesivir and dexamethas onewill continue to monitor closely Essential hypertension 23790896 I10 furosemide 40 mg dailylisin opril 10 mg dailyateno lol 50 mg dailywill monitor Hypothyroidism 08782710 E03.8 levothyrox ine 137 mcg dailywill monitor Mixed hyperlipidemia 267 533219 E78.2 atorvastat in 20 mg dailywill monitor Type 2 johnny betes mellitus without complication 425818059 E11.9 Lantus 20U qhsglimepi ride 1 mg in morning and 4 mg in eveningwil l monitor Schizoaffe ctive disorder 36429697 F25.8 benztropin e 2 mg bidquetiap ine 300 mg at hs prazosin 4 mg at hsdivalpro ex 500 mg in afternoon and 1000 mg in eveningLat uda 50 mg dailysee meds for mixed anxiety and depressive disorder Mixed anxi ety and depressive disorder 496207573 F41.8 citalopram 10 mg dailytrazo done 50 mg at hshydroxyz ine 50 mg q8h prnamitrip tyline 10 mg at hssee meds for schizoaffe ctive disorderwi ll monitor [id number] LOUIE Pradhan [facility] on [address] [place] [address] 03/16/2020 16:00:58 03/26/2020 16:02:23 Intertrigo 83898745 L30.4 Add Nystatin power BID for 10 days. Monitor to resolution Closed fra cture of left ankle 3547704050 9476197 S82.892D oxycodone 5 mg q4h prncont PT/OT fu ortho needs to be scheduled COVID-19 667021657 U07.1 recovering after treatment with remdesivir and dexamethas oneresp status stable-not requiring K7ztxbpma recovered Essential hypertension 76467963 I10 furosemide 40 mg dailylisin opril 10 mg dailyateno lol 50 mg dailyBP stable, monitor Type 2 johnny betes mellitus without complication 482942346 E11.9 Lantus 20U qhsglimepi ride 1 mg in morning and 4 mg in eveningAdd blood sugars BID [id number] LOUIE Pradhan [facility] on [address] [place] [address] 03/23/2020 13:03:40 03/27/2020 09:40:26 Closed fracture of left ankle 2114458919 0148261 S82.892D Remains NWB on LLEcont PT/OT Has ortho f/u scheduled 04/01Decrea se oxycodone 5 mg Q6h PRN COVID-19 480913700 U07.1 recovering after treatment with remdesivir and dexamethas oneresp status stable-not requiring T6gykqett recovered Essential hypertension 44439885 I10 furosemide 40 mg dailylisin opril 10 mg dailyateno lol 50 mg dailyBP stable, monitor Type 2 johnny betes mellitus without complication 178221078 E11.9 Lantus 20U qhsglimepi ride 1 mg in morning and 4 mg in eveningBlo od sugars well controlled Monitor [id number] LOUIE Pradhan [facility] on [address] [place] [address] 03/24/2020 14:32:40 03/27/2020 11:02:54 Edema of lower extremity 539524520 R60.0 Increase lasix 40 mg dailyMonit or Loose stool 442166157 R1 9.5 Obtain stool for c. diffIf neg, can add imodium PRNMonitor [id number] Kae Combs [facility] on [address] [place] [address] 04/03/2020 11:00:15 04/06/2020 15:10:08 Closed fracture of left ankle 7216635229 2423433 S82.892D Remains NWB on LLEHas ortho f/u scheduled 2/3Decreas e oxycodone 5 mg Q8h PRN x 3 days then Q12h PRN COVID-19 151058125 U07.1 recovering after treatment with remdesivir and dexamethas oneresp status stable-not requiring T7tspbnmx recovered Essential hypertension 21153259 I10 furosemide 40 mg dailylisin opril 10 mg dailyateno lol 50 mg dailyBP stable, monitor Type 2 johnny betes mellitus without complication 208395946 E11.9 Lantus 20 U qhsglimepi ride 1 mg in morning and 4 mg in eveningBlo od sugars well controlled Monitor Edema of l ower extremity 920969488 R60.0 Lasix 40 mg dailyAdd compressio n stocking to RLE [id number] [facility] [address] [place] [address] 04/07/2020 14:06:25 04/10/2020 13:44:07 Closed fracture of left ankle 1161126141 7113382 S82.892D Remains NWB on LLEHas ortho f/u scheduled 2/3Oxycodo ne Q12h PRN COVID-19 147390096 U07.1 recovering after treatment with remdesivir and dexamethas oneresp status stable-not requiring A8scgxbtm recovered Type 2 johnny betes mellitus without complication 262748402 E11.9 Lantus 20 U qhsglimepi ride 1 mg in morning and 4 mg in eveningBlo od sugars well controlled Monitor Edema of l ower extremity 808727690 R60.0 Lasix 40 mg dailyCompr ession stocking to RLE [id number] STACY SALEH [facility] on [address] [place] [address] 04/10/2020 12:43:03 04/13/2020 16:35:27 Closed fracture of left ankle 3583538800 1125479 S82.892D Remains NWB on LLEHas ortho f/u scheduled 2/3Oxycodo ne Q12h PRN- DO NOT SEND [facility] HOME, D/C ON DISCHARGE COVID-19 060007915 U07.1 recovering after treatment with remdesivir and dexamethas oneresp status stable-not requiring W5ctitcpk recovered Type 2 johnny betes mellitus without complication 870989511 E11.9 Lantus 20 U qhsglimepi ride 1 mg in morning and 4 mg in eveningBlo od sugars well controlled Edema of l ower extremity 318527911 R60.0 Lasix 40 mg dailyCompr ession stocking to RLE Asthma 979481409 J45.30 albuterol HFA 2 puffs a4h prnSymbico rt 160-4.5: 2 puffs bidmontelu kast 10 mg dailytiotr opium 2 puffs daily Essential hypertension 63170102 I10 furosemide 40 mg dailylisin opril 10 mg dailyateno lol 50 mg daily Hypothyroidism 20003349 E03.8 levothyrox ine 137 mcg dailY Mixed hyperlipidemia 267 170269 E78.2 atorvastat in 20 mg daily Schizoaffe ctive disorder 48253600 F25.8 benztropin e 2 mg bidquetiap ine 300 mg at hs prazosin 4 mg at hsdivalpro ex 500 mg in afternoon and 1000 mg in eveningLat uda 50 mg dailysee meds for mixed anxiety and depressive disorder Mixed anxi ety and depressive disorder 625300681 F41.8 citalopram 10 mg dailytrazo done 50 mg at hshydroxyz ine 50 mg q8h prnamitrip tyline 10 mg at hssee meds for schizoaffe ctive disorder [id number] SHAISTA LJUAN PA-C [facility] on [address] [place] [address] 04/23/2021 16:28:13 04/27/2021 13:13:44 Recurrent falls 365777479 R29.6 PT/OT Type 2 johnny betes mellitus without complication 590938485 E11.9 Monitor sugars and adjust meds prnOn EMILIE-I for renal protection Morbid obesity 265345154 E66.01 Outpatient f/u with PCP Essential hypertension 34264269 I10 Monitor BPs and adjust meds prn Hypothyroidism 95292751 E03.9 Consider TSH Obstructiv e sleep apnea syndrome 66943524 G47.33 Needs CPAP Migraine 24825274 G43.90 9 f/u prn Schizoaffe ctive disorder, bipolar type 08733237 F25.0 Consider psych consult Tobacco de pendence syndrome 27367385 F17.200 Counseled 5 minutes on the importance of cessation; not interested in quitting Chronic ob structive pulmonary disease 00663701 J44.9 inhalersf/ u prn Depressive disorder 3548 9007 F32.A No SI/HI/AH/V H Chronic constipation 236 952918 K59.09 scheduled and prn bowel medsf/u prn Vitamin D deficiency 347 57227 E55.9 RepletingO utpatient f/u prn Insomnia c o-occurrent and due to medical condition 6608396619 9105 G47.01 Melatonin Gastroesop hageal reflux disease without esophagitis 396717194 K21.9 Not on medsMonito r and f/u prn Liver enzy mes level above reference range 469611382 R74.01 Normal LFTs on recent labs Coronary arteriosclerosis 62756784 I25.10 Statinclar jonas of supposed to be on ASANot on B-delia Moderate p ersistent asthma 626309621 J45.40 as above Allergic rhinitis 763272 04 J30.9 f/u prn Edema of l ower extremity 906602135 R60.0 f/u prn Advance care planning 71 5017557 Z71.89 Met with patient, who is her own decision-messi wilson, in her room. Reviewed each section of the MOLST and answered questions to her satisfacti on. Form completed, signed, and orders written to reflect the following: Full code with all interventi ons. Total time spent 18 minutes [id number] LOUIE MAHAN [facility] on [address] [place] [address] 04/26/2021 14:30:31 05/13/2021 12:50:11 Recurrent falls 381831152 R29.6 PT/OT eval and txsafety precaution s Type 2 johnny betes mellitus without complication 728216820 E11.9 lispro sliding scalelantu s QHSmonitor for s/s of hyper/hypo glycemiaOn EMILIE-I for renal protection Morbid obesity 903688619 E66.01 Outpatient f/u with PCPencoura ge weight loss Essential hypertension 57774608 I10 atenolol 50mg dailylisin opril 10mg qhsMonitor BPs and adjust meds prn Hypothyroidism 54885241 E03.9 monitor TSH prnlevothy roxine 137mcg daily Obstructiv e sleep apnea syndrome 70024514 G47.33 CPAP qhsmonitor sleep pattern Migraine 59817281 G43.90 9 monitor for s/sAPAP prn Schizoaffe ctive disorder, bipolar type 06035260 F25.0 amytripyli ne 10mg qhscitalop cammie 10mg dailyprazo sin 5mg qhsmonitor mood and behaviorps ych prn Tobacco de pendence syndrome 83156477 F17.200 encourage cessation Chronic ob structive pulmonary disease 16002629 J44.9 inhalersf/ u prn Moderate p ersistent asthma 397156858 J45.40 monitor resp statusmoni tor labs prn Depressive disorder 3548 9007 F32.A amytripyli ne 10mg qhscitalop cammie 10mg dailyprazo sin 5mg qhsmonitor mood and behaviorps [facility] prn Chronic constipation 236 671101 K59.09 has been experienci ng bouts of diarrheamo nitor bowel pattern Vitamin D deficiency 347 35269 E55.9 monitor levels prn Insomnia c o-occurrent and due to medical condition 4521879805 9105 G47.01 Melatoninm onitor sleep pattern Gastroesop hageal reflux disease without esophagitis 475418247 K21.9 Not on medsmonito r for GI s/s Liver enzy mes level above reference range 126447830 R74.01 Normal LFTs on recent labsmonito r labs prn Coronary arteriosclerosis 22593535 I25.10 atorvastat in 20mg qhsclarify of supposed to be on ASA - ? Allergic rhinitis 580450 04 J30.9 f/u prnmonitor for s/s Edema of l ower extremity 996507640 R60.0 follow weights [id number] Becka Zafar MD [facility] on [address] [place] [address] 04/27/2021 12:32:27 05/13/2021 13:08:56 Recurrent falls [id number] R29.6 Very deconditio deepika.Needs PT/OT for strengthen ing, balance, gait training, safety and function.C ontinue fall precaution s.Monitor for safety. Morbid obesity 122848534 E66.01 Z68.43 As above. Essential hypertension 78595583 I10 Good control on lasix 40 mg qd, prazosin 5 mg qd and lisinopril 10 mg qd.Monitor BP and labs. Hypothyroidism 98228328 E03.8 Continue levothyrox ine 137 mcg qd.Monitor TSH yearly. Obstructiv e sleep apnea syndrome 29482325 G47.33 Needs CPAP, will see if we can arrange Migraine 15079889 G43.80 9 No current sxs.Amitri pyline and depakote can both be used for prophylaxi s for this, but is primarily on them for mood stabilizer s.Monitor for sxs. Schizoaffe ctive disorder, bipolar type 46079322 F25.0 Continue citalopram 10 mg qd, amitriptyl ine 10 mg qhs, Seroquel 400 mg qhs, Melatonin 5 mg qhs,Latuda 60 mg qam, Depakote 500 mg po q 12 pm and 1000 mg qhs, and Cogentin 1 mg BID.Monito r mood and behaviors. Psych consult Tobacco de pendence syndrome 70262326 F17.210 Not interested in quittingCo ntinue to encourage cessation. Chronic ob structive pulmonary disease 06086974 J43.8 At baseline.C ontinue Singulair 10 mg qd, Symbicort 160-4.5 mcg 2 puffs BID, Spiriva 18 mcg qd and albuterol MDI 2 puffs q 4 hrs prn.Montio r resp. status. Moderate p ersistent asthma 329327675 J45.40 as above. Depressive disorder 3548 9007 F33.1 As above. Chronic constipation 236 138218 K59.09 Continue scheduled and prn bowel medsMonito r bowel function. Vitamin D deficiency 347 52582 E56.8 Continue Vit D 2000 IU qd.Monitor levels. Gastroesop hageal reflux disease without esophagitis 388303060 K21.9 No current sxs on no medsMonito r and f/u prn Coronary arteriosclerosis 18898563 I25.10 Continue meds as above and atorvastat in 20 mg qd.Conside r addition of cardioprot ective meds as above and also ASA and beta delia.Mo nitor for sxs.F/U with cardio as planned. Allergic rhinitis 243306 04 J30.89 Continue singulair as above.Meme tor sxs Edema of l ower extremity 115043731 R60.0 Continue lasix and lisinopril as above.Meme tor Type 2 johnny betes mellitus 83582684 E11.65 Will restart humulin SSI, will increase dose to compare more closely with previous humalog dose, but not restarting premeal humalog yet.Increa se lantus from 40U to 52U.Contin ue glimepirid e 4 mg qd.Conside r adding GLP-1 or SGLT-2 both for better blood sugar control and cardioprot ective effect.Mon itor accuchecks QIDEncoura ge healthy eating and physical activity. Chronic back pain 069164 002 M54.59 Continue APAP and tramadol as above.F/U with pain clinic as planned.Co ntinue to encourage wt. loss and physical activity. Cholelithi asis without obstruction 06306688 K80.20 Not a candidate for elective surgery per surgeon.Co ntinue tramadol 50 mg BID prn and APAP 650 mg q 6 hrs prn.Monito r sxs. [id number] SHAISTA LUJAN PA-C [facility] on [address] [place] [address], [place] [address] 04/28/2021 13:49:24 05/13/2021 14:05:59 Acute urinary tract infection [id number] N39.0 U/A not overly impressive Will decrease [...] prn Uncontroll ed type 2 diabetes mellitus 494818547 E11.65 Sugars globally elevatedAd d hs fingerstic k with correction al insulinInc rease Lantus from 40 ux qhs to 52 ux qhs (based on total coverage 24 ux x 24 hours at 50%)-given body habitus, might benefit from divided dosingMoni tor sugars and adjust meds prnOn EMILIE-I for renal protection Diarrhea 87627640 R19.7 Hold scheduled bowel meds for loose stoolsCola ce changed from scheduled to prn yesterdayd /c Imodium after 1 week [id number] SHAISTA LUJAN PA-C [facility] on [address] [place] [address] 04/29/2021 12:50:48 05/13/2021 14:30:13 Acute urinary tract infection 454792085 N39.0 Resistant to BactrimLik ellie colonized with E. coli rather than true UTI; however, will finish treating-d /c Bactrim-st art macrobid 100 mg po bid x 5 days for simple UTI-benefi ts of abx outweigh risks of non-treatm ent in this patient-no need to extend probiotic since low-risk c-diff with nitrofuran toinMonito r and f/u prn Uncontroll ed type 2 diabetes mellitus 122596371 E11.65 Lantus increased yesterdayM onitor sugars and adjust meds prnOn EMILIE-I for renal protection [id number] LOUIE MAHAN [facility] on [address] [place] [address] 05/05/2021 12:24:28 05/14/2021 09:59:59 Anxiety 80636001 F41.9 pt reporting anxiety and states she has order for prn seroquel at home; found in home medsholdin g off on seroquel now as she had frequent falls at homeadding hydroxyzin e 25mg po bid prnmonitor for effectmoni tor mood and behaviorps [facility] [id number] SHAISTA LUJAN PA-C [facility] on [address] [place] [address] 05/12/2021 16:16:13 05/14/2021 11:26:53 Uncontrolled type 2 diabetes mellitus 449503842 E11.65 Consider split-dose basal insulinMon itor sugars and adjust meds prnOn EMILIE-I for renal protection Recurrent falls 08725110 2 R29.6 PT/OT Chronic ob structive pulmonary disease 51423240 J44.9 continue inhalersf/ u prn Health Concerns Section Related Observation LastModified by Organization Detai ls LastModified Time None Recorded Concern Status LastModified by Organization Details LastModified Time None Recorded Advance Directives Directive Y: Payers Encounter Date Sequence Insurance Name Policy Number Policy Weston Covered Member ID Weston Member ID Guarantor Name 04/27/2021 1 [place] [facility] Elle Lopez [id number] Elle Lopez 04/28/2021 1 [place] [facility] Elle Lopez [id number] Elle Lopez 04/29/2021 1 [place] [facility] Elle Lopez [id number] Elle Lopez 05/05/2021 1 [place] [facility] Elle Lopez [id number] Elle Lopez 05/12/2021 1 [place] [facility] Elle Lopez [id number] Elle Lopez Notes Date Note Type Note [...] remdesivir and dexamethasone. She [facility] on [facility] due to frequent falls. [...] knee pain, has had steroid injections through [facility]. Most recently SI joint injection in 01/2021.Since here she has been participating with rehab, but is limited by pain and fatigue.Her PMH includes HTN, uncontrolled AODM (WcR9T87.6), CHF, s/p COVID 02/2020, asthma, bipolar disorder, schizoaffective disorder, anxiety, PTSD, unsteady gait, migraines, ADHD, morbid obesity, MORGAN on CPAP, hypothyroidism, DM, hypertension, chronic back pain-s/p SI joint injections, with cholelithiasis-not surgical candidate per surgeon-being txed with tramadol, and frequent falls. Becka Zafar MD [address] [place] [address], [facility] [address], [place], [address], [facility] 05/05/2021 21:44:55 04/28/2021 text/html Pt seen for [...] bid x 5 days was added by MD for suspected UTI. Prn Imodium also added. No new complaints today. No hematuria, abd pain, flank pain, or back pain. No f/c/s. SHAISTA LUJAN PA-C [address] [facility], [address], [place], [address], [facility] 04/28/2021 14:37:05 04/29/2021 text/html Pt seen for acut e rounding visit today for UTI. Pt with dysuria earlier this week at which time she was commenced on Bactrim by . Diabetes meds adjusted yesterday (see note for details.) Pt denies dysuria, hematuria, back/abd/flank pain, f/c/s. SHAISTA LUJAN PA-C [address] [facility], [address], [place], [address], [facility] 04/29/2021 13:36:17 05/05/2021 text/html Elle is bein linden seen for an acute rounding visit today. Elle is stating that she is experiencing anxiety. She reports having seroquel prn at home but not here. Will trial hydroyzine 25mg bid prn and monitor for effect. Would hold off for now on adding prn seroquel as she was with frequent falls at home. Verenice santiago, [facility] 05/05/2021 12:35:21 05/12/2021 text/html Pt seen today [...] PTSD; Umbilical hernia; Hx patella fx; Hx KS; Hx tubal ligation; Hx knee surgery; Hx [...] edema; Hx UTI Hospital Patient Received From: [facility] ED Attending MD: Dr. Cooper Goodson/Shaista Lujan PA-C Medications Started at [facility]: Nystatin powder; Bactrim; Imodium; Diflucan; Probiotic; Macrobid; Hydroxyzine Medications Discontinued at [facility] & Why: Imodium (non-use); Bactrim (Ucx resistant); [...] am by [employer]-registered Shaista Lujan PA-C NPI# [id number]; Last MD visit 04/27/21; halfway for medication management and reconciliation and teaching; [...] thin liquids Activity: wheelchair SHAISTA LUJAN PA-C [address] [place] [address], [address], [place], [address], [facility] [employer] 05/12/2021 16:58:12 OBGyn Episode No OBEpisode recorded.
--- OUTSIDE RECORDS SUMMARY | 2024-07-24 16:32 | XMS_ITS | Encounter Summary ---
Author Organization [employer] Address [address] [facility] 7t [place] [address] Care Team Providers Care Retirement Benefits Specialist Name Role Phone Toyin Pollard Primary Care Provider [phone] Satish Brennan MD Unavailable Jacob Morrow Unavailable [phone] Nicolasa Escobar MD Unavailable Shen Davis MD Unavailable [phone] Reason for Visit * Reason Onset Date Comments FYI 01/25/2024 Encounter Details Date Type Department Care Team ([facility] st Contact Info) Description 01/25/2024 Telephone [facility] MEDICINE [address] [place] [address] Toyin Pollard FNP [address] [place], [place] [phone] FYI Social History Tobacco Use Types Packs/Day [...] - 01/25/2024 1:45 PM EST TC from [facility] with [facility] wanted to report pt Discharged from [facility] on 01/22/24 . Had a Cast on right ankle and was removed due to numbness. Pt now has a boot on . documented in this encounter Plan of Treatment Upcoming Encounters Date Type Department Care Team (Late st Contact Info) Description 08/05/2024 10:30 AM EDT Office Visit [facility] MED & PEDS 505 [place] [address] Toyin Pollard FNP [address] [place] [address] 09/23/2024 11:00 AM EDT Telemedicine [facility] MED & PEDS 505 [place] [address] Margret Hector, MINA 505 [place] [address] documented as of this encounter Goals Goal [...] documented as of this encounter Care Teams Retirement Benefits Specialist Relationship Specialty Start Date End Date Toyin Pollard FNP 230 [place] [address] PCP - General Family Medicine 01/11/21 Satish Brennan MD [address] [place] [address] Endocrinology 02/22/24 Jacob Morrow 5 [place] [address] Pulmonary Disease 02/22/24 Nicolasa Escobar MD [address] [place] [address] Dr Kameron 140 [place] [address] Neurology 02/22/24 Shen Davis MD [address] [place] [address] Nephrology 02/22/24 Ellyn Connolly Under SheriffComsec Manager 08/17/23 [facility] 01/11/24 documented as of this encounter
--- OUTSIDE RECORDS SUMMARY | 2024-07-24 16:32 | XMS_ITS | Encounter Summary ---
Author Organization [employer] Address [address] [facility] 7t [place] [address] Care Team Providers Care Clip Baker Name Role Phone Toyin Pollard Primary Care Provider Satish Brennan MD Unavailable Jacob Morrow Unavailable [phone] Nicolasa Escobar MD Unavailable Shen Davis MD Unavailable [phone] Reason for Visit * Reason Onset Date Comments Referral 01/08/2024 Encounter Details Date Type Department Care Team (Late st Contact Info) Description 01/08/2024 Telephone [facility] MEDICINE 230 [place] [address] Toyin Pollard FNP [address] [place], [place] [phone] Referral Social History Tobacco Use Types Packs/Day [...] - 01/08/2024 2:01 PM EDT Tc from Amanda Jennifer from [facility] . Amanda indicates they will process the referral for mpt therapy. documented in this encounter Plan of Treatment Upcoming Encounters Date Type Department Care Team (Late st Contact Info) Description 08/05/2024 10:30 AM EDT Office Visit [facility] MED & PEDS 505 [place] [address] Toyin Pollard FNP 505 [place] [address] 09/23/2024 11:00 AM EDT Telemedicine [facility] MED & PEDS [address] [place] [address] Margret Hector, RN 505 [place] [address] documented as of this encounter Goals Goal [...] documented as of this encounter Care Teams Clip Baker Relationship Specialty Start Date End Date Toyin Pollard FNP [address] [place] [address] PCP - General Family Medicine 01/11/21 Satish Brennan MD [address] [facility] 104 [place] [address] Endocrinology 02/22/24 Jacob Morrow 5 [place] [address] Pulmonary Disease 02/22/24 Nicolasa Escobar MD [address] [place] [address] Neurology 02/22/24 Shen Davis MD [address] [facility] 302 [place] [address] Nephrology 02/22/24 Ellyn Connolly Gang Punch OperatorThread Inspector 08/17/23 [facility] 01/11/24 01/21/24 [facility] 01/11/24 documented as of this encounter
--- OUTSIDE RECORDS SUMMARY | 2024-07-24 16:32 | XMS_ITS | Encounter Summary ---
Author Organization [employer] Address [address] [facility] 7t [place] [address] Care Team Providers Care Financial Intern Name Role Phone Toyin Pollard Primary Care Provider Satish Brennan MD Unavailable Jacob Morrow Unavailable [phone] Nicolasa Escobar MD Unavailable [phone] Shen Davis MD Unavailable [phone] Reason for Visit * Reason Onset Date Comments Durable Medical Equipment 12/19/2023 Encounter Details Date Type Department Care Team ([facility] st Contact Info) Description 12/19/2023 Telephone [facility] MED & PEDS [address] [place], [place] [phone] Toyin Pollard FNP 505 [place], [place] [phone] Durable Medical Equipment Social History Tobacco Use [...] 12/19/2023 10:27 AM EDT Tc from [employer] pillowcase turner calling to see if DME can be which to mass surgical supply due to [employer] not doing delivery. DME Disposable bed pads documented in this encounter Plan of Treatment Upcoming Encounters Date Type Department Care Team (Late st Contact Info) Description 08/05/2024 10:30 AM EDT Office Visit [facility] MED & PEDS 505 [place] [address] Toyin Pollard FNP 505 [place] [address] 09/23/2024 11:00 AM EDT Telemedicine [facility] MED & PEDS 505 [place] [address] Margret Hector, RN 505 [place] [address] documented as of this encounter Goals Goal [...] as of this encounter Care Teams Financial Intern Relationship Specialty Start Date End Date Toyin Pollard FNP 230 [place] [address] PCP - General Family Medicine 01/11/21 Satish Brennan MD [address] [facility] 104 [place] [address] Endocrinology 02/22/24 Jacob Morrow 5 [place] [address] Pulmonary Disease 02/22/24 Nicolasa Escobar MD [address] [place] [address] Dr Kameron 140 [place] [address] Neurology 02/22/24 Shen Davis MD [address] [facility] [address] [place] [address] Nephrology 02/22/24 Ellyn Connolly Knee BolterMaintenance Welder 08/17/23 [facility] 01/11/24 01/21/24 [facility] 01/11/24 documented as of this encounter
--- OUTSIDE RECORDS SUMMARY | 2024-07-24 16:32 | XMS_ITS | Encounter Summary ---
Author Organization [employer] Address [address] [facility] 7t [place] [address] Care Team Providers Care Plastic Shaper Name Role Phone JuddJohn barrywilfrid PALMA Primary Care Provider Satish Brennan MD Unavailable Jacob Morrow Unavailable [phone] Nicolasa Escobar MD Unavailable Shen Davis MD Unavailable [phone] Reason for Visit * Reason Comments Med Refill Encounter Details Date Type Department Care Team ([facility] st Contact Info) Description 08/24/2023 Refill [facility] MEDICINE 230 [place], [place] [phone] Agustina Toribio MD 230 [place], [place] [phone] Social History Tobacco Use Types Packs/Day Years [...] the past 12 months, has t he [employer], gas, oil or water company threatened to [...] [facility] MED & PEDS 505 [place] [address] Toyin Pollard FNP 505 [place] [address] 09/23/2024 11:00 AM EDT Telemedicine [facility] MED & PEDS 505 [place] [address] Margret Hector, MINA 505 [place] [address] documented as of this encounter Goals Goal [...] documented as of this encounter Care Teams Plastic Shaper Relationship Specialty Start Date End Date Atul ToyinLOUIE yuen 230 [place] [address] PCP - General Family Medicine 01/11/21 Satish Brennan MD [address] [place] [address] Endocrinology 02/22/24 Jacob Morrow [address] [place] [address] Pulmonary Disease 02/22/24 Nicolasa Escobar MD [address] [place] [address] [facility] 140 [place] [address] Neurology 02/22/24 Shen Davis MD [address] [place] [address] Nephrology 02/22/24 Ellyn Connolly Concert PromoterTube Pusher 08/17/23 [facility] 01/11/24 01/21/24 [facility] 01/11/24 documented as of this encounter
--- OUTSIDE RECORDS SUMMARY | 2024-07-24 16:32 | XMS_ITS | Encounter Summary ---
Author Organization [employer] Address [address] [facility] 7t [place] [address] Care Team Providers Care Master Hearth Technician Name Role Phone Toyin Pollard Primary Care Provider Satish Brennan MD Unavailable [phone] Jacob Morrow Unavailable [phone] Nicolasa Escobar MD Unavailable Shen Davis MD Unavailable [phone] Reason for Visit * Reason Onset Date Comments Med Refill 07/22/2024 Encounter Details Date Type Department Care Team ([facility] Contact Info) Description 07/22/2024 Refill [facility] MED & PEDS 505 [place], [place] [phone] Toyin Pollard FNP 505 [place], [place] [phone] Dizziness, nonspecific Social History Tobacco Use Types [...] encounter Miscellaneous Notes * Telephone Encounter - Ellyn Chery LPN - 07/22/2024 11:15 AM EDT Last seen 02/21/24. documented in this encounter Plan of Treatment Upcoming Encounters Date Type Department Care Team (Late st Contact Info) Description 08/05/2024 10:30 AM EDT Office Visit [facility] MED & PEDS 505 [place] [address] Toyin Pollard FNP 505 [place] [address] 09/23/2024 11:00 AM EDT Telemedicine [facility] MED & PEDS 505 [place] [address] Margret Hector, RN 505 [place] [address] documented as of this encounter Goals Goal [...] documented as of this encounter Care Teams Master Hearth Technician Relationship Specialty Start Date End Date Toyin Pollard FNP 230 [place] [address] PCP - General Family Medicine 01/11/21 Satish Brennan MD [address] [place] [address] Endocrinology 02/22/24 Jacob Morrow 5 [place] [address] Pulmonary Disease 02/22/24 Nicolasa Escobar MD [address] [place] [address] Dr Kameron 140 [place] [address] Neurology 02/22/24 Shen Davis MD [address] [place] [address] Nephrology 02/22/24 Ellyn Connolly Partner Alliance ManagerPortfolio Consultant 08/17/23 [facility] 01/11/24 documented as of this encounter
--- OUTSIDE RECORDS SUMMARY | 2024-07-24 16:32 | XMS_ITS | Encounter Summary ---
Author Organization [employer] Address [address] [facility] 7t [place] [address] Care Team Providers Care Mental Measurements Teacher Name Role Phone Toyin Pollard Primary Care Provider Satish Brennan MD Unavailable Jacob Morrow Unavailable [phone] Nicolasa Escobar MD Unavailable Shen Davis MD Unavailable [phone] Reason for Visit * Reason Onset Date Comments transportation needed 05/15/2024 Encounter Details Date Type Department Care Team ([facility] st Contact Info) Description 05/15/2024 Telephone [facility] MEDICINE 230 [place] [address] Toyin Pollard FNP 505 [place], [place] [phone] transportation needed Social History Tobacco Use Types [...] - 05/15/2024 2:22 PM EST TC from [facility] Roofer Metal to pt reports pt needing stretcher transportation for upcoming visit with [facility] 05/21/24 . Folder Machine Operator believe they are requesting an ambulance service. documented in this encounter Plan of Treatment Upcoming Encounters Date Type Department Care Team (Late st Contact Info) Description 08/05/2024 10:30 AM EDT Office Visit [facility] MED & PEDS 505 [place] [address] Toyin Pollard FNP 505 [place] [address] 09/23/2024 11:00 AM EDT Telemedicine [facility] MED & PEDS 505 [place] [address] Margret Hector, RN 505 [place] [address] documented as of this encounter Goals Goal [...] documented as of this encounter Care Teams Mental Measurements Teacher Relationship Specialty Start Date End Date Toyin Pollard FNP [address] [place] [address] PCP - General Family Medicine 01/11/21 Satish Brennan MD [address] [place] [address] Endocrinology 02/22/24 Jacob Morrow 5 [place] [address] Pulmonary Disease 02/22/24 Nicolasa Escobar MD [address] [place] [address] Dr Kameron 140 [place] [address] Neurology 02/22/24 Shen Davis MD [address] [place] [address] Nephrology 02/22/24 Ellyn Connolly Fox RaiserChair Lift Operator 08/17/23 [facility] 01/11/24 documented as of this encounter
--- OUTSIDE RECORDS SUMMARY | 2024-07-24 16:32 | XMS_ITS | Encounter Summary ---
Author Organization [employer] Address [address] [facility] 7t [place] [address] Care Team Providers Care Wrapper Operator Name Role Phone Toyin Pollard Primary Care Provider Satish Brennan MD Unavailable [phone] Jacob Morrow Unavailable [phone] Nicolasa Escobar MD Unavailable Shen Davis MD Unavailable [phone] Encounter Details Date Type Department Care Team (Late st Contact Info) Description 09/12/2022 Orders Only [facility] MEDICINE 230 [place], [place] [phone] Patrica Grimaldo LPN Social History Tobacco Use [...] Description 08/05/2024 10:30 AM EDT Office Visit [facility] CHC MED & PEDS 505 [place] [address] Toyin Pollard FNP 505 [place] [address] 09/23/2024 11:00 AM EDT Telemedicine [facility] MED & PEDS [address] [place] [address] Margret Hector, RN [address] [place] [address] documented as of this encounter Visit Diagnoses Not on filedocumented in this encounter Care Teams Wrapper Operator Relationship Specialty Start Date End Date Toyin Pollard FNP 230 [place] [address] PCP - General Family Medicine 01/11/21 Satish Brennan MD [address] [place] [address] Endocrinology 02/22/24 Jacob Morrow 5 [place] [address] Pulmonary Disease 02/22/24 Nicolasa Escoabr MD [address] [place] [address] Dr Melo 140 [place] [address] Neurology 02/22/24 Shen Davis MD [address] [place] [address] Nephrology 02/22/24 Ellyn Connolly Conduit InstallerTax Services Intern 08/17/23 [facility] 01/11/24 01/21/24 [facility] 01/11/24 documented as of this encounter
--- OUTSIDE RECORDS SUMMARY | 2024-07-24 16:32 | XMS_ITS | Encounter Summary ---
Author Organization [employer] Address 75 [facility] 7t [place] [address] Care Team Providers Care Account Executive Sales Representative Name Role Phone Toyin Pollard Primary Care Provider Satish Brennan MD Unavailable Jacob Morrow Unavailable [phone] Nicolasa Escobar MD Unavailable [phone] Shen Davis MD Unavailable [phone] Reason for Visit * Reason Comments Med Refill Encounter Details Date Type Department Care Team (Late st Contact Info) Description 04/12/2024 Refill [facility] MEDICINE [address] [place] [address] Toyin Pollard FNP 505 [place], [place] [phone] Long-term current use of opiate analgesic (Primary [...] 04/12/2024 5:16 PM EST Please schedule for PROVIDER RELATIONS REPRESENTATIVE, thanks! documented in this encounter Plan of Treatment Upcoming Encounters Date Type Department Care Team (Late st Contact Info) Description 08/05/2024 10:30 AM EDT Office Visit [facility] 505 [place] [address] Toyin Pollard FNP 505 [place] [address] 09/23/2024 11:00 AM EDT Telemedicine [facility] 505 [place] [address] Margret Hector, RN 505 [place] [address] documented as of this encounter Goals Goal Patient Goal Type Associated Problems Recent Progress Patient-Stated? Author Hemoglobin A1c < 7 Result Component 6.4(08/02/2023 4:30 PM EDT) Michelle Rodarte PharmD documented as of this encounter Visit Diagnoses Diagnosis Long-term current use of opiate analgesic- Primary Encounter for long-term (current) use of other medications Pain Generalized pain Calculus of gallbladder without cholecystitis without obstruction documented in this encounter Additional Health Concerns Assessment Noted Time PHQ-9 Depression Total Score: 13 024 4:37 PM EDT documented as of this encounter Care Teams Account Executive Sales Representative Relationship Specialty Start Date End Date Toyin Pollard FNP [address] [place] [address] PCP - General Family Medicine 01/11/21 Satish Brennan MD [address] [facility] [address] [facility] 104 [place] [address] Endocrinology 02/22/24 Jacob Morrow 5 [place] [address] Pulmonary Disease 02/22/24 Nicolasa Escobar MD [address] [place] [address] 140 [place] [address] Neurology 02/22/24 Shen Davis MD [address] [facility] 302 [place] [address] Nephrology 02/22/24 Ellyn Connolly Cigar Packer And GraderDigital Forensic Analyst 08/17/23 [facility] 01/11/24 documented as of this encounter
--- OUTSIDE RECORDS SUMMARY | 2024-07-24 16:32 | XMS_ITS | Encounter Summary ---
Author Organization [employer] Address 75 [facility] 7t [place] [address] Care Team Providers Care Information Management Manager Name Role Phone Toyin Pollard Primary Care Provider [phone] Satish Brennan MD Unavailable Jacob Morrow Unavailable [phone] Nicolasa Escobar MD Unavailable Shen Davis MD Unavailable [phone] Encounter Details Date Type Department Care Team (Late st Contact Info) Description 07/20/2023 Orders Only [facility] MEDICINE 230 [place], [place] [phone] Agustina Toribio MD 230 [place], [place] [phone] Hyperkalemia (Primary Dx) Social History Tobacco Use [...] [facility] 505 [place] [address] Toyin Pollard FNP 505 [place] [address] 09/23/2024 11:00 AM EDT Telemedicine [facility] 505 [place] [address] Margret Hector, RN 505 [place] [address] Scheduled Orders Name Type Priority Associated Diagnoses [...] documented as of this encounter Care Teams Information Management Manager Relationship Specialty Start Date End Date Toyin Pollard FNP 230 [place] [address] PCP - General Family Medicine 01/11/21 Satish Brennan MD [address] [place] [address] Endocrinology 02/22/24 Jacob Morrow 5 [place] [address] Pulmonary Disease 02/22/24 Nicolasa Escobar MD [address] [place] [address] Neurology 02/22/24 Shen Davis MD [address] [place] [address] Nephrology 02/22/24 Ellyn Connolly Legal LibrarianInsulation Sprayer 08/17/23 [facility] 01/11/24 01/21/24 [facility] 01/11/24 documented as of this encounter
--- OUTSIDE RECORDS SUMMARY | 2024-07-24 16:32 | XMS_ITS | Encounter Summary ---
Author Organization [employer] Address 75 [facility] 7t [place] [address] Care Team Providers Care Floor Mechanic Name Role Phone Toyin Pollard Primary Care Provider Satish Brennan MD Unavailable [phone] Jacob Morrow Unavailable [phone] Nicolasa Escobar MD Unavailable [phone] Shen Davis MD Unavailable [phone] Encounter Details Date Type Department Care Team (Late st Contact Info) Description 03/29/2023 Orders Only [facility] [address] [place], [place] [phone] Maritza Daniel FNP [address] [place] [address] Social History Tobacco Use Types Packs/Day Years [...] [facility] 505 [place] [address] Toyin Pollard FNP 505 [place] [address] 09/23/2024 11:00 AM EDT Telemedicine [facility] 505 [place] [address] Margret Hector, RN 505 [place] [address] documented as of this encounter Goals Goal [...] documented as of this encounter Care Teams Floor Mechanic Relationship Specialty Start Date End Date Toyin Pollard FNP [address] [place] [address] PCP - General Family Medicine 01/11/21 Satish Brennan MD [address] [place] [address] Endocrinology 02/22/24 Cristhian Jacob [address] [place] [address] Pulmonary Disease 02/22/24 Nicolasa Escobar MD [address] [place] [address] [facility] 140 [place] [address] Neurology 02/22/24 Shen Davis MD [address] [place] [address] Nephrology 02/22/24 Ellyn Connolly Tin PlaterElectrician Office 08/17/23 [facility] 01/11/24 01/21/24 [facility] 01/11/24 documented as of this encounter
--- OUTSIDE RECORDS SUMMARY | 2024-07-24 16:32 | XMS_ITS | Encounter Summary ---
Author Organization [employer] Address 75 [facility] 7t [place] [address] Care Team Providers Care Business Account Executive Name Role Phone Toyin Pollard Primary Care Provider Satish Brennan MD Unavailable Jacob Morrow Unavailable [phone] Nicolasa Escobar MD Unavailable Shen Davis MD Unavailable [phone] Encounter Details Date Type Department Care Team (Late Contact Info) Description 04/26/2022 Abstract [facility] MEDICINE 230 [place] [address] Toyin Pollard FNP 505 [place] [address] Social History Tobacco Use Types Packs/Day Years [...] Description 08/05/2024 10:30 AM EDT Office Visit [facility]S 505 [place], [place] [phone] Toyin Pollard FNP 505 [place], [place] [phone] 09/23/2024 11:00 AM EDT Telemedicine [facility] [address] [place] [address] Margret Hector, RN [address] [place] [address] documented as of this encounter Visit Diagnoses Not on filedocumented in this encounter Care Teams Business Account Executive Relationship Specialty Start Date End Date Toyin Pollard FNP 230 [place] [address] PCP - General Family Medicine 01/11/21 Satish Brennan MD [address] [place] [address] Endocrinology 02/22/24 Jacob Morrow 5 [place] [address] Pulmonary Disease 02/22/24 Nicolasa Escobar MD [address] [place] [address] Dr Kameron 140 [place] [address] Neurology 02/22/24 Shen Davis MD [address] [place] [address] Nephrology 02/22/24 Ellyn Connolly Aviation MechanicFoam Gun Operator 08/17/23 [facility] 01/11/24 01/21/24 [facility] 01/11/24 documented as of this encounter
--- OUTSIDE RECORDS SUMMARY | 2024-07-24 16:32 | XMS_ITS | Encounter Summary ---
Author Organization [employer] Address 75 [facility] 7t [place] [address] Care Team Providers Care Steeping Press Tender Name Role Phone Toyin Pollard Primary Care Provider Satish Brennan MD Unavailable Jacob Morrow Unavailable [phone] Nicolasa Escobar MD Unavailable Shen Davis MD Unavailable [phone] Reason for Visit * Reason Onset Date Comments Durable Medical Equipment 05/16/2024 Encounter Details Date Type Department Care Team (Late st Contact Info) Description 05/16/2024 Telephone [facility] MEDICINE 230 [place] [address] Toyin Pollard FNP 505 [place], [place] [phone] Durable Medical Equipment Social History Tobacco Use [...] [facility] 505 [place] [address] Toyin Pollard FNP 505 [place] [address] 09/23/2024 11:00 AM EDT Telemedicine [facility] P[facility]S 505 [place] [address] Margret Hector, MINA 505 [place] [address] documented as of this encounter Goals Goal [...] documented as of this encounter Care Teams Steeping Press Tender Relationship Specialty Start Date End Date Toyin Pollard FNP 230 [place] [address] PCP - General Family Medicine 01/11/21 Satish Brennan MD [address] [facility] 104 [place] [address] Endocrinology 02/22/24 Jacob Morrow 5 [place] [address] Pulmonary Disease 02/22/24 Nicolasa Escobar MD [address] [place] [address] Dr [facility] 140 [place] [address] Neurology 02/22/24 Shen Davis MD [address] [place] [address] Nephrology 02/22/24 Ellyn Connolly Drying Machine Operator Package YarnsTimekeeper Supervisor 08/17/23 [facility] 01/11/24 documented as of this encounter
--- OUTSIDE RECORDS SUMMARY | 2024-07-24 16:32 | XMS_ITS | Encounter Summary ---
Author Organization [employer] Address 75 [facility] 7t [place] [address] Care Team Providers Care Car Dryer Name Role Phone Toyin Pollard Primary Care Provider Satish Brennan MD Unavailable Jacob Morrow Unavailable [phone] Nicolasa Escobar MD Unavailable [phone] Shen Davis MD Unavailable [phone] Reason for Visit * Reason Comments Med Refill Encounter Details Date Type Department Care Team ([facility] Contact Info) Description 01/24/2023 Refill [facility]EDS 505 [place], [place] [phone] Toyin Pollard FNP 505 [place], [place] [phone] Pain Social History Tobacco Use Types Packs/Day [...] [facility] 505 [place] [address] Toyin Pollard FNP 505 [place] [address] 09/23/2024 11:00 AM EDT Telemedicine [facility] 505 [place] [address] Margret Hector, MINA 505 [place] [address] documented as of this encounter Goals Goal [...] documented as of this encounter Care Teams Car Dryer Relationship Specialty Start Date End Date Toyin Pollard FNP [address] [place] [address] PCP - General Family Medicine 01/11/21 Satish Brennan MD [address] [place] [address] Endocrinology 02/22/24 Cristhian Jacob [address] [place] [address] Pulmonary Disease 02/22/24 Nicolasa Escobar MD [address] [place] [address] Dr [facility] 140 [place] [address] Neurology 02/22/24 Shen Davis MD [address] [place] [address] Nephrology 02/22/24 Ellyn Connolly Supervisor PhotocompositionFinancial Administrative Assistant 08/17/23 [facility] 01/11/24 01/21/24 [facility] 01/11/24 documented as of this encounter
--- OUTSIDE RECORDS SUMMARY | 2024-07-24 16:32 | XMS_ITS | Encounter Summary ---
Author Organization [employer] Address 75 [facility] 7t [place] [address] Care Team Providers Care Tubular Products Fabricator Name Role Phone Toyin Pollard Primary Care Provider [phone] Satish Brennan MD Unavailable [phone] Jacob Morrow Unavailable [phone] Nicolasa Escobar MD Unavailable Shen Davis MD Unavailable [phone] Reason for Visit * Reason Onset Date Comments PT1 11/02/2022 Encounter Details Date Type Department Care Team (Late st Contact Info) Description 11/02/2022 Telephone [facility] MEDICINE 230 [place] [address] Toyin Pollard FNP 505 [place], [place] [phone] PT1 Social History Tobacco Use Types Packs/Day [...] better life requesting a PT1 Location: [facility] Specialty: Provider or clinic appts Date&Time:n/A Billet Driller:N/a documented in this encounter Plan of Treatment Upcoming Encounters Date Type Department Care Team (Late st Contact Info) Description 08/05/2024 10:30 AM EDT Office Visit [facility] MED [facility] PEDS 505 [place] [address] Toyin Pollard FNP 505 [place] [address] 09/23/2024 11:00 AM EDT Telemedicine [facility] 505 [place] [address] Margret Hector RN 505 [place] [address] documented as of this encounter Visit Diagnoses Not on filedocumented in this encounter Additional Health Concerns Assessment Noted Time PHQ-9 Depression Total Score: 0 09/29/19 23 2:03 PM EDT documented as of this encounter Care Teams Tubular Products Fabricator Relationship Specialty Start Date End Date Toyin Pollard FNP 230 [place] [address] PCP - General Family Medicine 01/11/21 Satish Brennan MD [address] [facility] [place] [address] Endocrinology 02/22/24 Jacob Morrow 5 [place] [address] Pulmonary Disease 02/22/24 Nicolasa Escobar MD [address] [place] [address] [place] [address] Neurology 02/22/24 Shen Davis MD [address] [facility] [place] [address] Nephrology 02/22/24 Ellyn Connolly Print Production ManagerFlight Attendant/Inflight Supervisor 08/17/23 [facility] 01/11/24 01/21/24 [facility] 01/11/24 documented as of this encounter
--- OUTSIDE RECORDS SUMMARY | 2024-07-24 16:32 | XMS_ITS | Encounter Summary ---
Author Organization [employer] Address 75 [facility] 7t [place] [address] Care Team Providers Care Supervisor Rice Milling Name Role Phone Toyin Pollard Primary Care Provider Satish Brennan MD Unavailable Jacob Morrow Unavailable [phone] Nicolasa Escobar MD Unavailable Shen Davis MD Unavailable [phone] Encounter Details Date Type Department Care Team (Late Contact Info) Description 04/26/2022 Abstract [facility] MEDICINE 230 [place] [address] Toyin Pollard FNP 505 [place] [address] Social History Tobacco Use Types Packs/Day Years [...] Description 08/05/2024 10:30 AM EDT Office Visit [facility] MED [facility] PEDS 505 [place], [place] [phone] Toyin Pollard FNP 505 [place], [place] [phone] 09/23/2024 11:00 AM EDT Telemedicine [facility] MED & PEDS [address] [place] [address] Margret Hector, RN [address] [place] [address] documented as of this encounter Visit Diagnoses Not on filedocumented in this encounter Care Teams Supervisor Rice Milling Relationship Specialty Start Date End Date Toyin Pollard FNP 230 [place] [address] PCP - General Family Medicine 01/11/21 Satish Brennan MD [address] [place] [address] Endocrinology 02/22/24 Jacob Morrow 5 [place] [address] Pulmonary Disease 02/22/24 Nicolasa Escobar MD [address] [place] [address] Dr [address] 140 [place] [address] Neurology 02/22/24 Shen Davis MD [address] [place] [address] Nephrology 02/22/24 Ellyn Connolly Magnetic Prospecting OperatorHoning Machine Operator Production 08/17/23 [facility] 01/11/24 01/21/24 [facility] 01/11/24 documented as of this encounter
--- OUTSIDE RECORDS SUMMARY | 2024-07-24 16:32 | XMS_ITS | Encounter Summary ---
Author Organization [employer] Address 75 [facility] 7t [place] [address] Care Team Providers Care Sheet Metal Duct Installer Apprentice Name Role Phone Toyin Pollard Primary Care Provider [phone] Satish Brennan MD Unavailable [phone] Jacob Morrow Unavailable [phone] Nicolasa Escobar MD Unavailable [phone] Shen Davis MD Unavailable [phone] Encounter Details Date Type Department Care Team ([facility] Contact Info) Description 05/23/2022 Orders Only [facility] MED & PEDS 505 [place] [address] Ellyn Chery LPN Social History Tobacco Use [...] Upcoming Encounters Date Type Department Care Team ([facility] Contact Info) Description 08/05/2024 10:30 AM EDT Office Visit [facility] MED [facility] PEDS 505 [place] [address] Toyin Pollard FNP 505 [place] [address] 09/23/2024 11:00 AM EDT Telemedicine [facility] MED & PEDS 505 [place] [address] Margret Hector, RN [address] [place] [address] documented as of this encounter Visit Diagnoses Not on filedocumented in this encounter Care Teams Sheet Metal Duct Installer Apprentice Relationship Specialty Start Date End Date Toyin Pollard FNP [address] [place] [address] PCP - General Family Medicine 01/11/21 Satish Brennan MD [address] [facility] [facility] 104 [place] [address] Endocrinology 02/22/24 Jacob Morrow 5 [place] [address] Pulmonary Disease 02/22/24 Nicolasa Escobar MD [address] [place] [address] Neurology 02/22/24 Shen Davis MD [address] [facility] 302 [place] [address] Nephrology 02/22/24 Ellyn Connolly Cardiac Cath Lab TechnologistSenior Php Developer 08/17/23 [facility] 01/11/24 01/21/24 [facility] 01/11/24 documented as of this encounter
--- OUTSIDE RECORDS SUMMARY | 2024-07-24 16:32 | XMS_ITS | Encounter Summary ---
Author Organization [employer] Address 75 [facility] 7t [place] [address] Care Team Providers Care Sole Leveler Name Role Phone Toyin Pollard Primary Care Provider Satish Brennan MD Unavailable Jacob Morrow Unavailable [phone] Nicolasa Escobar MD Unavailable Shen Davis MD Unavailable [phone] Encounter Details Date Type Department Care Team (Late st Contact Info) Description 06/15/2022 Orders Only [facility] & PEDS 505 [place] [address] Ellyn Chery LPN Social History Tobacco Use [...] [facility] 505 [place] [address] Toyin Pollard FNP 505 [place] [address] 09/23/2024 11:00 AM EDT Telemedicine [facility] MED [facility] PEDS [address] [place] [address] Margret Hector, RN [address] [place] [address] documented as of this encounter Visit Diagnoses Not on filedocumented in this encounter Care Teams Sole Leveler Relationship Specialty Start Date End Date Toyin Pollard FNP 230 [place] [address] PCP - General Family Medicine 01/11/21 Satish Brennan MD [address] [place] [address] Endocrinology 02/22/24 Jacob Morrow 5 [place] [address] Pulmonary Disease 02/22/24 Nicolasa Escobar MD [address] [place] [address] Dr [facility] 140 [place] [address] Neurology 02/22/24 Shen Davis MD [address] [place] [address] Nephrology 02/22/24 Ellyn Connolly Floor Covering Printer AssistantFire Alarm Dispatcher 08/17/23 [facility] 01/11/24 01/21/24 [facility] 01/11/24 documented as of this encounter
--- OUTSIDE RECORDS SUMMARY | 2024-07-24 16:33 | XMS_ITS | Encounter Summary ---
Author Organization [employer] Address 75 [facility] 7t [place] [address] Care Team Providers Care Patrol Captain Name Role Phone JuddToyin barry LOUIE Primary Care Provider Satish Brennan MD Unavailable Jacob Morrow Unavailable [phone] Nicolasa Escobar MD Unavailable Shen Davis MD Unavailable [phone] Encounter Details Date Type Department Care Team ([facility] st Contact Info) Description 07/09/2024 Orders Only [facility] MED & PEDS 505 [place], [place] [phone] Francisco Javier Fields MD 505 [place], [place] [phone] Stress incontinence of urine (Primary Dx) Social [...] [facility] 505 [place] [address] Toyin Pollard FNP 505 [place] [address] 09/23/2024 11:00 AM EDT Telemedicine [facility] MED & PEDS 505 [place] [address] Margret eHctor, MINA 505 [place] [address] documented as of this encounter Goals Goal [...] (07/15/2024 9:00 AM EDT) Color Urine Yellow [facility] Appearance Urine Turbid [facility] PH 6.0 5.0 - 9.0 [facility] Glucose Urine UA Negative Negative mg/dL [facility] Urine Blood Trace(A) Negative [facility] Specific [place] - Urine 1.015 1.005 - 1.025 [facility] Urine Protein 30 (1+)(A) Neg-Trace mg/dL [facility] Urine Ketones Negative Negative mg/dL [facility] Nitrite Urine Negative Negative [facility] Leukocyte Esterase Urine Large (3+)(A) Negative [facility] RBC Urine 11-20(A) 0 - 2 /HPF [facility] Urine WBC >50(A) 0 - 5 /HPF [facility] Urine Squamous Epithelial Cell 3-5 0 - 2 /HPF [facility] Other Crystals Urine Present [facility] Urine Bacteria 4+ None Seen [facility] Hyaline Casts, Urine 0-2 0 - 2 /LPF [facility] Urine 07/15/2024 9:00 AM EDT 07/15/2024 1:59 PM EDT Narrative [facility] - 07/15/2024 3:07 PM EDT [id number], Clean Catch us Francisco Javier Fields MD LAB URINE ORDERABLES Final Result [facility] [address] [place] [address] [phone] documented in this encounter Visit Diagnoses Diagnosis Stress incontinence of urine- Primary documented in this encounter Additional Health Concerns Assessment Noted Time PHQ-9 Depression Total Score: 13 0515/2 024 4:37 PM EDT documented as of this encounter Care Teams Patrol Captain Relationship Specialty Start Date End Date Toyin Pollard FNP 230 [place] [address] PCP - General Family Medicine 01/11/21 Satish Brennan MD [address] [place] [address] Endocrinology 02/22/24 Jacob Morrow 5 [place] [address] Pulmonary Disease 02/22/24 Nicolasa Escobar MD [address] [place] [address] [place] [address] Neurology 02/22/24 Shen Davis MD [address] [place] [address] Nephrology 02/22/24 Ellyn Connolly Insole TaperMetrologist 08/17/23 [facility] 01/11/24 documented as of this encounter
--- OUTSIDE RECORDS SUMMARY | 2024-07-24 16:33 | XMS_ITS | Encounter Summary ---
Author Organization [employer] Address [address] [facility] [address] [place] [address] Care Team Providers Care Mica Splitter Name Role Phone Toyin Pollard Primary Care Provider Satish Brennan MD Unavailable [phone] Jacob Morrow Unavailable [phone] Nicolasa Escobar MD Unavailable Shen Davis MD Unavailable [phone] Reason for Visit * Reason Comments Med Refill Encounter Details Date Type Department Care Team ([facility] st Contact Info) Description 07/06/2024 Refill [facility] [address] [place], [place] [phone] Toyin Pollard FNP [address] [place], [place] [phone] Migraine without status migrainosus, not intractable, unspecified [...] [facility] [address] [place] [address] Toyin Pollard FNP [address] [place] [address] 09/23/2024 11:00 AM EDT Telemedicine [facility] [address] [place] [address] Margret Hector, MINA [address] [place] [address] documented as of this encounter Goals Goal [...] documented as of this encounter Care Teams Mica Splitter Relationship Specialty Start Date End Date Toyin Pollard FNP [address] [place] [address] PCP - General Family Medicine 01/11/21 Satish Brnenan MD [address] [place] [address] Endocrinology 02/22/24 Jacob Morrow [address] [place] [address] Pulmonary Disease 02/22/24 Nicolasa Escobar MD [address] [place] [id number] Neurology 02/22/24 Shen Davis MD [address] [place] [address] Nephrology 02/22/24 Ellyn Connolly Physician Neonatology[employer]ber Mill Worker 08/17/23 [facility] 01/11/24 documented as of this encounter
--- NOTE | 2024-07-24 17:18 | MHC.EDTECH ---
Patient inc therefore patient changed
[2024-07-24 17:28] LABS: Appearance Urine Turbid; Color Urine Yellow; Glucose Urine UA Negative (Negative); Leukocyte Esterase Urine Large (3+) (Negative); Nitrite Urine Positive (Negative); PH 6.5 (5.0-9.0); UMIC TRIGGER UACC YES; Urine Blood Moderate (2+) (Negative); Urine Ketones Negative (Negative); Urine Protein 30 (1+) mg/dL (Neg-Trace)
[2024-07-24 17:42] LABS: Bacteria Urine 4+ (None Seen); Hyaline Casts Urine 0-2 /LPF (0-2); RBC Urine 0-2 /HPF (0-2); Squamous Epithelial Cell Urine 0-2 /HPF (0-2); UACC Culture Trigger YES; WBC Urine >50 /HPF (0-5)
[2024-07-24 18:00] VITALS: BP 100/80; PULSE 81; RESP 16; TEMP 36.3; O2SAT 96
--- NOTE | 2024-07-24 18:26 | ED_ITS ---
HPI - Female Genitourinary General Chief complaint: Urogenital-Female Stated complaint: Pain w/ urination, current UTI Time Seen by Provider: 07/24/24 17:55 Source: patient and EMS Mode of arrival: EMS Limitations: no limitations History of Present Illness ED Provider: DR. Quintero HPI Narrative: 54-year-old female with past medical history of morbid obesity, COPD on 08/19 7 L nasal cannula and CPAP at baseline, bed-bound at baseline, DM, hepatitis, HTN, STEMI, ADHD, PTSD, schizoaffective disorder, patient was diagnosed in the emergency department on 07/02 with UTI patient was placed on Macrobid for 5 days, because symptoms persist patient was prescribed another course of antibiotic. Patient returned today for persistent of dysuria and frequency urination. Related Data Home Medications ?Medication ?Instructions ?Recorded ?Confirmed amitriptyline 10 mg tablet 10 mg PO BEDTIME 01/10/20 12/22/23 benztropine 1 mg tablet 1 mg PO BID@1200,2100 01/10/20 12/22/23 lisinopril 10 mg tablet 10 mg PO BEDTIME 01/10/20 12/22/23 montelukast 10 mg tablet 10 mg PO BEDTIME 01/10/20 12/22/23 multivitamin 1 tab PO DAILY@1200 01/10/20 12/22/23 atenolol 50 mg tablet 50 mg PO DAILY@1200 04/20/21 12/22/23 docusate sodium 100 mg capsule 100 mg PO DAILY PRN Constipation 04/20/21 12/22/23 folic acid 1 mg tablet 1 tab PO DAILY 04/20/21 12/22/23 furosemide 40 mg tablet 1 tab PO DAILY 04/20/21 12/22/23 lurasidone 60 mg tablet (Latuda) 60 mg PO DAILY@0800 04/20/21 12/22/23 melatonin 5 mg tablet 10 mg PO BEDTIME PRN insomnia 04/20/21 12/22/23 prazosin 5 mg capsule 1 cap PO BEDTIME 04/20/21 12/22/23 alendronate 70 mg tablet 1 tab PO MO@0600 04/22/21 12/22/23 diclofenac sodium 1 % topical gel 2 g topical BID Pain 04/22/21 12/22/23 fluticasone propionate 50 1 spray intranasal DAILY PRN 04/22/21 12/22/23 mcg/actuation nasal ALLERGIES spray,suspension hydroxyzine HCl 50 mg tablet 1 - 2 tab PO TID PRN Anxiety, 04/22/21 12/22/23 Sleep, Agitation cholecalciferol (vitamin D3) 50 50 mcg PO DAILY 07/20/21 12/22/23 mcg (2,000 unit) tablet acetaminophen 500 mg tablet 500 mg PO Q6H PRN Pain 09/08/21 12/22/23 lidocaine 5 % topical patch 1 patch topical DAILY 09/08/21 12/22/23 Oxygen Home Use 03/25/22 09/29/22 nebulizers 03/25/22 09/29/22 cetirizine 10 mg tablet 10 mg PO DAILY PRN allergies 09/08/22 12/22/23 prazosin 1 mg capsule 1 mg PO BEDTIME 09/08/22 12/22/23 econazole nitrate 1 % topical cream 1 appl topical BID 03/30/23 11/01/23 ammonium lactate 12 % lotion 1 appl topical DAILY PRN Dry Skin 11/01/23 12/22/23 lorazepam 1 mg tablet 1 mg PO DAILY PRN panic attack 11/01/23 12/22/23 naproxen 500 mg tablet 500 mg PO BID 11/01/23 12/22/23 nystatin 100,000 unit/gram topical 1 appl topical BID 11/01/23 12/22/23 powder rimegepant 75 mg disintegrating 75 mg PO NEEDED migraine 11/01/23 12/22/23 tablet (Nurtec ODT) topiramate 50 mg tablet 50 mg PO DAILY 11/01/23 11/01/23 quetiapine 100 mg tablet 100 mg PO DAILY@1200 PRN Anxiety 12/22/23 12/22/23 Previous Rx's ?Medication ?Instructions ?Recorded leg brace (Ankle Brace) #1 ea 01/22/20 pen needle, diabetic 32 gauge x #125 ea 04/01/22 (BD Ultra-Fine Mary Pen Needle) tramadol 50 mg tablet 50 mg PO BID PRN Pain #60 tabs 11/04/23 blood sugar diagnostic (FreeStyle #100 strips 11/30/23 Precision Ronny Strips) divalproex 250 mg tablet,extended 750 mg (3 x 250 mg) PO BEDTIME #90 12/26/23 release 24 hr tabs hospital bed #1 ea 12/26/23 quetiapine 300 mg tablet 300 mg PO BEDTIME #30 tabs 12/26/23 flash glucose sensor (FreeStyle #2 kits 01/04/24 Todd 2 Sensor kit) ketorolac 10 mg tablet 10 mg PO Q6H PRN pain #20 tabs 05/02/24 methocarbamol 750 mg tablet 1,500 mg (2 x 750 mg) PO TID PRN 05/02/24 pain, moderate #24 tabs atorvastatin 40 mg tablet 40 mg PO QAM 90 days #90 tabs 06/20/24 blood sugar diagnostic (FreeStyle #100 ea 06/20/24 Lite Strips) tirzepatide 7.5 mg/0.5 mL 7.5 mg (0.5 mL) subcut QWEEK 28 06/25/24 subcutaneous pen injector days #2 mL (Mounjaro) insulin glargine U-300 conc 300 64 unit (0.2133 mL) subcut BEDTIME 06/26/24 unit/mL (3 mL) subcutaneous pen 90 days #21 mL (Toujeo Max U-300 SoloStar) insulin lispro 100 unit/mL See Rx Instructions subcut 06/28/24 subcutaneous pen (Humalog KwikPen TIDWMEAL 30 days #18 mL (U-100) Insulin) albuterol sulfate 2.5 mg/3 mL 2.5 mg (3 mL) inhalation Q6H PRN 07/17/24 (0.083 %) solution for nebulization shortness of breath or wheezing 30 days #180 mL albuterol sulfate 90 mcg/actuation 2 puff inhalation Q4H PRN 07/17/24 aerosol inhaler (Ventolin HFA) Shortness Of Breath Or Wheezing 30 days #8.5 grams budesonide 160 mcg-glycopyr 9 2 inh inhalation BID 30 days #10.7 07/17/24 mcg-formot 4.8 mcg/actuation HFA grams inhaler (Breztri Aerosphere) flash glucose sensor (FreeStyle #2 ea 07/18/24 Todd 2 Sensor kit) Tirosint 150 mcg capsule 150 mcg PO DAILY #30 caps 07/24/24 (levothyroxine) Allergies Allergy/AdvReac Type Severity Reaction Status Date / Time metformin Allergy Intermediate Diarrhea Verified 07/24/24 15:59 tetracycline Allergy Intermediate hives Verified 07/24/24 15:59 Latex, Natural Rubber Allergy Rash Verified 07/24/24 15:59 haloperidol [From HALDOL] AdvReac Intermediate Irritable Verified 07/24/24 15:59 Review of Systems 2 Review of Systems: All other systems are reviewed and are negative Constitutional: Reports as per HPI and Reports no additional constitutional complaints Eyes: Reports as per HPI and Reports no additional eye complaints Reports system reviewed and no additional complaints, except as documented Cardiovascular: Reports as per HPI and Reports no additional cardiovascular complaints Respiratory: Reports as per HPI and Reports no additional respiratory complaints Gastrointestinal: Reports as per HPI and Reports no additional gastrointestinal complaints Genitourinary: Reports no additional female genitourinary complaints Musculoskeletal: Reports no additional musculoskeletal complaints Skin/Breast: Reports system reviewed and no additional complaints, except as docu Psychiatric: Reports no additional psychiatric complaints Endocrine: Reports no additional endocrine complaints Hematologic/Lymphatic: Reports no additional hematologic/lymphatic complaints Allergic/Immunologic: Reports no additional allergic/immunologic complaints Reports system reviewed and no additional complaints, except as documented and Reports Abnormal speech present [facility] Past Medical History Medical History Right fibular fracture Obesity Osteoporosis Hypercapnia COPD (chronic obstructive pulmonary disease) Hypothyroidism Multinodular thyroid HLD (hyperlipidemia) T2DM (type 2 diabetes mellitus) Pneumonitis Chronic respiratory failure Pulmonary nodules Pneumonia Acute and chronic respiratory failure with hypoxia MORGAN on CPAP Morbid (severe) obesity due to excess calories Chronic restrictive lung disease Obesity due to excess calories DM2 (diabetes mellitus, type 2) HLD (hyperlipidemia) Diabetes Goiter Vitamin D deficiency Hypothyroidism Fibula fracture Hx of fracture of patella Back pain GERD (gastroesophageal reflux disease) Hepatitis History of posttraumatic stress disorder (PTSD) Depression Myocardial infarction AAA (abdominal aortic aneurysm) without rupture Morbid obesity Hernia Umbilical hernia PTSD (post-traumatic stress disorder) ADHD Schizo affective schizophrenia Arthritis Migraine Diabetes HTN (hypertension) Gallstone Aortic aneurysm Sleep apnea Asthma Surgical History Hx of knee surgery Hx of tubal ligation History of incision and drainage Tubal ligation status Family History Family History Father Unknown family medical history Mother Unknown family medical history Sister Ovarian cancer Son No problems noted. Son Depression Son Asthma Bipolar 1 disorder ADHD Daughter No problems noted. Daughter Unknown family medical history Daughter Unknown family medical history Daughter No problems noted. Social History Social History Household Members: Unknown / Unable to assess Housing: Unknown / Unable to assess Are you a primary career developer to a significant other at home: No Do you presently have visiting nurse or other home services: No Unable to assess alcohol history related to: Unable to respond Alcohol intake: never Patient Tobacco Use Status: Former Tobacco user Tobacco use type: Cigarette Cigarette Packs Per Day: 6 Years Smoked: 35 Smoked in Last 30 Days: No e-Cigarette/Vaping Use: Currently Using Use of substances other than those prescribed or required for medical reasons: No Substance Use Type: Marijuana Advance Directives: Yes Advance Directives on File: Yes Advance Directives Date on File: 09/13/21 Patient : No service: No Current occupational status: unemployed Physical Exam 2 Vital Signs: Vital Signs: Last Vital Signs Temp 98.3 F 07/24/24 19:17 Pulse 79 07/24/24 19:17 Resp 20 07/24/24 19:17 BP 111/46 L 07/24/24 19:17 Pulse Ox 98 07/24/24 19:17 O2 Del Method Nasal Cannula 07/24/24 19:17 O2 Flow Rate 7 07/24/24 19:17 Oxygen Flow Rate 6 07/24/24 15:59 BMI result Body Mass Index 79.7 Vital signs have been reviewed and appear to be correct. Blood pressure elevated. Heart rate normal. Respiratory rate normal. Temperature normal. Oxygen saturation normal. Appearance: Alert. Oriented X3. No acute distress. Head: Normal external exam. Normocephalic. Atraumatic. No Henderson signs noted. No raccoon eyes noted Eyes: PERRLA. EOMI. Conjunctiva and sclera normal. Eyelids normal. ENT: TM's Normal. Pharynx normal. Uvula midline. Moist mucous membranes. No trismus noted. No drooling noted. No muffled voice noted. Neck: Normal inspection. Neck supple. FROM. No adenopathy. Thyroid Normal. No meningeal signs. No neck mass noted. CVS: Normal heart rate and rhythm. Heart sound normal. No murmurs noted. Pulses normal throughout. Respiratory: No respiratory distress. Painless inspiration. Breath sounds normal. No wheezes/rales/rhonchi noted. Chest nontender. No accessory muscle usage noted or decreased air movement noted. Abdomen: Soft and nontender. Bowel sounds normal in all 4 quadrants. No distention noted. No organomegaly noted. No visible injury noted. Back: No CVA tenderness. Full range of motion noted. Skin: Skin warm and dry. Normal skin color. Normal skin turgor. No rashes/lesions/lacerations noted. Extremities: No lower extremity edema. Extremities exhibit normal range of motion. Extremities nontender. Neuro: Oriented X 3. Cranial nerve exam: II-XII are grossly intact No motor deficit. No sensory deficit. Reflexes normal. Course Reevaluation(s) Reevaluation #1: 54-year-old female came in for persistence of UTI symptoms patient finished to outpatient oral courses of antibiotic with no relief of patient's symptoms, reviewing urine culture done on 07/02 which is sensitive to only ertapenem. Patient is morbid obesity normally use 6-7 L of nasal cannula and CPAP, patient is at baseline while she is here today. Chronic hyponatremia Patient is asymptomatic currently. Time: 19:59 Medical Decision Making Differential Diagnosis Differential Diagnoses: The differential diagnosis associated with the presentation includes ( UTI, pyelonephritis, electrolyte derangement, severe anemia.) Admission/Observation Consideration of admission/observation: Escalation of care including admission/observation considered Consult Healthcare Provider Management of the patient was discussed with: Hospitalist ( Dr. Perera) Lab Data MDM Lab Attestation statement: I reviewed the patient's lab results. 07/24/24 19:15 07/24/24 19:15 Labs: Lab Results 07/24/24 07/24/24 Range/Units 17:20 19:15 WBC 6.7 (4.8-10.8) X10*3/uL RBC 3.63 L (4.20-5.50) X10*6/uL Hgb 9.8 L (12.0-16.0) g/dl Hct 29.7 L (37.0-47.0) % MCV 81.8 (80.0-98.0) fL MCH 27.0 (27.0-33.0) pg MCHC 33.0 (31.0-35.0) g/dl RDW 15.6 (11.0-16.0) % Plt Count 285 (160-400) X10*3/uL MPV 10.1 (9.4-12.3) fL Immature Gran % (Auto) 0.9 H (0.0-0.4) % Neut % (Auto) 54.6 (45-73) % Lymph % (Auto) 33.1 (20-40) % Toole % (Auto) 8.1 (2-11) % Eos % (Auto) 2.7 (0-4) % Baso % (Auto) 0.6 (0-2) % Lymph # (Auto) 2.2 (1.2-4.9) X10*3/uL Toole # (Auto) 0.5 (0.1-1.2) X10*3/uL Eos # (Auto) 0.2 (0.0-0.4) X10*3/uL Baso # (Auto) 0.0 (0.0-0.2) X10*3/uL Abs Immat Gran (auto) 0.06 H (0.00-0.03) X10*3/uL Absolute Neuts (auto) 3.6 (2.0-8.3) x10*3/uL Absolute Nucleated RBC 0.000 (0.0-0.012) X10*3/uL Nucleated RBC % (auto) 0.0 (0.0-0.2) /100WBC Sodium 127 L (135-145) mmol/L Potassium 4.4 (3.3-5.1) mmol/L Chloride 81 L (96-108) mmol/L Carbon Dioxide 39 H (22-29) mmol/L Anion Gap 11 L (12-20) BUN 7 L (9-16) mg/dL Creatinine 0.65 (0.5-1.4) mg/dL Estim Creat Clear Calc 178.7 Estimated GFR > 60 Random Glucose 154 H (60-115) mg/dL Calcium 9.5 (8.4-10.2) mg/dL Total Bilirubin 0.2 (0.0-1.0) mg/dL Direct Bilirubin < 0.2 (0.0-0.5) mg/dL AST 21 (5-31) U/L ALT 15 (0-31) U/L Alkaline Phosphatase 59 (39-117) U/L Troponin I High Sens 4.4 D (<3.5-17.0) ng/L B-Natriuretic Peptide 12 (<100) pg/mL Total Protein 7.0 (6.5-8.0) g/dL Albumin 4.1 (3.5-5.0) g/dL Lipase 4 L (8-78) U/L Urine Color Yellow Urine Appearance Turbid Urine pH 6.5 (5.0-9.0) Ur Specific [place] 1.010 (1.005-1.025) Urine Protein 30 (1+) H (Neg-Trace) mg/dL Urine Glucose (UA) Negative (Negative) mg/dL Urine Ketones Negative (Negative) mg/dL Urine Blood Moderate (2+) H (Negative) Urine Nitrite Positive H (Negative) Ur Leukocyte Esterase Large (3+) H (Negative) Urine RBC 0-2 (0-2) /HPF Urine WBC >50 H (0-5) /HPF Ur Squamous Epith Cells 0-2 (0-2) /HPF Urine Bacteria 4+ (None Seen) Hyaline Casts 0-2 (0-2) /LPF Influenza Type A (PCR) NEGATIVE (Negative) Influenza Type B (PCR) NEGATIVE (Negative) RSV RNA Qual (PCR) NEGATIVE (Negative) SARS-CoV-2 RNA (RT-PCR) NEGATIVE (Negative) Discharge Plan Discharge Clinical Impression: UTI (urinary tract infection) Patient Disposition: Admitted As Inpatient
[2024-07-24 19:17] VITALS: BP 111/46; PULSE 79; RESP 20; TEMP 36.8; O2SAT 98
[2024-07-24 19:25] LABS: MANUAL DIFF FLAG NO
[2024-07-24 19:26] LABS: Basophils Percent Auto 0.6 % (0-2); Eosinophils Absolute Auto 0.2 X10*3/uL (0.0-0.4); Eosinophils Percent Auto 2.7 % (0-4); Hematocrit 29.7 % (37.0-47.0); Hemoglobin 9.8 g/dl (12.0-16.0); Imm Gran Abs Auto 0.06 X10*3/uL (0.00-0.03); Imm Gran Pct Auto 0.9 % (0.0-0.4); Lymphocytes Absolute Auto 2.2 X10*3/uL (1.2-4.9); Lymphocytes Percent Auto 33.1 % (20-40); Mean Corpuscular Volume 81.8 fL (80.0-98.0); Mean Platelet Volume 10.1 fL (9.4-12.3); Monocytes Absolute Auto 0.5 X10*3/uL (0.1-1.2); Monocytes Percent Auto 8.1 % (2-11); Neutrophils Absolute Auto 3.6 x10*3/uL (2.0-8.3); Neutrophils Percent Auto 54.6 % (45-73); Platelet Count 285 X10*3/uL (160-400); Red Blood Count 3.63 X10*6/uL (4.20-5.50); Red Cell Distribution Width 15.6 % (11.0-16.0); White Blood Count 6.7 X10*3/uL (4.8-10.8)
[2024-07-24 19:44] LABS: Alanine Aminotransferase 15 U/L (0-31); Albumin Level 4.1 g/dL (3.5-5.0); Alkaline Phosphatase 59 U/L (39-117); Anion Gap 11 (12-20); Aspartate Amino Transferase 21 U/L (5-31); Bilirubin Direct < 0.2 mg/dL (0.0-0.5); Bilirubin Total 0.2 mg/dL (0.0-1.0); Blood Urea Nitrogen 7 mg/dL (9-16); Calcium 9.5 mg/dL (8.4-10.2); Carbon Dioxide 39 mmol/L (22-29); Chloride 81 mmol/L (96-108); Creatinine Clr Calc Pharmacy 178.7; Estimated Glomerular Filt Rate > 60; Glucose Random 154 mg/dL (60-115); Lipase 4 U/L (8-78); Potassium 4.4 mmol/L (3.3-5.1); Sodium 127 mmol/L (135-145)
[2024-07-24 19:49] LABS: B Type Natriuretic Peptide 12 pg/mL (<100)
[2024-07-24 19:51] LABS: Troponin-I High Sensitivity 4.4 ng/L (<3.5-17.0)
[2024-07-24 20:04] LABS: Influenza A PCR NEGATIVE (Negative); Influenza B PCR NEGATIVE (Negative); Resp Syncy Virus RNA Qual PCR NEGATIVE (Negative); SARS COV2 PCR INHOUSE NEGATIVE (Negative)
[2024-07-24] MEDS: Ertapenem Sodium 1 GM VIAL IVPUSH (21:02)
[2024-07-24 21:12] LABS: Venous Blood Gas Refer to POC result
[2024-07-24 21:12] LABS: VBG Base Excess 20.4 mmol/L; VBG HCO3 45 mmol/L (22-26); VBG pCO2 51 mmHg; VBG pH 7.55 (7.32-7.43); VBG pO2 57 mmHg
[2024-07-24 21:30] LABS: Lactic Acid 2.7 mmol/L (0.5-2.0)
--- NOTE | 2024-07-24 21:48 | P.HPHOSP_ITS ---
History of Present Illness Date of Service: 07/24/24 <SITA Gomez Last Filed: 07/24/24 22:03> Attending physician on admission: Carolyn Perera <SITA Gomez Last Filed: 07/24/24 22:03> Chief Complaint: dysuria <SITA Gomez Last Filed: 07/24/24 22:03> patient is a 54-year-old female with a past medical history significant for morbid obesity, bed-bound, HLD, chronic respiratory failure with hypoxia and hypercapnia, obesity hypoventilation and chronic pulmonary edema on 7 L NC and CPAP at night, mood disorder, PTSD, history NSTEMI, HTN, insulin-dependent diabetes, GERD and hepatitis, who presented to the ED due to ongoing dysuria after to outpatient treatment for urinary tract infection. Her urine culture on 07/02 here came back sensitive to ertapenem only. She was initially treated with Macrobid x5 days without improvement and an additional antibiotic ( unknown ). The patient denies any hematuria, abdominal pain, diarrhea, nausea, vomiting, fever, chills, headache, cough, shortness of breath or chest pain. < SITA Gomez Last Filed: 07/24/24 22:03> Review of Systems 2 Constitutional: Constitutional: Denies body ache(s), Denies chills, Denies fatigue, Denies fever(s) and Denies headache(s) <SITA Gomez Last Filed: 07/24/24 22:03> Eyes: Eyes: Denies change in vision and Denies photophobia <SITA Goemz Last Filed: 07/24/24 22:03> ENT: Denies headache(s), Denies nasal congestion, Denies nasal discharge and Denies sore throat <SITA Gomez Last Filed: 07/24/24 22:03> Cardiovascular: Cardiovascular: Denies chest pain, Denies rapid heart rate, Denies leg edema, Denies lightheadedness and Denies dyspnea <SITA Gomez Last Filed: 07/24/24 22:03> Respiratory: Respiratory: Denies chest congestion, Denies cough, Denies dyspnea and Denies wheezing <Erum Soriano PA-C - Last Filed: 07/24/24 22:03> Gastrointestinal: Gastrointestinal: Denies abdominal pain, Denies diarrhea, Denies nausea and Denies vomiting <SITA Gomez Last Filed: 07/24/24 22:03> Genitourinary: Genitourinary: Reports dysuria and Reports urinary urgency <Erum Soriano PA-C - Last Filed: 07/24/24 22:03> Musculoskeletal: Musculoskeletal: Denies back pain <SITA Gomez Last Filed: 07/24/24 22:03> Integumentary/Breasts: Skin/Breast: Denies rash <SITA Gomez Last Filed: 07/24/24 22:03> Neurologic: Denies confusion and Denies headache(s) <Erum Soriano PA-C - Last Filed: 07/24/24 22:03> Psychiatric: Psychiatric: Denies confusion <Erum Soriano PA-C - Last Filed: 07/24/24 22:03> Endocrine: Endocrine: Denies fatigue <Erum Soriano PA-C - Last Filed: 07/24/24 22:03> Hematologic/Lymphatic: Hematologic/Lymphatic: Denies easy bleeding and Denies easy bruising <Erum Soriano PA-C - Last Filed: 07/24/24 22:03> Allergic/Immunologic: Allergic/Immunologic: Denies wheezing <SITA Gomez Last Filed: 07/24/24 22:03> [facility] Medical History: Medical History Right fibular fracture Obesity Osteoporosis Hypercapnia COPD (chronic obstructive pulmonary disease) Hypothyroidism Multinodular thyroid HLD (hyperlipidemia) T2DM (type 2 diabetes mellitus) Pneumonitis Chronic respiratory failure Pulmonary nodules Pneumonia Acute and chronic respiratory failure with hypoxia MORGAN on CPAP Morbid (severe) obesity due to excess calories Chronic restrictive lung disease Obesity due to excess calories DM2 (diabetes mellitus, type 2) HLD (hyperlipidemia) Diabetes Goiter Vitamin D deficiency Hypothyroidism Fibula fracture Hx of fracture of patella Back pain GERD (gastroesophageal reflux disease) Hepatitis History of posttraumatic stress disorder (PTSD) Depression Myocardial infarction AAA (abdominal aortic aneurysm) without rupture Morbid obesity Hernia Umbilical hernia PTSD (post-traumatic stress disorder) ADHD Schizo affective schizophrenia Arthritis Migraine Diabetes HTN (hypertension) Gallstone Aortic aneurysm Sleep apnea Asthma <Erum Soriano PA-C - Last Filed: 07/24/24 22:03> Functional capacity: bed bound <SITA Gomez Last Filed: 07/24/24 22:03> Family History: Family History Father Unknown family medical history Mother Unknown family medical history Sister Ovarian cancer Son No problems noted. Son Depression Son Asthma Bipolar 1 disorder ADHD Daughter No problems noted. Daughter Unknown family medical history Daughter Unknown family medical history Daughter No problems noted. <SITA Gomez Last Filed: 07/24/24 22:03> Surgical History: Surgical History Hx of knee surgery Hx of tubal ligation History of incision and drainage Tubal ligation status <SITA Gomez Last Filed: 07/24/24 22:03> Social History: Social History Household Members: Unknown / Unable to assess Housing: Unknown / Unable to assess Are you a primary career development director to a significant other at home: No Do you presently have visiting nurse or other home services: No Unable to assess alcohol history related to: Unable to respond Alcohol intake: never Patient Tobacco Use Status: Former Tobacco user Tobacco use type: Cigarette Cigarette Packs Per Day: 6 Years Smoked: 35 Smoked in Last 30 Days: No e-Cigarette/Vaping Use: Currently Using Use of substances other than those prescribed or required for medical reasons: No Substance Use Type: Marijuana Advance Directives: Yes Advance Directives on File: Yes Advance Directives Date on File: 09/13/21 Patient : No service: No Current occupational status: unemployed <SITA Gomez Last Filed: 07/24/24 22:03> Meds Allergies/Adverse reactions: Allergies Allergy/AdvReac Type Severity Reaction Status Date / Time metformin Allergy Intermediate Diarrhea Verified 07/24/24 15:59 tetracycline Allergy Intermediate hives Verified 07/24/24 15:59 Latex, Natural Rubber Allergy Rash Verified 07/24/24 15:59 haloperidol [From HALDOL] AdvReac Intermediate Irritable Verified 07/24/24 15:59 <Erum Soriano PA-C - Last Filed: 07/24/24 22:03> Active Medications: Current Medications Dextrose (Dextrose 50 % 25 Gm/50 Ml Syringe) 25 gm IVPUSH Q15M PRN; Protocol PRN Reason: per Hypoglycemia Standing Ord. Glucose (Glucose Gel 15 Gm Gel..Gram.) 15 gm PO Q15M PRN; Protocol PRN Reason: per Hypoglycemia Standing Ord. Albumin Human (Kedbumin 25 %) 100 mls @ 133.333 mls/hr IV Q1H SHARI Stop: 07/24/24 23:29 Insulin Glargine (Insulin Glargine,Hum.Rec.Anlog 100 Unit/Ml 10 Ml Vial) 45 unit SUBCUT BEDTIME SHARI Insulin Human Lispro (Insulin Lispro 100 Unit/Ml 3 Ml Vial) 0 unit SUBCUT QIDACHS SHARI; Protocol Meropenem (Meropenem 1 Gm Vial) 1 gm IVPUSH Q8H SHARI <Erum Soriano PA-C - Last Filed: 07/24/24 22:03> Home medications: Home Medications ?Medication ?Instructions ?Recorded ?Confirmed ?Last Taken ?Type amitriptyline 10 mg tablet 10 mg PO BEDTIME 01/10/20 12/22/23 12/21/23 History benztropine 1 mg tablet 1 mg PO BID@1200,2100 01/10/20 12/22/23 12/21/23 History lisinopril 10 mg tablet 10 mg PO BEDTIME 01/10/20 12/22/23 12/21/23 History montelukast 10 mg tablet 10 mg PO BEDTIME 01/10/20 12/22/23 12/21/23 History multivitamin 1 tab PO DAILY@1200 01/10/20 12/22/23 12/21/23 History atenolol 50 mg tablet 50 mg PO DAILY@1200 04/20/21 12/22/23 12/21/23 History docusate sodium 100 mg capsule 100 mg PO DAILY PRN Constipation 04/20/21 12/22/23 12/21/23 History folic acid 1 mg tablet 1 mg PO DAILY 04/20/21 12/22/23 12/21/23 History furosemide 40 mg tablet 40 mg PO DAILY 04/20/21 12/22/23 12/21/23 History lurasidone 60 mg tablet (Latuda) 60 mg PO DAILY@0800 04/20/21 12/22/23 12/21/23 History melatonin 5 mg tablet 10 mg PO BEDTIME PRN insomnia 04/20/21 12/22/23 12/21/23 History prazosin 5 mg capsule 5 mg PO BEDTIME 04/20/21 12/22/23 12/21/23 History alendronate 70 mg tablet 1 tab PO MO@0600 04/22/21 12/22/23 12/21/23 History diclofenac sodium 1 % topical gel 2 g topical BID Pain 04/22/21 12/22/23 12/21/23 History fluticasone propionate 50 1 spray intranasal DAILY PRN 04/22/21 12/22/23 12/21/23 History mcg/actuation nasal ALLERGIES spray,suspension hydroxyzine HCl 50 mg tablet 1 - 2 tab PO TID PRN Anxiety, 04/22/21 12/22/23 12/21/23 History Sleep, Agitation cholecalciferol (vitamin D3) 50 50 mcg PO DAILY 07/20/21 12/22/23 12/21/23 History mcg (2,000 unit) tablet acetaminophen 500 mg tablet 500 mg PO Q6H PRN Pain 09/08/21 12/22/23 12/21/23 History lidocaine 5 % topical patch 1 patch topical DAILY 09/08/21 12/22/23 12/21/23 History Oxygen Home Use 03/25/22 09/29/22 Unknown History nebulizers 03/25/22 09/29/22 Unknown History cetirizine 10 mg tablet 10 mg PO DAILY PRN allergies 09/08/22 12/22/23 12/21/23 History prazosin 1 mg capsule 1 mg PO BEDTIME 09/08/22 12/22/23 12/21/23 History econazole nitrate 1 % topical cream 1 appl topical BID 03/30/23 11/01/23 Unknown History ammonium lactate 12 % lotion 1 appl topical DAILY PRN Dry Skin 11/01/23 12/22/23 12/21/23 History lorazepam 1 mg tablet 1 mg PO DAILY PRN panic attack 11/01/23 12/22/23 12/21/23 History naproxen 500 mg tablet 500 mg PO BID 11/01/23 12/22/23 12/21/23 History nystatin 100,000 unit/gram topical 1 appl topical BID 11/01/23 12/22/23 12/21/23 History powder rimegepant 75 mg disintegrating 75 mg PO NEEDED migraine 11/01/23 12/22/23 12/21/23 History tablet (Nurtec ODT) topiramate 50 mg tablet 50 mg PO DAILY 11/01/23 11/01/23 Unknown History quetiapine 100 mg tablet 100 mg PO DAILY@1200 PRN Anxiety 12/22/23 12/22/23 12/21/23 History divalproex 250 mg tablet,extended 250 mg PO DAILY@1200 07/24/24 Unknown History release 24 hr divalproex 500 mg tablet,extended 1,000 mg PO BEDTIME 07/24/24 Unknown History release 24 hr divalproex 500 mg tablet,extended 500 mg PO DAILY@1200 07/24/24 Unknown History release 24 hr insulin lispro 100 unit/mL 14 - 24 unit subcut TIDWMEAL 07/24/24 Unknown History subcutaneous pen (Humalog KwikPen (U-100) Insulin) nicotine (polacrilex) 4 mg gum 4 mg PO Q2H PRN Nicotine Cravings 07/24/24 Unknown History quetiapine 200 mg tablet 200 mg PO BEDTIME 07/24/24 Unknown History quetiapine 400 mg tablet 400 mg PO BEDTIME 07/24/24 Unknown History scopolamine base 1 mg over 3 days 1 patch topical Q3D 07/24/24 Unknown History transdermal patch <Erum Soriano PA-C - Last Filed: 07/24/24 22:03> Physical Exam 2 Vital Signs and Narrative: Vital Signs: Last Vital Signs Temp 98.3 F 07/24/24 19:17 Pulse 79 07/24/24 19:17 Resp 20 07/24/24 19:17 BP 111/46 L 07/24/24 19:17 Pulse Ox 98 07/24/24 19:17 O2 Del Method Nasal Cannula 07/24/24 19:17 O2 Flow Rate 7 07/24/24 19:17 Oxygen Flow Rate 6 07/24/24 15:59 BMI result Body Mass Index 79.7 <Erum Soriano PA-C - Last Filed: 07/24/24 22:03> General: AOx3, no acute distress Resp: CTA bilaterally, limited exam, difficult due to body habitus CVS: S1, S2, RRR GI: +BS, NT, no distention Skin: Warm, dry Neuro: Cranial nerves II-XII grossly intact bilaterally. Motor grossly intact bilaterally Extremities: No pitting edema. Boot on RLE Psych: Appropriate affect <Erum Soriano PA-C - Last Filed: 07/24/24 22:03> Const: General: No confusion <Erum Soriano PA-C - Last Filed: 07/24/24 22:03> Orientation/consciousness: No confusion <Erum Soriano PA-C - Last Filed: 07/24/24 22:03> Eyes: Direct Ophthalmoscopy: No photophobia <SITA Gomez Last Filed: 07/24/24 22:03> Neuro: General: No confusion <Erum Soriano PA-C - Last Filed: 07/24/24 22:03> Results Labs CBC and Chem 7: 07/24/24 19:15 07/24/24 19:15 <Erum Soriano PA-C - Last Filed: 07/24/24 22:03> Labs: Laboratory Results - last 24 hr 07/24/24 07/24/24 07/24/24 17:20 19:15 21:01 MCV 81.8 MCH 27.0 MCHC 33.0 RDW 15.6 Plt Count 285 MPV 10.1 Immature Gran % (Auto) 0.9 H Neut % (Auto) 54.6 Lymph % (Auto) 33.1 [place] % (Auto) 8.1 Eos % (Auto) 2.7 Baso % (Auto) 0.6 Lymph # (Auto) 2.2 [place] # (Auto) 0.5 Eos # (Auto) 0.2 Baso # (Auto) 0.0 Abs Immat Gran (auto) 0.06 H Absolute Neuts (auto) 3.6 Absolute Nucleated RBC 0.000 Nucleated RBC % (auto) 0.0 VBG pH VBG pCO2 VBG pO2 VBG HCO3 VBG O2 Saturation VBG Base Excess Anion Gap 11 L Estim Creat Clear Calc 178.7 Estimated GFR > 60 Random Glucose 154 H Lactic Acid 2.7 H* Calcium 9.5 Total Bilirubin 0.2 Direct Bilirubin < 0.2 AST 21 ALT 15 Alkaline Phosphatase 59 B-Natriuretic Peptide 12 Total Protein 7.0 Albumin 4.1 Lipase 4 L Urine Color Yellow Urine Appearance Turbid Urine pH 6.5 Ur Specific [place] 1.010 Urine Protein 30 (1+) H Urine Glucose (UA) Negative Urine Ketones Negative Urine Blood Moderate (2+) H Urine Nitrite Positive H Ur Leukocyte Esterase Large (3+) H Urine RBC 0-2 Urine WBC >50 H Ur Squamous Epith Cells 0-2 Urine Bacteria 4+ Hyaline Casts 0-2 Influenza Type A (PCR) NEGATIVE Influenza Type B (PCR) NEGATIVE RSV RNA Qual (PCR) NEGATIVE SARS-CoV-2 RNA (RT-PCR) NEGATIVE 07/24/24 21:09 MCV MCH MCHC RDW Plt Count MPV Immature Gran % (Auto) Neut % (Auto) Lymph % (Auto) [place] % (Auto) Eos % (Auto) Baso % (Auto) Lymph # (Auto) [place] # (Auto) Eos # (Auto) Baso # (Auto) Abs Immat Gran (auto) Absolute Neuts (auto) Absolute Nucleated RBC Nucleated RBC % (auto) VBG pH 7.55 H VBG pCO2 51 VBG pO2 57 VBG HCO3 45 H VBG O2 Saturation 91.0 VBG Base Excess 20.4 Anion Gap Estim Creat Clear Calc Estimated GFR Random Glucose Lactic Acid Calcium Total Bilirubin Direct Bilirubin AST ALT Alkaline Phosphatase B-Natriuretic Peptide Total Protein Albumin Lipase Urine Color Urine Appearance Urine pH Ur Specific [place] Urine Protein Urine Glucose (UA) Urine Ketones Urine Blood Urine Nitrite Ur Leukocyte Esterase Urine RBC Urine WBC Ur Squamous Epith Cells Urine Bacteria Hyaline Casts Influenza Type A (PCR) Influenza Type B (PCR) RSV RNA Qual (PCR) SARS-CoV-2 RNA (RT-PCR) <Erum Soriano PA-C - Last Filed: 07/24/24 22:03> Assessment and Plan (1) UTI (urinary tract infection): Status: Acute <SITA Gomez Last Filed: 07/24/24 22:03> (2) Electrolyte abnormality: Status: Acute <Erum Soriano PA-C - Last Filed: 07/24/24 22:03> (3) Lactic acidosis: Status: Acute <Erum Soriano PA-C - Last Filed: 07/24/24 22:03> (4) Morbid obesity with BMI of 70 and over, adult: Status: Acute <Erum Soriano PA-C - Last Filed: 07/24/24 22:03> patient is a 54-year-old female with a past medical history significant for morbid obesity, bed-bound, HLD, chronic respiratory failure with hypoxia and hypercapnia, obesity hypoventilation and pulmonary edema on 7 L NC and CPAP at night, mood disorder, PTSD, history NSTEMI, HTN, insulin-dependent diabetes, GERD and hepatitis, who presented to the ED due to ongoing dysuria after to outpatient treatment for urinary tract infection. UTI - WBC 6.7, vital signs stable, lactic acid 2.7 (likely secondary to chronic respiratory failure ), no sepsis - UA positive, recent urine culture only sensitive to ertapenem - patient given ertapenem in ED, switched to meropenem - ID consult - follow CBC and BMP electrolyte abnormality, chronic at baseline -- likely secondary to chronic pulmonary issues ( chronic hypoxic /hypercapnic respiratory failure, obesity hypoventilation, pulmonary edema) - sodium 127, chloride 81, bicarb 39, chronic abnormalities - continue supplemental oxygen, CPAP at bedtime - 2 amps albumin - monitor BMP lactic acidosis -- likely secondary to chronic pulmonary issues ( chronic hypoxic /hypercapnic respiratory failure, obesity hypoventilation, pulmonary edema) - 2 amps albumin - avoid IVF hydration type 2 diabetes - sliding scale insulin - diabetic diet - reduced dose Lantus, 45 units nightly, home dose 64 units GERD - continue home meds morbid obesity - BMI 79.7 - patient on GLP 1 - weight loss encouraged med reconciliation not complete upon admission patient with multidrug resistance UTI requiring admission for at least 2 midnights stay for IV meropenem, ID consultation and monitoring. <Erum Soriano PA-C - Last Filed: 07/24/24 22:03> patient is a 54-year-old female with a past medical history significant for morbid obesity, bed-bound, HLD, chronic respiratory failure with hypoxia and hypercapnia, obesity hypoventilation and pulmonary edema on 7 L NC and CPAP at night, mood disorder, PTSD, history NSTEMI, HTN, insulin-dependent diabetes, GERD and hepatitis, who presented to the ED due to ongoing dysuria after to outpatient treatment for urinary tract infection. UTI - WBC 6.7, vital signs stable, lactic acid 2.7 (likely secondary to chronic respiratory failure ), no sepsis -failed outpatient po abx - UA positive, recent urine culture only sensitive to ertapenem - patient given ertapenem in ED, switched to meropenem - ID consult - follow CBC and BMP electrolyte abnormality, chronic at baseline -- likely secondary to chronic pulmonary issues ( chronic hypoxic /hypercapnic respiratory failure, obesity hypoventilation, pulmonary edema) - sodium 127, chloride 81, bicarb 39, chronic abnormalities - continue supplemental oxygen, CPAP at bedtime - 2 amps albumin - monitor BMP lactic acidosis -- likely secondary to chronic pulmonary issues ( chronic hypoxic /hypercapnic respiratory failure, obesity hypoventilation, pulmonary edema) - 2 amps albumin - avoid IVF hydration type 2 diabetes - sliding scale insulin - diabetic diet - reduced dose Lantus, 45 units nightly, home dose 64 units GERD - continue home meds morbid obesity - BMI 79.7 - patient on GLP 1 - weight loss encouraged med reconciliation not complete upon admission patient with multidrug resistance UTI requiring admission for at least 2 midnights stay for IV meropenem, ID consultation and monitoring. <Carolyn Perera MD - Last Filed: 07/24/24 22:15> Quality Stroke Does the patient have a stroke diagnosis?: No <Erum Soriano PA-C - Last Filed: 07/24/24 22:03> VTE Prior VTE?: No <Erum Soriano PA-C - Last Filed: 07/24/24 22:03> VTE Risk Level:: Medical - moderate - high <Erum Soriano PA-C - Last Filed: 07/24/24 22:03> VTE Device Contraindication: Treatment Not Indicated <Erum Soriano PA-C - Last Filed: 07/24/24 22:03> VTE Drug Contraindication: N/A - Med Ordered <Erum Soriano PA-C - Last Filed: 07/24/24 22:03>
--- NOTE | 2024-07-24 22:21 | PHA.MEDREC ---
Addendum entered by Dank Gavin [facility] 07/25/24 08:44: Called [facility]. Tirosint has not been picked up since 01/10/24 for 90 days. Pt recently had this filled but it was never picked up by the patient. This has been removed from the med list. Addendum entered by Reginaldo Owen 07/24/24 22:46: reviewed Original Note: Pharmacy Consult ? Medication Reconciliation Pharmacy has completed the medication reconciliation. Spoke with patient and she was able to confirm her medications. Patient confirmed her Alendronate and Monjaro once a week on Mondays and confirmed she took them both last Saturday 07/22. She states she uses 2 Lidocaine patches daily as needed on her shoulders and knees. She confirmed her Quetiapine 100mg tab once daily@1200 and states she takes Quetiapine 300mg at bedtime now instead of a 200mg and 400mg tab, stating that changed by her Dr in the last few months. She confirmed her Scopolamine patch once every 3 days and confirmed she has one on now that she was due to replace today. She states she is taking Tirosint (Levothyroxine) once in the AM and stated she gets it filled from [facility] pharmacy and thinks its a 100mcg tab; looking in claims the patient last got the Tirosint 150mcg tab filled from [facility] 01/09/2024, will have AM team call and verify that in the AM.
[2024-07-24 22:38] VITALS: BP 124/59; PULSE 82; RESP 18; TEMP 36.8; O2SAT 98
[2024-07-24 22:50] LABS: Glucose, Whole Blood 167 mg/dL (60-115)
[2024-07-24 23:07] LABS: Reflex Lactate? Lactic Acid Added
[2024-07-24] MEDS: Enoxaparin Sodium 40 MG/0.4 ML SYRINGE SUBCUT (23:14)
[2024-07-24] MEDS: Insulin Lispro 100 UNIT/ML 3 ML VIAL SUBCUT (23:15)
[2024-07-24] MEDS: Insulin Glargine,Hum.rec.anlog 100 UNIT/ML 10 ML VIAL 45 UNIT SUBCUT (23:16)
--- NOTE | 2024-07-24 23:17 | MHC.EDTECH ---
this tech assumed care of the pt @[id number]
[2024-07-24] MEDS: oxyCODONE HCl Immed Release 5 MG TABLET PO (23:38)
[2024-07-24] MEDS: Melatonin 3 MG TABLET 6 MG PO (23:39)
[2024-07-24] MEDS: Albumin Human 25 % 100 ML 133.33 ML IV (23:40)
[2024-07-25 00:11] LABS: ~Lactic Acid-LAB USE ONLY 2.8 mmol/L (0.5-2.0)
[2024-07-25 00:25] VITALS: PULSE 82; RESP 20; O2SAT 96
[2024-07-25] MEDS: Albumin Human 25 % 100 ML 133.33 ML IV (00:52)
[2024-07-25 01:42] LABS: Reflex Lactate? 2 Y
--- NOTE | 2024-07-25 02:16 | PC.NURSE ---
Assumed care of patient. Medicated for 9/10 back and right ankle pain with good effect Patient on 6L NC baseline at home, CPAP overnight. VSS Sleeping at present time Bed alarm on , call barcenas within reach.
[2024-07-25 03:13] LABS: ~Lactic Acid-LAB USE ONLY 2.4 mmol/L (0.5-2.0)
[2024-07-25 04:53] LABS: MANUAL DIFF FLAG NO
[2024-07-25 04:57] LABS: Basophils Percent Auto 0.7 % (0-2); Eosinophils Absolute Auto 0.2 X10*3/uL (0.0-0.4); Eosinophils Percent Auto 3.3 % (0-4); Hematocrit 28.7 % (37.0-47.0); Hemoglobin 9.4 g/dl (12.0-16.0); Imm Gran Abs Auto 0.05 X10*3/uL (0.00-0.03); Imm Gran Pct Auto 0.9 % (0.0-0.4); Lymphocytes Absolute Auto 2.1 X10*3/uL (1.2-4.9); Lymphocytes Percent Auto 36.2 % (20-40); Mean Corpuscular HGB Conc 32.8 g/dl (31.0-35.0); Mean Corpuscular Hemoglobin 27.2 pg (27.0-33.0); Mean Corpuscular Volume 83.2 fL (80.0-98.0); Mean Platelet Volume 11.1 fL (9.4-12.3); Monocytes Absolute Auto 0.5 X10*3/uL (0.1-1.2); Monocytes Percent Auto 8.6 % (2-11); Neutrophils Absolute Auto 2.9 x10*3/uL (2.0-8.3); Neutrophils Percent Auto 50.3 % (45-73); Platelet Count 265 X10*3/uL (160-400); Red Blood Count 3.45 X10*6/uL (4.20-5.50); Red Cell Distribution Width 15.8 % (11.0-16.0); White Blood Count 5.8 X10*3/uL (4.8-10.8)
[2024-07-25 05:11] LABS: Anion Gap 14 (12-20); Blood Urea Nitrogen 6 mg/dL (9-16); Calcium 9.6 mg/dL (8.4-10.2); Carbon Dioxide 37 mmol/L (22-29); Chloride 84 mmol/L (96-108); Creatinine Clr Calc Pharmacy 173.3; Estimated Glomerular Filt Rate > 60; Glucose Random 151 mg/dL (60-115); Potassium 4.1 mmol/L (3.3-5.1); Sodium 131 mmol/L (135-145)
[2024-07-25 06:00] VITALS: BMI 80.8
--- NOTE | 2024-07-25 07:53 | PC.NURSE ---
Care of Pt assumed at change of shift. Pt requires bed change as she is soiled with urine. Pt reports she dislikes the purwick as it gives her a rash. Pt to be transitioning to inpatient floor shortly.
[2024-07-25 07:54] LABS: Glucose, Whole Blood 159 mg/dL (60-115)
[2024-07-25] MEDS: Insulin Lispro 100 UNIT/ML 3 ML VIAL SUBCUT ×4 (08:02→20:57)
[2024-07-25] MEDS: 0.9 % Sodium Chloride Flush 3 ML SYRINGE IVFLUSH ×3 (08:02→20:44)
--- NOTE | 2024-07-25 08:06 | PC.NURSE ---
SPECIAL EDUCATION PARAEDUCATOR at bedside for eval.
--- NOTE | 2024-07-25 08:42 | HO.PM.IMPN ---
Subjective Subjective Date of Service: 07/25/24 Interval History: Follow up for treatment of UTI. Patient is being treated with IVP Meropenum. Review of Systems Denies dysuria, hematuria, fever, chills, dizziness malaise Physical Exam Vital Signs: Vital Signs: Last Vital Signs Temp 98.2 F 07/24/24 22:38 Pulse 82 07/24/24 22:38 Resp 20 07/25/24 00:25 BP 124/59 L 07/24/24 22:38 Pulse Ox 98 07/24/24 22:38 O2 Del Method Nasal Cannula 07/24/24 22:38 O2 Flow Rate 7 07/24/24 22:38 Oxygen Flow Rate 6 07/24/24 15:59 BMI result Body Mass Index 80.8 Const: Other: Gen: comfortable NAD, Morbidly Obese ?HEENT: PERRL, EOMI ?CV: RRR, no M/R/G ?Pulm: CTAB ?GI: +nl BS, soft, NDNT ?ext: no C/C/E Objective Data Active Medications Acetaminophen (Acetaminophen 325 Mg Tablet) 975 mg PO Q6H PRN PRN Reason: Pain, Mild 1-3,fever,headache Calcium Carbonate (Calcium Carbonate 750 Mg Tab.Chew) 750 mg PO Q4H PRN PRN Reason: Heartburn Dextrose (Dextrose 50 % 25 Gm/50 Ml Syringe) 25 gm IVPUSH Q15M PRN; Protocol PRN Reason: per Hypoglycemia Standing Ord. Enoxaparin Sodium (Enoxaparin Sodium 40 Mg/0.4 Ml Syringe) 40 mg SUBCUT Q12H [facility] Last Admin: 07/24/24 23:14 Dose: 40 mg Documented By: JOE Glucose (Glucose Gel 15 Gm Gel..Gram.) 15 gm PO Q15M PRN; Protocol PRN Reason: per Hypoglycemia Standing Ord. Insulin Glargine (Insulin Glargine,Hum.Rec.Anlog 100 Unit/Ml 10 Ml Vial) 45 unit SUBCUT BEDTIME [facility] Last Admin: 07/24/24 23:16 Dose: 45 unit Documented By: JOE Insulin Human Lispro (Insulin Lispro 100 Unit/Ml 3 Ml Vial) 0 unit SUBCUT QIDACHS [facility]; Protocol Last Admin: 07/25/24 08:02 Dose: 2 unit Documented By: MANDO Magnesium Hydroxide (Milk Of Magnesia 30 Ml Oral.Susp) 30 ml PO DAILY PRN PRN Reason: Constipation Melatonin (Melatonin 3 Mg Tablet) 6 mg PO BEDTIME PRN PRN Reason: Insomnia Last Admin: 07/24/24 23:39 Dose: 6 mg Documented By: JOE Meropenem (Meropenem 1 Gm Vial) 1 gm IVPUSH Q8H SHARI Morphine Sulfate (Morphine Sulfate 4 Mg/Ml Cartridge) 2 mg IVPUSH Q4H PRN; Protocol PRN Reason: Pain, Severe (Pain Scale 7-10) Ondansetron HCl (Ondansetron Hcl 4 Mg/2 Ml Vial) 4 mg IVPUSH Q8H PRN PRN Reason: Nausea and Vomiting Oxycodone HCl (Oxycodone Hcl Immed Release 5 Mg Tablet) 5 mg PO Q6H PRN PRN Reason: Pain, Moderate(Pain Scale 4-6) Last Admin: 07/24/24 23:38 Dose: 5 mg Documented By: JOE Sodium Chloride (0.9 % Sodium Chloride Flush 3 Ml Syringe) [facility] Last Admin: 07/25/24 08:02 Dose: 3 ml Documented By: MANDO Labs 07/25/24 04:13 07/25/24 04:13 Labs: Laboratory Results - last 24 hr 07/24/24 07/24/24 07/24/24 17:20 19:15 21:01 MCV 81.8 MCH 27.0 MCHC 33.0 RDW 15.6 Plt Count 285 MPV 10.1 Immature Gran % (Auto) 0.9 H Neut % (Auto) 54.6 Lymph % (Auto) 33.1 [place] % (Auto) 8.1 Eos % (Auto) 2.7 Baso % (Auto) 0.6 Lymph # (Auto) 2.2 [place] # (Auto) 0.5 Eos # (Auto) 0.2 Baso # (Auto) 0.0 Abs Immat Gran (auto) 0.06 H Absolute Neuts (auto) 3.6 Absolute Nucleated RBC 0.000 Nucleated RBC % (auto) 0.0 VBG pH VBG pCO2 VBG pO2 VBG HCO3 VBG O2 Saturation VBG Base Excess Anion Gap 11 L Estim Creat Clear Calc 178.7 Estimated GFR > 60 POC Glucose Random Glucose 154 H Lactic Acid 2.7 H* Lactic Acid F/U @ 2Hr Lactic Acid F/U @ 4Hr Calcium 9.5 Total Bilirubin 0.2 Direct Bilirubin < 0.2 AST 21 ALT 15 Alkaline Phosphatase 59 B-Natriuretic Peptide 12 Total Protein 7.0 Albumin 4.1 Lipase 4 L Urine Color Yellow Urine Appearance Turbid Urine pH 6.5 Ur Specific [place] 1.010 Urine Protein 30 (1+) H Urine Glucose (UA) Negative Urine Ketones Negative Urine Blood Moderate (2+) H Urine Nitrite Positive H Ur Leukocyte Esterase Large (3+) H Urine RBC 0-2 Urine WBC >50 H Ur Squamous Epith Cells 0-2 Urine Bacteria 4+ Hyaline Casts 0-2 Influenza Type A (PCR) NEGATIVE Influenza Type B (PCR) NEGATIVE RSV RNA Qual (PCR) NEGATIVE SARS-CoV-2 RNA (RT-PCR) NEGATIVE 07/24/24 07/24/24 07/24/24 21:09 22:32 23:39 MCV MCH MCHC RDW Plt Count MPV Immature Gran % (Auto) Neut % (Auto) Lymph % (Auto) [place] % (Auto) Eos % (Auto) Baso % (Auto) Lymph # (Auto) [place] # (Auto) Eos # (Auto) Baso # (Auto) Abs Immat Gran (auto) Absolute Neuts (auto) Absolute Nucleated RBC Nucleated RBC % (auto) VBG pH 7.55 H VBG pCO2 51 VBG pO2 57 VBG HCO3 45 H VBG O2 Saturation 91.0 VBG Base Excess 20.4 Anion Gap Estim Creat Clear Calc Estimated GFR POC Glucose 167 H Random Glucose Lactic Acid Lactic Acid F/U @ 2Hr 2.8 H* Lactic Acid F/U @ 4Hr Calcium Total Bilirubin Direct Bilirubin AST ALT Alkaline Phosphatase B-Natriuretic Peptide Total Protein Albumin Lipase Urine Color Urine Appearance Urine pH Ur Specific [place] Urine Protein Urine Glucose (UA) Urine Ketones Urine Blood Urine Nitrite Ur Leukocyte Esterase Urine RBC Urine WBC Ur Squamous Epith Cells Urine Bacteria Hyaline Casts Influenza Type A (PCR) Influenza Type B (PCR) RSV RNA Qual (PCR) SARS-CoV-2 RNA (RT-PCR) 07/25/24 07/25/24 07/25/24 02:41 04:13 07:32 MCV 83.2 MCH 27.2 MCHC 32.8 RDW 15.8 Plt Count 265 MPV 11.1 Immature Gran % (Auto) 0.9 H Neut % (Auto) 50.3 Lymph % (Auto) 36.2 [place] % (Auto) 8.6 Eos % (Auto) 3.3 Baso % (Auto) 0.7 Lymph # (Auto) 2.1 [place] # (Auto) 0.5 Eos # (Auto) 0.2 Baso # (Auto) 0.0 Abs Immat Gran (auto) 0.05 H Absolute Neuts (auto) 2.9 Absolute Nucleated RBC 0.000 Nucleated RBC % (auto) 0.0 VBG pH VBG pCO2 VBG pO2 VBG HCO3 VBG O2 Saturation VBG Base Excess Anion Gap 14 Estim Creat Clear Calc 173.3 Estimated GFR > 60 POC Glucose 159 H Random Glucose 151 H Lactic Acid Lactic Acid F/U @ 2Hr Lactic Acid F/U @ 4Hr 2.4 H* Calcium 9.6 Total Bilirubin Direct Bilirubin AST ALT Alkaline Phosphatase B-Natriuretic Peptide Total Protein Albumin Lipase Urine Color Urine Appearance Urine pH Ur Specific [place] Urine Protein Urine Glucose (UA) Urine Ketones Urine Blood Urine Nitrite Ur Leukocyte Esterase Urine RBC Urine WBC Ur Squamous Epith Cells Urine Bacteria Hyaline Casts Influenza Type A (PCR) Influenza Type B (PCR) RSV RNA Qual (PCR) SARS-CoV-2 RNA (RT-PCR) Assessment and Plan (1) UTI (urinary tract infection): Status: Acute Plan patient is a 54-year-old female with a past medical history significant for morbid obesity, HLD, chronic respiratory failure with hypoxia and hypercapnia, obesity hypoventilation and pulmonary edema on 7 L NC and CPAP at night, mood disorder, PTSD, history NSTEMI, HTN, insulin-dependent diabetes, GERD and hepatitis, who presented to the ED due to ongoing dysuria after outpatient treatment for urinary tract infection with Macrobid. UTI - WBC 5.8, vital signs stable, lactic acid 2.4 - failed outpatient po Macrolid abx course - UA positive, recent urine culture on 07/15/24 only sensitive to ertapenem. Repeat urine C&S pending. - patient given ertapenem in ED, switched to meropenem - ID consult - follow CBC and BMP. WBC trending down electrolyte abnormality, chronic at baseline -- - sodium 131, chloride 84, bicarb 37, chronic abnormalities. Improving. - continue supplemental oxygen, CPAP at bedtime - 2 bags of albumin. BP improved - Continue to monitor BMP lactic acidosis - Likely do to liver disease type 2 diabetes - sliding scale insulin - diabetic diet - reduced dose Lantus, 45 units nightly, home dose 64 units Psych - Continue home medications morbid obesity - BMI 79.7 - patient on GLP 1 Mounjaro at home. - weight loss encouraged Code: Full VTE: prophylaxis Lovenox patient with multidrug resistance UTI requiring admission for at least 2 midnights stay for IV meropenem, ID consultation and monitoring. Quality Stroke Does the patient have a stroke diagnosis?: No VTE Prior VTE?: No VTE Risk Level:: Medical - moderate - high VTE Device Contraindication: Treatment Not Indicated VTE Drug Contraindication: N/A - Med Ordered
[2024-07-25 10:32] VITALS: BP 111/53; PULSE 84; RESP 18; TEMP 36.8; O2SAT 98
[2024-07-25] MEDS: Enoxaparin Sodium 40 MG/0.4 ML SYRINGE SUBCUT ×2 (10:48→20:40)
[2024-07-25] MEDS: Atorvastatin Calcium 40 MG TABLET PO (10:49)
[2024-07-25] MEDS: Folic Acid 1 MG TABLET PO (10:49)
[2024-07-25] MEDS: Cholecalciferol (Vitamin D3) 25 MCG TABLET 50 MCG PO (10:49)
[2024-07-25] MEDS: Lidocaine 4 % Patch ADH..PATCH 2 PATCH TRANSDERMA (10:49)
[2024-07-25] MEDS: Lurasidone HCl 20 MG TABLET 60 MG PO (10:49)
[2024-07-25] MEDS: Scopolamine 1.5 MG PATCH.TD.3 TRANSDERMA (10:50)
[2024-07-25] MEDS: oxyCODONE HCl Immed Release 5 MG TABLET PO ×2 (10:50→16:49)
[2024-07-25 10:59] VITALS: BMI 80.8
[2024-07-25 11:36] LABS: Glucose, Whole Blood 161 mg/dL (60-115)
[2024-07-25] MEDS: Divalproex Sodium ER 500 MG TAB.ER.24H PO (11:59)
[2024-07-25] MEDS: Divalproex Sodium ER 250 MG TAB.ER.24H PO (11:59)
[2024-07-25] MEDS: atenoloL 50 MG TABLET PO (11:59)
[2024-07-25] MEDS: Benztropine Mesylate 1 MG TABLET PO ×2 (12:00→20:43)
[2024-07-25] MEDS: Multivitamin TABLET 1 TAB PO (12:00)
--- NOTE | 2024-07-25 15:21 | MHC.CM.PN ---
Addendum entered by Oralia Bautista RN 07/26/24 08:59: Patient active w/ [facility] Original Note: PT REPORTS SHE LIVES ALONE BUT HER S/O IS THERE MOST OF THE TIME SHE HAS DAILY [employer] WELL DAILY [facility] FROM [facility] SHE REPORTS THE VNA MANAGES MEDS AND V/S DAILY PT HAS A HOSPITAL BED, WHEEL CHAIR (ELECTRIC), WALKER, AND CPAP FOR DME PCP: SOPHIE SARKAR HCP ON FILE DCP: [facility]
[2024-07-25 16:00] VITALS: BP 115/58; PULSE 80; RESP 18; TEMP 36.6; O2SAT 96
[2024-07-25 16:40] LABS: Glucose, Whole Blood 176 mg/dL (60-115)
[2024-07-25] MEDS: Nicotine Polacrilex 2 MG GUM 4 MG BUCCAL ×2 (16:48→20:58)
[2024-07-25 20:00] VITALS: BP 125/60; PULSE 80; RESP 18; TEMP 36.6; O2SAT 96
[2024-07-25] MEDS: Amitriptyline HCl 10 MG TABLET PO (20:41)
[2024-07-25] MEDS: Meropenem 1 GM VIAL IVPUSH (20:41)
[2024-07-25 20:42] VITALS: BP 122/64
[2024-07-25] MEDS: Prazosin HCL 1 MG CAPSULE PO (20:42)
[2024-07-25] MEDS: Prazosin HCL 5 MG CAPSULE PO (20:42)
[2024-07-25] MEDS: lisinopriL 10 MG TABLET PO (20:42)
[2024-07-25] MEDS: Montelukast Sodium 10 MG TABLET PO (20:43)
[2024-07-25] MEDS: hydrOXYzine HCL 50 MG TABLET PO (20:43)
[2024-07-25] MEDS: QUEtiapine Fumarate 300 MG TABLET PO (20:43)
[2024-07-25] MEDS: Divalproex Sodium ER 500 MG TAB.ER.24H 1000 MG PO (20:44)
[2024-07-25 20:48] LABS: Glucose, Whole Blood 171 mg/dL (60-115)
[2024-07-25] MEDS: Morphine Sulfate 4 MG/ML CARTRIDGE 2 MG IVPUSH (20:53)
[2024-07-25] MEDS: Insulin Glargine,Hum.rec.anlog 100 UNIT/ML 10 ML VIAL 45 UNIT SUBCUT (20:58)
[2024-07-25] MEDS: Nystatin Powder 15 GM BOTTLE 1 APPL TOPICAL (20:58)
[2024-07-26] MEDS: Morphine Sulfate 4 MG/ML CARTRIDGE 2 MG IVPUSH (01:25)
[2024-07-26 04:00] VITALS: BP 99/62; PULSE 79; RESP 14; TEMP 36.6; O2SAT 94
[2024-07-26] MEDS: Meropenem 1 GM VIAL IVPUSH ×3 (04:38→21:18)
[2024-07-26 06:01] LABS: MANUAL DIFF FLAG NO
[2024-07-26 06:03] LABS: Basophils Absolute Auto 0.1 X10*3/uL (0.0-0.2); Basophils Percent Auto 0.9 % (0-2); Eosinophils Absolute Auto 0.3 X10*3/uL (0.0-0.4); Eosinophils Percent Auto 4.3 % (0-4); Hematocrit 31.2 % (37.0-47.0); Hemoglobin 9.7 g/dl (12.0-16.0); Imm Gran Abs Auto 0.05 X10*3/uL (0.00-0.03); Imm Gran Pct Auto 0.9 % (0.0-0.4); Lymphocytes Absolute Auto 2.5 X10*3/uL (1.2-4.9); Lymphocytes Percent Auto 42.9 % (20-40); Mean Corpuscular HGB Conc 31.1 g/dl (31.0-35.0); Mean Corpuscular Hemoglobin 26.4 pg (27.0-33.0); Mean Platelet Volume 10.6 fL (9.4-12.3); Monocytes Absolute Auto 0.6 X10*3/uL (0.1-1.2); Monocytes Percent Auto 9.8 % (2-11); NRBC Pct Auto 0.3 /100WBC (0.0-0.2); Neutrophils Absolute Auto 2.4 x10*3/uL (2.0-8.3); Neutrophils Percent Auto 41.2 % (45-73); Platelet Count 291 X10*3/uL (160-400); Red Blood Count 3.67 X10*6/uL (4.20-5.50); Red Cell Distribution Width 16.4 % (11.0-16.0); White Blood Count 5.8 X10*3/uL (4.8-10.8)
[2024-07-26 06:21] LABS: Anion Gap 12 (12-20); Blood Urea Nitrogen 8 mg/dL (9-16); Calcium 9.6 mg/dL (8.4-10.2); Carbon Dioxide 39 mmol/L (22-29); Chloride 85 mmol/L (96-108); Creatinine Clr Calc Pharmacy 172.4; Estimated Glomerular Filt Rate > 60; Glucose Random 148 mg/dL (60-115); Potassium 4.2 mmol/L (3.3-5.1); Sodium 132 mmol/L (135-145)
[2024-07-26] MEDS: Acetaminophen 325 MG TABLET 975 MG PO (06:41)
[2024-07-26 07:38] LABS: Glucose, Whole Blood 196 mg/dL (60-115)
[2024-07-26] MEDS: 0.9 % Sodium Chloride Flush 3 ML SYRINGE IVFLUSH ×3 (07:44→21:11)
[2024-07-26] MEDS: oxyCODONE HCl Immed Release 5 MG TABLET PO ×2 (07:44→13:42)
[2024-07-26 07:50] VITALS: BP 106/56; PULSE 75; RESP 18; TEMP 36.8; O2SAT 94
[2024-07-26] MEDS: Enoxaparin Sodium 40 MG/0.4 ML SYRINGE SUBCUT ×2 (08:21→21:08)
[2024-07-26] MEDS: Furosemide 40 MG TABLET PO (08:21)
[2024-07-26] MEDS: Atorvastatin Calcium 40 MG TABLET PO (08:21)
[2024-07-26] MEDS: Insulin Lispro 100 UNIT/ML 3 ML VIAL SUBCUT ×4 (08:21→21:06)
[2024-07-26] MEDS: Nystatin Powder 15 GM BOTTLE 1 APPL TOPICAL (08:22)
[2024-07-26] MEDS: Lurasidone HCl 20 MG TABLET 60 MG PO (08:22)
[2024-07-26] MEDS: Folic Acid 1 MG TABLET PO (08:22)
[2024-07-26] MEDS: Lidocaine 4 % Patch ADH..PATCH 2 PATCH TRANSDERMA (08:22)
[2024-07-26] MEDS: Cholecalciferol (Vitamin D3) 25 MCG TABLET 50 MCG PO (08:22)
--- NOTE | 2024-07-26 10:57 | P.PNIM_ITS ---
Subjective Subjective Date of Service: 07/26/24 Interval History: Follow up for treatment of UTI. Patient is being treated with IVP Meropenum. No new issues, cultures pending Review of Systems Denies dysuria, hematuria, fever, chills, dizziness malaise Physical Exam 2 Vital Signs: Vital Signs: Last Vital Signs Temp 98.3 F 07/26/24 07:50 Pulse 75 07/26/24 07:50 Resp 18 07/26/24 07:50 BP 106/56 L 07/26/24 07:50 Pulse Ox 94 07/26/24 07:50 O2 Del Method Nasal Cannula 07/26/24 07:50 O2 Flow Rate 6 07/26/24 07:50 Oxygen Flow Rate 6 07/24/24 15:59 BMI result Body Mass Index 80.8 Const: Other: Gen: comfortable NAD, Morbidly Obese ?HEENT: PERRL, EOMI ?CV: RRR, no M/R/G ?Pulm: CTAB ?GI: +nl BS, soft, NDNT ?ext: no C/C/E Objective Data Active Medications Acetaminophen (Acetaminophen 325 Mg Tablet) 975 mg PO Q6H PRN PRN Reason: Pain, Mild 1-3,fever,headache Last Admin: 07/26/24 06:41 Dose: 975 mg Documented By: ANMOL Albuterol Sulfate (Albuterol Sulfate (0.083%) 2.5 Mg/3 Ml Vial.Neb) 2.5 mg INHALE Q6H PRN PRN Reason: shortness of breath or wheezing Albuterol Sulfate (Albuterol Sulfate 90 Mcg 8 Gm Inhaler) 2 puff INHALE Q4H PRN PRN Reason: Shortness Of Breath Or Wheezing Amitriptyline HCl (Amitriptyline Hcl 10 Mg Tablet) 10 mg PO BEDTIME [facility] Last Admin: 07/25/24 20:41 Dose: 10 mg Documented By: ANMOL Atenolol (Atenolol 50 Mg Tablet) 50 mg PO DAILY@1200 [facility]; Protocol Last Admin: 07/25/24 11:59 Dose: 50 mg Documented By: ROCHELLE Atorvastatin Calcium (Atorvastatin Calcium 40 Mg Tablet) 40 mg PO DAILY [facility] Last Admin: 07/26/24 08:21 Dose: 40 mg Documented By: CLEOPATRA Benztropine Mesylate (Benztropine Mesylate 1 Mg Tablet) 1 mg PO BID@1200,2100 [facility] Last Admin: 07/25/24 20:43 Dose: 1 mg Documented By: ANMOL Calcium Carbonate (Calcium Carbonate 750 Mg Tab.Chew) 750 mg PO Q4H PRN PRN Reason: Heartburn Clotrimazole (Clotrimazole 1 % Cream 15 Gm Tube) 1 appl TOPICAL BID PRN PRN Reason: Inflammation Dextrose (Dextrose 50 % 25 Gm/50 Ml Syringe) 25 gm IVPUSH Q15M PRN; Protocol PRN Reason: per Hypoglycemia Standing Ord. Divalproex Sodium (Divalproex Sodium Er 250 Mg Tab.Er.24h) 250 mg PO DAILY@1200 [facility] Last Admin: 07/25/24 11:59 Dose: 250 mg Documented By: ROCHELLE Divalproex Sodium (Divalproex Sodium Er 500 Mg Tab.Er.24h) 500 mg PO DAILY@1200 [facility] Last Admin: 07/25/24 11:59 Dose: 500 mg Documented By: ROCHELLE Divalproex Sodium (Divalproex Sodium Er 500 Mg Tab.Er.24h) 1,000 mg PO BEDTIME [facility] Last Admin: 07/25/24 20:44 Dose: 1,000 mg Documented By: ANMOL Docusate Sodium (Docusate Sodium 100 Mg Capsule) 100 mg PO DAILY PRN PRN Reason: Constipation Enoxaparin Sodium (Enoxaparin Sodium 40 Mg/0.4 Ml Syringe) 40 mg SUBCUT Q12H [facility] Last Admin: 07/26/24 08:21 Dose: 40 mg Documented By: CLEOPATRA Fluticasone Propionate (Fluticasone Propionate Nasal 16 Gm [place]) 1 spray NOSTRIL-B DAILY PRN PRN Reason: ALLERGIES Folic Acid (Folic Acid 1 Mg Tablet) 1 mg PO DAILY [facility] Last Admin: 07/26/24 08:22 Dose: 1 mg Documented By: CLEOPATRA Furosemide (Furosemide 40 Mg Tablet) 40 mg PO DAILY [facility]; Protocol Last Admin: 07/26/24 08:21 Dose: 40 mg Documented By: CLEOPATRA Glucose (Glucose Gel 15 Gm Gel..Gram.) 15 gm PO Q15M PRN; Protocol PRN Reason: per Hypoglycemia Standing Ord. Hydroxyzine HCl (Hydroxyzine Hcl 50 Mg Tablet) 50 mg PO TID PRN PRN Reason: Anxiety, Sleep, Agitation Last Admin: 07/25/24 20:43 Dose: 50 mg Documented By: ANMOL Insulin Glargine (Insulin Glargine,Hum.Rec.Anlog 100 Unit/Ml 10 Ml Vial) 45 unit SUBCUT BEDTIME [facility] Last Admin: 07/25/24 20:58 Dose: 45 unit Documented By: ANMOL Insulin Human Lispro (Insulin Lispro 100 Unit/Ml 3 Ml Vial) 0 unit SUBCUT QIDACHS [facility]; Protocol Last Admin: 07/26/24 08:21 Dose: 2 unit Documented By: CLEOPATRA Lactic Acid (Ammonium Lactate 12 % Lotion 226 Gm Bottle) 1 appl TOPICAL DAILY PRN; Protocol PRN Reason: Dry Skin Lidocaine (Lidocaine 4 % Patch Adh..Patch) 2 patch TRANSDERMA DAILY [facility] Last Admin: 07/26/24 08:22 Dose: 2 patch Documented By: CLEOPATRA Lisinopril (Lisinopril 10 Mg Tablet) 10 mg PO BEDTIME [facility]; Protocol Last Admin: 07/25/24 20:42 Dose: 10 mg Documented By: ANMOL Loratadine (Loratadine 10 Mg Tablet) 10 mg PO DAILY PRN PRN Reason: allergies Lorazepam (Lorazepam 1 Mg Tablet) 1 mg PO DAILY PRN PRN Reason: panic attack Lurasidone HCl (Lurasidone Hcl 20 Mg Tablet) 60 mg PO DAILY@0800 [facility] Last Admin: 07/26/24 08:22 Dose: 60 mg Documented By: CLEOPATRA Magnesium Hydroxide (Milk Of Magnesia 30 Ml Oral.Susp) 30 ml PO DAILY PRN PRN Reason: Constipation Melatonin (Melatonin 3 Mg Tablet) 9 mg PO BEDTIME PRN PRN Reason: insomnia Meropenem (Meropenem 1 Gm Vial) 1 gm IVPUSH Q8H [facility] Last Admin: 07/26/24 04:38 Dose: 1 gm Documented By: ANMOL Montelukast Sodium (Montelukast Sodium 10 Mg Tablet) 10 mg PO BEDTIME [facility] Last Admin: 07/25/24 20:43 Dose: 10 mg Documented By: ANMOL Morphine Sulfate (Morphine Sulfate 4 Mg/Ml Cartridge) 2 mg IVPUSH Q4H PRN; Protocol PRN Reason: Pain, Severe (Pain Scale 7-10) Last Admin: 07/26/24 01:25 Dose: 2 mg Documented By: ANMOL Multivitamins/Vitamin C (Multivitamin Tablet) 1 tab PO DAILY@1200 [facility] Last Admin: 07/25/24 12:00 Dose: 1 tab Documented By: ROCHELLE Nicotine Polacrilex (Nicotine Polacrilex 2 Mg Gum) 4 mg BUCCAL Q2H PRN PRN Reason: Nicotine Cravings Last Admin: 07/25/24 20:58 Dose: 4 mg Documented By: ANMOL Non-Formulary Medication (Rmicynkfyi-Umjyeumj-Dwwiuhjhsw [Breztri Aerosphere]) 2 inhalation INHALE BID SHARI Non-Formulary Medication (Rimegepant [Nurtec Odt]) 75 mg PO DAILY PRN PRN Reason: migraine Nystatin (Nystatin Powder 15 Gm Bottle) 1 appl TOPICAL BID [facility]; Protocol Last Admin: 07/26/24 08:22 Dose: 1 appl Documented By: CLEOPATRA Ondansetron HCl (Ondansetron Hcl 4 Mg/2 Ml Vial) 4 mg IVPUSH Q8H PRN PRN Reason: Nausea and Vomiting Oxycodone HCl (Oxycodone Hcl Immed Release 5 Mg Tablet) 5 mg PO Q6H PRN PRN Reason: Pain, Moderate(Pain Scale 4-6) Last Admin: 07/26/24 07:44 Dose: 5 mg Documented By: CLEOPATRA Prazosin HCl (Prazosin Hcl 1 Mg Capsule) 1 mg PO BEDTIME [facility]; Protocol Last Admin: 07/25/24 20:42 Dose: 1 mg Documented By: ANMOL Prazosin HCl (Prazosin Hcl 5 Mg Capsule) 5 mg PO BEDTIME [facility]; Protocol Last Admin: 07/25/24 20:42 Dose: 5 mg Documented By: ANMOL Quetiapine Fumarate (Quetiapine Fumarate 100 Mg Tablet) 100 mg PO DAILY@1200 PRN PRN Reason: Anxiety Quetiapine Fumarate (Quetiapine Fumarate 300 Mg Tablet) 300 mg PO BEDTIME [facility] Last Admin: 07/25/24 20:43 Dose: 300 mg Documented By: ANMOL Scopolamine (Scopolamine 1.5 Mg Patch.Td.3) 1.5 mg TRANSDERMA Q3D [facility] Last Admin: 07/25/24 10:50 Dose: 1.5 mg Documented By: AKLIA Sodium Chloride (0.9 % Sodium Chloride Flush 3 Ml Syringe) 3 ml IVFLUSH QSHIFT [facility] Last Admin: 07/26/24 07:44 Dose: 3 ml Documented By: CLEOPATRA Vitamin D (Cholecalciferol (Vitamin D3) 25 Mcg Tablet) 50 mcg PO DAILY [facility] Last Admin: 07/26/24 08:22 Dose: 50 mcg Documented By: CLEOPATRA Labs 07/26/24 05:10 07/26/24 05:10 Labs: Laboratory Results - last 24 hr 07/25/24 07/25/24 07/25/24 11:20 16:37 20:45 MCV MCH MCHC RDW Plt Count MPV Immature Gran % (Auto) Neut % (Auto) Lymph % (Auto) [place] % (Auto) Eos % (Auto) Baso % (Auto) Lymph # (Auto) [place] # (Auto) Eos # (Auto) Baso # (Auto) Abs Immat Gran (auto) Absolute Neuts (auto) Absolute Nucleated RBC Nucleated RBC % (auto) Anion Gap Estim Creat Clear Calc Estimated GFR POC Glucose 161 H 176 H 171 H Random Glucose Calcium 07/26/24 07/26/24 05:10 07:32 MCV 85.0 MCH 26.4 L MCHC 31.1 RDW 16.4 H Plt Count 291 MPV 10.6 Immature Gran % (Auto) 0.9 H Neut % (Auto) 41.2 L Lymph % (Auto) 42.9 H [place] % (Auto) 9.8 Eos % (Auto) 4.3 H Baso % (Auto) 0.9 Lymph # (Auto) 2.5 [place] # (Auto) 0.6 Eos # (Auto) 0.3 Baso # (Auto) 0.1 Abs Immat Gran (auto) 0.05 H Absolute Neuts (auto) 2.4 Absolute Nucleated RBC 0.020 H Nucleated RBC % (auto) 0.3 H Anion Gap 12 Estim Creat Clear Calc 172.4 Estimated GFR > 60 POC Glucose 196 H Random Glucose 148 H Calcium 9.6 Microbiology Microbiology Results: Microbiology 07/24/24 21:01 Blood Culture - Preliminary Blood - Venous No growth after 24 hours. 07/24/24 19:15 Blood Culture - Preliminary Blood - Venous No growth after 24 hours. 07/24/24 Unknown Urine Culture - Preliminary Urine clean catch - Clean Catch Midstream Culture in progress. Assessment and Plan (1) UTI (urinary tract infection): Status: Acute Plan patient is a 54-year-old female with a past medical history significant for morbid obesity, HLD, chronic respiratory failure with hypoxia and hypercapnia, obesity hypoventilation and pulmonary edema on 7 L NC and CPAP at night, mood disorder, PTSD, history NSTEMI, HTN, insulin-dependent diabetes, GERD and hepatitis, who presented to the ED due to ongoing dysuria after outpatient treatment for urinary tract infection with Macrobid. UTI, history of resitant e coli, awaiting on culture, continue meropenem, consider fosfomycin at dc electrolyte abnormality, chronic at baseline --stable. lactic acidosis Likely do to liver disease type 2 diabetes continue lantus, ssi and diabetic diet Psych Continue home medications morbid obesity - BMI 79.7 - patient on GLP 1 Mounjaro at home. - weight loss encouraged Code: Full VTE: prophylaxis Lovenox patient with multidrug resistance UTI requiring admission for at least 2 midnights stay for IV meropenem, ID consultation and monitoring. Quality Stroke Does the patient have a stroke diagnosis?: No VTE Prior VTE?: No VTE Risk Level:: Medical - moderate - high VTE Device Contraindication: Treatment Not Indicated VTE Drug Contraindication: N/A - Med Ordered
[2024-07-26 11:51] LABS: Glucose, Whole Blood 197 mg/dL (60-115)
--- NOTE | 2024-07-26 12:02 | MHC.CM.PN ---
Per MD rounds patient not medically cleared for dc. CM will continue to follow.
[2024-07-26] MEDS: atenoloL 50 MG TABLET PO (12:18)
[2024-07-26] MEDS: Nicotine Polacrilex 2 MG GUM 4 MG BUCCAL ×2 (12:18→15:31)
[2024-07-26] MEDS: Divalproex Sodium ER 500 MG TAB.ER.24H PO (12:18)
[2024-07-26] MEDS: Divalproex Sodium ER 250 MG TAB.ER.24H PO (12:19)
[2024-07-26] MEDS: Multivitamin TABLET 1 TAB PO (12:19)
[2024-07-26] MEDS: Benztropine Mesylate 1 MG TABLET PO ×2 (12:19→21:02)
[2024-07-26 15:25] LABS: Free T4 (Free Thyroxine) < 0.42 ng/dL (0.71-1.85); Thyroid Stimulating Hormone 32.29 uIU/mL (0.32-4.0)
[2024-07-26 15:33] VITALS: BP 113/65; PULSE 92; RESP 17; TEMP 36.2; O2SAT 94
[2024-07-26 16:50] LABS: Glucose, Whole Blood 189 mg/dL (60-115)
[2024-07-26] MEDS: Levothyroxine Sodium 150 MCG TABLET PO (17:35)
[2024-07-26 19:34] VITALS: BP 113/56; PULSE 83; RESP 18; TEMP 36.7; O2SAT 93
[2024-07-26 20:23] LABS: Glucose, Whole Blood 184 mg/dL (60-115)
[2024-07-26] MEDS: Divalproex Sodium ER 500 MG TAB.ER.24H 1000 MG PO (21:01)
[2024-07-26] MEDS: Amitriptyline HCl 10 MG TABLET PO (21:01)
[2024-07-26] MEDS: QUEtiapine Fumarate 300 MG TABLET PO (21:01)
[2024-07-26] MEDS: Montelukast Sodium 10 MG TABLET PO (21:01)
[2024-07-26] MEDS: Prazosin HCL 5 MG CAPSULE PO (21:02)
[2024-07-26] MEDS: Prazosin HCL 1 MG CAPSULE PO (21:02)
[2024-07-26] MEDS: lisinopriL 10 MG TABLET PO (21:02)
[2024-07-26] MEDS: Insulin Glargine,Hum.rec.anlog 100 UNIT/ML 10 ML VIAL 45 UNIT SUBCUT (21:05)
--- NOTE | 2024-07-26 21:32 | W.PM.IDCN ---
History of Present Illness Data of Consult Service Date: 07/26/24 Requesting physician: Chaim Bauer Primary Care Provider: LOUIE Finley HPI Reason for consult: pain on urination She presents to ER with pain on urination for a day. She has no fever at this time. She went to ER on 07/02 for dysuria and received Macrodantin for five days. She didnt get better and had abdominal pain now. Review of Systems Review of Systems: Yes all other systems are reviewed and are negative [facility]LY [facility] Past Medical History Medical History Right fibular fracture Obesity Osteoporosis Hypercapnia COPD (chronic obstructive pulmonary disease) Hypothyroidism Multinodular thyroid HLD (hyperlipidemia) T2DM (type 2 diabetes mellitus) Pneumonitis Chronic respiratory failure Pulmonary nodules Pneumonia Acute and chronic respiratory failure with hypoxia MORGAN on CPAP Morbid (severe) obesity due to excess calories Chronic restrictive lung disease Obesity due to excess calories DM2 (diabetes mellitus, type 2) HLD (hyperlipidemia) Diabetes Goiter Vitamin D deficiency Hypothyroidism Fibula fracture Hx of fracture of patella Back pain GERD (gastroesophageal reflux disease) Hepatitis History of posttraumatic stress disorder (PTSD) Depression Myocardial infarction AAA (abdominal aortic aneurysm) without rupture Morbid obesity Hernia Umbilical hernia PTSD (post-traumatic stress disorder) ADHD Schizo affective schizophrenia Arthritis Migraine Diabetes HTN (hypertension) Gallstone Aortic aneurysm Sleep apnea Asthma Family History Family History Father Unknown family medical history Mother Unknown family medical history Sister Ovarian cancer Son No problems noted. Son Depression Son Asthma Bipolar 1 disorder ADHD Daughter No problems noted. Daughter Unknown family medical history Daughter Unknown family medical history Daughter No problems noted. Family history: reviewed and not pertinent Surgical History Surgical History Hx of knee surgery Hx of tubal ligation History of incision and drainage Tubal ligation status Social History Social History Household Members: Spouse Caregiver staying overnight: No Housing: Apartment Are you a primary wild animal caretaker to a significant other at home: No Do you presently have visiting nurse or other home services: Yes (home life per patient) 75 years or older and lives alone: No Unable to assess alcohol history related to: Unable to respond Alcohol intake: never Patient Tobacco Use Status: Former Tobacco user Tobacco use type: Cigarette Cigarette Packs Per Day: 6 Years Smoked: 35 e-Cigarette/Vaping Use: Currently Using Second Hand Smoke Exposure: No Substance Use Type: Marijuana Advance Directives Date on File: 09/13/21 service: No Current occupational status: unemployed Meds Allergies Allergy/AdvReac Type Severity Reaction Status Date / Time metformin Allergy Intermediate Diarrhea Verified 07/24/24 15:59 tetracycline Allergy Intermediate hives Verified 07/24/24 15:59 Latex, Natural Rubber Allergy Rash Verified 07/24/24 15:59 haloperidol [From HALDOL] AdvReac Intermediate Irritable Verified 07/24/24 15:59 Active Medications: Current Medications Acetaminophen (Acetaminophen 325 Mg Tablet) 975 mg PO Q6H PRN PRN Reason: Pain, Mild 1-3,fever,headache Last Admin: 07/26/24 06:41 Dose: 975 mg Albuterol Sulfate (Albuterol Sulfate (0.083%) 2.5 Mg/3 Ml Vial.Neb) 2.5 mg INHALE Q6H PRN PRN Reason: shortness of breath or wheezing Albuterol Sulfate (Albuterol Sulfate 90 Mcg 8 Gm Inhaler) 2 puff INHALE Q4H PRN PRN Reason: Shortness Of Breath Or Wheezing Amitriptyline HCl (Amitriptyline Hcl 10 Mg Tablet) 10 mg PO BEDTIME [facility] Last Admin: 07/26/24 21:01 Dose: 10 mg Artificial Tears (Artificial Tears 15 Ml Drops) 2 drop EYE-BOTH Q4H PRN PRN Reason: Dry Eyes Atenolol (Atenolol 50 Mg Tablet) 50 mg PO DAILY@1200 SHARI; Protocol Last Admin: 07/26/24 12:18 Dose: 50 mg Atorvastatin Calcium (Atorvastatin Calcium 40 Mg Tablet) 40 mg PO DAILY [facility] Last Admin: 07/26/24 08:21 Dose: 40 mg Benztropine Mesylate (Benztropine Mesylate 1 Mg Tablet) 1 mg PO BID@1200,2100 SHARI Last Admin: 07/26/24 21:02 Dose: 1 mg Calcium Carbonate (Calcium Carbonate 750 Mg Tab.Chew) 750 mg PO Q4H PRN PRN Reason: Heartburn Clotrimazole (Clotrimazole 1 % Cream 15 Gm Tube) 1 appl TOPICAL BID PRN PRN Reason: Inflammation Dextrose (Dextrose 50 % 25 Gm/50 Ml Syringe) 25 gm IVPUSH Q15M PRN; Protocol PRN Reason: per Hypoglycemia Standing Ord. Divalproex Sodium (Divalproex Sodium Er 250 Mg Tab.Er.24h) 250 mg PO DAILY@1200 [facility] Last Admin: 07/26/24 12:19 Dose: 250 mg Divalproex Sodium (Divalproex Sodium Er 500 Mg Tab.Er.24h) 500 mg PO DAILY@1200 [facility] Last Admin: 07/26/24 12:18 Dose: 500 mg Divalproex Sodium (Divalproex Sodium Er 500 Mg Tab.Er.24h) 1,000 mg PO BEDTIME [facility] Last Admin: 07/26/24 21:01 Dose: 1,000 mg Docusate Sodium (Docusate Sodium 100 Mg Capsule) 100 mg PO DAILY PRN PRN Reason: Constipation Enoxaparin Sodium (Enoxaparin Sodium 40 Mg/0.4 Ml Syringe) 40 mg SUBCUT Q12H [facility] Last Admin: 07/26/24 21:08 Dose: 40 mg Fluticasone Propionate (Fluticasone Propionate Nasal 16 Gm [place]) 1 spray NOSTRIL-B DAILY PRN PRN Reason: ALLERGIES Folic Acid (Folic Acid 1 Mg Tablet) 1 mg PO DAILY [facility] Last Admin: 07/26/24 08:22 Dose: 1 mg Furosemide (Furosemide 40 Mg Tablet) 40 mg PO DAILY [facility]; Protocol Last Admin: 07/26/24 08:21 Dose: 40 mg Glucose (Glucose Gel 15 Gm Gel..Gram.) 15 gm PO Q15M PRN; Protocol PRN Reason: per Hypoglycemia Standing Ord. Hydroxyzine HCl (Hydroxyzine Hcl 50 Mg Tablet) 50 mg PO TID PRN PRN Reason: Anxiety, Sleep, Agitation Last Admin: 07/25/24 20:43 Dose: 50 mg Insulin Glargine (Insulin Glargine,Hum.Rec.Anlog 100 Unit/Ml 10 Ml Vial) 45 unit SUBCUT BEDTIME [facility] Last Admin: 07/26/24 21:05 Dose: 45 unit Insulin Human Lispro (Insulin Lispro 100 Unit/Ml 3 Ml Vial) 0 unit SUBCUT QIDACHS [facility]; Protocol Last Admin: 07/26/24 21:06 Dose: 2 unit Lactic Acid (Ammonium Lactate 12 % Lotion 226 Gm Bottle) 1 appl TOPICAL DAILY PRN; Protocol PRN Reason: Dry Skin Levothyroxine Sodium (Levothyroxine Sodium 150 Mcg Tablet) 150 mcg PO DAILY@0600 [facility] Last Admin: 07/26/24 17:35 Dose: 150 mcg Lidocaine (Lidocaine 4 % Patch Adh..Patch) 2 patch TRANSDERMA DAILY [facility] Last Admin: 07/26/24 08:22 Dose: 2 patch Lisinopril (Lisinopril 10 Mg Tablet) 10 mg PO BEDTIME [facility]; Protocol Last Admin: 07/26/24 21:02 Dose: 10 mg Loratadine (Loratadine 10 Mg Tablet) 10 mg PO DAILY PRN PRN Reason: allergies Lorazepam (Lorazepam 1 Mg Tablet) 1 mg PO DAILY PRN PRN Reason: panic attack Lurasidone HCl (Lurasidone Hcl 20 Mg Tablet) 60 mg PO DAILY@0800 [facility] Last Admin: 07/26/24 08:22 Dose: 60 mg Magnesium Hydroxide (Milk Of Magnesia 30 Ml Oral.Susp) 30 ml PO DAILY PRN PRN Reason: Constipation Melatonin (Melatonin 3 Mg Tablet) 9 mg PO BEDTIME PRN PRN Reason: insomnia Meropenem (Meropenem 1 Gm Vial) 1 gm IVPUSH Q8H [facility] Last Admin: 07/26/24 21:18 Dose: 1 gm Montelukast Sodium (Montelukast Sodium 10 Mg Tablet) 10 mg PO BEDTIME [facility] Last Admin: 07/26/24 21:01 Dose: 10 mg Morphine Sulfate (Morphine Sulfate 4 Mg/Ml Cartridge) 2 mg IVPUSH Q4H PRN; Protocol PRN Reason: Pain, Severe (Pain Scale 7-10) Last Admin: 07/26/24 01:25 Dose: 2 mg Multivitamins/Vitamin C (Multivitamin Tablet) 1 tab PO DAILY@1200 [facility] Last Admin: 07/26/24 12:19 Dose: 1 tab Nicotine Polacrilex (Nicotine Polacrilex 2 Mg Gum) 4 mg BUCCAL Q2H PRN PRN Reason: Nicotine Cravings Last Admin: 07/26/24 15:31 Dose: 4 mg Non-Formulary Medication (Grufsvmrky-Xmnchamu-Sdiiemaufw [Breztri Aerosphere]) 2 inhalation INHALE BID [facility] Pt Own Medication ( Rimegepant [Nurtec Odt] 75 Mg Tablet, Disintegrating) 75 mg PO DAILY PRN PRN Reason: migraine Nystatin (Nystatin Powder 15 Gm Bottle) 1 appl TOPICAL BID [facility]; Protocol Last Admin: 07/26/24 08:22 Dose: 1 appl Ondansetron HCl (Ondansetron Hcl 4 Mg/2 Ml Vial) 4 mg IVPUSH Q8H PRN PRN Reason: Nausea and Vomiting Oxycodone HCl (Oxycodone Hcl Immed Release 5 Mg Tablet) 5 mg PO Q6H PRN PRN Reason: Pain, Moderate(Pain Scale 4-6) Last Admin: 07/26/24 13:42 Dose: 5 mg Prazosin HCl (Prazosin Hcl 1 Mg Capsule) 1 mg PO BEDTIME [facility]; Protocol Last Admin: 07/26/24 21:02 Dose: 1 mg Prazosin HCl (Prazosin Hcl 5 Mg Capsule) 5 mg PO BEDTIME [facility]; Protocol Last Admin: 07/26/24 21:02 Dose: 5 mg Quetiapine Fumarate (Quetiapine Fumarate 100 Mg Tablet) 100 mg PO DAILY@1200 PRN PRN Reason: Anxiety Quetiapine Fumarate (Quetiapine Fumarate 300 Mg Tablet) 300 mg PO BEDTIME [facility] Last Admin: 07/26/24 21:01 Dose: 300 mg Scopolamine (Scopolamine 1.5 Mg Patch.Td.3) 1.5 mg TRANSDERMA Q3D [facility] Last Admin: 07/25/24 10:50 Dose: 1.5 mg Sodium Chloride (0.9 % Sodium Chloride Flush 3 Ml Syringe) 3 ml IVFLUSH QSHIFT [facility] Last Admin: 07/26/24 21:11 Dose: 3 ml Vitamin D (Cholecalciferol (Vitamin D3) 25 Mcg Tablet) 50 mcg PO DAILY [facility] Last Admin: 07/26/24 08:22 Dose: 50 mcg Home Medications ?Medication ?Instructions ?Recorded ?Confirmed ?Last Taken ?Type amitriptyline 10 mg tablet 10 mg PO BEDTIME 01/10/20 07/24/24 07/23/24 History benztropine 1 mg tablet 1 mg PO BID@1200,2100 01/10/20 07/24/24 07/24/24 History lisinopril 10 mg tablet 10 mg PO BEDTIME 01/10/20 07/24/24 07/23/24 History montelukast 10 mg tablet 10 mg PO BEDTIME 01/10/20 07/24/24 07/23/24 History multivitamin 1 tab PO DAILY@1200 01/10/20 07/24/24 07/24/24 History atenolol 50 mg tablet 50 mg PO DAILY@1200 04/20/21 07/24/24 07/24/24 History docusate sodium 100 mg capsule 100 mg PO DAILY PRN Constipation 04/20/21 07/24/24 12/21/23 History folic acid 1 mg tablet 1 mg PO DAILY 04/20/21 07/24/24 07/24/24 History furosemide 40 mg tablet 40 mg PO DAILY 04/20/21 07/24/24 07/24/24 History lurasidone 60 mg tablet (Latuda) 60 mg PO DAILY@0800 04/20/21 07/24/24 07/24/24 History melatonin 5 mg tablet 10 mg PO BEDTIME PRN insomnia 04/20/21 07/24/24 12/21/23 History prazosin 5 mg capsule 5 mg PO BEDTIME 04/20/21 07/24/24 07/23/24 History alendronate 70 mg tablet 1 tab PO MO@0600 04/22/21 07/24/24 07/22/24 History diclofenac sodium 1 % topical gel 2 g topical BID PRN Pain 04/22/21 07/24/24 12/21/23 History fluticasone propionate 50 1 spray intranasal DAILY PRN 04/22/21 07/24/24 12/21/23 History mcg/actuation nasal ALLERGIES spray,suspension hydroxyzine HCl 50 mg tablet 1 - 2 tab PO TID PRN Anxiety, 04/22/21 07/24/24 12/21/23 History Sleep, Agitation cholecalciferol (vitamin D3) 50 50 mcg PO DAILY 07/20/21 07/24/24 07/24/24 History mcg (2,000 unit) tablet acetaminophen 500 mg tablet 500 mg PO Q6H PRN Pain 09/08/21 07/24/24 12/21/23 History lidocaine 5 % topical patch 2 patch topical DAILY 09/08/21 07/24/24 12/21/23 History Oxygen Home Use 03/25/22 09/29/22 Unknown History nebulizers 03/25/22 09/29/22 Unknown History cetirizine 10 mg tablet 10 mg PO DAILY PRN allergies 09/08/22 07/24/24 12/21/23 History prazosin 1 mg capsule 1 mg PO BEDTIME 09/08/22 07/24/24 07/23/24 History econazole nitrate 1 % topical cream 1 appl topical BID PRN Inflammation 03/30/23 07/24/24 Unknown History ammonium lactate 12 % lotion 1 appl topical DAILY PRN Dry Skin 11/01/23 07/24/24 12/21/23 History lorazepam 1 mg tablet 1 mg PO DAILY PRN panic attack 11/01/23 07/24/24 12/21/23 History naproxen 500 mg tablet 500 mg PO BID PRN Pain 11/01/23 07/24/24 12/21/23 History nystatin 100,000 unit/gram topical 1 appl topical BID 11/01/23 07/24/24 07/24/24 History powder rimegepant 75 mg disintegrating 75 mg PO NEEDED PRN migraine 11/01/23 07/24/24 12/21/23 History tablet (Nurtec ODT) quetiapine 100 mg tablet 100 mg PO DAILY@1200 PRN Anxiety 12/22/23 07/24/24 07/24/24 History atorvastatin 40 mg tablet 40 mg PO DAILY 07/24/24 07/24/24 07/24/24 History divalproex 250 mg tablet,extended 250 mg PO DAILY@1200 07/24/24 07/24/24 07/24/24 History release 24 hr divalproex 500 mg tablet,extended 1,000 mg PO BEDTIME 07/24/24 07/24/24 07/23/24 History release 24 hr divalproex 500 mg tablet,extended 500 mg PO DAILY@1200 07/24/24 07/24/24 07/24/24 History release 24 hr insulin lispro 100 unit/mL 14 - 24 unit subcut TIDWMEAL 07/24/24 07/24/24 07/24/24 History subcutaneous pen (Humalog KwikPen (U-100) Insulin) nicotine (polacrilex) 4 mg gum 4 mg PO Q2H PRN Nicotine Cravings 07/24/24 07/24/24 07/24/24 History quetiapine 300 mg tablet 300 mg PO BEDTIME 07/24/24 07/24/24 07/23/24 History scopolamine base 1 mg over 3 days 1 patch topical Q3D 07/24/24 07/24/24 3 Days Ago History transdermal patch ~07/21/24 tirzepatide 7.5 mg/0.5 mL 7.5 mg subcut MO 07/24/24 07/24/24 07/22/24 History subcutaneous pen injector (Bree) Physical Exam Vital Signs: Vital Signs: Last Vital Signs Temp 98.1 F 07/26/24 19:34 Pulse 83 07/26/24 19:34 Resp 18 07/26/24 19:34 BP 113/56 L 07/26/24 19:34 Pulse Ox 93 07/26/24 19:34 O2 Del Method Nasal Cannula 07/26/24 19:34 O2 Flow Rate 6 07/26/24 19:34 Oxygen Flow Rate 6 07/24/24 15:59 BMI result Body Mass Index 80.8 Const: General: cooperative HEENT: Head: Yes normal to inspection Face and sinus: Yes normal facial exam Mouth: Normal oral and palatal mucosa present Teeth and gingiva: dentition normal Eyes: General: appearance normal, both eyes and all related structures Pupils: Equal, round and reactive pupils present Resp: Effort & Inspection: normal respiratory effort Cardio: Rate: regular rate Rhythm: regular rhythm GI: Palpation (GI): Soft to palpation and nontender : General: Yes no CVA tenderness Back/Spine/Pelvis: Back: no CVA tenderness Skin: General skin exam: no rashes or lesions noted Neuro: General: moves all extremities Cranial nerves: Yes Equal, round and reactive pupils present Extrem: General: Yes normal to inspection Psych: Appearance: grossly normal Results Labs 07/26/24 05:10 07/26/24 05:10 Labs: Short CBC 07/26/24 Range/Units 05:10 WBC 5.8 (4.8-10.8) X10*3/uL Hgb 9.7 L (12.0-16.0) g/dl Hct 31.2 L (37.0-47.0) % Plt Count 291 (160-400) X10*3/uL BMP 07/26/24 05:10 Sodium 132 L Potassium 4.2 Chloride 85 L Carbon Dioxide 39 H BUN 8 L Creatinine 0.68 Calcium 9.6 Microbiology Microbiology Results: Microbiology 07/24/24 19:15 Blood - Venous Blood Culture - Preliminary No growth after 48 hours. 07/24/24 Unknown Urine clean catch - Clean Catch Midstream Urine Culture - Preliminary Culture in progress. 07/24/24 21:01 Blood - Venous Blood Culture - Preliminary No growth after 24 hours. Assessment and Plan (1) Lactic acidosis: Status: Acute (2) UTI (urinary tract infection): Status: Acute Plan MDR E coli UTI likely causing symptoms She has COPD and DM. Ertapenem for 10 days
[2024-07-27] VITALS (7 sets, daily range): BP systolic 101–144; BP diastolic 60–84; PULSE 72–85; RESP 16–24; TEMP 36.1–36.4; O2SAT 91–97
[2024-07-27] MEDS: Morphine Sulfate 4 MG/ML CARTRIDGE 2 MG IVPUSH ×3 (01:40→21:49)
[2024-07-27] MEDS: Levothyroxine Sodium 150 MCG TABLET PO (06:08)
[2024-07-27] MEDS: Meropenem 1 GM VIAL IVPUSH ×3 (06:14→21:14)
--- NOTE | 2024-07-27 07:17 | PC.NURSE ---
Late entry: Pt has been resistive w/ care throughout the credit products officer. Pt refused to have head of bed elevated, HX of COPD and CPAP at bedtime w/ 6L O2. Pt was educated on the importance of elevating the head of bead to help with her breathing. Pt screamed at this RN to leave her alone. Pt's bed in the lowest position w/ call barcenas w/in reach. Will continue to monitor pt's behavior.
[2024-07-27 07:40] LABS: MANUAL DIFF FLAG NO
[2024-07-27 07:44] LABS: Basophils Absolute Auto 0.1 X10*3/uL (0.0-0.2); Basophils Percent Auto 0.8 % (0-2); Eosinophils Absolute Auto 0.2 X10*3/uL (0.0-0.4); Eosinophils Percent Auto 3.8 % (0-4); Hemoglobin 9.2 g/dl (12.0-16.0); Imm Gran Abs Auto 0.07 X10*3/uL (0.00-0.03); Imm Gran Pct Auto 1.1 % (0.0-0.4); Lymphocytes Absolute Auto 3.2 X10*3/uL (1.2-4.9); Lymphocytes Percent Auto 50.7 % (20-40); Mean Corpuscular HGB Conc 31.7 g/dl (31.0-35.0); Mean Corpuscular Hemoglobin 26.5 pg (27.0-33.0); Mean Corpuscular Volume 83.6 fL (80.0-98.0); Monocytes Absolute Auto 0.6 X10*3/uL (0.1-1.2); Monocytes Percent Auto 9.4 % (2-11); NRBC Pct Auto 0.5 /100WBC (0.0-0.2); Neutrophils Absolute Auto 2.2 x10*3/uL (2.0-8.3); Neutrophils Percent Auto 34.2 % (45-73); Platelet Count 297 X10*3/uL (160-400); Red Blood Count 3.47 X10*6/uL (4.20-5.50); Red Cell Distribution Width 16.3 % (11.0-16.0); White Blood Count 6.4 X10*3/uL (4.8-10.8)
[2024-07-27 07:59] LABS: Anion Gap 13 (12-20); Blood Urea Nitrogen 10 mg/dL (9-16); Calcium 9.5 mg/dL (8.4-10.2); Carbon Dioxide 37 mmol/L (22-29); Chloride 85 mmol/L (96-108); Creatinine Clr Calc Pharmacy 172.4; Estimated Glomerular Filt Rate > 60; Glucose Random 173 mg/dL (60-115); Potassium 4.2 mmol/L (3.3-5.1); Sodium 131 mmol/L (135-145)
[2024-07-27] MEDS: Albuterol Sulfate (0.083%) 2.5 MG/3 ML VIAL.NEB INHALE (08:01)
[2024-07-27 08:03] LABS: Glucose, Whole Blood 182 mg/dL (60-115)
--- NOTE | 2024-07-27 08:40 | HO.PM.IMPN ---
Subjective Subjective Date of Service: 07/27/24 Interval History: Follow up for treatment of UTI. Patient is being treated with IVP Meropenum. No new issues, cultures still pending Review of Systems Denies dysuria, hematuria, fever, chills, dizziness malaise Physical Exam Vital Signs: Vital Signs: Last Vital Signs Temp 97.3 F 07/27/24 08:00 Pulse 85 07/27/24 08:04 Resp 24 H 07/27/24 08:04 BP 101/60 07/27/24 08:00 Pulse Ox 91 L 07/27/24 08:00 O2 Del Method Nasal Cannula 07/27/24 08:00 O2 Flow Rate 6 07/27/24 08:00 Oxygen Flow Rate 6 07/24/24 15:59 BMI result Body Mass Index 80.8 Const: Other: Gen: comfortable NAD, Morbidly Obese ?CV: RRR, no M/R/G ?Pulm: CTAB ?GI: +nl BS, soft, NDNT ?ext: no C/C/E Objective Data Active Medications Acetaminophen (Acetaminophen 325 Mg Tablet) 975 mg PO Q6H PRN PRN Reason: Pain, Mild 1-3,fever,headache Last Admin: 07/26/24 06:41 Dose: 975 mg Documented By: ANMOL Albuterol Sulfate (Albuterol Sulfate (0.083%) 2.5 Mg/3 Ml Vial.Neb) 2.5 mg INHALE Q6H PRN PRN Reason: shortness of breath or wheezing Last Admin: 07/27/24 08:01 Dose: 2.5 mg Documented By: DAMIAN Albuterol Sulfate (Albuterol Sulfate 90 Mcg 8 Gm Inhaler) 2 puff INHALE Q4H PRN PRN Reason: Shortness Of Breath Or Wheezing Amitriptyline HCl (Amitriptyline Hcl 10 Mg Tablet) 10 mg PO BEDTIME [facility] Last Admin: 07/26/24 21:01 Dose: 10 mg Documented By: CAMILO Artificial Tears (Artificial Tears 15 Ml Drops) 2 drop EYE-BOTH Q4H PRN PRN Reason: Dry Eyes Atenolol (Atenolol 50 Mg Tablet) 50 mg PO DAILY@1200 [facility]; Protocol Last Admin: 07/26/24 12:18 Dose: 50 mg Documented By: CLEOPATRA Atorvastatin Calcium (Atorvastatin Calcium 40 Mg Tablet) 40 mg PO DAILY [facility] Last Admin: 07/26/24 08:21 Dose: 40 mg Documented By: CLEOPATRA Benztropine Mesylate (Benztropine Mesylate 1 Mg Tablet) 1 mg PO BID@1200,2100 [facility] Last Admin: 07/26/24 21:02 Dose: 1 mg Documented By: CAMIOL Calcium Carbonate (Calcium Carbonate 750 Mg Tab.Chew) 750 mg PO Q4H PRN PRN Reason: Heartburn Clotrimazole (Clotrimazole 1 % Cream 15 Gm Tube) 1 appl TOPICAL BID PRN PRN Reason: Inflammation Dextrose (Dextrose 50 % 25 Gm/50 Ml Syringe) 25 gm IVPUSH Q15M PRN; Protocol PRN Reason: per Hypoglycemia Standing Ord. Divalproex Sodium (Divalproex Sodium Er 250 Mg Tab.Er.24h) 250 mg PO DAILY@1200 [facility] Last Admin: 07/26/24 12:19 Dose: 250 mg Documented By: CLEOPATRA Divalproex Sodium (Divalproex Sodium Er 500 Mg Tab.Er.24h) 500 mg PO DAILY@1200 [facility] Last Admin: 07/26/24 12:18 Dose: 500 mg Documented By: CLEOPATRA Divalproex Sodium (Divalproex Sodium Er 500 Mg Tab.Er.24h) 1,000 mg PO BEDTIME [facility] Last Admin: 07/26/24 21:01 Dose: 1,000 mg Documented By: CAMILO Docusate Sodium (Docusate Sodium 100 Mg Capsule) 100 mg PO DAILY PRN PRN Reason: Constipation Enoxaparin Sodium (Enoxaparin Sodium 40 Mg/0.4 Ml Syringe) 40 mg SUBCUT Q12H [facility] Last Admin: 07/26/24 21:08 Dose: 40 mg Documented By: CAMILO Fluticasone Propionate (Fluticasone Propionate Nasal 16 Gm [place]) 1 spray NOSTRIL-B DAILY PRN PRN Reason: ALLERGIES Folic Acid (Folic Acid 1 Mg Tablet) 1 mg PO DAILY [facility] Last Admin: 07/26/24 08:22 Dose: 1 mg Documented By: CLEOPATRA Furosemide (Furosemide 40 Mg Tablet) 40 mg PO DAILY [facility]; Protocol Last Admin: 07/26/24 08:21 Dose: 40 mg Documented By: CLEOPATRA Glucose (Glucose Gel 15 Gm Gel..Gram.) 15 gm PO Q15M PRN; Protocol PRN Reason: per Hypoglycemia Standing Ord. Hydroxyzine HCl (Hydroxyzine Hcl 50 Mg Tablet) 50 mg PO TID PRN PRN Reason: Anxiety, Sleep, Agitation Last Admin: 07/25/24 20:43 Dose: 50 mg Documented By: ANMOL Insulin Glargine (Insulin Glargine,Hum.Rec.Anlog 100 Unit/Ml 10 Ml Vial) 45 unit SUBCUT BEDTIME [facility] Last Admin: 07/26/24 21:05 Dose: 45 unit Documented By: CAMILO Insulin Human Lispro (Insulin Lispro 100 Unit/Ml 3 Ml Vial) 0 unit SUBCUT QIDACHS [facility]; Protocol Last Admin: 07/26/24 21:06 Dose: 2 unit Documented By: CAMILO Lactic Acid (Ammonium Lactate 12 % Lotion 226 Gm Bottle) 1 appl TOPICAL DAILY PRN; Protocol PRN Reason: Dry Skin Levothyroxine Sodium (Levothyroxine Sodium 150 Mcg Tablet) 150 mcg PO DAILY@0600 [facility] Last Admin: 07/27/24 06:08 Dose: 150 mcg Documented By: CAMILO Lidocaine (Lidocaine 4 % Patch Adh..Patch) 2 patch TRANSDERMA DAILY [facility] Last Admin: 07/26/24 08:22 Dose: 2 patch Documented By: CLEOPATRA Lisinopril (Lisinopril 10 Mg Tablet) 10 mg PO BEDTIME [facility]; Protocol Last Admin: 07/26/24 21:02 Dose: 10 mg Documented By: CAMILO Loratadine (Loratadine 10 Mg Tablet) 10 mg PO DAILY PRN PRN Reason: allergies Lorazepam (Lorazepam 1 Mg Tablet) 1 mg PO DAILY PRN PRN Reason: panic attack Lurasidone HCl (Lurasidone Hcl 20 Mg Tablet) 60 mg PO DAILY@0800 [facility] Last Admin: 07/26/24 08:22 Dose: 60 mg Documented By: CLEOPATRA Magnesium Hydroxide (Milk Of Magnesia 30 Ml Oral.Susp) 30 ml PO DAILY PRN PRN Reason: Constipation Melatonin (Melatonin 3 Mg Tablet) 9 mg PO BEDTIME PRN PRN Reason: insomnia Meropenem (Meropenem 1 Gm Vial) 1 gm IVPUSH Q8H [facility] Last Admin: 07/27/24 06:14 Dose: 1 gm Documented By: CAMILO Montelukast Sodium (Montelukast Sodium 10 Mg Tablet) 10 mg PO BEDTIME [facility] Last Admin: 07/26/24 21:01 Dose: 10 mg Documented By: CAMILO Morphine Sulfate (Morphine Sulfate 4 Mg/Ml Cartridge) 2 mg IVPUSH Q4H PRN; Protocol PRN Reason: Pain, Severe (Pain Scale 7-10) Last Admin: 07/27/24 06:37 Dose: 2 mg Documented By: CAMILO Multivitamins/Vitamin C (Multivitamin Tablet) 1 tab PO DAILY@1200 [facility] Last Admin: 07/26/24 12:19 Dose: 1 tab Documented By: CLEOPATRA Nicotine Polacrilex (Nicotine Polacrilex 2 Mg Gum) 4 mg BUCCAL Q2H PRN PRN Reason: Nicotine Cravings Last Admin: 07/26/24 15:31 Dose: 4 mg Documented By: JARED Non-Formulary Medication (Feqqaxxnba-Kgjucgnp-Fcpnkevqew [Breztri Aerosphere]) 2 inhalation INHALE BID SHARI Pt Own Medication ( Rimegepant [Nurtec Odt] 75 Mg Tablet, Disintegrating) 75 mg PO DAILY PRN PRN Reason: migraine Nystatin (Nystatin Powder 15 Gm Bottle) 1 appl TOPICAL BID [facility]; Protocol Last Admin: 07/26/24 21:06 Dose: Not Given Documented By: CAMILO Non-Admin Reason: Med Not Available Ondansetron HCl (Ondansetron Hcl 4 Mg/2 Ml Vial) 4 mg IVPUSH Q8H PRN PRN Reason: Nausea and Vomiting Oxycodone HCl (Oxycodone Hcl Immed Release 5 Mg Tablet) 5 mg PO Q6H PRN PRN Reason: Pain, Moderate(Pain Scale 4-6) Last Admin: 07/26/24 13:42 Dose: 5 mg Documented By: CLEOPATRA Prazosin HCl (Prazosin Hcl 1 Mg Capsule) 1 mg PO BEDTIME [facility]; Protocol Last Admin: 07/26/24 21:02 Dose: 1 mg Documented By: CAMILO Prazosin HCl (Prazosin Hcl 5 Mg Capsule) 5 mg PO BEDTIME [facility]; Protocol Last Admin: 07/26/24 21:02 Dose: 5 mg Documented By: CAMILO Quetiapine Fumarate (Quetiapine Fumarate 100 Mg Tablet) 100 mg PO DAILY@1200 PRN PRN Reason: Anxiety Quetiapine Fumarate (Quetiapine Fumarate 300 Mg Tablet) 300 mg PO BEDTIME [facility] Last Admin: 07/26/24 21:01 Dose: 300 mg Documented By: CAMILO Scopolamine (Scopolamine 1.5 Mg Patch.Td.3) 1.5 mg TRANSDERMA Q3D [facility] Last Admin: 07/25/24 10:50 Dose: 1.5 mg Documented By: AKILA Sodium Chloride (0.9 % Sodium Chloride Flush 3 Ml Syringe) 3 ml IVFLUSH QSHIFT [facility] Last Admin: 07/26/24 21:11 Dose: 3 ml Documented By: CAMILO Vitamin D (Cholecalciferol (Vitamin D3) 25 Mcg Tablet) 50 mcg PO DAILY [facility] Last Admin: 07/26/24 08:22 Dose: 50 mcg Documented By: CLEOPATRA Labs 07/27/24 06:49 07/27/24 06:49 Labs: Laboratory Results - last 24 hr 07/26/24 07/26/24 07/26/24 05:10 11:44 16:44 MCV MCH MCHC RDW Plt Count MPV Immature Gran % (Auto) Neut % (Auto) Lymph % (Auto) Isabella % (Auto) Eos % (Auto) Baso % (Auto) Lymph # (Auto) Isabella # (Auto) Eos # (Auto) Baso # (Auto) Abs Immat Gran (auto) Absolute Neuts (auto) Absolute Nucleated RBC Nucleated RBC % (auto) Anion Gap Estim Creat Clear Calc Estimated GFR POC Glucose 197 H 189 H Random Glucose Calcium TSH 32.29 H Free T4 < 0.42 L 07/26/24 07/27/24 07/27/24 20:18 06:49 07:52 MCV 83.6 MCH 26.5 L MCHC 31.7 RDW 16.3 H Plt Count 297 MPV 11.0 Immature Gran % (Auto) 1.1 H Neut % (Auto) 34.2 L Lymph % (Auto) 50.7 H Isabella % (Auto) 9.4 Eos % (Auto) 3.8 Baso % (Auto) 0.8 Lymph # (Auto) 3.2 Isabella # (Auto) 0.6 Eos # (Auto) 0.2 Baso # (Auto) 0.1 Abs Immat Gran (auto) 0.07 H Absolute Neuts (auto) 2.2 Absolute Nucleated RBC 0.030 H Nucleated RBC % (auto) 0.5 H Anion Gap 13 Estim Creat Clear Calc 172.4 Estimated GFR > 60 POC Glucose 184 H 182 H Random Glucose 173 H Calcium 9.5 TSH Free T4 Microbiology Microbiology Results: Microbiology 07/24/24 21:01 Blood Culture - Preliminary Blood - Venous No growth after 48 hours. 07/24/24 19:15 Blood Culture - Preliminary Blood - Venous No growth after 48 hours. 07/24/24 Unknown Urine Culture - Preliminary Urine clean catch - Clean Catch Midstream Culture in progress. Assessment and Plan (1) UTI (urinary tract infection): Status: Acute Plan patient is a 54-year-old female with a past medical history significant for morbid obesity, HLD, chronic respiratory failure with hypoxia and hypercapnia, obesity hypoventilation and pulmonary edema on 7 L NC and CPAP at night, mood disorder, PTSD, history NSTEMI, HTN, insulin-dependent diabetes, GERD and hepatitis, who presented to the ED due to ongoing dysuria after outpatient treatment for urinary tract infection with Macrobid. UTI, history of resistant e coli, awaiting on culture, continue meropenem, will probably need iv abx upon discharge electrolyte abnormality, chronic at baseline --stable. lactic acidosis Likely do to liver disease type 2 diabetes continue lantus, ssi and diabetic diet Psych Continue home medications morbid obesity BMI 79.7 patient on GLP 1 Mounjaro at home. weight loss encouraged Code: Full VTE: prophylaxis Lovenox patient with multidrug resistance UTI requiring admission for at least 2 midnights stay for IV meropenem, ID consultation and monitoring. Quality Stroke Does the patient have a stroke diagnosis?: No VTE Prior VTE?: No VTE Risk Level:: Medical - moderate - high VTE Device Contraindication: Treatment Not Indicated VTE Drug Contraindication: N/A - Med Ordered
[2024-07-27] MEDS: Insulin Lispro 100 UNIT/ML 3 ML VIAL SUBCUT ×4 (09:19→21:11)
[2024-07-27] MEDS: Enoxaparin Sodium 40 MG/0.4 ML SYRINGE SUBCUT ×2 (09:20→21:11)
[2024-07-27] MEDS: Atorvastatin Calcium 40 MG TABLET PO (09:22)
[2024-07-27] MEDS: Cholecalciferol (Vitamin D3) 25 MCG TABLET 50 MCG PO (09:22)
[2024-07-27] MEDS: Lurasidone HCl 20 MG TABLET 60 MG PO (09:22)
[2024-07-27] MEDS: Folic Acid 1 MG TABLET PO (09:22)
[2024-07-27] MEDS: Furosemide 40 MG TABLET PO (09:22)
[2024-07-27] MEDS: 0.9 % Sodium Chloride Flush 3 ML SYRINGE IVFLUSH ×3 (09:24→21:14)
[2024-07-27] MEDS: Nystatin Powder 15 GM BOTTLE 1 APPL TOPICAL ×2 (09:25→21:51)
[2024-07-27] MEDS: Divalproex Sodium ER 250 MG TAB.ER.24H PO (11:52)
[2024-07-27] MEDS: Multivitamin TABLET 1 TAB PO (11:52)
[2024-07-27] MEDS: Benztropine Mesylate 1 MG TABLET PO ×2 (11:52→21:08)
[2024-07-27] MEDS: atenoloL 50 MG TABLET PO (11:52)
[2024-07-27] MEDS: Divalproex Sodium ER 500 MG TAB.ER.24H PO (11:52)
[2024-07-27 12:05] LABS: Glucose, Whole Blood 178 mg/dL (60-115)
[2024-07-27 16:11] LABS: Glucose, Whole Blood 197 mg/dL (60-115)
[2024-07-27] MEDS: Fluticasone/Umeclidinium/Vilanterol 100/62.5/25 BLST.W.DEV 1 PUFF INHALE (16:52)
[2024-07-27 20:13] LABS: Glucose, Whole Blood 234 mg/dL (60-115)
[2024-07-27] MEDS: Divalproex Sodium ER 500 MG TAB.ER.24H 1000 MG PO (21:08)
[2024-07-27] MEDS: Prazosin HCL 5 MG CAPSULE PO (21:08)
[2024-07-27] MEDS: QUEtiapine Fumarate 300 MG TABLET PO (21:08)
[2024-07-27] MEDS: Prazosin HCL 1 MG CAPSULE PO (21:08)
[2024-07-27] MEDS: Montelukast Sodium 10 MG TABLET PO (21:08)
[2024-07-27] MEDS: Amitriptyline HCl 10 MG TABLET PO (21:09)
[2024-07-27] MEDS: lisinopriL 10 MG TABLET PO (21:09)
[2024-07-27] MEDS: Insulin Glargine,Hum.rec.anlog 100 UNIT/ML 10 ML VIAL 45 UNIT SUBCUT (21:11)
[2024-07-27] MEDS: Budesonide 180 MCG AER.POW.BA 1 PUFF INHALE (21:16)
[2024-07-27] MEDS: Artificial Tears 15 ML DROPS 2 DROP EYE-BOTH (21:51)
[2024-07-28 03:47] VITALS: BP 101/52; PULSE 68; RESP 20; TEMP 36.1; O2SAT 95
[2024-07-28] MEDS: Levothyroxine Sodium 150 MCG TABLET PO (06:18)
[2024-07-28] MEDS: Meropenem 1 GM VIAL IVPUSH ×3 (06:18→20:07)
[2024-07-28 07:31] LABS: Glucose, Whole Blood 230 mg/dL (60-115)
[2024-07-28 07:32] VITALS: BP 103/51; PULSE 81; RESP 18; TEMP 36.8; O2SAT 94
[2024-07-28] MEDS: Insulin Lispro 100 UNIT/ML 3 ML VIAL SUBCUT ×4 (07:44→20:08)
[2024-07-28] MEDS: Cholecalciferol (Vitamin D3) 25 MCG TABLET 50 MCG PO (07:48)
[2024-07-28] MEDS: Lurasidone HCl 20 MG TABLET 60 MG PO (07:48)
[2024-07-28] MEDS: Furosemide 40 MG TABLET PO (07:49)
[2024-07-28] MEDS: Folic Acid 1 MG TABLET PO (07:49)
[2024-07-28] MEDS: Atorvastatin Calcium 40 MG TABLET PO (07:49)
[2024-07-28] MEDS: 0.9 % Sodium Chloride Flush 3 ML SYRINGE IVFLUSH ×3 (07:50→20:07)
[2024-07-28] MEDS: Nystatin Powder 15 GM BOTTLE 1 APPL TOPICAL ×2 (07:50→20:10)
[2024-07-28] MEDS: oxyCODONE HCl Immed Release 5 MG TABLET PO ×2 (07:50→20:24)
--- NOTE | 2024-07-28 08:29 | P.PNIM_ITS ---
Subjective Subjective Date of Service: 07/28/24 Interval History: Follow up for treatment of UTI. Patient is being treated with IVP Meropenum. No new issues, cultures are negative. Review of Systems Denies dysuria, hematuria, fever, chills, dizziness malaise Physical Exam 2 Vital Signs: Vital Signs: Last Vital Signs Temp 98.2 F 07/28/24 07:32 Pulse 81 07/28/24 07:32 Resp 18 07/28/24 07:32 BP 103/51 L 07/28/24 07:32 Pulse Ox 94 07/28/24 07:32 O2 Del Method Nasal Cannula 07/28/24 07:32 O2 Flow Rate 6.0 07/28/24 07:32 Oxygen Flow Rate 6 07/24/24 15:59 BMI result Body Mass Index 80.8 Objective Data Active Medications Acetaminophen (Acetaminophen 325 Mg Tablet) 975 mg PO Q6H PRN PRN Reason: Pain, Mild 1-3,fever,headache Last Admin: 07/26/24 06:41 Dose: 975 mg Documented By: ANMOL Albuterol Sulfate (Albuterol Sulfate (0.083%) 2.5 Mg/3 Ml Vial.Neb) 2.5 mg INHALE Q6H PRN PRN Reason: shortness of breath or wheezing Last Admin: 07/27/24 08:01 Dose: 2.5 mg Documented By: DAMIAN Albuterol Sulfate (Albuterol Sulfate 90 Mcg 8 Gm Inhaler) 2 puff INHALE Q4H PRN PRN Reason: Shortness Of Breath Or Wheezing Amitriptyline HCl (Amitriptyline Hcl 10 Mg Tablet) 10 mg PO BEDTIME [facility] Last Admin: 07/27/24 21:09 Dose: 10 mg Documented By: CAMILO Artificial Tears (Artificial Tears 15 Ml Drops) 2 drop EYE-BOTH Q4H PRN PRN Reason: Dry Eyes Last Admin: 07/27/24 21:51 Dose: 2 drop Documented By: CAMILO Atenolol (Atenolol 50 Mg Tablet) 50 mg PO DAILY@1200 [facility]; Protocol Last Admin: 07/27/24 11:52 Dose: 50 mg Documented By: FILIPE Atorvastatin Calcium (Atorvastatin Calcium 40 Mg Tablet) 40 mg PO DAILY [facility] Last Admin: 07/28/24 07:49 Dose: 40 mg Documented By: ADDISON Benztropine Mesylate (Benztropine Mesylate 1 Mg Tablet) 1 mg PO BID@1200,2100 [facility] Last Admin: 07/27/24 21:08 Dose: 1 mg Documented By: CAMILO Budesonide (Budesonide 180 Mcg Aer.Pow.Ba) 1 puff INHALE RBID [facility] Last Admin: 07/27/24 21:16 Dose: 1 puff Documented By: ROSEY Calcium Carbonate (Calcium Carbonate 750 Mg Tab.Chew) 750 mg PO Q4H PRN PRN Reason: Heartburn Clotrimazole (Clotrimazole 1 % Cream 15 Gm Tube) 1 appl TOPICAL BID PRN PRN Reason: Inflammation Dextrose (Dextrose 50 % 25 Gm/50 Ml Syringe) 25 gm IVPUSH Q15M PRN; Protocol PRN Reason: per Hypoglycemia Standing Ord. Divalproex Sodium (Divalproex Sodium Er 250 Mg Tab.Er.24h) 250 mg PO DAILY@1200 [facility] Last Admin: 07/27/24 11:52 Dose: 250 mg Documented By: FILIPE Divalproex Sodium (Divalproex Sodium Er 500 Mg Tab.Er.24h) 500 mg PO DAILY@1200 [facility] Last Admin: 07/27/24 11:52 Dose: 500 mg Documented By: FILIPE Divalproex Sodium (Divalproex Sodium Er 500 Mg Tab.Er.24h) 1,000 mg PO BEDTIME [facility] Last Admin: 07/27/24 21:08 Dose: 1,000 mg Documented By: CAMILO Docusate Sodium (Docusate Sodium 100 Mg Capsule) 100 mg PO DAILY PRN PRN Reason: Constipation Enoxaparin Sodium (Enoxaparin Sodium 40 Mg/0.4 Ml Syringe) 40 mg SUBCUT Q12H [facility] Last Admin: 07/27/24 21:11 Dose: 40 mg Documented By: CAMILO Fluticasone Propionate (Fluticasone Propionate Nasal 16 Gm [place]) 1 spray NOSTRIL-B DAILY PRN PRN Reason: ALLERGIES Fluticasone/Umeclidinium/Vilanterol (Fluticasone/Umeclidinium/Vilanterol 100/62.5/25 Blst.W.Dev) 1 puff INHALE RDAILY [facility] Last Admin: 07/27/24 16:52 Dose: 1 puff Documented By: FILIPE Folic Acid (Folic Acid 1 Mg Tablet) 1 mg PO DAILY [facility] Last Admin: 07/28/24 07:49 Dose: 1 mg Documented By: ADDISON Furosemide (Furosemide 40 Mg Tablet) 40 mg PO DAILY [facility]; Protocol Last Admin: 07/28/24 07:49 Dose: 40 mg Documented By: ADDISON Glucose (Glucose Gel 15 Gm Gel..Gram.) 15 gm PO Q15M PRN; Protocol PRN Reason: per Hypoglycemia Standing Ord. Hydroxyzine HCl (Hydroxyzine Hcl 50 Mg Tablet) 50 mg PO TID PRN PRN Reason: Anxiety, Sleep, Agitation Last Admin: 07/25/24 20:43 Dose: 50 mg Documented By: ANMOL Insulin Glargine (Insulin Glargine,Hum.Rec.Anlog 100 Unit/Ml 10 Ml Vial) 45 unit SUBCUT BEDTIME [facility] Last Admin: 07/27/24 21:11 Dose: 45 unit Documented By: CAMILO Insulin Human Lispro (Insulin Lispro 100 Unit/Ml 3 Ml Vial) 0 unit SUBCUT QIDACHS [facility]; Protocol Last Admin: 07/28/24 07:44 Dose: 4 unit Documented By: ADDISON Lactic Acid (Ammonium Lactate 12 % Lotion 226 Gm Bottle) 1 appl TOPICAL DAILY PRN; Protocol PRN Reason: Dry Skin Levothyroxine Sodium (Levothyroxine Sodium 150 Mcg Tablet) 150 mcg PO DAILY@0600 [facility] Last Admin: 07/28/24 06:18 Dose: 150 mcg Documented By: CAMILO Lidocaine (Lidocaine 4 % Patch Adh..Patch) 2 patch TRANSDERMA DAILY [facility] Last Admin: 07/28/24 07:49 Dose: Not Given Documented By: ADDISON Non-Admin Reason: Patient Refused Lisinopril (Lisinopril 10 Mg Tablet) 10 mg PO BEDTIME [facility]; Protocol Last Admin: 07/27/24 21:09 Dose: 10 mg Documented By: CAMILO Loratadine (Loratadine 10 Mg Tablet) 10 mg PO DAILY PRN PRN Reason: allergies Lorazepam (Lorazepam 1 Mg Tablet) 1 mg PO DAILY PRN PRN Reason: panic attack Lurasidone HCl (Lurasidone Hcl 20 Mg Tablet) 60 mg PO DAILY@0800 [facility] Last Admin: 07/28/24 07:48 Dose: 60 mg Documented By: ADDISON Magnesium Hydroxide (Milk Of Magnesia 30 Ml Oral.Susp) 30 ml PO DAILY PRN PRN Reason: Constipation Melatonin (Melatonin 3 Mg Tablet) 9 mg PO BEDTIME PRN PRN Reason: insomnia Meropenem (Meropenem 1 Gm Vial) 1 gm IVPUSH Q8H [facility] Last Admin: 07/28/24 06:18 Dose: 1 gm Documented By: CAMILO Montelukast Sodium (Montelukast Sodium 10 Mg Tablet) 10 mg PO BEDTIME [facility] Last Admin: 07/27/24 21:08 Dose: 10 mg Documented By: CAMILO Morphine Sulfate (Morphine Sulfate 4 Mg/Ml Cartridge) 2 mg IVPUSH Q4H PRN; Protocol PRN Reason: Pain, Severe (Pain Scale 7-10) Last Admin: 07/27/24 21:49 Dose: 2 mg Documented By: CAMILO Multivitamins/Vitamin C (Multivitamin Tablet) 1 tab PO DAILY@1200 [facility] Last Admin: 07/27/24 11:52 Dose: 1 tab Documented By: FILIPE Nicotine Polacrilex (Nicotine Polacrilex 2 Mg Gum) 4 mg BUCCAL Q2H PRN PRN Reason: Nicotine Cravings Last Admin: 07/26/24 15:31 Dose: 4 mg Documented By: JARED Pt Own Medication ( Rimegepant [Nurtec Odt] 75 Mg Tablet, Disintegrating) 75 mg PO DAILY PRN PRN Reason: migraine Nystatin (Nystatin Powder 15 Gm Bottle) 1 appl TOPICAL BID [facility]; Protocol Last Admin: 07/28/24 07:50 Dose: 1 appl Documented By: ADDISON Ondansetron HCl (Ondansetron Hcl 4 Mg/2 Ml Vial) 4 mg IVPUSH Q8H PRN PRN Reason: Nausea and Vomiting Oxycodone HCl (Oxycodone Hcl Immed Release 5 Mg Tablet) 5 mg PO Q6H PRN PRN Reason: Pain, Moderate(Pain Scale 4-6) Last Admin: 07/28/24 07:50 Dose: 5 mg Documented By: ADDISON Prazosin HCl (Prazosin Hcl 1 Mg Capsule) 1 mg PO BEDTIME [facility]; Protocol Last Admin: 07/27/24 21:08 Dose: 1 mg Documented By: CAMILO Prazosin HCl (Prazosin Hcl 5 Mg Capsule) 5 mg PO BEDTIME [facility]; Protocol Last Admin: 07/27/24 21:08 Dose: 5 mg Documented By: CAMILO Quetiapine Fumarate (Quetiapine Fumarate 100 Mg Tablet) 100 mg PO DAILY@1200 PRN PRN Reason: Anxiety Quetiapine Fumarate (Quetiapine Fumarate 300 Mg Tablet) 300 mg PO BEDTIME [facility] Last Admin: 07/27/24 21:08 Dose: 300 mg Documented By: CAMILO Scopolamine (Scopolamine 1.5 Mg Patch.Td.3) 1.5 mg TRANSDERMA Q3D [facility] Last Admin: 07/25/24 10:50 Dose: 1.5 mg Documented By: AKILA Sodium Chloride (0.9 % Sodium Chloride Flush 3 Ml Syringe) 3 ml IVFLUSH QSHIFT [facility] Last Admin: 07/28/24 07:50 Dose: 3 ml Documented By: ADDISON Vitamin D (Cholecalciferol (Vitamin D3) 25 Mcg Tablet) 50 mcg PO DAILY [facility] Last Admin: 07/28/24 07:48 Dose: 50 mcg Documented By: ADDISON Labs 07/27/24 06:49 07/27/24 06:49 Labs: Laboratory Results - last 24 hr 07/27/24 07/27/24 07/27/24 11:59 16:07 20:10 POC Glucose 178 H 197 H 234 H 07/28/24 07:25 POC Glucose 230 H Microbiology Microbiology Results: Microbiology 07/24/24 Unknown Urine Culture - Final Urine clean catch - Clean Catch Midstream Assessment and Plan (1) UTI (urinary tract infection): Status: Acute Plan patient is a 54-year-old female with a past medical history significant for morbid obesity, HLD, chronic respiratory failure with hypoxia and hypercapnia, obesity hypoventilation and pulmonary edema on 7 L NC and CPAP at night, mood disorder, PTSD, history NSTEMI, HTN, insulin-dependent diabetes, GERD and hepatitis, who presented to the ED due to ongoing dysuria after outpatient treatment for urinary tract infection with Macrobid. UTI, history of recent resistant e coli, awaiting on culture, continue meropenem started 07/25. ID recommends 10 of therapy ending 08/03, will get midline tomorrow electrolyte abnormality, chronic at baseline --stable. lactic acidosis Likely do to liver disease type 2 diabetes continue lantus, ssi and diabetic diet Psych Continue home medications HypOthyroidism with elevated TSH, restarted on levothyroxine at 150 mcg per endo recommendation morbid obesity BMI 79.7 patient on GLP 1 Mounjaro at home. weight loss encouraged Code: Full VTE: prophylaxis Lovenox patient with multidrug resistance UTI requiring admission for at least 2 midnights stay for IV meropenem, ID consultation and monitoring. Quality Stroke Does the patient have a stroke diagnosis?: No VTE Prior VTE?: No VTE Risk Level:: Medical - moderate - high VTE Device Contraindication: Treatment Not Indicated VTE Drug Contraindication: N/A - Med Ordered
[2024-07-28] MEDS: Scopolamine 1.5 MG PATCH.TD.3 TRANSDERMA (09:32)
[2024-07-28] MEDS: Enoxaparin Sodium 40 MG/0.4 ML SYRINGE SUBCUT ×2 (09:32→20:08)
[2024-07-28] MEDS: Budesonide 180 MCG AER.POW.BA 1 PUFF INHALE ×2 (09:57→19:15)
[2024-07-28] MEDS: LORazepam 1 MG TABLET PO (09:58)
[2024-07-28] MEDS: Fluticasone/Umeclidinium/Vilanterol 100/62.5/25 BLST.W.DEV 1 PUFF INHALE (09:58)
[2024-07-28 11:46] LABS: Glucose, Whole Blood 212 mg/dL (60-115)
[2024-07-28] MEDS: atenoloL 50 MG TABLET PO (11:58)
[2024-07-28] MEDS: Benztropine Mesylate 1 MG TABLET PO ×2 (11:58→20:09)
[2024-07-28] MEDS: Divalproex Sodium ER 250 MG TAB.ER.24H PO (11:58)
[2024-07-28] MEDS: Multivitamin TABLET 1 TAB PO (11:58)
[2024-07-28] MEDS: Divalproex Sodium ER 500 MG TAB.ER.24H PO (11:58)
[2024-07-28 15:38] VITALS: BP 124/71; PULSE 83; RESP 18; TEMP 36.8; O2SAT 96
[2024-07-28 16:30] LABS: Glucose, Whole Blood 248 mg/dL (60-115)
[2024-07-28] MEDS: Artificial Tears 15 ML DROPS 2 DROP EYE-BOTH (16:46)
[2024-07-28] MEDS: Nicotine Polacrilex 2 MG GUM 4 MG BUCCAL ×2 (18:17→20:08)
--- NOTE | 2024-07-28 18:49 | P.CDIM_ITS ---
PROVIDER RESPONSE TEXT: To clarify, the appropriate diagnosis supported by the clinical indicators: Acute QUERY TEXT: PHYSICIAN'S DOCUMENTATION REQUEST Date of Query: 07/26/2024 12:39 PM EDT Patient Name: Elle Lopez Admit Date: 07/25/2024 Dear Chaim Bauer MD, A review of the medical record indicates additional documentation may be needed. Please review below and update the documentation accordingly. Clinical Indicators: Progress note 07/26/24 - Lactic acidosis Likely due to liver disease. LA 2.8 H Clarify which of the following accurately represents the acuity of the Lactic acidosis: Possible options might include: Acute Chronic Other (explain) Clinically unable to determine (explain) Thank you, Teresa Benitez, CCS, CDIS Use of terms such as suspected, likely, concern for, or probable (associated with a specific diagnosi s that is being evaluated, monitored, or treated as if it exists) are acceptable and can be coded in the inpatient se tting, when documented at the time of discharge. Please use your independent medical judgment in providing your response. THIS QUERY IS PART OF THE PERMANENT MEDICAL RECORD
[2024-07-28 19:18] VITALS: PULSE 83; RESP 18; O2SAT 92
[2024-07-28 19:53] LABS: Glucose, Whole Blood 253 mg/dL (60-115)
[2024-07-28 19:56] VITALS: BP 111/59; PULSE 81; RESP 18; TEMP 36.3; O2SAT 95
[2024-07-28] MEDS: Insulin Glargine,Hum.rec.anlog 100 UNIT/ML 10 ML VIAL 50 UNIT SUBCUT (20:07)
[2024-07-28] MEDS: Prazosin HCL 5 MG CAPSULE PO (20:09)
[2024-07-28] MEDS: QUEtiapine Fumarate 300 MG TABLET PO (20:09)
[2024-07-28] MEDS: Montelukast Sodium 10 MG TABLET PO (20:09)
[2024-07-28] MEDS: Prazosin HCL 1 MG CAPSULE PO (20:09)
[2024-07-28] MEDS: lisinopriL 10 MG TABLET PO (20:09)
[2024-07-28] MEDS: Divalproex Sodium ER 500 MG TAB.ER.24H 1000 MG PO (20:09)
[2024-07-28] MEDS: Amitriptyline HCl 10 MG TABLET PO (20:10)
[2024-07-28] MEDS: Acetaminophen 325 MG TABLET 975 MG PO (20:26)
[2024-07-29 03:35] VITALS: BP 118/62; PULSE 75; RESP 20; TEMP 36.2; O2SAT 94
[2024-07-29 05:40] LABS: Hematocrit 28.8 % (37.0-47.0); Hemoglobin 9.6 g/dl (12.0-16.0); Mean Corpuscular HGB Conc 33.3 g/dl (31.0-35.0); Mean Corpuscular Hemoglobin 27.5 pg (27.0-33.0); Mean Corpuscular Volume 82.5 fL (80.0-98.0); Mean Platelet Volume 10.3 fL (9.4-12.3); Platelet Count 299 X10*3/uL (160-400); Red Blood Count 3.49 X10*6/uL (4.20-5.50); Red Cell Distribution Width 16.3 % (11.0-16.0); White Blood Count 5.4 X10*3/uL (4.8-10.8)
[2024-07-29 05:58] LABS: Anion Gap 16 (12-20); Blood Urea Nitrogen 14 mg/dL (9-16); Calcium 9.2 mg/dL (8.4-10.2); Carbon Dioxide 33 mmol/L (22-29); Chloride 85 mmol/L (96-108); Creatinine Clr Calc Pharmacy 177.7; Estimated Glomerular Filt Rate > 60; Glucose Random 220 mg/dL (60-115); Potassium 4.3 mmol/L (3.3-5.1); Sodium 130 mmol/L (135-145)
[2024-07-29] MEDS: Levothyroxine Sodium 150 MCG TABLET PO (06:13)
[2024-07-29] MEDS: Meropenem 1 GM VIAL IVPUSH (06:14)
[2024-07-29] MEDS: Fluticasone/Umeclidinium/Vilanterol 100/62.5/25 BLST.W.DEV 1 PUFF INHALE (07:59)
[2024-07-29 08:00] VITALS: BP 115/58; PULSE 82; RESP 18; TEMP 36; O2SAT 91
[2024-07-29 08:03] VITALS: PULSE 76; RESP 18; O2SAT 94
[2024-07-29] MEDS: Budesonide 180 MCG AER.POW.BA 1 PUFF INHALE ×2 (08:12→08:14)
[2024-07-29] MEDS: Insulin Lispro 100 UNIT/ML 3 ML VIAL SUBCUT ×3 (08:25→18:01)
[2024-07-29] MEDS: Enoxaparin Sodium 40 MG/0.4 ML SYRINGE SUBCUT (08:25)
[2024-07-29] MEDS: Nicotine Polacrilex 2 MG GUM 4 MG BUCCAL (08:26)
[2024-07-29] MEDS: Lidocaine 4 % Patch ADH..PATCH 2 PATCH TRANSDERMA (08:26)
[2024-07-29] MEDS: Lurasidone HCl 20 MG TABLET 60 MG PO (08:27)
[2024-07-29] MEDS: oxyCODONE HCl Immed Release 5 MG TABLET PO ×2 (08:27→15:49)
[2024-07-29] MEDS: Furosemide 40 MG TABLET PO (08:27)
[2024-07-29] MEDS: Cholecalciferol (Vitamin D3) 25 MCG TABLET 50 MCG PO (08:28)
[2024-07-29] MEDS: Atorvastatin Calcium 40 MG TABLET PO (08:28)
[2024-07-29] MEDS: Folic Acid 1 MG TABLET PO (08:28)
[2024-07-29] MEDS: Nystatin Powder 15 GM BOTTLE 1 APPL TOPICAL (08:29)
[2024-07-29] MEDS: Artificial Tears 15 ML DROPS 2 DROP EYE-BOTH (08:29)
[2024-07-29] MEDS: 0.9 % Sodium Chloride Flush 3 ML SYRINGE IVFLUSH ×2 (08:33→17:51)
[2024-07-29 08:41] LABS: Glucose, Whole Blood 219 mg/dL (60-115)
--- NOTE | 2024-07-29 09:49 | HO.PM.IMPN ---
Subjective Subjective Date of Service: 07/29/24 Interval History: Follow up for treatment of UTI. Patient is being treated with IVP Meropenum. No new issues, cultures are negative. Review of Systems Denies dysuria, hematuria, fever, chills, dizziness malaise Physical Exam Vital Signs: Vital Signs: Last Vital Signs Temp 96.8 F 07/29/24 08:00 Pulse 76 07/29/24 08:03 Resp 18 07/29/24 08:03 BP 115/58 L 07/29/24 08:00 Pulse Ox 91 L 07/29/24 08:00 O2 Del Method Nasal Cannula 07/29/24 08:00 O2 Flow Rate 6 07/29/24 08:00 Oxygen Flow Rate 6 07/24/24 15:59 BMI result Body Mass Index 80.8 Appearing in no acute distress head is normocephalic atraumatic eyes pupils are PERRLA sclera is anicteric mouth throat mucous membranes are intact and moist neck is supple no lymphadenopathy, no JVD noted lung sounds are clear to auscultation heart regular rate rhythm, clear S1, S2 positive bowel sounds, abdomen is soft, nontender neuro patient is alert x3, no focal deficits Objective Data Active Medications Acetaminophen (Acetaminophen 325 Mg Tablet) 975 mg PO Q6H PRN PRN Reason: Pain, Mild 1-3,fever,headache Last Admin: 07/28/24 20:26 Dose: 975 mg Documented By: HAZEL Albuterol Sulfate (Albuterol Sulfate (0.083%) 2.5 Mg/3 Ml Vial.Neb) 2.5 mg INHALE Q6H PRN PRN Reason: shortness of breath or wheezing Last Admin: 07/27/24 08:01 Dose: 2.5 mg Documented By: DAMIAN Albuterol Sulfate (Albuterol Sulfate 90 Mcg 8 Gm Inhaler) 2 puff INHALE Q4H PRN PRN Reason: Shortness Of Breath Or Wheezing Amitriptyline HCl (Amitriptyline Hcl 10 Mg Tablet) 10 mg PO BEDTIME SHARI Last Admin: 07/28/24 20:10 Dose: 10 mg Documented By: HAZEL Artificial Tears (Artificial Tears 15 Ml Drops) 2 drop EYE-BOTH Q4H PRN PRN Reason: Dry Eyes Last Admin: 07/29/24 08:29 Dose: 2 drop Documented By: ADDISON Atenolol (Atenolol 50 Mg Tablet) 50 mg PO DAILY@1200 [facility]; Protocol Last Admin: 07/28/24 11:58 Dose: 50 mg Documented By: ADDISON Atorvastatin Calcium (Atorvastatin Calcium 40 Mg Tablet) 40 mg PO DAILY [facility] Last Admin: 07/29/24 08:28 Dose: 40 mg Documented By: ADDISON Benztropine Mesylate (Benztropine Mesylate 1 Mg Tablet) 1 mg PO BID@1200,2100 [facility] Last Admin: 07/28/24 20:09 Dose: 1 mg Documented By: HAZEL Budesonide (Budesonide 180 Mcg Aer.Pow.Ba) 1 puff INHALE RBID [facility] Last Admin: 07/29/24 08:12 Dose: 1 puff Documented By: HARISH Calcium Carbonate (Calcium Carbonate 750 Mg Tab.Chew) 750 mg PO Q4H PRN PRN Reason: Heartburn Clotrimazole (Clotrimazole 1 % Cream 15 Gm Tube) 1 appl TOPICAL BID PRN PRN Reason: Inflammation Dextrose (Dextrose 50 % 25 Gm/50 Ml Syringe) 25 gm IVPUSH Q15M PRN; Protocol PRN Reason: per Hypoglycemia Standing Ord. Divalproex Sodium (Divalproex Sodium Er 250 Mg Tab.Er.24h) 250 mg PO DAILY@1200 [facility] Last Admin: 07/28/24 11:58 Dose: 250 mg Documented By: ADDISON Divalproex Sodium (Divalproex Sodium Er 500 Mg Tab.Er.24h) 500 mg PO DAILY@1200 [facility] Last Admin: 07/28/24 11:58 Dose: 500 mg Documented By: ADDISON Divalproex Sodium (Divalproex Sodium Er 500 Mg Tab.Er.24h) 1,000 mg PO BEDTIME [facility] Last Admin: 07/28/24 20:09 Dose: 1,000 mg Documented By: HAZEL Docusate Sodium (Docusate Sodium 100 Mg Capsule) 100 mg PO DAILY PRN PRN Reason: Constipation Enoxaparin Sodium (Enoxaparin Sodium 40 Mg/0.4 Ml Syringe) 40 mg SUBCUT Q12H [facility] Last Admin: 07/29/24 08:25 Dose: 40 mg Documented By: ADDISON Fluticasone Propionate (Fluticasone Propionate Nasal 16 Gm [place]) 1 spray NOSTRIL-B DAILY PRN PRN Reason: ALLERGIES Fluticasone/Umeclidinium/Vilanterol (Fluticasone/Umeclidinium/Vilanterol 100/62.5/ Blst.W.Dev) 1 puff INHALE RDAILY [facility] Last Admin: 07/29/24 07:59 Dose: 1 puff Documented By: HARISH Folic Acid (Folic Acid 1 Mg Tablet) 1 mg PO DAILY [facility] Last Admin: 07/29/24 08:28 Dose: 1 mg Documented By: ADDISON Furosemide (Furosemide 40 Mg Tablet) 40 mg PO DAILY [facility]; Protocol Last Admin: 07/29/24 08:27 Dose: 40 mg Documented By: ADDISON Glucose (Glucose Gel 15 Gm Gel..Gram.) 15 gm PO Q15M PRN; Protocol PRN Reason: per Hypoglycemia Standing Ord. Hydroxyzine HCl (Hydroxyzine Hcl 50 Mg Tablet) 50 mg PO TID PRN PRN Reason: Anxiety, Sleep, Agitation Last Admin: 07/25/24 20:43 Dose: 50 mg Documented By: ANMOL Insulin Glargine (Insulin Glargine,Hum.Rec.Anlog 100 Unit/Ml 10 Ml Vial) 50 unit SUBCUT BEDTIME [facility] Last Admin: 07/28/24 20:07 Dose: 50 unit Documented By: HAZEL Insulin Human Lispro (Insulin Lispro 100 Unit/Ml 3 Ml Vial) 0 unit SUBCUT QIDACHS [facility]; Protocol Last Admin: 07/29/24 08:25 Dose: 4 unit Documented By: ADDISON Lactic Acid (Ammonium Lactate 12 % Lotion 226 Gm Bottle) 1 appl TOPICAL DAILY PRN; Protocol PRN Reason: Dry Skin Levothyroxine Sodium (Levothyroxine Sodium 150 Mcg Tablet) 150 mcg PO DAILY@0600 [facility] Last Admin: 07/29/24 06:13 Dose: 150 mcg Documented By: HAZEL Lidocaine (Lidocaine 4 % Patch Adh..Patch) 2 patch TRANSDERMA DAILY [facility] Last Admin: 07/29/24 08:26 Dose: 2 patch Documented By: ADDISON Lisinopril (Lisinopril 10 Mg Tablet) 10 mg PO BEDTIME [facility]AR[facility]; Protocol Last Admin: 07/28/24 20:09 Dose: 10 mg Documented By: HAZEL Loratadine (Loratadine 10 Mg Tablet) 10 mg PO DAILY PRN PRN Reason: allergies Lorazepam (Lorazepam 1 Mg Tablet) 1 mg PO DAILY PRN PRN Reason: panic attack Last Admin: 07/28/24 09:58 Dose: 1 mg Documented By: ADDISON Lurasidone HCl (Lurasidone Hcl 20 Mg Tablet) 60 mg PO DAILY@0800 [facility] Last Admin: 07/29/24 08:27 Dose: 60 mg Documented By: ADDISON Magnesium Hydroxide (Milk Of Magnesia 30 Ml Oral.Susp) 30 ml PO DAILY PRN PRN Reason: Constipation Melatonin (Melatonin 3 Mg Tablet) 9 mg PO BEDTIME PRN PRN Reason: insomnia Meropenem (Meropenem 1 Gm Vial) 1 gm IVPUSH Q8H [facility] Last Admin: 07/29/24 06:14 Dose: 1 gm Documented By: HAZEL Montelukast Sodium (Montelukast Sodium 10 Mg Tablet) 10 mg PO BEDTIME SHARI Last Admin: 07/28/24 20:09 Dose: 10 mg Documented By: HAZEL Morphine Sulfate (Morphine Sulfate 4 Mg/Ml Cartridge) 2 mg IVPUSH Q4H PRN; Protocol PRN Reason: Pain, Severe (Pain Scale 7-10) Last Admin: 07/27/24 21:49 Dose: 2 mg Documented By: CAMILO Multivitamins/Vitamin C (Multivitamin Tablet) 1 tab PO DAILY@1200 [facility] Last Admin: 07/28/24 11:58 Dose: 1 tab Documented By: ADDISON Nicotine Polacrilex (Nicotine Polacrilex 2 Mg Gum) 4 mg BUCCAL Q2H PRN PRN Reason: Nicotine Cravings Last Admin: 07/29/24 08:26 Dose: 4 mg Documented By: ADDISON Pt Own Medication ( Rimegepant [Nurtec Odt] 75 Mg Tablet, Disintegrating) 75 mg PO DAILY PRN PRN Reason: migraine Nystatin (Nystatin Powder 15 Gm Bottle) 1 appl TOPICAL BID [facility]; Protocol Last Admin: 07/29/24 08:29 Dose: 1 appl Documented By: ADDISON Ondansetron HCl (Ondansetron Hcl 4 Mg/2 Ml Vial) 4 mg IVPUSH Q8H PRN PRN Reason: Nausea and Vomiting Oxycodone HCl (Oxycodone Hcl Immed Release 5 Mg Tablet) 5 mg PO Q6H PRN PRN Reason: Pain, Moderate(Pain Scale 4-6) Last Admin: 07/29/24 08:27 Dose: 5 mg Documented By: ADDISON Prazosin HCl (Prazosin Hcl 1 Mg Capsule) 1 mg PO BEDTIME [facility]; Protocol Last Admin: 07/28/24 20:09 Dose: 1 mg Documented By: HAZEL Prazosin HCl (Prazosin Hcl 5 Mg Capsule) 5 mg PO BEDTIME [facility]; Protocol Last Admin: 07/28/24 20:09 Dose: 5 mg Documented By: HAZEL Quetiapine Fumarate (Quetiapine Fumarate 100 Mg Tablet) 100 mg PO DAILY@1200 PRN PRN Reason: Anxiety Quetiapine Fumarate (Quetiapine Fumarate 300 Mg Tablet) 300 mg PO BEDTIME SHARI Last Admin: 07/28/24 20:09 Dose: 300 mg Documented By: HAZEL Scopolamine (Scopolamine 1.5 Mg Patch.Td.3) 1.5 mg TRANSDERMA Q3D [facility] Last Admin: 07/28/24 09:32 Dose: 1.5 mg Documented By: ADDISON Sodium Chloride (0.9 % Sodium Chloride Flush 3 Ml Syringe) 3 ml IVFLUSH QSHIFT [facility] Last Admin: 07/29/24 08:33 Dose: 3 ml Documented By: ADDISON Vitamin D (Cholecalciferol (Vitamin D3) 25 Mcg Tablet) 50 mcg PO DAILY [facility] Last Admin: 07/29/24 08:28 Dose: 50 mcg Documented By: ADDISON Labs 07/29/24 05:29 07/29/24 05:29 Labs: Laboratory Results - last 24 hr 07/28/24 07/28/24 07/28/24 11:38 16:16 19:29 MCV MCH MCHC RDW Plt Count MPV Absolute Nucleated RBC Nucleated RBC % (auto) Anion Gap Estim Creat Clear Calc Estimated GFR POC Glucose 212 H 248 H 253 H Random Glucose Calcium 07/29/24 07/29/24 05:29 07:43 MCV 82.5 MCH 27.5 MCHC 33.3 RDW 16.3 H Plt Count 299 MPV 10.3 Absolute Nucleated RBC 0.000 Nucleated RBC % (auto) 0.0 Anion Gap 16 Estim Creat Clear Calc 177.7 Estimated GFR > 60 POC Glucose 219 H Random Glucose 220 H Calcium 9.2 Assessment and Plan (1) UTI (urinary tract infection): Status: Acute Plan patient is a 54-year-old female with a past medical history significant for morbid obesity, HLD, chronic respiratory failure with hypoxia and hypercapnia, obesity hypoventilation and pulmonary edema on 7 L NC and CPAP at night, mood disorder, PTSD, history NSTEMI, HTN, insulin-dependent diabetes, GERD and hepatitis, who presented to the ED due to ongoing dysuria after outpatient treatment for urinary tract infection with Macrobid. UTI, history of recent resistant e coli, awaiting on culture, continue meropenem started 07/25. ID recommends 10 of therapy ending 08/03, will get midline today electrolyte abnormality, chronic at baseline --stable. lactic acidosis Likely do to liver disease type 2 diabetes continue lantus, ssi and diabetic diet Psych Continue home medications left ankle injury---has air cast HypOthyroidism with elevated TSH, restarted on levothyroxine at 150 mcg per endo recommendation morbid obesity BMI 79.7 patient on GLP 1 Mounjaro at home. weight loss encouraged Code: Full VTE: prophylaxis Lovenox patient with multidrug resistance UTI requiring admission for at least 2 midnights stay for IV meropenem, ID consultation and monitoring. Quality Stroke Does the patient have a stroke diagnosis?: No VTE Prior VTE?: No VTE Risk Level:: Medical - moderate - high VTE Device Contraindication: Treatment Not Indicated VTE Drug Contraindication: N/A - Med Ordered
[2024-07-29] MEDS: Divalproex Sodium ER 250 MG TAB.ER.24H PO (11:15)
[2024-07-29] MEDS: Multivitamin TABLET 1 TAB PO (11:15)
[2024-07-29] MEDS: Benztropine Mesylate 1 MG TABLET PO (11:15)
[2024-07-29] MEDS: Divalproex Sodium ER 500 MG TAB.ER.24H PO (11:15)
[2024-07-29] MEDS: atenoloL 50 MG TABLET PO (11:15)
[2024-07-29] MEDS: Fluconazole 150 MG TABLET PO (11:16)
[2024-07-29 11:48] LABS: Glucose, Whole Blood 237 mg/dL (60-115)
--- NOTE | 2024-07-29 12:38 | MHC.CM.PN ---
Per MD rounds patient medically cleared for dc home w/ resumption of [facility] [place] [facility] [place]. [facility]NA updated of [place]. Daughter will provide transport.
--- NOTE | 2024-07-29 13:04 | PC.NURSE ---
Addendum entered by Amada Pak RN 07/29/24 13:29: MD requesting Meropenem to not be given and first dose of home abx given after midline placement. Original Note: MD requesting IV abx due at 1300 to be held until after placement of Midline today. Patient continues to wait for placement by IR.
--- NOTE | 2024-07-29 13:17 | MHC.CM.PN ---
Addendum entered by Oralia Bautista RN 07/29/24 14:33: Patient scheduled for midline placement ~1630. BLS transport booked for 1830. , RN, patient and aware. Original Note: Patient awaiting midline placement. Will dc w/ [facility] for IV ertapenem. [facility] will also provide SN, as patient's VNA, [facility] only provides med management for psych meds. will assist and completed teach w/ [facility] RN. Patient will need one dose of ertapenem prior to dc. and RN aware.
[2024-07-29 15:18] VITALS: BP 108/57; PULSE 78; RESP 22; TEMP 36.1; O2SAT 95
--- NOTE | 2024-07-29 15:51 | PM.DS ---
DS: Providers Provider Date of Service: 07/29/24 Date of admission: 07/24/24 20:04 Date of discharge: 07/29/24 Primary care physician: LOUIE Finley Consults: 07/24/24 19:56 Consult to Infectious Diseases Routine Consulting Provider: [facility] [place] [facility] Reason for consultation: urine culture is showing only sensitivity to ertapenem Has provider been notified: Yes DS: Diagnosis Discharge Diagnosis (1) UTI (urinary tract infection): Status: Acute DS: Summary Hospital Course Hospital Course: patient is a 54-year-old female with a past medical history significant for morbid obesity, HLD, chronic respiratory failure with hypoxia and hypercapnia, obesity hypoventilation and pulmonary edema on 7 L NC and CPAP at night, mood disorder, PTSD, history NSTEMI, HTN, insulin-dependent diabetes, GERD and hepatitis, who presented to the ED due to ongoing dysuria after outpatient treatment for urinary tract infection with Macrobid. She was recently treated for ESBL E.coli and presented with symptoms of UTI, including dysuria and increased frequency. She was started on meropenem given background history of resistance. Urine culture have been negative this time. Given recent UTI withr esitance and symptomatic. ID recommends 10 days of antibiotics. Meropenem will be changed to Ertapenem 1 gram daily until August 03, mid line put in for this UTI, history of recent resistant e coli, awaiting on culture, continue meropenem started 07/25. ID recommends 10 of therapy ending 08/03 via midline at home, decline reha electrolyte abnormality, chronic at baseline --stable. lactic acidosis Likely do to liver disease type 2 diabetes continue lantus, ssi and diabetic diet Psych Continue home medications left ankle injury---has air cast HypOthyroidism with elevated TSH, restarted on levothyroxine at 150 mcg per endo recommendation morbid obesity BMI 79.7 patient on GLP 1 Mounjaro at home. weight loss encouraged Time Attestation Discharge Coordination Time (in mins): 45 Quality: Safe Use of Opioids Does Pt have an Active Cancer Diagnosis on the Problem List?: No Quality: Stroke Does the patient have a stroke diagnosis?: No Physical Exam Vital Signs: Vital Signs: Last Vital Signs Temp 97 F 07/29/24 15:18 Pulse 78 07/29/24 15:18 Resp 22 H 07/29/24 15:18 BP 108/57 L 07/29/24 15:18 Pulse Ox 95 07/29/24 15:18 O2 Del Method Nasal Cannula 07/29/24 15:18 O2 Flow Rate 6 07/29/24 15:18 Oxygen Flow Rate 6 07/24/24 15:59 BMI result Body Mass Index 80.8 Appearing in no acute distress head is normocephalic atraumatic eyes pupils are PERRLA sclera is anicteric mouth throat mucous membranes are intact and moist neck is supple no lymphadenopathy, no JVD noted lung sounds are clear to auscultation heart regular rate rhythm, clear S1, S2 positive bowel sounds, abdomen is soft, nontender neuro patient is alert x3, no focal deficits DS: Data Data Completed and Pending Completed studies during hospitalization [Text1]: Procedures Assistance with Respiratory Ventilation, Less than 24 Consecutive Hours, Continuous Positive Airway Pressure (12/22/23) Excision of Left Lobe Liver, Percutaneous Approach, Diagnostic (09/08/22) Labs on day of discharge: Laboratory Results - last 24 hr 07/28/24 07/28/24 07/29/24 16:16 19:29 05:29 WBC 5.4 RBC 3.49 L Hgb 9.6 L Hct 28.8 L MCV 82.5 MCH 27.5 MCHC 33.3 RDW 16.3 H Plt Count 299 MPV 10.3 Absolute Nucleated RBC 0.000 Nucleated RBC % (auto) 0.0 Sodium 130 L Potassium 4.3 Chloride 85 L Carbon Dioxide 33 H Anion Gap 16 BUN 14 Creatinine 0.66 Estim Creat Clear Calc 177.7 Estimated GFR > 60 POC Glucose 248 H 253 H Random Glucose 220 H Calcium 9.2 07/29/24 07/29/24 07:43 11:44 WBC RBC Hgb Hct MCV MCH MCHC RDW Plt Count MPV Absolute Nucleated RBC Nucleated RBC % (auto) Sodium Potassium Chloride Carbon Dioxide Anion Gap BUN Creatinine Estim Creat Clear Calc Estimated GFR POC Glucose 219 H 237 H Random Glucose Calcium Preliminary micro results at discharge 07/24/24 21:01 Blood Culture - Preliminary Blood - Venous No growth after 48 hours. 07/24/24 19:15 Blood Culture - Preliminary Blood - Venous No growth after 48 hours. Discharge Plan Discharge Anticipated Discharge Date/Time: 07/29/24 15:45 Patient Disposition: Home, Self-Care Discharge Diagnosis: Resistant UTI Referrals: [facility] [Outside] - 1 Day (resume services) Toyin Pollard FNP [Primary Care Provider] - 1 Week Discharge Medications: New ertapenem 1 gram recon soln 1 g IM DAILY Qty: 5 0RF Rx Instructions: nnext dose 07/30 Continued (DME) Ankle Brace Misc See Rx Instructions .ROUTE .MEDSUPPLY Qty: 1 0RF Rx Instructions: AIRSELECT, STANDARD, MEDIUM (DME) pen needle, diabetic [BD Ultra-Fine Mary Pen Needle] 32 gauge x needle See Rx Instructions .ROUTE .MEDSUPPLY Qty: 125 6RF Rx Instructions: As directed four times a day (DME) FreeStyle Todd 2 Sensor Kit See Rx Instructions .ROUTE .COMPLEX Qty: 2 5RF Dose Instruction: USE DIRECTED CHANGE EVERY 14 DAYS Rx Instructions: USE DIRECTED CHANGE EVERY 14 DAYS (DME) FreeStyle Lite Strips Strip See Rx Instructions .ROUTE .MEDSUPPLY Qty: 100 1RF Rx Instructions: As directed qid prn sensor failure, confirm glucose Please dispense as Freestyle PRecision Ronny albuterol sulfate [Ventolin HFA] 90 mcg/actuation HFA aerosol inhaler 2 puff INHALATION Q4H PRN (Reason: Shortness Of Breath Or Wheezing) 30 Days Qty: 8.5 1RF Breztri Aerosphere 160-9-4.8 mcg/actuation HFA aerosol inhaler 2 inh inhalation BID 30 Days Qty: 10.7 2RF albuterol sulfate 2.5 mg /3 mL (0.083 %) solution for nebulization 2.5 mg inhalation Q6H PRN (Reason: shortness of breath or wheezing) 30 Days Qty: 180 11RF (DME) FreeStyle Todd 2 Sensor Kit See Rx Instructions .ROUTE .MEDSUPPLY Qty: 2 11RF Rx Instructions: As directed every 15 days multivitamin Tablet 1 tab PO DAILY@1200 amitriptyline 10 mg Tablet 10 mg PO BEDTIME lisinopril 10 mg Tablet 10 mg PO BEDTIME benztropine 1 mg Tablet 1 mg PO BID@1200,2100 montelukast 10 mg Tablet 10 mg PO BEDTIME furosemide 40 mg tablet 40 mg PO DAILY prazosin 5 mg capsule 5 mg PO BEDTIME folic acid 1 mg tablet 1 mg PO DAILY atenolol 50 mg tablet 50 mg PO DAILY@1200 melatonin 5 mg tablet 10 mg PO BEDTIME PRN (Reason: insomnia) lurasidone [Latuda] 60 mg tablet 60 mg PO DAILY@0800 Rx Instructions: WITH 350 CALORIE MEAL docusate sodium 100 mg Capsule 100 mg PO DAILY PRN (Reason: Constipation) alendronate 70 mg tablet 1 tab PO MO@0600 hydroxyzine HCl 50 mg tablet 1 - 2 tab PO TID PRN (Reason: Anxiety, Sleep, Agitation) fluticasone propionate 50 mcg/actuation spray,suspension 1 spray intranasal DAILY PRN (Reason: ALLERGIES) diclofenac sodium 1 % gel 2 g topical BID PRN (Reason: Pain) Protocol: Apply to: Apply to: KNEE, ANKLE, BACK lidocaine 5 % Adhesive Patch,Medicated 2 patch TOPICAL DAILY Protocol: Apply to: Apply to: KNEES AND BACK Rx Instructions: Apply to knees and shoulders. acetaminophen 500 mg Tablet 500 mg PO Q6H PRN (Reason: Pain) quetiapine 100 mg Tablet 100 mg PO DAILY@1200 PRN (Reason: Anxiety) (DME) hospital bed Kit See Rx Instructions .Route Qty: 1 0RF Rx Instructions: Bariatric bed prazosin 1 mg capsule 1 mg PO BEDTIME Rx Instructions: tdd 6mg cetirizine 10 mg tablet 10 mg PO DAILY PRN (Reason: allergies) Nurtec ODT 75 mg tablet,disintegrating 75 mg PO NEEDED PRN (Reason: migraine) Rx Instructions: no more than 1 tablet per 24 hours nystatin 100,000 unit/gram powder 1 appl topical BID ammonium lactate 12 % lotion 1 appl topical DAILY PRN (Reason: Dry Skin) Rx Instructions: 1 APPLICATION = 2 GRAMS lorazepam 1 mg tablet 1 mg PO DAILY PRN (Reason: panic attack) naproxen 500 mg tablet 500 mg PO BID PRN (Reason: Pain) tramadol 50 mg tablet 50 mg PO BID PRN (Reason: Pain) Qty: 60 0RF ketorolac 10 mg tablet 10 mg PO Q6H PRN (Reason: pain) Qty: 20 0RF Rx Instructions: maximum total duration of 5 days from all oral, intranasal, or parenteral formulations, patient had an intramuscular dose of Toradol here in the emergency department. nicotine (polacrilex) 4 mg gum 4 mg PO Q2H PRN (Reason: Nicotine Cravings) divalproex 500 mg tablet extended release 24 hr 500 mg PO DAILY@1200 divalproex 500 mg tablet extended release 24 hr 1,000 mg PO BEDTIME scopolamine base 1 mg over 3 days patch 3 day 1 patch topical Q3D insulin lispro [Humalog KwikPen Insulin] 100 unit/mL insulin pen 14 - 24 unit subcut TIDWMEAL Rx Instructions: 14-24 units subcutaneously 3 times per day with meals; divalproex 250 mg tablet extended release 24 hr 250 mg PO DAILY@1200 Mounjaro 7.5 mg/0.5 mL pen injector 7.5 mg subcut MO quetiapine 300 mg Tablet 300 mg PO BEDTIME atorvastatin 40 mg tablet 40 mg PO DAILY (DME) nebulizers Misc See Rx Instructions .Route Rx Instructions: As directed (DME) Oxygen Home Use Kit See Rx Instructions .Route Rx Instructions: As directed cholecalciferol (vitamin D3) 50 mcg (2,000 unit) tablet 50 mcg PO DAILY insulin glargine U-300 conc [Toujeo Max U-300 SoloStar] 300 unit/mL (3 mL) insulin pen 64 unit subcut BEDTIME 90 Days Qty: 21 1RF econazole nitrate 1 % cream 1 appl topical BID PRN (Reason: Inflammation) (DME) FreeStyle Precision Ronny Strips Strip See Rx Instructions .ROUTE .COMPLEX Qty: 100 5RF Dose Instruction: TEST BLOOD SUGAR 4 TIMES A DAY DIRECTED Rx Instructions: TEST BLOOD SUGAR 4 TIMES A DAY DIRECTED No Action levothyroxine 150 mcg tablet 150 mcg PO DAILY 90 Days Qty: 90 3RF Discharge Orders: Discharge Order (Routine); Ordered 07/29/24 Ordered By: Chaim Bauer Diet: Advance to usual diet Activity on Discharge: As tolerated Stand Alone Forms: Patient Portal Discharge page Print Language: Macedonian Care Plan Goals: recovery from UTI Health Concerns: resistant uti bedbound d/t ankle injury you declined to go to rehab Plan of Treatment: take Ertapenem 1 gram IV daily for 5 more days, ending August 03, 2024 Assessment: see above Discharge Date/Time: 07/29/24 20:08
--- NOTE | 2024-07-29 17:01 | HO.MIDLINE ---
Midline Insertion MIDLINE INSERTION Diagnosis: UTI Indication: 4wks abt Pertinent Labs: reviewed Technique: Using sterile technique including cap and mask, glove and drape, the left arm was prepped and draped in the usual sterile fashion of full barrier technique with CHG. Using ultrasound guidance, left basilic vein access was obtained . 4fr x20cm single lumen nonPASV powerMidline trimmed to 14cm was positioned. The procedure was performed in rm [id number]. Ultrasound was used to document vein patency and for needle entry. A formal ultrasound picture was recorded. [employer]ist has released the line for use and it is currently dressed with a StatLock, Tegaderm, and CHG disc. Verification has been performed for blood return and line patency. Arm Circumference: 58cm Equipment: BARD Power Midline catheter Catheter Type: 4FR x 20cm single lumen nonPASV catheter Lot #: [id number]
[2024-07-29] MEDS: Ertapenem Sodium 1 GM VIAL IVPUSH (17:41)
[2024-07-29 18:54] LABS: Glucose, Whole Blood 232 mg/dL (60-115)
[2024-07-29 19:10] VITALS: PULSE 84; RESP 18; TEMP 36.6; O2SAT 97
== END 2024-07-29 20:08 | disposition home or self-care (01) | DRG 463 ==
LOC: HO.ED 20:06 → HO.EDOVER 20:21 → HO.S3 07-25 07:23
PROVIDERS: Nurse Practitioner Adult Health; Physician Assistant; Admitting Provider Student in an Organized Health Care Education/Training Program; Emergency Provider Emergency Medicine; PCP Registered Nurse; Visit Provider Internal Medicine
DX: N39.0 Urinary tract infection, site not specified (principal); J96.12 Chronic respiratory failure with hypercapnia; E87.21 Acute metabolic acidosis; E66.2 Morbid (severe) obesity with alveolar hypoventilation; J96.11 Chronic respiratory failure with hypoxia; E03.9 Hypothyroidism, unspecified; K76.9 Liver disease, unspecified; Z20.822 Contact with and (suspected) exposure to COVID-19; Z68.45 Body mass index [BMI] 70 or greater, adult; Z74.01 Bed confinement status; Z79.4 Long term (current) use of insulin; Z87.440 Personal history of urinary (tract) infections; Z87.891 Personal history of nicotine dependence; Z79.890 Hormone replacement therapy; Z79.899 Other long term (current) drug therapy
CPT/HCPCS: 0241U; 36410; 36415; 71045; 80048; 80076; 81001; 82803; 82947; 83605; 83690; 83880; 84439; 84443; 84484; 85025; 85027; 87040; 87086; 94640; 94660; 99285; C1751; J1335; J1650; J2185; J2270; P9047

== ENCOUNTER 2024-07-24 20:04 | Outpatient (BNV) | payer MEDICAID, SELFPAY | END 2024-07-24 20:15 | PROVIDERS: Admitting Provider Student in an Organized Health Care Education/Training Program; Emergency Provider Emergency Medicine; PCP Registered Nurse; Visit Provider Radiology Diagnostic Radiology | DX: R09.02 Hypoxemia (principal) | CPT/HCPCS: 71045 ==

== ENCOUNTER → 2024-07-24 20:04 | Outpatient (BNV) | payer MEDICAID, SELFPAY | PROVIDERS: Admitting Provider Student in an Organized Health Care Education/Training Program; Emergency Provider Emergency Medicine; PCP Registered Nurse; Visit Provider Physician Assistant | DX: N39.0 Urinary tract infection, site not specified (principal) | CPT/HCPCS: 99499 ==

== ENCOUNTER → 2024-07-24 20:04 | Outpatient (BNV) | payer MEDICAID, SELFPAY | PROVIDERS: Admitting Provider Student in an Organized Health Care Education/Training Program; Emergency Provider Emergency Medicine; PCP Registered Nurse; Visit Provider Internal Medicine | DX: E87.20 Acidosis, unspecified (principal); N39.0 Urinary tract infection, site not specified | CPT/HCPCS: 99222 ==

== ENCOUNTER 2024-08-30 14:11 | Outpatient (AMB) | payer MEDICAID, SELFPAY ==
--- NOTE | 2024-08-30 07:48 | MHC.OFFVIS ---
Intake Visit Reasons: T2DM Allergies metformin Allergy (Intermediate, Verified 07/24/24 15:59) Diarrhea tetracycline Allergy (Intermediate, Verified 07/24/24 15:59) hives Latex, Natural Rubber Allergy (Verified 07/24/24 15:59) Rash haloperidol (From HALDOL) Adverse Reaction (Intermediate, Verified 07/24/24 15:59) Irritable HPI Comments Details: 53 YO F with PMHx who has agreed to this telehealth visit which was set up at her request. Both patient and provider are in the [facility] and patient is in agreement to have the telehealth appt and is in a safe and secure environment. Today's visit is for F/U for T2DM, NTMNG and hypothyroidism. The patient was last seen by myself 6 weeks ago and which time no change in insulin dosing was made as her freestyle numbers were in good range. Blood work was ordered which was done before she restarted tirosingt. She was hospitalized earlier this year ramiro patel on chronic resp failure. She is at home and has a visiting nurse twice weekly. The visiting nurses name is Yuki [phone] home blood draws can be done through [employer] fax [phone] 1) T2DM: Initially diagnosed with T2DM in 2020. Was initially started on treatment with Metformin. She was unable to tolerate this due to GI distress. Glimepiride: ineffective Current regimen TOUJEO 300UNIT/ML 64 units qHS Humalog 14-24 units TID before meals AC Mounjaro 7.5mg weekly She reports her readings are in good control. She is currently bed-bound in his unable to get up to get her meter but she reports no lows in good control. Family history of T2DM in her Sister. Denies retinopathy: last eye exam 1 1/2 yrs . Needs to make appt [facility] Denies neuropathy, last foot exam 03/[address] Brennan's appt. 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 Denies nephropathy, on Lisinopril 10 mg PO daily. No recent UAC on file. She was seen by Nephrology 09/09 Dr. Davis for resolved hyponatremia due to decreased free water clearance. He recommended avoiding thiazide diuretics and free water restriction. Has HLD, on Atorvastatin 20 mg PO daily. Last LDL 77 as measured on 06/2023 Has CAD. She was evaluated by vascular 09/09. She does have an aortic aneurysm and should she need surgical treatment per vascular [place] [facility] [place] would need to be done at a tertiary care facility as her BMI exceeds the equipment at [facility] She has fatty liver and one gallstone 1.8cm. She has a AAA; last imagin.7 if 5.8 She has osteoporosis on Aldendronate managed by: not managed by Endo. Diet: High in simple carbohydrates. Weight: Stable Has had diabetes education. Information from last appt with Dr. Brennan was carried forward for continuity of care. Most recent TSH 29.9. She reports she just started tirosint yesterday. 2) Thyroid Nodule:After her initial visit in Endocrine visit she was asked her to have a full set of TFTs completed, as well as a CT of the neck and a barium swallow. She initially failed to do this.? She did have her CT which revealed an enlarged R lobe of the thyroid with mass effect on the esophagus as well as the hypopharynx.? She was referred to Dr. Read for a surgical thyroidectomy.? He reviewed her US and felt that the gland was not significantly enlarged enough to be causing compressive symptoms and recommended against a surgical thyroidectomy. In terms of her hypothyroidism, she was first diagnosed with Hypothyroidism many years ago. Her dose of Levothyroxine had been steadily increased to 250 mcg PO daily.? She had reported she was spacing this appropriately from her iron and reports good compliance. She completed a levothyroxine absorption test and this was WNL. After that she did admit to poor compliance. She was switched to Tirosint which was recently denied by insurance. She does have a history of non compliance with medication but does report she has been taking it consistently. ? 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 CT Neck: 11/18/2019FINDINGS: ? ? This examination is limited without contrast. The thyroid gland is ? ? enlarged and soft tissue contiguous with the upper pole of the right ? ? thyroid lobe extends lateral and posterior to the hypopharynx lower ? ? cervical esophagus, inseparable from the structures for example on ? ? image 67 of series 2. This could reflect an exophytic thyroid tissue ? ? alternative pathology to be better assessed with postcontrast CT or a ? ? neck MRI with and without IV contrast. Suspected mass effect on the ? ? hypopharynx and cervical esophagus by this soft tissue. The trachea ? ? remains midline and patent. Artifact precludes assessment of the ? ? inferior extent of the thyroid lobe including the substernal region ? ? which is not included on this exam. ? ? Possible retropharyngeal course of the internal carotid arteries ? ? bilaterally that should be further assessed with postcontrast CT ? ? imaging or a neck MRA prior to any cervical surgical intervention. ? ? Superficial mucosal spaces not diagnostically assessed without ? ? contrast. ? ? Reversal of the cervical lordosis and multilevel cervical spondylosis. ? ? Metallic nails project through the skin of the lower lips which can be ? ? clinically correlated for piercings in these areas. If considering a ? ? MRI, MR compatibility would need to be determined. [facility] Medical History (Updated 09/13/24 @ 16:26 by Carly Hardin NP) Electrolyte abnormality Adult hypothyroidism Right fibular fracture Obesity Osteoporosis Hypercapnia COPD (chronic obstructive pulmonary disease) Hypothyroidism Multinodular thyroid HLD (hyperlipidemia) T2DM (type 2 diabetes mellitus) Pneumonitis Chronic respiratory failure Pulmonary nodules Pneumonia Acute and chronic respiratory failure with hypoxia MORGAN on CPAP Morbid (severe) obesity due to excess calories Chronic restrictive lung disease Obesity due to excess calories DM2 (diabetes mellitus, type 2) HLD (hyperlipidemia) Diabetes Goiter Vitamin D deficiency Hypothyroidism Fibula fracture Hx of fracture of patella Back pain GERD (gastroesophageal reflux disease) Hepatitis History of posttraumatic stress disorder (PTSD) Depression Myocardial infarction AAA (abdominal aortic aneurysm) without rupture Morbid obesity Hernia Umbilical hernia PTSD (post-traumatic stress disorder) ADHD Schizo affective schizophrenia Arthritis Migraine Diabetes HTN (hypertension) Gallstone Aortic aneurysm Sleep apnea Asthma Surgical History Hx of knee surgery Hx of tubal ligation History of incision and drainage Tubal ligation status Family History Father Unknown family medical history Mother Unknown family medical history Sister Ovarian cancer Son No problems noted. Son Depression Son Asthma Bipolar 1 disorder ADHD Daughter No problems noted. Daughter Unknown family medical history Daughter Unknown family medical history Daughter No problems noted. Social History Household Members: Spouse Caregiver staying overnight: No Housing: Apartment Are you a primary special needs child caregiver to a significant other at home: No Do you presently have visiting nurse or other home services: Yes (home life per patient) 75 years or older and lives alone: No Unable to assess alcohol history related to: Unable to respond Alcohol intake: never Patient Tobacco Use Status: Former Tobacco user Tobacco use type: Cigarette Cigarette Packs Per Day: 6 Years Smoked: 35 e-Cigarette/Vaping Use: Currently Using Second Hand Smoke Exposure: No Substance Use Type: Marijuana Advance Directives Date on File: 09/13/21 service: No Current occupational status: unemployed Telehealth Telehealth Telehealth Platform: Telephone Location of provider rendering services: practice address Location of patient: address on file Patient Identification confirmed using: Name, : Yes Patient verbally consented to treatment: Yes Patient verbally consented to billing insurance company: Yes Patient informed of any privacy concerns related to visit: Yes Minutes spent on Phone/Video with Pt.: 30 Assessment & Plan Assessment & Plan (1) Diabetes: Code(s): E11.9 - Type 2 diabetes mellitus without complications Category: Medical Plan: 54-year-old type 2 diabetic with good glycemic control. Continue current medications (2) Hypothyroidism: Code(s): E03.9 - Hypothyroidism, unspecified Category: Medical Plan: She has a history of noncompliance. She has been taking her medication regularly. We will arrange for home blood draw Coding Level of Care Code Tele New Pt Level 4 (73337) Diagnoses Diabetes E11.9 Hypothyroidism E03.9 Time Spent (min) 30 Comment Time spent reviewing labs/provider notes, face to face, chart doc
--- OUTSIDE RECORDS SUMMARY | 2024-08-30 14:13 | XMS_ITS | Encounter Summary ---
Author Organization [employer] Address [address] [place] [address] Care Team Providers Care Patient Insurance Clerk Name Role Phone Toyin Pollard Primary Care Provider [phone] Satish Brennan MD Unavailable [phone] Jacob Morrow Unavailable [phone] Nicolasa Esocbar MD Unavailable [phone] Shen Davis MD Unavailable [phone] Reason for Visit * Reason Onset Date Comments PT1 10/04/2022 Encounter Details Date Type Department Care Team (Late st Contact Info) Description 10/04/2022 Telephone [facility] [address] [place] [address] Toyin Pollard FNP [address], [place] [id number] PT1 Social History Tobacco Use Types Packs/Day [...] 10/04/2022 12:12 PM EDT GLENDY Hanna from [facility] requesting a pt1 to Location:[id number] [place] [address] Specialty: MRI Date&Time: 10/11/22 @ 9am Manager Environmental Affairs: n/a Pt does uses a scooter documented in this encounter Plan of Treatment Upcoming Encounters Date Type Department Care Team (Late st Contact Info) Description 09/23/2024 11:00 AM EDT Telemedicine [facility] [address] [place] [address] Margret Hector RN [address] [place] [address] 11/11/2024 10:00 AM EDT Office Visit [facility] [address] [place] [address] Toyin Pollard FNP [address] [place] [address] 11/15/2024 9:30 AM EDT Office Visit [facility] [address] [place] [address] Toyin Pollard FNP [address] [place] [address] documented as of this encounter Visit Diagnoses Not on filedocumented in this encounter Additional Health Concerns Assessment Noted Time PHQ-9 Depression Total Score: 0 09/29/19 23 2:03 PM EDT documented as of this encounter Care Teams Patient Insurance Clerk Relationship Specialty Start Date End Date Toyin Pollard FNP [address] [place] [id number] PCP - General Family Medicine 01/11/21 Satish Brennan MD [address] [place] [address] Endocrinology 02/22/24 Jacob Morrow [address] [place] [address] Pulmonary Disease 02/22/24 Nicolasa Escobar MD [address] [place] [address] [address] Neurology 02/22/24 Shen Davis MD [address] [place] [address] Nephrology 02/22/24 Ellyn Connolly [employer] Sales Representative 08/17/23 [facility] 01/11/24 01/21/24 [facility] 01/11/24 08/07/24 [employer] 08/14/24 documented as of this encounter
== END 2024-08-30 14:11 | disposition home or self-care (01) ==
LOC: HO.ENCR 14:11
PROVIDERS: PCP Registered Nurse; Visit Provider Nurse Practitioner Adult Health
DX: E11.9 Type 2 diabetes mellitus without complications (principal); Z79.4 Long term (current) use of insulin; E03.9 Hypothyroidism, unspecified
CPT/HCPCS: 99213

== ENCOUNTER → 2024-08-30 14:11 | Outpatient (BNVA) | payer MEDICAID, SELFPAY | PROVIDERS: PCP Registered Nurse; Visit Provider Nurse Practitioner Adult Health | DX: E11.9 Type 2 diabetes mellitus without complications (principal); E03.9 Hypothyroidism, unspecified | CPT/HCPCS: 99212 ==

== ENCOUNTER 2024-12-26 13:56 | Outpatient (AMB) | payer MEDICAID, SELFPAY ==
--- NOTE | 2024-12-26 13:44 | A.OFFVIS_ITS ---
Vital Signs 12/26/24 13:45 Weight 450 lb Intake Visit Reasons: T2DM & Hypothyroidism Intake Note: Patient present today to follow up on Type 2 Diabetes Mellitus.?VIA telehealth Last Diabetic Eye exam:?Does not have eye doctor Last Podiatry Visit:?Does not have a podiatriarist, would like referral Random Glucose:109 this morning mg/dl patient did with glucometer at her home Hgb A1C: DUE Human Resources Hr Representative Required: No Allergies metformin Allergy (Intermediate, Verified 12/26/24 13:50) Diarrhea tetracycline Allergy (Intermediate, Verified 12/26/24 13:50) hives Latex, Natural Rubber Allergy (Verified 12/26/24 13:50) Rash haloperidol (From HALDOL) Adverse Reaction (Intermediate, Verified 12/26/24 13:50) Irritable HPI Comments Details: 53 YO F with PMHx who has agreed to this telehealth visit which was set up at her request. Both patient and provider are in the [facility] and patient is in agreement to have the telehealth appt and is in a safe and secure environment. Today's visit is for F/U for T2DM, NTMNG and hypothyroidism. She was hospitalized earlier this year ramiro patel on chronic resp failure. She is at home and has a visiting nurse twice weekly. The visiting nurses name is Yuki [phone] home blood draws can be done through [employer] fax [phone] 1) T2DM: Initially diagnosed with T2DM in 2020. Was initially started on treatment with Metformin. She was unable to tolerate this due to GI distress. Glimepiride: ineffective Current regimen TOUJEO 300UNIT/ML 64 units qHS Humalog 14-24 units TID before meals AC Mounjaro 7.5mg weekly She reports her readings are in good control 100-150. Denies K last eye doctor appointment any low blood sugars you getting any low blood sugars doing okay She is currently bed-bound in his unable to get up to get her meter but she reports no lows in good control. Family history of T2DM in her Sister. Denies retinopathy: last eye exam this is a possible2 appointment a the may have to do that getting the Mounjaro okay from a GI for me right now and we will try to. 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 Denies nephropathy, on Lisinopril 10 mg PO daily. No recent UAC on file. She was seen by Nephrology 09/09 Dr. Davis for resolved hyponatremia due to decreased free water clearance. He recommended avoiding thiazide diuretics and free water restriction. Has HLD, on Atorvastatin 20 mg PO daily. Last LDL 77 as measured on 06/2023 Has CAD. She was evaluated by vascular 09/09. She does have an aortic aneurysm and should she need surgical treatment per vascular at [facility] [place] [place] this would need to be done at a tertiary care facility as her BMI exceeds the equipment at [facility] [place] [place] She has fatty liver and one gallstone 1.8cm. She has a AAA; last imagin.7 if 5.8 She has osteoporosis on Aldendronate managed by: not managed by Endo. Diet: High in simple carbohydrates. Weight: Stable Has had diabetes education. Information from last appt with Dr. Brennan was carried forward for continuity of care. Most recent TSH 29.9. She reports she just started tirosint yesterday. 2) Thyroid Nodule:After her initial visit in Endocrine visit she was asked her to have a full set of TFTs completed, as well as a CT of the neck and a barium swallow. She initially failed to do this.? She did have her CT which rev ealed an enlarged R lobe of the thyroid with mass effect on the esophagus as well as the hypopharynx.? She was referred to Dr. Read for a surgical thyroidectomy.? He reviewed her US and felt that the gland was not significantly enlarged enough to be causing compressive symptoms and recommended against a surgical thyroidectomy. In terms of her hypothyroidism, she was first diagnosed with Hypothyroidism many years ago. Her dose of Levothyroxine had been steadily increased to 250 mcg PO daily.? She had reported she was spacing this appropriately from her iron and reports good compliance. She completed a levothyroxine absorption test and this was WNL. After that she did admit to poor compliance. She was switched to Tirosint which was recently denied by insurance. She does have a history of non compliance with medication but does report she has been taking it consistently. ? 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 CT Neck: 11/18/2019FINDINGS: ? ? This examination is limited without contrast. The thyroid gland is ? ? enlarged and soft tissue contiguous with the upper pole of the right ? ? thyroid lobe extends lateral and posterior to the hypopharynx lower ? ? cervical esophagus, inseparable from the structures for example on ? ? image 67 of series 2. This could reflect an exophytic thyroid tissue ? ? alternative pathology to be better assessed with postcontrast CT or a ? ? neck MRI with and without IV contrast. Suspected mass effect on the ? ? hypopharynx and cervical esophagus by this soft tissue. The trachea ? ? remains midline and patent. Artifact precludes assessment of the ? ? inferior extent of the thyroid lobe including the substernal region ? ? which is not included on this exam. ? ? Possible retropharyngeal course of the internal carotid arteries ? ? bilaterally that should be further assessed with postcontrast CT ? ? imaging or a neck MRA prior to any cervical surgical intervention. ? ? Superficial mucosal spaces not diagnostically assessed without ? ? contrast. ? ? Reversal of the cervical lordosis and multilevel cervical spondylosis. ? ? Metallic nails project through the skin of the lower lips which can be ? ? clinically correlated for piercings in these areas. If considering a ? ? MRI, MR compatibility would need to be determined. [facility] Medical History Electrolyte abnormality Adult hypothyroidism Right fibular fracture Obesity Osteoporosis Hypercapnia COPD (chronic obstructive pulmonary disease) Hypothyroidism Multinodular thyroid HLD (hyperlipidemia) T2DM (type 2 diabetes mellitus) Pneumonitis Chronic respiratory failure Pulmonary nodules Pneumonia Acute and chronic respiratory failure with hypoxia MORGAN on CPAP Morbid (severe) obesity due to excess calories Chronic restrictive lung disease Obesity due to excess calories DM2 (diabetes mellitus, type 2) HLD (hyperlipidemia) Diabetes Goiter Vitamin D deficiency Hypothyroidism Fibula fracture Hx of fracture of patella Back pain GERD (gastroesophageal reflux disease) Hepatitis History of posttraumatic stress disorder (PTSD) Depression Myocardial infarction AAA (abdominal aortic aneurysm) without rupture Morbid obesity Hernia Umbilical hernia PTSD (post-traumatic stress disorder) ADHD Schizo affective schizophrenia Arthritis Migraine Diabetes HTN (hypertension) Gallstone Aortic aneurysm Sleep apnea Asthma Surgical History Hx of knee surgery Hx of tubal ligation History of incision and drainage Tubal ligation status Family History Father Unknown family medical history Mother Unknown family medical history Sister Ovarian cancer Son No problems noted. Son Depression Son Asthma Bipolar 1 disorder ADHD Daughter No problems noted. Daughter Unknown family medical history Daughter Unknown family medical history Daughter No problems noted. Social History Household Members: Spouse Caregiver staying overnight: No Housing: Apartment Are you a primary primary health care nurse to a significant other at home: No Do you presently have visiting nurse or other home services: Yes (home life per patient) 75 years or older and lives alone: No Unable to assess alcohol history related to: Unable to respond Alcohol intake: never Patient Tobacco Use Status: Former Tobacco user Tobacco use type: Cigarette Cigarette Packs Per Day: 6 Years Smoked: 35 e-Cigarette/Vaping Use: Currently Using Second Hand Smoke Exposure: No Substance Use Type: Marijuana Advance Directives Date on File: 09/13/21 service: No Current occupational status: unemployed Telehealth Telehealth Telehealth Platform: Telephone Location of provider rendering services: practice address Location of patient: address on file Patient Identification confirmed using: Name, : Yes Telehealth method: voice only Patient verbally consented to treatment: Yes Patient verbally consented to billing insurance company: Yes Patient informed of any privacy concerns related to visit: Yes Assessment & Plan Assessment & Plan (1) Diabetes: Code(s): E11.9 - Type 2 diabetes mellitus without complications Category: Medical Plan: 54-year-old type 2 diabetic with good glycemic control. Visit was done virtually by video not optimal and by self reported blood readings Continue current medications (2) Hypothyroidism: Code(s): E03.9 - Hypothyroidism, unspecified Category: Medical Plan: She has a history of noncompliance. She has been taking her medication regularly. We will arrange for home blood draw Coding Level of Care Code Tele Est Pt Level 3 (08654) Diagnoses Diabetes E11.9 Hypothyroidism E03.9
== END 2024-12-27 08:49 | disposition home or self-care (01) ==
LOC: HO.ENCR 13:56
PROVIDERS: PCP Registered Nurse; Referring Provider Registered Nurse; Visit Provider Internal Medicine Endocrinology, Diabetes & Metabolism
DX: E11.9 Type 2 diabetes mellitus without complications (principal); Z79.4 Long term (current) use of insulin; E03.9 Hypothyroidism, unspecified
CPT/HCPCS: 99213

== ENCOUNTER 2025-03-19 09:59 | Outpatient (REF) | payer MEDICAID, SELFPAY ==
--- OUTSIDE RECORDS SUMMARY | 2025-03-19 09:15 | XMS_ITS | Encounter Summary ---
Author Organization [employer] Address [address] [place] [address] Care Team Providers Care Cotton Classer Aide Name Role Phone Toyin Pollard Primary Care Provider [phone] Satish Brennan MD Unavailable [phone] Jacob Morrow Unavailable [phone] Nicolasa Escobar MD Unavailable [phone] Shen Davis MD Unavailable [phone] Reason for Referral * Imaging (Routine) - Authorized Specialty Diagnoses / Procedures Referred By Conttyrese t Referred To Contact Radiology Diagnoses Calculus of gallbladder without cholecystitis without obstruction Infrarenal abdominal aortic aneurysm (AAA) without rupture (CMS/HCC) Procedures US Abdomen Complete Toyin Pollard FNP [address] [place] [address] Phone: tel: fax: [facility] [address] [place] [phone] Phone: tel: fax: Referral ID Status Reason Start Date Expiration Date V isits Requested Visits Authorized [id number] Authorized 03/19/2025 03/19/2026 1 1 * Consultation (Routine) - Pending Review Specialty Diagnoses / Procedures Referred By Vasquez t Referred To Contact General Surgery Diagnoses Calculus of gallbladder without cholecystitis without obstruction Toyin Pollard FNP [address] [place] [address] Phone: tel: fax: [facility] Referral ID Status Reason Start Date Expiration Date Visits Requested Visits Authorized [id number] Pending Review Specialty Services Required 5 03/19/2026 1 1 * Consultation (Routine) - Pending Review Specialty Diagnoses / Procedures Referred By Conttyrese t Referred To Contact Podiatry Diagnoses Type 2 diabetes mellitus with other specified complication, with long-term current use of insulin (HCC) Toyin Pollard FNP [address] [place] [address] Phone: tel: fax: Referral ID Status Reason Start Date Expiration Date Visits Requested Visits Authorized [id number] Pending Review Specialty Services Required 5 03/19/2026 1 1 * Consultation (Routine) - Authorized Specialty Diagnoses / Procedures Referred By Conttyrese t Referred To Contact Behavioral Health Diagnoses Schizoaffective disorder, bipolar type (CMS/HCC) (HCC) Procedures Referral to Behavioral Health Toyin Pollard FNP [address] [place] [address] Phone: tel: fax: Referral ID Status Reason Start Date Expiration Date Visits Requested Visits Authorized [id number] Authorized Specialty Services Required 5 03/19/2026 1 1 * Consultation (Routine) - Pending Review Specialty Diagnoses / Procedures Referred By Conttyrese t Referred To Contact Orthopaedic Surgery Diagnoses Closed fracture of right ankle, sequela Toyin Pollard FNP [address] [place] [address] Phone: tel: fax: [facility] Referral ID Status Reason Start Date Expiration Date Visits Requested Visits Authorized [id number] Pending Review Specialty Services Required 5 03/19/2026 1 1 Encounter Details Date Type Department Care Team (Latest Contact Info) Description 03/19/2025 9:15 AM EST Office Visit [facility] [address] [place] [address] Toyin Pollard, PAIN COORDINATOR [address] [place] [address] Chronic hypoxemic respiratory failure (CMS/HCC) (HCC) (Primary Dx); Type 2 diabetes mellitus with other specified complication, with long-term current use of insulin (HCC); Migraine without status migrainosus, not intractable, unspecified migraine type; Healthcare maintenance; Encounter for immunization; Tinea; Intertrigo; Closed fracture of right ankle, sequela; Schizoaffective disorder, bipolar type (CMS/HCC) (HCC); Calculus of gallbladder without cholecystitis without obstruction; Infrarenal abdominal aortic aneurysm (AAA) without rupture (CMS/HCC); Dizziness, nonspecific Social History Tobacco Use Types Packs/Day Years Used Date Smoking Tobacco: Former Cigarettes Passive Smoke Exposure: Past Smokeless Tobacco: Never Tobacco Cessation:Counseling Given: Not Answered Alcohol Use Standard Drinks/Week Comments Never 0 (1 standard drink = 0.6 oz pur e alcohol) Depression Answer Date Recorded Patient Health Questionnaire-9 Score 16 03/19/2025 Patient Health Questionnaire-9 Score 16 03/19/2025 Last PHQ-9: Questionnaire Data Not on file 1 Housing Stability Answer Date Recorded What is your housing situation today? I have cesar andersen 11/08/[address] you li ve. Do you have problems with any of the following? None of the above 11/08/2024 Food Insecurity Answer Date Recorded Within the past 12 months, y ou worried that your food would run out before you got money to buy more: Sometimes True 2024 Within the past 12 months,th e food you bought just didn't last and you didn't have enough money to get more: Sometimes True 11/08/2024 Transportation Answer Date Recorded In the past 12 months, has l ack of transportation kept you from medical appts, meetings, work or from getting things needed for daily living? Yes, it has kept me from medical appointments or getting medications.;Yes, it has kept me from non-medical meetings, work, or getting things that I need 11/08/2024 Utilities Answer Date Recorded In the past 12 months, has t he electric, gas, oil or water company threatened to shut off services in your home? No 11/08/2024 Depression Answer Date Recorded Patient Health Questionnaire-2 Score 4 03/19/2025 Internet Access Answer Date Recorded Internet Access Q1 Yes 11/08/2024 Internet Access Q2 Not on file 11/08/2024 Comments No Sex and Gender Information Value Date Recorded Sex Assigned at Female 01/17/2022 10:36 AM EDT Legal Sex Female 10:36 AM EDT Gender Identity Female 01/17/2022 10:36 AM EDT Sexual Orientation Straight 01/17/2022 10 :36 AM EDT documented as of this encounter Last Filed Vital Signs Vital Sign Reading Time Taken Comments Blood Pressure - - Pulse 64 03/19/2025 9:40 AM EST Temperature 36.4 C (97.5 F) 03/19/2025 9:40 AM EST Respiratory Rate 24 03/19/2025 9:40 AM EST Oxygen Saturation 93% 03/19/2025 9:4 0 AM EST with O2 at 6ml Inhaled Oxygen Concentration - - Weight - - Height - - Body Mass Index - - documented in this encounter Functional Status * Over the past 2 weeks, how often have you been bothered by any of the following problems? Question Answer Date of Assessment Author Patient Health Questionnaire -2 Score 4 03/19/2025 10:40 AM Manisha Swan MA * Little interest or pleasure in doing things Answer Date of Assessment Author More than half the days 03/19/2025 10:40 AM Manisha Swan MA * Feeling down, depressed, or hopeless Answer Date of Assessment Author More than half the days 03/19/2025 10:40 AM Manisha Swan MA * Trouble falling or staying asleep, or sleeping too much Answer Date of Assessment Author Nearly every day 03/19/2025 10:40 AM Manisha Swan MA * Feeling tired or having little energy Answer Date of Assessment Author More than half the days 03/19/2025 10:40 AM Manisha Swan MA * Poor appetite or overeating Answer Date of Assessment Author Nearly every day 03/19/2025 10:40 AM Manisha Swan MA * Feeling bad about yourself - or that you are a failure or have let yourself or your family down Answer Date of Assessment Author More than half the days 03/19/2025 10:40 AM Manisha Swan MA * Trouble concentrating on things, such as reading the newspaper or watching television Answer Date of Assessment Author Not at all 03/19/2025 10:40 AM Arcelia Swan MA * Moving or speaking so slowly that other people could have noticed? Or the opposite - being so fidgety or restless that you have been moving around a lot more than usual. Answer Date of Assessment Author Several days 03/19/2025 10:40 AM Arcelia Swan MA * Thoughts that you would be better off or hurting yourself in some way Answer Date of Assessment Author Several days 03/19/2025 10:40 AM Arcelia Swan MA * Patient Health Questionnaire-9 Score Answer Date of Assessment Author 16 03/19/2025 10:40 AM Arcelia Swan MA * How difficult have these problems made it for you to do your work, take care of things at home, or get along with other people? Answer Date of Assessment Author Somewhat difficult 03/19/2025 10:40 AM Manisha Swan MA documented as of this encounter Patient Instructions * Patient Instructions* LOUIE Finley - 03/19/2025 9:15 AM EST - An appointment request to [facility] was sent on 03/19/25 - [employer] orders will be sent within the next 7-10 business days: 4xL diapers Reusable pads x 2 wipes documented in this encounter Miscellaneous Notes * Assessment & Plan Note - LOUIE Finley - 03/19/2025 6:55 AM ESTAssociated Problem(s): Migraine - History of migraines, previously using sumatripan. Discontinued with history of [place] - Referral to Neuro for further eval and tx 11/15/22 -Nurtec 75mg tablet approval - PA # [id number], exp 03/11/26 - pt reports med effective. Denies med SE * Assessment & Plan Note - LOUIE Finley - 03/19/2025 6:54 AM ESTAssociated Problem(s): T2DM (type 2 diabetes mellitus) (HCC) Following with [facility] Endo Continue Mounjaro & Toujeo, with goal of weight loss leading to bariatric surgery Lab Results Component Value Date HGBA1C 6.4 (A) 08/02/2023 HGBA1C 6.7 (A) 07/17/2023 HGBA1C 10.4 (A) 03/01/2023 HGBA1C TNP 07/20/2022 HGBA1C 7.8 (H) 01/11/2021 HGBA1C 11.9 (H) 11/11/2019 HGBA1C 11.9 (H) 11/11/2019 A1c: congratulated in improvement with A1c levels Eye exam: due, schedule with [facility] Foot exam: referral to podiatry 11/15/22 Dental: encouraged PNA: UTD ACEi/ARB: yes Statin: yes ASA: yes Lifestyle: Encouraged regular movement as able and aerobic exercise for improved glycemic control Encouraged daily foot checks Encouraged lean protein snacks and to avoid foods high in sugar and simple carbohydrates Medications: Per [facility] Endo Toujeo insulin: 64 units at bedtime Humalog 14 units TID AC Mounjaro 7.5mg subcutaneous weekly Treatment Goals: A1c goal: <7% FBG goal: <130 2 hour post prandial goal: <180 * Assessment & Plan Note - LOUIE Finley - 03/19/2025 6:51 AM ESTAssociated Problem(s): Chronic hypoxemic respiratory failure (CMS/HCC) (HCC) Following with [facility] Pulm - Dr. Morrow Continues on 7L oxygen, non-invasive ventilator at bedtime documented in this encounter Plan of Treatment Upcoming Encounters Date Type Department Care Team (Late st Contact Info) Description 05/19/2025 11:00 AM EST Telemedicine [facility] [address] [place] [address] Margret Hector RN [address] [place] [address] Scheduled Orders Name Type Priority Associated Diagnoses Orde r Schedule HIV-1/2 Antigen and Antibodies, Fourth Generation, with Reflexes Lab Routine Healthcare maintenance Expected: 03/19/2025 (Approximate), Expires: 03/19/2026 RPR (Monitor) with Reflex to Titer Lab Routine Healthcare maintenance Expected: 03/19/2025, Expires: 03/19/2026 Hepatitis C Antibody with Reflex to HCV, RNA, Quantitative, Real-Time PCR Lab Routine Healthcare maintenance Expected: 03/19/2025, Expires: 03/19/2026 Chlamydia/Trichomonas/Nei sseria gonorrhoeae, PCR, Urine Lab Routine Healthcare maintenance Expected: 03/19/2025 (Approximate), Expires: 03/19/2026 Albumin, Random Urine W/Creatinine Lab Routine Healthcare maintenance Expected: 03/19/2025 (Approximate), Expires: 03/19/2026 Lipid Panel, Standard Lab Routine Healthcare maintenance Expected: 03/19/2025 (Approximate), Expires: 03/19/2026 Hemoglobin A1c Lab Routine Healthcare maintenance Expected: 03/19/2025 (Approximate), Expires: 03/19/2026 TSH with Reflex to Free T4 Lab Routine Healthcare maintenance Expected: 03/19/2025 (Approximate), Expires: 03/19/2026 Comprehensive Metabolic Panel Lab Routine Healthcare maintenance Expected: 03/19/2025 (Approximate), Expires: 03/19/2026 CBC auto differential Lab Routine Healthcare maintenance Expected: 03/19/2025, Expires: 03/19/2026 Hepatitis B Core Antibody, Total Lab Routine Healthcare maintenance Expected: 03/19/2025 (Approximate), Expires: 03/19/2026 Hepatitis B Surface Antibody, Qualitative Lab Routine Healthcare maintenance Expected: 03/19/2025 (Approximate), Expires: 03/19/2026 Hepatitis B surface antigen, EIA Lab Routine Healthcare maintenance Expected: 03/19/2025 (Approximate), Expires: 03/19/2026 US Abdomen Complete Imaging Routine Calculus of gallbladder without cholecystitis without obstruction Infrarenal abdominal aortic aneurysm (AAA) without rupture (CMS/HCC) Expected: 03/19/2025, Expires: 03/19/2026 Scheduled Referrals Name Type Priority Associated Diagnoses Orde r Schedule Referral to Orthopaedic Surgery Outpatient Referral Routine Closed fracture of right ankle, sequela Expected: 03/19/2025 (Approximate), Expires: 03/19/2026 Referral to Podiatry Outpatient Referral Routine Type 2 diabetes mellitus with other specified complication, with long-term current use of insulin (HCC) Expected: 03/19/2025 (Approximate), Expires: 03/19/2026 Referral to General Surgery Outpatient Referral Routine Calculus of gallbladder without cholecystitis without obstruction Expected: 03/19/2025 (Approximate), Expires: 03/19/2026 documented as of this encounter Goals Goal Patient Goal Type Associated Problems Recent Progress Patient-Stated? Author Hemoglobin A1c < 7 Result Component 5.9( 9:46 AM EST) No Michelle Alegria, PharmD Help patients manage their type 2 diabetes Care Plan Help patients manage their type 2 diabetes No Manisha Rocha MA Weekly blood pressure task Care Plan Weekly blood pressure task No Manisha Rocha MA Help patients manage their type 2 diabetes Care Plan Help patients manage their type 2 diabetes No Manisha Rocha MA Patient has chronic kidney disease Care Plan Patient has chronic kidney disease No Manisha Rocha MA Weekly blood pressure task Care Plan Weekly blood pressure task No Manisha Rocha MA Patient has chronic kidney disease Care Plan Patient has chronic kidney disease No Manisha Rocha MA Weekly blood pressure task Care Plan Weekly blood pressure task No Manisha Rocha MA Weekly blood pressure task Care Plan Weekly blood pressure task No Manisha Rocha MA Patient has chronic kidney disease Care Plan Patient has chronic kidney disease No Manisha Rocha MA Patient has chronic kidney disease Care Plan Patient has chronic kidney disease No Manisha Rocha MA Weekly blood pressure task Care Plan Weekly blood pressure task No Ellyn Mckeon PharmD Weekly blood pressure task Care Plan Weekly blood pressure task No Ellyn Mckeon PharmD Patient has chronic kidney disease Care Plan Patient has chronic kidney disease No Ellyn Mckeon PharmD Patient has chronic kidney disease Care Plan Patient has chronic kidney disease No Ellyn Mckeon PharmD Weekly blood pressure task Care Plan Weekly blood pressure task No Adina Conti RN Weekly blood pressure task Care Plan Weekly blood pressure task No Adina Conti RN Patient has chronic kidney disease Care Plan Patient has chronic kidney disease No Adina Conti RN Patient has chronic kidney disease Care Plan Patient has chronic kidney disease No Adina Conti, RN Weekly blood pressure task Care Plan Weekly blood pressure task No Mona Ivory LPN Weekly blood pressure task Care Plan Weekly blood pressure task No Mona Ivory LPN Patient has chronic kidney disease Care Plan Patient has chronic kidney disease No Mona Ivory LPN Patient has chronic kidney disease Care Plan Patient has chronic kidney disease No Mona Ivory LPN Weekly blood pressure task Care Plan Weekly blood pressure task No Mona Ivory LPN Weekly blood pressure task Care Plan Weekly blood pressure task No Mona Ivory TIE PULLER Patient has chronic kidney disease Care Plan Patient has chronic kidney disease No Mona Ivory LPN Patient has chronic kidney disease Care Plan Patient has chronic kidney disease No Mona Ivory LPN Weekly blood pressure task Care Plan Weekly blood pressure task No Margret Hector RN Weekly blood pressure task Care Plan Weekly blood pressure task No Margret Hector RN Patient has chronic kidney disease Care Plan Patient has chronic kidney disease No Margret Hector RN Patient has chronic kidney disease Care Plan Patient has chronic kidney disease No Margret Hector RN Weekly blood pressure task Care Plan Weekly blood pressure task No Traci Jackson Weekly blood pressure task Care Plan Weekly blood pressure task No Traci Jackson Patient has chronic kidney disease Care Plan Patient has chronic kidney disease No Traci Jackson Patient has chronic kidney disease Care Plan Patient has chronic kidney disease No Traci Jackson Weekly blood pressure task Care Plan Weekly blood pressure task No Ellyn Chery LPN Weekly blood pressure task Care Plan Weekly blood pressure task No Ellyn Chery, TIE PULLER Patient has chronic kidney disease Care Plan Patient has chronic kidney disease No Ellyn Chery LPN Patient has chronic kidney disease Care Plan Patient has chronic kidney disease No Ellyn Chery, VIVIAN Weekly blood pressure task Care Plan Weekly blood pressure task No Mona Ivory, TIE PULLER Weekly blood pressure task Care Plan Weekly blood pressure task No Mona Ivory LPN Patient has chronic kidney disease Care Plan Patient has chronic kidney disease No Cachorro Mona, VIVIAN Patient has chronic kidney disease Care Plan Patient has chronic kidney disease No Mona Ivory, TIE PULLER Weekly blood pressure task Care Plan Weekly blood pressure task No Mili Streeter Weekly blood pressure task Care Plan Weekly blood pressure task No Mili Streeter Patient has chronic kidney disease Care Plan Patient has chronic kidney disease No Mili Streeter Patient has chronic kidney disease Care Plan Patient has chronic kidney disease No Mili Streeter Weekly blood pressure task Care Plan Weekly blood pressure task No Shira Lee LPN Weekly blood pressure task Care Plan Weekly blood pressure task No Shira Lee, TIE PULLER Patient has chronic kidney disease Care Plan Patient has chronic kidney disease No Shira Lee, VIVIAN Patient has chronic kidney disease Care Plan Patient has chronic kidney disease No Shira Lee LPN Weekly blood pressure task Care Plan Weekly blood pressure task No Cooper Kurtz Weekly blood pressure task Care Plan Weekly blood pressure task No Cooper Kurtz Patient has chronic kidney disease Care Plan Patient has chronic kidney disease No Cooper Kurtz Patient has chronic kidney disease Care Plan Patient has chronic kidney disease No Cooper Kurtz Weekly blood pressure task Care Plan Weekly blood pressure task No Ambrocio Carcamo MA Weekly blood pressure task Care Plan Weekly blood pressure task No Ambrocio Carcamo MA Patient has chronic kidney disease Care Plan Patient has chronic kidney disease No Ambrocio Carcamo [place] Patient has chronic kidney disease Care Plan Patient has chronic kidney disease No Ambrocio Carcamo MA Weekly blood pressure task Care Plan Weekly blood pressure task No Toyin Pollard PAIN COORDINATOR Weekly blood pressure task Care Plan Weekly blood pressure task No Toyin Pollard, PAIN COORDINATOR Patient has chronic kidney disease Care Plan Patient has chronic kidney disease No Toyin Pollard FNP Patient has chronic kidney disease Care Plan Patient has chronic kidney disease No Toyin Pollard FNP documented as of this encounter Procedures Procedure Name Priority Date/Time Associated Diagnosis Comments POCT GLYCATED HEMOGLOBIN, TOTAL Routine 03/19/2025 9:46 AM EST Type 2 diabetes mellitus with other specified complication, with long-term current use of insulin ([facility]) POCT GLUCOSE (CPT-57425) Routine 03/19/2025 9:45 AM EST Type 2 diabetes mellitus with other specified complication, with long-term current use of insulin ([facility]) documented in this encounter Results * (ABNORMAL) POCT Hgb A1c (03/19/2025 9:46 AM EST) Hemoglobin A1C 5.9(A) 4.0 - 5.7 % QC Media Lot # [id number] Lot# Expiration Date Blood 03/19/2025 9:46 AM EST us Toyin PALMA POINT OF CARE TEST ENTER/EDIT ORDERABLES Final Result * POCT Glucose (03/19/2025 9:45 AM EST) Glucose Blood, POC 145 60 - 200 mg/dL QC Media Lot # [id number] Lot# Expiration Date Blood Capillary blood specimen / Unknown 03/19/2025 9:45 AM EST us Toyin PALMA POINT OF CARE TEST ENTER/EDIT ORDERABLES Final Result documented in this encounter Visit Diagnoses Diagnosis Chronic hypoxemic respiratory failure (CMS/HCC) (HCC)- Primary Chronic respiratory failure Type 2 diabetes mellitus with other specified complication, with long-term current use of insulin ([facility]) Migraine without status migrainosus, not intractable, unspecified migraine type Healthcare maintenance Encounter for immunization Tinea Dermatophytosis of unspecified site Intertrigo Other specified erythematous condition Closed fracture of right ankle, sequela Schizoaffective disorder, bipolar type (CMS/HCC) (HCC) Schizoaffective disorder, unspecified condition Calculus of gallbladder without cholecystitis without obstruction Infrarenal abdominal aortic aneurysm (AAA) without rupture (CMS/HCC) Dizziness, nonspecific Dizziness and giddiness documented in this encounter Additional Health Concerns Active Problems Noted Date Diagnosed Date Help patients manage their type 2 diabetes 01/29 Weekly blood pressure task 01/29/2025 Help patients manage their type 2 diabetes 01/29 Patient has chronic kidney disease 01/29/2025 Weekly blood pressure task 01/29/2025 Patient has chronic kidney disease 01/29/2025 Weekly blood pressure task 01/29/2025 Weekly blood pressure task 01/29/2025 Patient has chronic kidney disease 01/29/2025 Patient has chronic kidney disease 01/29/2025 Weekly blood pressure task 01/30/2025 Weekly blood pressure task 01/30/2025 Patient has chronic kidney disease 01/30/2025 Patient has chronic kidney disease 01/30/2025 Weekly blood pressure task 01/31/2025 Weekly blood pressure task 01/31/2025 Patient has chronic kidney disease 01/31/2025 Patient has chronic kidney disease 01/31/2025 Weekly blood pressure task 02/05/2025 Weekly blood pressure task 02/05/2025 Patient has chronic kidney disease 02/05/2025 Patient has chronic kidney disease 02/05/2025 Weekly blood pressure task 02/05/2025 Weekly blood pressure task 02/05/2025 Patient has chronic kidney disease 02/05/2025 Patient has chronic kidney disease 02/05/2025 Weekly blood pressure task 02/07/2025 Weekly blood pressure task 02/07/2025 Patient has chronic kidney disease 02/07/2025 Patient has chronic kidney disease 02/07/2025 Weekly blood pressure task 02/07/2025 Weekly blood pressure task 02/07/2025 Patient has chronic kidney disease 02/07/2025 Patient has chronic kidney disease 02/07/2025 Weekly blood pressure task 03/03/2025 Weekly blood pressure task 03/03/2025 Patient has chronic kidney disease 03/03/2025 Patient has chronic kidney disease 03/03/2025 Weekly blood pressure task 03/06/2025 Weekly blood pressure task 03/06/2025 Patient has chronic kidney disease 03/06/2025 Patient has chronic kidney disease 03/06/2025 Weekly blood pressure task 03/07/2025 Weekly blood pressure task 03/07/2025 Patient has chronic kidney disease 03/07/2025 Patient has chronic kidney disease 03/07/2025 Weekly blood pressure task 03/12/2025 Weekly blood pressure task 03/12/2025 Patient has chronic kidney disease 03/12/2025 Patient has chronic kidney disease 03/12/2025 Weekly blood pressure task 03/17/2025 Weekly blood pressure task 03/17/2025 Patient has chronic kidney disease 03/17/2025 Patient has chronic kidney disease 03/17/2025 Weekly blood pressure task 03/17/2025 Weekly blood pressure task 03/17/2025 Patient has chronic kidney disease 03/17/2025 Patient has chronic kidney disease 03/17/2025 Weekly blood pressure task 03/19/2025 Weekly blood pressure task 03/19/2025 Patient has chronic kidney disease 03/19/2025 Patient has chronic kidney disease 03/19/2025 Assessment Noted Time PHQ-9 Depression Total Score: 16 025 10:40 AM EST documented as of this encounter Care Teams Cotton Classer Aide Relationship Specialty Start Date End Date Toyin Pollard FNP [address] [place] [id number] PCP - General Family Medicine 01/11/21 Satish Brennan MD [address] [facility] [address] [place] [address] Endocrinology 02/22/24 Jacob Morrow [address] [place] [address] Pulmonary Disease 02/22/24 Nicolasa Escobar MD [address] [place] [address] [place] [address] Neurology 02/22/24 Shen Davis MD [address] [facility] [address] [place] [address] Nephrology 02/22/24 Ellyn Connolly Personal Investment AdviserWaiter And Cashier 08/17/23 [employer] 08/14/24 documented as of this encounter
--- OUTSIDE RECORDS SUMMARY | 2025-03-19 10:56 | XMS_ITS | Encounter Summary ---
Author Organization [employer] Address [address] [facility] 7t [place] [address] Care Team Providers Care Production Assembly Supervisor Name Role Phone Toyin Pollard Primary Care Provider Satish Brennan MD Unavailable Jacob Morrow Unavailable [phone] Nicolasa Escobar MD Unavailable [phone] Shen Davis MD Unavailable [phone] Reason for Visit * Reason Onset Date Comments MRI order 10/03/2022 FYI 10/03/2022 Encounter Details Date Type Department Care Team (Late st Contact Info) Description 10/03/2022 Telephone [facility] [address] [place] [address] Toyin Pollard FNP 505 [place], [place] [phone] MRI order ; I Social History Tobacco Use Types Packs/Day Years [...] - 10/03/2022 2:16 PM EDT Tc from [facility] MRI Dept supervisor keymodule assembly would like to inform PCP that pt was unable to get MRI done ,due to being a closed scanner , States will be faxing order to [facility] since they have a MRI scanner that is open. Advised will leave message as a FYI if any questions or concerns please contact at [phone] * Telephone Encounter - Azalea Guerrero RN - 10/03/2022 2:05 PM EDT [facility] received updated order. * Telephone Encounter - Clara Simmons - 10/03/2022 9:34 AM EDT [facility] for MRI abdomin. States MRI has to be MRI abdomin with and without contrast. She is also requesting a call in regards to ct scan done at [facility]. Please contact racheal at [phone] Fax number: [phone] documented in this encounter Plan of Treatment Upcoming Encounters Date Type Department Care Team (Late st Contact Info) Description 05/19/2025 11:00 AM EST Telemedicine [facility] MED & PEDS 505 [place] [address] Margret Hector, RN 505 [place] [address] documented as of this encounter Visit Diagnoses Not on filedocumented in this encounter Additional Health Concerns Assessment Noted Time PHQ-9 Depression Total Score: 0 09/29/19 23 2:03 PM EDT documented as of this encounter Care Teams Production Assembly Supervisor Relationship Specialty Start Date End Date Toyin Pollard FNP [address] [place] [address] PCP - General Family Medicine 01/11/21 Satish Brennan MD [address] [place] [address] Endocrinology 02/22/24 Cristhian Jacob [address] [place] [address] Pulmonary Disease 02/22/24 Nicolasa Escobar MD [address] [place] [address] [address] Neurology 02/22/24 Shen Davis MD [address] [place] [address] Nephrology 02/22/24 Ellyn Connolly Surgical Dental AssistantArts Education Teacher 08/17/23 [facility] 01/11/24 01/21/24 [facility] 01/11/24 08/07/24 [employer] 08/14/24 documented as of this encounter
--- OUTSIDE RECORDS SUMMARY | 2025-03-19 10:56 | XMS_ITS | Encounter Summary ---
Author Organization [employer] Address 75 [facility] 7t [place] [address] Care Team Providers Care Filling Carrier Name Role Phone Toyin Pollard LOUIE Primary Care Provider Satish Brennan MD Unavailable Jacob Morrow Unavailable [phone] Nicolasa Escobar MD Unavailable [phone] Shen Davis MD Unavailable [phone] Encounter Details Date Type Department Care Team (Late Contact Info) Description 07/21/2022 Orders Only [facility] MED & PEDS 505 [place] [address] Ellyn Chery LPN Social History Tobacco Use [...] Department Care Team (Late Contact Info) Description 05/19/2025 11:00 AM EST Telemedicine [facility] MED & PEDS 505 [place], [place] [phone] Margret Hector, MINA 505 [place] [address] documented as of this encounter Visit Diagnoses Not on filedocumented in this encounter Care Teams Filling Carrier Relationship Specialty Start Date End Date Toyin Pollard FNP 230 [place] [address] PCP - General Family Medicine 01/11/21 Satish Brennan MD [address] [place] [address] Endocrinology 02/22/24 Jacob Morrow 5 [place] [address] Pulmonary Disease 02/22/24 Nicolasa Escobar MD [address] [place] [address] [place] [address] Neurology 02/22/24 Shen Davis MD [address] [place] [address] Nephrology 02/22/24 Ellyn Connolly Field Nurse Case ManagerFinancial Accounting Analyst 08/17/23 [facility] 01/11/24 01/21/24 [facility] 01/11/24 08/07/24 [facility] 08/14/24 documented as of this encounter
--- OUTSIDE RECORDS SUMMARY | 2025-03-19 10:56 | XMS_ITS | Encounter Summary ---
Author Organization [employer] Address 75 [facility] 7t [place] [address] Care Team Providers Care Hot Mill Worker Name Role Phone Toyin Pollard Primary Care Provider [phone] Satish Brennan MD Unavailable Jacob Morrow Unavailable [phone] Nicolasa Escobar MD Unavailable [phone] Shen Davis MD Unavailable [phone] Encounter Details Date Type Department Care Team (Late st Contact Info) Description 07/13/2022 Orders Only [facility] MEDICINE [address] [place] [address] Toyin Pollard FNP 505 [place] [address] Social History Tobacco Use Types Packs/Day Years [...] Info) Description 05/19/2025 11:00 AM EST Telemedicine [facility] MED & PEDS 505 [place], [place] [phone] Margret Hector, RN 505 [place], [place] [phone] documented as of this encounter Visit Diagnoses Not on filedocumented in this encounter Care Teams Hot Mill Worker Relationship Specialty Start Date End Date Toyin PollardLOUIE 230 [place] [address] PCP - General Family Medicine 01/11/21 Satish Brennan MD [address] [place] [address] Endocrinology 02/22/24 Jacob Morrow 5 [place] [address] Pulmonary Disease 02/22/24 Nicolasa Escobar MD [address] [place] [address] [address] Neurology 02/22/24 Shen Davis MD [address] [place] [address] Nephrology 02/22/24 Ellyn Connolly Butter MelterLacemaker 08/17/23 [facility] 01/11/24 01/21/24 [facility] 01/11/24 08/07/24 [employer] 08/14/24 documented as of this encounter
--- OUTSIDE RECORDS SUMMARY | 2025-03-19 10:56 | XMS_ITS | Encounter Summary ---
Author Organization [employer] Address 75 [facility] 7t [place] [address] Care Team Providers Care Deputy Sheriff Lieutenant Name Role Phone Toyin Pollard LOUIE Primary Care Provider Satish Brennan MD Unavailable Jacob Morrow Unavailable [phone] Nicolasa Escobar MD Unavailable Shen Davis MD Unavailable [phone] Reason for Visit * Reason Comments Med Refill Encounter Details Date Type Department Care Team (Late st Contact Info) Description 08/24/2023 Refill [facility] MEDICINE 230 [place] [address] Agustina Toribio MD 230 [place] [address] Social History Tobacco Use Types Packs/Day Years [...] Info) Description 05/19/2025 11:00 AM EST Telemedicine [facility] MED & PEDS 505 [place] [address] Margret Hector, MINA 505 [place] [address] documented as of this encounter Goals Goal Patient Goal Type Associated Problems Recent Progress Patient-Stated? Author Hemoglobin A1c < 7 Result Component 5.9(03/19/2025 9:46 AM EST) No Michelle Alegria, PharmD documented as of this encounter Visit Diagnoses Not on filedocumented in this encounter Additional Health Concerns Assessment Noted Time PHQ-9 Depression Total Score: 13 024 4:37 PM EDT documented as of this encounter Care Teams Deputy Sheriff Lieutenant Relationship Specialty Start Date End Date Toyin Pollard FNP 230 [place] [address] PCP - General Family Medicine 01/11/21 Satish Brennan MD [address] [place] [address] Endocrinology 02/22/24 Jacob Morrow [address] [place] [address] Pulmonary Disease 02/22/24 Nicolasa Escobar MD [address] [address] Neurology 02/22/24 Shen Davis MD [address] [place] [address] Nephrology 02/22/24 Ellyn Connolly Personnel AdministratorHealth Information Managers 08/17/23 [facility] 01/11/24 01/21/24 [facility] 01/11/24 08/07/24 [employer] 08/14/24 documented as of this encounter
--- OUTSIDE RECORDS SUMMARY | 2025-03-19 10:56 | XMS_ITS | Encounter Summary ---
Author Organization [employer] Address 75 [facility] 7t [place] [address] Care Team Providers Care Flight/Transport Nurse Name Role Phone Toyin Pollard LOUIE Primary Care Provider Satish Brennan MD Unavailable [phone] Jacob Morrow Unavailable [phone] Nicolasa Escobar MD Unavailable Shen Davis MD Unavailable [phone] Encounter Details Date Type Department Care Team (Late st Contact Info) Description 07/20/2023 Orders Only [facility] MEDICINE 230 [place], [place] [phone] Agustina Toribio MD 230 [place] [address] Hyperkalemia (Primary Dx) Social History Tobacco Use [...] Info) Description 05/19/2025 11:00 AM EST Telemedicine [facility] MED & PEDS 505 [place] [address] Margret Hector, MINA 505 [place] [address] Scheduled Orders Name Type Priority Associated Diagnoses [...] documented as of this encounter Care Teams Flight/Transport Nurse Relationship Specialty Start Date End Date Toyin Pollard FNP [address] [place] [address] PCP - General Family Medicine 01/11/21 Satish Brennan MD [address] [place] [address] Endocrinology 02/22/24 Jacob Morrow [address] [place] [phone] Pulmonary Disease 02/22/24 Nicolasa Escobar MD [address] [facility] [address] [facility] 140 [place], [place] [phone] Neurology 02/22/24 Shen Davis MD [address] [place] [address] Nephrology 02/22/24 Ellyn Connolly Pump Station OperatorChisel Worker 08/17/23 [facility] 01/11/24 01/21/24 [facility] 01/11/24 08/07/24 [email or web address] 08/14/24 documented as of this encounter
--- OUTSIDE RECORDS SUMMARY | 2025-03-19 10:56 | XMS_ITS | Encounter Summary ---
Author Organization [employer] Address [address] [facility] 7t [place] [address] Care Team Providers Care Oiler Bander Name Role Phone Toyin Pollard Primary Care Provider Satish Brennan MD Unavailable Jacob Morrow Unavailable [phone] Nicolasa Escobar MD Unavailable Shen Davis MD Unavailable [phone] Encounter Details Date Type Department Care Team (Late Contact Info) Description 05/24/2022 Abstract [facility] MEDICINE 230 [place] [address] Toyin Pollard FNP 505 [place], [place] [phone] Social History Tobacco Use Types Packs/Day Years [...] Info) Description 05/19/2025 11:00 AM EST Telemedicine [facility] MED & PEDS 505 [place], [place] [phone] Margret Hector, MINA [address] [place] [address] documented as of this encounter Visit Diagnoses Not on filedocumented in this encounter Care Teams Oiler Bander Relationship Specialty Start Date End Date Toyin Pollard FNP 230 [place] [address] PCP - General Family Medicine 01/11/21 Satish Brennan MD [address] [place] [address] Endocrinology 02/22/24 Jacob Morrow 5 [place] [address] Pulmonary Disease 02/22/24 Nicolasa Escobar MD [address] [place] [address] Dr [address] [place] [address] Neurology 02/22/24 Shen Davis MD [address] [place] [address] Nephrology 02/22/24 Ellyn Connolly Center DirectorSplicer Helper 08/17/23 [facility] 01/11/24 01/21/24 [facility] 01/11/24 08/07/24 [employer] 08/14/24 documented as of this encounter
--- OUTSIDE RECORDS SUMMARY | 2025-03-19 10:56 | XMS_ITS | Encounter Summary ---
Author Organization [employer] Address 75 [facility] 7t [place] [address] Care Team Providers Care Wheelage Clerk Name Role Phone Toyin Pollard Primary Care Provider Satish Brennan MD Unavailable Jacob Morrow Unavailable [phone] Nicolasa Escobar MD Unavailable Shen Davis MD Unavailable [phone] Encounter Details Date Type Department Care Team (Late st Contact Info) Description 06/15/2022 Orders Only [facility] MED & PEDS 505 [place] [address] Ellyn Chery LPN Social History Tobacco Use [...] Info) Description 05/19/2025 11:00 AM EST Telemedicine [facility] MED & PEDS 505 [place] [address] Margret Hector, MINA 505 [place] [address] documented as of this encounter Visit Diagnoses Not on filedocumented in this encounter Care Teams Wheelage Clerk Relationship Specialty Start Date End Date Toyin Pollard FNP [address] [place] [address] PCP - General Family Medicine 01/11/21 Satish Brennan MD [address] [place] [address] Endocrinology 02/22/24 Jacob Morrow 5 [place] [address] Pulmonary Disease 02/22/24 Nicolasa Esocbar MD [address] [place] [address] 140 [place] [address] Neurology 02/22/24 Shen Davis MD [address] [place] [address] Nephrology 02/22/24 Ellyn Connolly Fish Net MakerMachine Slat Basket Maker 08/17/23 [facility] 01/11/24 01/21/24 [facility] 01/11/24 08/07/24 [employer] 08/14/24 documented as of this encounter
--- OUTSIDE RECORDS SUMMARY | 2025-03-19 10:56 | XMS_ITS | Encounter Summary ---
Author Organization [employer] Address 75 [facility] 7t [place] [address] Care Team Providers Care Service Parts Driver Name Role Phone Toyin Pollard Primary Care Provider Satish Brennan MD Unavailable Jacob Morrow Unavailable [phone] Nicolasa Escobar MD Unavailable [phone] Shen Davis MD Unavailable [phone] Reason for Visit * Reason Onset Date Comments ER Follow-up 06/06/2023 Encounter Details Date Type Department Care Team (Late st Contact Info) Description 06/06/2023 Telephone [facility]ICINE 230 [place], [place] [phone] Toyin Pollard FNP [address] [place], [place] [phone] ER Follow-up Social History Tobacco Use Types [...] provided by ED. Pt requested appt at [facility] and scheduled pt with Dr. Franko Monet for 06/11 at 3:45 pm. Pt verbalized understanding and agreement with plan. * Telephone Encounter - Joseph Lopez - 06/06/2023 3:51 PM EDT Patient calling to report ED visit on : Date: 06/04 Hospital: [facility] Seen for: COPD and bronchitis Patient advised will forward to team nurse for follow up documented in this encounter Plan of Treatment Upcoming Encounters Date Type Department Care Team (Late st Contact Info) Description 05/19/2025 11:00 AM EST Telemedicine [facility] MED & PEDS 505 [place] [address] Margret Hector, RN 505 [place] [address] documented as of this encounter Goals Goal Patient Goal Type Associated Problems Recent Progress Patient-Stated? Author Hemoglobin A1c < 7 Result Component 5.9(03/19/2025 9:46 AM EST) No Michelle Alegria, Joe documented as of this encounter Visit Diagnoses Not on filedocumented in this encounter Additional Health Concerns Assessment Noted Time PHQ-9 Depression Total Score: 0 09/29/19 23 2:03 PM EDT documented as of this encounter Care Teams Service Parts Driver Relationship Specialty Start Date End Date Toyin Pollard FNP 230 [place] [address] PCP - General Family Medicine 01/11/21 Satish Brennan MD [address] [place] [address] Endocrinology 02/22/24 Jacob Morrow 5 [place] [address] Pulmonary Disease 02/22/24 Nicolasa Escobar MD [address] [place] [address] Dr [address] [place] [address] Neurology 02/22/24 Shen Davis MD [address] [place] [address] Nephrology 02/22/24 Ellyn Connolly Backup OperatorPackage Sealer Machine 08/17/23 [facility] 01/11/24 01/21/24 [facility] 01/11/24 08/07/24 [employer] 08/14/24 documented as of this encounter
--- OUTSIDE RECORDS SUMMARY | 2025-03-19 10:56 | XMS_ITS | Encounter Summary ---
Author Organization [employer] Address 75 [facility] 7t [place] [address] Care Team Providers Care Wraparound Facilitator Name Role Phone Toyin Pollard Primary Care Provider Satish Brennan MD Unavailable Jacob Morrow Unavailable [phone] Nicolasa Escobar MD Unavailable Shen Davis MD Unavailable [phone] Reason for Visit * Reason Onset Date Comments Call Back Request 08/14/2024 Encounter Details Date Type Department Care Team (Late st Contact Info) Description 08/14/2024 Telephone [facility] MEDICINE 230 [place], [place] [phone] Toyin Pollard FNP 505 [place], [place] [phone] Call Back Request Social History Tobacco Use Types Packs/Day Years [...] encounter Miscellaneous Notes * Telephone Encounter - Lynne Flaherty - 08/14/2024 2:20 PM EDT Tc from [facility] to report pt missed physical therapy today. They're going to start 1 to 3 time a weeks mcc. Please contact [phone] To clarify info regarding Oxygen. documented in this encounter Plan of Treatment Upcoming Encounters Date Type Department Care Team ([facility] st Contact Info) Description 05/19/2025 11:00 AM EST Telemedicine [facility] MED & PEDS 505 [place] [address] Margret Hector, MINA 505 [place] [address] documented as of this encounter Goals Goal [...] documented as of this encounter Care Teams Wraparound Facilitator Relationship Specialty Start Date End Date Toyin Pollard FNP 230 [place] [address] PCP - General Family Medicine 01/11/21 Satish Brennan MD [address] [place] [address] Endocrinology 02/22/24 Jacob Morrow 5 [place] [address] Pulmonary Disease 02/22/24 Nicolasa Escobar MD [address] [place] [address] [address] Neurology 02/22/24 Shen Davis MD [address] [place] [address] Nephrology 02/22/24 Ellyn Connolly Repair WelderDelivery Stock Clerk 08/17/23 [employer] 08/14/24 documented as of this encounter
--- OUTSIDE RECORDS SUMMARY | 2025-03-19 10:56 | XMS_ITS | Encounter Summary ---
Author Organization [employer] Address 75 [facility] 7t [place] [address] Care Team Providers Care Watch Crystal Cutter Name Role Phone Toyin Pollard Primary Care Provider [phone] Satish Brennan MD Unavailable [phone] Jacob Morrow Unavailable [phone] Nicolasa Escobar MD Unavailable Shen Davis MD Unavailable [phone] Reason for Visit * Reason Onset Date Comments Hospital Follow-up 09/19/2022 Encounter Details Date Type Department Care Team (Late st Contact Info) Description 09/19/2022 Telephone [facility] MEDICINE 230 [place] [address] Toyin Pollard FNP [address] [place], [place] [phone] Hospital Follow-up Social History Tobacco Use Types [...] a HDF appt. Pt was admitted at [facility] on 09/08/22 and discharged on 09/16/22. Pt was diagnosed with pneumonia. Please contact dionisio at [phone] documented in this encounter Plan of Treatment Upcoming Encounters Date Type Department Care Team (Late st Contact Info) Description 05/19/2025 11:00 AM EST Telemedicine [facility] MED & PEDS 505 [place] [address] Margret Hector, MINA 505 [place] [address] documented as of this encounter Visit Diagnoses Not on filedocumented in this encounter Care Teams Watch Crystal Cutter Relationship Specialty Start Date End Date Toyin Pollard FNP 230 [place] [address] PCP - General Family Medicine 01/11/21 Satish Brennan MD [address] [place] [address] Endocrinology 02/22/24 Jacob Morrow 5 [place] [address] Pulmonary Disease 02/22/24 Nicolasa Escobar MD [address] [place] [address] Dr [address] [place] [address] Neurology 02/22/24 Shen Davis MD [address] [place] [address] Nephrology 02/22/24 Ellyn Connolly Broiler SupervisorDirector Of Rehabilitation 08/17/23 [facility] 01/11/24 01/21/24 [facility] 01/11/24 08/07/24 [employer] 08/14/24 documented as of this encounter
--- OUTSIDE RECORDS SUMMARY | 2025-03-19 10:56 | XMS_ITS | Encounter Summary ---
Author Organization [employer] Address [address] [facility] 7t [place] [address] Care Team Providers Care Coating Machine Operator Helper Name Role Phone Toyin Pollard Primary Care Provider [phone] Satish Brennan MD Unavailable Jacob Morrow Unavailable [phone] Nicolasa Escobra MD Unavailable Shen Davis MD Unavailable [phone] Reason for Visit * Reason Onset Date Comments transportation 02/07/2025 Encounter Details Date Type Department Care Team ([facility] Contact Info) Description 02/07/2025 Telephone [facility] MED & PEDS [address] [place], [place] [phone] Toyin Pollard FNP 505 [place], [place] [phone] transportation Social History Tobacco Use Types Packs/Day [...] Recorded Patient Health Questionnaire-2 Score 4 08/02/2023 Internet Access Answer Date Recorded Internet Access Q1 Yes 11/08/2024 Internet Access Q2 Not on file 11/08/2024 Comments Unknown Sex and Gender Information Value Date Recorded Sex Assigned at Female 01/17/2022 10:36 AM EDT Legal Sex Female 10:36 AM EDT Gender Identity Female 01/17/2022 10:36 AM EDT Sexual Orientation Straight 01/17/2022 10 :36 AM EDT documented as of this encounter Miscellaneous Notes * Telephone Encounter - Ced Morrow - 02/11/2025 10:24 AM EST Tc from [place] with [facility] calling in regards to message prior to set up pt with transportation. * Telephone Encounter - Traci Null - 02/07/2025 2:59 PM EST Tc from pt requesting to set up [facility] to pick her up for apt scheduled on 03/19 Contact pt at [phone] (german) documented in this encounter Plan of Treatment Upcoming Encounters Date Type Department Care Team ([facility] st Contact Info) Description 05/19/2025 11:00 AM EST Telemedicine [facility] MED & PEDS 505 [place] [address] Margret Hector RN 505 [place] [address] documented as of this encounter Goals Goal Patient Goal Type Associated Problems Recent Progress Patient-Stated? Author Hemoglobin A1c < 7 Result Component 5.9( 5 9:46 AM EST) No Michelle Alegria PharmD Help patients manage their type 2 [...] has chronic kidney disease No Ellyn Mckeon PharmPhyllis Patient has chronic kidney disease Care Plan Patient has chronic kidney disease No Ellyn Mckeon, PharmPhyllis Weekly blood pressure task Care Plan Weekly blood pressure task No Adina Conti RN Weekly blood pressure task Care Plan Weekly blood pressure task No Adina Conti, MINA Patient has chronic kidney disease Care Plan Patient has chronic kidney disease No Adina Conti RN Patient has chronic kidney disease Care Plan Patient has chronic kidney disease No Adina Conti, MINA Weekly blood pressure task Care Plan Weekly [...] has chronic kidney disease No Traci Jackson documented as of this encounter Visit Diagnoses Not on filedocumented in this encounter Additional Health Concerns Active [...] 02/07/2025 Patient has chronic kidney disease 02/07/2025 Assessment Noted Time PHQ-9 Depression Total Score: 13 024 4:37 PM EDT documented as of this encounter Care Teams Coating Machine Operator Helper Relationship Specialty Start Date End Date Toyin Pollard FNP [address] [place] [address] PCP - General Family Medicine 01/11/21 Satish Brennan MD [address] [place] [address] Endocrinology 02/22/24 Jacob Morrow 5 [place] [address] Pulmonary Disease 02/22/24 Nicolasa Escobar MD [address] [place] [address] [place] [address] Neurology 02/22/24 Shen Davis MD [address] [place] [address] Nephrology 02/22/24 Ellyn Connolly Production ExpertDirector Of Operations For Therapy 08/17/23 [employer] 08/14/24 documented as of this encounter
--- OUTSIDE RECORDS SUMMARY | 2025-03-19 10:56 | XMS_ITS | Encounter Summary ---
Author Organization [employer] Address [address] [facility] 7t [place] [address] Care Team Providers Care Infant And Toddler Teacher Name Role Phone Toyin Pollard Primary Care Provider [phone] Satish Brennan MD Unavailable Jacob Morrow Unavailable [phone] Nicolasa Escobar MD Unavailable Shen Davis MD Unavailable [phone] Reason for Visit * Reason Onset Date Comments PT1 10/04/2022 Encounter Details Date Type Department Care Team (Late st Contact Info) Description 10/04/2022 Telephone [facility] MEDICINE 230 [place] [address] Toyin Pollard FNP 505 [place], [place] [phone] PT1 Social History Tobacco Use Types Packs/Day [...] Miscellaneous Notes * Telephone Encounter - Nabila Cotni - 10/07/2022 10:48 AM EDT PT 1 Initiated member will receive a letter from with instructions. * Telephone Encounter - Hemalatha Mily - 10/04/2022 12:12 PM EDT TC [facility] from [facility] home [facility] requesting a pt1 to Location:[address] [place] [address] [address] [place] [address] Specialty: MRI Date&Time: 10/11/22 @ 9am Rope Maker: n/a Pt does uses a scooter documented in this encounter Plan of Treatment Upcoming Encounters Date Type Department Care Team ([facility] st Contact Info) Description 05/19/2025 11:00 AM EST Telemedicine [facility] MED & PEDS 505 [place] [address] Margret Hector RN 505 [place] [address] documented as of this encounter Visit Diagnoses Not on filedocumented in this encounter Additional Health Concerns Assessment Noted Time PHQ-9 Depression Total Score: 0 09/29/19 23 2:03 PM EDT documented as of this encounter Care Teams Infant And Toddler Teacher Relationship Specialty Start Date End Date Toyin Pollard FNP 230 [place] [address] PCP - General Family Medicine 01/11/21 Satish Brennan MD [address] [place] [address] Endocrinology 02/22/24 Jacob Morrow 5 [place] [address] Pulmonary Disease 02/22/24 Nicolasa Escobar MD [address] [place] [address] [address] Neurology 02/22/24 Shen Davis MD [address] [place] [address] Nephrology 02/22/24 Ellyn Connolly Weather ClerkSkin Carver 08/17/23 [facility] 01/11/24 01/21/24 [facility] 01/11/24 08/07/24 [facility] 08/14/24 documented as of this encounter
--- OUTSIDE RECORDS SUMMARY | 2025-03-19 10:56 | XMS_ITS | Encounter Summary ---
Author Organization [employer] [employer] Address [address] [facility] 7t [place] [address] Care Team Providers Care Cuffer Name Role Phone Toyin Pollard Primary Care Provider Satish Brennan MD Unavailable Jacob Morrow Unavailable [phone] Nioclasa Escobar MD Unavailable Shen Davis MD Unavailable [phone] Reason for Visit * Reason Onset Date Comments PT1 01/30/2023 Encounter Details Date Type Department Care Team (Late st Contact Info) Description 01/30/2023 Telephone [facility] MEDICINE 230 [place], [place] [phone] Toyin Pollard FNP 505 [place], [place] [phone] PT1 Social History Tobacco Use Types Packs/Day [...] in the mail. * Telephone Encounter - Pniky Wallis - 01/30/2023 4:01 PM EST Tc from pt requesting PT1 transportation. Date: 03/27/2022 Time: 8:30 Visits: 5 Address: [address] [place] [id number] Facility: [facility] Wheel Chair: Scooter and O2 Dental Professional Needed: Yes 1 documented in this encounter Plan of Treatment Upcoming Encounters Date Type Department Care Team (Late st Contact Info) Description 05/19/2025 11:00 AM EST Telemedicine [facility] MED & PEDS 505 [place] [address] Margret Hector, MINA 505 [place], [place] documented as of this encounter Goals [...] documented as of this encounter Care Teams Cuffer Relationship Specialty Start Date End Date Toyin Pollard FNP 230 [place] [address] PCP - General Family Medicine 01/11/21 Satish Brennan MD [address] [place] [address] Endocrinology 02/22/24 Jacob Morrow 5 [place] [address] Pulmonary Disease 02/22/24 Nicolasa Escobar MD [address] [place] [address] Dr Kameron [address] [place] [address] Neurology 02/22/24 Shen Davis MD [address] [place] [address] Nephrology 02/22/24 Ellyn Connolly Bilingual Call Center RepresentativeCotton Jammer 08/17/23 [facility] 01/11/24 01/21/24 [facility] 01/11/24 08/07/24 [employer] 08/14/24 documented as of this encounter
--- OUTSIDE RECORDS SUMMARY | 2025-03-19 10:56 | XMS_ITS | Encounter Summary ---
Author Organization [employer] Address [address] [facility] 7t [place] [address] Care Team Providers Care Ceramic Maker Demonstrator Name Role Phone Toyin Pollard LOUIE Primary Care Provider Satish Brennan MD Unavailable [phone] Jacob Morrow Unavailable [phone] Nicolasa Escobar MD Unavailable Shen Davis MD Unavailable [phone] Encounter Details Date Type Department Care Team (Late Contact Info) Description 05/23/2022 Orders Only [facility] MED & PEDS [address] [place] [address] Ellyn Chery LPN Social History Tobacco Use [...] 05/19/2025 11:00 AM EST Telemedicine [facility] MED & PEDS 505 [place] [address] Margret Hector, MINA 505 [place] [address] documented as of this encounter Visit Diagnoses Not on filedocumented in this encounter Care Teams Ceramic Maker Demonstrator Relationship Specialty Start Date End Date Toyin Pollard FNP 230 [place] [address] PCP - General Family Medicine 01/11/21 Satish Brennan MD [address] [place] [address] Endocrinology 02/22/24 Jacob Morrow 5 [place] [address] Pulmonary Disease 02/22/24 Nicolasa Escobar MD [address] [place] [address] [place] [address] Neurology 02/22/24 Shen Davis MD [address] [place] [address] Nephrology 02/22/24 Ellyn Connolly Board FillerChristmas Tree Grower 08/17/23 [facility] 01/11/24 01/21/24 [facility] 01/11/24 08/07/24 [employer] [facility] 08/14/24 documented as of this encounter
--- OUTSIDE RECORDS SUMMARY | 2025-03-19 10:56 | XMS_ITS | Clinical Summary ---
Author Organization [facility] Address [address] [facility] [address] [place] [address] Phone Care Team Providers Care International Logistics Analyst Name Role Phone Becka Osman MD Primary Care Provider [phone] Allergies Active Allergy Reactions Criticality Noted Date Comments Haloperidol 12/28/2023 Latex 12/28/2023 Metformin 12/28/2023 Tetracycline 12/28/2023 Medications QUEtiapine (SEROQUEL) 300 MG tablet Take 300 mg by mouth nightly at bedtime. 4 Active QUEtiapine (SEROQUEL) 100 MG tablet Take 100 mg by mouth as needed (anxiety). 4 Active divalproex (DEPAKOTE) [address] tablet Take 750 mg by mouth 2 (two) times a day. 4 Active levothyroxine (SYNTHROID, LEVOTHROID) 150 MCG tablet Take 150 mcg by mouth every morning. 4 Active multivit-min/iro n/folic acid/K (ADULTS MULTIVITAMIN ORAL) Take 1 tablet by mouth daily. 4 Active amitriptyline (ELAVIL) 10 MG tablet Take 10 mg by mouth nightly at bedtime. 4 Active lisinopril (PRINIVIL,ZESTRI L) 10 MG tablet Take 10 mg by mouth daily. 4 Active benztropine (COGENTIN) 1 MG tablet Take 1 mg by mouth 2 (two) times a day. 4 Active montelukast (SINGULAIR) 10 mg tablet Take 10 mg by mouth nightly at bedtime. 4 Active furosemide (LASIX) 40 MG tablet Take 40 mg by mouth daily. 4 Active prazosin (MINIPRESS) 5 MG capsule Take 5 mg by mouth nightly at bedtime. 4 Active folic acid (FOLVITE) 1 MG tablet Take 1 mg by mouth daily. 4 Active atenolol (TENORMIN) 50 mg tablet Take 50 mg by mouth daily. 4 Active melatonin 5 mg Tab Take 10 mg by mouth nightly at bedtime. 4 Active lurasidone (LATUDA) 60 mg tablet Take 60 mg by mouth daily with dinner. Active docusate (COLACE) 100 mg tablet Take 100 mg by mouth 2 (two) times a day as needed for mild constipation. 4 Active alendronate (FOSAMAX) 70 MG tablet Take 70 mg by mouth every 7 days. Active hydrOXYzine (ATARAX) 50 MG tablet Take 50 mg by mouth 3 (three) times a day as needed for anxiety. 1-2 tabs tid prn anxiety 4 Active fluticasone propionate (FLONASE) 50 mcg/actuation nasal spray 1 spray by Nasal route as needed for allergies or rhinitis. 4 Active diclofenac sodium (VOLTAREN) 1 % Gel Apply 2 g topically 2 (two) times a day. Active lidocaine (LIDODERM) 5 % Place 1 patch onto the skin daily. 4 Active acetaminophen (TYLENOL) 500 MG tablet Take 500 mg by mouth every 6 (six) hours as needed for pain (specific location in comments). 4 Active prazosin (MINIPRESS) 1 MG capsule Take 1 mg by mouth nightly at bedtime. with 5mg to equal 6mg Active cetirizine (ZYRTEC) 10 MG tablet Take 10 mg by mouth as needed for allergies or rhinitis. 4 Active atorvastatin (LIPITOR) 40 MG tablet Take 40 mg by mouth daily. 4 Active tirzepatide (MOUNJARO) 7.5 mg/0.5 mL PnIj subcutaneous pen Inject 7.5 mg under the skin every 7 days. monthly 4 Active rimegepant (NURTEC) 75 mg tablet Take 75 mg by mouth once as needed for migraine. Active nystatin ointment Apply 1 Application topically 2 (two) times a day. Active ammonium lactate (LAC-HYDRIN) 12 % lotion Apply 1 Application topically as needed for dry skin. Active LORazepam (ATIVAN) 1 MG tablet Take 1 mg by mouth as needed for anxiety. Active albuterol (VENTOLIN HFA) 90 mcg/actuation inhaler Inhale 2 puffs into the lungs every 4 (four) hours as needed for shortness of breath/dyspnea or wheezing. Active insulin glargine U-300 conc 300 unit/mL (3 mL) InPn Inject 70 Units under the skin daily. Active naproxen (NAPROSYN) 500 MG tablet Take 500 mg by mouth 2 (two) times a day. Active topiramate (TOPAMAX) 50 MG tablet Take 50 mg by mouth daily. Active traMADoL (ULTRAM) 50 mg tablet Take 50 mg by mouth 2 (two) times a day as needed for pain (specific location in comments). Active cholecalciferol (VITAMIN D3) 2,000 unit capsule Take 2,000 Units by mouth daily. Active budesonide-glyco pyr-formoterol (BREZTRI AEROSPHERE) 160-9-4.8 mcg/actuation inhaler Inhale 2 puffs into the lungs 2 (two) times a day. Active insulin lispro (ADMELOG, HUMALOG) 100 unit/mL injection pen Inject 30 Units under the skin 3 (three) times a day with meals. Active Social History Tobacco Use Types Packs/Day Years Used Date Smoking Tobacco: Never Assessed Home Health Assessment: Transportation Answer Date Recorded Lack of Transportation (Medical) Yes 01/11/2024 Lack of Transportation (Non-Medical) Yes 01/11/2024 Patient Unable or Declines to Respond No 01/11/2024 Education Answer Date Recorded Are you interested in more education? Not on osbaldo e 12/25/2023 Are you concerned about learning? Not on file 12/25/2023 No 12/25/2023 No 12/25/2023 Digital Access Answer Date Recorded No 12/25/2023 No 12/25/2023 Reliable internet access at home? Not on file 12/25/2023 Device with a working camera? Not on file Comments Unknown Sex and Gender Information Value Date Recorded Sex Assigned at Not on file Legal Sex Female 11:46 AM EDT Gender Identity Not on file Sexual Orientation Not on file Last Filed Vital Signs Vital Sign Reading Time Taken Comments Blood Pressure 140/68 12/27/2023 12:46 PM EDT Pulse 90 12/27/2023 12:46 PM EDT Temperature 36.7 C (98.1 F) 12/27/2023 12:46 PM EDT Respiratory Rate 22 12/27/2023 12:46 PM EDT Oxygen Saturation 92% 12/27/2023 12:46 PM EDT Inhaled Oxygen Concentration - - Weight - - Height - - Body Mass Index - - Plan of Treatment Health Maintenance Due Date Last Done Comments TSH LEVEL 1971 VALPROIC ACID (DEPAKENE) LEVEL 1971 DEPRESSION SCREENING 1983 SMOKING Hx and SMOKELESS TOBACCO SCREENING 02/17/1984 HEPATITIS C SCREENING 1989 HIV ONE-TIME SCREENING (18-65 YEARS) 1989 PAP SMEAR 02/17/1992 COLOGUARD 02/17/2016 COLONOSCOPY 02/17/2016 COLORECTAL CANCER SCREENING 02/17/2016 FIT TEST 02/17/2016 FOBT 02/17/2016 SIGMOIDOSCOPY 02/17/2016 VIRTUAL COLONOSCOPY 02/17/2016 ZOSTER VACCINES (1 of 2) 2021 PNEUMOCOCCAL VACCINES (50+ years) (2 of 2 - PCV) 02/18/2021 02/19/2020 CREATININE LEVEL 04/29/2022 04/29/2021, 08/2020, 03/17/2020, Additional history exists POTASSIUM LEVEL 04/29/2022 04/29/2021, 01/0 08/2020, 03/17/2020, Additional history exists MAMMOGRAM 05/27/2022 05/27/2020, 02/21/2019 INFLUENZA VACCINE (#1) 2024 02/19/2020 COVID-19 VACCINE ( season) 2024 11/20/2020 LIPID PANEL 07/16/2028 07/17/2023 Adult Td,Tdap Booster 02/18/2030 02/19/2020 RSV VACCINE (1 - 1-dose 75+ series) 2046 HEPATITIS A VACCINES Aged Out No long er eligible based on patient's age to complete this topic HIB VACCINES Aged Out No longer eligi ble based on patient's age to complete this topic MENINGOCOCCAL VACCINES (ACWY) Aged Out No longer eligible based on patient's age to complete this topic MENINGOCOCCAL VACCINES (B) Aged Out N o longer eligible based on patient's age to complete this topic Medical Devices Not on file Procedures Procedure Name Priority Date/Time Associated Diagnosis Comments COMPREHENSIVE METABOLIC PANEL (CMP) Routine 04/29/2021 7:37 AM EST Diagnosis unknown from Last 3 Months or Most Recently Relevant to Health Maintenance Results * (ABNORMAL) Comprehensive metabolic panel (04/29/2021 7:37 AM EST) SODIUM 133 133 - 146 mmol/L [facility] POTASSIUM 5.1 3.3 - 5.1 mmol/L [facility] CHLORIDE 89(L) 96 - 108 mmol/L [facility] CO2 33 21 - 35 mmol/L [facility] BUN 23(H) 6 - 19 mg/dL [facility] CREATININE 1.30 0.5 - 1.5 mg/dL [facility] GLUCOSE 402(H) 70 - 99 mg/dL [facility] ALBUMIN 3.6(L) 3.9 - 4.8 g/dL [facility] TOTAL PROTEIN 6.1(L) 6.5 - 8.0 g/dL [facility] CALCIUM 9.5 8.4 - 10.3 mg/dL [facility] ALKALINE PHOSPHATASE 70 39 - 117 U/L [facility] TOTAL BILIRUBIN 0.2 0.0 - 1.2 mg/dL [facility] AST 8 0 - 37 U/L [facility] ALT 11 0 - 40 U/L [facility] GLOBULIN 2.5 1 - 4.8 g/dL [facility] EGFR 50(L) >59 mL/min/1.7 3m2 [facility] Comment:Estimated glomerular filtration rate calculated using the CKD-EPI refit equation. ANION GAP 16 10 - 20 mmol/L [facility] Blood 04/29/2021 7:37 AM EST 04/29/2021 7:39 AM EST us Cooper Goodson MD LAB BLOOD BKR ORDERABLES Final R esult [facility] [address] [place] [address] from Last 3 Months or Most Recently Relevant to Health Maintenance Insurance [facility] C3 ACO [facility] Member Subscriber Plan / Payer (Ef fective for All Dates) Name:Kvng Lopez Relation to Subscriber:Self Name:Kvng Lopez Payer ID:[id number] Group ID:Not on file Type:Medicaid Address: [address] [facility] C3 ACO Member Subscriber Plan / Payer (Ef fective 2023-Present) Name:Kvng Lopez Relation to Subscriber:Self Name:Kvng Lopez Payer ID:[id number] Group ID:Not on file Type:Medicaid Address: [address] [place] Member Subscriber Plan / Payer (Ef fective for All Dates) Name:Kvng Lopez Relation to Subscriber:Self Name:Kvng Lopez Payer ID:[id number] Group ID:Not on file Type:Medicaid Address: [address] [facility] C3 ACO Member Subscriber Plan / Payer (Ef fective 2023-Present) Name:Kvng Lopez Relation to Subscriber:Self Name:Kvng Loepz Payer ID:[id number] Group ID:Not on file Type:Medicaid Address: [address] [place] Member Subscriber Plan / Payer (Ef fective for All Dates) Name:Kvng Lopez Relation to Subscriber:Self Name:Kvng Lopez Payer ID:[id number] Group ID:Not on file Type:Medicaid Address: [address] [facility] C3 [employer] Care Teams International Logistics Analyst Relationship Specialty Start Date End Date Becka Osman MD [address] [place] [address] PCP - General Family Medicine 03/09/20 Additional Source Comments The information contained in this document represents components of the legal health record. It is not the complete legal health record.[facility]
--- OUTSIDE RECORDS SUMMARY | 2025-03-19 10:56 | XMS_ITS | Encounter Summary ---
Author Organization [employer] Address [address] [facility] 7t [place] [address] Care Team Providers Care Emergency Worker Name Role Phone Toyin Pollard Primary Care Provider Satish Brennan MD Unavailable Jacob Morrow Unavailable [phone] Nicolasa Escobar MD Unavailable Shen Davis MD Unavailable [phone] Reason for Visit * Reason Onset Date Comments PT1 08/19/2022 Encounter Details Date Type Department Care Team (Late st Contact Info) Description 08/19/2022 Telephone [facility] MEDICINE [address] [place] [address] Toyin Pollard FNP [address] [place], [place] [phone] PT1 Social History Tobacco Use Types Packs/Day [...] has correct home address but transportation doesn't. Field Installation Technician is resubmitting PT1. PT1 Date: Time: address:[address] [facility] specialty:PCP # visits: computer security coordinator: yes Wheelchair: yes PT1 Date: Time: address: [address] [facility] specialty: Academic Affairs Manager # visits: computer security coordinator:yes Wheelchair:yes PT1 Date: Time: address: [address] [facility] specialty: Food Service Worker Hospital/ Diabetes # visits: computer security coordinator:yes Wheelchair:yes PT1 Date: Time: address:[address] [facility] specialty: Speech and hearing # visits: computer security coordinator:yes Wheelchair:yes documented in this encounter Plan of Treatment Upcoming Encounters Date Type Department Care Team (Late st Contact Info) Description 05/19/2025 11:00 AM EST Telemedicine [facility] MED & PEDS [address] [place] [address] Margret Hector RN 505 [place] [address] documented as of this encounter Visit Diagnoses Not on filedocumented in this encounter Care Teams Emergency Worker Relationship Specialty Start Date End Date Toyin Pollard FNP [address] [place] [address] PCP - General Family Medicine 01/11/21 Satish Brennan MD [address] [place] [address] Endocrinology 02/22/24 Jacob Morrow [address] [place] [address] Pulmonary Disease 02/22/24 Nicolasa Escobar MD [address] [place] [address] [place] [address] Neurology 02/22/24 Shen Davis MD [address] [place] [address] Nephrology 02/22/24 Ellyn Connolly Contract AssociateResearch Attorney 08/17/23 [facility] 01/11/24 01/21/24 [facility] 01/11/24 08/07/24 [facility] 08/14/24 documented as of this encounter
--- OUTSIDE RECORDS SUMMARY | 2025-03-19 10:56 | XMS_ITS | Encounter Summary ---
Author Organization [employer] Address [address] [facility] 7t [place] [address] Care Team Providers Care Gun Stocker Name Role Phone Toyin Pollard Primary Care Provider Satish Brennan MD Unavailable [phone] Jacob Morrow Unavailable [phone] Nicolasa Escobar MD Unavailable [phone] Shen Davis MD Unavailable [phone] Encounter Details Date Type Department Care Team (Late st Contact Info) Description 09/12/2022 Orders Only [facility] 230 [place] [address] Patrica Grimaldo LPN Social History Tobacco Use [...] Info) Description 05/19/2025 11:00 AM EST Telemedicine [facility] 505 [place] [address] Margret Hector, MINA 505 [place] [address] documented as of this encounter Visit Diagnoses Not on filedocumented in this encounter Care Teams Gun Stocker Relationship Specialty Start Date End Date Toyin Pollard FNP [address] [place] [address] PCP - General Family Medicine 01/11/21 Satish Brennan MD [address] [place] [address] Endocrinology 02/22/24 Jacob Morrow [address] [place] [address] Pulmonary Disease 02/22/24 iNcolasa Escobar MD [address] [facility] 140 [place] [address] Neurology 02/22/24 Shen Davis MD [address] [place] [address] Nephrology 02/22/24 Ellyn Cononlly Ore Storage DrierRisk Advisor 08/17/23 [facility] 01/11/24 01/21/24 [facility] 01/11/24 08/07/24 [employer] 08/14/24 documented as of this encounter
--- OUTSIDE RECORDS SUMMARY | 2025-03-19 10:56 | XMS_ITS | Encounter Summary ---
Author Organization [employer] Address [address] [facility] 7t [place] [address] Care Team Providers Care Loading And Unloading Supervisor Name Role Phone Toyin Pollard Primary Care Provider [phone] Satish Brennan MD Unavailable Jacob Morrow Unavailable [phone] Nicolasa Escobar MD Unavailable Shen Davis MD Unavailable [phone] Reason for Visit * Reason Onset Date Comments Durable Medical Equipment 07/06/2022 Encounter Details Date Type Department Care Team (Late st Contact Info) Description 07/06/2022 Telephone [facility] 230 [place] [address] Toyin Pollard FNP 505 [place], [place] [id number] Durable Medical Equipment Social History Tobacco Use [...] Description 05/19/2025 11:00 AM EST Telemedicine [facility]EDS 505 [place] [address] Margret Hector, RN [address] [place] [address] documented as of this encounter Visit Diagnoses Not on filedocumented in this encounter Care Teams Loading And Unloading Supervisor Relationship Specialty Start Date End Date Toyin Pollard FNP 230 [place] [address] PCP - General Family Medicine 01/11/21 Satish Brennan MD [address] [place] [address] Endocrinology 02/22/24 Jacob Morrow 5 [place] [address] Pulmonary Disease 02/22/24 Nicolasa Escobar MD [address] [place] [address] Dr [facility] 140 [place] [address] Neurology 02/22/24 Shen Davis MD [address] [place] [address] Nephrology 02/22/24 Ellyn Connolly Rail LoaderEnvironmental Remediation Engineer 08/17/23 [facility] 01/11/24 01/21/24 [facility] 01/11/24 08/07/24 [employer] 08/14/24 documented as of this encounter
--- OUTSIDE RECORDS SUMMARY | 2025-03-19 10:56 | XMS_ITS | Encounter Summary ---
Author Organization [employer] Address [address] [facility] 7t [place] [address] Care Team Providers Care Vp Product Name Role Phone Toyin Pollard Primary Care Provider Satish Brennan MD Unavailable [phone] Jacob Morrow Unavailable [phone] Nicolasa Escobar MD Unavailable [phone] Shen Davis MD Unavailable [phone] Reason for Visit * Reason Onset Date Comments Hospital Follow-up 11/06/2023 Encounter Details Date Type Department Care Team (Late st Contact Info) Description 11/06/2023 Telephone [facility] MED[facility] 230 [place], [place] [phone] Toyin Pollard FNP [address] [place], [place] [id number] Hospital Follow-up Social History Tobacco Use Types [...] AM EDT Tc from pt requesting a HDF appt. Hospital: [facility] Date of admission: 10/25 Discharge date: 11/03 Diagnosed: Ankle injury documented in this encounter Plan of Treatment Upcoming Encounters Date Type Department Care Team (Late st Contact Info) Description 05/19/2025 11:00 AM EST Telemedicine [facility] P[facility] 505 [place] [address] Margret Hector, MINA 505 [place] [address] documented as of this encounter Goals Goal [...] as of this encounter Care Teams Vp Product Relationship Specialty Start Date End Date AtulJohnLOUIE yuen 230 [place] [address] PCP - General Family Medicine 01/11/21 Satish Bernnan MD [address] [place] [address] Endocrinology 02/22/24 Jacob Morrow 5 [place] [address] Pulmonary Disease 02/22/24 Nicolasa Escobar MD [address] [place] [address] Neurology 02/22/24 Shen Davis MD [address] [place] [address] Nephrology 02/22/24 Ellyn Connolly Accounts SpecialistElectroplater Apprentice 08/17/23 [facility] 01/11/24 01/21/24 [facility] 01/11/24 08/07/24 [employer] 08/14/24 documented as of this encounter
--- OUTSIDE RECORDS SUMMARY | 2025-03-19 10:56 | XMS_ITS | Encounter Summary ---
Author Organization [employer] Address [address] [facility] 7t [place] [address] Care Team Providers Care Block Sorter Name Role Phone Toyin Pollard Primary Care Provider [phone] Satish Brennan MD Unavailable [phone] Jacob Morrow Unavailable [phone] Nicolasa Escobar MD Unavailable Shen Davis MD Unavailable [phone] Reason for Visit * Reason Onset Date Comments PT1 11/02/2022 Encounter Details Date Type Department Care Team (Late st Contact Info) Description 11/02/2022 Telephone [facility] MEDICINE 230 [place] [address] Toyin Pollard FNP 505 [place], [place] [phone] PT1 Social History Tobacco Use Types Packs/Day [...] with better life requesting a PT1 Location: [facility] Specialty: Provider or clinic appts Date&Time:n/A Cellular Tower Climber:N/a documented in this encounter Plan of Treatment Upcoming Encounters Date Type Department Care Team (Late st Contact Info) Description 05/19/2025 11:00 AM EST Telemedicine [facility]S 505 [place] [address] Margret Hector, RN 505 [place] [address] documented as of this encounter Visit Diagnoses Not on filedocumented in this encounter Additional Health Concerns Assessment Noted Time PHQ-9 Depression Total Score: 0 09/29/19 23 2:03 PM EDT documented as of this encounter Care Teams Block Sorter Relationship Specialty Start Date End Date Toyin Pollard FNP 230 [place] [address] PCP - General Family Medicine 01/11/21 Satish Brennan MD [address] [place] [address] Endocrinology 02/22/24 Jacob Morrow 5 [place] [address] Pulmonary Disease 02/22/24 Nicolasa Escobar MD [address] [place] [address] Dr [address] 140 [place] [address] Neurology 02/22/24 Shen Davis MD [address] [place] [address] Nephrology 02/22/24 Ellyn Connolly Beam Department SupervisorStation Inspector 08/17/23 [facility] 01/11/24 01/21/24 [facility] 01/11/24 08/07/24 [employer] 08/14/24 documented as of this encounter
--- OUTSIDE RECORDS SUMMARY | 2025-03-19 10:56 | XMS_ITS | Encounter Summary ---
Author Organization [employer] Address 75 [facility] 7t [place] [address] Care Team Providers Care Creel Clerk Name Role Phone Toyin Pollard LOUIE Primary Care Provider Satish Brennan MD Unavailable Jacob Morrow Unavailable [phone] Nicolasa Escobar MD Unavailable [phone] Shen Davis MD Unavailable [phone] Reason for Visit * Reason Comments Med Refill Encounter Details Date Type Department Care Team (Late st Contact Info) Description 08/21/2023 Refill [facility] 230 [place] [address] Agustina Toribio MD 230 [place] [address] Social History Tobacco Use Types Packs/Day Years [...] your housing situation today? I have cesar andersne 01/02/[address] you li [...] Description 05/19/2025 11:00 AM EST Telemedicine [facility] 505 [place] [address] Margret Hector, MINA 505 [place] [address] documented as of this encounter Goals Goal [...] documented as of this encounter Care Teams Creel Clerk Relationship Specialty Start Date End Date Toyin Pollard FNP 230 [place] [address] PCP - General Family Medicine 01/11/21 Satish Brennan MD [address] [place] [address] Endocrinology 02/22/24 Jacob Morrow [address] [place] [address] Pulmonary Disease 02/22/24 Nicolasa Escobar MD [address] [address] Neurology 02/22/24 Shen Davis MD [address] [place] [address] Nephrology 02/22/24 Ellyn Connolly Business Administration TeacherMixing Machine Tender 08/17/23 [facility] 01/11/24 01/21/24 [facility] 01/11/24 08/07/24 [email or web address] 08/14/24 documented as of this encounter
--- OUTSIDE RECORDS SUMMARY | 2025-03-19 10:57 | XMS_ITS | Encounter Summary ---
Author Organization [employer] Address 75 [facility] 7t [place] [address] Care Team Providers Care Keg Raiser Name Role Phone Toyin Pollard Primary Care Provider Satihs Brennan MD Unavailable [phone] Jacob Morrow Unavailable [phone] Nicolasa Escobar MD Unavailable Shen Davis MD Unavailable [phone] Encounter Details Date Type Department Care Team (Late st Contact Info) Description 04/26/[address] [facility] 230 [place] [address] Toyin Pollard FNP 505 [place] [address] Social History Tobacco Use Types Packs/Day Years [...] Info) Description 05/19/2025 11:[address] [facility]S 505 [place], [place] [phone] Margret Hector, RN 505 [place], [place] [phone] documented as of this encounter Visit Diagnoses Not on filedocumented in this encounter Care Teams Keg Raiser Relationship Specialty Start Date End Date Toyin PollardLOUIE 230 [place] [address] PCP - General Family Medicine 01/11/21 Satish Brennan MD [address] [place] [address] Endocrinology 02/22/24 Jacob Morrow 5 [place] [address] Pulmonary Disease 02/22/24 Nicolasa Escobar MD [address] [facility] [address] [facility] [address] [facility] 140 [place] [address] Neurology 02/22/24 Shen Davis MD [address] [place] [address] Nephrology 02/22/24 Ellyn Connolly Oil Processing TechnicianPaper Inserter 08/17/23 [facility] 01/11/24 01/21/24 [facility] 01/11/24 08/07/24 [employer] 08/14/24 documented as of this encounter
--- OUTSIDE RECORDS SUMMARY | 2025-03-19 10:57 | XMS_ITS | Encounter Summary ---
Author Organization [employer] Address [address] [place] [address] 7t [place] [address] Care Team Providers Care Sandstone Inspector Repairer Name Role Phone Toyin Pollard Primary Care Provider [phone] Satish Brennan MD Unavailable [phone] Jacob Morrow Unavailable [phone] Nicolasa Escobar MD Unavailable Shen Davis MD Unavailable [phone] Encounter Details Date Type Department Care Team (Late st Contact Info) Description 04/20/2022 Orders Only [facility] MED[facility]INE 230 [place] [address] Patrica Grimaldo LPN Social History Tobacco Use [...] 05/19/2025 11:00 AM EST Telemedicine [facility] PEDS 505 [place], [place] [phone] Margret Hector, MINA 505 [place] [address] documented as of this encounter Visit Diagnoses Not on filedocumented in this encounter Care Teams Sandstone Inspector Repairer Relationship Specialty Start Date End Date Toyin Pollard FNP 230 [place] [address] PCP - General Family Medicine 01/11/21 Satish Brennan MD [address] [place] [address] Endocrinology 02/22/24 Jacob Morrow 5 [place] [address] Pulmonary Disease 02/22/24 Nicolasa Escobar MD [address] [address] Neurology 02/22/24 Shen Davis MD [address] [place] [address] Nephrology 02/22/24 Ellyn Connolly Bladder TrimmerDirector Mobile Media [employer] 08/17/23 [facility] 01/11/24 01/21/24 [facility] 01/11/24 08/07/24 [employer] 08/14/24 documented as of this encounter
--- OUTSIDE RECORDS SUMMARY | 2025-03-19 10:57 | XMS_ITS | Encounter Summary ---
Author Organization [employer] Address [address] [facility] 7t [place] [address] Care Team Providers Care Dental Appliance Fixer Name Role Phone Toyin Pollard Primary Care Provider [phone] Satish Brennan MD Unavailable Jacob Morrow Unavailable [phone] Nicolasa Escobar MD Unavailable [phone] Shen Davis MD Unavailable [phone] Reason for Visit * Reason Onset Date Comments CHART PREP 03/17/2025 Encounter Details Date Type Department Care Team ([facility] st Contact Info) Description 03/17/2025 Telephone [facility] MED[facility]INE 230 [place] [address] Toyin Pollard FNP 505 [place], [place] [phone] CHART PREP Social History Tobacco Use Types Packs/Day Years [...] encounter Miscellaneous Notes * Telephone Encounter - Ambrocio Carcamo [place] - 03/17/2025 2:08 PM EST Chart Prep Labs: done Images: done Referrals: not applicable Vaccines due: Covid, Flu, Hep B, Hep A, and RSV Screenings: mammogram, pap smear, eye exam, and foot exam Overdue care gaps: A1c, Glucose, SBIRT, PHQ-9, JESSICA-7, Oral health screening, and Disability screen documented in this encounter Plan of Treatment Upcoming Encounters Date Type Department Care Team ([facility] st Contact Info) Description 05/19/2025 11:00 AM EST Telemedicine [facility] MED & PEDS 505 [place] [address] Margret Hector, RN 505 [place] [address] documented as of this encounter Goals Goal [...] chronic kidney disease No Adina Conti RN Weekly blood pressure [...] blood pressure task No Ellyn Chery LPN Patient has chronic kidney disease Care Plan Patient has chronic kidney disease No Ellyn Chery LPN Patient has chronic kidney disease Care Plan Patient has chronic kidney disease No Ellyn Chery LPN Weekly blood pressure [...] blood pressure task No Shira Lee LPN Patient has chronic kidney disease Care Plan Patient has chronic kidney disease No Shira Lee LPN Patient has chronic kidney disease Care [...] chronic kidney disease No Ambrocio Carcamo [place] documented as of this encounter Visit Diagnoses [...] 03/17/2025 Patient has chronic kidney disease 03/17/2025 Assessment Noted Time PHQ-9 Depression Total Score: 13 024 4:37 PM EDT documented as of this encounter Care Teams Dental Appliance Fixer Relationship Specialty Start Date End Date Toyin Pollard FNP [address] [place] [address] PCP - General Family Medicine 01/11/21 Satish Brennan MD [address] [place] [address] Endocrinology 02/22/24 Jacob Morrow [address] [place] [address] Pulmonary Disease 02/22/24 Nicolasa Escobar MD [address] [place] [address] [address] Neurology 02/22/24 Shen Davis MD [address] [place] [address] Nephrology 02/22/24 Ellyn Connolly Cutter Operator TileLibrary Technical Assistant 08/17/23 [employer] 08/14/24 documented as of this encounter
--- OUTSIDE RECORDS SUMMARY | 2025-03-19 10:57 | XMS_ITS | Encounter Summary ---
Author Organization [employer] Address [address] [facility] 7t [place] [address] Care Team Providers Care Adjunct Spanish Instructor Name Role Phone Toyin Pollard LOUIE Primary Care Provider [phone] Satish Brennan MD Unavailable [phone] Jacob Morrow Unavailable [phone] Nicolasa Escobar MD Unavailable Shen Davis MD Unavailable [phone] Encounter Details Date Type Department Care Team (Latest Contact Info) Description 03/19/2025 Travel Social History Tobacco Use Types Packs/Day [...] Upcoming Encounters Date Type Department Care Team ([facility] Contact Info) Description 05/19/2025 11:00 AM EST Telemedicine [facility] MED [facility] PEDS 505 [place] [address] Margret Hector RN 505 [place] [address] documented as of this encounter Goals Goal Patient Goal Type Associated Problems Recent Progress Patient-Stated? Author Hemoglobin A1c < 7 Result Component 5.9( 9:46 AM EST) No Michelle Alegria, PharmD Help patients manage their type 2 diabetes Care Plan Help patients manage their type 2 diabetes Manisha Hernandez MA Weekly blood pressure task Care Plan Weekly blood pressure task Manisha Hernandez MA Help patients manage their type 2 diabetes Care Plan Help patients manage their type 2 diabetes Manisha Hernandez MA Patient has chronic kidney disease Care Plan Patient has chronic kidney disease Manisha Hernandez MA Weekly blood pressure task Care Plan Weekly blood pressure task Manisha Hernandez MA Patient has chronic kidney disease Care Plan Patient has chronic kidney disease Manisha Hernandez MA Weekly blood pressure task Care Plan Weekly blood pressure task Manisha Hernandez MA Weekly blood pressure task Care Plan [...] Care Plan Weekly blood pressure task No Henna Ivoryr CAR HOPPER Patient has chronic kidney disease Care Plan Patient has chronic kidney disease No Mona Ivory LPN Patient has chronic kidney disease Care Plan Patient has chronic kidney disease No Mona Ivory LPN Weekly blood pressure task Care Plan Weekly blood pressure task No Mona Ivory LPN Weekly blood pressure task Care Plan Weekly blood pressure task No Mona Ivory CAR HOPPER Patient has chronic kidney disease Care Plan [...] Weekly blood pressure task No Ellyn Chery, CAR HOPPER Weekly blood pressure task Care Plan Weekly blood pressure task No Ellyn Chery, CAR HOPPER Patient has chronic kidney disease Care Plan Patient has chronic kidney disease No Ellyn Chery, CAR HOPPER Patient has chronic kidney disease Care Plan Patient has chronic kidney disease No Ellyn Chery, CAR HOPPER Weekly blood pressure task Care Plan Weekly blood pressure task No Mona Ivory CAR HOPPER Weekly blood pressure task Care Plan Weekly blood pressure task No Mona Ivory LPN Patient has chronic kidney disease Care Plan Patient has chronic kidney disease No Mona Ivory, CAR HOPPER Patient has chronic kidney disease Care Plan Patient has chronic kidney disease No Mona Ivory, CAR HOPPER Weekly blood pressure task Care Plan Weekly [...] Weekly blood pressure task No Shira Lee, VIVIAN Weekly blood pressure task Care Plan Weekly blood pressure task No Shira Lee, CAR HOPPER Patient has chronic kidney disease Care Plan Patient has chronic kidney disease No Shira Lee LPN Patient has chronic kidney disease Care Plan Patient has chronic kidney disease No Shira Lee, CAR HOPPER Weekly blood pressure task Care Plan Weekly [...] Weekly blood pressure task No Toyin Pollard FNP Weekly blood pressure task Care Plan Weekly blood pressure task No Toyin Pollard FNP Patient has chronic kidney disease Care Plan Patient has chronic kidney disease No Toyin Pollard FNP Patient has chronic kidney disease Care Plan Patient has chronic kidney disease No Toyin Pollard FNP documented as of this encounter Visit Diagnoses [...] documented as of this encounter Care Teams Adjunct Spanish Instructor Relationship Specialty Start Date End Date Toyin Pollard FNP [address] [place] [address] PCP - General Family Medicine 01/11/21 Satish Brennan MD [address] [place] [address] Endocrinology 02/22/24 Jacob Morrow 5 [place] [address] Pulmonary Disease 02/22/24 Nicolasa Escobar MD [address] [place] [address] [place] [address] Neurology 02/22/24 Shen Davis MD [address] [place] [address] Nephrology 02/22/24 Ellyn Connolly Athletic Events ScorerWeight Clerk 08/17/23 [employer] 08/14/24 documented as of this encounter
--- OUTSIDE RECORDS SUMMARY | 2025-03-19 10:57 | XMS_ITS | Encounter Summary ---
Author Organization [employer] Address [address] [facility] 7t [place] [address] Care Team Providers Care Grain Roaster Name Role Phone Toyin Pollard Primary Care Provider [phone] Satish Brennan MD Unavailable Jacob Morrow Unavailable [phone] Nicolasa Escobar MD Unavailable Shen Davis MD Unavailable [phone] Reason for Visit * Reason Onset Date Comments transportation 03/17/2025 Encounter Details Date Type Department Care Team ([facility] st Contact Info) Description 03/17/2025 Telephone [facility] MEDICINE [address] [place] [address] Toyin Pollard FNP 505 [place], [place] [phone] transportation Social History Tobacco Use Types Packs/Day [...] encounter Miscellaneous Notes * Telephone Encounter - Ivelisse Dumont RN - 03/17/2025 2:00 PM EST Received form. Filled out and faxed back to [facility] ambulance as bellow. Telephone call placed to pt. Informed ambulance all set to pick her up 03/19 at 8:30 to bring her to her appointment. Pt verbalized understanding and denied having any further questions or concerns at this time. * Telephone Encounter - Ivelisse Dumont RN - 03/17/2025 1:10 PM EST Pt's spouse Steve walked into [employer] lobby regarding below message. Informed I will contact the ambulance company to try to arrange transportation but going forward, please contact us at least 1 week prior to appointment date as sometimes the ambulance company doesn't have availability. Telephone call placed to [facility] ambulance. Spoke with Alejandra who states they are able to accommodatept. Informed of pt's most recent weight and oxygen needs. He stated they will set citrus picker time for 8:30am. I am awaiting fax from him to complete [facility] paperwork. * Telephone Encounter - Cooper Jerardo - 03/17/2025 9:15 AM EST Tc from pt reports needs Ambulance service transportation for upcomming Physical on 03/19 with MARY LOU Pollard at The [facility] location . *pt reports being bed bound . documented in this encounter Plan of Treatment Upcoming Encounters Date Type Department Care Team (Late st Contact Info) Description 05/19/2025 11:00 AM EST Telemedicine [facility] CHC MED & PEDS 505 [place] [address] Margret Hector RN 505 [place] [address] documented as of this encounter Goals Goal Patient Goal Type Associated Problems Recent Progress Patient-Stated? Author Hemoglobin A1c < 7 Result Component 5.9( 9:46 AM EST) Michelle Rodarte, PharmD Help patients manage their type 2 [...] Patient has chronic kidney disease No Manisha Rcoha [place] Weekly blood pressure task Care Plan [...] Care Plan Weekly blood pressure task No Cachorro Mona MANAGER MEDICARE Weekly blood pressure task Care Plan Weekly blood pressure task No Cachorro Mona, MANAGER MEDICARE Patient has chronic kidney disease Care Plan Patient has chronic kidney disease No Cachorro Mona MANAGER MEDICARE Patient has chronic kidney disease Care Plan Patient has chronic kidney disease No Cachorro Mona MANAGER MEDICARE Weekly blood pressure task Care Plan Weekly blood pressure task No Cachorro Mona MANAGER MEDICARE Weekly blood pressure task Care Plan Weekly blood pressure task No Cachorro Mona, MANAGER MEDICARE Patient has chronic kidney disease Care Plan Patient has chronic kidney disease No Cachorro Mona, MANAGER MEDICARE Patient has chronic kidney disease Care Plan Patient has chronic kidney disease No Cachorro Mona, MANAGER MEDICARE Weekly blood pressure task Care Plan Weekly [...] as of this encounter Care Teams Grain Roaster Relationship Specialty Start Date End Date Toyin Pollard FNP [address] [place] [address] PCP - General Family Medicine 01/11/21 Satish Brennan MD [address] [place] [address] Endocrinology 02/22/24 Jacob Morrow [address] [place] [address] Pulmonary Disease 02/22/24 Nicolasa Escobar MD [address] [place] [address] Neurology 02/22/24 Shen Davis MD [address] [place] [address] Nephrology 02/22/24 Ellyn Connolly Coal Tram DriverManager Zone 08/17/23 [email or web address] 08/14/24 documented as of this encounter
--- OUTSIDE RECORDS SUMMARY | 2025-03-19 10:57 | XMS_ITS | Encounter Summary ---
Author Organization [employer] Address 75 [facility] 7t [place] [address] Care Team Providers Care Geriatric Social Worker Name Role Phone Toyin Pollard ROAD WORKER Primary Care Provider Satish Brennan MD Unavailable [phone] Jacob Morrow Unavailable [phone] Nicolasa Escobar MD Unavailable Shen Davis MD Unavailable [phone] Encounter Details Date Type Department Care Team (Late st Contact Info) Description 03/29/2023 Orders Only [facility] CHC MED & PEDS [address] [place], [place] [phone] Maritza Daniel FNP [address] [facility] [place], [place] [phone] Social History Tobacco Use Types Packs/Day Years [...] Info) Description 05/19/2025 11:00 AM EST Telemedicine [facility] MED & PEDS 505 [place] [address] Margret Hector RN 505 [place] [address] documented as of this encounter Goals Goal Patient Goal Type Associated Problems Recent Progress Patient-Stated? Author Hemoglobin A1c < 7 Result Component 5.9(03/19/2025 9:46 AM EST) No Michelle Alegria, FabioD documented as of this encounter Visit Diagnoses Not on filedocumented in this encounter Additional Health Concerns Assessment Noted Time PHQ-9 Depression Total Score: 0 09/29/19 23 2:03 PM EDT documented as of this encounter Care Teams Geriatric Social Worker Relationship Specialty Start Date End Date Toyin Pollard FNP [address] [place] [address] PCP - General Family Medicine 01/11/21 Satish Brennan MD [address] [place] [address] Endocrinology 02/22/24 Jacob Morrow 5 [place] [address] Pulmonary Disease 02/22/24 Nicolasa Escobar MD [address] [place] [address] [address] [place] [address] Neurology 02/22/24 Shen Davis MD [address] [place] [address] Nephrology 02/22/24 Ellyn Connolly Design AssistantGeoscience Technician 08/17/23 [facility] 01/11/24 01/21/24 [facility] 01/11/24 08/07/24 [employer] 08/14/24 documented as of this encounter
--- OUTSIDE RECORDS SUMMARY | 2025-03-19 10:57 | XMS_ITS | Encounter Summary ---
Author Organization [employer] Address 75 [facility] 7t [place] [address] Care Team Providers Care Outside Medical Sales Representative Name Role Phone Toyin Pollard Primary Care Provider Satish Brennan MD Unavailable [phone] Jacob Morrow Unavailable [phone] Nicolasa Escobar MD Unavailable Shen Davis MD Unavailable [phone] Encounter Details Date Type Department Care Team (Late st Contact Info) Description 03/15/2022 Orders Only [facility] MED & PEDS 505 [place] [address] Ellyn Chery LPN Social History Tobacco Use [...] Info) Description 05/19/2025 11:00 AM EST Telemedicine [facility] MED & PEDS 505 [place] [address] Margret Hector, MINA 505 [place] [address] documented as of this encounter Visit Diagnoses Not on filedocumented in this encounter Care Teams Outside Medical Sales Representative Relationship Specialty Start Date End Date Toyin Pollard FNP [address] [place] [address] PCP - General Family Medicine 01/11/21 Satish Brennan MD [address] [place] [address] Endocrinology 02/22/24 Jacob Morrow 5 [place] [address] Pulmonary Disease 02/22/24 Nicolasa Escobar MD [address] [place] [address] 140 [place] [address] Neurology 02/22/24 Shen Davis MD [address] [place] [address] Nephrology 02/22/24 Ellyn Connolly Shaker TenderLog Buncher 08/17/23 [facility] 01/11/24 01/21/24 [facility] 01/11/24 08/07/24 [employer] 08/14/24 documented as of this encounter
--- OUTSIDE RECORDS SUMMARY | 2025-03-19 10:57 | XMS_ITS | Encounter Summary ---
Author Organization [employer] Address [address] [facility] 7t [place] [address] Care Team Providers Care Motor Lodge Clerk Name Role Phone Toyin Pollard Primary Care Provider [phone] Satish Brennan MD Unavailable [phone] Jacob Morrow Unavailable [phone] Nicolasa Escobar MD Unavailable Shen Davis MD Unavailable [phone] Reason for Visit * Reason Comments Med Refill Encounter Details Date Type Department Care Team ([facility] st Contact Info) Description 01/24/2023 Refill [facility] CHC MED & PEDS 505 [place], [place] [phone] Toyin Pollard FNP 505 [place], [place] [phone] Pain Social History Tobacco Use Types Packs/Day [...] Upcoming Encounters Date Type Department Care Team ([facility] st Contact Info) Description 05/19/2025 11:00 AM EST Telemedicine [facility] MED & PEDS 505 [place] [address] Margret Hector, RN 505 [place] [address] documented as of this encounter Goals Goal [...] documented as of this encounter Care Teams Motor Lodge Clerk Relationship Specialty Start Date End Date Toyin Pollard FNP 230 [place] [address] PCP - General Family Medicine 01/11/21 Satish Brennan MD [address] [place] [address] Endocrinology 02/22/24 Jacob Morrow 5 [place] [address] Pulmonary Disease 02/22/24 Nicolasa Escobar MD [address] [place] [address] [place] [address] Neurology 02/22/24 Shen Davis MD [address] [place] [address] Nephrology 02/22/24 Ellyn Connolly Wool SpotterComputer Programming Supervisor 08/17/23 [facility] 01/11/24 01/21/24 [facility] 01/11/24 08/07/24 [employer] 08/14/24 documented as of this encounter
--- OUTSIDE RECORDS SUMMARY | 2025-03-19 10:57 | XMS_ITS | Encounter Summary ---
Author Organization [employer] Address [address] [facility] 7t [place] [address] Care Team Providers Care Machine Tracer Name Role Phone Toyin Pollard LOUIE Primary Care Provider Satish Brennan MD Unavailable [phone] Jacob Morrow Unavailable [phone] Nicolasa Escobar MD Unavailable Shen Davis MD Unavailable [phone] Reason for Visit * Reason Onset Date Comments Appointment 12/27/2022 Encounter Details Date Type Department Care Team ([facility] st Contact Info) Description 12/27/2022 Telephone [facility] ADULT DENTAL 230 [place], [place] [phone] Nestor Varela DDS 230 [place], [place] [phone] Appointment Social History Tobacco Use Types Packs/Day [...] Info) Description 05/19/2025 11:00 AM EST Telemedicine [facility] MED & PEDS 505 [place] [address] Margret Hector, RN 505 [place] [address] documented as of this encounter Visit Diagnoses Not on filedocumented in this encounter Additional Health Concerns Assessment Noted Time PHQ-9 Depression Total Score: 0 09/29/19 23 2:03 PM EDT documented as of this encounter Care Teams Machine Tracer Relationship Specialty Start Date End Date Toyin Pollard FNP 230 [place] [address] PCP - General Family Medicine 01/11/21 Satish Brennan MD [address] [place] [address] Endocrinology 02/22/24 Jacob Morrow [address] [facility] [place] [address] Pulmonary Disease 02/22/24 Nicolasa Escobar MD [address] [place] [address] [id number] Neurology 02/22/24 Shen Davis MD [address] [place] [address] Nephrology 02/22/24 Ellyn Connolly Bullet Slug Casting Machine OperatorLogger Driving Horses 08/17/23 [facility] 01/11/24 01/21/24 [facility] 01/11/24 08/07/24 [employer] 08/14/24 documented as of this encounter
--- OUTSIDE RECORDS SUMMARY | 2025-03-19 10:57 | XMS_ITS | Clinical Summary ---
Author Organization [facility] Address [address] [facility] 20 0 [place] [address] Phone Care Team Providers Care Process Engineering Intern Name Role Phone Toyin Pollard LOUIE Primary Care Provider [phone] Social History Tobacco Use Types Packs/Day Years [...] of 1 - PCV) 021 Influenza Vaccine (#1) 2024 [place] Care Teams Process Engineering Intern Relationship Specialty Start Date End Date Toyin Pollard FNP [address] [place] [address] PCP - General 09/13/22
--- OUTSIDE RECORDS SUMMARY | 2025-03-19 10:57 | XMS_ITS | Encounter Summary ---
Author Organization [employer] Address [address] [facility] 7t [place] [address] Care Team Providers Care Hole Filler Name Role Phone Toyin Pollard Primary Care Provider Satish Brennan MD Unavailable [phone] Jacob Morrow Unavailable [phone] Nicolasa Escobar MD Unavailable [phone] Shen Davis MD Unavailable [phone] Encounter Details Date Type Department Care Team (Late st Contact Info) Description 04/26/2022 Abstract [facility] MEDICINE 230 [place] [address] Toyin Pollard FNP 505 [place] [address] Social History Tobacco Use Types Packs/Day Years [...] Info) Description 05/19/2025 11:00 AM EST Telemedicine [facility] CHC MED & PEDS 505 [place], [place] [phone] Margret Hector, RN 505 [place], [place] [phone] documented as of this encounter Visit Diagnoses Not on filedocumented in this encounter Care Teams Hole Filler Relationship Specialty Start Date End Date Toyin PollardLOUIE 230 [place] [address] PCP - General Family Medicine 01/11/21 Satish Brennan MD [address] [place] [address] Endocrinology 02/22/24 Jacob Morrow 5 [place] [address] Pulmonary Disease 02/22/24 Nicolasa Escobar MD [address] [facility] 140 [place] [address] Neurology 02/22/24 Shen Davis MD [address] [place] [address] Nephrology 02/22/24 Ellyn Connolly Control Room TechnicianDirectory Assistance Operator 08/17/23 [facility] 01/11/24 01/21/24 [facility] 01/11/24 08/07/24 [employer] 08/14/24 documented as of this encounter
--- OUTSIDE RECORDS SUMMARY | 2025-03-19 10:58 | XMS_ITS | Encounter Summary ---
Author Organization [employer] Address [address] [facility] 7t [place] [address] Care Team Providers Care Rewinder Operator Helper Name Role Phone Toyin Pollard Primary Care Provider Satish Brennan MD Unavailable Jacob Morrow Unavailable [phone] Nicolasa Escobar MD Unavailable Shen Davis MD Unavailable [phone] Reason for Visit * Reason Onset Date Comments PT1 10/25/2024 Encounter Details Date Type Department Care Team ([facility] Contact Info) Description 10/25/2024 Telephone [facility] CHC MED & PEDS 505 [place], [place] [phone] Toyin Pollard FNP 505 [place], [place] [phone] PT1 Social History Tobacco Use Types Packs/Day [...] encounter Miscellaneous Notes * Telephone Encounter - Jose Guzman - 10/25/2024 10:40 AM EDT Glory calling with [facility] calling requesting PT1 Home Address verified: Y/N: Yes Provider name or facility name: [facility] Escort needed: Y/N: Yes Do you have a wheelchair: Y/N: Yes If yes- Manual or electric: Eletrical Visits: (2x month ) documented in this encounter Plan of Treatment Upcoming Encounters Date Type Department Care Team (Late st Contact Info) Description 05/19/2025 11:00 AM EST Telemedicine [facility] MED & PEDS 505 [place] [address] Margret Hector, MINA 505 [place] [address] documented as of this encounter Goals Goal [...] documented as of this encounter Care Teams Rewinder Operator Helper Relationship Specialty Start Date End Date Toyin Pollard FNP 230 [place] [address] PCP - General Family Medicine 01/11/21 Satish Brennan MD [address] [place] [address] Endocrinology 02/22/24 Jacob Morrow 5 [place] [address] Pulmonary Disease 02/22/24 Nicolasa Escobar MD [address] [place] [address] 140 [place] [address] Neurology 02/22/24 Shen Davis MD [address] [place] [address] Nephrology 02/22/24 Ellyn Connolly Repair Order ClerkPpa Teacher 08/17/23 [employer] 08/14/24 documented as of this encounter
--- OUTSIDE RECORDS SUMMARY | 2025-03-19 10:58 | XMS_ITS | Encounter Summary ---
Author Organization [employer] Address [address] [facility] 7t [place] [address] Care Team Providers Care Cutter Aluminum Sheet Name Role Phone Toyin Pollard LOUIE Primary Care Provider Satish Brennan MD Unavailable Jacob Morrow Unavailable [phone] Nicolasa Escobar MD Unavailable Shen Davis MD Unavailable [phone] Encounter Details Date Type Department Care Team ([facility] st Contact Info) Description 07/09/2024 Orders Only [facility] CHC MED & PEDS 505 [place] [address] Francisco Javier Fields MD 505 [place], [place] [phone] Stress incontinence of urine (Primary Dx) Social [...] Info) Description 05/19/2025 11:00 AM EST Telemedicine [facility] MED & PEDS 505 [place] [address] Margret Hector, RN 505 [place] [address] documented as of this encounter Goals Goal [...] (07/15/2024 9:00 AM EDT) Color Urine Yellow [facility] Appearance Urine Turbid [facility] PH 6.0 5.0 - 9.0 [facility] Glucose Urine UA Negative Negative mg/dL [facility] Urine Blood Trace(A) Negative [facility] Specific [place] - Urine 1.015 1.005 - 1.025 [facility] Urine Protein 30 (1+)(A) Neg-Trace mg/dL [facility] Urine Ketones Negative Negative mg/dL [facility] Nitrite Urine Negative Negative [facility] Leukocyte Esterase Urine Large (3+)(A) Negative [facility] RBC Urine 11-20(A) 0 - 2 /HPF [facility] Urine WBC >50(A) 0 - 5 /HPF [facility] Urine Squamous Epithelial Cell 3-5 0 - 2 /HPF [facility] Other Crystals Urine Present [facility] Urine Bacteria 4+ None Seen [facility] Hyaline Casts, Urine 0-2 0 - 2 /LPF [facility] Urine 07/15/2024 9:00 AM EDT 07/15/2024 1:59 PM EDT Narrative [facility] - 07/15/2024 3:07 PM EDT [id number], Clean Catch us Francisco Javier Fields MD LAB URINE ORDERABLES Final Result [facility] [address] [place] [address] [phone] documented in this encounter Visit Diagnoses Diagnosis Stress incontinence of urine- Primary documented in this encounter Additional Health Concerns Assessment Noted Time PHQ-9 Depression Total Score: 13 024 4:37 PM EDT documented as of this encounter Care Teams Cutter Aluminum Sheet Relationship Specialty Start Date End Date Toyin Pollard FNP 230 [place] [address] PCP - General Family Medicine 01/11/21 Satish Brennan MD [address] [place] [address] Endocrinology 02/22/24 Jacob Morrow 5 [place] [address] Pulmonary Disease 02/22/24 Nicolasa Escobar MD [address] [email or web address] 140 [place] [address] Neurology 02/22/24 Shen Davis MD [address] [place] [address] Nephrology 02/22/24 Ellyn Connolly Fry CookKosher Dietary Service Manager 08/17/23 [facility] 01/11/24 08/07/24 [facility] 08/14/24 documented as of this encounter
--- OUTSIDE RECORDS SUMMARY | 2025-03-19 10:58 | XMS_ITS | Encounter Summary ---
Author Organization [employer] Address [address] [facility] 7t [place] [address] Care Team Providers Care Millwright Helper Name Role Phone Toyin Pollard Primary Care Provider Satish Brennan MD Unavailable [phone] Jacob Morrow Unavailable [phone] Nicolasa Escobar MD Unavailable [phone] Shen Davis MD Unavailable [phone] Reason for Visit * Reason Onset Date Comments Durable Medical Equipment 05/16/2024 Encounter Details Date Type Department Care Team (Late st Contact Info) Description 05/16/2024 Telephone [facility] MEDICINE 230 [place], [place] [phone] Toyin Pollard FNP 505 [place], [place] [phone] Durable Medical Equipment Social History Tobacco Use [...] - 05/16/2024 12:46 PM EST Tc from [facility] requesting an Oxygen Tank. Would new diaper briefs (3XL) (HART) <----- Brief that dont give pt a rash and she prefers these. documented in this encounter Plan of Treatment Upcoming Encounters Date Type Department Care Team (Late st Contact Info) Description 05/19/2025 11:00 AM EST Telemedicine [facility] MED & PEDS 505 [place] [address] Margret Hector, RN 505 [place] [address] documented as of this encounter Goals Goal [...] documented as of this encounter Care Teams Millwright Helper Relationship Specialty Start Date End Date Toyin Pollard FNP 230 [place] [address] PCP - General Family Medicine 01/11/21 Satish Brennan MD [address] [place] [address] Endocrinology 02/22/24 Jacob Morrow [address] [address] Pulmonary Disease 02/22/24 Nicolasa Escobar MD [address] [place] [address] [facility] 140 [place] [address] Neurology 02/22/24 Shen Davis MD [address] [place] [address] Nephrology 02/22/24 Ellyn Connolly Job Printer ApprenticeMortgage Protection Specialist 08/17/23 [facility] 01/11/24 08/07/24 [employer] 08/14/24 documented as of this encounter
--- OUTSIDE RECORDS SUMMARY | 2025-03-19 10:58 | XMS_ITS | Clinical Summary ---
Author Organization [employer] Address [address] [facility] [address] [place] [address] Care Team Providers Care C D Still Operator Name Role Phone Toyin Pollard LOUIE Primary Care Provider Satish Brennan MD Unavailable Jacob Morrow Unavailable [phone] Nicolasa Escobar MD Unavailable [phone] Shen Davis MD Unavailable [phone] Allergies Active Allergy Reactions Criticality Noted Date Comments Haloperidol Unknown High 03/22/2022 Other reaction(s): Irritable Latex Rash Low 01/14/2021 Metformin Diarrhea,Hives High 01/14/2021 Morphine Itching,Rash Low 02/07/2019 Tetracycline Hives High 03/22/2022 Medications TRUEplus Lancets 33G miscIndications: Type 2 diabetes mellitus with complication (HCC) 1 Lancet in the morning, at noon, [...] DAILY NEEDED 48 g 4 023 Active benztropine (Cogentin) 1 MG tablet Take 1 tablet by mouth 2 times daily. 023 Active Breztri Aerosphere 160-9-4.8 MCG/ACT aerosol Inhale [...] needed at bedtime (insomnia). 90 tablet 3 Active Continuous Glucose Sensor (FreeStyle Todd 2 Sensor) [facility] [place]ED CHANGE EVERY 14 DAYS Active topiramate 50 MG tablet TAKE 1 TABLET BY MOUTH TWICE DAILY IN THE MORNING AND AT BEDTIME Active Tirosint 150 MCG capsule Take 1 capsule by mouth Once per day. TDD 350 mcg 024 Active LORazepam (Ativan) 1 MG tablet Take 1 tablet by mouth if needed each day (panic attack). 024 Active Mounjaro 7.5 MG/0.5ML solution pen-injector Inject 7.5 mg under the skin every 7 (seven) days. Active albuterol (Ventolin HFA) 108 (90 Base) MCG/ACT inhalerIndicatio ns:Chronic obstructive pulmonary disease, unspecified COPD type (CMS/HCC) (HCC) INHALE 2 PUFFS BY MOUTH EVERY 4 TO 6 HOURS NEEDED 18 g 3 024 Active insulin glargine (Toujeo Max SoloStar) 300 UNIT/ML injectionIndicat ions:Type 2 Diabetes Mellitus Inject 64 Units under the skin at bedtime. Endo Active Alcohol Swabs (Alcohol Prep) 70 % pads USE THREE TIMES DAILY 100 each 11 024 Active atenolol (Tenormin) 50 MG tablet TAKE 1 TABLET BY MOUTH EVERYDAY AT NOON 90 tablet 3 025 Active cholecalciferol VITAMIN D (Vitamin D-3) 50 MCG (2000 UT) tablet TAKE 1 TABLET BY MOUTH EVERY MORNING 90 tablet 3 025 Active lisinopril 10 MG tablet TAKE 1 TABLET BY MOUTH AT BEDTIME 90 tablet 3 025 Active BD Pen Needle Mary U/F 32G X 4 MM misc Use as instructed 100 each 11 03/12/20 25 11:00 AM EST 025 Active cetirizine (ZyrTEC) 10 MG tabletIndication s:Seasonal allergies TAKE 1 TABLET BY MOUTH EVERY DAY NEEDED FOR ALLERGIES 90 tablet 3 025 Active docusate sodium (Colace) 100 MG capsuleIndicatio ns:Chronic constipation TAKE 1 CAPSULE BY MOUTH EVERY DAY NEEDED FOR CONSTIPATION 90 capsule 3 025 Active Multiple Vitamin (Multivitamin) tablet TAKE 1 TABLET BY MOUTH EVERYDAY AT NOON WITH FOOD 90 tablet 3 025 Active furosemide (Lasix) 40 MG tabletIndication s:Hypertension, unspecified type TAKE 1 TABLET BY MOUTH EVERY MORNING 90 tablet 1 025 Active amitriptyline (Elavil) 10 MG tabletIndication s:Other migraine without status migrainosus, not intractable TAKE 1 TABLET BY MOUTH AT BEDTIME 90 tablet 1 025 Active naloxone (Narcan) 4 mg/0.1 mL nasal spray Administer 1 spray (4 mg) into affected nostril(s) if needed for opioid reversal. May repeat every 2-3 minutes if needed, alternating nostrils, until medical assistance becomes available. 2 each 2 025 2025 Active Diclofenac Sodium 1 % gel APPLY 2 GRAMS TOPICALLY TO AFFECTED AREA(S) TWICE DAILY NEEDED FOR PAIN 100 g 3 02/08/20 25 4:19 PM EST 025 Active alendronate (Fosamax) 70 MG tablet take 1 tablet by mouth once a week with 6 to 8 oz of water 30 min before first food of day. do not lie down for 30 minutes 12 tablet 3 025 Active atorvastatin (Lipitor) 40 MG tablet Take 1 tablet (40 mg) by mouth at bedtime. (Cholesterol) 90 tablet 1 025 Active folic acid (Folvite) 1 MG tabletIndication s:Routine health maintenance Take 1 tablet (1,000 mcg) by mouth in the morning. 90 tablet 3 02/08/20 25 4:19 PM EST 025 Active traMADol (Ultram) 50 MG tabletIndication s:Pain,Calculus of gallbladder without cholecystitis without obstruction,Long -term current use of opiate analgesic TAKE 1 TABLET BY MOUTH EVERY DAY NEEDED FOR SEVERE PAIN 28 tablet 02/29/20 25 8:48 AM EST 025 Active lidocaine (Lidoderm) 5 % patch APPLY 1 PATCH TOPICALLY TO SKIN, LEAVE ON FOR 12 HOURS AND OFF FOR 12 HOURS DIRECTED 30 patch 5 025 Active Rimegepant Sulfate (Nurtec) 75 MG tablet dispersibleIndic ations:Migraine without status migrainosus, not intractable, unspecified migraine type DISSOLVE 1 TABLET UNDER THE TONGUE NEEDED FOR MIGRAINE, DO NOT EXCEED 1 TABLET / 24 HOURS 12 tablet 5 025 Active montelukast (Singulair) 10 MG tabletIndication s:Asthma, unspecified asthma severity, unspecified whether complicated, unspecified whether persistent,Seaso nal allergies TAKE 1 TABLET BY MOUTH AT BEDTIME 90 tablet 3 12/17/2 025 Active ammonium lactate (Lac-Hydrin) 12 % lotion APPLY 2 GRAMS TOPICALLY TO AFFECTED AREA(S) EVERY DAY NEEDED FOR DRY SKIN 225 g 3 Active nystatin (Mycostatin) 412267 UNIT/GM powderIndication s:Tinea APPLY TOPICALLY TO AFFECTED AREA(S) TWICE DAILY DIRECTED 60 g 2 Active econazole nitrate 1 % creamIndications :Intertrigo APPLY TO AFFECTED AREA(S) TWICE DAILY FOR 1 TO 2 WEEKS 30 g 2 Active fluconazole (Diflucan) 150 MG tablet Take 1 tablet (150 mg) by mouth 1 (one) time per week for 4 doses. 4 tablet 025 2025 Active sodium chloride 5 % ophthalmic ointment Apply 1 Application. to both eyes if needed (dry eyes). 3.5 g 3 025 2025 Active scopolamine (Transderm-Scop) 1 MG/3DAYS patch 72 hourIndications: Dizziness, nonspecific APPLY ONE PATCH TRANSDERMALLY EVERY 3 DAYS DIRECTED 10 patch 3 Active econazole nitrate 1 % creamIndications :Intertrigo APPLY TO AFFECTED AREA(S) TWICE DAILY FOR 1 TO 2 WEEKS 30 g 2 024 2024 Discontinued(R eorder (will not trigger notification to Pharmacy)) nicotine polacrilex (Nicorette) 4 MG gumIndications:S mokes cigarettes CHEW 1 PIECE OF GUM EVERY 2 HOURS NEEDED FOR SMOKING CESSATION. NO MORE THAN 24 pieces PER DAY 100 each 5 025 2024 Discontinued(T herapy completed) ammonium lactate (Lac-Hydrin) 12 % lotion APPLY 2 GRAMS TOPICALLY TO AFFECTED AREA(S) EVERY DAY NEEDED FOR DRY SKIN 225 g 3 02/08/20 25 4:19 PM EST 2024 Discontinued(R eorder (will not trigger notification to Pharmacy)) lidocaine (Lidoderm) 5 % patch APPLY 1 PATCH TOPICALLY TO SKIN, LEAVE ON FOR 12 HOURS AND OFF FOR 12 HOURS DIRECTED 30 patch 5 025 2024 Discontinued Rimegepant Sulfate (Nurtec) 75 MG tablet dispersibleIndic ations:Migraine without status migrainosus, not intractable, unspecified migraine type DISSOLVE 1 TABLET UNDER THE TONGUE NEEDED FOR MIGRAINE, DO NOT EXCEED 1 TABLET / 24 HOURS 12 tablet 5 025 2024 Discontinued(R eorder (will not trigger notification to Pharmacy)) fluconazole (Diflucan) 150 MG tablet Take 1 tablet by mouth today. Repeat in 72 hours if symptoms persist. 2 tablet 025 2024 Discontinued(T herapy completed) montelukast (Singulair) 10 MG tabletIndication s:Asthma, unspecified asthma severity, unspecified whether complicated, unspecified whether persistent,Seaso nal allergies TAKE 1 TABLET BY MOUTH AT BEDTIME 90 tablet 1 025 2024 Discontinued nystatin (Mycostatin) 243600 UNIT/GM powderIndication s:Tinea APPLY TOPICALLY TO AFFECTED AREA(S) TWICE DAILY DIRECTED 60 g 2 02/01/20 25 12:45 PM EST 025 2024 Discontinued(R eorder (will not trigger notification to Pharmacy)) scopolamine (Transderm-Scop) 1 MG/3DAYS patch 72 hourIndications: Dizziness, nonspecific APPLY ONE PATCH TRANSDERMALLY EVERY 3 DAYS DIRECTED 10 patch 3 02/08/20 25 4:19 PM EST 025 2024 Discontinued(R eorder (will not trigger notification to Pharmacy)) ammonium lactate (Lac-Hydrin) 12 % lotion APPLY 2 GRAMS TOPICALLY TO AFFECTED AREA(S) EVERY DAY NEEDED FOR DRY SKIN 225 g 3 03/05/20 25 8:15 AM EST 025 2024 Discontinued(R eorder (will not trigger notification to Pharmacy)) Active Problems Problem Noted Date Diagnosed Date UTI due to extended-spectrum beta lactamase (ESBL) producing Escherichia coli 08/08/2024 Overview (08/08/2024): Hospitalization July 2024 at [facility] [place]BL UTI sensitive to ertapenem Tx with IV abx x 10 days Assessment & Plan (08/08/2024 11:13 AM EDT): - Urinary symptoms resolved - Pt should expect call back from [facility] ID regarding plan for midline removal - ED/follow up precautions reviewed Long-term current use of opiate analgesic 2024 Overview (06/27/2024): Medication: Tramadol 50mg daily prn Indication: calculus of gallbladder Tier 3 (Q4 month visits - tele ok. Needs utox at least annual) - last reviewed 06/27/24 by PCP MARY LOU Pollard Complete edentulism 01/20/2023 Other specified hypothyroidism 11/15/2022 Overview (11/15/2022): Followed by [facility] Lab Results Component Value Date TSH [...] maintenance 11/10/2022 Overview (08/05/2023): Optometry: followed by [facility], last appt Feb 2021 Mammogram: BIRADS 2 02/21/2019, due. Ordered 11/15/22 Colonoscopy: followed by GI, referral for screening colonoscopy placed 11/15/22. Cologuard negative 03/08/23 Pap: overdue, pt does not recall last pap. Will schedule with [facility] in handicap accessible room Last PE: 07/17/23 Assessment & Plan (07/19/2023 10:15 AM EDT): Labs ordered today, showed hyperkalemia, but with hemolysis Will repeat at next appointment with PCP ADHD 09/28/2022 History of posttraumatic stress disorder (PTSD) 09/28/2022 Migraine 09/28/2022 Assessment & Plan (03/19/2025 6:55 AM EST): - History of migraines, previously using sumatripan. Discontinued with history of AK - Referral to Neuro for further eval and tx 11/15/22 -Nurtec 75mg tablet approval - PA # [id number], exp 03/11/26 - pt reports med effective. Denies med SE Assessment & Plan (02/25/2024 6:26 PM EST): - History of migraines, previously using sumatripan. Discontinued with history of AK - Referral to Neuro for further eval and tx 11/15/22 -Nurtec 75mg tablet approval - PA # [id number], exp 02/12/25 - pt reports med effective. Denies med SE Assessment & Plan (08/05/2023 5:08 PM EDT): - History of migraines, previously using sumatripan. Discontinued with history of AK - Referral to Neuro for further eval and tx 11/15/22 -Nurtec 75mg tablet approved May 2023. #[id number] will on 12/17/23 - pt reports med [...] -Patient will follow outpt Vasc Surg at [facility] - Dr. Canales -Incidental measuring on CT Dec 2022 - approx 5.3cm Schizoaffective disorder (CMS/HCC) 04/05/2022 Disorder of both sacroiliac joints 04/05/2022 Anxiety disorder 04/05/2022 History of myocardial infarction 12/01/2021 Chronic hypoxemic respiratory failure (CMS/HCC) 11/15/2021 Assessment & Plan (03/19/2025 6:51 AM EST): Following with [facility] Pulm - Dr. Morrow Continues on 7L oxygen, non-invasive ventilator at bedtime Allergic rhinitis 05/05/2021 Gallstone 05/05/2021 Assessment & Plan (02/22/2024 4:26 PM EST): PAIN CONTROL - Initially prescribed by surgeon for pain control w/ hx of pain w/ gall bladder as surgeon thought risk of operating was too great, so started treatment with tramadol - Extensive discussion with patient about the risks and harms of group home opioid use - Pt goal is to [...] patient about the risks and harms of group home opioid use - Pt goal is to lose enough weight so that she is eligible for gall bladder surgery, was referred to Weight management clinic 10/08/21 Chronic constipation 05/05/2021 COPD (chronic obstructive pulmonary disease) Assessment & Plan (02/25/2024 6:20 PM EST): - Patient continues on supplemental oxygen: 6L/min @ rest or when sitting, and 8L/min when up and moving around. - Following with [facility] Pulmonology - Dr. Morrow - Chronic SOB. Denies any fevers, chills, difficulty breathing, cough, or mucous production. Reports that she has enough supplemental O2 at home -Continue with Breztri ([id number]) BID -Albuterol PRN -DME request for neb machine placed 11/15/22 Assessment & Plan (11/15/2022 5:33 PM EDT): - Patient continues on supplemental oxygen: 6L/min @ rest or when sitting, and 8L/min when up and moving around. - Following with [facility] Pulmonology - Dr. Morrow - Marycarmen SOB. Denies any fevers, chills, difficulty breathing, cough, or mucous production. Reports that she has enough supplemental O2 at home -Continue with Breztri ([id number]) BID -Albuterol PRN -DME request for neb machine placed 11/15/22 Coronary arteriosclerosis 05/05/2021 Depressive disorder 05/05/2021 Edema of lower extremity 05/05/2021 GERD (gastroesophageal reflux disease) Moderate persistent asthma without complication 05/05/2021 Tobacco dependence syndrome 05/05/2021 Vitamin D deficiency 05/05/2021 Schizoaffective disorder, bipolar type ([facility]/HCC) 04/22/2021 Assessment & Plan (11/15/2022 5:40 PM EDT): Following with psych, continues with med management through their office Severe obesity (CMS/HCC) 02/09/2021 Assessment & Plan (02/25/2024 6:29 PM EST): BMI Readings from Last 1 Encounters: 08/02/23 91.60 kg/m Encouraged good nutrition and continuing to engage with physical therapy Bipolar I disorder (CMS/HCC) 03/07/2020 HTN (hypertension) 03/07/2020 Assessment & Plan (02/25/2024 6:18 PM EST): -EF 55-60% Fall 2023 HLD (hyperlipidemia) 03/07/2020 T2DM (type 2 diabetes mellitus) 03/07/2020 Assessment & Plan (03/19/2025 6:54 AM EST): Following with [facility] Continue Mounjaro & Toujeo, with goal of weight loss leading to bariatric surgery Lab Results Component Value Date HGBA1C 6.4 (A) 08/02/2023 HGBA1C 6.7 (A) 07/17/2023 HGBA1C 10.4 (A) 03/01/2023 HGBA1C TNP 07/20/2022 HGBA1C 7.8 (H) 01/11/2021 HGBA1C 11.9 (H) 11/11/2019 HGBA1C 11.9 (H) 11/11/2019 A1c: congratulated in improvement with A1c levels Eye exam: due, schedule with [facility] Foot exam: referral to podiatry 11/15/22 Dental: encouraged PNA: UTD ACEi/ARB: yes Statin: yes ASA: yes Lifestyle: Encouraged regular movement as able and aerobic exercise for improved glycemic control Encouraged daily foot checks Encouraged lean protein snacks and to avoid foods high in sugar and simple carbohydrates Medications: Per [facility] [place] insulin: 64 units at bedtime Humalog 14 units TID AC Mounjaro 7.5mg subcutaneous weekly Treatment Goals: A1c goal: <7% FBG goal: <130 2 hour post prandial goal: <180 Assessment & Plan (02/25/2024 6:25 PM EST): Following with [facility] Continue Mounjaro & Toujeo, with goal of weight loss leading to bariatric surgery Lab Results Component Value Date HGBA1C 6.4 (A) 08/02/2023 HGBA1C 6.7 (A) 07/17/2023 HGBA1C 10.4 (A) 03/01/2023 HGBA1C TNP 07/20/2022 HGBA1C 7.8 (H) 01/11/2021 HGBA1C 11.9 (H) 11/11/2019 HGBA1C 11.9 (H) 11/11/2019 A1c: congratulated in improvement with A1c levels Eye exam: due, schedule with [facility] Foot exam: referral to podiatry 11/15/22 Dental: encouraged PNA: UTD ACEi/ARB: yes Statin: yes ASA: yes Lifestyle: Encouraged regular movement as able and aerobic exercise for improved glycemic control Encouraged daily foot checks Encouraged lean protein snacks and to avoid foods high in sugar and simple carbohydrates Medications: Per [facility] Toujeo insulin: 64 units at bedtime Humalog 14 units TID AC Mounjaro 7.5mg subcutaneous weekly Treatment Goals: A1c goal: <7% FBG goal: <130 2 hour post prandial goal: <180 Assessment & Plan (08/05/2023 5:09 PM EDT): Following with [facility] Continue Mounjaro & Toujeo, with goal of weight loss leading to bariatric surgery Lab Results Component Value Date HGBA1C 6.4 (A) 08/02/2023 HGBA1C 6.7 (A) 07/17/2023 HGBA1C 10.4 (A) 03/01/2023 HGBA1C 7.8 (H) 01/11/2021 HGBA1C 11.9 (H) 11/11/2019 HGBA1C 11.9 (H) 11/11/2019 A1c: congratulated in improvement with A1c levels Eye exam: due, schedule with [facility] Foot exam: referral to podiatry 11/15/22 Dental: encouraged PNA: UTD ACEi/ARB: yes Statin: yes ASA: yes Lifestyle: Encouraged regular movement as able and aerobic exercise for improved glycemic control Encouraged daily foot checks Encouraged lean protein snacks and to avoid foods high in sugar and simple carbohydrates Medications: Per [facility] Treatment Goals: A1c goal: <7% FBG goal: <130 2 hour post prandial goal: <180 Assessment & Plan (07/19/2023 10:16 AM EDT): Following with [facility] Continue Mounjaro with goal of weight loss leading to bariatric surgery Lab Results Component Value Date HGBA1C 10.4 (A) 03/01/2023 A1c: above goal Eye exam: due, schedule with [facility] Foot exam: referral to podiatry 11/15/22 Dental: encouraged PNA: UTD ACEi/ARB: yes Statin: yes ASA: yes Lifestyle: Encouraged regular movement as able and aerobic exercise for improved glycemic control Encouraged daily foot checks Encouraged lean protein snacks and to avoid foods high in sugar and simple carbohydrates Medications: Per [facility] Treatment Goals: A1c goal: <7% FBG goal: <130 2 hour post prandial goal: <180 Assessment & Plan (03/02/2023 4:56 PM EST): Following with [facility] Lab Results Component Value Date HGBA1C 10.4 (A) 03/01/2023 A1c: above goal Eye exam: due, schedule with [facility] Foot exam: referral to podiatry 11/15/22 Dental: encouraged PNA: UTD ACEi/ARB: yes Statin: yes ASA: yes Lifestyle: Encouraged regular movement as able and aerobic exercise for improved glycemic control Encouraged daily foot checks Encouraged lean protein snacks and to avoid foods high in sugar and simple carbohydrates Medications: Per [facility] Treatment Goals: A1c goal: <7% FBG goal: <130 2 hour post prandial goal: <180 Assessment & Plan (11/15/2022 5:38 PM EDT): Following with [facility] Lab Results Component Value Date HGBA1C 10.1 (A) 09/28/2022 A1c: above goal Eye exam: due, schedule with [facility] Foot exam: referral to [...] in sugar and simple carbohydrates Medications: Per [facility] Treatment Goals: A1c goal: <7% FBG [...] Encounters Date Type Department Care Team Description 03/19/2025 9:15 AM EST Office Visit [facility] [address] [place], [place] [address] [address] Toyin Pollard FNP Chronic hypoxemic respiratory failure (CMS/HCC) (HCC) (Primary [...] aneurysm (AAA) without rupture (CMS/HCC); Dizziness, nonspecific 03/19/2025 Travel 03/17/2025 Telephone [facility] [address] [place] [phone] Toyin Pollard FNP CHART PREP 03/17/2025 Telephone [facility] [address] [place] [phone] Toyin Pollard FNP transportation 03/12/[address] [address] Toyin Pollard FNP Care Coordination (Utilization Review) 03/07/2025 Patient Outreach [address] [address] Toyin Pollard FNP Pre-visit Planning (Pre-visit planning - PHONE NUMBERS ARE NOT WORKING ) 03/05/[address] [address] Phalen, Toyin, CONCAVING MACHINE OPERATOR Asthma, unspecified asthma severity, unspecified whether complicated, unspecified whether persistent; Seasonal allergies 03/03/2025 Refill [facility] [address] [place] [address] Phalen, Toyin, CONCAVING MACHINE OPERATOR Migraine without status migrainosus, not intractable, unspecified migraine type 03/02/2025 Refill [facility] [address] [place] [address] Phalen, Toyni, CONCAVING MACHINE OPERATOR Migraine without status migrainosus, not intractable, unspecified migraine type 03/01/2025 Refill [facility] [address] [place] [address] Phalen, Toyin, CONCAVING MACHINE OPERATOR 02/07/2025 Telephone [facility] [address] [place] [address] Phalen, Toyin, CONCAVING MACHINE OPERATOR transportation 02/06/2025 Refill [facility] [address] [place] [address] Phalen, Toyin, CONCAVING MACHINE OPERATOR Pain; Calculus of gallbladder without cholecystitis without obstruction; Long-term current use of opiate analgesic 02/05/2025 Telephone [facility] [address] [place] [address] Phalen, Toyin, CONCAVING MACHINE OPERATOR 01/31/2025 Refill [facility] [address] [place] [address] Phalen, Toyin, CONCAVING MACHINE OPERATOR Dizziness, nonspecific 01/30/2025 Refill [facility] [address] [place] [address] Phalen, Toyin, CONCAVING MACHINE OPERATOR Pain; Calculus of gallbladder without cholecystitis without obstruction; Long-term current use of opiate analgesic 01/30/2025 Refill [facility] [address] [place] [address] Phaljhonny Toyin, CONCAVING MACHINE OPERATOR Routine health maintenance 01/29/2025 Telephone [facility] [address] [place] [address] Phalen Toyin, CONCAVING MACHINE OPERATOR Chart Prep 01/27/2025 11:00 AM EST Telemedicine [facility] [address] [place] [address] Margret Hector RN Other chronic pain 01/27/2025 Travel 01/24/2025 Patient Outreach [address] [address] Toyin Pollard FNP Care Coordination (CH[facility] outreach for SDOH PT-1 and food needs-referral completed /) 01/24/[address] [address] Toyin Pollard FNP Pt-1 01/17/2025 Patient Outreach [address] [address] Toyin Pollard FNP Care Coordination ([facility] outreach for SDOH transportation need - LVM ) 01/17/2025 Telephone [facility] [address] [place] [address] Toyin Pollard FNP Call Back Request 01/15/2025 Telephone [facility] [address] [place] [address] Toyin Pollard FNP Prior Authorization 01/15/2025 Telephone [facility] [address] [place] [address] Toyin Pollard FNP DME order 01/07/[address] [address] Toyin Pollard FNP FYI 01/03/[address] [address] Toyin Pollard FNP 12/31/2024 Telephone [facility] [address] [place] [address] Toyin Pollard FNP Durable Medical Equipment 12/26/[address] [address] Toyin Pollard FNP Call back 12/25/2024 Refill [facility] [address] [place] [address] Toyin Pollard FNP Pain; Calculus of gallbladder without cholecystitis without obstruction; Long-term current use of opiate analgesic 12/23/2024 Refill [facility] [address] [place] [address] Toyin Pollard, LOUIE Dizziness, nonspecific from Last 3 Months Immunizations Immunization Administration Dates Next Due Influenza injectable quadriv alent preservative free 01/14/2022,11/30/2021,02/24/2021,02/18 Influenza, seasonal, injecta ble, preservative free 03/19/2025 Pfizer Covid-19 Vaccine 12+ 03/19/2025,1 04/27/2020,11/20/2020,04/01 Pneumococcal Conjugate PCV 20 11/10/2022 Pneumococcal Polysaccharide [...] housing situation today? I have cesarseble andersen 11/08/[address] [...] Pressure 111/71 08/28/2023 2:28 PM EDT Pulse 64 03/19/2025 9:40 AM EST Temperature 36.4 C (97.5 F) 03/19/2025 9:40 AM EST Respiratory Rate 24 03/19/2025 9:40 AM EST Oxygen Saturation 93% 03/19/2025 9:4 0 AM EST with O2 at 6ml Inhaled Oxygen Concentration - - Weight 213 kg (469 lb) 08/02/2023 3:01 PM EDT Height 152.4 cm (5') 08/02/2023 3:01 PM EDT Body Mass Index 91.6 08/02/2023 3:01 PM EDT Plan of Treatment Upcoming Encounters Date Type Department Care Team (Late st Contact Info) Description 05/19/2025 11:00 AM EST Telemedicine [facility] [address] [place] [address] Margret Hector, MINA [address], [place] [address] Health Maintenance Due Date Last Done Comments CT Colonography 1971 Colonoscopy 1971 Dental Prophylaxis 1971 FIT 1971 Sigmoidoscopy 1971 Disability Screening 1971 Diabetes: Foot Exam 1981 Eye Exam 1981 Alcohol/Substance Use Screening 1983 Hepatitis A Vaccines (1 of 2 - Risk 2-dose series) 1990 Hepatitis B Vaccines (1 of 3 - 19+ 3-dose series) 1990 Pap Smear 02/17/1992 Dental X-Ray: Bitewings 04/23/2020 04/22/2019 RSV Patients and Patients Aged 60 years or older (1 - Risk 50-74 years 1-dose series) 2021 Dental X-Ray: Full Mouth 04/23/2022 04/22/2019 Mammogram 05/27/2022 05/27/2020, 02/21/2019 Diabetes: Urine Protein Screening 06/28/2023 06/27/2022, 07/27/2021, 11/12/2019 Dental Oral Exam 07/22/2023 01/20/2023, 04/22/2019 Depression Monitoring 02/02/2024 08/02/2023, 024 Cervical Cancer Screening 02/21/2024 HPV/Cotest 02/21/2024 02/20/2019 FOBT 03/08/2024 03/08/2023 Lipid Panel 07/16/2024 07/17/2023 Diabetes: Hemoglobin A1C 09/16/2025 025, 08/02/2023, 07/17/2023, Additional history exists SDOH Screening 11/08/2025 11/08/2024 Colorectal Cancer Screening 03/08/2026 FIT DNA/Cologuard 03/08/2026 03/08/2023 Tobacco Screening 03/19/2026 03/19/2025 DTaP/Tdap/Td Vaccines (2 - Td or Tdap) 02/18/2030 02/19/2020 Zoster Vaccines Completed 11/05/2021, 08/25/2021 Pneumococcal Vaccine: 50+ Years Completed 11/10/2022, 02/19/2020 HIV Screening Completed 07/19/2023 Hepatitis C Screening Completed 07/19/2023 COVID-19 Vaccine Completed 03/19/2025, 10/2020, 11/20/2020, Additional history exists Influenza Vaccine Completed 03/19/2025, , 11/30/2021, Additional history exists HIB Vaccines Aged Out No longer eligi ble based on patient's age to complete this topic HPV Vaccines Aged Out No longer eligi ble based on patient's age to complete this topic IPV Vaccines Aged Out No longer eligi ble based on patient's age to complete this topic Meningococcal B Vaccine Aged Out No l onger eligible based on patient's age to complete [...] 5.9( 5 9:46 AM EST) No Michelle Alegria, FabioD Help patients manage their type 2 diabetes [...] Plan Weekly blood pressure task No Ellyn Mckeon, PharmD Patient has chronic kidney disease Care Plan Patient has chronic kidney disease No Ellyn Mckeon, PharmD Patient has chronic kidney disease Care Plan Patient has chronic kidney disease No Ellyn Mckeon, PharmD Weekly blood pressure task Care Plan Weekly blood pressure task No Adina Conti, MINA Weekly blood pressure task Care Plan Weekly blood pressure task No Adina Conti, RN Patient has chronic kidney disease Care [...] has chronic kidney disease No Mona Ivory SALES REP Patient has chronic kidney disease Care Plan Patient has chronic kidney disease No Mona Ivory SALES REP Weekly blood pressure task Care Plan Weekly blood pressure task No Mona Ivory SALES REP Weekly blood pressure task Care Plan Weekly blood pressure task No Cachorro Mona SALES REP Patient has chronic kidney disease Care Plan [...] Weekly blood pressure task No Mona Ivory SALES REP Patient has chronic kidney disease Care Plan [...] Care Plan Weekly blood pressure task No JesusShira alexandre, SALES REP Patient has chronic kidney disease Care Plan [...] Weekly blood pressure task No Toyin Pollard, CONCAVING MACHINE OPERATOR Weekly blood pressure task Care Plan Weekly blood pressure task No Atul Toyin, CONCAVING MACHINE OPERATOR Patient has chronic kidney disease Care Plan Patient has chronic kidney disease No Atul Toyin, CONCAVING MACHINE OPERATOR Patient has chronic kidney disease Care Plan Patient has chronic kidney disease No John Pollardle, CONCAVING MACHINE OPERATOR Procedures Procedure Name Priority Date/Time Associated Diagnosis Comments POCT GLYCATED HEMOGLOBIN, TOTAL Routine 03/19/2025 9:46 AM EST Type 2 diabetes mellitus with other specified complication, with long-term current use of insulin ([facility]) POCT GLUCOSE (CPT-94775) Routine 03/19/2025 9:45 AM EST Type 2 diabetes mellitus with other specified complication, with long-term current use of insulin (HCC) HEPATITIS C AB W/REFL TO HCV RNA, QN, PCR Routine 07/19/2023 12:30 PM EDT Healthcare maintenance HIV 1/2 ANTIGEN/ANTIBODY, FOURTH GENERATION W/RFL Routine 07/19/2023 12:30 PM EDT Healthcare maintenance LIPID PANEL, STANDARD Routine 07/17/2023 4:09 PM EDT Type 2 diabetes mellitus with other specified complication, with long-term current use of insulin (CMS/HCC) LAB COLOGUARD COLON CANCER SCREEN Routine 03/08/2023 3:30 PM [...] Relevant to Health Maintenance Results * (ABNORMAL) POCT Hgb A1c (03/19/2025 9:46 AM EST) Hemoglobin A1C 5.9(A) 4.0 - 5.7 % QC Media Lot # [id number] Lot# Expiration Date [id number] Blood 03/19/2025 9:46 AM EST Toyin MIRAMONTESP POINT OF CARE TEST ENTER/EDIT ORDERABLES Final Result * POCT Glucose (03/19/2025 9:45 AM EST) Glucose Blood, POC 145 60 - 200 mg/dL QC Media Lot # [id number] Lot# Expiration Date [id number] Blood Capillary blood specimen / Unknown 03/19/2025 9:45 AM EST Toyin Pollard CONCAVING MACHINE OPERATOR POINT OF CARE TEST ENTER/EDIT ORDERABLES Final Result * Hepatitis C Antibody with Reflex to HCV, RNA, Quantitative, Real-Time PCR (07/19/2023 12:30 PM EDT) Pathologist [facility] Hepatitis C Antibody Nonreactive Nonreactive [facility] Comment:Antibodies to HCV no t detected; does not exclude early acuteHCV infection. Blood Venous blood specimen / Unknown 07/19/2023 12:30 PM EDT 07/19/2023 1:00 PM EDT Agustina Toribio MD LAB BLOOD ORDERABLES Final Res ult [facility] [address] [place] [phone] * HIV-1/2 Antigen and Antibodies, Fourth Generation, with Reflexes (07/19/2023 12:30 PM EDT) [facility] HIV AB/AG Nonreactive Nonreactive [facility] Comment:HIV-1 p24 Ag and/or HIV-1/HIV-2 Ab not detected.A test result that is nonreactive does not exclude thepossibility of exposure to or infection with HIV-1 and/orHIV-2. Nonreactive results in this assay for individualswith prior exposure to HIV-1 and/or HIV-2 may be due toantigen and antibody levels that are below the limit ofdetection of this assay.[facility] HIV Ag/Ab Combo assay result andsupplemental assay results should be interpreted inconjunction with the patient's clinical presentation,history and other laboratory results. If the results areinconsistent with clinical evidence, additional testing issuggested to confirm the result. Blood Venous blood specimen / Unknown 07/19/2023 12:30 PM EDT 07/19/2023 1:00 PM EDT us Agustina Toribio MD LAB BLOOD ORDERABLES Final Res ult Performing Organization Address [facility] Co de Phone Number [facility] [address] [place] [address] [phone] * (ABNORMAL) Lipid Panel, Standard (07/17/2023 4:09 PM EDT) Triglycerides 171(H) <150 mg/dL [facility] Comment:Desirable Triglyceri de: less than 150 mg/dLBorderline High Triglyceride 150-199 mg/dLHigh Triglyceride: 200-499 mg/dLVery High Triglyceride: greater than or equal to 5OO mg/dL Cholesterol 176 <200 mg/dL [facility] Comment:Desirable Cholestero l: less than 200 mg/dLBorderline High Cholesterol: 200-239 mg/dLHigh Cholesterol: greater than 239 mg/dL LDL Cholesterol Calculated 77 <100 mg/dL [facility] Comment:Desirable LDL: less than 100 mg/dLNear Optimal/Above Optimal LDL: 110- 129 mg/dLBorderline High LDL: 130-159 mg/dLHigh LDL: 160-189 mg/dLVery High LDL: greater than or equal to 190 mg/dL HDL Cholesterol 65 >40 mg/dL [facility] Comment:Desirable HDL: great er than 40 mg/dL Note: This HDL assay may give artificially low results in patients with liver disease. Blood Venous blood specimen / Unknown 07/17/2023 4:09 PM EDT 07/17/2023 5:46 PM EDT us Agustina Toribio MD LAB BLOOD ORDERABLES Final Res ult Performing Organization Address City/[facility]/ZIP Co de Phone Number [facility] [address] [place] [address] [phone] * Cologuard?? colon cancer screening (03/08/2023 3:30 PM EST) Cologuard Result Negative Negative 03/16/20 9:24 AM EST [employer] (CLIA #:[id number]) Comment: NEGATIVE TEST RESULT. A negative Cologuard result indicates a low likelihood that a colorectal cancer (CRC) or advanced adenoma (adenomatous polyps with more advanced pre-malignant features) is present. The chance that a person with a negative Cologuard test has a colorectal cancer is less than 1 in 1500 (negative predictive value >99.9%) or has an advanced adenoma is less than 5.3% (negative predictive value 94.7%). These data are based on a prospective cross-sectional study of 10,000 individuals at average risk for colorectal cancer who were screened with both Cologuard and colonoscopy. (Kevin Juarez. et al, N Engl J Med 2014;370(14):9822-8708) The normal value (reference range) for this assay is negative. COLOGUARD RE-SCREENING RECOMMENDATION: Periodic colorectal cancer screening is an important part of preventive healthcare for asymptomatic individuals at average risk for colorectal cancer. Following a negative Cologuard result, the [place] [employer] and U.S. Multi-Society Task Force screening guidelines recommend a Cologuard re-screening interval of 3 years. References: [employer] Guideline for Colorectal Cancer Screening: https://www.cancer.org/cancer/vuvob-wdqwxz-mbqeze/herfdidno-luokexclb-stqhhyh/ac s-rec ommendations.html.; Miguel ARTIS, Maria Elena CHEW, Lester MaherK, Colorectal Cancer Screening: Recommendations for Physicians and Patients from the U.S. Multi-Society Task Force on Colorectal Cancer Screening , Am J Gastroenterology 2017; 112:5507-0138. TEST DESCRIPTION: Composite algorithmic analysis of stool DNA-biomarkers with hemoglobin immunoassay. Quantitative values of individual biomarkers are not [...] were screened with both Cologuard and colonoscopy. (Keivn Josue et al, N Engl J Med 2014;370(14):1046-0138.) Cologuard may produce a false negative or false positive result (no colorectal cancer or precancerous polyp present at colonoscopy follow up). A negative Cologuard test result does not guarantee the absence of CRC or advanced adenoma (pre-cancer). The current Cologuard screening interval is every 3 years. ([place] [employer] and U.S. Multi-Society Task Force). Cologuard performance data in a 10,000 patient pivotal study using colonoscopy as the reference method can be accessed at the following location: www.Yatedo/results. Additional description of the Cologuard test process, warnings and precautions can be found at www.cologuard.com. Stool specimen (specimen) 03/08/2023 3:30 PM EST 03/09/2023 7:12 PM EST Toyin Pollard [facility]LECULAR DIAGNOST[facility] DRE FRY Final Result [employer] (CLIA #:[id number]) [place] [address], * Mammography Report 1 (05/27/2020 2:30 PM [...] mg/dL [facility] Comment: Reference Range: Reference Range Not established Microalb/Creat Ratio NOTE <30 mcg/mg creat [facility] Comment: NOTE: The urine albumin value is less than 0.2 mg/dL therefore we are unable to calculate excretion and/or creatinine ratio. The ADA defines abnormalities in albumin excretion as follows: Category Result (mcg/mg creatinine) Normal <30 Microalbuminuria 30-299 Clinical albuminuria > OR = 300 The ADA recommends that at least two of three specimens collected within a 3-6 month period be abnormal before considering a patient to be within a diagnostic category. 11/12/2019 10:2 7 AM EDT aSlly Meade MD LAB URINE ORDERABLES Final Resul t [facility] [address] * HPV mRNA E6/E7 (02/20/2019 8:58 AM EST) HPV mRNA E6/E7 Not Detected NOT DETECTED [facility] Comment: This test was performed using the APTIMA(R) HPV Assay ([employer] This assay detects E6/E7 viral messenger RNA (mRNA) from 14 high-risk HPV types (16,18,31,33,35,39,45,51, 52,56,58,59,66,68). For additional information please refer to: http://education.Kidos/faq/PES652f7 (This link is being provided for informational/ educational purposes only.) The analytical performance characteristics of this assay have been determined by [facility] [place], [place]. The modifications have not been cleared or approved by the FDA. This assay has been validated pursuant to the CLIA regulations and is used for clinical purposes. Test Performed by [facility], [facility], [address] [place] [address] Randy Willson M.D., Ph.D., Director of Laboratories , [facility] [id number] Please note: Effective 11/30/2015, HPV testing will be performed using [employer]'s APTIMA test which targets mRNA. Detecting mRNA instead of DNA, as in older methods, offers significant improvements in specificity. 02/20/2019 8:58 AM EST us Carina Fontaine CNM HISTORICAL/NON ORDERABLE LABS Final Result Performing Organization Address City/State/ZIP Co ms Phone Number [facility] [address] from Last 3 Months or Most Recently Relevant to Health Maintenance Additional Health Concerns Active Problems Noted Date [...] 03/19/2025 Patient has chronic kidney disease 03/19/2025 Insurance [facility] C[place] STAND ADULT Care Teams C D Still Operator Relationship Specialty Start Date End Date Toyin Pollard FNP [address] [place] [address] PCP - General Family Medicine 01/11/21 Satish Brennan MD [address] [place], [place] Endocrinology 02/22/24 Jacob Morrow [address] [place], [place] Pulmonary Disease 02/22/24 Nicolasa Escobar MD [address] [place] [address] Neurology 02/22/24 Shen Davis MD [address] [place] [address] Nephrology 02/22/24 Ellyn Connolly Counter PersonHopper Feeder 08/17/23 [employer] 08/14/24
--- OUTSIDE RECORDS SUMMARY | 2025-03-19 10:58 | XMS_ITS | Encounter Summary ---
Author Organization [employer] Address [address] [facility] 7t [place] [address] Care Team Providers Care Race Steward Name Role Phone Toyin Pollard Primary Care Provider Satish Brennan MD Unavailable [phone] Jacob Morrow Unavailable [phone] Nicolasa Escobar MD Unavailable Shen Davis MD Unavailable [phone] Reason for Visit * Reason Onset Date Comments FYI 01/07/2025 Encounter Details Date Type Department Care Team (Late st Contact Info) Description 01/07/2025 Telephone [facility] MEDICINE [address] [place] [address] Toyin Pollard FNP [address] [place], [place] [phone] FYI Social History Tobacco Use Types Packs/Day [...] encounter Miscellaneous Notes * Telephone Encounter - Quiana Howard - 01/07/2025 9:23 AM EDT TC from [facility] stating that [facility]. She mentionedthat it has been faxed a few times before and that the paperwork requires a medical necessity letter. documented in this encounter Plan of Treatment Upcoming Encounters Date Type Department Care Team (Late st Contact Info) Description 05/19/2025 11:00 AM EST Telemedicine [facility] CHC MED & PEDS [address] [place] [address] Margret Hector, RN [address] [place] [address] documented as of this encounter Goals Goal [...] documented as of this encounter Care Teams Race Steward Relationship Specialty Start Date End Date Toyin Pollard FNP [address] [place] [address] PCP - General Family Medicine 01/11/21 Satish Brennan MD [address] [place] [address] Endocrinology 02/22/24 Jacob Morrow 5 [place] [address] Pulmonary Disease 02/22/24 Nicolasa Escobar MD [address] [place] [address] Dr [facility] [address] [place] [address] Neurology 02/22/24 Shen Davis MD [address] [place] [address] Nephrology 02/22/24 Ellyn Connolly Rim BusterShop Helper 08/17/23 [employer] 08/14/24 documented as of this encounter
--- OUTSIDE RECORDS SUMMARY | 2025-03-19 10:58 | XMS_ITS | Encounter Summary ---
Author Organization [employer] Address [address] [facility] 7t [place] [address] Care Team Providers Care Data Entry Processor Name Role Phone Toyin Pollard Primary Care Provider Satish Brennan MD Unavailable Jacob Morrow Unavailable [phone] Nicolasa Escobar MD Unavailable [phone] Shen Davis MD Unavailable [phone] Encounter Details Date Type Department Care Team (Late st Contact Info) Description 04/22/[address] [facility] MEDICINE [address] [place] [address] Toyin Pollard FNP [address] [place], [place] [phone] Social History Tobacco Use Types Packs/Day Years [...] Description 05/19/2025 11:[address] [facility] CHC MED & PEDS [address] [place] [address] Margret Hector, RN 505 [place] [address] documented as of this encounter Goals Goal [...] as of this encounter Care Teams Data Entry Processor Relationship Specialty Start Date End Date Toyin Pollard FNP [address] [place] [address] PCP - General Family Medicine 01/11/21 Satish Brennan MD [address] [place] [address] Endocrinology 02/22/24 Jacob Morrow [address] [place] [address] Pulmonary Disease 02/22/24 Nicolasa Escobar MD [address] [place] [address] [address] Neurology 02/22/24 Shen Davis MD [address] [place] [address] Drive [address] [place] [address] Nephrology 02/22/24 Ellyn Connolly Turkey Egg GathererFire Chief 08/17/23 [facility] 01/11/24 08/07/24 [employer] 08/14/24 documented as of this encounter
--- OUTSIDE RECORDS SUMMARY | 2025-03-19 10:58 | XMS_ITS | Encounter Summary ---
Author Organization [employer] Address [address] [facility] 7t [place] [address] Care Team Providers Care Center Mgr Name Role Phone Toyin Pollard Primary Care Provider [phone] Satish Brennan MD Unavailable Jacob Morrow Unavailable [phone] Nicolasa Escobar MD Unavailable Shen Davis MD Unavailable [phone] Reason for Visit * Reason Onset Date Comments Pt-1 01/24/2025 Encounter Details Date Type Department Care Team (Late st Contact Info) Description 01/24/2025 Telephone [facility] MEDICINE [address] [place], [place] [phone] Toyin Plolard FNP [address] [place], [place] [phone] Pt-1 Social History Tobacco Use Types Packs/Day Years [...] * Telephone Encounter - Ced Morrow - 01/24/2025 11:01 AM EST Patient calling requesting PT1 Home Address verified: Y/N: Yes Provider name or facility name: [facility] Facility Address: [address] [place] [address] Escort needed: Y/N: No Mirana with [facility] is requesting a stretcher and or a gurney due to pt being morbidly obese. Visits: 2 times a month documented in this encounter Plan of Treatment Upcoming Encounters Date Type Department Care Team ([facility] Contact Info) Description 05/19/2025 11:00 AM EST Telemedicine [facility] MED [facility] PEDS 505 [place] [address] Margret Hector, RN 505 [place] [address] documented as of this encounter Goals Goal Patient Goal Type Associated Problems Recent Progress Patient-Stated? Author Hemoglobin A1c < 7 Result Component 5.9(03/19/2025 9:46 AM EST) Michelle Rodarte, FabioD documented as of this encounter Visit Diagnoses Not on filedocumented in this encounter Additional Health Concerns Assessment Noted Time PHQ-9 Depression Total Score: 13 024 4:37 PM EDT documented as of this encounter Care Teams Center Mgr Relationship Specialty Start Date End Date Toyin Pollard FNP [address] [place] [address] PCP - General Family Medicine 01/11/21 Satish Brennan MD [address] [place] [address] Endocrinology 02/22/24 Jacob Morrow [address] [place] [address] Pulmonary Disease 02/22/24 Nicolasa Escobar MD [address] [place] [address] Dr [address] [place] [address] Neurology 02/22/24 Shen Davis MD [address] [place] [address] Nephrology 02/22/24 Ellyn Connolly Hybrid Powertrain Development EngineerFollow Up Clerk 08/17/23 [employer] 08/14/24 documented as of this encounter
--- OUTSIDE RECORDS SUMMARY | 2025-03-19 10:58 | XMS_ITS | Encounter Summary ---
Author Organization [employer] Address [address] [facility] 7t [place] [address] Care Team Providers Care Community Specialist Name Role Phone Toyin Pollard Primary Care Provider Satish Brennan MD Unavailable [phone] Jacob Morrow Unavailable [phone] Nicolasa Escobar MD Unavailable Shen Davis MD Unavailable [phone] Reason for Visit * Reason Onset Date Comments Forms/questionnaires 03/03/2022 Encounter Details Date Type Department Care Team (Late st Contact Info) Description 03/03/2022 Telephone [facility] MEDICINE [address] [place] [address] Toyin Pollard FNP 505 [place], [place] [phone] Forms/questionnaires Social History Tobacco Use Types Packs/Day [...] 12:07 PM EST Tc from Naye from [facility] requesting status on 485 form . States they have faxed several times since November and have not yet received back . Informs needs by 03/15/22 if not pt will be discharged from services. Best contact number [phone]. There fax number is [phone] . documented in this encounter Plan of Treatment Upcoming Encounters Date Type Department Care Team (Late st Contact Info) Description 05/19/2025 11:00 AM EST Telemedicine [facility] MED [facility] PEDS 505 [place] [address] Margret Hector, RN 505 [place] [address] documented as of this encounter Visit Diagnoses Not on filedocumented in this encounter Care Teams Community Specialist Relationship Specialty Start Date End Date Toyin Pollard FNP [address] [place] [address] PCP - General Family Medicine 01/11/21 Satish Brennan MD [address] [place] [address] Endocrinology 02/22/24 Jacob Morrow 5 [place] [address] Pulmonary Disease 02/22/24 Nicolasa Escobar MD [address] [place] [address] Dr [address] [place] [address] Neurology 02/22/24 Shen Davis MD [address] [place] [address] Nephrology 02/22/24 Ellyn Connolly Chief Controller CenterFence Machine Operator 08/17/23 [facility] 01/11/24 01/21/24 [facility] 01/11/24 08/07/24 [employer] 08/14/24 documented as of this encounter
--- OUTSIDE RECORDS SUMMARY | 2025-03-19 10:58 | XMS_ITS | Encounter Summary ---
Author Organization [employer] Address [address] [facility] 7t [place] [address] Care Team Providers Care Bonbon Cream Warmer Name Role Phone Toyin Pollard Primary Care Provider [phone] Satish Brennan MD Unavailable [phone] Jacob Morrow Unavailable [phone] Nicolasa Escobar MD Unavailable [phone] Shen Davis MD Unavailable [phone] Reason for Visit * Reason Onset Date Comments Nurse Triage 03/08/2023 Encounter Details Date Type Department Care Team (Late st Contact Info) Description 03/08/2023 Telephone [facility] MEDICINE [address] [place] [address] Toyin Pollard FNP 505 [place], [place] [phone] Nurse Triage Social History Tobacco Use Types [...] Upcoming Encounters Date Type Department Care Team ([facility] st Contact Info) Description 05/19/2025 11:00 AM EST Telemedicine [facility] MED & PEDS 505 [place] [address] Margret Hector, RN 505 [place] [address] documented as of this encounter Goals Goal [...] documented as of this encounter Care Teams Bonbon Cream Warmer Relationship Specialty Start Date End Date Toyin Pollard FNP [address] [place] [address] PCP - General Family Medicine 01/11/21 Satish Brennan MD [address] [place] [address] Endocrinology 02/22/24 Jacob Morrow [address] [place] [address] Pulmonary Disease 02/22/24 Nicolasa Escobar MD [address] [facility] [address] [address] Neurology 02/22/24 Shen Davis MD [address] [place] [address] Nephrology 02/22/24 Ellyn Connolly Bathing Suit MakerMine Patrol 08/17/23 [facility] 01/11/24 01/21/24 [facility] 01/11/24 08/07/24 [employer] 08/14/24 documented as of this encounter
--- OUTSIDE RECORDS SUMMARY | 2025-03-19 10:58 | XMS_ITS | Encounter Summary ---
Author Organization [employer] Address [address] [facility] 7t [place] [address] Care Team Providers Care Forging Press Setter Up Name Role Phone Toyin Pollard Primary Care Provider [phone] Satish Brennan MD Unavailable [phone] Jacob Morrow Unavailable [phone] Nicolasa Escobar MD Unavailable [phone] Shen Davis MD Unavailable [phone] Reason for Visit * Reason Comments Med Refill Encounter Details Date Type Department Care Team ([facility] st Contact Info) Description 07/06/2024 Refill [facility] MED & PEDS [address] [place], [place] [phone] Toyin Pollard FNP 505 [place], [place] [phone] Migraine without status migrainosus, not intractable, unspecified [...] Description 05/19/2025 11:00 AM EST Telemedicine [facility] MED & PEDS [address] [place] [address] Margret Hector RN 505 [place] [address] documented as of this encounter Goals Goal [...] documented as of this encounter Care Teams Forging Press Setter Up Relationship Specialty Start Date End Date Toyin Pollard FNP 230 [place] [address] PCP - General Family Medicine 01/11/21 Satish Brennan MD [address] [place] [address] Endocrinology 02/22/24 Jacob Morrow [address] [place] [address] Pulmonary Disease 02/22/24 Nicolasa Escobar MD [address] [place] [address] [address] Neurology 02/22/24 Shen Davis MD [address] [place] [address] Nephrology 02/22/24 Ellyn Connolly Porcelain TechnicianLabeling Specialist 08/17/23 [facility] 01/11/24 08/07/24 [employer] 08/14/24 documented as of this encounter
--- OUTSIDE RECORDS SUMMARY | 2025-03-19 10:59 | XMS_ITS | Encounter Summary ---
Author Organization [employer] Address [address] [facility] 7t [place] [address] Care Team Providers Care Flexographic Press Operator Name Role Phone Toyin Pollard Primary Care Provider [phone] Satish Brennan MD Unavailable [phone] Jacob Morrow Unavailable [phone] Nicolasa Escobar MD Unavailable Shen Davis MD Unavailable [phone] Reason for Visit * Reason Onset Date Comments Referral 01/08/2024 Encounter Details Date Type Department Care Team ([facility] st Contact Info) Description 01/08/2024 Telephone [facility] MEDICINE [address] [place] [address] Toyin Pollard FNP 505 [place], [place] [phone] Referral Social History Tobacco Use Types Packs/Day [...] - 01/08/2024 2:01 PM EDT Tc from [facility] from [facility] indicates they will process the referral for mpt therapy. documented in this encounter Plan of Treatment Upcoming Encounters Date Type Department Care Team (Late st Contact Info) Description 05/19/2025 11:00 AM EST Telemedicine [facility] MED & PEDS 505 [place] [address] Margret Hector, MINA 505 [place] [address] documented as of this encounter Goals Goal [...] documented as of this encounter Care Teams Flexographic Press Operator Relationship Specialty Start Date End Date Toyin Pollard FNP 230 [place] [address] PCP - General Family Medicine 01/11/21 Satish Brennan MD [address] [place] [address] Endocrinology 02/22/24 Jacob Morrow 5 [place] [address] Pulmonary Disease 02/22/24 Nicolasa Escobar MD [address] [place] [address] Dr [address] [place] [address] Neurology 02/22/24 Shen Davis MD [address] [place] [address] Nephrology 02/22/24 Ellyn Connolly Hog DriverMiner Pick 08/17/23 [facility] 01/11/24 01/21/24 [facility] 01/11/24 08/07/24 [employer] 08/14/24 documented as of this encounter
--- OUTSIDE RECORDS SUMMARY | 2025-03-19 10:59 | XMS_ITS | Encounter Summary ---
Author Organization [employer] Address [address] [facility] 7t [place] [address] Care Team Providers Care Inspector Materials And Processes Name Role Phone Toyin Pollard Primary Care Provider [phone] Satish Brennan MD Unavailable [phone] Jacob Morrow Unavailable [phone] Nicolasa Escobar MD Unavailable Shen Davis MD Unavailable [phone] Reason for Visit * Reason Comments Med Refill Encounter Details Date Type Department Care Team (Late st Contact Info) Description 04/12/2024 Refill [facility] MEDICINE 230 [place] [address] Toyin Pollard FNP [address] [place], [place] [phone] Long-term current use of opiate analgesic (Primary [...] the past 12 months, has t he [employer], gas, oil or water [employer] threatened to shut off services in your [...] 04/12/2024 5:16 PM EST Please 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 documented in this encounter Plan of Treatment Upcoming Encounters Date Type Department Care Team (Late st Contact Info) Description 05/19/2025 11:00 AM EST Telemedicine [facility] MED & PEDS 505 [place] [address] Margret Hector, RN 505 [place] [address] documented as of this encounter Goals Goal [...] documented as of this encounter Care Teams Inspector Materials And Processes Relationship Specialty Start Date End Date Toyin Pollard FNP 230 [place] [address] PCP - General Family Medicine 01/11/21 Satish Brennan MD [address] [place] [address] Endocrinology 02/22/24 Jacob Morrow 5 [place] [address] Pulmonary Disease 02/22/24 Nicolasa Escobar MD [address] [place] [address] [address] Neurology 02/22/24 Shen Davis MD [address] [place] [address] Nephrology 02/22/24 Ellyn Connolly Editor MapProduct Safety Lead 08/17/23 [facility] 01/11/24 08/07/24 [employer] 08/14/24 documented as of this encounter
--- OUTSIDE RECORDS SUMMARY | 2025-03-19 10:59 | XMS_ITS | Encounter Summary ---
Author Organization [employer] Address [address] [facility] 7t [place] [address] Care Team Providers Care Mobile Battery Technician Name Role Phone Toyin Pollard Primary Care Provider Satish Brennan MD Unavailable Jacob Morrow Unavailable [phone] Nicolasa Escobar MD Unavailable Shen Davis MD Unavailable [phone] Reason for Visit * Reason Onset Date Comments Durable Medical Equipment 12/19/2023 Encounter Details Date Type Department Care Team ([facility] st Contact Info) Description 12/19/2023 Telephone [facility] [address] [place], [place] [phone] Toyin Pollard FNP 505 [place], [place] [phone] Durable Medical Equipment Social History Tobacco Use [...] the past 12 months, has t he [employer], gas, oil or water company threatened to [...] - 12/19/2023 10:27 AM EDT Tc from [facility] director of casework department calling to see if DME can be which to mass surgical supply due to [employer] not doing delivery. DME Disposable bed pads documented in this encounter Plan of Treatment Upcoming Encounters Date Type Department Care Team (Late st Contact Info) Description 05/19/2025 11:00 AM EST Telemedicine [facility] MED & PEDS 505 [place] [address] Margret Hector RN 505 [place] [address] documented as of this encounter Goals Goal [...] documented as of this encounter Care Teams Mobile Battery Technician Relationship Specialty Start Date End Date Toyin Pollard FNP 230 [place] [address] PCP - General Family Medicine 01/11/21 Satish Brennan MD [address] [place] [address] Endocrinology 02/22/24 Jacob Morrow 5 [place] [address] Pulmonary Disease 02/22/24 Nicolasa Escobar MD [address] [place] [address] [address] [place] [address] Neurology 02/22/24 Shen Davis MD [address] [place] [address] Nephrology 02/22/24 Ellyn Connolly Car PorterPan Washer Hand 08/17/23 [facility] 01/11/24 01/21/24 [facility] 01/11/24 08/07/24 [employer] 08/14/24 documented as of this encounter
--- OUTSIDE RECORDS SUMMARY | 2025-03-19 10:59 | XMS_ITS | Encounter Summary ---
Author Organization [employer] Address [address] [facility] 7t [place] [address] Care Team Providers Care Size Maker Name Role Phone Toyin Pollard Primary Care Provider Satish Brennan MD Unavailable Jacob Morrow Unavailable [phone] Nicolasa Escobar MD Unavailable [phone] Shen Davis MD Unavailable [phone] Reason for Visit * Reason Onset Date Comments Durable Medical Equipment 02/19/2024 Encounter Details Date Type Department Care Team (Late st Contact Info) Description 02/19/2024 Telephone [facility] MEDICINE 230 [place], [place] [phone] Toyin Pollard FNP 505 [place], [place] [phone] Durable Medical Equipment Social History Tobacco Use [...] Ivory LPN - 02/20/2024 10:21 AM EST Circus Laborer did see Rx was sent to [phone] pt has current RX no need for updates, functional tester typewriters [place] at number below. However no answer and mail box full . Pt has appt tomorrow pt should discussthis need sending to PCP as FYI . Tc from [facility] requesting a new order for pt to be sent over for Poise sanitary pads , adult diapers oversized . Any questions please get in contact with [facility] at the callback number above. Callback [phone] * Telephone Encounter - Christina Paul - 02/19/2024 3:28 PM EST Tc from [facility] ([employer] requesting a new order for pt to be sent over for Poise sanitary pads , adult diapers oversized . Any questions please get in contact with [facility] at the callback number above. Callback [phone] documented in this encounter Plan of Treatment Upcoming Encounters Date Type Department Care Team (Late st Contact Info) Description 05/19/2025 11:00 AM EST Telemedicine [facility] MED & PEDS 505 [place] [address] Margret Hector, RN [address] [place], [place] documented as of this encounter Goals [...] documented as of this encounter Care Teams Size Maker Relationship Specialty Start Date End Date Toyin Pollard FNP [address] [place] [address] PCP - General Family Medicine 01/11/21 Satish Brennan MD [address] [place] [address] Endocrinology 02/22/24 Jacob Morrow 5 [place] [address] Pulmonary Disease 02/22/24 Nicolasa Escobar MD [address] [place] [address] Dr [address] [place] [address] Neurology 02/22/24 Shen Davis MD [address] [place] [address] Nephrology 02/22/24 Ellyn Connolly Manager ChangeMolding Technician 08/17/23 [facility] 01/11/24 08/07/24 [employer] 08/14/24 documented as of this encounter
[2025-03-19 11:32] LABS: MANUAL DIFF FLAG NO
[2025-03-19 11:45] LABS: Hematocrit 32.6 % (37.0-47.0); Hemoglobin 10.4 g/dl (12.0-16.0); Imm Gran Abs Auto 0.14 X10*3/uL (0.00-0.03); Imm Gran Pct Auto 2.1 % (0.0-0.4); Lymphocytes Absolute Auto 3.0 X10*3/uL (1.2-4.9); Mean Corpuscular HGB Conc 31.9 g/dl (31.0-35.0); Mean Corpuscular Hemoglobin 26.1 pg (27.0-33.0); Mean Corpuscular Volume 81.7 fL (80.0-98.0); NRBC Abs Auto 0.000 X10*3/uL (0.0-0.012); NRBC Pct Auto 0.0 /100WBC (0.0-0.2); Platelet Count 390 X10*3/uL (160-400); Red Blood Count 3.99 X10*6/uL (4.20-5.50); White Blood Count 6.7 X10*3/uL (4.8-10.8)
[2025-03-19 14:55] LABS: Cholesterol 157 mg/dL (<200); HDL Cholesterol 36 mg/dL (>40); Triglycerides 223 mg/dL (<150)
[2025-03-19 15:01] LABS: Free T4 (Free Thyroxine) 0.73 ng/dL (0.71-1.85)
[2025-03-19 21:15] LABS: Alanine Aminotransferase 12 U/L (0-31); Albumin Level 3.9 g/dL (3.5-5.0); Alkaline Phosphatase 45 U/L (39-117); Anion Gap 15 (12-20); Aspartate Amino Transferase 20 U/L (5-31); Blood Urea Nitrogen 8 mg/dL (9-16); Calcium 9.3 mg/dL (8.4-10.2); Carbon Dioxide 27 mmol/L (22-29); Chloride 95 mmol/L (96-108); Cholesterol 158 mg/dL (<200); Estimated Glomerular Filt Rate > 60; HDL Cholesterol 36 mg/dL (>40); Potassium 4.3 mmol/L (3.3-5.1); Sodium 133 mmol/L (135-145); Total Protein 6.6 g/dL (6.5-8.0); Triglycerides 221 mg/dL (<150)
[2025-03-19 21:29] LABS: Thyroid Stimulating Hormone 20.57 uIU/mL (0.32-4.0)
[2025-03-20 05:29] LABS: HBS Num1 4.88 mIU/mL (0-7.99); HBc Num1 9.93 S/CO (0.00-0.79); HBsAGNum1 0.32 S/CO (0.00-0.99); HIV Num 1 0.06 S/CO (0.00-0.99); Hepatitis B Surface Antigen Negative (Negative); ~HepC Num1 0.13 S/CO (0.00-0.79); ~Hepatitis B Surface Antibody NONREACTIVE (Nonreactive); ~Hepatitis C Antibody Nonreactive (Nonreactive)
[2025-03-20 06:31] LABS: HBc Num2 9.88 S/CO
[2025-03-20 06:46] LABS: HBc Num3 9.75 S/CO
[2025-03-22 18:08] LABS: Hepatitis B Core Antibody IgM NON-REACTIVE (NON-REACTIVE)
== END 2025-03-19 10:00 | disposition home or self-care (01) ==
LOC: HO.HHCL 09:59
PROVIDERS: Nurse Practitioner Adult Health; PCP Registered Nurse; Visit Provider Registered Nurse
DX: Z00.00 Encounter for general adult medical examination without abnormal findings (principal); E11.9 Type 2 diabetes mellitus without complications; E03.9 Hypothyroidism, unspecified; E78.5 Hyperlipidemia, unspecified; Z11.3 Encounter for screening for infections with a predominantly sexual mode of transmission; Z11.4 Encounter for screening for human immunodeficiency virus [HIV]; Z11.59 Encounter for screening for other viral diseases
CPT/HCPCS: 36415; 80048; 80053; 80061; 83036; 84439; 84443; 85025; 86592; 86704; 86705; 86706; 86803; 87340; 87389